=== PATIENT | female | born 1980 | race Caucasian/White ===

== ENCOUNTER 2018-08-04 22:12 | Inpatient (IN) | payer OTHER ==
[~2018-08-04] VITALS: Ht 152.4 cm; Wt 92.4 kg
[2018-08-04] MEDS ORDERED: ASPIRIN 300 MG SUPP PR STA (22:28)
[2018-08-04] MEDS ORDERED: SOD CHLORIDE 0.9% 500 ML IV STA (22:28)
[2018-08-04] MEDS ORDERED: LORAZEPAM 2 MG INJ IV ONE (22:30)
[2018-08-04] MEDS ORDERED: PROPOFOL 100 ML IV STA (22:31)
[2018-08-04] MEDS ORDERED: MIDAZOLAM (DRIP) 50 mg/50 mL 50 ML IV STA (22:31)
[2018-08-04] MEDS ORDERED: LORAZEPAM 2 MG INJ ONE (22:31)
--- NOTE | 2018-08-04 22:57 | ERD ---
ER Documentation Chief Complaint Chief Complaint BIBA WITH ROSC. BVM IN PROGRESS, IO IN RIGHT LE. HPI 38-year-old woman brought in by EMS from home after collapsing in the kitchen, EMS state her initial rhythm was ventricular fibrillation, she required 2 rounds of cardioversion and intraosseous epinephrine and regained spontaneous circulation at the scene. Her who was later at the bedside stated she had chest pain for most of the day today. She does have a history of diabetes mellitus, hypertension, obesity, and "heart problems". She has had no recent fevers or chills, no vomiting or diarrhea, no complaints of shortness of breath. Patient was transported here mostly unresponsive without further complications. ROS All systems reviewed and are negative except as per history of present illness. Allergies Allergies: Coded Allergies: Unknown: Unable to obtain (Unverified , 08/04/18) FmHx Family History: diabetes Physical Exam Vitals Vital Signs Date Temp Pulse Resp B/P (MAP) Pulse Ox O2 O2 Flow FiO2 Time Delivery Rate 08/04/18 107 17 99 50 22:33 08/04/18 99.5 135 17 132/98 99 22:12 (109) Physical Exam GENERAL: Well-developed, obese, appears hydrated, unresponsive, afebrile HEENT: Moist mucous membranes, pink conjunctiva, no cervical spine tenderness or step-off tenderness NEURO: Eyes closed, pupils equal round reactive to light, unresponsive, no facial asymmetry CARDIAC: Tachycardic and regular, no murmurs rubs or gallops LUNGS: Clear bilaterally no wheezing crackles or stridor ABDOMEN: Soft nontender, no guarding, no rigidity, no rebound, no psoas sign no obturator sign. SKIN: Warm and dry to touch, no abrasions, contusions, or hematomas, no lacerations, no ecchymosis, no target lesions, and without ulcers EXTREMITIES: No clubbing cyanosis 1+ pitting edema in the lower extremities bilaterally, calves are bilaterally symmetrical PSYCH: Unable to assess Result Diagram: 08/04/186 08/04/186 Results 24 hrs Laboratory Tests Test 08/04/18 22:26 White Blood Count 9.2 10^3/ul Red Blood Count 3.94 10^6/ul Hemoglobin 11.1 g/dl Hematocrit 34.9 % Mean Corpuscular Volume 88.6 fl Mean Corpuscular Hemoglobin 28.2 pg Mean Corpuscular Hemoglobin Concent 31.8 g/dl Red Cell Distribution Width 13.1 % Platelet Count 158 10^3/UL Mean Platelet Volume 13.1 fl Immature Granulocytes % 3.900 % Neutrophils % % Segmented Neutrophils % (Manual) 17 % Lymphocytes % % Lymphocytes % (Manual) 75 % Monocytes % % Monocytes % (Manual) 5 % Eosinophils % % Eosinophils % (Manual) 1 % Basophils % % Basophils % (Manual) 2 % Nucleated Red Blood Cells % 0.0 /100WBC Immature Granulocytes # 0.360 10^3/ul Neutrophils # 10^3/ul Lymphocytes (Manual) 6.9 10^3/ul Lymphocytes # 10^3/ul Monocytes # 10^3/ul Monocytes # (Manual) 0.4 10^3/ul Eosinophils # 10^3/ul Basophils # 10^3/ul Basophils # (Manual) 0.1 10^3/ul Nucleated Red Blood Cells # 10^3/ul Platelet Estimate NORMAL Anisocytosis 1+ Microcytosis 1+ Prothrombin Time 13.5 Sec Prothrombin Time Ratio 1.1 INR International Normalized Ratio 1.02 Activated Partial Thromboplast Time 41.4 Sec Sodium Level 137 mmol/L Potassium Level 4.7 mmol/L Chloride Level 110 mmol/L Carbon Dioxide Level 11 mmol/L Anion Gap 16 Blood Urea Nitrogen 31 mg/dl Creatinine 1.75 mg/dl Est Glomerular Filtrat Rate mL/min 32 mL/min Glucose Level 268 mg/dl Calcium Level 8.7 mg/dl Total Bilirubin 0.1 mg/dl Direct Bilirubin 0.00 mg/dl Indirect Bilirubin 0.1 mg/dl Aspartate Amino Transf (AST/SGOT) 199 IU/L Alanine Aminotransferase (ALT/SGPT) 267 IU/L Alkaline Phosphatase 97 IU/L Troponin I 0.140 ng/ml B-Type Natriuretic Peptide 1240 PG/ML Total Protein 6.1 g/dl Albumin 3.1 g/dl Globulin 3.00 g/dl Albumin/Globulin Ratio 1.03 Lipase 169 U/L Current Medications Medications Dose Sig/Kerline Start Time Status Last (Trade) Ordered Route PRN Stop Time Admin Dose Reason Admin Sodium 500 ml @ Q1H STAT 08/04/18 DC 08/04/18 Chloride 500 mls/hr IV 22:28 22:28 08/04/18 23:27 Aspirin 300 mg ONCE STAT 08/04/18 DC 08/04/18 (Aspirin) MT 22:28 22:48 08/04/18 22:31 Lorazepam 2 mg ONCE ONCE 08/04/18 DC 08/04/18 (Ativan) IV 22:30 22:28 08/04/18 22:31 Lorazepam 2 mg STK-MED 08/04/18 DC (Ativan) ONCE .ROUTE 22:31 08/04/18 22:32 Propofol 100 ml @ ONCE STAT 08/04/18 08/04/18 1.089 mls/ IV 22:31 22:59 hr 08/08/18 18:20 Midazolam 50 ml @ 3 ONCE STAT 08/04/18 HCl mls/hr IV 22:31 08/05/18 15:10 Heparin 10,000 unit STK-MED 08/04/18 DC Sodium ONCE .ROUTE 22:58 (Porcine) 08/04/18 22:59 (Heparin (1000 Units/ml)) Lidocaine 20 ml STK-MED 08/04/18 DC (Xylocaine ONCE .ROUTE 22:58 1% (Mdv) 20 08/04/18 22:59 ml) Iodixanol 100 ml STK-MED 08/04/18 DC (Visipaque ONCE .ROUTE 22:58 Locm) 08/04/18 22:59 Heparin 1,500 ml @ STK-MED 08/04/18 DC Sodium/ ud ONCE .ROUTE 22:58 Sodium 08/04/18 22:59 Chloride Fentanyl 100 mcg STK-MED 08/04/18 DC (Sublimaze) ONCE .ROUTE 22:58 08/04/18 22:59 Midazolam 2 mg STK-MED 08/04/18 DC HCl ONCE .ROUTE 22:58 (Versed) 08/04/18 22:59 Verapamil 5 mg STK-MED 08/04/18 DC HCl ONCE .ROUTE 22:58 (Verapamil) 08/04/18 22:59 1,000 mcg STK-MED 08/04/18 DC Nitroglycerin ONCE .ROUTE 22:59 08/04/18 23:00 (Nitroglyceri n (Intracoronar y)) 250 ml @ TITRATE IV 08/04/18 Norepinephrin 1.875 mls/ 23:15 e hr Verapamil 5 mg STK-MED 08/04/18 DC HCl ONCE .ROUTE 23:09 (Verapamil) 08/04/18 23:10 Eptifibatide 20 ml @ ud STK-MED 08/04/18 DC ONCE .ROUTE 23:46 08/04/18 23:47 Eptifibatide 100 ml @ ud STK-MED 08/04/18 DC ONCE IV 23:46 08/04/18 23:47 Ticagrelor 90 mg STK-MED 08/04/18 DC (Brilinta) ONCE .ROUTE 23:46 08/04/18 23:47 Procedures/MDM IV line was established patient was placed on monitoring analyst rhythm strip revealed a sinus tachycardia at 120 bpm with upright P and T waves. Patient was afebrile. EMS EKG, read by me reveals a sinus tachycardia at 160 bpm, normal axis, right ventricular conduction delay with 1 mm elevations in V3 through V5 concerning for acute ischemia. Endotracheal Intubation by me: Pre assessment performed. See preceding note for details. Pre-oxygenation performed with 100% oxygen RSI: Performed w/o complication or hypoxic events. Medications as ordered. Blade: 4.0 Keven ET Tube: 7.5 cm Depth: 21 cm at the lip Intubation confirmed by colorimetric CO2, equal breath sounds, quiet over the stomach. Code STEMI was immediately called Chest X-ray 1V Interpreted by me: 3 cm above the marisabel ET tube. Normal soft tissue, No pneumothorax. Positive cardiomegaly EKG performed, read by me revealed a sinus tachycardia at 134 bpm, normal axis, narrow QRS complex, no concerning ST elevations or depressions noted. EKG number 2, 15 minutes later revealed a sinus tachycardia at 108 bpm, normal axis, narrow QRS complex, no concerning ST elevations or depressions noted I administered 500 cc normal saline IV and IV sedation with Versed. Patient also received aspirin 300 mg per rectum for cardioprotective measures CBC was normal, electrolytes revealed acute kidney injury with a BUN/creatinine of 31/1.8, liver function tests were normal, troponin positive at 0.1, BNP elevated I spoke to manager continuous improvement Dr. Rashid who agreed to emergent PCI Critical Care: Time: 40 minutes, this was time separate from other billable procedures. Treatments/Evaluations: Close monitoring and treatment of unstable vital signs, cardiorespiratory, and neurologic status, while maintaining tight balance of fluid, respiratory, and cardiac interventions. Patient transported to the [facility] Claims [facility] and will be admitted ICU Departure Diagnosis: Primary Impression: Cardiac arrest with ventricular fibrillation Additional Impressions: STEMI (ST elevation myocardial infarction) Involved coronary artery: LAD coronary artery Qualified Codes: I21.02 - ST elevation (STEMI) myocardial infarction involving left anterior descending coronary artery Signs of return of spontaneous circulation Condition: Critical HARPAL AGGARWAL MD Aug 04, 2018 22:57
[2018-08-04] MEDS ORDERED: MIDAZOLAM 1 MG/ML 2 ML INJ ONE (22:58)
[2018-08-04] MEDS ORDERED: IODIXANOL LOCM 100 ML BTL ONE (22:58)
[2018-08-04] MEDS ORDERED: LIDOCAINE 1% (MDV) 20 ML INJ ONE (22:58)
[2018-08-04] MEDS ORDERED: HEPARIN 1000 UNITS/ML 10 ML INJ ONE (22:58)
[2018-08-04] MEDS ORDERED: FENTAnyl 50 MCG/ML VIAL ONE (22:58)
[2018-08-04] MEDS ORDERED: VERAPAMIL 5 MG INJ ONE ×2 (22:58→23:09)
[2018-08-04] MEDS ORDERED: NITROGLYCERIN (IC) 100 MCG/ML INJ ONE (22:59)
[2018-08-04] MEDS ORDERED: SOD CHLORIDE 0.9% 1,000 ML IV SCH (23:09)
[2018-08-04] MEDS ORDERED: EPTIFIBATIDE 100 ML IV SCH (23:09)
[2018-08-04] MEDS ORDERED: EPTIFIBATIDE 20 ML ONE (23:46)
[2018-08-04] MEDS ORDERED: EPTIFIBATIDE 100 ML IV ONE (23:46)
[2018-08-04] MEDS ORDERED: TICAGRELOR 90 MG TABLET ONE (23:46)
[2018-08-05] VITALS (93 sets, daily range): BP systolic 82–203; BP diastolic 60–125; PULSE 60–117; RESP 0–33
--- NOTE | 2018-08-05 00:33 | OPR ---
Date/Time of Note Date/Time of Note DATE: 08/05/18 TIME: 00:06 Operative Report Procedure Date: Aug 05, 2018 Preoperative Diagnosis VF cardiac arrest. Postoperative Diagnosis severe CAD Operation/Procedure Performed PCI LAD Surgeon see signature line Scout Sniper n/a Anesthesia Type: moderate sedation Estimated Blood Loss: minimal Transfusion none Specimen NONE Grafts/Implants none Complications none Procedure Description Bath Steward/Stewardess: Lois Rashid MD Indication: 38-year-old female who was brought into the emergency room after a V. fib cardiac arrest. Emergent left heart cath coronary angiogram and possible PCI was recommended Procure performed: #1 EMERGENT left heart catheterization and selective right and left coronary angiogram #2 Right femoral angiogram 3. Successful PTCA and stenting of proximal and mid left anterior descending artery using a 2.75 x 28 mm Synergy drug-eluting stent 4. Successful PTCA of the large first diagonal 5. Thrombectomy of the left anterior descending artery using a Pronto device Findings: 1. Left main: is moderate size with about 10% stenosis 2. LAD: Is small to moderate and it is 100% occluded proximally /MID. After successful PCI no significant residual stenosis was seen at site of the stent. Diagonal 1 is a moderate size vessel with about 90% ostial and proximal stenosis. After successful angioplasty of this lesion less than 10% residual stenosis noted 3. Left circumflex artery: is nondominant. it is small. Has subtotal distal stenosis. OM1 has about 90% stenosis proximally 4. RCA: is large and dominant. it has 90 % stenosis extremity. Ostial of the PDA also has significant stenosis probably more than 70% 5. LV EDP is 28 with no significant gradient across the aortic valve Procedure in detail: Written informed consent with obtained after risks benefits and alternatives discussed with the patient's in detail in detail. risks including but not limited to risk of infection vascular complications, bleeding complications, CO stroke arrhythmia renal failure at even were discussed with the patient in detail. Patient was brought into the cardiac laborer shaft sinking urgently and placed in supine position. Right and left groin area was prepped and draped in regular sterile fashion and then he was in anesthetized using 1% lidocaine. Right femoral artery was cannulated and using modified seldinger technique a 6 Turkmen sheath was placed in the femoral artery. JL4 guiding catheter was advanced to engage the left main coronary artery angiographic view was obtained. JR4 catheter was advanced and engaged into the right coronary artery and angiographic view was obtained. At this time we decided to perform PCI of the left anterior descending artery, she appears to be the culprit lesion. A JL4 guiding catheter was advanced to engage the left main coronary artery. BMW wire was used and advanced across the lesion and placed distal to the lesion. I used a 2.5 x 12 mm balloon which was placed across the lesion and predilated the vessel. Then a Pronto was used and thrombectomy was done. A 2.0x20 mm balloon was used and proximal and mid LAD was dilated. Angiography was obtained at this time KRISSY-3 flow was noted. Diagonal left also appears to have significant stenosis. Another BMW was used to cross into the diagonal. The same 2 oh by 20 mm balloon was used multiple times inflated at the ostium and proximal diagonal. Then I used a 2.75 x 28 mm Synergy drug-eluting stent which was placed across the LAD lesion and deployed at 14 Orlin. Final angiographic view was obtained which showed KRISSY-3 flow no evidence of dissection and no significant residual stenosis at the site of the stent. Then a pigtail was advanced to engage the left ventricle hemodynamics as recorded by pullback aortic pressure was measured. Patient tolerated the procedure well with no complication. Patient is to be transferred to ICU in stable condition. Femoral angiogram was performed contrast used: 90 cc Visipaque Conclusions: Successful PTCA , thrombectomy stenting of the proximal and mid left anterior descending artery from 100% occlusion to no significant residual stenosis using a 2.75 x 28 mm Synergy drug-eluting stent. Recommendations: Aggressive medical therapy. aspirin indefinitely dual antiplatlet therapy with aspirin and Brilinta ICU care Stage PCI of the left circumflex artery and right coronary artery at a later time if patient neurologically remained stable. LOIS RASHID MD [facility] LOIS RASHID MD Aug 05, 2018 00:33
[2018-08-05] MEDS: morphine 2 MG INJ IV PRN (00:55)
[2018-08-05] MEDS: ACCU-CHEK XX SCH ×41 (01:30→21:00)
[2018-08-05] MEDS ORDERED: INSULIN HUMAN REGULAR 100 UNIT in SOD CHLORIDE 0.9% 99 ML IV SCH ×2 (01:30→12:00)
[2018-08-05] MEDS ORDERED: DEXTROSE 50% 50 ML SYRINGE IV PRN ×8 (01:30→12:00)
--- NOTE | 2018-08-05 01:30 | CONS ---
Assessment/Plan Assessment/Plan Hospital Course (Demo Recall) 1. V. fib cardiac arrest 2. Acute myocardial infarction 3. Status post emergent PCI of the 100% occluded LAD as well as PTCA of the diagonal 4. Diabetes 5. Respiratory failure status post intubation on the vent 6. Hypertension 7. Renal failure possibly acute on chronic 8. Likely history of congestive heart failure 9. Dyslipidemia 10. Encephalopathy 11. Morbid obesity Recommendations: Patient will be started on aspirin and Brilinta Integrilin for the next 12 hours We will repeat the labs in the morning Sheath to be removed in the morning if stable. We will use the arterial sheath for a line for now Insulin drip Vent support respiratory care as per internal medicine and pulmonary consultants I will start the patient on Coreg IV fluid for now. Monitor renal function Continue with ICU care More than 40 minutes of critical care time was for management treatment is critically patient excluding any procedures Thank you for his referral. We will continue to follow along with you LOIS JOHNSON MD [facility] Consultation Date/Type/Reason Admit Date/Time Date of Consultation: Aug 05, 2018 Type of Consult Cardiology Reason for Consultation Cardiac arrest Requesting Provider: HARPAL AGGARWAL MD Date/Time of Note DATE: 08/05/18 TIME: 01:21 Hx of Present Illness Emergent interventional cardiology consultation note/critical care note Chief complaint: V. fib cardiac arrest Reason for consult: V. fib cardiac arrest History of present illness: Thank you for this referral. History was obtained from discussion with the physicians and staff including ER physician. From discussion multiple family members including sister and mother and father. Patient herself is intubated This is a 38-year-old female with history of hypertension some sort of possible heart problem although details not clear who apparently has had chest pain on and off of mostly exertional over the past few days to weeks. Today patient apparently was at home and is to dog and suddenly passed out. Paramedics were called initial rhythm apparently was V. fib. Patient was cardi overted and brought into the emergency room. In the emergency room she was intubated. Code STEMI was activated. I got a call at 10:43 PM by nursing team supervisor that the hospital was looking for an animal nurse who can be available for emergency evaluation. Patient was seen by myself in the Repack Room Worker. Patient intubated on the vent. Patient underwent emergent cardiac catheterization by myself which showed multivessel severe coronary artery disease. LAD was proximally/at the mid level 100% occluded which appeared to be the culprit lesion which was successfully stented patient has been brought back to intensive care unit. Blood pressure has remained stable to high. Patient has been moving around at least on the left side No history could be obtained from the patient Allergies: No known drug allergies per family history Medications were reviewed : Which include multiple blood pressure medication including Coreg 25 twice daily lisinopril 40 hydralazine Procardia Lasix 40 twice daily Family history: Mother with hypertension. Grandparents with heart attack Social history: Lives with the family is does not smoke or drink Past medical history: Potential morbid obesity Per family's report patient does not have diabetes or cholesterol issues Review of system: Patient denies all others except for above-mentioned Past Medical History Medications Current Medications Propofol 100 ml @ 1.089 mls/ hr ONCE STAT IV Last administered on 08/04/18at 22:59; Admin Dose 1.089 MLS/HR; Start 08/04/18 at 22:31; Stop 08/08/18 at 18:20 Midazolam HCl 50 ml @ 3 mls/hr ONCE STAT IV ; Start 08/04/18 at 22:31; Stop 08/05/18 at 15:10 Norepinephrine 250 ml @ 1.875 mls/ hr TITRATE IV ; Start 08/04/18 at 23:15 Allergies: Coded Allergies: Unknown: Unable to obtain (Unverified , 08/04/18) Exam/Review of Systems Vital Signs Vitals Vital Signs Date Temp Pulse Resp B/P (MAP) Pulse Ox O2 O2 Flow FiO2 Time Delivery Rate 08/04/18 107 17 99 50 22:33 08/04/18 99.5 132/98 22:12 (109) Exam Exam General: Obese female started with intubation on the vent HEENT: NC/AT. pupils are equal. round. NECK: . no stridor. CV: RRR. systolic murmur; no gallop or rubs. PULM: no wheezing or rhonchi. GI: Obese SOFT, NT, ND, no rebound or guarding Extremity: trace B/L LE edema. no clubbing. neuro: Sedated but moves her extremities Psych: Agitated t rectal: deferred As: Right femoral sheath in place EKGs was reviewed. Labs Result Diagram: 08/04/18 2226 08/04/18 2226 Results 24hrs Laboratory Tests Test 08/04/18 22:26 White Blood Count 9.2 Red Blood Count 3.94 L Hemoglobin 11.1 L Hematocrit 34.9 L Mean Corpuscular Volume 88.6 Mean Corpuscular Hemoglobin 28.2 L Mean Corpuscular Hemoglobin Concent 31.8 L Red Cell Distribution Width 13.1 Platelet Count 158 Mean Platelet Volume 13.1 H Immature Granulocytes % 3.900 H Neutrophils % Segmented Neutrophils % (Manual) 17 L Lymphocytes % Lymphocytes % (Manual) 75 H Monocytes % Monocytes % (Manual) 5 Eosinophils % Eosinophils % (Manual) 1 Basophils % Basophils % (Manual) 2 Nucleated Red Blood Cells % 0.0 Immature Granulocytes # 0.360 H Neutrophils # Lymphocytes (Manual) 6.9 H Lymphocytes # Monocytes # Monocytes # (Manual) 0.4 Eosinophils # Basophils # Basophils # (Manual) 0.1 H Nucleated Red Blood Cells # Platelet Estimate NORMAL Anisocytosis 1+ Microcytosis 1+ Prothrombin Time 13.5 Prothrombin Time Ratio 1.1 INR International Normalized Ratio 1.02 Activated Partial Thromboplast Time 41.4 H Sodium Level 137 Potassium Level 4.7 Chloride Level 110 Carbon Dioxide Level 11 L Anion Gap 16 H Blood Urea Nitrogen 31 H Creatinine 1.75 H Est Glomerular Filtrat Rate mL/min 32 L Glucose Level 268 H Calcium Level 8.7 Total Bilirubin 0.1 L Direct Bilirubin 0.00 Indirect Bilirubin 0.1 Aspartate Amino Transf (AST/SGOT) 199 H Alanine Aminotransferase (ALT/SGPT) 267 H Alkaline Phosphatase 97 Troponin I 0.140 *H B-Type Natriuretic Peptide 1240 H Total Protein 6.1 Albumin 3.1 L Globulin 3.00 Albumin/Globulin Ratio 1.03 Lipase 169 Medications Medications Current Medications Propofol 100 ml @ 1.089 mls/ hr ONCE STAT IV Last administered on 08/04/18at 22:59; Admin Dose 1.089 MLS/HR; Start 08/04/18 at 22:31; Stop 08/08/18 at 18:20 Midazolam HCl 50 ml @ 3 mls/hr ONCE STAT IV ; Start 08/04/18 at 22:31; Stop 08/05/18 at 15:10 Norepinephrine 250 ml @ 1.875 mls/ hr TITRATE IV ; Start 08/04/18 at 23:15 LOIS JOHNSON MD Aug 05, 2018 01:30
[2018-08-05] MEDS: NITROGLYCERIN 50 MG/D5W (PMX) 250 ML IV SCH ×2 (01:49→14:22)
[2018-08-05] MEDS: PROPOFOL 100 ML IV SCH ×5 (03:44→23:06)
--- NOTE | 2018-08-05 03:52 | HP ---
Date/Time of Note Date/Time of Note DATE: 08/05/18 TIME: 03:37 Assessment/Plan VTE Prophylaxis Pharmacological prophylaxis: heparin Lines/Catheters IV Catheter Type (from Nrs): Peripheral IV Assessment/Plan Assessment/Plan 1. V-fib cardiac arrest secondary to STEMI -On the field, she was defibrillated x 2 and given epinephrine before ROSC -Emergently taken to [facility] and now she is status post Successful PTCA and stenting of proximal and mid LAD, PTCA of the large first diagonal and thrombectomy of the LAD -Continue vent support. Pulmonary to manage. ABG in a.m. -Continue cardiac medications including dual antiplatelets, statin and beta-bl ocker -Follow-up 2D echo result and cardiology Recs 2. STEMI: See #1 3. Presumed HUSEYIN -Hydrate with IVF -Renal ultrasound -Urine electrolytes -Nephrology consult 4. Hypertension: Currently on a nitro drip. BP within goal -Continue Coreg. Add ACEI as BP tolerates 5. Diabetes: Check A1c -Continue insulin gtt 6. Elevated transaminases: -Obtain RUQ ultrasound 7. Metabolic acidosis: Secondary to #1 and #3 -PH 7.3. Currently intubated. No indication for a bicarb at this time Result Diagram: 08/04/18 2226 08/04/18 2226 Results 24hrs Laboratory Tests Test 08/04/18 22:26 08/05/18 00:50 08/05/18 01:24 08/05/18 02:21 White Blood Count 9.2 Red Blood Count 3.94 L Hemoglobin 11.1 L Hematocrit 34.9 L Mean Corpuscular 88.6 Volume Mean Corpuscular 28.2 L Hemoglobin Mean Corpuscular 31.8 L Hemoglobin Concen t Red Cell 13.1 Distribution Width Platelet Count 158 Mean Platelet 13.1 H Volume Immature 3.900 H Granulocytes % Neutrophils % Segmented 17 L Neutrophils % (Manual) Lymphocytes % Lymphocytes % 75 H (Manual) Monocytes % Monocytes % 5 (Manual) Eosinophils % Eosinophils % 1 (Manual) Basophils % Basophils % 2 (Manual) Nucleated Red 0.0 Blood Cells % Immature 0.360 H Granulocytes # Neutrophils # Lymphocytes 6.9 H (Manual) Lymphocytes # Monocytes # Monocytes # 0.4 (Manual) Eosinophils # Basophils # Basophils # 0.1 H (Manual) Nucleated Red Blood Cells # Platelet Estimate NORMAL Anisocytosis 1+ Microcytosis 1+ Prothrombin Time 13.5 Prothrombin Time 1.1 Ratio INR International 1.02 Normalized Ratio Activated 41.4 H Partial Thrombopl ast Time Sodium Level 137 Potassium Level 4.7 Chloride Level 110 Carbon Dioxide 11 L Level Anion Gap 16 H Blood Urea 31 H Nitrogen Creatinine 1.75 H Est Glomerular 32 L Filtrat Rate mL/min Glucose Level 268 H Calcium Level 8.7 Total Bilirubin 0.1 L Direct Bilirubin 0.00 Indirect 0.1 Bilirubin Aspartate Amino 199 H Transf (AST/SGOT) Alanine 267 H Aminotransferase (ALT/SGPT) Alkaline 97 Phosphatase Troponin I 0.140 *H B-Type 1240 H Natriuretic Peptide Total Protein 6.1 Albumin 3.1 L Globulin 3.00 Albumin/Globulin 1.03 Ratio Lipase 169 Blood Gas Blood arterial Specimen Source Arterial Blood 08/05/2018 1:30:3 Date Drawn 1 AM Arterial Blood pH 7.312 L (Temp corrected) Arterial Blood 32.4 L pCO2 (Temp correct) Arterial Blood 206.0 H pO2 (Temp corrected) Arterial Blood 16.0 L HCO3 Arterial Blood -9.1 L Base Excess Arterial Blood 98.8 H Oxygen Saturation Dajuan Test ACCEPTAB Arterial Blood Right Radial Gas Puncture Site Arterial 0.2 Blood Carboxyhemo globin Arterial Blood 0.3 Methemoglobin Blood Gas A-a O2 114.1 H Differential Oxyhemoglobin 98.3 Percent Blood Gas 37.0 Temperature Blood Gas 16.0 Respiration Rate Blood Gas Actual 16 Respiration Rate Blood Gas VENT - AC Modality FiO2 50.0 Blood Gas Tidal 500.0 Volume Blood Gas Low 5.0 PEEP Setting Blood Gas 20.0 Inspiratory Pressure Blood Gas MR Notified Whom Blood Gas 08/05/2018 1:38:3 Notified Time 4 AM Bedside Glucose 151 115 Test 08/05/18 02:58 Bedside Glucose 110 HPI/ROS Admit Date/Time Admit Date/Time Hx of Present Illness This is a 38-year-old female with a history of hypertension and diabetes who was brought to the ER after patient had a cardiac arrest. Currently she is intubated and as such information gathered from chart review and from the ER physician. Reportedly, patient has been complaining of chest pain the whole day. All of a sudden, she passed out while she was at home. When EMS arrived, she was in V-fib cardiac arrest. ROSC after 2 rounds of epinephrine and defib x 2. Patient was found to be in STEMI. She was emergently taken to the [facility] and now she is status post Successful PTCA and stenting of proximal and mid LAD, PTCA of the large first diagonal and thrombectomy of the LAD. Her initial troponin was 0.140. Lab also showing metabolic acidosis with a bicarb of 11. Creatinine 1.75. Glucose almost 270. Hemoglobin 11. Aminotransferases in the 200s range. PMH/Family/Social Past Medical History Medications Current Medications Propofol 100 ml @ 1.089 mls/ hr ONCE STAT IV Last administered on 08/04/18at 22:59; Admin Dose 1.089 MLS/HR; Start 08/04/18 at 22:31; Stop 08/08/18 at 18:20 Midazolam HCl 50 ml @ 3 mls/hr ONCE STAT IV Last administered on 08/05/18at 01:09; Admin Dose 10 MLS/HR; Start 08/04/18 at 22:31; Stop 08/05/18 at 15:10 Norepinephrine 250 ml @ 1.875 mls/ hr TITRATE IV ; Start 08/04/18 at 23:15 Aspirin (Halfprin) 81 mg DAILY PO ; Start 08/05/18 at 09:00 Ticagrelor (Brilinta) 90 mg BID PO ; Start 08/05/18 at 09:00 Eptifibatide 100 ml @ 2.318 mls/ hr Q24H IV Last administered on 08/05/18at 01:13; Admin Dose 2.318 MLS/HR; Start 08/04/18 at 23:09; Stop 08/05/18 at 11:08 Morphine Sulfate (morphine) 1 mg Q1H PRN IV PAIN Last administered on 08/05/18at 00:55; Admin Dose 1 MG; Start 08/04/18 at 23:30 Docusate Sodium (Colace) 100 mg BID PO ; Start 08/05/18 at 09:00 Carvedilol (Coreg) 12.5 mg QID PO Last administered on 08/05/18at 01:20; Admin Dose 12.5 MG; Start 08/04/18 at 23:30 Atorvastatin Calcium (Lipitor) 80 mg DAILY@21 PO ; Start 08/05/18 at 21:00 Sodium Chloride 1,000 ml @ 75 mls/hr [id number] IV Last administered on 08/05/18at 01:10; Admin Dose 75 MLS/HR; Start 08/04/18 at 23:09; Stop 08/05/18 at 12:28 Diagnostic Test (Pha) (Accu-Chek) 1 ea Q1H XX ; Start 08/05/18 at 01:30 Insulin Human Regular 100 unit/ Sodium Chloride 100 ml @ 0 mls/hr PER PROTOCOL IV Last administered on 08/05/18at 01:37; Admin Dose 1.5 MLS/HR; Start 08/05/18 at 01:30 Miscellaneous Information (* Miscellaneous Pharmacy Order) Treatment of Hypoglycemia: 1.BG 51... Per protocol XX ; Start 08/05/18 at 01:30 Dextrose (D50w Syringe) 25 ml Q15M PRN IV .DECREASED GLUCOSE; Start 08/05/18 at 01:30 Dextrose (D50w Syringe) 50 ml Q15M PRN IV .DECREASED GLUCOSE; Start 08/05/18 at 01:30 Nitroglycerin/ Dextrose 250 ml @ 1.5 mls/hr TITRATE IV Last administered on 08/05/18at 01:49; Admin Dose 1.5 MLS/HR; Start 08/05/18 at 01:00 Propofol 100 ml @ 2.772 mls/ hr Q12H IV ; Start 08/05/18 at 04:00 Coded Allergies: Unknown: Unable to obtain (Unverified , 08/04/18) Past Surgical History Past Surgical Hx: other (Unknown) Family History Significant Family History: no pertinent family hx Social History Alcohol Use: none Smoking Status: Never smoker Drug Use: none Exam/Review of Systems Vital Signs Vitals Vital Signs Date Temp Pulse Resp B/P (MAP) Pulse Ox O2 O2 Flow FiO2 Time Delivery Rate 08/05/18 105 17 136/101 100 Mechanical 03:00 (113) Ventilator 08/05/18 97.4 01:00 08/05/18 50 00:47 Intake and Output 08/04/18 08/04/18 08/05/18 1515:00 23:00 07:00 IntakeIntake Total 375.7 ml OutputOutput Total 724 ml BalanceBalance -348.3 ml Exam Constitutional: other (Intubated. No acute distress noted.) Head: normocephalic, atraumatic Eyes: other (Pinpoint pupil) Respiratory: normal air movement Cardiovascular: other (Tachycardic regular rhythm) Gastrointestinal: soft Extremities: normal pulses DANIAL TUCKER MD Aug 05, 2018 03:49
[2018-08-05] MEDS ORDERED: MIDAZOLAM 1 MG/ML 2 ML INJ IV SCH (04:00)
[2018-08-05] MEDS: TICAGRELOR 90 MG TABLET PO SCH ×2 (08:50→21:20)
[2018-08-05] MEDS: DOCUSATE SODIUM 100 MG CAP PO SCH ×2 (08:52→21:00)
--- NOTE | 2018-08-05 08:55 | PN ---
Date/Time of Note Date/Time of Note DATE: 08/05/18 TIME: 08:55 Objective Vitals Vital Signs Date Temp Pulse Resp B/P (MAP) Pulse Ox O2 O2 Flow FiO2 Time Delivery Rate 08/05/18 90 16 138/84 100 Mechanical 07:15 (102) Ventilator 08/05/18 30 05:24 08/05/18 98.2 04:00 Intake and Output 08/04/18 08/04/18 08/05/18 1515:00 23:00 07:00 IntakeIntake Total 855.56 ml OutputOutput Total 984 ml BalanceBalance -128.44 ml Results Result Diagram: 08/05/18 0418 08/05/18 0418 Medications Medications Current Medications Norepinephrine 250 ml @ 1.875 mls/ hr TITRATE IV ; Start 08/04/18 at 23:15 Aspirin (Halfprin) 81 mg DAILY PO Last administered on 08/05/18at 08:53; Admin Dose 81 MG; Start 08/05/18 at 09:00 Ticagrelor (Brilinta) 90 mg BID PO Last administered on 08/05/18at 08:50; Admin Dose 90 MG; Start 08/05/18 at 09:00 Eptifibatide 100 ml @ 5.544 mls/ hr Q18H3M IV Last administered on 08/05/18at 01:13; Admin Dose 2.318 MLS/HR; Start 08/04/18 at 23:09; Stop 08/05/18 at 11:08 Morphine Sulfate (morphine) 1 mg Q1H PRN IV PAIN Last administered on 08/05/18at 00:55; Admin Dose 1 MG; Start 08/04/18 at 23:30 Docusate Sodium (Colace) 100 mg BID PO Last administered on 08/05/18at 08:52; Admin Dose 100 MG; Start 08/05/18 at 09:00 Carvedilol (Coreg) 12.5 mg QID PO Last administered on 08/05/18at 08:52; Admin Dose 12.5 MG; Start 08/04/18 at 23:30 Atorvastatin Calcium (Lipitor) 80 mg DAILY@21 PO ; Start 08/05/18 at 21:00 Sodium Chloride 1,000 ml @ 75 mls/hr [id number] IV Last administered on 08/05/18at 01:10; Admin Dose 75 MLS/HR; Start 08/04/18 at 23:09; Stop 08/05/18 at 12:28 Diagnostic Test (Pha) (Accu-Chek) 1 ea Q1H XX Last administered on 08/05/18at 08:00; Admin Dose 1 EA; Start 08/05/18 at 01:30 Miscellaneous Information (* Miscellaneous Pharmacy Order) Treatment of Hypoglycemia: 1.BG 51... Per protocol XX ; Start 08/05/18 at 01:30 Dextrose (D50w Syringe) 25 ml Q15M PRN IV .DECREASED GLUCOSE; Start 08/05/18 at 01:30 Dextrose (D50w Syringe) 50 ml Q15M PRN IV .DECREASED GLUCOSE; Start 08/05/18 at 01:30 Nitroglycerin/ Dextrose 250 ml @ 1.5 mls/hr TITRATE IV Last administered on 08/05/18at 01:49; Admin Dose 1.5 MLS/HR; Start 08/05/18 at 01:00 Propofol 100 ml @ 2.772 mls/ hr Q12H IV Last administered on 08/05/18at 03:44; Admin Dose 27.72 MLS/HR; Start 08/05/18 at 04:00 Midazolam HCl 50 ml @ 1 mls/hr TITRATE IV ; Start 08/05/18 at 07:30 Miscellaneous Information (* Miscellaneous Pharmacy Order) Discontinue current oral sulfonylur... ONCE ONCE XX ; Start 08/05/18 at 09:00; Stop 08/05/18 at 09:01; Status UNV Diagnostic Test (Pha) (Accu-Chek) 1 ea 02 XX ; Start 08/06/18 at 02:00; Status UNV Miscellaneous Information (* Miscellaneous Pharmacy Order) HYPOGLYCEMIA PROTOCOL w... ONCE ONCE XX ; Start 08/05/18 at 09:00; Stop 08/05/18 at 09:01; Status UNV Insulin Aspart (Novolog Insulin Pen) NOVOLOG *MILD* ALGORITHM Q4 SC ; Start 08/05/18 at 09:00; Status UNV Miscellaneous Information (* Miscellaneous Pharmacy Order) Discontinue all previ... ONCE ONCE XX ; Start 08/05/18 at 09:00; Stop 3/17/19 at 09:01; Status UNV Lines/Catheters IV Catheter Type: Bajwa in Place: Yes Cont'd bajwa catheter reason: terminal illness/intractable pain Assessment/Plan Hospital Course This is a short progress note as H&P was done earlier this morning. Continue current care per cardiology. Patient intubated, vital stable, nephrology has been consulted, Dr. Leos group. Tube feeds started, continue meds, monitor closely in the ICU, pulmonology to extubate patient when stable. HARPAL PEDROZA Aug 05, 2018 08:55
[2018-08-05] MEDS ORDERED: INSULIN ASPART [NOVOLOG] 3 ML PEN SC SCH (09:00)
[2018-08-05] MEDS ORDERED: GLUCAGON 1 MG INJ IM PRN (09:00)
[2018-08-05] MEDS ORDERED: Insulin NOVOLOG SS MILD Algorithm (NPO/TPN/ENTERAL FEEDS) SC SCH (09:00)
[2018-08-05] MEDS ORDERED: GLUCOSE GEL 15 GRAM TUBE PO PRN ×2 (09:00)
[2018-08-05] MEDS ORDERED: ASPIRIN (EC) 81 MG TAB PO SCH (09:00)
[2018-08-05] MEDS ORDERED: GLUCOSE GEL 15 GRAM TUBE BUCCAL PRN (09:00)
[2018-08-05] MEDS: MIDAZOLAM (DRIP) 50 mg/50 mL 50 ML IV SCH ×3 (09:00→19:22)
--- NOTE | 2018-08-05 10:26 | CONS ---
Assessment/Plan Assessment/Plan Hospital Course (Demo Recall) renal consult This is a 38-year-old female with a history of hypertension and diabetes who was brought to the ER after patient had a cardiac arrest. Reportedly, patient has been complaining of chest pain followed by syncope. When EMS arrived, she was in V-fib cardiac arrest. ROSC after 2 rounds of epinephrine and defib x 2. Patient was found to be in STEMI. She was emergently taken to the [facility] and now she is status post Successful PTCA and stenting of proximal and mid LAD, PTCA of the large first diagonal and thrombectomy of the LAD. Her initial troponin was 0.140. Lab also showing metabolic acidosis with a bicarb of 11. serum chem also showed ARF which is improving uop remains stable no fever, chills, hematuria or melena vent settings were reviewed Past Surgical History Past Surgical Hx: other (Unknown) Family History Significant Family History: no pertinent family hx Social History Alcohol Use: none Smoking Status: Never smoker Drug Use: none ROS: 13 point ROS was done and pertinent findings are in HPI Exam Constitutional: other (Intubated. No acute distress noted.) Head: normocephalic, atraumatic Eyes: other (Pinpoint pupil) Respiratory: normal air movement Cardiovascular: other (Tachycardic regular rhythm) Gastrointestinal: soft Extremities: normal pulses 1. ARF: due to intravascular volume depletion. no evidence of contrast nephropathy. will send off urine studies. continue IVF. will add acei or arb when renal function is stable 2. V-fib cardiac arrest secondary to STEMI: s/p PCI. Continue cardiac medications including dual antiplatelets, statin and beta-laura -Follow-up 2D echo result and cardiology Recs 3. Diabetes: Continue insulin gtt 4. Elevated transaminases: possible early shocked liver 5. VDRF: continue vent support. weaning per pulm Consultation Date/Type/Reason Admit Date/Time Date/Time of Note DATE: 08/05/18 TIME: 10:19 Past Medical History Medications Current Medications Norepinephrine 250 ml @ 1.875 mls/ hr TITRATE IV ; Start 08/04/18 at 23:15 Aspirin (Halfprin) 81 mg DAILY PO Last administered on 08/05/18at 08:53; Admin Dose 81 MG; Start 08/05/18 at 09:00 Ticagrelor (Brilinta) 90 mg BID PO Last administered on 08/05/18 08:50; Admin Dose 90 MG; Start 08/05/18 at 09:00 Eptifibatide 100 ml @ 5.544 mls/ hr Q18H3M IV Last administered on 08/05/18 01:13; Admin Dose 2.318 MLS/HR; Start 08/04/18 at 23:09; Stop 08/05/18 at 11:08 Morphine Sulfate (morphine) 1 mg Q1H PRN IV PAIN Last administered on 08/05/18 00:55; Admin Dose 1 MG; Start 08/04/18 at 23:30 Docusate Sodium (Colace) 100 mg BID PO Last administered on 08/05/18 08:52; Admin Dose 100 MG; Start 08/05/18 at 09:00 Carvedilol (Coreg) 12.5 mg QID PO Last administered on 08/05/18 08:52; Admin Dose 12.5 MG; Start 08/04/18 at 23:30 Atorvastatin Calcium (Lipitor) 80 mg DAILY@21 PO ; Start 08/05/18 at 21:00 Sodium Chloride 1,000 ml @ 75 mls/hr [id number] IV Last administered on 08/05/18 01:10; Admin Dose 75 MLS/HR; Start 08/04/18 at 23:09; Stop 08/05/18 at 12:28 Diagnostic Test (Pha) (Accu-Chek) 1 ea Q1H XX Last administered on 08/05/18 08:00; Admin Dose 1 EA; Start 08/05/18 at 01:30 Miscellaneous Information (* Miscellaneous Pharmacy Order) Treatment of Hypoglycemia: 1.BG 51... Per protocol XX ; Start 08/05/18 at 01:30 Nitroglycerin/ Dextrose 250 ml @ 1.5 mls/hr TITRATE IV Last administered on 08/05/18 01:49; Admin Dose 1.5 MLS/HR; Start 08/05/18 at 01:00 Propofol 100 ml @ 2.772 mls/ hr Q12H IV Last administered on 08/05/18 09:01; Admin Dose 27.72 MLS/HR; Start 08/05/18 at 04:00 Midazolam HCl 50 ml @ 1 mls/hr TITRATE IV Last administered on 3/17/19at 09:00; Admin Dose 10 MLS/HR; Start 08/05/18 at 07:30 Diagnostic Test (Pha) (Accu-Chek) 1 ea 02 XX ; Start 08/06/18 at 02:00 Insulin Aspart (Novolog Insulin Pen) (Adult SC Insulin - Mild Algorithm)... Q4 SC ; Start 08/05/18 at 09:00 Miscellaneous Information 1 ea NOTE XX ; Start 08/05/18 at 09:00 Glucose (Glutose) 15 gm Q15M PRN PO DECREASED GLUCOSE; Start 08/05/18 at 09:00 Glucose (Glutose) 22.5 gm Q15M PRN PO DECREASED GLUCOSE; Start 08/05/18 at 09:00 Dextrose (D50w Syringe) 25 ml Q15M PRN IV DECREASED GLUCOSE; Start 08/05/18 at 09:00 Dextrose (D50w Syringe) 50 ml Q15M PRN IV DECREASED GLUCOSE; Start 08/05/18 at 09:00 Glucagon (Glucagen) 1 mg Q15M PRN IM DECREASED GLUCOSE; Start 08/05/18 at 09:00 Glucose (Glutose) 15 gm Q15M PRN BUCCAL DECREASED GLUCOSE; Start 08/05/18 at 09:00 Allergies: Coded Allergies: Unknown: Unable to obtain (Unverified , 08/04/18) Past Surgical History Past Surgical Hx: other (Unknown) Social History Alcohol Use: none Smoking Status: Never smoker Drug Use: none Exam/Review of Systems Exam Vitals Vital Signs Date Temp Pulse Resp B/P (MAP) Pulse Ox O2 O2 Flow FiO2 Time Delivery Rate 08/05/18 90 16 138/84 100 Mechanical 07:15 (102) Ventilator 08/05/18 30 05:24 08/05/18 98.2 04:00 Intake and Output 08/04/18 08/04/18 08/05/18 1515:00 23:00 07:00 IntakeIntake Total 855.56 ml OutputOutput Total 984 ml BalanceBalance -128.44 ml Results Result Diagram: 08/05/18 0418 08/05/18 0418 Results 24hrs Laboratory Tests Test 08/04/18 22:26 08/05/18 00:50 08/05/18 01:24 08/05/18 02:21 White Blood Count 9.2 Red Blood Count 3.94 L Hemoglobin 11.1 L Hematocrit 34.9 L Mean Corpuscular 88.6 Volume Mean Corpuscular 28.2 L Hemoglobin Mean Corpuscular 31.8 L Hemoglobin Concen t Red Cell 13.1 Distribution Width Platelet Count 158 Mean Platelet 13.1 H Volume Immature 3.900 H Granulocytes % Neutrophils % Segmented 17 L Neutrophils % (Manual) Lymphocytes % Lymphocytes % 75 H (Manual) Monocytes % Monocytes % 5 (Manual) Eosinophils % Eosinophils % 1 (Manual) Basophils % Basophils % 2 (Manual) Nucleated Red 0.0 Blood Cells % Immature 0.360 H Granulocytes # Neutrophils # Lymphocytes 6.9 H (Manual) Lymphocytes # Monocytes # Monocytes # 0.4 (Manual) Eosinophils # Basophils # Basophils # 0.1 H (Manual) Nucleated Red Blood Cells # Platelet Estimate NORMAL Anisocytosis 1+ Microcytosis 1+ Prothrombin Time 13.5 Prothrombin Time 1.1 Ratio INR International 1.02 Normalized Ratio Activated 41.4 H Partial Thrombopl ast Time Sodium Level 137 Potassium Level 4.7 Chloride Level 110 Carbon Dioxide 11 L Level Anion Gap 16 H Blood Urea 31 H Nitrogen Creatinine 1.75 H Est Glomerular 32 L Filtrat Rate mL/min Glucose Level 268 H Calcium Level 8.7 Total Bilirubin 0.1 L Direct Bilirubin 0.00 Indirect 0.1 Bilirubin Aspartate Amino 199 H Transf (AST/SGOT) Alanine 267 H Aminotransferase (ALT/SGPT) Alkaline 97 Phosphatase Troponin I 0.140 *H B-Type 1240 H Natriuretic Peptide Total Protein 6.1 Albumin 3.1 L Globulin 3.00 Albumin/Globulin 1.03 Ratio Lipase 169 Blood Gas Blood arterial Specimen Source Arterial Blood 08/05/2018 1:30:3 Date Drawn 1 AM Arterial Blood pH 7.312 L (Temp corrected) Arterial Blood 32.4 L pCO2 (Temp correct) Arterial Blood 206.0 H pO2 (Temp corrected) Arterial Blood 16.0 L HCO3 Arterial Blood -9.1 L Base Excess Arterial Blood 98.8 H Oxygen Saturation Dajuan Test ACCEPTAB Arterial Blood Right Radial Gas Puncture Site Arterial 0.2 Blood Carboxyhemo globin Arterial Blood 0.3 Methemoglobin Blood Gas A-a O2 114.1 H Differential Oxyhemoglobin 98.3 Percent Blood Gas 37.0 Temperature Blood Gas 16.0 Respiration Rate Blood Gas Actual 16 Respiration Rate Blood Gas VENT - AC Modality FiO2 50.0 Blood Gas Tidal 500.0 Volume Blood Gas Low 5.0 PEEP Setting Blood Gas 20.0 Inspiratory Pressure Blood Gas MR Notified Whom Blood Gas 08/05/2018 1:38:3 Notified Time 4 AM Bedside Glucose 151 115 Test 08/05/18 02:58 08/05/18 03:55 08/05/18 04:18 08/05/18 05:09 Bedside Glucose 110 112 129 White Blood Count 8.9 Red Blood Count 3.62 L Hemoglobin 10.4 L Hematocrit 30.9 L Mean Corpuscular 85.4 Volume Mean Corpuscular 28.7 L Hemoglobin Mean Corpuscular 33.7 Hemoglobin Concen t Red Cell 13.1 Distribution Width Platelet Count 154 Mean Platelet 12.7 H Volume Immature 1.000 H Granulocytes % Neutrophils % 81.3 H Lymphocytes % 10.7 L Monocytes % 6.7 Eosinophils % 0.0 Basophils % 0.3 Nucleated Red 0.0 Blood Cells % Immature 0.090 H Granulocytes # Neutrophils # 7.2 Lymphocytes # 1.0 Monocytes # 0.6 Eosinophils # 0.0 Basophils # 0.0 Nucleated Red 0.0 Blood Cells # Sodium Level 136 Potassium Level 4.1 Chloride Level 112 H Carbon Dioxide 18 L Level Anion Gap 6 # Blood Urea 32 H Nitrogen Creatinine 1.25 H Est Glomerular 48 L Filtrat Rate mL/min Glucose Level 122 # Hemoglobin A1c 5.2 Calcium Level 8.2 L Magnesium Level 1.7 Total Bilirubin 0.2 Direct Bilirubin 0.00 Indirect 0.2 Bilirubin Aspartate Amino 309 H Transf (AST/SGOT) Alanine 306 H Aminotransferase (ALT/SGPT) Alkaline 110 Phosphatase Creatine Kinase 216 H Creatine Kinase 5.0 Index Creatinine Kinase 10.80 H MB (Mass) Troponin I 1.860 *H B-Type 2620 H Natriuretic Peptide Total Protein 6.1 Albumin 3.1 L Globulin 3.00 Albumin/Globulin 1.03 Ratio Triglycerides 274 H Level Cholesterol Level 223 H LDL Cholesterol, 135 Calculated HDL Cholesterol 33 L Cholesterol/HDL 6.7 Ratio Thyroid 0.894 Stimulating Hormone (TSH) Free Thyroxine 2.23 Test 08/05/18 06:11 08/05/18 08:59 Bedside Glucose 123 124 Medications Medication Current Medications Norepinephrine 250 ml @ 1.875 mls/ hr TITRATE IV ; Start 08/04/18 at 23:15 Aspirin (Halfprin) 81 mg DAILY PO Last administered on 08/05/18at 08:53; Admin Dose 81 MG; Start 08/05/18 at 09:00 Ticagrelor (Brilinta) 90 mg BID PO Last administered on 08/05/18 08:50; Admin Dose 90 MG; Start 08/05/18 at 09:00 Eptifibatide 100 ml @ 5.544 mls/ hr Q18H3M IV Last administered on 08/05/18at 01:13; Admin Dose 2.318 MLS/HR; Start 08/04/18 at 23:09; Stop 08/05/18 at 11:08 Morphine Sulfate (morphine) 1 mg Q1H PRN IV PAIN Last administered on 08/05/18 00:55; Admin Dose 1 MG; Start 08/04/18 at 23:30 Docusate Sodium (Colace) 100 mg BID PO Last administered on 08/05/18 08:52; Admin Dose 100 MG; Start 08/05/18 at 09:00 Carvedilol (Coreg) 12.5 mg QID PO Last administered on 08/05/18 08:52; Admin Dose 12.5 MG; Start 08/04/18 at 23:30 Atorvastatin Calcium (Lipitor) 80 mg DAILY@21 PO ; Start 08/05/18 at 21:00 Sodium Chloride 1,000 ml @ 75 mls/hr [id number] IV Last administered on 08/05/18 01:10; Admin Dose 75 MLS/HR; Start 08/04/18 at 23:09; Stop 08/05/18 at 12:28 Diagnostic Test (Pha) (Accu-Chek) 1 ea Q1H XX Last administered on 08/05/18at 08:00; Admin Dose 1 EA; Start 08/05/18 at 01:30 Miscellaneous Information (* Miscellaneous Pharmacy Order) Treatment of Hypoglycemia: 1.BG 51... Per protocol XX ; Start 08/05/18 at 01:30 Nitroglycerin/ Dextrose 250 ml @ 1.5 mls/hr TITRATE IV Last administered on 08/05/18at 01:49; Admin Dose 1.5 MLS/HR; Start 08/05/18 at 01:00 Propofol 100 ml @ 2.772 mls/ hr Q12H IV Last administered on 08/05/18at 09:01; Admin Dose 27.72 MLS/HR; Start 08/05/18 at 04:00 Midazolam HCl 50 ml @ 1 mls/hr TITRATE IV Last administered on 08/05/18at 09:00; Admin Dose 10 MLS/HR; Start 08/05/18 at 07:30 Diagnostic Test (Pha) (Accu-Chek) 1 ea 02 XX ; Start 08/06/18 at 02:00 Insulin Aspart (Novolog Insulin Pen) (Adult SC Insulin - Mild Algorithm)... Q4 SC ; Start 08/05/18 at 09:00 Miscellaneous Information 1 ea NOTE XX ; Start 08/05/18 at 09:00 Glucose (Glutose) 15 gm Q15M PRN PO DECREASED GLUCOSE; Start 08/05/18 at 09:00 Glucose (Glutose) 22.5 gm Q15M PRN PO DECREASED GLUCOSE; Start 08/05/18 at 09:00 Dextrose (D50w Syringe) 25 ml Q15M PRN IV DECREASED GLUCOSE; Start 08/05/18 at 09:00 Dextrose (D50w Syringe) 50 ml Q15M PRN IV DECREASED GLUCOSE; Start 08/05/18 at 09:00 Glucagon (Glucagen) 1 mg Q15M PRN IM DECREASED GLUCOSE; Start 08/05/18 at 09:00 Glucose (Glutose) 15 gm Q15M PRN BUCCAL DECREASED GLUCOSE; Start 08/05/18 at 09:00 BINH MATTHEWS DO Aug 05, 2018 10:26
[2018-08-05] MEDS ORDERED: MEPERIDINE 25 MG INJ IV PRN ×2 (11:00→17:00)
[2018-08-05] MEDS ORDERED: ACETAMINOPHEN 650 MG SUPP PR PRN (11:00)
--- NOTE | 2018-08-05 11:08 | CONS ---
Assessment/Plan Assessment/Plan Assessment/Plan (Daily) IMP: 1. Ventricular Fibrillation Arrest--s/p ROSC 2/2 STEMI s/p PCI 2. STEMI 3. 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 HUSEYIN--likely ATN 5. Ischemic hepatopathy--2/2 arrest 6. Metabolic acidosis--2/2 arrest RECS: 1. Initiate induced hypothermia protocol 2. Avoid benzo's 3. Vent support--V-AC; VT 450; PEEP 5; FiO2 .30 4. Post-PCI management per Cards 5. Follow renal function and liver tests 6. Follow-up TTE 7. DVT and GI prophylaxis 8. Prognosis guarded Consultation Date/Type/Reason Admit Date/Time Date of Consultation: Aug 05, 2018 Type of Consult Pulm/CC Reason for Consultation Auto-consult on intubated post-arrest patient in ICU Date/Time of Note DATE: 08/05/18 TIME: 10:58 Hx of Present Illness Briefly, this is is a 38-year-old female with a history of hypertension and diabetes who was found down at home. No CPR performed at home. Upon arrival, patient noted to be in V.Fib arrest, s/p ROSC after 2 rounds of epinephrine and defib x 2. Intubated. Found to have STEMI. She was emergently taken to the [facility] and now she is status post successful PTCA and stenting of proximal and mid LAD, PTCA of the large first diagonal and thrombectomy of the LAD. She is now sedated on mechanical ventilation. Subjective hx not possible: pt non-verbal Past Medical History Medical History: coronary artery disease, diabetes, hypertension Medications Current Medications Norepinephrine 250 ml @ 1.875 mls/ hr TITRATE IV ; Start 08/04/18 at 23:15 Aspirin (Halfprin) 81 mg DAILY PO Last administered on 08/05/18at 08:53; Admin Dose 81 MG; Start 08/05/18 at 09:00 Ticagrelor (Brilinta) 90 mg BID PO Last administered on 08/05/18at 08:50; Admin Dose 90 MG; Start 08/05/18 at 09:00 Eptifibatide 100 ml @ 5.544 mls/ hr Q18H3M IV Last administered on 08/05/18at 01:13; Admin Dose 2.318 MLS/HR; Start 08/04/18 at 23:09; Stop 08/05/18 at 11:08 Morphine Sulfate (morphine) 1 mg Q1H PRN IV PAIN Last administered on 08/05/18at 00:55; Admin Dose 1 MG; Start 08/04/18 at 23:30 Docusate Sodium (Colace) 100 mg BID PO Last administered on 08/05/18at 08:52; Admin Dose 100 MG; Start 08/05/18 at 09:00 Carvedilol (Coreg) 12.5 mg QID PO Last administered on 08/05/18at 08:52; Admin Dose 12.5 MG; Start 08/04/18 at 23:30 Atorvastatin Calcium (Lipitor) 80 mg DAILY@21 PO ; Start 08/05/18 at 21:00 Sodium Chloride 1,000 ml @ 75 mls/hr [id number] IV Last administered on 08/05/18at 01:10; Admin Dose 75 MLS/HR; Start 08/04/18 at 23:09; Stop 08/05/18 at 12:28 Diagnostic Test (Pha) (Accu-Chek) 1 ea Q1H XX Last administered on 08/05/18at 08:00; Admin Dose 1 EA; Start 08/05/18 at 01:30 Miscellaneous Information (* Miscellaneous Pharmacy Order) Treatment of Hypoglycemia: 1.BG 51... Per protocol XX ; Start 08/05/18 at 01:30 Nitroglycerin/ Dextrose 250 ml @ 1.5 mls/hr TITRATE IV Last administered on 08/05/18at 01:49; Admin Dose 1.5 MLS/HR; Start 08/05/18 at 01:00 Propofol 100 ml @ 2.772 mls/ hr Q12H IV Last administered on 08/05/18at 09:01; Admin Dose 27.72 MLS/HR; Start 08/05/18 at 04:00 Midazolam HCl 50 ml @ 1 mls/hr TITRATE IV Last administered on 08/05/18at 09:00; Admin Dose 10 MLS/HR; Start 08/05/18 at 07:30 Diagnostic Test (Pha) (Accu-Chek) 1 ea 02 XX ; Start 08/06/18 at 02:00 Insulin Aspart (Novolog Insulin Pen) (Adult SC Insulin - Mild Algorithm)... Q4 SC ; Start 08/05/18 at 09:00 Miscellaneous Information 1 ea NOTE XX ; Start 08/05/18 at 09:00 Glucose (Glutose) 15 gm Q15M PRN PO DECREASED GLUCOSE; Start 08/05/18 at 09:00 Glucose (Glutose) 22.5 gm Q15M PRN PO DECREASED GLUCOSE; Start 08/05/18 at 09:00 Dextrose (D50w Syringe) 25 ml Q15M PRN IV DECREASED GLUCOSE; Start 08/05/18 at 09:00 Dextrose (D50w Syringe) 50 ml Q15M PRN IV DECREASED GLUCOSE; Start 08/05/18 at 09:00 Glucagon (Glucagen) 1 mg Q15M PRN IM DECREASED GLUCOSE; Start 08/05/18 at 09:00 Glucose (Glutose) 15 gm Q15M PRN BUCCAL DECREASED GLUCOSE; Start 08/05/18 at 09:00 Allergies: Coded Allergies: Unknown: Unable to obtain (Unverified , 08/04/18) Past Surgical History Past Surgical Hx: no surgical history, other (Unknown) Family History Significant Family History: no pertinent family hx Social History Alcohol Use: none Smoking Status: Never smoker Drug Use: none Exam/Review of Systems Exam Vitals Vital Signs Date Temp Pulse Resp B/P (MAP) Pulse Ox O2 O2 Flow FiO2 Time Delivery Rate 08/05/18 92 08:00 08/05/18 16 138/84 100 Mechanical 07:15 (102) Ventilator 08/05/18 30 05:24 08/05/18 98.2 04:00 Intake and Output 08/04/18 08/04/18 08/05/18 1515:00 23:00 07:00 IntakeIntake Total 855.56 ml OutputOutput Total 984 ml BalanceBalance -128.44 ml Constitutional: non-verbal Eyes: nl conjunctiva, nl lids, nl sclera ENMT: intubated Neck: supple, non-tender Respiratory: clear to auscultation Cardiovascular: regular rate and rhythm Gastrointestinal: soft, nl liver, spleen, non-tender Musculoskeletal: nl extremities to inspection Extremities: normal pulses Neurological: DTR's symmetric, unresponsive Results Result Diagram: 08/05/18 0418 08/05/18 0418 Results 24hrs Laboratory Tests Test 08/04/18 22:26 08/05/18 00:50 08/05/18 01:24 08/05/18 02:21 White Blood Count 9.2 Red Blood Count 3.94 L Hemoglobin 11.1 L Hematocrit 34.9 L Mean Corpuscular 88.6 Volume Mean Corpuscular 28.2 L Hemoglobin Mean Corpuscular 31.8 L Hemoglobin Concen t Red Cell 13.1 Distribution Width Platelet Count 158 Mean Platelet 13.1 H Volume Immature 3.900 H Granulocytes % Neutrophils % Segmented 17 L Neutrophils % (Manual) Lymphocytes % Lymphocytes % 75 H (Manual) Monocytes % Monocytes % 5 (Manual) Eosinophils % Eosinophils % 1 (Manual) Basophils % Basophils % 2 (Manual) Nucleated Red 0.0 Blood Cells % Immature 0.360 H Granulocytes # Neutrophils # Lymphocytes 6.9 H (Manual) Lymphocytes # Monocytes # Monocytes # 0.4 (Manual) Eosinophils # Basophils # Basophils # 0.1 H (Manual) Nucleated Red Blood Cells # Platelet Estimate NORMAL Anisocytosis 1+ Microcytosis 1+ Prothrombin Time 13.5 Prothrombin Time 1.1 Ratio INR International 1.02 Normalized Ratio Activated 41.4 H Partial Thrombopl ast Time Sodium Level 137 Potassium Level 4.7 Chloride Level 110 Carbon Dioxide 11 L Level Anion Gap 16 H Blood Urea 31 H Nitrogen Creatinine 1.75 H Est Glomerular 32 L Filtrat Rate mL/min Glucose Level 268 H Calcium Level 8.7 Total Bilirubin 0.1 L Direct Bilirubin 0.00 Indirect 0.1 Bilirubin Aspartate Amino 199 H Transf (AST/SGOT) Alanine 267 H Aminotransferase (ALT/SGPT) Alkaline 97 Phosphatase Troponin I 0.140 *H B-Type 1240 H Natriuretic Peptide Total Protein 6.1 Albumin 3.1 L Globulin 3.00 Albumin/Globulin 1.03 Ratio Lipase 169 Blood Gas Blood arterial Specimen Source Arterial Blood 08/05/2018 1:30:3 Date Drawn 1 AM Arterial Blood pH 7.312 L (Temp corrected) Arterial Blood 32.4 L pCO2 (Temp correct) Arterial Blood 206.0 H pO2 (Temp corrected) Arterial Blood 16.0 L HCO3 Arterial Blood -9.1 L Base Excess Arterial Blood 98.8 H Oxygen Saturation Dajuan Test ACCEPTAB Arterial Blood Right Radial Gas Puncture Site Arterial 0.2 Blood Carboxyhemo globin Arterial Blood 0.3 Methemoglobin Blood Gas A-a O2 114.1 H Differential Oxyhemoglobin 98.3 Percent Blood Gas 37.0 Temperature Blood Gas 16.0 Respiration Rate Blood Gas Actual 16 Respiration Rate Blood Gas VENT - AC Modality FiO2 50.0 Blood Gas Tidal 500.0 Volume Blood Gas Low 5.0 PEEP Setting Blood Gas 20.0 Inspiratory Pressure Blood Gas MR Notified Whom Blood Gas 08/05/2018 1:38:3 Notified Time 4 AM Bedside Glucose 151 115 Test 08/05/18 02:58 08/05/18 03:55 08/05/18 04:18 08/05/18 05:09 Bedside Glucose 110 112 129 White Blood Count 8.9 Red Blood Count 3.62 L Hemoglobin 10.4 L Hematocrit 30.9 L Mean Corpuscular 85.4 Volume Mean Corpuscular 28.7 L Hemoglobin Mean Corpuscular 33.7 Hemoglobin Concen t Red Cell 13.1 Distribution Width Platelet Count 154 Mean Platelet 12.7 H Volume Immature 1.000 H Granulocytes % Neutrophils % 81.3 H Lymphocytes % 10.7 L Monocytes % 6.7 Eosinophils % 0.0 Basophils % 0.3 Nucleated Red 0.0 Blood Cells % Immature 0.090 H Granulocytes # Neutrophils # 7.2 Lymphocytes # 1.0 Monocytes # 0.6 Eosinophils # 0.0 Basophils # 0.0 Nucleated Red 0.0 Blood Cells # Sodium Level 136 Potassium Level 4.1 Chloride Level 112 H Carbon Dioxide 18 L Level Anion Gap 6 # Blood Urea 32 H Nitrogen Creatinine 1.25 H Est Glomerular 48 L Filtrat Rate mL/min Glucose Level 122 # Hemoglobin A1c 5.2 Calcium Level 8.2 L Magnesium Level 1.7 Total Bilirubin 0.2 Direct Bilirubin 0.00 Indirect 0.2 Bilirubin Aspartate Amino 309 H Transf (AST/SGOT) Alanine 306 H Aminotransferase (ALT/SGPT) Alkaline 110 Phosphatase Creatine Kinase 216 H Creatine Kinase 5.0 Index Creatinine Kinase 10.80 H MB (Mass) Troponin I 1.860 *H B-Type 2620 H Natriuretic Peptide Total Protein 6.1 Albumin 3.1 L Globulin 3.00 Albumin/Globulin 1.03 Ratio Triglycerides 274 H Level Cholesterol Level 223 H LDL Cholesterol, 135 Calculated HDL Cholesterol 33 L Cholesterol/HDL 6.7 Ratio Thyroid 0.894 Stimulating Hormone (TSH) Free Thyroxine 2.23 Test 08/05/18 06:11 08/05/18 08:59 Bedside Glucose 123 124 Medications Medication Current Medications Norepinephrine 250 ml @ 1.875 mls/ hr TITRATE IV ; Start 08/04/18 at 23:15 Aspirin (Halfprin) 81 mg DAILY PO Last administered on 08/05/18at 08:53; Admin Dose 81 MG; Start 08/05/18 at 09:00 Ticagrelor (Brilinta) 90 mg BID PO Last administered on 08/05/18at 08:50; Admin Dose 90 MG; Start 08/05/18 at 09:00 Eptifibatide 100 ml @ 5.544 mls/ hr Q18H3M IV Last administered on 08/05/18at 01:13; Admin Dose 2.318 MLS/HR; Start 08/04/18 at 23:09; Stop 08/05/18 at 11:08 Morphine Sulfate (morphine) 1 mg Q1H PRN IV PAIN Last administered on 08/05/18at 00:55; Admin Dose 1 MG; Start 08/04/18 at 23:30 Docusate Sodium (Colace) 100 mg BID PO Last administered on 08/05/18at 08:52; Admin Dose 100 MG; Start 08/05/18 at 09:00 Carvedilol (Coreg) 12.5 mg QID PO Last administered on 08/05/18at 08:52; Admin Dose 12.5 MG; Start 08/04/18 at 23:30 Atorvastatin Calcium (Lipitor) 80 mg DAILY@21 PO ; Start 08/05/18 at 21:00 Sodium Chloride 1,000 ml @ 75 mls/hr [id number] IV Last administered on 08/05/18at 01:10; Admin Dose 75 MLS/HR; Start 08/04/18 at 23:09; Stop 08/05/18 at 12:28 Diagnostic Test (Pha) (Accu-Chek) 1 ea Q1H XX Last administered on 08/05/18at 08:00; Admin Dose 1 EA; Start 08/05/18 at 01:30 Miscellaneous Information (* Miscellaneous Pharmacy Order) Treatment of Hypogl ycemia: 1.BG 51... Per protocol XX ; Start 08/05/18 at 01:30 Nitroglycerin/ Dextrose 250 ml @ 1.5 mls/hr TITRATE IV Last administered on 08/05/18at 01:49; Admin Dose 1.5 MLS/HR; Start 08/05/18 at 01:00 Propofol 100 ml @ 2.772 mls/ hr Q12H IV Last administered on 08/05/18at 09:01; Admin Dose 27.72 MLS/HR; Start 08/05/18 at 04:00 Midazolam HCl 50 ml @ 1 mls/hr TITRATE IV Last administered on 08/05/18at 09:00; Admin Dose 10 MLS/HR; Start 08/05/18 at 07:30 Diagnostic Test (Pha) (Accu-Chek) 1 ea 02 XX ; Start 08/06/18 at 02:00 Insulin Aspart (Novolog Insulin Pen) (Adult SC Insulin - Mild Algorithm)... Q4 SC ; Start 08/05/18 at 09:00 Miscellaneous Information 1 ea NOTE XX ; Start 08/05/18 at 09:00 Glucose (Glutose) 15 gm Q15M PRN PO DECREASED GLUCOSE; Start 08/05/18 at 09:00 Glucose (Glutose) 22.5 gm Q15M PRN PO DECREASED GLUCOSE; Start 08/05/18 at 09:00 Dextrose (D50w Syringe) 25 ml Q15M PRN IV DECREASED GLUCOSE; Start 08/05/18 at 09:00 Dextrose (D50w Syringe) 50 ml Q15M PRN IV DECREASED GLUCOSE; Start 08/05/18 at 09:00 Glucagon (Glucagen) 1 mg Q15M PRN IM DECREASED GLUCOSE; Start 08/05/18 at 09:00 Glucose (Glutose) 15 gm Q15M PRN BUCCAL DECREASED GLUCOSE; Start 08/05/18 at 09:00 LA PEARSON MD Aug 05, 2018 11:07
[2018-08-05] MEDS ORDERED: morphine 10 MG INJ ONE (12:06)
[2018-08-05] MEDS ORDERED: LACTATED RINGER'S 500 ML IV ONE (12:30)
--- NOTE | 2018-08-05 12:54 | PRO ---
Date/Time of Note Date/Time of Note DATE: 08/05/18 TIME: 12:52 Femoral CV Placement PROCEDURE NOTE PROCEDURE: Right internal jugular central venous catheter INDICATION: Need for intravenous access s/p cardiac arrest PROCEDURE RADIOLOGIC TECHNOLOGY TEACHER: Ade CONSENT: Consent was implied due to the emergent nature of the procedure. PROCEDURE SUMMARY: The patient was prepped and draped in the usual sterile manner. 3 ml 1% lidocaine was used to numb the region. Under U/S guidance, the finder needle was used to locate the right internal jugular vein. A triple lumen 8 [place] 20 cm catheter was inserted using the Seldinger technique. All ports aspirate and flushed without difficulty. The patient tolerated the procedure well without any immediate complications. The line was sutured into place and the area was cleaned and Tegaderm applied. ESTIMATED BLOOD LOSS: 2-3 ml LA PEARSON MD Aug 05, 2018 12:54
[2018-08-05] MEDS: FENTAnyl (DRIP) 1000 mcg/100mL 100 ML IV SCH ×2 (14:22→19:21)
[2018-08-05] MEDS ORDERED: MAGNESIUM SULFATE 2 GM/50 ML 50 ML IVPB ONE (14:30)
[2018-08-05] MEDS: MEPERIDINE 25 MG INJ IV PRN ×2 (14:43→16:31)
[2018-08-05] MEDS: ACETAMINOPHEN 650MG/20.3ML CUP PO SCH (14:57)
[2018-08-05] MEDS: ARTIFICIAL TEARS 15 ML OPH BOTH EYES SCH ×2 (15:08→17:12)
[2018-08-05] MEDS: OCULAR LUBRICANT 3.5 GM OPH OINT BOTH EYES SCH ×2 (15:09→17:12)
--- NOTE | 2018-08-05 16:19 | CONS ---
Assessment/Plan Assessment/Plan Hospital Course (Demo Recall) Myocardial infarction status post PCI to LAD Triple-vessel coronary artery disease Vent dependent respiratory failure Cardiac arrest Encephalopathy Hypertension -Patient currently hypertensive and is currently on IV nitroglycerin as well as oral beta-blockers. Titrate as needed for blood pressure -Patient evaluated by critical care animal handler off sedation and given neurologic findings, recommendations were made for hypothermia protocol, this is currently being initiated -Continue dual antiplatelet therapy, statin therapy if no contraindication -Vent management as per pulmonary -Plan of care discussed with patient's mother at bedside -Greater than 33 minutes of critical care time taken in the care of this patient -Dr. Rashid to resume care 08/06/2018 Consultation Date/Type/Reason Admit Date/Time Aug 04, 2018 at 23:10 Initial Consult Date 08/05/18 Type of Consult Cardiology Requesting Provider: HARPAL AGGARWAL MD Date/Time of Note DATE: 08/05/18 TIME: 16:15 24 HR Interval Summary Free Text/Dictation Patient's heart rate remained stable in discussion with nursing staff. Patient has been started on hypothermia protocol as per critical care Exam/Review of Systems Vital Signs Vitals Vital Signs Date Temp Pulse Resp B/P (MAP) Pulse Ox O2 O2 Flow FiO2 Time Delivery Rate 08/05/18 98.8 14:57 08/05/18 99 24 100 30 13:00 08/05/18 138/84 Mechanical 07:15 (102) Ventilator Intake and Output 08/04/18 08/04/18 08/05/18 1515:00 23:00 07:00 IntakeIntake Total 855.56 ml OutputOutput Total 984 ml BalanceBalance -128.44 ml Exam Exam Intubated, being initiated on hypothermia protocol Head: normocephalic ENMT: intubated Respiratory: other (Coarse breath sounds bilaterally, no wheezing) Cardiovascular: regular rate and rhythm (S1-S2 heard) Gastrointestinal: soft, non-tender, bowel sounds Genitourinary - Female: other (Aguilar present) Extremities: edema Additional Comments Moving left upper extremity at times Labs Result Diagram: 08/05/18 1218 08/05/18 1222 Results 24hrs Laboratory Tests Test 08/04/18 22:26 08/05/18 00:50 08/05/18 01:24 08/05/18 02:21 White Blood Count 9.2 Red Blood Count 3.94 L Hemoglobin 11.1 L Hematocrit 34.9 L Mean Corpuscular 88.6 Volume Mean Corpuscular 28.2 L Hemoglobin Mean Corpuscular 31.8 L Hemoglobin Concen t Red Cell 13.1 Distribution Width Platelet Count 158 Mean Platelet 13.1 H Volume Immature 3.900 H Granulocytes % Neutrophils % Segmented 17 L Neutrophils % (Manual) Lymphocytes % Lymphocytes % 75 H (Manual) Monocytes % Monocytes % 5 (Manual) Eosinophils % Eosinophils % 1 (Manual) Basophils % Basophils % 2 (Manual) Nucleated Red 0.0 Blood Cells % Immature 0.360 H Granulocytes # Neutrophils # Lymphocytes 6.9 H (Manual) Lymphocytes # Monocytes # Monocytes # 0.4 (Manual) Eosinophils # Basophils # Basophils # 0.1 H (Manual) Nucleated Red Blood Cells # Platelet Estimate NORMAL Anisocytosis 1+ Microcytosis 1+ Prothrombin Time 13.5 Prothrombin Time 1.1 Ratio INR International 1.02 Normalized Ratio Activated 41.4 H Partial Thrombopl ast Time Sodium Level 137 Potassium Level 4.7 Chloride Level 110 Carbon Dioxide 11 L Level Anion Gap 16 H Blood Urea 31 H Nitrogen Creatinine 1.75 H Est Glomerular 32 L Filtrat Rate mL/min Glucose Level 268 H Calcium Level 8.7 Total Bilirubin 0.1 L Direct Bilirubin 0.00 Indirect 0.1 Bilirubin Aspartate Amino 199 H Transf (AST/SGOT) Alanine 267 H Aminotransferase (ALT/SGPT) Alkaline 97 Phosphatase Troponin I 0.140 *H B-Type 1240 H Natriuretic Peptide Total Protein 6.1 Albumin 3.1 L Globulin 3.00 Albumin/Globulin 1.03 Ratio Lipase 169 Blood Gas Blood arterial Specimen Source Arterial Blood 08/05/2018 1:30:3 Date Drawn 1 AM Arterial Blood pH 7.312 L (Temp corrected) Arterial Blood 32.4 L pCO2 (Temp correct) Arterial Blood 206.0 H pO2 (Temp corrected) Arterial Blood 16.0 L HCO3 Arterial Blood -9.1 L Base Excess Arterial Blood 98.8 H Oxygen Saturation Dajuan Test ACCEPTAB Arterial Blood Right Radial Gas Puncture Site Arterial 0.2 Blood Carboxyhemo globin Arterial Blood 0.3 Methemoglobin Blood Gas A-a O2 114.1 H Differential Oxyhemoglobin 98.3 Percent Blood Gas 37.0 Temperature Blood Gas 16.0 Respiration Rate Blood Gas Actual 16 Respiration Rate Blood Gas VENT - AC Modality FiO2 50.0 Blood Gas Tidal 500.0 Volume Blood Gas Low 5.0 PEEP Setting Blood Gas 20.0 Inspiratory Pressure Blood Gas MR Notified Whom Blood Gas 08/05/2018 1:38:3 Notified Time 4 AM Bedside Glucose 151 115 Test 08/05/18 02:58 08/05/18 03:55 08/05/18 04:18 08/05/18 05:09 Bedside Glucose 110 112 129 White Blood Count 8.9 Red Blood Count 3.62 L Hemoglobin 10.4 L Hematocrit 30.9 L Mean Corpuscular 85.4 Volume Mean Corpuscular 28.7 L Hemoglobin Mean Corpuscular 33.7 Hemoglobin Concen t Red Cell 13.1 Distribution Width Platelet Count 154 Mean Platelet 12.7 H Volume Immature 1.000 H Granulocytes % Neutrophils % 81.3 H Lymphocytes % 10.7 L Monocytes % 6.7 Eosinophils % 0.0 Basophils % 0.3 Nucleated Red 0.0 Blood Cells % Immature 0.090 H Granulocytes # Neutrophils # 7.2 Lymphocytes # 1.0 Monocytes # 0.6 Eosinophils # 0.0 Basophils # 0.0 Nucleated Red 0.0 Blood Cells # Sodium Level 136 Potassium Level 4.1 Chloride Level 112 H Carbon Dioxide 18 L Level Anion Gap 6 # Blood Urea 32 H Nitrogen Creatinine 1.25 H Est Glomerular 48 L Filtrat Rate mL/min Glucose Level 122 # Hemoglobin A1c 5.2 Calcium Level 8.2 L Magnesium Level 1.7 Total Bilirubin 0.2 Direct Bilirubin 0.00 Indirect 0.2 Bilirubin Aspartate Amino 309 H Transf (AST/SGOT) Alanine 306 H Aminotransferase (ALT/SGPT) Alkaline 110 Phosphatase Creatine Kinase 216 H Creatine Kinase 5.0 Index Creatinine Kinase 10.80 H MB (Mass) Troponin I 1.860 *H B-Type 2620 H Natriuretic Peptide Total Protein 6.1 Albumin 3.1 L Globulin 3.00 Albumin/Globulin 1.03 Ratio Triglycerides 274 H Level Cholesterol Level 223 H LDL Cholesterol, 135 Calculated HDL Cholesterol 33 L Cholesterol/HDL 6.7 Ratio Thyroid 0.894 Stimulating Hormone (TSH) Free Thyroxine 2.23 Test 08/05/18 06:11 08/05/18 08:59 08/05/18 11:02 08/05/18 12:15 Bedside Glucose 123 124 Creatine Kinase 300 H Creatine Kinase 7.7 Index Creatinine Kinase 23.20 H MB (Mass) Troponin I 4.950 *H Urine Color YELLOW Urine Clarity CLEAR Urine pH 5.0 Urine Specific 1.025 [place] Urine Ketones NEGATIVE Urine Nitrite NEGATIVE Urine Bilirubin NEGATIVE Urine NEGATIVE Urobilinogen Urine Leukocyte NEGATIVE Esterase Urine Microscopic 2 RBC Urine Microscopic 17 H WBC Urine Squamous FEW Epithelial Cells Urine Bacteria FEW A Urine Hemoglobin NEGATIVE Urine Glucose NEGATIVE Urine Total 2+ H Protein Urine NEGATIVE Test Test 08/05/18 12:18 08/05/18 12:22 08/05/18 13:59 08/05/18 15:19 White Blood Count 7.6 Red Blood Count 3.44 L Hemoglobin 9.9 L Hematocrit 29.3 L Mean Corpuscular 85.2 Volume Mean Corpuscular 28.8 L Hemoglobin Mean Corpuscular 33.8 Hemoglobin Concen t Red Cell 13.2 Distribution Width Platelet Count 149 Mean Platelet 12.8 H Volume Immature 0.400 Granulocytes % Neutrophils % 79.3 H Lymphocytes % 11.6 L Monocytes % 8.3 Eosinophils % 0.1 Basophils % 0.3 Nucleated Red 0.0 Blood Cells % Immature 0.030 Granulocytes # Neutrophils # 6.0 Lymphocytes # 0.9 Monocytes # 0.6 Eosinophils # 0.0 Basophils # 0.0 Nucleated Red 0.0 Blood Cells # Prothrombin Time 13.2 Prothrombin Time 1.0 Ratio INR International 0.99 Normalized Ratio Activated 34.3 Partial Thrombopl ast Time Fibrinogen 398.0 D-Dimer 2875.57 H D-Dimer Comment Sodium Level 138 Potassium Level 3.9 Chloride Level 115 H Carbon Dioxide 15 L Level Anion Gap 8 Blood Urea 24 H Nitrogen Creatinine 0.97 Est Glomerular > 60 Filtrat Rate mL/min Glucose Level 125 Lactic Acid Level 0.6 Calcium Level 8.2 L Phosphorus Level 3.7 Magnesium Level 1.6 L Creatine Kinase 294 H Creatine Kinase 7.4 Index Creatinine Kinase 21.90 H MB (Mass) Troponin I 4.560 *H Amylase Level 66 Lipase 92 Bedside Glucose 139 152 Medications Medications Current Medications Norepinephrine 250 ml @ 1.875 mls/ hr TITRATE IV ; Start 08/04/18 at 23:15 Aspirin (Halfprin) 81 mg DAILY PO Last administered on 08/05/18at 08:53; Admin Dose 81 MG; Start 08/05/18 at 09:00 Ticagrelor (Brilinta) 90 mg BID PO Last administered on 08/05/18at 08:50; Admin Dose 90 MG; Start 08/05/18 at 09:00 Morphine Sulfate (morphine) 1 mg Q1H PRN IV PAIN Last administered on 08/05/18at 00:55; Admin Dose 1 MG; Start 08/04/18 at 23:30 Docusate Sodium (Colace) 100 mg BID PO Last administered on 08/05/18at 08:52; Admin Dose 100 MG; Start 08/05/18 at 09:00 Carvedilol (Coreg) 12.5 mg QID PO Last administered on 08/05/18at 13:00; Admin Dose 12.5 MG; Start 08/04/18 at 23:30 Atorvastatin Calcium (Lipitor) 80 mg DAILY@21 PO ; Start 08/05/18 at 21:00 Miscellaneous Information (* Miscellaneous Pharmacy Order) Treatment of Hypoglycemia: 1.BG 51... Per protocol XX ; Start 08/05/18 at 01:30 Nitroglycerin/ Dextrose 250 ml @ 1.5 mls/hr TITRATE IV Last administered on 08/05/18at 14:22; Admin Dose 72 MLS/HR; Start 08/05/18 at 01:00 Propofol 100 ml @ 2.772 mls/ hr Q12H IV Last administered on 08/05/18at 09:01; Admin Dose 27.72 MLS/HR; Start 08/05/18 at 04:00 Midazolam HCl 50 ml @ 1 mls/hr TITRATE IV Last administered on 08/05/18at 09:00; Admin Dose 10 MLS/HR; Start 08/05/18 at 07:30 Miscellaneous Information 1 ea NOTE XX ; Start 08/05/18 at 09:00 Acetaminophen (Tylenol Supp) 650 mg Q4H PRN [place] TEMP > 37C; Start 08/05/18 at 11:00 Acetaminophen (Tylenol Liquid) 650 mg Q4H PRN PO TEMP > 37C; Start 08/05/18 at 11:00 Acetaminophen (Tylenol Supp) 500 mg Q6H [place] ; Start 08/06/18 at 12:00 Acetaminophen (Tylenol Liquid) 500 mg Q6H PO Last administered on 08/05/18at 14:57; Admin Dose 500 MG; Start 08/06/18 at 12:00 Meperidine HCl (Demerol) 25 mg Q4H PRN IV POST OPERATIVE SHIVERING Last administered on 08/05/18at 14:43; Admin Dose 25 MG; Start 08/05/18 at 11:00 Eye Lubricant (Akwa Oint) 1 applic Q6 BOTH EYES Last administered on 08/05/18at 15:09; Admin Dose 1 APPLIC; Start 08/05/18 at 12:00 Eye Lubricant (Artificial Tears Oph) 2 drop Q6 BOTH EYES Last administered on 08/05/18at 15:08; Admin Dose 2 DROP; Start 08/05/18 at 12:00 Diagnostic Test (Pha) (Accu-Chek) 1 ea Q1H XX Last administered on 08/05/18at 15:21; Admin Dose 1 EA; Start 08/05/18 at 11:00 Diagnostic Test (Pha) (Accu-Chek) 1 ea Q1H XX Last administered on 08/05/18at 15:15; Admin Dose 1 EA; Start 08/05/18 at 12:00 Miscellaneous Information (* Miscellaneous Pharmacy Order) Treatment of Hypoglycemia: 1.BG 51... Per protocol XX ; Start 08/05/18 at 12:00 Dextrose (D50w Syringe) 25 ml Q15M PRN IV .DECREASED GLUCOSE; Start 08/05/18 at 12:00 Dextrose (D50w Syringe) 50 ml Q15M PRN IV .DECREASED GLUCOSE; Start 08/05/18 at 12:00 Diagnostic Test (Pha) (Accu-Chek) 1 ea Q1H XX Last administered on 08/05/18at 15:15; Admin Dose 1 EA; Start 08/05/18 at 12:00 Insulin Human Regular 100 unit/ Sodium Chloride 100 ml @ 0 mls/hr PER PROTOCOL IV Last administered on 08/05/18at 14:20; Admin Dose 1 MLS/HR; Start 08/05/18 at 12:00 Miscellaneous Information (* Miscellaneous Pharmacy Order) Treatment of Hypoglycemia: 1.BG 51... Per protocol XX ; Start 08/05/18 at 12:00 Dextrose (D50w Syringe) 25 ml Q15M PRN IV .DECREASED GLUCOSE; Start 08/05/18 at 12:00 Dextrose (D50w Syringe) 50 ml Q15M PRN IV .DECREASED GLUCOSE; Start 08/05/18 at 12:00 Fentanyl 100 ml @ 2.5 mls/hr TITRATE IV Last administered on 08/05/18at 14:22; Admin Dose 2.5 MLS/HR; Start 08/05/18 at 12:00 Magnesium Sulfate 50 ml @ 25 mls/hr ONCE ONCE IVPB Last administered on 08/05/18at 15:09; Admin Dose 25 MLS/HR; Start 08/05/18 at 14:30; Stop 08/05/18 at 16:29 Vecuronium [place] 100 mg/ Dextrose 100 ml @ 4.62 mls/hr TITRATE IV ; Start 08/05/18 at 16:00 Meperidine HCl (Demerol) 12.5 mg Q2H PRN IV POST OPERATIVE SHIVERING; Start 08/05/18 at 17:00 Earl Feliciano DO Aug 05, 2018 16:19
[2018-08-05] MEDS: VECURONIUM 100 MG in DEXTROSE 5% 100 ML IV SCH ×2 (16:51→16:59)
[2018-08-05] MEDS: SOD CHLORIDE 0.9% 1,000 ML IV SCH (21:11)
[2018-08-05] MEDS: ATORVASTATIN 80 MG TAB PO SCH (21:16)
[2018-08-06] VITALS (39 sets, daily range): BP systolic 88–142; BP diastolic 58–88; PULSE 59–82; RESP 0–22; Ht 152.4 cm; Wt 92.4 kg
[2018-08-06] MEDS: OCULAR LUBRICANT 3.5 GM OPH OINT BOTH EYES SCH ×4 (00:48→18:15)
[2018-08-06] MEDS: ARTIFICIAL TEARS 15 ML OPH BOTH EYES SCH ×4 (00:48→18:15)
[2018-08-06] MEDS ORDERED: ACCU-CHEK XX SCH (02:00)
[2018-08-06] MEDS: PROPOFOL 100 ML IV SCH ×7 (02:47→22:05)
[2018-08-06] MEDS: POTASSIUM CHLORIDE 50 ML IVPB SCH ×2 (03:22→05:22)
[2018-08-06] MEDS: SOD CHLORIDE 0.9% 1,000 ML IV SCH ×2 (06:20→16:36)
[2018-08-06] MEDS: FENTAnyl (DRIP) 1000 mcg/100mL 100 ML IV SCH ×2 (07:00→16:27)
--- NOTE | 2018-08-06 08:17 | PN ---
DATE: 08/06/2018 SUBJECTIVE: The patient is critically ill, on ventilatory support. The patient is completing hypoth ermic protocol. Urinary output has been adequate. No hemoptysis, hematemesis or hematochezia. OBJECTIVE: VITAL SIGNS: Blood pressure is 107/64, respirations 20, pulse 61, temperature 91.0, FIO2 30%. HEENT: Head is normocephalic. Pupils are reactive to light. NECK: Supple. HEART: Regular rate. LUNGS: Show diminished breath sounds at the base. ABDOMEN: Soft, nontender to palpation without rebound or guarding. EXTREMITIES: Negative for clubbing, cyanosis, no edema. DERMATOLOGIC: No rashes. MUSCULOSKELETAL: No joint effusion. NEUROLOGIC: The patient is obtunded. LABORATORY DATA: Reviewed. The patient's ABG was reviewed. The patient has sodium 139, potassium o f 3.1, bicarbonate 14, BUN 19, creatinine 0.81. White count 5.3, hemoglobin 8.9. Lactic acid levels were reviewed. ASSESSMENT AND PLAN: This is a 38-year-old female who presents with: 1. Nonoliguric acute kidney injury with unknown baseline creatinine. Etiology is secondary to hemod ynamics. Renal function has improved. At this point, continue current treatment plan, supportive ca re, renally dose all medicines. 2. Hypokalemia, replete with potassium chloride. 3. Anemia. Continue to monitor hemoglobin and hematocrit levels. 4. Mineral bone disorder, monitor calcium and phosphorus levels. 5. Metabolic acidosis with respiratory compensation. Continue to monitor. No need for bicarbonate therapy. 6. Status post cardiac arrest secondary to ST elevated myocardial infarction. The patient is status post cardiac catheterization with PCI to the LAD. Continue medical management. Follow up with card iology. The patient is completing hypothermic protocol. 7. Ventilator-dependent respiratory failure. Vent settings and ABG was reviewed. Continue to monit or. 8. Coronary artery disease, status post percutaneous coronary intervention. Continue current medica l management as stated above. 9. Encephalopathy, etiology is toxic metabolic. 10. Hypertension. Continue current blood pressure regimen. 11. Gastrointestinal and deep vein thrombosis prophylaxis. Please note I spent over 30 minutes of critical care time with this patient. Dictated By: BHUMI JOSEPH/ALLI Conf#: [id number] DID#: [id number] CC: DANIAL TUCKER MD; CHINO ANDERSON MD; HARPAL PEDROZA MD;*End*
[2018-08-06] MEDS: DOCUSATE SODIUM 100 MG CAP PO SCH ×2 (08:32→21:32)
[2018-08-06] MEDS: ASPIRIN 81 MG TAB NGT SCH (08:51)
[2018-08-06] MEDS: TICAGRELOR 90 MG TABLET PO SCH ×2 (08:53→21:33)
--- NOTE | 2018-08-06 09:15 | PN ---
Date/Time of Note Date/Time of Note DATE: 08/06/18 TIME: 09:15 Assessment/Plan VTE Prophylaxis Risk score (from Ns)>0 risk: 12 SCD applied (from Ns): Yes Pharmacological prophylaxis: NA/contraindicated Pharm contraindication: thrombocytopenia Lines/Catheters IV Catheter Type (from Nrsg): A Line Urinary Cath still in place: Yes Reason Cath still needed: terminal illness/intractable pain Assessment/Plan Assessment/Plan 1. V-fib cardiac arrest secondary to STEMI - Cardiology on board and appreciate recommendations. Troponins trending down. - s/p emergent Cath with successful PTCA and stenting of proximal and mid LAD, PTCA of the large first diagonal and thrombectomy of the LAD - Currently undergoing hypothermia protocol and remains intubated - Continue cardiac medications including dual antiplatelets, statin and beta- laura - ECHO results pending 2. Acute hypoxic respiratory failure - Pulm on board for vent management - once hypothermia protocol complete, daily sedation and SBT trials 3. HUSEYIN - secondary to ATN vs prerenal - resolved - Nephrology on board and appreciate recommendations - avoid nephrotoxic agents 4. Hypertension - BP stable and will adjust medications as needed for control 5. Diabetes - A1c noted 6. Transaminitis - continue monitoring LFTs - RUQ US noted 7. Disposition - Continue monitoring in ICU with on mechanical ventilation and hypothermia protocol >40 minutes of critical care time spent with patient Result Diagram: 08/06/18 0807 08/06/18 0213 Results 24hrs Laboratory Tests Test 08/05/18 10:54 08/05/18 11:02 08/05/18 12:15 08/05/18 12:18 Blood Gas Blood arterial Specimen Source Arterial Blood 08/05/2018 1:03: Date Drawn 00 PM Arterial Blood 7.294 *L pH (Temp corrected) Arterial Blood 10.1 L pCO2 (Temp correct) Arterial Blood 122.5 H pO2 (Temp corrected) Arterial Blood 4.8 *L HCO3 Arterial Blood -20.5 L Base Excess Arterial Blood 96.5 Oxygen Saturatio n Dajuan Test N/A Arterial Blood A-Line Gas Puncture Site Arterial 0.1 Blood Carboxyhem oglobin Arterial Blood 1.5 Methemoglobin Blood Gas A-a O2 79.5 H Differential Oxyhemoglobin 95.0 Percent Blood Gas 37.0 Temperature Blood Gas 12.0 Respiration Rate Blood Gas Actual 22 Respiration Rate Blood Gas VENT - AC Modality FiO2 30.0 Blood Gas Tidal 450.0 Volume Blood Gas Low 5.0 PEEP Setting Blood Gas YABEL R.N. Critical Value Read Back Blood Gas MDA Notified Whom Blood Gas 08/05/2018 1:08: Notified Time 00 PM Creatine Kinase 300 H Creatine Kinase 7.7 Index Creatinine 23.20 H Kinase MB (Mass) Troponin I 4.950 *H Urine Color YELLOW Urine Clarity CLEAR Urine pH 5.0 Urine Specific 1.025 [place] Urine Ketones NEGATIVE Urine Nitrite NEGATIVE Urine Bilirubin NEGATIVE Urine NEGATIVE Urobilinogen Urine Leukocyte NEGATIVE Esterase Urine 2 Microscopic RBC Urine 17 H Microscopic WBC Urine Squamous FEW Epithelial Cells Urine Bacteria FEW A Urine Hemoglobin NEGATIVE Urine Glucose NEGATIVE Urine Total 2+ H Protein Urine NEGATIVE Test White Blood 7.6 Count Red Blood Count 3.44 L Hemoglobin 9.9 L Hematocrit 29.3 L Mean Corpuscular 85.2 Volume Mean Corpuscular 28.8 L Hemoglobin Mean Corpuscular 33.8 Hemoglobin Kenia nt Red Cell 13.2 Distribution Width Platelet Count 149 Mean Platelet 12.8 H Volume Immature 0.400 Granulocytes % Neutrophils % 79.3 H Lymphocytes % 11.6 L Monocytes % 8.3 Eosinophils % 0.1 Basophils % 0.3 Nucleated Red 0.0 Blood Cells % Immature 0.030 Granulocytes # Neutrophils # 6.0 Lymphocytes # 0.9 Monocytes # 0.6 Eosinophils # 0.0 Basophils # 0.0 Nucleated Red 0.0 Blood Cells # Prothrombin Time 13.2 Prothrombin Time 1.0 Ratio INR 0.99 International Normalized Ratio Activated 34.3 Partial Thrombop last Time Fibrinogen 398.0 D-Dimer 2875.57 H D-Dimer Comment Test 08/05/18 12:22 08/05/18 13:59 08/05/18 15:19 08/05/18 16:14 Sodium Level 138 Potassium Level 3.9 Chloride Level 115 H Carbon Dioxide 15 L Level Anion Gap 8 Blood Urea 24 H Nitrogen Creatinine 0.97 Est Glomerular > 60 Filtrat Rate mL/min Glucose Level 125 Lactic Acid 0.6 Level Calcium Level 8.2 L Phosphorus Level 3.7 Magnesium Level 1.6 L Creatine Kinase 294 H Creatine Kinase 7.4 Index Creatinine 21.90 H Kinase MB (Mass) Troponin I 4.560 *H Amylase Level 66 Lipase 92 Bedside Glucose 139 152 84 Test 08/05/18 16:55 3/17/19 17:51 08/05/18 19:00 08/05/18 19:36 Bedside Glucose 138 140 136 87 Test 08/05/18 20:00 08/05/18 20:15 08/05/18 23:37 08/06/18 00:43 Blood Gas Blood arterial Specimen Source Arterial Blood 08/05/2018 8:15: Date Drawn 00 PM Arterial Blood 7.553 *H pH (Temp corrected) Arterial Blood 14.5 L pCO2 (Temp correct) Arterial Blood 163.1 H pO2 (Temp corrected) Arterial Blood 12.9 L HCO3 Arterial Blood -8.1 L Base Excess Arterial Blood 98.8 H Oxygen Saturatio n Dajuan Test N/A Arterial Blood A-Line Gas Puncture Site Arterial 0.3 Blood Carboxyhem oglobin Arterial Blood 0.3 Methemoglobin Blood Gas A-a O2 36.6 H Differential Oxyhemoglobin 98.2 Percent Blood Gas 32.9 Temperature Blood Gas 28.0 Respiration Rate Blood Gas Actual 28 Respiration Rate Blood Gas VENT - AC Modality FiO2 30.0 Blood Gas Tidal 450.0 Volume Blood Gas Low 5.0 PEEP Setting Blood Gas 22.0 Inspiratory Pressure Blood Gas Sherita RO RN Critical Value Read Back Blood Gas MR Notified Whom Blood Gas 08/05/2018 8:26: Notified Time 00 PM White Blood 7.1 Count Red Blood Count 3.47 L Hemoglobin 10.0 L Hematocrit 29.2 L Mean Corpuscular 84.1 Volume Mean Corpuscular 28.8 L Hemoglobin Mean Corpuscular 34.2 Hemoglobin Ken[place] nt Red Cell 13.1 Distribution Width Platelet Count 142 Mean Platelet 12.7 H Volume Immature 0.400 Granulocytes % Neutrophils % 76.2 Lymphocytes % 15.3 Monocytes % 7.6 Eosinophils % 0.1 Basophils % 0.4 Nucleated Red 0.0 Blood Cells % Immature 0.030 Granulocytes # Neutrophils # 5.4 Lymphocytes # 1.1 Monocytes # 0.5 Eosinophils # 0.0 Basophils # 0.0 Nucleated Red 0.0 Blood Cells # Sodium Level 136 Potassium Level 3.4 L Chloride Level 114 H Carbon Dioxide 12 L Level Anion Gap 10 Blood Urea 20 Nitrogen Creatinine 0.78 Est Glomerular > 60 Filtrat Rate mL/min Glucose Level 126 Lactic Acid 0.8 Level Calcium Level 8.5 Phosphorus Level 3.1 Magnesium Level 2.8 #H Troponin I 2.010 *H Bedside Glucose 116 Prothrombin Time 14.1 Prothrombin Time 1.1 Ratio INR 1.08 International Normalized Ratio Activated 36.0 H Partial Thrombop last Time Fibrinogen 436.0 # Amylase Level 36 Lipase 58 Test 08/06/18 02:00 08/06/18 02:13 08/06/18 06:00 08/06/18 08:00 Blood Gas Blood arterial Blood arterial Specimen Source Arterial Blood 08/06/2018 2:15: 08/06/2018 7:31: Date Drawn 02 AM 00 AM Arterial Blood 7.437 7.449 pH (Temp corrected) Arterial Blood 21.5 L 20.2 L pCO2 (Temp correct) Arterial Blood 98.9 119.7 H pO2 (Temp corrected) Arterial Blood 14.7 L 14.3 L HCO3 Arterial Blood -9.0 L -9.4 L Base Excess Arterial Blood 97.7 98.0 Oxygen Saturatio n Dajuan Test N/A N/A Arterial Blood A-Line A-Line Gas Puncture Site Arterial 0.2 0.2 Blood Carboxyhem oglobin Arterial Blood 0.3 0.3 Methemoglobin Blood Gas A-a O2 92.5 H 73.6 H Differential Oxyhemoglobin 97.2 97.5 Percent Blood Gas 33.1 32.5 Temperature Blood Gas 20.0 20.0 Respiration Rate Blood Gas Actual 20 20 Respiration Rate Blood Gas VENT - AC VENT - AC Modality FiO2 30.0 30.0 Blood Gas Tidal 450.0 450.0 Volume Blood Gas Low 5.0 5.0 PEEP Setting Blood Gas 22.0 Inspiratory Pressure Blood Gas MR TM Notified Whom Blood Gas 08/06/2018 2:29: 08/06/2018 7:41: Notified Time 45 AM 00 AM White Blood 5.3 # Count Red Blood Count 3.15 L Hemoglobin 8.9 L Hematocrit 26.4 L Mean Corpuscular 83.8 Volume Mean Corpuscular 28.3 L Hemoglobin Mean Corpuscular 33.7 Hemoglobin Ken[place] nt Red Cell 13.2 Distribution Width Platelet Count 114 L Mean Platelet 12.6 H Volume Immature 0.600 H Granulocytes % Neutrophils % 67.9 Lymphocytes % 22.6 Monocytes % 7.9 Eosinophils % 0.8 Basophils % 0.2 Nucleated Red 0.0 Blood Cells % Immature 0.030 Granulocytes # Neutrophils # 3.6 Lymphocytes # 1.2 Monocytes # 0.4 Eosinophils # 0.0 Basophils # 0.0 Nucleated Red 0.0 Blood Cells # Sodium Level 139 Potassium Level 3.1 L Chloride Level 117 H Carbon Dioxide 14 L Level Anion Gap 8 Blood Urea 19 Nitrogen Creatinine 0.81 Est Glomerular > 60 Filtrat Rate mL/min Glucose Level 107 Lactic Acid 0.7 Level Calcium Level 7.8 L Phosphorus Level 3.8 Magnesium Level 2.4 Troponin I 1.110 *H Bedside Glucose 108 Test 08/06/18 08:07 White Blood 4.0 #L Count Red Blood Count 2.97 L Hemoglobin 8.5 L Hematocrit 25.1 L Mean Corpuscular 84.5 Volume Mean Corpuscular 28.6 L Hemoglobin Mean Corpuscular 33.9 Hemoglobin Ken[place] nt Red Cell 13.3 Distribution Width Platelet Count 94 L Mean Platelet 12.5 H Volume Immature 0.500 H Granulocytes % Neutrophils % 63.3 Lymphocytes % 25.1 Monocytes % 8.3 Eosinophils % 2.3 Basophils % 0.5 Nucleated Red 0.0 Blood Cells % Immature 0.020 Granulocytes # Neutrophils # 2.5 Lymphocytes # 1.0 Monocytes # 0.3 Eosinophils # 0.1 Basophils # 0.0 Nucleated Red 0.0 Blood Cells # Sodium Level Pending Potassium Level Pending Chloride Level Pending Carbon Dioxide Pending Level Anion Gap Pending Blood Urea Pending Nitrogen Creatinine Pending Est Glomerular Pending Filtrat Rate mL/min Glucose Level Pending Lactic Acid 0.9 Level Calcium Level Pending Phosphorus Level Pending Magnesium Level Pending Troponin I 1.070 *H Subjective 24 Hr Interval Summary Free Text/Dictation Patient remains intubated on hypothermia protocol. Plans to transition to rewarming tonight. Exam/Review of Systems Exam Vitals Vital Signs Date Temp Pulse Resp B/P (MAP) Pulse Ox O2 O2 Flow FiO2 Time Delivery Rate 08/06/18 60 20 100 30 07:20 08/06/18 91.0 107/64 07:00 (78) 08/05/18 Mechanical 19:45 Ventilator Intake and Output 08/05/18 08/05/18 08/06/18 1515:00 23:00 07:00 IntakeIntake Total 1373.10 ml 688.42 ml 1020.34 ml OutputOutput Total 631 ml 493 ml 399 ml BalanceBalance 742.10 ml 195.42 ml 621.34 ml Exam General: Patient is laying in bed, intubated and sedated Head: Normocephalic atraumatic Eyes: EOMI, pupils reactive to light Neck: Supple, nontender, midline Respiratory: Clear to auscultation bilaterally. Diminished at bases. no wheezing appreciated Cardiovascular: regular rate and rhythm, no obvious murmurs Gastrointestinal: soft, nontender, nondistended, bowel sounds heard. Neurological: diffuse swelling UE and LE bilaterally Skin: No new skin lesions Results Results 24hrs Laboratory Tests Test 08/05/18 10:54 08/05/18 11:02 08/05/18 12:15 08/05/18 12:18 Blood Gas Blood arterial Specimen Source Arterial Blood 08/05/2018 1:03: Date Drawn 00 PM Arterial Blood 7.294 *L pH (Temp corrected) Arterial Blood 10.1 L pCO2 (Temp correct) Arterial Blood 122.5 H pO2 (Temp corrected) Arterial Blood 4.8 *L HCO3 Arterial Blood -20.5 L Base Excess Arterial Blood 96.5 Oxygen Saturatio n Dajuan Test N/A Arterial Blood A-Line Gas Puncture Site Arterial 0.1 Blood Carboxyhem oglobin Arterial Blood 1.5 Methemoglobin Blood Gas A-a O2 79.5 H Differential Oxyhemoglobin 95.0 Percent Blood Gas 37.0 Temperature Blood Gas 12.0 Respiration Rate Blood Gas Actual 22 Respiration Rate Blood Gas VENT - AC Modality FiO2 30.0 Blood Gas Tidal 450.0 Volume Blood Gas Low 5.0 PEEP Setting Blood Gas YABEL R.N. Critical Value Read Back Blood Gas MDA Notified Whom Blood Gas 08/05/2018 1:08: Notified Time 00 PM Creatine Kinase 300 H Creatine Kinase 7.7 Index Creatinine 23.20 H Kinase MB (Mass) Troponin I 4.950 *H Urine Color YELLOW Urine Clarity CLEAR Urine pH 5.0 Urine Specific 1.025 [place] Urine Ketones NEGATIVE Urine Nitrite NEGATIVE Urine Bilirubin NEGATIVE Urine NEGATIVE Urobilinogen Urine Leukocyte NEGATIVE Esterase Urine 2 Microscopic RBC Urine 17 H Microscopic WBC Urine Squamous FEW Epithelial Cells Urine Bacteria FEW A Urine Hemoglobin NEGATIVE Urine Glucose NEGATIVE Urine Total 2+ H Protein Urine NEGATIVE Test White Blood 7.6 Count Red Blood Count 3.44 L Hemoglobin 9.9 L Hematocrit 29.3 L Mean Corpuscular 85.2 Volume Mean Corpuscular 28.8 L Hemoglobin Mean Corpuscular 33.8 Hemoglobin Ken[place] nt Red Cell 13.2 Distribution Width Platelet Count 149 Mean Platelet 12.8 H Volume Immature 0.400 Granulocytes % Neutrophils % 79.3 H Lymphocytes % 11.6 L Monocytes % 8.3 Eosinophils % 0.1 Basophils % 0.3 Nucleated Red 0.0 Blood Cells % Immature 0.030 Granulocytes # Neutrophils # 6.0 Lymphocytes # 0.9 Monocytes # 0.6 Eosinophils # 0.0 Basophils # 0.0 Nucleated Red 0.0 Blood Cells # Prothrombin Time 13.2 Prothrombin Time 1.0 Ratio INR 0.99 International Normalized Ratio Activated 34.3 Partial Thrombop last Time Fibrinogen 398.0 D-Dimer 2875.57 H D-Dimer Comment Test 08/05/18 12:22 08/05/18 13:59 08/05/18 15:19 08/05/18 16:14 Sodium Level 138 Potassium Level 3.9 Chloride Level 115 H Carbon Dioxide 15 L Level Anion Gap 8 Blood Urea 24 H Nitrogen Creatinine 0.97 Est Glomerular > 60 Filtrat Rate mL/min Glucose Level 125 Lactic Acid 0.6 Level Calcium Level 8.2 L Phosphorus Level 3.7 Magnesium Level 1.6 L Creatine Kinase 294 H Creatine Kinase 7.4 Index Creatinine 21.90 H Kinase MB (Mass) Troponin I 4.560 *H Amylase Level 66 Lipase 92 Bedside Glucose 139 152 84 Test 08/05/18 16:55 08/05/18 17:51 08/05/18 19:00 08/05/18 19:36 Bedside Glucose 138 140 136 87 Test 08/05/18 20:00 08/05/18 20:15 08/05/18 23:37 08/06/18 00:43 Blood Gas Blood arterial Specimen Source Arterial Blood 08/05/2018 8:15: Date Drawn 00 PM Arterial Blood 7.553 *H pH (Temp corrected) Arterial Blood 14.5 L pCO2 (Temp correct) Arterial Blood 163.1 H pO2 (Temp corrected) Arterial Blood 12.9 L HCO3 Arterial Blood -8.1 L Base Excess Arterial Blood 98.8 H Oxygen Saturatio n Dajuan Test N/A Arterial Blood A-Line Gas Puncture Site Arterial 0.3 Blood Carboxyhem oglobin Arterial Blood 0.3 Methemoglobin Blood Gas A-a O2 36.6 H Differential Oxyhemoglobin 98.2 Percent Blood Gas 32.9 Temperature Blood Gas 28.0 Respiration Rate Blood Gas Actual 28 Respiration Rate Blood Gas VENT - AC Modality FiO2 30.0 Blood Gas Tidal 450.0 Volume Blood Gas Low 5.0 PEEP Setting Blood Gas 22.0 Inspiratory Pressure Blood Gas Sherita RO RN Critical Value Read Back Blood Gas MR Notified Whom Blood Gas 08/05/2018 8:26: Notified Time 00 PM White Blood 7.1 Count Red Blood Count 3.47 L Hemoglobin 10.0 L Hematocrit 29.2 L Mean Corpuscular 84.1 Volume Mean Corpuscular 28.8 L Hemoglobin Mean Corpuscular 34.2 Hemoglobin [place] nt Red Cell 13.1 Distribution Width Platelet Count 142 Mean Platelet 12.7 H Volume Immature 0.400 Granulocytes % Neutrophils % 76.2 Lymphocytes % 15.3 Monocytes % 7.6 Eosinophils % 0.1 Basophils % 0.4 Nucleated Red 0.0 Blood Cells % Immature 0.030 Granulocytes # Neutrophils # 5.4 Lymphocytes # 1.1 Monocytes # 0.5 Eosinophils # 0.0 Basophils # 0.0 Nucleated Red 0.0 Blood Cells # Sodium Level 136 Potassium Level 3.4 L Chloride Level 114 H Carbon Dioxide 12 L Level Anion Gap 10 Blood Urea 20 Nitrogen Creatinine 0.78 Est Glomerular > 60 Filtrat Rate mL/min Glucose Level 126 Lactic Acid 0.8 Level Calcium Level 8.5 Phosphorus Level 3.1 Magnesium Level 2.8 #H Troponin I 2.010 *H Bedside Glucose 116 Prothrombin Time 14.1 Prothrombin Time 1.1 Ratio INR 1.08 International Normalized Ratio Activated 36.0 H Partial Thrombop last Time Fibrinogen 436.0 # Amylase Level 36 Lipase 58 Test 08/06/18 02:00 08/06/18 02:13 08/06/18 06:00 08/06/18 08:00 Blood Gas Blood arterial Blood arterial Specimen Source Arterial Blood 08/06/2018 2:15: 08/06/2018 7:31: Date Drawn 02 AM 00 AM Arterial Blood 7.437 7.449 pH (Temp corrected) Arterial Blood 21.5 L 20.2 L pCO2 (Temp correct) Arterial Blood 98.9 119.7 H pO2 (Temp corrected) Arterial Blood 14.7 L 14.3 L HCO3 Arterial Blood -9.0 L -9.4 L Base Excess Arterial Blood 97.7 98.0 Oxygen Saturatio n Dajuan Test N/A N/A Arterial Blood A-Line A-Line Gas Puncture Site Arterial 0.2 0.2 Blood Carboxyhem oglobin Arterial Blood 0.3 0.3 Methemoglobin Blood Gas A-a O2 92.5 H 73.6 H Differential Oxyhemoglobin 97.2 97.5 Percent Blood Gas 33.1 32.5 Temperature Blood Gas 20.0 20.0 Respiration Rate Blood Gas Actual 20 20 Respiration Rate Blood Gas VENT - AC VENT - AC Modality FiO2 30.0 30.0 Blood Gas Tidal 450.0 450.0 Volume Blood Gas Low 5.0 5.0 PEEP Setting Blood Gas 22.0 Inspiratory Pressure Blood Gas MR BAUTISTA Notified Whom Blood Gas 08/06/2018 2:29: 08/06/2018 7:41: Notified Time 45 AM 00 AM White Blood 5.3 # Count Red Blood Count 3.15 L Hemoglobin 8.9 L Hematocrit 26.4 L Mean Corpuscular 83.8 Volume Mean Corpuscular 28.3 L Hemoglobin Mean Corpuscular 33.7 Hemoglobin [place] nt Red Cell 13.2 Distribution Width Platelet Count 114 L Mean Platelet 12.6 H Volume Immature 0.600 H Granulocytes % Neutrophils % 67.9 Lymphocytes % 22.6 Monocytes % 7.9 Eosinophils % 0.8 Basophils % 0.2 Nucleated Red 0.0 Blood Cells % Immature 0.030 Granulocytes # Neutrophils # 3.6 Lymphocytes # 1.2 Monocytes # 0.4 Eosinophils # 0.0 Basophils # 0.0 Nucleated Red 0.0 Blood Cells # Sodium Level 139 Potassium Level 3.1 L Chloride Level 117 H Carbon Dioxide 14 L Level Anion Gap 8 Blood Urea 19 Nitrogen Creatinine 0.81 Est Glomerular > 60 Filtrat Rate mL/min Glucose Level 107 Lactic Acid 0.7 Level Calcium Level 7.8 L Phosphorus Level 3.8 Magnesium Level 2.4 Troponin I 1.110 *H Bedside Glucose 108 Test 08/06/18 08:07 White Blood 4.0 #L Count Red Blood Count 2.97 L Hemoglobin 8.5 L Hematocrit 25.1 L Mean Corpuscular 84.5 Volume Mean Corpuscular 28.6 L Hemoglobin Mean Corpuscular 33.9 Hemoglobin [place] nt Red Cell 13.3 Distribution Width Platelet Count 94 L Mean Platelet 12.5 H Volume Immature 0.500 H Granulocytes % Neutrophils % 63.3 Lymphocytes % 25.1 Monocytes % 8.3 Eosinophils % 2.3 Basophils % 0.5 Nucleated Red 0.0 Blood Cells % Immature 0.020 Granulocytes # Neutrophils # 2.5 Lymphocytes # 1.0 Monocytes # 0.3 Eosinophils # 0.1 Basophils # 0.0 Nucleated Red 0.0 Blood Cells # Sodium Level Pending Potassium Level Pending Chloride Level Pending Carbon Dioxide Pending Level Anion Gap Pending Blood Urea Pending Nitrogen Creatinine Pending Est Glomerular Pending Filtrat Rate mL/min Glucose Level Pending Lactic Acid 0.9 Level Calcium Level Pending Phosphorus Level Pending Magnesium Level Pending Troponin I 1.070 *H Medications Medication Current Medications Norepinephrine 250 ml @ 1.875 mls/ hr TITRATE IV ; Start 08/04/18 at 23:15 Ticagrelor (Brilinta) 90 mg BID PO Last administered on 08/06/18 08:53; Admin Dose 90 MG; Start 08/05/18 at 09:00 Morphine Sulfate (morphine) 1 mg Q1H PRN IV PAIN Last administered on 08/05/18 00:55; Admin Dose 1 MG; Start 08/04/18 at 23:30 Docusate Sodium (Colace) 100 mg BID PO Last administered on 08/05/18 08:52; Admin Dose 100 MG; Start 08/05/18 at 09:00 Carvedilol (Coreg) 12.5 mg QID PO Last administered on 08/05/18 17:12; Admin Dose 12.5 MG; Start 08/04/18 at 23:30 Atorvastatin Calcium (Lipitor) 80 mg DAILY@21 PO Last administered on 08/05/18 21:16; Admin Dose 80 MG; Start 08/05/18 at 21:00 Miscellaneous Information (* Miscellaneous Pharmacy Order) Treatment of Hypoglycemia: 1.BG 51... Per protocol XX ; Start 08/05/18 at 01:30 Nitroglycerin/ Dextrose 250 ml @ 1.5 mls/hr TITRATE IV Last administered on 08/05/18 14:22; Admin Dose 72 MLS/HR; Start 08/05/18 at 01:00 Propofol 100 ml @ 2.772 mls/ hr Q12H IV Last administered on 08/06/18 06:20; Admin Dose 27.72 MLS/HR; Start 08/05/18 at 04:00 Midazolam HCl 50 ml @ 1 mls/hr TITRATE IV Last administered on 08/05/18at 19:22; Admin Dose 8 MLS/HR; Start 08/05/18 at 07:30 Miscellaneous Information 1 ea NOTE XX ; Start 08/05/18 at 09:00 Acetaminophen (Tylenol Supp) 650 mg Q4H PRN MD TEMP > 37C; Start 08/05/18 at 11:00 Acetaminophen (Tylenol Liquid) 650 mg Q4H PRN PO TEMP > 37C; Start 08/05/18 at 11:00 Acetaminophen (Tylenol Supp) 500 mg Q6H MD ; Start 08/06/18 at 12:00 Acetaminophen (Tylenol Liquid) 500 mg Q6H PO Last administered on 08/05/18at 14:57; Admin Dose 500 MG; Start 08/06/18 at 12:00 Meperidine HCl (Demerol) 25 mg Q4H PRN IV POST OPERATIVE SHIVERING Last adminis tered on 08/05/18at 16:31; Admin Dose 25 MG; Start 08/05/18 at 11:00 Eye Lubricant ([place] Oint) 1 applic Q6 BOTH EYES Last administered on 08/06/18at 06:08; Admin Dose 1 APPLIC; Start 08/05/18 at 12:00 Eye Lubricant (Artificial Tears Oph) 2 drop Q6 BOTH EYES Last administered on 08/06/18at 06:09; Admin Dose 2 DROP; Start 08/05/18 at 12:00 Miscellaneous Information (* Miscellaneous Pharmacy Order) Treatment of Hypoglycemia: 1.BG 51... Per protocol XX ; Start 08/05/18 at 12:00 Dextrose (D50w Syringe) 25 ml Q15M PRN IV .DECREASED GLUCOSE; Start 08/05/18 at 12:00 Dextrose (D50w Syringe) 50 ml Q15M PRN IV .DECREASED GLUCOSE; Start 08/05/18 at 12:00 Insulin Human Regular 100 unit/ Sodium Chloride 100 ml @ 0 mls/hr PER PROTOCOL IV ; Start 08/05/18 at 12:00 Miscellaneous Information (* Miscellaneous Pharmacy Order) Treatment of Hypoglycemia: 1.BG 51... Per protocol XX ; Start 08/05/18 at 12:00 Dextrose (D50w Syringe) 25 ml Q15M PRN IV .DECREASED GLUCOSE; Start 08/05/18 at 12:00 Dextrose (D50w Syringe) 50 ml Q15M PRN IV .DECREASED GLUCOSE; Start 08/05/18 at 12:00 Fentanyl 100 ml @ 2.5 mls/hr TITRATE IV Last administered on 08/05/18at 19:21; Admin Dose 10 MLS/HR; Start 08/05/18 at 12:00 Vecuronium [place] 100 mg/ Dextrose 100 ml @ 4.62 mls/hr TITRATE IV Last administered on 08/05/18at 16:59; Admin Dose 4.62 MLS/HR; Start 08/05/18 at 16:00 Meperidine HCl (Demerol) 12.5 mg Q2H PRN IV POST OPERATIVE SHIVERING; Start 08/05/18 at 17:00 Sodium Chloride 1,000 ml @ 100 mls/hr Q10H IV Last administered on 08/06/18at 06:20; Admin Dose 100 MLS/HR; Start 08/05/18 at 20:30 Aspirin (Aspirin) 81 mg DAILY NGT Last administered on 08/06/18at 08:51; Admin Dose 81 MG; Start 08/06/18 at 09:00 THOMAS RILEY MD Aug 06, 2018 09:15
--- NOTE | 2018-08-06 09:54 | CONS ---
Consult Date/Type/Reason Admit Date/Time Aug 04, 2018 at 23:10 Initial Consult Date 08/05/18 Type of Consult Pulmonary Requesting Provider: HARPAL AGGARWAL MD Date/Time of Note DATE: 08/06/18 TIME: 09:53 Subjective Continues hypothermia protocol with paralysis and sedation. Moderate urine output with no vasopressor requirements at present. Objective Vital Signs Date Temp Pulse Resp B/P (MAP) Pulse Ox O2 O2 Flow FiO2 Time Delivery Rate 08/06/18 63 20 106/63 100 09:15 (77) 08/06/18 91.0 09:00 08/06/18 30 07:20 08/05/18 Mechanical 19:45 Ventilator Intake and Output 08/05/18 08/05/18 08/06/18 1515:00 23:00 07:00 IntakeIntake Total 1373.10 ml 688.42 ml 1020.34 ml OutputOutput Total 631 ml 493 ml 399 ml BalanceBalance 742.10 ml 195.42 ml 621.34 ml Exam Young lady orally intubated on mechanical ventilation VITAL SIGNS: per chart NECK: Supple. No JVD or lymphadenopathy. CARDIAC EXAM: S1, S2. No added sounds or murmurs. CHEST: Diminished air entry bilaterally ABDOMEN: Soft, nontender. No guarding or rebound. Diminished bowel sounds EXTREMITIES: No cyanosis, clubbing edema +2 NEUROLOGIC: Unable to assess Vent Setting Ventilator Support Mode: AC Fraction of Inspired Oxygen pe: 30 Positive End Expiratory Pressu: 5.0 Results/Medications Result Diagram: 08/06/18 0807 08/06/18 0807 Results 24 hrs Laboratory Tests Test 08/05/18 10:54 08/05/18 11:02 08/05/18 12:15 08/05/18 12:18 Blood Gas Blood arterial Specimen Source Arterial Blood 08/05/2018 1:03: Date Drawn 00 PM Arterial Blood 7.294 *L pH (Temp corrected) Arterial Blood 10.1 L pCO2 (Temp correct) Arterial Blood 122.5 H pO2 (Temp corrected) Arterial Blood 4.8 *L HCO3 Arterial Blood -20.5 L Base Excess Arterial Blood 96.5 Oxygen Saturatio n Dajuan Test N/A Arterial Blood A-Line Gas Puncture Site Arterial 0.1 Blood Carboxyhem oglobin Arterial Blood 1.5 Methemoglobin Blood Gas A-a O2 79.5 H Differential Oxyhemoglobin 95.0 Percent Blood Gas 37.0 Temperature Blood Gas 12.0 Respiration Rate Blood Gas Actual 22 Respiration Rate Blood Gas VENT - AC Modality FiO2 30.0 Blood Gas Tidal 450.0 Volume Blood Gas Low 5.0 PEEP Setting Blood Gas YABEL R.N. Critical Value Read Back Blood Gas MDA Notified Whom Blood Gas 08/05/2018 1:08: Notified Time 00 PM Creatine Kinase 300 H Creatine Kinase 7.7 Index Creatinine 23.20 H Kinase MB (Mass) Troponin I 4.950 *H Urine Color YELLOW Urine Clarity CLEAR Urine pH 5.0 Urine Specific 1.025 [place] Urine Ketones NEGATIVE Urine Nitrite NEGATIVE Urine Bilirubin NEGATIVE Urine NEGATIVE Urobilinogen Urine Leukocyte NEGATIVE Esterase Urine 2 Microscopic RBC Urine 17 H Microscopic WBC Urine Squamous FEW Epithelial Cells Urine Bacteria FEW A Urine Hemoglobin NEGATIVE Urine Glucose NEGATIVE Urine Total 2+ H Protein Urine NEGATIVE Test White Blood 7.6 Count Red Blood Count 3.44 L Hemoglobin 9.9 L Hematocrit 29.3 L Mean Corpuscular 85.2 Volume Mean Corpuscular 28.8 L Hemoglobin Mean Corpuscular 33.8 Hemoglobin [place] nt Red Cell 13.2 Distribution Width Platelet Count 149 Mean Platelet 12.8 H Volume Immature 0.400 Granulocytes % Neutrophils % 79.3 H Lymphocytes % 11.6 L Monocytes % 8.3 Eosinophils % 0.1 Basophils % 0.3 Nucleated Red 0.0 Blood Cells % Immature 0.030 Granulocytes # Neutrophils # 6.0 Lymphocytes # 0.9 Monocytes # 0.6 Eosinophils # 0.0 Basophils # 0.0 Nucleated Red 0.0 Blood Cells # Prothrombin Time 13.2 Prothrombin Time 1.0 Ratio INR 0.99 International Normalized Ratio Activated 34.3 Partial Thrombop last Time Fibrinogen 398.0 D-Dimer 2875.57 H D-Dimer Comment Test 08/05/18 12:22 08/05/18 13:59 08/05/18 15:19 08/05/18 16:14 Sodium Level 138 Potassium Level 3.9 Chloride Level 115 H Carbon Dioxide 15 L Level Anion Gap 8 Blood Urea 24 H Nitrogen Creatinine 0.97 Est Glomerular > 60 Filtrat Rate mL/min Glucose Level 125 Lactic Acid 0.6 Level Calcium Level 8.2 L Phosphorus Level 3.7 Magnesium Level 1.6 L Creatine Kinase 294 H Creatine Kinase 7.4 Index Creatinine 21.90 H Kinase MB (Mass) Troponin I 4.560 *H Amylase Level 66 Lipase 92 Bedside Glucose 139 152 84 Test 08/05/18 16:55 08/05/18 17:51 08/05/18 19:00 08/05/18 19:36 Bedside Glucose 138 140 136 87 Test 08/05/18 20:00 08/05/18 20:15 08/05/18 23:37 08/06/18 00:43 Blood Gas Blood arterial Specimen Source Arterial Blood 08/05/2018 8:15: Date Drawn 00 PM Arterial Blood 7.553 *H pH (Temp corrected) Arterial Blood 14.5 L pCO2 (Temp correct) Arterial Blood 163.1 H pO2 (Temp corrected) Arterial Blood 12.9 L HCO3 Arterial Blood -8.1 L Base Excess Arterial Blood 98.8 H Oxygen Saturatio n Dajuan Test N/A Arterial Blood A-Line Gas Puncture Site Arterial 0.3 Blood Carboxyhem oglobin Arterial Blood 0.3 Methemoglobin Blood Gas A-a O2 36.6 H Differential Oxyhemoglobin 98.2 Percent Blood Gas 32.9 Temperature Blood Gas 28.0 Respiration Rate Blood Gas Actual 28 Respiration Rate Blood Gas VENT - AC Modality FiO2 30.0 Blood Gas Tidal 450.0 Volume Blood Gas Low 5.0 PEEP Setting Blood Gas 22.0 Inspiratory Pressure Blood Gas Sherita RO RN Critical Value Read Back Blood Gas MR Notified Whom Blood Gas 08/05/2018 8:26: Notified Time 00 PM White Blood 7.1 Count Red Blood Count 3.47 L Hemoglobin 10.0 L Hematocrit 29.2 L Mean Corpuscular 84.1 Volume Mean Corpuscular 28.8 L Hemoglobin Mean Corpuscular 34.2 Hemoglobin [place] nt Red Cell 13.1 Distribution Width Platelet Count 142 Mean Platelet 12.7 H Volume Immature 0.400 Granulocytes % Neutrophils % 76.2 Lymphocytes % 15.3 Monocytes % 7.6 Eosinophils % 0.1 Basophils % 0.4 Nucleated Red 0.0 Blood Cells % Immature 0.030 Granulocytes # Neutrophils # 5.4 Lymphocytes # 1.1 Monocytes # 0.5 Eosinophils # 0.0 Basophils # 0.0 Nucleated Red 0.0 Blood Cells # Sodium Level 136 Potassium Level 3.4 L Chloride Level 114 H Carbon Dioxide 12 L Level Anion Gap 10 Blood Urea 20 Nitrogen Creatinine 0.78 Est Glomerular > 60 Filtrat Rate mL/min Glucose Level 126 Lactic Acid 0.8 Level Calcium Level 8.5 Phosphorus Level 3.1 Magnesium Level 2.8 #H Troponin I 2.010 *H Bedside Glucose 116 Prothrombin Time 14.1 Prothrombin Time 1.1 Ratio INR 1.08 International Normalized Ratio Activated 36.0 H Partial Thrombop last Time Fibrinogen 436.0 # Amylase Level 36 Lipase 58 Test 08/06/18 02:00 08/06/18 02:13 08/06/18 06:00 08/06/18 08:00 Blood Gas Blood arterial Blood arterial Specimen Source Arterial Blood 08/06/2018 2:15: 08/06/2018 7:31: Date Drawn 02 AM 00 AM Arterial Blood 7.437 7.449 pH (Temp corrected) Arterial Blood 21.5 L 20.2 L pCO2 (Temp correct) Arterial Blood 98.9 119.7 H pO2 (Temp corrected) Arterial Blood 14.7 L 14.3 L HCO3 Arterial Blood -9.0 L -9.4 L Base Excess Arterial Blood 97.7 98.0 Oxygen Saturatio n Dajuan Test N/A N/A Arterial Blood A-Line A-Line Gas Puncture Site Arterial 0.2 0.2 Blood Carboxyhem oglobin Arterial Blood 0.3 0.3 Methemoglobin Blood Gas A-a O2 92.5 H 73.6 H Differential Oxyhemoglobin 97.2 97.5 Percent Blood Gas 33.1 32.5 Temperature Blood Gas 20.0 20.0 Respiration Rate Blood Gas Actual 20 20 Respiration Rate Blood Gas VENT - AC VENT - AC Modality FiO2 30.0 30.0 Blood Gas Tidal 450.0 450.0 Volume Blood Gas Low 5.0 5.0 PEEP Setting Blood Gas 22.0 Inspiratory Pressure Blood Gas TM Notified Whom Blood Gas 08/06/2018 2:29: 08/06/2018 7:41: Notified Time 45 AM 00 AM White Blood 5.3 # Count Red Blood Count 3.15 L Hemoglobin 8.9 L Hematocrit 26.4 L Mean Corpuscular 83.8 Volume Mean Corpuscular 28.3 L Hemoglobin Mean Corpuscular 33.7 Hemoglobin [place] nt Red Cell 13.2 Distribution Width Platelet Count 114 L Mean Platelet 12.6 H Volume Immature 0.600 H Granulocytes % Neutrophils % 67.9 Lymphocytes % 22.6 Monocytes % 7.9 Eosinophils % 0.8 Basophils % 0.2 Nucleated Red 0.0 Blood Cells % Immature 0.030 Granulocytes # Neutrophils # 3.6 Lymphocytes # 1.2 Monocytes # 0.4 Eosinophils # 0.0 Basophils # 0.0 Nucleated Red 0.0 Blood Cells # Sodium Level 139 Potassium Level 3.1 L Chloride Level 117 H Carbon Dioxide 14 L Level Anion Gap 8 Blood Urea 19 Nitrogen Creatinine 0.81 Est Glomerular > 60 Filtrat Rate mL/min Glucose Level 107 Lactic Acid 0.7 Level Calcium Level 7.8 L Phosphorus Level 3.8 Magnesium Level 2.4 Troponin I 1.110 *H Bedside Glucose 108 Test 08/06/18 08:07 White Blood 4.0 #L Count Red Blood Count 2.97 L Hemoglobin 8.5 L Hematocrit 25.1 L Mean Corpuscular 84.5 Volume Mean Corpuscular 28.6 L Hemoglobin Mean Corpuscular 33.9 Hemoglobin [place] nt Red Cell 13.3 Distribution Width Platelet Count 94 L Mean Platelet 12.5 H Volume Immature 0.500 H Granulocytes % Neutrophils % 63.3 Lymphocytes % 25.1 Monocytes % 8.3 Eosinophils % 2.3 Basophils % 0.5 Nucleated Red 0.0 Blood Cells % Immature 0.020 Granulocytes # Neutrophils # 2.5 Lymphocytes # 1.0 Monocytes # 0.3 Eosinophils # 0.1 Basophils # 0.0 Nucleated Red 0.0 Blood Cells # Sodium Level 138 Potassium Level 4.1 Chloride Level 119 H Carbon Dioxide 14 L Level Anion Gap 5 Blood Urea 19 Nitrogen Creatinine 0.81 Est Glomerular > 60 Filtrat Rate mL/min Glucose Level 109 Lactic Acid 0.9 Level Calcium Level 7.5 L Phosphorus Level 3.6 Magnesium Level 2.3 Troponin I 1.070 *H Medications Current Medications Norepinephrine 250 ml @ 1.875 mls/ hr TITRATE IV ; Start 08/04/18 at 23:15 Ticagrelor (Brilinta) 90 mg BID PO Last administered on 08/06/18at 08:53; Admin Dose 90 MG; Start 08/05/18 at 09:00 Morphine Sulfate (morphine) 1 mg Q1H PRN IV PAIN Last administered on 08/05/18at 00:55; Admin Dose 1 MG; Start 08/04/18 at 23:30 Docusate Sodium (Colace) 100 mg BID PO Last administered on 08/05/18at 08:52; Admin Dose 100 MG; Start 08/05/18 at 09:00 Carvedilol (Coreg) 12.5 mg QID PO Last administered on 08/05/18 17:12; Admin Dose 12.5 MG; Start 08/04/18 at 23:30 Atorvastatin Calcium (Lipitor) 80 mg DAILY@21 PO Last administered on 08/05/18 21:16; Admin Dose 80 MG; Start 08/05/18 at 21:00 Miscellaneous Information (* Miscellaneous Pharmacy Order) Treatment of Hypoglycemia: 1.BG 51... Per protocol XX ; Start 08/05/18 at 01:30 Nitroglycerin/ Dextrose 250 ml @ 1.5 mls/hr TITRATE IV Last administered on 08/05/18 14:22; Admin Dose 72 MLS/HR; Start 08/05/18 at 01:00 Propofol 100 ml @ 2.772 mls/ hr Q12H IV Last administered on 08/06/18 09:51; Admin Dose 27.72 MLS/HR; Start 08/05/18 at 04:00 Midazolam HCl 50 ml @ 1 mls/hr TITRATE IV Last administered on 08/05/18at 19:22; Admin Dose 8 MLS/HR; Start 08/05/18 at 07:30 Miscellaneous Information 1 ea NOTE XX ; Start 08/05/18 at 09:00 Acetaminophen (Tylenol Supp) 650 mg Q4H PRN MS TEMP > 37C; Start 08/05/18 at 11:00 Acetaminophen (Tylenol Liquid) 650 mg Q4H PRN PO TEMP > 37C; Start 08/05/18 at 11:00 Acetaminophen (Tylenol Supp) 500 mg Q6H MS ; Start 08/06/18 at 12:00 Acetaminophen (Tylenol Liquid) 500 mg Q6H PO Last administered on 08/05/18at 14:57; Admin Dose 500 MG; Start 08/06/18 at 12:00 Meperidine HCl (Demerol) 25 mg Q4H PRN IV POST OPERATIVE SHIVERING Last administered on 08/05/18at 16:31; Admin Dose 25 MG; Start 08/05/18 at 11:00 Eye Lubricant (Akwa Oint) 1 applic Q6 BOTH EYES Last administered on 08/06/18 06:08; Admin Dose 1 APPLIC; Start 08/05/18 at 12:00 Eye Lubricant (Artificial Tears Oph) 2 drop Q6 BOTH EYES Last administered on 08/06/18at 06:09; Admin Dose 2 DROP; Start 08/05/18 at 12:00 Miscellaneous Information (* Miscellaneous Pharmacy Order) Treatment of Hypoglycemia: 1.BG 51... Per protocol XX ; Start 08/05/18 at 12:00 Dextrose (D50w Syringe) 25 ml Q15M PRN IV .DECREASED GLUCOSE; Start 08/05/18 at 12:00 Dextrose (D50w Syringe) 50 ml Q15M PRN IV .DECREASED GLUCOSE; Start 08/05/18 at 12:00 Insulin Human Regular 100 unit/ Sodium Chloride 100 ml @ 0 mls/hr PER PROTOCOL IV ; Start 08/05/18 at 12:00 Miscellaneous Information (* Miscellaneous Pharmacy Order) Treatment of Hypoglycemia: 1.BG 51... Per protocol XX ; Start 08/05/18 at 12:00 Dextrose (D50w Syringe) 25 ml Q15M PRN IV .DECREASED GLUCOSE; Start 08/05/18 at 12:00 Dextrose (D50w Syringe) 50 ml Q15M PRN IV .DECREASED GLUCOSE; Start 08/05/18 at 12:00 Fentanyl 100 ml @ 2.5 mls/hr TITRATE IV Last administered on 08/05/18at 19:21; Admin Dose 10 MLS/HR; Start 08/05/18 at 12:00 Vecuronium [place] 100 mg/ Dextrose 100 ml @ 4.62 mls/hr TITRATE IV Last administered on 08/05/18at 16:59; Admin Dose 4.62 MLS/HR; Start 08/05/18 at 16:00 Meperidine HCl (Demerol) 12.5 mg Q2H PRN IV POST OPERATIVE SHIVERING; Start 08/05/18 at 17:00 Sodium Chloride 1,000 ml @ 100 mls/hr Q10H IV Last administered on 08/06/18at 06:20; Admin Dose 100 MLS/HR; Start 08/05/18 at 20:30 Aspirin (Aspirin) 81 mg DAILY NGT Last administered on 08/06/18at 08:51; Admin Dose 81 MG; Start 08/06/18 at 09:00 Assessment/Plan Hospital Course (Demo Recall) IMP: 1. Ventricular Fibrillation Arrest--s/p ROSC 2/2 STEMI s/p PCI 2. STEMI 3. 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 HUSEYIN--likely ATN 5. Ischemic hepatopathy--2/2 arrest 6. Metabolic acidosis--2/2 arrest RECS: 1. Continues hypothermia protocol 2. Avoid benzo's 3. Vent support--V-AC; VT 450; PEEP 5; FiO2 .30 4. Post-PCI management per Cards 5. Follow renal function and liver tests 6. Follow-up TTE 7. DVT and GI prophylaxis 8. Prognosis guarded Critical care time 40 minutes CHINO ANDERSON MD, [facility] Aug 06, 2018 09:54
[2018-08-06] MEDS ORDERED: ACETAMINOPHEN 650 MG SUPP PR SCH (12:00)
[2018-08-06] MEDS ORDERED: FUROSEMIDE 20 MG INJ IV STA (13:18)
--- NOTE | 2018-08-06 14:23 | CONS ---
Consult Date/Type/Reason Admit Date/Time Aug 04, 2018 at 23:10 Initial Consult Date 08/05/18 Type of Consultation: cv Requesting Provider: HARPAL AGGARWAL MD Date/Time of Note DATE: 08/06/18 TIME: 14:15 Subjective Interventional cardiology follow-up progress note/critical care Subjective: Events noted discussed with the staff and physicians. d/w son Patient remains intubated on the vent on hypothermia protocol. No tachycardia or fibrillation. Nonresponsive nonverbal. Objective: General: Obese female started with intubation on the vent HEENT: NC/AT. pupils are equal. round. NECK: . no stridor. CV: RRR. systolic murmur; no gallop or rubs. PULM: no wheezing or rhonchi. GI: Obese SOFT, NT, ND, no rebound or guarding Extremity: trace B/L LE edema. no clubbing. neuro: Sedated Psych: Calm now rectal: deferred As: Right femoral sheath in place EKG August 06, 2018 was personally within normal sinus rhythm. T wave inversions anterior and inferior leads Chest x-ray done August 06 shows:No evidence for active cardiopulmonary disease. Objective Vitals Vital Signs Date Temp Pulse Resp B/P (MAP) Pulse Ox O2 O2 Flow FiO2 Time Delivery Rate 08/06/18 91.7 68 20 121/70 100 13:00 (87) 08/06/18 30 10:10 08/05/18 Mechanical 19:45 Ventilator Intake and Output 08/05/18 08/05/18 08/06/18 1515:00 23:00 07:00 IntakeIntake Total 1373.10 ml 688.42 ml 1197.34 ml OutputOutput Total 631 ml 493 ml 399 ml BalanceBalance 742.10 ml 195.42 ml 798.34 ml Results/Medications Result Diagram: 08/06/18 0807 08/06/18 0807 Results 24 hrs Laboratory Tests Test 08/05/18 15:19 08/05/18 16:14 08/05/18 16:55 08/05/18 17:51 Bedside Glucose 152 84 138 140 Test 08/05/18 19:00 08/05/18 19:36 08/05/18 20:00 08/05/18 20:15 Bedside Glucose 136 87 Blood Gas Blood Specimen arterial Source Arterial Blood 08/05/2018 8:15 Date Drawn :00 PM Arterial Blood 7.553 *H pH (Temp corrected ) Arterial Blood 14.5 L pCO2 (Temp correct) Arterial Blood 163.1 H pO2 (Temp corrected ) Arterial Blood 12.9 L HCO3 Arterial Blood -8.1 L Base Excess Arterial Blood 98.8 H Oxygen Saturati on Dajuan Test N/A Arterial Blood A-Line Gas Puncture Site Arterial 0.3 Blood Carboxyhe moglobin Arterial Blood 0.3 Methemoglobin Blood Gas A-a 36.6 H O2 Differential Oxyhemoglobin 98.2 Percent Blood Gas 32.9 Temperature Blood Gas 28.0 Respiration Rate Blood Gas 28 Actual Respiration Rat e Blood Gas VENT - AC Modality FiO2 30.0 Blood Gas Tidal 450.0 Volume Blood Gas Low 5.0 PEEP Setting Blood Gas 22.0 Inspiratory Pressure Blood Gas Sherita RO RN Critical Value Read Back Blood Gas MR Notified Whom Blood Gas 08/05/2018 8:26 Notified Time :00 PM White Blood 7.1 Count Red Blood Count 3.47 L Hemoglobin 10.0 L Hematocrit 29.2 L Mean 84.1 Corpuscular Volume Mean 28.8 L Corpuscular Hemoglobin Mean 34.2 Corpuscular Hemoglobin Conc ent Red Cell 13.1 Distribution Width Platelet Count 142 Mean Platelet 12.7 H Volume Immature 0.400 Granulocytes % Neutrophils % 76.2 Lymphocytes % 15.3 Monocytes % 7.6 Eosinophils % 0.1 Basophils % 0.4 Nucleated Red 0.0 Blood Cells % Immature 0.030 Granulocytes # Neutrophils # 5.4 Lymphocytes # 1.1 Monocytes # 0.5 Eosinophils # 0.0 Basophils # 0.0 Nucleated Red 0.0 Blood Cells # Sodium Level 136 Potassium Level 3.4 L Chloride Level 114 H Carbon Dioxide 12 L Level Anion Gap 10 Blood Urea 20 Nitrogen Creatinine 0.78 Est Glomerular > 60 Filtrat Rate mL/min Glucose Level 126 Lactic Acid 0.8 Level Calcium Level 8.5 Phosphorus 3.1 Level Magnesium Level 2.8 #H Troponin I 2.010 *H Test 08/05/18 23:37 08/06/18 00:43 08/06/18 02:00 08/06/18 02:13 Bedside Glucose 116 Prothrombin 14.1 Time Prothrombin 1.1 Time Ratio INR 1.08 International Normalized Rati o Activated 36.0 H Partial Thrombo plast Time Fibrinogen 436.0 # Amylase Level 36 Lipase 58 Blood Gas Blood Specimen arterial Source Arterial Blood 08/06/2018 2:15 Date Drawn :02 AM Arterial Blood 7.437 pH (Temp corrected ) Arterial Blood 21.5 L pCO2 (Temp correct) Arterial Blood 98.9 pO2 (Temp corrected ) Arterial Blood 14.7 L HCO3 Arterial Blood -9.0 L Base Excess Arterial Blood 97.7 Oxygen Saturati on Dajuan Test N/A Arterial Blood A-Line Gas Puncture Site Arterial 0.2 Blood Carboxyhe moglobin Arterial Blood 0.3 Methemoglobin Blood Gas A-a 92.5 H O2 Differential Oxyhemoglobin 97.2 Percent Blood Gas 33.1 Temperature Blood Gas 20.0 Respiration Rate Blood Gas 20 Actual Respiration Rat e Blood Gas VENT - AC Modality FiO2 30.0 Blood Gas Tidal 450.0 Volume Blood Gas Low 5.0 PEEP Setting Blood Gas 22.0 Inspiratory Pressure Blood Gas MR Notified Whom Blood Gas 08/06/2018 2:29 Notified Time :45 AM White Blood 5.3 # Count Red Blood Count 3.15 L Hemoglobin 8.9 L Hematocrit 26.4 L Mean 83.8 Corpuscular Volume Mean 28.3 L Corpuscular Hemoglobin Mean 33.7 Corpuscular Hemoglobin Conc ent Red Cell 13.2 Distribution Width Platelet Count 114 L Mean Platelet 12.6 H Volume Immature 0.600 H Granulocytes % Neutrophils % 67.9 Lymphocytes % 22.6 Monocytes % 7.9 Eosinophils % 0.8 Basophils % 0.2 Nucleated Red 0.0 Blood Cells % Immature 0.030 Granulocytes # Neutrophils # 3.6 Lymphocytes # 1.2 Monocytes # 0.4 Eosinophils # 0.0 Basophils # 0.0 Nucleated Red 0.0 Blood Cells # Sodium Level 139 Potassium Level 3.1 L Chloride Level 117 H Carbon Dioxide 14 L Level Anion Gap 8 Blood Urea 19 Nitrogen Creatinine 0.81 Est Glomerular > 60 Filtrat Rate mL/min Glucose Level 107 Lactic Acid 0.7 Level Calcium Level 7.8 L Phosphorus 3.8 Level Magnesium Level 2.4 Troponin I 1.110 *H Test 08/06/18 06:00 08/06/18 08:00 08/06/18 08:07 08/06/18 12:44 Bedside Glucose 108 98 Blood Gas Blood arterial Specimen Source Arterial Blood 08/06/2018 7:31: Date Drawn 00 AM Arterial Blood 7.449 pH (Temp corrected ) Arterial Blood 20.2 L pCO2 (Temp correct) Arterial Blood 119.7 H pO2 (Temp corrected ) Arterial Blood 14.3 L HCO3 Arterial Blood -9.4 L Base Excess Arterial Blood 98.0 Oxygen Saturati on Dajuan Test N/A Arterial Blood A-Line Gas Puncture Site Arterial 0.2 Blood Carboxyhe moglobin Arterial Blood 0.3 Methemoglobin Blood Gas A-a 73.6 H O2 Differential Oxyhemoglobin 97.5 Percent Blood Gas 32.5 Temperature Blood Gas 20.0 Respiration Rate Blood Gas 20 Actual Respiration Rat e Blood Gas VENT - AC Modality FiO2 30.0 Blood Gas Tidal 450.0 Volume Blood Gas Low 5.0 PEEP Setting Blood Gas TM Notified Whom Blood Gas 08/06/2018 7:41: Notified Time 00 AM White Blood 4.0 #L Count Red Blood Count 2.97 L Hemoglobin 8.5 L Hematocrit 25.1 L Mean 84.5 Corpuscular Volume Mean 28.6 L Corpuscular Hemoglobin Mean 33.9 Corpuscular Hemoglobin Conc ent Red Cell 13.3 Distribution Width Platelet Count 94 L Mean Platelet 12.5 H Volume Immature 0.500 H Granulocytes % Neutrophils % 63.3 Lymphocytes % 25.1 Monocytes % 8.3 Eosinophils % 2.3 Basophils % 0.5 Nucleated Red 0.0 Blood Cells % Immature 0.020 Granulocytes # Neutrophils # 2.5 Lymphocytes # 1.0 Monocytes # 0.3 Eosinophils # 0.1 Basophils # 0.0 Nucleated Red 0.0 Blood Cells # Sodium Level 138 Potassium Level 4.1 Chloride Level 119 H Carbon Dioxide 14 L Level Anion Gap 5 Blood Urea 19 Nitrogen Creatinine 0.81 Est Glomerular > 60 Filtrat Rate mL/min Glucose Level 109 Lactic Acid 0.9 Level Calcium Level 7.5 L Phosphorus 3.6 Level Magnesium Level 2.3 Troponin I 1.070 *H Test 08/06/18 14:00 Blood Gas Blood arterial Specimen Source Arterial Blood 08/06/2018 2:00: Date Drawn 35 PM Arterial Blood 7.395 pH (Temp corrected ) Arterial Blood 23.7 L pCO2 (Temp correct) Arterial Blood 62.2 L pO2 (Temp corrected ) Arterial Blood 14.7 L HCO3 Arterial Blood -9.7 L Base Excess Arterial Blood 94.1 L Oxygen Saturati on Dajuan Test N/A Arterial Blood A-Line Gas Puncture Site Arterial 0.2 Blood Carboxyhe moglobin Arterial Blood 0.2 Methemoglobin Blood Gas A-a 126.4 H O2 Differential Oxyhemoglobin 93.7 Percent Blood Gas 33.5 Temperature Blood Gas 20.0 Respiration Rate Blood Gas 20 Actual Respiration Rat e Blood Gas VENT - AC Modality FiO2 30.0 Blood Gas Tidal 450.0 Volume Blood Gas Low 5.0 PEEP Setting Blood Gas TM Notified Whom Blood Gas 08/06/2018 2:08: Notified Time 24 PM Medications Current Medications Norepinephrine 250 ml @ 1.875 mls/ hr TITRATE IV ; Start 08/04/18 at 23:15 Ticagrelor (Brilinta) 90 mg BID PO Last administered on 08/06/18 08:53; Admin Dose 90 MG; Start 08/05/18 at 09:00 Morphine Sulfate (morphine) 1 mg Q1H PRN IV PAIN Last administered on 08/05/18at 00:55; Admin Dose 1 MG; Start 08/04/18 at 23:30 Docusate Sodium (Colace) 100 mg BID PO Last administered on 08/05/18 08:52; Admin Dose 100 MG; Start 08/05/18 at 09:00 Carvedilol (Coreg) 12.5 mg QID PO Last administered on 08/05/18at 17:12; Admin Dose 12.5 MG; Start 08/04/18 at 23:30 Atorvastatin Calcium (Lipitor) 80 mg DAILY@21 PO Last administered on 08/05/18at 21:16; Admin Dose 80 MG; Start 08/05/18 at 21:00 Miscellaneous Information (* Miscellaneous Pharmacy Order) Treatment of Hypoglycemia: 1.BG 51... Per protocol XX ; Start 08/05/18 at 01:30 Nitroglycerin/ Dextrose 250 ml @ 1.5 mls/hr TITRATE IV Last administered on 08/05/18 14:22; Admin Dose 72 MLS/HR; Start 08/05/18 at 01:00 Propofol 100 ml @ 2.772 mls/ hr Q12H IV Last administered on 08/06/18 13:21; Admin Dose 27.72 MLS/HR; Start 08/05/18 at 04:00 Midazolam HCl 50 ml @ 1 mls/hr TITRATE IV Last administered on 08/05/18at 19:22; Admin Dose 8 MLS/HR; Start 08/05/18 at 07:30 Miscellaneous Information 1 ea NOTE XX ; Start 08/05/18 at 09:00 Acetaminophen (Tylenol Supp) 650 mg Q4H PRN ND TEMP > 37C; Start 08/05/18 at 11:00 Acetaminophen (Tylenol Liquid) 650 mg Q4H PRN PO TEMP > 37C; Start 08/05/18 at 11:00 Acetaminophen (Tylenol Liquid) 500 mg Q6H PO Last administered on 08/05/18at 14:57; Admin Dose 500 MG; Start 08/06/18 at 12:00 Meperidine HCl (Demerol) 25 mg Q4H PRN IV POST OPERATIVE SHIVERING Last administered on 08/05/18at 16:31; Admin Dose 25 MG; Start 08/05/18 at 11:00 Eye Lubricant (Akwa Oint) 1 applic Q6 BOTH EYES Last administered on 08/06/18at 13:21; Admin Dose 1 APPLIC; Start 08/05/18 at 12:00 Eye Lubricant (Artificial Tears Oph) 2 drop Q6 BOTH EYES Last administered on 08/06/18at 13:21; Admin Dose 2 DROP; Start 08/05/18 at 12:00 Miscellaneous Information (* Miscellaneous Pharmacy Order) Treatment of Hypoglycemia: 1.BG 51... Per protocol XX ; Start 08/05/18 at 12:00 Dextrose (D50w Syringe) 25 ml Q15M PRN IV .DECREASED GLUCOSE; Start 08/05/18 at 12:00 Dextrose (D50w Syringe) 50 ml Q15M PRN IV .DECREASED GLUCOSE; Start 08/05/18 at 12:00 Insulin Human Regular 100 unit/ Sodium Chloride 100 ml @ 0 mls/hr PER PROTOCOL IV ; Start 08/05/18 at 12:00 Miscellaneous Information (* Miscellaneous Pharmacy Order) Treatment of Hypoglycemia: 1.BG 51... Per protocol XX ; Start 08/05/18 at 12:00 Dextrose (D50w Syringe) 25 ml Q15M PRN IV .DECREASED GLUCOSE; Start 08/05/18 at 12:00 Dextrose (D50w Syringe) 50 ml Q15M PRN IV .DECREASED GLUCOSE; Start 08/05/18 at 12:00 Fentanyl 100 ml @ 2.5 mls/hr TITRATE IV Last administered on 08/05/18at 19:21; Admin Dose 10 MLS/HR; Start 08/05/18 at 12:00 Vecuronium [place] 100 mg/ Dextrose 100 ml @ 4.62 mls/hr TITRATE IV Last administered on 08/05/18at 16:59; Admin Dose 4.62 MLS/HR; Start 08/05/18 at 16:00 Meperidine HCl (Demerol) 12.5 mg Q2H PRN IV POST OPERATIVE SHIVERING; Start 08/05/18 at 17:00 Sodium Chloride 1,000 ml @ 100 mls/hr Q10H IV Last administered on 08/06/18at 06:20; Admin Dose 100 MLS/HR; Start 08/05/18 at 20:30 Aspirin (Aspirin) 81 mg DAILY NGT Last administered on 08/06/18at 08:51; Admin Dose 81 MG; Start 08/06/18 at 09:00 Assessment/Plan Hospital Course (Demo Recall) 1. s/p V. fib cardiac arrest 2. Acute myocardial infarction 3. Status post emergent PCI of the 100% occluded LAD as well as PTCA of the diagonal 4. Diabetes 5. Respiratory failure status post intubation on the vent 6. Hypertension 7. Renal failure possibly acute on chronic 8. Likely history of congestive heart failure 9. Dyslipidemia 10. Encephalopathy: Clear anoxic brain injury on hypothermia protocol 11. Morbid obesity 12. Anemia 13. elevated LFT Recommendations: Continue with aspirin and Brilinta Insulin PER IM Vent support respiratory care as per internal medicine and pulmonary consultants Start Coreg once blood pressure remains stable/elevated Monitor renal function Plan for left heart catheterization coronary angiogram PCI of likely left circumflex artery and obtuse marginal tomorrow, Risks benefits alternative procedure discussed with the patient review the translators in detail. Risks including but not limited to risk of infection vascular complication bleeding complication DE stroke arrhythmia renal failure etc. discussed. Consent has been obtained. Continue with ICU care More than 35 minutes of critical care time was for management treatment is critically patient excluding any procedures Thank you for his referral. We will continue to follow along with you LOIS JOHNSON MD [facility] LOIS JOHNSON MD Aug 06, 2018 14:23
--- NOTE | 2018-08-06 14:28 | RADRPT ---
Vent Rate: 67 bpm RR Interval: 0 msec [place] Interval: 112 msec QRS Duration: 114 msec QT Interval: 570 msec QTC Interval: 602 msec P-R-T [place]: 58 - 65 - 0 degrees Normal sinus rhythm Incomplete left bundle branch block T wave abnormality, consider inferior ischemia T wave abnormality, consider anterolateral ischemia Prolonged QT Abnormal ECG Electronically Signed By: Earl Feliciano
--- NOTE | 2018-08-06 14:31 | RADRPT ---
Vent Rate: 60 bpm RR Interval: 0 msec [place] Interval: 118 msec QRS Duration: 112 msec QT Interval: 610 msec QTC Interval: 610 msec P-R-T [place]: 50 - 59 - 161 degrees Normal sinus rhythm Incomplete left bundle branch block ST & T wave abnormality, consider inferior ischemia ST & T wave abnormality, consider anterolateral ischemia Prolonged QT Abnormal ECG Electronically Signed By: Earl Feliciano
--- NOTE | 2018-08-06 14:33 | RADRPT ---
Vent Rate: 62 bpm RR Interval: 0 msec [place] Interval: 126 msec QRS Duration: 102 msec QT Interval: 588 msec QTC Interval: 596 msec P-R-T [place]: 25 - 76 - 130 degrees Normal sinus rhythm ST & T wave abnormality, consider anterolateral ischemia Prolonged QT Abnormal ECG Electronically Signed By: Earl Feliciano
--- NOTE | 2018-08-06 14:41 | RADRPT ---
Vent Rate: 95 bpm RR Interval: 0 msec [place] Interval: 116 msec QRS Duration: 88 msec QT Interval: 370 msec QTC Interval: 464 msec P-R-T [place]: 18 - 61 - 110 degrees Normal sinus rhythm ST & T wave abnormality, consider anterior ischemia Prolonged QT Abnormal ECG Electronically Signed By: Earl Feliciano
--- NOTE | 2018-08-06 14:59 | RADRPT ---
Vent Rate: 106 bpm RR Interval: 0 msec [place] Interval: 138 msec QRS Duration: 104 msec QT Interval: 356 msec QTC Interval: 472 msec P-R-T [place]: 68 - 49 - 118 degrees Sinus tachycardia T wave abnormality, consider anterolateral ischemia Abnormal ECG Electronically Signed By: Earl Feliciano
--- NOTE | 2018-08-06 16:10 | RADRPT ---
Echocardiogram Report Patient Name: GEETHA LOBOPatient ID: [id number] : 1980 (38y )Study Date: 08/05/2018 9:10:51 AM Gender: FAccession #: [id number] Tech: FACUNDO Thurman RDCS Location: [address] Ref[address]Physician: LOIS RASHID Height(Cm): BSA: Weight(Kg): Quality: Technically Difficult StudyAccount #: Procedures: Echocardiographic Report: Transthoracic echocardiogram with complete 2D, M-Mode, and doppler examination. Indications: VT Arrest. Measurements: 2D/M Mode Doppler Measurement Value Normal Range Measurement Value Normal Range LVIDd 2D 3.1 [ 3.8 - 5.2 ] cm AV Peak [place] 1.2 [ 100.0 - 170.0 ] cm/se c LVIDs 2D 2.1 [ 2.2 - 3.5 ] cm AV Peak PG 6.0 [ 2.0 - 9.0 ] mmHg LVPWd 2D 0.9 [ 0.6 - 0.9 ] cm LVOT Peak [place] 0.7 [ 70.0 - 110.0 ] cm/sec IVSd 2D 1.0 [ 0.6 - 0.9 ] cm LVOT Peak PG 2.0 [ 2.0 - 6.0 ] mmHg AoR Diam 2D 2.4 [ 2.3 - 3.1 ] cm MV E Peak [place] 0.5 [ 60.0 - 130.0 ] cm/sec EDV 2D 38.8 [ 46.0 - 106.0 ] ml MV A Peak [place] 0.6 [ 100.0 - 120.0 ] cm/se c ESV 2D 13.9 [ 14.0 - 42.0 ] ml MV E/A 0.8 [ 0.8 - 1.5 ] ratio EF 2D 64.2 [ 54.0 - 74.0 ] percent MV PHT 42.0 [ 20.0 - 100.0 ] msec LA Dimen 2D 2.7 [ 2.7 - 3.8 ] cm MV Decel Time 144 [ 104 - 258 ] msec MV Decel [place] 4 Lat E` Dayron 0.1 [ 10.0 - 15.0 ] cm/sec Lateral E/E` 7.8 [ 1.0 - 2.0 ] ratio Med E` Day[place] 0.0 cm/sec MV E/A 0.8 [ 0.8 - 1.5 ] ratio MVA PHT 5.2 [ 2.0 - 4.0 ] cm2 PV Peak [place] 1.1 [ 40.0 - 80.0 ] cm/sec PV Peak PG 5.0 mmHg Findings: Left Ventricle: Overall, normal left ventricular systolic function. Not all segments visualized. Normal left ventricular cavity size. Normal left ventricular wall thickness. Ejection fraction is visually estimated at 55-65 %. Right Ventricle: Normal right ventricular size. Normal right ventricular systolic function. Left Atrium: The left atrium is normal in size. Right Atrium: The right atrium is normal in size. Atrial Septum: Normal atrial septum. Ventricular septum: Normal/intact ventricular septum. Mitral Valve: Normal appearance of the mitral valve. Mitral valve is not well visualized. No mitral valve regurgitation is seen. Aortic Valve: Aortic valve not well visualized. No aortic regurgitation. Tricuspid Valve: Normal appearance of the tricuspid valve. Unable to obtain RVSP due to minimal presence of tricuspid regurgitation. No evidence of tricuspid regurgitation. Pulmonic Valve: Normal pulmonic valve appearance. No evidence of pulmonic regurgitation. Pericardium: Normal pericardium with no significant pericardial effusion. Aorta: Normal aortic root. IVC: Normal size and normal respiratory collapse consistent with normal right atrial pressure. Conclusions: Normal left ventricular cavity size. Normal left ventricular wall thickness. Ejection fraction is visually estimated at 55-65 %. Normal appearance of the mitral valve. Mitral valve is not well visualized. No mitral valve regurgitation is seen. Aortic valve not well visualized. No aortic regurgitation. Normal appearance of the tricuspid valve. Unable to obtain RVSP due to minimal presence of tricuspid regurgitation. No evidence of tricuspid regurgitation. Normal pericardium with no significant pericardial effusion. suboptimal study. Electronically Signed By: Lois Rashid 2018-08-06 16:10:01 PDT
[2018-08-06] MEDS: ACETAMINOPHEN 650MG/20.3ML CUP PO SCH (18:15)
[2018-08-06] MEDS: ACCU-CHEK XX SCH (21:00)
[2018-08-06] MEDS: ATORVASTATIN 80 MG TAB PO SCH (21:32)
[2018-08-07] VITALS (39 sets, daily range): BP systolic 89–150; BP diastolic 42–110; PULSE 79–111; RESP 0–26
[2018-08-07] MEDS: ARTIFICIAL TEARS 15 ML OPH BOTH EYES SCH ×4 (00:20→18:39)
[2018-08-07] MEDS: OCULAR LUBRICANT 3.5 GM OPH OINT BOTH EYES SCH ×4 (00:20→18:39)
[2018-08-07] MEDS: ACETAMINOPHEN 650MG/20.3ML CUP PO SCH ×4 (00:20→18:40)
[2018-08-07] MEDS: PROPOFOL 100 ML IV SCH ×6 (01:23→22:13)
[2018-08-07] MEDS: SOD CHLORIDE 0.9% 1,000 ML IV SCH ×2 (01:32→13:49)
[2018-08-07] MEDS: FENTAnyl (DRIP) 1000 mcg/100mL 100 ML IV SCH ×2 (03:13→16:58)
[2018-08-07] MEDS ORDERED: SOD CHLORIDE 0.9% 500 ML IV ONE (04:30)
[2018-08-07] MEDS ORDERED: FUROSEMIDE 40 MG INJ IV ONE (07:00)
[2018-08-07] MEDS ORDERED: BIVALIRUDIN 250 MG/50 ML NS BAG IVPB ONE (07:00)
[2018-08-07] MEDS: ASPIRIN 81 MG TAB NGT SCH (08:15)
[2018-08-07] MEDS: TICAGRELOR 90 MG TABLET PO SCH ×2 (08:15→21:05)
--- NOTE | 2018-08-07 08:15 | PN ---
DATE: 08/07/2018 SUBJECTIVE: The patient remains critically ill and under hypothermic protocol. The patient's urinar y output has been marginal. She did not respond well to a small diuretic challenge yesterday. No ot her events noted. No hemoptysis, hematemesis, or hematochezia. OBJECTIVE: VITAL SIGNS: Blood pressure is 121/60, pulse 79, temperature is 95.8. HEENT: Head is normocephalic. NECK: Supple. HEART: Regular rate. LUNGS: Show diminished breath sounds at the base. ABDOMEN: Soft, nontender to palpation without rebound or guarding. EXTREMITIES: Negative for clubbing, cyanosis, no edema. DERMATOLOGIC: No rashes. MUSCULOSKELETAL: No joint effusion. NEUROLOGIC: No change in exam. MEDICATIONS: The patient's medication have been reviewed. LABORATORY DATA: Shows white count 7.5, hemoglobin 10.4, platelet count is 117. Sodium 140, potassi um 4.2, chloride 119, bicarbonate 13, BUN 19, creatinine 1.12. AST, ALT reviewed. The patient's ABG was reviewed. The patient's pH 7.1 with a pCO2 of 35, base excess of -14. The patient's lactic aci d level is 0.9. ASSESSMENT AND PLAN: 1. Oliguric acute kidney injury with previously normal baseline creatinine. Etiology of acute kidne y injury is concerning for acute tubular necrosis due to cardiac arrest, ischemic hypoperfusion. The patient's renal function is declined in the last 24 hours, possibly in injury phase of acute tubular necrosis. At this point, continue current treatment plan, supportive care, renally dose all medicin es. We will give the patient a diuretic challenge to see if patient can be converted from oliguric t o nonoliguric state. 2. Hypokalemia. Continue to monitor and replete. 3. Anemia. Continue to monitor hemoglobin and hematocrit levels. 4. Mineral bone disorder, monitor calcium and phosphorus levels. 5. Mixed acid base disorder. The patient has a metabolic acidosis and respiratory acidosis. The kika ray's ABG was reviewed, pCO2 is inappropriately elevated for his level of acidemia. We will contin ue to monitor. May consider bicarbonate therapy. 6. Status post cardiac arrest secondary to ST elevation myocardial infarction. The patient is statu s post cardiac catheterization with PCI to the LAD. Continue current medical management. The patien t is on hypothermic protocol. Follow up with Cardiology. 7. Ventilator-dependent respiratory failure. Vent settings and ABG was reviewed. Continue to monit or. 8. History of coronary artery disease. Continue medical management. 9. Encephalopathy, etiology is toxic metabolic. 10. Hypertension. Continue current blood pressure regimen. 11. Gastrointestinal and deep vein thrombosis prophylaxis. Please note, I spent over 30 minutes of critical care time with this patient. Dictated By: BHUMI REDDY DO NR/NTS Conf#: [id number] DID#: [id number] CC: DANIAL TUCKER MD; THOMAS RILEY MD; CHINO ANDERSON MD;*EndCC*
[2018-08-07] MEDS: DOCUSATE SODIUM 100 MG CAP PO SCH ×2 (08:19→21:04)
[2018-08-07] MEDS: ACCU-CHEK XX SCH ×2 (08:27→21:00)
--- NOTE | 2018-08-07 09:06 | PN ---
Date/Time of Note Date/Time of Note DATE: 08/07/18 TIME: 09:06 Assessment/Plan VTE Prophylaxis Risk score (from Nsg)>0 risk: 8 SCD applied (from Nsg): Yes Pharmacological prophylaxis: heparin Lines/Catheters IV Catheter Type (from Nrsg): A Line Urinary Cath still in place: Yes Reason Cath still needed: terminal illness/intractable pain Assessment/Plan Assessment/Plan 1. V-fib cardiac arrest secondary to STEMI - Cardiology on board and appreciate recommendations. Plans for return to [facility] today for further stenting - s/p emergent Cath with successful PTCA and stenting of proximal and mid LAD, PTCA of the large first diagonal and thrombectomy of the LAD - Continue cardiac medications including dual antiplatelets, statin and beta- laura - ECHO results noted 2. Acute hypoxic respiratory failure - Pulm on board for vent management 3. HUSEYIN - secondary to ATN vs prerenal - Nephrology on board and appreciate recommendations - avoid nephrotoxic agents 4. Hypertension - BP stable 5. Diabetes - A1c noted 6. Transaminitis- improving - most likely secondary to hypoperfusion - continue monitoring LFTs - RUQ US noted 7. Disposition - Plans to return to [facility] for further intervention today - continue monitoring in ICU while requiring ventilator support >35 minutes of critical care time spent with patient Result Diagram: 08/07/18 0224 08/07/18 0224 Results 24hrs Laboratory Tests Test 08/06/18 12:44 08/06/18 14:00 08/06/18 14:03 08/06/18 20:00 Bedside Glucose 98 Blood Gas Blood arterial Blood Specimen arterial Source Arterial Blood 08/06/2018 2:00: 08/06/2018 7:55 Date Drawn 35 PM :00 PM Arterial Blood 7.395 7.370 pH (Temp corrected ) Arterial Blood 23.7 L 22.9 L pCO2 (Temp correct) Arterial Blood 62.2 L 64.7 L pO2 (Temp corrected ) Arterial Blood 14.7 L 13.5 L HCO3 Arterial Blood -9.7 L -11.3 L Base Excess Arterial Blood 94.1 L 94.4 L Oxygen Saturati on Dajuan Test N/A N/A Arterial Blood A-Line A-Line Gas Puncture Site Arterial 0.2 0.2 Blood Carboxyhe moglobin Arterial Blood 0.2 0.4 Methemoglobin Blood Gas A-a 126.4 H 124.9 H O2 Differential Oxyhemoglobin 93.7 93.8 Percent Blood Gas 33.5 33.4 Temperature Blood Gas 20.0 20.0 Respiration Rate Blood Gas 20 20 Actual Respiration Rat e Blood Gas VENT - AC VENT - AC Modality FiO2 30.0 30.0 Blood Gas Tidal 450.0 450.0 Volume Blood Gas Low 5.0 5.0 PEEP Setting Blood Gas TM RTR Notified Whom Blood Gas 08/06/2018 2:08: 08/06/2018 8:05 Notified Time 24 PM :00 PM White Blood 4.0 L Count Red Blood Count 3.12 L Hemoglobin 9.0 L Hematocrit 26.9 L Mean 86.2 Corpuscular Volume Mean 28.8 L Corpuscular Hemoglobin Mean 33.5 Corpuscular Hemoglobin Conc ent Red Cell 13.7 Distribution Width Platelet Count 95 L Mean Platelet 13.2 H Volume Immature 0.700 H Granulocytes % Neutrophils % 73.1 Lymphocytes % 16.1 Monocytes % 7.4 Eosinophils % 2.5 Basophils % 0.2 Nucleated Red 0.0 Blood Cells % Immature 0.030 Granulocytes # Neutrophils # 2.9 Lymphocytes # 0.7 L Monocytes # 0.3 Eosinophils # 0.1 Basophils # 0.0 Nucleated Red 0.0 Blood Cells # Prothrombin 13.8 Time Prothrombin 1.1 Time Ratio INR 1.05 International Normalized Rati o Activated 36.6 H Partial Thrombo plast Time Fibrinogen 395.0 # Sodium Level 138 Potassium Level 3.9 Chloride Level 116 H Carbon Dioxide 15 L Level Anion Gap 7 Blood Urea 20 Nitrogen Creatinine 0.89 Est Glomerular > 60 Filtrat Rate mL/min Glucose Level 112 Lactic Acid 0.8 Level Calcium Level 7.6 L Phosphorus 3.8 Level Magnesium Level 2.3 Troponin I 0.757 *H Amylase Level < 30 Lipase 220 Blood Gas 27.0 Inspiratory Pressure Test 08/06/18 20:05 08/06/18 22:08 08/07/18 02:00 08/07/18 02:19 White Blood 4.5 L Count Red Blood Count 3.20 L Hemoglobin 9.3 L Hematocrit 27.5 L Mean 85.9 Corpuscular Volume Mean 29.1 Corpuscular Hemoglobin Mean 33.8 Corpuscular Hemoglobin Conc ent Red Cell 13.8 Distribution Width Platelet Count 103 L Mean Platelet 13.3 H Volume Immature 0.700 H Granulocytes % Neutrophils % 71.0 Lymphocytes % 18.4 Monocytes % 7.5 Eosinophils % 2.0 Basophils % 0.4 Nucleated Red 0.0 Blood Cells % Immature 0.030 Granulocytes # Neutrophils # 3.2 Lymphocytes # 0.8 Monocytes # 0.3 Eosinophils # 0.1 Basophils # 0.0 Nucleated Red 0.0 Blood Cells # Sodium Level 138 Potassium Level 4.1 Chloride Level 119 H Carbon Dioxide 14 L Level Anion Gap 5 Blood Urea 19 Nitrogen Creatinine 0.94 Est Glomerular > 60 Filtrat Rate mL/min Glucose Level 111 Lactic Acid 1.1 Level Calcium Level 7.5 L Phosphorus 4.1 5.0 H Level Magnesium Level 2.2 Troponin I 0.712 *H 0.738 *H Bedside Glucose 118 Blood Gas Blood arterial Specimen Source Arterial Blood 08/07/2018 3:30: Date Drawn 37 AM Arterial Blood 7.181 *L pH (Temp corrected ) Arterial Blood 35.9 pCO2 (Temp correct) Arterial Blood 286.2 H pO2 (Temp corrected ) Arterial Blood 13.6 L HCO3 Arterial Blood -14.6 L Base Excess Arterial Blood 99.1 H Oxygen Saturati on Dajuan Test N/A Arterial Blood A-Line Gas Puncture Site Arterial 0.3 Blood Carboxyhe moglobin Arterial Blood 0.4 Methemoglobin Oxyhemoglobin 98.4 Percent Blood Gas 34.6 Temperature Blood Gas 20.0 Respiration Rate Blood Gas 20 Actual Respiration Rat e Blood Gas VENT - AC Modality FiO2 30.0 Blood Gas Tidal 450.0 Volume Blood Gas Low 5.0 PEEP Setting Blood Gas 27.0 Inspiratory Pressure Blood Gas Broderick MEDINA Critical Value Read Back Blood Gas S.H. Notified Whom Blood Gas 08/07/2018 3:45: Notified Time 33 AM Test 08/07/18 02:24 08/07/18 08:26 White Blood 7.5 # Count Red Blood Count 3.59 L Hemoglobin 10.4 L Hematocrit 31.3 L Mean 87.2 Corpuscular Volume Mean 29.0 Corpuscular Hemoglobin Mean 33.2 Corpuscular Hemoglobin Conc ent Red Cell 14.2 Distribution Width Platelet Count 117 L Mean Platelet 13.2 H Volume Immature 0.700 H Granulocytes % Neutrophils % 83.3 H Lymphocytes % 8.2 L Monocytes % 6.8 Eosinophils % 0.7 Basophils % 0.3 Nucleated Red 0.0 Blood Cells % Immature 0.050 H Granulocytes # Neutrophils # 6.2 Lymphocytes # 0.6 L Monocytes # 0.5 Eosinophils # 0.1 Basophils # 0.0 Nucleated Red 0.0 Blood Cells # Prothrombin 13.6 Time Prothrombin 1.1 Time Ratio INR 1.03 International Normalized Rati o Activated 37.2 H Partial Thrombo plast Time Fibrinogen 527.0 #H Sodium Level 140 Potassium Level 4.2 Chloride Level 119 H Carbon Dioxide 13 L Level Anion Gap 8 Blood Urea 19 Nitrogen Creatinine 1.12 H Est Glomerular 54 L Filtrat Rate mL/min Glucose Level 111 Lactic Acid 0.9 Level Calcium Level 7.9 L Magnesium Level 2.1 Total Bilirubin 0.3 Direct 0.20 # Bilirubin Indirect 0.1 Bilirubin Aspartate Amino 148 H Transf (AST/SGO T) Alanine 321 H Aminotransferas e (ALT/SGPT) Alkaline 151 H Phosphatase Total Protein 5.7 L Albumin 2.7 L Globulin 3.00 Albumin/Globuli 0.90 n Ratio Amylase Level 46 Lipase 125 Bedside Glucose 102 Subjective 24 Hr Interval Summary Free Text/Dictation Patient in rewarming phase this am and still remains on vent support. Plans to return to [facility] today for further stenting. Exam/Review of Systems Exam Vitals Vital Signs Date Temp Pulse Resp B/P (MAP) Pulse Ox O2 O2 Flow FiO2 Time Delivery Rate 08/07/18 96.9 91 17 100/61 96 08:00 (74) 08/07/18 30 05:30 08/05/18 Mechanical 19:45 Ventilator Intake and Output 08/06/18 08/06/18 08/07/18 1515:00 23:00 07:00 IntakeIntake Total 1101.84 ml 1110.8 ml 1553.9 ml OutputOutput Total 216 ml 417 ml 183 ml BalanceBalance 885.84 ml 693.8 ml 1370.9 ml Exam General: Patient is laying in bed, intubated and sedated Eyes: EOMI, pupils reactive to light Neck: Supple, nontender, midline Respiratory: Clear to auscultation bilaterally. Diminished at bases. no wheezing appreciated Cardiovascular: regular rate and rhythm, no obvious murmurs Gastrointestinal: soft, nontender, nondistended, bowel sounds heard. Skin: No new skin lesions Results Results 24hrs Laboratory Tests Test 08/06/18 12:44 08/06/18 14:00 3/18/19 14:03 08/06/18 20:00 Bedside Glucose 98 Blood Gas Blood arterial Blood Specimen arterial Source Arterial Blood 08/06/2018 2:00: 08/06/2018 7:55 Date Drawn 35 PM :00 PM Arterial Blood 7.395 7.370 pH (Temp corrected ) Arterial Blood 23.7 L 22.9 L pCO2 (Temp correct) Arterial Blood 62.2 L 64.7 L pO2 (Temp corrected ) Arterial Blood 14.7 L 13.5 L HCO3 Arterial Blood -9.7 L -11.3 L Base Excess Arterial Blood 94.1 L 94.4 L Oxygen Saturati on Dajuan Test N/A N/A Arterial Blood A-Line A-Line Gas Puncture Site Arterial 0.2 0.2 Blood Carboxyhe moglobin Arterial Blood 0.2 0.4 Methemoglobin Blood Gas A-a 126.4 H 124.9 H O2 Differential Oxyhemoglobin 93.7 93.8 Percent Blood Gas 33.5 33.4 Temperature Blood Gas 20.0 20.0 Respiration Rate Blood Gas 20 20 Actual Respiration Rat e Blood Gas VENT - AC VENT - AC Modality FiO2 30.0 30.0 Blood Gas Tidal 450.0 450.0 Volume Blood Gas Low 5.0 5.0 PEEP Setting Blood Gas TM RTR Notified Whom Blood Gas 08/06/2018 2:08: 08/06/2018 8:05 Notified Time 24 PM :00 PM White Blood 4.0 L Count Red Blood Count 3.12 L Hemoglobin 9.0 L Hematocrit 26.9 L Mean 86.2 Corpuscular Volume Mean 28.8 L Corpuscular Hemoglobin Mean 33.5 Corpuscular Hemoglobin Conc ent Red Cell 13.7 Distribution Width Platelet Count 95 L Mean Platelet 13.2 H Volume Immature 0.700 H Granulocytes % Neutrophils % 73.1 Lymphocytes % 16.1 Monocytes % 7.4 Eosinophils % 2.5 Basophils % 0.2 Nucleated Red 0.0 Blood Cells % Immature 0.030 Granulocytes # Neutrophils # 2.9 Lymphocytes # 0.7 L Monocytes # 0.3 Eosinophils # 0.1 Basophils # 0.0 Nucleated Red 0.0 Blood Cells # Prothrombin 13.8 Time Prothrombin 1.1 Time Ratio INR 1.05 International Normalized Rati o Activated 36.6 H Partial Thrombo plast Time Fibrinogen 395.0 # Sodium Level 138 Potassium Level 3.9 Chloride Level 116 H Carbon Dioxide 15 L Level Anion Gap 7 Blood Urea 20 Nitrogen Creatinine 0.89 Est Glomerular > 60 Filtrat Rate mL/min Glucose Level 112 Lactic Acid 0.8 Level Calcium Level 7.6 L Phosphorus 3.8 Level Magnesium Level 2.3 Troponin I 0.757 *H Amylase Level < 30 Lipase 220 Blood Gas 27.0 Inspiratory Pressure Test 08/06/18 20:05 08/06/18 22:08 08/07/18 02:00 08/07/18 02:19 White Blood 4.5 L Count Red Blood Count 3.20 L Hemoglobin 9.3 L Hematocrit 27.5 L Mean 85.9 Corpuscular Volume Mean 29.1 Corpuscular Hemoglobin Mean 33.8 Corpuscular Hemoglobin Conc ent Red Cell 13.8 Distribution Width Platelet Count 103 L Mean Platelet 13.3 H Volume Immature 0.700 H Granulocytes % Neutrophils % 71.0 Lymphocytes % 18.4 Monocytes % 7.5 Eosinophils % 2.0 Basophils % 0.4 Nucleated Red 0.0 Blood Cells % Immature 0.030 Granulocytes # Neutrophils # 3.2 Lymphocytes # 0.8 Monocytes # 0.3 Eosinophils # 0.1 Basophils # 0.0 Nucleated Red 0.0 Blood Cells # Sodium Level 138 Potassium Level 4.1 Chloride Level 119 H Carbon Dioxide 14 L Level Anion Gap 5 Blood Urea 19 Nitrogen Creatinine 0.94 Est Glomerular > 60 Filtrat Rate mL/min Glucose Level 111 Lactic Acid 1.1 Level Calcium Level 7.5 L Phosphorus 4.1 5.0 H Level Magnesium Level 2.2 Troponin I 0.712 *H 0.738 *H Bedside Glucose 118 Blood Gas Blood arterial Specimen Source Arterial Blood 08/07/2018 3:30: Date Drawn 37 AM Arterial Blood 7.181 *L pH (Temp corrected ) Arterial Blood 35.9 pCO2 (Temp correct) Arterial Blood 286.2 H pO2 (Temp corrected ) Arterial Blood 13.6 L HCO3 Arterial Blood -14.6 L Base Excess Arterial Blood 99.1 H Oxygen Saturati on Dajuan Test N/A Arterial Blood A-Line Gas Puncture Site Arterial 0.3 Blood Carboxyhe moglobin Arterial Blood 0.4 Methemoglobin Oxyhemoglobin 98.4 Percent Blood Gas 34.6 Temperature Blood Gas 20.0 Respiration Rate Blood Gas 20 Actual Respiration Rat e Blood Gas VENT - AC Modality FiO2 30.0 Blood Gas Tidal 450.0 Volume Blood Gas Low 5.0 PEEP Setting Blood Gas 27.0 Inspiratory Pressure Blood Gas Broderick [facility] Critical Value Read Back Blood Gas [facility] Notified Whom Blood Gas 08/07/2018 3:45: Notified Time 33 AM Test 08/07/18 02:24 08/07/18 08:26 White Blood 7.5 # Count Red Blood Count 3.59 L Hemoglobin 10.4 L Hematocrit 31.3 L Mean 87.2 Corpuscular Volume Mean 29.0 Corpuscular Hemoglobin Mean 33.2 Corpuscular Hemoglobin Conc ent Red Cell 14.2 Distribution Width Platelet Count 117 L Mean Platelet 13.2 H Volume Immature 0.700 H Granulocytes % Neutrophils % 83.3 H Lymphocytes % 8.2 L Monocytes % 6.8 Eosinophils % 0.7 Basophils % 0.3 Nucleated Red 0.0 Blood Cells % Immature 0.050 H Granulocytes # Neutrophils # 6.2 Lymphocytes # 0.6 L Monocytes # 0.5 Eosinophils # 0.1 Basophils # 0.0 Nucleated Red 0.0 Blood Cells # Prothrombin 13.6 Time Prothrombin 1.1 Time Ratio INR 1.03 International Normalized Rati o Activated 37.2 H Partial Thrombo plast Time Fibrinogen 527.0 #H Sodium Level 140 Potassium Level 4.2 Chloride Level 119 H Carbon Dioxide 13 L Level Anion Gap 8 Blood Urea 19 Nitrogen Creatinine 1.12 H Est Glomerular 54 L Filtrat Rate mL/min Glucose Level 111 Lactic Acid 0.9 Level Calcium Level 7.9 L Magnesium Level 2.1 Total Bilirubin 0.3 Direct 0.20 # Bilirubin Indirect 0.1 Bilirubin Aspartate Amino 148 H Transf (AST/SGO T) Alanine 321 H Aminotransferas e (ALT/SGPT) Alkaline 151 H Phosphatase Total Protein 5.7 L Albumin 2.7 L Globulin 3.00 Albumin/Globuli 0.90 n Ratio Amylase Level 46 Lipase 125 Bedside Glucose 102 Medications Medication Current Medications Norepinephrine 250 ml @ 1.875 mls/ hr TITRATE IV ; Start 08/04/18 at 23:15 Ticagrelor (Brilinta) 90 mg BID PO Last administered on 08/07/18at 08:15; Admin Dose 90 MG; Start 08/05/18 at 09:00 Morphine Sulfate (morphine) 1 mg Q1H PRN IV PAIN Last administered on 08/05/18at 00:55; Admin Dose 1 MG; Start 08/04/18 at 23:30 Docusate Sodium (Colace) 100 mg BID PO Last administered on 08/07/18 08:19; Admin Dose 100 MG; Start 08/05/18 at 09:00 Carvedilol (Coreg) 12.5 mg QID PO Last administered on 08/07/18 08:14; Admin Dose 12.5 MG; Start 08/04/18 at 23:30 Atorvastatin Calcium (Lipitor) 80 mg DAILY@21 PO Last administered on 08/06/18 21:32; Admin Dose 80 MG; Start 08/05/18 at 21:00 Miscellaneous Information (* Miscellaneous Pharmacy Order) Treatment of Hypoglycemia: 1.BG 51... Per protocol XX ; Start 08/05/18 at 01:30 Nitroglycerin/ Dextrose 250 ml @ 1.5 mls/hr TITRATE IV Last administered on 08/05/18 14:22; Admin Dose 72 MLS/HR; Start 08/05/18 at 01:00 Propofol 100 ml @ 2.772 mls/ hr Q12H IV Last administered on 08/07/18 07:42; Admin Dose 27.72 MLS/HR; Start 08/05/18 at 04:00 Midazolam HCl 50 ml @ 1 mls/hr TITRATE IV Last administered on 08/05/18 19:22; Admin Dose 8 MLS/HR; Start 08/05/18 at 07:30 Miscellaneous Information 1 ea NOTE XX ; Start 08/05/18 at 09:00 Acetaminophen (Tylenol Supp) 650 mg Q4H PRN HI TEMP > 37C; Start 08/05/18 at 11:00 Acetaminophen (Tylenol Liquid) 650 mg Q4H PRN PO TEMP > 37C; Start 08/05/18 at 11:00 Acetaminophen (Tylenol Liquid) 500 mg Q6H PO Last administered on 08/07/18 05:54; Admin Dose 500 MG; Start 08/06/18 at 12:00 Meperidine HCl (Demerol) 25 mg Q4H PRN IV POST OPERATIVE SHIVERING Last administered on 08/05/18 16:31; Admin Dose 25 MG; Start 08/05/18 at 11:00 Eye Lubricant (Akwa Oint) 1 applic Q6 BOTH EYES Last administered on 08/07/18 05:53; Admin Dose 1 APPLIC; Start 08/05/18 at 12:00 Eye Lubricant (Artificial Tears Oph) 2 drop Q6 BOTH EYES Last administered on 08/07/18 05:53; Admin Dose 2 DROP; Start 08/05/18 at 12:00 Miscellaneous Information (* Miscellaneous Pharmacy Order) Treatment of Hypoglycemia: 1.BG 51... Per protocol XX ; Start 08/05/18 at 12:00 Dextrose (D50w Syringe) 25 ml Q15M PRN IV .DECREASED GLUCOSE; Start 08/05/18 at 12:00 Dextrose (D50w Syringe) 50 ml Q15M PRN IV .DECREASED GLUCOSE; Start 08/05/18 at 12:00 Insulin Human Regular 100 unit/ Sodium Chloride 100 ml @ 0 mls/hr PER PROTOCOL IV ; Start 08/05/18 at 12:00 Miscellaneous Information (* Miscellaneous Pharmacy Order) Treatment of Hypoglycemia: 1.BG 51... Per protocol XX ; Start 08/05/18 at 12:00 Dextrose (D50w Syringe) 25 ml Q15M PRN IV .DECREASED GLUCOSE; Start 08/05/18 at 12:00 Dextrose (D50w Syringe) 50 ml Q15M PRN IV .DECREASED GLUCOSE; Start 08/05/18 at 12:00 Fentanyl 100 ml @ 2.5 mls/hr TITRATE IV Last administered on 08/07/18at 03:13; Admin Dose 10 MLS/HR; Start 08/05/18 at 12:00 Meperidine HCl (Demerol) 12.5 mg Q2H PRN IV POST OPERATIVE SHIVERING; Start 08/05/18 at 17:00 Sodium Chloride 1,000 ml @ 100 mls/hr Q10H IV Last administered on 08/07/18at 01:32; Admin Dose 100 MLS/HR; Start 08/05/18 at 20:30 Aspirin (Aspirin) 81 mg DAILY NGT Last administered on 08/07/18 08:15; Admin Dose 81 MG; Start 08/06/18 at 09:00 Diagnostic Test (Pha) (Accu-Chek) 1 ea Q12 XX Last administered on 08/07/18 08:27; Admin Dose 1 EA; Start 08/06/18 at 21:00 THOMAS RILEY MD Aug 07, 2018 09:06
--- NOTE | 2018-08-07 09:47 | CONS ---
Consult Date/Type/Reason Admit Date/Time Aug 04, 2018 at 23:10 Initial Consult Date 08/05/18 Type of Consultation: cv Requesting Provider: HARPAL AGGARWAL MD Date/Time of Note DATE: 08/07/18 TIME: 09:38 Subjective Interventional cardiology follow-up progress note/critical care Subjective: Events noted discussed with the staff and physicians. d/w FATHER and mother . spoke to a cousin who is a regional sales leader over the phone per mother request Patient remains intubated on the vent on hypothermia protocol. No V tachycardia or fibrillation. Nonresponsive nonverbal. pt with poor urine output Objective: General: Obese female started with intubation on the vent HEENT: NC/AT. pupils are equal. round. NECK: . no stridor. CV: RRR. systolic murmur; no gallop or rubs. PULM: no wheezing + rhonchi. GI: Obese SOFT, NT, ND, no rebound or guarding Extremity: trace B/L LE edema. no clubbing. neuro: Sedated Psych: Calm now rectal: deferred As: Right femoral sheath in place EKG August 06, 2018 was personally within normal sinus rhythm. T wave inversions anterior and inferior leads Chest x-ray done August 06 shows:No evidence for active cardiopulmonary disease. ECHO personally reviewed Normal left ventricular cavity size. Normal left ventricular wall thickness. Ejection fraction is visually estimated at 55-65 %. Normal appearance of the mitral valve. Mitral valve is not well visualized. No mitral valve regurgitation is seen. Aortic valve not well visualized. No aortic regurgitation. Normal appearance of the tricuspid valve. Unable to obtain RVSP due to minimal presence of tricuspid regurgitation. No evidence of tricuspid regurgitation. Normal pericardium with no significant pericardial effusion. suboptimal study. Objective Vitals Vital Signs Date Temp Pulse Resp B/P (MAP) Pulse Ox O2 O2 Flow FiO2 Time Delivery Rate 08/07/18 97.2 90 21 113/57 95 09:00 (75) 08/07/18 30 05:30 08/05/18 Mechanical 19:45 Ventilator Intake and Output 08/06/18 08/06/18 08/07/18 1515:00 23:00 07:00 IntakeIntake Total 1101.84 ml 1110.8 ml 1553.9 ml OutputOutput Total 216 ml 417 ml 183 ml BalanceBalance 885.84 ml 693.8 ml 1370.9 ml Results/Medications Result Diagram: 08/07/18 0224 08/07/18 0224 Results 24 hrs Laboratory Tests Test 08/06/18 12:44 08/06/18 14:00 08/06/18 14:03 08/06/18 20:00 Bedside Glucose 98 Blood Gas Blood arterial Blood Specimen arterial Source Arterial Blood 08/06/2018 2:00: 08/06/2018 7:55 Date Drawn 35 PM :00 PM Arterial Blood 7.395 7.370 pH (Temp corrected ) Arterial Blood 23.7 L 22.9 L pCO2 (Temp correct) Arterial Blood 62.2 L 64.7 L pO2 (Temp corrected ) Arterial Blood 14.7 L 13.5 L HCO3 Arterial Blood -9.7 L -11.3 L Base Excess Arterial Blood 94.1 L 94.4 L Oxygen Saturati on Dajuan Test N/A N/A Arterial Blood A-Line A-Line Gas Puncture Site Arterial 0.2 0.2 Blood Carboxyhe moglobin Arterial Blood 0.2 0.4 Methemoglobin Blood Gas A-a 126.4 H 124.9 H O2 Differential Oxyhemoglobin 93.7 93.8 Percent Blood Gas 33.5 33.4 Temperature Blood Gas 20.0 20.0 Respiration Rate Blood Gas 20 20 Actual Respiration Rat e Blood Gas VENT - AC VENT - AC Modality FiO2 30.0 30.0 Blood Gas Tidal 450.0 450.0 Volume Blood Gas Low 5.0 5.0 PEEP Setting Blood Gas TM RTR Notified Whom Blood Gas 08/06/2018 2:08: 08/06/2018 8:05 Notified Time 24 PM :00 PM White Blood 4.0 L Count Red Blood Count 3.12 L Hemoglobin 9.0 L Hematocrit 26.9 L Mean 86.2 Corpuscular Volume Mean 28.8 L Corpuscular Hemoglobin Mean 33.5 Corpuscular Hemoglobin Conc ent Red Cell 13.7 Distribution Width Platelet Count 95 L Mean Platelet 13.2 H Volume Immature 0.700 H Granulocytes % Neutrophils % 73.1 Lymphocytes % 16.1 Monocytes % 7.4 Eosinophils % 2.5 Basophils % 0.2 Nucleated Red 0.0 Blood Cells % Immature 0.030 Granulocytes # Neutrophils # 2.9 Lymphocytes # 0.7 L Monocytes # 0.3 Eosinophils # 0.1 Basophils # 0.0 Nucleated Red 0.0 Blood Cells # Prothrombin 13.8 Time Prothrombin 1.1 Time Ratio INR 1.05 International Normalized Rati o Activated 36.6 H Partial Thrombo plast Time Fibrinogen 395.0 # Sodium Level 138 Potassium Level 3.9 Chloride Level 116 H Carbon Dioxide 15 L Level Anion Gap 7 Blood Urea 20 Nitrogen Creatinine 0.89 Est Glomerular > 60 Filtrat Rate mL/min Glucose Level 112 Lactic Acid 0.8 Level Calcium Level 7.6 L Phosphorus 3.8 Level Magnesium Level 2.3 Troponin I 0.757 *H Amylase Level < 30 Lipase 220 Blood Gas 27.0 Inspiratory Pressure Test 08/06/18 20:05 08/06/18 22:08 08/07/18 02:00 08/07/18 02:19 White Blood 4.5 L Count Red Blood Count 3.20 L Hemoglobin 9.3 L Hematocrit 27.5 L Mean 85.9 Corpuscular Volume Mean 29.1 Corpuscular Hemoglobin Mean 33.8 Corpuscular Hemoglobin Conc ent Red Cell 13.8 Distribution Width Platelet Count 103 L Mean Platelet 13.3 H Volume Immature 0.700 H Granulocytes % Neutrophils % 71.0 Lymphocytes % 18.4 Monocytes % 7.5 Eosinophils % 2.0 Basophils % 0.4 Nucleated Red 0.0 Blood Cells % Immature 0.030 Granulocytes # Neutrophils # 3.2 Lymphocytes # 0.8 Monocytes # 0.3 Eosinophils # 0.1 Basophils # 0.0 Nucleated Red 0.0 Blood Cells # Sodium Level 138 Potassium Level 4.1 Chloride Level 119 H Carbon Dioxide 14 L Level Anion Gap 5 Blood Urea 19 Nitrogen Creatinine 0.94 Est Glomerular > 60 Filtrat Rate mL/min Glucose Level 111 Lactic Acid 1.1 Level Calcium Level 7.5 L Phosphorus 4.1 5.0 H Level Magnesium Level 2.2 Troponin I 0.712 *H 0.738 *H Bedside Glucose 118 Blood Gas Blood arterial Specimen Source Arterial Blood 08/07/2018 3:30: Date Drawn 37 AM Arterial Blood 7.181 *L pH (Temp corrected ) Arterial Blood 35.9 pCO2 (Temp correct) Arterial Blood 286.2 H pO2 (Temp corrected ) Arterial Blood 13.6 L HCO3 Arterial Blood -14.6 L Base Excess Arterial Blood 99.1 H Oxygen Saturati on Dajuan Test N/A Arterial Blood A-Line Gas Puncture Site Arterial 0.3 Blood Carboxyhe moglobin Arterial Blood 0.4 Methemoglobin Oxyhemoglobin 98.4 Percent Blood Gas 34.6 Temperature Blood Gas 20.0 Respiration Rate Blood Gas 20 Actual Respiration Rat e Blood Gas VENT - AC Modality FiO2 30.0 Blood Gas Tidal 450.0 Volume Blood Gas Low 5.0 PEEP Setting Blood Gas 27.0 Inspiratory Pressure Blood Gas Broderick MEDINA Critical Value Read Back Blood Gas S.H. Notified Whom Blood Gas 08/07/2018 3:45: Notified Time 33 AM Test 08/07/18 02:24 08/07/18 08:26 White Blood 7.5 # Count Red Blood Count 3.59 L Hemoglobin 10.4 L Hematocrit 31.3 L Mean 87.2 Corpuscular Volume Mean 29.0 Corpuscular Hemoglobin Mean 33.2 Corpuscular Hemoglobin Conc ent Red Cell 14.2 Distribution Width Platelet Count 117 L Mean Platelet 13.2 H Volume Immature 0.700 H Granulocytes % Neutrophils % 83.3 H Lymphocytes % 8.2 L Monocytes % 6.8 Eosinophils % 0.7 Basophils % 0.3 Nucleated Red 0.0 Blood Cells % Immature 0.050 H Granulocytes # Neutrophils # 6.2 Lymphocytes # 0.6 L Monocytes # 0.5 Eosinophils # 0.1 Basophils # 0.0 Nucleated Red 0.0 Blood Cells # Prothrombin 13.6 Time Prothrombin 1.1 Time Ratio INR 1.03 International Normalized Rati o Activated 37.2 H Partial Thrombo plast Time Fibrinogen 527.0 #H Sodium Level 140 Potassium Level 4.2 Chloride Level 119 H Carbon Dioxide 13 L Level Anion Gap 8 Blood Urea 19 Nitrogen Creatinine 1.12 H Est Glomerular 54 L Filtrat Rate mL/min Glucose Level 111 Lactic Acid 0.9 Level Calcium Level 7.9 L Magnesium Level 2.1 Total Bilirubin 0.3 Direct 0.20 # Bilirubin Indirect 0.1 Bilirubin Aspartate Amino 148 H Transf (AST/SGO T) Alanine 321 H Aminotransferas e (ALT/SGPT) Alkaline 151 H Phosphatase Total Protein 5.7 L Albumin 2.7 L Globulin 3.00 Albumin/Globuli 0.90 n Ratio Amylase Level 46 Lipase 125 Bedside Glucose 102 Medications Current Medications Norepinephrine 250 ml @ 1.875 mls/ hr TITRATE IV ; Start 08/04/18 at 23:15 Ticagrelor (Brilinta) 90 mg BID PO Last administered on 08/07/18at 08:15; Admin Dose 90 MG; Start 08/05/18 at 09:00 Morphine Sulfate (morphine) 1 mg Q1H PRN IV PAIN Last administered on 08/05/18at 00:55; Admin Dose 1 MG; Start 08/04/18 at 23:30 Docusate Sodium (Colace) 100 mg BID PO Last administered on 08/07/18 08:19; Admin Dose 100 MG; Start 08/05/18 at 09:00 Carvedilol (Coreg) 12.5 mg QID PO Last administered on 08/07/18 08:14; Admin Dose 12.5 MG; Start 08/04/18 at 23:30 Atorvastatin Calcium (Lipitor) 80 mg DAILY@21 PO Last administered on 08/06/18 21:32; Admin Dose 80 MG; Start 08/05/18 at 21:00 Miscellaneous Information (* Miscellaneous Pharmacy Order) Treatment of Hypoglycemia: 1.BG 51... Per protocol XX ; Start 08/05/18 at 01:30 Nitroglycerin/ Dextrose 250 ml @ 1.5 mls/hr TITRATE IV Last administered on 08/05/18at 14:22; Admin Dose 72 MLS/HR; Start 08/05/18 at 01:00 Propofol 100 ml @ 2.772 mls/ hr Q12H IV Last administered on 08/07/18 07:42; Admin Dose 27.72 MLS/HR; Start 08/05/18 at 04:00 Midazolam HCl 50 ml @ 1 mls/hr TITRATE IV Last administered on 08/05/18 19:22; Admin Dose 8 MLS/HR; Start 08/05/18 at 07:30 Miscellaneous Information 1 ea NOTE XX ; Start 08/05/18 at 09:00 Acetaminophen (Tylenol Supp) 650 mg Q4H PRN [place] TEMP > 37C; Start 08/05/18 at 11:00 Acetaminophen (Tylenol Liquid) 650 mg Q4H PRN PO TEMP > 37C; Start 08/05/18 at 11:00 Acetaminophen (Tylenol Liquid) 500 mg Q6H PO Last administered on 08/07/18at 05:54; Admin Dose 500 MG; Start 08/06/18 at 12:00 Meperidine HCl (Demerol) 25 mg Q4H PRN IV POST OPERATIVE SHIVERING Last administered on 08/05/18at 16:31; Admin Dose 25 MG; Start 08/05/18 at 11:00 Eye Lubricant (Akwa Oint) 1 applic Q6 BOTH EYES Last administered on 08/07/18at 05:53; Admin Dose 1 APPLIC; Start 08/05/18 at 12:00 Eye Lubricant (Artificial Tears Oph) 2 drop Q6 BOTH EYES Last administered on 08/07/18at 05:53; Admin Dose 2 DROP; Start 08/05/18 at 12:00 Miscellaneous Information (* Miscellaneous Pharmacy Order) Treatment of Hypoglycemia: 1.BG 51... Per protocol XX ; Start 08/05/18 at 12:00 Dextrose (D50w Syringe) 25 ml Q15M PRN IV .DECREASED GLUCOSE; Start 08/05/18 at 12:00 Dextrose (D50w Syringe) 50 ml Q15M PRN IV .DECREASED GLUCOSE; Start 08/05/18 at 12:00 Insulin Human Regular 100 unit/ Sodium Chloride 100 ml @ 0 mls/hr PER PROTOCOL IV ; Start 08/05/18 at 12:00 Miscellaneous Information (* Miscellaneous Pharmacy Order) Treatment of Hypoglycemia: 1.BG 51... Per protocol XX ; Start 08/05/18 at 12:00 Dextrose (D50w Syringe) 25 ml Q15M PRN IV .DECREASED GLUCOSE; Start 08/05/18 at 12:00 Dextrose (D50w Syringe) 50 ml Q15M PRN IV .DECREASED GLUCOSE; Start 08/05/18 at 12:00 Fentanyl 100 ml @ 2.5 mls/hr TITRATE IV Last administered on 08/07/18at 03:13; Admin Dose 10 MLS/HR; Start 08/05/18 at 12:00 Meperidine HCl (Demerol) 12.5 mg Q2H PRN IV POST OPERATIVE SHIVERING; Start 08/05/18 at 17:00 Sodium Chloride 1,000 ml @ 100 mls/hr Q10H IV Last administered on 08/07/18at 01:32; Admin Dose 100 MLS/HR; Start 08/05/18 at 20:30 Aspirin (Aspirin) 81 mg DAILY NGT Last administered on 08/07/18at 08:15; Admin Dose 81 MG; Start 3/18/19 at 09:00 Diagnostic Test (Pha) (Accu-Chek) 1 ea Q12 XX Last administered on 08/07/18at 08:27; Admin Dose 1 EA; Start 08/06/18 at 21:00 Assessment/Plan Hospital Course (Demo Recall) 1. s/p V. fib cardiac arrest 2. Acute myocardial infarction 3. Status post emergent PCI of the 100% occluded LAD as well as PTCA of the diagonal 4. Diabetes 5. Respiratory failure status post intubation on the vent 6. Hypertension 7. Renal failure possibly acute on chronic 8. Likely history of congestive heart failure 9. Dyslipidemia 10. Encephalopathy: Clear anoxic brain injury on hypothermia protocol 11. Morbid obesity 12. Anemia 13. elevated LFT 14. RI Recommendations: Continue with aspirin and Brilinta Insulin PER IM Vent support respiratory care as per internal medicine and pulmonary consultants Start Coreg once blood pressure remains stable/elevated Monitor renal function Plan for left heart catheterization coronary angiogram PCI of likely left circumflex artery and obtuse marginal today, Risks benefits alternative procedure discussed with the patient review the translators in detail. Risks including but not limited to risk of infection vascular complication bleeding complication [place] stroke arrhythmia renal failure etc. discussed with yesterday and with parents today. Consent has been obtained. Continue with ICU care More than 33 minutes of critical care time was for management treatment is critically patient excluding any procedures Thank you for his referral. We will continue to follow along with you LOIS JOHNSON MD MERGED WITH [facility] LOIS JOHNSON MD Aug 07, 2018 09:47
[2018-08-07] MEDS ORDERED: LIDOCAINE 1% (MDV) 20 ML INJ ONE (11:27)
[2018-08-07] MEDS ORDERED: VERAPAMIL 5 MG INJ ONE (11:27)
--- NOTE | 2018-08-07 11:27 | CONS ---
Consult Date/Type/Reason Admit Date/Time Aug 04, 2018 at 23:10 Initial Consult Date 08/05/18 Type of Consult Pulmonary Requesting Provider: HARPAL AGGARWAL MD Date/Time of Note DATE: 08/07/18 TIME: 11:26 Subjective Patient completed hypothermia protocol, plan for return to [facility] today to stent further occlusions. Objective Vital Signs Date Temp Pulse Resp B/P (MAP) Pulse Ox O2 O2 Flow FiO2 Time Delivery Rate 08/07/18 98.3 93 21 115/59 94 10:00 (77) 08/07/18 30 05:30 08/05/18 Mechanical 19:45 Ventilator Intake and Output 08/06/18 08/06/18 08/07/18 1515:00 23:00 07:00 IntakeIntake Total 1101.84 ml 1110.8 ml 1553.9 ml OutputOutput Total 216 ml 417 ml 183 ml BalanceBalance 885.84 ml 693.8 ml 1370.9 ml Exam Young lady orally intubated on mechanical ventilation VITAL SIGNS: per chart NECK: Supple. No JVD or lymphadenopathy. CARDIAC EXAM: S1, S2. No added sounds or murmurs. CHEST: Diminished air entry bilaterally ABDOMEN: Soft, nontender. No guarding or rebound. Diminished bowel sounds EXTREMITIES: No cyanosis, clubbing edema +2 NEUROLOGIC: Unable to assess Vent Setting Ventilator Support Mode: AC Fraction of Inspired Oxygen pe: 30 Positive End Expiratory Pressu: 5.0 Results/Medications Result Diagram: 08/07/18 0224 08/07/18 0224 Results 24 hrs Laboratory Tests Test 08/06/18 12:44 08/06/18 14:00 08/06/18 14:03 08/06/18 20:00 Bedside Glucose 98 Blood Gas Blood arterial Blood Specimen arterial Source Arterial Blood 08/06/2018 2:00: 08/06/2018 7:55 Date Drawn 35 PM :00 PM Arterial Blood 7.395 7.370 pH (Temp corrected ) Arterial Blood 23.7 L 22.9 L pCO2 (Temp correct) Arterial Blood 62.2 L 64.7 L pO2 (Temp corrected ) Arterial Blood 14.7 L 13.5 L HCO3 Arterial Blood -9.7 L -11.3 L Base Excess Arterial Blood 94.1 L 94.4 L Oxygen Saturati on Dajuan Test N/A N/A Arterial Blood A-Line A-Line Gas Puncture Site Arterial 0.2 0.2 Blood Carboxyhe moglobin Arterial Blood 0.2 0.4 Methemoglobin Blood Gas A-a 126.4 H 124.9 H O2 Differential Oxyhemoglobin 93.7 93.8 Percent Blood Gas 33.5 33.4 Temperature Blood Gas 20.0 20.0 Respiration Rate Blood Gas 20 20 Actual Respiration Rat e Blood Gas VENT - AC VENT - AC Modality FiO2 30.0 30.0 Blood Gas Tidal 450.0 450.0 Volume Blood Gas Low 5.0 5.0 PEEP Setting Blood Gas TM RTR Notified Whom Blood Gas 08/06/2018 2:08: 08/06/2018 8:05 Notified Time 24 PM :00 PM White Blood 4.0 L Count Red Blood Count 3.12 L Hemoglobin 9.0 L Hematocrit 26.9 L Mean 86.2 Corpuscular Volume Mean 28.8 L Corpuscular Hemoglobin Mean 33.5 Corpuscular Hemoglobin Conc ent Red Cell 13.7 Distribution Width Platelet Count 95 L Mean Platelet 13.2 H Volume Immature 0.700 H Granulocytes % Neutrophils % 73.1 Lymphocytes % 16.1 Monocytes % 7.4 Eosinophils % 2.5 Basophils % 0.2 Nucleated Red 0.0 Blood Cells % Immature 0.030 Granulocytes # Neutrophils # 2.9 Lymphocytes # 0.7 L Monocytes # 0.3 Eosinophils # 0.1 Basophils # 0.0 Nucleated Red 0.0 Blood Cells # Prothrombin 13.8 Time Prothrombin 1.1 Time Ratio INR 1.05 International Normalized Rati o Activated 36.6 H Partial Thrombo plast Time Fibrinogen 395.0 # Sodium Level 138 Potassium Level 3.9 Chloride Level 116 H Carbon Dioxide 15 L Level Anion Gap 7 Blood Urea 20 Nitrogen Creatinine 0.89 Est Glomerular > 60 Filtrat Rate mL/min Glucose Level 112 Lactic Acid 0.8 Level Calcium Level 7.6 L Phosphorus 3.8 Level Magnesium Level 2.3 Troponin I 0.757 *H Amylase Level < 30 Lipase 220 Blood Gas 27.0 Inspiratory Pressure Test 08/06/18 20:05 08/06/18 22:08 08/07/18 02:00 08/07/18 02:19 White Blood 4.5 L Count Red Blood Count 3.20 L Hemoglobin 9.3 L Hematocrit 27.5 L Mean 85.9 Corpuscular Volume Mean 29.1 Corpuscular Hemoglobin Mean 33.8 Corpuscular Hemoglobin Conc ent Red Cell 13.8 Distribution Width Platelet Count 103 L Mean Platelet 13.3 H Volume Immature 0.700 H Granulocytes % Neutrophils % 71.0 Lymphocytes % 18.4 Monocytes % 7.5 Eosinophils % 2.0 Basophils % 0.4 Nucleated Red 0.0 Blood Cells % Immature 0.030 Granulocytes # Neutrophils # 3.2 Lymphocytes # 0.8 Monocytes # 0.3 Eosinophils # 0.1 Basophils # 0.0 Nucleated Red 0.0 Blood Cells # Sodium Level 138 Potassium Level 4.1 Chloride Level 119 H Carbon Dioxide 14 L Level Anion Gap 5 Blood Urea 19 Nitrogen Creatinine 0.94 Est Glomerular > 60 Filtrat Rate mL/min Glucose Level 111 Lactic Acid 1.1 Level Calcium Level 7.5 L Phosphorus 4.1 5.0 H Level Magnesium Level 2.2 Troponin I 0.712 *H 0.738 *H Bedside Glucose 118 Blood Gas Blood arterial Specimen Source Arterial Blood 08/07/2018 3:30: Date Drawn 37 AM Arterial Blood 7.181 *L pH (Temp corrected ) Arterial Blood 35.9 pCO2 (Temp correct) Arterial Blood 286.2 H pO2 (Temp corrected ) Arterial Blood 13.6 L HCO3 Arterial Blood -14.6 L Base Excess Arterial Blood 99.1 H Oxygen Saturati on Dajuan Test N/A Arterial Blood A-Line Gas Puncture Site Arterial 0.3 Blood Carboxyhe moglobin Arterial Blood 0.4 Methemoglobin Oxyhemoglobin 98.4 Percent Blood Gas 34.6 Temperature Blood Gas 20.0 Respiration Rate Blood Gas 20 Actual Respiration Rat e Blood Gas VENT - AC Modality FiO2 30.0 Blood Gas Tidal 450.0 Volume Blood Gas Low 5.0 PEEP Setting Blood Gas 27.0 Inspiratory Pressure Blood Gas Broderick MEDINA Critical Value Read Back Blood Gas S.H. Notified Whom Blood Gas 08/07/2018 3:45: Notified Time 33 AM Test 08/07/18 02:24 08/07/18 08:26 White Blood 7.5 # Count Red Blood Count 3.59 L Hemoglobin 10.4 L Hematocrit 31.3 L Mean 87.2 Corpuscular Volume Mean 29.0 Corpuscular Hemoglobin Mean 33.2 Corpuscular Hemoglobin Conc ent Red Cell 14.2 Distribution Width Platelet Count 117 L Mean Platelet 13.2 H Volume Immature 0.700 H Granulocytes % Neutrophils % 83.3 H Lymphocytes % 8.2 L Monocytes % 6.8 Eosinophils % 0.7 Basophils % 0.3 Nucleated Red 0.0 Blood Cells % Immature 0.050 H Granulocytes # Neutrophils # 6.2 Lymphocytes # 0.6 L Monocytes # 0.5 Eosinophils # 0.1 Basophils # 0.0 Nucleated Red 0.0 Blood Cells # Prothrombin 13.6 Time Prothrombin 1.1 Time Ratio INR 1.03 International Normalized Rati o Activated 37.2 H Partial Thrombo plast Time Fibrinogen 527.0 #H Sodium Level 140 Potassium Level 4.2 Chloride Level 119 H Carbon Dioxide 13 L Level Anion Gap 8 Blood Urea 19 Nitrogen Creatinine 1.12 H Est Glomerular 54 L Filtrat Rate mL/min Glucose Level 111 Lactic Acid 0.9 Level Calcium Level 7.9 L Magnesium Level 2.1 Total Bilirubin 0.3 Direct 0.20 # Bilirubin Indirect 0.1 Bilirubin Aspartate Amino 148 H Transf (AST/SGO T) Alanine 321 H Aminotransferas e (ALT/SGPT) Alkaline 151 H Phosphatase Total Protein 5.7 L Albumin 2.7 L Globulin 3.00 Albumin/Globuli 0.90 n Ratio Amylase Level 46 Lipase 125 Bedside Glucose 102 Medications Current Medications Norepinephrine 250 ml @ 1.875 mls/ hr TITRATE IV ; Start 08/04/18 at 23:15 Ticagrelor (Brilinta) 90 mg BID PO Last administered on 08/07/18at 08:15; Admin Dose 90 MG; Start 08/05/18 at 09:00 Morphine Sulfate (morphine) 1 mg Q1H PRN IV PAIN Last administered on 08/05/18at 00:55; Admin Dose 1 MG; Start 08/04/18 at 23:30 Docusate Sodium (Colace) 100 mg BID PO Last administered on 08/07/18 08:19; Admin Dose 100 MG; Start 08/05/18 at 09:00 Carvedilol (Coreg) 12.5 mg QID PO Last administered on 08/07/18at 08:14; Admin Dose 12.5 MG; Start 08/04/18 at 23:30 Atorvastatin Calcium (Lipitor) 80 mg DAILY@21 PO Last administered on 08/06/18at 21:32; Admin Dose 80 MG; Start 08/05/18 at 21:00 Miscellaneous Information (* Miscellaneous Pharmacy Order) Treatment of Hypoglycemia: 1.BG 51... Per protocol XX ; Start 08/05/18 at 01:30 Nitroglycerin/ Dextrose 250 ml @ 1.5 mls/hr TITRATE IV Last administered on 08/05/18at 14:22; Admin Dose 72 MLS/HR; Start 08/05/18 at 01:00 Propofol 100 ml @ 2.772 mls/ hr Q12H IV Last administered on 08/07/18at 10:55; Admin Dose 27.72 MLS/HR; Start 08/05/18 at 04:00 Midazolam HCl 50 ml @ 1 mls/hr TITRATE IV Last administered on 08/05/18at 19:22; Admin Dose 8 MLS/HR; Start 08/05/18 at 07:30 Miscellaneous Information 1 ea NOTE XX ; Start 08/05/18 at 09:00 Acetaminophen (Tylenol Supp) 650 mg Q4H PRN [place] TEMP > 37C; Start 08/05/18 at 11:00 Acetaminophen (Tylenol Liquid) 650 mg Q4H PRN PO TEMP > 37C; Start 08/05/18 at 11:00 Acetaminophen (Tylenol Liquid) 500 mg Q6H PO Last administered on 08/07/18at 05: 54; Admin Dose 500 MG; Start 08/06/18 at 12:00 Meperidine HCl (Demerol) 25 mg Q4H PRN IV POST OPERATIVE SHIVERING Last administered on 08/05/18at 16:31; Admin Dose 25 MG; Start 08/05/18 at 11:00 Eye Lubricant (Akwa Oint) 1 applic Q6 BOTH EYES Last administered on 08/07/18at 05:53; Admin Dose 1 APPLIC; Start 08/05/18 at 12:00 Eye Lubricant (Artificial Tears Oph) 2 drop Q6 BOTH EYES Last administered on 08/07/18at 05:53; Admin Dose 2 DROP; Start 08/05/18 at 12:00 Miscellaneous Information (* Miscellaneous Pharmacy Order) Treatment of Hypoglycemia: 1.BG 51... Per protocol XX ; Start 08/05/18 at 12:00 Dextrose (D50w Syringe) 25 ml Q15M PRN IV .DECREASED GLUCOSE; Start 08/05/18 at 12:00 Dextrose (D50w Syringe) 50 ml Q15M PRN IV .DECREASED GLUCOSE; Start 08/05/18 at 12:00 Insulin Human Regular 100 unit/ Sodium Chloride 100 ml @ 0 mls/hr PER PROTOCOL IV ; Start 08/05/18 at 12:00 Miscellaneous Information (* Miscellaneous Pharmacy Order) Treatment of Hypoglycemia: 1.BG 51... Per protocol XX ; Start 08/05/18 at 12:00 Dextrose (D50w Syringe) 25 ml Q15M PRN IV .DECREASED GLUCOSE; Start 08/05/18 at 12:00 Dextrose (D50w Syringe) 50 ml Q15M PRN IV .DECREASED GLUCOSE; Start 08/05/18 at 12:00 Fentanyl 100 ml @ 2.5 mls/hr TITRATE IV Last administered on 08/07/18at 03:13; Admin Dose 10 MLS/HR; Start 08/05/18 at 12:00 Meperidine HCl (Demerol) 12.5 mg Q2H PRN IV POST OPERATIVE SHIVERING; Start 08/05/18 at 17:00 Sodium Chloride 1,000 ml @ 100 mls/hr Q10H IV Last administered on 08/07/18at 01:32; Admin Dose 100 MLS/HR; Start 08/05/18 at 20:30 Aspirin (Aspirin) 81 mg DAILY NGT Last administered on 08/07/18at 08:15; Admin Dose 81 MG; Start 08/06/18 at 09:00 Diagnostic Test (Pha) (Accu-Chek) 1 ea Q12 XX Last administered on 08/07/18at 08:27; Admin Dose 1 EA; Start 08/06/18 at 21:00 Assessment/Plan Hospital Course (Demo Recall) IMP: 1. Ventricular Fibrillation Arrest--s/p ROSC 2/2 STEMI s/p PCI status post hypothermia protocol 2. STEMI 3. 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 HUSEYIN--likely ATN 5. Ischemic hepatopathy--2/2 arrest 6. Metabolic acidosis--2/2 arrest RECS: 1. Cardiac catheterization today 2. Decrease sedation post cardiac catheterization to assess neurological status 3. Vent support 4. Post-PCI management per Cards 5. IV fluids 6. Start tube feeding if tolerated 7. DVT and GI prophylaxis 8. Prognosis guarded Critical care time 40 minutes CHINO ANDERSON MD, [facility] Aug 07, 2018 11:27
[2018-08-07] MEDS ORDERED: NITROGLYCERIN (IC) 100 MCG/ML INJ ONE (11:28)
[2018-08-07] MEDS ORDERED: IODIXANOL LOCM 100 ML BTL ONE (12:25)
[2018-08-07] MEDS ORDERED: IOHEXOL 350MG/ML 50 ML BTL ONE (12:25)
[2018-08-07] MEDS ORDERED: SOD CHLORIDE 0.9% 1,000 ML IV SCH (12:33)
--- NOTE | 2018-08-07 12:33 | OPR ---
Date/Time of Note Date/Time of Note DATE: 08/07/18 TIME: 12:25 Operative Report Procedure Date: Aug 07, 2018 Preoperative Diagnosis HI CAD Postoperative Diagnosis same Operation/Procedure Performed PCI LCX/ OM1 Surgeon see signature line Car Greaser ORTEGA Anesthesia Type: other Estimated Blood Loss: minimal Transfusion none Specimen NONE Grafts/Implants none Complications none Procedure Description Die Repair Machinist: Lois Rashid MD Indication: 38-year-old female who presented with V. fib cardiac arrest and underwent PCI of her 100% occluded LAD couple of days ago. Patient was noted to have very high-grade left cecum with obtuse marginal stenosis and was brought back for intervention on this vessels as well. Procure performed: #1 left heart catheterization and selective Left coronary angiogram #2 Successful PTCA and stenting of obtuse marginal 1 and distal left circumflex artery using a simultaneous kissing stent technique with use of a 2. 25 x 28 mm Synergy drug-eluting stent in the distal left circumflex artery and a 2.5 x 20 mm Synergy drug-eluting stent in the obtuse marginal 1 Findings: 1. Left main: is small size with diffuse disease and significant spasm also noted which improved with nitroglycerin intracoronary 2. LAD: The stents appear to be widely patent 3. Left circumflex artery: is nondominant. it is small. Has subtotal distal stenosis. OM1 has about 90% stenosis posteriorly. After successful PTCA stenting of these 2 lesion no significant residual stenosis left. Obtuse marginal 2 with small with about 90% ostial stenosis at the site of the bifurcation 4. LV EDP is 28 with no significant gradient across the aortic valve Procedure in detail: Written informed consent with obtained after risks benefits and alternatives discussed with the patient'S and parents in detail. risks including but not limited to risk of infection vascular complications, bleeding complications, HI stroke arrhythmia renal failure at even were discussed in detail. Patient was brought into the cardiac research lab assistant and placed in supine position. Right and left groin area was prepped and draped in regular sterile fashion . Previous sheath was removed and a new sheath was placed in. Then a rectal was advanced to engage the left ventricle hemodynamics as recorded by pullback aortic pressure was measured. At this time we decided to perform PCI of the left circumflex artery. A Voda 3 and a guiding head was advanced to engage the left main coronary artery, but significant pressure damping was noted. I had to change the guide to a JL4 guiding catheter. Intracoronary nitroglycerin was given angiography was obtained. Intracoronary nitroglycerin left main disease appears to be improving. BMW wire was used and advanced across the lesion and placed distal to the lesion in the to the obtuse marginal 1. Another BMW wire was used and advanced across into the distal left circumflex artery into the obtuse marginal artery. . I used a 2 x 15 mm balloon which was placed across the lesion and predilated the vessel both at the obtuse marginal 1 and distal left circumflex artery. Then I used a 2.25 x 28 mm Synergy drug-eluting stent which was placed across the lesion at distal left circumflex artery and another 2.5 x 20 mm Synergy drug-eluting stent was placed across the obtuse marginal 1 lesion at the ostium. Both stent was spontaneously inflated up to 12 michael. The coronary crease and was given angiography was obtained Final angiographic view was obtained which showed KRISSY-3 flow no evidence of dissection and no significant residual stenosis at the site of the stent. Patient tolerated the procedure well with no complication. Patient was transferred to ICU in stable condition. contrast used: 100 cc Visipaque Conclusions: Successful PTCA stenting of the distal left circumflex artery and obtuse marginal artery from up to 99% stenosis to no significant residual stenosis using a simultaneous kissing stent technique . Recommendations: Aggressive medical therapy. aspirin indefinitely dual antiplatlet therapy with aspirin and Brilinta ICU care LOIS RASHID MD [facility] LOIS RASHID MD Aug 07, 2018 12:33
[2018-08-07] MEDS: ATORVASTATIN 80 MG TAB PO SCH (21:04)
[2018-08-08] VITALS (54 sets, daily range): BP systolic 79–135; BP diastolic 45–93; PULSE 88–117; RESP 13–33
[2018-08-08] MEDS: ACETAMINOPHEN 650MG/20.3ML CUP PO SCH ×3 (00:19→12:00)
[2018-08-08] MEDS: ARTIFICIAL TEARS 15 ML OPH BOTH EYES SCH ×4 (00:20→18:05)
[2018-08-08] MEDS: OCULAR LUBRICANT 3.5 GM OPH OINT BOTH EYES SCH ×4 (00:20→18:05)
[2018-08-08] MEDS: SOD CHLORIDE 0.9% 1,000 ML IV SCH ×2 (00:21→08:30)
[2018-08-08] MEDS: FENTAnyl (DRIP) 1000 mcg/100mL 100 ML IV SCH ×2 (02:33→16:52)
[2018-08-08] MEDS: PROPOFOL 100 ML IV SCH ×3 (06:39→21:55)
--- NOTE | 2018-08-08 07:39 | CONS ---
Consult Date/Type/Reason Admit Date/Time Aug 04, 2018 at 23:10 Initial Consult Date 08/05/18 Type of Consultation: cv Requesting Provider: HARPAL AGGARWAL MD Date/Time of Note DATE: 08/08/18 TIME: 07:31 Subjective Interventional cardiology follow-up progress note/critical care Subjective: Events noted discussed with the staff and physicians. Patient remains intubated on the vent and has completed hypothermia protocol. No V tachycardia or fibrillation. Nonresponsive nonverbal. pt with poor urine output events noted s/p PCI 100% occluded LAD 08/04 S/P PCI LCX/ OM Objective: General: Obese female started with intubation on the vent HEENT: NC/AT. pupils are equal. round. NECK: . no stridor. CV: RRR. systolic murmur; no gallop or rubs. PULM: no wheezing + rhonchi. GI: Obese SOFT, NT, ND, no rebound or guarding Extremity: trace B/L LE edema. no clubbing. neuro: Sedated Psych: Calm now rectal: deferred As: Right femoral sheath in place EKG August 06, 2018 was personally within normal sinus rhythm. T wave inversions anterior and inferior leads ECG 08/07: NSR ST T abn c/w ant/lat ischemia Chest x-ray done August 06 shows:No evidence for active cardiopulmonary disease. ECHO personally reviewed Normal left ventricular cavity size. Normal left ventricular wall thickness. Ejection fraction is visually estimated at 55-65 %. Normal appearance of the mitral valve. Mitral valve is not well visualized. No mitral valve regurgitation is seen. Aortic valve not well visualized. No aortic regurgitation. Normal appearance of the tricuspid valve. Unable to obtain RVSP due to minimal presence of tricuspid regurgitation. No evidence of tricuspid regurgitation. Normal pericardium with no significant pericardial effusion. suboptimal study. Objective Vitals Vital Signs Date Temp Pulse Resp B/P (MAP) Pulse Ox O2 O2 Flow FiO2 Time Delivery Rate 08/08/18 98.7 06:28 08/08/18 89 19 100/50 98 Mechanical 06:00 (67) Ventilator 08/08/18 30 05:34 Intake and Output 08/07/18 08/07/18 08/08/18 1515:00 23:00 07:00 IntakeIntake Total 753.4 ml 907.96 ml 792.98 ml OutputOutput Total 977 ml 675 ml 360 ml BalanceBalance -223.6 ml 232.96 ml 432.98 ml Results/Medications Result Diagram: 08/08/18 0400 08/08/18 0400 Results 24 hrs Laboratory Tests Test 08/07/18 08:26 08/07/18 21:08 08/08/18 04:00 Bedside Glucose 102 113 White Blood Count 8.9 Red Blood Count 3.22 L Hemoglobin 9.3 L Hematocrit 28.8 L Mean Corpuscular Volume 89.4 Mean Corpuscular Hemoglobin 28.9 L Mean Corpuscular Hemoglobin Concent 32.3 Red Cell Distribution Width 14.8 H Platelet Count 103 L Mean Platelet Volume 14.1 H Immature Granulocytes % 0.900 H Neutrophils % Segmented Neutrophils % (Manual) 51 Band Neutrophils % (Manual) 30 H Lymphocytes % Lymphocytes % (Manual) 14 L Monocytes % Monocytes % (Manual) 4 Eosinophils % Eosinophils % (Manual) 1 Basophils % Nucleated Red Blood Cells % 0.0 Immature Granulocytes # 0.080 H Neutrophils # Neutrophils # (Manual) 4.8 Band Neutrophils # 2.6 H Lymphocytes (Manual) 1.2 Lymphocytes # Monocytes # Monocytes # (Manual) 0.3 Eosinophils # Basophils # Nucleated Red Blood Cells # Platelet Estimate DECREASED Giant Platelets 11 H Poikilocytosis 1+ Anisocytosis 1+ Sodium Level 142 Potassium Level 4.4 Chloride Level 117 H Carbon Dioxide Level 14 L Anion Gap 11 Blood Urea Nitrogen 19 Creatinine 1.23 H Est Glomerular Filtrat Rate mL/min 49 L Glucose Level 92 Calcium Level 7.4 L Magnesium Level 1.7 Total Bilirubin 0.2 Direct Bilirubin 0.10 Indirect Bilirubin 0.1 Aspartate Amino Transf (AST/SGOT) 110 H Alanine Aminotransferase (ALT/SGPT) 197 H Alkaline Phosphatase 200 H Creatine Kinase 1003 H Creatine Kinase Index 6.0 Creatinine Kinase MB (Mass) 59.90 H Troponin I 10.000 *H B-Type Natriuretic Peptide 15499 H Total Protein 5.5 L Albumin 2.4 L Globulin 3.10 Albumin/Globulin Ratio 0.77 Medications Current Medications Norepinephrine 250 ml @ 1.875 mls/ hr TITRATE IV ; Start 08/04/18 at 23:15 Ticagrelor (Brilinta) 90 mg BID PO Last administered on 08/07/18at 21:05; Admin Dose 90 MG; Start 08/05/18 at 09:00 Morphine Sulfate (morphine) 1 mg Q1H PRN IV PAIN Last administered on 08/05/18 00:55; Admin Dose 1 MG; Start 08/04/18 at 23:30 Docusate Sodium (Colace) 100 mg BID PO Last administered on 08/07/18 21:04; Admin Dose 100 MG; Start 08/05/18 at 09:00 Carvedilol (Coreg) 12.5 mg QID PO Last administered on 08/07/18 21:03; Admin Dose 12.5 MG; Start 08/04/18 at 23:30 Atorvastatin Calcium (Lipitor) 80 mg DAILY@21 PO Last administered on 08/07/18 21:04; Admin Dose 80 MG; Start 08/05/18 at 21:00 Miscellaneous Information (* Miscellaneous Pharmacy Order) Treatment of Hypoglycemia: 1.BG 51... Per protocol XX ; Start 08/05/18 at 01:30 Nitroglycerin/ Dextrose 250 ml @ 1.5 mls/hr TITRATE IV Last administered on 08/05/18at 14:22; Admin Dose 72 MLS/HR; Start 08/05/18 at 01:00 Propofol 100 ml @ 2.772 mls/ hr Q12H IV Last administered on 08/08/18 06:39; Admin Dose 11.088 MLS/HR; Start 08/05/18 at 04:00 Midazolam HCl 50 ml @ 1 mls/hr TITRATE IV Last administered on 08/05/18 19:22; Admin Dose 8 MLS/HR; Start 08/05/18 at 07:30 Miscellaneous Information 1 ea NOTE XX ; Start 08/05/18 at 09:00 Acetaminophen (Tylenol Supp) 650 mg Q4H PRN AL TEMP > 37C; Start 08/05/18 at 11:00 Acetaminophen (Tylenol Liquid) 650 mg Q4H PRN PO TEMP > 37C; Start 08/05/18 at 11:00 Acetaminophen (Tylenol Liquid) 500 mg Q6H PO Last administered on 08/08/18 06:28; Admin Dose 500 MG; Start 08/06/18 at 12:00 Meperidine HCl (Demerol) 25 mg Q4H PRN IV POST OPERATIVE SHIVERING Last administered on 3/17/19at 16:31; Admin Dose 25 MG; Start 08/05/18 at 11:00 Eye Lubricant (Akwa Oint) 1 applic Q6 BOTH EYES Last administered on 08/08/18at 06:28; Admin Dose 1 APPLIC; Start 08/05/18 at 12:00 Eye Lubricant (Artificial Tears Oph) 2 drop Q6 BOTH EYES Last administered on 08/08/18at 06:28; Admin Dose 2 DROP; Start 08/05/18 at 12:00 Miscellaneous Information (* Miscellaneous Pharmacy Order) Treatment of Hypoglycemia: 1.BG 51... Per protocol XX ; Start 08/05/18 at 12:00 Dextrose (D50w Syringe) 25 ml Q15M PRN IV .DECREASED GLUCOSE; Start 08/05/18 at 12:00 Dextrose (D50w Syringe) 50 ml Q15M PRN IV .DECREASED GLUCOSE; Start 08/05/18 at 12:00 Insulin Human Regular 100 unit/ Sodium Chloride 100 ml @ 0 mls/hr PER PROTOCOL IV ; Start 08/05/18 at 12:00 Miscellaneous Information (* Miscellaneous Pharmacy Order) Treatment of Hypogly cemia: 1.BG 51... Per protocol XX ; Start 08/05/18 at 12:00 Dextrose (D50w Syringe) 25 ml Q15M PRN IV .DECREASED GLUCOSE; Start 08/05/18 at 12:00 Dextrose (D50w Syringe) 50 ml Q15M PRN IV .DECREASED GLUCOSE; Start 08/05/18 at 12:00 Fentanyl 100 ml @ 2.5 mls/hr TITRATE IV Last administered on 08/08/18at 02:33; Admin Dose 10 MLS/HR; Start 08/05/18 at 12:00 Meperidine HCl (Demerol) 12.5 mg Q2H PRN IV POST OPERATIVE SHIVERING; Start 08/05/18 at 17:00 Sodium Chloride 1,000 ml @ 100 mls/hr Q10H IV Last administered on 08/08/18at 00:21; Admin Dose 100 MLS/HR; Start 08/05/18 at 20:30 Aspirin (Aspirin) 81 mg DAILY NGT Last administered on 08/07/18at 08:15; Admin Dose 81 MG; Start 08/06/18 at 09:00 Diagnostic Test (Pha) (Accu-Chek) 1 ea Q12 XX Last administered on 08/07/18at 08:27; Admin Dose 1 EA; Start 08/06/18 at 21:00 Assessment/Plan Hospital Course (Demo Recall) 1. s/p V. fib cardiac arrest 2. Acute myocardial infarction 3. Status post emergent PCI of the 100% occluded LAD as well as PTCA of the diagonal 4. Diabetes 5. Respiratory failure status post intubation on the vent 6. Hypertension 7. Renal failure possibly acute on chronic 8. Likely history of congestive heart failure 9. Dyslipidemia 10. Encephalopathy: Clear anoxic brain injury on hypothermia protocol 11. Morbid obesity 12. Anemia 13. elevated LFT 14. RI Recommendations: Continue with aspirin and Brilinta Insulin as PER IM Vent support respiratory care as per internal medicine and pulmonary consultants. weaning when stable dect Coreg to avoid hypotension Monitor renal function Plan for left heart catheterization coronary angiogram PCI of RCA prior to discharge once more stable More than 31 minutes of critical care time was for management treatment is critically patient excluding any procedures Thank you for his referral. We will continue to follow along with you LOIS JOHNSON MD [facility] LOIS JOHNSON MD Aug 08, 2018 07:39
--- NOTE | 2018-08-08 08:38 | PN ---
DATE: 08/08/2018 SUBJECTIVE: The patient remains critically ill and hypothermic rewarming phase. The patient had a c ardiac catheterization and PCI yesterday. No other events noted. OBJECTIVE: VITAL SIGNS: Blood pressure is 100/50, respirations 19, pulse 89, temperature 98.5. I's and O's wer e reviewed. HEENT: Head is normocephalic. NECK: Supple. HEART: Regular rate. LUNGS: Show diminished breath sounds at the base. ABDOMEN: Soft, nontender to palpation. No rebound or guarding. EXTREMITIES: Negative for clubbing, cyanosis, no edema. DERMATOLOGIC: No rashes. MUSCULOSKELETAL: No joint effusion. NEUROLOGIC: No change in exam. MEDICATIONS: Reviewed. LABORATORY DATA: Reviewed, shows sodium 142, potassium 4.4, BUN 19, creatinine 1.23. ABG was review ed. White count 8.9, hemoglobin 9.3, platelet count is 103. IMAGING STUDIES: Reviewed. ASSESSMENT AND PLAN: 1. Nonoliguric acute kidney injury with previously normal baseline creatinine. Etiology is likely a cute tubular necrosis secondary to cardiac arrest, ischemic hypoperfusion, possible contrast-associat ed nephropathy. The patient's renal function has stabilized in the last 24 hours. Urinary output denise s improved after diuretic challenge. At this point, we would continue current treatment plans, suppo rtive care, renally dose all medicines. 2. Hypokalemia. Continue to monitor and replete as needed. 3. Anemia. Monitor hemoglobin and hematocrit levels. 4. Mineral bone disorder. Monitor calcium and phosphorus levels. 5. Mixed acid base disorder. We will repeat an ABG. Continue to monitor. 6. Status post cardiac arrest secondary to ST elevated myocardial infarction. The patient is status post cardiac catheterization with PCI to the LAD. Continue medical management. Follow up with card iology. 7. Ventilator-dependent respiratory failure. Vent settings and ABG was reviewed. Continue to monit or. 8. History of coronary artery disease. Continue medical management. 9. Encephalopathy. Continue to monitor. 10. Hypertension. Continue current blood pressure regimen. 11. Gastrointestinal and deep vein thrombosis prophylaxis. Dictated By: BHUMI REDDY DO NR/NTS Conf#: [id number] DID#: [id number] CC: DANIAL TUCKER MD; THOMAS RILEY MD; CHINO ANDERSON MD;*EndCC*
[2018-08-08] MEDS ORDERED: MAGNESIUM SULFATE 3 GM in DEXTROSE 5% 100 ML IVPB ONE (09:00)
--- NOTE | 2018-08-08 09:12 | PN ---
Date/Time of Note Date/Time of Note DATE: 08/08/18 TIME: 09:12 Assessment/Plan VTE Prophylaxis Risk score (from Nsg)>0 risk: 10 SCD applied (from Nsg): Yes Pharmacological prophylaxis: heparin Lines/Catheters IV Catheter Type (from Nrsg): Central Line Central line still needed: Yes Urinary Cath still in place: Yes Reason Cath still needed: terminal illness/intractable pain Assessment/Plan Assessment/Plan 1. V-fib cardiac arrest secondary to STEMI - Completed hypothermia protocol and when off sedation opening eyes 2. CAD s/p OCI - Cardiology on board and appreciate recommendations. - s/p emergent Cath with successful PTCA and stenting of proximal and mid LAD, PTCA of the large first diagonal and thrombectomy of the LAD - Repeat PCI on 08/07 performed with senting to [facility]x - plans for stenting of RCA prior to discharge - Continue cardiac medications including dual antiplatelets, statin and beta- laura - ECHO results noted 3. Acute hypoxic respiratory failure - Pulm on board for vent management 4. HUSEYIN - secondary to ATN vs prerenal vs contrast induced nephropathy - Nephrology on board and appreciate recommendations - avoid nephrotoxic agents 5. Hypertension - BP stable 6. Diabetes - A1c noted 7. Transaminitis- improving - most likely secondary to hypoperfusion - continue monitoring LFTs - RUQ US noted 8. Disposition - continue monitoring in ICU while requiring ventilator support - daily sedation holiday and SBT >35 minutes of critical care time spent with patient Result Diagram: 08/08/18 0400 08/08/18 0400 Results 24hrs Laboratory Tests Test 08/07/18 21:08 08/08/18 04:00 08/08/18 07:00 Bedside Glucose 113 White Blood Count 8.9 Red Blood Count 3.22 L Hemoglobin 9.3 L Hematocrit 28.8 L Mean Corpuscular Volume 89.4 Mean Corpuscular Hemoglobin 28.9 L Mean Corpuscular 32.3 Hemoglobin Concent Red Cell Distribution Width 14.8 H Platelet Count 103 L Mean Platelet Volume 14.1 H Immature Granulocytes % 0.900 H Neutrophils % Segmented Neutrophils 51 % (Manual) Band Neutrophils % (Manual) 30 H Lymphocytes % Lymphocytes % (Manual) 14 L Monocytes % Monocytes % (Manual) 4 Eosinophils % Eosinophils % (Manual) 1 Basophils % Nucleated Red Blood Cells % 0.0 Immature Granulocytes # 0.080 H Neutrophils # Neutrophils # (Manual) 4.8 Band Neutrophils # 2.6 H Lymphocytes (Manual) 1.2 Lymphocytes # Monocytes # Monocytes # (Manual) 0.3 Eosinophils # Basophils # Nucleated Red Blood Cells # Platelet Estimate DECREASED Giant Platelets 11 H Poikilocytosis 1+ Anisocytosis 1+ Sodium Level 142 Potassium Level 4.4 Chloride Level 117 H Carbon Dioxide Level 14 L Anion Gap 11 Blood Urea Nitrogen 19 Creatinine 1.23 H Est Glomerular Filtrat 49 L Rate mL/min Glucose Level 92 Calcium Level 7.4 L Magnesium Level 1.7 Total Bilirubin 0.2 Direct Bilirubin 0.10 Indirect Bilirubin 0.1 Aspartate Amino 110 H Transf (AST/SGOT) Alanine 197 H Aminotransferase (ALT/SGPT) Alkaline Phosphatase 200 H Creatine Kinase 1003 H Creatine Kinase Index 6.0 Creatinine Kinase MB (Mass) 59.90 H Troponin I 10.000 *H B-Type Natriuretic Peptide 60673 H Total Protein 5.5 L Albumin 2.4 L Globulin 3.10 Albumin/Globulin Ratio 0.77 Blood Gas Specimen Source Blood arterial Arterial Blood Date Drawn 08/08/2018 8:20:56 AM Arterial Blood pH 7.216 *L (Temp corrected) Arterial Blood pCO2 31.6 L (Temp correct) Arterial Blood pO2 105.4 H (Temp corrected) Arterial Blood HCO3 12.5 L Arterial Blood Base Excess -14.0 L Arterial Blood 96.9 Oxygen Saturation Dajuan Test ACCEPTAB Arterial Blood Gas Right Radial Puncture Site Arterial 0.2 Blood Carboxyhemoglobin Arterial Blood Methemoglobin 0.5 Blood Gas A-a O2 71.4 H Differential Oxyhemoglobin Percent 96.2 Blood Gas Temperature 37.0 Blood Gas Respiration Rate 20.0 Blood Gas Actual 25 Respiration Rate Blood Gas Modality VENT - AC FiO2 30.0 Blood Gas Tidal Volume 450.0 Blood Gas Low PEEP Setting 5.0 Blood Gas Critical Value [place] BAPTISTE RN Read Back Blood Gas Notified Whom DT Blood Gas Notified Time 08/08/2018 8:39:17 AM Subjective 24 Hr Interval Summary Free Text/Dictation When weaned off sedation in the am, patient was opening eyes but not following commands. Remains intubated and on sedation. No acute overnight events. Exam/Review of Systems Exam Vitals Vital Signs Date Temp Pulse Resp B/P (MAP) Pulse Ox O2 O2 Flow FiO2 Time Delivery Rate 08/08/18 30 08:50 08/08/18 89 30 99 08:10 08/08/18 98.5 07:30 08/08/18 100/50 Mechanical 06:00 (67) Ventilator Intake and Output 08/07/18 08/07/18 08/08/18 1515:00 23:00 07:00 IntakeIntake Total 753.4 ml 907.96 ml 792.98 ml OutputOutput Total 977 ml 675 ml 360 ml BalanceBalance -223.6 ml 232.96 ml 432.98 ml Exam General: Patient is laying in bed, intubated and sedated Eyes: EOMI, pupils reactive to light, equal size Neck: Supple, nontender, midline Respiratory: Clear to auscultation bilaterally. coarse expiratory breath sounds. no wheezing appreciated Cardiovascular: regular rate and rhythm, no obvious murmurs Gastrointestinal: soft, nontender, nondistended, bowel sounds heard. Ext: pedal edema, no cyanosis or clubbing Skin: No new skin lesions Results Results 24hrs Laboratory Tests Test 08/07/18 21:08 08/08/18 04:00 08/08/18 07:00 Bedside Glucose 113 White Blood Count 8.9 Red Blood Count 3.22 L Hemoglobin 9.3 L Hematocrit 28.8 L Mean Corpuscular Volume 89.4 Mean Corpuscular Hemoglobin 28.9 L Mean Corpuscular 32.3 Hemoglobin Concent Red Cell Distribution Width 14.8 H Platelet Count 103 L Mean Platelet Volume 14.1 H Immature Granulocytes % 0.900 H Neutrophils % Segmented Neutrophils 51 % (Manual) Band Neutrophils % (Manual) 30 H Lymphocytes % Lymphocytes % (Manual) 14 L Monocytes % Monocytes % (Manual) 4 Eosinophils % Eosinophils % (Manual) 1 Basophils % Nucleated Red Blood Cells % 0.0 Immature Granulocytes # 0.080 H Neutrophils # Neutrophils # (Manual) 4.8 Band Neutrophils # 2.6 H Lymphocytes (Manual) 1.2 Lymphocytes # Monocytes # Monocytes # (Manual) 0.3 Eosinophils # Basophils # Nucleated Red Blood Cells # Platelet Estimate DECREASED Giant Platelets 11 H Poikilocytosis 1+ Anisocytosis 1+ Sodium Level 142 Potassium Level 4.4 Chloride Level 117 H Carbon Dioxide Level 14 L Anion Gap 11 Blood Urea Nitrogen 19 Creatinine 1.23 H Est Glomerular Filtrat 49 L Rate mL/min Glucose Level 92 Calcium Level 7.4 L Magnesium Level 1.7 Total Bilirubin 0.2 Direct Bilirubin 0.10 Indirect Bilirubin 0.1 Aspartate Amino 110 H Transf (AST/SGOT) Alanine 197 H Aminotransferase (ALT/SGPT) Alkaline Phosphatase 200 H Creatine Kinase 1003 H Creatine Kinase Index 6.0 Creatinine Kinase MB (Mass) 59.90 H Troponin I 10.000 *H B-Type Natriuretic Peptide 66760 H Total Protein 5.5 L Albumin 2.4 L Globulin 3.10 Albumin/Globulin Ratio 0.77 Blood Gas Specimen Source Blood arterial Arterial Blood Date Drawn 08/08/2018 8:20:56 AM Arterial Blood pH 7.216 *L (Temp corrected) Arterial Blood pCO2 31.6 L (Temp correct) Arterial Blood pO2 105.4 H (Temp corrected) Arterial Blood HCO3 12.5 L Arterial Blood Base Excess -14.0 L Arterial Blood 96.9 Oxygen Saturation Dajuan Test ACCEPTAB Arterial Blood Gas Right Radial Puncture Site Arterial 0.2 Blood Carboxyhemoglobin Arterial Blood Methemoglobin 0.5 Blood Gas A-a O2 71.4 H Differential Oxyhemoglobin Percent 96.2 Blood Gas Temperature 37.0 Blood Gas Respiration Rate 20.0 Blood Gas Actual 25 Respiration Rate Blood Gas Modality VENT - AC FiO2 30.0 Blood Gas Tidal Volume 450.0 Blood Gas Low PEEP Setting 5.0 Blood Gas Critical Value Virginia BAPTISTE RN Read Back Blood Gas Notified Whom DT Blood Gas Notified Time 08/08/2018 8:39:17 AM Medications Medication Current Medications Norepinephrine 250 ml @ 1.875 mls/ hr TITRATE IV ; Start 08/04/18 at 23:15 Ticagrelor (Brilinta) 90 mg BID PO Last administered on 08/07/18at 21:05; Admin Dose 90 MG; Start 08/05/18 at 09:00 Morphine Sulfate (morphine) 1 mg Q1H PRN IV PAIN Last administered on 08/05/18at 00:55; Admin Dose 1 MG; Start 08/04/18 at 23:30 Docusate Sodium (Colace) 100 mg BID PO Last administered on 08/07/18at 21:04; Admin Dose 100 MG; Start 08/05/18 at 09:00 Atorvastatin Calcium (Lipitor) 80 mg DAILY@21 PO Last administered on 08/07/18at 21:04; Admin Dose 80 MG; Start 08/05/18 at 21:00 Nitroglycerin/ Dextrose 250 ml @ 1.5 mls/hr TITRATE IV Last administered on 08/05/18at 14:22; Admin Dose 72 MLS/HR; Start 08/05/18 at 01:00 Propofol 100 ml @ 2.772 mls/ hr Q12H IV Last administered on 08/08/18at 06:39; Admin Dose 11.088 MLS/HR; Start 08/05/18 at 04:00 Midazolam HCl 50 ml @ 1 mls/hr TITRATE IV Last administered on 08/05/18at 19:22; Admin Dose 8 MLS/HR; Start 08/05/18 at 07:30 Miscellaneous Information 1 ea NOTE XX ; Start 08/05/18 at 09:00 Acetaminophen (Tylenol Supp) 650 mg Q4H PRN [place] TEMP > 37C; Start 08/05/18 at 11:00 Acetaminophen (Tylenol Liquid) 650 mg Q4H PRN PO TEMP > 37C; Start 08/05/18 at 11:00 Acetaminophen (Tylenol Liquid) 500 mg Q6H PO Last administered on 08/08/18at 06:28; Admin Dose 500 MG; Start 08/06/18 at 12:00 Meperidine HCl (Demerol) 25 mg Q4H PRN IV POST OPERATIVE SHIVERING Last administered on 08/05/18at 16:31; Admin Dose 25 MG; Start 08/05/18 at 11:00 Eye Lubricant (Akwa Oint) 1 applic Q6 BOTH EYES Last administered on 08/08/18 06:28; Admin Dose 1 APPLIC; Start 08/05/18 at 12:00 Eye Lubricant (Artificial Tears Oph) 2 drop Q6 BOTH EYES Last administered on 08/08/18 06:28; Admin Dose 2 DROP; Start 08/05/18 at 12:00 Insulin Human Regular 100 unit/ Sodium Chloride 100 ml @ 0 mls/hr PER PROTOCOL IV ; Start 08/05/18 at 12:00 Miscellaneous Information (* Miscellaneous Pharmacy Order) Treatment of Hypoglycemia: 1.BG 51... Per protocol XX ; Start 08/05/18 at 12:00 Dextrose (D50w Syringe) 25 ml Q15M PRN IV .DECREASED GLUCOSE; Start 08/05/18 at 12:00 Dextrose (D50w Syringe) 50 ml Q15M PRN IV .DECREASED GLUCOSE; Start 08/05/18 at 12:00 Fentanyl 100 ml @ 2.5 mls/hr TITRATE IV Last administered on 08/08/18at 02:33; Admin Dose 10 MLS/HR; Start 08/05/18 at 12:00 Meperidine HCl (Demerol) 12.5 mg Q2H PRN IV POST OPERATIVE SHIVERING; Start 08/05/18 at 17:00 Sodium Chloride 1,000 ml @ 75 mls/hr [id number] IV Last administered on 08/08/18at 00:21; Admin Dose 100 MLS/HR; Start 08/05/18 at 20:30 Aspirin (Aspirin) 81 mg DAILY NGT Last administered on 08/07/18 08:15; Admin Dose 81 MG; Start 08/06/18 at 09:00 Diagnostic Test (Pha) (Accu-Chek) 1 ea Q12 XX Last administered on 08/07/18at 08:27; Admin Dose 1 EA; Start 08/06/18 at 21:00 Carvedilol (Coreg) 6.25 mg QID PO ; Start 08/08/18 at 09:00 Magnesium Sulfate 3 gm/Dextrose 106 ml @ 35.333 mls/ hr ONCE ONCE IVPB ; Start 08/08/18 at 09:00; Stop 08/08/18 at 11:59 THOMAS RILEY MD Aug 08, 2018 09:12
[2018-08-08] MEDS: ASPIRIN 81 MG TAB NGT SCH (09:18)
[2018-08-08] MEDS: DOCUSATE SODIUM 100 MG CAP PO SCH ×2 (09:18→20:46)
[2018-08-08] MEDS: ACCU-CHEK XX SCH ×2 (09:21→21:00)
[2018-08-08] MEDS: TICAGRELOR 90 MG TABLET PO SCH ×2 (09:24→21:07)
[2018-08-08] MEDS ORDERED: SODIUM BICARBONATE (IV ADD) 100 MEQ in DEXTROSE 5%-0.45% NACL 1,000 ML IV SCH (09:30)
--- NOTE | 2018-08-08 11:24 | CONS ---
Consult Date/Type/Reason Admit Date/Time Aug 04, 2018 at 23:10 Initial Consult Date 08/05/18 Type of Consult Pulmonary Requesting Provider: HARPAL AGGARWAL MD Date/Time of Note DATE: 08/08/18 TIME: 11:22 Subjective Patient remains intubated on mechanical ventilation. With decrease sedation patient is breathing to open her eyes.Status post 2 stent placements yesterday. Objective Vital Signs Date Temp Pulse Resp B/P (MAP) Pulse Ox O2 O2 Flow FiO2 Time Delivery Rate 08/08/18 94 29 100 30 10:00 08/08/18 108/68 Mechanical 09:30 (81) Ventilator 08/08/18 98.4 08:00 Intake and Output 08/07/18 08/07/18 08/08/18 1515:00 23:00 07:00 IntakeIntake Total 753.4 ml 907.96 ml 792.98 ml OutputOutput Total 977 ml 675 ml 360 ml BalanceBalance -223.6 ml 232.96 ml 432.98 ml Exam Young lady orally intubated on mechanical ventilation VITAL SIGNS: per chart NECK: Supple. No JVD or lymphadenopathy. CARDIAC EXAM: S1, S2. No added sounds or murmurs. CHEST: Diminished air entry bilaterally ABDOMEN: Soft, nontender. No guarding or rebound. Diminished bowel sounds EXTREMITIES: No cyanosis, clubbing edema +2 NEUROLOGIC: Unable to assess Vent Setting Ventilator Support Mode: AC, VC plus Fraction of Inspired Oxygen pe: 30 Positive End Expiratory Pressu: 5.0 Results/Medications Result Diagram: 08/08/18 0400 08/08/18 0400 Results 24 hrs Laboratory Tests Test 08/07/18 21:08 08/08/18 04:00 08/08/18 07:00 08/08/18 09:21 Bedside Glucose 113 93 White Blood Count 8.9 Red Blood Count 3.22 L Hemoglobin 9.3 L Hematocrit 28.8 L Mean Corpuscular 89.4 Volume Mean Corpuscular 28.9 L Hemoglobin Mean Corpuscular 32.3 Hemoglobin Concen t Red Cell 14.8 H Distribution Width Platelet Count 103 L Mean Platelet 14.1 H Volume Immature 0.900 H Granulocytes % Neutrophils % Segmented 51 Neutrophils % (Manual) Band Neutrophils 30 H % (Manual) Lymphocytes % Lymphocytes % 14 L (Manual) Monocytes % Monocytes % 4 (Manual) Eosinophils % Eosinophils % 1 (Manual) Basophils % Nucleated Red 0.0 Blood Cells % Immature 0.080 H Granulocytes # Neutrophils # Neutrophils # 4.8 (Manual) Band Neutrophils 2.6 H # Lymphocytes 1.2 (Manual) Lymphocytes # Monocytes # Monocytes # 0.3 (Manual) Eosinophils # Basophils # Nucleated Red Blood Cells # Platelet Estimate DECREASED Giant Platelets 11 H Poikilocytosis 1+ Anisocytosis 1+ Sodium Level 142 Potassium Level 4.4 Chloride Level 117 H Carbon Dioxide 14 L Level Anion Gap 11 Blood Urea 19 Nitrogen Creatinine 1.23 H Est Glomerular 49 L Filtrat Rate mL/min Glucose Level 92 Calcium Level 7.4 L Magnesium Level 1.7 Total Bilirubin 0.2 Direct Bilirubin 0.10 Indirect 0.1 Bilirubin Aspartate Amino 110 H Transf (AST/SGOT) Alanine 197 H Aminotransferase (ALT/SGPT) Alkaline 200 H Phosphatase Creatine Kinase 1003 H Creatine Kinase 6.0 Index Creatinine Kinase 59.90 H MB (Mass) Troponin I 10.000 *H B-Type 14685 H Natriuretic Peptide Total Protein 5.5 L Albumin 2.4 L Globulin 3.10 Albumin/Globulin 0.77 Ratio Blood Gas Blood arterial Specimen Source Arterial Blood 08/08/2018 8:20:5 Date Drawn 6 AM Arterial Blood pH 7.216 *L (Temp corrected) Arterial Blood 31.6 L pCO2 (Temp correct) Arterial Blood 105.4 H pO2 (Temp corrected) Arterial Blood 12.5 L HCO3 Arterial Blood -14.0 L Base Excess Arterial Blood 96.9 Oxygen Saturation Dajuan Test ACCEPTAB Arterial Blood Right Radial Gas Puncture Site Arterial 0.2 Blood Carboxyhemo globin Arterial Blood 0.5 Methemoglobin Blood Gas A-a O2 71.4 H Differential Oxyhemoglobin 96.2 Percent Blood Gas 37.0 Temperature Blood Gas 20.0 Respiration Rate Blood Gas Actual 25 Respiration Rate Blood Gas VENT - AC Modality FiO2 30.0 Blood Gas Tidal 450.0 Volume Blood Gas Low 5.0 PEEP Setting Blood Gas [place] BAPTISTE RN Critical Value Read Back Blood Gas DT Notified Whom Blood Gas 08/08/2018 8:39:1 Notified Time 7 AM Medications Current Medications Norepinephrine 250 ml @ 1.875 mls/ hr TITRATE IV ; Start 08/04/18 at 23:15 Ticagrelor (Brilinta) 90 mg BID PO Last administered on 3/20/19at 09:24; Admin Dose 90 MG; Start 08/05/18 at 09:00 Morphine Sulfate (morphine) 1 mg Q1H PRN IV PAIN Last administered on 08/05/18 00:55; Admin Dose 1 MG; Start 08/04/18 at 23:30 Docusate Sodium (Colace) 100 mg BID PO Last administered on 08/08/18 09:18; Admin Dose 100 MG; Start 08/05/18 at 09:00 Atorvastatin Calcium (Lipitor) 80 mg DAILY@21 PO Last administered on 08/07/18 21:04; Admin Dose 80 MG; Start 08/05/18 at 21:00 Nitroglycerin/ Dextrose 250 ml @ 1.5 mls/hr TITRATE IV Last administered on 08/05/18 14:22; Admin Dose 72 MLS/HR; Start 08/05/18 at 01:00 Propofol 100 ml @ 2.772 mls/ hr Q12H IV Last administered on 08/08/18 06:39; Admin Dose 11.088 MLS/HR; Start 08/05/18 at 04:00 Midazolam HCl 50 ml @ 1 mls/hr TITRATE IV Last administered on 08/05/18 19:22; Admin Dose 8 MLS/HR; Start 08/05/18 at 07:30 Miscellaneous Information 1 ea NOTE XX ; Start 08/05/18 at 09:00 Acetaminophen (Tylenol Supp) 650 mg Q4H PRN [place] TEMP > 37C; Start 08/05/18 at 11:00 Acetaminophen (Tylenol Liquid) 650 mg Q4H PRN PO TEMP > 37C; Start 08/05/18 at 11:00 Acetaminophen (Tylenol Liquid) 500 mg Q6H PO Last administered on 08/08/18 06:28; Admin Dose 500 MG; Start 08/06/18 at 12:00 Meperidine HCl (Demerol) 25 mg Q4H PRN IV POST OPERATIVE SHIVERING Last administered on 08/05/18 16:31; Admin Dose 25 MG; Start 08/05/18 at 11:00 Eye Lubricant (Akwa Oint) 1 applic Q6 BOTH EYES Last administered on 08/08/18 06:28; Admin Dose 1 APPLIC; Start 08/05/18 at 12:00 Eye Lubricant (Artificial Tears Oph) 2 drop Q6 BOTH EYES Last administered on 08/08/18at 06:28; Admin Dose 2 DROP; Start 08/05/18 at 12:00 Insulin Human Regular 100 unit/ Sodium Chloride 100 ml @ 0 mls/hr PER PROTOCOL IV ; Start 08/05/18 at 12:00 Miscellaneous Information (* Miscellaneous Pharmacy Order) Treatment of Hypoglycemia: 1.BG 51... Per protocol XX ; Start 08/05/18 at 12:00 Dextrose (D50w Syringe) 25 ml Q15M PRN IV .DECREASED GLUCOSE; Start 08/05/18 at 12:00 Dextrose (D50w Syringe) 50 ml Q15M PRN IV .DECREASED GLUCOSE; Start 08/05/18 at 12:00 Fentanyl 100 ml @ 2.5 mls/hr TITRATE IV Last administered on 08/08/18at 02:33; Admin Dose 10 MLS/HR; Start 08/05/18 at 12:00 Meperidine HCl (Demerol) 12.5 mg Q2H PRN IV POST OPERATIVE SHIVERING; Start 08/05/18 at 17:00 Aspirin (Aspirin) 81 mg DAILY NGT Last administered on 08/08/18at 09:18; Admin Dose 81 MG; Start 08/06/18 at 09:00 Diagnostic Test (Pha) (Accu-Chek) 1 ea Q12 XX Last administered on 08/08/18at 09:21; Admin Dose 1 EA; Start 08/06/18 at 21:00 Carvedilol (Coreg) 6.25 mg QID PO ; Start 08/08/18 at 09:00 Magnesium Sulfate 3 gm/Dextrose 106 ml @ 35.333 mls/ hr ONCE ONCE IVPB Last administered on 08/08/18at 10:38; Admin Dose 35.333 MLS/HR; Start 08/08/18 at 09:00; Stop 08/08/18 at 11:59 Sodium Bicarbonate 100 meq/Dextrose/ Sodium Chloride 1,100 ml @ 100 mls/hr Q11H IV ; Start 08/08/18 at 09:30 Sodium Bicarbonate 100 meq/Dextrose/ Sodium Chloride 1,100 ml @ 100 mls/hr Q11H IV ; Start 08/08/18 at 10:00 Assessment/Plan Hospital Course (Demo Recall) IMP: 1. Ventricular Fibrillation Arrest--s/p ROSC 2/2 STEMI s/p PCI status post hypothermia protocol 2. STEMI, Status post stent x3 placement. 3. 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 HUSEYIN--likely ATN 5. Ischemic hepatopathy--2/2 arrest 6. Metabolic acidosis--2/2 arrest RECS: 1. Continue mechanical ventilation 2. Metabolic acidosis will require bicarbonate drip. 3 Continue renal recommendations 4. Start tube feeding 5. Continue DVT and GI prophylaxis Overall prognosis still guarded Critical care time 40 minutes CHINO ANDERSON MD, [facility] Aug 08, 2018 11:24
[2018-08-08] MEDS: SODIUM BICARBONATE (IV ADD) 100 MEQ in DEXTROSE 5%-0.45% NACL 1,000 ML IV SCH ×2 (11:57→21:00)
[2018-08-08] MEDS ORDERED: ALBUMIN HUMAN 25% 50 ML IV ONE (13:30)
--- NOTE | 2018-08-08 15:33 | RADRPT ---
Vent Rate: 105 bpm RR Interval: 0 msec [place] Interval: 120 msec QRS Duration: 94 msec QT Interval: 420 msec QTC Interval: 555 msec P-R-T [place]: 52 - 59 - [address] & T wave abnormality, consider anterolateral ischemia Abnormal ECG Electronically Signed By: Rashad Fabian
--- NOTE | 2018-08-08 15:33 | RADRPT ---
Vent Rate: 95 bpm RR Interval: 0 msec [place] Interval: 142 msec QRS Duration: 86 msec QT Interval: 440 msec QTC Interval: 552 msec P-R-T [place]: 59 - 72 - 142 degrees Age and gender specific ECG analysis Normal sinus rhythm ST elevation, consider inferior injury or acute infarct Prolonged QT ACUTE CO Consider right ventricular involvement in acute inferior infarct Abnormal ECG Electronically Signed By: Rashad Fabian
[2018-08-08] MEDS: ATORVASTATIN 80 MG TAB PO SCH (20:46)
[2018-08-08] MEDS ORDERED: SOD CHLORIDE 0.9% 1,000 ML IV SCH (22:30)
[2018-08-09] VITALS (42 sets, daily range): BP systolic 68–136; BP diastolic 50–71; PULSE 63–116; RESP 17–37
[2018-08-09] MEDS: SODIUM BICARBONATE (IV ADD) 100 MEQ in DEXTROSE 5%-0.45% NACL 1,000 ML IV SCH ×3 (00:30→23:28)
[2018-08-09] MEDS: ARTIFICIAL TEARS 15 ML OPH BOTH EYES SCH ×5 (00:30→23:03)
[2018-08-09] MEDS: OCULAR LUBRICANT 3.5 GM OPH OINT BOTH EYES SCH ×5 (00:31→23:03)
[2018-08-09] MEDS: PROPOFOL 100 ML IV SCH (04:37)
[2018-08-09] MEDS ORDERED: PANTOPRAZOLE 40 MG INJ IV SCH (06:00)
--- NOTE | 2018-08-09 07:32 | CONS ---
Consult Date/Type/Reason Admit Date/Time Aug 04, 2018 at 23:10 Initial Consult Date 08/05/18 Type of Consultation: cv Requesting Provider: HARPAL AGGARWAL MD Date/Time of Note DATE: 08/09/18 TIME: 07:24 Subjective Interventional cardiology follow-up progress note/critical care Subjective: Events noted discussed with the staff and physicians. Patient remains intubated on the vent No V tachycardia or fibrillation. Nonresponsive nonverbal. pt with better urine output but raising creatinine pt also with vaginal bleeding/ periods ? coffee ground emesis + fever events noted s/p PCI 100% occluded LAD 08/04 S/P PCI LCX/ OM Objective: General: Obese female started with intubation on the vent HEENT: NC/AT. pupils are equal. round. NECK: . no stridor. CV: RRR. systolic murmur; no gallop or rubs. PULM: no wheezing + diffuse rhonchi. GI: Obese SOFT, NT, ND, no rebound or guarding Extremity: trace B/L LE edema. no clubbing. neuro: Sedated Psych: Calm now rectal: deferred As: Right femoral sheath in place EKG August 06, 2018 was personally within normal sinus rhythm. T wave inversions anterior and inferior leads ECG 08/07: NSR ST T abn c/w ant/lat ischemia Chest x-ray done August 06 shows:No evidence for active cardiopulmonary disease. ECHO personally reviewed Normal left ventricular cavity size. Normal left ventricular wall thickness. Ejection fraction is visually estimated at 55-65 %. Normal appearance of the mitral valve. Mitral valve is not well visualized. No mitral valve regurgitation is seen. Aortic valve not well visualized. No aortic regurgitation. Normal appearance of the tricuspid valve. Unable to obtain RVSP due to minimal presence of tricuspid regurgitation. No evidence of tricuspid regurgitation. Normal pericardium with no significant pericardial effusion. suboptimal study. Objective Vitals Vital Signs Date Temp Pulse Resp B/P (MAP) Pulse Ox O2 O2 Flow FiO2 Time Delivery Rate 08/09/18 108 27 100/62 95 Mechanical 06:00 (75) Ventilator 08/09/18 50 05:58 08/09/18 99.8 05:22 Intake and Output 08/08/18 08/08/18 08/09/18 1414:59 22:59 06:59 IntakeIntake Total 443.08 ml 986.272 ml 1270.704 ml OutputOutput Total 280 ml 330 ml 320 ml BalanceBalance 163.08 ml 656.272 ml 950.704 ml Results/Medications Result Diagram: 08/09/18 0500 08/09/18 0500 Results 24 hrs Laboratory Tests Test 08/08/18 09:21 08/08/18 21:50 08/09/18 04:30 08/09/18 05:00 Bedside Glucose 93 124 Urine Color NIYAH Urine Clarity CLOUDY A Urine pH 5.0 Urine Specific 1.026 [place] Urine Ketones NEGATIVE Urine Nitrite NEGATIVE Urine Bilirubin NEGATIVE Urine Urobilinogen 1+ H Urine Leukocyte TRACE A Esterase Urine Microscopic 34 H RBC Urine Microscopic 16 H WBC Urine Squamous FEW Epithelial Cells Urine Hyaline Casts FEW A Urine Mucus FEW A Urine Hemoglobin NEGATIVE Urine Glucose NEGATIVE Urine Total Protein 2+ H White Blood Count 4.0 #L Red Blood Count 2.60 L Hemoglobin 7.4 #L Hematocrit 23.2 L Mean Corpuscular 89.2 Volume Mean Corpuscular 28.5 L Hemoglobin Mean Corpuscular 31.9 L Hemoglobin Concent Red Cell 15.4 H Distribution Width Platelet Count 102 L Mean Platelet Volume 14.4 H Immature 4.100 H Granulocytes % Neutrophils % Lymphocytes % Monocytes % Eosinophils % Basophils % Nucleated Red Blood 1.0 H Cells % Immature 0.160 H Granulocytes # Neutrophils # Lymphocytes # Monocytes # Eosinophils # Basophils # Nucleated Red Blood Cells # Sodium Level 143 Potassium Level 3.8 Chloride Level 119 H Carbon Dioxide Level 16 L Anion Gap 8 Blood Urea Nitrogen 26 H Creatinine 1.57 H Est Glomerular 37 L Filtrat Rate mL/min Glucose Level 108 Calcium Level 7.2 L Magnesium Level 2.6 H Total Bilirubin 0.2 Direct Bilirubin 0.00 Indirect Bilirubin 0.2 Aspartate Amino 81 H Transf (AST/SGOT) Alanine 129 H Aminotransferase (AL T/SGPT) Alkaline Phosphatase 191 H Creatine Kinase 750 H Creatine Kinase 2.2 Index Creatinine Kinase MB 16.30 H (Mass) Troponin I 5.940 *H Total Protein 4.9 L Albumin 2.3 L Globulin 2.60 Albumin/Globulin 0.88 Ratio Medications Current Medications Norepinephrine 250 ml @ 1.875 mls/ hr TITRATE IV ; Start 08/04/18 at 23:15 Ticagrelor (Brilinta) 90 mg BID PO Last administered on 08/08/18 21:07; Admin Dose 90 MG; Start 08/05/18 at 09:00 Morphine Sulfate (morphine) 1 mg Q1H PRN IV PAIN Last administered on 08/05/18 00:55; Admin Dose 1 MG; Start 08/04/18 at 23:30 Docusate Sodium (Colace) 100 mg BID PO Last administered on 08/08/18 20:46; Admin Dose 100 MG; Start 08/05/18 at 09:00 Atorvastatin Calcium (Lipitor) 80 mg DAILY@21 PO Last administered on 08/08/18 20:46; Admin Dose 80 MG; Start 08/05/18 at 21:00 Nitroglycerin/ Dextrose 250 ml @ 1.5 mls/hr TITRATE IV Last administered on 08/05/18 14:22; Admin Dose 72 MLS/HR; Start 08/05/18 at 01:00 Propofol 100 ml @ 2.772 mls/ hr Q12H IV Last administered on 08/09/18 04:37; Admin Dose 11.088 MLS/HR; Start 08/05/18 at 04:00 Midazolam HCl 50 ml @ 1 mls/hr TITRATE IV Last administered on 08/05/18 19:22; Admin Dose 8 MLS/HR; Start 08/05/18 at 07:30 Miscellaneous Information 1 ea NOTE XX ; Start 08/05/18 at 09:00 Acetaminophen (Tylenol Supp) 650 mg Q4H PRN [place] TEMP > 37C Last administered on 08/09/18 04:37; Admin Dose 650 MG; Start 08/05/18 at 11:00 Acetaminophen (Tylenol Liquid) 650 mg Q4H PRN PO TEMP > 37C; Start 08/05/18 at 11:00 Meperidine HCl (Demerol) 25 mg Q4H PRN IV POST OPERATIVE SHIVERING Last administered on 08/05/18 16:31; Admin Dose 25 MG; Start 08/05/18 at 11:00 Eye Lubricant (Akwa Oint) 1 applic Q6 BOTH EYES Last administered on 08/09/18 05:27; Admin Dose 1 APPLIC; Start 08/05/18 at 12:00 Eye Lubricant (Artificial Tears Oph) 2 drop Q6 BOTH EYES Last administered on 3/21/19at 05:27; Admin Dose 2 DROP; Start 08/05/18 at 12:00 Insulin Human Regular 100 unit/ Sodium Chloride 100 ml @ 0 mls/hr PER PROTOCOL IV ; Start 08/05/18 at 12:00 Miscellaneous Information (* Miscellaneous Pharmacy Order) Treatment of Hypoglycemia: 1.BG 51... Per protocol XX ; Start 08/05/18 at 12:00 Dextrose (D50w Syringe) 25 ml Q15M PRN IV .DECREASED GLUCOSE; Start 08/05/18 at 12:00 Dextrose (D50w Syringe) 50 ml Q15M PRN IV .DECREASED GLUCOSE; Start 08/05/18 at 12:00 Fentanyl 100 ml @ 2.5 mls/hr TITRATE IV Last administered on 08/08/18at 16:52; Admin Dose 4 MLS/HR; Start 08/05/18 at 12:00 Meperidine HCl (Demerol) 12.5 mg Q2H PRN IV POST OPERATIVE SHIVERING; Start 08/05/18 at 17:00 Aspirin (Aspirin) 81 mg DAILY NGT Last administered on 08/08/18at 09:18; Admin Dose 81 MG; Start 08/06/18 at 09:00 Diagnostic Test (Pha) (Accu-Chek) 1 ea Q12 XX Last administered on 08/08/18at 09:21; Admin Dose 1 EA; Start 08/06/18 at 21:00 Carvedilol (Coreg) 6.25 mg QID PO Last administered on 08/08/18at 20:50; Admin Dose 6.25 MG; Start 08/08/18 at 09:00 Sodium Bicarbonate 100 meq/Dextrose/ Sodium Chloride 1,100 ml @ 100 mls/hr Q11H IV Last administered on 08/09/18at 00:30; Admin Dose 100 MLS/HR; Start 08/08/18 at 10:00 Multivitamins (Multivitamin) 30 ml DAILY NGT ; Start 08/09/18 at 09:00 Zinc Sulfate (Zinc Sulfate) 220 mg DAILY NGT ; Start 08/09/18 at 09:00 Folic Acid (Folic Acid) 1 mg DAILY NGT ; Start 08/09/18 at 09:00 Ascorbic Acid (Vitamin C) 500 mg DAILY NGT ; Start 08/09/18 at 09:00 Famotidine (Pepcid Iv) 20 mg BID IV ; Start 08/09/18 at 09:00 Assessment/Plan Hospital Course (Demo Recall) 1. s/p V. fib cardiac arrest 2. Acute myocardial infarction 3. Status post emergent PCI of the 100% occluded LAD as well as PTCA of the diagonal 4. Diabetes 5. Respiratory failure status post intubation on the vent 6. Hypertension 7. Renal failure possibly acute on chronic 8. Likely history of congestive heart failure 9. Dyslipidemia 10. Encephalopathy: Clear anoxic brain injury on hypothermia protocol 11. Morbid obesity 12. Anemia 13. elevated LFT 14. fever, ? pneumonia vs others 15. Malnutrition, anasarca . Recommendations: Continue with aspirin and Brilinta Insulin as PER IM Vent support respiratory care as per internal medicine and pulmonary consultants. cont Coreg as tolerated Monitor renal function. f/u renal consult rec PPI . will add abx for now. CONSIDER transfusion given her AMI. Plan for left heart catheterization coronary angiogram PCI of RCA prior to discharge once more stable More than 34 minutes of critical care time was for management treatment is critically patient excluding any procedures Thank you for his referral. We will continue to follow along with you LOIS JOHNSON MD [facility] LOIS JOHNSON MD Aug 09, 2018 07:32
--- NOTE | 2018-08-09 08:08 | PN ---
DATE: 08/09/2018 SUBJECTIVE: The patient is currently hypotensive, remains on full ventilatory support. No other acu te events noted. Urinary output has been marginal. OBJECTIVE: VITAL SIGNS: Blood pressure is 100/62, pulse 108, respirations 27, temperature 99.8. HEENT: Head is normocephalic. NECK: Supple. HEART: Regular rate. LUNGS: Show diminished breath sounds at the base. ABDOMEN: Soft, nontender to palpation without rebound or guarding. EXTREMITIES: Negative for clubbing, cyanosis, no edema. DERMATOLOGIC: No rashes. MUSCULOSKELETAL: No joint effusion. NEUROLOGIC: No change in exam. MEDICATIONS: Reviewed. LABORATORY DATA: Shows sodium 143, potassium 3.8, chloride 119, BUN 26, creatinine 1.57. White coun t 4.0, hemoglobin 7.4, platelet count is 102. The patient's chest x-ray was reviewed. The patient's ABG shows pH 7.39, pCO2 of 35, base excess of -7.5. IMAGING STUDIES: Reviewed. ASSESSMENT AND PLAN: 1. Nonoliguric acute kidney injury with previously normal baseline creatinine. Etiology is secondar y to acute tubular necrosis due to cardiac arrest, ischemic hypoperfusion, possible contrast-associat ed nephropathy. The patient's renal function has declined in last 24 hours. At this point, we would continue current treatment plan, supportive care, renally dose all medicines. 2. Hypokalemia, improved. 3. Anemia. Monitor hemoglobin and hematocrit levels. 4. Mineral bone disorder, monitor calcium and phosphorus levels. 5. Mixed acid base disorder. The patient has a metabolic acidosis, anion gap with respiratory compe nsation. The patient currently is on bicarbonate drip. We will continue to monitor. Consider disco ntinuing drip in the next 24 hours. 6. Status post cardiac arrest secondary to ST elevated myocardial infarction. The patient is status post cardiac catheterization with percutaneous coronary intervention to the left anterior descending and circumflex. Continue to monitor. 7. Ventilator-dependent respiratory failure. Vent settings and ABG was reviewed. Continue to monit or. 8. History of coronary artery disease. Continue medical management. 9. Encephalopathy. Continue to monitor. 10. Hypertension. Continue current blood pressure regimen. 11. Gastrointestinal and deep vein thrombosis prophylaxis. Please note, I spent 30 minutes of critical care time with this patient. Dictated By: BHUMI JOSEPH/ALLI Conf#: [id number] DID#: [id number] CC: DANIAL TUCKER MD; CHINO ANDERSON MD; THOMAS RILEY MD;*EndCC*
[2018-08-09] MEDS: ZINC SULFATE 220 MG CAP NGT SCH (09:00)
[2018-08-09] MEDS: FOLIC ACID 1 MG TAB NGT SCH (09:00)
[2018-08-09] MEDS: DOCUSATE SODIUM 100 MG CAP PO SCH ×2 (09:00→21:18)
[2018-08-09] MEDS: MULTIVITAMINS 30 ML CUP NGT SCH (09:00)
[2018-08-09] MEDS ORDERED: FAMOTIDINE 20 MG INJ IV SCH (09:00)
[2018-08-09] MEDS: PIPER-TAZO 3.375 GM IV (PMX) 100 ML IVPB SCH ×3 (09:00→21:18)
[2018-08-09] MEDS: ASCORBIC ACID 500 MG TAB NGT SCH (09:00)
[2018-08-09] MEDS: ASPIRIN 81 MG TAB NGT SCH (09:00)
[2018-08-09] MEDS: TICAGRELOR 90 MG TABLET PO SCH ×2 (09:01→21:41)
[2018-08-09] MEDS: PANTOPRAZOLE 40 MG INJ IV SCH ×2 (09:03→18:39)
[2018-08-09] MEDS: ACCU-CHEK XX SCH ×2 (09:52→21:00)
[2018-08-09] MEDS: FENTAnyl (DRIP) 1000 mcg/100mL 100 ML IV SCH (09:55)
--- NOTE | 2018-08-09 10:40 | CONS ---
Consult Date/Type/Reason Admit Date/Time Aug 04, 2018 at 23:10 Initial Consult Date 08/05/18 Type of Consult Pulmonary Requesting Provider: HARPAL AGGARWAL MD Date/Time of Note DATE: 08/09/18 TIME: 10:38 Subjective Opens eyes off sedation. Not following commands yet.. Significant secretions. Chest x-ray shows new left-sided infiltrate. Objective Vital Signs Date Temp Pulse Resp B/P (MAP) Pulse Ox O2 O2 Flow FiO2 Time Delivery Rate 08/09/18 102 26 85/56 (66) 94 10:00 08/09/18 60 08:03 08/09/18 99.3 08:00 08/09/18 Mechanical 07:00 Ventilator Intake and Output 08/08/18 08/08/18 08/09/18 1515:00 23:00 07:00 IntakeIntake Total 576 ml 951.360 ml 1165.616 ml OutputOutput Total 280 ml 345 ml 320 ml BalanceBalance 296 ml 606.360 ml 845.616 ml Exam Young lady orally intubated on mechanical ventilation VITAL SIGNS: per chart NECK: Supple. No JVD or lymphadenopathy. CARDIAC EXAM: S1, S2. No added sounds or murmurs. CHEST: Diminished air entry bilaterally ABDOMEN: Soft, nontender. No guarding or rebound. Diminished bowel sounds EXTREMITIES: No cyanosis, clubbing edema +2 NEUROLOGIC: Unable to assess Vent Setting Ventilator Support Mode: AC, VC plus Fraction of Inspired Oxygen pe: 60 Positive End Expiratory Pressu: 5.0 Results/Medications Result Diagram: 08/09/18 0500 08/09/18 0500 Results 24 hrs Laboratory Tests Test 08/08/18 21:50 08/09/18 04:30 08/09/18 05:00 08/09/18 07:00 Bedside Glucose 124 Urine Color NIYAH Urine Clarity CLOUDY A Urine pH 5.0 Urine Specific 1.026 [place] Urine Ketones NEGATIVE Urine Nitrite NEGATIVE Urine Bilirubin NEGATIVE Urine 1+ H Urobilinogen Urine Leukocyte TRACE A Esterase Urine Microscopic 34 H RBC Urine Microscopic 16 H WBC Urine Squamous FEW Epithelial Cells Urine Hyaline FEW A Casts Urine Mucus FEW A Urine Hemoglobin NEGATIVE Urine Glucose NEGATIVE Urine Total 2+ H Protein White Blood Count 4.0 #L Red Blood Count 2.60 L Hemoglobin 7.4 #L Hematocrit 23.2 L Mean Corpuscular 89.2 Volume Mean Corpuscular 28.5 L Hemoglobin Mean Corpuscular 31.9 L Hemoglobin Concen t Red Cell 15.4 H Distribution Width Platelet Count 102 L Mean Platelet 14.4 H Volume Immature 4.100 H Granulocytes % Neutrophils % Segmented 24 L Neutrophils % (Manual) Band Neutrophils 33 H % (Manual) Lymphocytes % Lymphocytes % 26 (Manual) Reactive 1 H Lymphocytes % (Manual) Monocytes % Monocytes % 5 (Manual) Eosinophils % Eosinophils % 1 (Manual) Basophils % Basophils % 5 H (Manual) Metamyelocytes % 1 H (manual) Myelocytes % 2 H (Manual) Promyelocytes % 2 H (Manual) Nucleated Red 5 H Blood Cells % Immature 0.160 H Granulocytes # Neutrophils # Neutrophils # 1.0 L (Manual) Band Neutrophils 1.3 H # Lymphocytes 1.0 (Manual) Lymphocytes # Reactive 0.0 Lymphocytes # Monocytes # Monocytes # 0.2 L (Manual) Eosinophils # Basophils # Basophils # 0.2 H (Manual) Metamyelocytes # 0.0 Myelocytes # 0.0 Promyelocytes # 0.0 Nucleated Red Blood Cells # Platelet Estimate DECREASED Giant Platelets 21 H Polychromasia 1+ Hypochromasia 1+ Sodium Level 143 Potassium Level 3.8 Chloride Level 119 H Carbon Dioxide 16 L Level Anion Gap 8 Blood Urea 26 H Nitrogen Creatinine 1.57 H Est Glomerular 37 L Filtrat Rate mL/min Glucose Level 108 Calcium Level 7.2 L Magnesium Level 2.6 H Total Bilirubin 0.2 Direct Bilirubin 0.00 Indirect 0.2 Bilirubin Aspartate Amino 81 H Transf (AST/SGOT) Alanine 129 H Aminotransferase (ALT/SGPT) Alkaline 191 H Phosphatase Creatine Kinase 750 H Creatine Kinase 2.2 Index Creatinine Kinase 16.30 H MB (Mass) Troponin I 5.940 *H Total Protein 4.9 L Albumin 2.3 L Globulin 2.60 Albumin/Globulin 0.88 Ratio Blood Gas Blood arterial Specimen Source Arterial Blood 08/09/2018 7:02:0 Date Drawn 0 AM Arterial Blood pH 7.319 L (Temp corrected) Arterial Blood 35.6 pCO2 (Temp correct) Arterial Blood 75.9 L pO2 (Temp corrected) Arterial Blood 17.9 L HCO3 Arterial Blood -7.5 L Base Excess Arterial Blood 93.7 L Oxygen Saturation Dajuan Test ACCEPTAB Arterial Blood Right Radial Gas Puncture Site Arterial 0.3 Blood Carboxyhemo globin Arterial Blood 0.6 Methemoglobin Blood Gas A-a O2 240.6 H Differential Oxyhemoglobin 92.9 L Percent Blood Gas 37.0 Temperature Blood Gas 20.0 Respiration Rate Blood Gas Actual 31 Respiration Rate Blood Gas VENT - AC Modality FiO2 50.0 Blood Gas Tidal 5.0 Volume Blood Gas TM Notified Whom Blood Gas 08/09/2018 7:24:0 Notified Time 0 AM Lactic Acid Level 1.0 Test 08/09/18 09:52 Bedside Glucose 113 Medications Current Medications Norepinephrine 250 ml @ 1.875 mls/ hr TITRATE IV ; Start 08/04/18 at 23:15 Ticagrelor (Brilinta) 90 mg BID PO Last administered on 08/09/18 09:01; Admin Dose 90 MG; Start 08/05/18 at 09:00 Morphine Sulfate (morphine) 1 mg Q1H PRN IV PAIN Last administered on 08/05/18at 00:55; Admin Dose 1 MG; Start 08/04/18 at 23:30 Docusate Sodium (Colace) 100 mg BID PO Last administered on 08/09/18at 09:00; Admin Dose 100 MG; Start 08/05/18 at 09:00 Atorvastatin Calcium (Lipitor) 80 mg DAILY@21 PO Last administered on 08/08/18at 20:46; Admin Dose 80 MG; Start 08/05/18 at 21:00 Nitroglycerin/ Dextrose 250 ml @ 1.5 mls/hr TITRATE IV Last administered on 08/05/18 14:22; Admin Dose 72 MLS/HR; Start 08/05/18 at 01:00 Propofol 100 ml @ 2.772 mls/ hr Q12H IV Last administered on 08/09/18at 04:37; Admin Dose 11.088 MLS/HR; Start 08/05/18 at 04:00 Midazolam HCl 50 ml @ 1 mls/hr TITRATE IV Last administered on 08/05/18at 19:22; Admin Dose 8 MLS/HR; Start 08/05/18 at 07:30 Miscellaneous Information 1 ea NOTE XX ; Start 08/05/18 at 09:00 Acetaminophen (Tylenol Supp) 650 mg Q4H PRN [place] TEMP > 37C Last administered on 08/09/18at 04:37; Admin Dose 650 MG; Start 08/05/18 at 11:00 Acetaminophen (Tylenol Liquid) 650 mg Q4H PRN PO TEMP > 37C; Start 08/05/18 at 11:00 Meperidine HCl (Demerol) 25 mg Q4H PRN IV POST OPERATIVE SHIVERING Last administered on 08/05/18 16:31; Admin Dose 25 MG; Start 08/05/18 at 11:00 Eye Lubricant (Akwa Oint) 1 applic Q6 BOTH EYES Last administered on 08/09/18 05:27; Admin Dose 1 APPLIC; Start 08/05/18 at 12:00 Eye Lubricant (Artificial Tears Oph) 2 drop Q6 BOTH EYES Last administered on 08/09/18 05:27; Admin Dose 2 DROP; Start 08/05/18 at 12:00 Insulin Human Regular 100 unit/ Sodium Chloride 100 ml @ 0 mls/hr PER PROTOCOL IV ; Start 08/05/18 at 12:00 Miscellaneous Information (* Miscellaneous Pharmacy Order) Treatment of Hypoglycemia: 1.BG 51... Per protocol XX ; Start 08/05/18 at 12:00 Dextrose (D50w Syringe) 25 ml Q15M PRN IV .DECREASED GLUCOSE; Start 08/05/18 at 12:00 Dextrose (D50w Syringe) 50 ml Q15M PRN IV .DECREASED GLUCOSE; Start 08/05/18 at 12:00 Fentanyl 100 ml @ 2.5 mls/hr TITRATE IV Last administered on 08/09/18 09:55; Admin Dose 7 MLS/HR; Start 08/05/18 at 12:00 Meperidine HCl (Demerol) 12.5 mg Q2H PRN IV POST OPERATIVE SHIVERING; Start 08/05/18 at 17:00 Aspirin (Aspirin) 81 mg DAILY NGT Last administered on 08/09/18 09:00; Admin Dose 81 MG; Start 08/06/18 at 09:00 Diagnostic Test (Pha) (Accu-Chek) 1 ea Q12 XX Last administered on 08/09/18 09:52; Admin Dose 1 EA; Start 08/06/18 at 21:00 Carvedilol (Coreg) 6.25 mg QID PO Last administered on 08/08/18 20:50; Admin Dose 6.25 MG; Start 08/08/18 at 09:00 Sodium Bicarbonate 100 meq/Dextrose/ Sodium Chloride 1,100 ml @ 100 mls/hr Q11H IV Last administered on 08/09/18at 00:30; Admin Dose 100 MLS/HR; Start 08/08/18 at 10:00 Multivitamins (Multivitamin) 30 ml DAILY NGT Last administered on 08/09/18at 09:00; Admin Dose 30 ML; Start 08/09/18 at 09:00 Zinc Sulfate (Zinc Sulfate) 220 mg DAILY NGT Last administered on 08/09/18at 09:00; Admin Dose 220 MG; Start 08/09/18 at 09:00 Folic Acid (Folic Acid) 1 mg DAILY NGT Last administered on 08/09/18at 09:00; Admin Dose 1 MG; Start 08/09/18 at 09:00 Ascorbic Acid (Vitamin C) 500 mg DAILY NGT Last administered on 08/09/18at 09:00; Admin Dose 500 MG; Start 08/09/18 at 09:00 Famotidine (Pepcid Iv) 20 mg BID IV ; Start 08/09/18 at 09:00 Piperacillin Sod/ Tazobactam Sod 100 ml @ 200 mls/hr Q8 IVPB Last administered on 08/09/18at 09:00; Admin Dose 200 MLS/HR; Start 08/09/18 at 08:00 Dexmedetomidine HCl 200 mcg/ Sodium Chloride 50 ml @ 4.62 mls/hr TITRATE IV ; Start 08/09/18 at 11:30 Assessment/Plan Hospital Course (Demo Recall) IMP: 1. Ventricular Fibrillation Arrest--s/p ROSC 2/2 STEMI s/p PCI status post hypothermia protocol 2. STEMI, Status post stent x3 placement. 3. 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 HUSEYIN--likely ATN 5. Ischemic hepatopathy--2/2 arrest 6. Metabolic acidosis--2/2 arrest 7. Hypoxemic respiratory failure with likely ventilator associated pneumonia RECS: 1. Continue mechanical ventilation,, sputum cultures 2. Continue tube feeding and IV fluids as tolerated 3 continue antibiotics 4. Monitor H&H hold off on transfusion at present 5. Trial of Precedex decrease propofol and fentanyl 6. Renal recommendations Critical care time 40 minutes CHINO ANDERSON MD, [facility] Aug 09, 2018 10:40
[2018-08-09] MEDS: DEXMEDETOMIDINE HCL 200 MCG in SOD CHLORIDE 0.9% 48 ML IV SCH ×3 (11:35→22:56)
[2018-08-09] MEDS: ALBUTEROL HFA 8 GM INHALER INH SCH ×2 (13:38→20:20)
[2018-08-09] MEDS: IPRATROPIUM (HFA) 12.9 GM INHALER INH SCH ×2 (14:00→20:20)
--- NOTE | 2018-08-09 14:33 | PN ---
Date/Time of Note Date/Time of Note DATE: 08/09/18 TIME: 14:27 Assessment/Plan VTE Prophylaxis Risk score (from Nsg)>0 risk: 12 SCD applied (from Nsg): Yes Pharmacological prophylaxis: heparin Lines/Catheters IV Catheter Type (from Nrsg): Central Line Central line still needed: Yes Urinary Cath still in place: Yes Reason Cath still needed: terminal illness/intractable pain Assessment/Plan Assessment/Plan 1. Bilateral Pneumonia - seen on CXR - started on IV antibiotics - continue bronchodilators 2. CAD s/p PCI x2 - Cardiology on board and appreciate recommendations. continue on DAPT - s/p emergent Cath with successful PTCA and stenting of proximal and mid LAD, PTCA of the large first diagonal and thrombectomy of the LAD - Repeat PCI on 08/07 performed with stenting to LCx - plans for stenting of RCA prior to discharge - ECHO results noted 3. Acute hypoxic respiratory failure - exacerbated by #1 - Pulm on board for vent management 4. HUSEYIN- worsening - Nephrology on board and appreciate recommendations - secondary to ATN vs prerenal vs contrast induced nephropathy 5. Hypertension - BP stable 6. Diabetes - A1c noted 7. Transaminitis- improving - most likely secondary to hypoperfusion - continue monitoring LFTs - RUQ US noted 8. V-fib cardiac arrest secondary to STEMI - Completed hypothermia protocol and when off sedation opening eyes 9. Disposition - continue monitoring in ICU while requiring ventilator support - daily sedation holiday and SBT >30 minutes of critical care time spent with patient Result Diagram: 08/09/18 1214 08/09/18 0500 Results 24hrs Laboratory Tests Test 08/08/18 21:50 08/09/18 04:30 08/09/18 05:00 08/09/18 07:00 Bedside Glucose 124 Urine Color NIYAH Urine Clarity CLOUDY A Urine pH 5.0 Urine Specific 1.026 Eads Urine Ketones NEGATIVE Urine Nitrite NEGATIVE Urine Bilirubin NEGATIVE Urine 1+ H Urobilinogen Urine Leukocyte TRACE A Esterase Urine Microscopic 34 H RBC Urine Microscopic 16 H WBC Urine Squamous FEW Epithelial Cells Urine Hyaline FEW A Casts Urine Mucus FEW A Urine Hemoglobin NEGATIVE Urine Glucose NEGATIVE Urine Total 2+ H Protein White Blood Count 4.0 #L Red Blood Count 2.60 L Hemoglobin 7.4 #L Hematocrit 23.2 L Mean Corpuscular 89.2 Volume Mean Corpuscular 28.5 L Hemoglobin Mean Corpuscular 31.9 L Hemoglobin Concen t Red Cell 15.4 H Distribution Width Platelet Count 102 L Mean Platelet 14.4 H Volume Immature 4.100 H Granulocytes % Neutrophils % Segmented 24 L Neutrophils % (Manual) Band Neutrophils 33 H % (Manual) Lymphocytes % Lymphocytes % 26 (Manual) Reactive 1 H Lymphocytes % (Manual) Monocytes % Monocytes % 5 (Manual) Eosinophils % Eosinophils % 1 (Manual) Basophils % Basophils % 5 H (Manual) Metamyelocytes % 1 H (manual) Myelocytes % 2 H (Manual) Promyelocytes % 2 H (Manual) Nucleated Red 5 H Blood Cells % Immature 0.160 H Granulocytes # Neutrophils # Neutrophils # 1.0 L (Manual) Band Neutrophils 1.3 H # Lymphocytes 1.0 (Manual) Lymphocytes # Reactive 0.0 Lymphocytes # Monocytes # Monocytes # 0.2 L (Manual) Eosinophils # Basophils # Basophils # 0.2 H (Manual) Metamyelocytes # 0.0 Myelocytes # 0.0 Promyelocytes # 0.0 Nucleated Red Blood Cells # Platelet Estimate DECREASED Giant Platelets 21 H Polychromasia 1+ Hypochromasia 1+ Sodium Level 143 Potassium Level 3.8 Chloride Level 119 H Carbon Dioxide 16 L Level Anion Gap 8 Blood Urea 26 H Nitrogen Creatinine 1.57 H Est Glomerular 37 L Filtrat Rate mL/min Glucose Level 108 Calcium Level 7.2 L Magnesium Level 2.6 H Total Bilirubin 0.2 Direct Bilirubin 0.00 Indirect 0.2 Bilirubin Aspartate Amino 81 H Transf (AST/SGOT) Alanine 129 H Aminotransferase (ALT/SGPT) Alkaline 191 H Phosphatase Creatine Kinase 750 H Creatine Kinase 2.2 Index Creatinine Kinase 16.30 H MB (Mass) Troponin I 5.940 *H Total Protein 4.9 L Albumin 2.3 L Globulin 2.60 Albumin/Globulin 0.88 Ratio Blood Gas Blood arterial Specimen Source Arterial Blood 08/09/2018 7:02:0 Date Drawn 0 AM Arterial Blood pH 7.319 L (Temp corrected) Arterial Blood 35.6 pCO2 (Temp correct) Arterial Blood 75.9 L pO2 (Temp corrected) Arterial Blood 17.9 L HCO3 Arterial Blood -7.5 L Base Excess Arterial Blood 93.7 L Oxygen Saturation Dajuan Test ACCEPTAB Arterial Blood Right Radial Gas Puncture Site Arterial 0.3 Blood Carboxyhemo globin Arterial Blood 0.6 Methemoglobin Blood Gas A-a O2 240.6 H Differential Oxyhemoglobin 92.9 L Percent Blood Gas 37.0 Temperature Blood Gas 20.0 Respiration Rate Blood Gas Actual 31 Respiration Rate Blood Gas VENT - AC Modality FiO2 50.0 Blood Gas Tidal 5.0 Volume Blood Gas TM Notified Whom Blood Gas 08/09/2018 7:24:0 Notified Time 0 AM Lactic Acid Level 1.0 Test 08/09/18 09:52 08/09/18 12:14 Bedside Glucose 113 Hemoglobin 7.0 L Hematocrit 21.7 L Subjective 24 Hr Interval Summary Free Text/Dictation Patient remains intubated and sedated. Off sedation, not following commands but opening eyes. No acute overnight events. Noted with low grade temp. Exam/Review of Systems Exam Vitals Vital Signs Date Temp Pulse Resp B/P (MAP) Pulse Ox O2 O2 Flow FiO2 Time Delivery Rate 08/09/18 79 12:00 08/09/18 27 97 60 11:30 08/09/18 85/56 (66) 10:00 08/09/18 99.3 08:00 08/09/18 Mechanical 07:00 Ventilator Intake and Output 08/08/18 08/08/18 08/09/18 1515:00 23:00 07:00 IntakeIntake Total 576 ml 951.360 ml 1165.616 ml OutputOutput Total 280 ml 345 ml 320 ml BalanceBalance 296 ml 606.360 ml 845.616 ml Exam General: Patient is laying in bed, intubated and sedated Eyes: EOMI, pupils reactive to light, equal size Neck: Supple, nontender, midline Respiratory: Coarse breath sounds diffusely. no wheezing appreciated Cardiovascular: regular rate and rhythm, no obvious murmurs Gastrointestinal: soft, nontender, nondistended, bowel sounds heard. Ext: LE nonpitting edema, no cyanosis or clubbing Skin: No new skin lesions Results Results 24hrs Laboratory Tests Test 08/08/18 21:50 08/09/18 04:30 08/09/18 05:00 08/09/18 07:00 Bedside Glucose 124 Urine Color NIYAH Urine Clarity CLOUDY A Urine pH 5.0 Urine Specific 1.026 Eads Urine Ketones NEGATIVE Urine Nitrite NEGATIVE Urine Bilirubin NEGATIVE Urine 1+ H Urobilinogen Urine Leukocyte TRACE A Esterase Urine Microscopic 34 H RBC Urine Microscopic 16 H WBC Urine Squamous FEW Epithelial Cells Urine Hyaline FEW A Casts Urine Mucus FEW A Urine Hemoglobin NEGATIVE Urine Glucose NEGATIVE Urine Total 2+ H Protein White Blood Count 4.0 #L Red Blood Count 2.60 L Hemoglobin 7.4 #L Hematocrit 23.2 L Mean Corpuscular 89.2 Volume Mean Corpuscular 28.5 L Hemoglobin Mean Corpuscular 31.9 L Hemoglobin Concen t Red Cell 15.4 H Distribution Width Platelet Count 102 L Mean Platelet 14.4 H Volume Immature 4.100 H Granulocytes % Neutrophils % Segmented 24 L Neutrophils % (Manual) Band Neutrophils 33 H % (Manual) Lymphocytes % Lymphocytes % 26 (Manual) Reactive 1 H Lymphocytes % (Manual) Monocytes % Monocytes % 5 (Manual) Eosinophils % Eosinophils % 1 (Manual) Basophils % Basophils % 5 H (Manual) Metamyelocytes % 1 H (manual) Myelocytes % 2 H (Manual) Promyelocytes % 2 H (Manual) Nucleated Red 5 H Blood Cells % Immature 0.160 H Granulocytes # Neutrophils # Neutrophils # 1.0 L (Manual) Band Neutrophils 1.3 H # Lymphocytes 1.0 (Manual) Lymphocytes # Reactive 0.0 Lymphocytes # Monocytes # Monocytes # 0.2 L (Manual) Eosinophils # Basophils # Basophils # 0.2 H (Manual) Metamyelocytes # 0.0 Myelocytes # 0.0 Promyelocytes # 0.0 Nucleated Red Blood Cells # Platelet Estimate DECREASED Giant Platelets 21 H Polychromasia 1+ Hypochromasia 1+ Sodium Level 143 Potassium Level 3.8 Chloride Level 119 H Carbon Dioxide 16 L Level Anion Gap 8 Blood Urea 26 H Nitrogen Creatinine 1.57 H Est Glomerular 37 L Filtrat Rate mL/min Glucose Level 108 Calcium Level 7.2 L Magnesium Level 2.6 H Total Bilirubin 0.2 Direct Bilirubin 0.00 Indirect 0.2 Bilirubin Aspartate Amino 81 H Transf (AST/SGOT) Alanine 129 H Aminotransferase (ALT/SGPT) Alkaline 191 H Phosphatase Creatine Kinase 750 H Creatine Kinase 2.2 Index Creatinine Kinase 16.30 H MB (Mass) Troponin I 5.940 *H Total Protein 4.9 L Albumin 2.3 L Globulin 2.60 Albumin/Globulin 0.88 Ratio Blood Gas Blood arterial Specimen Source Arterial Blood 08/09/2018 7:02:0 Date Drawn 0 AM Arterial Blood pH 7.319 L (Temp corrected) Arterial Blood 35.6 pCO2 (Temp correct) Arterial Blood 75.9 L pO2 (Temp corrected) Arterial Blood 17.9 L HCO3 Arterial Blood -7.5 L Base Excess Arterial Blood 93.7 L Oxygen Saturation Dajuan Test ACCEPTAB Arterial Blood Right Radial Gas Puncture Site Arterial 0.3 Blood Carboxyhemo globin Arterial Blood 0.6 Methemoglobin Blood Gas A-a O2 240.6 H Differential Oxyhemoglobin 92.9 L Percent Blood Gas 37.0 Temperature Blood Gas 20.0 Respiration Rate Blood Gas Actual 31 Respiration Rate Blood Gas VENT - AC Modality FiO2 50.0 Blood Gas Tidal 5.0 Volume Blood Gas TM Notified Whom Blood Gas 08/09/2018 7:24:0 Notified Time 0 AM Lactic Acid Level 1.0 Test 08/09/18 09:52 08/09/18 12:14 Bedside Glucose 113 Hemoglobin 7.0 L Hematocrit 21.7 L Medications Medication Current Medications Norepinephrine 250 ml @ 1.875 mls/ hr TITRATE IV ; Start 08/04/18 at 23:15 Ticagrelor (Brilinta) 90 mg BID PO Last administered on 08/09/18at 09:01; Admin Dose 90 MG; Start 08/05/18 at 09:00 Morphine Sulfate (morphine) 1 mg Q1H PRN IV PAIN Last administered on 08/05/18at 00:55; Admin Dose 1 MG; Start 08/04/18 at 23:30 Docusate Sodium (Colace) 100 mg BID PO Last administered on 08/09/18at 09:00; Admin Dose 100 MG; Start 08/05/18 at 09:00 Atorvastatin Calcium (Lipitor) 80 mg DAILY@21 PO Last administered on 08/08/18at 20:46; Admin Dose 80 MG; Start 08/05/18 at 21:00 Nitroglycerin/ Dextrose 250 ml @ 1.5 mls/hr TITRATE IV Last administered on 08/05/18at 14:22; Admin Dose 72 MLS/HR; Start 08/05/18 at 01:00 Propofol 100 ml @ 2.772 mls/ hr Q12H IV Last administered on 08/09/18at 04:37; Admin Dose 11.088 MLS/HR; Start 08/05/18 at 04:00 Midazolam HCl 50 ml @ 1 mls/hr TITRATE IV Last administered on 08/05/18at 19:22; Admin Dose 8 MLS/HR; Start 08/05/18 at 07:30 Miscellaneous Information 1 ea NOTE XX ; Start 08/05/18 at 09:00 Acetaminophen (Tylenol Supp) 650 mg Q4H PRN ID TEMP > 37C Last administered on 08/09/18at 04:37; Admin Dose 650 MG; Start 08/05/18 at 11:00 Acetaminophen (Tylenol Liquid) 650 mg Q4H PRN PO TEMP > 37C; Start 08/05/18 at 11:00 Meperidine HCl (Demerol) 25 mg Q4H PRN IV POST OPERATIVE SHIVERING Last administered on 08/05/18 16:31; Admin Dose 25 MG; Start 08/05/18 at 11:00 Eye Lubricant (Akwa Oint) 1 applic Q6 BOTH EYES Last administered on 08/09/18 11:35; Admin Dose 1 APPLIC; Start 08/05/18 at 12:00 Eye Lubricant (Artificial Tears Oph) 2 drop Q6 BOTH EYES Last administered on 08/09/18 11:35; Admin Dose 2 DROP; Start 08/05/18 at 12:00 Insulin Human Regular 100 unit/ Sodium Chloride 100 ml @ 0 mls/hr PER PROTOCOL IV ; Start 08/05/18 at 12:00 Miscellaneous Information (* Miscellaneous Pharmacy Order) Treatment of Hypoglycemia: 1.BG 51... Per protocol XX ; Start 08/05/18 at 12:00 Dextrose (D50w Syringe) 25 ml Q15M PRN IV .DECREASED GLUCOSE; Start 08/05/18 at 12:00 Dextrose (D50w Syringe) 50 ml Q15M PRN IV .DECREASED GLUCOSE; Start 08/05/18 at 12:00 Fentanyl 100 ml @ 2.5 mls/hr TITRATE IV Last administered on 08/09/18at 09:55; Admin Dose 7 MLS/HR; Start 08/05/18 at 12:00 Meperidine HCl (Demerol) 12.5 mg Q2H PRN IV POST OPERATIVE SHIVERING; Start 08/05/18 at 17:00 Aspirin (Aspirin) 81 mg DAILY NGT Last administered on 08/09/18 09:00; Admin Dose 81 MG; Start 08/06/18 at 09:00 Diagnostic Test (Pha) (Accu-Chek) 1 ea Q12 XX Last administered on 3/21/19at 09:52; Admin Dose 1 EA; Start 08/06/18 at 21:00 Carvedilol (Coreg) 6.25 mg QID PO Last administered on 08/08/18 20:50; Admin Dose 6.25 MG; Start 08/08/18 at 09:00 Sodium Bicarbonate 100 meq/Dextrose/ Sodium Chloride 1,100 ml @ 100 mls/hr Q11H IV Last administered on 08/09/18 11:33; Admin Dose 100 MLS/HR; Start 08/08/18 at 10:00 Multivitamins (Multivitamin) 30 ml DAILY NGT Last administered on 08/09/18 09:00; Admin Dose 30 ML; Start 08/09/18 at 09:00 Zinc Sulfate (Zinc Sulfate) 220 mg DAILY NGT Last administered on 08/09/18 09:00; Admin Dose 220 MG; Start 08/09/18 at 09:00 Folic Acid (Folic Acid) 1 mg DAILY NGT Last administered on 08/09/18 09:00; Admin Dose 1 MG; Start 08/09/18 at 09:00 Ascorbic Acid (Vitamin C) 500 mg DAILY NGT Last administered on 08/09/18 09:00; Admin Dose 500 MG; Start 08/09/18 at 09:00 Pantoprazole (Protonix Iv) 40 mg BID@06,18 IV Last administered on 08/09/18 09:03; Admin Dose 40 MG; Start 08/09/18 at 08:24; Stop 08/09/18 at 23:59 Piperacillin Sod/ Tazobactam Sod 100 ml @ 200 mls/hr Q8 IVPB Last administered on 08/09/18 09:00; Admin Dose 200 MLS/HR; Start 08/09/18 at 08:00 Dexmedetomidine HCl 200 mcg/ Sodium Chloride 50 ml @ 4.62 mls/hr TITRATE IV Last administered on 08/09/18 11:35; Admin Dose 4.62 MLS/HR; Start 08/09/18 at 11:30 Lansoprazole (Lansoprazole Oral Susp) 30 mg BID PO ; Start 08/10/18 at 09:00 Albuterol (Ventolin Hfa) 4 puff Q6HWA RESP THERAPY INH Last administered on 08/09/18 13:38; Admin Dose 4 PUFF; Start 08/09/18 at 14:00 Ipratropium [place] (Atrovent Hfa) 4 puff Q6H RESP THERAPY INH ; Start 08/09/18 at 14:00 THOMAS RILEY MD Aug 09, 2018 14:33
[2018-08-09] MEDS ORDERED: ALBUMIN HUMAN 25% 50 ML ONE (15:18)
[2018-08-09] MEDS ORDERED: ALBUMIN HUMAN 25% 50 ML IV ONE (15:30)
[2018-08-09] MEDS: ATORVASTATIN 80 MG TAB PO SCH (21:18)
[2018-08-09] MEDS ORDERED: ALBUMIN HUMAN 25% 100 ML IV ONE (23:30)
[2018-08-10] VITALS (74 sets, daily range): BP systolic 80–116; BP diastolic 49–79; PULSE 86–105; RESP 0–36
[2018-08-10] MEDS: NORepinephrine 8MG/250 ML (PMX 250 ML IV SCH (00:41)
[2018-08-10] MEDS: IPRATROPIUM (HFA) 12.9 GM INHALER INH SCH ×4 (01:28→19:38)
[2018-08-10] MEDS: ALBUTEROL HFA 8 GM INHALER INH SCH ×4 (01:28→19:38)
[2018-08-10] MEDS ORDERED: VANCOMYCIN IV PER PHARMACY XX SCH (01:30)
[2018-08-10] MEDS ORDERED: VANCOMYCIN HCL 1.5 GM in SOD CHLORIDE 0.9% 250 ML IVPB ONE (02:00)
[2018-08-10] MEDS: FENTAnyl (DRIP) 1000 mcg/100mL 100 ML IV SCH ×2 (02:42→17:14)
[2018-08-10] MEDS: ACETAMINOPHEN 650MG/20.3ML CUP PO PRN (04:37)
[2018-08-10] MEDS: DEXMEDETOMIDINE HCL 200 MCG in SOD CHLORIDE 0.9% 48 ML IV SCH ×5 (05:23→23:18)
[2018-08-10] MEDS: ARTIFICIAL TEARS 15 ML OPH BOTH EYES SCH ×4 (05:24→23:09)
[2018-08-10] MEDS: OCULAR LUBRICANT 3.5 GM OPH OINT BOTH EYES SCH ×4 (05:24→23:09)
[2018-08-10] MEDS: PIPER-TAZO 3.375 GM IV (PMX) 100 ML IVPB SCH (05:24)
[2018-08-10] MEDS: PANTOPRAZOLE 40 MG INJ IV SCH ×2 (05:40→18:44)
--- NOTE | 2018-08-10 08:08 | PN ---
DATE: 08/10/2018 SUBJECTIVE: The patient is critically ill, currently on pressor support. The patient's urinary outp ut has been marginal. No other acute events noted. Patient remains on full ventilator support. OBJECTIVE: VITAL SIGNS: Blood pressure is 106/66, respirations 32, pulse 97, temperature 98.7. HEENT: Head is normocephalic. NECK: Supple. HEART: Regular rate. LUNGS: Show diminished breath sounds at the base. ABDOMEN: Soft, nontender to palpation without rebound or guarding. EXTREMITIES: Negative for clubbing, cyanosis. Positive edema. DERMATOLOGIC: No rashes. MUSCULOSKELETAL: No joint effusion. NEUROLOGIC: No change in exam. MEDICATIONS: The patient's medications have been reviewed. LABORATORY DATA: Shows sodium 143, potassium 3.6, chloride 112, bicarbonate 20, BUN 41, creatinine 2 .60, magnesium 2.6. White count 6.3, hemoglobin 6.7, platelet count is 83. The patient's ABG was re viewed, showed pH 7.379, pCO2 34. Patient's urinalysis was reviewed, positive hyalin casts. IMAGING: Chest x-ray on 08/09/2018 was reviewed, shows extensive consolidation. ASSESSMENT AND PLAN: This is a 38-year-old female who presents with: 1. Oliguric acute kidney injury with previously normal baseline creatinine. Etiology of acute kidne y injury is secondary to acute tubular necrosis due to sepsis, shock, contrast-associated nephropathy . The patient remains in injury phase of acute tubular necrosis as renal function continues to decli ne, creatinine increases and urinary output declines. At this point, would continue current treatmen t plan. Continue supportive care, continue pressor support, maintain MAP of 65. Continue antibiotic therapy, continue IV fluids. There is no immediate need for renal replacement therapy. We will con tinue to monitor closely. 2. Metabolic acidosis with respiratory compensation. The patient is currently on bicarbonate drip. Will continue. Monitor serial ABGs. 3. Anemia. The patient had a drop in hemoglobin to 6.7 g/dL. Consider blood transfusion. 4. Mineral bone disorder. Monitor calcium and phosphorus levels. 5. Septic shock, etiology secondary to bacteremia and pneumonia. The patient is currently on presso r support, IV fluids and antibiotic therapy. We will continue to monitor. Follow up with infectious disease. 6. Ventilator-dependent respiratory failure. Vent settings and ABG was reviewed. Continue to monit or. 7. Cardiac arrest, ST elevated myocardial infarction. The patient is status post cardiac catheteriz ation with multiple PCIs to the LAD, circumflex artery. Continue medical management. Follow up with cardiology. 8. Acute encephalopathy, etiology is toxic metabolic. 9. Gastrointestinal and deep venous thrombosis prophylaxis. Please note I spent over 30 minutes of critical care time with this patient. Dictated By: BHUMI REDDY DO NR/NTS Conf#: [id number] DID#: [id number] CC: DANIAL TUCKER MD; CHINO ANDERSON MD; THOMAS RILEY MD;*EndCC*
[2018-08-10] MEDS: ASPIRIN 81 MG TAB NGT SCH ×2 (08:24→09:43)
[2018-08-10] MEDS: ASCORBIC ACID 500 MG TAB NGT SCH (08:24)
[2018-08-10] MEDS: FOLIC ACID 1 MG TAB NGT SCH (08:25)
[2018-08-10] MEDS: MULTIVITAMINS 30 ML CUP NGT SCH (08:25)
[2018-08-10] MEDS: ZINC SULFATE 220 MG CAP NGT SCH (08:25)
[2018-08-10] MEDS: DOCUSATE SODIUM 100 MG CAP PO SCH ×2 (08:26→20:14)
[2018-08-10] MEDS: ACCU-CHEK XX SCH ×2 (08:37→20:26)
--- NOTE | 2018-08-10 08:49 | PN ---
Date/Time of Note Date/Time of Note DATE: 08/10/18 TIME: 08:48 Assessment/Plan VTE Prophylaxis Risk score (from Nsg)>0 risk: 7 SCD applied (from Nsg): Yes Pharmacological prophylaxis: other Lines/Catheters IV Catheter Type (from Nrsg): Central Line Central line still needed: Yes Urinary Cath still in place: Yes Reason Cath still needed: terminal illness/intractable pain Assessment/Plan Assessment/Plan 1. Septic shock secondary to PNA and bacteremia - Blood cultures and sputum culture results noted - ID consulted for antibiotics management - Continue current antibiotics and pressor support with goal MAP> 65 2. Bilateral Pneumonia - Pulm on board and appreciate recommendations. Will continue broad spectrum antibiotics and sputum cx showing Staph aureus - CXR results appreciated - continue bronchodilators - will need to monitor closely to ensure patient not developing ARDS 3. CAD s/p PCI x2 - Cardiology on board and appreciate recommendations. continue on DAPT - s/p emergent Cath with successful PTCA and stenting of proximal and mid LAD, PTCA of the large first diagonal and thrombectomy of the LAD - Repeat PCI on 08/07 performed with stenting to LCx - plans for stenting of RCA prior to discharge - ECHO results noted 4. Acute hypoxic respiratory failure - exacerbated by #1 - Pulm on board for vent management. On precedex but not alert enough for weaning 5. HUSEYIN- worsening - Nephrology on board and appreciate recommendations - secondary to ATN vs prerenal vs contrast induced nephropathy - will avoid nephrotoxic agents 6. Diabetes - A1c noted 7. Transaminitis- improving - most likely secondary to hypoperfusion - continue monitoring LFTs - RUQ US noted 8. V-fib cardiac arrest secondary to STEMI - Completed hypothermia protocol and when off sedation opening eyes 9. Disposition - Continue monitoring in ICU while requiring pressor and vent support - ID consultation placed for further recommendations >35 minutes of critical care time spent with patient Result Diagram: 08/10/18 0500 08/10/18 0500 Results 24hrs Laboratory Tests Test 08/09/18 09:52 08/09/18 12:14 08/09/18 21:26 08/09/18 22:36 Bedside Glucose 113 134 Hemoglobin 7.0 L 7.2 L Hematocrit 21.7 L 22.4 L Test 08/10/18 04:48 08/10/18 05:00 08/10/18 07:00 08/10/18 08:36 Lab Scanned BLOOD TRANSFUSI Report ON White Blood 6.3 # Count Red Blood Count 2.45 L Hemoglobin 6.7 *L Hematocrit 20.8 L Mean Corpuscular 84.9 Volume Mean Corpuscular 27.3 L Hemoglobin Mean Corpuscular 32.2 Hemoglobin Kenia nt Red Cell 17.2 H Distribution Width Platelet Count 83 L Mean Platelet 14.6 H Volume Immature 2.400 H Granulocytes % Neutrophils % Segmented 28 L Neutrophils % (Manual) Band Neutrophils 51 H % (Manual) Lymphocytes % Lymphocytes % 11 L (Manual) Monocytes % Monocytes % 4 (Manual) Eosinophils % Basophils % Metamyelocytes % 4 H (manual) Myelocytes % 1 H (Manual) Promyelocytes % 1 H (Manual) Nucleated Red 1 H Blood Cells % Immature 0.150 H Granulocytes # Neutrophils # Neutrophils # 2.0 (Manual) Band Neutrophils 3.2 H # Lymphocytes 0.6 L (Manual) Lymphocytes # Monocytes # Monocytes # 0.2 L (Manual) Eosinophils # Basophils # Metamyelocytes # 0.2 H Myelocytes # 0.0 Promyelocytes # 0.0 Nucleated Red Blood Cells # Platelet DECREASED Estimate Giant Platelets 1 H Polychromasia 3+ Poikilocytosis 1+ Anisocytosis 1+ Microcytosis 1+ Target Cells 1+ Sodium Level 143 Potassium Level 3.6 Chloride Level 112 H Carbon Dioxide 20 L Level Anion Gap 11 Blood Urea 41 #H Nitrogen Creatinine 2.60 #H Est Glomerular 20 L Filtrat Rate mL/min Glucose Level 137 Calcium Level 6.5 L Magnesium Level 2.7 H Total Bilirubin 0.8 Direct Bilirubin 0.40 #H Indirect 0.4 Bilirubin Aspartate Amino 55 H Transf (AST/SGOT ) Alanine 71 H Aminotransferase (ALT/SGPT) Alkaline 165 H Phosphatase B-Type 16614 H Natriuretic Peptide Total Protein 4.8 L Albumin 2.3 L Globulin 2.50 Albumin/Globulin 0.92 Ratio Blood Gas Blood arterial Specimen Source Arterial Blood 08/10/2018 7:05: Date Drawn 26 AM Arterial Blood 7.379 pH (Temp corrected) Arterial Blood 34.9 L pCO2 (Temp correct) Arterial Blood 115.6 H pO2 (Temp corrected) Arterial Blood 20.1 L HCO3 Arterial Blood -4.5 L Base Excess Arterial Blood 97.6 Oxygen Saturatio n Dajuan Test ACCEPTAB Arterial Blood Right Radial Gas Puncture Site Arterial 0.3 Blood Carboxyhem oglobin Arterial Blood 0.4 Methemoglobin Blood Gas A-a O2 201.6 H Differential Oxyhemoglobin 96.9 Percent Blood Gas 37.0 Temperature Blood Gas 20.0 Respiration Rate Blood Gas Actual 28 Respiration Rate Blood Gas VENT - AC Modality FiO2 50.0 Blood Gas Tidal 500.0 Volume Blood Gas Low 5.0 PEEP Setting Blood Gas TM Notified Whom Blood Gas 08/10/2018 7:39: Notified Time 37 AM Bedside Glucose 189 Subjective 24 Hr Interval Summary Free Text/Dictation Patient trying to open eyes but not following commands. Now on pressor support for BP control. Exam/Review of Systems Exam Vitals Vital Signs Date Temp Pulse Resp B/P (MAP) Pulse Ox O2 O2 Flow FiO2 Time Delivery Rate 08/10/18 97 32 106/66 96 Mechanical 06:00 (79) Ventilator 08/10/18 98.7 05:30 08/10/18 50 05:18 Intake and Output 08/09/18 08/09/18 08/10/18 1515:00 23:00 07:00 IntakeIntake Total 1202.052 ml 2116.92 ml 1656.170 ml OutputOutput Total 250 ml 230 ml 80 ml BalanceBalance 952.052 ml 1886.92 ml 1576.170 ml Exam General: Patient is laying in bed, intubated and sedated Eyes: EOMI, pupils reactive to light, equal size Neck: Supple, nontender, midline Respiratory: Diminished air entry diffusely. no wheezing appreciated Cardiovascular: regular rate and rhythm, no obvious murmurs Gastrointestinal: soft, nontender, nondistended, bowel sounds heard. Ext: diffuse anasarca. no clubbing or edema Skin: No new skin lesions, ecchymosis appreciated UE Results Results 24hrs Laboratory Tests Test 08/09/18 09:52 08/09/18 12:14 08/09/18 21:26 08/09/18 22:36 Bedside Glucose 113 134 Hemoglobin 7.0 L 7.2 L Hematocrit 21.7 L 22.4 L Test 08/10/18 04:48 08/10/18 05:00 08/10/18 07:00 08/10/18 08:36 Lab Scanned BLOOD TRANSFUSI Report ON White Blood 6.3 # Count Red Blood Count 2.45 L Hemoglobin 6.7 *L Hematocrit 20.8 L Mean Corpuscular 84.9 Volume Mean Corpuscular 27.3 L Hemoglobin Mean Corpuscular 32.2 Hemoglobin Kenia nt Red Cell 17.2 H Distribution Width Platelet Count 83 L Mean Platelet 14.6 H Volume Immature 2.400 H Granulocytes % Neutrophils % Segmented 28 L Neutrophils % (Manual) Band Neutrophils 51 H % (Manual) Lymphocytes % Lymphocytes % 11 L (Manual) Monocytes % Monocytes % 4 (Manual) Eosinophils % Basophils % Metamyelocytes % 4 H (manual) Myelocytes % 1 H (Manual) Promyelocytes % 1 H (Manual) Nucleated Red 1 H Blood Cells % Immature 0.150 H Granulocytes # Neutrophils # Neutrophils # 2.0 (Manual) Band Neutrophils 3.2 H # Lymphocytes 0.6 L (Manual) Lymphocytes # Monocytes # Monocytes # 0.2 L (Manual) Eosinophils # Basophils # Metamyelocytes # 0.2 H Myelocytes # 0.0 Promyelocytes # 0.0 Nucleated Red Blood Cells # Platelet DECREASED Estimate Giant Platelets 1 H Polychromasia 3+ Poikilocytosis 1+ Anisocytosis 1+ Microcytosis 1+ Target Cells 1+ Sodium Level 143 Potassium Level 3.6 Chloride Level 112 H Carbon Dioxide 20 L Level Anion Gap 11 Blood Urea 41 #H Nitrogen Creatinine 2.60 #H Est Glomerular 20 L Filtrat Rate mL/min Glucose Level 137 Calcium Level 6.5 L Magnesium Level 2.7 H Total Bilirubin 0.8 Direct Bilirubin 0.40 #H Indirect 0.4 Bilirubin Aspartate Amino 55 H Transf (AST/SGOT ) Alanine 71 H Aminotransferase (ALT/SGPT) Alkaline 165 H Phosphatase B-Type 05910 H Natriuretic Peptide Total Protein 4.8 L Albumin 2.3 L Globulin 2.50 Albumin/Globulin 0.92 Ratio Blood Gas Blood arterial Specimen Source Arterial Blood 08/10/2018 7:05: Date Drawn 26 AM Arterial Blood 7.379 pH (Temp corrected) Arterial Blood 34.9 L pCO2 (Temp correct) Arterial Blood 115.6 H pO2 (Temp corrected) Arterial Blood 20.1 L HCO3 Arterial Blood -4.5 L Base Excess Arterial Blood 97.6 Oxygen Saturatio n Dajuan Test ACCEPTAB Arterial Blood Right Radial Gas Puncture Site Arterial 0.3 Blood Carboxyhem oglobin Arterial Blood 0.4 Methemoglobin Blood Gas A-a O2 201.6 H Differential Oxyhemoglobin 96.9 Percent Blood Gas 37.0 Temperature Blood Gas 20.0 Respiration Rate Blood Gas Actual 28 Respiration Rate Blood Gas VENT - AC Modality FiO2 50.0 Blood Gas Tidal 500.0 Volume Blood Gas Low 5.0 PEEP Setting Blood Gas TM Notified Whom Blood Gas 08/10/2018 7:39: Notified Time 37 AM Bedside Glucose 189 Medications Medication Current Medications Norepinephrine 250 ml @ 1.875 mls/ hr TITRATE IV Last administered on 08/10/18 00:41; Admin Dose 5.625 MLS/HR; Start 08/04/18 at 23:15 Ticagrelor (Brilinta) 90 mg BID PO Last administered on 08/09/18 21:41; Admin Dose 90 MG; Start 08/05/18 at 09:00 Morphine Sulfate (morphine) 1 mg Q1H PRN IV PAIN Last administered on 08/05/18 00:55; Admin Dose 1 MG; Start 08/04/18 at 23:30 Docusate Sodium (Colace) 100 mg BID PO Last administered on 08/09/18 21:18; Admin Dose 100 MG; Start 08/05/18 at 09:00 Atorvastatin Calcium (Lipitor) 80 mg DAILY@21 PO Last administered on 08/09/18 21:18; Admin Dose 80 MG; Start 08/05/18 at 21:00 Nitroglycerin/ Dextrose 250 ml @ 1.5 mls/hr TITRATE IV Last administered on 08/05/18 14:22; Admin Dose 72 MLS/HR; Start 08/05/18 at 01:00 Propofol 100 ml @ 2.772 mls/ hr Q12H IV Last administered on 08/09/18 04:37; Admin Dose 11.088 MLS/HR; Start 08/05/18 at 04:00 Midazolam HCl 50 ml @ 1 mls/hr TITRATE IV Last administered on 08/05/18 19:22; Admin Dose 8 MLS/HR; Start 08/05/18 at 07:30 Miscellaneous Information 1 ea NOTE XX ; Start 08/05/18 at 09:00 Acetaminophen (Tylenol Supp) 650 mg Q4H PRN [place] TEMP > 37C Last administered on 08/09/18 04:37; Admin Dose 650 MG; Start 08/05/18 at 11:00 Acetaminophen (Tylenol Liquid) 650 mg Q4H PRN PO TEMP > 37C Last administered on 08/10/18 04:37; Admin Dose 650 MG; Start 08/05/18 at 11:00 Meperidine HCl (Demerol) 25 mg Q4H PRN IV POST OPERATIVE SHIVERING Last administered on 08/05/18 16:31; Admin Dose 25 MG; Start 08/05/18 at 11:00 Eye Lubricant (Akwa Oint) 1 applic Q6 BOTH EYES Last administered on 08/10/18 05:24; Admin Dose 1 APPLIC; Start 08/05/18 at 12:00 Eye Lubricant (Artificial Tears Oph) 2 drop Q6 BOTH EYES Last administered on 08/10/18 05:24; Admin Dose 2 DROP; Start 08/05/18 at 12:00 Insulin Human Regular 100 unit/ Sodium Chloride 100 ml @ 0 mls/hr PER PROTOCOL IV ; Start 08/05/18 at 12:00 Miscellaneous Information (* Miscellaneous Pharmacy Order) Treatment of Hypoglycemia: 1.BG 51... Per protocol XX ; Start 08/05/18 at 12:00 Dextrose (D50w Syringe) 25 ml Q15M PRN IV .DECREASED GLUCOSE; Start 08/05/18 at 12:00 Dextrose (D50w Syringe) 50 ml Q15M PRN IV .DECREASED GLUCOSE; Start 08/05/18 at 12:00 Fentanyl 100 ml @ 2.5 mls/hr TITRATE IV Last administered on 08/10/18 02:42; Admin Dose 7 MLS/HR; Start 08/05/18 at 12:00 Meperidine HCl (Demerol) 12.5 mg Q2H PRN IV POST OPERATIVE SHIVERING; Start 08/05/18 at 17:00 Aspirin (Aspirin) 81 mg DAILY NGT Last administered on 08/09/18 09:00; Admin Dose 81 MG; Start 08/06/18 at 09:00 Diagnostic Test (Pha) (Accu-Chek) 1 ea Q12 XX Last administered on 08/10/18 08:37; Admin Dose 1 EA; Start 08/06/18 at 21:00 Carvedilol (Coreg) 6.25 mg QID PO Last administered on 08/08/18 20:50; Admin Dose 6.25 MG; Start 08/08/18 at 09:00 Sodium Bicarbonate 100 meq/Dextrose/ Sodium Chloride 1,100 ml @ 100 mls/hr Q11H IV Last administered on 08/09/18 23:28; Admin Dose 100 MLS/HR; Start 08/08/18 at 10:00 Multivitamins (Multivitamin) 30 ml DAILY NGT Last administered on 08/10/18 08:25; Admin Dose 30 ML; Start 08/09/18 at 09:00 Zinc Sulfate (Zinc Sulfate) 220 mg DAILY NGT Last administered on 08/10/18 08:25; Admin Dose 220 MG; Start 08/09/18 at 09:00 Folic Acid (Folic Acid) 1 mg DAILY NGT Last administered on 08/10/18 08:25; Admin Dose 1 MG; Start 08/09/18 at 09:00 Ascorbic Acid (Vitamin C) 500 mg DAILY NGT Last administered on 08/10/18 08:24; Admin Dose 500 MG; Start 08/09/18 at 09:00 Pantoprazole (Protonix Iv) 40 mg BID@06,18 IV Last administered on 08/10/18 05:40; Admin Dose 40 MG; Start 08/09/18 at 08:24 Piperacillin Sod/ Tazobactam Sod 100 ml @ 200 mls/hr Q8 IVPB Last administered on 08/10/18 05:24; Admin Dose 200 MLS/HR; Start 08/09/18 at 08:00 Dexmedetomidine HCl 200 mcg/ Sodium Chloride 50 ml @ 4.62 mls/hr TITRATE IV Last administered on 08/10/18 05:23; Admin Dose 9.24 MLS/HR; Start 08/09/18 at 11:30 Albuterol (Ventolin Hfa) 4 puff Q6HWA RESP THERAPY INH Last administered on 08/10/18 08:23; Admin Dose 4 PUFF; Start 08/09/18 at 14:00 Ipratropium [place] (Atrovent Hfa) 4 puff Q6H RESP THERAPY INH Last administered on 08/10/18 08:23; Admin Dose 4 PUFF; Start 08/09/18 at 14:00 Vancomycin HCl (Vanco Iv Per Pharmacy) VANCOMYCIN PER PHARMACY PER PROTOCOL XX ; Start 08/10/18 at 01:30 Vancomycin HCl 1.25 gm/Sodium Chloride 250 ml @ 83.333 mls/ hr Q24H IVPB ; Start 08/11/18 at 02:00 THOMAS RILEY MD Aug 10, 2018 08:48
[2018-08-10] MEDS ORDERED: LANSOPRAZOLE ORAL SUSP 3 MG/ML (POSYG) PO SCH (09:00)
[2018-08-10] MEDS: TICAGRELOR 90 MG TABLET PO SCH ×2 (09:43→20:15)
[2018-08-10] MEDS: SODIUM BICARBONATE (IV ADD) 100 MEQ in DEXTROSE 5%-0.45% NACL 1,000 ML IV SCH ×2 (10:02→23:08)
--- NOTE | 2018-08-10 10:53 | CONS ---
Consult Date/Type/Reason Admit Date/Time Aug 04, 2018 at 23:10 Initial Consult Date 08/05/18 Type of Consult Pulmonary Requesting Provider: HARPAL AGGARWAL MD Date/Time of Note DATE: 08/10/18 TIME: 10:52 Subjective Opens eyes but not consistently following commands. Chest x-ray demonstrates worsening bilateral infiltrates moderate secretions and anasarca. Objective Vital Signs Date Temp Pulse Resp B/P (MAP) Pulse Ox O2 O2 Flow FiO2 Time Delivery Rate 08/10/18 98 31 96/63 (74) 95 10:45 08/10/18 Mechanical 10:00 Ventilator 08/10/18 50 08:00 08/10/18 98.7 08:00 Intake and Output 08/09/18 08/09/18 08/10/18 1515:00 23:00 07:00 IntakeIntake Total 1202.052 ml 2116.92 ml 1774.070 ml OutputOutput Total 250 ml 230 ml 80 ml BalanceBalance 952.052 ml 1886.92 ml 1694.070 ml Exam Young lady orally intubated on mechanical ventilation VITAL SIGNS: per chart NECK: Supple. No JVD or lymphadenopathy. CARDIAC EXAM: S1, S2. No added sounds or murmurs. CHEST: Diminished air entry bilaterally ABDOMEN: Soft, nontender. No guarding or rebound. Diminished bowel sounds EXTREMITIES: No cyanosis, clubbing edema +2 NEUROLOGIC: Unable to assess Vent Setting Ventilator Support Mode: AC Fraction of Inspired Oxygen pe: 50 Positive End Expiratory Pressu: 5.0 Results/Medications Result Diagram: 08/10/18 0500 08/10/18 0500 Results 24 hrs Laboratory Tests Test 08/09/18 12:14 08/09/18 21:26 08/09/18 22:36 08/10/18 04:48 Hemoglobin 7.0 L 7.2 L Hematocrit 21.7 L 22.4 L Bedside Glucose 134 Lab Scanned BLOOD TRANSFUSI Report ON Test 08/10/18 05:00 08/10/18 07:00 08/10/18 08:36 White Blood 6.3 # Count Red Blood Count 2.45 L Hemoglobin 6.7 *L Hematocrit 20.8 L Mean Corpuscular 84.9 Volume Mean Corpuscular 27.3 L Hemoglobin Mean Corpuscular 32.2 Hemoglobin Kenia nt Red Cell 17.2 H Distribution Width Platelet Count 83 L Mean Platelet 14.6 H Volume Immature 2.400 H Granulocytes % Neutrophils % Segmented 28 L Neutrophils % (Manual) Band Neutrophils 51 H % (Manual) Lymphocytes % Lymphocytes % 11 L (Manual) Monocytes % Monocytes % 4 (Manual) Eosinophils % Basophils % Metamyelocytes % 4 H (manual) Myelocytes % 1 H (Manual) Promyelocytes % 1 H (Manual) Nucleated Red 1 H Blood Cells % Immature 0.150 H Granulocytes # Neutrophils # Neutrophils # 2.0 (Manual) Band Neutrophils 3.2 H # Lymphocytes 0.6 L (Manual) Lymphocytes # Monocytes # Monocytes # 0.2 L (Manual) Eosinophils # Basophils # Metamyelocytes # 0.2 H Myelocytes # 0.0 Promyelocytes # 0.0 Nucleated Red Blood Cells # Platelet DECREASED Estimate Giant Platelets 1 H Polychromasia 3+ Poikilocytosis 1+ Anisocytosis 1+ Microcytosis 1+ Target Cells 1+ Sodium Level 143 Potassium Level 3.6 Chloride Level 112 H Carbon Dioxide 20 L Level Anion Gap 11 Blood Urea 41 #H Nitrogen Creatinine 2.60 #H Est Glomerular 20 L Filtrat Rate mL/min Glucose Level 137 Calcium Level 6.5 L Magnesium Level 2.7 H Total Bilirubin 0.8 Direct Bilirubin 0.40 #H Indirect 0.4 Bilirubin Aspartate Amino 55 H Transf (AST/SGOT ) Alanine 71 H Aminotransferase (ALT/SGPT) Alkaline 165 H Phosphatase B-Type 65619 H Natriuretic Peptide Total Protein 4.8 L Albumin 2.3 L Globulin 2.50 Albumin/Globulin 0.92 Ratio Blood Gas Blood arterial Specimen Source Arterial Blood 08/10/2018 7:05: Date Drawn 26 AM Arterial Blood 7.379 pH (Temp corrected) Arterial Blood 34.9 L pCO2 (Temp correct) Arterial Blood 115.6 H pO2 (Temp corrected) Arterial Blood 20.1 L HCO3 Arterial Blood -4.5 L Base Excess Arterial Blood 97.6 Oxygen Saturatio n Dajuan Test ACCEPTAB Arterial Blood Right Radial Gas Puncture Site Arterial 0.3 Blood Carboxyhem oglobin Arterial Blood 0.4 Methemoglobin Blood Gas A-a O2 201.6 H Differential Oxyhemoglobin 96.9 Percent Blood Gas 37.0 Temperature Blood Gas 20.0 Respiration Rate Blood Gas Actual 28 Respiration Rate Blood Gas VENT - AC Modality FiO2 50.0 Blood Gas Tidal 500.0 Volume Blood Gas Low 5.0 PEEP Setting Blood Gas TM Notified Whom Blood Gas 08/10/2018 7:39: Notified Time 37 AM Bedside Glucose 189 Medications Current Medications Norepinephrine 250 ml @ 1.875 mls/ hr TITRATE IV Last administered on 08/10/18 00:41; Admin Dose 5.625 MLS/HR; Start 08/04/18 at 23:15 Ticagrelor (Brilinta) 90 mg BID PO Last administered on 08/10/18 09:43; Admin Dose 90 MG; Start 08/05/18 at 09:00 Morphine Sulfate (morphine) 1 mg Q1H PRN IV PAIN Last administered on 08/05/18 00:55; Admin Dose 1 MG; Start 08/04/18 at 23:30 Docusate Sodium (Colace) 100 mg BID PO Last administered on 08/09/18 21:18; Admin Dose 100 MG; Start 08/05/18 at 09:00 Atorvastatin Calcium (Lipitor) 80 mg DAILY@21 PO Last administered on 08/09/18 21:18; Admin Dose 80 MG; Start 08/05/18 at 21:00 Nitroglycerin/ Dextrose 250 ml @ 1.5 mls/hr TITRATE IV Last administered on 08/05/18 14:22; Admin Dose 72 MLS/HR; Start 08/05/18 at 01:00 Propofol 100 ml @ 2.772 mls/ hr Q12H IV Last administered on 08/09/18 04:37; Admin Dose 11.088 MLS/HR; Start 08/05/18 at 04:00 Midazolam HCl 50 ml @ 1 mls/hr TITRATE IV Last administered on 08/05/18 19:22; Admin Dose 8 MLS/HR; Start 08/05/18 at 07:30 Miscellaneous Information 1 ea NOTE XX ; Start 08/05/18 at 09:00 Acetaminophen (Tylenol Supp) 650 mg Q4H PRN [place] TEMP > 37C Last administered on 08/09/18 04:37; Admin Dose 650 MG; Start 08/05/18 at 11:00 Acetaminophen (Tylenol Liquid) 650 mg Q4H PRN PO TEMP > 37C Last administered on 08/10/18 04:37; Admin Dose 650 MG; Start 08/05/18 at 11:00 Meperidine HCl (Demerol) 25 mg Q4H PRN IV POST OPERATIVE SHIVERING Last administered on 08/05/18 16:31; Admin Dose 25 MG; Start 08/05/18 at 11:00 Eye Lubricant (Akwa Oint) 1 applic Q6 BOTH EYES Last administered on 08/10/18 05:24; Admin Dose 1 APPLIC; Start 08/05/18 at 12:00 Eye Lubricant (Artificial Tears Oph) 2 drop Q6 BOTH EYES Last administered on 08/10/18 05:24; Admin Dose 2 DROP; Start 08/05/18 at 12:00 Insulin Human Regular 100 unit/ Sodium Chloride 100 ml @ 0 mls/hr PER PROTOCOL IV ; Start 08/05/18 at 12:00 Miscellaneous Information (* Miscellaneous Pharmacy Order) Treatment of Hypoglycemia: 1.BG 51... Per protocol XX ; Start 08/05/18 at 12:00 Dextrose (D50w Syringe) 25 ml Q15M PRN IV .DECREASED GLUCOSE; Start 08/05/18 at 12:00 Dextrose (D50w Syringe) 50 ml Q15M PRN IV .DECREASED GLUCOSE; Start 08/05/18 at 12:00 Fentanyl 100 ml @ 2.5 mls/hr TITRATE IV Last administered on 08/10/18 02:42; Admin Dose 7 MLS/HR; Start 08/05/18 at 12:00 Meperidine HCl (Demerol) 12.5 mg Q2H PRN IV POST OPERATIVE SHIVERING; Start 08/05/18 at 17:00 Aspirin (Aspirin) 81 mg DAILY NGT Last administered on 08/10/18 09:43; Admin Dose 81 MG; Start 08/06/18 at 09:00 Diagnostic Test (Pha) (Accu-Chek) 1 ea Q12 XX Last administered on 08/10/18 08:37; Admin Dose 1 EA; Start 08/06/18 at 21:00 Carvedilol (Coreg) 6.25 mg QID PO Last administered on 08/08/18 20:50; Admin Dose 6.25 MG; Start 08/08/18 at 09:00 Sodium Bicarbonate 100 meq/Dextrose/ Sodium Chloride 1,100 ml @ 100 mls/hr Q11H IV Last administered on 3/22/19at 10:02; Admin Dose 100 MLS/HR; Start 08/08/18 at 10:00 Multivitamins (Multivitamin) 30 ml DAILY NGT Last administered on 08/10/18 08:25; Admin Dose 30 ML; Start 08/09/18 at 09:00 Zinc Sulfate (Zinc Sulfate) 220 mg DAILY NGT Last administered on 08/10/18 08:25; Admin Dose 220 MG; Start 08/09/18 at 09:00 Folic Acid (Folic Acid) 1 mg DAILY NGT Last administered on 08/10/18 08:25; Admin Dose 1 MG; Start 08/09/18 at 09:00 Ascorbic Acid (Vitamin C) 500 mg DAILY NGT Last administered on 08/10/18 08:24; Admin Dose 500 MG; Start 08/09/18 at 09:00 Pantoprazole (Protonix Iv) 40 mg BID@06,18 IV Last administered on 08/10/18 05:40; Admin Dose 40 MG; Start 08/09/18 at 08:24 Piperacillin Sod/ Tazobactam Sod 100 ml @ 200 mls/hr Q8 IVPB Last administered on 08/10/18 05:24; Admin Dose 200 MLS/HR; Start 08/09/18 at 08:00 Dexmedetomidine HCl 200 mcg/ Sodium Chloride 50 ml @ 4.62 mls/hr TITRATE IV Last administered on 08/10/18 05:23; Admin Dose 9.24 MLS/HR; Start 08/09/18 at 11:30 Albuterol (Ventolin Hfa) 4 puff Q6HWA RESP THERAPY INH Last administered on 08/10/18 08:23; Admin Dose 4 PUFF; Start 08/09/18 at 14:00 Ipratropium [place] (Atrovent Hfa) 4 puff Q6H RESP THERAPY INH Last administered on 08/10/18 08:23; Admin Dose 4 PUFF; Start 08/09/18 at 14:00 Vancomycin HCl (Vanco Iv Per Pharmacy) VANCOMYCIN PER PHARMACY PER PROTOCOL XX ; Start 08/10/18 at 01:30 Vancomycin HCl 1.25 gm/Sodium Chloride 250 ml @ 83.333 mls/ hr Q24H IVPB ; Start 08/11/18 at 02:00 Assessment/Plan Hospital Course (Demo Recall) IMP: 1. Ventricular Fibrillation Arrest--s/p ROSC 2/2 STEMI s/p PCI status post hypothermia protocol. Multivessel coronary artery disease status post stent placement x3 2. STEMI, Status post stent x3 placement. 3. 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 HUSEYIN--likely ATN 5. Ischemic hepatopathy--2/2 arrest 6. Metabolic acidosis--2/2 arrest 7. Hypoxemic respiratory failure with likely ventilator associated pneumonia 8. Progressive anemia possible dilutional no evidence of active GI bleeding RECS:, 1. Continue mechanical ventilation,, sputum cultures, broaden antibiotics add vancomycin repeat sputum cultures not ready for ventilator weaning 2. Continue tube feeding and IV fluids as tolerated 3 continue tube feeding as tolerated 4. Monitor H&H hold off on transfusion at present 5. Trial of Precedex decrease propofol and fentanyl 6. Renal recommendations 7. Transfuse 1 unit packed red blood cells Critical care time 40 minutes CHINO ANDERSON MD, [facility] Aug 10, 2018 10:53
[2018-08-10] MEDS: PIPER-TAZO 2.25 GM/NS 50 ML IVPB SCH ×2 (14:37→20:28)
--- NOTE | 2018-08-10 14:43 | CONS ---
Consult Date/Type/Reason Admit Date/Time Aug 04, 2018 at 23:10 Initial Consult Date 08/05/18 Type of Consultation: cv Requesting Provider: HARPAL AGGARWAL MD Date/Time of Note DATE: 08/10/18 TIME: 14:40 Subjective Interventional cardiology follow-up progress note/critical care Subjective: Events noted discussed with the staff and physicians. d/w Patient remains intubated on the vent No V tachycardia or fibrillation. Nonresponsive nonverbal. pt with hypotension overnight and required to be on levophed drip. + secretions. pt also with small vaginal bleeding per RN no coffee ground emesis + fever events noted s/p PCI 100% occluded LAD 08/04 S/P PCI LCX/ OM Objective: General: Obese female started with intubation on the vent HEENT: NC/AT. pupils are equal. round. NECK: . no stridor. CV: RRR. systolic murmur; no gallop or rubs. PULM: no wheezing + diffuse rhonchi. GI: Obese SOFT, NT, ND, no rebound or guarding Extremity: +B/L LE edema. no clubbing. neuro: Sedated Psych: Calm now rectal: deferred As: Right femoral NO BLEEDING or hematoma EKG August 06, 2018 was personally within normal sinus rhythm. T wave inversions anterior and inferior leads ECG 08/07: NSR ST T abn c/w ant/lat ischemia Chest x-ray done August 06 shows:No evidence for active cardiopulmonary disease. ECHO personally reviewed Normal left ventricular cavity size. Normal left ventricular wall thickness. Ejection fraction is visually estimated at 55-65 %. Normal appearance of the mitral valve. Mitral valve is not well visualized. No mitral valve regurgitation is seen. Aortic valve not well visualized. No aortic regurgitation. Normal appearance of the tricuspid valve. Unable to obtain RVSP due to minimal presence of tricuspid regurgitation. No evidence of tricuspid regurgitation. Normal pericardium with no significant pericardial effusion. suboptimal study. Objective Vitals Vital Signs Date Temp Pulse Resp B/P (MAP) Pulse Ox O2 O2 Flow FiO2 Time Delivery Rate 08/10/18 91 30 94/60 (71) 95 12:30 08/10/18 98.5 Mechanical 12:00 Ventilator 08/10/18 50 08:00 Intake and Output 08/09/18 08/09/18 08/10/18 1515:00 23:00 07:00 IntakeIntake Total 1202.052 ml 2116.92 ml 1774.070 ml OutputOutput Total 250 ml 230 ml 80 ml BalanceBalance 952.052 ml 1886.92 ml 1694.070 ml Results/Medications Result Diagram: 08/10/18 0500 08/10/18 0500 Results 24 hrs Laboratory Tests Test 08/09/18 21:26 08/09/18 22:36 08/10/18 04:48 08/10/18 05:00 Bedside Glucose 134 Hemoglobin 7.2 L 6.7 *L Hematocrit 22.4 L 20.8 L Lab Scanned BLOOD TRANSFUSI Report ON White Blood 6.3 # Count Red Blood Count 2.45 L Mean Corpuscular 84.9 Volume Mean Corpuscular 27.3 L Hemoglobin Mean Corpuscular 32.2 Hemoglobin Kenia nt Red Cell 17.2 H Distribution Width Platelet Count 83 L Mean Platelet 14.6 H Volume Immature 2.400 H Granulocytes % Neutrophils % Segmented 28 L Neutrophils % (Manual) Band Neutrophils 51 H % (Manual) Lymphocytes % Lymphocytes % 11 L (Manual) Monocytes % Monocytes % 4 (Manual) Eosinophils % Basophils % Metamyelocytes % 4 H (manual) Myelocytes % 1 H (Manual) Promyelocytes % 1 H (Manual) Nucleated Red 1 H Blood Cells % Immature 0.150 H Granulocytes # Neutrophils # Neutrophils # 2.0 (Manual) Band Neutrophils 3.2 H # Lymphocytes 0.6 L (Manual) Lymphocytes # Monocytes # Monocytes # 0.2 L (Manual) Eosinophils # Basophils # Metamyelocytes # 0.2 H Myelocytes # 0.0 Promyelocytes # 0.0 Nucleated Red Blood Cells # Platelet DECREASED Estimate Giant Platelets 1 H Polychromasia 3+ Poikilocytosis 1+ Anisocytosis 1+ Microcytosis 1+ Target Cells 1+ Sodium Level 143 Potassium Level 3.6 Chloride Level 112 H Carbon Dioxide 20 L Level Anion Gap 11 Blood Urea 41 #H Nitrogen Creatinine 2.60 #H Est Glomerular 20 L Filtrat Rate mL/min Glucose Level 137 Calcium Level 6.5 L Magnesium Level 2.7 H Total Bilirubin 0.8 Direct Bilirubin 0.40 #H Indirect 0.4 Bilirubin Aspartate Amino 55 H Transf (AST/SGOT ) Alanine 71 H Aminotransferase (ALT/SGPT) Alkaline 165 H Phosphatase B-Type 01625 H Natriuretic Peptide Total Protein 4.8 L Albumin 2.3 L Globulin 2.50 Albumin/Globulin 0.92 Ratio Test 08/10/18 07:00 08/10/18 08:36 Blood Gas Blood arterial Specimen Source Arterial Blood 08/10/2018 7:05: Date Drawn 26 AM Arterial Blood 7.379 pH (Temp corrected) Arterial Blood 34.9 L pCO2 (Temp correct) Arterial Blood 115.6 H pO2 (Temp corrected) Arterial Blood 20.1 L HCO3 Arterial Blood -4.5 L Base Excess Arterial Blood 97.6 Oxygen Saturatio n Dajuan Test ACCEPTAB Arterial Blood Right Radial Gas Puncture Site Arterial 0.3 Blood Carboxyhem oglobin Arterial Blood 0.4 Methemoglobin Blood Gas A-a O2 201.6 H Differential Oxyhemoglobin 96.9 Percent Blood Gas 37.0 Temperature Blood Gas 20.0 Respiration Rate Blood Gas Actual 28 Respiration Rate Blood Gas VENT - AC Modality FiO2 50.0 Blood Gas Tidal 500.0 Volume Blood Gas Low 5.0 PEEP Setting Blood Gas TM Notified Whom Blood Gas 08/10/2018 7:39: Notified Time 37 AM Bedside Glucose 189 Medications Current Medications Norepinephrine 250 ml @ 1.875 mls/ hr TITRATE IV Last administered on 08/10/18 00:41; Admin Dose 5.625 MLS/HR; Start 08/04/18 at 23:15 Ticagrelor (Brilinta) 90 mg BID PO Last administered on 08/10/18 09:43; Admin Dose 90 MG; Start 08/05/18 at 09:00 Morphine Sulfate (morphine) 1 mg Q1H PRN IV PAIN Last administered on 08/05/18at 00:55; Admin Dose 1 MG; Start 08/04/18 at 23:30 Docusate Sodium (Colace) 100 mg BID PO Last administered on 08/09/18 21:18; Admin Dose 100 MG; Start 08/05/18 at 09:00 Atorvastatin Calcium (Lipitor) 80 mg DAILY@21 PO Last administered on 08/09/18 21:18; Admin Dose 80 MG; Start 08/05/18 at 21:00 Nitroglycerin/ Dextrose 250 ml @ 1.5 mls/hr TITRATE IV Last administered on 08/05/18at 14:22; Admin Dose 72 MLS/HR; Start 08/05/18 at 01:00 Propofol 100 ml @ 2.772 mls/ hr Q12H IV Last administered on 08/09/18 04:37; Admin Dose 11.088 MLS/HR; Start 08/05/18 at 04:00; Status Hold Midazolam HCl 50 ml @ 1 mls/hr TITRATE IV Last administered on 08/05/18 19:22; Admin Dose 8 MLS/HR; Start 08/05/18 at 07:30 Miscellaneous Information 1 ea NOTE XX ; Start 08/05/18 at 09:00 Acetaminophen (Tylenol Supp) 650 mg Q4H PRN [place] TEMP > 37C Last administered on 08/09/18 04:37; Admin Dose 650 MG; Start 08/05/18 at 11:00 Acetaminophen (Tylenol Liquid) 650 mg Q4H PRN PO TEMP > 37C Last administered on 08/10/18 04:37; Admin Dose 650 MG; Start 08/05/18 at 11:00 Meperidine HCl (Demerol) 25 mg Q4H PRN IV POST OPERATIVE SHIVERING Last administered on 08/05/18 16:31; Admin Dose 25 MG; Start 08/05/18 at 11:00 Eye Lubricant (Akwa Oint) 1 applic Q6 BOTH EYES Last administered on 08/10/18 12:31; Admin Dose 1 APPLIC; Start 08/05/18 at 12:00 Eye Lubricant (Artificial Tears Oph) 2 drop Q6 BOTH EYES Last administered on 08/10/18 12:31; Admin Dose 2 DROP; Start 08/05/18 at 12:00 Insulin Human Regular 100 unit/ Sodium Chloride 100 ml @ 0 mls/hr PER PROTOCOL IV ; Start 08/05/18 at 12:00 Miscellaneous Information (* Miscellaneous Pharmacy Order) Treatment of Hypoglycemia: 1.BG 51... Per protocol XX ; Start 08/05/18 at 12:00 Dextrose (D50w Syringe) 25 ml Q15M PRN IV .DECREASED GLUCOSE; Start 08/05/18 at 12:00 Dextrose (D50w Syringe) 50 ml Q15M PRN IV .DECREASED GLUCOSE; Start 08/05/18 at 12:00 Fentanyl 100 ml @ 2.5 mls/hr TITRATE IV Last administered on 08/10/18at 02:42; Admin Dose 7 MLS/HR; Start 08/05/18 at 12:00 Meperidine HCl (Demerol) 12.5 mg Q2H PRN IV POST OPERATIVE SHIVERING; Start 08/05/18 at 17:00 Aspirin (Aspirin) 81 mg DAILY NGT Last administered on 08/10/18 09:43; Admin Dose 81 MG; Start 08/06/18 at 09:00 Diagnostic Test (Pha) (Accu-Chek) 1 ea Q12 XX Last administered on 08/10/18 08:37; Admin Dose 1 EA; Start 08/06/18 at 21:00 Carvedilol (Coreg) 6.25 mg QID PO Last administered on 08/08/18 20:50; Admin Dose 6.25 MG; Start 08/08/18 at 09:00 Sodium Bicarbonate 100 meq/Dextrose/ Sodium Chloride 1,100 ml @ 100 mls/hr Q11H IV Last administered on 08/10/18 10:02; Admin Dose 100 MLS/HR; Start 08/08/18 at 10:00 Multivitamins (Multivitamin) 30 ml DAILY NGT Last administered on 08/10/18 08:25; Admin Dose 30 ML; Start 08/09/18 at 09:00 Zinc Sulfate (Zinc Sulfate) 220 mg DAILY NGT Last administered on 08/10/18 08:25; Admin Dose 220 MG; Start 08/09/18 at 09:00 Folic Acid (Folic Acid) 1 mg DAILY NGT Last administered on 08/10/18 08:25; Admin Dose 1 MG; Start 08/09/18 at 09:00 Ascorbic Acid (Vitamin C) 500 mg DAILY NGT Last administered on 08/10/18 08:24; Admin Dose 500 MG; Start 08/09/18 at 09:00 Pantoprazole (Protonix Iv) 40 mg BID@06,18 IV Last administered on 08/10/18 05:40; Admin Dose 40 MG; Start 08/09/18 at 08:24 Dexmedetomidine HCl 200 mcg/ Sodium Chloride 50 ml @ 4.62 mls/hr TITRATE IV Last administered on 08/10/18 11:42; Admin Dose 9.24 MLS/HR; Start 08/09/18 at 11:30 Albuterol (Ventolin Hfa) 4 puff Q6HWA RESP THERAPY INH Last administered on 08/10/18 13:51; Admin Dose 4 PUFF; Start 08/09/18 at 14:00 Ipratropium [place] (Atrovent Hfa) 4 puff Q6H RESP THERAPY INH Last administered on 08/10/18at 13:51; Admin Dose 4 PUFF; Start 08/09/18 at 14:00 Vancomycin HCl (Vanco Iv Per Pharmacy) VANCOMYCIN PER PHARMACY PER PROTOCOL XX ; Start 08/10/18 at 01:30 Vancomycin HCl 1.25 gm/Sodium Chloride 250 ml @ 83.333 mls/ hr Q36H IVPB ; Start 08/11/18 at 13:00 Piperacillin Sod/ Tazobactam Sod 50 ml @ 100 mls/hr Q8 IVPB Last administered on 08/10/18at 14:37; Admin Dose 100 MLS/HR; Start 08/10/18 at 14:00 Assessment/Plan Hospital Course (Demo Recall) 1. s/p V. fib cardiac arrest 2. Acute myocardial infarction 3. Status post emergent PCI of the 100% occluded LAD as well as PTCA of the diagonal 4. Diabetes 5. Respiratory failure status post intubation on the vent 6. Hypertension 7. Renal failure : acute on chronic 8. Likely history of congestive heart failure 9. Dyslipidemia 10. Encephalopathy: Clear anoxic brain injury on hypothermia protocol 11. Morbid obesity 12. Anemia 13. elevated LFT 14. fever, ? pneumonia vs others 15. Malnutrition, anasarca . 16. septic shock and bacteremia Recommendations: Continue with aspirin and Brilinta Insulin as PER IM Vent support respiratory care as per internal medicine and pulmonary consultants. hold coreg for low BP Monitor renal function. f/u renal consult rec PPI . ABX PER IM, Transfusion given her severe anemia and WA/ VF More than 34 minutes of critical care time was for management treatment is critically patient excluding any procedures Thank you for his referral. We will continue to follow along with you LOIS JOHNSON MD [facility] LOIS JOHNSON MD Aug 10, 2018 14:43
[2018-08-10] MEDS: ATORVASTATIN 80 MG TAB PO SCH (20:13)
[2018-08-10] MEDS ORDERED: FUROSEMIDE 40 MG INJ IV ONE (22:00)
[2018-08-11] VITALS (50 sets, daily range): BP systolic 93–126; BP diastolic 55–83; PULSE 86–100; RESP 15–36
[2018-08-11] MEDS ORDERED: VANCOMYCIN HCL 1.25 GM in SOD CHLORIDE 0.9% 250 ML IVPB SCH ×2 (02:00→13:00)
[2018-08-11] MEDS: DEXMEDETOMIDINE HCL 200 MCG in SOD CHLORIDE 0.9% 48 ML IV SCH ×6 (02:59→23:26)
[2018-08-11] MEDS: ALBUTEROL HFA 8 GM INHALER INH SCH ×4 (03:20→20:49)
[2018-08-11] MEDS: IPRATROPIUM (HFA) 12.9 GM INHALER INH SCH ×4 (03:20→20:50)
[2018-08-11] MEDS: PIPER-TAZO 2.25 GM/NS 50 ML IVPB SCH ×3 (05:39→20:08)
[2018-08-11] MEDS: ARTIFICIAL TEARS 15 ML OPH BOTH EYES SCH ×4 (05:39→23:26)
[2018-08-11] MEDS: OCULAR LUBRICANT 3.5 GM OPH OINT BOTH EYES SCH ×4 (05:39→23:26)
[2018-08-11] MEDS: FENTAnyl (DRIP) 1000 mcg/100mL 100 ML IV SCH ×2 (05:44→17:42)
[2018-08-11] MEDS ORDERED: FUROSEMIDE 40 MG INJ IV ONE (06:30)
[2018-08-11] MEDS ORDERED: FUROSEMIDE 40 MG INJ ONE (06:39)
[2018-08-11] MEDS: FOLIC ACID 1 MG TAB NGT SCH (08:27)
[2018-08-11] MEDS: MULTIVITAMINS 30 ML CUP NGT SCH (08:27)
[2018-08-11] MEDS: DOCUSATE SODIUM 100 MG CAP PO SCH ×2 (08:28→19:37)
[2018-08-11] MEDS: ASPIRIN 81 MG TAB NGT SCH (08:28)
[2018-08-11] MEDS: ZINC SULFATE 220 MG CAP NGT SCH (08:28)
[2018-08-11] MEDS: ASCORBIC ACID 500 MG TAB NGT SCH (08:28)
[2018-08-11] MEDS: ACCU-CHEK XX SCH ×2 (08:40→20:48)
[2018-08-11] MEDS: TICAGRELOR 90 MG TABLET PO SCH ×2 (08:42→20:10)
--- NOTE | 2018-08-11 08:46 | PN ---
Date/Time of Note Date/Time of Note DATE: 08/11/18 TIME: 08:46 Assessment/Plan VTE Prophylaxis Risk score (from Ns)>0 risk: 11 SCD applied (from Ns): No SCD contraindicated: other (1. Septic shock secondary to PNA and bacteremia) Pharmacological prophylaxis: other Lines/Catheters IV [facility]ter [facility]from [facility] Central Line Central line still needed: Yes Urinary Cath still in place: Yes Reason Cath still needed: terminal illness/intractable pain Assessment/Plan Assessment/Plan 1. Septic shock secondary to PNA and bacteremia - Patient with low grade temp this am but bandemia improving - Blood cultures and sputum culture results noted. Will repeat blood cultures tomorrow - ID consulted for antibiotic recommendations. - Continue current antibiotics and pressor support with goal MAP> 65 2. Bilateral Pneumonia - CXR from this am pending - Pulm on board and appreciate recommendations. Will continue current management and monitor for improvement in respiratory status - continue bronchodilators 3. CAD s/p PCI x2 - Cardiology on board and appreciate recommendations. Stressed importance of continuing DAPT given recent stent placements and high risk of restenosis - s/p emergent Cath 08/05 with successful PTCA and stenting of proximal and mid LAD, PTCA of the large first diagonal and thrombectomy of the LAD - Repeat PCI on 08/07 performed with stenting to LCx - plans for stenting of RCA prior to discharge - ECHO results noted 4. Acute hypoxic respiratory failure - exacerbated by #1 - Pulm on board for vent management. appreciate consultation 5. HUSEYIN- worsening - Nephrology on board and appreciate recommendations. Given diuretic challenge this am and if no improvement in urine output will need to initiate dialysis - secondary to septic shock, ATN vs prerenal vs contrast induced nephropathy - will avoid nephrotoxic agents 6. Diabetes - A1c noted 7. Transaminitis- improving - most likely secondary to hypoperfusion - continue monitoring LFTs - RUQ US noted 8. V-fib cardiac arrest secondary to STEMI - Completed hypothermia protocol 9. Disposition - Continue close monitoring in ICU while requiring vent management - prognosis remains guarded >35 minutes of critical care time spent with patient Result Diagram: 08/11/18 0400 08/11/18 0400 Results 24hrs Laboratory Tests Test 08/10/18 18:16 08/10/18 20:26 08/11/18 04:00 08/11/18 05:29 Hemoglobin 9.2 #L 9.0 L Hematocrit 28.0 #L 28.1 L Bedside Glucose 161 White Blood 10.1 # Count Red Blood Count 3.25 #L Mean Corpuscular 86.5 Volume Mean Corpuscular 27.7 L Hemoglobin Mean Corpuscular 32.0 Hemoglobin Kenia nt Red Cell 16.9 H Distribution Width Platelet Count 82 L Mean Platelet Volume Immature 4.900 H Granulocytes % Neutrophils % Segmented 73 Neutrophils % (Manual) Band Neutrophils 8 H % (Manual) Lymphocytes % Lymphocytes % 8 L (Manual) Monocytes % Monocytes % 6 (Manual) Eosinophils % Eosinophils % 3 (Manual) Basophils % Basophils % 1 (Manual) Metamyelocytes % 1 H (manual) Nucleated Red 2 H Blood Cells % Immature 0.490 H Granulocytes # Neutrophils # Neutrophils # 7.5 (Manual) Band Neutrophils 0.8 H # Lymphocytes 0.8 (Manual) Lymphocytes # Monocytes # Monocytes # 0.6 (Manual) Eosinophils # Basophils # Basophils # 0.1 H (Manual) Metamyelocytes # 0.1 H Nucleated Red Blood Cells # Platelet DECREASED Estimate Polychromasia 2+ Anisocytosis 1+ Sodium Level 142 Potassium Level 3.6 Chloride Level 113 H Carbon Dioxide 21 Level Anion Gap 8 Blood Urea 52 H Nitrogen Creatinine 3.83 #H Est Glomerular 13 L Filtrat Rate mL/min Glucose Level 120 Calcium Level 6.3 L Phosphorus Level 5.9 H Magnesium Level 2.8 H Total Bilirubin 0.5 Direct Bilirubin 0.20 # Indirect 0.3 Bilirubin Aspartate Amino 93 H Transf (AST/SGOT ) Alanine 66 Aminotransferase (ALT/SGPT) Alkaline 250 #H Phosphatase Total Protein 4.8 L Albumin 2.3 L Globulin 2.50 Albumin/Globulin 0.92 Ratio Lab Scanned BLOOD TRANSFUSI Report ON Test 08/11/18 07:00 08/11/18 08:39 Blood Gas Blood arterial Specimen Source Arterial Blood 08/11/2018 8:12: Date Drawn 29 AM Arterial Blood 7.364 pH (Temp corrected) Arterial Blood 35.8 pCO2 (Temp correct) Arterial Blood 104.2 H pO2 (Temp corrected) Arterial Blood 20.0 L HCO3 Arterial Blood -4.9 L Base Excess Arterial Blood 97.1 Oxygen Saturatio n Dajuan Test ACCEPTAB Arterial Blood Right Radial Gas Puncture Site Arterial 0.3 Blood Carboxyhem oglobin Arterial Blood 0.5 Methemoglobin Blood Gas A-a O2 139.8 H Differential Oxyhemoglobin 96.3 Percent Blood Gas 37.0 Temperature Blood Gas 20.0 Respiration Rate Blood Gas Actual 30 Respiration Rate Blood Gas VENT - AC Modality FiO2 40.0 Blood Gas Tidal 450.0 Volume Blood Gas Low 5.0 PEEP Setting Blood Gas DT Notified Whom Blood Gas 08/11/2018 8:31: Notified Time 43 AM Bedside Glucose 129 Subjective 24 Hr Interval Summary Free Text/Dictation Patient remains intubated and sedated. Off pressor support this am. Still with low Urine output. No acute overnight events. Exam/Review of Systems Exam Vitals Vital Signs Date Temp Pulse Resp B/P (MAP) Pulse Ox O2 O2 Flow FiO2 Time Delivery Rate 08/11/18 93 08:20 08/11/18 28 95 40 06:19 08/11/18 112/75 Mechanical 06:00 (87) Ventilator 08/11/18 99.5 04:00 Intake and Output 08/10/18 08/10/18 08/11/18 1515:00 23:00 07:00 IntakeIntake Total 1307.65 ml 1039.95 ml 875.66 ml OutputOutput Total 175 ml 75 ml BalanceBalance 1307.65 ml 864.95 ml 800.66 ml Exam General: Patient is laying in bed, intubated and sedated, Eyes: EOMI, pupils reactive to light, equal size Neck: Supple, nontender, midline Respiratory: Diminished air entry diffusely. Coarse breath sounds with expiration. no wheezing appreciated Cardiovascular: S1, S2, regular rate and rhythm, no obvious murmurs Gastrointestinal: soft, nontender, nondistended, bowel sounds heard. Ext: pitting edema lower extremities bilaterally, swelling upper extremities Skin: No new skin lesions Results Results 24hrs Laboratory Tests Test 08/10/18 18:16 08/10/18 20:26 08/11/18 04:00 08/11/18 05:29 Hemoglobin 9.2 #L 9.0 L Hematocrit 28.0 #L 28.1 L Bedside Glucose 161 White Blood 10.1 # Count Red Blood Count 3.25 #L Mean Corpuscular 86.5 Volume Mean Corpuscular 27.7 L Hemoglobin Mean Corpuscular 32.0 Hemoglobin Kenia nt Red Cell 16.9 H Distribution Width Platelet Count 82 L Mean Platelet Volume Immature 4.900 H Granulocytes % Neutrophils % Segmented 73 Neutrophils % (Manual) Band Neutrophils 8 H % (Manual) Lymphocytes % Lymphocytes % 8 L (Manual) Monocytes % Monocytes % 6 (Manual) Eosinophils % Eosinophils % 3 (Manual) Basophils % Basophils % 1 (Manual) Metamyelocytes % 1 H (manual) Nucleated Red 2 H Blood Cells % Immature 0.490 H Granulocytes # Neutrophils # Neutrophils # 7.5 (Manual) Band Neutrophils 0.8 H # Lymphocytes 0.8 (Manual) Lymphocytes # Monocytes # Monocytes # 0.6 (Manual) Eosinophils # Basophils # Basophils # 0.1 H (Manual) Metamyelocytes # 0.1 H Nucleated Red Blood Cells # Platelet DECREASED Estimate Polychromasia 2+ Anisocytosis 1+ Sodium Level 142 Potassium Level 3.6 Chloride Level 113 H Carbon Dioxide 21 Level Anion Gap 8 Blood Urea 52 H Nitrogen Creatinine 3.83 #H Est Glomerular 13 L Filtrat Rate mL/min Glucose Level 120 Calcium Level 6.3 L Phosphorus Level 5.9 H Magnesium Level 2.8 H Total Bilirubin 0.5 Direct Bilirubin 0.20 # Indirect 0.3 Bilirubin Aspartate Amino 93 H Transf (AST/SGOT ) Alanine 66 Aminotransferase (ALT/SGPT) Alkaline 250 #H Phosphatase Total Protein 4.8 L Albumin 2.3 L Globulin 2.50 Albumin/Globulin 0.92 Ratio Lab Scanned BLOOD TRANSFUSI Report ON Test 08/11/18 07:00 08/11/18 08:39 Blood Gas Blood arterial Specimen Source Arterial Blood 08/11/2018 8:12: Date Drawn 29 AM Arterial Blood 7.364 pH (Temp corrected) Arterial Blood 35.8 pCO2 (Temp correct) Arterial Blood 104.2 H pO2 (Temp corrected) Arterial Blood 20.0 L HCO3 Arterial Blood -4.9 L Base Excess Arterial Blood 97.1 Oxygen Saturatio n Dajuan Test ACCEPTAB Arterial Blood Right Radial Gas Puncture Site Arterial 0.3 Blood Carboxyhem oglobin Arterial Blood 0.5 Methemoglobin Blood Gas A-a O2 139.8 H Differential Oxyhemoglobin 96.3 Percent Blood Gas 37.0 Temperature Blood Gas 20.0 Respiration Rate Blood Gas Actual 30 Respiration Rate Blood Gas VENT - AC Modality FiO2 40.0 Blood Gas Tidal 450.0 Volume Blood Gas Low 5.0 PEEP Setting Blood Gas DT Notified Whom Blood Gas 08/11/2018 8:31: Notified Time 43 AM Bedside Glucose 129 Medications Medication Current Medications Norepinephrine 250 ml @ 1.875 mls/ hr TITRATE IV Last administered on 08/10/18 00:41; Admin Dose 5.625 MLS/HR; Start 08/04/18 at 23:15 Ticagrelor (Brilinta) 90 mg BID PO Last administered on 08/11/18 08:42; Admin Dose 90 MG; Start 08/05/18 at 09:00 Morphine Sulfate (morphine) 1 mg Q1H PRN IV PAIN Last administered on 08/05/18at 00:55; Admin Dose 1 MG; Start 08/04/18 at 23:30 Docusate Sodium (Colace) 100 mg BID PO Last administered on 08/11/18 08:28; Admin Dose 100 MG; Start 08/05/18 at 09:00 Atorvastatin Calcium (Lipitor) 80 mg DAILY@21 PO Last administered on 08/10/18at 20:13; Admin Dose 80 MG; Start 08/05/18 at 21:00 Nitroglycerin/ Dextrose 250 ml @ 1.5 mls/hr TITRATE IV Last administered on 08/05/18at 14:22; Admin Dose 72 MLS/HR; Start 08/05/18 at 01:00 Propofol 100 ml @ 2.772 mls/ hr Q12H IV Last administered on 08/09/18 04:37; Admin Dose 11.088 MLS/HR; Start 08/05/18 at 04:00; Status Hold Midazolam HCl 50 ml @ 1 mls/hr TITRATE IV Last administered on 08/05/18at 19:22; Admin Dose 8 MLS/HR; Start 08/05/18 at 07:30 Miscellaneous Information 1 ea NOTE XX ; Start 08/05/18 at 09:00 Acetaminophen (Tylenol Supp) 650 mg Q4H PRN [place] TEMP > 37C Last administered on 08/09/18at 04:37; Admin Dose 650 MG; Start 08/05/18 at 11:00 Acetaminophen (Tylenol Liquid) 650 mg Q4H PRN PO TEMP > 37C Last administered on 08/10/18at 04:37; Admin Dose 650 MG; Start 08/05/18 at 11:00 Meperidine HCl (Demerol) 25 mg Q4H PRN IV POST OPERATIVE SHIVERING Last administered on 08/05/18at 16:31; Admin Dose 25 MG; Start 08/05/18 at 11:00 Eye Lubricant (Akwa Oint) 1 applic Q6 BOTH EYES Last administered on 08/11/18 05:39; Admin Dose 1 APPLIC; Start 08/05/18 at 12:00 Eye Lubricant (Artificial Tears Oph) 2 drop Q6 BOTH EYES Last administered on 08/11/18 05:39; Admin Dose 2 DROP; Start 08/05/18 at 12:00 Insulin Human Regular 100 unit/ Sodium Chloride 100 ml @ 0 mls/hr PER PROTOCOL IV ; Start 08/05/18 at 12:00 Miscellaneous Information (* Miscellaneous Pharmacy Order) Treatment of Hypoglycemia: 1.BG 51... Per protocol XX ; Start 08/05/18 at 12:00 Dextrose (D50w Syringe) 25 ml Q15M PRN IV .DECREASED GLUCOSE; Start 08/05/18 at 12:00 Dextrose (D50w Syringe) 50 ml Q15M PRN IV .DECREASED GLUCOSE; Start 08/05/18 at 12:00 Fentanyl 100 ml @ 2.5 mls/hr TITRATE IV Last administered on 08/11/18 05:44; Admin Dose 7.5 MLS/HR; Start 08/05/18 at 12:00 Meperidine HCl (Demerol) 12.5 mg Q2H PRN IV POST OPERATIVE SHIVERING; Start 08/05/18 at 17:00 Aspirin (Aspirin) 81 mg DAILY NGT Last administered on 08/11/18 08:28; Admin Dose 81 MG; Start 08/06/18 at 09:00 Diagnostic Test (Pha) (Accu-Chek) 1 ea Q12 XX Last administered on 08/11/18 08:40; Admin Dose 1 EA; Start 08/06/18 at 21:00 Carvedilol (Coreg) 6.25 mg QID PO Last administered on 08/10/18 20:13; Admin Dose 6.25 MG; Start 08/08/18 at 09:00 Multivitamins (Multivitamin) 30 ml DAILY NGT Last administered on 08/11/18 08:27; Admin Dose 30 ML; Start 08/09/18 at 09:00 Zinc Sulfate (Zinc Sulfate) 220 mg DAILY NGT Last administered on 08/11/18 08:28; Admin Dose 220 MG; Start 08/09/18 at 09:00 Folic Acid (Folic Acid) 1 mg DAILY NGT Last administered on 08/11/18 08:27; Admin Dose 1 MG; Start 08/09/18 at 09:00 Ascorbic Acid (Vitamin C) 500 mg DAILY NGT Last administered on 08/11/18 08:28; Admin Dose 500 MG; Start 08/09/18 at 09:00 Pantoprazole (Protonix Iv) 40 mg BID@06,18 IV Last administered on 08/10/18 18:44; Admin Dose 40 MG; Start 08/09/18 at 08:24 Dexmedetomidine HCl 200 mcg/ Sodium Chloride 50 ml @ 4.62 mls/hr TITRATE IV Last administered on 08/11/18 06:59; Admin Dose 13.86 MLS/HR; Start 08/09/18 at 11:30 Albuterol (Ventolin Hfa) 4 puff Q6HWA RESP THERAPY INH Last administered on 08/11/18 03:20; Admin Dose 4 PUFF; Start 08/09/18 at 14:00 Ipratropium [place] (Atrovent Hfa) 4 puff Q6H RESP THERAPY INH Last administered on 08/11/18 03:20; Admin Dose 4 PUFF; Start 08/09/18 at 14:00 Vancomycin HCl (Vanco Iv Per Pharmacy) VANCOMYCIN PER PHARMACY PER PROTOCOL XX ; Start 08/10/18 at 01:30 Vancomycin HCl 1.25 gm/Sodium Chloride 250 ml @ 83.333 mls/ hr Q36H IVPB ; Start 08/11/18 at 13:00 Piperacillin Sod/ Tazobactam Sod 50 ml @ 100 mls/hr Q8 IVPB Last administered on 08/11/18 05:39; Admin Dose 100 MLS/HR; Start 08/10/18 at 14:00 THOMAS RILEY MD Aug 11, 2018 08:46
--- NOTE | 2018-08-11 09:03 | PN ---
DATE: 08/11/2018 SUBJECTIVE: The patient is critically ill on full ventilatory support. Overnight, the patient was g iven a course of Lasix with only approximately 12 mL of urinary output. No other events noted. No h emoptysis, hematemesis, or hematochezia. OBJECTIVE: VITAL SIGNS: Blood pressure is 112/75, respirations 30, pulse 92, temperature 99.5. HEENT: Head is normocephalic. NECK: Supple. HEART: Regular rate. LUNGS: Show diminished breath sounds at the base. Positive crackles. ABDOMEN: Soft, nontender to palpation without rebound or guarding. EXTREMITIES: Negative for clubbing, cyanosis. Positive edema. DERMATOLOGIC: No rashes. MUSCULOSKELETAL: No joint effusion. NEUROLOGIC: Limited exam, the patient is obtunded. LABORATORY DATA: Shows a sodium 142, potassium 3.6, chloride 113, BUN 52, creatinine 3.83, phosphoru s 5.9, calcium 6.3, magnesium 2.8. White count 10.1, hemoglobin 9.0, platelet count is 82. IMAGING STUDIES: Imaging studies were reviewed. The patient has extensive bilateral infiltrates. T he patient's ABG was reviewed. ASSESSMENT AND PLAN: 1. Oligoanuric acute kidney injury with previously normal baseline creatinine. Etiology of acute ki dney injury is secondary to acute tubular necrosis, due to sepsis, shock, contrast-associated nephrop athy. The patient remains in injury phase of acute tubular necrosis as renal function continues to d ecline. Urinary output has been minimal overnight. Plan at this point is to give the patient diuret ic challenge. We will give Lasix 80 mg IV x1 if the patient's urinary output does not improve and ca n be converted to nonoliguric state we will initiate hemodialysis. Otherwise, continue supportive ca re, renally dose all medicines and avoid nephrotoxins. The patient's IV fluids will be discontinued. Continue antibiotic therapy. 2. Metabolic acidosis with respiratory compensation. We will discontinue bicarbonate drip. 3. Anemia. The patient is status post blood transfusion, monitor hemoglobin and hematocrit levels. 4. Mineral bone disorder, monitor calcium and phosphorus levels. 5. Volume overload. The patient has noted lower extremity edema and pulmonary edema. The patient h as been given a high dose of diuretic therapy, if no clinical response we will initiate renal replace ment therapy. 6. Sepsis, status post shock secondary to bacteremia and pneumonia. The patient is currently off pr essor support. Continue antibiotic therapy. 7. Ventilator-dependent respiratory failure. Vent settings and ABG was reviewed. Continue to monit or. 8. Cardiac arrest, ST elevated myocardial infarction. The patient is status post cardiac catheteriz ation with PCI to LAD circumflex. Continue medical management. Follow up with cardiology. 9. Acute encephalopathy, etiology is toxic metabolic. 10. Gastrointestinal and deep vein thrombosis prophylaxis. Please note I spent over 30 minutes of critical care time with this patient. Dictated By: BHUMI REDDY DO NR/NTS Conf#: [id number] DID#: [id number] CC: THOMAS RILEY MD; DANIAL TUCKER MD; LAUREN GREWAL MD;*End*
[2018-08-11] MEDS: POTASSIUM CHLORIDE 100 ML IVPB SCH ×2 (09:42→11:52)
[2018-08-11] MEDS: PANTOPRAZOLE 40 MG INJ IV SCH (09:42)
--- NOTE | 2018-08-11 11:03 | CONS ---
Assessment/Plan Assessment/Plan Assessment/Plan (Daily) Assessment: 1. s/p V. fib cardiac arrest 2. Acute myocardial infarction 3. Status post emergent PCI of the 100% occluded LAD as well as PTCA of the diagonal 4. Diabetes 5. Respiratory failure status post intubation on the vent 6. Hypertension 7. Renal failure : acute on chronic 8. Likely history of congestive heart failure 9. Dyslipidemia 10. Encephalopathy: Clear anoxic brain injury on hypothermia protocol 11. Morbid obesity 12. Anemia 13. elevated LFT 14. fever, ? pneumonia vs others 15. Malnutrition, anasarca . 16. septic shock and bacteremia Plan: continue DAPT vent mgt monitor platelets pressors as needed dw family Consultation Date/Type/Reason Admit Date/Time Aug 04, 2018 at 23:10 Initial Consult Date 08/05/18 Type of Consult Cardiology Requesting Provider: HARPAL AGGARWAL MD Date/Time of Note DATE: 08/11/18 TIME: 11:00 24 HR Interval Summary Subjective hx not possible: pt non-verbal, pt critical Exam/Review of Systems Vital Signs Vitals Vital Signs Date Temp Pulse Resp B/P (MAP) Pulse Ox O2 O2 Flow FiO2 Time Delivery Rate 08/11/18 95 25 107/72 100 Mechanical 09:00 (84) Ventilator 08/11/18 40 08:00 08/11/18 99.1 08:00 Intake and Output 08/10/18 08/10/18 08/11/18 1515:00 23:00 07:00 IntakeIntake Total 1307.65 ml 1039.95 ml 924.16 ml OutputOutput Total 175 ml 85 ml BalanceBalance 1307.65 ml 864.95 ml 839.16 ml Exam Constitutional: non-verbal ENMT: intubated Neck: jvd Respiratory: diminished breath sounds Cardiovascular: regular rate and rhythm Gastrointestinal: soft Musculoskeletal: nl extremities to inspection Extremities: normal pulses Labs Result Diagram: 08/11/18 0400 08/11/18 0400 Results 24hrs Laboratory Tests Test 08/10/18 18:16 08/10/18 20:26 08/11/18 04:00 08/11/18 05:29 Hemoglobin 9.2 #L 9.0 L Hematocrit 28.0 #L 28.1 L Bedside Glucose 161 White Blood 10.1 # Count Red Blood Count 3.25 #L Mean Corpuscular 86.5 Volume Mean Corpuscular 27.7 L Hemoglobin Mean Corpuscular 32.0 Hemoglobin Kenia nt Red Cell 16.9 H Distribution Width Platelet Count 82 L Mean Platelet Volume Immature 4.900 H Granulocytes % Neutrophils % Segmented 73 Neutrophils % (Manual) Band Neutrophils 8 H % (Manual) Lymphocytes % Lymphocytes % 8 L (Manual) Monocytes % Monocytes % 6 (Manual) Eosinophils % Eosinophils % 3 (Manual) Basophils % Basophils % 1 (Manual) Metamyelocytes % 1 H (manual) Nucleated Red 2 H Blood Cells % Immature 0.490 H Granulocytes # Neutrophils # Neutrophils # 7.5 (Manual) Band Neutrophils 0.8 H # Lymphocytes 0.8 (Manual) Lymphocytes # Monocytes # Monocytes # 0.6 (Manual) Eosinophils # Basophils # Basophils # 0.1 H (Manual) Metamyelocytes # 0.1 H Nucleated Red Blood Cells # Platelet DECREASED Estimate Polychromasia 2+ Anisocytosis 1+ Sodium Level 142 Potassium Level 3.6 Chloride Level 113 H Carbon Dioxide 21 Level Anion Gap 8 Blood Urea 52 H Nitrogen Creatinine 3.83 #H Est Glomerular 13 L Filtrat Rate mL/min Glucose Level 120 Calcium Level 6.3 L Phosphorus Level 5.9 H Magnesium Level 2.8 H Total Bilirubin 0.5 Direct Bilirubin 0.20 # Indirect 0.3 Bilirubin Aspartate Amino 93 H Transf (AST/SGOT ) Alanine 66 Aminotransferase (ALT/SGPT) Alkaline 250 #H Phosphatase Total Protein 4.8 L Albumin 2.3 L Globulin 2.50 Albumin/Globulin 0.92 Ratio Lab Scanned BLOOD TRANSFUSI Report ON Test 08/11/18 07:00 08/11/18 08:39 Blood Gas Blood arterial Specimen Source Arterial Blood 08/11/2018 8:12: Date Drawn 29 AM Arterial Blood 7.364 pH (Temp corrected) Arterial Blood 35.8 pCO2 (Temp correct) Arterial Blood 104.2 H pO2 (Temp corrected) Arterial Blood 20.0 L HCO3 Arterial Blood -4.9 L Base Excess Arterial Blood 97.1 Oxygen Saturatio n Dajuan Test ACCEPTAB Arterial Blood Right Radial Gas Puncture Site Arterial 0.3 Blood Carboxyhem oglobin Arterial Blood 0.5 Methemoglobin Blood Gas A-a O2 139.8 H Differential Oxyhemoglobin 96.3 Percent Blood Gas 37.0 Temperature Blood Gas 20.0 Respiration Rate Blood Gas Actual 30 Respiration Rate Blood Gas VENT - AC Modality FiO2 40.0 Blood Gas Tidal 450.0 Volume Blood Gas Low 5.0 PEEP Setting Blood Gas DT Notified Whom Blood Gas 08/11/2018 8:31: Notified Time 43 AM Bedside Glucose 129 Medications Medications Current Medications Norepinephrine 250 ml @ 1.875 mls/ hr TITRATE IV Last administered on 08/10/18 00:41; Admin Dose 5.625 MLS/HR; Start 08/04/18 at 23:15 Ticagrelor (Brilinta) 90 mg BID PO Last administered on 08/11/18 08:42; Admin Dose 90 MG; Start 08/05/18 at 09:00 Morphine Sulfate (morphine) 1 mg Q1H PRN IV PAIN Last administered on 08/05/18 00:55; Admin Dose 1 MG; Start 08/04/18 at 23:30 Docusate Sodium (Colace) 100 mg BID PO Last administered on 08/11/18 08:28; Admin Dose 100 MG; Start 08/05/18 at 09:00 Atorvastatin Calcium (Lipitor) 80 mg DAILY@21 PO Last administered on 08/10/18 20:13; Admin Dose 80 MG; Start 08/05/18 at 21:00 Nitroglycerin/ Dextrose 250 ml @ 1.5 mls/hr TITRATE IV Last administered on 08/05/18 14:22; Admin Dose 72 MLS/HR; Start 08/05/18 at 01:00 Propofol 100 ml @ 2.772 mls/ hr Q12H IV Last administered on 08/09/18 04:37; Admin Dose 11.088 MLS/HR; Start 08/05/18 at 04:00; Status Hold Midazolam HCl 50 ml @ 1 mls/hr TITRATE IV Last administered on 08/05/18 19:22; Admin Dose 8 MLS/HR; Start 08/05/18 at 07:30 Miscellaneous Information 1 ea NOTE XX ; Start 08/05/18 at 09:00 Acetaminophen (Tylenol Supp) 650 mg Q4H PRN [place] TEMP > 37C Last administered on 08/09/18 04:37; Admin Dose 650 MG; Start 08/05/18 at 11:00 Acetaminophen (Tylenol Liquid) 650 mg Q4H PRN PO TEMP > 37C Last administered on 08/10/18 04:37; Admin Dose 650 MG; Start 08/05/18 at 11:00 Meperidine HCl (Demerol) 25 mg Q4H PRN IV POST OPERATIVE SHIVERING Last administered on 08/05/18 16:31; Admin Dose 25 MG; Start 08/05/18 at 11:00 Eye Lubricant (Akwa Oint) 1 applic Q6 BOTH EYES Last administered on 08/11/18 05:39; Admin Dose 1 APPLIC; Start 08/05/18 at 12:00 Eye Lubricant (Artificial Tears Oph) 2 drop Q6 BOTH EYES Last administered on 08/11/18 05:39; Admin Dose 2 DROP; Start 08/05/18 at 12:00 Insulin Human Regular 100 unit/ Sodium Chloride 100 ml @ 0 mls/hr PER PROTOCOL IV ; Start 08/05/18 at 12:00 Miscellaneous Information (* Miscellaneous Pharmacy Order) Treatment of Hypoglycemia: 1.BG 51... Per protocol XX ; Start 08/05/18 at 12:00 Dextrose (D50w Syringe) 25 ml Q15M PRN IV .DECREASED GLUCOSE; Start 08/05/18 at 12:00 Dextrose (D50w Syringe) 50 ml Q15M PRN IV .DECREASED GLUCOSE; Start 08/05/18 at 12:00 Fentanyl 100 ml @ 2.5 mls/hr TITRATE IV Last administered on 08/11/18 05:44; Admin Dose 7.5 MLS/HR; Start 08/05/18 at 12:00 Meperidine HCl (Demerol) 12.5 mg Q2H PRN IV POST OPERATIVE SHIVERING; Start 08/05/18 at 17:00 Aspirin (Aspirin) 81 mg DAILY NGT Last administered on 08/11/18 08:28; Admin Dose 81 MG; Start 08/06/18 at 09:00 Diagnostic Test (Pha) (Accu-Chek) 1 ea Q12 XX Last administered on 08/11/18 08 :40; Admin Dose 1 EA; Start 08/06/18 at 21:00 Carvedilol (Coreg) 6.25 mg QID PO Last administered on 08/10/18 20:13; Admin Dose 6.25 MG; Start 08/08/18 at 09:00 Multivitamins (Multivitamin) 30 ml DAILY NGT Last administered on 08/11/18 08:27; Admin Dose 30 ML; Start 08/09/18 at 09:00 Zinc Sulfate (Zinc Sulfate) 220 mg DAILY NGT Last administered on 08/11/18 08:28; Admin Dose 220 MG; Start 08/09/18 at 09:00 Folic Acid (Folic Acid) 1 mg DAILY NGT Last administered on 08/11/18 08:27; Admin Dose 1 MG; Start 08/09/18 at 09:00 Ascorbic Acid (Vitamin C) 500 mg DAILY NGT Last administered on 08/11/18 08:28; Admin Dose 500 MG; Start 08/09/18 at 09:00 Pantoprazole (Protonix Iv) 40 mg BID@06,18 IV Last administered on 08/11/18 09:42; Admin Dose 40 MG; Start 08/09/18 at 08:24 Dexmedetomidine HCl 200 mcg/ Sodium Chloride 50 ml @ 4.62 mls/hr TITRATE IV Last administered on 08/11/18 06:59; Admin Dose 13.86 MLS/HR; Start 08/09/18 at 11:30 Albuterol (Ventolin Hfa) 4 puff Q6HWA RESP THERAPY INH Last administered on 08/11/18 03:20; Admin Dose 4 PUFF; Start 08/09/18 at 14:00 Ipratropium [place] (Atrovent Hfa) 4 puff Q6H RESP THERAPY INH Last administered on 08/11/18 03:20; Admin Dose 4 PUFF; Start 08/09/18 at 14:00 Vancomycin HCl (Vanco Iv Per Pharmacy) VANCOMYCIN PER PHARMACY PER PROTOCOL XX ; Start 08/10/18 at 01:30 Piperacillin Sod/ Tazobactam Sod 50 ml @ 100 mls/hr Q8 IVPB Last administered on 08/11/18 05:39; Admin Dose 100 MLS/HR; Start 08/10/18 at 14:00 Potassium Chloride 100 ml @ 50 mls/hr Q2H IVPB Last administered on 08/11/18 09:42; Admin Dose 50 MLS/HR; Start 08/11/18 at 09:00; Stop 08/11/18 at 12:59 HERMES KERR MD Aug 11, 2018 11:03
--- NOTE | 2018-08-11 11:35 | CONS ---
Consult Date/Type/Reason Admit Date/Time Aug 04, 2018 at 23:10 Initial Consult Date 08/05/18 Type of Consultation: Pulm/CCM Requesting Provider: HARPAL AGGARWAL MD Date/Time of Note DATE: 08/11/18 TIME: 11:29 Subjective Sedated on the vent. High plateau pressures noted. Objective Vitals Vital Signs Date Temp Pulse Resp B/P (MAP) Pulse Ox O2 O2 Flow FiO2 Time Delivery Rate 08/11/18 94 27 112/72 99 Mechanical 11:00 (85) Ventilator 08/11/18 40 08:00 08/11/18 99.1 08:00 Intake and Output 08/10/18 08/10/18 08/11/18 1515:00 23:00 07:00 IntakeIntake Total 1307.65 ml 1039.95 ml 924.16 ml OutputOutput Total 175 ml 85 ml BalanceBalance 1307.65 ml 864.95 ml 839.16 ml Exam HEENT: Neck supple; no JVD; no LAD; + ET tube CVS: RRR, S1 and S2 CHEST: Coarse BS ABD: Soft, NT, + BS EXT: No c/c; + edema NEURO: Sedated on the vent; moves all extremities Results/Medications Result Diagram: 08/11/18 0400 08/11/18 0400 Results 24 hrs Laboratory Tests Test 08/10/18 18:16 08/10/18 20:26 08/11/18 04:00 08/11/18 05:29 Hemoglobin 9.2 #L 9.0 L Hematocrit 28.0 #L 28.1 L Bedside Glucose 161 White Blood 10.1 # Count Red Blood Count 3.25 #L Mean Corpuscular 86.5 Volume Mean Corpuscular 27.7 L Hemoglobin Mean Corpuscular 32.0 Hemoglobin Kenia nt Red Cell 16.9 H Distribution Width Platelet Count 82 L Mean Platelet Volume Immature 4.900 H Granulocytes % Neutrophils % Segmented 73 Neutrophils % (Manual) Band Neutrophils 8 H % (Manual) Lymphocytes % Lymphocytes % 8 L (Manual) Monocytes % Monocytes % 6 (Manual) Eosinophils % Eosinophils % 3 (Manual) Basophils % Basophils % 1 (Manual) Metamyelocytes % 1 H (manual) Nucleated Red 2 H Blood Cells % Immature 0.490 H Granulocytes # Neutrophils # Neutrophils # 7.5 (Manual) Band Neutrophils 0.8 H # Lymphocytes 0.8 (Manual) Lymphocytes # Monocytes # Monocytes # 0.6 (Manual) Eosinophils # Basophils # Basophils # 0.1 H (Manual) Metamyelocytes # 0.1 H Nucleated Red Blood Cells # Platelet DECREASED Estimate Polychromasia 2+ Anisocytosis 1+ Sodium Level 142 Potassium Level 3.6 Chloride Level 113 H Carbon Dioxide 21 Level Anion Gap 8 Blood Urea 52 H Nitrogen Creatinine 3.83 #H Est Glomerular 13 L Filtrat Rate mL/min Glucose Level 120 Calcium Level 6.3 L Phosphorus Level 5.9 H Magnesium Level 2.8 H Total Bilirubin 0.5 Direct Bilirubin 0.20 # Indirect 0.3 Bilirubin Aspartate Amino 93 H Transf (AST/SGOT ) Alanine 66 Aminotransferase (ALT/SGPT) Alkaline 250 #H Phosphatase Total Protein 4.8 L Albumin 2.3 L Globulin 2.50 Albumin/Globulin 0.92 Ratio Lab Scanned BLOOD TRANSFUSI Report ON Test 08/11/18 07:00 08/11/18 08:39 Blood Gas Blood arterial Specimen Source Arterial Blood 08/11/2018 8:12: Date Drawn 29 AM Arterial Blood 7.364 pH (Temp corrected) Arterial Blood 35.8 pCO2 (Temp correct) Arterial Blood 104.2 H pO2 (Temp corrected) Arterial Blood 20.0 L HCO3 Arterial Blood -4.9 L Base Excess Arterial Blood 97.1 Oxygen Saturatio n Dajuan Test ACCEPTAB Arterial Blood Right Radial Gas Puncture Site Arterial 0.3 Blood Carboxyhem oglobin Arterial Blood 0.5 Methemoglobin Blood Gas A-a O2 139.8 H Differential Oxyhemoglobin 96.3 Percent Blood Gas 37.0 Temperature Blood Gas 20.0 Respiration Rate Blood Gas Actual 30 Respiration Rate Blood Gas VENT - AC Modality FiO2 40.0 Blood Gas Tidal 450.0 Volume Blood Gas Low 5.0 PEEP Setting Blood Gas DT Notified Whom Blood Gas 08/11/2018 8:31: Notified Time 43 AM Bedside Glucose 129 Medications Current Medications Norepinephrine 250 ml @ 1.875 mls/ hr TITRATE IV Last administered on 08/10/18at 00:41; Admin Dose 5.625 MLS/HR; Start 08/04/18 at 23:15 Ticagrelor (Brilinta) 90 mg BID PO Last administered on 08/11/18at 08:42; Admin Dose 90 MG; Start 08/05/18 at 09:00 Morphine Sulfate (morphine) 1 mg Q1H PRN IV PAIN Last administered on 08/05/18 00:55; Admin Dose 1 MG; Start 08/04/18 at 23:30 Docusate Sodium (Colace) 100 mg BID PO Last administered on 08/11/18 08:28; Admin Dose 100 MG; Start 08/05/18 at 09:00 Atorvastatin Calcium (Lipitor) 80 mg DAILY@21 PO Last administered on 08/10/18 20:13; Admin Dose 80 MG; Start 08/05/18 at 21:00 Nitroglycerin/ Dextrose 250 ml @ 1.5 mls/hr TITRATE IV Last administered on 08/05/18 14:22; Admin Dose 72 MLS/HR; Start 08/05/18 at 01:00 Propofol 100 ml @ 2.772 mls/ hr Q12H IV Last administered on 08/09/18 04:37; Admin Dose 11.088 MLS/HR; Start 08/05/18 at 04:00; Status Hold Midazolam HCl 50 ml @ 1 mls/hr TITRATE IV Last administered on 08/05/18 19:22; Admin Dose 8 MLS/HR; Start 08/05/18 at 07:30 Miscellaneous Information 1 ea NOTE XX ; Start 08/05/18 at 09:00 Acetaminophen (Tylenol Supp) 650 mg Q4H PRN [place] TEMP > 37C Last administered on 08/09/18 04:37; Admin Dose 650 MG; Start 08/05/18 at 11:00 Acetaminophen (Tylenol Liquid) 650 mg Q4H PRN PO TEMP > 37C Last administered on 08/10/18 04:37; Admin Dose 650 MG; Start 08/05/18 at 11:00 Meperidine HCl (Demerol) 25 mg Q4H PRN IV POST OPERATIVE SHIVERING Last administered on 08/05/18 16:31; Admin Dose 25 MG; Start 08/05/18 at 11:00 Eye Lubricant (Akwa Oint) 1 applic Q6 BOTH EYES Last administered on 08/11/18 05:39; Admin Dose 1 APPLIC; Start 08/05/18 at 12:00 Eye Lubricant (Artificial Tears Oph) 2 drop Q6 BOTH EYES Last administered on 08/11/18 05:39; Admin Dose 2 DROP; Start 08/05/18 at 12:00 Insulin Human Regular 100 unit/ Sodium Chloride 100 ml @ 0 mls/hr PER PROTOCOL IV ; Start 08/05/18 at 12:00 Miscellaneous Information (* Miscellaneous Pharmacy Order) Treatment of Hypoglycemia: 1.BG 51... Per protocol XX ; Start 08/05/18 at 12:00 Dextrose (D50w Syringe) 25 ml Q15M PRN IV .DECREASED GLUCOSE; Start 08/05/18 at 12:00 Dextrose (D50w Syringe) 50 ml Q15M PRN IV .DECREASED GLUCOSE; Start 08/05/18 at 12:00 Fentanyl 100 ml @ 2.5 mls/hr TITRATE IV Last administered on 08/11/18at 05:44; Admin Dose 7.5 MLS/HR; Start 08/05/18 at 12:00 Meperidine HCl (Demerol) 12.5 mg Q2H PRN IV POST OPERATIVE SHIVERING; Start 08/05/18 at 17:00 Aspirin (Aspirin) 81 mg DAILY NGT Last administered on 08/11/18 08:28; Admin Dose 81 MG; Start 08/06/18 at 09:00 Diagnostic Test (Pha) (Accu-Chek) 1 ea Q12 XX Last administered on 08/11/18 08:40; Admin Dose 1 EA; Start 08/06/18 at 21:00 Carvedilol (Coreg) 6.25 mg QID PO Last administered on 08/10/18 20:13; Admin Dose 6.25 MG; Start 08/08/18 at 09:00 Multivitamins (Multivitamin) 30 ml DAILY NGT Last administered on 08/11/18 08:27; Admin Dose 30 ML; Start 08/09/18 at 09:00 Zinc Sulfate (Zinc Sulfate) 220 mg DAILY NGT Last administered on 08/11/18 08:28; Admin Dose 220 MG; Start 08/09/18 at 09:00 Folic Acid (Folic Acid) 1 mg DAILY NGT Last administered on 08/11/18 08:27; Admin Dose 1 MG; Start 08/09/18 at 09:00 Ascorbic Acid (Vitamin C) 500 mg DAILY NGT Last administered on 08/11/18 08:28; Admin Dose 500 MG; Start 08/09/18 at 09:00 Pantoprazole (Protonix Iv) 40 mg BID@06,18 IV Last administered on 08/11/18 09 :42; Admin Dose 40 MG; Start 08/09/18 at 08:24 Dexmedetomidine HCl 200 mcg/ Sodium Chloride 50 ml @ 4.62 mls/hr TITRATE IV Last administered on 08/11/18 06:59; Admin Dose 13.86 MLS/HR; Start 08/09/18 at 11:30 Albuterol (Ventolin Hfa) 4 puff Q6HWA RESP THERAPY INH Last administered on 08/11/18 03:20; Admin Dose 4 PUFF; Start 08/09/18 at 14:00 Ipratropium [place] (Atrovent Hfa) 4 puff Q6H RESP THERAPY INH Last administered on 08/11/18 03:20; Admin Dose 4 PUFF; Start 08/09/18 at 14:00 Vancomycin HCl (Vanco Iv Per Pharmacy) VANCOMYCIN PER PHARMACY PER PROTOCOL XX ; Start 08/10/18 at 01:30 Piperacillin Sod/ Tazobactam Sod 50 ml @ 100 mls/hr Q8 IVPB Last administered on 08/11/18 05:39; Admin Dose 100 MLS/HR; Start 08/10/18 at 14:00 Potassium Chloride 100 ml @ 50 mls/hr Q2H IVPB Last administered on 08/11/18 09:42; Admin Dose 50 MLS/HR; Start 08/11/18 at 09:00; Stop 08/11/18 at 12:59 Assessment/Plan Assessment/Plan (Daily) IMP: 1. Ventricular Fibrillation Arrest--s/p ROSC 2/2 STEMI s/p PCI status post hypothermia protocol. Multivessel coronary artery disease status post stent placement x3 2. STEMI, Status post stent x3 placement. 3. 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 Hypoxemic respiratory failure/ARDS 5. HUSEYIN--likely ATN 6. Ischemic hepatopathy--2/2 arrest 7. Metabolic acidosis--2/2 arrest 8. Anemia 9 Thrombocytopenia RECS: 1. Neuro evaluation 2. Consider EEG 3. Vent support--lower Vt to 350 to prevent ventilator-induced lung injury in face of ARDS physiology 4. Increase PEEP; lower FiO2 5. Continue Abx 6. PICC line 40 min cc time Case d/w family and LA SANTANA MD Aug 11, 2018 11:35
[2018-08-11] MEDS: ACETAMINOPHEN 650MG/20.3ML CUP PO PRN (11:55)
[2018-08-11] MEDS ORDERED: LIDOCAINE 1% (MPF) 5 ML VIAL SC ONE ×2 (12:00→12:30)
[2018-08-11] MEDS: LANSOPRAZOLE 30 MG CAP PEG SCH (18:37)
[2018-08-11] MEDS: ATORVASTATIN 80 MG TAB PO SCH (20:07)
[2018-08-12] VITALS (48 sets, daily range): BP systolic 107–150; BP diastolic 44–98; PULSE 82–95; RESP 8–39
[2018-08-12] MEDS: DEXMEDETOMIDINE HCL 200 MCG in SOD CHLORIDE 0.9% 48 ML IV SCH ×6 (02:15→23:49)
[2018-08-12] MEDS: IPRATROPIUM (HFA) 12.9 GM INHALER INH SCH ×4 (02:58→19:37)
[2018-08-12] MEDS: LANSOPRAZOLE 30 MG CAP PEG SCH ×2 (05:24→17:08)
[2018-08-12] MEDS: OCULAR LUBRICANT 3.5 GM OPH OINT BOTH EYES SCH ×4 (05:24→23:49)
[2018-08-12] MEDS: PIPER-TAZO 2.25 GM/NS 50 ML IVPB SCH ×3 (05:24→20:22)
[2018-08-12] MEDS: ARTIFICIAL TEARS 15 ML OPH BOTH EYES SCH ×4 (05:24→23:49)
[2018-08-12] MEDS: FENTAnyl (DRIP) 1000 mcg/100mL 100 ML IV SCH (06:16)
[2018-08-12] MEDS: MULTIVITAMINS 30 ML CUP NGT SCH (08:06)
[2018-08-12] MEDS: DOCUSATE SODIUM 100 MG CAP PO SCH ×2 (08:06→20:12)
[2018-08-12] MEDS: ASCORBIC ACID 500 MG TAB NGT SCH (08:06)
[2018-08-12] MEDS: FOLIC ACID 1 MG TAB NGT SCH (08:06)
[2018-08-12] MEDS: ASPIRIN 81 MG TAB NGT SCH (08:07)
[2018-08-12] MEDS: TICAGRELOR 90 MG TABLET PO SCH ×2 (08:08→20:13)
[2018-08-12] MEDS: ZINC SULFATE 220 MG CAP NGT SCH (08:08)
[2018-08-12] MEDS: ACCU-CHEK XX SCH ×2 (08:09→20:29)
[2018-08-12] MEDS: ALBUTEROL HFA 8 GM INHALER INH SCH ×3 (08:21→19:37)
--- NOTE | 2018-08-12 09:03 | PN ---
DATE: 08/12/2018 SUBJECTIVE: The patient is critically ill, on full ventilatory support. The patient remains anuric, only 80 mL of urinary output overnight. No other events noted. OBJECTIVE: VITAL SIGNS: Blood pressure is 107/69, respirations 23, pulse 89, temperature 99.2. HEENT: Head is normocephalic. NECK: Supple. HEART: Regular rate. LUNGS: Show diminished breath sounds at the base. ABDOMEN: Soft, nontender to palpation without rebound or guarding. EXTREMITIES: Negative for clubbing, cyanosis. Positive edema. DERMATOLOGIC: No rashes. MUSCULOSKELETAL: No joint effusion. NEUROLOGIC: No change in exam. MEDICATIONS: The patient's medications have been reviewed. LABORATORY DATA: Shows sodium 142, potassium 4.7, chloride 112, bicarbonate 19, BUN 66, creatinine 4 .77. The patient's calcium is 7.2, phosphorus 8.4, magnesium 2.0. White count 15.5, hemoglobin 9.3, platelet count is 52. The patient's ABG was reviewed. Cultures have been reviewed. IMAGING STUDIES: Have been reviewed. ASSESSMENT AND PLAN: 1. Oligoanuric acute kidney injury with previously normal baseline creatinine. Etiology of acute ki dney injury secondary to acute tubular necrosis due to sepsis, shock, contrast associated nephropathy . The patient remains in injury phase of acute tubular necrosis as renal function continues to decli ne. I spoke with the patient's family yesterday and they have agreed on hemodialysis. Plan to start dialysis today once a Devan catheter has been placed by vascular surgeon, Dr. Wilson. Anticipa te daily dialysis for solute clearance and volume removal. 2. Mixed acid base disorder. The patient has metabolic acidosis and respiratory acidosis. The devika ent's ABG was reviewed. PCO2 levels are inappropriately elevated for level of acidemia. Plan is for hemodialysis. The patient will be dialyzed on a 40 bicarbonate bath. Will continue to monitor. 3. Anemia. Monitor hemoglobin and hematocrit levels. 4. Mineral bone disorder. Monitor calcium and phosphorus levels. The patient is hyperphosphatemic. Anticipate dialysis for solute clearance. 5. Volume overload. The patient will have hemodialysis with goal ultrafiltration approximately 1 to 2 liters. 6. Sepsis, status post shock secondary to pneumonia bacteremia. Continue current antibiotic regimen . 7. Ventilator dependent respiratory failure. Vent settings and ABG was reviewed. Continue to monit or. 8. Cardiac arrest secondary to ST elevated myocardial infarction. The patient is status post cardia c catheterization with PCI. Continue medical management. Follow up with cardiology. 9. Acute encephalopathy, etiology is toxic metabolic. 10. GI and DVT prophylaxis. Please note I spent over 30 minutes of critical care time with this patient. Dictated By: BHUMI REDDY DO NR/NTS Conf#: [id number] DID#: [id number] CC: LAUREN GREWAL MD; DANIAL TUCKER MD;*EndCC*
[2018-08-12] MEDS ORDERED: VANCOMYCIN 1 GM 250 ML IVPB SCH (10:00)
--- NOTE | 2018-08-12 10:40 | CONS ---
Consult Date/Type/Reason Admit Date/Time Aug 04, 2018 at 23:10 Initial Consult Date 08/05/18 Type of Consultation: Pulm/CCM Requesting Provider: HARPAL AGGARWAL MD Date/Time of Note DATE: 08/12/18 TIME: 10:34 Subjective No events. Remains sedated on the vent; though not following commands with low- level sedation. Objective Vitals Vital Signs Date Temp Pulse Resp B/P (MAP) Pulse Ox O2 O2 Flow FiO2 Time Delivery Rate 08/12/18 88 08:34 08/12/18 98.5 32 116/74 94 Mechanical 08:00 (88) Ventilator 08/12/18 40 08:00 Intake and Output 08/11/18 08/11/18 08/12/18 1515:00 23:00 07:00 IntakeIntake Total 630.88 ml 570.88 ml 603.02 ml OutputOutput Total 150 ml 60 ml 85 ml BalanceBalance 480.88 ml 510.88 ml 518.02 ml Exam HEENT: Neck supple; no JVD; no LAD; + ET tube CVS: RRR, S1 and S2 CHEST: Coarse BS ABD: Soft, NT, + BS EXT: No c/c; + edema NEURO: Sedated on the vent; moves all extremities Results/Medications Result Diagram: 08/12/18 0310 08/12/18 0310 Results 24 hrs Laboratory Tests Test 08/11/18 11:26 08/11/18 20:13 08/12/18 03:10 08/12/18 05:00 Blood Gas Blood arterial Blood arterial Specimen Source Arterial Blood 08/11/2018 1:10: 08/12/2018 4:30: Date Drawn 30 PM 10 AM Arterial Blood 7.319 L 7.274 *L pH (Temp corrected) Arterial Blood 40.9 44.2 pCO2 (Temp correct) Arterial Blood 90.4 93.6 pO2 (Temp corrected) Arterial Blood 20.6 L 20.0 L HCO3 Arterial Blood -5.2 L -6.5 L Base Excess Arterial Blood 96.1 96.4 Oxygen Saturatio n Dajuan Test ACCEPTAB ACCEPTAB Arterial Blood Right Radial Right Radial Gas Puncture Site Arterial 0.3 0 Blood Carboxyhem oglobin Arterial Blood 0.4 0.4 Methemoglobin Blood Gas A-a O2 147.8 H 140.8 H Differential Oxyhemoglobin 95.4 96.0 Percent Blood Gas 37.0 37.0 Temperature Blood Gas 32.0 32.0 Respiration Rate Blood Gas Actual 33 32 Respiration Rate Blood Gas VENT - AC VENT - AC Modality FiO2 40.0 40.0 Blood Gas Tidal 350.0 350.0 Volume Blood Gas Low 8.0 8.0 PEEP Setting Blood Gas Zhang ARTEAGA RN Critical Value Read Back Blood Gas RDIX MA Notified Whom Blood Gas 08/11/2018 1:26: 08/12/2018 5:07: Notified Time 46 PM 06 AM Bedside Glucose 89 White Blood 15.5 #H Count Red Blood Count 3.36 L Hemoglobin 9.3 L Hematocrit 29.8 L Mean Corpuscular 88.7 Volume Mean Corpuscular 27.7 L Hemoglobin Mean Corpuscular 31.2 L Hemoglobin Kenia nt Red Cell 17.4 H Distribution Width Platelet Count 52 #L Mean Platelet Volume Immature 4.500 H Granulocytes % Neutrophils % 82.3 H Lymphocytes % 6.8 L Monocytes % 4.5 Eosinophils % 1.3 Basophils % 0.6 Nucleated Red 0.5 H Blood Cells % Immature 0.700 H Granulocytes # Neutrophils # 12.7 H Lymphocytes # 1.1 Monocytes # 0.7 Eosinophils # 0.2 Basophils # 0.1 Nucleated Red 0.1 H Blood Cells # Sodium Level 142 Potassium Level 4.7 Chloride Level 112 H Carbon Dioxide 19 L Level Anion Gap 11 Blood Urea 66 H Nitrogen Creatinine 4.77 H Est Glomerular 10 L Filtrat Rate mL/min Glucose Level 75 # Lactic Acid 0.8 Level Calcium Level 7.2 L Phosphorus Level 8.4 #H Magnesium Level 3.0 H Random 13.7 Vancomycin Level Test 08/12/18 08:05 08/12/18 10:00 Bedside Glucose 100 Hepatitis B Pending Surface Antigen Hepatitis B Core Pending Total Antibody Hepatitis C Pending Antibody Medications Current Medications Norepinephrine 250 ml @ 1.875 mls/ hr TITRATE IV Last administered on 08/10/18at 00:41; Admin Dose 5.625 MLS/HR; Start 08/04/18 at 23:15 Ticagrelor (Brilinta) 90 mg BID PO Last administered on 08/12/18at 08:08; Admin Dose 90 MG; Start 08/05/18 at 09:00 Morphine Sulfate (morphine) 1 mg Q1H PRN IV PAIN Last administered on 08/05/18 00:55; Admin Dose 1 MG; Start 08/04/18 at 23:30 Docusate Sodium (Colace) 100 mg BID PO Last administered on 08/12/18 08:06; Admin Dose 100 MG; Start 08/05/18 at 09:00 Atorvastatin Calcium (Lipitor) 80 mg DAILY@21 PO Last administered on 08/11/18 20:07; Admin Dose 80 MG; Start 08/05/18 at 21:00 Nitroglycerin/ Dextrose 250 ml @ 1.5 mls/hr TITRATE IV Last administered on 08/05/18 14:22; Admin Dose 72 MLS/HR; Start 08/05/18 at 01:00 Propofol 100 ml @ 2.772 mls/ hr Q12H IV Last administered on 08/09/18 04:37; Admin Dose 11.088 MLS/HR; Start 08/05/18 at 04:00; Status Hold Midazolam HCl 50 ml @ 1 mls/hr TITRATE IV Last administered on 08/05/18 19:22; Admin Dose 8 MLS/HR; Start 08/05/18 at 07:30 Miscellaneous Information 1 ea NOTE XX ; Start 08/05/18 at 09:00 Acetaminophen (Tylenol Supp) 650 mg Q4H PRN [place] TEMP > 37C Last administered on 08/09/18 04:37; Admin Dose 650 MG; Start 08/05/18 at 11:00 Acetaminophen (Tylenol Liquid) 650 mg Q4H PRN PO TEMP > 37C Last administered on 08/11/18 11:55; Admin Dose 650 MG; Start 08/05/18 at 11:00 Meperidine HCl (Demerol) 25 mg Q4H PRN IV POST OPERATIVE SHIVERING Last administered on 08/05/18 16:31; Admin Dose 25 MG; Start 08/05/18 at 11:00 Eye Lubricant (Akwa Oint) 1 applic Q6 BOTH EYES Last administered on 08/12/18 05:24; Admin Dose 1 APPLIC; Start 08/05/18 at 12:00 Eye Lubricant (Artificial Tears Oph) 2 drop Q6 BOTH EYES Last administered on 08/12/18 05:24; Admin Dose 2 DROP; Start 08/05/18 at 12:00 Insulin Human Regular 100 unit/ Sodium Chloride 100 ml @ 0 mls/hr PER PROTOCOL IV ; Start 08/05/18 at 12:00 Miscellaneous Information (* Miscellaneous Pharmacy Order) Treatment of Hypoglycemia: 1.BG 51... Per protocol XX ; Start 08/05/18 at 12:00 Dextrose (D50w Syringe) 25 ml Q15M PRN IV .DECREASED GLUCOSE; Start 08/05/18 at 12:00 Dextrose (D50w Syringe) 50 ml Q15M PRN IV .DECREASED GLUCOSE; Start 08/05/18 at 12:00 Fentanyl 100 ml @ 2.5 mls/hr TITRATE IV Last administered on 08/12/18 06:16; Admin Dose 7.5 MLS/HR; Start 08/05/18 at 12:00 Meperidine HCl (Demerol) 12.5 mg Q2H PRN IV POST OPERATIVE SHIVERING; Start 08/05/18 at 17:00 Aspirin (Aspirin) 81 mg DAILY NGT Last administered on 08/12/18 08:07; Admin Dose 81 MG; Start 08/06/18 at 09:00 Diagnostic Test (Pha) (Accu-Chek) 1 ea Q12 XX Last administered on 08/11/18 08:40; Admin Dose 1 EA; Start 08/06/18 at 21:00 Carvedilol (Coreg) 6.25 mg QID PO Last administered on 08/12/18 08:08; Admin Dose 6.25 MG; Start 08/08/18 at 09:00 Multivitamins (Multivitamin) 30 ml DAILY NGT Last administered on 08/12/18 08:06; Admin Dose 30 ML; Start 08/09/18 at 09:00 Zinc Sulfate (Zinc Sulfate) 220 mg DAILY NGT Last administered on 08/12/18 08:08; Admin Dose 220 MG; Start 08/09/18 at 09:00 Folic Acid (Folic Acid) 1 mg DAILY NGT Last administered on 08/12/18 08:06; Admin Dose 1 MG; Start 08/09/18 at 09:00 Ascorbic Acid (Vitamin C) 500 mg DAILY NGT Last administered on 08/12/18 08:06; Admin Dose 500 MG; Start 08/09/18 at 09:00 Dexmedetomidine HCl 200 mcg/ Sodium Chloride 50 ml @ 4.62 mls/hr TITRATE IV Last administered on 08/12/18at 09:47; Admin Dose 9.24 MLS/HR; Start 08/09/18 at 11:30 Albuterol (Ventolin Hfa) 4 puff Q6HWA RESP THERAPY INH Last administered on 08/12/18 08:21; Admin Dose 4 PUFF; Start 08/09/18 at 14:00 Ipratropium [place] (Atrovent Hfa) 4 puff Q6H RESP THERAPY INH Last administered on 08/12/18at 08:21; Admin Dose 4 PUFF; Start 08/09/18 at 14:00 Vancomycin HCl (Vanco Iv Per Pharmacy) VANCOMYCIN PER PHARMACY PER PROTOCOL XX ; Start 08/10/18 at 01:30 Piperacillin Sod/ Tazobactam Sod 50 ml @ 100 mls/hr Q8 IVPB Last administered on 08/12/18at 05:24; Admin Dose 100 MLS/HR; Start 08/10/18 at 14:00 IV Flush (NS 10 ml) 10 ml PRN PRN IV IV PROTOCOL; Start 08/11/18 at 16:30 Lansoprazole (Prevacid) 30 mg 0600,1800 PEG Last administered on 08/12/18at 05:24; Admin Dose 30 MG; Start 08/11/18 at 18:28 Vancomycin HCl 250 ml @ 125 mls/hr 1000 IVPB Last administered on 08/12/18at 10:13; Admin Dose 125 MLS/HR; Start 08/12/18 at 10:00; Stop 08/12/18 at 19:00 Assessment/Plan Assessment/Plan (Daily) IMP: 1. Ventricular Fibrillation Arrest--s/p ROSC 2/2 STEMI s/p PCI status post hypothermia protocol. Multivessel coronary artery disease status post stent placement x3 2. STEMI, Status post stent x3 placement. 3. 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 Hypoxemic respiratory failure/ARDS 5. HUSEYIN--likely ATN 6. Ischemic hepatopathy--2/2 arrest 7. Metabolic acidosis--2/2 arrest 8. Anemia 9 Thrombocytopenia RECS: 1. Neuro evaluation 2. Consider EEG 3. Allow for permissive hypercapnia given poor lung/chest wall compliance (Pplat ~ 38). 4. Continue PEEP 8 cm H20 5. Continue Abx 6. PICC line placed; CVC removed. 40 min cc time Case d/w RT and LA SANTANA MD Aug 12, 2018 10:40
--- NOTE | 2018-08-12 11:03 | PN ---
Date/Time of Note Date/Time of Note DATE: 08/12/18 TIME: 11:01 Assessment/Plan VTE Prophylaxis Risk score (from Nsg)>0 risk: 16 SCD applied (from Nsg): Yes Pharmacological prophylaxis: other Lines/Catheters IV Catheter Type (from Nrsg): PICC Line Central line still needed: Yes Urinary Cath still in place: Yes Reason Cath still needed: urinary retention Assessment/Plan Assessment/Plan 1. Acute toxic/metabolic encephalopathy - Neurology consultation placed and CT head ordered - EEG ordered as well given patient remains obtunded even off sedation - monitor for improvement in neurological status 2. Septic shock secondary to PNA and bacteremia - WBC elevated this am - Blood cultures and sputum culture results noted. Will repeat blood cultures today. Repeat sputum results pending - ID consulted for antibiotic recommendations. - Continue current antibiotics and pressor support with goal MAP> 65 3. Bilateral Pneumonia - CXR from this am pending - Pulm on board and appreciate recommendations. Will continue current management and monitor for improvement in respiratory status - continue bronchodilators 4. CAD s/p PCI x2 - Cardiology on board and appreciate recommendations. Stressed importance of continuing DAPT given recent stent placements and high risk of restenosis - s/p emergent Cath 08/05 with successful PTCA and stenting of proximal and mid LAD, PTCA of the large first diagonal and thrombectomy of the LAD - Repeat PCI on 08/07 performed with stenting to LCx - plans for stenting of RCA prior to discharge - ECHO results noted 5. Acute hypoxic respiratory failure - exacerbated by #1 - Pulm on board for vent management. appreciate consultation 6. HUSEYIN- worsening - Nephrology on board and appreciate recommendations. Discussed initiating HD with family who are agreeable. Devan to be placed and will start HD for solute and volume removal - secondary to septic shock, ATN vs prerenal vs contrast induced nephropathy - will avoid nephrotoxic agents 7. Diabetes - A1c noted 8. Transaminitis- improving - most likely secondary to hypoperfusion - continue monitoring LFTs - RUQ US noted 9. V-fib cardiac arrest secondary to STEMI - Completed hypothermia protocol - unknown how long patient was down for in the field 10. Disposition - Continue close monitoring in ICU while requiring vent management. Plans to initiate HD today once Devan placed - prognosis remains guarded >30 minutes of critical care time spent with patient and family at bedside Result Diagram: 08/12/18 0310 08/12/18 0310 Results 24hrs Laboratory Tests Test 08/11/18 11:26 08/11/18 20:13 08/12/18 03:10 08/12/18 05:00 Blood Gas Blood arterial Blood arterial Specimen Source Arterial Blood 08/11/2018 1:10: 08/12/2018 4:30: Date Drawn 30 PM 10 AM Arterial Blood 7.319 L 7.274 *L pH (Temp corrected) Arterial Blood 40.9 44.2 pCO2 (Temp correct) Arterial Blood 90.4 93.6 pO2 (Temp corrected) Arterial Blood 20.6 L 20.0 L HCO3 Arterial Blood -5.2 L -6.5 L Base Excess Arterial Blood 96.1 96.4 Oxygen Saturatio n Dajuan Test ACCEPTAB ACCEPTAB Arterial Blood Right Radial Right Radial Gas Puncture Site Arterial 0.3 0 Blood Carboxyhem oglobin Arterial Blood 0.4 0.4 Methemoglobin Blood Gas A-a O2 147.8 H 140.8 H Differential Oxyhemoglobin 95.4 96.0 Percent Blood Gas 37.0 37.0 Temperature Blood Gas 32.0 32.0 Respiration Rate Blood Gas Actual 33 32 Respiration Rate Blood Gas VENT - AC VENT - AC Modality FiO2 40.0 40.0 Blood Gas Tidal 350.0 350.0 Volume Blood Gas Low 8.0 8.0 PEEP Setting Blood Gas Zhang ARTEAGA RN Critical Value Read Back Blood Gas ROCKY MAYA Notified Whom Blood Gas 08/11/2018 1:26: 08/12/2018 5:07: Notified Time 46 PM 06 AM Bedside Glucose 89 White Blood 15.5 #H Count Red Blood Count 3.36 L Hemoglobin 9.3 L Hematocrit 29.8 L Mean Corpuscular 88.7 Volume Mean Corpuscular 27.7 L Hemoglobin Mean Corpuscular 31.2 L Hemoglobin Kenia nt Red Cell 17.4 H Distribution Width Platelet Count 52 #L Mean Platelet Volume Immature 4.500 H Granulocytes % Neutrophils % 82.3 H Lymphocytes % 6.8 L Monocytes % 4.5 Eosinophils % 1.3 Basophils % 0.6 Nucleated Red 0.5 H Blood Cells % Immature 0.700 H Granulocytes # Neutrophils # 12.7 H Lymphocytes # 1.1 Monocytes # 0.7 Eosinophils # 0.2 Basophils # 0.1 Nucleated Red 0.1 H Blood Cells # Sodium Level 142 Potassium Level 4.7 Chloride Level 112 H Carbon Dioxide 19 L Level Anion Gap 11 Blood Urea 66 H Nitrogen Creatinine 4.77 H Est Glomerular 10 L Filtrat Rate mL/min Glucose Level 75 # Lactic Acid 0.8 Level Calcium Level 7.2 L Phosphorus Level 8.4 #H Magnesium Level 3.0 H Random 13.7 Vancomycin Level Test 08/12/18 08:05 08/12/18 10:00 Bedside Glucose 100 Hepatitis B Pending Surface Antigen Hepatitis B Core Pending Total Antibody Hepatitis C Pending Antibody Subjective 24 Hr Interval Summary Free Text/Dictation Patient remains intubated and sedated. Discussed plan of care with father and daughter at bedside. No acute overnight events. Exam/Review of Systems Exam Vitals Vital Signs Date Temp Pulse Resp B/P (MAP) Pulse Ox O2 O2 Flow FiO2 Time Delivery Rate 08/12/18 88 08:34 08/12/18 98.5 32 116/74 94 Mechanical 08:00 (88) Ventilator 08/12/18 40 08:00 Intake and Output 08/11/18 08/11/18 08/12/18 1515:00 23:00 07:00 IntakeIntake Total 630.88 ml 570.88 ml 603.02 ml OutputOutput Total 150 ml 60 ml 85 ml BalanceBalance 480.88 ml 510.88 ml 518.02 ml Exam General: Patient is laying in bed, intubated and sedated, off sedation still not following commands Eyes: EOMI, pupils reactive to light, equal size Neck: Supple Respiratory: Diminished air entry diffusely. Coarse breath sounds. no wheezing appreciated Cardiovascular: S1, S2, regular rate and rhythm, no obvious murmurs Gastrointestinal: soft, nontender, nondistended, bowel sounds heard. Ext: pitting edema lower extremities bilaterally, swelling upper extremities Skin: No new skin lesions Results Results 24hrs Laboratory Tests Test 08/11/18 11:26 08/11/18 20:13 08/12/18 03:10 08/12/18 05:00 Blood Gas Blood arterial Blood arterial Specimen Source Arterial Blood 08/11/2018 1:10: 08/12/2018 4:30: Date Drawn 30 PM 10 AM Arterial Blood 7.319 L 7.274 *L pH (Temp corrected) Arterial Blood 40.9 44.2 pCO2 (Temp correct) Arterial Blood 90.4 93.6 pO2 (Temp corrected) Arterial Blood 20.6 L 20.0 L HCO3 Arterial Blood -5.2 L -6.5 L Base Excess Arterial Blood 96.1 96.4 Oxygen Saturatio n Dajuan Test ACCEPTAB ACCEPTAB Arterial Blood Right Radial Right Radial Gas Puncture Site Arterial 0.3 0 Blood Carboxyhem oglobin Arterial Blood 0.4 0.4 Methemoglobin Blood Gas A-a O2 147.8 H 140.8 H Differential Oxyhemoglobin 95.4 96.0 Percent Blood Gas 37.0 37.0 Temperature Blood Gas 32.0 32.0 Respiration Rate Blood Gas Actual 33 32 Respiration Rate Blood Gas VENT - AC VENT - AC Modality FiO2 40.0 40.0 Blood Gas Tidal 350.0 350.0 Volume Blood Gas Low 8.0 8.0 PEEP Setting Blood Gas Zhang ARTEAGA RN Critical Value Read Back Blood Gas RDIX FRANCESCO Notified Whom Blood Gas 08/11/2018 1:26: 08/12/2018 5:07: Notified Time 46 PM 06 AM Bedside Glucose 89 White Blood 15.5 #H Count Red Blood Count 3.36 L Hemoglobin 9.3 L Hematocrit 29.8 L Mean Corpuscular 88.7 Volume Mean Corpuscular 27.7 L Hemoglobin Mean Corpuscular 31.2 L Hemoglobin Kenia nt Red Cell 17.4 H Distribution Width Platelet Count 52 #L Mean Platelet Volume Immature 4.500 H Granulocytes % Neutrophils % 82.3 H Lymphocytes % 6.8 L Monocytes % 4.5 Eosinophils % 1.3 Basophils % 0.6 Nucleated Red 0.5 H Blood Cells % Immature 0.700 H Granulocytes # Neutrophils # 12.7 H Lymphocytes # 1.1 Monocytes # 0.7 Eosinophils # 0.2 Basophils # 0.1 Nucleated Red 0.1 H Blood Cells # Sodium Level 142 Potassium Level 4.7 Chloride Level 112 H Carbon Dioxide 19 L Level Anion Gap 11 Blood Urea 66 H Nitrogen Creatinine 4.77 H Est Glomerular 10 L Filtrat Rate mL/min Glucose Level 75 # Lactic Acid 0.8 Level Calcium Level 7.2 L Phosphorus Level 8.4 #H Magnesium Level 3.0 H Random 13.7 Vancomycin Level Test 08/12/18 08:05 08/12/18 10:00 Bedside Glucose 100 Hepatitis B Pending Surface Antigen Hepatitis B Core Pending Total Antibody Hepatitis C Pending Antibody Medications Medication Current Medications Norepinephrine 250 ml @ 1.875 mls/ hr TITRATE IV Last administered on 08/10/18 00:41; Admin Dose 5.625 MLS/HR; Start 08/04/18 at 23:15 Ticagrelor (Brilinta) 90 mg BID PO Last administered on 08/12/18 08:08; Admin Dose 90 MG; Start 08/05/18 at 09:00 Morphine Sulfate (morphine) 1 mg Q1H PRN IV PAIN Last administered on 08/05/18 00:55; Admin Dose 1 MG; Start 08/04/18 at 23:30 Docusate Sodium (Colace) 100 mg BID PO Last administered on 08/12/18 08:06; Admin Dose 100 MG; Start 08/05/18 at 09:00 Atorvastatin Calcium (Lipitor) 80 mg DAILY@21 PO Last administered on 08/11/18 20:07; Admin Dose 80 MG; Start 08/05/18 at 21:00 Nitroglycerin/ Dextrose 250 ml @ 1.5 mls/hr TITRATE IV Last administered on 08/05/18 14:22; Admin Dose 72 MLS/HR; Start 08/05/18 at 01:00 Propofol 100 ml @ 2.772 mls/ hr Q12H IV Last administered on 08/09/18 04:37; Admin Dose 11.088 MLS/HR; Start 08/05/18 at 04:00; Status Hold Midazolam HCl 50 ml @ 1 mls/hr TITRATE IV Last administered on 08/05/18 19:22; Admin Dose 8 MLS/HR; Start 08/05/18 at 07:30 Miscellaneous Information 1 ea NOTE XX ; Start 08/05/18 at 09:00 Acetaminophen (Tylenol Supp) 650 mg Q4H PRN [place] TEMP > 37C Last administered on 08/09/18 04:37; Admin Dose 650 MG; Start 08/05/18 at 11:00 Acetaminophen (Tylenol Liquid) 650 mg Q4H PRN PO TEMP > 37C Last administered on 08/11/18 11:55; Admin Dose 650 MG; Start 08/05/18 at 11:00 Meperidine HCl (Demerol) 25 mg Q4H PRN IV POST OPERATIVE SHIVERING Last administered on 08/05/18 16:31; Admin Dose 25 MG; Start 08/05/18 at 11:00 Eye Lubricant (Akwa Oint) 1 applic Q6 BOTH EYES Last administered on 08/12/18 05:24; Admin Dose 1 APPLIC; Start 08/05/18 at 12:00 Eye Lubricant (Artificial Tears Oph) 2 drop Q6 BOTH EYES Last administered on 08/12/18 05:24; Admin Dose 2 DROP; Start 08/05/18 at 12:00 Insulin Human Regular 100 unit/ Sodium Chloride 100 ml @ 0 mls/hr PER PROTOCOL IV ; Start 08/05/18 at 12:00 Miscellaneous Information (* Miscellaneous Pharmacy Order) Treatment of Hypoglycemia: 1.BG 51... Per protocol XX ; Start 08/05/18 at 12:00 Dextrose (D50w Syringe) 25 ml Q15M PRN IV .DECREASED GLUCOSE; Start 08/05/18 at 12:00 Dextrose (D50w Syringe) 50 ml Q15M PRN IV .DECREASED GLUCOSE; Start 08/05/18 at 12:00 Fentanyl 100 ml @ 2.5 mls/hr TITRATE IV Last administered on 08/12/18 06:16; Admin Dose 7.5 MLS/HR; Start 08/05/18 at 12:00 Meperidine HCl (Demerol) 12.5 mg Q2H PRN IV POST OPERATIVE SHIVERING; Start 08/05/18 at 17:00 Aspirin (Aspirin) 81 mg DAILY NGT Last administered on 08/12/18 08:07; Admin Dose 81 MG; Start 08/06/18 at 09:00 Diagnostic Test (Pha) (Accu-Chek) 1 ea Q12 XX Last administered on 08/11/18 08:40; Admin Dose 1 EA; Start 08/06/18 at 21:00 Carvedilol (Coreg) 6.25 mg QID PO Last administered on 08/12/18 08:08; Admin Dose 6.25 MG; Start 08/08/18 at 09:00 Multivitamins (Multivitamin) 30 ml DAILY NGT Last administered on 08/12/18 08:06; Admin Dose 30 ML; Start 08/09/18 at 09:00 Zinc Sulfate (Zinc Sulfate) 220 mg DAILY NGT Last administered on 08/12/18 08:08; Admin Dose 220 MG; Start 08/09/18 at 09:00 Folic Acid (Folic Acid) 1 mg DAILY NGT Last administered on 08/12/18 08:06; Admin Dose 1 MG; Start 08/09/18 at 09:00 Ascorbic Acid (Vitamin C) 500 mg DAILY NGT Last administered on 08/12/18 08:06; Admin Dose 500 MG; Start 08/09/18 at 09:00 Dexmedetomidine HCl 200 mcg/ Sodium Chloride 50 ml @ 4.62 mls/hr TITRATE IV Last administered on 08/12/18 09:47; Admin Dose 9.24 MLS/HR; Start 08/09/18 at 11:30 Albuterol (Ventolin Hfa) 4 puff Q6HWA RESP THERAPY INH Last administered on 08/12/18 08:21; Admin Dose 4 PUFF; Start 08/09/18 at 14:00 Ipratropium [place] (Atrovent Hfa) 4 puff Q6H RESP THERAPY INH Last administered on 08/12/18 08:21; Admin Dose 4 PUFF; Start 08/09/18 at 14:00 Vancomycin HCl (Vanco Iv Per Pharmacy) VANCOMYCIN PER PHARMACY PER PROTOCOL XX ; Start 08/10/18 at 01:30 Piperacillin Sod/ Tazobactam Sod 50 ml @ 100 mls/hr Q8 IVPB Last administered on 08/12/18 05:24; Admin Dose 100 MLS/HR; Start 08/10/18 at 14:00 IV Flush (NS 10 ml) 10 ml PRN PRN IV IV PROTOCOL; Start 08/11/18 at 16:30 Lansoprazole (Prevacid) 30 mg 0600,1800 PEG Last administered on 08/12/18 05:24; Admin Dose 30 MG; Start 08/11/18 at 18:28 Vancomycin HCl 250 ml @ 125 mls/hr 1000 IVPB Last administered on 08/12/18 10:13; Admin Dose 125 MLS/HR; Start 08/12/18 at 10:00; Stop 08/12/18 at 19:00 THOMAS RILEY MD Aug 12, 2018 11:03
--- NOTE | 2018-08-12 11:13 | CONS ---
Assessment/Plan Assessment/Plan Assessment/Plan (Daily) ST elevation HI Renal failure Respiratory failure Status post ventricular fibrillation Status post PTCA of LAD We will proceed with a placement of a dialysis catheter Consultation Date/Type/Reason Admit Date/Time Aug 04, 2018 at 23:10 Date of Consultation: Aug 12, 2018 Type of Consult Vascular surgery Reason for Consultation End-stage renal disease dialysis access placement Date/Time of Note DATE: 08/12/18 TIME: 11:10 Hx of Present Illness 38-year-old female with a history of hypertension diabetes was found down at home patient was admitted with ventricular fibrillation had to be defibrillated was found to have ST elevation HI taken to the cardiac catheterization lab where she underwent PTCA of LAD with a stent placement subsequently transferred to the intensive care unit has been intubated currently being treated for renal failure and will be needing dialysis access Respiratory: no complaints Cardiovascular: no complaints Gastrointestinal: no complaints Genitourinary: no complaints Musculoskeletal: no complaints Skin: no complaints Neurologic: no complaints Past Medical History Medical History: coronary artery disease, diabetes, hypertension Medications Current Medications Norepinephrine 250 ml @ 1.875 mls/ hr TITRATE IV Last administered on 08/10/18at 00:41; Admin Dose 5.625 MLS/HR; Start 08/04/18 at 23:15 Ticagrelor (Brilinta) 90 mg BID PO Last administered on 08/12/18 08:08; Admin Dose 90 MG; Start 08/05/18 at 09:00 Morphine Sulfate (morphine) 1 mg Q1H PRN IV PAIN Last administered on 08/05/18at 00:55; Admin Dose 1 MG; Start 08/04/18 at 23:30 Docusate Sodium (Colace) 100 mg BID PO Last administered on 08/12/18at 08:06; Admin Dose 100 MG; Start 08/05/18 at 09:00 Atorvastatin Calcium (Lipitor) 80 mg DAILY@21 PO Last administered on 08/11/18at 20:07; Admin Dose 80 MG; Start 08/05/18 at 21:00 Nitroglycerin/ Dextrose 250 ml @ 1.5 mls/hr TITRATE IV Last administered on 08/05/18 14:22; Admin Dose 72 MLS/HR; Start 08/05/18 at 01:00 Propofol 100 ml @ 2.772 mls/ hr Q12H IV Last administered on 08/09/18 04:37; Admin Dose 11.088 MLS/HR; Start 08/05/18 at 04:00; Status Hold Midazolam HCl 50 ml @ 1 mls/hr TITRATE IV Last administered on 08/05/18 19:22; Admin Dose 8 MLS/HR; Start 08/05/18 at 07:30 Miscellaneous Information 1 ea NOTE XX ; Start 08/05/18 at 09:00 Acetaminophen (Tylenol Supp) 650 mg Q4H PRN AR TEMP > 37C Last administered on 08/09/18at 04:37; Admin Dose 650 MG; Start 08/05/18 at 11:00 Acetaminophen (Tylenol Liquid) 650 mg Q4H PRN PO TEMP > 37C Last administered on 08/11/18 11:55; Admin Dose 650 MG; Start 08/05/18 at 11:00 Meperidine HCl (Demerol) 25 mg Q4H PRN IV POST OPERATIVE SHIVERING Last administered on 08/05/18 16:31; Admin Dose 25 MG; Start 08/05/18 at 11:00 Eye Lubricant (Akwa Oint) 1 applic Q6 BOTH EYES Last administered on 08/12/18 05:24; Admin Dose 1 APPLIC; Start 08/05/18 at 12:00 Eye Lubricant (Artificial Tears Oph) 2 drop Q6 BOTH EYES Last administered on 08/12/18 05:24; Admin Dose 2 DROP; Start 08/05/18 at 12:00 Insulin Human Regular 100 unit/ Sodium Chloride 100 ml @ 0 mls/hr PER PROTOCOL IV ; Start 08/05/18 at 12:00 Miscellaneous Information (* Miscellaneous Pharmacy Order) Treatment of Hypoglycemia: 1.BG 51... Per protocol XX ; Start 08/05/18 at 12:00 Dextrose (D50w Syringe) 25 ml Q15M PRN IV .DECREASED GLUCOSE; Start 08/05/18 at 12:00 Dextrose (D50w Syringe) 50 ml Q15M PRN IV .DECREASED GLUCOSE; Start 08/05/18 at 12:00 Fentanyl 100 ml @ 2.5 mls/hr TITRATE IV Last administered on 08/12/18 06:16; Admin Dose 7.5 MLS/HR; Start 08/05/18 at 12:00 Meperidine HCl (Demerol) 12.5 mg Q2H PRN IV POST OPERATIVE SHIVERING; Start 08/05/18 at 17:00 Aspirin (Aspirin) 81 mg DAILY NGT Last administered on 08/12/18 08:07; Admin D ose 81 MG; Start 08/06/18 at 09:00 Diagnostic Test (Pha) (Accu-Chek) 1 ea Q12 XX Last administered on 08/11/18 08:40; Admin Dose 1 EA; Start 08/06/18 at 21:00 Carvedilol (Coreg) 6.25 mg QID PO Last administered on 08/12/18 08:08; Admin Dose 6.25 MG; Start 08/08/18 at 09:00 Multivitamins (Multivitamin) 30 ml DAILY NGT Last administered on 08/12/18 08:06; Admin Dose 30 ML; Start 08/09/18 at 09:00 Zinc Sulfate (Zinc Sulfate) 220 mg DAILY NGT Last administered on 08/12/18 08:08; Admin Dose 220 MG; Start 08/09/18 at 09:00 Folic Acid (Folic Acid) 1 mg DAILY NGT Last administered on 08/12/18 08:06; Admin Dose 1 MG; Start 08/09/18 at 09:00 Ascorbic Acid (Vitamin C) 500 mg DAILY NGT Last administered on 08/12/18 08:06; Admin Dose 500 MG; Start 08/09/18 at 09:00 Dexmedetomidine HCl 200 mcg/ Sodium Chloride 50 ml @ 4.62 mls/hr TITRATE IV Last administered on 08/12/18 09:47; Admin Dose 9.24 MLS/HR; Start 08/09/18 at 11:30 Albuterol (Ventolin Hfa) 4 puff Q6HWA RESP THERAPY INH Last administered on 08/12/18 08:21; Admin Dose 4 PUFF; Start 08/09/18 at 14:00 Ipratropium [place] (Atrovent Hfa) 4 puff Q6H RESP THERAPY INH Last administered on 08/12/18 08:21; Admin Dose 4 PUFF; Start 08/09/18 at 14:00 Vancomycin HCl (Vanco Iv Per Pharmacy) VANCOMYCIN PER PHARMACY PER PROTOCOL XX ; Start 08/10/18 at 01:30 Piperacillin Sod/ Tazobactam Sod 50 ml @ 100 mls/hr Q8 IVPB Last administered on 08/12/18at 05:24; Admin Dose 100 MLS/HR; Start 08/10/18 at 14:00 IV Flush (NS 10 ml) 10 ml PRN PRN IV IV PROTOCOL; Start 08/11/18 at 16:30 Lansoprazole (Prevacid) 30 mg 0600,1800 PEG Last administered on 08/12/18at 05:24; Admin Dose 30 MG; Start 08/11/18 at 18:28 Vancomycin HCl 250 ml @ 125 mls/hr 1000 IVPB Last administered on 08/12/18at 10:13; Admin Dose 125 MLS/HR; Start 08/12/18 at 10:00; Stop 08/12/18 at 19:00 Allergies: Coded Allergies: Unknown: Unable to obtain (Unverified , 08/04/18) Past Surgical History Past Surgical Hx: no surgical history, other Social History Alcohol Use: none Smoking Status: Never smoker Drug Use: none Exam/Review of Systems Exam Vitals Vital Signs Date Temp Pulse Resp B/P (MAP) Pulse Ox O2 O2 Flow FiO2 Time Delivery Rate 08/12/18 88 08:34 08/12/18 98.5 32 116/74 94 Mechanical 08:00 (88) Ventilator 08/12/18 40 08:00 Intake and Output 08/11/18 08/11/18 08/12/18 1515:00 23:00 07:00 IntakeIntake Total 630.88 ml 570.88 ml 603.02 ml OutputOutput Total 150 ml 60 ml 85 ml BalanceBalance 480.88 ml 510.88 ml 518.02 ml ENMT: nl external ears & nose, nl lips & teeth, nl nasal mucosa & septum Neck: supple, non-tender Respiratory: clear to auscultation, normal air movement Cardiovascular: regular rate and rhythm, nl pulses Gastrointestinal: soft, nl liver, spleen, non-tender Musculoskeletal: nl extremities to inspection, nl gait and stance Extremities: normal pulses Results Result Diagram: 08/12/1830908/12/18309 Results 24hrs Laboratory Tests Test 08/11/18 11:26 08/11/18 20:13 08/12/18 03:10 08/12/18 05:00 Blood Gas Blood arterial Blood arterial Specimen Source Arterial Blood 08/11/2018 1:10: 08/12/2018 4:30: Date Drawn 30 PM 10 AM Arterial Blood 7.319 L 7.274 *L pH (Temp corrected) Arterial Blood 40.9 44.2 pCO2 (Temp correct) Arterial Blood 90.4 93.6 pO2 (Temp corrected) Arterial Blood 20.6 L 20.0 L HCO3 Arterial Blood -5.2 L -6.5 L Base Excess Arterial Blood 96.1 96.4 Oxygen Saturatio n Dajuan Test ACCEPTAB ACCEPTAB Arterial Blood Right Radial Right Radial Gas Puncture Site Arterial 0.3 0 Blood Carboxyhem oglobin Arterial Blood 0.4 0.4 Methemoglobin Blood Gas A-a O2 147.8 H 140.8 H Differential Oxyhemoglobin 95.4 96.0 Percent Blood Gas 37.0 37.0 Temperature Blood Gas 32.0 32.0 Respiration Rate Blood Gas Actual 33 32 Respiration Rate Blood Gas VENT - AC VENT - AC Modality FiO2 40.0 40.0 Blood Gas Tidal 350.0 350.0 Volume Blood Gas Low 8.0 8.0 PEEP Setting Blood Gas Zhang ARTEAGA, RN Critical Value Read Back Blood Gas RDIX FRANCESCO Notified Whom Blood Gas 08/11/2018 1:26: 08/12/2018 5:07: Notified Time 46 PM 06 AM Bedside Glucose 89 White Blood 15.5 #H Count Red Blood Count 3.36 L Hemoglobin 9.3 L Hematocrit 29.8 L Mean Corpuscular 88.7 Volume Mean Corpuscular 27.7 L Hemoglobin Mean Corpuscular 31.2 L Hemoglobin [place] nt Red Cell 17.4 H Distribution Width Platelet Count 52 #L Mean Platelet Volume Immature 4.500 H Granulocytes % Neutrophils % 82.3 H Lymphocytes % 6.8 L Monocytes % 4.5 Eosinophils % 1.3 Basophils % 0.6 Nucleated Red 0.5 H Blood Cells % Immature 0.700 H Granulocytes # Neutrophils # 12.7 H Lymphocytes # 1.1 Monocytes # 0.7 Eosinophils # 0.2 Basophils # 0.1 Nucleated Red 0.1 H Blood Cells # Sodium Level 142 Potassium Level 4.7 Chloride Level 112 H Carbon Dioxide 19 L Level Anion Gap 11 Blood Urea 66 H Nitrogen Creatinine 4.77 H Est Glomerular 10 L Filtrat Rate mL/min Glucose Level 75 # Lactic Acid 0.8 Level Calcium Level 7.2 L Phosphorus Level 8.4 #H Magnesium Level 3.0 H Random 13.7 Vancomycin Level Test 08/12/18 08:05 08/12/18 10:00 Bedside Glucose 100 Hepatitis B Pending Surface Antigen Hepatitis B Core Pending Total Antibody Hepatitis C Pending Antibody Medications Medication Current Medications Norepinephrine 250 ml @ 1.875 mls/ hr TITRATE IV Last administered on 08/10/18 00:41; Admin Dose 5.625 MLS/HR; Start 08/04/18 at 23:15 Ticagrelor (Brilinta) 90 mg BID PO Last administered on 08/12/18 08:08; Admin Dose 90 MG; Start 08/05/18 at 09:00 Morphine Sulfate (morphine) 1 mg Q1H PRN IV PAIN Last administered on 08/05/18 00:55; Admin Dose 1 MG; Start 08/04/18 at 23:30 Docusate Sodium (Colace) 100 mg BID PO Last administered on 08/12/18 08:06; Admin Dose 100 MG; Start 08/05/18 at 09:00 Atorvastatin Calcium (Lipitor) 80 mg DAILY@21 PO Last administered on 08/11/18at 20:07; Admin Dose 80 MG; Start 08/05/18 at 21:00 Nitroglycerin/ Dextrose 250 ml @ 1.5 mls/hr TITRATE IV Last administered on 08/05/18 14:22; Admin Dose 72 MLS/HR; Start 08/05/18 at 01:00 Propofol 100 ml @ 2.772 mls/ hr Q12H IV Last administered on 08/09/18 04:37; Admin Dose 11.088 MLS/HR; Start 08/05/18 at 04:00; Status Hold Midazolam HCl 50 ml @ 1 mls/hr TITRATE IV Last administered on 08/05/18 19:22; Admin Dose 8 MLS/HR; Start 08/05/18 at 07:30 Miscellaneous Information 1 ea NOTE XX ; Start 08/05/18 at 09:00 Acetaminophen (Tylenol Supp) 650 mg Q4H PRN AR TEMP > 37C Last administered on 08/09/18at 04:37; Admin Dose 650 MG; Start 08/05/18 at 11:00 Acetaminophen (Tylenol Liquid) 650 mg Q4H PRN PO TEMP > 37C Last administered on 08/11/18 11:55; Admin Dose 650 MG; Start 08/05/18 at 11:00 Meperidine HCl (Demerol) 25 mg Q4H PRN IV POST OPERATIVE SHIVERING Last adm inistered on 08/05/18 16:31; Admin Dose 25 MG; Start 08/05/18 at 11:00 Eye Lubricant (Akwa Oint) 1 applic Q6 BOTH EYES Last administered on 08/12/18 05:24; Admin Dose 1 APPLIC; Start 08/05/18 at 12:00 Eye Lubricant (Artificial Tears Oph) 2 drop Q6 BOTH EYES Last administered on 08/12/18 05:24; Admin Dose 2 DROP; Start 08/05/18 at 12:00 Insulin Human Regular 100 unit/ Sodium Chloride 100 ml @ 0 mls/hr PER PROTOCOL IV ; Start 08/05/18 at 12:00 Miscellaneous Information (* Miscellaneous Pharmacy Order) Treatment of Hypoglycemia: 1.BG 51... Per protocol XX ; Start 08/05/18 at 12:00 Dextrose (D50w Syringe) 25 ml Q15M PRN IV .DECREASED GLUCOSE; Start 08/05/18 at 12:00 Dextrose (D50w Syringe) 50 ml Q15M PRN IV .DECREASED GLUCOSE; Start 08/05/18 at 12:00 Fentanyl 100 ml @ 2.5 mls/hr TITRATE IV Last administered on 08/12/18 06:16; Admin Dose 7.5 MLS/HR; Start 08/05/18 at 12:00 Meperidine HCl (Demerol) 12.5 mg Q2H PRN IV POST OPERATIVE SHIVERING; Start 08/05/18 at 17:00 Aspirin (Aspirin) 81 mg DAILY NGT Last administered on 08/12/18 08:07; Admin Dose 81 MG; Start 08/06/18 at 09:00 Diagnostic Test (Pha) (Accu-Chek) 1 ea Q12 XX Last administered on 08/11/18 08:40; Admin Dose 1 EA; Start 08/06/18 at 21:00 Carvedilol (Coreg) 6.25 mg QID PO Last administered on 08/12/18 08:08; Admin Dose 6.25 MG; Start 08/08/18 at 09:00 Multivitamins (Multivitamin) 30 ml DAILY NGT Last administered on 08/12/18 08:06; Admin Dose 30 ML; Start 08/09/18 at 09:00 Zinc Sulfate (Zinc Sulfate) 220 mg DAILY NGT Last administered on 08/12/18 08:08; Admin Dose 220 MG; Start 08/09/18 at 09:00 Folic Acid (Folic Acid) 1 mg DAILY NGT Last administered on 08/12/18 08:06; Admin Dose 1 MG; Start 08/09/18 at 09:00 Ascorbic Acid (Vitamin C) 500 mg DAILY NGT Last administered on 08/12/18 08:06; Admin Dose 500 MG; Start 08/09/18 at 09:00 Dexmedetomidine HCl 200 mcg/ Sodium Chloride 50 ml @ 4.62 mls/hr TITRATE IV Last administered on 08/12/18 09:47; Admin Dose 9.24 MLS/HR; Start 08/09/18 at 11:30 Albuterol (Ventolin Hfa) 4 puff Q6HWA RESP THERAPY INH Last administered on 08/12/18 08:21; Admin Dose 4 PUFF; Start 08/09/18 at 14:00 Ipratropium [place] (Atrovent Hfa) 4 puff Q6H RESP THERAPY INH Last administered on 08/12/18 08:21; Admin Dose 4 PUFF; Start 08/09/18 at 14:00 Vancomycin HCl (Vanco Iv Per Pharmacy) VANCOMYCIN PER PHARMACY PER PROTOCOL XX ; Start 08/10/18 at 01:30 Piperacillin Sod/ Tazobactam Sod 50 ml @ 100 mls/hr Q8 IVPB Last administered on 08/12/18 05:24; Admin Dose 100 MLS/HR; Start 08/10/18 at 14:00 IV Flush (NS 10 ml) 10 ml PRN PRN IV IV PROTOCOL; Start 08/11/18 at 16:30 Lansoprazole (Prevacid) 30 mg 0600,1800 PEG Last administered on 08/12/18 05:24; Admin Dose 30 MG; Start 08/11/18 at 18:28 Vancomycin HCl 250 ml @ 125 mls/hr 1000 IVPB Last administered on 08/12/18 10:13; Admin Dose 125 MLS/HR; Start 08/12/18 at 10:00; Stop 08/12/18 at 19:00 KRISTOFER BAKER MD Aug 12, 2018 11:13
--- NOTE | 2018-08-12 13:09 | OPR ---
DATE OF OPERATION: PREOPERATIVE DIAGNOSIS: Renal failure. POSTOPERATIVE DIAGNOSIS: Renal failure. PROCEDURE: Right femoral hemodialysis catheter placement. SURGEON: Kristofer Wilson MD ANESTHESIA: Local. CONSENT: Risks, benefits, complications, alternative therapies were explained to the patient and the patient's family. Consent was obtained. OPERATIVE TECHNIQUE: The patient was placed in supine position, prepped and draped in usual sterile fashion. Time-out was called. Access was gained in the right common femoral vein. Guidewire was ad vanced through without any difficulty. Subcutaneous tissues were dilated. A 25 cm dialysis catheter was advanced over guidewire, secured to skin using silk sutures. Both ports of the catheter were as pirated and injected using saline solution. Appropriate dressings were applied. The patient tolerat ed procedure well. Dictated By: KRISTOFER WILSON MD FM/ALLI Conf#: [id number] DID#: [id number] CC: LAUREN GREWAL MD; DANIAL TUCKER MD; THOMAS RILEY MD;*End*
--- NOTE | 2018-08-12 14:32 | CONS ---
Assessment/Plan Assessment/Plan Hospital Course (Demo Recall) Myocardial infarction status post PCI to LAD SIRS/Sepsis Preserved ejection fraction Triple-vessel coronary artery disease Vent dependent respiratory failure Cardiac arrest Encephalopathy Acute kidney injury Anemia and thrombocytopenia Patient remains intubated, vent management as per pulmonary Patient currently on dual antiplatelet therapy given recent PCI. Platelet count is dropping as well as anemia. If continues to worsen, consider changing Brilinta to Plavix Continue beta-blockers heart rate and blood pressure permits Antibiotics as per primary team Greater than 33 minutes of critical care time taken in the care of this patient -Dr. Rashid to resume care 08/12/2018 Consultation Date/Type/Reason Admit Date/Time Aug 04, 2018 at 23:10 Initial Consult Date 08/05/18 Type of Consult Cardiology Requesting Provider: HARPAL AGGARWAL MD Date/Time of Note DATE: 08/12/18 TIME: 14:28 24 HR Interval Summary Free Text/Dictation Patient seen and examined Exam/Review of Systems Vital Signs Vitals Vital Signs Date Temp Pulse Resp B/P (MAP) Pulse Ox O2 O2 Flow FiO2 Time Delivery Rate 08/12/18 88 32 117/68 95 Mechanical 13:00 (84) Ventilator 08/12/18 98.5 12:00 08/12/18 40 08:00 Intake and Output 08/11/18 08/11/18 08/12/18 1515:00 23:00 07:00 IntakeIntake Total 630.88 ml 570.88 ml 603.02 ml OutputOutput Total 150 ml 60 ml 85 ml BalanceBalance 480.88 ml 510.88 ml 518.02 ml Exam Exam Intubated, no apparent distress, minimal response to verbal stimuli Head: normocephalic ENMT: intubated Respiratory: other (Coarse breath sounds bilaterally, no wheezing) Cardiovascular: regular rate and rhythm (S1-S2 heard) Gastrointestinal: soft, non-tender (No grimacing with palpation), bowel sounds Extremities: edema Labs Result Diagram: 08/12/18 03108/12/18 0310 Results 24hrs Laboratory Tests Test 08/11/18 20:13 08/12/18 03:10 08/12/18 05:00 08/12/18 08:05 Bedside Glucose 89 100 White Blood Count 15.5 #H Red Blood Count 3.36 L Hemoglobin 9.3 L Hematocrit 29.8 L Mean Corpuscular 88.7 Volume Mean Corpuscular 27.7 L Hemoglobin Mean Corpuscular 31.2 L Hemoglobin Concen t Red Cell 17.4 H Distribution Width Platelet Count 52 #L Mean Platelet Volume Immature 4.500 H Granulocytes % Neutrophils % 82.3 H Lymphocytes % 6.8 L Monocytes % 4.5 Eosinophils % 1.3 Basophils % 0.6 Nucleated Red 0.5 H Blood Cells % Immature 0.700 H Granulocytes # Neutrophils # 12.7 H Lymphocytes # 1.1 Monocytes # 0.7 Eosinophils # 0.2 Basophils # 0.1 Nucleated Red 0.1 H Blood Cells # Sodium Level 142 Potassium Level 4.7 Chloride Level 112 H Carbon Dioxide 19 L Level Anion Gap 11 Blood Urea 66 H Nitrogen Creatinine 4.77 H Est Glomerular 10 L Filtrat Rate mL/min Glucose Level 75 # Lactic Acid Level 0.8 Calcium Level 7.2 L Phosphorus Level 8.4 #H Magnesium Level 3.0 H Random Vancomycin 13.7 Level Blood Gas Blood arterial Specimen Source Arterial Blood 08/12/2018 4:30:1 Date Drawn 0 AM Arterial Blood pH 7.274 *L (Temp corrected) Arterial Blood 44.2 pCO2 (Temp correct) Arterial Blood 93.6 pO2 (Temp corrected) Arterial Blood 20.0 L HCO3 Arterial Blood -6.5 L Base Excess Arterial Blood 96.4 Oxygen Saturation Dajuan Test ACCEPTAB Arterial Blood Right Radial Gas Puncture Site Arterial 0 Blood Carboxyhemo globin Arterial Blood 0.4 Methemoglobin Blood Gas A-a O2 140.8 H Differential Oxyhemoglobin 96.0 Percent Blood Gas 37.0 Temperature Blood Gas 32.0 Respiration Rate Blood Gas Actual 32 Respiration Rate Blood Gas VENT - AC Modality FiO2 40.0 Blood Gas Tidal 350.0 Volume Blood Gas Low 8.0 PEEP Setting Blood Gas ADAM ARTEAGA Critical Value Read Back Blood Gas MA Notified Whom Blood Gas 08/12/2018 5:07:0 Notified Time 6 AM Test 08/12/18 10:00 Hepatitis B NEGATIVE Surface Antigen Hepatitis B Core NEGATIVE Total Antibody Hepatitis C NEGATIVE Antibody Medications Medications Current Medications Norepinephrine 250 ml @ 1.875 mls/ hr TITRATE IV Last administered on 08/10at 00:41; Admin Dose 5.625 MLS/HR; Start 08/04/18 at 23:15 Ticagrelor (Brilinta) 90 mg BID PO Last administered on 08/12/18 08:08; Admin Dose 90 MG; Start 08/05/18 at 09:00 Morphine Sulfate (morphine) 1 mg Q1H PRN IV PAIN Last administered on 08/05/18 00:55; Admin Dose 1 MG; Start 08/04/18 at 23:30 Docusate Sodium (Colace) 100 mg BID PO Last administered on 08/12/18 08:06; Admin Dose 100 MG; Start 08/05/18 at 09:00 Atorvastatin Calcium (Lipitor) 80 mg DAILY@21 PO Last administered on 08/11/18 20:07; Admin Dose 80 MG; Start 08/05/18 at 21:00 Nitroglycerin/ Dextrose 250 ml @ 1.5 mls/hr TITRATE IV Last administered on 08/05/18 14:22; Admin Dose 72 MLS/HR; Start 08/05/18 at 01:00 Propofol 100 ml @ 2.772 mls/ hr Q12H IV Last administered on 08/09/18 04:37; Admin Dose 11.088 MLS/HR; Start 08/05/18 at 04:00; Status Hold Midazolam HCl 50 ml @ 1 mls/hr TITRATE IV Last administered on 08/05/18 19:22; Admin Dose 8 MLS/HR; Start 08/05/18 at 07:30 Miscellaneous Information 1 ea NOTE XX ; Start 08/05/18 at 09:00 Acetaminophen (Tylenol Supp) 650 mg Q4H PRN ME TEMP > 37C Last administered on 08/09/18 04:37; Admin Dose 650 MG; Start 08/05/18 at 11:00 Acetaminophen (Tylenol Liquid) 650 mg Q4H PRN PO TEMP > 37C Last administered on 08/11/18 11:55; Admin Dose 650 MG; Start 08/05/18 at 11:00 Meperidine HCl (Demerol) 25 mg Q4H PRN IV POST OPERATIVE SHIVERING Last administered on 08/05/18 16:31; Admin Dose 25 MG; Start 08/05/18 at 11:00 Eye Lubricant (Akwa Oint) 1 applic Q6 BOTH EYES Last administered on 08/12/18 11:15; Admin Dose 1 APPLIC; Start 08/05/18 at 12:00 Eye Lubricant (Artificial Tears Oph) 2 drop Q6 BOTH EYES Last administered on 08/12/18at 11:15; Admin Dose 2 DROP; Start 08/05/18 at 12:00 Insulin Human Regular 100 unit/ Sodium Chloride 100 ml @ 0 mls/hr PER PROTOCOL IV ; Start 08/05/18 at 12:00 Miscellaneous Information (* Miscellaneous Pharmacy Order) Treatment of Hypoglycemia: 1.BG 51... Per protocol XX ; Start 08/05/18 at 12:00 Dextrose (D50w Syringe) 25 ml Q15M PRN IV .DECREASED GLUCOSE; Start 08/05/18 at 12:00 Dextrose (D50w Syringe) 50 ml Q15M PRN IV .DECREASED GLUCOSE; Start 08/05/18 at 12:00 Fentanyl 100 ml @ 2.5 mls/hr TITRATE IV Last administered on 08/12/18 06:16; Admin Dose 7.5 MLS/HR; Start 08/05/18 at 12:00 Meperidine HCl (Demerol) 12.5 mg Q2H PRN IV POST OPERATIVE SHIVERING; Start 08/05/18 at 17:00 Aspirin (Aspirin) 81 mg DAILY NGT Last administered on 08/12/18 08:07; Admin Dose 81 MG; Start 08/06/18 at 09:00 Diagnostic Test (Pha) (Accu-Chek) 1 ea Q12 XX Last administered on 08/11/18 08:40; Admin Dose 1 EA; Start 08/06/18 at 21:00 Carvedilol (Coreg) 6.25 mg QID PO Last administered on 08/12/18 08:08; Admin Dose 6.25 MG; Start 08/08/18 at 09:00 Multivitamins (Multivitamin) 30 ml DAILY NGT Last administered on 08/12/18 08:06; Admin Dose 30 ML; Start 08/09/18 at 09:00 Zinc Sulfate (Zinc Sulfate) 220 mg DAILY NGT Last administered on 08/12/18 08:08; Admin Dose 220 MG; Start 08/09/18 at 09:00 Folic Acid (Folic Acid) 1 mg DAILY NGT Last administered on 08/12/18 08:06; Admin Dose 1 MG; Start 08/09/18 at 09:00 Ascorbic Acid (Vitamin C) 500 mg DAILY NGT Last administered on 08/12/18 08:06; Admin Dose 500 MG; Start 08/09/18 at 09:00 Dexmedetomidine HCl 200 mcg/ Sodium Chloride 50 ml @ 4.62 mls/hr TITRATE IV Last administered on 08/12/18 09:47; Admin Dose 9.24 MLS/HR; Start 08/09/18 at 11:30 Albuterol (Ventolin Hfa) 4 puff Q6HWA RESP THERAPY INH Last administered on 08/12/18 14:22; Admin Dose 4 PUFF; Start 08/09/18 at 14:00 Ipratropium [place] (Atrovent Hfa) 4 puff Q6H RESP THERAPY INH Last administered on 08/12/18 14:21; Admin Dose 4 PUFF; Start 08/09/18 at 14:00 Vancomycin HCl (Vanco Iv Per Pharmacy) VANCOMYCIN PER PHARMACY PER PROTOCOL XX ; Start 08/10/18 at 01:30 Piperacillin Sod/ Tazobactam Sod 50 ml @ 100 mls/hr Q8 IVPB Last administered on 08/12/18 05:24; Admin Dose 100 MLS/HR; Start 08/10/18 at 14:00 IV Flush (NS 10 ml) 10 ml PRN PRN IV IV PROTOCOL; Start 08/11/18 at 16:30 Lansoprazole (Prevacid) 30 mg 0600,1800 PEG Last administered on 08/12/18 05:24; Admin Dose 30 MG; Start 08/11/18 at 18:28 Vancomycin HCl 250 ml @ 125 mls/hr 1000 IVPB Last administered on 08/12/18 10:13; Admin Dose 125 MLS/HR; Start 08/12/18 at 10:00; Stop 08/12/18 at 19:00 Heparin Sodium (Porcine) (Heparin (1000 Units/ml)) 3,000 unit PRN PRN CATHETER Dialysis; Start 08/12/18 at 14:30; Status Earl Hendricks DO Aug 12, 2018 14:32
[2018-08-12] MEDS: HEPARIN 1000 UNITS/ML 10 ML INJ CATHETER PRN (15:44)
--- NOTE | 2018-08-12 18:10 | CONS ---
DATE OF ADMISSION: 08/04/2018 DATE OF CONSULTATION: 08/12/2018 TYPE OF CONSULTATION: Infectious disease. REASON FOR CONSULTATION: Antibiotic management. HISTORY OF PRESENT ILLNESS: Yuliet Nolasco is a 38-year-old female who was brought in by am [facility] after collapsing in her kitchen. EMS states that her initial rhythm was ventricular fibrilla tion. She required 2 rounds of cardioversion and intraosseous epinephrine to regain spontaneous circ ulation at the scene. Her stated that she had chest pain for most of the day. Her past problems include: 1. Diabetes mellitus. 2. Hypertension. 3. Obesity. 4. "Heart problems." On admission, white count was 9.2, H and H is 11.1 and 34.9, platelet count 158,000. BUN and creatin ine is 31/1.75, glucose of 268. HOSPITAL COURSE: She was seen by Dr. Rashid in cardiology consultation. He did an angiogram which s howed severe coronary artery disease. He put a PCI in the LAD. Successful PTCA and stenting in the proximal and mid left anterior descending artery using a drug-eluting stent, successful PTCA of the l arge first diagonal and thrombectomy of left anterior descending artery using Pronto device. The pat ient was noted to have a STEMI. She has presumed acute renal failure, seen by Dr. Adrian Zabala for renal consultation. Currently, she was also seen by Dr. Booker concerning for anoxic encephalopat hy, downtime unknown as no bystander was there for CPR. The patient remains intubated on a ventilato r on hypothermia protocol on 08/07/2018. She is not responsive, nonverbal. The patient had a right femoral hemodialysis catheter placed today. She has a PICC line urinary catheter. She has acute tox ic metabolic encephalopathy. Neurology consultation was placed. CT scan of the head was ordered. S he had septic shock secondary to pneumonia and bacteremia. White count is still elevated at 15.5 wit h H and H of 9.3 and 29.8, platelet count 52,000. BUN and creatinine is 66/4.77. She is diabetic. She has acute hypoxic respiratory failure. She had a repeat PCI on 08/07/2018 with stenting to the L CX left circumflex and her endotracheal tube is growing Staphylococcus aureus from the 08/09/2018 to 08/11/2018. Blood cultures, Staph aureus; urine coagulase negative Staph and Aguilar catheter is growi ng E. coli and Proteus mirabilis, both sensitive to ampicillin and cefotaxime. She is currently on v ancomycin and Zosyn. Her chest x-ray shows cardiomegaly, central pulmonary venous congestion with di ffuse bilateral infiltrates, pneumonia versus edema. She has a PICC line in place status post remova l of right IJ. She has an ET tube and NG tube in satisfactory position. PHYSICAL EXAMINATION: GENERAL: The patient is an obese female who is obtunded on a respirator. She has an ET tube, NG tub e, Aguilar catheter, PICC line. SKIN: Without generalized rash. HEENT: Within normal limits. NECK: Supple. LYMPH NODES: None palpable. CHEST: Decreased breath sounds at the bases. HEART: Without murmur or gallop. ABDOMEN: Soft, nontender without organosplenomegaly or masses. EXTREMITIES: Without cyanosis, clubbing or edema. RECTAL AND GENITAL: Deferred. NEUROLOGIC: The patient is vegetated. She is obtunded on a respirator. IMPRESSION AND PLAN: We probably can change her to cefotaxime from Zosyn; however, because of the di ffuse infiltrates that she has, we will continue her on vancomycin and Zosyn. We should get a sputum for culture and sensitivity. I will dictate my findings to the hospitalist and to the numerous cons ultants. Dictated By: LAUREN GREWAL MD, JD/NTS Conf#: [id number] DID#: [id number] CC: THOMAS RILEY MD; DANIAL TUCKER MD;*[facility]*
[2018-08-12] MEDS: ATORVASTATIN 80 MG TAB PO SCH (20:12)
[2018-08-13] VITALS (47 sets, daily range): BP systolic 62–157; BP diastolic 20–99; PULSE 80–107; RESP 23–36
[2018-08-13] MEDS: IPRATROPIUM (HFA) 12.9 GM INHALER INH SCH ×4 (01:23→20:27)
[2018-08-13] MEDS: DEXMEDETOMIDINE HCL 200 MCG in SOD CHLORIDE 0.9% 48 ML IV SCH ×3 (02:57→12:39)
[2018-08-13] MEDS: FENTAnyl (DRIP) 1000 mcg/100mL 100 ML IV SCH ×2 (03:07→17:54)
[2018-08-13] MEDS: OCULAR LUBRICANT 3.5 GM OPH OINT BOTH EYES SCH ×4 (05:33→23:37)
[2018-08-13] MEDS: LANSOPRAZOLE 30 MG CAP PEG SCH ×2 (05:33→17:47)
[2018-08-13] MEDS: PIPER-TAZO 2.25 GM/NS 50 ML IVPB SCH ×3 (05:33→21:22)
[2018-08-13] MEDS: ARTIFICIAL TEARS 15 ML OPH BOTH EYES SCH ×4 (05:33→23:37)
[2018-08-13] MEDS: FOLIC ACID 1 MG TAB NGT SCH (08:20)
[2018-08-13] MEDS: ZINC SULFATE 220 MG CAP NGT SCH (08:20)
[2018-08-13] MEDS: ASCORBIC ACID 500 MG TAB NGT SCH (08:21)
[2018-08-13] MEDS: ASPIRIN 81 MG TAB NGT SCH (08:21)
[2018-08-13] MEDS: MULTIVITAMINS 30 ML CUP NGT SCH (08:21)
[2018-08-13] MEDS: TICAGRELOR 90 MG TABLET PO SCH ×2 (08:22→21:40)
[2018-08-13] MEDS: DOCUSATE SODIUM 100 MG CAP PO SCH ×2 (08:25→21:22)
--- NOTE | 2018-08-13 08:29 | PN ---
DATE: 08/13/2018 SUBJECTIVE: The patient remains critically ill. The patient had hemodialysis yesterday, tolerated w ell. The patient's urinary output remains minimal. OBJECTIVE: VITAL SIGNS: Blood pressure is 123/79, respirations 32, pulse 86, temperature 99.8. HEENT: Head is normocephalic. NECK: Supple. HEART: Regular rate. LUNGS: Show diminished breath sounds at the base. ABDOMEN: Soft, nontender to palpation without rebound or guarding. EXTREMITIES: Negative for clubbing, cyanosis. Positive edema. DERMATOLOGIC: No rashes. MUSCULOSKELETAL: No joint effusion. NEUROLOGIC: No change in exam. MEDICATIONS: Reviewed. LABORATORY DATA: Shows sodium 141, potassium 4.7, chloride 108, bicarbonate 24, BUN 58, creatinine 1 .89, phosphorus 6.4, magnesium 2.8. The patient's CBC was reviewed. IMAGING STUDIES: Imaging studies were reviewed. ASSESSMENT AND PLAN: 1. Anuric acute kidney injury with previously normal baseline creatinine. Etiology of acute kidney injury is secondary to acute tubular necrosis due to sepsis, shock, contrast contrast-associated neph ropathy. The patient was able to initiate on hemodialysis. The patient had dialysis yesterday, tole rated well. Plan is for dialysis daily for solute clearance and volume removal. 2. Mixed acid base disorder. The patient's ABG was reviewed. Continue dialysis on a high bicarbona te bath. 3. Anemia. Monitor hemoglobin and hematocrit levels. 4. Mineral bone disorder. Monitor calcium and phosphorus levels. Continue dialysis for solute linwood serenity. 5. Volume overload. Continue ultrafiltration with hemodialysis. 6. Sepsis, status post shock secondary to pneumonia and bacteremia. Continue current antibiotic reg imen. 7. Ventilator dependent respiratory failure. Vent settings and ABG was reviewed. Continue to monit or. 8. Cardiac arrest with ST elevated myocardial infarction. The patient is status post cardiac cathet erization with multiple PCIs. Continue medical management. Follow up with cardiology. 9. Acute encephalopathy, etiology is toxic metabolic. 10. Gastrointestinal and deep vein thrombosis prophylaxis. Please note I spent over 30 minutes of critical care time with this patient. Dictated By: BHUMI REDDY DO NR/NTS Conf#: [id number] DID#: [id number] CC: DANIAL TUCKER MD; THOMAS RILEY MD; LAUREN GREWAL MD;*End*
--- NOTE | 2018-08-13 09:06 | CONS ---
Consult Date/Type/Reason Admit Date/Time Aug 04, 2018 at 23:10 Initial Consult Date 08/05/18 Type of Consult Pulmonary Requesting Provider: HARPAL AGGARWAL MD Date/Time of Note DATE: 08/13/18 TIME: 09:03 Subjective Started on hemodialysis yesterday. Remains somnolent on mechanical ventilation. Continues Precedex and fentanyl. Tube feeding tolerated. Serous drainage noted from left ear. Objective Vital Signs Date Temp Pulse Resp B/P (MAP) Pulse Ox O2 O2 Flow FiO2 Time Delivery Rate 08/13/18 98.8 85 32 127/84 95 Mechanical 08:00 (98) Ventilator 08/13/18 40 05:18 Intake and Output 08/12/18 08/12/18 08/13/18 1515:00 23:00 07:00 IntakeIntake Total 518.30 ml 592.21 ml 536.07 ml OutputOutput Total 120 ml 2330 ml 15 ml BalanceBalance 398.30 ml -1737.79 ml 521.07 ml Exam GENERAL: Well-nourished well-developed lady orally intubated on mechanical ve ntilation VITAL SIGNS: per chart NECK: Supple. No JVD or lymphadenopathy. CARDIAC EXAM: S1, S2. No added sounds or murmurs. CHEST: clear bilaterally, No added sounds, rales or wheezes ABDOMEN: Soft, nontender. No guarding or rebound. EXTREMITIES: No cyanosis, clubbing or edema. NEUROLOGIC: Unable to assess Vent Setting Ventilator Support Mode: AC Fraction of Inspired Oxygen pe: 40 Positive End Expiratory Pressu: 8.0 Results/Medications Result Diagram: 08/13/180 08/13/18 0420 Results 24 hrs Laboratory Tests Test 08/12/18 10:00 08/12/18 20:28 08/13/18 04:20 08/13/18 04:51 Hepatitis B NEGATIVE Surface Antigen Hepatitis B Core NEGATIVE Total Antibody Hepatitis C NEGATIVE Antibody Bedside Glucose 139 White Blood Count 16.7 H Red Blood Count 3.18 L Hemoglobin 8.9 L Hematocrit 27.7 L Mean Corpuscular 87.1 Volume Mean Corpuscular 28.0 L Hemoglobin Mean Corpuscular 32.1 Hemoglobin Concen t Red Cell 17.3 H Distribution Width Platelet Count 68 #L Mean Platelet Volume Immature 4.900 H Granulocytes % Neutrophils % Segmented 80 H Neutrophils % (Manual) Band Neutrophils 7 H % (Manual) Lymphocytes % Lymphocytes % 12 L (Manual) Monocytes % Monocytes % 1 (Manual) Eosinophils % Basophils % Nucleated Red 1 H Blood Cells % Immature 0.820 H Granulocytes # Neutrophils # Neutrophils # 13.5 H (Manual) Band Neutrophils 1.1 H # Lymphocytes 2.0 (Manual) Lymphocytes # Monocytes # Monocytes # 0.1 L (Manual) Eosinophils # Basophils # Nucleated Red Blood Cells # Platelet Estimate DECREASED Giant Platelets 4 H Polychromasia 1+ Microcytosis 1+ Macrocytosis 1+ Sodium Level 141 Potassium Level 4.7 Chloride Level 108 Carbon Dioxide 24 Level Anion Gap 9 Blood Urea 58 H Nitrogen Creatinine 4.89 H Est Glomerular 10 L Filtrat Rate mL/min Glucose Level 122 # Calcium Level 7.9 L Phosphorus Level 6.4 #H Magnesium Level 2.8 H Lactic Acid Level 0.7 Test 08/13/18 05:00 Blood Gas Blood arterial Specimen Source Arterial Blood 08/13/2018 5:00:3 Date Drawn 9 AM Arterial Blood pH 7.328 L (Temp corrected) Arterial Blood 43.4 pCO2 (Temp correct) Arterial Blood 92.5 pO2 (Temp corrected) Arterial Blood 22.3 HCO3 Arterial Blood -3.5 L Base Excess Arterial Blood 96.5 Oxygen Saturation Dajuan Test ACCEPTAB Arterial Blood Left Radial Gas Puncture Site Arterial 0.4 Blood Carboxyhemo globin Arterial Blood 0.5 Methemoglobin Blood Gas A-a O2 142.8 H Differential Oxyhemoglobin 95.6 Percent Blood Gas 37.0 Temperature Blood Gas 32.0 Respiration Rate Blood Gas Actual 32 Respiration Rate Blood Gas VENT - AC Modality FiO2 40.0 Blood Gas Tidal 350.0 Volume Blood Gas Low 8.0 PEEP Setting Blood Gas [place] Notified Whom Blood Gas 08/13/2018 5:15:2 Notified Time 1 AM Medications Current Medications Norepinephrine 250 ml @ 1.875 mls/ hr TITRATE IV Last administered on 08/10/18at 00:41; Admin Dose 5.625 MLS/HR; Start 08/04/18 at 23:15 Ticagrelor (Brilinta) 90 mg BID PO Last administered on 08/13/18at 08:22; Admin Dose 90 MG; Start 08/05/18 at 09:00 Morphine Sulfate (morphine) 1 mg Q1H PRN IV PAIN Last administered on 08/05/18at 00:55; Admin Dose 1 MG; Start 08/04/18 at 23:30 Docusate Sodium (Colace) 100 mg BID PO Last administered on 08/12/18 20:12; Admin Dose 100 MG; Start 08/05/18 at 09:00 Atorvastatin Calcium (Lipitor) 80 mg DAILY@21 PO Last administered on 08/12/18 20:12; Admin Dose 80 MG; Start 08/05/18 at 21:00 Nitroglycerin/ Dextrose 250 ml @ 1.5 mls/hr TITRATE IV Last administered on 08/05/18 14:22; Admin Dose 72 MLS/HR; Start 08/05/18 at 01:00 Propofol 100 ml @ 2.772 mls/ hr Q12H IV Last administered on 08/09/18 04:37; Admin Dose 11.088 MLS/HR; Start 08/05/18 at 04:00; Status Hold Midazolam HCl 50 ml @ 1 mls/hr TITRATE IV Last administered on 08/05/18 19:22; Admin Dose 8 MLS/HR; Start 08/05/18 at 07:30 Miscellaneous Information 1 ea NOTE XX ; Start 08/05/18 at 09:00 Acetaminophen (Tylenol Supp) 650 mg Q4H PRN [place] TEMP > 37C Last administered on 08/09/18at 04:37; Admin Dose 650 MG; Start 08/05/18 at 11:00 Acetaminophen (Tylenol Liquid) 650 mg Q4H PRN PO TEMP > 37C Last administered on 08/11/18at 11:55; Admin Dose 650 MG; Start 08/05/18 at 11:00 Meperidine HCl (Demerol) 25 mg Q4H PRN IV POST OPERATIVE SHIVERING Last administered on 08/05/18 16:31; Admin Dose 25 MG; Start 08/05/18 at 11:00 Eye Lubricant (Akwa Oint) 1 applic Q6 BOTH EYES Last administered on 08/13/18 05:33; Admin Dose 1 APPLIC; Start 08/05/18 at 12:00 Eye Lubricant (Artificial Tears Oph) 2 drop Q6 BOTH EYES Last administered on 08/13/18 05:33; Admin Dose 2 DROP; Start 08/05/18 at 12:00 Insulin Human Regular 100 unit/ Sodium Chloride 100 ml @ 0 mls/hr PER PROTOCOL IV ; Start 08/05/18 at 12:00 Miscellaneous Information (* Miscellaneous Pharmacy Order) Treatment of Hypoglycemia: 1.BG 51... Per protocol XX ; Start 08/05/18 at 12:00 Dextrose (D50w Syringe) 25 ml Q15M PRN IV .DECREASED GLUCOSE; Start 08/05/18 at 12:00 Dextrose (D50w Syringe) 50 ml Q15M PRN IV .DECREASED GLUCOSE; Start 08/05/18 at 12:00 Fentanyl 100 ml @ 2.5 mls/hr TITRATE IV Last administered on 08/13/18 03:07; Admin Dose 7.5 MLS/HR; Start 08/05/18 at 12:00 Meperidine HCl (Demerol) 12.5 mg Q2H PRN IV POST OPERATIVE SHIVERING; Start 08/05/18 at 17:00 Aspirin (Aspirin) 81 mg DAILY NGT Last administered on 08/13/18 08:21; Admin Dose 81 MG; Start 08/06/18 at 09:00 Diagnostic Test (Pha) (Accu-Chek) 1 ea Q12 XX Last administered on 08/11/18 08:40; Admin Dose 1 EA; Start 08/06/18 at 21:00 Carvedilol (Coreg) 6.25 mg QID PO Last administered on 08/13/18 08:21; Admin Dose 6.25 MG; Start 08/08/18 at 09:00 Multivitamins (Multivitamin) 30 ml DAILY NGT Last administered on 08/13/18 08:21; Admin Dose 30 ML; Start 08/09/18 at 09:00 Zinc Sulfate (Zinc Sulfate) 220 mg DAILY NGT Last administered on 08/13/18 08:20; Admin Dose 220 MG; Start 08/09/18 at 09:00 Folic Acid (Folic Acid) 1 mg DAILY NGT Last administered on 08/13/18 08:20; Admin Dose 1 MG; Start 08/09/18 at 09:00 Ascorbic Acid (Vitamin C) 500 mg DAILY NGT Last administered on 08/13/18 08:21; Admin Dose 500 MG; Start 08/09/18 at 09:00 Dexmedetomidine HCl 200 mcg/ Sodium Chloride 50 ml @ 4.62 mls/hr TITRATE IV Last administered on 08/13/18 05:41; Admin Dose 16.17 MLS/HR; Start 08/09/18 at 11:30 Albuterol (Ventolin Hfa) 4 puff Q6HWA RESP THERAPY INH Last administered on 08/12/18at 19:37; Admin Dose 4 PUFF; Start 08/09/18 at 14:00 Ipratropium [place] (Atrovent Hfa) 4 puff Q6H RESP THERAPY INH Last administered on 08/13/18 01:23; Admin Dose 4 PUFF; Start 08/09/18 at 14:00 Vancomycin HCl (Vanco Iv Per Pharmacy) VANCOMYCIN PER PHARMACY PER PROTOCOL XX ; Start 08/10/18 at 01:30 Piperacillin Sod/ Tazobactam Sod 50 ml @ 100 mls/hr Q8 IVPB Last administered on 08/13/18 05:33; Admin Dose 100 MLS/HR; Start 08/10/18 at 14:00 IV Flush (NS 10 ml) 10 ml PRN PRN IV IV PROTOCOL; Start 08/11/18 at 16:30 Lansoprazole (Prevacid) 30 mg 0600,1800 PEG Last administered on 08/13/18 05:3 3; Admin Dose 30 MG; Start 08/11/18 at 18:28 Heparin Sodium (Porcine) (Heparin (1000 Units/ml)) 3,000 unit PRN PRN CATHETER Dialysis Last administered on 08/12/18at 15:44; Admin Dose 3,000 UNIT; Start 08/12/18 at 14:30 Assessment/Plan Hospital Course (Demo Recall) IMP: 1. Ventricular Fibrillation Arrest--s/p ROSC 2/2 STEMI s/p PCI status post hypothermia protocol. Multivessel coronary artery disease status post stent placement x3 2. STEMI, Status post stent x3 placement. 3. 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 Hypoxemic respiratory failure/ARDS 5. HUSEYIN--likely ATN 6. Ischemic hepatopathy--2/2 arrest 7. Metabolic acidosis--2/2 arrest 8. Anemia 9 Thrombocytopenia RECS: 1. Neuro evaluation 2. Consider EEG 3. Allow for permissive hypercapnia given poor lung/chest wall compliance (Pplat ~ 38). 4. Continue PEEP 8 cm H20 5. Continue Abx 6. PICC line placed; CVC removed. 7. Hemodialysis per nephrology 8. Swab of left ear Critical care time 40 minutes. CHINO ANDERSON MD, [facility] Aug 13, 2018 09:06
[2018-08-13] MEDS: ACCU-CHEK XX SCH ×2 (09:13→21:00)
[2018-08-13] MEDS: ALBUTEROL HFA 8 GM INHALER INH SCH ×3 (09:36→20:27)
--- NOTE | 2018-08-13 10:09 | PN ---
Date/Time of Note Date/Time of Note DATE: 08/13/18 TIME: 10:04 Objective Vitals Vital Signs Date Temp Pulse Resp B/P (MAP) Pulse Ox O2 O2 Flow FiO2 Time Delivery Rate 08/13/18 85 08:00 08/13/18 98.8 32 127/84 95 Mechanical 08:00 (98) Ventilator 08/13/18 40 05:18 Intake and Output 08/12/18 08/12/18 08/13/18 1515:00 23:00 07:00 IntakeIntake Total 518.30 ml 592.21 ml 536.07 ml OutputOutput Total 120 ml 2330 ml 15 ml BalanceBalance 398.30 ml -1737.79 ml 521.07 ml Results Result Diagram: 08/13/18 0420 08/13/18 0420 Medications Medications Current Medications Norepinephrine 250 ml @ 1.875 mls/ hr TITRATE IV Last administered on 08/10/18 00:41; Admin Dose 5.625 MLS/HR; Start 08/04/18 at 23:15 Ticagrelor (Brilinta) 90 mg BID PO Last administered on 08/13/18 08:22; Admin Dose 90 MG; Start 08/05/18 at 09:00 Morphine Sulfate (morphine) 1 mg Q1H PRN IV PAIN Last administered on 08/05/18 00:55; Admin Dose 1 MG; Start 08/04/18 at 23:30 Docusate Sodium (Colace) 100 mg BID PO Last administered on 08/12/18 20:12; Admin Dose 100 MG; Start 08/05/18 at 09:00 Atorvastatin Calcium (Lipitor) 80 mg DAILY@21 PO Last administered on 08/12/18 20:12; Admin Dose 80 MG; Start 08/05/18 at 21:00 Nitroglycerin/ Dextrose 250 ml @ 1.5 mls/hr TITRATE IV Last administered on 08/05/18 14:22; Admin Dose 72 MLS/HR; Start 08/05/18 at 01:00 Propofol 100 ml @ 2.772 mls/ hr Q12H IV Last administered on 08/09/18 04:37; Admin Dose 11.088 MLS/HR; Start 08/05/18 at 04:00; Status Hold Midazolam HCl 50 ml @ 1 mls/hr TITRATE IV Last administered on 08/05/18 19:22; Admin Dose 8 MLS/HR; Start 08/05/18 at 07:30 Miscellaneous Information 1 ea NOTE XX ; Start 08/05/18 at 09:00 Acetaminophen (Tylenol Supp) 650 mg Q4H PRN [place] TEMP > 37C Last administered on 08/09/18at 04:37; Admin Dose 650 MG; Start 08/05/18 at 11:00 Acetaminophen (Tylenol Liquid) 650 mg Q4H PRN PO TEMP > 37C Last administered on 08/11/18at 11:55; Admin Dose 650 MG; Start 08/05/18 at 11:00 Meperidine HCl (Demerol) 25 mg Q4H PRN IV POST OPERATIVE SHIVERING Last administered on 08/05/18at 16:31; Admin Dose 25 MG; Start 08/05/18 at 11:00 Eye Lubricant (Akwa Oint) 1 applic Q6 BOTH EYES Last administered on 08/13/18 09:14; Admin Dose 1 APPLIC; Start 08/05/18 at 12:00 Eye Lubricant (Artificial Tears Oph) 2 drop Q6 BOTH EYES Last administered on 08/13/18 09:14; Admin Dose 2 DROP; Start 08/05/18 at 12:00 Insulin Human Regular 100 unit/ Sodium Chloride 100 ml @ 0 mls/hr PER PROTOCOL IV ; Start 08/05/18 at 12:00 Miscellaneous Information (* Miscellaneous Pharmacy Order) Treatment of Hypoglycemia: 1.BG 51... Per protocol XX ; Start 08/05/18 at 12:00 Dextrose (D50w Syringe) 25 ml Q15M PRN IV .DECREASED GLUCOSE; Start 08/05/18 at 12:00 Dextrose (D50w Syringe) 50 ml Q15M PRN IV .DECREASED GLUCOSE; Start 08/05/18 at 12:00 Fentanyl 100 ml @ 2.5 mls/hr TITRATE IV Last administered on 08/13/18at 03:07; Admin Dose 7.5 MLS/HR; Start 08/05/18 at 12:00 Meperidine HCl (Demerol) 12.5 mg Q2H PRN IV POST OPERATIVE SHIVERING; Start 08/05/18 at 17:00 Aspirin (Aspirin) 81 mg DAILY NGT Last administered on 08/13/18 08:21; Admin Dose 81 MG; Start 08/06/18 at 09:00 Diagnostic Test (Pha) (Accu-Chek) 1 ea Q12 XX Last administered on 08/13/18 09:13; Admin Dose 1 EA; Start 08/06/18 at 21:00 Carvedilol (Coreg) 6.25 mg QID PO Last administered on 08/13/18 08:21; Admin Dose 6.25 MG; Start 08/08/18 at 09:00 Multivitamins (Multivitamin) 30 ml DAILY NGT Last administered on 08/13/18 08:21; Admin Dose 30 ML; Start 08/09/18 at 09:00 Zinc Sulfate (Zinc Sulfate) 220 mg DAILY NGT Last administered on 08/13/18 08:20; Admin Dose 220 MG; Start 08/09/18 at 09:00 Folic Acid (Folic Acid) 1 mg DAILY NGT Last administered on 08/13/18 08:20; Admin Dose 1 MG; Start 08/09/18 at 09:00 Ascorbic Acid (Vitamin C) 500 mg DAILY NGT Last administered on 08/13/18 08:21; Admin Dose 500 MG; Start 08/09/18 at 09:00 Dexmedetomidine HCl 200 mcg/ Sodium Chloride 50 ml @ 4.62 mls/hr TITRATE IV Last administered on 08/13/18 05:41; Admin Dose 16.17 MLS/HR; Start 08/09/18 at 11:30 Albuterol (Ventolin Hfa) 4 puff Q6HWA RESP THERAPY INH Last administered on 08/12/18 19:37; Admin Dose 4 PUFF; Start 08/09/18 at 14:00 Ipratropium [place] (Atrovent Hfa) 4 puff Q6H RESP THERAPY INH Last administered on 08/13/18 01:23; Admin Dose 4 PUFF; Start 08/09/18 at 14:00 Vancomycin HCl (Vanco Iv Per Pharmacy) VANCOMYCIN PER PHARMACY PER PROTOCOL XX ; Start 08/10/18 at 01:30 Piperacillin Sod/ Tazobactam Sod 50 ml @ 100 mls/hr Q8 IVPB Last administered on 08/13/18 05:33; Admin Dose 100 MLS/HR; Start 08/10/18 at 14:00 IV Flush (NS 10 ml) 10 ml PRN PRN IV IV PROTOCOL; Start 08/11/18 at 16:30 Lansoprazole (Prevacid) 30 mg 0600,1800 PEG Last administered on 08/13/18at 05:33; Admin Dose 30 MG; Start 08/11/18 at 18:28 Heparin Sodium (Porcine) (Heparin (1000 Units/ml)) 3,000 unit PRN PRN CATHETER Dialysis Last administered on 08/12/18at 15:44; Admin Dose 3,000 UNIT; Start 08/12/18 at 14:30 VTE Prophylaxis Risk score (from [facility] [place])>0 risk: 9 SCD applied (from [facility] [place]): No SCD contraindication: other Lines/Catheters IV Catheter Type: Bajwa in Place: Yes Cont'd bajwa catheter reason: terminal illness/intractable pain Assessment/Plan Hospital Course Subjective All questions answered to family at bedside, patient's family concerned of bleeding from left ear that is mild Objective Physical exam General: Patient is laying in bed intubated and sedated Mentation: Patient is not alert and oriented 4, Head: Normocephalic atraumatic Eyes: EOMI, pupils reactive to light Ears: Left auditory canal has dried up blood, unable to properly visualize tympanic membrane, right auditory canal clear Neck: Supple, nontender, midline Respiratory: Coarse to auscultation bilaterally Cardiovascular: regular rate, no obvious murmurs Gastrointestinal: non-tender to palpation, bowel sounds heard. Neurological: Unable to assess secondary to sedation Skin: No new skin lesions Assessment/Plan 1. Acute toxic/metabolic encephalopathy - Neurology recs appreciated and CT head noted - EEG ordered as well given patient remains obtunded even off sedation -At this time it appears that the initial incident led to anoxic encephalopathy due to unknown downtime during cardiac arrest before she came into the hospital. - monitor for improvement in neurological status 2. Septic shock secondary to PNA and bacteremia - WBC to be monitored closely - Blood cultures and sputum culture results noted. Will repeat blood cultures . - ID consulted for antibiotic recommendations. - Continue current antibiotics and pressor support with goal MAP> 65 3. Bilateral Pneumonia - CXR noted - Pulm on board and appreciate recommendations. Will continue current management and monitor for improvement in respiratory status - continue bronchodilators -ID on board Left auditory canal bleeding -Very mild, only dried blood at this time, however monitor closely as patient is on antiplatelet therapy due to coronary artery disease -Questionable otitis externa will defer to infectious disease for choice of proper eardrops Anemia -Mild drop in hemoglobin, will need to monitor closely as cardiology as previously mentioned patient is on dual antiplatelet therapy, if continues to drop, cardiology may consider switching Brilinta to Plavix. 4. CAD s/p PCI x2 - Cardiology on board and appreciate recommendations. Stressed importance of continuing DAPT given recent stent placements and high risk of restenosis - s/p emergent Cath 08/05 with successful PTCA and stenting of proximal and mid LAD, PTCA of the large first diagonal and thrombectomy of the LAD - Repeat PCI on 08/07 performed with stenting to LCx - plans for stenting of RCA prior to discharge - ECHO results noted 5. Acute hypoxic respiratory failure - exacerbated by #1 - Pulm on board for vent management. appreciate consultation 6. HUSEYIN- worsening - Nephrology on board and appreciate recommendations. -Now on HD - secondary to septic shock, ATN vs prerenal vs contrast induced nephropathy - will avoid nephrotoxic agents 7. Diabetes - A1c noted 8. Transaminitis- improving - most likely secondary to hypoperfusion - continue monitoring LFTs - RUQ US noted 9. V-fib cardiac arrest secondary to STEMI - Completed hypothermia protocol - unknown how long patient was down for in the field 10. Disposition - Continue close monitoring in ICU while requiring vent management. >30 minutes of critical care time spent with patient and family at bedside HARPAL PEDROZA Aug 13, 2018 10:09
--- NOTE | 2018-08-13 11:57 | CONS ---
Assessment/Plan Assessment/Plan Hospital Course 38 yo F w/ reported Hx of HTN and DM2 who is admitted to the [facility] ICU s/p cardiac arrest. She is now s/p cardiac catheterization w/ 2 coronary stents. now s/p targeted temperature therapy. Neurology is consulted given persistent encephalopathy...which is likely multifactorial -- toxic-metabolic, medications...hypoxic-ischemic? CTH is is notable for scalp swelling, without obvious acute intracranial path ology. EEG is without epileptiform activity P: Add ammonia level Limit sedating medications where possible Continued medical management per primary Will follow clinically Consultation Date/Type/Reason Admit Date/Time Aug 04, 2018 at 23:10 Type of Consult Neurology Reason for Consultation ams s/p cardiac arrest Requesting Provider: HARPAL AGGARWAL MD Date/Time of Note DATE: 08/13/18 TIME: 11:57 Hx of Present Illness The pt is currently is unable to contribute a hx. It is elsewhere noted: Hx of Present Illness This is a 38-year-old female with a history of hypertension and diabetes who was brought to the ER after patient had a cardiac arrest. Currently she is intubated and as such information gathered from chart review and from the ER physician. Reportedly, patient has been complaining of chest pain the whole day. All of a sudden, she passed out while she was at home. When EMS arrived, she was in V-fib cardiac arrest. ROSC after 2 rounds of epinephrine and defib x 2. Patient was found to be in STEMI. She was emergently taken to the [facility] and now she is status post Successful PTCA and stenting of proximal and mid LAD, PTCA of the large first diagonal and thrombectomy of the LAD. Her initial troponin was 0.140. Lab also showing metabolic acidosis with a bicarb of 11. Creatinine 1.75. Glucose almost 270. Hemoglobin 11. Aminotransferases in the 200s range. Subjective hx not possible: pt non-verbal, pt critical Exam/Review of Systems Exam Vitals Vital Signs Date Temp Pulse Resp B/P (MAP) Pulse Ox O2 O2 Flow FiO2 Time Delivery Rate 08/13/18 83 11:45 08/13/18 28 122/83 96 Mechanical 10:00 (96) Ventilator 08/13/18 98.8 08:00 08/13/18 40 05:18 Intake and Output 08/12/18 08/12/18 08/13/18 1515:00 23:00 07:00 IntakeIntake Total 518.30 ml 592.21 ml 559.74 ml OutputOutput Total 120 ml 2330 ml 15 ml BalanceBalance 398.30 ml -1737.79 ml 544.74 ml Exam PE: Gen Appearance: No Apparent Distress HEENT: Intubated Cardiovascular: Regular rate Abdomen: Soft Extremities: Dry NE: The patient was comatose. Cranial nerve examination was limited by mental status. Pupils were equal and reactive to light. There was no afferent pupillary defect. Funduscopic examination was limited. Face was grossly symmetric, w/ present corneal and coug h reflexes. Tone was normal. Muscle bulk was normal. I did not see fasciculations. The patient grimaced to noxious stimuli, but did not withdraw to noxious stimulation x 4. Coordination and gait testing was limited by mental status. Arm and leg reflexes were within normal limits and symmetric. Alvarez's sign was absent. Plantar responses were flexor. Results Result Diagram: 08/13/1841908/13/18 042 Results 24hrs Laboratory Tests Test 08/12/18 20:28 08/13/18 04:20 08/13/18 04:51 08/13/18 05:00 Bedside Glucose 139 White Blood Count 16.7 H Red Blood Count 3.18 L Hemoglobin 8.9 L Hematocrit 27.7 L Mean Corpuscular 87.1 Volume Mean Corpuscular 28.0 L Hemoglobin Mean Corpuscular 32.1 Hemoglobin Concen t Red Cell 17.3 H Distribution Width Platelet Count 68 #L Mean Platelet Volume Immature 4.900 H Granulocytes % Neutrophils % Segmented 80 H Neutrophils % (Manual) Band Neutrophils 7 H % (Manual) Lymphocytes % Lymphocytes % 12 L (Manual) Monocytes % Monocytes % 1 (Manual) Eosinophils % Basophils % Nucleated Red 1 H Blood Cells % Immature 0.820 H Granulocytes # Neutrophils # Neutrophils # 13.5 H (Manual) Band Neutrophils 1.1 H # Lymphocytes 2.0 (Manual) Lymphocytes # Monocytes # Monocytes # 0.1 L (Manual) Eosinophils # Basophils # Nucleated Red Blood Cells # Platelet Estimate DECREASED Giant Platelets 4 H Polychromasia 1+ Microcytosis 1+ Macrocytosis 1+ Sodium Level 141 Potassium Level 4.7 Chloride Level 108 Carbon Dioxide 24 Level Anion Gap 9 Blood Urea 58 H Nitrogen Creatinine 4.89 H Est Glomerular 10 L Filtrat Rate mL/min Glucose Level 122 # Calcium Level 7.9 L Phosphorus Level 6.4 #H Magnesium Level 2.8 H Lactic Acid Level 0.7 Blood Gas Blood arterial Specimen Source Arterial Blood 08/13/2018 5:00:3 Date Drawn 9 AM Arterial Blood pH 7.328 L (Temp corrected) Arterial Blood 43.4 pCO2 (Temp correct) Arterial Blood 92.5 pO2 (Temp corrected) Arterial Blood 22.3 HCO3 Arterial Blood -3.5 L Base Excess Arterial Blood 96.5 Oxygen Saturation Dajuan Test ACCEPTAB Arterial Blood Left Radial Gas Puncture Site Arterial 0.4 Blood Carboxyhemo globin Arterial Blood 0.5 Methemoglobin Blood Gas A-a O2 142.8 H Differential Oxyhemoglobin 95.6 Percent Blood Gas 37.0 Temperature Blood Gas 32.0 Respiration Rate Blood Gas Actual 32 Respiration Rate Blood Gas VENT - AC Modality FiO2 40.0 Blood Gas Tidal 350.0 Volume Blood Gas Low 8.0 PEEP Setting Blood Gas MI Notified Whom Blood Gas 08/13/2018 5:15:2 Notified Time 1 AM Test 08/13/18 09:13 Bedside Glucose 128 Medications Medication Current Medications Norepinephrine 250 ml @ 1.875 mls/ hr TITRATE IV Last administered on 08/10/18 00:41; Admin Dose 5.625 MLS/HR; Start 08/04/18 at 23:15 Ticagrelor (Brilinta) 90 mg BID PO Last administered on 08/13/18 08:22; Admin Dose 90 MG; Start 08/05/18 at 09:00 Morphine Sulfate (morphine) 1 mg Q1H PRN IV PAIN Last administered on 08/05/18at 00:55; Admin Dose 1 MG; Start 08/04/18 at 23:30 Docusate Sodium (Colace) 100 mg BID PO Last administered on 08/12/18 20:12; Admin Dose 100 MG; Start 08/05/18 at 09:00 Atorvastatin Calcium (Lipitor) 80 mg DAILY@21 PO Last administered on 08/12/18 20:12; Admin Dose 80 MG; Start 08/05/18 at 21:00 Nitroglycerin/ Dextrose 250 ml @ 1.5 mls/hr TITRATE IV Last administered on 08/05/18at 14:22; Admin Dose 72 MLS/HR; Start 08/05/18 at 01:00 Propofol 100 ml @ 2.772 mls/ hr Q12H IV Last administered on 08/09/18 04:37; Admin Dose 11.088 MLS/HR; Start 08/05/18 at 04:00; Status Hold Midazolam HCl 50 ml @ 1 mls/hr TITRATE IV Last administered on 08/05/18 19:22; Admin Dose 8 MLS/HR; Start 08/05/18 at 07:30 Miscellaneous Information 1 ea NOTE XX ; Start 08/05/18 at 09:00 Acetaminophen (Tylenol Supp) 650 mg Q4H PRN OK TEMP > 37C Last administered on 08/09/18 04:37; Admin Dose 650 MG; Start 08/05/18 at 11:00 Acetaminophen (Tylenol Liquid) 650 mg Q4H PRN PO TEMP > 37C Last administered on 08/11/18at 11:55; Admin Dose 650 MG; Start 08/05/18 at 11:00 Meperidine HCl (Demerol) 25 mg Q4H PRN IV POST OPERATIVE SHIVERING Last administered on 08/05/18at 16:31; Admin Dose 25 MG; Start 08/05/18 at 11:00 Eye Lubricant (Akwa Oint) 1 applic Q6 BOTH EYES Last administered on 08/13/18 09:14; Admin Dose 1 APPLIC; Start 08/05/18 at 12:00 Eye Lubricant (Artificial Tears Oph) 2 drop Q6 BOTH EYES Last administered on 08/13/18 09:14; Admin Dose 2 DROP; Start 08/05/18 at 12:00 Insulin Human Regular 100 unit/ Sodium Chloride 100 ml @ 0 mls/hr PER PROTOCOL IV ; Start 08/05/18 at 12:00 Miscellaneous Information (* Miscellaneous Pharmacy Order) Treatment of Hypoglycemia: 1.BG 51... Per protocol XX ; Start 08/05/18 at 12:00 Dextrose (D50w Syringe) 25 ml Q15M PRN IV .DECREASED GLUCOSE; Start 08/05/18 at 12:00 Dextrose (D50w Syringe) 50 ml Q15M PRN IV .DECREASED GLUCOSE; Start 08/05/18 at 12:00 Fentanyl 100 ml @ 2.5 mls/hr TITRATE IV Last administered on 3/25/19at 03:07; Admin Dose 7.5 MLS/HR; Start 08/05/18 at 12:00 Meperidine HCl (Demerol) 12.5 mg Q2H PRN IV POST OPERATIVE SHIVERING; Start 08/05/18 at 17:00 Aspirin (Aspirin) 81 mg DAILY NGT Last administered on 08/13/18 08:21; Admin Dose 81 MG; Start 08/06/18 at 09:00 Diagnostic Test (Pha) (Accu-Chek) 1 ea Q12 XX Last administered on 08/13/18 09:13; Admin Dose 1 EA; Start 08/06/18 at 21:00 Carvedilol (Coreg) 6.25 mg QID PO Last administered on 08/13/18 08:21; Admin Dose 6.25 MG; Start 08/08/18 at 09:00 Multivitamins (Multivitamin) 30 ml DAILY NGT Last administered on 08/13/18 08:21; Admin Dose 30 ML; Start 08/09/18 at 09:00 Zinc Sulfate (Zinc Sulfate) 220 mg DAILY NGT Last administered on 08/13/18 08:20; Admin Dose 220 MG; Start 08/09/18 at 09:00 Folic Acid (Folic Acid) 1 mg DAILY NGT Last administered on 08/13/18 08:20; Admin Dose 1 MG; Start 08/09/18 at 09:00 Ascorbic Acid (Vitamin C) 500 mg DAILY NGT Last administered on 08/13/18 08:21; Admin Dose 500 MG; Start 08/09/18 at 09:00 Dexmedetomidine HCl 200 mcg/ Sodium Chloride 50 ml @ 4.62 mls/hr TITRATE IV Last administered on 08/13/18 05:41; Admin Dose 16.17 MLS/HR; Start 08/09/18 at 11:30 Albuterol (Ventolin Hfa) 4 puff Q6HWA RESP THERAPY INH Last administered on 08/12/18 19:37; Admin Dose 4 PUFF; Start 08/09/18 at 14:00 Ipratropium [place] (Atrovent Hfa) 4 puff Q6H RESP THERAPY INH Last administered on 08/13/18 01:23; Admin Dose 4 PUFF; Start 08/09/18 at 14:00 Vancomycin HCl (Vanco Iv Per Pharmacy) VANCOMYCIN PER PHARMACY PER PROTOCOL XX ; Start 08/10/18 at 01:30 Piperacillin Sod/ Tazobactam Sod 50 ml @ 100 mls/hr Q8 IVPB Last administered on 08/13/18 05:33; Admin Dose 100 MLS/HR; Start 08/10/18 at 14:00 IV Flush (NS 10 ml) 10 ml PRN PRN IV IV PROTOCOL; Start 08/11/18 at 16:30 Lansoprazole (Prevacid) 30 mg 0600,1800 PEG Last administered on 08/13/18 05:33; Admin Dose 30 MG; Start 08/11/18 at 18:28 Heparin Sodium (Porcine) (Heparin (1000 Units/ml)) 3,000 unit PRN PRN CATHETER Dialysis Last administered on 08/12/18at 15:44; Admin Dose 3,000 UNIT; Start 08/12/18 at 14:30 Past Medical History reviewed Medical History: coronary artery disease, diabetes, hypertension Medications Current Medications Norepinephrine 250 ml @ 1.875 mls/ hr TITRATE IV Last administered on 08/10/18 00:41; Admin Dose 5.625 MLS/HR; Start 08/04/18 at 23:15 Ticagrelor (Brilinta) 90 mg BID PO Last administered on 08/13/18 08:22; Admin Dose 90 MG; Start 08/05/18 at 09:00 Morphine Sulfate (morphine) 1 mg Q1H PRN IV PAIN Last administered on 08/05/18 00:55; Admin Dose 1 MG; Start 08/04/18 at 23:30 Docusate Sodium (Colace) 100 mg BID PO Last administered on 08/12/18 20:12; Admin Dose 100 MG; Start 08/05/18 at 09:00 Atorvastatin Calcium (Lipitor) 80 mg DAILY@21 PO Last administered on 08/12/18 20:12; Admin Dose 80 MG; Start 08/05/18 at 21:00 Nitroglycerin/ Dextrose 250 ml @ 1.5 mls/hr TITRATE IV Last administered on 14:22; Admin Dose 72 MLS/HR; Start 08/05/18 at 01:00 Propofol 100 ml @ 2.772 mls/ hr Q12H IV Last administered on 08/09/18 04:37; Admin Dose 11.088 MLS/HR; Start 08/05/18 at 04:00; Status Hold Midazolam HCl 50 ml @ 1 mls/hr TITRATE IV Last administered on 08/05/18 19:22; Admin Dose 8 MLS/HR; Start 08/05/18 at 07:30 Miscellaneous Information 1 ea NOTE XX ; Start 08/05/18 at 09:00 Acetaminophen (Tylenol Supp) 650 mg Q4H PRN OK TEMP > 37C Last administered on 08/09/18 04:37; Admin Dose 650 MG; Start 08/05/18 at 11:00 Acetaminophen (Tylenol Liquid) 650 mg Q4H PRN PO TEMP > 37C Last administered on 08/11/18 11:55; Admin Dose 650 MG; Start 08/05/18 at 11:00 Meperidine HCl (Demerol) 25 mg Q4H PRN IV POST OPERATIVE SHIVERING Last administered on 08/05/18 16:31; Admin Dose 25 MG; Start 08/05/18 at 11:00 Eye Lubricant (Akwa Oint) 1 applic Q6 BOTH EYES Last administered on 08/13/18 09:14; Admin Dose 1 APPLIC; Start 08/05/18 at 12:00 Eye Lubricant (Artificial Tears Oph) 2 drop Q6 BOTH EYES Last administered on 08/13/18 09:14; Admin Dose 2 DROP; Start 08/05/18 at 12:00 Insulin Human Regular 100 unit/ Sodium Chloride 100 ml @ 0 mls/hr PER PROTOCOL IV ; Start 08/05/18 at 12:00 Miscellaneous Information (* Miscellaneous Pharmacy Order) Treatment of Hypoglycemia: 1.BG 51... Per protocol XX ; Start 08/05/18 at 12:00 Dextrose (D50w Syringe) 25 ml Q15M PRN IV .DECREASED GLUCOSE; Start 08/05/18 at 12:00 Dextrose (D50w Syringe) 50 ml Q15M PRN IV .DECREASED GLUCOSE; Start 08/05/18 at 12:00 Fentanyl 100 ml @ 2.5 mls/hr TITRATE IV Last administered on 08/13/18 03:07; Admin Dose 7.5 MLS/HR; Start 08/05/18 at 12:00 Meperidine HCl (Demerol) 12.5 mg Q2H PRN IV POST OPERATIVE SHIVERING; Start 08/05/18 at 17:00 Aspirin (Aspirin) 81 mg DAILY NGT Last administered on 08/13/18 08:21; Admin Dose 81 MG; Start 08/06/18 at 09:00 Diagnostic Test (Pha) (Accu-Chek) 1 ea Q12 XX Last administered on 08/13/18 09:13; Admin Dose 1 EA; Start 08/06/18 at 21:00 Carvedilol (Coreg) 6.25 mg QID PO Last administered on 08/13/18 08:21; Admin Dose 6.25 MG; Start 08/08/18 at 09:00 Multivitamins (Multivitamin) 30 ml DAILY NGT Last administered on 08/13/18 08:21; Admin Dose 30 ML; Start 08/09/18 at 09:00 Zinc Sulfate (Zinc Sulfate) 220 mg DAILY NGT Last administered on 08/13/18 08:20; Admin Dose 220 MG; Start 08/09/18 at 09:00 Folic Acid (Folic Acid) 1 mg DAILY NGT Last administered on 08/13/18 08:20; Admin Dose 1 MG; Start 08/09/18 at 09:00 Ascorbic Acid (Vitamin C) 500 mg DAILY NGT Last administered on 08/13/18 08:21; Admin Dose 500 MG; Start 08/09/18 at 09:00 Dexmedetomidine HCl 200 mcg/ Sodium Chloride 50 ml @ 4.62 mls/hr TITRATE IV Last administered on 08/13/18 05:41; Admin Dose 16.17 MLS/HR; Start 08/09/18 at 11:30 Albuterol (Ventolin Hfa) 4 puff Q6HWA RESP THERAPY INH Last administered on 08/12/18 19:37; Admin Dose 4 PUFF; Start 08/09/18 at 14:00 Ipratropium [place] (Atrovent Hfa) 4 puff Q6H RESP THERAPY INH Last administered on 08/13/18 01:23; Admin Dose 4 PUFF; Start 08/09/18 at 14:00 Vancomycin HCl (Vanco Iv Per Pharmacy) VANCOMYCIN PER PHARMACY PER PROTOCOL XX ; Start 08/10/18 at 01:30 Piperacillin Sod/ Tazobactam Sod 50 ml @ 100 mls/hr Q8 IVPB Last administered on 08/13/18at 05:33; Admin Dose 100 MLS/HR; Start 08/10/18 at 14:00 IV Flush (NS 10 ml) 10 ml PRN PRN IV IV PROTOCOL; Start 08/11/18 at 16:30 Lansoprazole (Prevacid) 30 mg 0600,1800 PEG Last administered on 08/13/18at 05:33; Admin Dose 30 MG; Start 08/11/18 at 18:28 Heparin Sodium (Porcine) (Heparin (1000 Units/ml)) 3,000 unit PRN PRN CATHETER Dialysis Last administered on 08/12/18at 15:44; Admin Dose 3,000 UNIT; Start 08/12/18 at 14:30 Allergies: Coded Allergies: Unknown: Unable to obtain (Unverified , 08/04/18) Past Surgical History reviewed Past Surgical Hx: no surgical history, other Social History reviewed Alcohol Use: none Smoking Status: Never smoker Drug Use: none KAYCEE ESCOBEDO NP Aug 13, 2018 11:57 RANDY GARCIA Aug 13, 2018 14:08
[2018-08-13] MEDS: HEPARIN 1000 UNITS/ML 10 ML INJ CATHETER PRN (13:26)
--- NOTE | 2018-08-13 13:50 | CONS ---
Consult Date/Type/Reason Admit Date/Time Aug 04, 2018 at 23:10 Initial Consult Date 08/05/18 Type of Consultation: cv Requesting Provider: HARPAL AGGARWAL MD Date/Time of Note DATE: 08/13/18 TIME: 13:48 Subjective Interventional cardiology follow-up progress note/critical care Subjective: Events noted discussed with the staff and physicians. d/w sister Patient remains intubated on the vent and remains nonresponsive No V tachycardia or fibrillation. BP is stable off of pressors. no coffee ground emesis events noted s/p PCI 100% occluded LAD 08/04 S/P PCI LCX/ OM Objective: General: Obese female started with intubation on the vent HEENT: NC/AT. pupils are equal. round. NECK: . no stridor. CV: RRR. systolic murmur; no gallop or rubs. PULM: no wheezing + diffuse rhonchi. GI: Obese SOFT, NT, ND, no rebound or guarding Extremity: +B/L LE edema. no clubbing. neuro: Sedated Psych: Calm now rectal: deferred As: Right femoral NO BLEEDING or hematoma EKG August 06, 2018 was personally within normal sinus rhythm. T wave inversions anterior and inferior leads ECG 08/07: NSR ST T abn c/w ant/lat ischemia Chest x-ray done August 06 shows:No evidence for active cardiopulmonary disease. ECHO personally reviewed Normal left ventricular cavity size. Normal left ventricular wall thickness. Ejection fraction is visually estimated at 55-65 %. Normal appearance of the mitral valve. Mitral valve is not well visualized. No mitral valve regurgitation is seen. Aortic valve not well visualized. No aortic regurgitation. Normal appearance of the tricuspid valve. Unable to obtain RVSP due to minimal presence of tricuspid regurgitation. No evidence of tricuspid regurgitation. Normal pericardium with no significant pericardial effusion. suboptimal study. Objective Vitals Vital Signs Date Temp Pulse Resp B/P (MAP) Pulse Ox O2 O2 Flow FiO2 Time Delivery Rate 08/13/18 84 13:05 08/13/18 97.7 34 129/92 95 Mechanical 13:00 (104) Ventilator 08/13/18 40 05:18 Intake and Output 08/12/18 08/12/18 08/13/18 1515:00 23:00 07:00 IntakeIntake Total 518.30 ml 592.21 ml 559.74 ml OutputOutput Total 120 ml 2330 ml 15 ml BalanceBalance 398.30 ml -1737.79 ml 544.74 ml Results/Medications Result Diagram: 08/13/18 0420 08/13/18 0420 Results 24 hrs Laboratory Tests Test 08/12/18 20:28 08/13/18 04:20 08/13/18 04:51 08/13/18 05:00 Bedside Glucose 139 White Blood Count 16.7 H Red Blood Count 3.18 L Hemoglobin 8.9 L Hematocrit 27.7 L Mean Corpuscular 87.1 Volume Mean Corpuscular 28.0 L Hemoglobin Mean Corpuscular 32.1 Hemoglobin Concen t Red Cell 17.3 H Distribution Width Platelet Count 68 #L Mean Platelet Volume Immature 4.900 H Granulocytes % Neutrophils % Segmented 80 H Neutrophils % (Manual) Band Neutrophils 7 H % (Manual) Lymphocytes % Lymphocytes % 12 L (Manual) Monocytes % Monocytes % 1 (Manual) Eosinophils % Basophils % Nucleated Red 1 H Blood Cells % Immature 0.820 H Granulocytes # Neutrophils # Neutrophils # 13.5 H (Manual) Band Neutrophils 1.1 H # Lymphocytes 2.0 (Manual) Lymphocytes # Monocytes # Monocytes # 0.1 L (Manual) Eosinophils # Basophils # Nucleated Red Blood Cells # Platelet Estimate DECREASED Giant Platelets 4 H Polychromasia 1+ Microcytosis 1+ Macrocytosis 1+ Sodium Level 141 Potassium Level 4.7 Chloride Level 108 Carbon Dioxide 24 Level Anion Gap 9 Blood Urea 58 H Nitrogen Creatinine 4.89 H Est Glomerular 10 L Filtrat Rate mL/min Glucose Level 122 # Calcium Level 7.9 L Phosphorus Level 6.4 #H Magnesium Level 2.8 H Lactic Acid Level 0.7 Blood Gas Blood arterial Specimen Source Arterial Blood 08/13/2018 5:00:3 Date Drawn 9 AM Arterial Blood pH 7.328 L (Temp corrected) Arterial Blood 43.4 pCO2 (Temp correct) Arterial Blood 92.5 pO2 (Temp corrected) Arterial Blood 22.3 HCO3 Arterial Blood -3.5 L Base Excess Arterial Blood 96.5 Oxygen Saturation Dajuan Test ACCEPTAB Arterial Blood Left Radial Gas Puncture Site Arterial 0.4 Blood Carboxyhemo globin Arterial Blood 0.5 Methemoglobin Blood Gas A-a O2 142.8 H Differential Oxyhemoglobin 95.6 Percent Blood Gas 37.0 Temperature Blood Gas 32.0 Respiration Rate Blood Gas Actual 32 Respiration Rate Blood Gas VENT - AC Modality FiO2 40.0 Blood Gas Tidal 350.0 Volume Blood Gas Low 8.0 PEEP Setting Blood Gas MD Notified Whom Blood Gas 08/13/2018 5:15:2 Notified Time 1 AM Test 08/13/18 09:13 Bedside Glucose 128 Medications Current Medications Norepinephrine 250 ml @ 1.875 mls/ hr TITRATE IV Last administered on 08/10/18 00:41; Admin Dose 5.625 MLS/HR; Start 08/04/18 at 23:15 Ticagrelor (Brilinta) 90 mg BID PO Last administered on 08/13/18 08:22; Admin Dose 90 MG; Start 08/05/18 at 09:00 Morphine Sulfate (morphine) 1 mg Q1H PRN IV PAIN Last administered on 08/05/18 00:55; Admin Dose 1 MG; Start 08/04/18 at 23:30 Docusate Sodium (Colace) 100 mg BID PO Last administered on 08/12/18 20:12; Admin Dose 100 MG; Start 08/05/18 at 09:00 Atorvastatin Calcium (Lipitor) 80 mg DAILY@21 PO Last administered on 08/12/18 20:12; Admin Dose 80 MG; Start 08/05/18 at 21:00 Nitroglycerin/ Dextrose 250 ml @ 1.5 mls/hr TITRATE IV Last administered on 08/05/18 14:22; Admin Dose 72 MLS/HR; Start 08/05/18 at 01:00 Propofol 100 ml @ 2.772 mls/ hr Q12H IV Last administered on 08/09/18 04:37; Admin Dose 11.088 MLS/HR; Start 08/05/18 at 04:00 Midazolam HCl 50 ml @ 1 mls/hr TITRATE IV Last administered on 08/05/18 19:22; Admin Dose 8 MLS/HR; Start 08/05/18 at 07:30 Miscellaneous Information 1 ea NOTE XX ; Start 08/05/18 at 09:00 Acetaminophen (Tylenol Supp) 650 mg Q4H PRN [place] TEMP > 37C Last administered on 08/09/18 04:37; Admin Dose 650 MG; Start 08/05/18 at 11:00 Acetaminophen (Tylenol Liquid) 650 mg Q4H PRN PO TEMP > 37C Last administered on 08/11/18 11:55; Admin Dose 650 MG; Start 08/05/18 at 11:00 Meperidine HCl (Demerol) 25 mg Q4H PRN IV POST OPERATIVE SHIVERING Last administered on 08/05/18 16:31; Admin Dose 25 MG; Start 08/05/18 at 11:00 Eye Lubricant (Akwa Oint) 1 applic Q6 BOTH EYES Last administered on 08/13/18 09:14; Admin Dose 1 APPLIC; Start 08/05/18 at 12:00 Eye Lubricant (Artificial Tears Oph) 2 drop Q6 BOTH EYES Last administered on 08/13/18 09:14; Admin Dose 2 DROP; Start 08/05/18 at 12:00 Insulin Human Regular 100 unit/ Sodium Chloride 100 ml @ 0 mls/hr PER PROTOCOL IV ; Start 08/05/18 at 12:00 Miscellaneous Information (* Miscellaneous Pharmacy Order) Treatment of Hypoglycemia: 1.BG 51... Per protocol XX ; Start 08/05/18 at 12:00 Dextrose (D50w Syringe) 25 ml Q15M PRN IV .DECREASED GLUCOSE; Start 08/05/18 at 12:00 Dextrose (D50w Syringe) 50 ml Q15M PRN IV .DECREASED GLUCOSE; Start 08/05/18 at 12:00 Fentanyl 100 ml @ 2.5 mls/hr TITRATE IV Last administered on 08/13/18 03:07; Admin Dose 7.5 MLS/HR; Start 08/05/18 at 12:00 Meperidine HCl (Demerol) 12.5 mg Q2H PRN IV POST OPERATIVE SHIVERING; Start 08/05/18 at 17:00 Aspirin (Aspirin) 81 mg DAILY NGT Last administered on 08/13/18 08:21; Admin Dose 81 MG; Start 08/06/18 at 09:00 Diagnostic Test (Pha) (Accu-Chek) 1 ea Q12 XX Last administered on 08/13/18 09:13; Admin Dose 1 EA; Start 08/06/18 at 21:00 Carvedilol (Coreg) 6.25 mg QID PO Last administered on 08/13/18 13:31; Admin Dose 6.25 MG; Start 08/08/18 at 09:00 Multivitamins (Multivitamin) 30 ml DAILY NGT Last administered on 08/13/18 08:21; Admin Dose 30 ML; Start 08/09/18 at 09:00 Zinc Sulfate (Zinc Sulfate) 220 mg DAILY NGT Last administered on 08/13/18 08:20; Admin Dose 220 MG; Start 08/09/18 at 09:00 Folic Acid (Folic Acid) 1 mg DAILY NGT Last administered on 08/13/18 08:20; Admin Dose 1 MG; Start 08/09/18 at 09:00 Ascorbic Acid (Vitamin C) 500 mg DAILY NGT Last administered on 08/13/18 08:21; Admin Dose 500 MG; Start 08/09/18 at 09:00 Dexmedetomidine HCl 200 mcg/ Sodium Chloride 50 ml @ 4.62 mls/hr TITRATE IV Last administered on 08/13/18 12:39; Admin Dose 16.17 MLS/HR; Start 08/09/18 at 11:30; Stop 08/13/18 at 19:00 Albuterol (Ventolin Hfa) 4 puff Q6HWA RESP THERAPY INH Last administered on 08/12/18 19:37; Admin Dose 4 PUFF; Start 08/09/18 at 14:00 Ipratropium [place] (Atrovent Hfa) 4 puff Q6H RESP THERAPY INH Last administered on 08/13/18 01:23; Admin Dose 4 PUFF; Start 08/09/18 at 14:00 Vancomycin HCl (Vanco Iv Per Pharmacy) VANCOMYCIN PER PHARMACY PER PROTOCOL XX ; Start 08/10/18 at 01:30 Piperacillin Sod/ Tazobactam Sod 50 ml @ 100 mls/hr Q8 IVPB Last administered on 08/13/18 13:31; Admin Dose 100 MLS/HR; Start 08/10/18 at 14:00 IV Flush (NS 10 ml) 10 ml PRN PRN IV IV PROTOCOL; Start 08/11/18 at 16:30 Lansoprazole (Prevacid) 30 mg 0600,1800 PEG Last administered on 08/13/18 05:33; Admin Dose 30 MG; Start 08/11/18 at 18:28 Heparin Sodium (Porcine) (Heparin (1000 Units/ml)) 3,000 unit PRN PRN CATHETER Dialysis Last administered on 08/13/18at 13:26; Admin Dose 3,000 UNIT; Start 08/12/18 at 14:30 Assessment/Plan Hospital Course (Demo Recall) 1. s/p V. fib cardiac arrest 2. Acute myocardial infarction 3. Status post emergent PCI of the 100% occluded LAD as well as PTCA of the diagonal 4. Diabetes 5. Respiratory failure status post intubation on the vent 6. Hypertension 7. Renal failure : acute on chronic 8. Likely history of congestive heart failure 9. Dyslipidemia 10. Encephalopathy: Clear anoxic brain injury on hypothermia protocol 11. Morbid obesity 12. Anemia 13. elevated LFT 14. fever, ? pneumonia vs others 15. Malnutrition, anasarca . 16. septic shock and bacteremia Recommendations: Continue with aspirin and Brilinta Insulin as PER IM HD as per renal Vent support respiratory care as per internal medicine and pulmonary consultants. hold coreg for low BP Monitor renal function. f/u renal consult rec PPI . ABX PER IM, Transfusion prn given her severe anemia and IL/ VF More than 33 minutes of critical care time was for management treatment is critically patient excluding any procedures Thank you for his referral. We will continue to follow along with you LOIS JOHNSON MD [facility] LOIS JOHNSON MD Aug 13, 2018 13:50
--- NOTE | 2018-08-13 14:25 | CONS ---
Assessment/Plan Assessment/Plan Hospital Course (Demo Recall) No acute changes overnight. Patient remains intubated now off pressors, she is sedated in no distress. Temperature 97.7 pulse 82 respirations 34 blood pressure 129/92 saturation 95%. T-max 100 yesterday WBC 16.7 H&H 8.9 and 27.7 platelets 68 bands 7 BUN 58 creatinine 4.89 Microbiology: Urine culture growing E. coli and Proteus mirabilis, blood culture growing staph aureus, oxacillin sensitive and coag negative staph, endotracheal aspirate growing oxacillin sensitive staph aureus Indwelling: Endotracheal tube, orogastric tube, right femoral Devan, right upper extremity PICC line Antimicrobials: Vancomycin, Zosyn Chest x-ray this morning revealed persistent bilateral infiltrates without significant change Physical examination: Obese well-developed middle-aged woman who is intubated in no distress. Head atraumatic normocephalic neck is supple chest rise symmetrical breath sounds diminished bases. Heart: S1-S2. Abdomen distended. Bowel sounds hypoactive. Extremities cyanotic Assessment: 1. Severe sepsis with shock, off pressors 2. Oxacillin sensitive staph aureus bacteremia 3. Oxacillin sensitive staph aureus pneumonia 4. Polymicrobial UTI 5. ST elevation [place], status post stent 6. Status post V. fib arrest 7. Acute renal failure, started on hemodialysis 8. Encephalopathy, possibly anoxic 9. Anemia and progressive thrombocytopenia Plan: DC vancomycin, continue Zosyn, follow recommendations of specialists, prognosis guarded Consultation Date/Type/Reason Admit Date/Time Aug 04, 2018 at 23:10 Initial Consult Date 08/12/18 Type of Consult id Requesting Provider: HARPAL AGGARWAL MD Date/Time of Note DATE: 08/13/18 TIME: 14:24 Exam/Review of Systems Exam Vitals Vital Signs Date Temp Pulse Resp B/P (MAP) Pulse Ox O2 O2 Flow FiO2 Time Delivery Rate 08/13/18 84 13:05 08/13/18 97.7 34 129/92 95 Mechanical 13:00 (104) Ventilator 08/13/18 40 05:18 Intake and Output 08/12/18 08/12/18 08/13/18 1515:00 23:00 07:00 IntakeIntake Total 518.30 ml 592.21 ml 559.74 ml OutputOutput Total 120 ml 2330 ml 15 ml BalanceBalance 398.30 ml -1737.79 ml 544.74 ml Results Result Diagram: 08/13/18 0420 08/13/18 0420 Results 24hrs Laboratory Tests Test 08/12/18 20:28 08/13/18 04:20 08/13/18 04:51 08/13/18 05:00 Bedside Glucose 139 White Blood Count 16.7 H Red Blood Count 3.18 L Hemoglobin 8.9 L Hematocrit 27.7 L Mean Corpuscular 87.1 Volume Mean Corpuscular 28.0 L Hemoglobin Mean Corpuscular 32.1 Hemoglobin Concen t Red Cell 17.3 H Distribution Width Platelet Count 68 #L Mean Platelet Volume Immature 4.900 H Granulocytes % Neutrophils % Segmented 80 H Neutrophils % (Manual) Band Neutrophils 7 H % (Manual) Lymphocytes % Lymphocytes % 12 L (Manual) Monocytes % Monocytes % 1 (Manual) Eosinophils % Basophils % Nucleated Red 1 H Blood Cells % Immature 0.820 H Granulocytes # Neutrophils # Neutrophils # 13.5 H (Manual) Band Neutrophils 1.1 H # Lymphocytes 2.0 (Manual) Lymphocytes # Monocytes # Monocytes # 0.1 L (Manual) Eosinophils # Basophils # Nucleated Red Blood Cells # Platelet Estimate DECREASED Giant Platelets 4 H Polychromasia 1+ Microcytosis 1+ Macrocytosis 1+ Sodium Level 141 Potassium Level 4.7 Chloride Level 108 Carbon Dioxide 24 Level Anion Gap 9 Blood Urea 58 H Nitrogen Creatinine 4.89 H Est Glomerular 10 L Filtrat Rate mL/min Glucose Level 122 # Calcium Level 7.9 L Phosphorus Level 6.4 #H Magnesium Level 2.8 H Lactic Acid Level 0.7 Blood Gas Blood arterial Specimen Source Arterial Blood 08/13/2018 5:00:3 Date Drawn 9 AM Arterial Blood pH 7.328 L (Temp corrected) Arterial Blood 43.4 pCO2 (Temp correct) Arterial Blood 92.5 pO2 (Temp corrected) Arterial Blood 22.3 HCO3 Arterial Blood -3.5 L Base Excess Arterial Blood 96.5 Oxygen Saturation Dajuan Test ACCEPTAB Arterial Blood Left Radial Gas Puncture Site Arterial 0.4 Blood Carboxyhemo globin Arterial Blood 0.5 Methemoglobin Blood Gas A-a O2 142.8 H Differential Oxyhemoglobin 95.6 Percent Blood Gas 37.0 Temperature Blood Gas 32.0 Respiration Rate Blood Gas Actual 32 Respiration Rate Blood Gas VENT - AC Modality FiO2 40.0 Blood Gas Tidal 350.0 Volume Blood Gas Low 8.0 PEEP Setting Blood Gas MA Notified Whom Blood Gas 08/13/2018 5:15:2 Notified Time 1 AM Test 08/13/18 09:13 Bedside Glucose 128 Medications Medication Current Medications Norepinephrine 250 ml @ 1.875 mls/ hr TITRATE IV Last administered on 08/10/18 00:41; Admin Dose 5.625 MLS/HR; Start 08/04/18 at 23:15 Ticagrelor (Brilinta) 90 mg BID PO Last administered on 08/13/18 08:22; Admin Dose 90 MG; Start 08/05/18 at 09:00 Morphine Sulfate (morphine) 1 mg Q1H PRN IV PAIN Last administered on 08/05/18 00:55; Admin Dose 1 MG; Start 08/04/18 at 23:30 Docusate Sodium (Colace) 100 mg BID PO Last administered on 08/12/18 20:12; Admin Dose 100 MG; Start 08/05/18 at 09:00 Atorvastatin Calcium (Lipitor) 80 mg DAILY@21 PO Last administered on 08/12/18 20:12; Admin Dose 80 MG; Start 08/05/18 at 21:00 Nitroglycerin/ Dextrose 250 ml @ 1.5 mls/hr TITRATE IV Last administered on 08/05/18 14:22; Admin Dose 72 MLS/HR; Start 08/05/18 at 01:00 Propofol 100 ml @ 2.772 mls/ hr Q12H IV Last administered on 08/09/18 04:37; Admin Dose 11.088 MLS/HR; Start 08/05/18 at 04:00 Midazolam HCl 50 ml @ 1 mls/hr TITRATE IV Last administered on 08/05/18 19:22; Admin Dose 8 MLS/HR; Start 08/05/18 at 07:30 Miscellaneous Information 1 ea NOTE XX ; Start 08/05/18 at 09:00 Acetaminophen (Tylenol Supp) 650 mg Q4H PRN [place] TEMP > 37C Last administered on 08/09/18 04:37; Admin Dose 650 MG; Start 08/05/18 at 11:00 Acetaminophen (Tylenol Liquid) 650 mg Q4H PRN PO TEMP > 37C Last administered on 08/11/18 11:55; Admin Dose 650 MG; Start 08/05/18 at 11:00 Meperidine HCl (Demerol) 25 mg Q4H PRN IV POST OPERATIVE SHIVERING Last administered on 08/05/18 16:31; Admin Dose 25 MG; Start 08/05/18 at 11:00 Eye Lubricant (Akwa Oint) 1 applic Q6 BOTH EYES Last administered on 08/13/18 09:14; Admin Dose 1 APPLIC; Start 08/05/18 at 12:00 Eye Lubricant (Artificial Tears Oph) 2 drop Q6 BOTH EYES Last administered on 08/13/18 09:14; Admin Dose 2 DROP; Start 08/05/18 at 12:00 Insulin Human Regular 100 unit/ Sodium Chloride 100 ml @ 0 mls/hr PER PROTOCOL IV ; Start 08/05/18 at 12:00 Miscellaneous Information (* Miscellaneous Pharmacy Order) Treatment of Hypoglycemia: 1.BG 51... Per protocol XX ; Start 08/05/18 at 12:00 Dextrose (D50w Syringe) 25 ml Q15M PRN IV .DECREASED GLUCOSE; Start 08/05/18 at 12:00 Dextrose (D50w Syringe) 50 ml Q15M PRN IV .DECREASED GLUCOSE; Start 08/05/18 at 12:00 Fentanyl 100 ml @ 2.5 mls/hr TITRATE IV Last administered on 08/13/18 03:07; Admin Dose 7.5 MLS/HR; Start 08/05/18 at 12:00 Meperidine HCl (Demerol) 12.5 mg Q2H PRN IV POST OPERATIVE SHIVERING; Start 08/05/18 at 17:00 Aspirin (Aspirin) 81 mg DAILY NGT Last administered on 08/13/18 08:21; Admin Dose 81 MG; Start 08/06/18 at 09:00 Diagnostic Test (Pha) (Accu-Chek) 1 ea Q12 XX Last administered on 08/13/18 0 9:13; Admin Dose 1 EA; Start 08/06/18 at 21:00 Carvedilol (Coreg) 6.25 mg QID PO Last administered on 08/13/18 13:31; Admin Dose 6.25 MG; Start 08/08/18 at 09:00 Multivitamins (Multivitamin) 30 ml DAILY NGT Last administered on 08/13/18 08:21; Admin Dose 30 ML; Start 08/09/18 at 09:00 Zinc Sulfate (Zinc Sulfate) 220 mg DAILY NGT Last administered on 08/13/18 08:20; Admin Dose 220 MG; Start 08/09/18 at 09:00 Folic Acid (Folic Acid) 1 mg DAILY NGT Last administered on 08/13/18 08:20; Admin Dose 1 MG; Start 08/09/18 at 09:00 Ascorbic Acid (Vitamin C) 500 mg DAILY NGT Last administered on 08/13/18 08:21; Admin Dose 500 MG; Start 08/09/18 at 09:00 Dexmedetomidine HCl 200 mcg/ Sodium Chloride 50 ml @ 4.62 mls/hr TITRATE IV Last administered on 08/13/18 12:39; Admin Dose 16.17 MLS/HR; Start 08/09/18 at 11:30; Stop 08/13/18 at 19:00 Albuterol (Ventolin Hfa) 4 puff Q6HWA RESP THERAPY INH Last administered on 08/12/18 19:37; Admin Dose 4 PUFF; Start 08/09/18 at 14:00 Ipratropium [place] (Atrovent Hfa) 4 puff Q6H RESP THERAPY INH Last administered on 08/13/18 01:23; Admin Dose 4 PUFF; Start 08/09/18 at 14:00 Vancomycin HCl (Vanco Iv Per Pharmacy) VANCOMYCIN PER PHARMACY PER PROTOCOL XX ; Start 08/10/18 at 01:30 Piperacillin Sod/ Tazobactam Sod 50 ml @ 100 mls/hr Q8 IVPB Last administered on 08/13/18 13:31; Admin Dose 100 MLS/HR; Start 08/10/18 at 14:00 IV Flush (NS 10 ml) 10 ml PRN PRN IV IV PROTOCOL; Start 08/11/18 at 16:30 Lansoprazole (Prevacid) 30 mg 0600,1800 PEG Last administered on 08/13/18 05:33; Admin Dose 30 MG; Start 08/11/18 at 18:28 Heparin Sodium (Porcine) (Heparin (1000 Units/ml)) 3,000 unit PRN PRN CATHETER Dialysis Last administered on 08/13/18 13:26; Admin Dose 3,000 UNIT; Start 08/12/18 at 14:30 WIN LUCIANO NP Aug 13, 2018 14:25
[2018-08-13] MEDS: PROPOFOL 100 ML IV SCH (16:06)
--- NOTE | 2018-08-13 20:54 | EEG ---
EEG NOTE Report Details DATE OF TEST: 08/12/18 HISTORY: The patient is a 38-year-old F who presents with altered mental status following cardiac arrest. This EEG is requested to rule out nonconvulsive status epilepticus. SEDATION: None. CONDITIONS OF RECORDING: This EEG was recorded digitally on the Deezer machine, using the International 10-20 System of electrodes plus anterior temporals and [place]. STATES SAMPLED: Comatose. FINDINGS: The background is continuous and symmetric...predominated by polymorphic theta and delta activity.. The normal [id number] frequency-amplitude gradient was absent. Photic stimulation does not elicit any definite driving responses or epileptiform discharges. Hyperventilation was not performed. No asymmetries, focal abnormalities or epileptiform discharges were seen. IMPRESSION: Abnormal electroencephalogram due to: diffuse slowing. COMMENT: The slowing of the background indicates diffuse cortical dysfunction of nonspecific etiology. RANDY GARCIA Aug 13, 2018 20:54
[2018-08-13] MEDS: ATORVASTATIN 80 MG TAB PO SCH (21:22)
[2018-08-14] VITALS (45 sets, daily range): BP systolic 108–161; BP diastolic 72–102; PULSE 90–104; RESP 29–34
[2018-08-14] MEDS: IPRATROPIUM (HFA) 12.9 GM INHALER INH SCH ×4 (02:00→19:37)
[2018-08-14] MEDS: PROPOFOL 100 ML IV SCH ×4 (04:00→23:01)
[2018-08-14] MEDS: OCULAR LUBRICANT 3.5 GM OPH OINT BOTH EYES SCH ×4 (05:40→23:02)
[2018-08-14] MEDS: PIPER-TAZO 2.25 GM/NS 50 ML IVPB SCH ×3 (05:40→20:24)
[2018-08-14] MEDS: LANSOPRAZOLE 30 MG CAP PEG SCH ×2 (05:40→17:45)
[2018-08-14] MEDS: ARTIFICIAL TEARS 15 ML OPH BOTH EYES SCH ×4 (05:40→23:02)
[2018-08-14] MEDS: ASPIRIN 81 MG TAB NGT SCH (08:03)
[2018-08-14] MEDS: MULTIVITAMINS 30 ML CUP NGT SCH (08:04)
[2018-08-14] MEDS: DOCUSATE SODIUM 100 MG CAP PO SCH ×2 (08:04→20:16)
[2018-08-14] MEDS: ASCORBIC ACID 500 MG TAB NGT SCH (08:04)
[2018-08-14] MEDS: ZINC SULFATE 220 MG CAP NGT SCH (08:04)
[2018-08-14] MEDS: FOLIC ACID 1 MG TAB NGT SCH (08:04)
[2018-08-14] MEDS: TICAGRELOR 90 MG TABLET PO SCH ×2 (08:06→20:18)
--- NOTE | 2018-08-14 08:29 | PN ---
DATE: 08/14/2018 SUBJECTIVE: The patient remains critically ill on full ventilatory support. The patient had hemodia lysis yesterday with 2 liters removed. No other events noted. OBJECTIVE: VITAL SIGNS: Blood pressure is 156/96, respirations 29, pulse 103, temperature 98.2. HEENT: Head is normocephalic. NECK: Supple. HEART: Regular rate. LUNGS: Show diminished breath sounds at the base. ABDOMEN: Soft, nontender to palpation without rebound or guarding. EXTREMITIES: Negative for clubbing, cyanosis. Positive edema. DERMATOLOGIC: No rashes. MUSCULOSKELETAL: No joint effusion. NEUROLOGIC: No change in exam. MEDICATIONS: Reviewed. LABORATORY DATA: Reviewed. IMAGING STUDIES: Reviewed. ASSESSMENT AND PLAN: 1. Anuric acute kidney injury with previously normal baseline creatinine. Etiology of acute kidney injury is secondary to acute tubular necrosis due to sepsis, shock, contrast associated nephropathy. The patient has been initiated on dialysis. Plan is for dialysis again today. We will dialyze for 3 hours 3k bath, calcium 2.5. Anticipate daily dialysis for solute clearance and volume removal. 2. Metabolic acidosis, improving. Continue dialysis. 3. Anemia. Continue to monitor hemoglobin and hematocrit levels. 4. Mineral bone disorder. Continue to monitor calcium and phosphorus levels. 5. Volume overload. Continue ultrafiltration dialysis. 6. Sepsis, status post shock secondary to pneumonia and bacteremia. Continue current antibiotic reg imen. 7. Ventilator dependent respiratory failure. Vent settings and ABG was reviewed. Continue to monit or. 8. Cardiac arrest with ST elevated myocardial infarction, the patient is status post cardiac cathete rization, multiple PCI. Continue medical management. Follow up with cardiology. 9. Acute encephalopathy, etiology is toxic metabolic. 10. Gastrointestinal and deep vein thrombosis prophylaxis. Please note I spent over 30 minutes of critical care time with this patient. Dictated By: BHUMI REDDY DO NR/NTS Conf#: [id number] DID#: [id number] CC: DANIAL TUCKER MD; LAUREN GREWAL MD; HARPAL PEDROZA MD;*EndCC*
[2018-08-14] MEDS: ALBUTEROL HFA 8 GM INHALER INH SCH ×3 (08:32→19:37)
--- NOTE | 2018-08-14 08:35 | CONS ---
Consult Date/Type/Reason Admit Date/Time Aug 04, 2018 at 23:10 Initial Consult Date 08/05/18 Type of Consultation: cv Requesting Provider: HARPAL AGGARWAL MD Date/Time of Note DATE: 08/14/18 TIME: 08:33 Subjective Interventional cardiology follow-up progress note/critical care Subjective: Events noted discussed with the staff and physicians. d/w Dr Cox Patient remains intubated on the vent and remains nonresponsive No V tachycardia or V fibrillation. BP is stable off of pressors. no coffee ground emesis but pt with nasopharyngeal bleeding events noted s/p PCI 100% occluded LAD 08/04 S/P PCI LCX/ OM Objective: General: Obese female started with intubation on the vent HEENT: NC/AT. pupils are equal. round. NECK: . no stridor. CV: RRR. systolic murmur; no gallop or rubs. PULM: no wheezing + diffuse rhonchi. GI: Obese SOFT, NT, ND, no rebound or guarding Extremity: +B/L LE edema. no clubbing. neuro: Sedated Psych: Calm now rectal: deferred EKG August 06, 2018 was personally within normal sinus rhythm. T wave inversions anterior and inferior leads ECG 08/07: NSR ST T abn c/w ant/lat ischemia Chest x-ray done August 06 shows:No evidence for active cardiopulmonary disease. ECHO personally reviewed Normal left ventricular cavity size. Normal left ventricular wall thickness. Ejection fraction is visually estimated at 55-65 %. Normal appearance of the mitral valve. Mitral valve is not well visualized. No mitral valve regurgitation is seen. Aortic valve not well visualized. No aortic regurgitation. Normal appearance of the tricuspid valve. Unable to obtain RVSP due to minimal presence of tricuspid regurgitation. No evidence of tricuspid regurgitation. Normal pericardium with no significant pericardial effusion. suboptimal study. Objective Vitals Vital Signs Date Temp Pulse Resp B/P (MAP) Pulse Ox O2 O2 Flow FiO2 Time Delivery Rate 08/14/18 103 29 156/96 92 Mechanical 06:00 (116) Ventilator 08/14/18 40 05:09 08/14/18 98.2 04:00 Intake and Output 08/13/18 08/13/18 08/14/18 1515:00 23:00 07:00 IntakeIntake Total 480.47 ml 341.0 ml 452.5 ml OutputOutput Total 2400 ml 0 ml BalanceBalance -1919.53 ml 341.0 ml 452.5 ml Results/Medications Result Diagram: 08/14/1842908/14/18 0430 Results 24 hrs Laboratory Tests Test 08/13/18 09:13 08/13/18 14:51 08/13/18 21:45 08/14/18 04:30 Bedside Glucose 128 110 Ammonia < 9 L White Blood Count 18.5 H Red Blood Count 3.29 L Hemoglobin 9.1 L Hematocrit 28.9 L Mean Corpuscular 87.8 Volume Mean Corpuscular 27.7 L Hemoglobin Mean Corpuscular 31.5 L Hemoglobin Concent Red Cell 17.0 H Distribution Width Platelet Count 74 L Mean Platelet Volume 12.8 H Immature 5.000 H Granulocytes % Neutrophils % 83.5 H Lymphocytes % 5.5 L Monocytes % 4.7 Eosinophils % 0.9 Basophils % 0.4 Nucleated Red Blood 0.1 H Cells % Immature 0.930 H Granulocytes # Neutrophils # 15.4 H Lymphocytes # 1.0 Monocytes # 0.9 Eosinophils # 0.2 Basophils # 0.1 Nucleated Red Blood 0.0 Cells # Sodium Level 140 Potassium Level 4.7 Chloride Level 103 Carbon Dioxide Level 26 Anion Gap 11 Blood Urea Nitrogen 45 #H Creatinine 4.21 H Est Glomerular 12 L Filtrat Rate mL/min Glucose Level 125 Calcium Level 8.3 L Phosphorus Level 4.6 Magnesium Level 2.5 Medications Current Medications Norepinephrine 250 ml @ 1.875 mls/ hr TITRATE IV Last administered on 08/10/18at 00:41; Admin Dose 5.625 MLS/HR; Start 08/04/18 at 23:15 Ticagrelor (Brilinta) 90 mg BID PO Last administered on 08/14/18at 08:06; Admin Dose 90 MG; Start 08/05/18 at 09:00 Morphine Sulfate (morphine) 1 mg Q1H PRN IV PAIN Last administered on 08/05/18at 00:55; Admin Dose 1 MG; Start 08/04/18 at 23:30 Docusate Sodium (Colace) 100 mg BID PO Last administered on 08/14/18at 08:04; Admin Dose 100 MG; Start 08/05/18 at 09:00 Atorvastatin Calcium (Lipitor) 80 mg DAILY@21 PO Last administered on 08/13/18 21:22; Admin Dose 80 MG; Start 08/05/18 at 21:00 Nitroglycerin/ Dextrose 250 ml @ 1.5 mls/hr TITRATE IV Last administered on 08/05/18 14:22; Admin Dose 72 MLS/HR; Start 08/05/18 at 01:00 Propofol 100 ml @ 2.772 mls/ hr Q12H IV Last administered on 08/13/18 16:06; Admin Dose 2.772 MLS/HR; Start 08/05/18 at 04:00 Midazolam HCl 50 ml @ 1 mls/hr TITRATE IV Last administered on 08/05/18 19:22; Admin Dose 8 MLS/HR; Start 08/05/18 at 07:30 Miscellaneous Information 1 ea NOTE XX ; Start 08/05/18 at 09:00 Acetaminophen (Tylenol Supp) 650 mg Q4H PRN HI TEMP > 37C Last administered on 08/09/18at 04:37; Admin Dose 650 MG; Start 08/05/18 at 11:00 Acetaminophen (Tylenol Liquid) 650 mg Q4H PRN PO TEMP > 37C Last administered on 08/11/18at 11:55; Admin Dose 650 MG; Start 08/05/18 at 11:00 Meperidine HCl (Demerol) 25 mg Q4H PRN IV POST OPERATIVE SHIVERING Last administered on 08/05/18at 16:31; Admin Dose 25 MG; Start 08/05/18 at 11:00 Eye Lubricant (Akwa Oint) 1 applic Q6 BOTH EYES Last administered on 08/14/18at 05:40; Admin Dose 1 APPLIC; Start 08/05/18 at 12:00 Eye Lubricant (Artificial Tears Oph) 2 drop Q6 BOTH EYES Last administered on 08/14/18 05:40; Admin Dose 2 DROP; Start 08/05/18 at 12:00 Insulin Human Regular 100 unit/ Sodium Chloride 100 ml @ 0 mls/hr PER PROTOCOL IV ; Start 08/05/18 at 12:00 Miscellaneous Information (* Miscellaneous Pharmacy Order) Treatment of Hypoglycemia: 1.BG 51... Per protocol XX ; Start 08/05/18 at 12:00 Dextrose (D50w Syringe) 25 ml Q15M PRN IV .DECREASED GLUCOSE; Start 08/05/18 at 12:00 Dextrose (D50w Syringe) 50 ml Q15M PRN IV .DECREASED GLUCOSE; Start 08/05/18 at 12:00 Fentanyl 100 ml @ 2.5 mls/hr TITRATE IV Last administered on 08/13/18 17:54; Admin Dose 7.5 MLS/HR; Start 08/05/18 at 12:00 Meperidine HCl (Demerol) 12.5 mg Q2H PRN IV POST OPERATIVE SHIVERING; Start 08/05/18 at 17:00 Aspirin (Aspirin) 81 mg DAILY NGT Last administered on 08/14/18 08:03; Admin Dose 81 MG; Start 08/06/18 at 09:00 Diagnostic Test (Pha) (Accu-Chek) 1 ea Q12 XX Last administered on 08/13/18 21:00; Admin Dose 1 EA; Start 08/06/18 at 21:00 Carvedilol (Coreg) 6.25 mg QID PO Last administered on 08/14/18 08:04; Admin Dose 6.25 MG; Start 08/08/18 at 09:00 Multivitamins (Multivitamin) 30 ml DAILY NGT Last administered on 08/14/18 08:04; Admin Dose 30 ML; Start 08/09/18 at 09:00 Zinc Sulfate (Zinc Sulfate) 220 mg DAILY NGT Last administered on 08/14/18 08:04; Admin Dose 220 MG; Start 08/09/18 at 09:00 Folic Acid (Folic Acid) 1 mg DAILY NGT Last administered on 08/14/18 08:04; Admin Dose 1 MG; Start 08/09/18 at 09:00 Ascorbic Acid (Vitamin C) 500 mg DAILY NGT Last administered on 08/14/18 08:04; Admin Dose 500 MG; Start 08/09/18 at 09:00 Albuterol (Ventolin Hfa) 4 puff Q6HWA RESP THERAPY INH Last administered on 08/14/18 08:32; Admin Dose 4 PUFF; Start 08/09/18 at 14:00 Ipratropium [place] (Atrovent Hfa) 4 puff Q6H RESP THERAPY INH Last administered on 08/14/18 08:32; Admin Dose 4 PUFF; Start 08/09/18 at 14:00 Piperacillin Sod/ Tazobactam Sod 50 ml @ 100 mls/hr Q8 IVPB Last administered on 08/14/18at 05:40; Admin Dose 100 MLS/HR; Start 08/10/18 at 14:00 IV Flush (NS 10 ml) 10 ml PRN PRN IV IV PROTOCOL; Start 08/11/18 at 16:30 Lansoprazole (Prevacid) 30 mg 0600,1800 PEG Last administered on 08/14/18at 05:40; Admin Dose 30 MG; Start 08/11/18 at 18:28 Heparin Sodium (Porcine) (Heparin (1000 Units/ml)) 3,000 unit PRN PRN CATHETER Dialysis Last administered on 08/13/18at 13:26; Admin Dose 3,000 UNIT; Start 08/12/18 at 14:30 Assessment/Plan Hospital Course (Demo Recall) 1. s/p V. fib cardiac arrest 2. Acute myocardial infarction 3. Status post emergent PCI of the 100% occluded LAD as well as PTCA of the diagonal 4. Diabetes 5. Respiratory failure status post intubation on the vent 6. Hypertension 7. Renal failure : acute on chronic 8. Likely history of congestive heart failure 9. Dyslipidemia 10. Encephalopathy: Clear anoxic brain injury on hypothermia protocol 11. Morbid obesity 12. Anemia 13. elevated LFT 14. fever, bacteremia pneumonia 15. Malnutrition, anasarca . 16. septic shock and bacteremia Recommendations: Continue with aspirin and Brilinta Insulin as PER IM . Antibiotic management as per ID recommendation HD as per renal Vent support respiratory care as per internal medicine and pulmonary consultants. Coreg as tolerated Monitor renal function. f/u renal consult rec regarding hemodialysis PPI . Transfusion prn given her severe anemia and NM/ VF More than 32 minutes of critical care time was for management treatment is critically patient excluding any procedures Thank you for his referral. We will continue to follow along with you LOIS JOHNSON MD [facility] LOIS JOHNSON MD Aug 14, 2018 08:35
[2018-08-14] MEDS: ACCU-CHEK XX SCH ×2 (08:36→20:35)
--- NOTE | 2018-08-14 09:55 | PN ---
Date/Time of Note Date/Time of Note DATE: 08/14/18 TIME: 09:54 Objective Vitals Vital Signs Date Temp Pulse Resp B/P (MAP) Pulse Ox O2 O2 Flow FiO2 Time Delivery Rate 08/14/18 98.6 99 32 159/95 95 Mechanical 08:00 (116) Ventilator 08/14/18 40 05:09 Intake and Output 08/13/18 08/13/18 08/14/18 1414:59 22:59 06:59 IntakeIntake Total 504.14 ml 330.8 ml 502.7 ml OutputOutput Total 2400 ml 0 ml BalanceBalance -1895.86 ml 330.8 ml 502.7 ml Results Result Diagram: 08/14/1842908/14/18 043 Medications Medications Current Medications Norepinephrine 250 ml @ 1.875 mls/ hr TITRATE IV Last administered on 08/10/18 00:41; Admin Dose 5.625 MLS/HR; Start 08/04/18 at 23:15 Ticagrelor (Brilinta) 90 mg BID PO Last administered on 08/14/18 08:06; Admin Dose 90 MG; Start 08/05/18 at 09:00 Morphine Sulfate (morphine) 1 mg Q1H PRN IV PAIN Last administered on 08/05/18 00:55; Admin Dose 1 MG; Start 08/04/18 at 23:30 Docusate Sodium (Colace) 100 mg BID PO Last administered on 08/14/18 08:04; Admin Dose 100 MG; Start 08/05/18 at 09:00 Atorvastatin Calcium (Lipitor) 80 mg DAILY@21 PO Last administered on 08/13/18 21:22; Admin Dose 80 MG; Start 08/05/18 at 21:00 Nitroglycerin/ Dextrose 250 ml @ 1.5 mls/hr TITRATE IV Last administered on 08/05/18 14:22; Admin Dose 72 MLS/HR; Start 08/05/18 at 01:00 Propofol 100 ml @ 2.772 mls/ hr Q12H IV Last administered on 08/13/18 16:06; Admin Dose 2.772 MLS/HR; Start 08/05/18 at 04:00 Midazolam HCl 50 ml @ 1 mls/hr TITRATE IV Last administered on 3/17/19at 19:22; Admin Dose 8 MLS/HR; Start 08/05/18 at 07:30 Miscellaneous Information 1 ea NOTE XX ; Start 08/05/18 at 09:00 Acetaminophen (Tylenol Supp) 650 mg Q4H PRN VT TEMP > 37C Last administered on 08/09/18at 04:37; Admin Dose 650 MG; Start 08/05/18 at 11:00 Acetaminophen (Tylenol Liquid) 650 mg Q4H PRN PO TEMP > 37C Last administered on 08/11/18at 11:55; Admin Dose 650 MG; Start 08/05/18 at 11:00 Meperidine HCl (Demerol) 25 mg Q4H PRN IV POST OPERATIVE SHIVERING Last administered on 08/05/18at 16:31; Admin Dose 25 MG; Start 08/05/18 at 11:00 Eye Lubricant (Akwa Oint) 1 applic Q6 BOTH EYES Last administered on 08/14/18at 08:37; Admin Dose 1 APPLIC; Start 08/05/18 at 12:00 Eye Lubricant (Artificial Tears Oph) 2 drop Q6 BOTH EYES Last administered on 08/14/18at 08:37; Admin Dose 2 DROP; Start 08/05/18 at 12:00 Insulin Human Regular 100 unit/ Sodium Chloride 100 ml @ 0 mls/hr PER PROTOCOL IV ; Start 08/05/18 at 12:00 Miscellaneous Information (* Miscellaneous Pharmacy Order) Treatment of Hypoglycemia: 1.BG 51... Per protocol XX ; Start 08/05/18 at 12:00 Dextrose (D50w Syringe) 25 ml Q15M PRN IV .DECREASED GLUCOSE; Start 08/05/18 at 12:00 Dextrose (D50w Syringe) 50 ml Q15M PRN IV .DECREASED GLUCOSE; Start 08/05/18 at 12:00 Fentanyl 100 ml @ 2.5 mls/hr TITRATE IV Last administered on 08/13/18at 17:54; Admin Dose 7.5 MLS/HR; Start 08/05/18 at 12:00 Meperidine HCl (Demerol) 12.5 mg Q2H PRN IV POST OPERATIVE SHIVERING; Start 08/05/18 at 17:00 Aspirin (Aspirin) 81 mg DAILY NGT Last administered on 08/14/18at 08:03; Admin Dose 81 MG; Start 08/06/18 at 09:00 Diagnostic Test (Pha) (Accu-Chek) 1 ea Q12 XX Last administered on 08/14/18 08:36; Admin Dose 1 EA; Start 08/06/18 at 21:00 Carvedilol (Coreg) 6.25 mg QID PO Last administered on 08/14/18 08:04; Admin Dose 6.25 MG; Start 08/08/18 at 09:00 Multivitamins (Multivitamin) 30 ml DAILY NGT Last administered on 08/14/18 08:04; Admin Dose 30 ML; Start 08/09/18 at 09:00 Zinc Sulfate (Zinc Sulfate) 220 mg DAILY NGT Last administered on 08/14/18 08:04; Admin Dose 220 MG; Start 08/09/18 at 09:00 Folic Acid (Folic Acid) 1 mg DAILY NGT Last administered on 08/14/18 08:04; Admin Dose 1 MG; Start 08/09/18 at 09:00 Ascorbic Acid (Vitamin C) 500 mg DAILY NGT Last administered on 08/14/18 08:04; Admin Dose 500 MG; Start 08/09/18 at 09:00 Albuterol (Ventolin Hfa) 4 puff Q6HWA RESP THERAPY INH Last administered on 08/14/18 08:32; Admin Dose 4 PUFF; Start 08/09/18 at 14:00 Ipratropium [place] (Atrovent Hfa) 4 puff Q6H RESP THERAPY INH Last administered on 08/14/18 08:32; Admin Dose 4 PUFF; Start 08/09/18 at 14:00 Piperacillin Sod/ Tazobactam Sod 50 ml @ 100 mls/hr Q8 IVPB Last administered on 08/14/18 05:40; Admin Dose 100 MLS/HR; Start 08/10/18 at 14:00 IV Flush (NS 10 ml) 10 ml PRN PRN IV IV PROTOCOL; Start 08/11/18 at 16:30 Lansoprazole (Prevacid) 30 mg 0600,1800 PEG Last administered on 08/14/18 05:40; Admin Dose 30 MG; Start 08/11/18 at 18:28 Heparin Sodium (Porcine) (Heparin (1000 Units/ml)) 3,000 unit PRN PRN CATHETER Dialysis Last administered on 08/13/18at 13:26; Admin Dose 3,000 UNIT; Start 08/12/18 at 14:30 Ciprofloxacin HCl (Ciprofloxacin HCl Otic) 5 drop BID LEFT EAR ; Start 08/14/18 at 10:00; Stop 08/20/18 at 21:01; Status UNV VTE Prophylaxis Risk score (from [facility] [place])>0 risk: 11 SCD applied (from [facility] [place]): No SCD contraindication: other Lines/Catheters IV Catheter Type: Bajwa in Place: Yes Cont'd bajwa catheter reason: terminal illness/intractable pain Assessment/Plan Hospital Course Subjective no acute change overnight Objective Physical exam General: Patient is laying in bed intubated and sedated Mentation: Patient is not alert and oriented 4, Head: Normocephalic atraumatic Eyes: EOMI, pupils reactive to light Ears: Left auditory canal has dried up blood, unable to properly visualize tympanic membrane, right auditory canal clear Neck: Supple, nontender, midline Respiratory: Coarse to auscultation bilaterally Cardiovascular: regular rate, no obvious murmurs Gastrointestinal: non-tender to palpation, bowel sounds heard. Neurological: Unable to assess secondary to sedation Skin: No new skin lesions Assessment/Plan 1. Acute toxic/metabolic encephalopathy - Neurology recs appreciated and CT head noted - EEG ordered as well given patient remains obtunded even off sedation -At this time it appears that the initial incident led to anoxic encephalopathy due to unknown downtime during cardiac arrest before she came into the hospital. - monitor for improvement in neurological status 2. Septic shock secondary to PNA and bacteremia - WBC to be monitored closely - Blood cultures and sputum culture results noted. Will repeat blood cultures . - ID consulted for antibiotic recommendations. - Continue current antibiotics and pressor support with goal MAP> 65 3. Bilateral Pneumonia - CXR noted - Pulm on board and appreciate recommendations. Will continue current management and monitor for improvement in respiratory status - continue bronchodilators -ID on board Left auditory canal bleeding -Very mild, only dried blood at this time, however monitor closely as patient is on antiplatelet therapy due to coronary artery disease -ok per ID to start cipro eardrops Anemia -Mild drop in hemoglobin, will need to monitor closely as cardiology as previously mentioned patient is on dual antiplatelet therapy, if continues to drop, cardiology may consider switching Brilinta to Plavix. 4. CAD s/p PCI x2 - Cardiology on board and appreciate recommendations. Stressed importance of continuing DAPT given recent stent placements and high risk of restenosis - s/p emergent Cath 08/05 with successful PTCA and stenting of proximal and mid LAD, PTCA of the large first diagonal and thrombectomy of the LAD - Repeat PCI on 08/07 performed with stenting to LCx - plans for stenting of RCA prior to discharge - ECHO results noted 5. Acute hypoxic respiratory failure - exacerbated by #1 - Pulm on board for vent management. appreciate consultation 6. HUSEYIN- worsening - Nephrology on board and appreciate recommendations. -Now on HD - secondary to septic shock, ATN vs prerenal vs contrast induced nephropathy - will avoid nephrotoxic agents 7. Diabetes - A1c noted 8. Transaminitis- improving - most likely secondary to hypoperfusion - continue monitoring LFTs - RUQ US noted 9. V-fib cardiac arrest secondary to STEMI - Completed hypothermia protocol - unknown how long patient was down for in the field 10. Disposition - Continue close monitoring in ICU while requiring vent management. -Unfortunately there is not significant improvement however according to nurses when sedation is turned down patient is slightly more arousable. >30 minutes of critical care time spent with patient and family at bedside HARPAL PEDROZA Aug 14, 2018 09:55
--- NOTE | 2018-08-14 10:09 | CONS ---
Consult Date/Type/Reason Admit Date/Time Aug 04, 2018 at 23:10 Initial Consult Date 08/05/18 Type of Consult Pulmonary Requesting Provider: HARPAL AGGARWAL MD Date/Time of Note DATE: 08/14/18 TIME: 10:07 Subjective Significant epistaxis and oropharyngeal bleeding noted. Patient remains stable on mechanical ventilation however not opening eyes or following commands. Objective Vital Signs Date Temp Pulse Resp B/P (MAP) Pulse Ox O2 O2 Flow FiO2 Time Delivery Rate 08/14/18 98.6 99 32 159/95 95 Mechanical 08:00 (116) Ventilator 08/14/18 40 05:09 Intake and Output 08/13/18 08/13/18 08/14/18 1515:00 23:00 07:00 IntakeIntake Total 480.47 ml 341.0 ml 452.5 ml OutputOutput Total 2400 ml 0 ml BalanceBalance -1919.53 ml 341.0 ml 452.5 ml Exam GENERAL: Well-nourished well-developed lady orally intubated on mechanical ventilation VITAL SIGNS: per chart NECK: Supple. No JVD or lymphadenopathy. CARDIAC EXAM: S1, S2. No added sounds or murmurs. CHEST: clear bilaterally, No added sounds, rales or wheezes ABDOMEN: Soft, nontender. No guarding or rebound. EXTREMITIES: No cyanosis, clubbing or edema. NEUROLOGIC: Unable to assess Vent Setting Ventilator Support Mode: AC Fraction of Inspired Oxygen pe: 40 Positive End Expiratory Pressu: 8.0 Results/Medications Result Diagram: 08/14/18 0430 08/14/18 0430 Results 24 hrs Laboratory Tests Test 08/13/18 14:51 08/13/18 21:45 08/14/18 04:30 08/14/18 08:35 Ammonia < 9 L Bedside Glucose 110 128 White Blood Count 18.5 H Red Blood Count 3.29 L Hemoglobin 9.1 L Hematocrit 28.9 L Mean Corpuscular 87.8 Volume Mean Corpuscular 27.7 L Hemoglobin Mean Corpuscular 31.5 L Hemoglobin Concent Red Cell 17.0 H Distribution Width Platelet Count 74 L Mean Platelet Volume 12.8 H Immature 5.000 H Granulocytes % Neutrophils % 83.5 H Lymphocytes % 5.5 L Monocytes % 4.7 Eosinophils % 0.9 Basophils % 0.4 Nucleated Red Blood 0.1 H Cells % Immature 0.930 H Granulocytes # Neutrophils # 15.4 H Lymphocytes # 1.0 Monocytes # 0.9 Eosinophils # 0.2 Basophils # 0.1 Nucleated Red Blood 0.0 Cells # Sodium Level 140 Potassium Level 4.7 Chloride Level 103 Carbon Dioxide Level 26 Anion Gap 11 Blood Urea Nitrogen 45 #H Creatinine 4.21 H Est Glomerular 12 L Filtrat Rate mL/min Glucose Level 125 Calcium Level 8.3 L Phosphorus Level 4.6 Magnesium Level 2.5 Medications Current Medications Norepinephrine 250 ml @ 1.875 mls/ hr TITRATE IV Last administered on 08/10/18 00:41; Admin Dose 5.625 MLS/HR; Start 08/04/18 at 23:15 Ticagrelor (Brilinta) 90 mg BID PO Last administered on 08/14/18 08:06; Admin Dose 90 MG; Start 08/05/18 at 09:00 Morphine Sulfate (morphine) 1 mg Q1H PRN IV PAIN Last administered on 08/05/18 00:55; Admin Dose 1 MG; Start 08/04/18 at 23:30 Docusate Sodium (Colace) 100 mg BID PO Last administered on 08/14/18 08:04; Admin Dose 100 MG; Start 08/05/18 at 09:00 Atorvastatin Calcium (Lipitor) 80 mg DAILY@21 PO Last administered on 08/13/18 21:22; Admin Dose 80 MG; Start 08/05/18 at 21:00 Nitroglycerin/ Dextrose 250 ml @ 1.5 mls/hr TITRATE IV Last administered on 08/05/18 14:22; Admin Dose 72 MLS/HR; Start 08/05/18 at 01:00 Propofol 100 ml @ 2.772 mls/ hr Q12H IV Last administered on 08/13/18 16:06; Admin Dose 2.772 MLS/HR; Start 08/05/18 at 04:00 Midazolam HCl 50 ml @ 1 mls/hr TITRATE IV Last administered on 08/05/18at 19:22; Admin Dose 8 MLS/HR; Start 08/05/18 at 07:30 Miscellaneous Information 1 ea NOTE XX ; Start 08/05/18 at 09:00 Acetaminophen (Tylenol Supp) 650 mg Q4H PRN MS TEMP > 37C Last administered on 08/09/18 04:37; Admin Dose 650 MG; Start 08/05/18 at 11:00 Acetaminophen (Tylenol Liquid) 650 mg Q4H PRN PO TEMP > 37C Last administered on 08/11/18 11:55; Admin Dose 650 MG; Start 08/05/18 at 11:00 Meperidine HCl (Demerol) 25 mg Q4H PRN IV POST OPERATIVE SHIVERING Last administered on 08/05/18 16:31; Admin Dose 25 MG; Start 08/05/18 at 11:00 Eye Lubricant (Akwa Oint) 1 applic Q6 BOTH EYES Last administered on 08/14/18 08:37; Admin Dose 1 APPLIC; Start 08/05/18 at 12:00 Eye Lubricant (Artificial Tears Oph) 2 drop Q6 BOTH EYES Last administered on 08/14/18 08:37; Admin Dose 2 DROP; Start 08/05/18 at 12:00 Insulin Human Regular 100 unit/ Sodium Chloride 100 ml @ 0 mls/hr PER PROTOCOL IV ; Start 08/05/18 at 12:00 Miscellaneous Information (* Miscellaneous Pharmacy Order) Treatment of Hypoglycemia: 1.BG 51... Per protocol XX ; Start 08/05/18 at 12:00 Dextrose (D50w Syringe) 25 ml Q15M PRN IV .DECREASED GLUCOSE; Start 08/05/18 at 12:00 Dextrose (D50w Syringe) 50 ml Q15M PRN IV .DECREASED GLUCOSE; Start 08/05/18 at 12:00 Fentanyl 100 ml @ 2.5 mls/hr TITRATE IV Last administered on 08/13/18 17:54; Admin Dose 7.5 MLS/HR; Start 08/05/18 at 12:00 Meperidine HCl (Demerol) 12.5 mg Q2H PRN IV POST OPERATIVE SHIVERING; Start 08/05/18 at 17:00 Aspirin (Aspirin) 81 mg DAILY NGT Last administered on 08/14/18 08:03; Admin Dose 81 MG; Start 08/06/18 at 09:00 Diagnostic Test (Pha) (Accu-Chek) 1 ea Q12 XX Last administered on 08/14/18 08:36; Admin Dose 1 EA; Start 08/06/18 at 21:00 Carvedilol (Coreg) 6.25 mg QID PO Last administered on 08/14/18 08:04; Admin Dose 6.25 MG; Start 08/08/18 at 09:00 Multivitamins (Multivitamin) 30 ml DAILY NGT Last administered on 08/14/18 08:04; Admin Dose 30 ML; Start 08/09/18 at 09:00 Zinc Sulfate (Zinc Sulfate) 220 mg DAILY NGT Last administered on 08/14/18 08: 04; Admin Dose 220 MG; Start 08/09/18 at 09:00 Folic Acid (Folic Acid) 1 mg DAILY NGT Last administered on 08/14/18 08:04; Admin Dose 1 MG; Start 08/09/18 at 09:00 Ascorbic Acid (Vitamin C) 500 mg DAILY NGT Last administered on 08/14/18 08:04; Admin Dose 500 MG; Start 08/09/18 at 09:00 Albuterol (Ventolin Hfa) 4 puff Q6HWA RESP THERAPY INH Last administered on 08/14/18 08:32; Admin Dose 4 PUFF; Start 08/09/18 at 14:00 Ipratropium [place] (Atrovent Hfa) 4 puff Q6H RESP THERAPY INH Last a dministered on 08/14/18 08:32; Admin Dose 4 PUFF; Start 08/09/18 at 14:00 Piperacillin Sod/ Tazobactam Sod 50 ml @ 100 mls/hr Q8 IVPB Last administered on 08/14/18 05:40; Admin Dose 100 MLS/HR; Start 08/10/18 at 14:00 IV Flush (NS 10 ml) 10 ml PRN PRN IV IV PROTOCOL; Start 08/11/18 at 16:30 Lansoprazole (Prevacid) 30 mg 0600,1800 PEG Last administered on 08/14/18 05:40; Admin Dose 30 MG; Start 08/11/18 at 18:28 Heparin Sodium (Porcine) (Heparin (1000 Units/ml)) 3,000 unit PRN PRN CATHETER Dialysis Last administered on 08/13/18 13:26; Admin Dose 3,000 UNIT; Start 08/12/18 at 14:30 Ciprofloxacin HCl (Ciprofloxacin HCl Otic) 5 drop BID LEFT EAR ; Start 08/14/18 at 10:00; Stop 08/20/18 at 21:01; Status UNV Assessment/Plan Hospital Course (Demo Recall) IMP: 1. Ventricular Fibrillation Arrest--s/p ROSC 2/2 STEMI s/p PCI status post hypothermia protocol. Multivessel coronary artery disease status post stent placement x3 2. STEMI, Status post stent x3 placement. 3. Probable anoxic encephalopathy given persistent altered mental status despite sedation vacations. 4. Hypoxemic respiratory failure/ARDS 5. HUSEYIN--likely ATN continues hemodialysis 6. Ischemic hepatopathy--2/2 arrest 7. Metabolic acidosis--2/2 arrest 8. Anemia 9 Thrombocytopenia RECS: 1. Neuro recommendations 2. Consider MRI. 3. Allow for permissive hypercapnia given poor lung/chest wall compliance (Pplat ~ 38). 4. Continue PEEP 8 cm H20 5. Continue Abx 6. Pulmonary toilet 7. Hemodialysis per nephrology 8. Swab of left ear cultures pending. Critical care time 40 minutes. CHINO ANDERSON MD, [facility] Aug 14, 2018 10:09
--- NOTE | 2018-08-14 11:31 | CONS ---
Assessment/Plan Assessment/Plan Hospital Course 38 yo F w/ reported Hx of HTN and DM2 who [facility] s/p cardiac arrest. She is now s/p cardiac catheterization w/ 2 coronary stents. now s/p targeted temperature therapy. Neurology is consulted given persistent encephalopathy...which is likely multifactorial -- toxic-metabolic, medications...hypoxic-ischemic? CTH is is notable for scalp swelling, without obvious acute intracranial pathology. EEG is without epileptiform activity Ammonia level wnl P: MRI brain for further characterization when medically able Wean sedating medications as soon as able Continued medical management per primary Will follow clinically Consultation Date/Type/Reason Admit Date/Time Aug 04, 2018 at 23:10 Type of Consult Neurology Reason for Consultation ams Requesting Provider: HARPAL AGGARWAL MD Date/Time of Note DATE: 08/14/18 TIME: 11:31 24 HR Interval Summary Free Text/Dictation Continues critical care. Pt reportedly gets agitated, moving her R side and tachypneic when sedation is held. Subjective hx not possible: pt non-verbal, pt critical Exam Vital Signs Vitals Vital Signs Date Temp Pulse Resp B/P (MAP) Pulse Ox O2 O2 Flow FiO2 Time Delivery Rate 08/14/18 101 08:00 08/14/18 98.6 32 159/95 95 Mechanical 08:00 (116) Ventilator 08/14/18 40 05:09 Intake and Output 08/13/18 08/13/18 08/14/18 1515:00 23:00 07:00 IntakeIntake Total 480.47 ml 341.0 ml 560.0 ml OutputOutput Total 2400 ml 0 ml BalanceBalance -1919.53 ml 341.0 ml 560.0 ml Exam PE: Gen Appearance: No Apparent Distress HEENT: Intubated Cardiovascular: Regular rate Abdomen: Soft Extremities: Dry NE: The patient was sedated and nonverbal. Cranial nerve examination was limited by mental status. Pupils were equal and reactive to light. There was no afferent pupillary defect. Funduscopic examination was limited. Face was grossly symmetric, w/ present corneal and cough reflexes. Tone was normal. Muscle bulk was normal. I did not see fasciculations. The patient did not withdraw to noxious stimulation x 4. Coordination and gait testing was limited by mental status. Arm and leg reflexes were within normal limits and symmetric. Alvarez's sign was absent. Plantar responses were flexor. KAYCEE ESCOBEDO NP Aug 14, 2018 11:31 RANDY GARCIA Aug 14, 2018 13:52
--- NOTE | 2018-08-14 14:42 | CONS ---
Assessment/Plan Assessment/Plan Hospital Course (Demo Recall) No acute changes overnight patient remains intubated currently in hemodialysis with a T-max of 99.8 to current 98.6. WBC 18.5 H&H 9.1 and 28.9 platelets 74 neutrophils 83.5 Microbiology: Urine culture on admission grew E. coli and Proteus, blood cultures growing oxacillin sensitive staph aureus endotracheal aspirate also growing oxacillin sensitive staph aureus ear drainage preliminary growing staph aureus, repeat blood cultures 2 days ago negative Chest x-ray this morning revealed nonspecific patchy bilateral pulmonary opacity mildly improved on the right Antimicrobials: Zosyn and ciprofloxacin otic drops Indwelling: Endotracheal tube, orogastric tube, right femoral Devan, right upper extremity PICC line Physical examination: Obese well-developed middle-aged woman who is intubated in no distress. Head atraumatic normocephalic neck is supple chest rise symmetrical breath sounds diminished bases. Heart: S1-S2. Abdomen distended. Bowel sounds hypoactive. Extremities cyanotic Assessment: 1. Severe sepsis 2. Oxacillin sensitive staph aureus bacteremia 3. Oxacillin sensitive staph aureus pneumonia 4. Polymicrobial UTI 5. ST elevation OK, status post stent 6. Status post V. fib arrest 7. Acute renal failure, started on hemodialysis 8. Encephalopathy, possibly anoxic 9. Anemia and thrombocytopenia 10. Acute sinusitis and bilateral mastoiditis Plan: Remains unchanged, continue antibiotics Consultation Date/Type/Reason Admit Date/Time Aug 04, 2018 at 23:10 Initial Consult Date 08/12/18 Type of Consult id Requesting Provider: HARPAL AGGARWAL MD Date/Time of Note DATE: 08/14/18 TIME: 14:40 Exam/Review of Systems Exam Vitals Vital Signs Date Temp Pulse Resp B/P (MAP) Pulse Ox O2 O2 Flow FiO2 Time Delivery Rate 08/14/18 99 14:35 08/14/18 32 114/72 98 Mechanical 14:30 (86) Ventilator 08/14/18 40 13:50 08/14/18 98.6 08:00 Intake and Output 08/13/18 08/13/18 08/14/18 1515:00 23:00 07:00 IntakeIntake Total 480.47 ml 341.0 ml 600.0 ml OutputOutput Total 2400 ml 0 ml BalanceBalance -1919.53 ml 341.0 ml 600.0 ml Results Result Diagram: 08/14/18 0430 08/14/18 0430 Results 24hrs Laboratory Tests Test 08/13/18 14:51 08/13/18 21:45 08/14/18 04:30 08/14/18 08:35 Ammonia < 9 L Bedside Glucose 110 128 White Blood Count 18.5 H Red Blood Count 3.29 L Hemoglobin 9.1 L Hematocrit 28.9 L Mean Corpuscular 87.8 Volume Mean Corpuscular 27.7 L Hemoglobin Mean Corpuscular 31.5 L Hemoglobin Concent Red Cell 17.0 H Distribution Width Platelet Count 74 L Mean Platelet Volume 12.8 H Immature 5.000 H Granulocytes % Neutrophils % 83.5 H Lymphocytes % 5.5 L Monocytes % 4.7 Eosinophils % 0.9 Basophils % 0.4 Nucleated Red Blood 0.1 H Cells % Immature 0.930 H Granulocytes # Neutrophils # 15.4 H Lymphocytes # 1.0 Monocytes # 0.9 Eosinophils # 0.2 Basophils # 0.1 Nucleated Red Blood 0.0 Cells # Sodium Level 140 Potassium Level 4.7 Chloride Level 103 Carbon Dioxide Level 26 Anion Gap 11 Blood Urea Nitrogen 45 #H Creatinine 4.21 H Est Glomerular 12 L Filtrat Rate mL/min Glucose Level 125 Calcium Level 8.3 L Phosphorus Level 4.6 Magnesium Level 2.5 Medications Medication Current Medications Norepinephrine 250 ml @ 1.875 mls/ hr TITRATE IV Last administered on 08/10/18at 00:41; Admin Dose 5.625 MLS/HR; Start 08/04/18 at 23:15 Ticagrelor (Brilinta) 90 mg BID PO Last administered on 08/14/18at 08:06; Admin Dose 90 MG; Start 08/05/18 at 09:00 Morphine Sulfate (morphine) 1 mg Q1H PRN IV PAIN Last administered on 08/05/18at 00:55; Admin Dose 1 MG; Start 08/04/18 at 23:30 Docusate Sodium (Colace) 100 mg BID PO Last administered on 08/14/18at 08:04; Admin Dose 100 MG; Start 08/05/18 at 09:00 Atorvastatin Calcium (Lipitor) 80 mg DAILY@21 PO Last administered on 08/13/18at 21:22; Admin Dose 80 MG; Start 08/05/18 at 21:00 Nitroglycerin/ Dextrose 250 ml @ 1.5 mls/hr TITRATE IV Last administered on 08/05/18 14:22; Admin Dose 72 MLS/HR; Start 08/05/18 at 01:00 Propofol 100 ml @ 2.772 mls/ hr Q12H IV Last administered on 08/13/18 16:06; Admin Dose 2.772 MLS/HR; Start 08/05/18 at 04:00 Midazolam HCl 50 ml @ 1 mls/hr TITRATE IV Last administered on 08/05/18at 19:22; Admin Dose 8 MLS/HR; Start 08/05/18 at 07:30 Miscellaneous Information 1 ea NOTE XX ; Start 08/05/18 at 09:00 Acetaminophen (Tylenol Supp) 650 mg Q4H PRN MS TEMP > 37C Last administered on 08/09/18 04:37; Admin Dose 650 MG; Start 08/05/18 at 11:00 Acetaminophen (Tylenol Liquid) 650 mg Q4H PRN PO TEMP > 37C Last administered on 08/11/18at 11:55; Admin Dose 650 MG; Start 08/05/18 at 11:00 Meperidine HCl (Demerol) 25 mg Q4H PRN IV POST OPERATIVE SHIVERING Last adminis tered on 08/05/18at 16:31; Admin Dose 25 MG; Start 08/05/18 at 11:00 Eye Lubricant (Akwa Oint) 1 applic Q6 BOTH EYES Last administered on 08/14/18at 08:37; Admin Dose 1 APPLIC; Start 08/05/18 at 12:00 Eye Lubricant (Artificial Tears Oph) 2 drop Q6 BOTH EYES Last administered on 08/14/18at 08:37; Admin Dose 2 DROP; Start 08/05/18 at 12:00 Insulin Human Regular 100 unit/ Sodium Chloride 100 ml @ 0 mls/hr PER PROTOCOL IV ; Start 08/05/18 at 12:00 Miscellaneous Information (* Miscellaneous Pharmacy Order) Treatment of Hypoglycemia: 1.BG 51... Per protocol XX ; Start 08/05/18 at 12:00 Dextrose (D50w Syringe) 25 ml Q15M PRN IV .DECREASED GLUCOSE; Start 08/05/18 at 12:00 Dextrose (D50w Syringe) 50 ml Q15M PRN IV .DECREASED GLUCOSE; Start 08/05/18 at 12:00 Fentanyl 100 ml @ 2.5 mls/hr TITRATE IV Last administered on 08/13/18 17:54; Admin Dose 7.5 MLS/HR; Start 08/05/18 at 12:00 Meperidine HCl (Demerol) 12.5 mg Q2H PRN IV POST OPERATIVE SHIVERING; Start 08/05/18 at 17:00 Aspirin (Aspirin) 81 mg DAILY NGT Last administered on 08/14/18 08:03; Admin Dose 81 MG; Start 08/06/18 at 09:00 Diagnostic Test (Pha) (Accu-Chek) 1 ea Q12 XX Last administered on 08/14/18 08:36; Admin Dose 1 EA; Start 08/06/18 at 21:00 Carvedilol (Coreg) 6.25 mg QID PO Last administered on 08/14/18 08:04; Admin Dose 6.25 MG; Start 08/08/18 at 09:00 Multivitamins (Multivitamin) 30 ml DAILY NGT Last administered on 08/14/18 08:04; Admin Dose 30 ML; Start 08/09/18 at 09:00 Zinc Sulfate (Zinc Sulfate) 220 mg DAILY NGT Last administered on 08/14/18 08:04; Admin Dose 220 MG; Start 08/09/18 at 09:00 Folic Acid (Folic Acid) 1 mg DAILY NGT Last administered on 08/14/18 08:04; Admin Dose 1 MG; Start 08/09/18 at 09:00 Ascorbic Acid (Vitamin C) 500 mg DAILY NGT Last administered on 08/14/18 08:04; Admin Dose 500 MG; Start 08/09/18 at 09:00 Albuterol (Ventolin Hfa) 4 puff Q6HWA RESP THERAPY INH Last administered on 08/14/18 13:56; Admin Dose 4 PUFF; Start 08/09/18 at 14:00 Ipratropium [place] (Atrovent Hfa) 4 puff Q6H RESP THERAPY INH Last administered on 08/14/18 13:55; Admin Dose 4 PUFF; Start 08/09/18 at 14:00 Piperacillin Sod/ Tazobactam Sod 50 ml @ 100 mls/hr Q8 IVPB Last administered on 08/14/18at 05:40; Admin Dose 100 MLS/HR; Start 08/10/18 at 14:00 IV Flush (NS 10 ml) 10 ml PRN PRN IV IV PROTOCOL; Start 08/11/18 at 16:30 Lansoprazole (Prevacid) 30 mg 0600,1800 PEG Last administered on 08/14/18at 05:40; Admin Dose 30 MG; Start 08/11/18 at 18:28 Heparin Sodium (Porcine) (Heparin (1000 Units/ml)) 3,000 unit PRN PRN CATHETER Dialysis Last administered on 08/13/18at 13:26; Admin Dose 3,000 UNIT; Start 08/12/18 at 14:30 Ciprofloxacin HCl (Ciprofloxacin HCl Otic) 5 drop BID LEFT EAR ; Start 08/14/18 at 10:00; Stop 08/20/18 at 21:01 WIN LUCIANO NP Aug 14, 2018 14:42
[2018-08-14] MEDS: HEPARIN 1000 UNITS/ML 10 ML INJ CATHETER PRN (14:44)
[2018-08-14] MEDS: FENTAnyl (DRIP) 1000 mcg/100mL 100 ML IV SCH (15:31)
[2018-08-14] MEDS: CIPROFLOXACIN HCL OTIC DROP 0.25 ML LEFT EAR SCH ×2 (17:45→20:16)
[2018-08-14] MEDS: ATORVASTATIN 80 MG TAB PO SCH (20:16)
[2018-08-15] VITALS (54 sets, daily range): BP systolic 95–166; BP diastolic 68–105; PULSE 84–107; RESP 22–33
[2018-08-15] MEDS: FENTAnyl (DRIP) 1000 mcg/100mL 100 ML IV SCH ×2 (01:16→13:40)
[2018-08-15] MEDS: IPRATROPIUM (HFA) 12.9 GM INHALER INH SCH ×5 (01:28→19:40)
[2018-08-15] MEDS: PROPOFOL 100 ML IV SCH ×2 (03:55→10:19)
[2018-08-15] MEDS: LANSOPRAZOLE 30 MG CAP PEG SCH ×2 (05:27→18:03)
[2018-08-15] MEDS: PIPER-TAZO 2.25 GM/NS 50 ML IVPB SCH ×3 (05:27→20:16)
[2018-08-15] MEDS: OCULAR LUBRICANT 3.5 GM OPH OINT BOTH EYES SCH ×4 (05:28→23:13)
[2018-08-15] MEDS: ARTIFICIAL TEARS 15 ML OPH BOTH EYES SCH ×4 (05:28→23:13)
[2018-08-15] MEDS: ALBUTEROL HFA 8 GM INHALER INH SCH ×4 (08:00→19:40)
--- NOTE | 2018-08-15 08:00 | CONS ---
Consult Date/Type/Reason Admit Date/Time Aug 04, 2018 at 23:10 Initial Consult Date 08/05/18 Type of Consultation: cv Requesting Provider: HARPAL AGGARWAL MD Date/Time of Note DATE: 08/15/18 TIME: 07:57 Subjective Interventional cardiology follow-up progress note/critical care Subjective: Events noted discussed with the staff and physicians. Patient remains intubated on the vent and remains nonresponsive No V tachycardia or V fibrillation. Ledesma with a short run of SVT overnight BP is stable off of pressors. no coffee ground emesis but pt with significant oral and nasopharyngeal bleeding events noted s/p PCI 100% occluded LAD 08/04 S/P PCI LCX/ OM Objective: General: Obese female started with intubation on the vent HEENT: NC/AT. pupils are equal. round. NECK: . no stridor. CV: RRR. systolic murmur; no gallop or rubs. PULM: no wheezing + diffuse rhonchi. GI: Obese SOFT, NT, ND, no rebound or guarding Extremity: +B/L LE edema. no clubbing. neuro: Sedated Psych: Calm now rectal: deferred EKG August 06, 2018 was personally within normal sinus rhythm. T wave inversions anterior and inferior leads ECG 08/07: NSR ST T abn c/w ant/lat ischemia CXR 08/14: Nonspecific patchy bilateral pulmonary opacity, mildly improved on the right. No pneumothorax. Endotracheal tube, nasogastric tube, and right-sided PICC line remain in place. Stable mild cardiomegaly. The osseous structures are remarkable for degenerative enthesopathy of the spine. Chest x-ray done August 06 shows:No evidence for active cardiopulmonary disease. ECHO personally reviewed Normal left ventricular cavity size. Normal left ventricular wall thickness. Ejection fraction is visually estimated at 55-65 %. Normal appearance of the mitral valve. Mitral valve is not well visualized. No mitral valve regurgitation is seen. Aortic valve not well visualized. No aortic regurgitation. Normal appearance of the tricuspid valve. Unable to obtain RVSP due to minimal presence of tricuspid regurgitation. No evidence of tricuspid regurgitation. Normal pericardium with no significant pericardial effusion. suboptimal study. Objective Vitals Vital Signs Date Temp Pulse Resp B/P (MAP) Pulse Ox O2 O2 Flow FiO2 Time Delivery Rate 08/15/18 92 32 134/82 95 Mechanical 06:00 (99) Ventilator 08/15/18 40 05:03 08/15/18 99.3 04:00 Intake and Output 08/14/18 08/14/18 08/15/18 1414:59 22:59 06:59 IntakeIntake Total 599.300 ml 422.94 ml 614.74 ml OutputOutput Total 3200 ml 20 ml BalanceBalance -2600.700 ml 422.94 ml 594.74 ml Results/Medications Result Diagram: 08/15/18 0441 08/15/18 0441 Results 24 hrs Laboratory Tests Test 08/14/18 08:35 08/14/18 20:35 08/15/18 04:41 Bedside Glucose 128 114 White Blood Count 16.3 H Red Blood Count 3.04 L Hemoglobin 8.6 L Hematocrit 26.7 L Mean Corpuscular Volume 87.8 Mean Corpuscular Hemoglobin 28.3 L Mean Corpuscular Hemoglobin Concent 32.2 Red Cell Distribution Width 17.2 H Platelet Count 99 #L Mean Platelet Volume 13.6 H Immature Granulocytes % 5.000 H Neutrophils % Segmented Neutrophils % (Manual) 81 H Band Neutrophils % (Manual) 11 H Lymphocytes % Lymphocytes % (Manual) 3 L Monocytes % Monocytes % (Manual) 3 Eosinophils % Basophils % Myelocytes % (Manual) 2 H Nucleated Red Blood Cells % 2 H Immature Granulocytes # 0.820 H Neutrophils # Neutrophils # (Manual) 13.5 H Band Neutrophils # 1.7 H Lymphocytes (Manual) 0.4 L Lymphocytes # Monocytes # Monocytes # (Manual) 0.4 Eosinophils # Basophils # Myelocytes # 0.3 H Nucleated Red Blood Cells # Platelet Estimate DECREASED Giant Platelets 2 H Polychromasia 1+ Poikilocytosis 3+ Anisocytosis 2+ Microcytosis 1+ Macrocytosis 2+ Sodium Level 139 Potassium Level 4.5 Chloride Level 99 Carbon Dioxide Level 29 Anion Gap 11 Blood Urea Nitrogen 43 H Creatinine 4.04 H Est Glomerular Filtrat Rate mL/min 12 L Glucose Level 114 Calcium Level 8.7 Phosphorus Level 4.4 Magnesium Level 2.5 Medications Current Medications Norepinephrine 250 ml @ 1.875 mls/ hr TITRATE IV Last administered on 08/10/18at 00:41; Admin Dose 5.625 MLS/HR; Start 08/04/18 at 23:15 Ticagrelor (Brilinta) 90 mg BID PO Last administered on 08/14/18 20:18; Admin Dose 90 MG; Start 08/05/18 at 09:00 Morphine Sulfate (morphine) 1 mg Q1H PRN IV PAIN Last administered on 08/05/18 00:55; Admin Dose 1 MG; Start 08/04/18 at 23:30 Docusate Sodium (Colace) 100 mg BID PO Last administered on 08/14/18 20:16; Admin Dose 100 MG; Start 08/05/18 at 09:00 Atorvastatin Calcium (Lipitor) 80 mg DAILY@21 PO Last administered on 08/14/18 20:16; Admin Dose 80 MG; Start 08/05/18 at 21:00 Nitroglycerin/ Dextrose 250 ml @ 1.5 mls/hr TITRATE IV Last administered on 08/05/18 14:22; Admin Dose 72 MLS/HR; Start 08/05/18 at 01:00 Propofol 100 ml @ 2.772 mls/ hr Q12H IV Last administered on 08/15/18 03:55; Admin Dose 13.86 MLS/HR; Start 08/05/18 at 04:00 Midazolam HCl 50 ml @ 1 mls/hr TITRATE IV Last administered on 08/05/18 19:22; Admin Dose 8 MLS/HR; Start 08/05/18 at 07:30 Miscellaneous Information 1 ea NOTE XX ; Start 08/05/18 at 09:00 Acetaminophen (Tylenol Supp) 650 mg Q4H PRN [place] TEMP > 37C Last administered on 08/09/18 04:37; Admin Dose 650 MG; Start 08/05/18 at 11:00 Acetaminophen (Tylenol Liquid) 650 mg Q4H PRN PO TEMP > 37C Last administered on 08/11/18 11:55; Admin Dose 650 MG; Start 08/05/18 at 11:00 Meperidine HCl (Demerol) 25 mg Q4H PRN IV POST OPERATIVE SHIVERING Last administered on 08/05/18 16:31; Admin Dose 25 MG; Start 08/05/18 at 11:00 Eye Lubricant (Akwa Oint) 1 applic Q6 BOTH EYES Last administered on 08/15/18 05:28; Admin Dose 1 APPLIC; Start 08/05/18 at 12:00 Eye Lubricant (Artificial Tears Oph) 2 drop Q6 BOTH EYES Last administered on 08/15/18 05:28; Admin Dose 2 DROP; Start 08/05/18 at 12:00 Insulin Human Regular 100 unit/ Sodium Chloride 100 ml @ 0 mls/hr PER PROTOCOL IV ; Start 08/05/18 at 12:00 Miscellaneous Information (* Miscellaneous Pharmacy Order) Treatment of Hypoglycemia: 1.BG 51... Per protocol XX ; Start 08/05/18 at 12:00 Dextrose (D50w Syringe) 25 ml Q15M PRN IV .DECREASED GLUCOSE; Start 08/05/18 at 12:00 Dextrose (D50w Syringe) 50 ml Q15M PRN IV .DECREASED GLUCOSE; Start 08/05/18 at 12:00 Fentanyl 100 ml @ 2.5 mls/hr TITRATE IV Last administered on 08/15/18at 01:16; Admin Dose 7.5 MLS/HR; Start 08/05/18 at 12:00 Meperidine HCl (Demerol) 12.5 mg Q2H PRN IV POST OPERATIVE SHIVERING; Start 08/05/18 at 17:00 Aspirin (Aspirin) 81 mg DAILY NGT Last administered on 08/14/18 08:03; Admin Dose 81 MG; Start 08/06/18 at 09:00 Diagnostic Test (Pha) (Accu-Chek) 1 ea Q12 XX Last administered on 08/14/18 08:36; Admin Dose 1 EA; Start 08/06/18 at 21:00 Carvedilol (Coreg) 6.25 mg QID PO Last administered on 08/14/18 20:15; Admin Dose 6.25 MG; Start 08/08/18 at 09:00 Multivitamins (Multivitamin) 30 ml DAILY NGT Last administered on 08/14/18 08:04; Admin Dose 30 ML; Start 08/09/18 at 09:00 Zinc Sulfate (Zinc Sulfate) 220 mg DAILY NGT Last administered on 08/14/18 08:04; Admin Dose 220 MG; Start 08/09/18 at 09:00 Folic Acid (Folic Acid) 1 mg DAILY NGT Last administered on 08/14/18 08:04; Admin Dose 1 MG; Start 08/09/18 at 09:00 Ascorbic Acid (Vitamin C) 500 mg DAILY NGT Last administered on 08/14/18 08:04; Admin Dose 500 MG; Start 08/09/18 at 09:00 Albuterol (Ventolin Hfa) 4 puff Q6HWA RESP THERAPY INH Last administered on 08/14/18 19:37; Admin Dose 4 PUFF; Start 08/09/18 at 14:00 Ipratropium Collins (Atrovent Hfa) 4 puff Q6H RESP THERAPY INH Last admi nistered on 08/15/18 01:28; Admin Dose 4 PUFF; Start 08/09/18 at 14:00 Piperacillin Sod/ Tazobactam Sod 50 ml @ 100 mls/hr Q8 IVPB Last administered on 08/15/18 05:27; Admin Dose 100 MLS/HR; Start 08/10/18 at 14:00 IV Flush (NS 10 ml) 10 ml PRN PRN IV IV PROTOCOL; Start 08/11/18 at 16:30 Lansoprazole (Prevacid) 30 mg 0600,1800 PEG Last administered on 08/15/18 05:27; Admin Dose 30 MG; Start 08/11/18 at 18:28 Heparin Sodium (Porcine) (Heparin (1000 Units/ml)) 3,000 unit PRN PRN CATHETER Dialysis Last administered on 08/14/18 14:44; Admin Dose 3,000 UNIT; Start 08/12/18 at 14:30 Ciprofloxacin HCl (Ciprofloxacin HCl Otic) 5 drop BID LEFT EAR Last administered on 08/14/18 20:16; Admin Dose 5 DROP; Start 08/14/18 at 10:00; Stop 08/20/18 at 21:01 Labetalol HCl (Labetalol) 10 mg Q4H PRN IV ELEVATED SYSTOLIC BP > 160; Start 08/14/18 at 19:00 Assessment/Plan Hospital Course (Demo Recall) 1. s/p V. fib cardiac arrest 2. Acute myocardial infarction 3. Status post emergent PCI of the 100% occluded LAD as well as PTCA of the diagonal 4. Diabetes 5. Respiratory failure status post intubation on the vent 6. Hypertension 7. Renal failure : acute on chronic 8. Likely history of congestive heart failure 9. Dyslipidemia 10. Encephalopathy: Clear anoxic brain injury on hypothermia protocol 11. Morbid obesity 12. Anemia 13. elevated LFT 14. fever, bacteremia pneumonia 15. Malnutrition, anasarca . 16. septic shock and bacteremia Recommendations: Continue with aspirin and Brilinta given her multiple stents Antibiotic management as per ID recommendation HD as per renal Vent support respiratory care as per internal medicine and pulmonary consultants. Coreg as tolerated Monitor renal function. f/u renal consult rec regarding hemodialysis PPI . Transfusion prn given her severe anemia and FL/ VF CONSIDER ENT evaluation for oral bleeding . More than 33 minutes of critical care time was for management treatment is critically patient excluding any procedures Thank you for his referral. We will continue to follow along with you LOIS JOHNSON MD [facility] LOIS JOHNSON MD Aug 15, 2018 07:59
--- NOTE | 2018-08-15 08:29 | PN ---
DATE: 08/15/2018 SUBJECTIVE: The patient is critically ill on full ventilatory support. The patient had hemodialysis yesterday and tolerated well. Urinary output has been minimal. OBJECTIVE: VITAL SIGNS: Blood pressure is 134/82, respirations 22, pulse 92, temperature 99.3. HEENT: Head is normocephalic. NECK: Supple. HEART: Regular rate. LUNGS: Show diminished breath sounds at the base. ABDOMEN: Soft, nontender to palpation without rebound or guarding. EXTREMITIES: Negative for clubbing, cyanosis, positive edema. DERMATOLOGIC: No rashes. MUSCULOSKELETAL: No joint effusion. NEUROLOGIC: The patient is obtunded. MEDICATIONS: Reviewed. LABORATORY DATA: Shows white count 16.3, hemoglobin 8.6, platelet count is 99. Sodium 139, potassiu m 4.5, BUN 43, creatinine 4.04. The patient's cultures have been reviewed. IMAGING STUDIES: Imaging studies have been reviewed. ASSESSMENT AND PLAN: 1. Anuric acute kidney injury with previously normal baseline creatinine. Etiology of acute kidney injury is secondary to acute tubular necrosis due to sepsis, shock, contrast-associated nephropathy. The patient is currently dialysis dependent. Anticipate dialysis again today for solute clearance a nd volume removal. We will dialyze for 3 hours 2k bath, calcium 2.5. 2. Metabolic acidosis, improved with dialysis. 3. Anemia. Continue to monitor hemoglobin and hematocrit levels. 4. Mineral bone disorder, monitor calcium and phosphorus levels. 5. Volume overload. Continue ultrafiltration with hemodialysis today. 6. Sepsis, status post shock secondary to pneumonia and bacteremia. Continue current antibiotic reg imen appropriately dosed. 7. Ventilator-dependent respiratory failure. Vent settings and ABG was reviewed. Continue to monit or. 8. Cardiac arrest with ST elevated myocardial infarction. The patient is status post cardiac cathet erization with multiple stent placement. Continue medical management. Follow up with cardiology. 9. Acute encephalopathy, etiology is toxic metabolic. 10. Gastrointestinal and deep vein thrombosis prophylaxis. Please note I spent over 30 minutes of critical care time with this patient. Dictated By: BHUMI REDDY DO NR/NTS Conf#: [id number] DID#: [id number] CC: LAUREN GREWAL MD; HARPAL PEDROZA MD; DANIAL TUCKER MD;*EndCC*
[2018-08-15] MEDS: ZINC SULFATE 220 MG CAP NGT SCH (08:44)
[2018-08-15] MEDS: ASPIRIN 81 MG TAB NGT SCH (08:44)
[2018-08-15] MEDS: FOLIC ACID 1 MG TAB NGT SCH (08:44)
[2018-08-15] MEDS: MULTIVITAMINS 30 ML CUP NGT SCH (08:44)
[2018-08-15] MEDS: ASCORBIC ACID 500 MG TAB NGT SCH (08:44)
[2018-08-15] MEDS: DOCUSATE SODIUM 100 MG CAP PO SCH ×2 (08:45→20:08)
[2018-08-15] MEDS: TICAGRELOR 90 MG TABLET PO SCH ×2 (08:48→20:13)
[2018-08-15] MEDS: ACCU-CHEK XX SCH ×2 (09:04→20:38)
--- NOTE | 2018-08-15 11:15 | CONS ---
Consult Date/Type/Reason Admit Date/Time Aug 04, 2018 at 23:10 Initial Consult Date 08/05/18 Type of Consult Pulmonary Requesting Provider: HARPAL AGGARWAL MD Date/Time of Note DATE: 08/15/18 TIME: 11:14 Subjective Desaturation with bradycardia and MRI yesterday. Procedure was not performed patient brought back to ICU where she required bag valve ventilation to improve oxygen saturations. Chest x-ray this morning looks like ARDS. Objective Vital Signs Date Temp Pulse Resp B/P (MAP) Pulse Ox O2 O2 Flow FiO2 Time Delivery Rate 08/15/18 40 08:00 08/15/18 98.6 98 28 151/92 97 Mechanical 08:00 (111) Ventilator Intake and Output 08/14/18 08/14/18 08/15/18 1515:00 23:00 07:00 IntakeIntake Total 499.300 ml 436.80 ml 614.74 ml OutputOutput Total 3200 ml 20 ml BalanceBalance -2700.700 ml 436.80 ml 594.74 ml Exam GENERAL: Well-nourished well-developed lady orally intubated on mechanical ventilation VITAL SIGNS: per chart NECK: Supple. No JVD or lymphadenopathy. CARDIAC EXAM: S1, S2. No added sounds or murmurs. CHEST: clear bilaterally, No added sounds, rales or wheezes ABDOMEN: Soft, nontender. No guarding or rebound. EXTREMITIES: No cyanosis, clubbing or edema. NEUROLOGIC: Unable to assess Vent Setting Ventilator Support Mode: AC Fraction of Inspired Oxygen pe: 40 Positive End Expiratory Pressu: 8.0 Results/Medications Result Diagram: 08/15/18 1014 08/15/18 0441 Results 24 hrs Laboratory Tests Test 08/14/18 20:35 08/15/18 04:41 08/15/18 09:04 08/15/18 10:14 Bedside Glucose 114 119 White Blood Count 16.3 H Red Blood Count 3.04 L Hemoglobin 8.6 L Hematocrit 26.7 L Mean Corpuscular 87.8 Volume Mean Corpuscular 28.3 L Hemoglobin Mean Corpuscular 32.2 Hemoglobin Concent Red Cell 17.2 H Distribution Width Platelet Count 99 #L 107 L Mean Platelet Volume 13.6 H Immature 5.000 H Granulocytes % Neutrophils % Segmented 81 H Neutrophils % (Manual) Band Neutrophils % 11 H (Manual) Lymphocytes % Lymphocytes % 3 L (Manual) Monocytes % Monocytes % (Manual) 3 Eosinophils % Basophils % Myelocytes % 2 H (Manual) Nucleated Red Blood 2 H Cells % Immature 0.820 H Granulocytes # Neutrophils # Neutrophils # 13.5 H (Manual) Band Neutrophils # 1.7 H Lymphocytes (Manual) 0.4 L Lymphocytes # Monocytes # Monocytes # (Manual) 0.4 Eosinophils # Basophils # Myelocytes # 0.3 H Nucleated Red Blood Cells # Platelet Estimate DECREASED Giant Platelets 2 H Polychromasia 1+ Poikilocytosis 3+ Anisocytosis 2+ Microcytosis 1+ Macrocytosis 2+ Sodium Level 139 Potassium Level 4.5 Chloride Level 99 Carbon Dioxide Level 29 Anion Gap 11 Blood Urea Nitrogen 43 H Creatinine 4.04 H Est Glomerular 12 L Filtrat Rate mL/min Glucose Level 114 Calcium Level 8.7 Phosphorus Level 4.4 Magnesium Level 2.5 Prothrombin Time 13.3 Prothrombin Time 1.0 Ratio INR International 1.00 Normalized Ratio Activated 40.5 H Partial Thromboplast Time Thrombin Time 18.1 Medications Current Medications Norepinephrine 250 ml @ 1.875 mls/ hr TITRATE IV Last administered on 07/21 00:41; Admin Dose 5.625 MLS/HR; Start 08/04/18 at 23:15 Ticagrelor (Brilinta) 90 mg BID PO Last administered on 08/15/18 08:48; Admin Dose 90 MG; Start 08/05/18 at 09:00 Morphine Sulfate (morphine) 1 mg Q1H PRN IV PAIN Last administered on 08/05/18at 00:55; Admin Dose 1 MG; Start 08/04/18 at 23:30 Docusate Sodium (Colace) 100 mg BID PO Last administered on 08/14/18 20:16; Admin Dose 100 MG; Start 08/05/18 at 09:00 Atorvastatin Calcium (Lipitor) 80 mg DAILY@21 PO Last administered on 08/14/18 20:16; Admin Dose 80 MG; Start 08/05/18 at 21:00 Nitroglycerin/ Dextrose 250 ml @ 1.5 mls/hr TITRATE IV Last administered on 08/05/18at 14:22; Admin Dose 72 MLS/HR; Start 08/05/18 at 01:00 Miscellaneous Information 1 ea NOTE XX ; Start 08/05/18 at 09:00 Acetaminophen (Tylenol Supp) 650 mg Q4H PRN [place] TEMP > 37C Last administered on 08/09/18 04:37; Admin Dose 650 MG; Start 08/05/18 at 11:00 Acetaminophen (Tylenol Liquid) 650 mg Q4H PRN PO TEMP > 37C Last administered on 08/11/18 11:55; Admin Dose 650 MG; Start 08/05/18 at 11:00 Meperidine HCl (Demerol) 25 mg Q4H PRN IV POST OPERATIVE SHIVERING Last administered on 08/05/18 16:31; Admin Dose 25 MG; Start 08/05/18 at 11:00 Eye Lubricant (Akwa Oint) 1 applic Q6 BOTH EYES Last administered on 08/15/18 05:28; Admin Dose 1 APPLIC; Start 08/05/18 at 12:00 Eye Lubricant (Artificial Tears Oph) 2 drop Q6 BOTH EYES Last administered on 08/15/18 05:28; Admin Dose 2 DROP; Start 08/05/18 at 12:00 Insulin Human Regular 100 unit/ Sodium Chloride 100 ml @ 0 mls/hr PER PROTOCOL IV ; Start 08/05/18 at 12:00 Miscellaneous Information (* Miscellaneous Pharmacy Order) Treatment of Hypoglycemia: 1.BG 51... Per protocol XX ; Start 08/05/18 at 12:00 Dextrose (D50w Syringe) 25 ml Q15M PRN IV .DECREASED GLUCOSE; Start 08/05/18 at 12:00 Dextrose (D50w Syringe) 50 ml Q15M PRN IV .DECREASED GLUCOSE; Start 08/05/18 at 12:00 Fentanyl 100 ml @ 2.5 mls/hr TITRATE IV Last administered on 08/15/18 01:16; Admin Dose 7.5 MLS/HR; Start 08/05/18 at 12:00 Meperidine HCl (Demerol) 12.5 mg Q2H PRN IV POST OPERATIVE SHIVERING; Start 08/05/18 at 17:00 Aspirin (Aspirin) 81 mg DAILY NGT Last administered on 08/15/18 08:44; Admin Dose 81 MG; Start 08/06/18 at 09:00 Diagnostic Test (Pha) (Accu-Chek) 1 ea Q12 XX Last administered on 08/15/18 09:04; Admin Dose 1 EA; Start 08/06/18 at 21:00 Carvedilol (Coreg) 6.25 mg QID PO Last administered on 08/15/18 08:44; Admin Dose 6.25 MG; Start 08/08/18 at 09:00 Multivitamins (Multivitamin) 30 ml DAILY NGT Last administered on 08/15/18 08:44; Admin Dose 30 ML; Start 08/09/18 at 09:00 Zinc Sulfate (Zinc Sulfate) 220 mg DAILY NGT Last administered on 08/15/18 08:44; Admin Dose 220 MG; Start 08/09/18 at 09:00 Folic Acid (Folic Acid) 1 mg DAILY NGT Last administered on 08/15/18 08:44; Ad min Dose 1 MG; Start 08/09/18 at 09:00 Ascorbic Acid (Vitamin C) 500 mg DAILY NGT Last administered on 08/15/18 08:44; Admin Dose 500 MG; Start 08/09/18 at 09:00 Albuterol (Ventolin Hfa) 4 puff Q6HWA RESP THERAPY INH Last administered on 08/14/18 19:37; Admin Dose 4 PUFF; Start 08/09/18 at 14:00 Ipratropium Innis (Atrovent Hfa) 4 puff Q6H RESP THERAPY INH Last administered on 08/15/18 01:28; Admin Dose 4 PUFF; Start 08/09/18 at 14:00 Piperacillin Sod/ Tazobactam Sod 50 ml @ 100 mls/hr Q8 IVPB Last administered on 08/15/18 05:27; Admin Dose 100 MLS/HR; Start 08/10/18 at 14:00 IV Flush (NS 10 ml) 10 ml PRN PRN IV IV PROTOCOL; Start 08/11/18 at 16:30 Lansoprazole (Prevacid) 30 mg 0600,1800 PEG Last administered on 08/15/18 05:27; Admin Dose 30 MG; Start 08/11/18 at 18:28 Heparin Sodium (Porcine) (Heparin (1000 Units/ml)) 3,000 unit PRN PRN CATHETER Dialysis Last administered on 08/14/18 14:44; Admin Dose 3,000 UNIT; Start 08/12/18 at 14:30 Ciprofloxacin HCl (Ciprofloxacin HCl Otic) 5 drop BID LEFT EAR Last administered on 08/14/18at 20:16; Admin Dose 5 DROP; Start 08/14/18 at 10:00; Stop 08/20/18 at 21:01 Labetalol HCl (Labetalol) 10 mg Q4H PRN IV ELEVATED SYSTOLIC BP > 160; Start 08/14/18 at 19:00 Midazolam HCl 50 ml @ 1 mls/hr TITRATE IV ; Start 08/15/18 at 11:00 Assessment/Plan Hospital Course (Demo Recall) IMP: 1. Ventricular Fibrillation Arrest--s/p ROSC 2/2 STEMI s/p PCI status post hypothermia protocol. Multivessel coronary artery disease status post stent placement x3 2. STEMI, Status post stent x3 placement. 3. Probable anoxic encephalopathy given persistent altered mental status despite sedation vacations. 4. Hypoxemic respiratory failure/ARDS 5. HUSEYIN--likely ATN continues hemodialysis 6. Ischemic hepatopathy--2/2 arrest 7. Metabolic acidosis--2/2 arrest 8. Anemia 9 Thrombocytopenia RECS: 1. Neuro recommendations 2. MRI if stable. 3. Allow for permissive hypercapnia given poor lung/chest wall compliance (Pplat ~ 38). 4. Low tidal volume strategy as tolerated 5. Continue Abx 6. Pulmonary toilet 7. Hemodialysis per nephrology 8. Tube feeding as tolerated 9. Family conference regarding goals of care 10. Transition from propofol to Versed Critical care time 40 minutes. Extremely poor prognosis CHINO ANDERSON MD, [facility] Aug 15, 2018 11:15
--- NOTE | 2018-08-15 11:38 | CONS ---
Assessment/Plan Assessment/Plan Hospital Course 38 yo F w/ reported Hx of HTN and DM2 who is admitted to the [facility] ICU s/p cardiac arrest. She is now s/p cardiac catheterization w/ 2 coronary stents. now s/p targeted temperature therapy. Neurology is consulted given persistent encephalopathy...which is likely multifactorial -- toxic-metabolic, medications...hypoxic-ischemic? CTH is is notable for scalp swelling, without obvious acute intracranial pathology. EEG is without epileptiform activity Ammonia level wnl P: MRI brain for further characterization when medically able Wean sedating medications as soon as able Continued medical management per primary Will follow clinically Consultation Date/Type/Reason Admit Date/Time Aug 04, 2018 at 23:10 Type of Consult Neurology Reason for Consultation ams Requesting Provider: HARPAL AGGARWAL MD Date/Time of Note DATE: 08/15/18 TIME: 11:38 24 HR Interval Summary Free Text/Dictation Continues critical care. Pt reportedly did not tolerate MRI yesterday. Currently on sedation. Subjective hx not possible: pt non-verbal, pt critical Exam Vital Signs Vitals Vital Signs Date Temp Pulse Resp B/P (MAP) Pulse Ox O2 O2 Flow FiO2 Time Delivery Rate 08/15/18 40 08:00 08/15/18 98.6 98 28 151/92 97 Mechanical 08:00 (111) Ventilator Intake and Output 08/14/18 08/14/18 08/15/18 1414:59 22:59 06:59 IntakeIntake Total 599.300 ml 422.94 ml 614.74 ml OutputOutput Total 3200 ml 20 ml BalanceBalance -2600.700 ml 422.94 ml 594.74 ml Exam PE: Gen Appearance: No Apparent Distress HEENT: Intubated Cardiovascular: Regular rate Abdomen: Soft Extremities: Dry NE: The patient was sedated and nonverbal. Cranial nerve examination was limited by mental status. Pupils were equal and reactive to light. There was no afferent pupillary defect. Funduscopic examination was limited. Face was grossly symmetric, w/ present corneal and cough reflexes. Tone was normal. Muscle bulk was normal. I did not see fasciculations. The patient did not withdraw to noxious stimulation x 4. Coordination and gait testing was limited by mental status. Arm and leg reflexes were within normal limits and symmetric. Alvarez's sign was absent. Plantar responses were flexor. KAYCEE ESCOBEDO NP Aug 15, 2018 11:38 RANDY GARCIA Aug 15, 2018 13:35
[2018-08-15] MEDS: MIDAZOLAM (DRIP) 50 mg/50 mL 50 ML IV SCH ×2 (11:49→18:08)
[2018-08-15] MEDS: CIPROFLOXACIN HCL OTIC DROP 0.25 ML LEFT EAR SCH ×2 (11:58→20:08)
--- NOTE | 2018-08-15 14:06 | PN ---
Date/Time of Note Date/Time of Note DATE: 08/15/18 TIME: 14:02 Objective Vitals Vital Signs Date Temp Pulse Resp B/P (MAP) Pulse Ox O2 O2 Flow FiO2 Time Delivery Rate 08/15/18 98 12:00 08/15/18 32 142/88 95 11:30 (106) 08/15/18 Mechanical 11:00 Ventilator 08/15/18 40 08:00 08/15/18 98.6 08:00 Intake and Output 08/14/18 08/14/18 08/15/18 1515:00 23:00 07:00 IntakeIntake Total 499.300 ml 436.80 ml 614.74 ml OutputOutput Total 3200 ml 20 ml BalanceBalance -2700.700 ml 436.80 ml 594.74 ml Results Result Diagram: 08/15/18 1014 08/15/18 0441 Medications Medications Current Medications Norepinephrine 250 ml @ 1.875 mls/ hr TITRATE IV Last administered on 08/10/18 00:41; Admin Dose 5.625 MLS/HR; Start 08/04/18 at 23:15 Ticagrelor (Brilinta) 90 mg BID PO Last administered on 08/15/18at 08:48; Admin Dose 90 MG; Start 08/05/18 at 09:00 Morphine Sulfate (morphine) 1 mg Q1H PRN IV PAIN Last administered on 08/05/18at 00:55; Admin Dose 1 MG; Start 08/04/18 at 23:30 Docusate Sodium (Colace) 100 mg BID PO Last administered on 08/14/18at 20:16; Admin Dose 100 MG; Start 08/05/18 at 09:00 Atorvastatin Calcium (Lipitor) 80 mg DAILY@21 PO Last administered on 08/14/18at 20:16; Admin Dose 80 MG; Start 08/05/18 at 21:00 Nitroglycerin/ Dextrose 250 ml @ 1.5 mls/hr TITRATE IV Last administered on 08/05/18at 14:22; Admin Dose 72 MLS/HR; Start 08/05/18 at 01:00 Miscellaneous Information 1 ea NOTE XX ; Start 08/05/18 at 09:00 Acetaminophen (Tylenol Supp) 650 mg Q4H PRN IN TEMP > 37C Last administered on 08/09/18at 04:37; Admin Dose 650 MG; Start 08/05/18 at 11:00 Acetaminophen (Tylenol Liquid) 650 mg Q4H PRN PO TEMP > 37C Last administered on 08/11/18 11:55; Admin Dose 650 MG; Start 08/05/18 at 11:00 Meperidine HCl (Demerol) 25 mg Q4H PRN IV POST OPERATIVE SHIVERING Last administered on 08/05/18 16:31; Admin Dose 25 MG; Start 08/05/18 at 11:00 Eye Lubricant (Akwa Oint) 1 applic Q6 BOTH EYES Last administered on 08/15/18 12:42; Admin Dose 1 APPLIC; Start 08/05/18 at 12:00 Eye Lubricant (Artificial Tears Oph) 2 drop Q6 BOTH EYES Last administered on 08/15/18 12:42; Admin Dose 2 DROP; Start 08/05/18 at 12:00 Insulin Human Regular 100 unit/ Sodium Chloride 100 ml @ 0 mls/hr PER PROTOCOL IV ; Start 08/05/18 at 12:00 Miscellaneous Information (* Miscellaneous Pharmacy Order) Treatment of Hypoglycemia: 1.BG 51... Per protocol XX ; Start 08/05/18 at 12:00 Dextrose (D50w Syringe) 25 ml Q15M PRN IV .DECREASED GLUCOSE; Start 08/05/18 at 12:00 Dextrose (D50w Syringe) 50 ml Q15M PRN IV .DECREASED GLUCOSE; Start 08/05/18 at 12:00 Fentanyl 100 ml @ 2.5 mls/hr TITRATE IV Last administered on 08/15/18 13:40; Admin Dose 7.5 MLS/HR; Start 08/05/18 at 12:00 Meperidine HCl (Demerol) 12.5 mg Q2H PRN IV POST OPERATIVE SHIVERING; Start 08/05/18 at 17:00 Aspirin (Aspirin) 81 mg DAILY NGT Last administered on 08/15/18 08:44; Admin Dose 81 MG; Start 08/06/18 at 09:00 Diagnostic Test (Pha) (Accu-Chek) 1 ea Q12 XX Last administered on 08/15/18 09:04; Admin Dose 1 EA; Start 08/06/18 at 21:00 Carvedilol (Coreg) 6.25 mg QID PO Last administered on 08/15/18 12:43; Admin Dose 6.25 MG; Start 08/08/18 at 09:00 Multivitamins (Multivitamin) 30 ml DAILY NGT Last administered on 08/15/18 08:44; Admin Dose 30 ML; Start 08/09/18 at 09:00 Zinc Sulfate (Zinc Sulfate) 220 mg DAILY NGT Last administered on 08/15/18 08:44; Admin Dose 220 MG; Start 08/09/18 at 09:00 Folic Acid (Folic Acid) 1 mg DAILY NGT Last administered on 08/15/18 08:44; Admin Dose 1 MG; Start 08/09/18 at 09:00 Ascorbic Acid (Vitamin C) 500 mg DAILY NGT Last administered on 08/15/18 08:44; Admin Dose 500 MG; Start 08/09/18 at 09:00 Albuterol (Ventolin Hfa) 4 puff Q6HWA RESP THERAPY INH Last administered on 08/14/18 19:37; Admin Dose 4 PUFF; Start 08/09/18 at 14:00 Ipratropium [place] (Atrovent Hfa) 4 puff Q6H RESP THERAPY INH Last administered on 08/15/18 01:28; Admin Dose 4 PUFF; Start 08/09/18 at 14:00 Piperacillin Sod/ Tazobactam Sod 50 ml @ 100 mls/hr Q8 IVPB Last administered on 08/15/18 05:27; Admin Dose 100 MLS/HR; Start 08/10/18 at 14:00 IV Flush (NS 10 ml) 10 ml PRN PRN IV IV PROTOCOL; Start 08/11/18 at 16:30 Lansoprazole (Prevacid) 30 mg 0600,1800 PEG Last administered on 08/15/18 05:27; Admin Dose 30 MG; Start 08/11/18 at 18:28 Heparin Sodium (Porcine) (Heparin (1000 Units/ml)) 3,000 unit PRN PRN CATHETER Dialysis Last administered on 08/14/18 14:44; Admin Dose 3,000 UNIT; Start 08/12/18 at 14:30 Ciprofloxacin HCl (Ciprofloxacin HCl Otic) 5 drop BID LEFT EAR Last administered on 08/15/18 11:58; Admin Dose 5 DROP; Start 08/14/18 at 10:00; Stop 08/20/18 at 21:01 Labetalol HCl (Labetalol) 10 mg Q4H PRN IV ELEVATED SYSTOLIC BP > 160; Start 08/14/18 at 19:00 Midazolam HCl 50 ml @ 1 mls/hr TITRATE IV Last administered on 08/15/18at 11:49; Admin Dose 1 MLS/HR; Start 08/15/18 at 11:00 VTE Prophylaxis Risk score (from [facility] [place])>0 risk: 14 SCD applied (from [facility]): No SCD contraindication: other Lines/Catheters IV Catheter Type: Bajwa in Place: Yes Cont'd bajwa catheter reason: terminal illness/intractable pain Assessment/Plan Hospital Course Subjective Patient continues to have blood clots from her nose and mouth, no copious bleeding however. Patient desaturated during MRI yesterday, had to be bagged back in the ICU. Patient continues to be extremely agitated when sedation is positive. Objective Physical exam General: Patient is laying in bed intubated and sedated Mentation: Patient is not alert and oriented 4, Head: Normocephalic atraumatic Eyes: EOMI, pupils reactive to light Ears: Left auditory canal has dried up blood, unable to properly visualize tymp anic membrane, right auditory canal clear Neck: Supple, nontender, midline Respiratory: Coarse to auscultation bilaterally Cardiovascular: regular rate, no obvious murmurs Gastrointestinal: non-tender to palpation, bowel sounds heard. Neurological: Unable to assess secondary to sedation Skin: No new skin lesions Assessment/Plan 1. Acute toxic/metabolic encephalopathy - Neurology recs appreciated and CT head noted -MRI when able per neurology -At this time it appears that the initial incident led to anoxic encephalopathy due to unknown downtime during cardiac arrest before she came into the hospital. - monitor for improvement in neurological status, very poor prognosis at this time, patient only has minimal eyelid waking up per nursing when sedation is possible but too agitated to continue with out sedation. 2. Septic shock secondary to PNA and bacteremia - WBC to be monitored closely - Blood cultures and sputum culture results noted. Will repeat blood cultures as needed - ID consulted for antibiotic recommendations. - Continue current antibiotics and pressor support with goal MAP> 65 3. Bilateral Pneumonia - CXR noted - Pulm on board and appreciate recommendations. Will continue current management and monitor for improvement in respiratory status - continue bronchodilators -ID on board Left auditory canal bleeding -Very mild, only dried blood at this time, however monitor closely as patient is on antiplatelet therapy due to coronary artery disease -ok per ID to start cipro eardrops Sinus infection -Continue IV antibiotics and eardrops, -ID recommended she is appreciated Anemia -Mild drop in hemoglobin, will need to monitor closely as cardiology as previously mentioned patient is on dual antiplatelet therapy, if continues to drop, cardiology may consider switching Brilinta to Plavix. -Patient is losing some blood from the nasopharyngeal area per nursing staff however is not a copious loss, there are some blood clots -ENT physician consulted, Dr. Martinez will see patient 4. CAD s/p PCI x2 - Cardiology on board and appreciate recommendations. Stressed importance of continuing DAPT given recent stent placements and high risk of restenosis - s/p emergent Cath 08/05 with successful PTCA and stenting of proximal and mid LAD, PTCA of the large first diagonal and thrombectomy of the LAD - Repeat PCI on 08/07 performed with stenting to LCx - plans for stenting of RCA prior to discharge if possible - ECHO results noted 5. Acute hypoxic respiratory failure - exacerbated by #1 - Pulm on board for vent management. appreciate consultation 6. HUSEYIN-now on dialysis - Nephrology on board and appreciate recommendations. -Now on HD - secondary to septic shock, ATN vs prerenal vs contrast induced nephropathy - will avoid nephrotoxic agents 7. Diabetes - A1c noted 8. Transaminitis-monitor closely - most likely secondary to hypoperfusion - continue monitoring LFTs - RUQ US noted 9. V-fib cardiac arrest secondary to STEMI - Completed hypothermia protocol - unknown how long patient was down for in the field 10. Disposition - Continue close monitoring in ICU while requiring vent management. -Unfortunately there is not significant improvement however according to nurses when sedation is turned down patient is slightly more arousable by opening her eyes a little bit but too agitated for sedation not to be continued -ENT to evaluate nasal bleeding as well as dried blood in the ear >30 minutes of critical care time spent with patient and family at bedside HARPAL PEDROZA Aug 15, 2018 14:06
--- NOTE | 2018-08-15 14:09 | CONS ---
Assessment/Plan Assessment/Plan Hospital Course (Demo Recall) Patient remains obtunded intubated in no distress no fevers overnight WBC 16.3 H&H 8.6 and 26.7 platelets 99 bands 11 Chest x-ray this morning revealed no significant change in diffuse bilateral airspace disease Antimicrobials: Zosyn Microbiology: Urine culture on admission grew E. coli and Proteus, blood cultures growing oxacillin sensitive staph aureus endotracheal aspirate also growing oxacillin sensitive staph aureus ear drainage preliminary growing staph aureus, repeat blood cultures 2 days ago negative Indwelling: Endotracheal tube, orogastric tube, right femoral Devan, right upper extremity PICC line Physical examination: Obese well-developed middle-aged woman who is intubated in no distress. Head atraumatic normocephalic neck is supple chest rise symmetrical breath sounds diminished bases. Heart: S1-S2. Abdomen distended. Bowel sounds hypoactive. Extremities cyanotic Assessment: 1. Severe sepsis 2. Oxacillin sensitive staph aureus bacteremia 3. Oxacillin sensitive staph aureus pneumonia 4. Polymicrobial UTI 5. ST elevation MA, status post stent 6. Status post V. fib arrest 7. Acute renal failure, started on hemodialysis 8. Encephalopathy, possibly anoxic 9. Anemia and thrombocytopenia 10. Acute sinusitis and bilateral mastoiditis 11. Morbid obesity Plan: Remains unchanged, continue antibiotics, vent management per pulmonary, neurology recommendations, pending MRI when patient is more stable. Prognosis poor Consultation Date/Type/Reason Admit Date/Time Aug 04, 2018 at 23:10 Initial Consult Date 08/12/18 Type of Consult id Requesting Provider: HARPAL AGGARWAL MD Date/Time of Note DATE: 08/15/18 TIME: 14:07 Exam/Review of Systems Exam Vitals Vital Signs Date Temp Pulse Resp B/P (MAP) Pulse Ox O2 O2 Flow FiO2 Time Delivery Rate 08/15/18 98 12:00 08/15/18 32 142/88 95 11:30 (106) 08/15/18 Mechanical 11:00 Ventilator 08/15/18 40 08:00 08/15/18 98.6 08:00 Intake and Output 08/14/18 08/14/18 08/15/18 1414:59 22:59 06:59 IntakeIntake Total 599.300 ml 422.94 ml 614.74 ml OutputOutput Total 3200 ml 20 ml BalanceBalance -2600.700 ml 422.94 ml 594.74 ml Results Result Diagram: 08/15/18 1014 08/15/18 0441 Results 24hrs Laboratory Tests Test 08/14/18 20:35 08/15/18 04:41 08/15/18 09:04 08/15/18 10:14 Bedside Glucose 114 119 White Blood Count 16.3 H Red Blood Count 3.04 L Hemoglobin 8.6 L Hematocrit 26.7 L Mean Corpuscular 87.8 Volume Mean Corpuscular 28.3 L Hemoglobin Mean Corpuscular 32.2 Hemoglobin Concent Red Cell 17.2 H Distribution Width Platelet Count 99 #L 107 L Mean Platelet Volume 13.6 H Immature 5.000 H Granulocytes % Neutrophils % Segmented 81 H Neutrophils % (Manual) Band Neutrophils % 11 H (Manual) Lymphocytes % Lymphocytes % 3 L (Manual) Monocytes % Monocytes % (Manual) 3 Eosinophils % Basophils % Myelocytes % 2 H (Manual) Nucleated Red Blood 2 H Cells % Immature 0.820 H Granulocytes # Neutrophils # Neutrophils # 13.5 H (Manual) Band Neutrophils # 1.7 H Lymphocytes (Manual) 0.4 L Lymphocytes # Monocytes # Monocytes # (Manual) 0.4 Eosinophils # Basophils # Myelocytes # 0.3 H Nucleated Red Blood Cells # Platelet Estimate DECREASED Giant Platelets 2 H Polychromasia 1+ Poikilocytosis 3+ Anisocytosis 2+ Microcytosis 1+ Macrocytosis 2+ Sodium Level 139 Potassium Level 4.5 Chloride Level 99 Carbon Dioxide Level 29 Anion Gap 11 Blood Urea Nitrogen 43 H Creatinine 4.04 H Est Glomerular 12 L Filtrat Rate mL/min Glucose Level 114 Calcium Level 8.7 Phosphorus Level 4.4 Magnesium Level 2.5 Prothrombin Time 13.3 Prothrombin Time 1.0 Ratio INR International 1.00 Normalized Ratio Activated 40.5 H Partial Thromboplast Time Thrombin Time 18.1 Medications Medication Current Medications Norepinephrine 250 ml @ 1.875 mls/ hr TITRATE IV Last administered on 08/10/18at 00:41; Admin Dose 5.625 MLS/HR; Start 08/04/18 at 23:15 Ticagrelor (Brilinta) 90 mg BID PO Last administered on 08/15/18at 08:48; Admin Dose 90 MG; Start 08/05/18 at 09:00 Morphine Sulfate (morphine) 1 mg Q1H PRN IV PAIN Last administered on 08/05/18 00:55; Admin Dose 1 MG; Start 08/04/18 at 23:30 Docusate Sodium (Colace) 100 mg BID PO Last administered on 08/14/18 20:16; Admin Dose 100 MG; Start 08/05/18 at 09:00 Atorvastatin Calcium (Lipitor) 80 mg DAILY@21 PO Last administered on 08/14/18 20:16; Admin Dose 80 MG; Start 08/05/18 at 21:00 Nitroglycerin/ Dextrose 250 ml @ 1.5 mls/hr TITRATE IV Last administered on 08/05/18 14:22; Admin Dose 72 MLS/HR; Start 08/05/18 at 01:00 Miscellaneous Information 1 ea NOTE XX ; Start 08/05/18 at 09:00 Acetaminophen (Tylenol Supp) 650 mg Q4H PRN [place] TEMP > 37C Last administered on 08/09/18at 04:37; Admin Dose 650 MG; Start 08/05/18 at 11:00 Acetaminophen (Tylenol Liquid) 650 mg Q4H PRN PO TEMP > 37C Last administered on 08/11/18at 11:55; Admin Dose 650 MG; Start 08/05/18 at 11:00 Meperidine HCl (Demerol) 25 mg Q4H PRN IV POST OPERATIVE SHIVERING Last administered on 08/05/18at 16:31; Admin Dose 25 MG; Start 08/05/18 at 11:00 Eye Lubricant (Akwa Oint) 1 applic Q6 BOTH EYES Last administered on 08/15/18at 12:42; Admin Dose 1 APPLIC; Start 08/05/18 at 12:00 Eye Lubricant (Artificial Tears Oph) 2 drop Q6 BOTH EYES Last administered on 08/15/18at 12:42; Admin Dose 2 DROP; Start 08/05/18 at 12:00 Insulin Human Regular 100 unit/ Sodium Chloride 100 ml @ 0 mls/hr PER PROTOCOL IV ; Start 08/05/18 at 12:00 Miscellaneous Information (* Miscellaneous Pharmacy Order) Treatment of Hypoglycemia: 1.BG 51... Per protocol XX ; Start 08/05/18 at 12:00 Dextrose (D50w Syringe) 25 ml Q15M PRN IV .DECREASED GLUCOSE; Start 08/05/18 at 12:00 Dextrose (D50w Syringe) 50 ml Q15M PRN IV .DECREASED GLUCOSE; Start 08/05/18 at 12:00 Fentanyl 100 ml @ 2.5 mls/hr TITRATE IV Last administered on 08/15/18 13:40; Admin Dose 7.5 MLS/HR; Start 08/05/18 at 12:00 Meperidine HCl (Demerol) 12.5 mg Q2H PRN IV POST OPERATIVE SHIVERING; Start 08/05/18 at 17:00 Aspirin (Aspirin) 81 mg DAILY NGT Last administered on 08/15/18 08:44; Admin Dose 81 MG; Start 08/06/18 at 09:00 Diagnostic Test (Pha) (Accu-Chek) 1 ea Q12 XX Last administered on 08/15/18 09:04; Admin Dose 1 EA; Start 08/06/18 at 21:00 Carvedilol (Coreg) 6.25 mg QID PO Last administered on 08/15/18 12:43; Admin Dose 6.25 MG; Start 08/08/18 at 09:00 Multivitamins (Multivitamin) 30 ml DAILY NGT Last administered on 08/15/18 08:44; Admin Dose 30 ML; Start 08/09/18 at 09:00 Zinc Sulfate (Zinc Sulfate) 220 mg DAILY NGT Last administered on 08/15/18 08:44; Admin Dose 220 MG; Start 08/09/18 at 09:00 Folic Acid (Folic Acid) 1 mg DAILY NGT Last administered on 08/15/18 08:44; Admin Dose 1 MG; Start 08/09/18 at 09:00 Ascorbic Acid (Vitamin C) 500 mg DAILY NGT Last administered on 08/15/18 08:44; Admin Dose 500 MG; Start 08/09/18 at 09:00 Albuterol (Ventolin Hfa) 4 puff Q6HWA RESP THERAPY INH Last administered on 08/15/18 13:35; Admin Dose 4 PUFF; Start 08/09/18 at 14:00 Ipratropium [place] (Atrovent Hfa) 4 puff Q6H RESP THERAPY INH Last administered on 08/15/18 13:34; Admin Dose 4 PUFF; Start 08/09/18 at 14:00 Piperacillin Sod/ Tazobactam Sod 50 ml @ 100 mls/hr Q8 IVPB Last administered on 08/15/18at 05:27; Admin Dose 100 MLS/HR; Start 08/10/18 at 14:00 IV Flush (NS 10 ml) 10 ml PRN PRN IV IV PROTOCOL; Start 08/11/18 at 16:30 Lansoprazole (Prevacid) 30 mg 0600,1800 PEG Last administered on 08/15/18at 05:27; Admin Dose 30 MG; Start 08/11/18 at 18:28 Heparin Sodium (Porcine) (Heparin (1000 Units/ml)) 3,000 unit PRN PRN CATHETER Dialysis Last administered on 08/14/18at 14:44; Admin Dose 3,000 UNIT; Start 08/12/18 at 14:30 Ciprofloxacin HCl (Ciprofloxacin HCl Otic) 5 drop BID LEFT EAR Last administered on 08/15/18at 11:58; Admin Dose 5 DROP; Start 08/14/18 at 10:00; Stop 08/20/18 at 21:01 Labetalol HCl (Labetalol) 10 mg Q4H PRN IV ELEVATED SYSTOLIC BP > 160; Start 08/14/18 at 19:00 Midazolam HCl 50 ml @ 1 mls/hr TITRATE IV Last administered on 08/15/18at 11:49; Admin Dose 1 MLS/HR; Start 08/15/18 at 11:00 WIN LUCIANO NP Aug 15, 2018 14:09
--- NOTE | 2018-08-15 14:16 | CONS ---
Assessment/Plan Assessment/Plan Assessment/Plan (Daily) This is a 38-year-old female brought to the emergency room [facility] status post cardiac arrest. Looking over her chart when she first presented information that was given to paramedics that patient was having increasing chest pain shortness of breath and passed out at home with paramedics arrived she is was in V. fib cardiac arrest. She was found to be in STEMI she had an arrhythmia urgent cath with successful PTCA and stenting of the proximal and mid LAD PTCA of the large first diagonal and thrombectomy of the LAD. Patient was admitted to [facility] 08/05/2018 today's date is 08/15/2018. Comorbid medical problems were not known on presentation of the patient is morbidly obese other than that incomplete database. In reviewing medical records patient has not improved from a neurological standpoint she has not awakened she has been seen by neurology consultation. EEG without epileptiform activity CT of the head was unremarkable, recommendations wean sedating continue medical management MRI of the brain since patient is medically stable. Other acute medical problems patient is septic shock with bacterial pneumonia ID has been consulted, bilateral pneumonia pulmonary medicine consulted. Coronary artery disease as noted above acute hypoxic respiratory failure remains intubated, acute kidney injury, transaminitis . According to the nursing notes patient is slightly more arousable when sedation is decreased. Patient is a full code. Patient is also currently being dialyzed, multifactorial etiology. Major issue at this time is ongoing encephalopathy in the setting of patient being status post V. fib cardiac arrest, possible anoxic brain injury. Family consultation has been scheduled for tomorrow with patient's mother overall prognosis, grim Consultation Date/Type/Reason Admit Date/Time Aug 04, 2018 at 23:10 Date/Time of Note DATE: 08/15/18 TIME: 14:13 Past Medical History Medical History: coronary artery disease, diabetes, hypertension Medications Current Medications Norepinephrine 250 ml @ 1.875 mls/ hr TITRATE IV Last administered on 08/10/18at 00:41; Admin Dose 5.625 MLS/HR; Start 08/04/18 at 23:15 Ticagrelor (Brilinta) 90 mg BID PO Last administered on 08/15/18at 08:48; Admin Dose 90 MG; Start 08/05/18 at 09:00 Morphine Sulfate (morphine) 1 mg Q1H PRN IV PAIN Last administered on 08/05/18 00:55; Admin Dose 1 MG; Start 08/04/18 at 23:30 Docusate Sodium (Colace) 100 mg BID PO Last administered on 08/14/18 20:16; Admin Dose 100 MG; Start 08/05/18 at 09:00 Atorvastatin Calcium (Lipitor) 80 mg DAILY@21 PO Last administered on 08/14/18 20:16; Admin Dose 80 MG; Start 08/05/18 at 21:00 Nitroglycerin/ Dextrose 250 ml @ 1.5 mls/hr TITRATE IV Last administered on 08/05/18 14:22; Admin Dose 72 MLS/HR; Start 08/05/18 at 01:00 Miscellaneous Information 1 ea NOTE XX ; Start 08/05/18 at 09:00 Acetaminophen (Tylenol Supp) 650 mg Q4H PRN [place] TEMP > 37C Last administered on 08/09/18 04:37; Admin Dose 650 MG; Start 08/05/18 at 11:00 Acetaminophen (Tylenol Liquid) 650 mg Q4H PRN PO TEMP > 37C Last administered on 08/11/18 11:55; Admin Dose 650 MG; Start 08/05/18 at 11:00 Meperidine HCl (Demerol) 25 mg Q4H PRN IV POST OPERATIVE SHIVERING Last administered on 08/05/18 16:31; Admin Dose 25 MG; Start 08/05/18 at 11:00 Eye Lubricant (Akwa Oint) 1 applic Q6 BOTH EYES Last administered on 08/15/18 12:42; Admin Dose 1 APPLIC; Start 08/05/18 at 12:00 Eye Lubricant (Artificial Tears Oph) 2 drop Q6 BOTH EYES Last administered on 08/15/18 12:42; Admin Dose 2 DROP; Start 08/05/18 at 12:00 Insulin Human Regular 100 unit/ Sodium Chloride 100 ml @ 0 mls/hr PER PROTOCOL IV ; Start 08/05/18 at 12:00 Miscellaneous Information (* Miscellaneous Pharmacy Order) Treatment of Hy poglycemia: 1.BG 51... Per protocol XX ; Start 08/05/18 at 12:00 Dextrose (D50w Syringe) 25 ml Q15M PRN IV .DECREASED GLUCOSE; Start 08/05/18 at 12:00 Dextrose (D50w Syringe) 50 ml Q15M PRN IV .DECREASED GLUCOSE; Start 08/05/18 at 12:00 Fentanyl 100 ml @ 2.5 mls/hr TITRATE IV Last administered on 08/15/18 01:16; Admin Dose 7.5 MLS/HR; Start 08/05/18 at 12:00 Meperidine HCl (Demerol) 12.5 mg Q2H PRN IV POST OPERATIVE SHIVERING; Start 08/05/18 at 17:00 Aspirin (Aspirin) 81 mg DAILY NGT Last administered on 08/15/18 08:44; Admin Dose 81 MG; Start 08/06/18 at 09:00 Diagnostic Test (Pha) (Accu-Chek) 1 ea Q12 XX Last administered on 08/15/18 09:04; Admin Dose 1 EA; Start 08/06/18 at 21:00 Carvedilol (Coreg) 6.25 mg QID PO Last administered on 08/15/18 12:43; Admin Dose 6.25 MG; Start 08/08/18 at 09:00 Multivitamins (Multivitamin) 30 ml DAILY NGT Last administered on 08/15/18 08:44; Admin Dose 30 ML; Start 08/09/18 at 09:00 Zinc Sulfate (Zinc Sulfate) 220 mg DAILY NGT Last administered on 08/15/18 08:44; Admin Dose 220 MG; Start 08/09/18 at 09:00 Folic Acid (Folic Acid) 1 mg DAILY NGT Last administered on 08/15/18 08:44; Admin Dose 1 MG; Start 08/09/18 at 09:00 Ascorbic Acid (Vitamin C) 500 mg DAILY NGT Last administered on 08/15/18 08:44; Admin Dose 500 MG; Start 08/09/18 at 09:00 Albuterol (Ventolin Hfa) 4 puff Q6HWA RESP THERAPY INH Last administered on 08/14/18 19:37; Admin Dose 4 PUFF; Start 08/09/18 at 14:00 Ipratropium [place] (Atrovent Hfa) 4 puff Q6H RESP THERAPY INH Last administered on 08/15/18 01:28; Admin Dose 4 PUFF; Start 08/09/18 at 14:00 Piperacillin Sod/ Tazobactam Sod 50 ml @ 100 mls/hr Q8 IVPB Last administered on 08/15/18at 05:27; Admin Dose 100 MLS/HR; Start 08/10/18 at 14:00 IV Flush (NS 10 ml) 10 ml PRN PRN IV IV PROTOCOL; Start 08/11/18 at 16:30 Lansoprazole (Prevacid) 30 mg 0600,1800 PEG Last administered on 08/15/18at 05 :27; Admin Dose 30 MG; Start 08/11/18 at 18:28 Heparin Sodium (Porcine) (Heparin (1000 Units/ml)) 3,000 unit PRN PRN CATHETER Dialysis Last administered on 08/14/18at 14:44; Admin Dose 3,000 UNIT; Start 08/12/18 at 14:30 Ciprofloxacin HCl (Ciprofloxacin HCl Otic) 5 drop BID LEFT EAR Last administer ed on 08/15/18at 11:58; Admin Dose 5 DROP; Start 08/14/18 at 10:00; Stop 08/20/18 at 21:01 Labetalol HCl (Labetalol) 10 mg Q4H PRN IV ELEVATED SYSTOLIC BP > 160; Start 08/14/18 at 19:00 Midazolam HCl 50 ml @ 1 mls/hr TITRATE IV Last administered on 08/15/18at 11:49; Admin Dose 1 MLS/HR; Start 08/15/18 at 11:00 Allergies: Coded Allergies: Unknown: Unable to obtain (Unverified , 08/04/18) Past Surgical History Past Surgical Hx: no surgical history, other Social History Alcohol Use: none Smoking Status: Never smoker Drug Use: none Exam/Review of Systems Exam Vitals Vital Signs Date Temp Pulse Resp B/P (MAP) Pulse Ox O2 O2 Flow FiO2 Time Delivery Rate 08/15/18 98 12:00 08/15/18 32 142/88 95 11:30 (106) 08/15/18 Mechanical 11:00 Ventilator 08/15/18 40 08:00 08/15/18 98.6 08:00 Intake and Output 08/14/18 08/14/18 08/15/18 1515:00 23:00 07:00 IntakeIntake Total 499.300 ml 436.80 ml 614.74 ml OutputOutput Total 3200 ml 20 ml BalanceBalance -2700.700 ml 436.80 ml 594.74 ml Constitutional: obese, other (Intubated) Eyes: nl conjunctiva, EOMI, nl lids, nl sclera, PERRL; No icteric, No fundi, disc, No other Neck: supple, non-tender Respiratory: congested cough ( any), crackles/rales ( verbal stimulation), diminished breath sounds Cardiovascular: regular rate and rhythm, nl pulses Extremities: edema Neurological: other (Bilateral disconjugate gaze pupils 3 mm bilaterally positive doll's eyes negative gag no spontaneous or purposeful movements) Results Result Diagram: 08/15/18 1014 08/15/18 0441 Results 24hrs Laboratory Tests Test 08/14/18 20:35 08/15/18 04:41 08/15/18 09:04 08/15/18 10:14 Bedside Glucose 114 119 White Blood Count 16.3 H Red Blood Count 3.04 L Hemoglobin 8.6 L Hematocrit 26.7 L Mean Corpuscular 87.8 Volume Mean Corpuscular 28.3 L Hemoglobin Mean Corpuscular 32.2 Hemoglobin Concent Red Cell 17.2 H Distribution Width Platelet Count 99 #L 107 L Mean Platelet Volume 13.6 H Immature 5.000 H Granulocytes % Neutrophils % Segmented 81 H Neutrophils % (Manual) Band Neutrophils % 11 H (Manual) Lymphocytes % Lymphocytes % 3 L (Manual) Monocytes % Monocytes % (Manual) 3 Eosinophils % Basophils % Myelocytes % 2 H (Manual) Nucleated Red Blood 2 H Cells % Immature 0.820 H Granulocytes # Neutrophils # Neutrophils # 13.5 H (Manual) Band Neutrophils # 1.7 H Lymphocytes (Manual) 0.4 L Lymphocytes # Monocytes # Monocytes # (Manual) 0.4 Eosinophils # Basophils # Myelocytes # 0.3 H Nucleated Red Blood Cells # Platelet Estimate DECREASED Giant Platelets 2 H Polychromasia 1+ Poikilocytosis 3+ Anisocytosis 2+ Microcytosis 1+ Macrocytosis 2+ Sodium Level 139 Potassium Level 4.5 Chloride Level 99 Carbon Dioxide Level 29 Anion Gap 11 Blood Urea Nitrogen 43 H Creatinine 4.04 H Est Glomerular 12 L Filtrat Rate mL/min Glucose Level 114 Calcium Level 8.7 Phosphorus Level 4.4 Magnesium Level 2.5 Prothrombin Time 13.3 Prothrombin Time 1.0 Ratio INR International 1.00 Normalized Ratio Activated 40.5 H Partial Thromboplast Time Thrombin Time 18.1 Medications Medication Current Medications Norepinephrine 250 ml @ 1.875 mls/ hr TITRATE IV Last administered on 08/10/18 00:41; Admin Dose 5.625 MLS/HR; Start 08/04/18 at 23:15 Ticagrelor (Brilinta) 90 mg BID PO Last administered on 08/15/18 08:48; Admin Dose 90 MG; Start 08/05/18 at 09:00 Morphine Sulfate (morphine) 1 mg Q1H PRN IV PAIN Last administered on 08/05/18 00:55; Admin Dose 1 MG; Start 08/04/18 at 23:30 Docusate Sodium (Colace) 100 mg BID PO Last administered on 08/14/18 20:16; Admin Dose 100 MG; Start 08/05/18 at 09:00 Atorvastatin Calcium (Lipitor) 80 mg DAILY@21 PO Last administered on 08/14/18 20:16; Admin Dose 80 MG; Start 08/05/18 at 21:00 Nitroglycerin/ Dextrose 250 ml @ 1.5 mls/hr TITRATE IV Last administered on 08/05/18 14:22; Admin Dose 72 MLS/HR; Start 08/05/18 at 01:00 Miscellaneous Information 1 ea NOTE XX ; Start 08/05/18 at 09:00 Acetaminophen (Tylenol Supp) 650 mg Q4H PRN [place] TEMP > 37C Last administered on 08/09/18 04:37; Admin Dose 650 MG; Start 08/05/18 at 11:00 Acetaminophen (Tylenol Liquid) 650 mg Q4H PRN PO TEMP > 37C Last administered on 08/11/18 11:55; Admin Dose 650 MG; Start 08/05/18 at 11:00 Meperidine HCl (Demerol) 25 mg Q4H PRN IV POST OPERATIVE SHIVERING Last administered on 08/05/18 16:31; Admin Dose 25 MG; Start 08/05/18 at 11:00 Eye Lubricant (Akwa Oint) 1 applic Q6 BOTH EYES Last administered on 08/15/18 12:42; Admin Dose 1 APPLIC; Start 08/05/18 at 12:00 Eye Lubricant (Artificial Tears Oph) 2 drop Q6 BOTH EYES Last administered on 08/15/18 12:42; Admin Dose 2 DROP; Start 08/05/18 at 12:00 Insulin Human Regular 100 unit/ Sodium Chloride 100 ml @ 0 mls/hr PER PROTOCOL IV ; Start 08/05/18 at 12:00 Miscellaneous Information (* Miscellaneous Pharmacy Order) Treatment of Hypo glycemia: 1.BG 51... Per protocol XX ; Start 08/05/18 at 12:00 Dextrose (D50w Syringe) 25 ml Q15M PRN IV .DECREASED GLUCOSE; Start 08/05/18 at 12:00 Dextrose (D50w Syringe) 50 ml Q15M PRN IV .DECREASED GLUCOSE; Start 08/05/18 at 12:00 Fentanyl 100 ml @ 2.5 mls/hr TITRATE IV Last administered on 08/15/18at 01:16; Admin Dose 7.5 MLS/HR; Start 08/05/18 at 12:00 Meperidine HCl (Demerol) 12.5 mg Q2H PRN IV POST OPERATIVE SHIVERING; Start 08/05/18 at 17:00 Aspirin (Aspirin) 81 mg DAILY NGT Last administered on 08/15/18 08:44; Admin Dose 81 MG; Start 08/06/18 at 09:00 Diagnostic Test (Pha) (Accu-Chek) 1 ea Q12 XX Last administered on 08/15/18 09:04; Admin Dose 1 EA; Start 08/06/18 at 21:00 Carvedilol (Coreg) 6.25 mg QID PO Last administered on 08/15/18 12:43; Admin Dose 6.25 MG; Start 08/08/18 at 09:00 Multivitamins (Multivitamin) 30 ml DAILY NGT Last administered on 08/15/18 08:44; Admin Dose 30 ML; Start 08/09/18 at 09:00 Zinc Sulfate (Zinc Sulfate) 220 mg DAILY NGT Last administered on 08/15/18 08:44; Admin Dose 220 MG; Start 08/09/18 at 09:00 Folic Acid (Folic Acid) 1 mg DAILY NGT Last administered on 08/15/18 08:44; Admin Dose 1 MG; Start 08/09/18 at 09:00 Ascorbic Acid (Vitamin C) 500 mg DAILY NGT Last administered on 08/15/18 08:44; Admin Dose 500 MG; Start 08/09/18 at 09:00 Albuterol (Ventolin Hfa) 4 puff Q6HWA RESP THERAPY INH Last administered on 08/14/18 19:37; Admin Dose 4 PUFF; Start 08/09/18 at 14:00 Ipratropium [place] (Atrovent Hfa) 4 puff Q6H RESP THERAPY INH Last administered on 08/15/18 01:28; Admin Dose 4 PUFF; Start 08/09/18 at 14:00 Piperacillin Sod/ Tazobactam Sod 50 ml @ 100 mls/hr Q8 IVPB Last administered on 08/15/18 05:27; Admin Dose 100 MLS/HR; Start 08/10/18 at 14:00 IV Flush (NS 10 ml) 10 ml PRN PRN IV IV PROTOCOL; Start 08/11/18 at 16:30 Lansoprazole (Prevacid) 30 mg 0600,1800 PEG Last administered on 08/15/18 05:2 7; Admin Dose 30 MG; Start 08/11/18 at 18:28 Heparin Sodium (Porcine) (Heparin (1000 Units/ml)) 3,000 unit PRN PRN CATHETER Dialysis Last administered on 08/14/18 14:44; Admin Dose 3,000 UNIT; Start 08/12/18 at 14:30 Ciprofloxacin HCl (Ciprofloxacin HCl Otic) 5 drop BID LEFT EAR Last administered on 08/15/18 11:58; Admin Dose 5 DROP; Start 08/14/18 at 10:00; Stop 08/20/18 at 21:01 Labetalol HCl (Labetalol) 10 mg Q4H PRN IV ELEVATED SYSTOLIC BP > 160; Start 08/14/18 at 19:00 Midazolam HCl 50 ml @ 1 mls/hr TITRATE IV Last administered on 08/15/18 11:49; Admin Dose 1 MLS/HR; Start 08/15/18 at 11:00 TIEN HENRY Aug 15, 2018 14:16
[2018-08-15] MEDS: ATORVASTATIN 80 MG TAB PO SCH (20:08)
[2018-08-15] MEDS: LABETALOL HCL 20MG INJ IV PRN (20:09)
--- NOTE | 2018-08-15 20:59 | CONS ---
Assessment/Plan Assessment/Plan Assessment/Plan (Daily) 38-year-old female on anticoagulation with recent history of epistaxis and oropharyngeal bleeding. She is not currently bleeding. Would consider bilateral nasal packing if bleeding restarts. Likely source of oropharyngeal bleeding is epistaxis flowing posteriorly down throat. Consultation Date/Type/Reason Admit Date/Time Aug 04, 2018 at 23:10 Date of Consultation: Aug 15, 2018 Type of Consult ENT Reason for Consultation Bleeding Date/Time of Note DATE: 08/15/18 TIME: 20:56 Hx of Present Illness The patient is a 38-year-old female who was admitted for STEMI. She is status post coronary stent placement and is currently on anticoagulation. ENT has been consulted for profuse epistaxis and oropharyngeal bleeding. Past Medical History Medical History: coronary artery disease, diabetes, hypertension Medications Current Medications Norepinephrine 250 ml @ 1.875 mls/ hr TITRATE IV Last administered on 08/10/18at 00:41; Admin Dose 5.625 MLS/HR; Start 08/04/18 at 23:15 Ticagrelor (Brilinta) 90 mg BID PO Last administered on 08/15/18at 20:13; Admin Dose 90 MG; Start 08/05/18 at 09:00 Morphine Sulfate (morphine) 1 mg Q1H PRN IV PAIN Last administered on 08/05/18at 00:55; Admin Dose 1 MG; Start 08/04/18 at 23:30 Docusate Sodium (Colace) 100 mg BID PO Last administered on 08/15/18at 20:08; Admin Dose 100 MG; Start 08/05/18 at 09:00 Atorvastatin Calcium (Lipitor) 80 mg DAILY@21 PO Last administered on 08/15/18at 20:08; Admin Dose 80 MG; Start 08/05/18 at 21:00 Nitroglycerin/ Dextrose 250 ml @ 1.5 mls/hr TITRATE IV Last administered on 08/05/18at 14:22; Admin Dose 72 MLS/HR; Start 08/05/18 at 01:00 Miscellaneous Information 1 ea NOTE XX ; Start 08/05/18 at 09:00 Acetaminophen (Tylenol Supp) 650 mg Q4H PRN [place] TEMP > 37C Last administered on 08/09/18at 04:37; Admin Dose 650 MG; Start 08/05/18 at 11:00 Acetaminophen (Tylenol Liquid) 650 mg Q4H PRN PO TEMP > 37C Last administered on 08/11/18 11:55; Admin Dose 650 MG; Start 08/05/18 at 11:00 Meperidine HCl (Demerol) 25 mg Q4H PRN IV POST OPERATIVE SHIVERING Last administered on 08/05/18 16:31; Admin Dose 25 MG; Start 08/05/18 at 11:00 Eye Lubricant (Akwa Oint) 1 applic Q6 BOTH EYES Last administered on 08/15/18 18:03; Admin Dose 1 APPLIC; Start 08/05/18 at 12:00 Eye Lubricant (Artificial Tears Oph) 2 drop Q6 BOTH EYES Last administered on 08/15/18 18:03; Admin Dose 2 DROP; Start 08/05/18 at 12:00 Insulin Human Regular 100 unit/ Sodium Chloride 100 ml @ 0 mls/hr PER PROTOCOL IV ; Start 08/05/18 at 12:00 Miscellaneous Information (* Miscellaneous Pharmacy Order) Treatment of Hypoglycemia: 1.BG 51... Per protocol XX ; Start 08/05/18 at 12:00 Dextrose (D50w Syringe) 25 ml Q15M PRN IV .DECREASED GLUCOSE; Start 08/05/18 at 12:00 Dextrose (D50w Syringe) 50 ml Q15M PRN IV .DECREASED GLUCOSE; Start 08/05/18 at 12:00 Fentanyl 100 ml @ 2.5 mls/hr TITRATE IV Last administered on 08/15/18 13:40; Admin Dose 7.5 MLS/HR; Start 08/05/18 at 12:00 Meperidine HCl (Demerol) 12.5 mg Q2H PRN IV POST OPERATIVE SHIVERING; Start 08/05/18 at 17:00 Aspirin (Aspirin) 81 mg DAILY NGT Last administered on 08/15/18 08:44; Admin Dose 81 MG; Start 08/06/18 at 09:00 Diagnostic Test (Pha) (Accu-Chek) 1 ea Q12 XX Last administered on 08/15/18 09:04; Admin Dose 1 EA; Start 08/06/18 at 21:00 Carvedilol (Coreg) 6.25 mg QID PO Last administered on 08/15/18 20:08; Admin Dose 6.25 MG; Start 08/08/18 at 09:00 Multivitamins (Multivitamin) 30 ml DAILY NGT Last administered on 08/15/18 08:44; Admin Dose 30 ML; Start 08/09/18 at 09:00 Zinc Sulfate (Zinc Sulfate) 220 mg DAILY NGT Last administered on 08/15/18 08:44; Admin Dose 220 MG; Start 08/09/18 at 09:00 Folic Acid (Folic Acid) 1 mg DAILY NGT Last administered on 08/15/18 08:44; Admin Dose 1 MG; Start 08/09/18 at 09:00 Ascorbic Acid (Vitamin C) 500 mg DAILY NGT Last administered on 08/15/18 08:44; Admin Dose 500 MG; Start 08/09/18 at 09:00 Albuterol (Ventolin Hfa) 4 puff Q6HWA RESP THERAPY INH Last administered on 08/15/18 19:40; Admin Dose 4 PUFF; Start 08/09/18 at 14:00 Ipratropium [place] (Atrovent Hfa) 4 puff Q6H RESP THERAPY INH Last administered on 08/15/18 19:40; Admin Dose 4 PUFF; Start 08/09/18 at 14:00 Piperacillin Sod/ Tazobactam Sod 50 ml @ 100 mls/hr Q8 IVPB Last administered on 08/15/18 20:16; Admin Dose 100 MLS/HR; Start 08/10/18 at 14:00 IV Flush (NS 10 ml) 10 ml PRN PRN IV IV PROTOCOL; Start 08/11/18 at 16:30 Lansoprazole (Prevacid) 30 mg 0600,1800 PEG Last administered on 08/15/18 18:03; Admin Dose 30 MG; Start 08/11/18 at 18:28 Heparin Sodium (Porcine) (Heparin (1000 Units/ml)) 3,000 unit PRN PRN CATHETER Dialysis Last administered on 08/14/18 14:44; Admin Dose 3,000 UNIT; Start 08/12/18 at 14:30 Ciprofloxacin HCl (Ciprofloxacin HCl Otic) 5 drop BID LEFT EAR Last administered on 08/15/18 20:08; Admin Dose 5 DROP; Start 08/14/18 at 10:00; Stop 08/20/18 at 21:01 Labetalol HCl (Labetalol) 10 mg Q4H PRN IV ELEVATED SYSTOLIC BP > 160 Last administered on 08/15/18at 20:09; Admin Dose 10 MG; Start 08/14/18 at 19:00 Midazolam HCl 50 ml @ 1 mls/hr TITRATE IV Last administered on 08/15/18at 18:08; Admin Dose 4 MLS/HR; Start 08/15/18 at 11:00 Allergies: Coded Allergies: Unknown: Unable to obtain (Unverified , 08/04/18) Past Surgical History Past Surgical Hx: no surgical history, other Social History Alcohol Use: none Smoking Status: Never smoker Drug Use: none Exam/Review of Systems Exam Vitals Vital Signs Date Temp Pulse Resp B/P (MAP) Pulse Ox O2 O2 Flow FiO2 Time Delivery Rate 08/15/18 104 32 161/101 90 Mechanical 19:00 (121) Ventilator 08/15/18 40 17:40 08/15/18 98.9 16:00 Intake and Output 08/14/18 08/14/18 08/15/18 1515:00 23:00 07:00 IntakeIntake Total 499.300 ml 436.80 ml 614.74 ml OutputOutput Total 3200 ml 20 ml BalanceBalance -2700.700 ml 436.80 ml 594.74 ml ENMT: other (Oropharynx evaluated and no active bleeding. Oropharynx suctioned and clear saliva found. Nasal cavity evaluated and only dried blood noted bilaterally. No active bleeding.) Results Result Diagram: 08/15/18 1432 08/15/18 0441 Results 24hrs Laboratory Tests Test 08/15/18 04:41 08/15/18 09:04 08/15/18 10:14 08/15/18 14:32 White Blood Count 16.3 H Red Blood Count 3.04 L Hemoglobin 8.6 L 8.5 L Hematocrit 26.7 L 27.1 L Mean Corpuscular 87.8 Volume Mean Corpuscular 28.3 L Hemoglobin Mean Corpuscular 32.2 Hemoglobin Concent Red Cell 17.2 H Distribution Width Platelet Count 99 #L 107 L Mean Platelet Volume 13.6 H Immature 5.000 H Granulocytes % Neutrophils % Segmented 81 H Neutrophils % (Manual) Band Neutrophils % 11 H (Manual) Lymphocytes % Lymphocytes % 3 L (Manual) Monocytes % Monocytes % (Manual) 3 Eosinophils % Basophils % Myelocytes % 2 H (Manual) Nucleated Red Blood 2 H Cells % Immature 0.820 H Granulocytes # Neutrophils # Neutrophils # 13.5 H (Manual) Band Neutrophils # 1.7 H Lymphocytes (Manual) 0.4 L Lymphocytes # Monocytes # Monocytes # (Manual) 0.4 Eosinophils # Basophils # Myelocytes # 0.3 H Nucleated Red Blood Cells # Platelet Estimate DECREASED Giant Platelets 2 H Polychromasia 1+ Poikilocytosis 3+ Anisocytosis 2+ Microcytosis 1+ Macrocytosis 2+ Sodium Level 139 Potassium Level 4.5 Chloride Level 99 Carbon Dioxide Level 29 Anion Gap 11 Blood Urea Nitrogen 43 H Creatinine 4.04 H Est Glomerular 12 L Filtrat Rate mL/min Glucose Level 114 Calcium Level 8.7 Phosphorus Level 4.4 Magnesium Level 2.5 Bedside Glucose 119 Prothrombin Time 13.3 Prothrombin Time 1.0 Ratio INR International 1.00 Normalized Ratio Activated 40.5 H Partial Thromboplast Time Thrombin Time 18.1 Test 08/15/18 20:32 Bedside Glucose 116 Medications Medication Current Medications Norepinephrine 250 ml @ 1.875 mls/ hr TITRATE IV Last administered on 08/10/18 00:41; Admin Dose 5.625 MLS/HR; Start 08/04/18 at 23:15 Ticagrelor (Brilinta) 90 mg BID PO Last administered on 08/15/18at 20:13; Admin Dose 90 MG; Start 08/05/18 at 09:00 Morphine Sulfate (morphine) 1 mg Q1H PRN IV PAIN Last administered on 08/05/18at 00:55; Admin Dose 1 MG; Start 08/04/18 at 23:30 Docusate Sodium (Colace) 100 mg BID PO Last administered on 08/15/18 20:08; Admin Dose 100 MG; Start 08/05/18 at 09:00 Atorvastatin Calcium (Lipitor) 80 mg DAILY@21 PO Last administered on 08/15/18 20:08; Admin Dose 80 MG; Start 08/05/18 at 21:00 Nitroglycerin/ Dextrose 250 ml @ 1.5 mls/hr TITRATE IV Last administered on 08/05/18at 14:22; Admin Dose 72 MLS/HR; Start 08/05/18 at 01:00 Miscellaneous Information 1 ea NOTE XX ; Start 08/05/18 at 09:00 Acetaminophen (Tylenol Supp) 650 mg Q4H PRN [place] TEMP > 37C Last administered on 08/09/18 04:37; Admin Dose 650 MG; Start 08/05/18 at 11:00 Acetaminophen (Tylenol Liquid) 650 mg Q4H PRN PO TEMP > 37C Last administered on 08/11/18 11:55; Admin Dose 650 MG; Start 08/05/18 at 11:00 Meperidine HCl (Demerol) 25 mg Q4H PRN IV POST OPERATIVE SHIVERING Last administered on 08/05/18 16:31; Admin Dose 25 MG; Start 08/05/18 at 11:00 Eye Lubricant (Akwa Oint) 1 applic Q6 BOTH EYES Last administered on 08/15/18 18:03; Admin Dose 1 APPLIC; Start 08/05/18 at 12:00 Eye Lubricant (Artificial Tears Oph) 2 drop Q6 BOTH EYES Last administered on 08/15/18 18:03; Admin Dose 2 DROP; Start 08/05/18 at 12:00 Insulin Human Regular 100 unit/ Sodium Chloride 100 ml @ 0 mls/hr PER PROTOCOL IV ; Start 08/05/18 at 12:00 Miscellaneous Information (* Miscellaneous Pharmacy Order) Treatment of Hypoglycemia: 1.BG 51... Per protocol XX ; Start 08/05/18 at 12:00 Dextrose (D50w Syringe) 25 ml Q15M PRN IV .DECREASED GLUCOSE; Start 08/05/18 at 12:00 Dextrose (D50w Syringe) 50 ml Q15M PRN IV .DECREASED GLUCOSE; Start 08/05/18 at 12:00 Fentanyl 100 ml @ 2.5 mls/hr TITRATE IV Last administered on 08/15/18 13:40; Admin Dose 7.5 MLS/HR; Start 08/05/18 at 12:00 Meperidine HCl (Demerol) 12.5 mg Q2H PRN IV POST OPERATIVE SHIVERING; Start 08/05/18 at 17:00 Aspirin (Aspirin) 81 mg DAILY NGT Last administered on 08/15/18 08:44; Admin Dose 81 MG; Start 08/06/18 at 09:00 Diagnostic Test (Pha) (Accu-Chek) 1 ea Q12 XX Last administered on 08/15/18 09:04; Admin Dose 1 EA; Start 08/06/18 at 21:00 Carvedilol (Coreg) 6.25 mg QID PO Last administered on 08/15/18 20:08; Admin Dose 6.25 MG; Start 08/08/18 at 09:00 Multivitamins (Multivitamin) 30 ml DAILY NGT Last administered on 08/15/18 08:44; Admin Dose 30 ML; Start 08/09/18 at 09:00 Zinc Sulfate (Zinc Sulfate) 220 mg DAILY NGT Last administered on 08/15/18 08:44; Admin Dose 220 MG; Start 08/09/18 at 09:00 Folic Acid (Folic Acid) 1 mg DAILY NGT Last administered on 08/15/18 08:44; Admin Dose 1 MG; Start 08/09/18 at 09:00 Ascorbic Acid (Vitamin C) 500 mg DAILY NGT Last administered on 08/15/18 08:44; Admin Dose 500 MG; Start 08/09/18 at 09:00 Albuterol (Ventolin Hfa) 4 puff Q6HWA RESP THERAPY INH Last administered on 08/15/18 19:40; Admin Dose 4 PUFF; Start 08/09/18 at 14:00 Ipratropium [place] (Atrovent Hfa) 4 puff Q6H RESP THERAPY INH Last administered on 08/15/18 19:40; Admin Dose 4 PUFF; Start 08/09/18 at 14:00 Piperacillin Sod/ Tazobactam Sod 50 ml @ 100 mls/hr Q8 IVPB Last administered on 08/15/18 20:16; Admin Dose 100 MLS/HR; Start 08/10/18 at 14:00 IV Flush (NS 10 ml) 10 ml PRN PRN IV IV PROTOCOL; Start 08/11/18 at 16:30 Lansoprazole (Prevacid) 30 mg 0600,1800 PEG Last administered on 08/15/18 18:03; Admin Dose 30 MG; Start 08/11/18 at 18:28 Heparin Sodium (Porcine) (Heparin (1000 Units/ml)) 3,000 unit PRN PRN CATHETER Dialysis Last administered on 08/14/18 14:44; Admin Dose 3,000 UNIT; Start 08/12/18 at 14:30 Ciprofloxacin HCl (Ciprofloxacin HCl Otic) 5 drop BID LEFT EAR Last administered on 08/15/18at 20:08; Admin Dose 5 DROP; Start 08/14/18 at 10:00; Stop 08/20/18 at 21:01 Labetalol HCl (Labetalol) 10 mg Q4H PRN IV ELEVATED SYSTOLIC BP > 160 Last a dministered on 08/15/18at 20:09; Admin Dose 10 MG; Start 08/14/18 at 19:00 Midazolam HCl 50 ml @ 1 mls/hr TITRATE IV Last administered on 08/15/18at 18:08; Admin Dose 4 MLS/HR; Start 08/15/18 at 11:00 WHIT RAYGOZA MD Aug 15, 2018 20:59
[2018-08-16] VITALS (73 sets, daily range): BP systolic 106–187; BP diastolic 69–138; PULSE 94–112; RESP 6–43
[2018-08-16] MEDS: IPRATROPIUM (HFA) 12.9 GM INHALER INH SCH ×4 (01:27→19:17)
[2018-08-16] MEDS: MIDAZOLAM (DRIP) 50 mg/50 mL 50 ML IV SCH (03:51)
[2018-08-16] MEDS: FENTAnyl (DRIP) 1000 mcg/100mL 100 ML IV SCH (03:54)
[2018-08-16] MEDS: LANSOPRAZOLE 30 MG CAP PEG SCH ×2 (05:14→18:15)
[2018-08-16] MEDS: LABETALOL HCL 20MG INJ IV PRN (05:14)
[2018-08-16] MEDS: PIPER-TAZO 2.25 GM/NS 50 ML IVPB SCH ×3 (05:14→20:47)
[2018-08-16] MEDS: OCULAR LUBRICANT 3.5 GM OPH OINT BOTH EYES SCH ×4 (05:14→23:04)
[2018-08-16] MEDS: ARTIFICIAL TEARS 15 ML OPH BOTH EYES SCH ×4 (05:14→23:04)
[2018-08-16] MEDS ORDERED: hydrALAzine 20 MG INJ IV ONE (07:00)
--- NOTE | 2018-08-16 07:43 | CONS ---
Consult Date/Type/Reason Admit Date/Time Aug 04, 2018 at 23:10 Initial Consult Date 08/05/18 Type of Consultation: cv Requesting Provider: HARPAL AGGARWAL MD Date/Time of Note DATE: 08/16/18 TIME: 07:42 Subjective Interventional cardiology follow-up progress note/critical care Subjective: Events noted discussed with the staff and physicians. Patient remains intubated on the vent and remains nonresponsive in ICU No V tachycardia or V fibrillation. [place] with a short run of SVT overnight BP is stable off of pressors. no coffee ground emesis and less significant oral and nasopharyngeal bleeding noted today With diarrhea today. She has been hypertensive events noted s/p PCI 100% occluded LAD 08/04 S/P PCI LCX/ OM Objective: General: Obese female started with intubation on the vent HEENT: NC/AT. pupils are equal. round. NECK: . no stridor. CV: RRR. systolic murmur; no gallop or rubs. PULM: no wheezing + diffuse rhonchi. GI: Obese SOFT, NT, ND, no rebound or guarding Extremity: +B/L LE edema. no clubbing. neuro: Sedated Psych: Calm now rectal: deferred EKG August 06, 2018 was personally within normal sinus rhythm. T wave inversions anterior and inferior leads ECG 08/07: NSR ST T abn c/w ant/lat ischemia CXR 08/14: Nonspecific patchy bilateral pulmonary opacity, mildly improved on the right. No pneumothorax. Endotracheal tube, nasogastric tube, and right-sided PICC line remain in place. Stable mild cardiomegaly. The osseous structures are remarkable for degenerative enthesopathy of the spine. Chest x-ray done August 06 shows:No evidence for active cardiopulmonary disease. ECHO personally reviewed Normal left ventricular cavity size. Normal left ventricular wall thickness. Ejection fraction is visually estimated at 55-65 %. Normal appearance of the mitral valve. Mitral valve is not well visualized. No mitral valve regurgitation is seen. Aortic valve not well visualized. No aortic regurgitation. Normal appearance of the tricuspid valve. Unable to obtain RVSP due to minimal presence of tricuspid regurgitation. No evidence of tricuspid regurgitation. Normal pericardium with no significant pericardial effusion. suboptimal study. Objective Vitals Vital Signs Date Temp Pulse Resp B/P (MAP) Pulse Ox O2 O2 Flow FiO2 Time Delivery Rate 08/16/18 101 37 168/100 91 Mechanical 06:00 (122) Ventilator 08/16/18 40 05:20 08/16/18 99.6 01:00 Intake and Output 08/15/18 08/15/18 08/16/18 1414:59 22:59 06:59 IntakeIntake Total 492.484 ml 552.0 ml 522.5 ml OutputOutput Total 0 ml 1500 ml 0 ml BalanceBalance 492.484 ml -948.0 ml 522.5 ml Results/Medications Result Diagram: 08/16/18 0434 08/16/18 0434 Results 24 hrs Laboratory Tests Test 08/15/18 09:04 08/15/18 10:14 08/15/18 14:32 08/15/18 20:32 Bedside Glucose 119 116 Platelet Count 107 L Prothrombin Time 13.3 Prothrombin Time 1.0 Ratio INR International 1.00 Normalized Ratio Activated 40.5 H Partial Thrombopl ast Time Thrombin Time 18.1 Hemoglobin 8.5 L Hematocrit 27.1 L Test 08/15/18 21:42 08/16/18 04:34 08/16/18 07:00 Hemoglobin 9.2 L 9.0 L Hematocrit 29.3 L 28.9 L White Blood Count 12.5 #H Red Blood Count 3.31 L Mean Corpuscular 87.3 Volume Mean Corpuscular 27.2 L Hemoglobin Mean Corpuscular 31.1 L Hemoglobin Concen t Red Cell 17.0 H Distribution Width Platelet Count 130 #L Mean Platelet 13.8 H Volume Immature 4.200 H Granulocytes % Neutrophils % 74.9 Lymphocytes % 8.9 L Monocytes % 8.6 Eosinophils % 3.1 Basophils % 0.3 Nucleated Red 0.0 Blood Cells % Immature 0.530 H Granulocytes # Neutrophils # 9.4 H Lymphocytes # 1.1 Monocytes # 1.1 H Eosinophils # 0.4 Basophils # 0.0 Nucleated Red 0.0 Blood Cells # Sodium Level 140 Potassium Level 4.3 Chloride Level 99 Carbon Dioxide 30 Level Anion Gap 11 Blood Urea 43 H Nitrogen Creatinine 3.92 H Est Glomerular 13 L Filtrat Rate mL/min Glucose Level 119 Calcium Level 8.6 Phosphorus Level 3.1 Magnesium Level 2.3 Blood Gas Blood arterial Specimen Source Arterial Blood 08/16/2018 6:58:3 Date Drawn 8 AM Arterial Blood pH 7.357 (Temp corrected) Arterial Blood 52.6 H pCO2 (Temp correct) Arterial Blood 82.3 pO2 (Temp corrected) Arterial Blood 28.8 H HCO3 Arterial Blood 2.7 Base Excess Arterial Blood 95.6 Oxygen Saturation Dajuan Test ACCEPTAB Arterial Blood Right Radial Gas Puncture Site Arterial 0.5 Blood Carboxyhemo globin Arterial Blood 0.2 Methemoglobin Blood Gas A-a O2 142.4 H Differential Oxyhemoglobin 94.9 Percent Blood Gas 37.0 Temperature Blood Gas 32.0 Respiration Rate Blood Gas Actual 33 Respiration Rate Blood Gas VENT - AC Modality FiO2 40.0 Blood Gas Tidal 350.0 Volume Blood Gas Low 5.0 PEEP Setting Blood Gas TM Notified Whom Blood Gas 08/16/2018 7:38:3 Notified Time 1 AM Medications Current Medications Norepinephrine 250 ml @ 1.875 mls/ hr TITRATE IV Last administered on 08/10/18 00:41; Admin Dose 5.625 MLS/HR; Start 08/04/18 at 23:15 Ticagrelor (Brilinta) 90 mg BID PO Last administered on 08/15/18 20:13; Admin Dose 90 MG; Start 08/05/18 at 09:00 Morphine Sulfate (morphine) 1 mg Q1H PRN IV PAIN Last administered on 08/05/18 00:55; Admin Dose 1 MG; Start 08/04/18 at 23:30 Docusate Sodium (Colace) 100 mg BID PO Last administered on 08/15/18 20:08; Admin Dose 100 MG; Start 08/05/18 at 09:00 Atorvastatin Calcium (Lipitor) 80 mg DAILY@21 PO Last administered on 08/15/18at 20:08; Admin Dose 80 MG; Start 08/05/18 at 21:00 Nitroglycerin/ Dextrose 250 ml @ 1.5 mls/hr TITRATE IV Last administered on 08/05/18 14:22; Admin Dose 72 MLS/HR; Start 08/05/18 at 01:00 Miscellaneous Information 1 ea NOTE XX ; Start 08/05/18 at 09:00 Acetaminophen (Tylenol Supp) 650 mg Q4H PRN [place] TEMP > 37C Last administered on 08/09/18at 04:37; Admin Dose 650 MG; Start 08/05/18 at 11:00 Acetaminophen (Tylenol Liquid) 650 mg Q4H PRN PO TEMP > 37C Last administered on 08/11/18 11:55; Admin Dose 650 MG; Start 08/05/18 at 11:00 Meperidine HCl (Demerol) 25 mg Q4H PRN IV POST OPERATIVE SHIVERING Last administered on 08/05/18 16:31; Admin Dose 25 MG; Start 08/05/18 at 11:00 Eye Lubricant (Akwa Oint) 1 applic Q6 BOTH EYES Last administered on 08/16/18 05:14; Admin Dose 1 APPLIC; Start 08/05/18 at 12:00 Eye Lubricant (Artificial Tears Oph) 2 drop Q6 BOTH EYES Last administered on 08/16/18 05:14; Admin Dose 2 DROP; Start 08/05/18 at 12:00 Insulin Human Regular 100 unit/ Sodium Chloride 100 ml @ 0 mls/hr PER PROTOCOL IV ; Start 08/05/18 at 12:00 Miscellaneous Information (* Miscellaneous Pharmacy Order) Treatment of Hypoglycemia: 1.BG 51... Per protocol XX ; Start 08/05/18 at 12:00 Dextrose (D50w Syringe) 25 ml Q15M PRN IV .DECREASED GLUCOSE; Start 08/05/18 at 12:00 Dextrose (D50w Syringe) 50 ml Q15M PRN IV .DECREASED GLUCOSE; Start 08/05/18 at 12:00 Fentanyl 100 ml @ 2.5 mls/hr TITRATE IV Last administered on 08/16/18 03:54; Admin Dose 7.5 MLS/HR; Start 08/05/18 at 12:00 Meperidine HCl (Demerol) 12.5 mg Q2H PRN IV POST OPERATIVE SHIVERING; Start 08/05/18 at 17:00 Aspirin (Aspirin) 81 mg DAILY NGT Last administered on 08/15/18 08:44; Admin Dose 81 MG; Start 08/06/18 at 09:00 Diagnostic Test (Pha) (Accu-Chek) 1 ea Q12 XX Last administered on 08/15/18 09:04; Admin Dose 1 EA; Start 08/06/18 at 21:00 Carvedilol (Coreg) 6.25 mg QID PO Last administered on 08/16/18 07:29; Admin Dose 6.25 MG; Start 08/08/18 at 09:00 Multivitamins (Multivitamin) 30 ml DAILY NGT Last administered on 08/15/18 08:44; Admin Dose 30 ML; Start 08/09/18 at 09:00 Zinc Sulfate (Zinc Sulfate) 220 mg DAILY NGT Last administered on 08/15/18 08 :44; Admin Dose 220 MG; Start 08/09/18 at 09:00 Folic Acid (Folic Acid) 1 mg DAILY NGT Last administered on 08/15/18 08:44; Admin Dose 1 MG; Start 08/09/18 at 09:00 Ascorbic Acid (Vitamin C) 500 mg DAILY NGT Last administered on 08/15/18 08:44; Admin Dose 500 MG; Start 08/09/18 at 09:00 Albuterol (Ventolin Hfa) 4 puff Q6HWA RESP THERAPY INH Last administered on 08/15/18 19:40; Admin Dose 4 PUFF; Start 08/09/18 at 14:00 Ipratropium [place] (Atrovent Hfa) 4 puff Q6H RESP THERAPY INH Last administered on 08/16/18 01:27; Admin Dose 4 PUFF; Start 08/09/18 at 14:00 Piperacillin Sod/ Tazobactam Sod 50 ml @ 100 mls/hr Q8 IVPB Last administered on 08/16/18 05:14; Admin Dose 100 MLS/HR; Start 08/10/18 at 14:00 IV Flush (NS 10 ml) 10 ml PRN PRN IV IV PROTOCOL; Start 08/11/18 at 16:30 Lansoprazole (Prevacid) 30 mg 0600,1800 PEG Last administered on 08/16/18 05:14; Admin Dose 30 MG; Start 08/11/18 at 18:28 Heparin Sodium (Porcine) (Heparin (1000 Units/ml)) 3,000 unit PRN PRN CATHETER Dialysis Last administered on 08/14/18 14:44; Admin Dose 3,000 UNIT; Start 08/12/18 at 14:30 Ciprofloxacin HCl (Ciprofloxacin HCl Otic) 5 drop BID LEFT EAR Last administered on 08/15/18 20:08; Admin Dose 5 DROP; Start 08/14/18 at 10:00; Stop 08/20/18 at 21:01 Labetalol HCl (Labetalol) 10 mg Q4H PRN IV ELEVATED SYSTOLIC BP > 160 Last administered on 08/16/18at 05:14; Admin Dose 10 MG; Start 08/14/18 at 19:00 Midazolam HCl 50 ml @ 1 mls/hr TITRATE IV Last administered on 08/16/18at 03:51; Admin Dose 5 MLS/HR; Start 08/15/18 at 11:00 Hydralazine HCl (Apresoline) 20 mg Q2 PRN IV ELEVATED SYSTOLIC BP; Start 08/16/18 at 08:00 Assessment/Plan Hospital Course (Demo Recall) 1. s/p V. fib cardiac arrest 2. Acute myocardial infarction 3. Status post emergent PCI of the 100% occluded LAD as well as PTCA of the diagonal 4. Diabetes 5. Respiratory failure status post intubation on the vent 6. Hypertension 7. Renal failure : acute on chronic 8. Likely history of congestive heart failure 9. Dyslipidemia 10. Encephalopathy: Clear anoxic brain injury on hypothermia protocol 11. Morbid obesity 12. Anemia 13. elevated LFT 14. fever, bacteremia pneumonia 15. Malnutrition, anasarca . 16. septic shock and bacteremia 17. Diarrhea rule out C. difficile Recommendations: Continue with aspirin and Brilinta given her multiple stents Antibiotic management as per ID recommendation HD as per renal Vent support respiratory care as per internal medicine and pulmonary consultants. Increase Coreg as tolerated/needed Monitor renal function. f/u renal consult rec regarding hemodialysis PPI . Transfusion prn given her severe anemia and IN/ VF Will order stool to rule out C. difficile. Antibiotic management as per ID recommendation More than 35 minutes of critical care time was for management treatment is critically patient excluding any procedures Thank you for his referral. We will continue to follow along with you LOIS JOHNSON MD [facility] LOIS JOHNSON MD Aug 16, 2018 07:43
[2018-08-16] MEDS: DOCUSATE SODIUM 100 MG CAP PO SCH ×2 (08:10→20:41)
[2018-08-16] MEDS: ASPIRIN 81 MG TAB NGT SCH (08:10)
[2018-08-16] MEDS: CIPROFLOXACIN HCL OTIC DROP 0.25 ML LEFT EAR SCH ×2 (08:10→20:34)
[2018-08-16] MEDS: MULTIVITAMINS 30 ML CUP NGT SCH (08:10)
[2018-08-16] MEDS: FOLIC ACID 1 MG TAB NGT SCH (08:10)
[2018-08-16] MEDS: ZINC SULFATE 220 MG CAP NGT SCH (08:10)
[2018-08-16] MEDS: ASCORBIC ACID 500 MG TAB NGT SCH (08:10)
[2018-08-16] MEDS: TICAGRELOR 90 MG TABLET PO SCH ×2 (08:19→20:46)
[2018-08-16] MEDS: ACCU-CHEK XX SCH ×2 (08:20→20:49)
[2018-08-16] MEDS: ALBUTEROL HFA 8 GM INHALER INH SCH ×3 (08:35→19:19)
--- NOTE | 2018-08-16 08:51 | PN ---
DATE: 08/16/2018 SUBJECTIVE: The patient remains critically ill on full ventilatory support. The patient had minimal neurologic improvement. No other events noted. OBJECTIVE: VITAL SIGNS: Blood pressure is 168/100, pulse is 101, respirations 36, temperature 98.6. HEENT: Head is normocephalic. NECK: Supple. HEART: Regular rate. LUNGS: Show diminished breath sounds at the base. ABDOMEN: Soft, nontender to palpation without rebound or guarding. EXTREMITIES: Negative for clubbing, cyanosis. Positive edema. DERMATOLOGIC: No rashes. MUSCULOSKELETAL: No joint effusion. NEUROLOGIC: No change in exam. MEDICATIONS: Reviewed. LABORATORY DATA: Reviewed. The patient's BUN 43, creatinine 3.92. White count 12.5, hemoglobin 9.0 . The patient's ABG was reviewed. IMAGING STUDIES: Reviewed. Chest x-ray has been reviewed. ASSESSMENT AND PLAN: 1. Anuric acute kidney injury with previously normal baseline creatinine. Etiology of acute kidney injury is secondary to acute tubular necrosis due to sepsis, shock, contrast-associated nephropathy. The patient is currently dialysis dependent, receiving daily dialysis for solute clearance and volum e removal. We will continue dialysis again today. 2. Metabolic acidosis, improved. Continue 35 bicarbonate bath with hemodialysis. 3. Anemia. Continue to monitor hemoglobin and hematocrit levels. 4. Mineral bone disorder, monitor calcium and phosphorus levels. 5. Volume overload. Continue ultrafiltration with dialysis. 6. Sepsis, status post shock secondary to pneumonia and bacteremia. The patient is completing antib iotic course. 7. Ventilator-dependent respiratory failure. Vent settings and ABG was reviewed. Continue to monit or. 8. Cardiac arrest/ST elevated myocardial infarction. The patient is status post cardiac catheteriza tion with multiple stent placement. Continue medical management. Followup with Cardiology. 9. Acute encephalopathy, etiology is toxic metabolic. 10. Gastrointestinal and deep vein thrombosis prophylaxis. 11. Possible anoxic brain injury. Continue to monitor. Follow up with neurology. Please note I spent over 30 minutes of critical care time with this patient. Dictated By: BHUMI REDDY DO NR/NTS Conf#: [id number] DID#: [id number] CC: DANIAL TUCKER MD; HARPAL PEDROZA MD; LAUREN GREWAL MD;*EndCC*
--- NOTE | 2018-08-16 09:37 | CONS ---
Assessment/Plan Assessment/Plan Assessment/Plan (Daily) First of all family members have decided to change CODE STATUS to DO NOT RESUSCITATE. Family conference was done with all family members father mother and sister. Decision-makers are the entire family members the voice for the family was mother. All background information including history that led up the patient's hospitalizations were reviewed family members have a clear understandi ng of her underlying medical illness there hopes that she has no suffering. Obviously they are looking for a miracle also however I have explained to them that our concern is that she is sustained a reversible anoxic brain damage. We explored the fears or concerns or worries all questions were answered their strengths are at the very strong family members are close and have kimberly in God. There were no cultural issues that need to be concerned they are is very satisfied with communication between healthcare providers and family members. Goals of care were discussed I explained to family members at other than making a decision on CODE STATUS there was no necessity to make any decisions at this time. But I did make it very clear that patient may need to have a tracheostomy in the future and we will have a subsequent conversation if it goes that far. Estimated prognosis is extremely poor. Recommendations are continue with this level of care DO NOT RESUSCITATE control pain and symptoms as necessary continue to support family members psychologically spiritually socially. There is no existential legal or surrogate issues. Consultation Date/Type/Reason Admit Date/Time Aug 04, 2018 at 23:10 Initial Consult Date 08/15/18 Requesting Provider: HARPAL AGGARWAL MD Date/Time of Note DATE: 08/16/18 TIME: 09:33 Exam/Review of Systems Exam Vitals Vital Signs Date Temp Pulse Resp B/P (MAP) Pulse Ox O2 O2 Flow FiO2 Time Delivery Rate 08/16/18 101 37 168/100 91 Mechanical 06:00 (122) Ventilator 08/16/18 40 05:20 08/16/18 99.6 01:00 Intake and Output 08/15/18 08/15/18 08/16/18 1515:00 23:00 07:00 IntakeIntake Total 534.624 ml 501.0 ml 470.0 ml OutputOutput Total 0 ml 1500 ml 0 ml BalanceBalance 534.624 ml -999.0 ml 470.0 ml Results Result Diagram: 08/16/18 0434 08/16/18 0434 Results 24hrs Laboratory Tests Test 08/15/18 10:14 08/15/18 14:32 08/15/18 20:32 08/15/18 21:42 Platelet Count 107 L Prothrombin Time 13.3 Prothrombin Time 1.0 Ratio INR International 1.00 Normalized Ratio Activated 40.5 H Partial Thrombopl ast Time Thrombin Time 18.1 Hemoglobin 8.5 L 9.2 L Hematocrit 27.1 L 29.3 L Bedside Glucose 116 Test 08/16/18 04:34 08/16/18 07:00 08/16/18 08:12 White Blood Count 12.5 #H Red Blood Count 3.31 L Hemoglobin 9.0 L Hematocrit 28.9 L Mean Corpuscular 87.3 Volume Mean Corpuscular 27.2 L Hemoglobin Mean Corpuscular 31.1 L Hemoglobin Concen t Red Cell 17.0 H Distribution Width Platelet Count 130 #L Mean Platelet 13.8 H Volume Immature 4.200 H Granulocytes % Neutrophils % 74.9 Lymphocytes % 8.9 L Monocytes % 8.6 Eosinophils % 3.1 Basophils % 0.3 Nucleated Red 0.0 Blood Cells % Immature 0.530 H Granulocytes # Neutrophils # 9.4 H Lymphocytes # 1.1 Monocytes # 1.1 H Eosinophils # 0.4 Basophils # 0.0 Nucleated Red 0.0 Blood Cells # Sodium Level 140 Potassium Level 4.3 Chloride Level 99 Carbon Dioxide 30 Level Anion Gap 11 Blood Urea 43 H Nitrogen Creatinine 3.92 H Est Glomerular 13 L Filtrat Rate mL/min Glucose Level 119 Calcium Level 8.6 Phosphorus Level 3.1 Magnesium Level 2.3 Blood Gas Blood arterial Specimen Source Arterial Blood 08/16/2018 6:58:3 Date Drawn 8 AM Arterial Blood pH 7.357 (Temp corrected) Arterial Blood 52.6 H pCO2 (Temp correct) Arterial Blood 82.3 pO2 (Temp corrected) Arterial Blood 28.8 H HCO3 Arterial Blood 2.7 Base Excess Arterial Blood 95.6 Oxygen Saturation Dajuan Test ACCEPTAB Arterial Blood Right Radial Gas Puncture Site Arterial 0.5 Blood Carboxyhemo globin Arterial Blood 0.2 Methemoglobin Blood Gas A-a O2 142.4 H Differential Oxyhemoglobin 94.9 Percent Blood Gas 37.0 Temperature Blood Gas 32.0 Respiration Rate Blood Gas Actual 33 Respiration Rate Blood Gas VENT - AC Modality FiO2 40.0 Blood Gas Tidal 350.0 Volume Blood Gas Low 5.0 PEEP Setting Blood Gas TM Notified Whom Blood Gas 08/16/2018 7:38:3 Notified Time 1 AM Bedside Glucose 114 Medications Medication Current Medications Norepinephrine 250 ml @ 1.875 mls/ hr TITRATE IV Last administered on 08/10/18 00:41; Admin Dose 5.625 MLS/HR; Start 08/04/18 at 23:15 Ticagrelor (Brilinta) 90 mg BID PO Last administered on 08/16/18 08:19; Admin Dose 90 MG; Start 08/05/18 at 09:00 Morphine Sulfate (morphine) 1 mg Q1H PRN IV PAIN Last administered on 08/05/18 00:55; Admin Dose 1 MG; Start 08/04/18 at 23:30 Docusate Sodium (Colace) 100 mg BID PO Last administered on 08/15/18 20:08; Admin Dose 100 MG; Start 08/05/18 at 09:00 Atorvastatin Calcium (Lipitor) 80 mg DAILY@21 PO Last administered on 08/15/18 20:08; Admin Dose 80 MG; Start 08/05/18 at 21:00 Nitroglycerin/ Dextrose 250 ml @ 1.5 mls/hr TITRATE IV Last administered on 08/05/18 14:22; Admin Dose 72 MLS/HR; Start 08/05/18 at 01:00 Miscellaneous Information 1 ea NOTE XX ; Start 08/05/18 at 09:00 Acetaminophen (Tylenol Supp) 650 mg Q4H PRN [place] TEMP > 37C Last administered on 08/09/18 04:37; Admin Dose 650 MG; Start 08/05/18 at 11:00 Acetaminophen (Tylenol Liquid) 650 mg Q4H PRN PO TEMP > 37C Last administered on 08/11/18 11:55; Admin Dose 650 MG; Start 08/05/18 at 11:00 Meperidine HCl (Demerol) 25 mg Q4H PRN IV POST OPERATIVE SHIVERING Last administered on 08/05/18 16:31; Admin Dose 25 MG; Start 08/05/18 at 11:00 Eye Lubricant (Akwa Oint) 1 applic Q6 BOTH EYES Last administered on 08/16/18 05:14; Admin Dose 1 APPLIC; Start 08/05/18 at 12:00 Eye Lubricant (Artificial Tears Oph) 2 drop Q6 BOTH EYES Last administered on 08/16/18 05:14; Admin Dose 2 DROP; Start 08/05/18 at 12:00 Insulin Human Regular 100 unit/ Sodium Chloride 100 ml @ 0 mls/hr PER PROTOCOL IV ; Start 08/05/18 at 12:00 Miscellaneous Information (* Miscellaneous Pharmacy Order) Treatment of Hypoglycemia: 1.BG 51... Per protocol XX ; Start 08/05/18 at 12:00 Dextrose (D50w Syringe) 25 ml Q15M PRN IV .DECREASED GLUCOSE; Start 08/05/18 at 12:00 Dextrose (D50w Syringe) 50 ml Q15M PRN IV .DECREASED GLUCOSE; Start 08/05/18 at 12:00 Fentanyl 100 ml @ 2.5 mls/hr TITRATE IV Last administered on 08/16/18 03:54; Admin Dose 7.5 MLS/HR; Start 08/05/18 at 12:00 Meperidine HCl (Demerol) 12.5 mg Q2H PRN IV POST OPERATIVE SHIVERING; Start 08/05/18 at 17:00 Aspirin (Aspirin) 81 mg DAILY NGT Last administered on 08/16/18 08:10; Admin Dose 81 MG; Start 08/06/18 at 09:00 Diagnostic Test (Pha) (Accu-Chek) 1 ea Q12 XX Last administered on 08/16/18 08:20; Admin Dose 1 EA; Start 08/06/18 at 21:00 Multivitamins (Multivitamin) 30 ml DAILY NGT Last administered on 08/16/18 08:10; Admin Dose 30 ML; Start 08/09/18 at 09:00 Zinc Sulfate (Zinc Sulfate) 220 mg DAILY NGT Last administered on 08/16/18 08:10; Admin Dose 220 MG; Start 08/09/18 at 09:00 Folic Acid (Folic Acid) 1 mg DAILY NGT Last administered on 08/16/18 08:10; Admin Dose 1 MG; Start 08/09/18 at 09:00 Ascorbic Acid (Vitamin C) 500 mg DAILY NGT Last administered on 08/16/18 08:10; Admin Dose 500 MG; Start 08/09/18 at 09:00 Albuterol (Ventolin Hfa) 4 puff Q6HWA RESP THERAPY INH Last administered on 08/16/18 08:35; Admin Dose 4 PUFF; Start 08/09/18 at 14:00 Ipratropium [place] (Atrovent Hfa) 4 puff Q6H RESP THERAPY INH Last administered on 08/16/18 08:34; Admin Dose 4 PUFF; Start 08/09/18 at 14:00 Piperacillin Sod/ Tazobactam Sod 50 ml @ 100 mls/hr Q8 IVPB Last administered on 08/16/18 05:14; Admin Dose 100 MLS/HR; Start 08/10/18 at 14:00 IV Flush (NS 10 ml) 10 ml PRN PRN IV IV PROTOCOL; Start 08/11/18 at 16:30 Lansoprazole (Prevacid) 30 mg 0600,1800 PEG Last administered on 08/16/18 05:14; Admin Dose 30 MG; Start 08/11/18 at 18:28 Heparin Sodium (Porcine) (Heparin (1000 Units/ml)) 3,000 unit PRN PRN CATHETER Dialysis Last administered on 08/14/18 14:44; Admin Dose 3,000 UNIT; Start 08/12/18 at 14:30 Ciprofloxacin HCl (Ciprofloxacin HCl Otic) 5 drop BID LEFT EAR Last administered on 08/16/18 08:10; Admin Dose 5 DROP; Start 08/14/18 at 10:00; Stop 08/20/18 at 21:01 Labetalol HCl (Labetalol) 10 mg Q4H PRN IV ELEVATED SYSTOLIC BP > 160 Last administered on 08/16/18 05:14; Admin Dose 10 MG; Start 08/14/18 at 19:00 Midazolam HCl 50 ml @ 1 mls/hr TITRATE IV Last administered on 08/16/18 03:51; Admin Dose 5 MLS/HR; Start 08/15/18 at 11:00 Hydralazine HCl (Apresoline) 20 mg Q2 PRN IV ELEVATED SYSTOLIC BP; Start 08/16/18 at 08:00 Carvedilol (Coreg) 12.5 mg QID PO ; Start 08/16/18 at 13:00 TIEN HENRY Aug 16, 2018 09:37
--- NOTE | 2018-08-16 09:53 | PN ---
Date/Time of Note Date/Time of Note DATE: 08/16/18 TIME: 09:52 Objective Vitals Vital Signs Date Temp Pulse Resp B/P (MAP) Pulse Ox O2 O2 Flow FiO2 Time Delivery Rate 08/16/18 98 24 118/79 96 09:15 (92) 08/16/18 Mechanical 09:00 Ventilator 08/16/18 40 08:00 08/16/18 99.1 08:00 Intake and Output 08/15/18 08/15/18 08/16/18 1515:00 23:00 07:00 IntakeIntake Total 534.624 ml 501.0 ml 522.5 ml OutputOutput Total 0 ml 1500 ml 0 ml BalanceBalance 534.624 ml -999.0 ml 522.5 ml Results Result Diagram: 08/16/18 0434 08/16/18 0434 Medications Medications Current Medications Norepinephrine 250 ml @ 1.875 mls/ hr TITRATE IV Last administered on 08/10/18at 00:41; Admin Dose 5.625 MLS/HR; Start 08/04/18 at 23:15 Ticagrelor (Brilinta) 90 mg BID PO Last administered on 08/16/18at 08:19; Admin Dose 90 MG; Start 08/05/18 at 09:00 Morphine Sulfate (morphine) 1 mg Q1H PRN IV PAIN Last administered on 08/05/18at 00:55; Admin Dose 1 MG; Start 08/04/18 at 23:30 Docusate Sodium (Colace) 100 mg BID PO Last administered on 08/15/18at 20:08; Admin Dose 100 MG; Start 08/05/18 at 09:00 Atorvastatin Calcium (Lipitor) 80 mg DAILY@21 PO Last administered on 08/15/18at 20:08; Admin Dose 80 MG; Start 08/05/18 at 21:00 Nitroglycerin/ Dextrose 250 ml @ 1.5 mls/hr TITRATE IV Last administered on at 14:22; Admin Dose 72 MLS/HR; Start 08/05/18 at 01:00 Miscellaneous Information 1 ea NOTE XX ; Start 08/05/18 at 09:00 Acetaminophen (Tylenol Supp) 650 mg Q4H PRN [place] TEMP > 37C Last administered on 08/09/18at 04:37; Admin Dose 650 MG; Start 08/05/18 at 11:00 Acetaminophen (Tylenol Liquid) 650 mg Q4H PRN PO TEMP > 37C Last administered on 08/11/18 11:55; Admin Dose 650 MG; Start 08/05/18 at 11:00 Meperidine HCl (Demerol) 25 mg Q4H PRN IV POST OPERATIVE SHIVERING Last administered on 08/05/18 16:31; Admin Dose 25 MG; Start 08/05/18 at 11:00 Eye Lubricant (Akwa Oint) 1 applic Q6 BOTH EYES Last administered on 08/16/18 05:14; Admin Dose 1 APPLIC; Start 08/05/18 at 12:00 Eye Lubricant (Artificial Tears Oph) 2 drop Q6 BOTH EYES Last administered on 08/16/18 05:14; Admin Dose 2 DROP; Start 08/05/18 at 12:00 Insulin Human Regular 100 unit/ Sodium Chloride 100 ml @ 0 mls/hr PER PROTOCOL IV ; Start 08/05/18 at 12:00 Miscellaneous Information (* Miscellaneous Pharmacy Order) Treatment of Hypoglycemia: 1.BG 51... Per protocol XX ; Start 08/05/18 at 12:00 Dextrose (D50w Syringe) 25 ml Q15M PRN IV .DECREASED GLUCOSE; Start 08/05/18 at 12:00 Dextrose (D50w Syringe) 50 ml Q15M PRN IV .DECREASED GLUCOSE; Start 08/05/18 at 12:00 Fentanyl 100 ml @ 2.5 mls/hr TITRATE IV Last administered on 08/16/18 03:54; Admin Dose 7.5 MLS/HR; Start 08/05/18 at 12:00 Meperidine HCl (Demerol) 12.5 mg Q2H PRN IV POST OPERATIVE SHIVERING; Start 08/05/18 at 17:00 Aspirin (Aspirin) 81 mg DAILY NGT Last administered on 08/16/18 08:10; Admin Dose 81 MG; Start 08/06/18 at 09:00 Diagnostic Test (Pha) (Accu-Chek) 1 ea Q12 XX Last administered on 08/16/18 08:20; Admin Dose 1 EA; Start 08/06/18 at 21:00 Multivitamins (Multivitamin) 30 ml DAILY NGT Last administered on 08/16/18 08:10; Admin Dose 30 ML; Start 08/09/18 at 09:00 Zinc Sulfate (Zinc Sulfate) 220 mg DAILY NGT Last administered on 08/16/18 08:10; Admin Dose 220 MG; Start 08/09/18 at 09:00 Folic Acid (Folic Acid) 1 mg DAILY NGT Last administered on 08/16/18 08:10; Admin Dose 1 MG; Start 08/09/18 at 09:00 Ascorbic Acid (Vitamin C) 500 mg DAILY NGT Last administered on 08/16/18 08:10; Admin Dose 500 MG; Start 08/09/18 at 09:00 Albuterol (Ventolin Hfa) 4 puff Q6HWA RESP THERAPY INH Last administered on 08/16/18 08:35; Admin Dose 4 PUFF; Start 08/09/18 at 14:00 Ipratropium [place] (Atrovent Hfa) 4 puff Q6H RESP THERAPY INH Last administered on 08/16/18 08:34; Admin Dose 4 PUFF; Start 08/09/18 at 14:00 Piperacillin Sod/ Tazobactam Sod 50 ml @ 100 mls/hr Q8 IVPB Last administered on 08/16/18 05:14; Admin Dose 100 MLS/HR; Start 08/10/18 at 14:00 IV Flush (NS 10 ml) 10 ml PRN PRN IV IV PROTOCOL; Start 08/11/18 at 16:30 Lansoprazole (Prevacid) 30 mg 0600,1800 PEG Last administered on 08/16/18 05:14; Admin Dose 30 MG; Start 08/11/18 at 18:28 Heparin Sodium (Porcine) (Heparin (1000 Units/ml)) 3,000 unit PRN PRN CATHETER Dialysis Last administered on 08/14/18 14:44; Admin Dose 3,000 UNIT; Start 08/12/18 at 14:30 Ciprofloxacin HCl (Ciprofloxacin HCl Otic) 5 drop BID LEFT EAR Last administered on 08/16/18 08:10; Admin Dose 5 DROP; Start 08/14/18 at 10:00; Stop 08/20/18 at 21:01 Labetalol HCl (Labetalol) 10 mg Q4H PRN IV ELEVATED SYSTOLIC BP > 160 Last administered on 3/28/19at 05:14; Admin Dose 10 MG; Start 08/14/18 at 19:00 Midazolam HCl 50 ml @ 1 mls/hr TITRATE IV Last administered on 08/16/18at 03:51; Admin Dose 5 MLS/HR; Start 08/15/18 at 11:00 Hydralazine HCl (Apresoline) 20 mg Q2 PRN IV ELEVATED SYSTOLIC BP; Start 08/16/18 at 08:00 Carvedilol (Coreg) 12.5 mg QID PO ; Start 08/16/18 at 13:00 VTE Prophylaxis Risk score (from Ns)>0 risk: 19 SCD applied (from [facility] [place]): No SCD contraindication: other Lines/Catheters IV Catheter Type: Bajwa in Place: Yes Cont'd bajwa catheter reason: other (indicate) Assessment/Plan Hospital Course Subjective Patient nose bleeding subsided. Patient continues to be agitated when sedation is paused Objective Physical exam General: Patient is laying in bed intubated and sedated Mentation: Patient is not alert and oriented 4, Head: Normocephalic atraumatic Eyes: EOMI, pupils reactive to light Ears: Left auditory canal has dried up blood, unable to properly visualize tympanic membrane, right auditory canal clear Neck: Supple, nontender, midline Respiratory: Coarse to auscultation bilaterally Cardiovascular: regular rate, no obvious murmurs Gastrointestinal: non-tender to palpation, bowel sounds heard. Neurological: Unable to assess secondary to sedation Skin: No new skin lesions Assessment/Plan 1. Acute toxic/metabolic encephalopathy - Neurology recs appreciated and CT head noted -MRI when able per neurology -At this time it appears that the initial incident led to anoxic encephalopathy due to unknown downtime during cardiac arrest before she came into the hospital. - monitor for improvement in neurological status, very poor prognosis at this time, patient only has minimal eyelid waking up per nursing when sedation is possible but too agitated to continue with out sedation. 2. Septic shock secondary to PNA and bacteremia - WBC to be monitored closely - Blood cultures and sputum culture results noted. Will repeat blood cultures as needed - ID consulted for antibiotic recommendations. - Continue current antibiotics and pressor support with goal MAP> 65 3. Bilateral Pneumonia - CXR noted - Pulm on board and appreciate recommendations. Will continue current management and monitor for improvement in respiratory status - continue bronchodilators -ID on board Left auditory canal bleeding -Very mild, only dried blood at this time, however monitor closely as patient is on antiplatelet therapy due to coronary artery disease -ok per ID to start cipro eardrops Sinus infection -Continue IV antibiotics and eardrops, -ID recommended she is appreciated Anemia -Mild drop in hemoglobin, will need to monitor closely as cardiology as previously mentioned patient is on dual antiplatelet therapy, if continues to drop, cardiology may consider switching Brilinta to Plavix. -Improved significantly -ENT physician consulted, Dr. Martinez saw patient in no acute intervention for now as nose bleeding has significantly subsided. 4. CAD s/p PCI x2 - Cardiology on board and appreciate recommendations. Stressed importance of continuing DAPT given recent stent placements and high risk of restenosis - s/p emergent Cath 08/05 with successful PTCA and stenting of proximal and mid LAD, PTCA of the large first diagonal and thrombectomy of the LAD - Repeat PCI on 08/07 performed with stenting to LCx - plans for stenting of RCA prior to discharge if possible - ECHO results noted 5. Acute hypoxic respiratory failure - exacerbated by #1 - Pulm on board for vent management. appreciate consultation 6. HUSEYIN-now on dialysis - Nephrology on board and appreciate recommendations. -Now on HD - secondary to septic shock, ATN vs prerenal vs contrast induced nephropathy - will avoid nephrotoxic agents 7. Diabetes - A1c noted 8. Transaminitis-monitor closely - most likely secondary to hypoperfusion - continue monitoring LFTs - RUQ US noted 9. V-fib cardiac arrest secondary to STEMI - Completed hypothermia protocol - unknown how long patient was down for in the field 10. Disposition - Continue close monitoring in ICU while requiring vent management. -Unfortunately there is not significant improvement however according to nurses when sedation is turned down patient is slightly more arousable by opening her eyes a little bit but too agitated for sedation not to be continued -Palliative care physician to hold family meeting today regarding further plans of care. >30 minutes of critical care time spent with patient and family at bedside HARPAL PEDROZA Aug 16, 2018 09:53
--- NOTE | 2018-08-16 10:07 | CONS ---
Consult Date/Type/Reason Admit Date/Time Aug 04, 2018 at 23:10 Initial Consult Date 08/05/18 Type of Consult Pulmonary Requesting Provider: HARPAL AGGARWAL MD Date/Time of Note DATE: 08/16/18 TIME: 10:05 Subjective Still remains somnolent on mechanical ventilation. Decrease oropharyngeal bleeding. Currently hemodynamically stable. Objective Vital Signs Date Temp Pulse Resp B/P (MAP) Pulse Ox O2 O2 Flow FiO2 Time Delivery Rate 08/16/18 98 24 118/79 96 09:15 (92) 08/16/18 Mechanical 09:00 Ventilator 08/16/18 40 08:00 08/16/18 99.1 08:00 Intake and Output 08/15/18 08/15/18 08/16/18 1515:00 23:00 07:00 IntakeIntake Total 534.624 ml 501.0 ml 522.5 ml OutputOutput Total 0 ml 1500 ml 0 ml BalanceBalance 534.624 ml -999.0 ml 522.5 ml Exam GENERAL: Well-nourished well-developed lady orally intubated on mechanical ventilation VITAL SIGNS: per chart NECK: Supple. No JVD or lymphadenopathy. CARDIAC EXAM: S1, S2. No added sounds or murmurs. CHEST: clear bilaterally, No added sounds, rales or wheezes ABDOMEN: Soft, nontender. No guarding or rebound. EXTREMITIES: No cyanosis, clubbing or edema. NEUROLOGIC: Unable to assess Vent Setting Ventilator Support Mode: AC Fraction of Inspired Oxygen pe: 40 Positive End Expiratory Pressu: 5.0 Results/Medications Result Diagram: 08/16/18 0434 08/16/18 0434 Results 24 hrs Laboratory Tests Test 08/15/18 10:14 08/15/18 14:32 08/15/18 20:32 08/15/18 21:42 Platelet Count 107 L Prothrombin Time 13.3 Prothrombin Time 1.0 Ratio INR International 1.00 Normalized Ratio Activated 40.5 H Partial Thrombopl ast Time Thrombin Time 18.1 Hemoglobin 8.5 L 9.2 L Hematocrit 27.1 L 29.3 L Bedside Glucose 116 Test 08/16/18 04:34 08/16/18 07:00 08/16/18 08:12 White Blood Count 12.5 #H Red Blood Count 3.31 L Hemoglobin 9.0 L Hematocrit 28.9 L Mean Corpuscular 87.3 Volume Mean Corpuscular 27.2 L Hemoglobin Mean Corpuscular 31.1 L Hemoglobin Concen t Red Cell 17.0 H Distribution Width Platelet Count 130 #L Mean Platelet 13.8 H Volume Immature 4.200 H Granulocytes % Neutrophils % 74.9 Lymphocytes % 8.9 L Monocytes % 8.6 Eosinophils % 3.1 Basophils % 0.3 Nucleated Red 0.0 Blood Cells % Immature 0.530 H Granulocytes # Neutrophils # 9.4 H Lymphocytes # 1.1 Monocytes # 1.1 H Eosinophils # 0.4 Basophils # 0.0 Nucleated Red 0.0 Blood Cells # Sodium Level 140 Potassium Level 4.3 Chloride Level 99 Carbon Dioxide 30 Level Anion Gap 11 Blood Urea 43 H Nitrogen Creatinine 3.92 H Est Glomerular 13 L Filtrat Rate mL/min Glucose Level 119 Calcium Level 8.6 Phosphorus Level 3.1 Magnesium Level 2.3 Blood Gas Blood arterial Specimen Source Arterial Blood 08/16/2018 6:58:3 Date Drawn 8 AM Arterial Blood pH 7.357 (Temp corrected) Arterial Blood 52.6 H pCO2 (Temp correct) Arterial Blood 82.3 pO2 (Temp corrected) Arterial Blood 28.8 H HCO3 Arterial Blood 2.7 Base Excess Arterial Blood 95.6 Oxygen Saturation Dajuan Test ACCEPTAB Arterial Blood Right Radial Gas Puncture Site Arterial 0.5 Blood Carboxyhemo globin Arterial Blood 0.2 Methemoglobin Blood Gas A-a O2 142.4 H Differential Oxyhemoglobin 94.9 Percent Blood Gas 37.0 Temperature Blood Gas 32.0 Respiration Rate Blood Gas Actual 33 Respiration Rate Blood Gas VENT - AC Modality FiO2 40.0 Blood Gas Tidal 350.0 Volume Blood Gas Low 5.0 PEEP Setting Blood Gas TM Notified Whom Blood Gas 08/16/2018 7:38:3 Notified Time 1 AM Bedside Glucose 114 Medications Current Medications Norepinephrine 250 ml @ 1.875 mls/ hr TITRATE IV Last administered on 08/10/18at 00:41; Admin Dose 5.625 MLS/HR; Start 08/04/18 at 23:15 Ticagrelor (Brilinta) 90 mg BID PO Last administered on 08/16/18at 08:19; Admin Dose 90 MG; Start 08/05/18 at 09:00 Morphine Sulfate (morphine) 1 mg Q1H PRN IV PAIN Last administered on 08/05/18 00:55; Admin Dose 1 MG; Start 08/04/18 at 23:30 Docusate Sodium (Colace) 100 mg BID PO Last administered on 08/15/18 20:08; Admin Dose 100 MG; Start 08/05/18 at 09:00 Atorvastatin Calcium (Lipitor) 80 mg DAILY@21 PO Last administered on 08/15/18 20:08; Admin Dose 80 MG; Start 08/05/18 at 21:00 Nitroglycerin/ Dextrose 250 ml @ 1.5 mls/hr TITRATE IV Last administered on 08/05/18 14:22; Admin Dose 72 MLS/HR; Start 08/05/18 at 01:00 Miscellaneous Information 1 ea NOTE XX ; Start 08/05/18 at 09:00 Acetaminophen (Tylenol Supp) 650 mg Q4H PRN [place] TEMP > 37C Last administered on 08/09/18at 04:37; Admin Dose 650 MG; Start 08/05/18 at 11:00 Acetaminophen (Tylenol Liquid) 650 mg Q4H PRN PO TEMP > 37C Last administered on 08/11/18at 11:55; Admin Dose 650 MG; Start 08/05/18 at 11:00 Meperidine HCl (Demerol) 25 mg Q4H PRN IV POST OPERATIVE SHIVERING Last administered on 08/05/18 16:31; Admin Dose 25 MG; Start 08/05/18 at 11:00 Eye Lubricant (Akwa Oint) 1 applic Q6 BOTH EYES Last administered on 08/16/18 05:14; Admin Dose 1 APPLIC; Start 08/05/18 at 12:00 Eye Lubricant (Artificial Tears Oph) 2 drop Q6 BOTH EYES Last administered on 08/16/18 05:14; Admin Dose 2 DROP; Start 08/05/18 at 12:00 Insulin Human Regular 100 unit/ Sodium Chloride 100 ml @ 0 mls/hr PER PROTOCOL IV ; Start 08/05/18 at 12:00 Miscellaneous Information (* Miscellaneous Pharmacy Order) Treatment of Hypoglycemia: 1.BG 51... Per protocol XX ; Start 08/05/18 at 12:00 Dextrose (D50w Syringe) 25 ml Q15M PRN IV .DECREASED GLUCOSE; Start 08/05/18 at 12:00 Dextrose (D50w Syringe) 50 ml Q15M PRN IV .DECREASED GLUCOSE; Start 08/05/18 at 12:00 Fentanyl 100 ml @ 2.5 mls/hr TITRATE IV Last administered on 08/16/18 03:54; Admin Dose 7.5 MLS/HR; Start 08/05/18 at 12:00 Meperidine HCl (Demerol) 12.5 mg Q2H PRN IV POST OPERATIVE SHIVERING; Start 08/05/18 at 17:00 Aspirin (Aspirin) 81 mg DAILY NGT Last administered on 08/16/18 08:10; Admin Dose 81 MG; Start 08/06/18 at 09:00 Diagnostic Test (Pha) (Accu-Chek) 1 ea Q12 XX Last administered on 08/16/18 08:20; Admin Dose 1 EA; Start 08/06/18 at 21:00 Multivitamins (Multivitamin) 30 ml DAILY NGT Last administered on 08/16/18 08:10; Admin Dose 30 ML; Start 08/09/18 at 09:00 Zinc Sulfate (Zinc Sulfate) 220 mg DAILY NGT Last administered on 08/16/18 08:10; Admin Dose 220 MG; Start 08/09/18 at 09:00 Folic Acid (Folic Acid) 1 mg DAILY NGT Last administered on 08/16/18 08:10; Admin Dose 1 MG; Start 08/09/18 at 09:00 Ascorbic Acid (Vitamin C) 500 mg DAILY NGT Last administered on 08/16/18 08:10; Admin Dose 500 MG; Start 08/09/18 at 09:00 Albuterol (Ventolin Hfa) 4 puff Q6HWA RESP THERAPY INH Last administered on 08/16/18 08:35; Admin Dose 4 PUFF; Start 08/09/18 at 14:00 Ipratropium [place] (Atrovent Hfa) 4 puff Q6H RESP THERAPY INH Last administered on 08/16/18 08:34; Admin Dose 4 PUFF; Start 08/09/18 at 14:00 Piperacillin Sod/ Tazobactam Sod 50 ml @ 100 mls/hr Q8 IVPB Last administered on 08/16/18 05:14; Admin Dose 100 MLS/HR; Start 08/10/18 at 14:00 IV Flush (NS 10 ml) 10 ml PRN PRN IV IV PROTOCOL; Start 08/11/18 at 16:30 Lansoprazole (Prevacid) 30 mg 0600,1800 PEG Last administered on 08/16/18at 05:14; Admin Dose 30 MG; Start 08/11/18 at 18:28 Heparin Sodium (Porcine) (Heparin (1000 Units/ml)) 3,000 unit PRN PRN CATHETER Dialysis Last administered on 08/14/18at 14:44; Admin Dose 3,000 UNIT; Start 08/12/18 at 14:30 Ciprofloxacin HCl (Ciprofloxacin HCl Otic) 5 drop BID LEFT EAR Last administered on 08/16/18at 08:10; Admin Dose 5 DROP; Start 08/14/18 at 10:00; Stop 08/20/18 at 21:01 Labetalol HCl (Labetalol) 10 mg Q4H PRN IV ELEVATED SYSTOLIC BP > 160 Last administered on 08/16/18at 05:14; Admin Dose 10 MG; Start 08/14/18 at 19:00 Midazolam HCl 50 ml @ 1 mls/hr TITRATE IV Last administered on 08/16/18at 03:51; Admin Dose 5 MLS/HR; Start 08/15/18 at 11:00 Hydralazine HCl (Apresoline) 20 mg Q2 PRN IV ELEVATED SYSTOLIC BP; Start 08/16/18 at 08:00 Carvedilol (Coreg) 12.5 mg QID PO ; Start 08/16/18 at 13:00 Assessment/Plan Hospital Course (Demo Recall) IMP: 1. Ventricular Fibrillation Arrest--s/p ROSC 2/2 STEMI s/p PCI status post hyp othermia protocol. Multivessel coronary artery disease status post stent placement x3 2. STEMI, Status post stent x3 placement. 3. Probable anoxic encephalopathy given persistent altered mental status despite sedation vacations. 4. Hypoxemic respiratory failure/ARDS 5. HUSEYIN--likely ATN continues hemodialysis 6. Ischemic hepatopathy--2/2 arrest 7. Metabolic acidosis--2/2 arrest 8. Anemia 9 Thrombocytopenia RECS: 1. Neuro recommendations, consider repeat EEG 2. MRI today if stable 3. Allow for permissive hypercapnia given poor lung/chest wall compliance (Pplat ~ 38). 4. Low tidal volume strategy as tolerated 5. Continue Abx 6. Pulmonary toilet 7. Hemodialysis per nephrology 8. Tube feeding as tolerated 9. Change in CODE STATUS noted. Critical care time 40 minutes. Extremely poor prognosis CHINO ANDERSON MD, [facility] Aug 16, 2018 10:07
--- NOTE | 2018-08-16 16:02 | CONS ---
Assessment/Plan Assessment/Plan Hospital Course 38 yo F w/ reported Hx of HTN and DM2 who is admitted to the [facility] ICU s/p a vfib cardiac arrest. She is now s/p cardiac catheterization w/ 2 coronary stents. now s/p targeted temperature therapy. Neurology is consulted given persistent encephalopathy...which is likely multifactorial -- toxic-metabolic, medications...hypoxic-ischemic? MRI brain is notable for multiple bihemispheric infarcts... likely of cardioembolic origin, given her recent arrest. CTH is is notable for scalp swelling, without obvious acute intracranial pathology. EEG is without epileptiform activity Ammonia level wnl Echo on 08/05 in unrevealing. P: Add CUS, ESR, RPR, hypercoag panel; defer CTA for now given poor renal function Continue ASA/Lipitor for secondary stroke prevention Wean sedating medications as soon as able Continued medical management per primary Will follow clinically Consultation Date/Type/Reason Admit Date/Time Aug 04, 2018 at 23:10 Type of Consult Neurology Requesting Provider: HARPAL AGGARWAL MD Date/Time of Note DATE: 08/16/18 TIME: 15:57 24 HR Interval Summary Free Text/Dictation Continues critical care. S/p MRI Subjective hx not possible: pt non-verbal, pt critical Exam Vital Signs Vitals Vital Signs Date Temp Pulse Resp B/P (MAP) Pulse Ox O2 O2 Flow FiO2 Time Delivery Rate 08/16/18 100 24 141/92 93 Mechanical 15:00 (108) Ventilator 08/16/18 40 13:20 08/16/18 99.0 12:30 Intake and Output 08/15/18 08/15/18 08/16/18 1515:00 23:00 07:00 IntakeIntake Total 534.624 ml 501.0 ml 522.5 ml OutputOutput Total 0 ml 1500 ml 0 ml BalanceBalance 534.624 ml -999.0 ml 522.5 ml Exam PE: Gen Appearance: No Apparent Distress HEENT: Intubated Cardiovascular: Regular rate Abdomen: Soft Extremities: Dry NE: The patient was obtunded and nonverbal. Cranial nerve examination was limited by mental status. Pupils were equal and reactive to light. There was no afferent pupillary defect. Funduscopic examination was limited. Face was grossly symmetric, w/ present corneal and cough reflexes. Tone was normal. Muscle bulk was normal. I did not see fasciculations. The patient withdrew to noxious stimulation in her LLE. Coordination and gait testing was limited by mental status. Arm and leg reflexes were within normal limits and symmetric. Alvarez's sign was absent. Plantar responses were flexor. KAYCEE ESCOBEDO NP Aug 16, 2018 16:02
--- NOTE | 2018-08-16 17:57 | CONS ---
Assessment/Plan Assessment/Plan Hospital Course (Demo Recall) No acute changes. Patient has a bleeding from her trachea with suctioning. T- max 100.5 yesterday T-current 98.8 WBC 12.5 platelets 130 BUN 43 creatinine 3.92 MRI of the brain revealed several small punctate acute infarcts in the bilateral frontal and parietal subcortical white matter and in the left occipital periventricular white matter. Please see full report in the chart Chest x-ray this morning unchanged patient she has basically Antimicrobials: Mary Microbiology: Urine culture on admission grew E. coli and Proteus, blood cultures growing oxacillin sensitive staph aureus endotracheal aspirate also growing oxacillin sensitive staph aureus ear drainage preliminary growing staph aureus, repeat blood cultures 2 days ago negative Indwelling: Endotracheal tube, orogastric tube, right femoral Devan, right upper extremity PICC line Physical examination: Obese well-developed middle-aged woman who is intubated in no distress. Head atraumatic normocephalic neck is supple chest rise symmetrical breath sounds diminished bases. Heart: S1-S2. Abdomen distended. Bowel sounds hypoactive. Extremities cyanotic Assessment: 1. Severe sepsis 2. Oxacillin sensitive staph aureus bacteremia 3. Oxacillin sensitive staph aureus pneumonia 4. Polymicrobial UTI 5. ST elevation NC, status post stent 6. Status post V. fib arrest 7. Acute renal failure, started on hemodialysis 8. 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 Anemia and thrombocytopenia 10. Acute sinusitis and bilateral mastoiditis 11. Morbid obesity 12. Diarrhea, r/o C dif Plan: Remains unchanged, continue antibiotics, add Flagyl, f/u neurology recommendations. Prognosis poor. Pt is DNR status Consultation Date/Type/Reason Admit Date/Time Aug 04, 2018 at 23:10 Initial Consult Date 08/12/18 Type of Consult id Requesting Provider: HARPAL AGGARWAL MD Date/Time of Note DATE: 08/16/18 TIME: 17:55 Exam/Review of Systems Exam Vitals Vital Signs Date Temp Pulse Resp B/P (MAP) Pulse Ox O2 O2 Flow FiO2 Time Delivery Rate 08/16/18 99 20 159/110 96 Mechanical 17:20 (126) Ventilator T Tube 08/16/18 40 17:00 08/16/18 98.8 16:00 Intake and Output 08/15/18 08/15/18 08/16/18 1515:00 23:00 07:00 IntakeIntake Total 534.624 ml 501.0 ml 522.5 ml OutputOutput Total 0 ml 1500 ml 0 ml BalanceBalance 534.624 ml -999.0 ml 522.5 ml Results Result Diagram: 08/16/18 0434 08/16/18 0434 Results 24hrs Laboratory Tests Test 08/15/18 20:32 08/15/18 21:42 08/16/18 04:34 08/16/18 07:00 Bedside Glucose 116 Hemoglobin 9.2 L 9.0 L Hematocrit 29.3 L 28.9 L White Blood Count 12.5 #H Red Blood Count 3.31 L Mean Corpuscular 87.3 Volume Mean Corpuscular 27.2 L Hemoglobin Mean Corpuscular 31.1 L Hemoglobin Concen t Red Cell 17.0 H Distribution Width Platelet Count 130 #L Mean Platelet 13.8 H Volume Immature 4.200 H Granulocytes % Neutrophils % 74.9 Lymphocytes % 8.9 L Monocytes % 8.6 Eosinophils % 3.1 Basophils % 0.3 Nucleated Red 0.0 Blood Cells % Immature 0.530 H Granulocytes # Neutrophils # 9.4 H Lymphocytes # 1.1 Monocytes # 1.1 H Eosinophils # 0.4 Basophils # 0.0 Nucleated Red 0.0 Blood Cells # Sodium Level 140 Potassium Level 4.3 Chloride Level 99 Carbon Dioxide 30 Level Anion Gap 11 Blood Urea 43 H Nitrogen Creatinine 3.92 H Est Glomerular 13 L Filtrat Rate mL/min Glucose Level 119 Calcium Level 8.6 Phosphorus Level 3.1 Magnesium Level 2.3 Blood Gas Blood arterial Specimen Source Arterial Blood 08/16/2018 6:58:3 Date Drawn 8 AM Arterial Blood pH 7.357 (Temp corrected) Arterial Blood 52.6 H pCO2 (Temp correct) Arterial Blood 82.3 pO2 (Temp corrected) Arterial Blood 28.8 H HCO3 Arterial Blood 2.7 Base Excess Arterial Blood 95.6 Oxygen Saturation Dajuan Test ACCEPTAB Arterial Blood Right Radial Gas Puncture Site Arterial 0.5 Blood Carboxyhemo globin Arterial Blood 0.2 Methemoglobin Blood Gas A-a O2 142.4 H Differential Oxyhemoglobin 94.9 Percent Blood Gas 37.0 Temperature Blood Gas 32.0 Respiration Rate Blood Gas Actual 33 Respiration Rate Blood Gas VENT - AC Modality FiO2 40.0 Blood Gas Tidal 350.0 Volume Blood Gas Low 5.0 PEEP Setting Blood Gas TM Notified Whom Blood Gas 08/16/2018 7:38:3 Notified Time 1 AM Test 08/16/18 08:12 Bedside Glucose 114 Medications Medication Current Medications Norepinephrine 250 ml @ 1.875 mls/ hr TITRATE IV Last administered on 08/10/18 00:41; Admin Dose 5.625 MLS/HR; Start 08/04/18 at 23:15 Ticagrelor (Brilinta) 90 mg BID PO Last administered on 08/16/18 08:19; Admin Dose 90 MG; Start 08/05/18 at 09:00 Morphine Sulfate (morphine) 1 mg Q1H PRN IV PAIN Last administered on 08/05/18 00:55; Admin Dose 1 MG; Start 08/04/18 at 23:30 Docusate Sodium (Colace) 100 mg BID PO Last administered on 08/15/18 20:08; Admin Dose 100 MG; Start 08/05/18 at 09:00 Atorvastatin Calcium (Lipitor) 80 mg DAILY@21 PO Last administered on 08/15/18 20:08; Admin Dose 80 MG; Start 08/05/18 at 21:00 Nitroglycerin/ Dextrose 250 ml @ 1.5 mls/hr TITRATE IV Last administered on 08/05/18 14:22; Admin Dose 72 MLS/HR; Start 08/05/18 at 01:00 Miscellaneous Information 1 ea NOTE XX ; Start 08/05/18 at 09:00 Acetaminophen (Tylenol Supp) 650 mg Q4H PRN [place] TEMP > 37C Last administered on 08/09/18 04:37; Admin Dose 650 MG; Start 08/05/18 at 11:00 Acetaminophen (Tylenol Liquid) 650 mg Q4H PRN PO TEMP > 37C Last administered on 08/11/18 11:55; Admin Dose 650 MG; Start 08/05/18 at 11:00 Meperidine HCl (Demerol) 25 mg Q4H PRN IV POST OPERATIVE SHIVERING Last a dministered on 08/05/18 16:31; Admin Dose 25 MG; Start 08/05/18 at 11:00 Eye Lubricant (Akwa Oint) 1 applic Q6 BOTH EYES Last administered on 08/16/18 12:00; Admin Dose 1 APPLIC; Start 08/05/18 at 12:00 Eye Lubricant (Artificial Tears Oph) 2 drop Q6 BOTH EYES Last administered on 08/16/18 12:00; Admin Dose 2 DROP; Start 08/05/18 at 12:00 Insulin Human Regular 100 unit/ Sodium Chloride 100 ml @ 0 mls/hr PER PROTOCOL IV ; Start 08/05/18 at 12:00 Miscellaneous Information (* Miscellaneous Pharmacy Order) Treatment of Hypoglycemia: 1.BG 51... Per protocol XX ; Start 08/05/18 at 12:00 Dextrose (D50w Syringe) 25 ml Q15M PRN IV .DECREASED GLUCOSE; Start 08/05/18 at 12:00 Dextrose (D50w Syringe) 50 ml Q15M PRN IV .DECREASED GLUCOSE; Start 08/05/18 at 12:00 Fentanyl 100 ml @ 2.5 mls/hr TITRATE IV Last administered on 08/16/18 03:54; Admin Dose 7.5 MLS/HR; Start 08/05/18 at 12:00 Meperidine HCl (Demerol) 12.5 mg Q2H PRN IV POST OPERATIVE SHIVERING; Start 08/05/18 at 17:00 Aspirin (Aspirin) 81 mg DAILY NGT Last administered on 08/16/18 08:10; Admin Dose 81 MG; Start 08/06/18 at 09:00 Diagnostic Test (Pha) (Accu-Chek) 1 ea Q12 XX Last administered on 08/16/18 08:20; Admin Dose 1 EA; Start 08/06/18 at 21:00 Multivitamins (Multivitamin) 30 ml DAILY NGT Last administered on 08/16/18 08:10; Admin Dose 30 ML; Start 08/09/18 at 09:00 Zinc Sulfate (Zinc Sulfate) 220 mg DAILY NGT Last administered on 08/16/18 08:10; Admin Dose 220 MG; Start 08/09/18 at 09:00 Folic Acid (Folic Acid) 1 mg DAILY NGT Last administered on 08/16/18 08:10; Admin Dose 1 MG; Start 08/09/18 at 09:00 Ascorbic Acid (Vitamin C) 500 mg DAILY NGT Last administered on 08/16/18 08:10; Admin Dose 500 MG; Start 08/09/18 at 09:00 Albuterol (Ventolin Hfa) 4 puff Q6HWA RESP THERAPY INH Last administered on 08/16/18 14:53; Admin Dose 4 PUFF; Start 08/09/18 at 14:00 Ipratropium [place] (Atrovent Hfa) 4 puff Q6H RESP THERAPY INH Last administered on 08/16/18 14:53; Admin Dose 4 PUFF; Start 08/09/18 at 14:00 Piperacillin Sod/ Tazobactam Sod 50 ml @ 100 mls/hr Q8 IVPB Last administered on 08/16/18 15:29; Admin Dose 100 MLS/HR; Start 08/10/18 at 14:00 IV Flush (NS 10 ml) 10 ml PRN PRN IV IV PROTOCOL; Start 08/11/18 at 16:30 Lansoprazole (Prevacid) 30 mg 0600,1800 PEG Last administered on 08/16/18 05:14; Admin Dose 30 MG; Start 08/11/18 at 18:28 Heparin Sodium (Porcine) (Heparin (1000 Units/ml)) 3,000 unit PRN PRN CATHETER Dialysis Last administered on 08/14/18 14:44; Admin Dose 3,000 UNIT; Start 08/12/18 at 14:30 Ciprofloxacin HCl (Ciprofloxacin HCl Otic) 5 drop BID LEFT EAR Last administered on 08/16/18 08:10; Admin Dose 5 DROP; Start 08/14/18 at 10:00; Stop 08/20/18 at 21:01 Labetalol HCl (Labetalol) 10 mg Q4H PRN IV ELEVATED SYSTOLIC BP > 160 Last administered on 08/16/18 05:14; Admin Dose 10 MG; Start 08/14/18 at 19:00 Midazolam HCl 50 ml @ 1 mls/hr TITRATE IV Last administered on 08/16/18 03:51; Admin Dose 5 MLS/HR; Start 08/15/18 at 11:00 Hydralazine HCl (Apresoline) 20 mg Q2 PRN IV ELEVATED SYSTOLIC BP; Start 08/16/18 at 08:00 Carvedilol (Coreg) 12.5 mg QID PO ; Start 08/16/18 at 13:00 WIN LUCIANO NP Aug 16, 2018 17:57
[2018-08-16] MEDS: HEPARIN 1000 UNITS/ML 10 ML INJ CATHETER PRN (20:33)
[2018-08-16] MEDS: ATORVASTATIN 80 MG TAB PO SCH (20:39)
[2018-08-16] MEDS: metroNIDAZOLE 500 MG/NS (PMX) 100 ML IVPB SCH (21:18)
[2018-08-16] MEDS: hydrALAzine 20 MG INJ IV PRN (23:04)
[2018-08-17] VITALS (47 sets, daily range): BP systolic 108–180; BP diastolic 69–119; PULSE 74–120; RESP 20–36
[2018-08-17] MEDS: IPRATROPIUM (HFA) 12.9 GM INHALER INH SCH ×4 (01:11→20:38)
[2018-08-17] MEDS: OCULAR LUBRICANT 3.5 GM OPH OINT BOTH EYES SCH ×4 (05:21→23:36)
[2018-08-17] MEDS: metroNIDAZOLE 500 MG/NS (PMX) 100 ML IVPB SCH ×3 (05:21→20:46)
[2018-08-17] MEDS: LANSOPRAZOLE 30 MG CAP PEG SCH ×2 (05:21→18:26)
[2018-08-17] MEDS: ARTIFICIAL TEARS 15 ML OPH BOTH EYES SCH ×4 (05:21→23:36)
[2018-08-17] MEDS: PIPER-TAZO 2.25 GM/NS 50 ML IVPB SCH ×3 (05:21→20:46)
[2018-08-17] MEDS: hydrALAzine 20 MG INJ IV PRN ×2 (06:36→18:30)
--- NOTE | 2018-08-17 07:55 | CONS ---
Consult Date/Type/Reason Admit Date/Time Aug 04, 2018 at 23:10 Initial Consult Date 08/05/18 Type of Consultation: cv Requesting Provider: HARPAL AGGARWAL MD Date/Time of Note DATE: 08/17/18 TIME: 07:54 Subjective Interventional cardiology follow-up progress note/critical care Subjective: Events noted discussed with the staff and physicians. Patient remains intubated on the vent and remains nonresponsive in ICU No V tachycardia or V fibrillation. BP is stable/high off of pressors. no coffee ground emesis and less significant oral and nasopharyngeal bleeding noted today events noted s/p PCI 100% occluded LAD 08/04 S/P PCI LCX/ OM Objective: General: Obese female started with intubation on the vent HEENT: NC/AT. pupils are equal. round. NECK: . no stridor. CV: RRR. systolic murmur; no gallop or rubs. PULM: no wheezing + diffuse rhonchi. GI: Obese SOFT, NT, ND, no rebound or guarding Extremity: +B/L LE edema. no clubbing. neuro: Sedated Psych: Calm now rectal: deferred EKG August 06, 2018 was personally within normal sinus rhythm. T wave inversions anterior and inferior leads ECG 08/07: NSR ST T abn c/w ant/lat ischemia CXR 08/14: Nonspecific patchy bilateral pulmonary opacity, mildly improved on the right. No pneumothorax. Endotracheal tube, nasogastric tube, and right-sided PICC line remain in place. Stable mild cardiomegaly. The osseous structures are remarkable for degenerative enthesopathy of the spine. Chest x-ray done August 06 shows:No evidence for active cardiopulmonary disease. ECHO personally reviewed Normal left ventricular cavity size. Normal left ventricular wall thickness. Ejection fraction is visually estimated at 55-65 %. Normal appearance of the mitral valve. Mitral valve is not well visualized. No mitral valve regurgitation is seen. Aortic valve not well visualized. No aortic regurgitation. Normal appearance of the tricuspid valve. Unable to obtain RVSP due to minimal presence of tricuspid regurgitation. No evidence of tricuspid regurgitation. Normal pericardium with no significant pericardial effusion. suboptimal study. Objective Vitals Vital Signs Date Temp Pulse Resp B/P (MAP) Pulse Ox O2 O2 Flow FiO2 Time Delivery Rate 08/17/18 107 22 163/104 93 Mechanical 06:00 (123) Ventilator 3/29/19 40 04:55 08/17/18 99.9 04:00 Intake and Output 08/16/18 08/16/18 08/17/18 1515:00 23:00 07:00 IntakeIntake Total 345.0 ml 520 ml 490 ml OutputOutput Total 2300 ml BalanceBalance 345.0 ml -1780 ml 490 ml Results/Medications Result Diagram: 08/17/18 0445 08/17/18 0445 Results 24 hrs Laboratory Tests Test 08/16/18 08:12 08/16/18 16:46 08/16/18 20:54 08/17/18 04:45 Bedside Glucose 114 114 Erythrocyte > 130 H Sedimentation Rate White Blood Count 12.5 H Red Blood Count 3.45 L Hemoglobin 9.5 L Hematocrit 29.5 L Mean Corpuscular 85.5 Volume Mean Corpuscular 27.5 L Hemoglobin Mean Corpuscular 32.2 Hemoglobin Concent Red Cell 16.5 H Distribution Width Platelet Count 174 # Mean Platelet Volume 13.5 H Immature 2.700 H Granulocytes % Neutrophils % 78.0 H Lymphocytes % 8.7 L Monocytes % 8.4 Eosinophils % 1.8 Basophils % 0.4 Nucleated Red Blood 0.0 Cells % Immature 0.340 H Granulocytes # Neutrophils # 9.8 H Lymphocytes # 1.1 Monocytes # 1.1 H Eosinophils # 0.2 Basophils # 0.1 Nucleated Red Blood 0.0 Cells # Sodium Level 139 Potassium Level 4.0 Chloride Level 98 Carbon Dioxide Level 30 Anion Gap 11 Blood Urea Nitrogen 41 H Creatinine 3.62 H Est Glomerular 14 L Filtrat Rate mL/min Glucose Level 123 Calcium Level 8.7 Phosphorus Level 2.6 Magnesium Level 2.3 Medications Current Medications Norepinephrine 250 ml @ 1.875 mls/ hr TITRATE IV Last administered on 08/10/18at 00:41; Admin Dose 5.625 MLS/HR; Start 08/04/18 at 23:15 Ticagrelor (Brilinta) 90 mg BID PO Last administered on 08/16/18at 20:46; Admin Dose 90 MG; Start 08/05/18 at 09:00 Morphine Sulfate (morphine) 1 mg Q1H PRN IV PAIN Last administered on 08/05/18at 00:55; Admin Dose 1 MG; Start 08/04/18 at 23:30 Docusate Sodium (Colace) 100 mg BID PO Last administered on 08/15/18 20:08; Admin Dose 100 MG; Start 08/05/18 at 09:00 Atorvastatin Calcium (Lipitor) 80 mg DAILY@21 PO Last administered on 08/16/18 20:39; Admin Dose 80 MG; Start 08/05/18 at 21:00 Nitroglycerin/ Dextrose 250 ml @ 1.5 mls/hr TITRATE IV Last administered on 08/05/18 14:22; Admin Dose 72 MLS/HR; Start 08/05/18 at 01:00 Miscellaneous Information 1 ea NOTE XX ; Start 08/05/18 at 09:00 Acetaminophen (Tylenol Supp) 650 mg Q4H PRN [place] TEMP > 37C Last administered on 08/09/18 04:37; Admin Dose 650 MG; Start 08/05/18 at 11:00 Acetaminophen (Tylenol Liquid) 650 mg Q4H PRN PO TEMP > 37C Last administered on 08/11/18at 11:55; Admin Dose 650 MG; Start 08/05/18 at 11:00 Meperidine HCl (Demerol) 25 mg Q4H PRN IV POST OPERATIVE SHIVERING Last administered on 08/05/18 16:31; Admin Dose 25 MG; Start 08/05/18 at 11:00 Eye Lubricant (Akwa Oint) 1 applic Q6 BOTH EYES Last administered on 08/17/18 05:21; Admin Dose 1 APPLIC; Start 08/05/18 at 12:00 Eye Lubricant (Artificial Tears Oph) 2 drop Q6 BOTH EYES Last administered on 08/17/18 05:21; Admin Dose 2 DROP; Start 08/05/18 at 12:00 Insulin Human Regular 100 unit/ Sodium Chloride 100 ml @ 0 mls/hr PER PROTOCOL IV ; Start 08/05/18 at 12:00 Miscellaneous Information (* Miscellaneous Pharmacy Order) Treatment of Hypoglycemia: 1.BG 51... Per protocol XX ; Start 08/05/18 at 12:00 Dextrose (D50w Syringe) 25 ml Q15M PRN IV .DECREASED GLUCOSE; Start 08/05/18 at 12:00 Dextrose (D50w Syringe) 50 ml Q15M PRN IV .DECREASED GLUCOSE; Start 08/05/18 at 12:00 Fentanyl 100 ml @ 2.5 mls/hr TITRATE IV Last administered on 08/16/18 03:54; Admin Dose 7.5 MLS/HR; Start 08/05/18 at 12:00 Meperidine HCl (Demerol) 12.5 mg Q2H PRN IV POST OPERATIVE SHIVERING; Start 08/05/18 at 17:00 Aspirin (Aspirin) 81 mg DAILY NGT Last administered on 08/16/18 08:10; Admin Dose 81 MG; Start 08/06/18 at 09:00 Diagnostic Test (Pha) (Accu-Chek) 1 ea Q12 XX Last administered on 08/16/18 08:20; Admin Dose 1 EA; Start 08/06/18 at 21:00 Multivitamins (Multivitamin) 30 ml DAILY NGT Last administered on 08/16/18 08 :10; Admin Dose 30 ML; Start 08/09/18 at 09:00 Zinc Sulfate (Zinc Sulfate) 220 mg DAILY NGT Last administered on 08/16/18 08:10; Admin Dose 220 MG; Start 08/09/18 at 09:00 Folic Acid (Folic Acid) 1 mg DAILY NGT Last administered on 08/16/18 08:10; Admin Dose 1 MG; Start 08/09/18 at 09:00 Ascorbic Acid (Vitamin C) 500 mg DAILY NGT Last administered on 08/16/18 08:10; Admin Dose 500 MG; Start 08/09/18 at 09:00 Albuterol (Ventolin Hfa) 4 puff Q6HWA RESP THERAPY INH Last administered on 08/16/18 14:53; Admin Dose 4 PUFF; Start 08/09/18 at 14:00 Ipratropium Arnold (Atrovent Hfa) 4 puff Q6H RESP THERAPY INH Last administered on 08/17/18 01:11; Admin Dose 4 PUFF; Start 08/09/18 at 14:00 Piperacillin Sod/ Tazobactam Sod 50 ml @ 100 mls/hr Q8 IVPB Last administered on 08/17/18 05:21; Admin Dose 100 MLS/HR; Start 08/10/18 at 14:00 IV Flush (NS 10 ml) 10 ml PRN PRN IV IV PROTOCOL; Start 08/11/18 at 16:30 Lansoprazole (Prevacid) 30 mg 0600,1800 PEG Last administered on 08/17/18 05:21; Admin Dose 30 MG; Start 08/11/18 at 18:28 Heparin Sodium (Porcine) (Heparin (1000 Units/ml)) 3,000 unit PRN PRN CATHETER Dialysis Last administered on 08/16/18 20:33; Admin Dose 3,000 UNIT; Start 08/12/18 at 14:30 Ciprofloxacin HCl (Ciprofloxacin HCl Otic) 5 drop BID LEFT EAR Last administ ered on 08/16/18 20:34; Admin Dose 5 DROP; Start 08/14/18 at 10:00; Stop 08/20/18 at 21:01 Labetalol HCl (Labetalol) 10 mg Q4H PRN IV ELEVATED SYSTOLIC BP > 160 Last administered on 08/16/18 05:14; Admin Dose 10 MG; Start 08/14/18 at 19:00 Midazolam HCl 50 ml @ 1 mls/hr TITRATE IV Last administered on 08/16/18 03:51; Admin Dose 5 MLS/HR; Start 08/15/18 at 11:00 Hydralazine HCl (Apresoline) 20 mg Q2 PRN IV ELEVATED SYSTOLIC BP Last administered on 08/17/18 06:36; Admin Dose 20 MG; Start 08/16/18 at 08:00 Metronidazole 100 ml @ 100 mls/hr Q8 IVPB Last administered on 08/17/18 05:21; Admin Dose 100 MLS/HR; Start 08/16/18 at 22:00 Carvedilol (Coreg) 12.5 mg Q6H PO Last administered on 08/17/18 05:24; Admin Dose 12.5 MG; Start 08/17/18 at 01:00 Assessment/Plan Hospital Course (Demo Recall) 1. s/p V. fib cardiac arrest 2. Acute myocardial infarction 3. Status post emergent PCI of the 100% occluded LAD as well as PTCA of the diagonal 4. Diabetes 5. Respiratory failure status post intubation on the vent 6. Hypertension 7. Renal failure : acute on chronic 8. Likely history of congestive heart failure 9. Dyslipidemia 10. Encephalopathy: Clear anoxic brain injury on hypothermia protocol 11. Morbid obesity 12. Anemia 13. elevated LFT 14. fever, bacteremia pneumonia 15. Malnutrition, anasarca . 16. septic shock and bacteremia 17. Diarrhea rule out C. difficile 18. CVA Recommendations: Continue with aspirin and Brilinta given her multiple stents Antibiotic management as per ID recommendation HD as per renal Vent support respiratory care as per internal medicine and pulmonary consultants. Increase Coreg as tolerated/needed Monitor renal function. f/u renal consult rec regarding hemodialysis PPI . Transfusion prn given her severe anemia and CO/ VF allow for permissive HTN. More than 32 minutes of critical care time was for management treatment is critically patient excluding any procedures Thank you for his referral. We will continue to follow along with you LOIS JOHNSON MD [facility] LOIS JOHNSON MD Aug 17, 2018 07:55
[2018-08-17] MEDS: ALBUTEROL HFA 8 GM INHALER INH SCH ×3 (08:45→20:38)
--- NOTE | 2018-08-17 08:48 | PN ---
DATE: 08/17/2018 SUBJECTIVE: The patient remains critically ill. The patient is on full ventilator support. The pat ient had minimal neurologic change, does not respond to commands. The patient has been receiving kenrick ly dialysis for solute clearance, volume removal. No other events noted. OBJECTIVE: VITAL SIGNS: Blood pressure is 163/104, respirations 22, pulse 107, temperature 99.9. HEENT: Head is normocephalic. NECK: Supple. HEART: Regular rate. LUNGS: Show diminished breath sounds at the base. ABDOMEN: Soft, obese, nontender to palpation without rebound or guarding. EXTREMITIES: Negative for clubbing, cyanosis. Positive edema. DERMATOLOGIC: No rashes. MUSCULOSKELETAL: No joint effusions. NEUROLOGIC: No change in exam. MEDICATIONS: The patient's medications have been reviewed. LABORATORY DATA: Has been reviewed. IMAGING STUDIES: Have been reviewed. Chest x-ray shows findings of increased infiltrates, possible edema. MRI shows evidence of acute infarcts in bilateral frontoparietal subcortical white matter and small old products. ASSESSMENT AND PLAN: 1. Anuric acute kidney injury with previously normal baseline creatinine. Etiology of acute kidney injury is secondary to acute tubular necrosis due to shock, contrast-associated nephropathy, sepsis. The patient is currently on daily dialysis for solute clearance and volume removal. Will anticipate dialysis again today. We will dialyze for 3 hours 3k bath, calcium 2.5. 2. Metabolic acidosis, improved. Continue to monitor. 3. Anemia. Monitor hemoglobin and hematocrit levels. 4. Mineral bone disorder, monitor calcium and phosphatase levels. 5. Volume overload. Patient has noted lower extremity edema, pulmonary congestion. Continue ultraf iltration dialysis. 6. Sepsis, status post shock secondary to pneumonia, bacteremia. Patient is completing antibiotic c ourse. 7. Ventilatory dependent respiratory failure. Vent settings and ABG was reviewed. Continue to [place]. 8. Cardiac arrest/ST elevated myocardial infarction. The patient is status post cardiac catheteriza tion with multiple stent placements. Continue medical management. Follow up with cardiology. 9. Acute encephalopathy. Etiology is secondary to anoxic injury and acute cerebrovascular accident. The patient's MRI was reviewed. Continue to monitor. Follow up with urology. 10. Gastrointestinal and deep venous thrombosis prophylaxis. Dictated By: BHUMI JOSEPH/ALLI Conf#: [id number] DID#: [id number] CC: DANIAL TUCKER MD;*[facility] [place]*
[2018-08-17] MEDS: DOCUSATE SODIUM 100 MG CAP PO SCH ×2 (09:00→20:14)
[2018-08-17] MEDS: ACCU-CHEK XX SCH ×2 (10:48→20:46)
[2018-08-17] MEDS: CIPROFLOXACIN HCL OTIC DROP 0.25 ML LEFT EAR SCH ×2 (10:48→20:14)
--- NOTE | 2018-08-17 11:40 | CONS ---
Assessment/Plan Assessment/Plan Hospital Course 38 yo F w/ reported Hx of HTN and DM2 who is admitted to the [facility] ICU s/p a vfib cardiac arrest. She is now s/p cardiac catheterization w/ 2 coronary stents. now s/p targeted temperature therapy. Neurology is consulted given persistent encephalopathy...which is likely multifactorial -- toxic-metabolic, medications, hypoxic-ischemic MRI brain is notable for multiple bihemispheric infarcts... likely of cardioembolic origin in the context of her recent arrest. EEG is without epileptiform activity CUS is unrevealing. Ammonia, RPR level wnl. ESR >130 Echo on 08/05 in unrevealing. P: Await hypercoag panel; defer CTA for now given poor renal function Continue ASA/Lipitor for secondary stroke prevention Continued medical management per primary Will follow clinically Consultation Date/Type/Reason Admit Date/Time Aug 04, 2018 at 23:10 Type of Consult Neurology Requesting Provider: HARPAL AGGARWAL MD Date/Time of Note DATE: 08/17/18 TIME: 11:39 24 HR Interval Summary Free Text/Dictation Continues critical care. Pt remains off sedation. Exam Vital Signs Vitals Vital Signs Date Temp Pulse Resp B/P (MAP) Pulse Ox O2 O2 Flow FiO2 Time Delivery Rate 08/17/18 104 24 155/96 94 Mechanical 10:00 (115) Ventilator 08/17/18 98.8 08:00 08/17/18 40 04:55 Intake and Output 08/16/18 08/16/18 08/17/18 1515:00 23:00 07:00 IntakeIntake Total 345.0 ml 520 ml 530 ml OutputOutput Total 2300 ml 5 ml BalanceBalance 345.0 ml -1780 ml 525 ml Exam PE: Gen Appearance: No Apparent Distress HEENT: Intubated Cardiovascular: Regular rate Abdomen: Soft Extremities: Dry NE: The patient was lethargic and nonverbal. Able to open her eyes to loud stimuli. Cranial nerve examination was limited by mental status. Pupils were equal and reactive to light. There was no afferent pupillary defect. Funduscopic examination was limited. Face was grossly symmetric, w/ present corneal and cough reflexes. Tone was normal. Muscle bulk was normal. I did not see fasciculations. The patient withdrew to noxious stimulation in her LLE. Coordination and gait testing was limited by mental status. Arm and leg reflexes were within normal limits and symmetric. Alvarez's sign was absent. Plantar responses were flexor. KAYCEE ESCOBEDO NP Aug 17, 2018 11:40 RANDY GARCIA Aug 18, 2018 06:39
--- NOTE | 2018-08-17 12:09 | CONS ---
Consult Date/Type/Reason Admit Date/Time Aug 04, 2018 at 23:10 Initial Consult Date 08/05/18 Type of Consult Pulmonary Requesting Provider: HARPAL AGGARWAL MD Date/Time of Note DATE: 08/17/18 TIME: 12:07 Subjective Patient remains on mechanical ventilation. Opens eyes but not following commands. Currently hemodynamically stable. MRI findings noted. Objective Vital Signs Date Temp Pulse Resp B/P (MAP) Pulse Ox O2 O2 Flow FiO2 Time Delivery Rate 08/17/18 104 24 155/96 94 Mechanical 10:00 (115) Ventilator 08/17/18 98.8 08:00 08/17/18 40 04:55 Intake and Output 08/16/18 08/16/18 08/17/18 1515:00 23:00 07:00 IntakeIntake Total 345.0 ml 520 ml 530 ml OutputOutput Total 2300 ml 5 ml BalanceBalance 345.0 ml -1780 ml 525 ml Exam GENERAL: Well-nourished well-developed lady orally intubated on mechanical ventilation VITAL SIGNS: per chart NECK: Supple. No JVD or lymphadenopathy. CARDIAC EXAM: S1, S2. No added sounds or murmurs. CHEST: clear bilaterally, No added sounds, rales or wheezes ABDOMEN: Soft, nontender. No guarding or rebound. EXTREMITIES: No cyanosis, clubbing or edema. NEUROLOGIC: Unable to assess Vent Setting Ventilator Support Mode: AC Fraction of Inspired Oxygen pe: 40 Positive End Expiratory Pressu: 5.0 Results/Medications Result Diagram: 08/17/18 0445 08/17/18 0445 Results 24 hrs Laboratory Tests Test 08/16/18 16:46 08/16/18 20:54 08/17/18 04:45 08/17/18 10:47 Erythrocyte > 130 H Sedimentation Rate Bedside Glucose 114 132 White Blood Count 12.5 H Red Blood Count 3.45 L Hemoglobin 9.5 L Hematocrit 29.5 L Mean Corpuscular 85.5 Volume Mean Corpuscular 27.5 L Hemoglobin Mean Corpuscular 32.2 Hemoglobin Concent Red Cell 16.5 H Distribution Width Platelet Count 174 # Mean Platelet Volume 13.5 H Immature 2.700 H Granulocytes % Neutrophils % 78.0 H Lymphocytes % 8.7 L Monocytes % 8.4 Eosinophils % 1.8 Basophils % 0.4 Nucleated Red Blood 0.0 Cells % Immature 0.340 H Granulocytes # Neutrophils # 9.8 H Lymphocytes # 1.1 Monocytes # 1.1 H Eosinophils # 0.2 Basophils # 0.1 Nucleated Red Blood 0.0 Cells # Sodium Level 139 Potassium Level 4.0 Chloride Level 98 Carbon Dioxide Level 30 Anion Gap 11 Blood Urea Nitrogen 41 H Creatinine 3.62 H Est Glomerular 14 L Filtrat Rate mL/min Glucose Level 123 Calcium Level 8.7 Phosphorus Level 2.6 Magnesium Level 2.3 Medications Current Medications Norepinephrine 250 ml @ 1.875 mls/ hr TITRATE IV Last administered on 08/10/18 00:41; Admin Dose 5.625 MLS/HR; Start 08/04/18 at 23:15 Ticagrelor (Brilinta) 90 mg BID PO Last administered on 08/16/18 20:46; Admin Dose 90 MG; Start 08/05/18 at 09:00 Morphine Sulfate (morphine) 1 mg Q1H PRN IV PAIN Last administered on 08/05/18 00:55; Admin Dose 1 MG; Start 08/04/18 at 23:30 Docusate Sodium (Colace) 100 mg BID PO Last administered on 08/15/18 20:08; Admin Dose 100 MG; Start 08/05/18 at 09:00 Atorvastatin Calcium (Lipitor) 80 mg DAILY@21 PO Last administered on 08/16/18at 20:39; Admin Dose 80 MG; Start 08/05/18 at 21:00 Nitroglycerin/ Dextrose 250 ml @ 1.5 mls/hr TITRATE IV Last administered on 08/05/18at 14:22; Admin Dose 72 MLS/HR; Start 08/05/18 at 01:00 Miscellaneous Information 1 ea NOTE XX ; Start 08/05/18 at 09:00 Acetaminophen (Tylenol Supp) 650 mg Q4H PRN [place] TEMP > 37C Last administered on 08/09/18at 04:37; Admin Dose 650 MG; Start 08/05/18 at 11:00 Acetaminophen (Tylenol Liquid) 650 mg Q4H PRN PO TEMP > 37C Last administered on 08/11/18at 11:55; Admin Dose 650 MG; Start 08/05/18 at 11:00 Meperidine HCl (Demerol) 25 mg Q4H PRN IV POST OPERATIVE SHIVERING Last administered on 08/05/18 16:31; Admin Dose 25 MG; Start 08/05/18 at 11:00 Eye Lubricant (Akwa Oint) 1 applic Q6 BOTH EYES Last administered on 08/17/18 05:21; Admin Dose 1 APPLIC; Start 08/05/18 at 12:00 Eye Lubricant (Artificial Tears Oph) 2 drop Q6 BOTH EYES Last administered on 05:21; Admin Dose 2 DROP; Start 08/05/18 at 12:00 Insulin Human Regular 100 unit/ Sodium Chloride 100 ml @ 0 mls/hr PER PROTOCOL IV ; Start 08/05/18 at 12:00 Miscellaneous Information (* Miscellaneous Pharmacy Order) Treatment of Hypoglycemia: 1.BG 51... Per protocol XX ; Start 08/05/18 at 12:00 Dextrose (D50w Syringe) 25 ml Q15M PRN IV .DECREASED GLUCOSE; Start 08/05/18 at 12:00 Dextrose (D50w Syringe) 50 ml Q15M PRN IV .DECREASED GLUCOSE; Start 08/05/18 at 12:00 Fentanyl 100 ml @ 2.5 mls/hr TITRATE IV Last administered on 08/16/18 03:54; Admin Dose 7.5 MLS/HR; Start 08/05/18 at 12:00 Meperidine HCl (Demerol) 12.5 mg Q2H PRN IV POST OPERATIVE SHIVERING; Start 08/05/18 at 17:00 Aspirin (Aspirin) 81 mg DAILY NGT Last administered on 08/16/18 08:10; Admin Dose 81 MG; Start 08/06/18 at 09:00 Diagnostic Test (Pha) (Accu-Chek) 1 ea Q12 XX Last administered on 08/17/18 10:48; Admin Dose 1 EA; Start 08/06/18 at 21:00 Multivitamins (Multivitamin) 30 ml DAILY NGT Last administered on 08/16/18 08:10; Admin Dose 30 ML; Start 08/09/18 at 09:00 Zinc Sulfate (Zinc Sulfate) 220 mg DAILY NGT Last administered on 08/16/18 08:10; Admin Dose 220 MG; Start 08/09/18 at 09:00 Folic Acid (Folic Acid) 1 mg DAILY NGT Last administered on 08/16/18 08:10; Admin Dose 1 MG; Start 08/09/18 at 09:00 Ascorbic Acid (Vitamin C) 500 mg DAILY NGT Last administered on 08/16/18 08:10; Admin Dose 500 MG; Start 08/09/18 at 09:00 Albuterol (Ventolin Hfa) 4 puff Q6HWA RESP THERAPY INH Last administered on 08/17/18 08:45; Admin Dose 4 PUFF; Start 08/09/18 at 14:00 Ipratropium [place] (Atrovent Hfa) 4 puff Q6H RESP THERAPY INH Last administered on 08/17/18 08:45; Admin Dose 4 PUFF; Start 08/09/18 at 14:00 Piperacillin Sod/ Tazobactam Sod 50 ml @ 100 mls/hr Q8 IVPB Last administered on 08/17/18 05:21; Admin Dose 100 MLS/HR; Start 08/10/18 at 14:00 IV Flush (NS 10 ml) 10 ml PRN PRN IV IV PROTOCOL; Start 08/11/18 at 16:30 Lansoprazole (Prevacid) 30 mg 0600,1800 PEG Last administered on 08/17/18 05:21; Admin Dose 30 MG; Start 08/11/18 at 18:28 Heparin Sodium (Porcine) (Heparin (1000 Units/ml)) 3,000 unit PRN PRN CATHETER Dialysis Last administered on 08/16/18 20:33; Admin Dose 3,000 UNIT; Start 08/12/18 at 14:30 Ciprofloxacin HCl (Ciprofloxacin HCl Otic) 5 drop BID LEFT EAR Last administered on 08/17/18 10:48; Admin Dose 5 DROP; Start 08/14/18 at 10:00; Stop 08/20/18 at 21:01 Labetalol HCl (Labetalol) 10 mg Q4H PRN IV ELEVATED SYSTOLIC BP > 180 Last administered on 08/16/18 05:14; Admin Dose 10 MG; Start 08/14/18 at 19:00 Midazolam HCl 50 ml @ 1 mls/hr TITRATE IV Last administered on 08/16/18 03:51; Admin Dose 5 MLS/HR; Start 08/15/18 at 11:00 Hydralazine HCl (Apresoline) 20 mg Q2 PRN IV ELEVATED SYSTOLIC BP Last administered on 3/29/19at 06:36; Admin Dose 20 MG; Start 08/16/18 at 08:00 Metronidazole 100 ml @ 100 mls/hr Q8 IVPB Last administered on 08/17/18at 05:21; Admin Dose 100 MLS/HR; Start 08/16/18 at 22:00 Carvedilol (Coreg) 12.5 mg Q6H PO Last administered on 08/17/18at 05:24; Admin Dose 12.5 MG; Start 08/17/18 at 01:00 Assessment/Plan Hospital Course (Demo Recall) IMP: 1. Ventricular Fibrillation Arrest--s/p ROSC 2/2 STEMI s/p PCI status post hypothermia protocol. Multivessel coronary artery disease status post stent placement x3 2. STEMI, Status post stent x3 placement. 3. Multiple infarcts noted. 4. Hypoxemic respiratory failure/ARDS slowly improving. 5. HUSEYIN--likely ATN continues hemodialysis 6. Ischemic hepatopathy--2/2 arrest 7. Metabolic acidosis--2/2 arrest 8. Anemia 9 Thrombocytopenia RECS: 1. Continue mechanical ventilation, CPAP trial if more alert this afternoon 2. Decrease FiO2 as tolerated low tidal volume strategy if needed 3. Continue tube feeding 4. May require tracheostomy and PEG tube placement if no significant improvement neurologically 5. Continue Abx 6. Pulmonary toilet 7. Hemodialysis per nephrology Critical care time 40 minutes. Family conference regarding plan of care CHINO ANDERSON MD, [facility] Aug 17, 2018 12:09
--- NOTE | 2018-08-17 13:19 | PN ---
Date/Time of Note Date/Time of Note DATE: 08/17/18 TIME: 13:15 Objective Vitals Vital Signs Date Temp Pulse Resp B/P (MAP) Pulse Ox O2 O2 Flow FiO2 Time Delivery Rate 08/17/18 98.6 109 30 152/106 90 Mechanical 12:00 (121) Ventilator 08/17/18 40 04:55 Intake and Output 08/16/18 08/16/18 08/17/18 1515:00 23:00 07:00 IntakeIntake Total 345.0 ml 520 ml 530 ml OutputOutput Total 2300 ml 5 ml BalanceBalance 345.0 ml -1780 ml 525 ml Results Result Diagram: 08/17/18 0445 08/17/18 0445 Medications Medications Current Medications Norepinephrine 250 ml @ 1.875 mls/ hr TITRATE IV Last administered on at 00:41; Admin Dose 5.625 MLS/HR; Start 08/04/18 at 23:15 Ticagrelor (Brilinta) 90 mg BID PO Last administered on 08/16/18at 20:46; Admin Dose 90 MG; Start 08/05/18 at 09:00 Morphine Sulfate (morphine) 1 mg Q1H PRN IV PAIN Last administered on 08/05/18at 00:55; Admin Dose 1 MG; Start 08/04/18 at 23:30 Docusate Sodium (Colace) 100 mg BID PO Last administered on 08/15/18at 20:08; Admin Dose 100 MG; Start 08/05/18 at 09:00 Atorvastatin Calcium (Lipitor) 80 mg DAILY@21 PO Last administered on 08/16/18at 20:39; Admin Dose 80 MG; Start 08/05/18 at 21:00 Nitroglycerin/ Dextrose 250 ml @ 1.5 mls/hr TITRATE IV Last administered on 08/05/18at 14:22; Admin Dose 72 MLS/HR; Start 08/05/18 at 01:00 Miscellaneous Information 1 ea NOTE XX ; Start 08/05/18 at 09:00 Acetaminophen (Tylenol Supp) [address] TEMP > 37C Last administered on 08/09/18at 04:37; Admin Dose 650 MG; Start 08/05/18 at 11:00 Acetaminophen (Tylenol Liquid) 650 mg Q4H PRN PO TEMP > 37C Last administered on 08/11/18 11:55; Admin Dose 650 MG; Start 08/05/18 at 11:00 Meperidine HCl (Demerol) 25 mg Q4H PRN IV POST OPERATIVE SHIVERING Last administered on 08/05/18 16:31; Admin Dose 25 MG; Start 08/05/18 at 11:00 Eye Lubricant (Akwa Oint) 1 applic Q6 BOTH EYES Last administered on 08/17/18 05:21; Admin Dose 1 APPLIC; Start 08/05/18 at 12:00 Eye Lubricant (Artificial Tears Oph) 2 drop Q6 BOTH EYES Last administered on 08/17/18 05:21; Admin Dose 2 DROP; Start 08/05/18 at 12:00 Insulin Human Regular 100 unit/ Sodium Chloride 100 ml @ 0 mls/hr PER PROTOCOL IV ; Start 08/05/18 at 12:00 Miscellaneous Information (* Miscellaneous Pharmacy Order) Treatment of Hypoglycemia: 1.BG 51... Per protocol XX ; Start 08/05/18 at 12:00 Dextrose (D50w Syringe) 25 ml Q15M PRN IV .DECREASED GLUCOSE; Start 08/05/18 at 12:00 Dextrose (D50w Syringe) 50 ml Q15M PRN IV .DECREASED GLUCOSE; Start 08/05/18 at 12:00 Fentanyl 100 ml @ 2.5 mls/hr TITRATE IV Last administered on 08/16/18 03:54; Admin Dose 7.5 MLS/HR; Start 08/05/18 at 12:00 Meperidine HCl (Demerol) 12.5 mg Q2H PRN IV POST OPERATIVE SHIVERING; Start 08/05/18 at 17:00 Aspirin (Aspirin) 81 mg DAILY NGT Last administered on 08/16/18 08:10; Admin Dose 81 MG; Start 08/06/18 at 09:00 Diagnostic Test (Pha) (Accu-Chek) 1 ea Q12 XX Last administered on 08/17/18 10:48; Admin Dose 1 EA; Start 08/06/18 at 21:00 Multivitamins (Multivitamin) 30 ml DAILY NGT Last administered on 08/16/18 08:10; Admin Dose 30 ML; Start 08/09/18 at 09:00 Zinc Sulfate (Zinc Sulfate) 220 mg DAILY NGT Last administered on 08/16/18 08:10; Admin Dose 220 MG; Start 08/09/18 at 09:00 Folic Acid (Folic Acid) 1 mg DAILY NGT Last administered on 08/16/18 08:10; Admin Dose 1 MG; Start 08/09/18 at 09:00 Ascorbic Acid (Vitamin C) 500 mg DAILY NGT Last administered on 08/16/18 08 :10; Admin Dose 500 MG; Start 08/09/18 at 09:00 Albuterol (Ventolin Hfa) 4 puff Q6HWA RESP THERAPY INH Last administered on 08/17/18 08:45; Admin Dose 4 PUFF; Start 08/09/18 at 14:00 Ipratropium [place] (Atrovent Hfa) 4 puff Q6H RESP THERAPY INH Last administered on 08/17/18 08:45; Admin Dose 4 PUFF; Start 08/09/18 at 14:00 Piperacillin Sod/ Tazobactam Sod 50 ml @ 100 mls/hr Q8 IVPB Last administered on 08/17/18 05:21; Admin Dose 100 MLS/HR; Start 08/10/18 at 14:00 IV Flush (NS 10 ml) 10 ml PRN PRN IV IV PROTOCOL; Start 08/11/18 at 16:30 Lansoprazole (Prevacid) 30 mg 0600,1800 PEG Last administered on 08/17/18 05:21; Admin Dose 30 MG; Start 08/11/18 at 18:28 Heparin Sodium (Porcine) (Heparin (1000 Units/ml)) 3,000 unit PRN PRN CATHETER Dialysis Last administered on 08/16/18 20:33; Admin Dose 3,000 UNIT; Start 08/12/18 at 14:30 Ciprofloxacin HCl (Ciprofloxacin HCl Otic) 5 drop BID LEFT EAR Last administered on 08/17/18 10:48; Admin Dose 5 DROP; Start 08/14/18 at 10:00; Stop 08/20/18 at 21:01 Labetalol HCl (Labetalol) 10 mg Q4H PRN IV ELEVATED SYSTOLIC BP > 180 Last adm inistered on 08/16/18 05:14; Admin Dose 10 MG; Start 08/14/18 at 19:00 Midazolam HCl 50 ml @ 1 mls/hr TITRATE IV Last administered on 08/16/18at 03:51; Admin Dose 5 MLS/HR; Start 08/15/18 at 11:00 Hydralazine HCl (Apresoline) 20 mg Q2 PRN IV ELEVATED SYSTOLIC BP Last administered on 08/17/18at 06:36; Admin Dose 20 MG; Start 08/16/18 at 08:00 Metronidazole 100 ml @ 100 mls/hr Q8 IVPB Last administered on 08/17/18at 05:21; Admin Dose 100 MLS/HR; Start 08/16/18 at 22:00 Carvedilol (Coreg) 12.5 mg Q6H PO Last administered on 08/17/18at 05:24; Admin Dose 12.5 MG; Start 08/17/18 at 01:00 VTE Prophylaxis Risk score (from Ns)>0 risk: 3 [place] [facility] [place] Lines/Catheters IV Catheter Type: Aguilar in Place: No Assessment/Plan Hospital Course Subjective Patient nose bleeding subsided. Sedation was turned off very recently. Objective Physical exam General: Patient is laying in bed intubated and sedated Mentation: Patient is not alert and oriented 4, Head: Normocephalic atraumatic Eyes: EOMI, pupils reactive to light Ears: Left auditory canal has dried up blood, unable to properly visualize tympanic membrane, right auditory canal clear Neck: Supple, nontender, midline Respiratory: Coarse to auscultation bilaterally Cardiovascular: regular rate, no obvious murmurs Gastrointestinal: non-tender to palpation, bowel sounds heard. Neurological: Unable to assess secondary to sedation Skin: No new skin lesions Assessment/Plan 1. Acute toxic/metabolic encephalopathy - Neurology recs appreciated and CT head noted -MRI noted bilateral CVA -At this time it appears that the initial incident led to anoxic encephalopathy due to unknown downtime during cardiac arrest before she came into the hospital. - monitor for improvement in neurological status, very poor prognosis at this time, patient only has minimal eyelid waking up per nursing Bilateral CVA -Found on MRI, likely thromboembolic secondary to cardiopulmonary arrest per neurology -If patient's family decides to continue with care and PEG and trach, will likely need to assess need of a chronic anticoagulation, however due to patient's recent copious nosebleed while on aspirin and Brilinta will need to slowly introduce. We will need to assess if PEG and trach will be done first before we start any anticoagulation as procedures will need to have anticoagulation held. 2. Septic shock secondary to PNA and bacteremia - WBC to be monitored closely - Blood cultures and sputum culture results noted. Will repeat blood cultures as needed - ID consulted for antibiotic recommendations. - Continue current antibiotics and pressor support with goal MAP> 65 3. Bilateral Pneumonia - CXR noted - Pulm on board and appreciate recommendations. Will continue current management and monitor for improvement in respiratory status - continue bronchodilators -ID on board Left auditory canal bleeding -Very mild, only dried blood at this time, however monitor closely as patient is on antiplatelet therapy due to coronary artery disease -ok per ID to start cipro eardrops Sinus infection -Continue IV antibiotics and eardrops, -ID recommended she is appreciated Anemia -Mild drop in hemoglobin, will need to monitor closely as cardiology as previously mentioned patient is on dual antiplatelet therapy, if continues to drop, cardiology may consider switching Brilinta to Plavix. -Improved significantly -ENT physician consulted, Dr. Martinez saw patient in no acute intervention for now as nose bleeding has significantly subsided. 4. CAD s/p PCI x2 - Cardiology on board and appreciate recommendations. Stressed importance of continuing DAPT given recent stent placements and high risk of restenosis - s/p emergent Cath 08/05 with successful PTCA and stenting of proximal and mid LAD, PTCA of the large first diagonal and thrombectomy of the LAD - Repeat PCI on 08/07 performed with stenting to LCx - plans for stenting of RCA prior to discharge if possible - ECHO results noted 5. Acute hypoxic respiratory failure - exacerbated by #1 - Pulm on board for vent management. appreciate consultation 6. HUSEYIN-now on dialysis - Nephrology on board and appreciate recommendations. -Now on HD - secondary to septic shock, ATN vs prerenal vs contrast induced nephropathy - will avoid nephrotoxic agents 7. Diabetes - A1c noted 8. Transaminitis-monitor closely - most likely secondary to hypoperfusion - continue monitoring LFTs - RUQ US noted 9. V-fib cardiac arrest secondary to STEMI - Completed hypothermia protocol - unknown how long patient was down for in the field 10. Disposition - Continue close monitoring in ICU while requiring vent management. -Unfortunately there is not significant improvement, poor prognosis -Palliative care physician to hold family meeting tomorrow to determine if patient's family wishes for PEG and trach.. >30 minutes of critical care time spent with patient and family at bedside HARPAL PEDROZA Aug 17, 2018 13:19
[2018-08-17] MEDS: HEPARIN 1000 UNITS/ML 10 ML INJ CATHETER PRN (13:36)
--- NOTE | 2018-08-17 14:01 | CONS ---
Assessment/Plan Assessment/Plan Assessment/Plan (Daily) Assessment: Dysphagia Status post cardiac arrest Respiratory failure Sepsis -on levophed Abnormal MRI of the brain Status post cardiac catheterization with stents Acute kidney injuryon hemodialysis Obesity Hypertension Plan: Family meeting tomorrow Possible PEG placement on Monday Patient seen in collaboration with Consultation Date/Type/Reason Admit Date/Time Aug 04, 2018 at 23:10 Date of Consultation: Aug 17, 2018 Type of Consult GI Reason for Consultation Dysphagia/PEG placement Date/Time of Note DATE: 08/17/18 TIME: 13:54 Hx of Present Illness This is a 38-year-old female with a recent history of cardiac arrest status post cardiac stenting and respiratory failure who was consulted by GI for possible PEG placement. Prior medical history includes hypertension and obesity. During the course of hospitalization patient suffered acute kidney injury and was started on dialysis. MRI of the brain shows multiple infarcts. Patient is cur rently on levophed and being fed via OG tube at 40 cc/h. Patient status post change to DNR today. Family meeting is planned for tomorrow with Dr. Mason to discuss goals of care. Currently there is no vomiting, hematochezia, hematemesis, abdominal pain or fever. We will follow-up over the weekend for possible PEG placement on Monday. Gastrointestinal: no complaints (See HPI) Past Medical History Medical History: coronary artery disease, diabetes, hypertension Medications Current Medications Norepinephrine 250 ml @ 1.875 mls/ hr TITRATE IV Last administered on 08/10/18at 00:41; Admin Dose 5.625 MLS/HR; Start 08/04/18 at 23:15 Ticagrelor (Brilinta) 90 mg BID PO Last administered on 08/16/18at 20:46; Admin Dose 90 MG; Start 08/05/18 at 09:00 Morphine Sulfate (morphine) 1 mg Q1H PRN IV PAIN Last administered on 08/05/18 00:55; Admin Dose 1 MG; Start 08/04/18 at 23:30 Docusate Sodium (Colace) 100 mg BID PO Last administered on 08/15/18at 20:08; Admin Dose 100 MG; Start 08/05/18 at 09:00 Atorvastatin Calcium (Lipitor) 80 mg DAILY@21 PO Last administered on 08/16/18at 20:39; Admin Dose 80 MG; Start 08/05/18 at 21:00 Nitroglycerin/ Dextrose 250 ml @ 1.5 mls/hr TITRATE IV Last administered on 08/05/18at 14:22; Admin Dose 72 MLS/HR; Start 08/05/18 at 01:00 Miscellaneous Information 1 ea NOTE XX ; Start 08/05/18 at 09:00 Acetaminophen (Tylenol Supp) 650 mg Q4H PRN [place] TEMP > 37C Last administered on 08/09/18at 04:37; Admin Dose 650 MG; Start 08/05/18 at 11:00 Acetaminophen (Tylenol Liquid) 650 mg Q4H PRN PO TEMP > 37C Last administered on 08/11/18at 11:55; Admin Dose 650 MG; Start 08/05/18 at 11:00 Meperidine HCl (Demerol) 25 mg Q4H PRN IV POST OPERATIVE SHIVERING Last admi nistered on 08/05/18at 16:31; Admin Dose 25 MG; Start 08/05/18 at 11:00 Eye Lubricant (Akwa Oint) 1 applic Q6 BOTH EYES Last administered on 08/17/18at 05:21; Admin Dose 1 APPLIC; Start 08/05/18 at 12:00 Eye Lubricant (Artificial Tears Oph) 2 drop Q6 BOTH EYES Last administered on 08/17/18 05:21; Admin Dose 2 DROP; Start 08/05/18 at 12:00 Insulin Human Regular 100 unit/ Sodium Chloride 100 ml @ 0 mls/hr PER PROTOCOL IV ; Start 08/05/18 at 12:00 Miscellaneous Information (* Miscellaneous Pharmacy Order) Treatment of Hypoglycemia: 1.BG 51... Per protocol XX ; Start 08/05/18 at 12:00 Dextrose (D50w Syringe) 25 ml Q15M PRN IV .DECREASED GLUCOSE; Start 08/05/18 at 12:00 Dextrose (D50w Syringe) 50 ml Q15M PRN IV .DECREASED GLUCOSE; Start 08/05/18 at 12:00 Fentanyl 100 ml @ 2.5 mls/hr TITRATE IV Last administered on 08/16/18at 03:54; Admin Dose 7.5 MLS/HR; Start 08/05/18 at 12:00 Meperidine HCl (Demerol) 12.5 mg Q2H PRN IV POST OPERATIVE SHIVERING; Start 08/05/18 at 17:00 Aspirin (Aspirin) 81 mg DAILY NGT Last administered on 08/16/18 08:10; Admin Dose 81 MG; Start 08/06/18 at 09:00 Diagnostic Test (Pha) (Accu-Chek) 1 ea Q12 XX Last administered on 08/17/18 10:48; Admin Dose 1 EA; Start 08/06/18 at 21:00 Multivitamins (Multivitamin) 30 ml DAILY NGT Last administered on 08/16/18 08:10; Admin Dose 30 ML; Start 08/09/18 at 09:00 Zinc Sulfate (Zinc Sulfate) 220 mg DAILY NGT Last administered on 08/16/18 08:10; Admin Dose 220 MG; Start 08/09/18 at 09:00 Folic Acid (Folic Acid) 1 mg DAILY NGT Last administered on 08/16/18 08:10; Admin Dose 1 MG; Start 08/09/18 at 09:00 Ascorbic Acid (Vitamin C) 500 mg DAILY NGT Last administered on 08/16/18 08:10; Admin Dose 500 MG; Start 08/09/18 at 09:00 Albuterol (Ventolin Hfa) 4 puff Q6HWA RESP THERAPY INH Last administered on 08/17/18 08:45; Admin Dose 4 PUFF; Start 08/09/18 at 14:00 Ipratropium [place] (Atrovent Hfa) 4 puff Q6H RESP THERAPY INH Last administered on 08/17/18 08:45; Admin Dose 4 PUFF; Start 08/09/18 at 14:00 Piperacillin Sod/ Tazobactam Sod 50 ml @ 100 mls/hr Q8 IVPB Last administered on 08/17/18 05:21; Admin Dose 100 MLS/HR; Start 08/10/18 at 14:00 IV Flush (NS 10 ml) 10 ml PRN PRN IV IV PROTOCOL; Start 08/11/18 at 16:30 Lansoprazole (Prevacid) 30 mg 0600,1800 PEG Last administered on 08/17/18 05:21; Admin Dose 30 MG; Start 08/11/18 at 18:28 Heparin Sodium (Porcine) (Heparin (1000 Units/ml)) 3,000 unit PRN PRN CATHETER Dialysis Last administered on 08/17/18 13:36; Admin Dose 3,000 UNIT; Start 08/12/18 at 14:30 Ciprofloxacin HCl (Ciprofloxacin HCl Otic) 5 drop BID LEFT EAR Last adm inistered on 08/17/18at 10:48; Admin Dose 5 DROP; Start 08/14/18 at 10:00; Stop 08/20/18 at 21:01 Labetalol HCl (Labetalol) 10 mg Q4H PRN IV ELEVATED SYSTOLIC BP > 180 Last administered on 08/16/18 05:14; Admin Dose 10 MG; Start 08/14/18 at 19:00 Midazolam HCl 50 ml @ 1 mls/hr TITRATE IV Last administered on 08/16/18 03:51; Admin Dose 5 MLS/HR; Start 08/15/18 at 11:00 Hydralazine HCl (Apresoline) 20 mg Q2 PRN IV ELEVATED SYSTOLIC BP Last administered on 08/17/18 06:36; Admin Dose 20 MG; Start 08/16/18 at 08:00 Metronidazole 100 ml @ 100 mls/hr Q8 IVPB Last administered on 08/17/18 05:21 ; Admin Dose 100 MLS/HR; Start 08/16/18 at 22:00 Carvedilol (Coreg) 12.5 mg Q6H PO Last administered on 08/17/18 05:24; Admin Dose 12.5 MG; Start 08/17/18 at 01:00 Allergies: Coded Allergies: Unknown: Unable to obtain (Unverified , 08/04/18) Past Surgical History Past Surgical Hx: no surgical history, other Social History Alcohol Use: none Smoking Status: Never smoker Drug Use: none Exam/Review of Systems Exam Vitals Vital Signs Date Temp Pulse Resp B/P (MAP) Pulse Ox O2 O2 Flow FiO2 Time Delivery Rate 08/17/18 98.6 109 30 152/106 90 Mechanical 12:00 (121) Ventilator 08/17/18 40 04:55 Intake and Output 08/16/18 08/16/18 08/17/18 1515:00 23:00 07:00 IntakeIntake Total 345.0 ml 520 ml 530 ml OutputOutput Total 2300 ml 5 ml BalanceBalance 345.0 ml -1780 ml 525 ml Exam PHYSICAL EXAMINATION: GENERAL: Well developed, obese, intubated, on the ventilator, in no acute distress SKIN: No lesions, no stigmata chronic liver disease, no evidence of bleeding diathesis LYMPHATIC: No palpable lymphadenopathy. HEAD: Normocephalic, atraumatic, no tenderness. EYES: Pupils equal reactive to light and accommodation, full extraocular movements, sclera clear, non-icteric, no discharge. EARS/NOSE AND THROAT: Ears normal, nose normal, oropharynx normal, oral membranes well hydrated without lesions. OG tube in place with continuous feeding NECK: Supple, no masses, thyroid normal, JVP within normal limits, carotids normal without bruits. CHEST: Inspection within normal limits. CARDIOVASCULAR: Heart: Regular rate and rhythm, no murmurs, gallops or rubs. Peripheral pulses present within normal limits, no cyanosis, clubbing or edemas. No pulsatile abdominal mass RESPIRATORY: Lungs clear to auscultation and percussion, no wheezing, no rubs GASTROINTESTINAL AND LIVER: Abdomen: Soft, non tenderness, non-distended, no hernias, no masses, no organomegaly, no ascites, no guarding, no rebound tenderness, normoactive bowel sounds. Rectal: Deferred. GENITOURINARY: Female genitalia within normal limits. Rectal tube in place EXTREMITIES: No cyanosis, generalized edema. Results Result Diagram: 08/17/18 0445 08/17/18 0445 Results 24hrs Laboratory Tests Test 08/16/18 16:46 08/16/18 20:54 08/17/18 04:45 08/17/18 10:47 Erythrocyte > 130 H Sedimentation Rate Bedside Glucose 114 132 White Blood Count 12.5 H Red Blood Count 3.45 L Hemoglobin 9.5 L Hematocrit 29.5 L Mean Corpuscular 85.5 Volume Mean Corpuscular 27.5 L Hemoglobin Mean Corpuscular 32.2 Hemoglobin Concent Red Cell 16.5 H Distribution Width Platelet Count 174 # Mean Platelet Volume 13.5 H Immature 2.700 H Granulocytes % Neutrophils % 78.0 H Lymphocytes % 8.7 L Monocytes % 8.4 Eosinophils % 1.8 Basophils % 0.4 Nucleated Red Blood 0.0 Cells % Immature 0.340 H Granulocytes # Neutrophils # 9.8 H Lymphocytes # 1.1 Monocytes # 1.1 H Eosinophils # 0.2 Basophils # 0.1 Nucleated Red Blood 0.0 Cells # Sodium Level 139 Potassium Level 4.0 Chloride Level 98 Carbon Dioxide Level 30 Anion Gap 11 Blood Urea Nitrogen 41 H Creatinine 3.62 H Est Glomerular 14 L Filtrat Rate mL/min Glucose Level 123 Calcium Level 8.7 Phosphorus Level 2.6 Magnesium Level 2.3 Medications Medication Current Medications Norepinephrine 250 ml @ 1.875 mls/ hr TITRATE IV Last administered on 08/10/18 00:41; Admin Dose 5.625 MLS/HR; Start 08/04/18 at 23:15 Ticagrelor (Brilinta) 90 mg BID PO Last administered on 08/16/18 20:46; Admin Dose 90 MG; Start 08/05/18 at 09:00 Morphine Sulfate (morphine) 1 mg Q1H PRN IV PAIN Last administered on 08/05/18 00:55; Admin Dose 1 MG; Start 08/04/18 at 23:30 Docusate Sodium (Colace) 100 mg BID PO Last administered on 08/15/18 20:08; Admin Dose 100 MG; Start 08/05/18 at 09:00 Atorvastatin Calcium (Lipitor) 80 mg DAILY@21 PO Last administered on 08/16/18 20:39; Admin Dose 80 MG; Start 08/05/18 at 21:00 Nitroglycerin/ Dextrose 250 ml @ 1.5 mls/hr TITRATE IV Last administered on 08/05/18 14:22; Admin Dose 72 MLS/HR; Start 08/05/18 at 01:00 Miscellaneous Information 1 ea NOTE XX ; Start 08/05/18 at 09:00 Acetaminophen (Tylenol Supp) 650 mg Q4H PRN [place] TEMP > 37C Last administered on 08/09/18 04:37; Admin Dose 650 MG; Start 08/05/18 at 11:00 Acetaminophen (Tylenol Liquid) 650 mg Q4H PRN PO TEMP > 37C Last administered on 08/11/18 11:55; Admin Dose 650 MG; Start 08/05/18 at 11:00 Meperidine HCl (Demerol) 25 mg Q4H PRN IV POST OPERATIVE SHIVERING Last administered on 08/05/18 16:31; Admin Dose 25 MG; Start 08/05/18 at 11:00 Eye Lubricant (Akwa Oint) 1 applic Q6 BOTH EYES Last administered on 3/29/19at 05:21; Admin Dose 1 APPLIC; Start 08/05/18 at 12:00 Eye Lubricant (Artificial Tears Oph) 2 drop Q6 BOTH EYES Last administered on 08/17/18at 05:21; Admin Dose 2 DROP; Start 08/05/18 at 12:00 Insulin Human Regular 100 unit/ Sodium Chloride 100 ml @ 0 mls/hr PER PROTOCOL IV ; Start 08/05/18 at 12:00 Miscellaneous Information (* Miscellaneous Pharmacy Order) Treatment of Hypoglycemia: 1.BG 51... Per protocol XX ; Start 08/05/18 at 12:00 Dextrose (D50w Syringe) 25 ml Q15M PRN IV .DECREASED GLUCOSE; Start 08/05/18 at 12:00 Dextrose (D50w Syringe) 50 ml Q15M PRN IV .DECREASED GLUCOSE; Start 08/05/18 at 12:00 Fentanyl 100 ml @ 2.5 mls/hr TITRATE IV Last administered on 08/16/18at 03:54; Admin Dose 7.5 MLS/HR; Start 08/05/18 at 12:00 Meperidine HCl (Demerol) 12.5 mg Q2H PRN IV POST OPERATIVE SHIVERING; Start 08/05/18 at 17:00 Aspirin (Aspirin) 81 mg DAILY NGT Last administered on 08/16/18 08:10; Admin Dose 81 MG; Start 08/06/18 at 09:00 Diagnostic Test (Pha) (Accu-Chek) 1 ea Q12 XX Last administered on 08/17/18at 10:48; Admin Dose 1 EA; Start 08/06/18 at 21:00 Multivitamins (Multivitamin) 30 ml DAILY NGT Last administered on 08/16/18 08 :10; Admin Dose 30 ML; Start 08/09/18 at 09:00 Zinc Sulfate (Zinc Sulfate) 220 mg DAILY NGT Last administered on 08/16/18 08:10; Admin Dose 220 MG; Start 08/09/18 at 09:00 Folic Acid (Folic Acid) 1 mg DAILY NGT Last administered on 08/16/18 08:10; Admin Dose 1 MG; Start 08/09/18 at 09:00 Ascorbic Acid (Vitamin C) 500 mg DAILY NGT Last administered on 08/16/18 08:10; Admin Dose 500 MG; Start 08/09/18 at 09:00 Albuterol (Ventolin Hfa) 4 puff Q6HWA RESP THERAPY INH Last administered on 08/17/18 08:45; Admin Dose 4 PUFF; Start 08/09/18 at 14:00 Ipratropium [place] (Atrovent Hfa) 4 puff Q6H RESP THERAPY INH Last administered on 08/17/18 08:45; Admin Dose 4 PUFF; Start 08/09/18 at 14:00 Piperacillin Sod/ Tazobactam Sod 50 ml @ 100 mls/hr Q8 IVPB Last administered on 08/17/18 05:21; Admin Dose 100 MLS/HR; Start 08/10/18 at 14:00 IV Flush (NS 10 ml) 10 ml PRN PRN IV IV PROTOCOL; Start 08/11/18 at 16:30 Lansoprazole (Prevacid) 30 mg 0600,1800 PEG Last administered on 08/17/18 05:21; Admin Dose 30 MG; Start 08/11/18 at 18:28 Heparin Sodium (Porcine) (Heparin (1000 Units/ml)) 3,000 unit PRN PRN CATHETER Dialysis Last administered on 08/17/18 13:36; Admin Dose 3,000 UNIT; Start 08/12/18 at 14:30 Ciprofloxacin HCl (Ciprofloxacin HCl Otic) 5 drop BID LEFT EAR Last administ ered on 08/17/18 10:48; Admin Dose 5 DROP; Start 08/14/18 at 10:00; Stop 08/20/18 at 21:01 Labetalol HCl (Labetalol) 10 mg Q4H PRN IV ELEVATED SYSTOLIC BP > 180 Last administered on 08/16/18 05:14; Admin Dose 10 MG; Start 08/14/18 at 19:00 Midazolam HCl 50 ml @ 1 mls/hr TITRATE IV Last administered on 08/16/18 03:51; Admin Dose 5 MLS/HR; Start 08/15/18 at 11:00 Hydralazine HCl (Apresoline) 20 mg Q2 PRN IV ELEVATED SYSTOLIC BP Last administered on 08/17/18 06:36; Admin Dose 20 MG; Start 08/16/18 at 08:00 Metronidazole 100 ml @ 100 mls/hr Q8 IVPB Last administered on 08/17/18 05:21; Admin Dose 100 MLS/HR; Start 08/16/18 at 22:00 Carvedilol (Coreg) 12.5 mg Q6H PO Last administered on 08/17/18at 05:24; Admin Dose 12.5 MG; Start 08/17/18 at 01:00 CRISTELA CAST NP Aug 17, 2018 14:01
--- NOTE | 2018-08-17 14:35 | CONS ---
Assessment/Plan Assessment/Plan Hospital Course (Demo Recall) No changes patient remains intubated, afebrile T-max 100.6 WBC 12.5 platelets 174 neutrophils 78 BUN 41 creatinine 3.62 Antimicrobials: Zosyn Flagyl Microbiology: Urine culture on admission grew E. coli and Proteus, blood cultures growing oxacillin sensitive staph aureus endotracheal aspirate also growing oxacillin sensitive staph aureus ear drainage preliminary growing staph aureus, repeat blood cultures 2 days ago negative Indwelling: Endotracheal tube, orogastric tube, right femoral Devan, right upper extremity PICC line Physical examination: Obese well-developed middle-aged woman who is intubated in no distress. Head atraumatic normocephalic neck is supple chest rise symmetr ical breath sounds diminished bases. Heart: S1-S2. Abdomen distended. Bowel sounds hypoactive. Extremities cyanotic Assessment: 1. Severe sepsis 2. Oxacillin sensitive staph aureus bacteremia 2 to #3 3. Oxacillin sensitive staph aureus pneumonia 4. Polymicrobial UTI 5. ST elevation MT, status post stent 6. Status post V. fib arrest 7. Acute renal failure, started on hemodialysis 8. 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 Anemia and thrombocytopenia 10. Acute sinusitis and bilateral mastoiditis 11. Morbid obesity 12. Diarrhea, r/o C dif Plan: Remains unchanged, continue antibiotics, f/u neurology recommendations. Prognosis poor. Pt is DNR status Consultation Date/Type/Reason Admit Date/Time Aug 04, 2018 at 23:10 Initial Consult Date 08/12/18 Type of Consult id Requesting Provider: HARPAL AGGARWAL MD Date/Time of Note DATE: 08/17/18 TIME: 14:34 Exam/Review of Systems Exam Vitals Vital Signs Date Temp Pulse Resp B/P (MAP) Pulse Ox O2 O2 Flow FiO2 Time Delivery Rate 08/17/18 98.6 109 30 152/106 90 Mechanical 12:00 (121) Ventilator 08/17/18 40 08:00 Intake and Output 08/16/18 08/16/18 08/17/18 1515:00 23:00 07:00 IntakeIntake Total 345.0 ml 520 ml 530 ml OutputOutput Total 2300 ml 5 ml BalanceBalance 345.0 ml -1780 ml 525 ml Results Result Diagram: 08/17/18 0445 08/17/18 0445 Results 24hrs Laboratory Tests Test 08/16/18 16:46 08/16/18 20:54 08/17/18 04:45 08/17/18 10:47 Erythrocyte > 130 H Sedimentation Rate Bedside Glucose 114 132 White Blood Count 12.5 H Red Blood Count 3.45 L Hemoglobin 9.5 L Hematocrit 29.5 L Mean Corpuscular 85.5 Volume Mean Corpuscular 27.5 L Hemoglobin Mean Corpuscular 32.2 Hemoglobin Concent Red Cell 16.5 H Distribution Width Platelet Count 174 # Mean Platelet Volume 13.5 H Immature 2.700 H Granulocytes % Neutrophils % 78.0 H Lymphocytes % 8.7 L Monocytes % 8.4 Eosinophils % 1.8 Basophils % 0.4 Nucleated Red Blood 0.0 Cells % Immature 0.340 H Granulocytes # Neutrophils # 9.8 H Lymphocytes # 1.1 Monocytes # 1.1 H Eosinophils # 0.2 Basophils # 0.1 Nucleated Red Blood 0.0 Cells # Sodium Level 139 Potassium Level 4.0 Chloride Level 98 Carbon Dioxide Level 30 Anion Gap 11 Blood Urea Nitrogen 41 H Creatinine 3.62 H Est Glomerular 14 L Filtrat Rate mL/min Glucose Level 123 Calcium Level 8.7 Phosphorus Level 2.6 Magnesium Level 2.3 Medications Medication Current Medications Norepinephrine 250 ml @ 1.875 mls/ hr TITRATE IV Last administered on 08/10/18at 00:41; Admin Dose 5.625 MLS/HR; Start 08/04/18 at 23:15 Ticagrelor (Brilinta) 90 mg BID PO Last administered on 08/16/18at 20:46; Admin Dose 90 MG; Start 08/05/18 at 09:00 Morphine Sulfate (morphine) 1 mg Q1H PRN IV PAIN Last administered on 08/05/18at 00:55; Admin Dose 1 MG; Start 08/04/18 at 23:30 Docusate Sodium (Colace) 100 mg BID PO Last administered on 08/15/18at 20:08; Admin Dose 100 MG; Start 08/05/18 at 09:00 Atorvastatin Calcium (Lipitor) 80 mg DAILY@21 PO Last administered on 08/16/18at 20:39; Admin Dose 80 MG; Start 08/05/18 at 21:00 Nitroglycerin/ Dextrose 250 ml @ 1.5 mls/hr TITRATE IV Last administered on 08/05/18 14:22; Admin Dose 72 MLS/HR; Start 08/05/18 at 01:00 Miscellaneous Information 1 ea NOTE XX ; Start 08/05/18 at 09:00 Acetaminophen (Tylenol Supp) 650 mg Q4H PRN MT TEMP > 37C Last administered on 08/09/18 04:37; Admin Dose 650 MG; Start 08/05/18 at 11:00 Acetaminophen (Tylenol Liquid) 650 mg Q4H PRN PO TEMP > 37C Last administered on 08/11/18at 11:55; Admin Dose 650 MG; Start 08/05/18 at 11:00 Meperidine HCl (Demerol) 25 mg Q4H PRN IV POST OPERATIVE SHIVERING Last administered on 08/05/18at 16:31; Admin Dose 25 MG; Start 08/05/18 at 11:00 Eye Lubricant (Akwa Oint) 1 applic Q6 BOTH EYES Last administered on 08/17/18 05:21; Admin Dose 1 APPLIC; Start 08/05/18 at 12:00 Eye Lubricant (Artificial Tears Oph) 2 drop Q6 BOTH EYES Last administered on 08/17/18 05:21; Admin Dose 2 DROP; Start 08/05/18 at 12:00 Insulin Human Regular 100 unit/ Sodium Chloride 100 ml @ 0 mls/hr PER PROTOCOL IV ; Start 08/05/18 at 12:00 Miscellaneous Information (* Miscellaneous Pharmacy Order) Treatment of Hypoglycemia: 1.BG 51... Per protocol XX ; Start 08/05/18 at 12:00 Dextrose (D50w Syringe) 25 ml Q15M PRN IV .DECREASED GLUCOSE; Start 08/05/18 at 12:00 Dextrose (D50w Syringe) 50 ml Q15M PRN IV .DECREASED GLUCOSE; Start 08/05/18 at 12:00 Fentanyl 100 ml @ 2.5 mls/hr TITRATE IV Last administered on 08/16/18at 03:54; Admin Dose 7.5 MLS/HR; Start 08/05/18 at 12:00 Meperidine HCl (Demerol) 12.5 mg Q2H PRN IV POST OPERATIVE SHIVERING; Start 08/05/18 at 17:00 Aspirin (Aspirin) 81 mg DAILY NGT Last administered on 08/16/18 08:10; Admin Dose 81 MG; Start 08/06/18 at 09:00 Diagnostic Test (Pha) (Accu-Chek) 1 ea Q12 XX Last administered on 08/17/18 10:48; Admin Dose 1 EA; Start 08/06/18 at 21:00 Multivitamins (Multivitamin) 30 ml DAILY NGT Last administered on 08/16/18 08:10; Admin Dose 30 ML; Start 08/09/18 at 09:00 Zinc Sulfate (Zinc Sulfate) 220 mg DAILY NGT Last administered on 08/16/18 08:10; Admin Dose 220 MG; Start 08/09/18 at 09:00 Folic Acid (Folic Acid) 1 mg DAILY NGT Last administered on 08/16/18 08:10; Admin Dose 1 MG; Start 08/09/18 at 09:00 Ascorbic Acid (Vitamin C) 500 mg DAILY NGT Last administered on 08/16/18 08:10; Admin Dose 500 MG; Start 08/09/18 at 09:00 Albuterol (Ventolin Hfa) 4 puff Q6HWA RESP THERAPY INH Last administered on 08/17/18 08:45; Admin Dose 4 PUFF; Start 08/09/18 at 14:00 Ipratropium [place] (Atrovent Hfa) 4 puff Q6H RESP THERAPY INH Last administered on 08/17/18 08:45; Admin Dose 4 PUFF; Start 08/09/18 at 14:00 Piperacillin Sod/ Tazobactam Sod 50 ml @ 100 mls/hr Q8 IVPB Last administered on 08/17/18 05:21; Admin Dose 100 MLS/HR; Start 08/10/18 at 14:00 IV Flush (NS 10 ml) 10 ml PRN PRN IV IV PROTOCOL; Start 08/11/18 at 16:30 Lansoprazole (Prevacid) 30 mg 0600,1800 PEG Last administered on 08/17/18 05:21; Admin Dose 30 MG; Start 08/11/18 at 18:28 Heparin Sodium (Porcine) (Heparin (1000 Units/ml)) 3,000 unit PRN PRN CATHETER Dialysis Last administered on 08/17/18 13:36; Admin Dose 3,000 UNIT; Start 08/12/18 at 14:30 Ciprofloxacin HCl (Ciprofloxacin HCl Otic) 5 drop BID LEFT EAR Last administered on 08/17/18at 10:48; Admin Dose 5 DROP; Start 08/14/18 at 10:00; Stop 08/20/18 at 21:01 Labetalol HCl (Labetalol) 10 mg Q4H PRN IV ELEVATED SYSTOLIC BP > 180 Last administered on 08/16/18at 05:14; Admin Dose 10 MG; Start 08/14/18 at 19:00 Midazolam HCl 50 ml @ 1 mls/hr TITRATE IV Last administered on 08/16/18at 03:51; Admin Dose 5 MLS/HR; Start 08/15/18 at 11:00 Hydralazine HCl (Apresoline) 20 mg Q2 PRN IV ELEVATED SYSTOLIC BP Last administered on 08/17/18at 06:36; Admin Dose 20 MG; Start 08/16/18 at 08:00 Metronidazole 100 ml @ 100 mls/hr Q8 IVPB Last administered on 08/17/18at 05:21; Admin Dose 100 MLS/HR; Start 08/16/18 at 22:00 Carvedilol (Coreg) 12.5 mg Q6H PO Last administered on 08/17/18at 05:24; Admin Dose 12.5 MG; Start 08/17/18 at 01:00 WIN LUCIANO NP Aug 17, 2018 14:35
[2018-08-17] MEDS: FOLIC ACID 1 MG TAB NGT SCH (14:54)
[2018-08-17] MEDS: ZINC SULFATE 220 MG CAP NGT SCH (14:55)
[2018-08-17] MEDS: ASPIRIN 81 MG TAB NGT SCH (14:55)
[2018-08-17] MEDS: ASCORBIC ACID 500 MG TAB NGT SCH (14:55)
[2018-08-17] MEDS: MULTIVITAMINS 30 ML CUP NGT SCH (14:58)
[2018-08-17] MEDS: TICAGRELOR 90 MG TABLET PO SCH ×2 (15:03→20:16)
[2018-08-17] MEDS: morphine 2 MG INJ IV PRN (18:30)
[2018-08-17] MEDS: ATORVASTATIN 80 MG TAB PO SCH (20:14)
--- NOTE | 2018-08-17 20:24 | EN ---
Date/Time of Note Date/Time of Note DATE: 08/17/18 TIME: 20:23 ER Progress Note Endotracheal Intubation by me: Pre assessment performed. Replacement of endotracheal tube The patient was premedicated with 1 mg of Versed Blade: [Mac 4] ET Tube: 7.5] cm Depth: 23 cm at the lip Intubation confirmed by colorimetric CO2, equal breath sounds, quiet over the stomach. Chest X-ray 1V Interpreted by me: 2 cm above the marisabel ET tube. Normal soft tissue, No pneumothorax. HARPAL VAZQUEZ MD Aug 17, 2018 20:24
[2018-08-17] MEDS: MIDAZOLAM (DRIP) 50 mg/50 mL 50 ML IV SCH (20:26)
[2018-08-17] MEDS: FENTAnyl (DRIP) 1000 mcg/100mL 100 ML IV SCH (20:44)
[2018-08-18] VITALS (60 sets, daily range): BP systolic 89–147; BP diastolic 51–97; PULSE 96–124; RESP 19–41
[2018-08-18] MEDS: IPRATROPIUM (HFA) 12.9 GM INHALER INH SCH ×4 (01:42→20:23)
[2018-08-18] MEDS: ALBUTEROL HFA 8 GM INHALER INH SCH ×4 (01:44→20:23)
[2018-08-18] MEDS: MIDAZOLAM (DRIP) 50 mg/50 mL 50 ML IV SCH ×2 (02:23→23:11)
[2018-08-18] MEDS: PIPER-TAZO 2.25 GM/NS 50 ML IVPB SCH ×3 (05:05→21:34)
[2018-08-18] MEDS: metroNIDAZOLE 500 MG/NS (PMX) 100 ML IVPB SCH ×3 (05:05→21:34)
[2018-08-18] MEDS: LANSOPRAZOLE 30 MG CAP PEG SCH ×2 (05:05→18:29)
[2018-08-18] MEDS: ARTIFICIAL TEARS 15 ML OPH BOTH EYES SCH ×4 (05:06→23:12)
[2018-08-18] MEDS: OCULAR LUBRICANT 3.5 GM OPH OINT BOTH EYES SCH ×4 (05:06→23:12)
--- NOTE | 2018-08-18 07:07 | PN ---
Date/Time of Note Date/Time of Note DATE: 08/18/18 TIME: 07:03 Assessment/Plan VTE Prophylaxis Risk score (from Ns)>0 risk: 11 SCD applied (from Ns): No SCD contraindicated: other Pharmacological prophylaxis: other Lines/Catheters IV C[facility]ter Type (from [facility] PICC Line Central line still needed: Yes Urinary Cath still in place: Yes Reason Cath still needed: urinary retention Assessment/Plan Hospital Course renal follow up SUBJECTIVE: The patient remains critically ill. The patient is on full ventilator support. The patient has been receiving daily dialysis for solute clearance, volume removal. No other events noted. OBJECTIVE: HEENT: Head is normocephalic. NECK: Supple. HEART: Regular rate. LUNGS: Show diminished breath sounds at the base. ABDOMEN: Soft, obese, nontender to palpation without rebound or guarding. EXTREMITIES: Negative for clubbing, cyanosis. Positive edema. DERMATOLOGIC: No rashes. MUSCULOSKELETAL: No joint effusions. NEUROLOGIC: No change in exam. MEDICATIONS: The patient's medications have been reviewed. LABORATORY DATA: Has been reviewed. IMAGING STUDIES: Have been reviewed. Chest x-ray shows findings of increased infiltrates, possible edema. MRI shows evidence of acute infarcts in bilateral frontoparietal subcortical white matter and small old products. ASSESSMENT AND PLAN: 1. Anuric acute kidney injury with previously normal baseline creatinine. Etiology of acute kidney injury is secondary to acute tubular necrosis due to shock, contrast-associated nephropathy, sepsis. The patient is currently on daily dialysis for solute clearance and volume removal. Will anticipate dialysis again today. \ 2. Ventilatory dependent respiratory failure. Vent settings and ABG was reviewed. Continue to monitor. 3. Cardiac arrest/ST elevated myocardial infarction. The patient is status post cardiac catheterization with multiple stent placements. Continue medical management. Follow up with cardiology. 4. Mineral bone disorder, monitor calcium and phosphatase levels. 5. Volume overload. Patient has noted lower extremity edema, pulmonary congestion. Continue ultrafiltration dialysis. 6. Sepsis, status post shock secondary to pneumonia, bacteremia. Patient is completing antibiotic course. 7. Metabolic acidosis, improved. Continue to monitor. 8. Anemia. Monitor hemoglobin and hematocrit levels. 9. Acute encephalopathy. Etiology is secondary to anoxic injury and acute cerebrovascular accident. The patient's MRI was reviewed. Continue to monitor. Follow up with urology. 10. Gastrointestinal and deep venous thrombosis prophylaxis. Result Diagram: 08/18/1839908/18/180 Results 24hrs Laboratory Tests Test 08/17/18 10:47 08/17/18 18:44 08/17/18 20:30 08/17/18 20:45 Bedside Glucose 132 135 129 Blood Gas Blood arterial Specimen Source Arterial Blood 08/17/2018 8:35:0 Date Drawn 9 PM Arterial Blood pH 7.325 L (Temp corrected) Arterial Blood 57.6 H pCO2 (Temp correct) Arterial Blood 62.3 L pO2 (Temp corrected) Arterial Blood 29.3 H HCO3 Arterial Blood 2.0 Base Excess Arterial Blood 88.8 L Oxygen Saturation Dajuan Test ACCEPTAB Arterial Blood Left Radial Gas Puncture Site Arterial 0.1 Blood Carboxyhemo globin Arterial Blood 0.2 Methemoglobin Blood Gas A-a O2 338.5 H Differential Oxyhemoglobin 88.5 L Percent Blood Gas 37.0 Temperature Blood Gas 20.0 Respiration Rate Blood Gas Actual 20 Respiration Rate Blood Gas VENT - PC Modality FiO2 65.0 Blood Gas 0.85 Inspiratory Time Blood Gas Low 5.0 PEEP Setting Blood Gas 47.0 Inspiratory Pressure Blood Gas UP Notified Whom Blood Gas 08/17/2018 8:48:2 Notified Time 0 PM Test 08/18/18 04:00 White Blood Count 14.5 H Red Blood Count 3.14 L Hemoglobin 8.6 L Hematocrit 27.8 L Mean Corpuscular 88.5 Volume Mean Corpuscular 27.4 L Hemoglobin Mean Corpuscular 30.9 L Hemoglobin Concen t Red Cell 16.5 H Distribution Width Platelet Count 186 Mean Platelet 13.0 H Volume Immature 1.400 H Granulocytes % Neutrophils % 86.4 H Lymphocytes % 5.9 L Monocytes % 5.6 Eosinophils % 0.4 Basophils % 0.3 Nucleated Red 0.0 Blood Cells % Immature 0.210 H Granulocytes # Neutrophils # 12.5 H Lymphocytes # 0.9 Monocytes # 0.8 Eosinophils # 0.1 Basophils # 0.1 Nucleated Red 0.0 Blood Cells # Sodium Level 139 Potassium Level 4.9 Chloride Level 103 Carbon Dioxide 30 Level Anion Gap 6 Blood Urea 52 H Nitrogen Creatinine 3.23 H Est Glomerular 16 L Filtrat Rate mL/min Glucose Level 136 Calcium Level 8.7 Phosphorus Level 6.9 #H Magnesium Level 2.3 Exam/Review of Systems Exam Vitals Vital Signs Date Temp Pulse Resp B/P (MAP) Pulse Ox O2 O2 Flow FiO2 Time Delivery Rate 08/18/18 101 32 119/74 100 Mechanical 06:00 (89) Ventilator 08/18/18 80 04:52 08/18/18 98.7 04:00 Intake and Output 08/17/18 08/17/18 08/18/18 1515:00 23:00 07:00 IntakeIntake Total 380 ml 521.25 ml 523 ml OutputOutput Total 2670 ml 20 ml 0 ml BalanceBalance -2290 ml 501.25 ml 523 ml Results Results 24hrs Laboratory Tests Test 08/17/18 10:47 08/17/18 18:44 08/17/18 20:30 08/17/18 20:45 Bedside Glucose 132 135 129 Blood Gas Blood arterial Specimen Source Arterial Blood 08/17/2018 8:35:0 Date Drawn 9 PM Arterial Blood pH 7.325 L (Temp corrected) Arterial Blood 57.6 H pCO2 (Temp correct) Arterial Blood 62.3 L pO2 (Temp corrected) Arterial Blood 29.3 H HCO3 Arterial Blood 2.0 Base Excess Arterial Blood 88.8 L Oxygen Saturation Dajuan Test ACCEPTAB Arterial Blood Left Radial Gas Puncture Site Arterial 0.1 Blood Carboxyhemo globin Arterial Blood 0.2 Methemoglobin Blood Gas A-a O2 338.5 H Differential Oxyhemoglobin 88.5 L Percent Blood Gas 37.0 Temperature Blood Gas 20.0 Respiration Rate Blood Gas Actual 20 Respiration Rate Blood Gas VENT - PC Modality FiO2 65.0 Blood Gas 0.85 Inspiratory Time Blood Gas Low 5.0 PEEP Setting Blood Gas 47.0 Inspiratory Pressure Blood Gas UP Notified Whom Blood Gas 08/17/2018 8:48:2 Notified Time 0 PM Test 08/18/18 04:00 White Blood Count 14.5 H Red Blood Count 3.14 L Hemoglobin 8.6 L Hematocrit 27.8 L Mean Corpuscular 88.5 Volume Mean Corpuscular 27.4 L Hemoglobin Mean Corpuscular 30.9 L Hemoglobin Concen t Red Cell 16.5 H Distribution Width Platelet Count 186 Mean Platelet 13.0 H Volume Immature 1.400 H Granulocytes % Neutrophils % 86.4 H Lymphocytes % 5.9 L Monocytes % 5.6 Eosinophils % 0.4 Basophils % 0.3 Nucleated Red 0.0 Blood Cells % Immature 0.210 H Granulocytes # Neutrophils # 12.5 H Lymphocytes # 0.9 Monocytes # 0.8 Eosinophils # 0.1 Basophils # 0.1 Nucleated Red 0.0 Blood Cells # Sodium Level 139 Potassium Level 4.9 Chloride Level 103 Carbon Dioxide 30 Level Anion Gap 6 Blood Urea 52 H Nitrogen Creatinine 3.23 H Est Glomerular 16 L Filtrat Rate mL/min Glucose Level 136 Calcium Level 8.7 Phosphorus Level 6.9 #H Magnesium Level 2.3 Medications Medication Current Medications Norepinephrine 250 ml @ 1.875 mls/ hr TITRATE IV Last administered on 08/10/18 00:41; Admin Dose 5.625 MLS/HR; Start 08/04/18 at 23:15 Ticagrelor (Brilinta) 90 mg BID PO Last administered on 08/17/18 20:16; Admin Dose 90 MG; Start 08/05/18 at 09:00 Morphine Sulfate (morphine) 1 mg Q1H PRN IV PAIN Last administered on 08/17/18 18:30; Admin Dose 1 MG; Start 08/04/18 at 23:30 Docusate Sodium (Colace) 100 mg BID PO Last administered on 08/17/18 20:14; Admin Dose 100 MG; Start 08/05/18 at 09:00 Atorvastatin Calcium (Lipitor) 80 mg DAILY@21 PO Last administered on 08/17/18 20:14; Admin Dose 80 MG; Start 08/05/18 at 21:00 Nitroglycerin/ Dextrose 250 ml @ 1.5 mls/hr TITRATE IV Last administered on 08/05/18 14:22; Admin Dose 72 MLS/HR; Start 08/05/18 at 01:00 Miscellaneous Information 1 ea NOTE XX ; Start 08/05/18 at 09:00 Acetaminophen (Tylenol Supp) 650 mg Q4H PRN [place] TEMP > 37C Last administered on 08/09/18 04:37; Admin Dose 650 MG; Start 08/05/18 at 11:00 Acetaminophen (Tylenol Liquid) 650 mg Q4H PRN PO TEMP > 37C Last administered on 08/11/18 11:55; Admin Dose 650 MG; Start 08/05/18 at 11:00 Meperidine HCl (Demerol) 25 mg Q4H PRN IV POST OPERATIVE SHIVERING Last admin istered on 3/17/19at 16:31; Admin Dose 25 MG; Start 08/05/18 at 11:00 Eye Lubricant (Akwa Oint) 1 applic Q6 BOTH EYES Last administered on 08/18/18 05:06; Admin Dose 1 APPLIC; Start 08/05/18 at 12:00 Eye Lubricant (Artificial Tears Oph) 2 drop Q6 BOTH EYES Last administered on 08/18/18 05:06; Admin Dose 2 DROP; Start 08/05/18 at 12:00 Insulin Human Regular 100 unit/ Sodium Chloride 100 ml @ 0 mls/hr PER PROTOCOL IV ; Start 08/05/18 at 12:00 Miscellaneous Information (* Miscellaneous Pharmacy Order) Treatment of Hypoglycemia: 1.BG 51... Per protocol XX ; Start 08/05/18 at 12:00 Dextrose (D50w Syringe) 25 ml Q15M PRN IV .DECREASED GLUCOSE; Start 08/05/18 at 12:00 Dextrose (D50w Syringe) 50 ml Q15M PRN IV .DECREASED GLUCOSE; Start 08/05/18 at 12:00 Fentanyl 100 ml @ 2.5 mls/hr TITRATE IV Last administered on 08/17/18 20:44; Admin Dose 5 MLS/HR; Start 08/05/18 at 12:00 Meperidine HCl (Demerol) 12.5 mg Q2H PRN IV POST OPERATIVE SHIVERING; Start 08/05/18 at 17:00 Aspirin (Aspirin) 81 mg DAILY NGT Last administered on 08/17/18 14:55; Admin Dose 81 MG; Start 08/06/18 at 09:00 Diagnostic Test (Pha) (Accu-Chek) 1 ea Q12 XX Last administered on 08/17/18 10:48; Admin Dose 1 EA; Start 08/06/18 at 21:00 Multivitamins (Multivitamin) 30 ml DAILY NGT Last administered on 08/17/18 14:58; Admin Dose 30 ML; Start 08/09/18 at 09:00 Zinc Sulfate (Zinc Sulfate) 220 mg DAILY NGT Last administered on 08/17/18 14:55; Admin Dose 220 MG; Start 08/09/18 at 09:00 Folic Acid (Folic Acid) 1 mg DAILY NGT Last administered on 08/17/18 14:54; Admin Dose 1 MG; Start 08/09/18 at 09:00 Ascorbic Acid (Vitamin C) 500 mg DAILY NGT Last administered on 08/17/18 14:55; Admin Dose 500 MG; Start 08/09/18 at 09:00 Albuterol (Ventolin Hfa) 4 puff Q6HWA RESP THERAPY INH Last administered on 01:44; Admin Dose 4 PUFF; Start 08/09/18 at 14:00 Ipratropium [place] (Atrovent Hfa) 4 puff Q6H RESP THERAPY INH Last administered on 08/18/18 01:42; Admin Dose 4 PUFF; Start 08/09/18 at 14:00 Piperacillin Sod/ Tazobactam Sod 50 ml @ 100 mls/hr Q8 IVPB Last administered on 08/18/18 05:05; Admin Dose 100 MLS/HR; Start 08/10/18 at 14:00 IV Flush (NS 10 ml) 10 ml PRN PRN IV IV PROTOCOL; Start 08/11/18 at 16:30 Lansoprazole (Prevacid) 30 mg 0600,1800 PEG Last administered on 08/18/18 05:05; Admin Dose 30 MG; Start 08/11/18 at 18:28 Heparin Sodium (Porcine) (Heparin (1000 Units/ml)) 3,000 unit PRN PRN CATHETER Dialysis Last administered on 08/17/18 13:36; Admin Dose 3,000 UNIT; Start 08/12/18 at 14:30 Ciprofloxacin HCl (Ciprofloxacin HCl Otic) 5 drop BID LEFT EAR Last admini stered on 08/17/18 20:14; Admin Dose 5 DROP; Start 08/14/18 at 10:00; Stop 08/20/18 at 21:01 Labetalol HCl (Labetalol) 10 mg Q4H PRN IV ELEVATED SYSTOLIC BP > 180 Last administered on 08/16/18 05:14; Admin Dose 10 MG; Start 08/14/18 at 19:00 Midazolam HCl 50 ml @ 1 mls/hr TITRATE IV Last administered on 08/18/18 02:23; Admin Dose 4 MLS/HR; Start 08/15/18 at 11:00 Hydralazine HCl (Apresoline) 20 mg Q2 PRN IV ELEVATED SYSTOLIC BP Last administered on 08/17/18 18:30; Admin Dose 20 MG; Start 08/16/18 at 08:00 Metronidazole 100 ml @ 100 mls/hr Q8 IVPB Last administered on 08/18/18at 05:05; Admin Dose 100 MLS/HR; Start 08/16/18 at 22:00 Carvedilol (Coreg) 12.5 mg Q6H PO Last administered on 08/18/18at 05:06; Admin Dose 12.5 MG; Start 08/17/18 at 01:00 BINH MATTHEWS DO Aug 18, 2018 07:06
--- NOTE | 2018-08-18 08:35 | CONS ---
Assessment/Plan Assessment/Plan Assessment/Plan (Daily) Ventilator setting; AC of 20, pressure control, 80% FiO2, PEEP of 5. Patient is currently on Versed 4 mg/h. Fentanyl 50 mics per hour. Assessment and recommendations; 1. Patient admitted with respiratory failure due to severe bilateral pneumonia and sepsis with bacteremia as well as UTI. Currently on appropriate antimicrobial regimen. Staph aureus cultured from sputum. 2. Persistent hypoxemia. 3. CVA. 4. Renal failure, on hemodialysis. 5. History of hypertension. 6. Anemia and thrombocytopenia. Continue current supportive care. Hold sedation to assess mental status. Decrease FiO2. Obtain follow-up chest x-ray in 24 hours. Prognosis appears very poor. 35 minutes of critical care time was spent evaluating patient. Consultation Date/Type/Reason Admit Date/Time Aug 04, 2018 at 23:10 Initial Consult Date 08/17/18 Type of Consult Pulmonary/critical care Reason for Consultation Patient's condition remains critical. Remains sedated. Patient exhibiting severe tachypnea tachycardia whenever taken off Versed drip. General exam; young female, orally intubated, sedated, currently in no distress. H EENT exam; supple neck, positive JVD. No lymphadenopathy. Midline trachea. No thyromegaly. Orally intubated. Pupils are small bilaterally. Patient has fair dentition. No neck masses. Chest exam; diminished breath sounds bilaterally. No added sounds. S1-S2 audible, no murmurs. Regular rhythm. Abdomen exam; soft, protuberant. Bowel sounds are audible. No organomegaly. Extremity exam; trace edema. 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 Requesting Provider: HARPAL AGGARWAL MD Date/Time of Note DATE: 08/18/18 TIME: 08:30 Exam/Review of Systems Exam Vitals Vital Signs Date Temp Pulse Resp B/P (MAP) Pulse Ox O2 O2 Flow FiO2 Time Delivery Rate 08/18/18 101 32 119/74 100 Mechanical 06:00 (89) Ventilator 08/18/18 80 04:52 08/18/18 98.7 04:00 Intake and Output 08/17/18 08/17/18 08/18/18 1515:00 23:00 07:00 IntakeIntake Total 380 ml 521.25 ml 523 ml OutputOutput Total 2670 ml 20 ml 0 ml BalanceBalance -2290 ml 501.25 ml 523 ml Results Result Diagram: 08/18/18 0400 08/18/18 0400 Results 24hrs Laboratory Tests Test 08/17/18 10:47 08/17/18 18:44 08/17/18 20:30 08/17/18 20:45 Bedside Glucose 132 135 129 Blood Gas Blood arterial Specimen Source Arterial Blood 08/17/2018 8:35:0 Date Drawn 9 PM Arterial Blood pH 7.325 L (Temp corrected) Arterial Blood 57.6 H pCO2 (Temp correct) Arterial Blood 62.3 L pO2 (Temp corrected) Arterial Blood 29.3 H HCO3 Arterial Blood 2.0 Base Excess Arterial Blood 88.8 L Oxygen Saturation Dajuan Test ACCEPTAB Arterial Blood Left Radial Gas Puncture Site Arterial 0.1 Blood Carboxyhemo globin Arterial Blood 0.2 Methemoglobin Blood Gas A-a O2 338.5 H Differential Oxyhemoglobin 88.5 L Percent Blood Gas 37.0 Temperature Blood Gas 20.0 Respiration Rate Blood Gas Actual 20 Respiration Rate Blood Gas VENT - PC Modality FiO2 65.0 Blood Gas 0.85 Inspiratory Time Blood Gas Low 5.0 PEEP Setting Blood Gas 47.0 Inspiratory Pressure Blood Gas UP Notified Whom Blood Gas 08/17/2018 8:48:2 Notified Time 0 PM Test 08/18/18 04:00 White Blood Count 14.5 H Red Blood Count 3.14 L Hemoglobin 8.6 L Hematocrit 27.8 L Mean Corpuscular 88.5 Volume Mean Corpuscular 27.4 L Hemoglobin Mean Corpuscular 30.9 L Hemoglobin Concen t Red Cell 16.5 H Distribution Width Platelet Count 186 Mean Platelet 13.0 H Volume Immature 1.400 H Granulocytes % Neutrophils % 86.4 H Lymphocytes % 5.9 L Monocytes % 5.6 Eosinophils % 0.4 Basophils % 0.3 Nucleated Red 0.0 Blood Cells % Immature 0.210 H Granulocytes # Neutrophils # 12.5 H Lymphocytes # 0.9 Monocytes # 0.8 Eosinophils # 0.1 Basophils # 0.1 Nucleated Red 0.0 Blood Cells # Sodium Level 139 Potassium Level 4.9 Chloride Level 103 Carbon Dioxide 30 Level Anion Gap 6 Blood Urea 52 H Nitrogen Creatinine 3.23 H Est Glomerular 16 L Filtrat Rate mL/min Glucose Level 136 Calcium Level 8.7 Phosphorus Level 6.9 #H Magnesium Level 2.3 Medications Medication Current Medications Norepinephrine 250 ml @ 1.875 mls/ hr TITRATE IV Last administered on 08/10/18 00:41; Admin Dose 5.625 MLS/HR; Start 08/04/18 at 23:15 Ticagrelor (Brilinta) 90 mg BID PO Last administered on 08/17/18 20:16; Admin Dose 90 MG; Start 08/05/18 at 09:00 Morphine Sulfate (morphine) 1 mg Q1H PRN IV PAIN Last administered on 08/17/18 18:30; Admin Dose 1 MG; Start 08/04/18 at 23:30 Docusate Sodium (Colace) 100 mg BID PO Last administered on 08/17/18 20:14; Admin Dose 100 MG; Start 08/05/18 at 09:00 Atorvastatin Calcium (Lipitor) 80 mg DAILY@21 PO Last administered on 08/17/18 20:14; Admin Dose 80 MG; Start 08/05/18 at 21:00 Nitroglycerin/ Dextrose 250 ml @ 1.5 mls/hr TITRATE IV Last administered on 08/05/18 14:22; Admin Dose 72 MLS/HR; Start 08/05/18 at 01:00 Miscellaneous Information 1 ea NOTE XX ; Start 08/05/18 at 09:00 Acetaminophen (Tylenol Supp) 650 mg Q4H PRN [place] TEMP > 37C Last administered on 08/09/18 04:37; Admin Dose 650 MG; Start 08/05/18 at 11:00 Acetaminophen (Tylenol Liquid) 650 mg Q4H PRN PO TEMP > 37C Last administered on 08/11/18 11:55; Admin Dose 650 MG; Start 08/05/18 at 11:00 Meperidine HCl (Demerol) 25 mg Q4H PRN IV POST OPERATIVE SHIVERING Last administered on 08/05/18 16:31; Admin Dose 25 MG; Start 08/05/18 at 11:00 Eye Lubricant (Akwa Oint) 1 applic Q6 BOTH EYES Last administered on 08/18/18 05:06; Admin Dose 1 APPLIC; Start 08/05/18 at 12:00 Eye Lubricant (Artificial Tears Oph) 2 drop Q6 BOTH EYES Last administered on 08/18/18 05:06; Admin Dose 2 DROP; Start 08/05/18 at 12:00 Insulin Human Regular 100 unit/ Sodium Chloride 100 ml @ 0 mls/hr PER PROTOCOL IV ; Start 08/05/18 at 12:00 Miscellaneous Information (* Miscellaneous Pharmacy Order) Treatment of Hyp oglycemia: 1.BG 51... Per protocol XX ; Start 08/05/18 at 12:00 Dextrose (D50w Syringe) 25 ml Q15M PRN IV .DECREASED GLUCOSE; Start 08/05/18 at 12:00 Dextrose (D50w Syringe) 50 ml Q15M PRN IV .DECREASED GLUCOSE; Start 08/05/18 at 12:00 Fentanyl 100 ml @ 2.5 mls/hr TITRATE IV Last administered on 08/17/18 20:44; Admin Dose 5 MLS/HR; Start 08/05/18 at 12:00 Meperidine HCl (Demerol) 12.5 mg Q2H PRN IV POST OPERATIVE SHIVERING; Start 08/05/18 at 17:00 Aspirin (Aspirin) 81 mg DAILY NGT Last administered on 08/17/18 14:55; Admin Dose 81 MG; Start 08/06/18 at 09:00 Diagnostic Test (Pha) (Accu-Chek) 1 ea Q12 XX Last administered on 08/17/18 10:48; Admin Dose 1 EA; Start 08/06/18 at 21:00 Multivitamins (Multivitamin) 30 ml DAILY NGT Last administered on 08/17/18 14:58; Admin Dose 30 ML; Start 08/09/18 at 09:00 Zinc Sulfate (Zinc Sulfate) 220 mg DAILY NGT Last administered on 08/17/18 14:55; Admin Dose 220 MG; Start 08/09/18 at 09:00 Folic Acid (Folic Acid) 1 mg DAILY NGT Last administered on 08/17/18 14:54; Admin Dose 1 MG; Start 08/09/18 at 09:00 Ascorbic Acid (Vitamin C) 500 mg DAILY NGT Last administered on 08/17/18 14:55; Admin Dose 500 MG; Start 08/09/18 at 09:00 Albuterol (Ventolin Hfa) 4 puff Q6HWA RESP THERAPY INH Last administered on 08/18/18 01:44; Admin Dose 4 PUFF; Start 08/09/18 at 14:00 Ipratropium [place] (Atrovent Hfa) 4 puff Q6H RESP THERAPY INH Last administered on 08/18/18 01:42; Admin Dose 4 PUFF; Start 08/09/18 at 14:00 Piperacillin Sod/ Tazobactam Sod 50 ml @ 100 mls/hr Q8 IVPB Last administered on 08/18/18 05:05; Admin Dose 100 MLS/HR; Start 08/10/18 at 14:00 IV Flush (NS 10 ml) 10 ml PRN PRN IV IV PROTOCOL; Start 08/11/18 at 16:30 Lansoprazole (Prevacid) 30 mg 0600,1800 PEG Last administered on 08/18/18 05:05; Admin Dose 30 MG; Start 08/11/18 at 18:28 Heparin Sodium (Porcine) (Heparin (1000 Units/ml)) 3,000 unit PRN PRN CATHETER Dialysis Last administered on 08/17/18 13:36; Admin Dose 3,000 UNIT; Start 08/12/18 at 14:30 Ciprofloxacin HCl (Ciprofloxacin HCl Otic) 5 drop BID LEFT EAR Last administered on 08/17/18 20:14; Admin Dose 5 DROP; Start 08/14/18 at 10:00; Stop 08/20/18 at 21:01 Labetalol HCl (Labetalol) 10 mg Q4H PRN IV ELEVATED SYSTOLIC BP > 180 Last administered on 08/16/18 05:14; Admin Dose 10 MG; Start 08/14/18 at 19:00 Midazolam HCl 50 ml @ 1 mls/hr TITRATE IV Last administered on 08/18/18 02:23; Admin Dose 4 MLS/HR; Start 08/15/18 at 11:00 Hydralazine HCl (Apresoline) 20 mg Q2 PRN IV ELEVATED SYSTOLIC BP Last administered on 08/17/18 18:30; Admin Dose 20 MG; Start 08/16/18 at 08:00 Metronidazole 100 ml @ 100 mls/hr Q8 IVPB Last administered on 08/18/18 05:05; Admin Dose 100 MLS/HR; Start 08/16/18 at 22:00 Carvedilol (Coreg) 12.5 mg Q6H PO Last administered on 08/18/18 05:06; Admin Dose 12.5 MG; Start 08/17/18 at 01:00 QARNI,MARIAA Aug 18, 2018 08:35
--- NOTE | 2018-08-18 08:37 | CONS ---
Assessment/Plan Assessment/Plan Hospital Course 38 yo F w/ reported Hx of HTN and DM2 who is admitted to the [facility] ICU s/p a vfib cardiac arrest. She is now s/p cardiac catheterization w/ 2 coronary stents. now s/p targeted temperature therapy. Neurology is consulted given persistent encephalopathy...which is likely multifactorial -- toxic-metabolic, medications, hypoxic-ischemic MRI brain is notable for multiple bihemispheric infarcts... likely of cardioembolic origin in the context of her recent arrest. EEG is without epileptiform activity CUS is unrevealing. Ammonia, RPR level wnl. ESR >130 Echo on 08/05 in unrevealing. P: Await hypercoag panel; defer CTA for now given poor renal function Continue ASA/Lipitor for secondary stroke prevention Continued medical management per primary Will follow clinically Consultation Date/Type/Reason Admit Date/Time Aug 04, 2018 at 23:10 Type of Consult Neurology Requesting Provider: HARPAL AGGARWAL MD Date/Time of Note DATE: 08/18/18 TIME: 08:37 24 HR Interval Summary Free Text/Dictation Continues critical care. Versed restarted for pt agitation/elevated HR. Family meeting scheduled for today. Subjective hx not possible: pt non-verbal, pt critical Exam Vital Signs Vitals Vital Signs Date Temp Pulse Resp B/P (MAP) Pulse Ox O2 O2 Flow FiO2 Time Delivery Rate 08/18/18 101 32 119/74 100 Mechanical 06:00 (89) Ventilator 08/18/18 80 04:52 08/18/18 98.7 04:00 Intake and Output 08/17/18 08/17/18 08/18/18 1414:59 22:59 06:59 IntakeIntake Total 350 ml 542.25 ml 572 ml OutputOutput Total 2670 ml 25 ml 0 ml BalanceBalance -2320 ml 517.25 ml 572 ml Exam PE: Gen Appearance: No Apparent Distress HEENT: Intubated Cardiovascular: Regular rate Abdomen: Soft Extremities: Dry NE: The patient was sedated and nonverbal. Able to open her eyes to loud stimuli. Able to track; unable to follow any commands. Cranial nerve examination was limited by mental status. Pupils were equal and reactive to light. There was no afferent pupillary defect. Funduscopic examination was limited. Face was grossly symmetric, w/ present corneal and cough reflexes. Tone was normal. Muscle bulk was normal. I did not see fasciculations. The patient withdrew to noxious stimulation in her BLE. Coordination and gait testing was limited by mental status. Arm and leg reflexes were within normal limits and symmetric. Alvarez's sign was absent. Plantar responses were flexor. KAYCEE ESCOBEDO NP Aug 18, 2018 08:37
[2018-08-18] MEDS: ASCORBIC ACID 500 MG TAB NGT SCH (09:00)
[2018-08-18] MEDS: ZINC SULFATE 220 MG CAP NGT SCH (09:00)
[2018-08-18] MEDS: ASPIRIN 81 MG TAB NGT SCH (09:00)
[2018-08-18] MEDS: MULTIVITAMINS 30 ML CUP NGT SCH (09:00)
[2018-08-18] MEDS: FOLIC ACID 1 MG TAB NGT SCH (09:01)
[2018-08-18] MEDS: CIPROFLOXACIN HCL OTIC DROP 0.25 ML LEFT EAR SCH ×2 (09:09→21:34)
[2018-08-18] MEDS: DOCUSATE SODIUM 10 MG/ML (10ML CUP) GTB SCH ×2 (09:09→21:00)
[2018-08-18] MEDS: ACCU-CHEK XX SCH ×2 (09:10→21:37)
--- NOTE | 2018-08-18 09:23 | PN ---
Date/Time of Note Date/Time of Note DATE: 08/18/18 TIME: 09:20 Objective Vitals Vital Signs Date Temp Pulse Resp B/P (MAP) Pulse Ox O2 O2 Flow FiO2 Time Delivery Rate 08/18/18 101 32 119/74 100 Mechanical 06:00 (89) Ventilator 08/18/18 80 04:52 08/18/18 98.7 04:00 Intake and Output 08/17/18 08/17/18 08/18/18 1515:00 23:00 07:00 IntakeIntake Total 380 ml 521.25 ml 523 ml OutputOutput Total 2670 ml 20 ml 0 ml BalanceBalance -2290 ml 501.25 ml 523 ml Results Result Diagram: 08/18/18 0400 08/18/18 0400 Medications Medications Current Medications Norepinephrine 250 ml @ 1.875 mls/ hr TITRATE IV Last administered on 08/10/18at 00:41; Admin Dose 5.625 MLS/HR; Start 08/04/18 at 23:15 Ticagrelor (Brilinta) 90 mg BID PO Last administered on 08/17/18at 20:16; Admin Dose 90 MG; Start 08/05/18 at 09:00; Status Hold Morphine Sulfate (morphine) 1 mg Q1H PRN IV PAIN Last administered on 08/17/18at 18:30; Admin Dose 1 MG; Start 08/04/18 at 23:30 Atorvastatin Calcium (Lipitor) 80 mg DAILY@21 PO Last administered on 08/17/18at 20:14; Admin Dose 80 MG; Start 08/05/18 at 21:00 Nitroglycerin/ Dextrose 250 ml @ 1.5 mls/hr TITRATE IV Last administered on 08/05/18at 14:22; Admin Dose 72 MLS/HR; Start 08/05/18 at 01:00 Miscellaneous Information 1 ea NOTE XX ; Start 08/05/18 at 09:00 Acetaminophen (Tylenol Supp) 650 mg Q4H PRN [place] TEMP > 37C Last administered on 08/09/18at 04:37; Admin Dose 650 MG; Start 08/05/18 at 11:00 Acetaminophen (Tylenol Liquid) 650 mg Q4H PRN PO TEMP > 37C Last administered on 08/11/18at 11:55; Admin Dose 650 MG; Start 08/05/18 at 11:00 Meperidine HCl (Demerol) 25 mg Q4H PRN IV POST OPERATIVE SHIVERING Last administered on 08/05/18 16:31; Admin Dose 25 MG; Start 08/05/18 at 11:00 Eye Lubricant (Akwa Oint) 1 applic Q6 BOTH EYES Last administered on 08/18/18 05:06; Admin Dose 1 APPLIC; Start 08/05/18 at 12:00 Eye Lubricant (Artificial Tears Oph) 2 drop Q6 BOTH EYES Last administered on 08/18/18 05:06; Admin Dose 2 DROP; Start 08/05/18 at 12:00 Insulin Human Regular 100 unit/ Sodium Chloride 100 ml @ 0 mls/hr PER PROTOCOL IV ; Start 08/05/18 at 12:00 Miscellaneous Information (* Miscellaneous Pharmacy Order) Treatment of Hypoglycemia: 1.BG 51... Per protocol XX ; Start 08/05/18 at 12:00 Dextrose (D50w Syringe) 25 ml Q15M PRN IV .DECREASED GLUCOSE; Start 08/05/18 at 12:00 Dextrose (D50w Syringe) 50 ml Q15M PRN IV .DECREASED GLUCOSE; Start 08/05/18 at 12:00 Fentanyl 100 ml @ 2.5 mls/hr TITRATE IV Last administered on 08/17/18 20:44; Admin Dose 5 MLS/HR; Start 08/05/18 at 12:00 Meperidine HCl (Demerol) 12.5 mg Q2H PRN IV POST OPERATIVE SHIVERING; Start 08/05/18 at 17:00 Aspirin (Aspirin) 81 mg DAILY NGT Last administered on 08/18/18 09:00; Admin Dose 81 MG; Start 08/06/18 at 09:00 Diagnostic Test (Pha) (Accu-Chek) 1 ea Q12 XX Last administered on 08/18/18 09:10; Admin Dose 1 EA; Start 08/06/18 at 21:00 Multivitamins (Multivitamin) 30 ml DAILY NGT Last administered on 08/18/18 09:00; Admin Dose 30 ML; Start 08/09/18 at 09:00 Zinc Sulfate (Zinc Sulfate) 220 mg DAILY NGT Last administered on 08/18/18 09:00; Admin Dose 220 MG; Start 08/09/18 at 09:00 Folic Acid (Folic Acid) 1 mg DAILY NGT Last administered on 08/18/18 09:01; Admin Dose 1 MG; Start 08/09/18 at 09:00 Ascorbic Acid (Vitamin C) 500 mg DAILY NGT Last administered on 08/18/18 09:00; Admin Dose 500 MG; Start 08/09/18 at 09:00 Albuterol (Ventolin Hfa) 4 puff Q6HWA RESP THERAPY INH Last administered on 08/18/18 08:44; Admin Dose 4 PUFF; Start 08/09/18 at 14:00 Ipratropium [place] (Atrovent Hfa) 4 puff Q6H RESP THERAPY INH Last administered on 08/18/18 08:44; Admin Dose 4 PUFF; Start 08/09/18 at 14:00 Piperacillin Sod/ Tazobactam Sod 50 ml @ 100 mls/hr Q8 IVPB Last administered on 08/18/18 05:05; Admin Dose 100 MLS/HR; Start 08/10/18 at 14:00 IV Flush (NS 10 ml) 10 ml PRN PRN IV IV PROTOCOL; Start 08/11/18 at 16:30 Lansoprazole (Prevacid) 30 mg 0600,1800 PEG Last administered on 08/18/18 05:05; Admin Dose 30 MG; Start 08/11/18 at 18:28 Heparin Sodium (Porcine) (Heparin (1000 Units/ml)) 3,000 unit PRN PRN CATHETER Dialysis Last administered on 08/17/18 13:36; Admin Dose 3,000 UNIT; Start 08/12/18 at 14:30 Ciprofloxacin HCl (Ciprofloxacin HCl Otic) 5 drop BID LEFT EAR Last administered on 08/18/18 09:09; Admin Dose 5 DROP; Start 08/14/18 at 10:00; Stop 08/20/18 at 21:01 Labetalol HCl (Labetalol) 10 mg Q4H PRN IV ELEVATED SYSTOLIC BP > 180 Last administered on 08/16/18 05:14; Admin Dose 10 MG; Start 08/14/18 at 19:00 Midazolam HCl 50 ml @ 1 mls/hr TITRATE IV Last administered on 08/18/18 02:23; Admin Dose 4 MLS/HR; Start 08/15/18 at 11:00 Hydralazine HCl (Apresoline) 20 mg Q2 PRN IV ELEVATED SYSTOLIC BP Last administered on 08/17/18 18:30; Admin Dose 20 MG; Start 08/16/18 at 08:00 Metronidazole 100 ml @ 100 mls/hr Q8 IVPB Last administered on 08/18/18 05:05; Admin Dose 100 MLS/HR; Start 08/16/18 at 22:00 Carvedilol (Coreg) 12.5 mg Q6H PO Last administered on 08/18/18 05:06; Admin Dose 12.5 MG; Start 08/17/18 at 01:00 Docusate Sodium (Colace Liquid Cup) 100 mg BID GTB Last administered on 08/18/18 09:09; Admin Dose 100 MG; Start 08/18/18 at 09:00 VTE Prophylaxis Risk score (from [facility] [place]0 risk: 11 SCD applied (from [facility] [place]): No SCD contraindication: other Lines/Catheters IV Catheter Type: Bajwa in Place: Yes Cont'd bajwa catheter reason: terminal illness/intractable pain Assessment/Plan Hospital Course Subjective Patient does open eyes to voice, nursing staff stated that she did follow command earlier today by wiggling her right toe, but I did not appreciate any wiggling of toe or purposeful movement yet. Objective Physical exam General: Patient is laying in bed intubated Mentation: Patient is not alert and oriented 4, Head: Normocephalic atraumatic Eyes: EOMI, pupils reactive to light Ears: Left auditory canal has dried up blood, unable to properly visualize tympanic membrane, right auditory canal clear Neck: Supple, nontender, midline Respiratory: Coarse to auscultation bilaterally Cardiovascular: regular rate, no obvious murmurs Gastrointestinal: non-tender to palpation, bowel sounds heard. Neurological: Opens eyes to voice, questionable movement to command on the right foot Skin: No new skin lesions Assessment/Plan 1. Acute toxic/metabolic encephalopathy - Neurology recs appreciated and CT head noted -MRI noted bilateral CVA -At this time it appears that the initial incident led to anoxic encephalopathy due to unknown downtime during cardiac arrest before she came into the hospital. - monitor for improvement in neurological status, very poor prognosis at this time, patient apparently moved right foot to command earlier per nursing, have yet to witness, however it appears credible and will monitor closely. Bilateral CVA -Found on MRI, likely thromboembolic secondary to cardiopulmonary arrest per neurology -If patient's family decides to continue with care and PEG and trach, will likely need to assess need of a chronic anticoagulation, however due to patient's recent copious nosebleed while on aspirin and Brilinta will need to slowly introduce. We will need to assess if PEG and trach will be done first before we start any anticoagulation as procedures will need to have anticoagulation held. 2. Septic shock secondary to PNA and bacteremia - WBC to be monitored closely - Blood cultures and sputum culture results noted. Will repeat blood cultures as needed - ID consulted for antibiotic recommendations. - Continue current antibiotics and pressor support with goal MAP> 65 3. Bilateral Pneumonia - CXR noted - Pulm on board and appreciate recommendations. Will continue current m anagement and monitor for improvement in respiratory status - continue bronchodilators -ID on board Left auditory canal bleeding -Very mild, only dried blood at this time, however monitor closely as patient is on antiplatelet therapy due to coronary artery disease -ok per ID to start cipro eardrops Sinus infection -Continue IV antibiotics and eardrops, -ID recommended she is appreciated Anemia -Mild drop in hemoglobin, will need to monitor closely as cardiology as previously mentioned patient is on dual antiplatelet therapy, if continues to drop, cardiology may consider switching Brilinta to Plavix. -Improved significantly -ENT physician consulted, Dr. Martinez saw patient in no acute intervention for now as nose bleeding has significantly subsided. 4. CAD s/p PCI x2 - Cardiology on board and appreciate recommendations. Stressed importance of continuing DAPT given recent stent placements and high risk of restenosis - s/p emergent Cath 08/05 with successful PTCA and stenting of proximal and mid LAD, PTCA of the large first diagonal and thrombectomy of the LAD - Repeat PCI on 08/07 performed with stenting to LCx - plans for stenting of RCA prior to discharge if possible - ECHO results noted 5. Acute hypoxic respiratory failure - exacerbated by #1 - Pulm on board for vent management. appreciate consultation 6. HUSEYIN-now on dialysis - Nephrology on board and appreciate recommendations. -Now on HD - secondary to septic shock, ATN vs prerenal vs contrast induced nephropathy - will avoid nephrotoxic agents 7. Diabetes - A1c noted 8. Transaminitis-monitor closely - most likely secondary to hypoperfusion - continue monitoring LFTs - RUQ US noted 9. V-fib cardiac arrest secondary to STEMI - Completed hypothermia protocol - unknown how long patient was down for in the field 10. Disposition - Continue close monitoring in ICU while requiring vent management. -Unfortunately there is not significant improvement, poor prognosis of overall recovery, some mild neurological improvement per nursing staff today. -Palliative care physician to hold family meeting today to determine if patient's family wishes for PEG and trach.. >30 minutes of critical care time spent with patient and family at bedside HARPAL PEDROZA Aug 18, 2018 09:23
--- NOTE | 2018-08-18 10:27 | CONS ---
Assessment/Plan Assessment/Plan Hospital Course (Demo Recall) ID PROGRESS NOTE CURRENT ABX: DAY # => Zosyn #9.5 + Flagyl IV + CIPRO otic gtt S/P Vanco IV 08/18/18 0400 08/18/18 0400 24H INTERVAL SUMMARY * Obese 38 yo F orally intubated, non-communicative without distress on the Ventilator * Mild tachycardia HR 100+ range, WBC elevated today DIAGNOSTIC IMAGING * 08/18/18 CXR: FINDINGS: * The endotracheal tube, nasogastric tube, and right arm PICC line remain in satisfactory position. There is interstitial and alveolar disease bilaterally consistent with pulmonary edema or bilateral multifocal pneumonia. The heart size is normal. There are small bilateral pleural effusions. There is no pneumothorax. * IMPRESSION:1. No significant change from the 08/17/2018 chest radiograph. MICRO/OTHER * Urine culture on admission grew E. coli and Proteus, blood cultures growing oxacillin sensitive staph aureus endotracheal aspirate also growing oxacillin sensitive staph aureus ear drainage preliminary growing staph aureus, repeat blood cultures 3 days ago negative PHYSICAL EXAMINATION: GENERAL: VSS, awake, non-communicative HEENT: AT, NC, anicteric, NECK: Supple, CHEST: Equal chest rise bilaterally, without dyspnea on observation HEART: Pulse RRR ABDOMEN: Soft / NT : FC in place, clear yellow urine EXTREMITIES: Warm, dry SKIN: No rash, no diaphoresis ID ASSESSMENT 38 yo F w/ MORBID OBESITY admit with: 1. Severe sepsis 2. Oxacillin sensitive staph aureus bacteremia 2 to #3 3. Oxacillin sensitive staph aureus pneumonia * 08/09/18 RESPIRATORY CULTURE Final Organism 1 STAPHYLOCOCCUS AUREUS QUANTITY 1+ 4. Polymicrobial UTI * 08/09/18 URINE CX (+) URINE CULTURE Final Organism 1 ESCHERICHIA COLI COLONY COUNT 40,000 - 50,000 CFU/ml Organism 2 PROTEUS MIRABILIS COLONY COUNT 40,000 - 50,000 CFU/ml 5. ST elevation [place]=> CAD, status post stent x2 * Status post V. fib arrest 7. Acute hypoxic respiratory failure 8. Acute Encephalopathy ==> Bilateral CVA per MRI + possibly anoxic brain in jury during cardiac arrest 9. Anemia and thrombocytopenia 10. Acute sinusitis and bilateral mastoiditis * Left auditory canal bleeding = mild * 08/17/18 EAR CX (+) VENU EAR CULTURE Final Organism 1 STAPHYLOCOCCUS AUREUS QUANTITY SCANT GROWTH 11. Acute renal failure, started on hemodialysis 12. Diarrhea, r/o C dif (-)MRSA Nares ABX ALLERGIES: KNDA INVASIVES: ETT, OGT, RUEXT PICC, Femoral Devan CURRENT ABX: DAY # => Zosyn #9.5 + Flagyl IV + CIPRO otic gtt ID RECOMMENDATIONS/PLAN: 1. Continue current ABX 2. Per notes: Prognosis is poor . Consultation Date/Type/Reason Admit Date/Time Aug 04, 2018 at 23:10 Initial Consult Date 08/17/18 Requesting Provider: HARPAL AGGARWAL MD Date/Time of Note DATE: 08/18/18 TIME: 10:05 Exam/Review of Systems Exam Vitals Vital Signs Date Temp Pulse Resp B/P (MAP) Pulse Ox O2 O2 Flow FiO2 Time Delivery Rate 08/18/18 101 32 119/74 100 Mechanical 06:00 (89) Ventilator 08/18/18 80 04:52 08/18/18 98.7 04:00 Intake and Output 08/17/18 08/17/18 08/18/18 1515:00 23:00 07:00 IntakeIntake Total 380 ml 521.25 ml 523 ml OutputOutput Total 2670 ml 20 ml 0 ml BalanceBalance -2290 ml 501.25 ml 523 ml Results Result Diagram: 08/18/18 0400 08/18/18 0400 Results 24hrs Laboratory Tests Test 08/17/18 10:47 08/17/18 18:44 08/17/18 20:30 08/17/18 20:45 Bedside Glucose 132 135 129 Blood Gas Blood arterial Specimen Source Arterial Blood 08/17/2018 8:35:0 Date Drawn 9 PM Arterial Blood pH 7.325 L (Temp corrected) Arterial Blood 57.6 H pCO2 (Temp correct) Arterial Blood 62.3 L pO2 (Temp corrected) Arterial Blood 29.3 H HCO3 Arterial Blood 2.0 Base Excess Arterial Blood 88.8 L Oxygen Saturation Dajuan Test ACCEPTAB Arterial Blood Left Radial Gas Puncture Site Arterial 0.1 Blood Carboxyhemo globin Arterial Blood 0.2 Methemoglobin Blood Gas A-a O2 338.5 H Differential Oxyhemoglobin 88.5 L Percent Blood Gas 37.0 Temperature Blood Gas 20.0 Respiration Rate Blood Gas Actual 20 Respiration Rate Blood Gas VENT - PC Modality FiO2 65.0 Blood Gas 0.85 Inspiratory Time Blood Gas Low 5.0 PEEP Setting Blood Gas 47.0 Inspiratory Pressure Blood Gas UP Notified Whom Blood Gas 08/17/2018 8:48:2 Notified Time 0 PM Test 08/18/18 04:00 08/18/18 09:07 White Blood Count 14.5 H Red Blood Count 3.14 L Hemoglobin 8.6 L Hematocrit 27.8 L Mean Corpuscular 88.5 Volume Mean Corpuscular 27.4 L Hemoglobin Mean Corpuscular 30.9 L Hemoglobin Concen t Red Cell 16.5 H Distribution Width Platelet Count 186 Mean Platelet 13.0 H Volume Immature 1.400 H Granulocytes % Neutrophils % 86.4 H Lymphocytes % 5.9 L Monocytes % 5.6 Eosinophils % 0.4 Basophils % 0.3 Nucleated Red 0.0 Blood Cells % Immature 0.210 H Granulocytes # Neutrophils # 12.5 H Lymphocytes # 0.9 Monocytes # 0.8 Eosinophils # 0.1 Basophils # 0.1 Nucleated Red 0.0 Blood Cells # Sodium Level 139 Potassium Level 4.9 Chloride Level 103 Carbon Dioxide 30 Level Anion Gap 6 Blood Urea 52 H Nitrogen Creatinine 3.23 H Est Glomerular 16 L Filtrat Rate mL/min Glucose Level 136 Calcium Level 8.7 Phosphorus Level 6.9 #H Magnesium Level 2.3 Bedside Glucose 106 Medications Medication Current Medications Norepinephrine 250 ml @ 1.875 mls/ hr TITRATE IV Last administered on 08/10/18 00:41; Admin Dose 5.625 MLS/HR; Start 08/04/18 at 23:15 Ticagrelor (Brilinta) 90 mg BID PO Last administered on 08/17/18 20:16; Admin Dose 90 MG; Start 08/05/18 at 09:00; Status Hold Morphine Sulfate (morphine) 1 mg Q1H PRN IV PAIN Last administered on 08/17/18 18:30; Admin Dose 1 MG; Start 08/04/18 at 23:30 Atorvastatin Calcium (Lipitor) 80 mg DAILY@21 PO Last administered on 08/17/18 20:14; Admin Dose 80 MG; Start 08/05/18 at 21:00 Nitroglycerin/ Dextrose 250 ml @ 1.5 mls/hr TITRATE IV Last administered on 08/05/18 14:22; Admin Dose 72 MLS/HR; Start 08/05/18 at 01:00 Miscellaneous Information 1 ea NOTE XX ; Start 08/05/18 at 09:00 Acetaminophen (Tylenol Supp) 650 mg Q4H PRN [place] TEMP > 37C Last administered on 08/09/18at 04:37; Admin Dose 650 MG; Start 08/05/18 at 11:00 Acetaminophen (Tylenol Liquid) 650 mg Q4H PRN PO TEMP > 37C Last administered on 08/11/18at 11:55; Admin Dose 650 MG; Start 08/05/18 at 11:00 Meperidine HCl (Demerol) 25 mg Q4H PRN IV POST OPERATIVE SHIVERING Last administered on 08/05/18at 16:31; Admin Dose 25 MG; Start 08/05/18 at 11:00 Eye Lubricant (Akwa Oint) 1 applic Q6 BOTH EYES Last administered on 08/18/18 05:06; Admin Dose 1 APPLIC; Start 08/05/18 at 12:00 Eye Lubricant (Artificial Tears Oph) 2 drop Q6 BOTH EYES Last administered on 08/18/18 05:06; Admin Dose 2 DROP; Start 08/05/18 at 12:00 Insulin Human Regular 100 unit/ Sodium Chloride 100 ml @ 0 mls/hr PER PROTOCOL IV ; Start 08/05/18 at 12:00 Miscellaneous Information (* Miscellaneous Pharmacy Order) Treatment of Hypoglycemia: 1.BG 51... Per protocol XX ; Start 08/05/18 at 12:00 Dextrose (D50w Syringe) 25 ml Q15M PRN IV .DECREASED GLUCOSE; Start 08/05/18 at 12:00 Dextrose (D50w Syringe) 50 ml Q15M PRN IV .DECREASED GLUCOSE; Start 08/05/18 at 12:00 Fentanyl 100 ml @ 2.5 mls/hr TITRATE IV Last administered on 08/17/18at 20:44; Admin Dose 5 MLS/HR; Start 08/05/18 at 12:00 Meperidine HCl (Demerol) 12.5 mg Q2H PRN IV POST OPERATIVE SHIVERING; Start 08/05/18 at 17:00 Aspirin (Aspirin) 81 mg DAILY NGT Last administered on 08/18/18at 09:00; Admin Dose 81 MG; Start 08/06/18 at 09:00 Diagnostic Test (Pha) (Accu-Chek) 1 ea Q12 XX Last administered on 08/18/18 09:10; Admin Dose 1 EA; Start 08/06/18 at 21:00 Multivitamins (Multivitamin) 30 ml DAILY NGT Last administered on 08/18/18 09:00; Admin Dose 30 ML; Start 08/09/18 at 09:00 Zinc Sulfate (Zinc Sulfate) 220 mg DAILY NGT Last administered on 08/18/18 09:00; Admin Dose 220 MG; Start 08/09/18 at 09:00 Folic Acid (Folic Acid) 1 mg DAILY NGT Last administered on 08/18/18 09:01; Admin Dose 1 MG; Start 08/09/18 at 09:00 Ascorbic Acid (Vitamin C) 500 mg DAILY NGT Last administered on 08/18/18 09:00; Admin Dose 500 MG; Start 08/09/18 at 09:00 Albuterol (Ventolin Hfa) 4 puff Q6HWA RESP THERAPY INH Last administered on 08/18/18 08:44; Admin Dose 4 PUFF; Start 08/09/18 at 14:00 Ipratropium [place] (Atrovent Hfa) 4 puff Q6H RESP THERAPY INH Last administ ered on 08/18/18 08:44; Admin Dose 4 PUFF; Start 08/09/18 at 14:00 Piperacillin Sod/ Tazobactam Sod 50 ml @ 100 mls/hr Q8 IVPB Last administered on 08/18/18 05:05; Admin Dose 100 MLS/HR; Start 08/10/18 at 14:00 IV Flush (NS 10 ml) 10 ml PRN PRN IV IV PROTOCOL; Start 08/11/18 at 16:30 Lansoprazole (Prevacid) 30 mg 0600,1800 PEG Last administered on 08/18/18 05:05; Admin Dose 30 MG; Start 08/11/18 at 18:28 Heparin Sodium (Porcine) (Heparin (1000 Units/ml)) 3,000 unit PRN PRN CATHETER Dialysis Last administered on 08/17/18 13:36; Admin Dose 3,000 UNIT; Start 08/12/18 at 14:30 Ciprofloxacin HCl (Ciprofloxacin HCl Otic) 5 drop BID LEFT EAR Last administered on 08/18/18 09:09; Admin Dose 5 DROP; Start 08/14/18 at 10:00; Stop 08/20/18 at 21:01 Labetalol HCl (Labetalol) 10 mg Q4H PRN IV ELEVATED SYSTOLIC BP > 180 Last administered on 08/16/18 05:14; Admin Dose 10 MG; Start 08/14/18 at 19:00 Midazolam HCl 50 ml @ 1 mls/hr TITRATE IV Last administered on 08/18/18 02:23; Admin Dose 4 MLS/HR; Start 08/15/18 at 11:00 Hydralazine HCl (Apresoline) 20 mg Q2 PRN IV ELEVATED SYSTOLIC BP Last administered on 08/17/18 18:30; Admin Dose 20 MG; Start 08/16/18 at 08:00 Metronidazole 100 ml @ 100 mls/hr Q8 IVPB Last administered on 08/18/18 05:05; Admin Dose 100 MLS/HR; Start 08/16/18 at 22:00 Carvedilol (Coreg) 12.5 mg Q6H PO Last administered on 08/18/18 05:06; Admin Dose 12.5 MG; Start 08/17/18 at 01:00 Docusate Sodium (Colace Liquid Cup) 100 mg BID GTB Last administered on 08/18/18 09:09; Admin Dose 100 MG; Start 08/18/18 at 09:00 OLIVIA MUNIZ NP Aug 18, 2018 10:16
--- NOTE | 2018-08-18 11:39 | PN ---
Date/Time of Note Date/Time of Note DATE: 08/18/18 TIME: 11:39 Assessment/Plan Lines/Catheters IV Catheter Type (from Nrsg): Aguilar in Place (from Nrsg): Yes Assessment/Plan Assessment/Plan Respiratory failure Awaiting family conference Possible tracheostomy if family is agreeable Subjective 24 Hr Interval Summary Constitutional: improved Pain Control: mild Exam/Review of Systems Vital Signs Vitals Vital Signs Date Temp Pulse Resp B/P (MAP) Pulse Ox O2 O2 Flow FiO2 Time Delivery Rate 08/18/18 115 20 130/86 100 11:00 (101) 08/18/18 99.0 08:00 08/18/18 Mechanical 07:00 Ventilator 08/18/18 80 04:52 Intake and Output 08/17/18 08/17/18 08/18/18 1515:00 23:00 07:00 IntakeIntake Total 380 ml 521.25 ml 523 ml OutputOutput Total 2670 ml 20 ml 0 ml BalanceBalance -2290 ml 501.25 ml 523 ml Exam Eyes: nl conjunctiva, EOMI, nl lids, nl sclera ENMT: nl external ears & nose, nl lips & teeth, nl nasal mucosa & septum, mucosa pink and moist Neck: supple, non-tender Respiratory: clear to auscultation, normal air movement Cardiovascular: regular rate and rhythm, nl pulses Gastrointestinal: soft, nl liver, spleen, non-tender Musculoskeletal: nl extremities to inspection, nl gait and stance Results Result Diagram: 08/18/18 0400 08/18/18 0400 KRISTOFER BAKER MD Aug 18, 2018 11:39
--- NOTE | 2018-08-18 13:20 | CONS ---
Consult Date/Type/Reason Admit Date/Time Aug 04, 2018 at 23:10 Initial Consult Date 08/05/18 Type of Consultation: cv Requesting Provider: HARPAL AGGARWAL MD Date/Time of Note DATE: 08/18/18 TIME: 13:18 Subjective Interventional cardiology follow-up progress note/critical care Subjective: Events noted discussed with the staff and physicians. Patient remains intubated on the vent and remains nonresponsive in ICU but according to RN pt has had some response to her commands No V tachycardia or V fibrillation. BP is stable/high off of pressors. more significant oral and nasopharyngeal bleeding noted today events noted s/p PCI 100% occluded LAD 08/04 S/P PCI LCX/ OM Objective: General: Obese female started with intubation on the vent HEENT: NC/AT. pupils are equal. round. NECK: . no stridor. CV: RRR. systolic murmur; no gallop or rubs. PULM: no wheezing + diffuse rhonchi. GI: Obese SOFT, NT, ND, no rebound or guarding Extremity: +B/L LE edema. no clubbing. neuro: Sedated Psych: Calm now rectal: deferred EKG August 06, 2018 was personally within normal sinus rhythm. T wave inversions anterior and inferior leads ECG 08/07: NSR ST T abn c/w ant/lat ischemia CXR 08/14: Nonspecific patchy bilateral pulmonary opacity, mildly improved on the right. No pneumothorax. Endotracheal tube, nasogastric tube, and right-sided PICC line remain in place. Stable mild cardiomegaly. The osseous structures are remarkable for degenerative enthesopathy of the spine. Chest x-ray done August 06 shows:No evidence for active cardiopulmonary disease. ECHO personally reviewed Normal left ventricular cavity size. Normal left ventricular wall thickness. Ejection fraction is visually estimated at 55-65 %. Normal appearance of the mitral valve. Mitral valve is not well visualized. No mitral valve regurgitation is seen. Aortic valve not well visualized. No aortic regurgitation. Normal appearance of the tricuspid valve. Unable to obtain RVSP due to minimal presence of tricuspid regurgitation. No evidence of tricuspid regurgitation. Normal pericardium with no significant pericardial effusion. suboptimal study. Objective Vitals Vital Signs Date Temp Pulse Resp B/P (MAP) Pulse Ox O2 O2 Flow FiO2 Time Delivery Rate 08/18/18 110 12:00 08/18/18 20 130/86 100 11:00 (101) 08/18/18 99.0 08:00 08/18/18 80 08:00 08/18/18 Mechanical 07:00 Ventilator Intake and Output 08/17/18 08/17/18 08/18/18 1515:00 23:00 07:00 IntakeIntake Total 380 ml 521.25 ml 523 ml OutputOutput Total 2670 ml 20 ml 0 ml BalanceBalance -2290 ml 501.25 ml 523 ml Results/Medications Result Diagram: 08/18/18 0400 08/18/18 0400 Results 24 hrs Laboratory Tests Test 08/17/18 18:44 08/17/18 20:30 08/17/18 20:45 08/18/18 04:00 Bedside Glucose 135 129 Blood Gas Blood arterial Specimen Source Arterial Blood 08/17/2018 8:35:0 Date Drawn 9 PM Arterial Blood pH 7.325 L (Temp corrected) Arterial Blood 57.6 H pCO2 (Temp correct) Arterial Blood 62.3 L pO2 (Temp corrected) Arterial Blood 29.3 H HCO3 Arterial Blood 2.0 Base Excess Arterial Blood 88.8 L Oxygen Saturation Dajuan Test ACCEPTAB Arterial Blood Left Radial Gas Puncture Site Arterial 0.1 Blood Carboxyhemo globin Arterial Blood 0.2 Methemoglobin Blood Gas A-a O2 338.5 H Differential Oxyhemoglobin 88.5 L Percent Blood Gas 37.0 Temperature Blood Gas 20.0 Respiration Rate Blood Gas Actual 20 Respiration Rate Blood Gas VENT - PC Modality FiO2 65.0 Blood Gas 0.85 Inspiratory Time Blood Gas Low 5.0 PEEP Setting Blood Gas 47.0 Inspiratory Pressure Blood Gas UP Notified Whom Blood Gas 08/17/2018 8:48:2 Notified Time 0 PM White Blood Count 14.5 H Red Blood Count 3.14 L Hemoglobin 8.6 L Hematocrit 27.8 L Mean Corpuscular 88.5 Volume Mean Corpuscular 27.4 L Hemoglobin Mean Corpuscular 30.9 L Hemoglobin Concen t Red Cell 16.5 H Distribution Width Platelet Count 186 Mean Platelet 13.0 H Volume Immature 1.400 H Granulocytes % Neutrophils % 86.4 H Lymphocytes % 5.9 L Monocytes % 5.6 Eosinophils % 0.4 Basophils % 0.3 Nucleated Red 0.0 Blood Cells % Immature 0.210 H Granulocytes # Neutrophils # 12.5 H Lymphocytes # 0.9 Monocytes # 0.8 Eosinophils # 0.1 Basophils # 0.1 Nucleated Red 0.0 Blood Cells # Sodium Level 139 Potassium Level 4.9 Chloride Level 103 Carbon Dioxide 30 Level Anion Gap 6 Blood Urea 52 H Nitrogen Creatinine 3.23 H Est Glomerular 16 L Filtrat Rate mL/min Glucose Level 136 Calcium Level 8.7 Phosphorus Level 6.9 #H Magnesium Level 2.3 Test 08/18/18 09:07 Bedside Glucose 106 Medications Current Medications Norepinephrine 250 ml @ 1.875 mls/ hr TITRATE IV Last administered on 08/10/18 t 00:41; Admin Dose 5.625 MLS/HR; Start 08/04/18 at 23:15 Ticagrelor (Brilinta) 90 mg BID PO Last administered on 08/17/18 20:16; Admin Dose 90 MG; Start 08/05/18 at 09:00; Status Hold Morphine Sulfate (morphine) 1 mg Q1H PRN IV PAIN Last administered on 08/17/18 18:30; Admin Dose 1 MG; Start 08/04/18 at 23:30 Atorvastatin Calcium (Lipitor) 80 mg DAILY@21 PO Last administered on 08/17/18 20:14; Admin Dose 80 MG; Start 08/05/18 at 21:00 Nitroglycerin/ Dextrose 250 ml @ 1.5 mls/hr TITRATE IV Last administered on 08/05/18 14:22; Admin Dose 72 MLS/HR; Start 08/05/18 at 01:00 Miscellaneous Information 1 ea NOTE XX ; Start 08/05/18 at 09:00 Acetaminophen (Tylenol Supp) 650 mg Q4H PRN [place] TEMP > 37C Last administered on 08/09/18 04:37; Admin Dose 650 MG; Start 08/05/18 at 11:00 Acetaminophen (Tylenol Liquid) 650 mg Q4H PRN PO TEMP > 37C Last administered on 08/11/18 11:55; Admin Dose 650 MG; Start 08/05/18 at 11:00 Meperidine HCl (Demerol) 25 mg Q4H PRN IV POST OPERATIVE SHIVERING Last administered on 08/05/18 16:31; Admin Dose 25 MG; Start 08/05/18 at 11:00 Eye Lubricant (Akwa Oint) 1 applic Q6 BOTH EYES Last administered on 08/18/18 11:56; Admin Dose 1 APPLIC; Start 08/05/18 at 12:00 Eye Lubricant (Artificial Tears Oph) 2 drop Q6 BOTH EYES Last administered on 08/18/18 11:56; Admin Dose 2 DROP; Start 08/05/18 at 12:00 Insulin Human Regular 100 unit/ Sodium Chloride 100 ml @ 0 mls/hr PER PROTOCOL IV ; Start 08/05/18 at 12:00 Miscellaneous Information (* Miscellaneous Pharmacy Order) Treatment of Hypoglycemia: 1.BG 51... Per protocol XX ; Start 08/05/18 at 12:00 Dextrose (D50w Syringe) 25 ml Q15M PRN IV .DECREASED GLUCOSE; Start 08/05/18 at 12:00 Dextrose (D50w Syringe) 50 ml Q15M PRN IV .DECREASED GLUCOSE; Start 08/05/18 at 12:00 Fentanyl 100 ml @ 2.5 mls/hr TITRATE IV Last administered on 08/17/18 20:44; Admin Dose 5 MLS/HR; Start 08/05/18 at 12:00 Meperidine HCl (Demerol) 12.5 mg Q2H PRN IV POST OPERATIVE SHIVERING; Start 08/05/18 at 17:00 Aspirin (Aspirin) 81 mg DAILY NGT Last administered on 08/18/18 09:00; Admin Dose 81 MG; Start 08/06/18 at 09:00 Diagnostic Test (Pha) (Accu-Chek) 1 ea Q12 XX Last administered on 08/18/18 09:10; Admin Dose 1 EA; Start 08/06/18 at 21:00 Multivitamins (Multivitamin) 30 ml DAILY NGT Last administered on 08/18/18 09:00; Admin Dose 30 ML; Start 08/09/18 at 09:00 Zinc Sulfate (Zinc Sulfate) 220 mg DAILY NGT Last administered on 08/18/18 09:00; Admin Dose 220 MG; Start 08/09/18 at 09:00 Folic Acid (Folic Acid) 1 mg DAILY NGT Last administered on 08/18/18 09:01; Admin Dose 1 MG; Start 08/09/18 at 09:00 Ascorbic Acid (Vitamin C) 500 mg DAILY NGT Last administered on 08/18/18 09:00; Admin Dose 500 MG; Start 08/09/18 at 09:00 Albuterol (Ventolin Hfa) 4 puff Q6HWA RESP THERAPY INH Last administered on 08/18/18 08:44; Admin Dose 4 PUFF; Start 08/09/18 at 14:00 Ipratropium [place] (Atrovent Hfa) 4 puff Q6H RESP THERAPY INH Last administered on 08/18/18 08:44; Admin Dose 4 PUFF; Start 08/09/18 at 14:00 Piperacillin Sod/ Tazobactam Sod 50 ml @ 100 mls/hr Q8 IVPB Last administered on 08/18/18 05:05; Admin Dose 100 MLS/HR; Start 08/10/18 at 14:00 IV Flush (NS 10 ml) 10 ml PRN PRN IV IV PROTOCOL; Start 08/11/18 at 16:30 Lansoprazole (Prevacid) 30 mg 0600,1800 PEG Last administered on 08/18/18 05:05; Admin Dose 30 MG; Start 08/11/18 at 18:28 Heparin Sodium (Porcine) (Heparin (1000 Units/ml)) 3,000 unit PRN PRN CATHETER Dialysis Last administered on 08/17/18 13:36; Admin Dose 3,000 UNIT; Start 08/12/18 at 14:30 Ciprofloxacin HCl (Ciprofloxacin HCl Otic) 5 drop BID LEFT EAR Last administered on 08/18/18 09:09; Admin Dose 5 DROP; Start 08/14/18 at 10:00; Stop 08/20/18 at 21:01 Labetalol HCl (Labetalol) 10 mg Q4H PRN IV ELEVATED SYSTOLIC BP > 180 Last administered on 08/16/18 05:14; Admin Dose 10 MG; Start 08/14/18 at 19:00 Midazolam HCl 50 ml @ 1 mls/hr TITRATE IV Last administered on 08/18/18 02:23; Admin Dose 4 MLS/HR; Start 08/15/18 at 11:00 Hydralazine HCl (Apresoline) 20 mg Q2 PRN IV ELEVATED SYSTOLIC BP Last administered on 08/17/18 18:30; Admin Dose 20 MG; Start 08/16/18 at 08:00 Metronidazole 100 ml @ 100 mls/hr Q8 IVPB Last administered on 08/18/18 05:05; Admin Dose 100 MLS/HR; Start 08/16/18 at 22:00 Carvedilol (Coreg) 12.5 mg Q6H PO Last administered on 08/18/18 05:06; Admin Dose 12.5 MG; Start 08/17/18 at 01:00 Docusate Sodium (Colace Liquid Cup) 100 mg BID GTB Last administered on 08/18/18 09:09; Admin Dose 100 MG; Start 08/18/18 at 09:00 Assessment/Plan Hospital Course (Demo Recall) 1. s/p V. fib cardiac arrest 2. Acute myocardial infarction 3. Status post emergent PCI of the 100% occluded LAD as well as PTCA of the diagonal 4. Diabetes 5. Respiratory failure status post intubation on the vent 6. Hypertension 7. Renal failure : acute on chronic 8. Likely history of congestive heart failure 9. Dyslipidemia 10. Encephalopathy: Clear anoxic brain injury on hypothermia protocol 11. Morbid obesity 12. Anemia 13. elevated LFT 14. fever, bacteremia pneumonia 15. Malnutrition, anasarca . 16. septic shock and bacteremia 17. Diarrhea rule out C. difficile 18. CVA Recommendations: Continue with aspirin will change Brilinta to plavix due to recurrent oropharyngeal bleeding as well as patient currently with renal failure on dialysis. Antibiotic management as per ID recommendation HD as per renal Vent support respiratory care as per internal medicine and pulmonary consult ants. Increase Coreg as tolerated/needed Monitor renal function. f/u renal consult rec regarding hemodialysis PPI . Transfusion prn given her severe anemia and GA/ VF allow for permissive HTN. More than 34 minutes of critical care time was for management treatment is critically patient excluding any procedures Thank you for his referral. We will continue to follow along with you LOIS JOHNSON MD [facility] LOIS JOHNSON MD Aug 18, 2018 13:20
[2018-08-18] MEDS: CLOPIDOGREL 75 MG TAB NGT SCH (14:04)
[2018-08-18] MEDS: FENTAnyl (DRIP) 1000 mcg/100mL 100 ML IV SCH (14:10)
--- NOTE | 2018-08-18 16:42 | PN ---
Date/Time of Note Date/Time of Note DATE: 08/18/18 TIME: 16:33 Assessment/Plan VTE Prophylaxis Risk score (from Ns)>0 risk: 10 SCD applied (from Ns): Yes Pharmacological prophylaxis: heparin Lines/Catheters IV Catheter Type (from Nrsg): Urinary Cath still in place: Yes Reason Cath still needed: skin wounds contaminated by urine Assessment/Plan Assessment/Plan Assessment: Dysphagia Status post cardiac arrest Respiratory failure Sepsis -on levophed Abnormal MRI of the brain Status post cardiac catheterization with stents Acute kidney injuryon hemodialysis Obesity Hypertension Plan: Family meeting today but no definite decision regarding need for PEG placement. Possible PEG placement on Monday. Will follow up tomorrow on family decision. Patient seen in collaboration with Subjective: Comfortable appearing in ICU, intubated and sedated. Plan discussed with nurse. No other acute overnight events. Family to decide tomorrow on further interventions. PHYSICAL EXAMINATION: GENERAL: Well developed, obese, intubated, on the ventilator, in no acute distress SKIN: No lesions, no stigmata chronic liver disease, no evidence of bleeding diathesis LYMPHATIC: No palpable lymphadenopathy. HEAD: Normocephalic, atraumatic, no tenderness. EYES: Pupils equal reactive to light and accommodation, full extraocular movements, sclera clear, non-icteric, no discharge. EARS/NOSE AND THROAT: Ears normal, nose normal, oropharynx normal, oral membranes well hydrated without lesions. OG tube in place with continuous feeding NECK: Supple, no masses, thyroid normal, JVP within normal limits, carotids normal without bruits. CHEST: Inspection within normal limits. CARDIOVASCULAR: Heart: Regular rate and rhythm, no murmurs, gallops or rubs. Peripheral pulses present within normal limits, no cyanosis, clubbing or edemas. No pulsatile abdominal mass RESPIRATORY: Lungs clear to auscultation and percussion, no wheezing, no rubs GASTROINTESTINAL AND LIVER: Abdomen: Soft, non tenderness, non-distended, no hernias, no masses, no organomegaly, no ascites, no guarding, no rebound tenderness, normoactive bowel sounds. Rectal: Deferred. GENITOURINARY: Female genitalia within normal limits. Rectal tube in place EXTREMITIES: No cyanosis, generalized edema. Result Diagram: 08/18/18 0400 08/18/18 0400 Results 24hrs Laboratory Tests Test 08/17/18 18:44 08/17/18 20:30 08/17/18 20:45 08/18/18 04:00 Bedside Glucose 135 129 Blood Gas Blood arterial Specimen Source Arterial Blood 08/17/2018 8:35:0 Date Drawn 9 PM Arterial Blood pH 7.325 L (Temp corrected) Arterial Blood 57.6 H pCO2 (Temp correct) Arterial Blood 62.3 L pO2 (Temp corrected) Arterial Blood 29.3 H HCO3 Arterial Blood 2.0 Base Excess Arterial Blood 88.8 L Oxygen Saturation Dajuan Test ACCEPTAB Arterial Blood Left Radial Gas Puncture Site Arterial 0.1 Blood Carboxyhemo globin Arterial Blood 0.2 Methemoglobin Blood Gas A-a O2 338.5 H Differential Oxyhemoglobin 88.5 L Percent Blood Gas 37.0 Temperature Blood Gas 20.0 Respiration Rate Blood Gas Actual 20 Respiration Rate Blood Gas VENT - PC Modality FiO2 65.0 Blood Gas 0.85 Inspiratory Time Blood Gas Low 5.0 PEEP Setting Blood Gas 47.0 Inspiratory Pressure Blood Gas UP Notified Whom Blood Gas 08/17/2018 8:48:2 Notified Time 0 PM White Blood Count 14.5 H Red Blood Count 3.14 L Hemoglobin 8.6 L Hematocrit 27.8 L Mean Corpuscular 88.5 Volume Mean Corpuscular 27.4 L Hemoglobin Mean Corpuscular 30.9 L Hemoglobin Concen t Red Cell 16.5 H Distribution Width Platelet Count 186 Mean Platelet 13.0 H Volume Immature 1.400 H Granulocytes % Neutrophils % 86.4 H Lymphocytes % 5.9 L Monocytes % 5.6 Eosinophils % 0.4 Basophils % 0.3 Nucleated Red 0.0 Blood Cells % Immature 0.210 H Granulocytes # Neutrophils # 12.5 H Lymphocytes # 0.9 Monocytes # 0.8 Eosinophils # 0.1 Basophils # 0.1 Nucleated Red 0.0 Blood Cells # Sodium Level 139 Potassium Level 4.9 Chloride Level 103 Carbon Dioxide 30 Level Anion Gap 6 Blood Urea 52 H Nitrogen Creatinine 3.23 H Est Glomerular 16 L Filtrat Rate mL/min Glucose Level 136 Calcium Level 8.7 Phosphorus Level 6.9 #H Magnesium Level 2.3 Test 08/18/18 09:07 Bedside Glucose 106 CC: PATSY HI ; Exam/Review of Systems Exam Vitals Vital Signs Date Temp Pulse Resp B/P (MAP) Pulse Ox O2 O2 Flow FiO2 Time Delivery Rate 08/18/18 108 16:20 08/18/18 35 120/83 97 Mechanical 14:35 (95) Ventilator 08/18/18 99.0 12:00 08/18/18 80 08:00 Intake and Output 08/17/18 08/17/18 08/18/18 1515:00 23:00 07:00 IntakeIntake Total 380 ml 521.25 ml 572 ml OutputOutput Total 2670 ml 20 ml 0 ml BalanceBalance -2290 ml 501.25 ml 572 ml Results Results 24hrs Laboratory Tests Test 08/17/18 18:44 08/17/18 20:30 08/17/18 20:45 08/18/18 04:00 Bedside Glucose 135 129 Blood Gas Blood arterial Specimen Source Arterial Blood 08/17/2018 8:35:0 Date Drawn 9 PM Arterial Blood pH 7.325 L (Temp corrected) Arterial Blood 57.6 H pCO2 (Temp correct) Arterial Blood 62.3 L pO2 (Temp corrected) Arterial Blood 29.3 H HCO3 Arterial Blood 2.0 Base Excess Arterial Blood 88.8 L Oxygen Saturation Dajuan Test ACCEPTAB Arterial Blood Left Radial Gas Puncture Site Arterial 0.1 Blood Carboxyhemo globin Arterial Blood 0.2 Methemoglobin Blood Gas A-a O2 338.5 H Differential Oxyhemoglobin 88.5 L Percent Blood Gas 37.0 Temperature Blood Gas 20.0 Respiration Rate Blood Gas Actual 20 Respiration Rate Blood Gas VENT - PC Modality FiO2 65.0 Blood Gas 0.85 Inspiratory Time Blood Gas Low 5.0 PEEP Setting Blood Gas 47.0 Inspiratory Pressure Blood Gas UP Notified Whom Blood Gas 08/17/2018 8:48:2 Notified Time 0 PM White Blood Count 14.5 H Red Blood Count 3.14 L Hemoglobin 8.6 L Hematocrit 27.8 L Mean Corpuscular 88.5 Volume Mean Corpuscular 27.4 L Hemoglobin Mean Corpuscular 30.9 L Hemoglobin Concen t Red Cell 16.5 H Distribution Width Platelet Count 186 Mean Platelet 13.0 H Volume Immature 1.400 H Granulocytes % Neutrophils % 86.4 H Lymphocytes % 5.9 L Monocytes % 5.6 Eosinophils % 0.4 Basophils % 0.3 Nucleated Red 0.0 Blood Cells % Immature 0.210 H Granulocytes # Neutrophils # 12.5 H Lymphocytes # 0.9 Monocytes # 0.8 Eosinophils # 0.1 Basophils # 0.1 Nucleated Red 0.0 Blood Cells # Sodium Level 139 Potassium Level 4.9 Chloride Level 103 Carbon Dioxide 30 Level Anion Gap 6 Blood Urea 52 H Nitrogen Creatinine 3.23 H Est Glomerular 16 L Filtrat Rate mL/min Glucose Level 136 Calcium Level 8.7 Phosphorus Level 6.9 #H Magnesium Level 2.3 Test 08/18/18 09:07 Bedside Glucose 106 Medications Medication Current Medications Norepinephrine 250 ml @ 1.875 mls/ hr TITRATE IV Last administered on 08/10/18 00:41; Admin Dose 5.625 MLS/HR; Start 08/04/18 at 23:15 Morphine Sulfate (morphine) 1 mg Q1H PRN IV PAIN Last administered on 08/17/18 18:30; Admin Dose 1 MG; Start 08/04/18 at 23:30 Atorvastatin Calcium (Lipitor) 80 mg DAILY@21 PO Last administered on 08/17/18 20:14; Admin Dose 80 MG; Start 08/05/18 at 21:00 Nitroglycerin/ Dextrose 250 ml @ 1.5 mls/hr TITRATE IV Last administered on 08/05/18 14:22; Admin Dose 72 MLS/HR; Start 08/05/18 at 01:00 Miscellaneous Information 1 ea NOTE XX ; Start 08/05/18 at 09:00 Acetaminophen (Tylenol Supp) 650 mg Q4H PRN [place] TEMP > 37C Last administered on 08/09/18 04:37; Admin Dose 650 MG; Start 08/05/18 at 11:00 Acetaminophen (Tylenol Liquid) 650 mg Q4H PRN PO TEMP > 37C Last administered on 08/11/18 11:55; Admin Dose 650 MG; Start 08/05/18 at 11:00 Meperidine HCl (Demerol) 25 mg Q4H PRN IV POST OPERATIVE SHIVERING Last administered on 08/05/18 16:31; Admin Dose 25 MG; Start 08/05/18 at 11:00 Eye Lubricant (Akwa Oint) 1 applic Q6 BOTH EYES Last administered on 08/18/18 11:56; Admin Dose 1 APPLIC; Start 08/05/18 at 12:00 Eye Lubricant (Artificial Tears Oph) 2 drop Q6 BOTH EYES Last administered on 08/18/18 11:56; Admin Dose 2 DROP; Start 08/05/18 at 12:00 Insulin Human Regular 100 unit/ Sodium Chloride 100 ml @ 0 mls/hr PER PROTOCOL IV ; Start 08/05/18 at 12:00 Miscellaneous Information (* Miscellaneous Pharmacy Order) Treatment of Hypoglycemia: 1.BG 51... Per protocol XX ; Start 08/05/18 at 12:00 Dextrose (D50w Syringe) 25 ml Q15M PRN IV .DECREASED GLUCOSE; Start 08/05/18 at 12:00 Dextrose (D50w Syringe) 50 ml Q15M PRN IV .DECREASED GLUCOSE; Start 08/05/18 at 12:00 Fentanyl 100 ml @ 2.5 mls/hr TITRATE IV Last administered on 08/18/18 14:10; Admin Dose 7 MLS/HR; Start 08/05/18 at 12:00 Meperidine HCl (Demerol) 12.5 mg Q2H PRN IV POST OPERATIVE SHIVERING; Start 08/05/18 at 17:00 Aspirin (Aspirin) 81 mg DAILY NGT Last administered on 08/18/18 09:00; Admin Dose 81 MG; Start 08/06/18 at 09:00 Diagnostic Test (Pha) (Accu-Chek) 1 ea Q12 XX Last administered on 08/18/18 09:10; Admin Dose 1 EA; Start 08/06/18 at 21:00 Multivitamins (Multivitamin) 30 ml DAILY NGT Last administered on 08/18/18 09:00; Admin Dose 30 ML; Start 08/09/18 at 09:00 Zinc Sulfate (Zinc Sulfate) 220 mg DAILY NGT Last administered on 08/18/18 09:00; Admin Dose 220 MG; Start 08/09/18 at 09:00 Folic Acid (Folic Acid) 1 mg DAILY NGT Last administered on 08/18/18 09:01; Admin Dose 1 MG; Start 08/09/18 at 09:00 Ascorbic Acid (Vitamin C) 500 mg DAILY NGT Last administered on 08/18/18 09:00; Admin Dose 500 MG; Start 08/09/18 at 09:00 Albuterol (Ventolin Hfa) 4 puff Q6HWA RESP THERAPY INH Last administered on 08/18/18 13:37; Admin Dose 4 PUFF; Start 08/09/18 at 14:00 Ipratropium [place] (Atrovent Hfa) 4 puff Q6H RESP THERAPY INH Last administered on 08/18/18 13:37; Admin Dose 4 PUFF; Start 08/09/18 at 14:00 Piperacillin Sod/ Tazobactam Sod 50 ml @ 100 mls/hr Q8 IVPB Last administered on 08/18/18 14:04; Admin Dose 100 MLS/HR; Start 08/10/18 at 14:00 IV Flush (NS 10 ml) 10 ml PRN PRN IV IV PROTOCOL; Start 08/11/18 at 16:30 Lansoprazole (Prevacid) 30 mg 0600,1800 PEG Last administered on 08/18/18 05:05; Admin Dose 30 MG; Start 08/11/18 at 18:28 Heparin Sodium (Porcine) (Heparin (1000 Units/ml)) 3,000 unit PRN PRN CATHETER Dialysis Last administered on 08/17/18 13:36; Admin Dose 3,000 UNIT; Start 08/12/18 at 14:30 Ciprofloxacin HCl (Ciprofloxacin HCl Otic) 5 drop BID LEFT EAR Last administered on 08/18/18 09:09; Admin Dose 5 DROP; Start 08/14/18 at 10:00; Stop 08/20/18 at 21:01 Labetalol HCl (Labetalol) 10 mg Q4H PRN IV ELEVATED SYSTOLIC BP > 180 Last administered on 08/16/18 05:14; Admin Dose 10 MG; Start 08/14/18 at 19:00 Midazolam HCl 50 ml @ 1 mls/hr TITRATE IV Last administered on 08/18/18 02:23; Admin Dose 4 MLS/HR; Start 08/15/18 at 11:00 Hydralazine HCl (Apresoline) 20 mg Q2 PRN IV ELEVATED SYSTOLIC BP Last administered on 08/17/18 18:30; Admin Dose 20 MG; Start 08/16/18 at 08:00 Metronidazole 100 ml @ 100 mls/hr Q8 IVPB Last administered on 08/18/18 14:05; Admin Dose 100 MLS/HR; Start 08/16/18 at 22:00 Carvedilol (Coreg) 12.5 mg Q6H PO Last administered on 3/30/19at 05:06; Admin Dose 12.5 MG; Start 08/17/18 at 01:00 Docusate Sodium (Colace Liquid Cup) 100 mg BID GTB Last administered on 08/18/18at 09:09; Admin Dose 100 MG; Start 08/18/18 at 09:00 Clopidogrel Bisulfate (plaVIX) 75 mg DAILY NGT Last administered on 08/18/18at 14:04; Admin Dose 75 MG; Start 08/18/18 at 13:30 NICKI GARZA NP Aug 18, 2018 16:42
[2018-08-18] MEDS: HEPARIN 1000 UNITS/ML 10 ML INJ CATHETER PRN (17:48)
[2018-08-18] MEDS: ATORVASTATIN 80 MG TAB PO SCH (21:34)
[2018-08-18] MEDS: ACETAMINOPHEN 650MG/20.3ML CUP PO PRN (23:17)
[2018-08-19] VITALS (51 sets, daily range): BP systolic 87–156; BP diastolic 54–105; PULSE 98–122; RESP 14–41
[2018-08-19] MEDS: IPRATROPIUM (HFA) 12.9 GM INHALER INH SCH ×4 (02:18→20:45)
[2018-08-19] MEDS: LANSOPRAZOLE 30 MG CAP PEG SCH ×2 (05:28→18:42)
[2018-08-19] MEDS: PIPER-TAZO 2.25 GM/NS 50 ML IVPB SCH (05:28)
[2018-08-19] MEDS: metroNIDAZOLE 500 MG/NS (PMX) 100 ML IVPB SCH ×3 (05:28→23:17)
[2018-08-19] MEDS: OCULAR LUBRICANT 3.5 GM OPH OINT BOTH EYES SCH ×3 (05:28→18:42)
[2018-08-19] MEDS: ARTIFICIAL TEARS 15 ML OPH BOTH EYES SCH ×3 (05:28→18:42)
--- NOTE | 2018-08-19 07:15 | PN ---
Date/Time of Note Date/Time of Note DATE: 08/19/18 TIME: 07:14 Assessment/Plan VTE Prophylaxis Risk score (from Nsg)>0 risk: 10 SCD applied (from Nsg): Yes Pharmacological prophylaxis: other Lines/Catheters IV Catheter Type (from Nrsg): PICC Line Central line still needed: Yes Urinary Cath still in place: Yes Reason Cath still needed: urinary retention Assessment/Plan Hospital Course renal follow up SUBJECTIVE: The patient remains critically ill. The patient is on full ventilator support. The patient has been receiving daily dialysis for solute clearance, volume removal. No other events noted. last treatment was yesterday OBJECTIVE: HEENT: Head is normocephalic. NECK: Supple. HEART: Regular rate. LUNGS: Show diminished breath sounds at the base. ABDOMEN: Soft, obese, nontender to palpation without rebound or guarding. EXTREMITIES: Negative for clubbing, cyanosis. Positive edema. DERMATOLOGIC: No rashes. MUSCULOSKELETAL: No joint effusions. NEUROLOGIC: No change in exam. MEDICATIONS: The patient's medications have been reviewed. LABORATORY DATA: Has been reviewed. IMAGING STUDIES: Have been reviewed. ASSESSMENT AND PLAN: 1. Anuric acute kidney injury with previously normal baseline creatinine. Etiology of acute kidney injury is secondary to acute tubular necrosis due to shock, contrast-associated nephropathy, sepsis. The patient was started on dialysis for solute clearance and volume removal. Will anticipate dialysis again in am. of ft today 2. Ventilatory dependent respiratory failure. Vent settings and ABG was reviewed. Continue to monitor. 3. Cardiac arrest/ST elevated myocardial infarction. The patient is status post cardiac catheterization with multiple stent placements. Continue medical management. Follow up with cardiology. 4. Mineral bone disorder, monitor calcium and phosphatase levels. 5. Volume overload. Patient has noted lower extremity edema, pulmonary congestion. Continue ultrafiltration dialysis. 6. Sepsis, status post shock secondary to pneumonia, bacteremia. Patient is completing antibiotic course. 7. Metabolic acidosis, improved. Continue to monitor. 8. Anemia. Monitor hemoglobin and hematocrit levels. 9. Acute encephalopathy. Etiology is secondary to anoxic injury and acute cerebrovascular accident. The patient's MRI was reviewed. Continue to monitor. Follow up with urology. 10. Gastrointestinal and deep venous thrombosis prophylaxis. Result Diagram: 08/19/18 0434 08/19/18 0434 Results 24hrs Laboratory Tests Test 08/18/18 09:07 08/18/18 21:37 08/19/18 04:34 Bedside Glucose 106 142 White Blood Count 17.2 H Red Blood Count 3.14 L Hemoglobin 8.6 L Hematocrit 28.6 L Mean Corpuscular Volume 91.1 Mean Corpuscular Hemoglobin 27.4 L Mean Corpuscular Hemoglobin Concent 30.1 L Red Cell Distribution Width 16.6 H Platelet Count 264 # Mean Platelet Volume 13.9 H Immature Granulocytes % 1.500 H Neutrophils % 78.0 H Lymphocytes % 11.0 L Monocytes % 7.5 Eosinophils % 1.5 Basophils % 0.5 Nucleated Red Blood Cells % 0.0 Immature Granulocytes # 0.250 H Neutrophils # 13.4 H Lymphocytes # 1.9 Monocytes # 1.3 H Eosinophils # 0.3 Basophils # 0.1 Nucleated Red Blood Cells # 0.0 Sodium Level 139 Potassium Level 4.9 Chloride Level 100 Carbon Dioxide Level 28 Anion Gap 11 Blood Urea Nitrogen 52 H Creatinine 3.16 H Est Glomerular Filtrat Rate mL/min 16 L Glucose Level 125 Calcium Level 8.9 Phosphorus Level 5.5 H Magnesium Level 2.2 Exam/Review of Systems Exam Vitals Vital Signs Date Temp Pulse Resp B/P (MAP) Pulse Ox O2 O2 Flow FiO2 Time Delivery Rate 08/19/18 109 36 100/61 100 06:00 (74) 08/19/18 55 04:42 08/19/18 98.8 04:00 08/19/18 Mechanical 03:00 Ventilator Intake and Output 08/18/18 08/18/18 08/19/18 1515:00 23:00 07:00 IntakeIntake Total 689 ml 502 ml 661 ml OutputOutput Total 0 ml 4500 ml 50 ml BalanceBalance 689 ml -3998 ml 611 ml Results Results 24hrs Laboratory Tests Test 08/18/18 09:07 08/18/18 21:37 08/19/18 04:34 Bedside Glucose 106 142 White Blood Count 17.2 H Red Blood Count 3.14 L Hemoglobin 8.6 L Hematocrit 28.6 L Mean Corpuscular Volume 91.1 Mean Corpuscular Hemoglobin 27.4 L Mean Corpuscular Hemoglobin Concent 30.1 L Red Cell Distribution Width 16.6 H Platelet Count 264 # Mean Platelet Volume 13.9 H Immature Granulocytes % 1.500 H Neutrophils % 78.0 H Lymphocytes % 11.0 L Monocytes % 7.5 Eosinophils % 1.5 Basophils % 0.5 Nucleated Red Blood Cells % 0.0 Immature Granulocytes # 0.250 H Neutrophils # 13.4 H Lymphocytes # 1.9 Monocytes # 1.3 H Eosinophils # 0.3 Basophils # 0.1 Nucleated Red Blood Cells # 0.0 Sodium Level 139 Potassium Level 4.9 Chloride Level 100 Carbon Dioxide Level 28 Anion Gap 11 Blood Urea Nitrogen 52 H Creatinine 3.16 H Est Glomerular Filtrat Rate mL/min 16 L Glucose Level 125 Calcium Level 8.9 Phosphorus Level 5.5 H Magnesium Level 2.2 Medications Medication Current Medications Norepinephrine 250 ml @ 1.875 mls/ hr TITRATE IV Last administered on 08/10/18 00:41; Admin Dose 5.625 MLS/HR; Start 08/04/18 at 23:15 Morphine Sulfate (morphine) 1 mg Q1H PRN IV PAIN Last administered on 08/17/18 18:30; Admin Dose 1 MG; Start 08/04/18 at 23:30 Atorvastatin Calcium (Lipitor) 80 mg DAILY@21 PO Last administered on 08/18/18 21:34; Admin Dose 80 MG; Start 08/05/18 at 21:00 Nitroglycerin/ Dextrose 250 ml @ 1.5 mls/hr TITRATE IV Last administered on 08/05/18 14:22; Admin Dose 72 MLS/HR; Start 08/05/18 at 01:00 Miscellaneous Information 1 ea NOTE XX ; Start 08/05/18 at 09:00 Acetaminophen (Tylenol Supp) 650 mg Q4H PRN [place] TEMP > 37C Last administered on 08/09/18 04:37; Admin Dose 650 MG; Start 08/05/18 at 11:00 Acetaminophen (Tylenol Liquid) 650 mg Q4H PRN PO TEMP > 37C Last administered on 08/18/18 23:17; Admin Dose 650 MG; Start 08/05/18 at 11:00 Meperidine HCl (Demerol) 25 mg Q4H PRN IV POST OPERATIVE SHIVERING Last administered on 08/05/18 16:31; Admin Dose 25 MG; Start 08/05/18 at 11:00 Eye Lubricant (Akwa Oint) 1 applic Q6 BOTH EYES Last administered on 08/19/18 05:28; Admin Dose 1 APPLIC; Start 08/05/18 at 12:00 Eye Lubricant (Artificial Tears Oph) 2 drop Q6 BOTH EYES Last administered on 08/19/18 05:28; Admin Dose 2 DROP; Start 08/05/18 at 12:00 Insulin Human Regular 100 unit/ Sodium Chloride 100 ml @ 0 mls/hr PER PROTOCOL IV ; Start 08/05/18 at 12:00 Miscellaneous Information (* Miscellaneous Pharmacy Order) Treatment of Hypoglycemia: 1.BG 51... Per protocol XX ; Start 08/05/18 at 12:00 Dextrose (D50w Syringe) 25 ml Q15M PRN IV .DECREASED GLUCOSE; Start 08/05/18 at 12:00 Dextrose (D50w Syringe) 50 ml Q15M PRN IV .DECREASED GLUCOSE; Start 08/05/18 at 12:00 Fentanyl 100 ml @ 2.5 mls/hr TITRATE IV Last administered on 08/18/18 14:10; Admin Dose 7 MLS/HR; Start 08/05/18 at 12:00 Meperidine HCl (Demerol) 12.5 mg Q2H PRN IV POST OPERATIVE SHIVERING; Start 08/05/18 at 17:00 Aspirin (Aspirin) 81 mg DAILY NGT Last administered on 08/18/18 09:00; Admin Dose 81 MG; Start 08/06/18 at 09:00 Diagnostic Test (Pha) (Accu-Chek) 1 ea Q12 XX Last administered on 08/18/18 21:37; Admin Dose 1 EA; Start 08/06/18 at 21:00 Multivitamins (Multivitamin) 30 ml DAILY NGT Last administered on 08/18/18 09:00; Admin Dose 30 ML; Start 08/09/18 at 09:00 Zinc Sulfate (Zinc Sulfate) 220 mg DAILY NGT Last administered on 08/18/18 09:00; Admin Dose 220 MG; Start 08/09/18 at 09:00 Folic Acid (Folic Acid) 1 mg DAILY NGT Last administered on 08/18/18 09:01; Admin Dose 1 MG; Start 08/09/18 at 09:00 Ascorbic Acid (Vitamin C) 500 mg DAILY NGT Last administered on 08/18/18 09:00; Admin Dose 500 MG; Start 08/09/18 at 09:00 Albuterol (Ventolin Hfa) 4 puff Q6HWA RESP THERAPY INH Last administered on 08/18/18 20:23; Admin Dose 4 PUFF; Start 08/09/18 at 14:00 Ipratropium [place] (Atrovent Hfa) 4 puff Q6H RESP THERAPY INH Last administered on 08/19/18 02:18; Admin Dose 4 PUFF; Start 08/09/18 at 14:00 Piperacillin Sod/ Tazobactam Sod 50 ml @ 100 mls/hr Q8 IVPB Last administered on 08/19/18 05:28; Admin Dose 100 MLS/HR; Start 08/10/18 at 14:00 IV Flush (NS 10 ml) 10 ml PRN PRN IV IV PROTOCOL; Start 08/11/18 at 16:30 Lansoprazole (Prevacid) 30 mg 0600,1800 PEG Last administered on 08/19/18 05:28; Admin Dose 30 MG; Start 08/11/18 at 18:28 Heparin Sodium (Porcine) (Heparin (1000 Units/ml)) 3,000 unit PRN PRN CATHETER Dialysis Last administered on 08/18/18 17:48; Admin Dose 3,000 UNIT; Start 08/12/18 at 14:30 Ciprofloxacin HCl (Ciprofloxacin HCl Otic) 5 drop BID LEFT EAR Last administered on 08/18/18 21:34; Admin Dose 5 DROP; Start 08/14/18 at 10:00; Stop 08/20/18 at 21:01 Labetalol HCl (Labetalol) 10 mg Q4H PRN IV ELEVATED SYSTOLIC BP > 180 Last administered on 08/16/18 05:14; Admin Dose 10 MG; Start 08/14/18 at 19:00 Midazolam HCl 50 ml @ 1 mls/hr TITRATE IV Last administered on 08/18/18 23:11; Admin Dose 6 MLS/HR; Start 08/15/18 at 11:00 Hydralazine HCl (Apresoline) 20 mg Q2 PRN IV ELEVATED SYSTOLIC BP Last administered on 08/17/18 18:30; Admin Dose 20 MG; Start 08/16/18 at 08:00 Metronidazole 100 ml @ 100 mls/hr Q8 IVPB Last administered on 08/19/18 05:28; Admin Dose 100 MLS/HR; Start 08/16/18 at 22:00 Carvedilol (Coreg) 12.5 mg Q6H PO Last administered on 08/18/18at 05:06; Admin Dose 12.5 MG; Start 08/17/18 at 01:00 Docusate Sodium (Colace Liquid Cup) 100 mg BID GTB Last administered on 08/18/18at 09:09; Admin Dose 100 MG; Start 08/18/18 at 09:00 Clopidogrel Bisulfate (plaVIX) 75 mg DAILY NGT Last administered on 08/18/18at 14:04; Admin Dose 75 MG; Start 08/18/18 at 13:30 BINH MATTHEWS DO Aug 19, 2018 07:15
[2018-08-19] MEDS: ALBUTEROL HFA 8 GM INHALER INH SCH ×3 (08:20→20:45)
[2018-08-19] MEDS: MULTIVITAMINS 30 ML CUP NGT SCH (08:43)
[2018-08-19] MEDS: ASPIRIN 81 MG TAB NGT SCH (08:43)
[2018-08-19] MEDS: CIPROFLOXACIN HCL OTIC DROP 0.25 ML LEFT EAR SCH ×2 (08:44→20:57)
[2018-08-19] MEDS: ASCORBIC ACID 500 MG TAB NGT SCH (08:44)
[2018-08-19] MEDS: CLOPIDOGREL 75 MG TAB NGT SCH (08:44)
[2018-08-19] MEDS: FOLIC ACID 1 MG TAB NGT SCH (08:44)
[2018-08-19] MEDS: ZINC SULFATE 220 MG CAP NGT SCH (08:44)
[2018-08-19] MEDS: FENTAnyl (DRIP) 1000 mcg/100mL 100 ML IV SCH (08:52)
--- NOTE | 2018-08-19 08:56 | CONS ---
Assessment/Plan Assessment/Plan Assessment/Plan (Daily) Chest x-ray from this morning is pending. Ventilator setting; AC of 20, pressure controlled, PEEP of 5, 55% FiO2. Patient is currently on fentanyl 70 mics per hour, Versed 5 mg/h. Assessment recommendations; 1. Patient admitted with severe sepsis and bilateral pneumonia with ARDS currently on pressure control mode of ventilation with high FiO2. 2. CVA. 3. History of hypertension. 4. Renal failure, on hemodialysis. 5. Anemia. 6. E. coli UTI. 7. Staph aureus bacteremia. Continue on supportive care. Patient is a candidate for tracheostomy. However the family is reluctant at this point. Owing to patient's fairly young age and fairly adequate mental status off sedation, terminal extubation is not a good option. 35 minutes of critical care time was spent evaluating the patient. Consultation Date/Type/Reason Admit Date/Time Aug 04, 2018 at 23:10 Initial Consult Date 08/17/18 Type of Consult Pulmonary/critical care Requesting Provider: HARPAL AGGARWAL MD Date/Time of Note DATE: 08/19/18 TIME: 08:53 24 HR Interval Summary Free Text/Dictation Patient's condition remains critical. Patient however has remained hemodynamically stable. Patient was given a sedation vacation yesterday exhibited adequate mental status. General exam; young female, orally intubated, sedated, currently in no distress. Exam/Review of Systems Exam Vitals Vital Signs Date Temp Pulse Resp B/P (MAP) Pulse Ox O2 O2 Flow FiO2 Time Delivery Rate 08/19/18 109 36 100/61 100 06:00 (74) 08/19/18 55 04:42 08/19/18 98.8 04:00 08/19/18 Mechanical 03:00 Ventilator Intake and Output 08/18/18 08/18/18 08/19/18 1515:00 23:00 07:00 IntakeIntake Total 689 ml 502 ml 661 ml OutputOutput Total 0 ml 4500 ml 50 ml BalanceBalance 689 ml -3998 ml 611 ml Exam H EENT exam; supple neck, no JVD. No lymphadenopathy. Midline trachea. No thyromegaly. Orogastric tube in place. Patient has fair dentition. Pupils are small bilaterally. Orally intubated. Chest exam; diminished breath sounds bilaterally with bilateral harsh vesicular breath sounds. S1-S2 audible, no murmurs. Regular rhythm. Abdomen exam; soft, no organomegaly. Bowel sounds are audible. Extremity exam; trace peripheral edema. 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 Results Result Diagram: 08/19/18 0434 08/19/18 0434 Results 24hrs Laboratory Tests Test 08/18/18 09:07 08/18/18 21:37 08/19/18 04:34 Bedside Glucose 106 142 White Blood Count 17.2 H Red Blood Count 3.14 L Hemoglobin 8.6 L Hematocrit 28.6 L Mean Corpuscular Volume 91.1 Mean Corpuscular Hemoglobin 27.4 L Mean Corpuscular Hemoglobin Concent 30.1 L Red Cell Distribution Width 16.6 H Platelet Count 264 # Mean Platelet Volume 13.9 H Immature Granulocytes % 1.500 H Neutrophils % 78.0 H Lymphocytes % 11.0 L Monocytes % 7.5 Eosinophils % 1.5 Basophils % 0.5 Nucleated Red Blood Cells % 0.0 Immature Granulocytes # 0.250 H Neutrophils # 13.4 H Lymphocytes # 1.9 Monocytes # 1.3 H Eosinophils # 0.3 Basophils # 0.1 Nucleated Red Blood Cells # 0.0 Sodium Level 139 Potassium Level 4.9 Chloride Level 100 Carbon Dioxide Level 28 Anion Gap 11 Blood Urea Nitrogen 52 H Creatinine 3.16 H Est Glomerular Filtrat Rate mL/min 16 L Glucose Level 125 Calcium Level 8.9 Phosphorus Level 5.5 H Magnesium Level 2.2 Medications Medication Current Medications Norepinephrine 250 ml @ 1.875 mls/ hr TITRATE IV Last administered on 08/10/18at 00:41; Admin Dose 5.625 MLS/HR; Start 08/04/18 at 23:15 Morphine Sulfate (morphine) 1 mg Q1H PRN IV PAIN Last administered on 08/17/18at 18:30; Admin Dose 1 MG; Start 08/04/18 at 23:30 Atorvastatin Calcium (Lipitor) 80 mg DAILY@21 PO Last administered on 08/18/18at 21:34; Admin Dose 80 MG; Start 08/05/18 at 21:00 Nitroglycerin/ Dextrose 250 ml @ 1.5 mls/hr TITRATE IV Last administered on 08/05/18at 14:22; Admin Dose 72 MLS/HR; Start 08/05/18 at 01:00 Miscellaneous Information 1 ea NOTE XX ; Start 08/05/18 at 09:00 Acetaminophen (Tylenol Supp) 650 mg Q4H PRN [place] TEMP > 37C Last administered on 08/09/18at 04:37; Admin Dose 650 MG; Start 08/05/18 at 11:00 Acetaminophen (Tylenol Liquid) 650 mg Q4H PRN PO TEMP > 37C Last administered on 08/18/18at 23:17; Admin Dose 650 MG; Start 08/05/18 at 11:00 Meperidine HCl (Demerol) 25 mg Q4H PRN IV POST OPERATIVE SHIVERING Last administered on 08/05/18at 16:31; Admin Dose 25 MG; Start 08/05/18 at 11:00 Eye Lubricant (Akwa Oint) 1 applic Q6 BOTH EYES Last administered on 08/19/18 05:28; Admin Dose 1 APPLIC; Start 08/05/18 at 12:00 Eye Lubricant (Artificial Tears Oph) 2 drop Q6 BOTH EYES Last administered on 08/19/18 05:28; Admin Dose 2 DROP; Start 08/05/18 at 12:00 Insulin Human Regular 100 unit/ Sodium Chloride 100 ml @ 0 mls/hr PER PROTOCOL IV ; Start 08/05/18 at 12:00 Miscellaneous Information (* Miscellaneous Pharmacy Order) Treatment of Hypoglycemia: 1.BG 51... Per protocol XX ; Start 08/05/18 at 12:00 Dextrose (D50w Syringe) 25 ml Q15M PRN IV .DECREASED GLUCOSE; Start 08/05/18 at 12:00 Dextrose (D50w Syringe) 50 ml Q15M PRN IV .DECREASED GLUCOSE; Start 08/05/18 at 12:00 Fentanyl 100 ml @ 2.5 mls/hr TITRATE IV Last administered on 08/18/18at 14:10; Admin Dose 7 MLS/HR; Start 08/05/18 at 12:00 Meperidine HCl (Demerol) 12.5 mg Q2H PRN IV POST OPERATIVE SHIVERING; Start 08/05/18 at 17:00 Aspirin (Aspirin) 81 mg DAILY NGT Last administered on 08/18/18at 09:00; Admin Dose 81 MG; Start 08/06/18 at 09:00 Diagnostic Test (Pha) (Accu-Chek) 1 ea Q12 XX Last administered on 08/18/18 21:37; Admin Dose 1 EA; Start 08/06/18 at 21:00 Multivitamins (Multivitamin) 30 ml DAILY NGT Last administered on 08/18/18 09:00; Admin Dose 30 ML; Start 08/09/18 at 09:00 Zinc Sulfate (Zinc Sulfate) 220 mg DAILY NGT Last administered on 08/18/18 09:00; Admin Dose 220 MG; Start 08/09/18 at 09:00 Folic Acid (Folic Acid) 1 mg DAILY NGT Last administered on 08/18/18 09:01; Admin Dose 1 MG; Start 08/09/18 at 09:00 Ascorbic Acid (Vitamin C) 500 mg DAILY NGT Last administered on 08/18/18 09:00; Admin Dose 500 MG; Start 08/09/18 at 09:00 Albuterol (Ventolin Hfa) 4 puff Q6HWA RESP THERAPY INH Last administered on 08/18/18 20:23; Admin Dose 4 PUFF; Start 08/09/18 at 14:00 Ipratropium [place] (Atrovent Hfa) 4 puff Q6H RESP THERAPY INH Last administered on 08/19/18 02:18; Admin Dose 4 PUFF; Start 08/09/18 at 14:00 Piperacillin Sod/ Tazobactam Sod 50 ml @ 100 mls/hr Q8 IVPB Last administered on 08/19/18 05:28; Admin Dose 100 MLS/HR; Start 08/10/18 at 14:00 IV Flush (NS 10 ml) 10 ml PRN PRN IV IV PROTOCOL; Start 08/11/18 at 16:30 Lansoprazole (Prevacid) 30 mg 0600,1800 PEG Last administered on 08/19/18 05:28; Admin Dose 30 MG; Start 08/11/18 at 18:28 Heparin Sodium (Porcine) (Heparin (1000 Units/ml)) 3,000 unit PRN PRN CATHETER Dialysis Last administered on 08/18/18 17:48; Admin Dose 3,000 UNIT; Start 08/12/18 at 14:30 Ciprofloxacin HCl (Ciprofloxacin HCl Otic) 5 drop BID LEFT EAR Last administered on 08/18/18 21:34; Admin Dose 5 DROP; Start 08/14/18 at 10:00; Stop 08/20/18 at 21:01 Labetalol HCl (Labetalol) 10 mg Q4H PRN IV ELEVATED SYSTOLIC BP > 180 Last administered on 08/16/18 05:14; Admin Dose 10 MG; Start 08/14/18 at 19:00 Midazolam HCl 50 ml @ 1 mls/hr TITRATE IV Last administered on 08/18/18 23:11; Admin Dose 6 MLS/HR; Start 08/15/18 at 11:00 Hydralazine HCl (Apresoline) 20 mg Q2 PRN IV ELEVATED SYSTOLIC BP Last administered on 08/17/18 18:30; Admin Dose 20 MG; Start 08/16/18 at 08:00 Metronidazole 100 ml @ 100 mls/hr Q8 IVPB Last administered on 08/19/18 05:28; Admin Dose 100 MLS/HR; Start 08/16/18 at 22:00 Carvedilol (Coreg) 12.5 mg Q6H PO Last administered on 08/18/18 05:06; Admin Dose 12.5 MG; Start 08/17/18 at 01:00 Docusate Sodium (Colace Liquid Cup) 100 mg BID GTB Last administered on 08/18/18 09:09; Admin Dose 100 MG; Start 08/18/18 at 09:00 Clopidogrel Bisulfate (plaVIX) 75 mg DAILY NGT Last administered on 08/18/18 14:04; Admin Dose 75 MG; Start 08/18/18 at 13:30 MARIAA KINSEY Aug 19, 2018 08:56
[2018-08-19] MEDS: DOCUSATE SODIUM 10 MG/ML (10ML CUP) GTB SCH ×2 (09:00→20:58)
[2018-08-19] MEDS: ACCU-CHEK XX SCH ×2 (09:01→21:00)
--- NOTE | 2018-08-19 09:14 | PN ---
Date/Time of Note Date/Time of Note DATE: 08/19/18 TIME: 09:11 Objective Vitals Vital Signs Date Temp Pulse Resp B/P (MAP) Pulse Ox O2 O2 Flow FiO2 Time Delivery Rate 08/19/18 109 36 100/61 100 06:00 (74) 08/19/18 55 04:42 08/19/18 98.8 04:00 08/19/18 Mechanical 03:00 Ventilator Intake and Output 08/18/18 08/18/18 08/19/18 1515:00 23:00 07:00 IntakeIntake Total 689 ml 502 ml 661 ml OutputOutput Total 0 ml 4500 ml 50 ml BalanceBalance 689 ml -3998 ml 611 ml Results Result Diagram: 08/19/18 0434 08/19/184 Medications Medications Current Medications Norepinephrine 250 ml @ 1.875 mls/ hr TITRATE IV Last administered on 08/10/18at 00:41; Admin Dose 5.625 MLS/HR; Start 08/04/18 at 23:15 Morphine Sulfate (morphine) 1 mg Q1H PRN IV PAIN Last administered on 08/17/18at 18:30; Admin Dose 1 MG; Start 08/04/18 at 23:30 Atorvastatin Calcium (Lipitor) 80 mg DAILY@21 PO Last administered on 08/18/18at 21:34; Admin Dose 80 MG; Start 08/05/18 at 21:00 Nitroglycerin/ Dextrose 250 ml @ 1.5 mls/hr TITRATE IV Last administered on 08/05/18at 14:22; Admin Dose 72 MLS/HR; Start 08/05/18 at 01:00 Miscellaneous Information 1 ea NOTE XX ; Start 08/05/18 at 09:00 Acetaminophen (Tylenol Supp) 650 mg Q4H PRN [place] TEMP > 37C Last administered on 08/09/18at 04:37; Admin Dose 650 MG; Start 08/05/18 at 11:00 Acetaminophen (Tylenol Liquid) 650 mg Q4H PRN PO TEMP > 37C Last administered on 08/18/18at 23:17; Admin Dose 650 MG; Start 08/05/18 at 11:00 Meperidine HCl (Demerol) 25 mg Q4H PRN IV POST OPERATIVE SHIVERING Last administered on 08/05/18at 16:31; Admin Dose 25 MG; Start 08/05/18 at 11:00 Eye Lubricant (Akwa Oint) 1 applic Q6 BOTH EYES Last administered on 08/19/18 05:28; Admin Dose 1 APPLIC; Start 08/05/18 at 12:00 Eye Lubricant (Artificial Tears Oph) 2 drop Q6 BOTH EYES Last administered on 08/19/18 05:28; Admin Dose 2 DROP; Start 08/05/18 at 12:00 Insulin Human Regular 100 unit/ Sodium Chloride 100 ml @ 0 mls/hr PER PROTOCOL IV ; Start 08/05/18 at 12:00 Miscellaneous Information (* Miscellaneous Pharmacy Order) Treatment of Hypoglycemia: 1.BG 51... Per protocol XX ; Start 08/05/18 at 12:00 Dextrose (D50w Syringe) 25 ml Q15M PRN IV .DECREASED GLUCOSE; Start 08/05/18 at 12:00 Dextrose (D50w Syringe) 50 ml Q15M PRN IV .DECREASED GLUCOSE; Start 08/05/18 at 12:00 Fentanyl 100 ml @ 2.5 mls/hr TITRATE IV Last administered on 08/19/18 08:52; Admin Dose 7 MLS/HR; Start 08/05/18 at 12:00 Meperidine HCl (Demerol) 12.5 mg Q2H PRN IV POST OPERATIVE SHIVERING; Start 08/05/18 at 17:00 Aspirin (Aspirin) 81 mg DAILY NGT Last administered on 08/19/18 08:43; Admin Dose 81 MG; Start 08/06/18 at 09:00 Diagnostic Test (Pha) (Accu-Chek) 1 ea Q12 XX Last administered on 08/19/18 09:01; Admin Dose 1 EA; Start 08/06/18 at 21:00 Multivitamins (Multivitamin) 30 ml DAILY NGT Last administered on 08/19/18 08:43; Admin Dose 30 ML; Start 08/09/18 at 09:00 Zinc Sulfate (Zinc Sulfate) 220 mg DAILY NGT Last administered on 08/19/18 08:44; Admin Dose 220 MG; Start 08/09/18 at 09:00 Folic Acid (Folic Acid) 1 mg DAILY NGT Last administered on 08/19/18 08:44; Admin Dose 1 MG; Start 08/09/18 at 09:00 Ascorbic Acid (Vitamin C) 500 mg DAILY NGT Last administered on 08/19/18 08:44; Admin Dose 500 MG; Start 08/09/18 at 09:00 Albuterol (Ventolin Hfa) 4 puff Q6HWA RESP THERAPY INH Last administered on 08/18/18 20:23; Admin Dose 4 PUFF; Start 08/09/18 at 14:00 Ipratropium [place] (Atrovent Hfa) 4 puff Q6H RESP THERAPY INH Last administered on 08/19/18 02:18; Admin Dose 4 PUFF; Start 08/09/18 at 14:00 Piperacillin Sod/ Tazobactam Sod 50 ml @ 100 mls/hr Q8 IVPB Last administered on 08/19/18 05:28; Admin Dose 100 MLS/HR; Start 08/10/18 at 14:00 IV Flush (NS 10 ml) 10 ml PRN PRN IV IV PROTOCOL; Start 08/11/18 at 16:30 Lansoprazole (Prevacid) 30 mg 0600,1800 PEG Last administered on 08/19/18 05:28; Admin Dose 30 MG; Start 08/11/18 at 18:28 Heparin Sodium (Porcine) (Heparin (1000 Units/ml)) 3,000 unit PRN PRN CATHETER Dialysis Last administered on 08/18/18 17:48; Admin Dose 3,000 UNIT; Start 08/12/18 at 14:30 Ciprofloxacin HCl (Ciprofloxacin HCl Otic) 5 drop BID LEFT EAR Last administered on 08/19/18 08:44; Admin Dose 5 DROP; Start 08/14/18 at 10:00; Stop 08/20/18 at 21:01 Labetalol HCl (Labetalol) 10 mg Q4H PRN IV ELEVATED SYSTOLIC BP > 180 Last administered on 08/16/18 05:14; Admin Dose 10 MG; Start 08/14/18 at 19:00 Midazolam HCl 50 ml @ 1 mls/hr TITRATE IV Last administered on 08/18/18 23:11; Admin Dose 6 MLS/HR; Start 08/15/18 at 11:00 Hydralazine HCl (Apresoline) 20 mg Q2 PRN IV ELEVATED SYSTOLIC BP Last administered on 08/17/18 18:30; Admin Dose 20 MG; Start 08/16/18 at 08:00 Metronidazole 100 ml @ 100 mls/hr Q8 IVPB Last administered on 08/19/18at 05:28; Admin Dose 100 MLS/HR; Start 08/16/18 at 22:00 Carvedilol (Coreg) 12.5 mg Q6H PO Last administered on 08/19/18at 09:01; Admin Dose 12.5 MG; Start 08/17/18 at 01:00 Docusate Sodium (Colace Liquid Cup) 100 mg BID GTB Last administered on 08/18/18at 09:09; Admin Dose 100 MG; Start 08/18/18 at 09:00 Clopidogrel Bisulfate (plaVIX) 75 mg DAILY NGT Last administered on 08/19/18at 08:44; Admin Dose 75 MG; Start 08/18/18 at 13:30 VTE Prophylaxis Risk score (from Ns)>0 risk: 10 [place] [facility] [place] Lines/Catheters IV Catheter Type: Bajwa in Place: Yes Cont'd bajwa catheter reason: terminal illness/intractable pain Assessment/Plan Hospital Course Subjective Patient sedated again, due to agitation when off sedation for too long. Objective Physical exam General: Patient is laying in bed intubated and sedated Mentation: Patient is not alert and oriented 4, Head: Normocephalic atraumatic Eyes: EOMI, pupils reactive to light Ears: Left auditory canal has dried up blood, unable to properly visualize tympanic membrane, right auditory canal clear Neck: Supple, nontender, midline Respiratory: Coarse to auscultation bilaterally Cardiovascular: regular rate, no obvious murmurs Gastrointestinal: non-tender to palpation, bowel sounds heard. Neurological: Sedated Skin: No new skin lesions Assessment/Plan 1. Acute toxic/metabolic encephalopathy - Neurology recs appreciated and CT head noted -MRI noted bilateral CVA -At this time it appears that the initial incident led to anoxic encephalopathy due to unknown downtime during cardiac arrest before she came into the hospital. - monitor for improvement in neurological status, very poor prognosis at this time, patient apparently moved right foot to command yesterday per nursing, have yet to witness, however it appears credible and will monitor closely. Bilateral CVA -Found on MRI, likely thromboembolic secondary to cardiopulmonary arrest per neurology -If patient's family decides to continue with care and PEG and trach, will likely need to assess need of a chronic anticoagulation, however due to patient's recent copious nosebleed while on aspirin and Brilinta will need to slowly introduce. We will need to assess if PEG and trach will be done first before we start any anticoagulation as procedures will need to have anticoagulation held. 2. Septic shock secondary to PNA and bacteremia - WBC to be monitored closely - Blood cultures and sputum culture results noted. Will repeat blood cultures as needed - ID consulted for antibiotic recommendations. - Continue current antibiotics and pressor support with goal MAP> 65 3. Bilateral Pneumonia - CXR noted - Pulm on board and appreciate recommendations. Will continue current managemen t and monitor for improvement in respiratory status - continue bronchodilators -ID on board Left auditory canal bleeding -Very mild, only dried blood at this time, however monitor closely as patient is on antiplatelet therapy due to coronary artery disease -ok per ID to start cipro eardrops Sinus infection -Continue IV antibiotics and eardrops, -ID recommended she is appreciated Anemia -Mild drop in hemoglobin, will need to monitor closely as cardiology as previously mentioned patient is on dual antiplatelet therapy, cardiology change Brilinta to Plavix -Had improved for a while however is more copious today -ENT physician consulted, Dr. Martinez. Saw patient previously however patient is bleeding again, if conservative measures do not work we may need further intervention. -H&H every 6 hrs and transfuse as needed. 4. CAD s/p PCI x2 - Cardiology on board and appreciate recommendations. Stressed importance of continuing DAPT given recent stent placements and high risk of restenosis - s/p emergent Cath 08/05 with successful PTCA and stenting of proximal and mid LAD, PTCA of the large first diagonal and thrombectomy of the LAD - Repeat PCI on 08/07 performed with stenting to LCx - plans for stenting of RCA prior to discharge if possible - ECHO results noted 5. Acute hypoxic respiratory failure - exacerbated by #1 - Pulm on board for vent management. appreciate consultation 6. HUSEYIN-now on dialysis - Nephrology on board and appreciate recommendations. -Now on HD - secondary to septic shock, ATN vs prerenal vs contrast induced nephropathy - will avoid nephrotoxic agents 7. Diabetes - A1c noted 8. Transaminitis-monitor closely - most likely secondary to hypoperfusion - continue monitoring LFTs - RUQ US noted 9. V-fib cardiac arrest secondary to STEMI - Completed hypothermia protocol - unknown how long patient was down for in the field 10. Disposition - Continue close monitoring in ICU while requiring vent management. -Unfortunately there is not significant improvement, poor prognosis of overall recovery, some mild neurological improvement per nursing staff today. -Palliative care physician to continue to speak with family regarding their wishes for PEG and trach., Giving mixed signals for now no decision made. >30 minutes of critical care time spent with patient and family at bedside HARPAL PEDROZA Aug 19, 2018 09:14
--- NOTE | 2018-08-19 09:38 | CONS ---
Assessment/Plan Assessment/Plan Hospital Course 38 yo F w/ reported Hx of HTN and DM2 who is admitted to the [facility] ICU s/p a vfib cardiac arrest. She is now s/p cardiac catheterization w/ 2 coronary stents. now s/p targeted temperature therapy. Neurology is consulted given persistent encephalopathy...which is likely multifactorial -- toxic-metabolic, medications, hypoxic-ischemic MRI brain is notable for multiple bihemispheric infarcts... likely of cardioembolic origin in the context of her recent arrest. EEG is without epileptiform activity CUS is unrevealing. Ammonia, RPR level wnl. ESR >130 Echo on 08/05 in unrevealing. P: Await hypercoag panel; defer CTA for now given poor renal function Continue ASA/Lipitor for secondary stroke prevention Continued medical management per primary Will follow clinically Consultation Date/Type/Reason Admit Date/Time Aug 04, 2018 at 23:10 Type of Consult Neurology Requesting Provider: HARPAL AGGARWAL MD Date/Time of Note DATE: 08/19/18 TIME: 09:37 24 HR Interval Summary Free Text/Dictation Continues critical care. Pt reportedly followed commands for RN/family yesterday once sedation was held. Awaiting final family decision today regarding trach/PEG Subjective hx not possible: pt non-verbal Exam Vital Signs Vitals Vital Signs Date Temp Pulse Resp B/P (MAP) Pulse Ox O2 O2 Flow FiO2 Time Delivery Rate 08/19/18 108 08:00 08/19/18 36 100/61 100 06:00 (74) 08/19/18 55 04:42 08/19/18 98.8 04:00 08/19/18 Mechanical 03:00 Ventilator Intake and Output 08/18/18 08/18/18 08/19/18 1515:00 23:00 07:00 IntakeIntake Total 689 ml 502 ml 661 ml OutputOutput Total 0 ml 4500 ml 50 ml BalanceBalance 689 ml -3998 ml 611 ml Exam PE: Gen Appearance: No Apparent Distress HEENT: Intubated Cardiovascular: Regular rate Abdomen: Soft Extremities: Dry NE: The patient was sedated and nonverbal. Able to open her eyes to loud stimuli. Able to track; unable to follow any commands. Cranial nerve examination was limited by mental status. Pupils were equal and reactive to light. There was no afferent pupillary defect. Funduscopic exam ination was limited. Face was grossly symmetric, w/ present corneal and cough reflexes. Tone was normal. Muscle bulk was normal. I did not see fasciculations. The patient withdrew to noxious stimulation in her BLE. Coordination and gait testing was limited by mental status. Arm and leg reflexes were within normal limits and symmetric. Alvarez's sign was absent. Plantar responses were flexor. KAYCEE ESCOBEDO NP Aug 19, 2018 09:38
[2018-08-19] MEDS: MIDAZOLAM (DRIP) 50 mg/50 mL 50 ML IV SCH (11:50)
--- NOTE | 2018-08-19 12:15 | CONS ---
Assessment/Plan Assessment/Plan Hospital Course (Demo Recall) ID PROGRESS NOTE CURRENT ABX: DAY # => Zosyn #10.5 + Flagyl IV + CIPRO otic gtt S/P Vanco IV 08/19/18 0434 08/19/18 0434 24H INTERVAL SUMMARY * WBC CONTINUES TO RISE ON ZOSYN -- suspected opportunistic yeast vs other * Mild tachycardia HR 100+ range, PERSISTENT DIARRHEA == suspect Zosyn ABX related * COPIOUS BLOODY ORAL SECRETIONS -- FREQUENT ORAL SUCTION REQUIRED * Obese 38 yo F orally intubated, non-communicative without distress on the Ventilator DIAGNOSTIC IMAGING * 08/19/18 CXR: Diffuse bilateral reticular nodular infiltrates unchanged. Question bronchopneumonia versus failure. * 08/18/18 CXR: FINDINGS: * The endotracheal tube, nasogastric tube, and right arm PICC line remain in satisfactory position. There is interstitial and alveolar disease bilaterally consistent with pulmonary edema or bilateral multifocal pneumonia. The heart size is normal. There are small bilateral pleural effusions. There is no pneumothorax. * IMPRESSION:1. No significant change from the 08/17/2018 chest radiograph. MICRO/OTHER * Urine culture on admission grew E. coli and Proteus, blood cultures growing oxacillin sensitive staph aureus endotracheal aspirate also growing oxacillin sensitive staph aureus ear drainage preliminary growing staph aureus, repeat blood cultures 3 days ago negative PHYSICAL EXAMINATION: GENERAL: VSS, awake, non-communicative HEENT: AT, NC, anicteric, NECK: Supple, CHEST: Equal chest rise bilaterally, without dyspnea on observation HEART: Pulse RRR ABDOMEN: Soft / NT : FC in place, clear yellow urine EXTREMITIES: Warm, dry SKIN: No rash, no diaphoresis ID ASSESSMENT 38 yo F w/ MORBID OBESITY admit with: 1. Severe sepsis 2. Oxacillin sensitive staph aureus bacteremia 2 to #3 3. Oxacillin sensitive staph aureus pneumonia * 08/09/18 RESPIRATORY CULTURE Final Organism 1 STAPHYLOCOCCUS AUREUS QUANTITY 1+ 4. Polymicrobial UTI * 08/09/18 URINE CX (+) URINE CULTURE Final Organism 1 ESCHERICHIA COLI COLONY COUNT 40,000 - 50,000 CFU/ml Organism 2 PROTEUS MIRABILIS COLONY COUNT 40,000 - 50,000 CFU/ml 5. ST elevation NH=> CAD, status post stent x2 * Status post V. fib arrest 7. Acute hypoxic respiratory failure 8. Acute Encephalopathy ==> Bilateral CVA per MRI + possibly anoxic brain injury during cardiac arrest 9. Anemia and thrombocytopenia 10. Acute sinusitis and bilateral mastoiditis * Left auditory canal bleeding = mild * 08/17/18 EAR CX (+) VENU EAR CULTURE Final Organism 1 STAPHYLOCOCCUS AUREUS QUANTITY SCANT GROWTH 11. Acute renal failure, started on hemodialysis 12. PERSISTENT DIARRHEA == suspect Zosyn ABX related (-)MRSA Nares ABX ALLERGIES: KNDA INVASIVES: ETT, OGT, RUEXT PICC, Femoral Devan CURRENT ABX: DAY # => Zosyn #10 .5 + Flagyl IV + CIPRO otic gtt ID RECOMMENDATIONS/PLAN: 1. Continue Flagyl and Cipro Otic gtt 2. DC Zosyn -- driving leukocytosis * WBC CONTINUES TO RISE ON ZOSYN -- suspected opportunistic yeast vs other * PERSISTENT DIARRHEA == suspect Zosyn ABX related 3. Narrow ABX spectrum to Ancef 1 GM IV Q8H + Levaquin 250mg IV Q48 4. Add Rifaximin == liquid diarrhea persisting 5. Repeat UA + C&S -- evaluate for opportunistic YEAST UTI due to rising WBC on Zosyn * Family members at bedside given update on ABX changes above, express understanding, agreement, gratitude. . . Consultation Date/Type/Reason Admit Date/Time Aug 04, 2018 at 23:10 Initial Consult Date 08/17/18 Requesting Provider: HARPAL AGGARWAL MD Date/Time of Note DATE: 08/19/18 TIME: 12:05 Exam/Review of Systems Exam Vitals Vital Signs Date Temp Pulse Resp B/P (MAP) Pulse Ox O2 O2 Flow FiO2 Time Delivery Rate 08/19/18 108 08:00 08/19/18 36 100/61 100 06:00 (74) 08/19/18 55 04:42 08/19/18 98.8 04:00 08/19/18 Mechanical 03:00 Ventilator Intake and Output 08/18/18 08/18/18 08/19/18 1515:00 23:00 07:00 IntakeIntake Total 689 ml 502 ml 661 ml OutputOutput Total 0 ml 4500 ml 50 ml BalanceBalance 689 ml -3998 ml 611 ml Results Result Diagram: 08/19/18 0434 08/19/18433 Results 24hrs Laboratory Tests Test 08/18/18 21:37 08/19/18 04:34 08/19/18 08:54 08/19/18 08:57 Bedside Glucose 142 104 White Blood Count 17.2 H Red Blood Count 3.14 L Hemoglobin 8.6 L Hematocrit 28.6 L Mean Corpuscular 91.1 Volume Mean Corpuscular 27.4 L Hemoglobin Mean Corpuscular 30.1 L Hemoglobin Concen t Red Cell 16.6 H Distribution Width Platelet Count 264 # Mean Platelet 13.9 H Volume Immature 1.500 H Granulocytes % Neutrophils % 78.0 H Lymphocytes % 11.0 L Monocytes % 7.5 Eosinophils % 1.5 Basophils % 0.5 Nucleated Red 0.0 Blood Cells % Immature 0.250 H Granulocytes # Neutrophils # 13.4 H Lymphocytes # 1.9 Monocytes # 1.3 H Eosinophils # 0.3 Basophils # 0.1 Nucleated Red 0.0 Blood Cells # Sodium Level 139 Potassium Level 4.9 Chloride Level 100 Carbon Dioxide 28 Level Anion Gap 11 Blood Urea 52 H Nitrogen Creatinine 3.16 H Est Glomerular 16 L Filtrat Rate mL/min Glucose Level 125 Calcium Level 8.9 Phosphorus Level 5.5 H Magnesium Level 2.2 Blood Gas Blood arterial Specimen Source Arterial Blood 08/19/2018 10:26: Date Drawn 04 AM Arterial Blood pH 7.334 L (Temp corrected) Arterial Blood 51.5 H pCO2 (Temp correct) Arterial Blood 82.4 pO2 (Temp corrected) Arterial Blood 26.8 H HCO3 Arterial Blood 0.5 Base Excess Arterial Blood 96.0 Oxygen Saturation Dajuan Test ACCEPTAB Arterial Blood Right Radial Gas Puncture Site Arterial 0.2 Blood Carboxyhemo globin Arterial Blood 0.3 Methemoglobin Blood Gas A-a O2 252.5 H Differential Oxyhemoglobin 95.5 Percent Blood Gas 37.0 Temperature Blood Gas 20.0 Respiration Rate Blood Gas Actual 22 Respiration Rate Blood Gas VENT - PC Modality FiO2 55.0 Blood Gas Low 5.0 PEEP Setting Blood Gas 32.0 Inspiratory Pressure Blood Gas MDA Notified Whom Blood Gas 08/19/2018 10:33: Notified Time 21 AM Medications Medication Current Medications Norepinephrine 250 ml @ 1.875 mls/ hr TITRATE IV Last administered on 08/10/18at 00:41; Admin Dose 5.625 MLS/HR; Start 08/04/18 at 23:15 Morphine Sulfate (morphine) 1 mg Q1H PRN IV PAIN Last administered on 08/17/18 18:30; Admin Dose 1 MG; Start 08/04/18 at 23:30 Atorvastatin Calcium (Lipitor) 80 mg DAILY@21 PO Last administered on 08/18/18 21:34; Admin Dose 80 MG; Start 08/05/18 at 21:00 Nitroglycerin/ Dextrose 250 ml @ 1.5 mls/hr TITRATE IV Last administered on 08/05/18 14:22; Admin Dose 72 MLS/HR; Start 08/05/18 at 01:00 Miscellaneous Information 1 ea NOTE XX ; Start 08/05/18 at 09:00 Acetaminophen (Tylenol Supp) 650 mg Q4H PRN [place] TEMP > 37C Last administered on 08/09/18 04:37; Admin Dose 650 MG; Start 08/05/18 at 11:00 Acetaminophen (Tylenol Liquid) 650 mg Q4H PRN PO TEMP > 37C Last administered on 08/18/18 23:17; Admin Dose 650 MG; Start 08/05/18 at 11:00 Meperidine HCl (Demerol) 25 mg Q4H PRN IV POST OPERATIVE SHIVERING Last administered on 08/05/18 16:31; Admin Dose 25 MG; Start 08/05/18 at 11:00 Eye Lubricant (Akwa Oint) 1 applic Q6 BOTH EYES Last administered on 08/19/18 11:50; Admin Dose 1 APPLIC; Start 08/05/18 at 12:00 Eye Lubricant (Artificial Tears Oph) 2 drop Q6 BOTH EYES Last administered on 08/19/18 11:50; Admin Dose 2 DROP; Start 08/05/18 at 12:00 Insulin Human Regular 100 unit/ Sodium Chloride 100 ml @ 0 mls/hr PER PROTOCOL IV ; Start 08/05/18 at 12:00 Miscellaneous Information (* Miscellaneous Pharmacy Order) Treatment of Hypoglycemia: 1.BG 51... Per protocol XX ; Start 08/05/18 at 12:00 Dextrose (D50w Syringe) 25 ml Q15M PRN IV .DECREASED GLUCOSE; Start 08/05/18 at 12:00 Dextrose (D50w Syringe) 50 ml Q15M PRN IV .DECREASED GLUCOSE; Start 08/05/18 at 12:00 Fentanyl 100 ml @ 2.5 mls/hr TITRATE IV Last administered on 08/19/18 08:52; Admin Dose 7 MLS/HR; Start 08/05/18 at 12:00 Meperidine HCl (Demerol) 12.5 mg Q2H PRN IV POST OPERATIVE SHIVERING; Start 08/05/18 at 17:00 Aspirin (Aspirin) 81 mg DAILY NGT Last administered on 08/19/18 08:43; Admin Dose 81 MG; Start 08/06/18 at 09:00 Diagnostic Test (Pha) (Accu-Chek) 1 ea Q12 XX Last administered on 08/19/18 09:01; Admin Dose 1 EA; Start 08/06/18 at 21:00 Multivitamins (Multivitamin) 30 ml DAILY NGT Last administered on 08/19/18 08:43; Admin Dose 30 ML; Start 08/09/18 at 09:00 Zinc Sulfate (Zinc Sulfate) 220 mg DAILY NGT Last administered on 08/19/18 08:44; Admin Dose 220 MG; Start 08/09/18 at 09:00 Folic Acid (Folic Acid) 1 mg DAILY NGT Last administered on 08/19/18 08:44; Admin Dose 1 MG; Start 08/09/18 at 09:00 Ascorbic Acid (Vitamin C) 500 mg DAILY NGT Last administered on 08/19/18 08 :44; Admin Dose 500 MG; Start 08/09/18 at 09:00 Albuterol (Ventolin Hfa) 4 puff Q6HWA RESP THERAPY INH Last administered on 08/19/18 08:20; Admin Dose 4 PUFF; Start 08/09/18 at 14:00 Ipratropium [place] (Atrovent Hfa) 4 puff Q6H RESP THERAPY INH Last administered on 08/19/18 08:20; Admin Dose 4 PUFF; Start 08/09/18 at 14:00 Piperacillin Sod/ Tazobactam Sod 50 ml @ 100 mls/hr Q8 IVPB Last administered on 08/19/18 05:28; Admin Dose 100 MLS/HR; Start 08/10/18 at 14:00 IV Flush (NS 10 ml) 10 ml PRN PRN IV IV PROTOCOL; Start 08/11/18 at 16:30 Lansoprazole (Prevacid) 30 mg 0600,1800 PEG Last administered on 08/19/18 05:28; Admin Dose 30 MG; Start 08/11/18 at 18:28 Heparin Sodium (Porcine) (Heparin (1000 Units/ml)) 3,000 unit PRN PRN CATHETER Dialysis Last administered on 08/18/18 17:48; Admin Dose 3,000 UNIT; Start 08/12/18 at 14:30 Ciprofloxacin HCl (Ciprofloxacin HCl Otic) 5 drop BID LEFT EAR Last administered on 08/19/18 08:44; Admin Dose 5 DROP; Start 08/14/18 at 10:00; Stop 08/20/18 at 21:01 Labetalol HCl (Labetalol) 10 mg Q4H PRN IV ELEVATED SYSTOLIC BP > 180 Last adm inistered on 08/16/18 05:14; Admin Dose 10 MG; Start 08/14/18 at 19:00 Midazolam HCl 50 ml @ 1 mls/hr TITRATE IV Last administered on 08/19/18 11:50; Admin Dose 5 MLS/HR; Start 08/15/18 at 11:00 Hydralazine HCl (Apresoline) 20 mg Q2 PRN IV ELEVATED SYSTOLIC BP Last administered on 08/17/18 18:30; Admin Dose 20 MG; Start 08/16/18 at 08:00 Metronidazole 100 ml @ 100 mls/hr Q8 IVPB Last administered on 08/19/18 05:28; Admin Dose 100 MLS/HR; Start 08/16/18 at 22:00 Carvedilol (Coreg) 12.5 mg Q6H PO Last administered on 08/19/18 09:01; Admin Dose 12.5 MG; Start 08/17/18 at 01:00 Docusate Sodium (Colace Liquid Cup) 100 mg BID GTB Last administered on 08/18/18 09:09; Admin Dose 100 MG; Start 08/18/18 at 09:00 Clopidogrel Bisulfate (plaVIX) 75 mg DAILY NGT Last administered on 08/19/18 08:44; Admin Dose 75 MG; Start 08/18/18 at 13:30 OLIVIA MUNIZ NP Aug 19, 2018 12:15
[2018-08-19] MEDS: LEVOFLOXACIN 250MG/D5W (PMX) 50 ML IVPB SCH (12:39)
--- NOTE | 2018-08-19 12:43 | PN ---
Date/Time of Note Date/Time of Note DATE: 08/19/18 TIME: 12:42 Assessment/Plan Lines/Catheters IV Catheter Type (from Nrsg): Aguilar in Place (from Nrsg): Yes Assessment/Plan Assessment/Plan Respiratory failure Awaiting family conference Possible tracheostomy if family is agreeable Subjective 24 Hr Interval Summary Constitutional: improved Pain Control: mild Exam/Review of Systems Vital Signs Vitals Vital Signs Date Temp Pulse Resp B/P (MAP) Pulse Ox O2 O2 Flow FiO2 Time Delivery Rate 08/19/18 115 20 100 55 11:25 08/19/18 100/61 06:00 (74) 08/19/18 98.8 04:00 08/19/18 Mechanical 03:00 Ventilator Intake and Output 08/18/18 08/18/18 08/19/18 1515:00 23:00 07:00 IntakeIntake Total 689 ml 502 ml 661 ml OutputOutput Total 0 ml 4500 ml 50 ml BalanceBalance 689 ml -3998 ml 611 ml Exam Eyes: nl conjunctiva, EOMI, nl lids, nl sclera ENMT: nl external ears & nose, nl lips & teeth, nl nasal mucosa & septum, mucosa pink and moist Neck: supple, non-tender Respiratory: clear to auscultation, normal air movement Gastrointestinal: soft, nl liver, spleen, non-tender Musculoskeletal: nl extremities to inspection, nl gait and stance Results Result Diagram: 08/19/18 1201 08/19/18 0434 KRISTOFER BAKER MD Aug 19, 2018 12:43
[2018-08-19] MEDS: RIFAXIMIN 200 MG TAB PO SCH ×2 (13:53→20:57)
--- NOTE | 2018-08-19 14:18 | CONS ---
Consult Date/Type/Reason Admit Date/Time Aug 04, 2018 at 23:10 Initial Consult Date 08/05/18 Type of Consultation: cv Requesting Provider: HARPAL AGGARWAL MD Date/Time of Note DATE: 08/19/18 TIME: 14:14 Subjective Interventional cardiology follow-up progress note/critical care Subjective: Events noted discussed with the staff and physicians. d/w Patient remains intubated on the vent and remains nonresponsive in ICU but she has had some response to commands No V tachycardia or V fibrillation. BP is stable off of pressors. more significant oral and nasopharyngeal bleeding noted today events noted s/p PCI 100% occluded LAD 08/04 S/P PCI LCX/ OM Objective: General: Obese female started with intubation on the vent HEENT: NC/AT. pupils are equal. round. NECK: . no stridor. CV: RRR. systolic murmur; no gallop or rubs. PULM: no wheezing + diffuse rhonchi. GI: Obese SOFT, NT, ND, no rebound or guarding Extremity: +B/L LE edema. no clubbing. neuro: Sedated opens her eyes Psych: Calm now rectal: deferred EKG August 06, 2018 was personally within normal sinus rhythm. T wave inversions anterior and inferior leads ECG 08/07: NSR ST T abn c/w ant/lat ischemia CXR 08/14: Nonspecific patchy bilateral pulmonary opacity, mildly improved on the right. No pneumothorax. Endotracheal tube, nasogastric tube, and right-sided PICC line remain in place. Stable mild cardiomegaly. The osseous structures are remarkable for degenerative enthesopathy of the spine. Chest x-ray done August 06 shows:No evidence for active cardiopulmonary disease. CXR 08/19: Diffuse bilateral reticular nodular infiltrates unchanged. Question bronchopneumonia versus failure. ECHO personally reviewed Normal left ventricular cavity size. Normal left ventricular wall thickness. Ejection fraction is visually estimated at 55-65 %. Normal appearance of the mitral valve. Mitral valve is not well visualized. No mitral valve regurgitation is seen. Aortic valve not well visualized. No aortic regurgitation. Normal appearance of the tricuspid valve. Unable to obtain RVSP due to minimal presence of tricuspid regurgitation. No evidence of tricuspid regurgitation. Normal pericardium with no significant pericardial effusion. suboptimal study. Objective Vitals Vital Signs Date Temp Pulse Resp B/P (MAP) Pulse Ox O2 O2 Flow FiO2 Time Delivery Rate 08/19/18 115 33 143/105 89 13:00 (118) 08/19/18 98.7 12:00 08/19/18 55 11:25 08/19/18 Mechanical 03:00 Ventilator Intake and Output 08/18/18 08/18/18 08/19/18 1515:00 23:00 07:00 IntakeIntake Total 689 ml 502 ml 701 ml OutputOutput Total 0 ml 4500 ml 50 ml BalanceBalance 689 ml -3998 ml 651 ml Results/Medications Result Diagram: 08/19/18 1201 08/19/18 0434 Results 24 hrs Laboratory Tests Test 08/18/18 21:37 08/19/18 04:34 08/19/18 08:54 08/19/18 08:57 Bedside Glucose 142 104 White Blood Count 17.2 H Red Blood Count 3.14 L Hemoglobin 8.6 L Hematocrit 28.6 L Mean Corpuscular 91.1 Volume Mean Corpuscular 27.4 L Hemoglobin Mean Corpuscular 30.1 L Hemoglobin Concen t Red Cell 16.6 H Distribution Width Platelet Count 264 # Mean Platelet 13.9 H Volume Immature 1.500 H Granulocytes % Neutrophils % 78.0 H Lymphocytes % 11.0 L Monocytes % 7.5 Eosinophils % 1.5 Basophils % 0.5 Nucleated Red 0.0 Blood Cells % Immature 0.250 H Granulocytes # Neutrophils # 13.4 H Lymphocytes # 1.9 Monocytes # 1.3 H Eosinophils # 0.3 Basophils # 0.1 Nucleated Red 0.0 Blood Cells # Sodium Level 139 Potassium Level 4.9 Chloride Level 100 Carbon Dioxide 28 Level Anion Gap 11 Blood Urea 52 H Nitrogen Creatinine 3.16 H Est Glomerular 16 L Filtrat Rate mL/min Glucose Level 125 Calcium Level 8.9 Phosphorus Level 5.5 H Magnesium Level 2.2 Blood Gas Blood arterial Specimen Source Arterial Blood 08/19/2018 10:26: Date Drawn 04 AM Arterial Blood pH 7.334 L (Temp corrected) Arterial Blood 51.5 H pCO2 (Temp correct) Arterial Blood 82.4 pO2 (Temp corrected) Arterial Blood 26.8 H HCO3 Arterial Blood 0.5 Base Excess Arterial Blood 96.0 Oxygen Saturation Dajuan Test ACCEPTAB Arterial Blood Right Radial Gas Puncture Site Arterial 0.2 Blood Carboxyhemo globin Arterial Blood 0.3 Methemoglobin Blood Gas A-a O2 252.5 H Differential Oxyhemoglobin 95.5 Percent Blood Gas 37.0 Temperature Blood Gas 20.0 Respiration Rate Blood Gas Actual 22 Respiration Rate Blood Gas VENT - PC Modality FiO2 55.0 Blood Gas Low 5.0 PEEP Setting Blood Gas 32.0 Inspiratory Pressure Blood Gas MDA Notified Whom Blood Gas 08/19/2018 10:33: Notified Time 21 AM Test 08/19/18 12:01 Hemoglobin 7.6 L Hematocrit 25.5 L Medications Current Medications Norepinephrine 250 ml @ 1.875 mls/ hr TITRATE IV Last administered on 08/10/18 00:41; Admin Dose 5.625 MLS/HR; Start 08/04/18 at 23:15 Morphine Sulfate (morphine) 1 mg Q1H PRN IV PAIN Last administered on 08/17/18 18:30; Admin Dose 1 MG; Start 08/04/18 at 23:30 Atorvastatin Calcium (Lipitor) 80 mg DAILY@21 PO Last administered on 08/18/18 21:34; Admin Dose 80 MG; Start 08/05/18 at 21:00 Nitroglycerin/ Dextrose 250 ml @ 1.5 mls/hr TITRATE IV Last administered on 08/05/18 14:22; Admin Dose 72 MLS/HR; Start 08/05/18 at 01:00 Miscellaneous Information 1 ea NOTE XX ; Start 08/05/18 at 09:00 Acetaminophen (Tylenol Supp) 650 mg Q4H PRN [place] TEMP > 37C Last administered on 08/09/18 04:37; Admin Dose 650 MG; Start 08/05/18 at 11:00 Acetaminophen (Tylenol Liquid) 650 mg Q4H PRN PO TEMP > 37C Last administered on 08/18/18 23:17; Admin Dose 650 MG; Start 08/05/18 at 11:00 Meperidine HCl (Demerol) 25 mg Q4H PRN IV POST OPERATIVE SHIVERING Last administered on 08/05/18 16:31; Admin Dose 25 MG; Start 08/05/18 at 11:00 Eye Lubricant (Akwa Oint) 1 applic Q6 BOTH EYES Last administered on 08/19/18at 11:50; Admin Dose 1 APPLIC; Start 08/05/18 at 12:00 Eye Lubricant (Artificial Tears Oph) 2 drop Q6 BOTH EYES Last administered on 08/19/18 11:50; Admin Dose 2 DROP; Start 08/05/18 at 12:00 Insulin Human Regular 100 unit/ Sodium Chloride 100 ml @ 0 mls/hr PER PROTOCOL IV ; Start 08/05/18 at 12:00 Miscellaneous Information (* Miscellaneous Pharmacy Order) Treatment of Hypoglycemia: 1.BG 51... Per protocol XX ; Start 08/05/18 at 12:00 Dextrose (D50w Syringe) 25 ml Q15M PRN IV .DECREASED GLUCOSE; Start 08/05/18 at 12:00 Dextrose (D50w Syringe) 50 ml Q15M PRN IV .DECREASED GLUCOSE; Start 08/05/18 at 12:00 Fentanyl 100 ml @ 2.5 mls/hr TITRATE IV Last administered on 08/19/18 08:52; Admin Dose 7 MLS/HR; Start 08/05/18 at 12:00 Meperidine HCl (Demerol) 12.5 mg Q2H PRN IV POST OPERATIVE SHIVERING; Start 08/05/18 at 17:00 Aspirin (Aspirin) 81 mg DAILY NGT Last administered on 08/19/18 08:43; Admin Dose 81 MG; Start 08/06/18 at 09:00 Diagnostic Test (Pha) (Accu-Chek) 1 ea Q12 XX Last administered on 08/19/18 09:01; Admin Dose 1 EA; Start 08/06/18 at 21:00 Multivitamins (Multivitamin) 30 ml DAILY NGT Last administered on 08/19/18 08:43; Admin Dose 30 ML; Start 08/09/18 at 09:00 Zinc Sulfate (Zinc Sulfate) 220 mg DAILY NGT Last administered on 08/19/18 08:44; Admin Dose 220 MG; Start 08/09/18 at 09:00 Folic Acid (Folic Acid) 1 mg DAILY NGT Last administered on 08/19/18 08:44; Admin Dose 1 MG; Start 08/09/18 at 09:00 Ascorbic Acid (Vitamin C) 500 mg DAILY NGT Last administered on 08/19/18 08:44; Admin Dose 500 MG; Start 08/09/18 at 09:00 Albuterol (Ventolin Hfa) 4 puff Q6HWA RESP THERAPY INH Last administered on 08/19/18 08:20; Admin Dose 4 PUFF; Start 08/09/18 at 14:00 Ipratropium [place] (Atrovent Hfa) 4 puff Q6H RESP THERAPY INH Last administered on 08/19/18 08:20; Admin Dose 4 PUFF; Start 08/09/18 at 14:00 IV Flush (NS 10 ml) 10 ml PRN PRN IV IV PROTOCOL; Start 08/11/18 at 16:30 Lansoprazole (Prevacid) 30 mg 0600,1800 PEG Last administered on 08/19/18 05:28; Admin Dose 30 MG; Start 08/11/18 at 18:28 Heparin Sodium (Porcine) (Heparin (1000 Units/ml)) 3,000 unit PRN PRN CATHETER Dialysis Last administered on 08/18/18 17:48; Admin Dose 3,000 UNIT; Start 08/12/18 at 14:30 Ciprofloxacin HCl (Ciprofloxacin HCl Otic) 5 drop BID LEFT EAR Last administered on 08/19/18 08:44; Admin Dose 5 DROP; Start 08/14/18 at 10:00; Stop 08/20/18 at 21:01 Labetalol HCl (Labetalol) 10 mg Q4H PRN IV ELEVATED SYSTOLIC BP > 180 Last administered on 08/16/18 05:14; Admin Dose 10 MG; Start 08/14/18 at 19:00 Midazolam HCl 50 ml @ 1 mls/hr TITRATE IV Last administered on 08/19/18 11:50; Admin Dose 5 MLS/HR; Start 08/15/18 at 11:00 Hydralazine HCl (Apresoline) 20 mg Q2 PRN IV ELEVATED SYSTOLIC BP Last administered on 08/17/18 18:30; Admin Dose 20 MG; Start 08/16/18 at 08:00 Metronidazole 100 ml @ 100 mls/hr Q8 IVPB Last administered on 08/19/18 13:54; Admin Dose 100 MLS/HR; Start 08/16/18 at 22:00 Carvedilol (Coreg) 12.5 mg Q6H PO Last administered on 08/19/18 12:37; Admin Dose 12.5 MG; Start 08/17/18 at 01:00 Docusate Sodium (Colace Liquid Cup) 100 mg BID GTB Last administered on 08/18/18 09:09; Admin Dose 100 MG; Start 08/18/18 at 09:00 Clopidogrel Bisulfate (plaVIX) 75 mg DAILY NGT Last administered on 08/19/18 08:44; Admin Dose 75 MG; Start 08/18/18 at 13:30 Cefazolin Sodium 50 ml @ 100 mls/hr Q24H IVPB ; Start 08/19/18 at 14:00 Levofloxacin/ Dextrose 50 ml @ 50 mls/hr Q48H IVPB Last administered on 08/19/18 12:39; Admin Dose 50 MLS/HR; Start 08/19/18 at 12:30 Rifaximin (Xifaxan) 200 mg TID PO Last administered on 08/19/18 13:53; Admin Dose 200 MG; Start 08/19/18 at 13:00 Assessment/Plan Hospital Course (Demo Recall) 1. s/p V. fib cardiac arrest 2. Acute myocardial infarction 3. Status post emergent PCI of the 100% occluded LAD as well as PTCA of the diagonal and PCI LCX/ OM 4. Diabetes 5. Respiratory failure status post intubation on the vent 6. Hypertension 7. Renal failure : acute on chronic 8. Likely history of congestive heart failure 9. Dyslipidemia 10. Encephalopathy: Clear anoxic brain injury on hypothermia protocol 11. Morbid obesity 12. Anemia 13. elevated LFT 14. fever, bacteremia pneumonia 15. Malnutrition, anasarca . 16. septic shock and bacteremia 17. oropharyngeal bleedig 18. CVA Recommendations: Continue with aspirin Brilinta was changed to plavix due to recurrent oropharyngeal bleeding as well as patient currently with renal failure on dialysis. BUT will be at high risk of stent thrombosis if stop the plavix Antibiotic management as per ID recommendation HD as per renal Vent support respiratory care as per internal medicine and pulmonary consultants. cont Coreg as tolerated/needed Monitor renal function. f/u renal consult rec regarding hemodialysis PPI . Transfusion prn given her severe anemia and DE/ VF ENT to re-evaluate for oropharyngeal bleeding More than 35 minutes of critical care time was for management treatment is critically patient excluding any procedures Thank you for his referral. We will continue to follow along with you LOIS JOHNSON MD [facility] LOIS JOHNSON MD Aug 19, 2018 14:18
[2018-08-19] MEDS ORDERED: SOD CHLORIDE 0.9% 250 ML IV* ONE (14:50)
[2018-08-19] MEDS: CEFAZOLIN 1 GM/50 ML (PMX) 50 ML IVPB SCH (14:51)
--- NOTE | 2018-08-19 17:07 | PN ---
Date/Time of Note Date/Time of Note DATE: 08/19/18 TIME: 17:01 Assessment/Plan VTE Prophylaxis Risk score (from Nsg)>0 risk: 8 SCD applied (from Nsg): Yes Pharmacological prophylaxis: heparin Lines/Catheters IV Catheter Type (from Nrsg): Urinary Cath still in place: Yes Reason Cath still needed: skin wounds contaminated by urine Assessment/Plan Assessment/Plan Assessment: Dysphagia Status post cardiac arrest Respiratory failure Sepsis -on levophed Abnormal MRI of the brain Status post cardiac catheterization with stents Acute kidney injuryon hemodialysis Obesity Hypertension Plan: Discussed with family regarding need for PEG placement. They had a family meeting and have decided to proceed with the tracheostomy placement. I also spoke with them about the benefits, alternatives, and risk of PEG tube placement. The expressed understanding and are agreeable to proceed. Will plan for PEG placement on Monday. Check INR in am. Hold enteral feeds after midnight Patient seen in collaboration with Subjective: Comfortable appearing in ICU, intubated and sedated. Enteral feedings via NG tube. Plan discussed with nurse. No other acute overnight events. Family has de cided to proceed with tracheostomy and PEG tube placement. PHYSICAL EXAMINATION: GENERAL: Well developed, obese, intubated, on the ventilator, in no acute distress SKIN: No lesions, no stigmata chronic liver disease, no evidence of bleeding diathesis LYMPHATIC: No palpable lymphadenopathy. HEAD: Normocephalic, atraumatic, no tenderness. EYES: Pupils equal reactive to light and accommodation, full extraocular movements, sclera clear, non-icteric, no discharge. EARS/NOSE AND THROAT: Ears normal, nose normal, oropharynx normal, oral membranes well hydrated without lesions. OG tube in place with continuous feeding NECK: Supple, no masses, thyroid normal, JVP within normal limits, carotids norm al without bruits. CHEST: Inspection within normal limits. CARDIOVASCULAR: Heart: Regular rate and rhythm, no murmurs, gallops or rubs. Peripheral pulses present within normal limits, no cyanosis, clubbing or edemas. No pulsatile abdominal mass RESPIRATORY: Lungs clear to auscultation and percussion, no wheezing, no rubs GASTROINTESTINAL AND LIVER: Abdomen: Soft, non tenderness, non-distended, no hernias, no masses, no organomegaly, no ascites, no guarding, no rebound tenderness, normoactive bowel sounds. Rectal: Deferred. GENITOURINARY: Female genitalia within normal limits. Rectal tube in place EXTREMITIES: No cyanosis, generalized edema. Result Diagram: 08/19/18 1201 08/19/18 0434 Results 24hrs Laboratory Tests Test 08/18/18 21:37 08/19/18 04:34 08/19/18 08:54 08/19/18 08:57 Bedside Glucose 142 104 White Blood Count 17.2 H Red Blood Count 3.14 L Hemoglobin 8.6 L Hematocrit 28.6 L Mean Corpuscular 91.1 Volume Mean Corpuscular 27.4 L Hemoglobin Mean Corpuscular 30.1 L Hemoglobin Concen t Red Cell 16.6 H Distribution Width Platelet Count 264 # Mean Platelet 13.9 H Volume Immature 1.500 H Granulocytes % Neutrophils % 78.0 H Lymphocytes % 11.0 L Monocytes % 7.5 Eosinophils % 1.5 Basophils % 0.5 Nucleated Red 0.0 Blood Cells % Immature 0.250 H Granulocytes # Neutrophils # 13.4 H Lymphocytes # 1.9 Monocytes # 1.3 H Eosinophils # 0.3 Basophils # 0.1 Nucleated Red 0.0 Blood Cells # Sodium Level 139 Potassium Level 4.9 Chloride Level 100 Carbon Dioxide 28 Level Anion Gap 11 Blood Urea 52 H Nitrogen Creatinine 3.16 H Est Glomerular 16 L Filtrat Rate mL/min Glucose Level 125 Calcium Level 8.9 Phosphorus Level 5.5 H Magnesium Level 2.2 Blood Gas Blood arterial Specimen Source Arterial Blood 08/19/2018 10:26: Date Drawn 04 AM Arterial Blood pH 7.334 L (Temp corrected) Arterial Blood 51.5 H pCO2 (Temp correct) Arterial Blood 82.4 pO2 (Temp corrected) Arterial Blood 26.8 H HCO3 Arterial Blood 0.5 Base Excess Arterial Blood 96.0 Oxygen Saturation Dajuan Test ACCEPTAB Arterial Blood Right Radial Gas Puncture Site Arterial 0.2 Blood Carboxyhemo globin Arterial Blood 0.3 Methemoglobin Blood Gas A-a O2 252.5 H Differential Oxyhemoglobin 95.5 Percent Blood Gas 37.0 Temperature Blood Gas 20.0 Respiration Rate Blood Gas Actual 22 Respiration Rate Blood Gas VENT - PC Modality FiO2 55.0 Blood Gas Low 5.0 PEEP Setting Blood Gas 32.0 Inspiratory Pressure Blood Gas MDA Notified Whom Blood Gas 08/19/2018 10:33: Notified Time 21 AM Test 08/19/18 12:01 Hemoglobin 7.6 L Hematocrit 25.5 L CC: PATSY HI ; Exam/Review of Systems Exam Vitals Vital Signs Date Temp Pulse Resp B/P (MAP) Pulse Ox O2 O2 Flow FiO2 Time Delivery Rate 08/19/18 113 16:00 08/19/18 21 100 55 16:00 08/19/18 143/105 13:00 (118) 08/19/18 98.7 12:00 08/19/18 Mechanical 03:00 Ventilator Intake and Output 08/18/18 08/18/18 08/19/18 1414:59 22:59 06:59 IntakeIntake Total 537 ml 652 ml 712 ml OutputOutput Total 0 ml 4500 ml 50 ml BalanceBalance 537 ml -3848 ml 662 ml Results Results 24hrs Laboratory Tests Test 08/18/18 21:37 08/19/18 04:34 08/19/18 08:54 08/19/18 08:57 Bedside Glucose 142 104 White Blood Count 17.2 H Red Blood Count 3.14 L Hemoglobin 8.6 L Hematocrit 28.6 L Mean Corpuscular 91.1 Volume Mean Corpuscular 27.4 L Hemoglobin Mean Corpuscular 30.1 L Hemoglobin Concen t Red Cell 16.6 H Distribution Width Platelet Count 264 # Mean Platelet 13.9 H Volume Immature 1.500 H Granulocytes % Neutrophils % 78.0 H Lymphocytes % 11.0 L Monocytes % 7.5 Eosinophils % 1.5 Basophils % 0.5 Nucleated Red 0.0 Blood Cells % Immature 0.250 H Granulocytes # Neutrophils # 13.4 H Lymphocytes # 1.9 Monocytes # 1.3 H Eosinophils # 0.3 Basophils # 0.1 Nucleated Red 0.0 Blood Cells # Sodium Level 139 Potassium Level 4.9 Chloride Level 100 Carbon Dioxide 28 Level Anion Gap 11 Blood Urea 52 H Nitrogen Creatinine 3.16 H Est Glomerular 16 L Filtrat Rate mL/min Glucose Level 125 Calcium Level 8.9 Phosphorus Level 5.5 H Magnesium Level 2.2 Blood Gas Blood arterial Specimen Source Arterial Blood 08/19/2018 10:26: Date Drawn 04 AM Arterial Blood pH 7.334 L (Temp corrected) Arterial Blood 51.5 H pCO2 (Temp correct) Arterial Blood 82.4 pO2 (Temp corrected) Arterial Blood 26.8 H HCO3 Arterial Blood 0.5 Base Excess Arterial Blood 96.0 Oxygen Saturation Dajuan Test ACCEPTAB Arterial Blood Right Radial Gas Puncture Site Arterial 0.2 Blood Carboxyhemo globin Arterial Blood 0.3 Methemoglobin Blood Gas A-a O2 252.5 H Differential Oxyhemoglobin 95.5 Percent Blood Gas 37.0 Temperature Blood Gas 20.0 Respiration Rate Blood Gas Actual 22 Respiration Rate Blood Gas VENT - PC Modality FiO2 55.0 Blood Gas Low 5.0 PEEP Setting Blood Gas 32.0 Inspiratory Pressure Blood Gas MDA Notified Whom Blood Gas 08/19/2018 10:33: Notified Time 21 AM Test 08/19/18 12:01 Hemoglobin 7.6 L Hematocrit 25.5 L Medications Medication Current Medications Norepinephrine 250 ml @ 1.875 mls/ hr TITRATE IV Last administered on 08/10/18 00:41; Admin Dose 5.625 MLS/HR; Start 08/04/18 at 23:15 Morphine Sulfate (morphine) 1 mg Q1H PRN IV PAIN Last administered on 08/17/18 18:30; Admin Dose 1 MG; Start 08/04/18 at 23:30 Atorvastatin Calcium (Lipitor) 80 mg DAILY@21 PO Last administered on 08/18/18 21:34; Admin Dose 80 MG; Start 08/05/18 at 21:00 Nitroglycerin/ Dextrose 250 ml @ 1.5 mls/hr TITRATE IV Last administered on 08/05/18 14:22; Admin Dose 72 MLS/HR; Start 08/05/18 at 01:00 Miscellaneous Information 1 ea NOTE XX ; Start 08/05/18 at 09:00 Acetaminophen (Tylenol Supp) 650 mg Q4H PRN [place] TEMP > 37C Last administered on 08/09/18at 04:37; Admin Dose 650 MG; Start 08/05/18 at 11:00 Acetaminophen (Tylenol Liquid) 650 mg Q4H PRN PO TEMP > 37C Last administered on 08/18/18 23:17; Admin Dose 650 MG; Start 08/05/18 at 11:00 Meperidine HCl (Demerol) 25 mg Q4H PRN IV POST OPERATIVE SHIVERING Last admi nistered on 08/05/18at 16:31; Admin Dose 25 MG; Start 08/05/18 at 11:00 Eye Lubricant (Akwa Oint) 1 applic Q6 BOTH EYES Last administered on 08/19/18 11:50; Admin Dose 1 APPLIC; Start 08/05/18 at 12:00 Eye Lubricant (Artificial Tears Oph) 2 drop Q6 BOTH EYES Last administered on 08/19/18 11:50; Admin Dose 2 DROP; Start 08/05/18 at 12:00 Insulin Human Regular 100 unit/ Sodium Chloride 100 ml @ 0 mls/hr PER PROTOCOL IV ; Start 08/05/18 at 12:00 Miscellaneous Information (* Miscellaneous Pharmacy Order) Treatment of Hypoglycemia: 1.BG 51... Per protocol XX ; Start 08/05/18 at 12:00 Dextrose (D50w Syringe) 25 ml Q15M PRN IV .DECREASED GLUCOSE; Start 08/05/18 at 12:00 Dextrose (D50w Syringe) 50 ml Q15M PRN IV .DECREASED GLUCOSE; Start 08/05/18 at 12:00 Fentanyl 100 ml @ 2.5 mls/hr TITRATE IV Last administered on 08/19/18 08:52; Admin Dose 7 MLS/HR; Start 08/05/18 at 12:00 Meperidine HCl (Demerol) 12.5 mg Q2H PRN IV POST OPERATIVE SHIVERING; Start 08/05/18 at 17:00 Aspirin (Aspirin) 81 mg DAILY NGT Last administered on 08/19/18 08:43; Admin Dose 81 MG; Start 08/06/18 at 09:00 Diagnostic Test (Pha) (Accu-Chek) 1 ea Q12 XX Last administered on 08/19/18 09:01; Admin Dose 1 EA; Start 08/06/18 at 21:00 Multivitamins (Multivitamin) 30 ml DAILY NGT Last administered on 08/19/18 08:43; Admin Dose 30 ML; Start 08/09/18 at 09:00 Zinc Sulfate (Zinc Sulfate) 220 mg DAILY NGT Last administered on 08/19/18 08:44; Admin Dose 220 MG; Start 08/09/18 at 09:00 Folic Acid (Folic Acid) 1 mg DAILY NGT Last administered on 08/19/18 08:44; Admin Dose 1 MG; Start 08/09/18 at 09:00 Ascorbic Acid (Vitamin C) 500 mg DAILY NGT Last administered on 08/19/18 08:44; Admin Dose 500 MG; Start 08/09/18 at 09:00 Albuterol (Ventolin Hfa) 4 puff Q6HWA RESP THERAPY INH Last administered on 14:17; Admin Dose 4 PUFF; Start 08/09/18 at 14:00 Ipratropium [place] (Atrovent Hfa) 4 puff Q6H RESP THERAPY INH Last administered on 08/19/18 14:17; Admin Dose 4 PUFF; Start 08/09/18 at 14:00 IV Flush (NS 10 ml) 10 ml PRN PRN IV IV PROTOCOL; Start 08/11/18 at 16:30 Lansoprazole (Prevacid) 30 mg 0600,1800 PEG Last administered on 08/19/18 05:28; Admin Dose 30 MG; Start 08/11/18 at 18:28 Heparin Sodium (Porcine) (Heparin (1000 Units/ml)) 3,000 unit PRN PRN CATHETER Dialysis Last administered on 08/18/18 17:48; Admin Dose 3,000 UNIT; Start 08/12/18 at 14:30 Ciprofloxacin HCl (Ciprofloxacin HCl Otic) 5 drop BID LEFT EAR Last administered on 08/19/18 08:44; Admin Dose 5 DROP; Start 08/14/18 at 10:00; Stop 08/20/18 at 21:01 Labetalol HCl (Labetalol) 10 mg Q4H PRN IV ELEVATED SYSTOLIC BP > 180 Last administered on 08/16/18 05:14; Admin Dose 10 MG; Start 08/14/18 at 19:00 Midazolam HCl 50 ml @ 1 mls/hr TITRATE IV Last administered on 08/19/18 11:50; Admin Dose 5 MLS/HR; Start 08/15/18 at 11:00 Hydralazine HCl (Apresoline) 20 mg Q2 PRN IV ELEVATED SYSTOLIC BP Last admi nistered on 08/17/18 18:30; Admin Dose 20 MG; Start 08/16/18 at 08:00 Metronidazole 100 ml @ 100 mls/hr Q8 IVPB Last administered on 08/19/18 13:54; Admin Dose 100 MLS/HR; Start 08/16/18 at 22:00 Carvedilol (Coreg) 12.5 mg Q6H PO Last administered on 08/19/18 12:37; Admin Dose 12.5 MG; Start 08/17/18 at 01:00 Docusate Sodium (Colace Liquid Cup) 100 mg BID GTB Last administered on 08/18/18 09:09; Admin Dose 100 MG; Start 08/18/18 at 09:00 Clopidogrel Bisulfate (plaVIX) 75 mg DAILY NGT Last administered on 08/19/18 08:44; Admin Dose 75 MG; Start 08/18/18 at 13:30 Cefazolin Sodium 50 ml @ 100 mls/hr Q24H IVPB Last administered on 08/19/18 14:51; Admin Dose 100 MLS/HR; Start 08/19/18 at 14:00 Levofloxacin/ Dextrose 50 ml @ 50 mls/hr Q48H IVPB Last administered on 08/19/18 12:39; Admin Dose 50 MLS/HR; Start 08/19/18 at 12:30 Rifaximin (Xifaxan) 200 mg TID PO Last administered on 08/19/18 13:53; Admin Dose 200 MG; Start 08/19/18 at 13:00 NICKI GARZA NP Aug 19, 2018 17:06
[2018-08-19] MEDS: ATORVASTATIN 80 MG TAB PO SCH (20:57)
[2018-08-20] VITALS (59 sets, daily range): BP systolic 99–190; BP diastolic 58–119; PULSE 100–122; RESP 8–46
[2018-08-20] MEDS: ARTIFICIAL TEARS 15 ML OPH BOTH EYES SCH ×4 (00:06→17:23)
[2018-08-20] MEDS: OCULAR LUBRICANT 3.5 GM OPH OINT BOTH EYES SCH ×4 (00:06→17:22)
[2018-08-20] MEDS: MIDAZOLAM (DRIP) 50 mg/50 mL 50 ML IV SCH (00:16)
[2018-08-20] MEDS: FENTAnyl (DRIP) 1000 mcg/100mL 100 ML IV SCH (00:18)
[2018-08-20] MEDS: IPRATROPIUM (HFA) 12.9 GM INHALER INH SCH ×4 (02:30→19:27)
[2018-08-20] MEDS: LANSOPRAZOLE 30 MG CAP PEG SCH ×2 (06:00→17:23)
[2018-08-20] MEDS: metroNIDAZOLE 500 MG/NS (PMX) 100 ML IVPB SCH ×3 (06:07→21:00)
--- NOTE | 2018-08-20 07:42 | PN ---
Date/Time of Note Date/Time of Note DATE: 08/20/18 TIME: 07:42 Assessment/Plan Lines/Catheters IV Catheter Type (from Nrsg): PICC Line [place] in Place (from Nrsg): Yes Assessment/Plan Assessment/Plan Assessment/Plan Respiratory failure Awaiting family conference Possible tracheostomy if family is agreeable Subjective 24 Hr Interval Summary Constitutional: improved Pain Control: mild Exam/Review of Systems Vital Signs Vitals Vital Signs Date Temp Pulse Resp B/P (MAP) Pulse Ox O2 O2 Flow FiO2 Time Delivery Rate 08/20/18 112 46 132/80 98 07:00 (97) 08/20/18 Mechanical 06:00 Ventilator 08/20/18 55 05:07 08/20/18 98.8 04:00 Intake and Output 08/19/18 08/19/18 08/20/18 1515:00 23:00 07:00 IntakeIntake Total 549 ml 1026 ml 366 ml OutputOutput Total 30 ml 90 ml BalanceBalance 549 ml 996 ml 276 ml Exam Eyes: nl conjunctiva, EOMI, nl lids, nl sclera ENMT: nl external ears & nose, nl lips & teeth, nl nasal mucosa & septum, muc van pink and moist Neck: supple, non-tender Respiratory: clear to auscultation, normal air movement Cardiovascular: regular rate and rhythm, nl pulses Gastrointestinal: soft, nl liver, spleen, non-tender Musculoskeletal: nl extremities to inspection, nl gait and stance Results Result Diagram: 08/20/18 0500 08/20/18 0500 KRISTOFER BAKER MD Aug 20, 2018 07:42
[2018-08-20] MEDS: ALBUTEROL HFA 8 GM INHALER INH SCH ×3 (07:59→19:26)
[2018-08-20] MEDS: DOCUSATE SODIUM 10 MG/ML (10ML CUP) GTB SCH ×2 (08:53→20:50)
[2018-08-20] MEDS: CLOPIDOGREL 75 MG TAB NGT SCH (08:53)
[2018-08-20] MEDS: CIPROFLOXACIN HCL OTIC DROP 0.25 ML LEFT EAR SCH ×2 (08:53→20:56)
[2018-08-20] MEDS: MULTIVITAMINS 30 ML CUP NGT SCH (08:54)
[2018-08-20] MEDS: FOLIC ACID 1 MG TAB NGT SCH (08:54)
[2018-08-20] MEDS: RIFAXIMIN 200 MG TAB PO SCH ×3 (08:54→20:50)
[2018-08-20] MEDS: ZINC SULFATE 220 MG CAP NGT SCH (08:54)
[2018-08-20] MEDS: ASCORBIC ACID 500 MG TAB NGT SCH (08:54)
[2018-08-20] MEDS: ASPIRIN 81 MG TAB NGT SCH (08:54)
[2018-08-20] MEDS: ACCU-CHEK XX SCH (09:00)
--- NOTE | 2018-08-20 09:09 | PN ---
Date/Time of Note Date/Time of Note DATE: 08/20/18 TIME: 09:09 Assessment/Plan VTE Prophylaxis Risk score (from Nsg)>0 risk: 11 SCD applied (from Nsg): Yes Pharmacological prophylaxis: NA/contraindicated Pharm contraindication: bleeding Lines/Catheters IV Catheter Type (from Nrsg): PICC Line Central line still needed: Yes Urinary Cath still in place: Yes Reason Cath still needed: terminal illness/intractable pain Assessment/Plan Assessment/Plan 1. Acute hypoxic respiratory failure - patient remains intubated and discussed with family need to decide on whether to place Trach and PEG or proceed to comfort measures. Plans for family meeting today to decide - Pulm on board for vent management. appreciate consultation 2. Acute toxic/metabolic encephalopathy - Neurology on board and appreciate recommendations. Imaging of head noted with bilateral CVA and most likely component of anoxic encephalopathy due to cardiac arrest - Continue monitoring for improvement in mentation 3. Bilateral CVA - Found on MRI, likely thromboembolic secondary to cardiopulmonary arrest per neurology - Neuro input appreciated and on anticoagulation 4. Anemia, blood loss and renal disease - ENT consultation appreciated and bleeding could be from tongue laceration - Unable to discontinue anticoagulation and will monitor H/H and further episodes of bleeding - Hgb remains stable and no need for transfusion at this time 5. Bilateral Pneumonia - CXR noted - Pulm on board and appreciate recommendations. Will continue current management and monitor for improvement in respiratory status. unable to wean at this time 6. Septic shock secondary to PNA and bacteremia - WBC trending down - Blood cultures and sputum culture results noted. - ID on board 7. Left auditory canal bleeding- resolved - on Cipro ear drops 8. Sinus infection - Continue IV antibiotics and eardrops - ID recommendations appreciated 9. CAD s/p PCI x2 - Cardiology on board and appreciate recommendations. Stressed importance of continuing DAPT given recent stent placements and high risk of restenosis - s/p emergent Cath 08/05 with successful PTCA and stenting of proximal and mid LAD, PTCA of the large first diagonal and thrombectomy of the LAD - Repeat PCI on 08/07 performed with stenting to LCx - plans for stenting of RCA prior to discharge if possible - ECHO results noted 10. Renal failure on HD - Nephrology on board and appreciate recommendations. Continue HD - secondary to septic shock, ATN vs prerenal vs contrast induced nephropathy - will avoid nephrotoxic agents 11. Diabetes - A1c noted and no need to continue accuchecks 12. V-fib cardiac arrest secondary to STEMI - Completed hypothermia protocol - unknown how long patient was down for in the field 13. Disposition - Continue close monitoring in ICU while requiring vent management. - Family to discuss if going to proceed with trach/peg >35 minutes of critical care time spent with patient and family at bedside Result Diagram: 08/20/18 0500 08/20/18 0500 Results 24hrs Laboratory Tests Test 08/19/18 12:01 08/19/18 19:02 08/19/18 21:10 08/20/18 00:47 Hemoglobin 7.6 L 7.3 L 8.9 #L Hematocrit 25.5 L 23.9 L 28.8 #L Bedside Glucose 122 Test 08/20/18 05:00 08/20/18 05:29 08/20/18 09:02 White Blood Count 13.4 #H Red Blood Count 3.14 L Hemoglobin 8.7 L Hematocrit 28.2 L Mean Corpuscular 89.8 Volume Mean Corpuscular 27.7 L Hemoglobin Mean Corpuscular 30.9 L Hemoglobin Concen t Red Cell 15.6 H Distribution Width Platelet Count 248 Mean Platelet 14.1 H Volume Immature 1.200 H Granulocytes % Neutrophils % 76.2 Lymphocytes % 12.2 L Monocytes % 6.9 Eosinophils % 2.8 Basophils % 0.7 Nucleated Red 0.0 Blood Cells % Immature 0.160 H Granulocytes # Neutrophils # 10.2 H Lymphocytes # 1.6 Monocytes # 0.9 Eosinophils # 0.4 Basophils # 0.1 Nucleated Red 0.0 Blood Cells # Prothrombin Time 15.3 H Prothrombin Time 1.2 Ratio INR International 1.20 Normalized Ratio Activated 37.1 H Partial Thrombopl ast Time Sodium Level 138 Potassium Level 5.3 H Chloride Level 104 Carbon Dioxide 24 Level Anion Gap 10 Blood Urea 83 #H Nitrogen Creatinine 4.34 #H Est Glomerular 11 L Filtrat Rate mL/min Glucose Level 85 # Calcium Level 8.9 Phosphorus Level 6.0 H Magnesium Level 2.2 Lab Scanned BLOOD TRANSFUSION Report Bedside Glucose 107 Subjective 24 Hr Interval Summary Free Text/Dictation Patient remains intubated. Opening eyes to voice and touch but not following commands this am. Family at bedside and plan of care discussed with Father. Plans for family meeting today to determine if proceeding with PEG/Trach Exam/Review of Systems Exam Vitals Vital Signs Date Temp Pulse Resp B/P (MAP) Pulse Ox O2 O2 Flow FiO2 Time Delivery Rate 08/20/18 112 46 132/80 98 07:00 (97) 08/20/18 Mechanical 06:00 Ventilator 08/20/18 55 05:07 08/20/18 98.8 04:00 Intake and Output 08/19/18 08/19/18 08/20/18 1515:00 23:00 07:00 IntakeIntake Total 549 ml 1026 ml 366 ml OutputOutput Total 30 ml 90 ml BalanceBalance 549 ml 996 ml 276 ml Exam General: Patient is laying in bed intubated and sedated. opens eyes but not following commands Eyes: EOMI, pupils reactive to light Neck: Supple, nontender, midline Respiratory: Coarse to auscultation bilaterally. no wheezing appreciated Cardiovascular: regular rhythm, tachycardia, no obvious murmurs Gastrointestinal: soft, non-tender to palpation, bowel sounds heard. Neurological: Sedated Skin: No new skin lesions Results Results 24hrs Laboratory Tests Test 08/19/18 12:01 08/19/18 19:02 08/19/18 21:10 08/20/18 00:47 Hemoglobin 7.6 L 7.3 L 8.9 #L Hematocrit 25.5 L 23.9 L 28.8 #L Bedside Glucose 122 Test 08/20/18 05:00 08/20/18 05:29 08/20/18 09:02 White Blood Count 13.4 #H Red Blood Count 3.14 L Hemoglobin 8.7 L Hematocrit 28.2 L Mean Corpuscular 89.8 Volume Mean Corpuscular 27.7 L Hemoglobin Mean Corpuscular 30.9 L Hemoglobin Concen t Red Cell 15.6 H Distribution Width Platelet Count 248 Mean Platelet 14.1 H Volume Immature 1.200 H Granulocytes % Neutrophils % 76.2 Lymphocytes % 12.2 L Monocytes % 6.9 Eosinophils % 2.8 Basophils % 0.7 Nucleated Red 0.0 Blood Cells % Immature 0.160 H Granulocytes # Neutrophils # 10.2 H Lymphocytes # 1.6 Monocytes # 0.9 Eosinophils # 0.4 Basophils # 0.1 Nucleated Red 0.0 Blood Cells # Prothrombin Time 15.3 H Prothrombin Time 1.2 Ratio INR International 1.20 Normalized Ratio Activated 37.1 H Partial Thrombopl ast Time Sodium Level 138 Potassium Level 5.3 H Chloride Level 104 Carbon Dioxide 24 Level Anion Gap 10 Blood Urea 83 #H Nitrogen Creatinine 4.34 #H Est Glomerular 11 L Filtrat Rate mL/min Glucose Level 85 # Calcium Level 8.9 Phosphorus Level 6.0 H Magnesium Level 2.2 Lab Scanned BLOOD TRANSFUSION Report Bedside Glucose 107 Medications Medication Current Medications Norepinephrine 250 ml @ 1.875 mls/ hr TITRATE IV Last administered on 08/10/18 00:41; Admin Dose 5.625 MLS/HR; Start 08/04/18 at 23:15 Morphine Sulfate (morphine) 1 mg Q1H PRN IV PAIN Last administered on 08/17/18 18:30; Admin Dose 1 MG; Start 08/04/18 at 23:30 Atorvastatin Calcium (Lipitor) 80 mg DAILY@21 PO Last administered on 08/19/18 20:57; Admin Dose 80 MG; Start 08/05/18 at 21:00 Nitroglycerin/ Dextrose 250 ml @ 1.5 mls/hr TITRATE IV Last administered on 08/05/18 14:22; Admin Dose 72 MLS/HR; Start 08/05/18 at 01:00 Miscellaneous Information 1 ea NOTE XX ; Start 08/05/18 at 09:00 Acetaminophen (Tylenol Supp) 650 mg Q4H PRN [place] TEMP > 37C Last administered on 08/09/18 04:37; Admin Dose 650 MG; Start 08/05/18 at 11:00 Acetaminophen (Tylenol Liquid) 650 mg Q4H PRN PO TEMP > 37C Last administered on 08/18/18 23:17; Admin Dose 650 MG; Start 08/05/18 at 11:00 Meperidine HCl (Demerol) 25 mg Q4H PRN IV POST OPERATIVE SHIVERING Last administered on 08/05/18 16:31; Admin Dose 25 MG; Start 08/05/18 at 11:00 Eye Lubricant (Akwa Oint) 1 applic Q6 BOTH EYES Last administered on 08/20/18 06:06; Admin Dose 1 APPLIC; Start 08/05/18 at 12:00 Eye Lubricant (Artificial Tears Oph) 2 drop Q6 BOTH EYES Last administered on 08/20/18 06:06; Admin Dose 2 DROP; Start 08/05/18 at 12:00 Insulin Human Regular 100 unit/ Sodium Chloride 100 ml @ 0 mls/hr PER PROTOCOL IV ; Start 08/05/18 at 12:00 Miscellaneous Information (* Miscellaneous Pharmacy Order) Treatment of Hypoglycemia: 1.BG 51... Per protocol XX ; Start 08/05/18 at 12:00 Dextrose (D50w Syringe) 25 ml Q15M PRN IV .DECREASED GLUCOSE; Start 08/05/18 at 12:00 Dextrose (D50w Syringe) 50 ml Q15M PRN IV .DECREASED GLUCOSE; Start 08/05/18 at 12:00 Fentanyl 100 ml @ 2.5 mls/hr TITRATE IV Last administered on 08/20/18 00:18; Admin Dose 7 MLS/HR; Start 08/05/18 at 12:00 Meperidine HCl (Demerol) 12.5 mg Q2H PRN IV POST OPERATIVE SHIVERING; Start 08/05/18 at 17:00 Aspirin (Aspirin) 81 mg DAILY NGT Last administered on 08/20/18 08:54; Admin Dose 81 MG; Start 08/06/18 at 09:00 Diagnostic Test (Pha) (Accu-Chek) 1 ea Q12 XX Last administered on 08/19/18 09:01; Admin Dose 1 EA; Start 08/06/18 at 21:00 Multivitamins (Multivitamin) 30 ml DAILY NGT Last administered on 08/20/18 08:54; Admin Dose 30 ML; Start 08/09/18 at 09:00 Zinc Sulfate (Zinc Sulfate) 220 mg DAILY NGT Last administered on 08/20/18 08:54; Admin Dose 220 MG; Start 08/09/18 at 09:00 Folic Acid (Folic Acid) 1 mg DAILY NGT Last administered on 08/20/18 08:54; Admin Dose 1 MG; Start 08/09/18 at 09:00 Ascorbic Acid (Vitamin C) 500 mg DAILY NGT Last administered on 08/20/18 08:54; Admin Dose 500 MG; Start 08/09/18 at 09:00 Albuterol (Ventolin Hfa) 4 puff Q6HWA RESP THERAPY INH Last administered on 08/20/18 07:59; Admin Dose 4 PUFF; Start 08/09/18 at 14:00 Ipratropium [place] (Atrovent Hfa) 4 puff Q6H RESP THERAPY INH Last administered on 08/20/18 07:58; Admin Dose 4 PUFF; Start 08/09/18 at 14:00 IV Flush (NS 10 ml) 10 ml PRN PRN IV IV PROTOCOL; Start 08/11/18 at 16:30 Lansoprazole (Prevacid) 30 mg 0600,1800 PEG Last administered on 08/19/18 18:42; Admin Dose 30 MG; Start 08/11/18 at 18:28 Heparin Sodium (Porcine) (Heparin (1000 Units/ml)) 3,000 unit PRN PRN CATHETER Dialysis Last administered on 08/18/18 17:48; Admin Dose 3,000 UNIT; Start 08/12/18 at 14:30 Ciprofloxacin HCl (Ciprofloxacin HCl Otic) 5 drop BID LEFT EAR Last administered on 08/20/18 08:53; Admin Dose 5 DROP; Start 08/14/18 at 10:00; Stop 08/20/18 at 21:01 Labetalol HCl (Labetalol) 10 mg Q4H PRN IV ELEVATED SYSTOLIC BP > 180 Last administered on 08/16/18 05:14; Admin Dose 10 MG; Start 08/14/18 at 19:00 Midazolam HCl 50 ml @ 1 mls/hr TITRATE IV Last administered on 08/20/18 00:16; Admin Dose 5 MLS/HR; Start 08/15/18 at 11:00 Hydralazine HCl (Apresoline) 20 mg Q2 PRN IV ELEVATED SYSTOLIC BP Last administered on 08/17/18 18:30; Admin Dose 20 MG; Start 08/16/18 at 08:00 Metronidazole 100 ml @ 100 mls/hr Q8 IVPB Last administered on 08/20/18 06:07; Admin Dose 100 MLS/HR; Start 08/16/18 at 22:00 Carvedilol (Coreg) 12.5 mg Q6H PO Last administered on 08/20/18 06:07; Admin Dose 12.5 MG; Start 08/17/18 at 01:00 Docusate Sodium (Colace Liquid Cup) 100 mg BID GTB Last administered on 08:53; Admin Dose 100 MG; Start 08/18/18 at 09:00 Clopidogrel Bisulfate (plaVIX) 75 mg DAILY NGT Last administered on 08/19/18 08:44; Admin Dose 75 MG; Start 08/18/18 at 13:30 Cefazolin Sodium 50 ml @ 100 mls/hr Q24H IVPB Last administered on 08/19/18at 14:51; Admin Dose 100 MLS/HR; Start 08/19/18 at 14:00 Levofloxacin/ Dextrose 50 ml @ 50 mls/hr Q48H IVPB Last administered on 08/19/18 12:39; Admin Dose 50 MLS/HR; Start 08/19/18 at 12:30 Rifaximin (Xifaxan) 200 mg TID PO Last administered on 08/20/18 08:54; Admin Dose 200 MG; Start 08/19/18 at 13:00 THOMAS RILEY MD Aug 20, 2018 09:09
--- NOTE | 2018-08-20 09:28 | PN ---
DATE: 08/20/2018 SUBJECTIVE: The patient remains critically ill on full ventilatory support. No other acute events n oted. No hemoptysis, hematemesis or hematochezia. The patient has minimal urinary output. OBJECTIVE: VITAL SIGNS: Blood pressure is 130/80, respiration is 46, pulse 112, temperature 98.6. HEENT: Head is normocephalic. NECK: Supple. HEART: Regular rate. LUNGS: Show diminished breath sounds at base. ABDOMEN: Soft, nontender to palpation without rebound or guarding. EXTREMITIES: Negative for clubbing, cyanosis, no edema. DERMATOLOGIC: No rashes. MUSCULOSKELETAL: Joint effusion. NEUROLOGIC: No change in exam. MEDICATIONS: The patient's medications have been reviewed. LABORATORY DATA: Shows sodium 138, potassium 5.3, BUN 83, creatinine 4.34 phosphorus 6.0. White cou nt 13.4, hemoglobin 8.7, platelet count is 248. The patient's urinalysis was reviewed. Serologies w ere reviewed. ASSESSMENT AND PLAN: 1. Anuric acute kidney injury with previously normal baseline creatinine. Etiology of acute kidney injury is secondary to acute tubular necrosis due to shock, contrast contrast-associated nephropathy and sepsis. The patient remains dialysis dependent. Will have dialysis today for 3 hours 2k bath, c alcium 2.5. 2. Ventilator dependent respiratory failure. Vent settings and ABG was reviewed. Continue to monit or. 3. Cardiac arrest/ST elevated myocardial infarction. The patient is status post cardiac catheteriza tion with possible stent placement. Continue medical management. Follow up with cardiology. 4. Mineral bone disorder, monitor calcium and phosphorus levels. 5. Volume overload. Continue ultrafiltration with hemodialysis. 6. Status post shock secondary to pneumonia bacteremia. Patient completing antibiotic course. 7. Metabolic acidosis, improved. Continue to monitor. 8. Anemia. Monitor hemoglobin and hematocrit levels. 9. Acute encephalopathy. Etiology secondary to anoxic injury, and acute cerebrovascular accident. The patient's MRI was reviewed. Continue to monitor. Follow up with neurology. 10. GI and DVT prophylaxis. Dictated By: BHUMI REDDY DO NR/NTS Conf#: [id number] DID#: [id number] CC: DANIAL TUCKER MD;*EndCC*
--- NOTE | 2018-08-20 09:58 | CONS ---
Consult Date/Type/Reason Admit Date/Time Aug 04, 2018 at 23:10 Initial Consult Date 08/05/18 Type of Consult Pulmonary Requesting Provider: HARPAL AGGARWAL MD Date/Time of Note DATE: 08/20/18 TIME: 09:56 Subjective FiO2 decreased to 40%. Opening eyes and beginning to follow commands. Still has a few secretions requiring pulmonary toilet although no longer bloody. Objective Vital Signs Date Temp Pulse Resp B/P (MAP) Pulse Ox O2 O2 Flow FiO2 Time Delivery Rate 08/20/18 105 08:00 08/20/18 46 132/80 98 07:00 (97) 08/20/18 Mechanical 06:00 Ventilator 08/20/18 55 05:07 08/20/18 98.8 04:00 Intake and Output 08/19/18 08/19/18 08/20/18 1515:00 23:00 07:00 IntakeIntake Total 549 ml 1026 ml 366 ml OutputOutput Total 30 ml 90 ml BalanceBalance 549 ml 996 ml 276 ml Exam GENERAL: Well-nourished well-developed lady orally intubated on mechanical ventilation VITAL SIGNS: per chart NECK: Supple. No JVD or lymphadenopathy. CARDIAC EXAM: S1, S2. No added sounds or murmurs. CHEST: Diminished air entry bilaterally ABDOMEN: Mildly distended but no guarding or rebound EXTREMITIES: No cyanosis, clubbing edema +2 NEUROLOGIC: Generalized weakness. Vent Setting Ventilator Support Mode: PC Fraction of Inspired Oxygen pe: 55 Positive End Expiratory Pressu: 5.0 Results/Medications Result Diagram: 08/20/18 0500 08/20/18 0500 Results 24 hrs Laboratory Tests Test 08/19/18 12:01 08/19/18 19:02 08/19/18 21:10 08/20/18 00:47 Hemoglobin 7.6 L 7.3 L 8.9 #L Hematocrit 25.5 L 23.9 L 28.8 #L Bedside Glucose 122 Test 08/20/18 05:00 08/20/18 05:29 08/20/18 09:02 White Blood Count 13.4 #H Red Blood Count 3.14 L Hemoglobin 8.7 L Hematocrit 28.2 L Mean Corpuscular 89.8 Volume Mean Corpuscular 27.7 L Hemoglobin Mean Corpuscular 30.9 L Hemoglobin Concen t Red Cell 15.6 H Distribution Width Platelet Count 248 Mean Platelet 14.1 H Volume Immature 1.200 H Granulocytes % Neutrophils % 76.2 Lymphocytes % 12.2 L Monocytes % 6.9 Eosinophils % 2.8 Basophils % 0.7 Nucleated Red 0.0 Blood Cells % Immature 0.160 H Granulocytes # Neutrophils # 10.2 H Lymphocytes # 1.6 Monocytes # 0.9 Eosinophils # 0.4 Basophils # 0.1 Nucleated Red 0.0 Blood Cells # Prothrombin Time 15.3 H Prothrombin Time 1.2 Ratio INR International 1.20 Normalized Ratio Activated 37.1 H Partial Thrombopl ast Time Sodium Level 138 Potassium Level 5.3 H Chloride Level 104 Carbon Dioxide 24 Level Anion Gap 10 Blood Urea 83 #H Nitrogen Creatinine 4.34 #H Est Glomerular 11 L Filtrat Rate mL/min Glucose Level 85 # Calcium Level 8.9 Phosphorus Level 6.0 H Magnesium Level 2.2 Lab Scanned BLOOD TRANSFUSION Report Bedside Glucose 107 Medications Current Medications Norepinephrine 250 ml @ 1.875 mls/ hr TITRATE IV Last administered on 08/10/18at 00:41; Admin Dose 5.625 MLS/HR; Start 08/04/18 at 23:15 Morphine Sulfate (morphine) 1 mg Q1H PRN IV PAIN Last administered on 08/17/18 18:30; Admin Dose 1 MG; Start 08/04/18 at 23:30 Atorvastatin Calcium (Lipitor) 80 mg DAILY@21 PO Last administered on 08/19/18 20:57; Admin Dose 80 MG; Start 08/05/18 at 21:00 Nitroglycerin/ Dextrose 250 ml @ 1.5 mls/hr TITRATE IV Last administered on 08/05/18at 14:22; Admin Dose 72 MLS/HR; Start 08/05/18 at 01:00 Miscellaneous Information 1 ea NOTE XX ; Start 08/05/18 at 09:00 Acetaminophen (Tylenol Supp) 650 mg Q4H PRN [place] TEMP > 37C Last administered on 08/09/18at 04:37; Admin Dose 650 MG; Start 08/05/18 at 11:00 Acetaminophen (Tylenol Liquid) 650 mg Q4H PRN PO TEMP > 37C Last administered on 08/18/18 23:17; Admin Dose 650 MG; Start 08/05/18 at 11:00 Meperidine HCl (Demerol) 25 mg Q4H PRN IV POST OPERATIVE SHIVERING Last administered on 08/05/18 16:31; Admin Dose 25 MG; Start 08/05/18 at 11:00 Eye Lubricant (Akwa Oint) 1 applic Q6 BOTH EYES Last administered on 08/20/18 06:06; Admin Dose 1 APPLIC; Start 08/05/18 at 12:00 Eye Lubricant (Artificial Tears Oph) 2 drop Q6 BOTH EYES Last administered on 08/20/18 06:06; Admin Dose 2 DROP; Start 08/05/18 at 12:00 Insulin Human Regular 100 unit/ Sodium Chloride 100 ml @ 0 mls/hr PER PROTOCOL IV ; Start 08/05/18 at 12:00 Miscellaneous Information (* Miscellaneous Pharmacy Order) Treatment of Hypoglycemia: 1.BG 51... Per protocol XX ; Start 08/05/18 at 12:00 Dextrose (D50w Syringe) 25 ml Q15M PRN IV .DECREASED GLUCOSE; Start 08/05/18 at 12:00 Dextrose (D50w Syringe) 50 ml Q15M PRN IV .DECREASED GLUCOSE; Start 08/05/18 at 12:00 Fentanyl 100 ml @ 2.5 mls/hr TITRATE IV Last administered on 08/20/18 00:18; Admin Dose 7 MLS/HR; Start 08/05/18 at 12:00 Meperidine HCl (Demerol) 12.5 mg Q2H PRN IV POST OPERATIVE SHIVERING; Start 08/05/18 at 17:00 Aspirin (Aspirin) 81 mg DAILY NGT Last administered on 08/20/18 08:54; Admin Dose 81 MG; Start 08/06/18 at 09:00 Diagnostic Test (Pha) (Accu-Chek) 1 ea Q12 XX Last administered on 08/19/18 09:01; Admin Dose 1 EA; Start 08/06/18 at 21:00 Multivitamins (Multivitamin) 30 ml DAILY NGT Last administered on 08/20/18 08:54; Admin Dose 30 ML; Start 08/09/18 at 09:00 Zinc Sulfate (Zinc Sulfate) 220 mg DAILY NGT Last administered on 08/20/18 08:54; Admin Dose 220 MG; Start 08/09/18 at 09:00 Folic Acid (Folic Acid) 1 mg DAILY NGT Last administered on 08/20/18 08:54; Admin Dose 1 MG; Start 08/09/18 at 09:00 Ascorbic Acid (Vitamin C) 500 mg DAILY NGT Last administered on 08/20/18 08:54; Admin Dose 500 MG; Start 08/09/18 at 09:00 Albuterol (Ventolin Hfa) 4 puff Q6HWA RESP THERAPY INH Last administered on 08/20/18 07:59; Admin Dose 4 PUFF; Start 08/09/18 at 14:00 Ipratropium [place] (Atrovent Hfa) 4 puff Q6H RESP THERAPY INH Last administered on 08/20/18 07:58; Admin Dose 4 PUFF; Start 08/09/18 at 14:00 IV Flush (NS 10 ml) 10 ml PRN PRN IV IV PROTOCOL; Start 08/11/18 at 16:30 Lansoprazole (Prevacid) 30 mg 0600,1800 PEG Last administered on 08/19/18 18:42; Admin Dose 30 MG; Start 08/11/18 at 18:28 Heparin Sodium (Porcine) (Heparin (1000 Units/ml)) 3,000 unit PRN PRN CATHETER Dialysis Last administered on 08/18/18 17:48; Admin Dose 3,000 UNIT; Start 08/12/18 at 14:30 Ciprofloxacin HCl (Ciprofloxacin HCl Otic) 5 drop BID LEFT EAR Last administered on 08/20/18 08:53; Admin Dose 5 DROP; Start 08/14/18 at 10:00; Stop 08/20/18 at 21:01 Labetalol HCl (Labetalol) 10 mg Q4H PRN IV ELEVATED SYSTOLIC BP > 180 Last administered on 08/16/18at 05:14; Admin Dose 10 MG; Start 08/14/18 at 19:00 Midazolam HCl 50 ml @ 1 mls/hr TITRATE IV Last administered on 08/20/18 00:16; Admin Dose 5 MLS/HR; Start 08/15/18 at 11:00 Hydralazine HCl (Apresoline) 20 mg Q2 PRN IV ELEVATED SYSTOLIC BP Last administered on 08/17/18 18:30; Admin Dose 20 MG; Start 08/16/18 at 08:00 Metronidazole 100 ml @ 100 mls/hr Q8 IVPB Last administered on 08/20/18 06:07; Admin Dose 100 MLS/HR; Start 08/16/18 at 22:00 Carvedilol (Coreg) 12.5 mg Q6H PO Last administered on 08/20/18 06:07; Admin Dose 12.5 MG; Start 08/17/18 at 01:00 Docusate Sodium (Colace Liquid Cup) 100 mg BID GTB Last administered on 08/20/18 08:53; Admin Dose 100 MG; Start 08/18/18 at 09:00 Clopidogrel Bisulfate (plaVIX) 75 mg DAILY NGT Last administered on 08/19/18 08:44; Admin Dose 75 MG; Start 08/18/18 at 13:30 Cefazolin Sodium 50 ml @ 100 mls/hr Q24H IVPB Last administered on 08/19/18 14:51; Admin Dose 100 MLS/HR; Start 08/19/18 at 14:00 Levofloxacin/ Dextrose 50 ml @ 50 mls/hr Q48H IVPB Last administered on 08/19/18 12:39; Admin Dose 50 MLS/HR; Start 08/19/18 at 12:30 Rifaximin (Xifaxan) 200 mg TID PO Last administered on 08/20/18 08:54; Admin Dose 200 MG; Start 08/19/18 at 13:00 Assessment/Plan Hospital Course (Demo Recall) IMP: 1. Ventricular Fibrillation Arrest--s/p ROSC 2/2 STEMI s/p PCI status post hypothermia protocol. Multivessel coronary artery disease status post stent placement x3 2. STEMI, Status post stent x3 placement. 3. CVA multiple infarcts noted. 4. Hypoxemic respiratory failure/ARDS slowly improving. 5. HUSEYIN--likely ATN continues hemodialysis 6. Ischemic hepatopathy--2/2 arrest 7. Metabolic acidosis--2/2 arrest 8. Anemia 9 Thrombocytopenia 10. Encephalopathy likely toxic metabolic RECS: 1. Continue mechanical ventilation, CPAP trial if more alert this afternoon 2. Decrease FiO2 as tolerated low tidal volume strategy if needed 3. Continue tube feeding 4. May require tracheostomy and PEG tube placement if no significant improvem ent neurologically 5. Continue Abx 6. Pulmonary toilet 7. Hemodialysis per nephrology Critical care time 40 minutes. CHINO ANDERSON MD, [facility] Aug 20, 2018 09:58
--- NOTE | 2018-08-20 13:47 | CONS ---
Assessment/Plan Assessment/Plan Hospital Course (Demo Recall) No acute changes overnight patient is more awake comfortable on vent sedated with fentanyl, no fevers WBC 13.4 platelets 248, neutrophils 76.2 Antimicrobials: Ancef, Levaquin, Flagyl Chest x-ray this morning revealed stable central pulmonary vascular congestion. Stable perihilar infiltrates in the right upper lobe and throughout the left lung. Please see full report in the chart Microbiology: Urine culture on admission grew E. coli and Proteus, blood cultures growing oxacillin sensitive staph aureus endotracheal aspirate also growing oxacillin sensitive staph aureus ear drainage preliminary growing staph aureus, repeat blood cultures 2 days ago negative Indwelling: Endotracheal tube, orogastric tube, right femoral Devan, right upper extremity PICC line Physical examination: Obese well-developed middle-aged woman who is intubated in no distress. Head atraumatic normocephalic neck is supple chest rise symmetrical breath sounds diminished bases. Heart: S1-S2. Abdomen distended. Bowel sounds hypoactive. Extremities cyanotic Assessment: 1. Severe sepsis 2. Oxacillin sensitive staph aureus bacteremia 2 to #3 3. Oxacillin sensitive staph aureus pneumonia 4. Polymicrobial UTI 5. ST elevation MS, status post stent 6. Status post V. fib arrest 7. Acute renal failure, started on hemodialysis 8. 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 Anemia and thrombocytopenia 10. Acute sinusitis and bilateral mastoiditis 11. Morbid obesity 12. Diarrhea, r/o C dif Plan: Clinically improving, more awake, scheduled for PEG today, continue antibiotics, f/u neurology/pulmonary recommendations. Consultation Date/Type/Reason Admit Date/Time Aug 04, 2018 at 23:10 Initial Consult Date 08/12/18 Type of Consult id Requesting Provider: HARPAL AGGARWAL MD Date/Time of Note DATE: 08/20/18 TIME: 13:45 Exam/Review of Systems Exam Vitals Vital Signs Date Temp Pulse Resp B/P (MAP) Pulse Ox O2 O2 Flow FiO2 Time Delivery Rate 08/20/18 106 12:00 08/20/18 20 135/87 100 Mechanical 11:00 (103) Ventilator 08/20/18 99.1 08:00 08/20/18 40 08:00 Intake and Output 08/19/18 08/19/18 08/20/18 1515:00 23:00 07:00 IntakeIntake Total 549 ml 1026 ml 366 ml OutputOutput Total 30 ml 90 ml BalanceBalance 549 ml 996 ml 276 ml Results Result Diagram: 08/20/18 0500 08/20/18 0500 Results 24hrs Laboratory Tests Test 08/19/18 19:02 08/19/18 21:10 08/20/18 00:47 08/20/18 05:00 Hemoglobin 7.3 L 8.9 #L 8.7 L Hematocrit 23.9 L 28.8 #L 28.2 L Bedside Glucose 122 White Blood Count 13.4 #H Red Blood Count 3.14 L Mean Corpuscular 89.8 Volume Mean Corpuscular 27.7 L Hemoglobin Mean Corpuscular 30.9 L Hemoglobin Concent Red Cell 15.6 H Distribution Width Platelet Count 248 Mean Platelet 14.1 H Volume Immature 1.200 H Granulocytes % Neutrophils % 76.2 Lymphocytes % 12.2 L Monocytes % 6.9 Eosinophils % 2.8 Basophils % 0.7 Nucleated Red 0.0 Blood Cells % Immature 0.160 H Granulocytes # Neutrophils # 10.2 H Lymphocytes # 1.6 Monocytes # 0.9 Eosinophils # 0.4 Basophils # 0.1 Nucleated Red 0.0 Blood Cells # Prothrombin Time 15.3 H Prothrombin Time 1.2 Ratio INR International 1.20 Normalized Ratio Activated 37.[address] Time Sodium Level 138 Potassium Level 5.3 H Chloride Level 104 Carbon Dioxide 24 Level Anion Gap 10 Blood Urea 83 #H Nitrogen Creatinine 4.34 #H Est Glomerular 11 L Filtrat Rate mL/min Glucose Level 85 # Calcium Level 8.9 Phosphorus Level 6.0 H Magnesium Level 2.2 Test 08/20/18 05:29 08/20/18 09:02 Lab Scanned BLOOD TRANSFUSION Report Bedside Glucose 107 Medications Medication Current Medications Norepinephrine 250 ml @ 1.875 mls/ hr TITRATE IV Last administered on 08/10/18at 00:41; Admin Dose 5.625 MLS/HR; Start 08/04/18 at 23:15 Morphine Sulfate (morphine) 1 mg Q1H PRN IV PAIN Last administered on 08/17/18at 18:30; Admin Dose 1 MG; Start 08/04/18 at 23:30 Atorvastatin Calcium (Lipitor) 80 mg DAILY@21 PO Last administered on 08/19/18at 20:57; Admin Dose 80 MG; Start 08/05/18 at 21:00 Nitroglycerin/ Dextrose 250 ml @ 1.5 mls/hr TITRATE IV Last administered on 08/05/18 14:22; Admin Dose 72 MLS/HR; Start 08/05/18 at 01:00 Miscellaneous Information 1 ea NOTE XX ; Start 08/05/18 at 09:00 Acetaminophen (Tylenol Supp) 650 mg Q4H PRN [place] TEMP > 37C Last administered on 08/09/18 04:37; Admin Dose 650 MG; Start 08/05/18 at 11:00 Acetaminophen (Tylenol Liquid) 650 mg Q4H PRN PO TEMP > 37C Last administered on 08/18/18 23:17; Admin Dose 650 MG; Start 08/05/18 at 11:00 Meperidine HCl (Demerol) 25 mg Q4H PRN IV POST OPERATIVE SHIVERING Last administered on 08/05/18 16:31; Admin Dose 25 MG; Start 08/05/18 at 11:00 Eye Lubricant (Akwa Oint) 1 applic Q6 BOTH EYES Last administered on 08/20/18 1 2:58; Admin Dose 1 APPLIC; Start 08/05/18 at 12:00 Eye Lubricant (Artificial Tears Oph) 2 drop Q6 BOTH EYES Last administered on 08/20/18 12:58; Admin Dose 2 DROP; Start 08/05/18 at 12:00 Insulin Human Regular 100 unit/ Sodium Chloride 100 ml @ 0 mls/hr PER PROTOCOL IV ; Start 08/05/18 at 12:00 Miscellaneous Information (* Miscellaneous Pharmacy Order) Treatment of Hypoglycemia: 1.BG 51... Per protocol XX ; Start 08/05/18 at 12:00 Dextrose (D50w Syringe) 25 ml Q15M PRN IV .DECREASED GLUCOSE; Start 08/05/18 at 12:00 Dextrose (D50w Syringe) 50 ml Q15M PRN IV .DECREASED GLUCOSE; Start 08/05/18 at 12:00 Fentanyl 100 ml @ 2.5 mls/hr TITRATE IV Last administered on 08/20/18 00:18; Admin Dose 7 MLS/HR; Start 08/05/18 at 12:00 Meperidine HCl (Demerol) 12.5 mg Q2H PRN IV POST OPERATIVE SHIVERING; Start 08/05/18 at 17:00 Aspirin (Aspirin) 81 mg DAILY NGT Last administered on 08/20/18 08:54; Admin Dose 81 MG; Start 08/06/18 at 09:00 Multivitamins (Multivitamin) 30 ml DAILY NGT Last administered on 08/20/18 08:54; Admin Dose 30 ML; Start 08/09/18 at 09:00 Zinc Sulfate (Zinc Sulfate) 220 mg DAILY NGT Last administered on 08/20/18 08:54; Admin Dose 220 MG; Start 08/09/18 at 09:00 Folic Acid (Folic Acid) 1 mg DAILY NGT Last administered on 08/20/18 08:54; Admin Dose 1 MG; Start 08/09/18 at 09:00 Ascorbic Acid (Vitamin C) 500 mg DAILY NGT Last administered on 08/20/18 08:54; Admin Dose 500 MG; Start 08/09/18 at 09:00 Albuterol (Ventolin Hfa) 4 puff Q6HWA RESP THERAPY INH Last administered on 08/20/18 07:59; Admin Dose 4 PUFF; Start 08/09/18 at 14:00 Ipratropium [place] (Atrovent Hfa) 4 puff Q6H RESP THERAPY INH Last administered on 08/20/18 07:58; Admin Dose 4 PUFF; Start 08/09/18 at 14:00 IV Flush (NS 10 ml) 10 ml PRN PRN IV IV PROTOCOL; Start 08/11/18 at 16:30 Lansoprazole (Prevacid) 30 mg 0600,1800 PEG Last administered on 08/19/18 18:42; Admin Dose 30 MG; Start 08/11/18 at 18:28 Heparin Sodium (Porcine) (Heparin (1000 Units/ml)) 3,000 unit PRN PRN CATHETER Dialysis Last administered on 08/18/18 17:48; Admin Dose 3,000 UNIT; Start 08/12/18 at 14:30 Ciprofloxacin HCl (Ciprofloxacin HCl Otic) 5 drop BID LEFT EAR Last administered on 08/20/18 08:53; Admin Dose 5 DROP; Start 08/14/18 at 10:00; Stop 08/20/18 at 21:01 Labetalol HCl (Labetalol) 10 mg Q4H PRN IV ELEVATED SYSTOLIC BP > 180 Last administered on 08/16/18 05:14; Admin Dose 10 MG; Start 08/14/18 at 19:00 Midazolam HCl 50 ml @ 1 mls/hr TITRATE IV Last administered on 08/20/18 00:16; Admin Dose 5 MLS/HR; Start 08/15/18 at 11:00 Hydralazine HCl (Apresoline) 20 mg Q2 PRN IV ELEVATED SYSTOLIC BP Last administered on 08/17/18 18:30; Admin Dose 20 MG; Start 08/16/18 at 08:00 Metronidazole 100 ml @ 100 mls/hr Q8 IVPB Last administered on 08/20/18 06:07; Admin Dose 100 MLS/HR; Start 08/16/18 at 22:00 Carvedilol (Coreg) 12.5 mg Q6H PO Last administered on 08/20/18 06:07; Admin Dose 12.5 MG; Start 08/17/18 at 01:00 Docusate Sodium (Colace Liquid Cup) 100 mg BID GTB Last administered on 08:53; Admin Dose 100 MG; Start 08/18/18 at 09:00 Clopidogrel Bisulfate (plaVIX) 75 mg DAILY NGT Last administered on 08/19/18 08:44; Admin Dose 75 MG; Start 08/18/18 at 13:30 Cefazolin Sodium 50 ml @ 100 mls/hr Q24H IVPB Last administered on 08/19/18 14:51; Admin Dose 100 MLS/HR; Start 08/19/18 at 14:00 Levofloxacin/ Dextrose 50 ml @ 50 mls/hr Q48H IVPB Last administered on 08/19/18 12:39; Admin Dose 50 MLS/HR; Start 08/19/18 at 12:30 Rifaximin (Xifaxan) 200 mg TID PO Last administered on 08/20/18 12:58; Admin Dose 200 MG; Start 08/19/18 at 13:00 WIN LUCIANO NP Aug 20, 2018 13:47
--- NOTE | 2018-08-20 15:06 | HP ---
DATE OF ADMISSION: 08/04/2018 HISTORY OF PRESENT ILLNESS: uYliet Nolasco is a 38-year-old female with oropharyngeal bleeding. She is on blood thinners because of her recent coronary artery stent. ENT was consulted to evaluate our practice and saw her a few days ago and there was no bleeding going on at that time. At this point, I do not see any active bleeding, but I do see some fresh blood in the anterior oral cavity, but we were consulted to reevaluate her. PAST MEDICAL HISTORY: Respiratory failure, coronary artery disease. PAST SURGICAL HISTORY: Coronary artery stent. ALLERGIES: No known drug allergies. MEDICATIONS: Reviewed. SOCIAL HISTORY: Negative tobacco, alcohol, drug abuse. FAMILY HISTORY: Negative for any heart, lung, kidney failure, liver disease. REVIEW OF SYSTEMS: A 12-point review of systems noncontributory. PHYSICAL EXAMINATION: Oral cavity, oropharynx shows a tiny laceration of the right anterior tongue, but there is no active bleeding going on there. She is orotracheally intubated, so this occludes a good part of the oral ca vity and I can only open her mouth so much because she is not significantly sedated, so she is provid ing some resistance when I tried to open up her mouth. I am not seeing any other lesions of the late ral tongue and both sides appear to be normal, but there is really not much blood. I tried to do an endoscopy going through both nasal cavities and I saw thick blood-tinged secretions on both sides; ho wever, I do not see any evidence of any area that looks like it would bleed. I can't see further rina n the nasopharynx because of all the secretions. IMPRESSION: 1. Hemoptysis. 2. Epistaxis. 3. Tongue laceration. PLAN: At this point, I down the bleed is due to epistaxis, it is more likely due to a laceration of the tongue. I don't think it is the laceration that I see in the right anterior tongue. I think it is something further back. With that being said, there is a possible plan for tracheostomy. When th at is done, we can try putting in some vaginal gauze packing at that time. While it can be done befo re then it would unlikely help that much because we would not be able to adequately pack because of t he endotracheal tube. We will continue to follow. If there are any concerns, please feel free to re consult at any time. Dictated By: HARPAL MENA MD DM/NTS Conf#: [id number] DID#: [id number] CC: DANIAL TUCKER MD;*EndCC*
--- NOTE | 2018-08-20 15:51 | CONS ---
Consult Date/Type/Reason Admit Date/Time Aug 04, 2018 at 23:10 Initial Consult Date 08/05/18 Type of Consultation: cv Requesting Provider: HARPAL AGGARWAL MD Date/Time of Note DATE: 08/20/18 TIME: 15:50 Subjective Interventional cardiology follow-up progress note/critical care Subjective: Events noted discussed with the staff and physicians. d/w family Patient remains intubated on the vent . she has had some response to commands per RN report No V tachycardia or V fibrillation. BP is stable off of pressors. pt still with oral and nasopharyngeal bleeding noted today pt is HD now events noted s/p PCI 100% occluded LAD 08/04 S/P PCI LCX/ OM Objective: General: Obese female started with intubation on the vent HEENT: NC/AT. pupils are equal. round. NECK: . no stridor. CV: RRR. systolic murmur; no gallop or rubs. PULM: no wheezing + diffuse rhonchi. GI: Obese SOFT, NT, ND, no rebound or guarding Extremity: +B/L LE edema. no clubbing. neuro: Sedated opens her eyes Psych: Calm now rectal: deferred EKG August 06, 2018 was personally within normal sinus rhythm. T wave inversions anterior and inferior leads ECG 08/07: NSR ST T abn c/w ant/lat ischemia CXR 08/14: Nonspecific patchy bilateral pulmonary opacity, mildly improved on the right. No pneumothorax. Endotracheal tube, nasogastric tube, and right-sided PICC line remain in place. Stable mild cardiomegaly. The osseous structures are remarkable for degenerative enthesopathy of the spine. Chest x-ray done August 06 shows:No evidence for active cardiopulmonary disease. CXR 08/19: Diffuse bilateral reticular nodular infiltrates unchanged. Question bronchopneumonia versus failure. ECHO personally reviewed Normal left ventricular cavity size. Normal left ventricular wall thickness. Ejection fraction is visually estimated at 55-65 %. Normal appearance of the mitral valve. Mitral valve is not well visualized. No mitral valve regurgitation is seen. Aortic valve not well visualized. No aortic regurgitation. Normal appearance of the tricuspid valve. Unable to obtain RVSP due to minimal presence of tricuspid regurgitation. No evidence of tricuspid regurgitation. Normal pericardium with no significant pericardial effusion. suboptimal study. Objective Vitals Vital Signs Date Temp Pulse Resp B/P (MAP) Pulse Ox O2 O2 Flow FiO2 Time Delivery Rate 08/20/18 104 20 157/103 100 Mechanical 13:30 (121) Ventilator 08/20/18 50 13:26 08/20/18 99.1 12:00 Intake and Output 08/19/18 08/19/18 08/20/18 1515:00 23:00 07:00 IntakeIntake Total 549 ml 1026 ml 366 ml OutputOutput Total 30 ml 90 ml BalanceBalance 549 ml 996 ml 276 ml Results/Medications Result Diagram: 08/20/18 0500 08/20/18 0500 Results 24 hrs Laboratory Tests Test 08/19/18 19:02 08/19/18 21:10 08/20/18 00:47 08/20/18 05:00 Hemoglobin 7.3 L 8.9 #L 8.7 L Hematocrit 23.9 L 28.8 #L 28.2 L Bedside Glucose 122 White Blood Count 13.4 #H Red Blood Count 3.14 L Mean Corpuscular 89.8 Volume Mean Corpuscular 27.7 L Hemoglobin Mean Corpuscular 30.9 L Hemoglobin Concent Red Cell 15.6 H Distribution Width Platelet Count 248 Mean Platelet 14.1 H Volume Immature 1.200 H Granulocytes % Neutrophils % 76.2 Lymphocytes % 12.2 L Monocytes % 6.9 Eosinophils % 2.8 Basophils % 0.7 Nucleated Red 0.0 Blood Cells % Immature 0.160 H Granulocytes # Neutrophils # 10.2 H Lymphocytes # 1.6 Monocytes # 0.9 Eosinophils # 0.4 Basophils # 0.1 Nucleated Red 0.0 Blood Cells # Prothrombin Time 15.3 H Prothrombin Time 1.2 Ratio INR International 1.20 Normalized Ratio Activated 37.[address] Time Sodium Level 138 Potassium Level 5.3 H Chloride Level 104 Carbon Dioxide 24 Level Anion Gap 10 Blood Urea 83 #H Nitrogen Creatinine 4.34 #H Est Glomerular 11 L Filtrat Rate mL/min Glucose Level 85 # Calcium Level 8.9 Phosphorus Level 6.0 H Magnesium Level 2.2 Test 08/20/18 05:29 08/20/18 09:02 Lab Scanned BLOOD TRANSFUSION Report Bedside Glucose 107 Medications Current Medications Norepinephrine 250 ml @ 1.875 mls/ hr TITRATE IV Last administered on 08/10/18at 00:41; Admin Dose 5.625 MLS/HR; Start 3/16/19 at 23:15 Morphine Sulfate (morphine) 1 mg Q1H PRN IV PAIN Last administered on 08/17/18 18:30; Admin Dose 1 MG; Start 08/04/18 at 23:30 Atorvastatin Calcium (Lipitor) 80 mg DAILY@21 PO Last administered on 08/19/18 20:57; Admin Dose 80 MG; Start 08/05/18 at 21:00 Nitroglycerin/ Dextrose 250 ml @ 1.5 mls/hr TITRATE IV Last administered on 08/05/18at 14:22; Admin Dose 72 MLS/HR; Start 08/05/18 at 01:00 Miscellaneous Information 1 ea NOTE XX ; Start 08/05/18 at 09:00 Acetaminophen (Tylenol Supp) 650 mg Q4H PRN [place] TEMP > 37C Last administered on 08/09/18at 04:37; Admin Dose 650 MG; Start 08/05/18 at 11:00 Acetaminophen (Tylenol Liquid) 650 mg Q4H PRN PO TEMP > 37C Last administered on 08/18/18 23:17; Admin Dose 650 MG; Start 08/05/18 at 11:00 Meperidine HCl (Demerol) 25 mg Q4H PRN IV POST OPERATIVE SHIVERING Last administered on 08/05/18 16:31; Admin Dose 25 MG; Start 08/05/18 at 11:00 Eye Lubricant (Akwa Oint) 1 applic Q6 BOTH EYES Last administered on 08/20/18 12:58; Admin Dose 1 APPLIC; Start 08/05/18 at 12:00 Eye Lubricant (Artificial Tears Oph) 2 drop Q6 BOTH EYES Last administered on 08/20/18at 12:58; Admin Dose 2 DROP; Start 08/05/18 at 12:00 Insulin Human Regular 100 unit/ Sodium Chloride 100 ml @ 0 mls/hr PER PROTOCOL IV ; Start 08/05/18 at 12:00 Miscellaneous Information (* Miscellaneous Pharmacy Order) Treatment of Hypoglycemia: 1.BG 51... Per protocol XX ; Start 08/05/18 at 12:00 Dextrose (D50w Syringe) 25 ml Q15M PRN IV .DECREASED GLUCOSE; Start 08/05/18 at 12:00 Dextrose (D50w Syringe) 50 ml Q15M PRN IV .DECREASED GLUCOSE; Start 08/05/18 at 12:00 Fentanyl 100 ml @ 2.5 mls/hr TITRATE IV Last administered on 08/20/18 00:18; Admin Dose 7 MLS/HR; Start 08/05/18 at 12:00 Meperidine HCl (Demerol) 12.5 mg Q2H PRN IV POST OPERATIVE SHIVERING; Start 08/05/18 at 17:00 Aspirin (Aspirin) 81 mg DAILY NGT Last administered on 08/20/18 08:54; Admin Dose 81 MG; Start 08/06/18 at 09:00 Multivitamins (Multivitamin) 30 ml DAILY NGT Last administered on 08/20/18 08:54; Admin Dose 30 ML; Start 08/09/18 at 09:00 Zinc Sulfate (Zinc Sulfate) 220 mg DAILY NGT Last administered on 08/20/18 08:54; Admin Dose 220 MG; Start 08/09/18 at 09:00 Folic Acid (Folic Acid) 1 mg DAILY NGT Last administered on 08/20/18 08:54; Admin Dose 1 MG; Start 08/09/18 at 09:00 Ascorbic Acid (Vitamin C) 500 mg DAILY NGT Last administered on 08/20/18 08:54; Admin Dose 500 MG; Start 08/09/18 at 09:00 Albuterol (Ventolin Hfa) 4 puff Q6HWA RESP THERAPY INH Last administered on 08/20/18 07:59; Admin Dose 4 PUFF; Start 08/09/18 at 14:00 Ipratropium [place] (Atrovent Hfa) 4 puff Q6H RESP THERAPY INH Last administered on 08/20/18 07:58; Admin Dose 4 PUFF; Start 08/09/18 at 14:00 IV Flush (NS 10 ml) 10 ml PRN PRN IV IV PROTOCOL; Start 08/11/18 at 16:30 Lansoprazole (Prevacid) 30 mg 0600,1800 PEG Last administered on 08/19/18 18:42; Admin Dose 30 MG; Start 08/11/18 at 18:28 Heparin Sodium (Porcine) (Heparin (1000 Units/ml)) 3,000 unit PRN PRN CATHETER Dialysis Last administered on 08/18/18 17:48; Admin Dose 3,000 UNIT; Start 08/12/18 at 14:30 Ciprofloxacin HCl (Ciprofloxacin HCl Otic) 5 drop BID LEFT EAR Last administered on 08/20/18 08:53; Admin Dose 5 DROP; Start 08/14/18 at 10:00; Stop 08/20/18 at 21:01 Labetalol HCl (Labetalol) 10 mg Q4H PRN IV ELEVATED SYSTOLIC BP > 180 Last administered on 08/16/18at 05:14; Admin Dose 10 MG; Start 08/14/18 at 19:00 Midazolam HCl 50 ml @ 1 mls/hr TITRATE IV Last administered on 08/20/18 00:16; Admin Dose 5 MLS/HR; Start 08/15/18 at 11:00 Hydralazine HCl (Apresoline) 20 mg Q2 PRN IV ELEVATED SYSTOLIC BP Last administered on 08/17/18 18:30; Admin Dose 20 MG; Start 08/16/18 at 08:00 Metronidazole 100 ml @ 100 mls/hr Q8 IVPB Last administered on 08/20/18 06:07; Admin Dose 100 MLS/HR; Start 08/16/18 at 22:00 Carvedilol (Coreg) 12.5 mg Q6H PO Last administered on 08/20/18 06:07; Admin Dose 12.5 MG; Start 08/17/18 at 01:00 Docusate Sodium (Colace Liquid Cup) 100 mg BID GTB Last administered on 08/20/18 08:53; Admin Dose 100 MG; Start 08/18/18 at 09:00 Clopidogrel Bisulfate (plaVIX) 75 mg DAILY NGT Last administered on 08/19/18 08:44; Admin Dose 75 MG; Start 08/18/18 at 13:30 Cefazolin Sodium 50 ml @ 100 mls/hr Q24H IVPB Last administered on 08/19/18 14:51; Admin Dose 100 MLS/HR; Start 08/19/18 at 14:00 Levofloxacin/ Dextrose 50 ml @ 50 mls/hr Q48H IVPB Last administered on 9at 12:39; Admin Dose 50 MLS/HR; Start 08/19/18 at 12:30 Rifaximin (Xifaxan) 200 mg TID PO Last administered on 4/1/19at 12:58; Admin Dose 200 MG; Start 08/19/18 at 13:00 Assessment/Plan Hospital Course (Demo Recall) 1. s/p V. fib cardiac arrest 2. Acute myocardial infarction 3. Status post emergent PCI of the 100% occluded LAD as well as PTCA of the diagonal and PCI LCX/ OM 4. Diabetes 5. Respiratory failure status post intubation on the vent 6. Hypertension 7. Renal failure : acute on chronic 8. Likely history of congestive heart failure 9. Dyslipidemia 10. Encephalopathy: Clear anoxic brain injury on hypothermia protocol 11. Morbid obesity 12. Anemia 13. elevated LFT 14. fever, bacteremia pneumonia 15. Malnutrition, anasarca . 16. septic shock and bacteremia 17. oropharyngeal bleedig 18. CVA Recommendations: Continue with aspirin Brilinta was changed to plavix due to recurrent oropharyngeal bleeding as well as patient currently with renal failure on dialysis. BUT will be at high risk of stent thrombosis if stop the plavix Antibiotic management as per ID recommendation HD as per renal Vent support respiratory care as per internal medicine and pulmonary consultants. cont Coreg as tolerated/needed Monitor renal function. f/u renal consult rec regarding hemodialysis PPI . Transfusion prn given her severe anemia and [place]/ VF ENT to re-evaluate for oropharyngeal bleeding More than 31 minutes of critical care time was for management treatment is critically patient excluding any procedures Thank you for his referral. We will continue to follow along with you LOIS JOHNSON MD [facility] LOIS JOHNSON MD Aug 20, 2018 15:51
--- NOTE | 2018-08-20 16:01 | CONS ---
Assessment/Plan Assessment/Plan Hospital Course 38 yo F w/ reported Hx of HTN and DM2 who is admitted to the [facility] ICU s/p a vfib cardiac arrest. She is now s/p cardiac catheterization w/ 2 coronary stents. now s/p targeted temperature therapy. Neurology is consulted given persistent encephalopathy...which is likely multifactorial -- toxic-metabolic, medications, hypoxic-ischemic MRI brain is notable for multiple bihemispheric infarcts... likely of cardioembolic origin in the context of her recent arrest. EEG is without epileptiform activity CUS is unrevealing. Ammonia, RPR level wnl. ESR >130 Echo on 08/05 in unrevealing. Cardiolipin Abs neg Hypercoag panel o/w neg P: Defer CTA for now given poor renal function Continue ASA/Lipitor for secondary stroke prevention Limit sedation as able Continued medical management per primary Will follow clinically Consultation Date/Type/Reason Admit Date/Time Aug 04, 2018 at 23:10 Type of Consult Neurology Reason for Consultation stroke, coma Requesting Provider: HARPAL AGGARWAL MD Date/Time of Note DATE: 08/20/18 TIME: 16:01 24 HR Interval Summary Free Text/Dictation Continues critical care. Plan for PEG today and possible CPAP trial tomorrow. Subjective hx not possible: pt non-verbal, pt critical Exam Vital Signs Vitals Vital Signs Date Temp Pulse Resp B/P (MAP) Pulse Ox O2 O2 Flow FiO2 Time Delivery Rate 08/20/18 104 20 157/103 100 Mechanical 13:30 (121) Ventilator 08/20/18 50 13:26 08/20/18 99.1 12:00 Intake and Output 08/19/18 08/19/18 08/20/18 1515:00 23:00 07:00 IntakeIntake Total 549 ml 1026 ml 366 ml OutputOutput Total 30 ml 90 ml BalanceBalance 549 ml 996 ml 276 ml Exam PE: Gen Appearance: No Apparent Distress HEENT: Intubated Cardiovascular: Regular rate Abdomen: Soft Extremities: Dry NE: The patient was sedated and nonverbal. Able to open her eyes to loud stimuli. Able to track; unable to follow any commands. Cranial nerve examination was limited by mental status. Pupils were equal and reactive to light. There was no afferent pupillary defect. Funduscopic examination was limited. Face was grossly symmetric, w/ present corneal and cough reflexes. Tone was normal. Muscle bulk was normal. I did not see fasciculations. The patient withdrew to noxious stimulation in her BLE. Coordination and gait testing was limited by mental status. Arm and leg reflexes were within normal limits and symmetric. Alvarez's sign was absent. Plantar responses were flexor. KAYCEE ESCOBEDO NP Aug 20, 2018 16:01 RANDY GARCIA Aug 20, 2018 16:07
[2018-08-20] MEDS: HEPARIN 1000 UNITS/ML 10 ML INJ CATHETER PRN (16:08)
[2018-08-20] MEDS: CEFAZOLIN 1 GM/50 ML (PMX) 50 ML IVPB SCH (16:40)
[2018-08-20] MEDS: LABETALOL HCL 20MG INJ IV PRN (16:54)
--- NOTE | 2018-08-20 16:54 | PREAC ---
Date/Time of Note Date/Time of Note DATE: 08/20/18 TIME: 16:53 Anesthesia Eval and Record Evaluation Time Pre-Procedure Interview DATE: 08/20/18 TIME: 16:53 Age 38 Sex female NPO: 8 hrs Preoperative diagnosis feeding tube access Planned procedure EGD /g tube placement Past Medical History Past Medical History: Includes Cardio: HTN Endo: Diabetes GI: Morbid obesity Surgery & Anesthesia Issues No known issue Meds Anticoagulation: No Beta Horacio within 24 hr: No Reason Beta Horacio not given: Pt. not on B-Horacio Current Medications Norepinephrine 250 ml @ 1.875 mls/ hr TITRATE IV Last administered on 08/10/18 00:41; Admin Dose 5.625 MLS/HR; Start 08/04/18 at 23:15 Morphine Sulfate (morphine) 1 mg Q1H PRN IV PAIN Last administered on 08/17/18 18:30; Admin Dose 1 MG; Start 08/04/18 at 23:30 Atorvastatin Calcium (Lipitor) 80 mg DAILY@21 PO Last administered on 08/19/18at 20:57; Admin Dose 80 MG; Start 08/05/18 at 21:00 Nitroglycerin/ Dextrose 250 ml @ 1.5 mls/hr TITRATE IV Last administered on 08/05/18at 14:22; Admin Dose 72 MLS/HR; Start 08/05/18 at 01:00 Miscellaneous Information 1 ea NOTE XX ; Start 08/05/18 at 09:00 Acetaminophen (Tylenol Supp) 650 mg Q4H PRN [place] TEMP > 37C Last administered on 08/09/18at 04:37; Admin Dose 650 MG; Start 08/05/18 at 11:00 Acetaminophen (Tylenol Liquid) 650 mg Q4H PRN PO TEMP > 37C Last administered on 08/18/18 23:17; Admin Dose 650 MG; Start 08/05/18 at 11:00 Meperidine HCl (Demerol) 25 mg Q4H PRN IV POST OPERATIVE SHIVERING Last administered on 08/05/18at 16:31; Admin Dose 25 MG; Start 08/05/18 at 11:00 Eye Lubricant (Akwa Oint) 1 applic Q6 BOTH EYES Last administered on 08/20/18at 12:58; Admin Dose 1 APPLIC; Start 08/05/18 at 12:00 Eye Lubricant (Artificial Tears Oph) 2 drop Q6 BOTH EYES Last administered on 08/20/18 12:58; Admin Dose 2 DROP; Start 08/05/18 at 12:00 Insulin Human Regular 100 unit/ Sodium Chloride 100 ml @ 0 mls/hr PER PROTOCOL IV ; Start 08/05/18 at 12:00 Miscellaneous Information (* Miscellaneous Pharmacy Order) Treatment of Hypoglycemia: 1.BG 51... Per protocol XX ; Start 08/05/18 at 12:00 Dextrose (D50w Syringe) 25 ml Q15M PRN IV .DECREASED GLUCOSE; Start 08/05/18 at 12:00 Dextrose (D50w Syringe) 50 ml Q15M PRN IV .DECREASED GLUCOSE; Start 08/05/18 at 12:00 Fentanyl 100 ml @ 2.5 mls/hr TITRATE IV Last administered on 08/20/18 00:18; Admin Dose 7 MLS/HR; Start 08/05/18 at 12:00 Meperidine HCl (Demerol) 12.5 mg Q2H PRN IV POST OPERATIVE SHIVERING; Start 08/05/18 at 17:00 Aspirin (Aspirin) 81 mg DAILY NGT Last administered on 08/20/18 08:54; Admin Dose 81 MG; Start 08/06/18 at 09:00 Multivitamins (Multivitamin) 30 ml DAILY NGT Last administered on 08/20/18 08:54; Admin Dose 30 ML; Start 08/09/18 at 09:00 Zinc Sulfate (Zinc Sulfate) 220 mg DAILY NGT Last administered on 08/20/18 08:54; Admin Dose 220 MG; Start 08/09/18 at 09:00 Folic Acid (Folic Acid) 1 mg DAILY NGT Last administered on 08/20/18 08:54; Admin Dose 1 MG; Start 08/09/18 at 09:00 Ascorbic Acid (Vitamin C) 500 mg DAILY NGT Last administered on 08/20/18 08:54; Admin Dose 500 MG; Start 08/09/18 at 09:00 Albuterol (Ventolin Hfa) 4 puff Q6HWA RESP THERAPY INH Last administered on 08/20/18 07:59; Admin Dose 4 PUFF; Start 08/09/18 at 14:00 Ipratropium [place] (Atrovent Hfa) 4 puff Q6H RESP THERAPY INH Last administered on 08/20/18 07:58; Admin Dose 4 PUFF; Start 08/09/18 at 14:00 IV Flush (NS 10 ml) 10 ml PRN PRN IV IV PROTOCOL; Start 08/11/18 at 16:30 Lansoprazole (Prevacid) 30 mg 0600,1800 PEG Last administered on 08/19/18at 18:42; Admin Dose 30 MG; Start 08/11/18 at 18:28 Heparin Sodium (Porcine) (Heparin (1000 Units/ml)) 3,000 unit PRN PRN CATHETER Dialysis Last administered on 08/20/18 16:08; Admin Dose 3,000 UNIT; Start 08/12/18 at 14:30 Ciprofloxacin HCl (Ciprofloxacin HCl Otic) 5 drop BID LEFT EAR Last administered on 08/20/18 08:53; Admin Dose 5 DROP; Start 08/14/18 at 10:00; Stop 08/20/18 at 21:01 Labetalol HCl (Labetalol) 10 mg Q4H PRN IV ELEVATED SYSTOLIC BP > 180 Last administered on 08/16/18at 05:14; Admin Dose 10 MG; Start 08/14/18 at 19:00 Midazolam HCl 50 ml @ 1 mls/hr TITRATE IV Last administered on 08/20/18 00:16; Admin Dose 5 MLS/HR; Start 08/15/18 at 11:00 Hydralazine HCl (Apresoline) 20 mg Q2 PRN IV ELEVATED SYSTOLIC BP Last administered on 08/17/18 18:30; Admin Dose 20 MG; Start 08/16/18 at 08:00 Metronidazole 100 ml @ 100 mls/hr Q8 IVPB Last administered on 08/20/18 06:07; Admin Dose 100 MLS/HR; Start 08/16/18 at 22:00 Carvedilol (Coreg) 12.5 mg Q6H PO Last administered on 08/20/18 06:07; Admin Dose 12.5 MG; Start 08/17/18 at 01:00 Docusate Sodium (Colace Liquid Cup) 100 mg BID GTB Last administered on 08/20/18 08:53; Admin Dose 100 MG; Start 08/18/18 at 09:00 Clopidogrel Bisulfate (plaVIX) 75 mg DAILY NGT Last administered on 08/19/18at 08:44; Admin Dose 75 MG; Start 08/18/18 at 13:30 Cefazolin Sodium 50 ml @ 100 mls/hr Q24H IVPB Last administered on 08/20/18at 16:40; Admin Dose 100 MLS/HR; Start 08/19/18 at 14:00 Levofloxacin/ Dextrose 50 ml @ 50 mls/hr Q48H IVPB Last administered on 08/19/18at 12:39; Admin Dose 50 MLS/HR; Start 08/19/18 at 12:30 Rifaximin (Xifaxan) 200 mg TID PO Last administered on 08/20/18at 12:58; Admin Dose 200 MG; Start 08/19/18 at 13:00 Meds reviewed: Yes Allergies Coded Allergies: Unknown: Unable to obtain (Unverified , 08/04/18) Allergies Reviewed: Yes Labs/Studies Labs Reviewed: Reviewed by anesthesiologist Result Diagram: 08/20/18 0500 08/20/18 0500 Laboratory Tests 08/20/18 05:00 test: Negative Studies: ECG (ST), CXR, 2D Echo (EF 55*656%) Pre-procedure Exam Last vitals Vital Signs Date Temp Pulse Resp B/P (MAP) Pulse Ox O2 O2 Flow FiO2 Time Delivery Rate 08/20/18 20 168/110 98 Mechanical 16:15 (129) Ventilator 08/20/18 113 16:00 08/20/18 99.1 16:00 08/20/18 50 13:26 Airway: Adequate mouth opening Mallampati: Mallampati II Teeth: Normal Lung: Normal Heart: Normal ASA Physical Status ASA physical status: 3 Emergency: None Planned Anesthetic General/MAC: ETT Pre-operative Attestations Prior to commencing anesthesia and surgery, the patient was re-evaluated, there was verification of: *The patient's identity *The results of appropriate recent lab work and preoperative vital signs *The above evaluation not changing prior to induction *Anesthetic plan, risk benefits, alternative and complications discussed with patient/family; questions answered; patient/family understands, accepts and wishes to proceed. RAYNA NICHOLE Aug 20, 2018 16:54
--- NOTE | 2018-08-20 17:36 | QN ---
Documentation Comment Schedule EGD plus PEG is being postponed as patient has not completed dialysis anesthesiologist is required in the operating room JEWELL MARCELO MD Aug 20, 2018 17:36
[2018-08-20] MEDS: ATORVASTATIN 80 MG TAB PO SCH (20:50)
[2018-08-20] MEDS: ACETAMINOPHEN 650MG/20.3ML CUP PO PRN (20:56)
[2018-08-21] VITALS (35 sets, daily range): BP systolic 117–155; BP diastolic 75–98; PULSE 108–119; RESP 20–39
[2018-08-21] MEDS: ARTIFICIAL TEARS 15 ML OPH BOTH EYES SCH ×4 (00:15→17:29)
[2018-08-21] MEDS: OCULAR LUBRICANT 3.5 GM OPH OINT BOTH EYES SCH ×4 (00:15→17:29)
[2018-08-21] MEDS: IPRATROPIUM (HFA) 12.9 GM INHALER INH SCH ×4 (01:20→19:42)
[2018-08-21] MEDS: LANSOPRAZOLE 30 MG CAP PEG SCH ×2 (04:58→17:28)
[2018-08-21] MEDS: metroNIDAZOLE 500 MG/NS (PMX) 100 ML IVPB SCH ×3 (05:42→21:41)
--- NOTE | 2018-08-21 08:40 | PN ---
DATE: 08/21/2018 SUBJECTIVE: The patient remains critically ill on for full ventilatory support. The patient had hem odialysis yesterday, tolerated well. The patient continues to be anuric. No other events noted. Me ntal status is slowly improving. OBJECTIVE: VITAL SIGNS: Blood pressure is 149/96, respirations 30, pulse 114, temperature 99.4. HEENT: Head is normocephalic. NECK: Supple. HEART: Regular rate. LUNGS: Show diminished breath sounds at the base. ABDOMEN: Soft, nontender to palpation without rebound or guarding. EXTREMITIES: Negative for clubbing, cyanosis. Trace edema. DERMATOLOGIC: No rashes. MUSCULOSKELETAL: No joint effusion. NEUROLOGIC: No change in exam. MEDICATIONS: Reviewed. LABORATORY DATA: Reviewed. IMAGING STUDIES: Reviewed. Cultures have been reviewed. Chest x-ray was reviewed. ASSESSMENT AND PLAN: 1. Anuric acute kidney injury with previously normal baseline creatinine. Etiology of acute kidney injury is secondary to acute tubular necrosis due to shock, contrast-associated nephropathy, sepsis. The patient remains dialysis dependent. We will have hemodialysis tomorrow. 2. Volume overload. Continue ultrafiltration with hemodialysis. Minimize IV fluids. 3. Anemia. Continue to monitor hemoglobin and hematocrit levels. We will give Epogen as needed. 4. Mineral bone disorder, monitor calcium and phosphorus levels. 5. Ventilator-dependent respiratory failure. Vent settings and ABG was reviewed. Continue to monit or. 6. Cardiac arrest, ST elevated myocardial infarction. The patient is status post cardiac catheteriz ation with multiple stent placements. Continue medical management. Follow up with cardiology. 7. Sepsis status post shock. The patient is currently on antibiotic regimen, continue. 8. Acute encephalopathy, etiology is toxic metabolic, possible anoxic injury and acute cerebrovascul ar accident. The patient's MRI was reviewed. Continue medical management and follow up with neurolo gy. 9. Gastrointestinal and deep vein thrombosis prophylaxis. Dictated By: BHUMI REDDY DO NR/NTS Conf#: [id number] DID#: [id number] CC: LAUREN GREWAL MD; THOMAS RILEY MD; DANIAL TUCKER MD;*EndCC*
--- NOTE | 2018-08-21 08:51 | PN ---
Date/Time of Note Date/Time of Note DATE: 08/21/18 TIME: 08:50 Assessment/Plan VTE Prophylaxis Risk score (from Nsg)>0 risk: 8 SCD applied (from Nsg): Yes Pharmacological prophylaxis: NA/contraindicated Pharm contraindication: bleeding Lines/Catheters IV Catheter Type (from Nrsg): PICC Line Central line still needed: Yes Urinary Cath still in place: Yes Reason Cath still needed: terminal illness/intractable pain Assessment/Plan Assessment/Plan 1. Acute hypoxic respiratory failure - not tolerating CPAP trial this am and will consult CT surgery for Trach placement - Pulm on board for vent management. appreciate consultation 2. Acute toxic/metabolic encephalopathy - patient opening eyes but not following commands - Neurology on board and appreciate recommendations. Imaging of head noted with bilateral CVA and most likely component of anoxic encephalopathy due to cardiac arrest - Continue monitoring for improvement in mentation 3. Bilateral CVA - Found on MRI, likely thromboembolic secondary to cardiopulmonary arrest per neurology - Neuro input appreciated and on anticoagulation 4. Anemia, blood loss and renal disease - ENT consultation appreciated and bleeding could be from tongue laceration - Unable to discontinue anticoagulation and will monitor H/H and further episodes of bleeding - Hgb remains stable and no need for transfusion at this time 5. Bilateral Pneumonia - CXR noted - Pulm on board and appreciate recommendations. Will continue current management 6. Septic shock secondary to PNA and bacteremia - WBC trending down - Blood cultures and sputum culture results noted. - ID on board 7. Left auditory canal bleeding- resolved - on Cipro ear drops 8. Sinus infection - Continue IV antibiotics and eardrops - ID recommendations appreciated 9. CAD s/p PCI x2 - Cardiology on board and appreciate recommendations. Stressed importance of continuing DAPT given recent stent placements and high risk of restenosis - s/p emergent Cath 08/05 with successful PTCA and stenting of proximal and mid LAD, PTCA of the large first diagonal and thrombectomy of the LAD - Repeat PCI on 08/07 performed with stenting to LCx - plans for stenting of RCA prior to discharge if possible 10. Renal failure on HD - Nephrology on board and appreciate recommendations. Continue HD - secondary to septic shock, ATN vs prerenal vs contrast induced nephropathy - will avoid nephrotoxic agents 11. Diabetes - A1c noted and no need to continue accuchecks 12. V-fib cardiac arrest secondary to STEMI - Completed hypothermia protocol - unknown how long patient was down for in the field 13. Disposition - Continue close monitoring in ICU - PEG to be placed today and Trach tomorrow. CM on board for LTAC placement >30 minutes of critical care time spent with patient. Result Diagram: 08/21/18 0430 08/21/18 0430 Results 24hrs Laboratory Tests Test 08/20/18 09:02 08/21/18 04:30 Bedside Glucose 107 White Blood Count 12.4 H Red Blood Count 3.25 L Hemoglobin 9.1 L Hematocrit 28.7 L Mean Corpuscular Volume 88.3 Mean Corpuscular Hemoglobin 28.0 L Mean Corpuscular Hemoglobin Concent 31.7 L Red Cell Distribution Width 15.8 H Platelet Count 346 # Mean Platelet Volume 14.0 H Immature Granulocytes % 1.400 H Neutrophils % 75.7 Lymphocytes % 12.5 L Monocytes % 7.1 Eosinophils % 2.2 Basophils % 1.1 Nucleated Red Blood Cells % 0.0 Immature Granulocytes # 0.170 H Neutrophils # 9.4 H Lymphocytes # 1.6 Monocytes # 0.9 Eosinophils # 0.3 Basophils # 0.1 Nucleated Red Blood Cells # 0.0 Sodium Level 142 Potassium Level 4.4 Chloride Level 103 Carbon Dioxide Level 27 Anion Gap 12 Blood Urea Nitrogen 69 H Creatinine 3.92 H Est Glomerular Filtrat Rate mL/min 13 L Glucose Level 86 Calcium Level 9.0 Phosphorus Level 6.2 H Magnesium Level 2.1 Subjective 24 Hr Interval Summary Free Text/Dictation Patient opening eyes but not following commands. CPAP trial this am but patient tachypneic and tachy. Appears to be in pain. No acute overnight events. Exam/Review of Systems Exam Vitals Vital Signs Date Temp Pulse Resp B/P (MAP) Pulse Ox O2 O2 Flow FiO2 Time Delivery Rate 08/21/18 114 30 149/96 100 06:00 (113) 08/21/18 22 05:20 08/21/18 Mechanical 05:00 Ventilator 08/21/18 99.4 04:00 Intake and Output 08/20/18 08/20/18 08/21/18 1515:00 23:00 07:00 IntakeIntake Total 163.5 ml 257.5 ml 100 ml OutputOutput Total 255 ml 3095 ml 135 ml BalanceBalance -91.5 ml -2837.5 ml -35 ml Exam General: Patient is laying in bed intubated. opens eyes but not following commands. distress due to discomfort Eyes: EOMI, pupils reactive to light Neck: Supple, nontender, midline Respiratory: Coarse to auscultation bilaterally. no wheezing appreciated Cardiovascular: regular rhythm, tachycardia, no obvious murmurs Gastrointestinal: soft, non-tender to palpation, bowel sounds heard. Skin: No new skin lesions Results Results 24hrs Laboratory Tests Test 08/20/18 09:02 08/21/18 04:30 Bedside Glucose 107 White Blood Count 12.4 H Red Blood Count 3.25 L Hemoglobin 9.1 L Hematocrit 28.7 L Mean Corpuscular Volume 88.3 Mean Corpuscular Hemoglobin 28.0 L Mean Corpuscular Hemoglobin Concent 31.7 L Red Cell Distribution Width 15.8 H Platelet Count 346 # Mean Platelet Volume 14.0 H Immature Granulocytes % 1.400 H Neutrophils % 75.7 Lymphocytes % 12.5 L Monocytes % 7.1 Eosinophils % 2.2 Basophils % 1.1 Nucleated Red Blood Cells % 0.0 Immature Granulocytes # 0.170 H Neutrophils # 9.4 H Lymphocytes # 1.6 Monocytes # 0.9 Eosinophils # 0.3 Basophils # 0.1 Nucleated Red Blood Cells # 0.0 Sodium Level 142 Potassium Level 4.4 Chloride Level 103 Carbon Dioxide Level 27 Anion Gap 12 Blood Urea Nitrogen 69 H Creatinine 3.92 H Est Glomerular Filtrat Rate mL/min 13 L Glucose Level 86 Calcium Level 9.0 Phosphorus Level 6.2 H Magnesium Level 2.1 Medications Medication Current Medications Norepinephrine 250 ml @ 1.875 mls/ hr TITRATE IV Last administered on 08/10/18at 00:41; Admin Dose 5.625 MLS/HR; Start 08/04/18 at 23:15 Morphine Sulfate (morphine) 1 mg Q1H PRN IV PAIN Last administered on 08/17/18at 18:30; Admin Dose 1 MG; Start 08/04/18 at 23:30 Atorvastatin Calcium (Lipitor) 80 mg DAILY@21 PO Last administered on 08/20/18at 20:50; Admin Dose 80 MG; Start 08/05/18 at 21:00 Nitroglycerin/ Dextrose 250 ml @ 1.5 mls/hr TITRATE IV Last administered on 08/05/18at 14:22; Admin Dose 72 MLS/HR; Start 08/05/18 at 01:00 Miscellaneous Information 1 ea NOTE XX ; Start 08/05/18 at 09:00 Acetaminophen (Tylenol Supp) 650 mg Q4H PRN [place] TEMP > 37C Last administered on 08/09/18at 04:37; Admin Dose 650 MG; Start 08/05/18 at 11:00 Acetaminophen (Tylenol Liquid) 650 mg Q4H PRN PO TEMP > 37C Last administered on 08/20/18 20:56; Admin Dose 650 MG; Start 08/05/18 at 11:00 Meperidine HCl (Demerol) 25 mg Q4H PRN IV POST OPERATIVE SHIVERING Last administered on 08/05/18 16:31; Admin Dose 25 MG; Start 08/05/18 at 11:00 Eye Lubricant (Akwa Oint) 1 applic Q6 BOTH EYES Last administered on 08/21/18 05:42; Admin Dose 1 APPLIC; Start 08/05/18 at 12:00 Eye Lubricant (Artificial Tears Oph) 2 drop Q6 BOTH EYES Last administered on 08/21/18 05:42; Admin Dose 2 DROP; Start 08/05/18 at 12:00 Insulin Human Regular 100 unit/ Sodium Chloride 100 ml @ 0 mls/hr PER PROTOCOL IV ; Start 08/05/18 at 12:00 Miscellaneous Information (* Miscellaneous Pharmacy Order) Treatment of Hypoglycemia: 1.BG 51... Per protocol XX ; Start 08/05/18 at 12:00 Dextrose (D50w Syringe) 25 ml Q15M PRN IV .DECREASED GLUCOSE; Start 08/05/18 at 12:00 Dextrose (D50w Syringe) 50 ml Q15M PRN IV .DECREASED GLUCOSE; Start 08/05/18 at 12:00 Fentanyl 100 ml @ 2.5 mls/hr TITRATE IV Last administered on 08/20/18 00:18; Admin Dose 7 MLS/HR; Start 08/05/18 at 12:00 Meperidine HCl (Demerol) 12.5 mg Q2H PRN IV POST OPERATIVE SHIVERING; Start 08/05/18 at 17:00 Aspirin (Aspirin) 81 mg DAILY NGT Last administered on 08/20/18 08:54; Admin Dose 81 MG; Start 08/06/18 at 09:00 Multivitamins (Multivitamin) 30 ml DAILY NGT Last administered on 08/20/18 08 :54; Admin Dose 30 ML; Start 08/09/18 at 09:00 Zinc Sulfate (Zinc Sulfate) 220 mg DAILY NGT Last administered on 08/20/18 08:54; Admin Dose 220 MG; Start 08/09/18 at 09:00 Folic Acid (Folic Acid) 1 mg DAILY NGT Last administered on 08/20/18 08:54; Admin Dose 1 MG; Start 08/09/18 at 09:00 Ascorbic Acid (Vitamin C) 500 mg DAILY NGT Last administered on 08/20/18 08:54; Admin Dose 500 MG; Start 08/09/18 at 09:00 Albuterol (Ventolin Hfa) 4 puff Q6HWA RESP THERAPY INH Last administered on 08/20/18 19:26; Admin Dose 4 PUFF; Start 08/09/18 at 14:00 Ipratropium [place] (Atrovent Hfa) 4 puff Q6H RESP THERAPY INH Last administered on 08/21/18 01:20; Admin Dose 4 PUFF; Start 08/09/18 at 14:00 IV Flush (NS 10 ml) 10 ml PRN PRN IV IV PROTOCOL; Start 08/11/18 at 16:30 Lansoprazole (Prevacid) 30 mg 0600,1800 PEG Last administered on 08/19/18 18:42; Admin Dose 30 MG; Start 08/11/18 at 18:28 Heparin Sodium (Porcine) (Heparin (1000 Units/ml)) 3,000 unit PRN PRN CATHETER Dialysis Last administered on 08/20/18 16:08; Admin Dose 3,000 UNIT; Start 08/12/18 at 14:30 Labetalol HCl (Labetalol) 10 mg Q4H PRN IV ELEVATED SYSTOLIC BP > 180 Last administered on 08/20/18 16:54; Admin Dose 10 MG; Start 08/14/18 at 19:00 Midazolam HCl 50 ml @ 1 mls/hr TITRATE IV Last administered on 08/20/18 00:16; Admin Dose 5 MLS/HR; Start 08/15/18 at 11:00 Hydralazine HCl (Apresoline) 20 mg Q2 PRN IV ELEVATED SYSTOLIC BP Last administered on 08/17/18 18:30; Admin Dose 20 MG; Start 08/16/18 at 08:00 Metronidazole 100 ml @ 100 mls/hr Q8 IVPB Last administered on 08/21/18 05:42; Admin Dose 100 MLS/HR; Start 08/16/18 at 22:00 Carvedilol (Coreg) 12.5 mg Q6H PO Last administered on 08/21/18 08:05; Admin Do se 12.5 MG; Start 08/17/18 at 01:00 Docusate Sodium (Colace Liquid Cup) 100 mg BID GTB Last administered on 08/20/18at 20:50; Admin Dose 100 MG; Start 08/18/18 at 09:00 Clopidogrel Bisulfate (plaVIX) 75 mg DAILY NGT Last administered on 08/19/18at 08:44; Admin Dose 75 MG; Start 08/18/18 at 13:30 Cefazolin Sodium 50 ml @ 100 mls/hr Q24H IVPB Last administered on 08/20/18at 16:40; Admin Dose 100 MLS/HR; Start 08/19/18 at 14:00 Levofloxacin/ Dextrose 50 ml @ 50 mls/hr Q48H IVPB Last administered on 08/19/18at 12:39; Admin Dose 50 MLS/HR; Start 08/19/18 at 12:30 Rifaximin (Xifaxan) 200 mg TID PO Last administered on 08/20/18 20:50; Admin Dose 200 MG; Start 08/19/18 at 13:00 THOMAS RILEY MD Aug 21, 2018 08:50
[2018-08-21] MEDS: ALBUTEROL HFA 8 GM INHALER INH SCH ×3 (08:57→19:42)
[2018-08-21] MEDS: MULTIVITAMINS 30 ML CUP NGT SCH (09:00)
[2018-08-21] MEDS: DOCUSATE SODIUM 10 MG/ML (10ML CUP) GTB SCH ×2 (09:00→21:40)
[2018-08-21] MEDS: ZINC SULFATE 220 MG CAP NGT SCH (09:00)
[2018-08-21] MEDS: ASCORBIC ACID 500 MG TAB NGT SCH (09:00)
[2018-08-21] MEDS: RIFAXIMIN 200 MG TAB PO SCH ×3 (09:00→21:40)
[2018-08-21] MEDS: FOLIC ACID 1 MG TAB NGT SCH (09:00)
--- NOTE | 2018-08-21 11:25 | CONS ---
Consult Date/Type/Reason Admit Date/Time Aug 04, 2018 at 23:10 Initial Consult Date 08/05/18 Type of Consult Pulmonary Requesting Provider: HARPAL AGGARWAL MD Date/Time of Note DATE: 08/21/18 TIME: 11:24 Subjective Eyes open but still following commands. Improved aeration on chest x-ray. Objective Vital Signs Date Temp Pulse Resp B/P (MAP) Pulse Ox O2 O2 Flow FiO2 Time Delivery Rate 08/21/18 108 25 128/79 100 Mechanical 11:00 (95) Ventilator 08/21/18 98.7 08:00 08/21/18 22 05:20 Intake and Output 08/20/18 08/20/18 08/21/18 1515:00 23:00 07:00 IntakeIntake Total 163.5 ml 257.5 ml 100 ml OutputOutput Total 255 ml 3095 ml 135 ml BalanceBalance -91.5 ml -2837.5 ml -35 ml Exam GENERAL: Well-nourished well-developed lady orally intubated on mechanical ventilation VITAL SIGNS: per chart NECK: Supple. No JVD or lymphadenopathy. CARDIAC EXAM: S1, S2. No added sounds or murmurs. CHEST: Diminished air entry bilaterally ABDOMEN: Mildly distended but no guarding or rebound EXTREMITIES: No cyanosis, clubbing edema +2 NEUROLOGIC: Generalized weakness. Vent Setting Ventilator Support Mode: PC Fraction of Inspired Oxygen pe: 22 Positive End Expiratory Pressu: 5.0 Results/Medications Result Diagram: 08/21/18 0430 08/21/18 0430 Results 24 hrs Laboratory Tests Test 08/21/18 04:30 White Blood Count 12.4 H Red Blood Count 3.25 L Hemoglobin 9.1 L Hematocrit 28.7 L Mean Corpuscular Volume 88.3 Mean Corpuscular Hemoglobin 28.0 L Mean Corpuscular Hemoglobin Concent 31.7 L Red Cell Distribution Width 15.8 H Platelet Count 346 # Mean Platelet Volume 14.0 H Immature Granulocytes % 1.400 H Neutrophils % 75.7 Lymphocytes % 12.5 L Monocytes % 7.1 Eosinophils % 2.2 Basophils % 1.1 Nucleated Red Blood Cells % 0.0 Immature Granulocytes # 0.170 H Neutrophils # 9.4 H Lymphocytes # 1.6 Monocytes # 0.9 Eosinophils # 0.3 Basophils # 0.1 Nucleated Red Blood Cells # 0.0 Sodium Level 142 Potassium Level 4.4 Chloride Level 103 Carbon Dioxide Level 27 Anion Gap 12 Blood Urea Nitrogen 69 H Creatinine 3.92 H Est Glomerular Filtrat Rate mL/min 13 L Glucose Level 86 Calcium Level 9.0 Phosphorus Level 6.2 H Magnesium Level 2.1 Medications Current Medications Norepinephrine 250 ml @ 1.875 mls/ hr TITRATE IV Last administered on 08/10/18 00:41; Admin Dose 5.625 MLS/HR; Start 08/04/18 at 23:15 Morphine Sulfate (morphine) 1 mg Q1H PRN IV PAIN Last administered on 08/17/18 18:30; Admin Dose 1 MG; Start 08/04/18 at 23:30 Atorvastatin Calcium (Lipitor) 80 mg DAILY@21 PO Last administered on 08/20/18 20:50; Admin Dose 80 MG; Start 08/05/18 at 21:00 Nitroglycerin/ Dextrose 250 ml @ 1.5 mls/hr TITRATE IV Last administered on 08/05/18 14:22; Admin Dose 72 MLS/HR; Start 08/05/18 at 01:00 Miscellaneous Information 1 ea NOTE XX ; Start 08/05/18 at 09:00 Acetaminophen (Tylenol Supp) 650 mg Q4H PRN [place] TEMP > 37C Last administered on 08/09/18at 04:37; Admin Dose 650 MG; Start 08/05/18 at 11:00 Acetaminophen (Tylenol Liquid) 650 mg Q4H PRN PO TEMP > 37C Last administered on 08/20/18 20:56; Admin Dose 650 MG; Start 08/05/18 at 11:00 Meperidine HCl (Demerol) 25 mg Q4H PRN IV POST OPERATIVE SHIVERING Last administered on 08/05/18 16:31; Admin Dose 25 MG; Start 08/05/18 at 11:00 Eye Lubricant (Akwa Oint) 1 applic Q6 BOTH EYES Last administered on 08/21/18 05:42; Admin Dose 1 APPLIC; Start 08/05/18 at 12:00 Eye Lubricant (Artificial Tears Oph) 2 drop Q6 BOTH EYES Last administered on 08/21/18 05:42; Admin Dose 2 DROP; Start 08/05/18 at 12:00 Insulin Human Regular 100 unit/ Sodium Chloride 100 ml @ 0 mls/hr PER PROTOCOL IV ; Start 08/05/18 at 12:00 Miscellaneous Information (* Miscellaneous Pharmacy Order) Treatment of Hypoglycemia: 1.BG 51... Per protocol XX ; Start 08/05/18 at 12:00 Dextrose (D50w Syringe) 25 ml Q15M PRN IV .DECREASED GLUCOSE; Start 08/05/18 at 12:00 Dextrose (D50w Syringe) 50 ml Q15M PRN IV .DECREASED GLUCOSE; Start 08/05/18 at 12:00 Fentanyl 100 ml @ 2.5 mls/hr TITRATE IV Last administered on 08/20/18 00:18; Admin Dose 7 MLS/HR; Start 08/05/18 at 12:00 Meperidine HCl (Demerol) 12.5 mg Q2H PRN IV POST OPERATIVE SHIVERING; Start 08/05/18 at 17:00 Aspirin (Aspirin) 81 mg DAILY NGT Last administered on 08/20/18 08:54; Admin Dose 81 MG; Start 08/06/18 at 09:00 Multivitamins (Multivitamin) 30 ml DAILY NGT Last administered on 08/20/18 08:54; Admin Dose 30 ML; Start 08/09/18 at 09:00 Zinc Sulfate (Zinc Sulfate) 220 mg DAILY NGT Last administered on 08/20/18 08:54; Admin Dose 220 MG; Start 08/09/18 at 09:00 Folic Acid (Folic Acid) 1 mg DAILY NGT Last administered on 08/20/18 08:54; Admin Dose 1 MG; Start 08/09/18 at 09:00 Ascorbic Acid (Vitamin C) 500 mg DAILY NGT Last administered on 08/20/18 08:54; Admin Dose 500 MG; Start 08/09/18 at 09:00 Albuterol (Ventolin Hfa) 4 puff Q6HWA RESP THERAPY INH Last administered on 08/21/18 08:57; Admin Dose 4 PUFF; Start 08/09/18 at 14:00 Ipratropium [place] (Atrovent Hfa) 4 puff Q6H RESP THERAPY INH Last administered on 08/21/18 08:57; Admin Dose 4 PUFF; Start 08/09/18 at 14:00 IV Flush (NS 10 ml) 10 ml PRN PRN IV IV PROTOCOL; Start 08/11/18 at 16:30 Lansoprazole (Prevacid) 30 mg 0600,1800 PEG Last administered on 08/19/18 18:42; Admin Dose 30 MG; Start 08/11/18 at 18:28 Heparin Sodium (Porcine) (Heparin (1000 Units/ml)) 3,000 unit PRN PRN CATHETER Dialysis Last administered on 08/20/18 16:08; Admin Dose 3,000 UNIT; Start 08/12/18 at 14:30 Labetalol HCl (Labetalol) 10 mg Q4H PRN IV ELEVATED SYSTOLIC BP > 180 Last administered on 08/20/18 16:54; Admin Dose 10 MG; Start 08/14/18 at 19:00 Midazolam HCl 50 ml @ 1 mls/hr TITRATE IV Last administered on 08/20/18 00:16; Admin Dose 5 MLS/HR; Start 08/15/18 at 11:00 Hydralazine HCl (Apresoline) 20 mg Q2 PRN IV ELEVATED SYSTOLIC BP Last administered on 08/17/18 18:30; Admin Dose 20 MG; Start 08/16/18 at 08:00 Metronidazole 100 ml @ 100 mls/hr Q8 IVPB Last administered on 08/21/18 05:42; Admin Dose 100 MLS/HR; Start 08/16/18 at 22:00 Carvedilol (Coreg) 12.5 mg Q6H PO Last administered on 08/21/18 08:05; Admin Dose 12.5 MG; Start 08/17/18 at 01:00 Docusate Sodium (Colace Liquid Cup) 100 mg BID GTB Last administered on 08/20/18 20:50; Admin Dose 100 MG; Start 08/18/18 at 09:00 Clopidogrel Bisulfate (plaVIX) 75 mg DAILY NGT Last administered on 08/19/18 08:44; Admin Dose 75 MG; Start 08/18/18 at 13:30 Cefazolin Sodium 50 ml @ 100 mls/hr Q24H IVPB Last administered on 08/20/18 16:40; Admin Dose 100 MLS/HR; Start 08/19/18 at 14:00 Levofloxacin/ Dextrose 50 ml @ 50 mls/hr Q48H IVPB Last administered on 08/19/18 12:39; Admin Dose 50 MLS/HR; Start 08/19/18 at 12:30 Rifaximin (Xifaxan) 200 mg TID PO Last administered on 08/20/18at 20:50; Admin Dose 200 MG; Start 08/19/18 at 13:00 Assessment/Plan Hospital Course (Demo Recall) IMP: 1. Ventricular Fibrillation Arrest--s/p ROSC 2/2 STEMI s/p PCI status post hypothermia protocol. Multivessel coronary artery disease status post stent placement x3 2. STEMI, Status post stent x3 placement. 3. CVA multiple infarcts noted. 4. Hypoxemic respiratory failure/ARDS slowly improving. 5. HUSEYIN--likely ATN continues hemodialysis 6. Ischemic hepatopathy--2/2 arrest 7. Metabolic acidosis--2/2 arrest 8. Anemia 9 Thrombocytopenia 10. Encephalopathy likely toxic metabolic RECS: 1. Continue mechanical ventilation, currently not close to weaning from mechanical ventilation and would proceed with tracheostomy 2. Decrease FiO2 as tolerated low tidal volume strategy if needed 3. Continue tube feeding 4. PEG tube scheduled for today. 5. Continue Abx 6. Pulmonary toilet 7. Hemodialysis per nephrology Critical care time 40 minutes. CHINO ANDERSON MD, [facility] Aug 21, 2018 11:25
[2018-08-21] MEDS: FENTAnyl (DRIP) 1000 mcg/100mL 100 ML IV SCH (12:24)
[2018-08-21] MEDS: LEVOFLOXACIN 250MG/D5W (PMX) 50 ML IVPB SCH (12:52)
--- NOTE | 2018-08-21 12:56 | PN ---
Date/Time of Note Date/Time of Note DATE: 08/21/18 TIME: 12:55 Assessment/Plan Lines/Catheters IV Catheter Type (from Nrsg): PICC Line Aguilar in Place (from Nrsg): Yes Assessment/Plan Assessment/Plan Resp Failure tracestomy Tomorrow Subjective 24 Hr Interval Summary Constitutional: improved Pain Control: mild Exam/Review of Systems Vital Signs Vitals Vital Signs Date Temp Pulse Resp B/P (MAP) Pulse Ox O2 O2 Flow FiO2 Time Delivery Rate 08/21/18 110 23 100 30 11:20 08/21/18 128/79 Mechanical 11:00 (95) Ventilator 08/21/18 98.7 08:00 Intake and Output 08/20/18 08/20/18 08/21/18 1515:00 23:00 07:00 IntakeIntake Total 163.5 ml 257.5 ml 100 ml OutputOutput Total 255 ml 3095 ml 135 ml BalanceBalance -91.5 ml -2837.5 ml -35 ml Exam Eyes: nl conjunctiva, EOMI, nl lids, nl sclera ENMT: nl external ears & nose, nl lips & teeth, nl nasal mucosa & septum, mucosa pink and moist Neck: supple, non-tender Respiratory: clear to auscultation, normal air movement Cardiovascular: regular rate and rhythm, nl pulses Extremities: normal pulses Results Result Diagram: 08/21/1842908/21/18429 KRISTOFER BAKER MD Aug 21, 2018 12:56
--- NOTE | 2018-08-21 14:18 | CONS ---
Assessment/Plan Assessment/Plan Hospital Course (Demo Recall) No events overnight. Patient looks comfortable on vent. Family at bedside. She failed multiple weaning trials. WBC today 12.4. H&H 9.1 and 28.7 platelets 346 neutrophils 75.7. Chest x-ray this morning revealed no change Antimicrobials: Ancef, Levaquin, Flagyl Microbiology: Urine culture on admission grew E. coli and Proteus, blood cultures growing oxacillin sensitive staph aureus endotracheal aspirate also growing oxacillin sensitive staph aureus ear drainage preliminary growing staph aureus, repeat blood cultures 2 days ago negative Indwelling: Endotracheal tube, orogastric tube, right femoral Devan, right upper extremity PICC line Physical examination: Obese well-developed middle-aged woman who is intubated in no distress. Head atraumatic normocephalic neck is supple chest rise symmetrical breath sounds diminished bases. Heart: S1-S2. Abdomen distended. Bowel sounds hypoactive. Extremities cyanotic Assessment: 1. Severe sepsis, s/p shock 2. Oxacillin sensitive staph aureus bacteremia 2 to #3 3. Oxacillin sensitive staph aureus pneumonia 4. Polymicrobial UTI 5. ST elevation [place], status post stent 6. Status post V. fib arrest 7. Acute renal failure, started on hemodialysis 8. 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 Anemia and thrombocytopenia 10. Acute sinusitis and bilateral mastoiditis 11. Morbid obesity 12. Diarrhea, r/o C dif Plan: Stable, continue antibiotics, f/u neurology/pulmonary recommendations, plan for trach and PEG. Consultation Date/Type/Reason Admit Date/Time Aug 04, 2018 at 23:10 Initial Consult Date 08/12/18 Type of Consult id Requesting Provider: HARPAL AGGARWAL MD Date/Time of Note DATE: 08/21/18 TIME: 14:17 Exam/Review of Systems Exam Vitals Vital Signs Date Temp Pulse Resp B/P (MAP) Pulse Ox O2 O2 Flow FiO2 Time Delivery Rate 08/21/18 115 29 135/90 93 Mechanical 13:00 (105) Ventilator 08/21/18 97.4 12:00 08/21/18 30 11:20 Intake and Output 08/20/18 08/20/18 08/21/18 1414:59 22:59 06:59 IntakeIntake Total 173.0 ml 260.0 ml 100 ml OutputOutput Total 255 ml 3095 ml 135 ml BalanceBalance -82.0 ml -2835.0 ml -35 ml Results Result Diagram: 08/21/1842908/21/18429 Results 24hrs Laboratory Tests Test 08/21/18 04:30 White Blood Count 12.4 H Red Blood Count 3.25 L Hemoglobin 9.1 L Hematocrit 28.7 L Mean Corpuscular Volume 88.3 Mean Corpuscular Hemoglobin 28.0 L Mean Corpuscular Hemoglobin Concent 31.7 L Red Cell Distribution Width 15.8 H Platelet Count 346 # Mean Platelet Volume 14.0 H Immature Granulocytes % 1.400 H Neutrophils % 75.7 Lymphocytes % 12.5 L Monocytes % 7.1 Eosinophils % 2.2 Basophils % 1.1 Nucleated Red Blood Cells % 0.0 Immature Granulocytes # 0.170 H Neutrophils # 9.4 H Lymphocytes # 1.6 Monocytes # 0.9 Eosinophils # 0.3 Basophils # 0.1 Nucleated Red Blood Cells # 0.0 Sodium Level 142 Potassium Level 4.4 Chloride Level 103 Carbon Dioxide Level 27 Anion Gap 12 Blood Urea Nitrogen 69 H Creatinine 3.92 H Est Glomerular Filtrat Rate mL/min 13 L Glucose Level 86 Calcium Level 9.0 Phosphorus Level 6.2 H Magnesium Level 2.1 Medications Medication Current Medications Norepinephrine 250 ml @ 1.875 mls/ hr TITRATE IV Last administered on 08/10/18at 00:41; Admin Dose 5.625 MLS/HR; Start 08/04/18 at 23:15 Morphine Sulfate (morphine) 1 mg Q1H PRN IV PAIN Last administered on 08/17/18at 18:30; Admin Dose 1 MG; Start 08/04/18 at 23:30 Atorvastatin Calcium (Lipitor) 80 mg DAILY@21 PO Last administered on 08/20/18at 20:50; Admin Dose 80 MG; Start 08/05/18 at 21:00 Nitroglycerin/ Dextrose 250 ml @ 1.5 mls/hr TITRATE IV Last administered on 08/05/18at 14:22; Admin Dose 72 MLS/HR; Start 08/05/18 at 01:00 Miscellaneous Information 1 ea NOTE XX ; Start 08/05/18 at 09:00 Acetaminophen (Tylenol Supp) 650 mg Q4H PRN [place] TEMP > 37C Last administered on 08/09/18 04:37; Admin Dose 650 MG; Start 08/05/18 at 11:00 Acetaminophen (Tylenol Liquid) 650 mg Q4H PRN PO TEMP > 37C Last administered on 08/20/18 20:56; Admin Dose 650 MG; Start 08/05/18 at 11:00 Meperidine HCl (Demerol) 25 mg Q4H PRN IV POST OPERATIVE SHIVERING Last administered on 08/05/18 16:31; Admin Dose 25 MG; Start 08/05/18 at 11:00 Eye Lubricant (Akwa Oint) 1 applic Q6 BOTH EYES Last administered on 08/21/18 13:01; Admin Dose 1 APPLIC; Start 08/05/18 at 12:00 Eye Lubricant (Artificial Tears Oph) 2 drop Q6 BOTH EYES Last administered on 08/21/18 13:01; Admin Dose 2 DROP; Start 08/05/18 at 12:00 Insulin Human Regular 100 unit/ Sodium Chloride 100 ml @ 0 mls/hr PER PROTOCOL IV ; Start 08/05/18 at 12:00 Miscellaneous Information (* Miscellaneous Pharmacy Order) Treatment of Hypoglycemia: 1.BG 51... Per protocol XX ; Start 08/05/18 at 12:00 Dextrose (D50w Syringe) 25 ml Q15M PRN IV .DECREASED GLUCOSE; Start 08/05/18 at 12:00 Dextrose (D50w Syringe) 50 ml Q15M PRN IV .DECREASED GLUCOSE; Start 08/05/18 at 12:00 Fentanyl 100 ml @ 2.5 mls/hr TITRATE IV Last administered on 08/21/18 12:24; Admin Dose 5 MLS/HR; Start 08/05/18 at 12:00 Meperidine HCl (Demerol) 12.5 mg Q2H PRN IV POST OPERATIVE SHIVERING; Start 08/05/18 at 17:00 Aspirin (Aspirin) 81 mg DAILY NGT Last administered on 08/20/18 08:54; Admin Dose 81 MG; Start 08/06/18 at 09:00 Multivitamins (Multivitamin) 30 ml DAILY NGT Last administered on 08/20/18 08:54; Admin Dose 30 ML; Start 08/09/18 at 09:00 Zinc Sulfate (Zinc Sulfate) 220 mg DAILY NGT Last administered on 08/20/18 08:54; Admin Dose 220 MG; Start 08/09/18 at 09:00 Folic Acid (Folic Acid) 1 mg DAILY NGT Last administered on 08/20/18 08:54; Admin Dose 1 MG; Start 08/09/18 at 09:00 Ascorbic Acid (Vitamin C) 500 mg DAILY NGT Last administered on 08/20/18 08:54; Admin Dose 500 MG; Start 08/09/18 at 09:00 Albuterol (Ventolin Hfa) 4 puff Q6HWA RESP THERAPY INH Last administered on 08/21/18 13:10; Admin Dose 4 PUFF; Start 08/09/18 at 14:00 Ipratropium [place] (Atrovent Hfa) 4 puff Q6H RESP THERAPY INH Last administered on 08/21/18 13:10; Admin Dose 4 PUFF; Start 08/09/18 at 14:00 IV Flush (NS 10 ml) 10 ml PRN PRN IV IV PROTOCOL; Start 08/11/18 at 16:30 Lansoprazole (Prevacid) 30 mg 0600,1800 PEG Last administered on 08/19/18 18:42; Admin Dose 30 MG; Start 08/11/18 at 18:28 Heparin Sodium (Porcine) (Heparin (1000 Units/ml)) 3,000 unit PRN PRN CATHETER Dialysis Last administered on 08/20/18 16:08; Admin Dose 3,000 UNIT; Start 08/12/18 at 14:30 Labetalol HCl (Labetalol) 10 mg Q4H PRN IV ELEVATED SYSTOLIC BP > 180 Last administered on 08/20/18 16:54; Admin Dose 10 MG; Start 08/14/18 at 19:00 Midazolam HCl 50 ml @ 1 mls/hr TITRATE IV Last administered on 08/20/18 00:16; Admin Dose 5 MLS/HR; Start 08/15/18 at 11:00 Hydralazine HCl (Apresoline) 20 mg Q2 PRN IV ELEVATED SYSTOLIC BP Last a dministered on 08/17/18 18:30; Admin Dose 20 MG; Start 08/16/18 at 08:00 Metronidazole 100 ml @ 100 mls/hr Q8 IVPB Last administered on 08/21/18 05:42; Admin Dose 100 MLS/HR; Start 08/16/18 at 22:00 Carvedilol (Coreg) 12.5 mg Q6H PO Last administered on 08/21/18 12:51; Admin Dose 12.5 MG; Start 08/17/18 at 01:00 Docusate Sodium (Colace Liquid Cup) 100 mg BID GTB Last administered on 08/20/18at 20:50; Admin Dose 100 MG; Start 08/18/18 at 09:00 Clopidogrel Bisulfate (plaVIX) 75 mg DAILY NGT Last administered on 08/19/18at 08:44; Admin Dose 75 MG; Start 08/18/18 at 13:30 Cefazolin Sodium 50 ml @ 100 mls/hr Q24H IVPB Last administered on 08/20/18at 16:40; Admin Dose 100 MLS/HR; Start 08/19/18 at 14:00 Levofloxacin/ Dextrose 50 ml @ 50 mls/hr Q48H IVPB Last administered on 08/21/18 12:52; Admin Dose 50 MLS/HR; Start 08/19/18 at 12:30 Rifaximin (Xifaxan) 200 mg TID PO Last administered on 08/20/18 20:50; Admin Dose 200 MG; Start 08/19/18 at 13:00 WIN LUCIANO NP Aug 21, 2018 14:18
[2018-08-21] MEDS: CEFAZOLIN 1 GM/50 ML (PMX) 50 ML IVPB SCH (14:34)
--- NOTE | 2018-08-21 15:46 | CONS ---
Assessment/Plan Assessment/Plan Hospital Course 38 yo F w/ reported Hx of HTN and DM2 who is admitted to the [facility] ICU s/p a vfib cardiac arrest. She is now s/p cardiac catheterization w/ 2 coronary stents. now s/p targeted temperature therapy. Neurology is consulted given persistent encephalopathy...which is likely multifactorial -- toxic-metabolic, medications, hypoxic-ischemic MRI brain is notable for multiple bihemispheric infarcts... likely of cardioembolic origin in the context of her recent arrest. EEG is without epileptiform activity CUS is unrevealing. Ammonia, RPR level wnl. ESR >130 Echo on 08/05 in unrevealing. P: Await hypercoag panel; defer CTA for now given poor renal function Cont ASA/Lipitor for secondary stroke prevention Cont medical management per primary Will follow clinically Consultation Date/Type/Reason Admit Date/Time Aug 04, 2018 at 23:10 Type of Consult Neurology Requesting Provider: HARPAL AGGARWAL MD Date/Time of Note DATE: 08/21/18 TIME: 15:46 24 HR Interval Summary Free Text/Dictation Continues critical care. Awaiting possible PEG placement today. Subjective hx not possible: pt non-verbal, pt critical Exam Vital Signs Vitals Vital Signs Date Temp Pulse Resp B/P (MAP) Pulse Ox O2 O2 Flow FiO2 Time Delivery Rate 08/21/18 118 31 142/87 95 Mechanical 15:00 (105) Ventilator 08/21/18 30 12:00 08/21/18 97.4 12:00 Intake and Output 08/20/18 08/20/18 08/21/18 1515:00 23:00 07:00 IntakeIntake Total 163.5 ml 257.5 ml 100 ml OutputOutput Total 255 ml 3095 ml 135 ml BalanceBalance -91.5 ml -2837.5 ml -35 ml Exam PE: Gen Appearance: No Apparent Distress HEENT: Intubated Cardiovascular: Regular rate Abdomen: Soft Extremities: Dry NE: The patient was sedated and nonverbal. Opens her eyes spontaneously. Able to track; unable to follow any commands. Cranial nerve examination was limited by mental status. Pupils were equal and reactive to light. There was no afferent pupillary defect. Funduscopic examination was limited. Face was grossly symmetric, w/ present corneal and cough reflexes. Tone was normal. Muscle bulk was normal. I did not see fasciculations. The patient withdrew to noxious stimulation in her LLE. Coordination and gait testing was limited by mental status. Arm and leg reflexes were within normal limits and symmetric. Alvarez's sign was absent. Plantar responses were flexor. KAYCEE ESCOBEDO NP Aug 21, 2018 15:46
[2018-08-21] MEDS ORDERED: PROPOFOL 20 ML ONE (16:21)
--- NOTE | 2018-08-21 16:30 | CONS ---
Consult Date/Type/Reason Admit Date/Time Aug 04, 2018 at 23:10 Initial Consult Date 08/05/18 Type of Consultation: cv Requesting Provider: HARPAL AGGARWAL MD Date/Time of Note DATE: 08/21/18 TIME: 16:28 Subjective Interventional cardiology follow-up progress note/critical care Subjective: Events noted discussed with the staff and physicians. d/w family Patient remains intubated on the vent . she is more responsive No V tachycardia or V fibrillation. BP is elevated pt still with oral and nasopharyngeal bleeding events noted s/p PCI 100% occluded LAD 08/04 S/P PCI LCX/ OM Objective: General: Obese female started with intubation on the vent HEENT: NC/AT. pupils are equal. round. NECK: . no stridor. CV: RRR. systolic murmur; no gallop or rubs. PULM: no wheezing + diffuse rhonchi. GI: Obese SOFT, NT, ND, no rebound or guarding Extremity: +B/L LE edema. no clubbing. neuro: opens her eyes Psych: Calm now rectal: deferred EKG August 06, 2018 was personally within normal sinus rhythm. T wave inversions anterior and inferior leads ECG 08/07: NSR ST T abn c/w ant/lat ischemia CXR 08/14: Nonspecific patchy bilateral pulmonary opacity, mildly improved on the right. No pneumothorax. Endotracheal tube, nasogastric tube, and right-sided PICC line remain in place. Stable mild cardiomegaly. The osseous structures are remarka ble for degenerative enthesopathy of the spine. Chest x-ray done August 06 shows:No evidence for active cardiopulmonary disease. CXR 08/19: Diffuse bilateral reticular nodular infiltrates unchanged. Question bronchopneumonia versus failure. ECHO personally reviewed Normal left ventricular cavity size. Normal left ventricular wall thickness. Ejection fraction is visually estimated at 55-65 %. Normal appearance of the mitral valve. Mitral valve is not well visualized. No mitral valve regurgitation is seen. Aortic valve not well visualized. No aortic regurgitation. Normal appearance of the tricuspid valve. Unable to obtain RVSP due to minimal presence of tricuspid regurgitation. No evidence of tricuspid regurgitation. Normal pericardium with no significant pericardial effusion. suboptimal study. Objective Vitals Vital Signs Date Temp Pulse Resp B/P (MAP) Pulse Ox O2 O2 Flow FiO2 Time Delivery Rate 08/21/18 118 31 142/87 95 Mechanical 15:00 (105) Ventilator 08/21/18 30 12:00 08/21/18 97.4 12:00 Intake and Output 08/20/18 08/20/18 08/21/18 1515:00 23:00 07:00 IntakeIntake Total 163.5 ml 257.5 ml 100 ml OutputOutput Total 255 ml 3095 ml 135 ml BalanceBalance -91.5 ml -2837.5 ml -35 ml Results/Medications Result Diagram: 08/21/18 0430 08/21/18 0430 Results 24 hrs Laboratory Tests Test 08/21/18 04:30 White Blood Count 12.4 H Red Blood Count 3.25 L Hemoglobin 9.1 L Hematocrit 28.7 L Mean Corpuscular Volume 88.3 Mean Corpuscular Hemoglobin 28.0 L Mean Corpuscular Hemoglobin Concent 31.7 L Red Cell Distribution Width 15.8 H Platelet Count 346 # Mean Platelet Volume 14.0 H Immature Granulocytes % 1.400 H Neutrophils % 75.7 Lymphocytes % 12.5 L Monocytes % 7.1 Eosinophils % 2.2 Basophils % 1.1 Nucleated Red Blood Cells % 0.0 Immature Granulocytes # 0.170 H Neutrophils # 9.4 H Lymphocytes # 1.6 Monocytes # 0.9 Eosinophils # 0.3 Basophils # 0.1 Nucleated Red Blood Cells # 0.0 Sodium Level 142 Potassium Level 4.4 Chloride Level 103 Carbon Dioxide Level 27 Anion Gap 12 Blood Urea Nitrogen 69 H Creatinine 3.92 H Est Glomerular Filtrat Rate mL/min 13 L Glucose Level 86 Calcium Level 9.0 Phosphorus Level 6.2 H Magnesium Level 2.1 Medications Current Medications Norepinephrine 250 ml @ 1.875 mls/ hr TITRATE IV Last administered on 08/10/18at 00:41; Admin Dose 5.625 MLS/HR; Start 08/04/18 at 23:15 Morphine Sulfate (morphine) 1 mg Q1H PRN IV PAIN Last administered on 08/17/18at 18:30; Admin Dose 1 MG; Start 08/04/18 at 23:30 Atorvastatin Calcium (Lipitor) 80 mg DAILY@21 PO Last administered on 08/20/18at 20:50; Admin Dose 80 MG; Start 08/05/18 at 21:00 Nitroglycerin/ Dextrose 250 ml @ 1.5 mls/hr TITRATE IV Last administered on 08/05/18 14:22; Admin Dose 72 MLS/HR; Start 08/05/18 at 01:00 Miscellaneous Information 1 ea NOTE XX ; Start 08/05/18 at 09:00 Acetaminophen (Tylenol Supp) 650 mg Q4H PRN MI TEMP > 37C Last administered on 08/09/18 04:37; Admin Dose 650 MG; Start 08/05/18 at 11:00 Acetaminophen (Tylenol Liquid) 650 mg Q4H PRN PO TEMP > 37C Last administered on 08/20/18 20:56; Admin Dose 650 MG; Start 08/05/18 at 11:00 Meperidine HCl (Demerol) 25 mg Q4H PRN IV POST OPERATIVE SHIVERING Last administered on 08/05/18 16:31; Admin Dose 25 MG; Start 08/05/18 at 11:00 Eye Lubricant (Akwa Oint) 1 applic Q6 BOTH EYES Last administered on 08/21/18 13:01; Admin Dose 1 APPLIC; Start 08/05/18 at 12:00 Eye Lubricant (Artificial Tears Oph) 2 drop Q6 BOTH EYES Last administered on 08/21/18 13:01; Admin Dose 2 DROP; Start 08/05/18 at 12:00 Insulin Human Regular 100 unit/ Sodium Chloride 100 ml @ 0 mls/hr PER PROTOCOL IV ; Start 08/05/18 at 12:00 Miscellaneous Information (* Miscellaneous Pharmacy Order) Treatment of Hypoglycemia: 1.BG 51... Per protocol XX ; Start 08/05/18 at 12:00 Dextrose (D50w Syringe) 25 ml Q15M PRN IV .DECREASED GLUCOSE; Start 08/05/18 at 12:00 Dextrose (D50w Syringe) 50 ml Q15M PRN IV .DECREASED GLUCOSE; Start 08/05/18 at 12:00 Fentanyl 100 ml @ 2.5 mls/hr TITRATE IV Last administered on 08/21/18 12:24; Admin Dose 5 MLS/HR; Start 08/05/18 at 12:00 Meperidine HCl (Demerol) 12.5 mg Q2H PRN IV POST OPERATIVE SHIVERING; Start 08/05/18 at 17:00 Aspirin (Aspirin) 81 mg DAILY NGT Last administered on 08/20/18 08:54; Admin Dose 81 MG; Start 08/06/18 at 09:00 Multivitamins (Multivitamin) 30 ml DAILY NGT Last administered on 08/20/18 08:54; Admin Dose 30 ML; Start 08/09/18 at 09:00 Zinc Sulfate (Zinc Sulfate) 220 mg DAILY NGT Last administered on 08/20/18 08:54; Admin Dose 220 MG; Start 08/09/18 at 09:00 Folic Acid (Folic Acid) 1 mg DAILY NGT Last administered on 08/20/18 08:54; Admin Dose 1 MG; Start 08/09/18 at 09:00 Ascorbic Acid (Vitamin C) 500 mg DAILY NGT Last administered on 08/20/18 08:54; Admin Dose 500 MG; Start 08/09/18 at 09:00 Albuterol (Ventolin Hfa) 4 puff Q6HWA RESP THERAPY INH Last administered on 08/21/18 13:10; Admin Dose 4 PUFF; Start 08/09/18 at 14:00 Ipratropium [place] (Atrovent Hfa) 4 puff Q6H RESP THERAPY INH Last administered on 08/21/18 13:10; Admin Dose 4 PUFF; Start 08/09/18 at 14:00 IV Flush (NS 10 ml) 10 ml PRN PRN IV IV PROTOCOL; Start 08/11/18 at 16:30 Lansoprazole (Prevacid) 30 mg 0600,1800 PEG Last administered on 08/19/18 18:42; Admin Dose 30 MG; Start 08/11/18 at 18:28 Heparin Sodium (Porcine) (Heparin (1000 Units/ml)) 3,000 unit PRN PRN CATHETER Dialysis Last administered on 08/20/18 16:08; Admin Dose 3,000 UNIT; Start 08/12/18 at 14:30 Labetalol HCl (Labetalol) 10 mg Q4H PRN IV ELEVATED SYSTOLIC BP > 180 Last administered on 08/20/18 16:54; Admin Dose 10 MG; Start 08/14/18 at 19:00 Midazolam HCl 50 ml @ 1 mls/hr TITRATE IV Last administered on 08/20/18 00:16; Admin Dose 5 MLS/HR; Start 08/15/18 at 11:00 Hydralazine HCl (Apresoline) 20 mg Q2 PRN IV ELEVATED SYSTOLIC BP Last administered on 08/17/18 18:30; Admin Dose 20 MG; Start 08/16/18 at 08:00 Metronidazole 100 ml @ 100 mls/hr Q8 IVPB Last administered on 08/21/18 14:51; Admin Dose 100 MLS/HR; Start 08/16/18 at 22:00 Carvedilol (Coreg) 12.5 mg Q6H PO Last administered on 08/21/18 12:51; Admin Dose 12.5 MG; Start 08/17/18 at 01:00 Docusate Sodium (Colace Liquid Cup) 100 mg BID GTB Last administered on 08/20/18 20:50; Admin Dose 100 MG; Start 08/18/18 at 09:00 Clopidogrel Bisulfate (plaVIX) 75 mg DAILY NGT Last administered on 08/19/18 08:44; Admin Dose 75 MG; Start 08/18/18 at 13:30 Cefazolin Sodium 50 ml @ 100 mls/hr Q24H IVPB Last administered on 08/21/18 14:34; Admin Dose 100 MLS/HR; Start 08/19/18 at 14:00 Levofloxacin/ Dextrose 50 ml @ 50 mls/hr Q48H IVPB Last administered on 08/21/18 12:52; Admin Dose 50 MLS/HR; Start 08/19/18 at 12:30 Rifaximin (Xifaxan) 200 mg TID PO Last administered on 08/20/18 20:50; Admin Dose 200 MG; Start 08/19/18 at 13:00 Assessment/Plan Hospital Course (Demo Recall) 1. s/p V. fib cardiac arrest 2. Acute myocardial infarction 3. Status post emergent PCI of the 100% occluded LAD as well as PTCA of the diagonal and PCI LCX/ OM 4. Diabetes 5. Respiratory failure status post intubation on the vent 6. Hypertension 7. Renal failure : acute on chronic 8. Likely history of congestive heart failure 9. Dyslipidemia 10. Encephalopathy: Clear anoxic brain injury on hypothermia protocol 11. Morbid obesity 12. Anemia 13. elevated LFT 14. fever, bacteremia pneumonia 15. Malnutrition, anasarca . 16. septic shock and bacteremia 17. oropharyngeal bleedig 18. CVA Recommendations: Continue with aspirin Brilinta was changed to plavix due to recurrent oropharyngeal bleeding as well as patient currently with renal failure on dialysis. BUT will be at high risk of stent thrombosis if stop the plavix . advised not to stop the plavix Antibiotic management as per ID recommendation HD as per renal Vent support respiratory care as per internal medicine and pulmonary consultants. cont Coreg as tolerated/needed Monitor renal function. f/u renal consult rec regarding hemodialysis PPI . Transfusion prn given her severe anemia and [place]/ [facility] to re-evaluate for oropharyngeal bleeding More than 33 minutes of critical care time was for management treatment is critically patient excluding any procedures Thank you for his referral. We will continue to follow along with you LOIS JOHNSON MD [facility] LOIS JOHNSON MD Aug 21, 2018 16:30
--- NOTE | 2018-08-21 17:14 | OPPN ---
Date/Time of Note Date/Time of Note DATE: 08/21/18 TIME: 17:08 Proc Note GI Procedure Date 08/21/18 Indication: treatment Pre-procedure Diagnosis Nutritional support requirement Post-procedure Diagnosis Impression: Uneventful percutaneous endoscopic gastrostomy tube placement. Placement of [place] 20 gastrostomy tube. Plan: May use gastrostomy tube for medications tonight. May start feedings tomorrow G-Tube site care Procedure Performed: Endoscopy, Other (PEG) Surgeon JEWELL MARCELO MD See signature line Script Developer none Anesthesia Type: MAC, other Anesthesiologist: ELIZABET PICKENS MD Tourniquet Time none EBL none Transfusion required none Biopsy 1: none Grafts/Implants none Tubes/Drains none Complication(s) none Disposition: other (ICU) Procedure Description After informed consent, with the patient/relatives understanding the procedure, its indications, potential risks and complications, including but not limited to: Allergic reaction, bleeding, perforation or infection, and all after all pertinent questions were answered to the patient's satisfaction, patient/relative signed witnessed informed consent. Following this, premedication was administered slowly IV push under care of cardiovascular respiratory monitoring with pulse oximetry, and automatic blood pressure, and industrial truck operator. Once to sedative effect was achieved the patient was placed in the left lateral decubitus, the panendoscope was introduced and advanced under visual control. Careful examination of the upper gastrointestinal tract, both on insertion as well as withdrawal of the instrument disclosed following findings: ESOPHAGUS: The mucosa of the entire esophagus was carefully examined and showed the following findings: The mucosa appears within normal limits. There is no evidence of esophagitis, varices, neoplasm or stricture. No hiatal hernia identified. STOMACH: Upon entrance to the stomach air was insufflated, the gastric thomas distended normally. The mucosa of the fundus, body and antrum of the stomach was carefully examined both head-on and on retroflexion, and showed the following findings: The mucosa appears within normal limits with no abnormalities. There is no evidence of gastritis, ulcers or neoplasm. PYLORUS: The pylorus was carefully examined and showed the following findings: The pylorus appears patent and within normal limits, with no evidence of gastric outlet obstruction. DUODENUM: The duodenal mucosa was carefully examined in the duodenal bulb as well as the second portion of the duodenum and showed the following findings: The mucosa appears unremarkable with no evidence of duodenitis, ulcer or neoplasm. The instrument was then brought back to the stomach and the anterior wall mid- body was identified by transillumination and "finger indentation", this area was then marked in the anterior wall of the abdomen, it was cleansed with Betadine a nd infiltrated with Xylocaine 1%. Following this a trocar needle was introduced into the gastric lumen under visual control with the endoscope, once in the gastric lumen a guide wire was advanced and secured with a polypectomy snare, at this point the endoscope was withdrawn bringing the guidewire out through the patient's mouth. Following this a [place] #20 gastrostomy tube was introduced over the guidewire, with the [place] technique without difficulty, a small incision was performed in the skin to allow easy passage of the G-tube, once the position of the gastrostomy was confirmed, the external stopper and connectors were installed, and a clean dressing applied. The patient tolerated the procedure well and was transferred out of the endoscopy suite awake, and in good condition to continue recovery under observation, feedings will start in the next 12-24 hours and the discharge in the care will be instituted. Copies To: CC: JEWELL MARCELO MD ; JEWELL MARCELO MD Aug 21, 2018 17:14
[2018-08-21] MEDS: CLOPIDOGREL 75 MG TAB NGT SCH (17:29)
[2018-08-21] MEDS: ASPIRIN 81 MG TAB NGT SCH (17:29)
--- NOTE | 2018-08-21 18:18 | CONS ---
Consultation Date/Type/Reason Admit Date/Time Aug 04, 2018 at 23:10 Date/Time of Note DATE: 08/21/18 TIME: 18:17 Hx of Present Illness V. fib cardiac arrest secondary to STEMI Acute renal failure Hemodialysis Acute bilateral CVA Encephalopathy probably secondary to cardiac arrest Septic shock I discussed CODE STATUS with patient's family during the first conference and CODE STATUS was changed to DO NOT RESUSCITATE. Then next family conference was done on August 19 family members decided to continue with full level of care including PEG and trach but maintain DO NOT RESUSCITATE. We will continue to follow patient and family members for ongoing supportive care. Past Medical History Medical History: coronary artery disease, diabetes, hypertension Medications Current Medications Norepinephrine 250 ml @ 1.875 mls/ hr TITRATE IV Last administered on 08/10/18at 00:41; Admin Dose 5.625 MLS/HR; Start 08/04/18 at 23:15 Morphine Sulfate (morphine) 1 mg Q1H PRN IV PAIN Last administered on 08/17/18 18:30; Admin Dose 1 MG; Start 08/04/18 at 23:30 Atorvastatin Calcium (Lipitor) 80 mg DAILY@21 PO Last administered on 08/20/18 20:50; Admin Dose 80 MG; Start 08/05/18 at 21:00 Nitroglycerin/ Dextrose 250 ml @ 1.5 mls/hr TITRATE IV Last administered on 08/05/18at 14:22; Admin Dose 72 MLS/HR; Start 08/05/18 at 01:00 Miscellaneous Information 1 ea NOTE XX ; Start 08/05/18 at 09:00 Acetaminophen (Tylenol Supp) 650 mg Q4H PRN MT TEMP > 37C Last administered on 08/09/18at 04:37; Admin Dose 650 MG; Start 08/05/18 at 11:00 Acetaminophen (Tylenol Liquid) 650 mg Q4H PRN PO TEMP > 37C Last administered on 08/20/18at 20:56; Admin Dose 650 MG; Start 08/05/18 at 11:00 Meperidine HCl (Demerol) 25 mg Q4H PRN IV POST OPERATIVE SHIVERING Last administered on 08/05/18at 16:31; Admin Dose 25 MG; Start 08/05/18 at 11:00 Eye Lubricant (Akwa Oint) 1 applic Q6 BOTH EYES Last administered on 08/21/18 17:29; Admin Dose 1 APPLIC; Start 08/05/18 at 12:00 Eye Lubricant (Artificial Tears Oph) 2 drop Q6 BOTH EYES Last administered on 08/21/18 17:29; Admin Dose 2 DROP; Start 08/05/18 at 12:00 Insulin Human Regular 100 unit/ Sodium Chloride 100 ml @ 0 mls/hr PER PROTOCOL IV ; Start 08/05/18 at 12:00 Miscellaneous Information (* Miscellaneous Pharmacy Order) Treatment of Hypoglycemia: 1.BG 51... Per protocol XX ; Start 08/05/18 at 12:00 Dextrose (D50w Syringe) 25 ml Q15M PRN IV .DECREASED GLUCOSE; Start 08/05/18 at 12:00 Dextrose (D50w Syringe) 50 ml Q15M PRN IV .DECREASED GLUCOSE; Start 08/05/18 at 12:00 Fentanyl 100 ml @ 2.5 mls/hr TITRATE IV Last administered on 08/21/18 12:24; Admin Dose 5 MLS/HR; Start 08/05/18 at 12:00 Meperidine HCl (Demerol) 12.5 mg Q2H PRN IV POST OPERATIVE SHIVERING; Start 08/05/18 at 17:00 Aspirin (Aspirin) 81 mg DAILY NGT Last administered on 08/21/18 17:29; Admin Dose 81 MG; Start 08/06/18 at 09:00 Multivitamins (Multivitamin) 30 ml DAILY NGT Last administered on 08/20/18 08:54; Admin Dose 30 ML; Start 08/09/18 at 09:00 Zinc Sulfate (Zinc Sulfate) 220 mg DAILY NGT Last administered on 08/20/18 08:54; Admin Dose 220 MG; Start 08/09/18 at 09:00 Folic Acid (Folic Acid) 1 mg DAILY NGT Last administered on 08/20/18 08:54; Admin Dose 1 MG; Start 08/09/18 at 09:00 Ascorbic Acid (Vitamin C) 500 mg DAILY NGT Last administered on 08/20/18 08:54; Admin Dose 500 MG; Start 08/09/18 at 09:00 Albuterol (Ventolin Hfa) 4 puff Q6HWA RESP THERAPY INH Last administered on 08/21/18 13:10; Admin Dose 4 PUFF; Start 08/09/18 at 14:00 Ipratropium [place] (Atrovent Hfa) 4 puff Q6H RESP THERAPY INH Last administered on 08/21/18 13:10; Admin Dose 4 PUFF; Start 08/09/18 at 14:00 IV Flush (NS 10 ml) 10 ml PRN PRN IV IV PROTOCOL; Start 08/11/18 at 16:30 Lansoprazole (Prevacid) 30 mg 0600,1800 PEG Last administered on 08/21/18 17:28; Admin Dose 30 MG; Start 08/11/18 at 18:28 Heparin Sodium (Porcine) (Heparin (1000 Units/ml)) 3,000 unit PRN PRN CATHETER Dialysis Last administered on 08/20/18 16:08; Admin Dose 3,000 UNIT; Start 08/12/18 at 14:30 Labetalol HCl (Labetalol) 10 mg Q4H PRN IV ELEVATED SYSTOLIC BP > 180 Last administered on 08/20/18 16:54; Admin Dose 10 MG; Start 08/14/18 at 19:00 Midazolam HCl 50 ml @ 1 mls/hr TITRATE IV Last administered on 08/20/18 00:16; Admin Dose 5 MLS/HR; Start 08/15/18 at 11:00 Hydralazine HCl (Apresoline) 20 mg Q2 PRN IV ELEVATED SYSTOLIC BP Last a dministered on 08/17/18 18:30; Admin Dose 20 MG; Start 08/16/18 at 08:00 Metronidazole 100 ml @ 100 mls/hr Q8 IVPB Last administered on 08/21/18 14:51; Admin Dose 100 MLS/HR; Start 08/16/18 at 22:00 Carvedilol (Coreg) 12.5 mg Q6H PO Last administered on 08/21/18 17:30; Admin Dose 12.5 MG; Start 08/17/18 at 01:00 Docusate Sodium (Colace Liquid Cup) 100 mg BID GTB Last administered on 08/20/18 20:50; Admin Dose 100 MG; Start 08/18/18 at 09:00 Clopidogrel Bisulfate (plaVIX) 75 mg DAILY NGT Last administered on 08/21/18 17:29; Admin Dose 75 MG; Start 08/18/18 at 13:30 Cefazolin Sodium 50 ml @ 100 mls/hr Q24H IVPB Last administered on 08/21/18at 14:34; Admin Dose 100 MLS/HR; Start 08/19/18 at 14:00 Levofloxacin/ Dextrose 50 ml @ 50 mls/hr Q48H IVPB Last administered on 08/21/18at 12:52; Admin Dose 50 MLS/HR; Start 08/19/18 at 12:30 Rifaximin (Xifaxan) 200 mg TID PO Last administered on 08/20/18at 20:50; Admin Dose 200 MG; Start 08/19/18 at 13:00 Allergies: Coded Allergies: Unknown: Unable to obtain (Unverified , 08/04/18) Past Surgical History Past Surgical Hx: no surgical history, other Social History Alcohol Use: none Smoking Status: Never smoker Drug Use: none Exam/Review of Systems Exam Vitals Vital Signs Date Temp Pulse Resp B/P (MAP) Pulse Ox O2 O2 Flow FiO2 Time Delivery Rate 08/21/18 115 22 96 40 17:20 08/21/18 142/87 Mechanical 15:00 (105) Ventilator 08/21/18 97.4 12:00 Intake and Output 08/20/18 08/20/18 08/21/18 1515:00 23:00 07:00 IntakeIntake Total 163.5 ml 257.5 ml 100 ml OutputOutput Total 255 ml 3095 ml 135 ml BalanceBalance -91.5 ml -2837.5 ml -35 ml Results Result Diagram: 08/21/18 0430 08/21/18 0430 Results 24hrs Laboratory Tests Test 08/21/18 04:30 White Blood Count 12.4 H Red Blood Count 3.25 L Hemoglobin 9.1 L Hematocrit 28.7 L Mean Corpuscular Volume 88.3 Mean Corpuscular Hemoglobin 28.0 L Mean Corpuscular Hemoglobin Concent 31.7 L Red Cell Distribution Width 15.8 H Platelet Count 346 # Mean Platelet Volume 14.0 H Immature Granulocytes % 1.400 H Neutrophils % 75.7 Lymphocytes % 12.5 L Monocytes % 7.1 Eosinophils % 2.2 Basophils % 1.1 Nucleated Red Blood Cells % 0.0 Immature Granulocytes # 0.170 H Neutrophils # 9.4 H Lymphocytes # 1.6 Monocytes # 0.9 Eosinophils # 0.3 Basophils # 0.1 Nucleated Red Blood Cells # 0.0 Sodium Level 142 Potassium Level 4.4 Chloride Level 103 Carbon Dioxide Level 27 Anion Gap 12 Blood Urea Nitrogen 69 H Creatinine 3.92 H Est Glomerular Filtrat Rate mL/min 13 L Glucose Level 86 Calcium Level 9.0 Phosphorus Level 6.2 H Magnesium Level 2.1 Medications Medication Current Medications Norepinephrine 250 ml @ 1.875 mls/ hr TITRATE IV Last administered on 08/10/18 00:41; Admin Dose 5.625 MLS/HR; Start 08/04/18 at 23:15 Morphine Sulfate (morphine) 1 mg Q1H PRN IV PAIN Last administered on 08/17/18 18:30; Admin Dose 1 MG; Start 08/04/18 at 23:30 Atorvastatin Calcium (Lipitor) 80 mg DAILY@21 PO Last administered on 08/20/18 20:50; Admin Dose 80 MG; Start 08/05/18 at 21:00 Nitroglycerin/ Dextrose 250 ml @ 1.5 mls/hr TITRATE IV Last administered on 08/05/18 14:22; Admin Dose 72 MLS/HR; Start 08/05/18 at 01:00 Miscellaneous Information 1 ea NOTE XX ; Start 08/05/18 at 09:00 Acetaminophen (Tylenol Supp) 650 mg Q4H PRN MT TEMP > 37C Last administered on 08/09/18 04:37; Admin Dose 650 MG; Start 08/05/18 at 11:00 Acetaminophen (Tylenol Liquid) 650 mg Q4H PRN PO TEMP > 37C Last administered on 08/20/18 20:56; Admin Dose 650 MG; Start 08/05/18 at 11:00 Meperidine HCl (Demerol) 25 mg Q4H PRN IV POST OPERATIVE SHIVERING Last administered on 08/05/18 16:31; Admin Dose 25 MG; Start 08/05/18 at 11:00 Eye Lubricant (Akwa Oint) 1 applic Q6 BOTH EYES Last administered on 08/21/18 17:29; Admin Dose 1 APPLIC; Start 08/05/18 at 12:00 Eye Lubricant (Artificial Tears Oph) 2 drop Q6 BOTH EYES Last administered on 08/21/18 17:29; Admin Dose 2 DROP; Start 08/05/18 at 12:00 Insulin Human Regular 100 unit/ Sodium Chloride 100 ml @ 0 mls/hr PER PROTOCOL IV ; Start 08/05/18 at 12:00 Miscellaneous Information (* Miscellaneous Pharmacy Order) Treatment of Hypoglycemia: 1.BG 51... Per protocol XX ; Start 08/05/18 at 12:00 Dextrose (D50w Syringe) 25 ml Q15M PRN IV .DECREASED GLUCOSE; Start 08/05/18 at 12:00 Dextrose (D50w Syringe) 50 ml Q15M PRN IV .DECREASED GLUCOSE; Start 08/05/18 at 12:00 Fentanyl 100 ml @ 2.5 mls/hr TITRATE IV Last administered on 08/21/18 12:24; Admin Dose 5 MLS/HR; Start 08/05/18 at 12:00 Meperidine HCl (Demerol) 12.5 mg Q2H PRN IV POST OPERATIVE SHIVERING; Start 08/05/18 at 17:00 Aspirin (Aspirin) 81 mg DAILY NGT Last administered on 08/21/18 17:29; Admin Dose 81 MG; Start 08/06/18 at 09:00 Multivitamins (Multivitamin) 30 ml DAILY NGT Last administered on 08/20/18 08:5 4; Admin Dose 30 ML; Start 08/09/18 at 09:00 Zinc Sulfate (Zinc Sulfate) 220 mg DAILY NGT Last administered on 08/20/18 08:54; Admin Dose 220 MG; Start 08/09/18 at 09:00 Folic Acid (Folic Acid) 1 mg DAILY NGT Last administered on 08/20/18 08:54; Admin Dose 1 MG; Start 08/09/18 at 09:00 Ascorbic Acid (Vitamin C) 500 mg DAILY NGT Last administered on 08/20/18 08:54; Admin Dose 500 MG; Start 08/09/18 at 09:00 Albuterol (Ventolin Hfa) 4 puff Q6HWA RESP THERAPY INH Last administered on 08/21/18 13:10; Admin Dose 4 PUFF; Start 08/09/18 at 14:00 Ipratropium [place] (Atrovent Hfa) 4 puff Q6H RESP THERAPY INH Last administered on 08/21/18 13:10; Admin Dose 4 PUFF; Start 08/09/18 at 14:00 IV Flush (NS 10 ml) 10 ml PRN PRN IV IV PROTOCOL; Start 08/11/18 at 16:30 Lansoprazole (Prevacid) 30 mg 0600,1800 PEG Last administered on 08/21/18 17:28; Admin Dose 30 MG; Start 08/11/18 at 18:28 Heparin Sodium (Porcine) (Heparin (1000 Units/ml)) 3,000 unit PRN PRN CATHETER Dialysis Last administered on 08/20/18 16:08; Admin Dose 3,000 UNIT; Start 08/12/18 at 14:30 Labetalol HCl (Labetalol) 10 mg Q4H PRN IV ELEVATED SYSTOLIC BP > 180 Last administered on 08/20/18 16:54; Admin Dose 10 MG; Start 08/14/18 at 19:00 Midazolam HCl 50 ml @ 1 mls/hr TITRATE IV Last administered on 08/20/18 00:16; Admin Dose 5 MLS/HR; Start 08/15/18 at 11:00 Hydralazine HCl (Apresoline) 20 mg Q2 PRN IV ELEVATED SYSTOLIC BP Last administered on 08/17/18 18:30; Admin Dose 20 MG; Start 08/16/18 at 08:00 Metronidazole 100 ml @ 100 mls/hr Q8 IVPB Last administered on 08/21/18 14:51; Admin Dose 100 MLS/HR; Start 08/16/18 at 22:00 Carvedilol (Coreg) 12.5 mg Q6H PO Last administered on 08/21/18 17:30; Admin Dose 12.5 MG; Start 08/17/18 at 01:00 Docusate Sodium (Colace Liquid Cup) 100 mg BID GTB Last administered on 08/20/18 20:50; Admin Dose 100 MG; Start 08/18/18 at 09:00 Clopidogrel Bisulfate (plaVIX) 75 mg DAILY NGT Last administered on 08/21/18 17:29; Admin Dose 75 MG; Start 08/18/18 at 13:30 Cefazolin Sodium 50 ml @ 100 mls/hr Q24H IVPB Last administered on 08/21/18 14:34; Admin Dose 100 MLS/HR; Start 08/19/18 at 14:00 Levofloxacin/ Dextrose 50 ml @ 50 mls/hr Q48H IVPB Last administered on 08/21at 12:52; Admin Dose 50 MLS/HR; Start 08/19/18 at 12:30 Rifaximin (Xifaxan) 200 mg TID PO Last administered on 08/20/18at 20:50; Admin Dose 200 MG; Start 08/19/18 at 13:00 TIEN HENRY Aug 21, 2018 18:18
[2018-08-21] MEDS: ATORVASTATIN 80 MG TAB PO SCH (21:40)
[2018-08-22] VITALS (50 sets, daily range): BP systolic 85–179; BP diastolic 59–121; PULSE 110–140; RESP 0–33
[2018-08-22] MEDS: ACETAMINOPHEN 650MG/20.3ML CUP PO PRN ×2 (00:39→20:04)
[2018-08-22] MEDS: ARTIFICIAL TEARS 15 ML OPH BOTH EYES SCH ×5 (00:39→23:30)
[2018-08-22] MEDS: OCULAR LUBRICANT 3.5 GM OPH OINT BOTH EYES SCH ×5 (00:39→23:30)
[2018-08-22] MEDS: IPRATROPIUM (HFA) 12.9 GM INHALER INH SCH ×4 (01:33→20:47)
[2018-08-22] MEDS: LANSOPRAZOLE 30 MG CAP PEG SCH ×2 (05:17→17:19)
[2018-08-22] MEDS: metroNIDAZOLE 500 MG/NS (PMX) 100 ML IVPB SCH ×3 (05:17→21:37)
--- NOTE | 2018-08-22 07:02 | CONS ---
Consult Date/Type/Reason Admit Date/Time Aug 04, 2018 at 23:10 Initial Consult Date 08/05/18 Type of Consultation: cv Requesting Provider: HARPAL AGGARWAL MD Date/Time of Note DATE: 08/22/18 TIME: 06:58 Subjective Interventional cardiology follow-up progress note/critical care Subjective: Events noted discussed with the staff and physicians. d/w family Patient remains intubated on the vent . No V tachycardia or V fibrillation. BP is stable but pt is more tachycardic when weaning the sedation pt with less oral and nasopharyngeal bleeding events noted s/p PCI 100% occluded LAD 08/04 S/P PCI LCX/ OM Objective: General: Obese female started with intubation on the vent HEENT: NC/AT. pupils are equal. round. NECK: . no stridor. CV: RRR. systolic murmur; no gallop or rubs. PULM: no wheezing + diffuse rhonchi. GI: Obese SOFT, NT, ND, no rebound or guarding s/pPEG Extremity: +B/L LE edema. no clubbing. neuro: opens her eyes Psych: Calm now rectal: deferred EKG August 06, 2018 was personally within normal sinus rhythm. T wave inversions anterior and inferior leads ECG 08/07: NSR ST T abn c/w ant/lat ischemia CXR 08/14: Nonspecific patchy bilateral pulmonary opacity, mildly improved on the right. No pneumothorax. Endotracheal tube, nasogastric tube, and right-sided PICC line remain in place. Stable mild cardiomegaly. The osseous structures are remarkable for degenerative enthesopathy of the spine. Chest x-ray done August 06 shows:No evidence for active cardiopulmonary disease. CXR 08/19: Diffuse bilateral reticular nodular infiltrates unchanged. Question bronchopneumonia versus failure. ECHO personally reviewed Normal left ventricular cavity size. Normal left ventricular wall thickness. Ejection fraction is visually estimated at 55-65 %. Normal appearance of the mitral valve. Mitral valve is not well visualized. No mitral valve regurgitation is seen. Aortic valve not well visualized. No aortic regurgitation. Normal appearance of the tricuspid valve. Unable to obtain RVSP due to minimal presence of tricuspid regurgitation. No evidence of tricuspid regurgitation. Normal pericardium with no significant pericardial effusion. suboptimal study. Objective Vitals Vital Signs Date Temp Pulse Resp B/P (MAP) Pulse Ox O2 O2 Flow FiO2 Time Delivery Rate 08/22/18 113 22 99 40 05:45 08/22/18 134/85 Mechanical 03:00 (101) Ventilator 08/22/18 99.0 01:24 Intake and Output 08/21/18 08/21/18 08/22/18 1414:59 22:59 06:59 IntakeIntake Total 137.5 ml 390 ml 35 ml OutputOutput Total 55 ml 75 ml 150 ml BalanceBalance 82.5 ml 315 ml -115 ml Results/Medications Result Diagram: 08/22/18 0345 08/22/18 0345 Results 24 hrs Laboratory Tests Test 08/22/18 03:45 White Blood Count 12.5 H Red Blood Count 3.26 L Hemoglobin 9.1 L Hematocrit 29.2 L Mean Corpuscular Volume 89.6 Mean Corpuscular Hemoglobin 27.9 L Mean Corpuscular Hemoglobin Concent 31.2 L Red Cell Distribution Width 15.7 H Platelet Count 397 Mean Platelet Volume 13.9 H Immature Granulocytes % 1.400 H Neutrophils % 75.1 Lymphocytes % 14.8 L Monocytes % 5.8 Eosinophils % 2.1 Basophils % 0.8 Nucleated Red Blood Cells % 0.0 Immature Granulocytes # 0.180 H Neutrophils # 9.4 H Lymphocytes # 1.9 Monocytes # 0.7 Eosinophils # 0.3 Basophils # 0.1 Nucleated Red Blood Cells # 0.0 Sodium Level 143 Potassium Level 5.4 H Chloride Level 103 Carbon Dioxide Level 23 Anion Gap 17 H Blood Urea Nitrogen 96 H Creatinine 5.10 H Est Glomerular Filtrat Rate mL/min 9 L Glucose Level 83 Calcium Level 8.7 Phosphorus Level 9.2 #H Magnesium Level 2.2 Medications Current Medications Norepinephrine 250 ml @ 1.875 mls/ hr TITRATE IV Last administered on 08/10/18at 00:41; Admin Dose 5.625 MLS/HR; Start 08/04/18 at 23:15 Morphine Sulfate (morphine) 1 mg Q1H PRN IV PAIN Last administered on 08/17/18at 18:30; Admin Dose 1 MG; Start 08/04/18 at 23:30 Atorvastatin Calcium (Lipitor) 80 mg DAILY@21 PO Last administered on 08/21/18at 21:40; Admin Dose 80 MG; Start 08/05/18 at 21:00 Nitroglycerin/ Dextrose 250 ml @ 1.5 mls/hr TITRATE IV Last administered on 08/05/18at 14:22; Admin Dose 72 MLS/HR; Start 08/05/18 at 01:00 Miscellaneous Information 1 ea NOTE XX ; Start 08/05/18 at 09:00 Acetaminophen (Tylenol Supp) 650 mg Q4H PRN ME TEMP > 37C Last administered on 08/09/18at 04:37; Admin Dose 650 MG; Start 08/05/18 at 11:00 Acetaminophen (Tylenol Liquid) 650 mg Q4H PRN PO TEMP > 37C Last administered on 08/22/18at 00:39; Admin Dose 650 MG; Start 08/05/18 at 11:00 Meperidine HCl (Demerol) 25 mg Q4H PRN IV POST OPERATIVE SHIVERING Last administered on 08/05/18at 16:31; Admin Dose 25 MG; Start 08/05/18 at 11:00 Eye Lubricant (Akwa Oint) 1 applic Q6 BOTH EYES Last administered on 08/22/18at 05:17; Admin Dose 1 APPLIC; Start 08/05/18 at 12:00 Eye Lubricant (Artificial Tears Oph) 2 drop Q6 BOTH EYES Last administered on 08/22/18at 05:17; Admin Dose 2 DROP; Start 08/05/18 at 12:00 Insulin Human Regular 100 unit/ Sodium Chloride 100 ml @ 0 mls/hr PER PROTOCOL IV ; Start 08/05/18 at 12:00 Miscellaneous Information (* Miscellaneous Pharmacy Order) Treatment of Hypoglycemia: 1.BG 51... Per protocol XX ; Start 08/05/18 at 12:00 Dextrose (D50w Syringe) 25 ml Q15M PRN IV .DECREASED GLUCOSE; Start 08/05/18 at 12:00 Dextrose (D50w Syringe) 50 ml Q15M PRN IV .DECREASED GLUCOSE; Start 08/05/18 at 12:00 Fentanyl 100 ml @ 2.5 mls/hr TITRATE IV Last administered on 08/21/18at 12:24; Admin Dose 5 MLS/HR; Start 08/05/18 at 12:00 Meperidine HCl (Demerol) 12.5 mg Q2H PRN IV POST OPERATIVE SHIVERING; Start 08/05/18 at 17:00 Aspirin (Aspirin) 81 mg DAILY NGT Last administered on 08/21/18 17:29; Admin Dose 81 MG; Start 08/06/18 at 09:00 Multivitamins (Multivitamin) 30 ml DAILY NGT Last administered on 08/20/18 08:54; Admin Dose 30 ML; Start 08/09/18 at 09:00 Zinc Sulfate (Zinc Sulfate) 220 mg DAILY NGT Last administered on 08/20/18 08:54; Admin Dose 220 MG; Start 08/09/18 at 09:00 Folic Acid (Folic Acid) 1 mg DAILY NGT Last administered on 08/20/18 08:54; Admin Dose 1 MG; Start 08/09/18 at 09:00 Ascorbic Acid (Vitamin C) 500 mg DAILY NGT Last administered on 08/20/18 08:54; Admin Dose 500 MG; Start 08/09/18 at 09:00 Albuterol (Ventolin Hfa) 4 puff Q6HWA RESP THERAPY INH Last administered on 08/21/18 19:42; Admin Dose 4 PUFF; Start 08/09/18 at 14:00 Ipratropium [place] (Atrovent Hfa) 4 puff Q6H RESP THERAPY INH Last administered on 08/22/18 01:33; Admin Dose 4 PUFF; Start 08/09/18 at 14:00 IV Flush (NS 10 ml) 10 ml PRN PRN IV IV PROTOCOL; Start 08/11/18 at 16:30 Lansoprazole (Prevacid) 30 mg 0600,1800 PEG Last administered on 08/22/18 05:17; Admin Dose 30 MG; Start 08/11/18 at 18:28 Heparin Sodium (Porcine) (Heparin (1000 Units/ml)) 3,000 unit PRN PRN CATHETER Dialysis Last administered on 08/20/18 16:08; Admin Dose 3,000 UNIT; Start 08/12/18 at 14:30 Labetalol HCl (Labetalol) 10 mg Q4H PRN IV ELEVATED SYSTOLIC BP > 180 Last administered on 08/20/18 16:54; Admin Dose 10 MG; Start 08/14/18 at 19:00 Midazolam HCl 50 ml @ 1 mls/hr TITRATE IV Last administered on 08/20/18 00:16; Admin Dose 5 MLS/HR; Start 08/15/18 at 11:00 Hydralazine HCl (Apresoline) 20 mg Q2 PRN IV ELEVATED SYSTOLIC BP Last administered on 08/17/18 18:30; Admin Dose 20 MG; Start 08/16/18 at 08:00 Metronidazole 100 ml @ 100 mls/hr Q8 IVPB Last administered on 08/22/18 05:17; Admin Dose 100 MLS/HR; Start 08/16/18 at 22:00 Carvedilol (Coreg) 12.5 mg Q6H PO Last administered on 08/22/18 00:39; Admin Dose 12.5 MG; Start 08/17/18 at 01:00 Docusate Sodium (Colace Liquid Cup) 100 mg BID GTB Last administered on 08/21 21:40; Admin Dose 100 MG; Start 08/18/18 at 09:00 Clopidogrel Bisulfate (plaVIX) 75 mg DAILY NGT Last administered on 08/21/18 17:29; Admin Dose 75 MG; Start 08/18/18 at 13:30 Cefazolin Sodium 50 ml @ 100 mls/hr Q24H IVPB Last administered on 08/21/18 14:34; Admin Dose 100 MLS/HR; Start 08/19/18 at 14:00 Levofloxacin/ Dextrose 50 ml @ 50 mls/hr Q48H IVPB Last administered on 08/21/18 12:52; Admin Dose 50 MLS/HR; Start 08/19/18 at 12:30 Rifaximin (Xifaxan) 200 mg TID PO Last administered on 08/21/18 21:40; Admin Dose 200 MG; Start 08/19/18 at 13:00 Assessment/Plan Hospital Course (Demo Recall) 1. s/p V. fib cardiac arrest 2. Acute myocardial infarction 3. Status post emergent PCI of the 100% occluded LAD as well as PTCA of the diagonal and PCI LCX/ OM 4. Diabetes 5. Respiratory failure status post intubation on the vent 6. Hypertension 7. Renal failure : acute on chronic 8. Likely history of congestive heart failure 9. Dyslipidemia 10. Encephalopathy: Clear anoxic brain injury on hypothermia protocol 11. Morbid obesity 12. Anemia 13. elevated LFT 14. fever, bacteremia pneumonia 15. Malnutrition, anasarca . 16. septic shock and bacteremia 17. oropharyngeal bleedig 18. CVA Recommendations: Continue with aspirin plavix Brilinta was changed to plavix due to recurrent oropharyngeal bleeding as well as patient currently with renal failure on dialysis. BUT will be at high risk of stent thrombosis if stop the plavix . advised not to stop the plavix Antibiotic management as per ID recommendation HD as per renal Vent support respiratory care as per internal medicine and pulmonary consultants. AWAITING Trach cont Coreg as tolerated/needed Monitor renal function. f/u renal consult rec regarding hemodialysis PPI . Transfusion prn given her severe anemia and PR/ VF pt still has a high grade 90% proximal RCA Stenosis. WILL consider PCI RCA at a later time if it is felt by renal that renal function is not expected to recover More than 33 minutes of critical care time was for management treatment is critically patient excluding any procedures Thank you for his referral. We will continue to follow along with you LOIS JOHNSON MD [facility] LOIS JOHNSON MD Aug 22, 2018 07:02
[2018-08-22] MEDS: FENTAnyl (DRIP) 1000 mcg/100mL 100 ML IV SCH (07:07)
--- NOTE | 2018-08-22 07:11 | CONS ---
Assessment/Plan Assessment/Plan Hospital Course 38 yo F w/ reported Hx of HTN and DM2 who is admitted to the [facility] ICU s/p a vfib cardiac arrest. She is now s/p cardiac catheterization w/ 2 coronary stents. now s/p targeted temperature therapy. Neurology is consulted given persistent encephalopathy...which is likely multifactorial -- toxic-metabolic, medications, hypoxic-ischemic MRI brain is notable for multiple bihemispheric infarcts... likely of cardioembolic origin in the context of her recent arrest. EEG is without epileptiform activity CUS is unrevealing. Ammonia, RPR level wnl. ESR >130 Echo on 08/05 in unrevealing. P: Await hypercoag panel; defer CTA for now given poor renal function Cont ASA/Lipitor for secondary stroke prevention Cont medical management per primary Will follow clinically Consultation Date/Type/Reason Admit Date/Time Aug 04, 2018 at 23:10 Type of Consult Neurology Reason for Consultation stroke, coma Requesting Provider: HARPAL AGGARWAL MD Date/Time of Note DATE: 08/22/18 TIME: 07:10 24 HR Interval Summary Free Text/Dictation Continues icu care Exam Vital Signs Vitals Vital Signs Date Temp Pulse Resp B/P (MAP) Pulse Ox O2 O2 Flow FiO2 Time Delivery Rate 08/22/18 116 27 114/72 100 Mechanical 06:00 (86) Ventilator 08/22/18 40 05:45 08/22/18 99.4 04:00 Intake and Output 08/21/18 08/21/18 08/22/18 1515:00 23:00 07:00 IntakeIntake Total 192.5 ml 340 ml 35 ml OutputOutput Total 55 ml 75 ml 150 ml BalanceBalance 137.5 ml 265 ml -115 ml Exam PE: Gen Appearance: No Apparent Distress HEENT: Intubated Cardiovascular: Regular rate Abdomen: Soft Extremities: Dry NE: The patient was lethargic and nonverbal...but able to follow axial commands. Cranial nerve examination was limited by mental status. Eyes were dysconjugate.. Pupils were equal and reactive to light. There was no afferent pupillary defect. Funduscopic examination was limited. Face was grossly symmetric, w/ present corneal and cough reflexes. Tone was normal. Muscle bulk was normal. I did not see fasciculations. The patient withdrew to noxious. Coordination and gait testing was limited by mental status. Arm and leg reflexes were within normal limits and symmetric. Alvarez's sign was absent. Plantar responses were flexor. RANDY GARCIA Aug 22, 2018 07:11
[2018-08-22] MEDS: MULTIVITAMINS 30 ML CUP NGT SCH (08:03)
[2018-08-22] MEDS: ASCORBIC ACID 500 MG TAB NGT SCH (08:03)
[2018-08-22] MEDS: DOCUSATE SODIUM 10 MG/ML (10ML CUP) GTB SCH ×2 (08:03→20:03)
[2018-08-22] MEDS: FOLIC ACID 1 MG TAB NGT SCH (08:03)
[2018-08-22] MEDS: RIFAXIMIN 200 MG TAB PO SCH ×3 (08:03→20:08)
[2018-08-22] MEDS: ZINC SULFATE 220 MG CAP NGT SCH (08:03)
--- NOTE | 2018-08-22 08:17 | PN ---
DATE: 08/22/2018 SUBJECTIVE: The patient remains in critical but stable condition. The patient remains on full venti latory support. No other events noted. OBJECTIVE: VITAL SIGNS: Blood pressure is 126/81, pulse 121, respirations 28, temperature 99.6. HEENT: Head is normocephalic. NECK: Supple. HEART: Tachycardiac. LUNGS: Show diminished breath sounds at the base. ABDOMEN: Soft, nontender to palpation without rebound or guarding. EXTREMITIES: Negative for clubbing, cyanosis, no edema. DERMATOLOGIC: No rashes. MUSCULOSKELETAL: No joint effusion. NEUROLOGIC: No change in exam. MEDICATIONS: Reviewed. LABORATORY DATA: From 08/22/2018 was reviewed. IMAGING STUDIES: Reviewed. ASSESSMENT AND PLAN: 1. Anuric acute kidney injury with unknown baseline creatinine. Etiology is secondary to acute tubu lar necrosis. The patient is currently dialysis dependent. Plan is for hemodialysis today for solut e clearance and volume removal. 2. Volume overload. Continue ultrafiltration with hemodialysis. 3. Anemia. Monitor hemoglobin and hematocrit levels. We will give Epogen as needed. 4. Mineral bone disorder. The patient remains hyperphosphatemic, continue dialysis for solute clear ance. We will start patient on phosphate binders. 5. Ventilator dependent respiratory failure. Vent settings and ABG was reviewed. Continue to monit or. 6. Status post cardiac arrest. 7. Coronary artery disease with elevated myocardial infarction. The patient is status post cardiac catheterization with PCI. Continue medical management. 8. Sepsis status post shock. Continue current antibiotic regimen. 9. Acute encephalopathy, etiology is toxic metabolic secondary to acute cerebrovascular accident. C ontinue current medical management and monitor. 10. Gastrointestinal and deep vein thrombosis prophylaxis. 11. Dysphagia, status post PEG. Resume tube feeding. 12. Morbid obesity. Dictated By: BHUMI REDDY DO NR/NTS Conf#: [id number] DID#: [id number] CC: LAUREN GREWAL MD; DANIAL TUCKER MD; THOMAS RILEY MD;*EndCC*
--- NOTE | 2018-08-22 08:45 | PN ---
Date/Time of Note Date/Time of Note DATE: 08/22/18 TIME: 08:45 Assessment/Plan VTE Prophylaxis Risk score (from Nsg)>0 risk: 8 SCD applied (from Nsg): Yes Pharmacological prophylaxis: other Lines/Catheters IV Catheter Type (from Nrsg): Central Line Central line still needed: Yes Urinary Cath still in place: Yes Reason Cath still needed: terminal illness/intractable pain Assessment/Plan Assessment/Plan 1. Acute hypoxic respiratory failure- remains intubated - Pulm on board for vent management. appreciate consultation - CT surgery consulted for trach placement and appreciate consultation - Gi consultation appreciated for PEG placement 2. Acute toxic/metabolic encephalopathy - patient opening eyes but not following commands - Neurology on board and appreciate recommendations. Imaging of head noted with bilateral CVA and most likely component of anoxic encephalopathy due to cardiac arrest - Continue monitoring for improvement in mentation 3. Bilateral CVA - Found on MRI, likely thromboembolic secondary to cardiopulmonary arrest per neurology - Neuro input appreciated and on anticoagulation 4. Anemia, blood loss and renal disease- stable - no further episodes of bleeding appreciated. - ENT consultation appreciated. - Hgb remains stable and no need for transfusion at this time 5. Bilateral Pneumonia - CXR noted - Pulm on board and appreciate recommendations. Will continue current management 6. Septic shock secondary to PNA and bacteremia - WBC trending down - Blood cultures and sputum culture results noted. - ID on board 7. Left auditory canal bleeding- resolved - on Cipro ear drops 8. Sinus infection - Continue IV antibiotics and eardrops - ID recommendations appreciated 9. CAD s/p PCI x2 - Cardiology on board and appreciate recommendations. Stressed importance of continuing DAPT given recent stent placements and high risk of restenosis - s/p emergent Cath 08/05 with successful PTCA and stenting of proximal and mid LAD, PTCA of the large first diagonal and thrombectomy of the LAD - Repeat PCI on 08/07 performed with stenting to LCx - plans for stenting of RCA prior to discharge if possible 10. Renal failure on HD - Nephrology on board and appreciate recommendations. Continue HD - secondary to septic shock, ATN vs prerenal vs contrast induced nephropathy - will avoid nephrotoxic agents 11. Diabetes - A1c noted and no need to continue accuchecks 12. V-fib cardiac arrest secondary to STEMI - Completed hypothermia protocol - unknown how long patient was down for in the field 13. Disposition - Continue close monitoring in ICU - Trach placement scheduled for today >30 minutes of critical care time spent with patient. Result Diagram: 08/22/18 0345 08/22/18 0345 Results 24hrs Laboratory Tests Test 08/22/18 03:45 White Blood Count 12.5 H Red Blood Count 3.26 L Hemoglobin 9.1 L Hematocrit 29.2 L Mean Corpuscular Volume 89.6 Mean Corpuscular Hemoglobin 27.9 L Mean Corpuscular Hemoglobin Concent 31.2 L Red Cell Distribution Width 15.7 H Platelet Count 397 Mean Platelet Volume 13.9 H Immature Granulocytes % 1.400 H Neutrophils % 75.1 Lymphocytes % 14.8 L Monocytes % 5.8 Eosinophils % 2.1 Basophils % 0.8 Nucleated Red Blood Cells % 0.0 Immature Granulocytes # 0.180 H Neutrophils # 9.4 H Lymphocytes # 1.9 Monocytes # 0.7 Eosinophils # 0.3 Basophils # 0.1 Nucleated Red Blood Cells # 0.0 Sodium Level 143 Potassium Level 5.4 H Chloride Level 103 Carbon Dioxide Level 23 Anion Gap 17 H Blood Urea Nitrogen 96 H Creatinine 5.10 H Est Glomerular Filtrat Rate mL/min 9 L Glucose Level 83 Calcium Level 8.7 Phosphorus Level 9.2 #H Magnesium Level 2.2 Subjective 24 Hr Interval Summary Free Text/Dictation Patient opening eyes but not following commands. No acute overnight events. Plans for tracheostomy today. Exam/Review of Systems Exam Vitals Vital Signs Date Temp Pulse Resp B/P (MAP) Pulse Ox O2 O2 Flow FiO2 Time Delivery Rate 08/22/18 99.6 121 28 126/81 100 Mechanical 07:00 (96) Ventilator 08/22/18 40 05:45 Intake and Output 08/21/18 08/21/18 08/22/18 1515:00 23:00 07:00 IntakeIntake Total 192.5 ml 340 ml 35 ml OutputOutput Total 55 ml 75 ml 150 ml BalanceBalance 137.5 ml 265 ml -115 ml Exam General: Patient is laying in bed intubated. opens eyes but not following commands Eyes: EOMI, pupils reactive to light Neck: Supple, nontender, midline Respiratory: Diminished breath sounds. no wheezing appreciated Cardiovascular: regular rhythm, tachycardia, no obvious murmurs Gastrointestinal: soft, non-tender to palpation, bowel sounds heard. Skin: No new skin lesions Results Results 24hrs Laboratory Tests Test 08/22/18 03:45 White Blood Count 12.5 H Red Blood Count 3.26 L Hemoglobin 9.1 L Hematocrit 29.2 L Mean Corpuscular Volume 89.6 Mean Corpuscular Hemoglobin 27.9 L Mean Corpuscular Hemoglobin Concent 31.2 L Red Cell Distribution Width 15.7 H Platelet Count 397 Mean Platelet Volume 13.9 H Immature Granulocytes % 1.400 H Neutrophils % 75.1 Lymphocytes % 14.8 L Monocytes % 5.8 Eosinophils % 2.1 Basophils % 0.8 Nucleated Red Blood Cells % 0.0 Immature Granulocytes # 0.180 H Neutrophils # 9.4 H Lymphocytes # 1.9 Monocytes # 0.7 Eosinophils # 0.3 Basophils # 0.1 Nucleated Red Blood Cells # 0.0 Sodium Level 143 Potassium Level 5.4 H Chloride Level 103 Carbon Dioxide Level 23 Anion Gap 17 H Blood Urea Nitrogen 96 H Creatinine 5.10 H Est Glomerular Filtrat Rate mL/min 9 L Glucose Level 83 Calcium Level 8.7 Phosphorus Level 9.2 #H Magnesium Level 2.2 Medications Medication Current Medications Norepinephrine 250 ml @ 1.875 mls/ hr TITRATE IV Last administered on 08/10/18at 00:41; Admin Dose 5.625 MLS/HR; Start 08/04/18 at 23:15 Morphine Sulfate (morphine) 1 mg Q1H PRN IV PAIN Last administered on 08/17/18 18:30; Admin Dose 1 MG; Start 08/04/18 at 23:30 Atorvastatin Calcium (Lipitor) 80 mg DAILY@21 PO Last administered on 08/21/18at 21:40; Admin Dose 80 MG; Start 08/05/18 at 21:00 Nitroglycerin/ Dextrose 250 ml @ 1.5 mls/hr TITRATE IV Last administered on 08/05/18at 14:22; Admin Dose 72 MLS/HR; Start 08/05/18 at 01:00 Miscellaneous Information 1 ea NOTE XX ; Start 08/05/18 at 09:00 Acetaminophen (Tylenol Supp) 650 mg Q4H PRN DE TEMP > 37C Last administered on 08/09/18at 04:37; Admin Dose 650 MG; Start 08/05/18 at 11:00 Acetaminophen (Tylenol Liquid) 650 mg Q4H PRN PO TEMP > 37C Last administered on 08/22/18at 00:39; Admin Dose 650 MG; Start 08/05/18 at 11:00 Meperidine HCl (Demerol) 25 mg Q4H PRN IV POST OPERATIVE SHIVERING Last administered on 08/05/18at 16:31; Admin Dose 25 MG; Start 08/05/18 at 11:00 Eye Lubricant (Akwa Oint) 1 applic Q6 BOTH EYES Last administered on 08/22/18 05:17; Admin Dose 1 APPLIC; Start 08/05/18 at 12:00 Eye Lubricant (Artificial Tears Oph) 2 drop Q6 BOTH EYES Last administered on 08/22/18 05:17; Admin Dose 2 DROP; Start 08/05/18 at 12:00 Insulin Human Regular 100 unit/ Sodium Chloride 100 ml @ 0 mls/hr PER PROTOCOL IV ; Start 08/05/18 at 12:00 Miscellaneous Information (* Miscellaneous Pharmacy Order) Treatment of Hypoglycemia: 1.BG 51... Per protocol XX ; Start 08/05/18 at 12:00 Dextrose (D50w Syringe) 25 ml Q15M PRN IV .DECREASED GLUCOSE; Start 08/05/18 at 12:00 Dextrose (D50w Syringe) 50 ml Q15M PRN IV .DECREASED GLUCOSE; Start 08/05/18 at 12:00 Fentanyl 100 ml @ 2.5 mls/hr TITRATE IV Last administered on 08/22/18 07:07; Admin Dose 5 MLS/HR; Start 08/05/18 at 12:00 Meperidine HCl (Demerol) 12.5 mg Q2H PRN IV POST OPERATIVE SHIVERING; Start 08/05/18 at 17:00 Aspirin (Aspirin) 81 mg DAILY NGT Last administered on 08/21/18 17:29; Admin Dose 81 MG; Start 08/06/18 at 09:00 Multivitamins (Multivitamin) 30 ml DAILY NGT Last administered on 08/20/18 08:54; Admin Dose 30 ML; Start 08/09/18 at 09:00 Zinc Sulfate (Zinc Sulfate) 220 mg DAILY NGT Last administered on 08/20/18at 0 8:54; Admin Dose 220 MG; Start 08/09/18 at 09:00 Folic Acid (Folic Acid) 1 mg DAILY NGT Last administered on 08/20/18 08:54; Admin Dose 1 MG; Start 08/09/18 at 09:00 Ascorbic Acid (Vitamin C) 500 mg DAILY NGT Last administered on 08/20/18 08:54; Admin Dose 500 MG; Start 08/09/18 at 09:00 Albuterol (Ventolin Hfa) 4 puff Q6HWA RESP THERAPY INH Last administered on 08/21/18 19:42; Admin Dose 4 PUFF; Start 08/09/18 at 14:00 Ipratropium [place] (Atrovent Hfa) 4 puff Q6H RESP THERAPY INH Last ad ministered on 08/22/18 01:33; Admin Dose 4 PUFF; Start 08/09/18 at 14:00 IV Flush (NS 10 ml) 10 ml PRN PRN IV IV PROTOCOL; Start 08/11/18 at 16:30 Lansoprazole (Prevacid) 30 mg 0600,1800 PEG Last administered on 08/22/18 05:17; Admin Dose 30 MG; Start 08/11/18 at 18:28 Heparin Sodium (Porcine) (Heparin (1000 Units/ml)) 3,000 unit PRN PRN CATHETER Dialysis Last administered on 08/20/18 16:08; Admin Dose 3,000 UNIT; Start 08/12/18 at 14:30 Labetalol HCl (Labetalol) 10 mg Q4H PRN IV ELEVATED SYSTOLIC BP > 180 Last administered on 08/20/18 16:54; Admin Dose 10 MG; Start 08/14/18 at 19:00 Midazolam HCl 50 ml @ 1 mls/hr TITRATE IV Last administered on 08/20/18 00:16; Admin Dose 5 MLS/HR; Start 08/15/18 at 11:00 Hydralazine HCl (Apresoline) 20 mg Q2 PRN IV ELEVATED SYSTOLIC BP Last administ ered on 08/17/18 18:30; Admin Dose 20 MG; Start 08/16/18 at 08:00 Metronidazole 100 ml @ 100 mls/hr Q8 IVPB Last administered on 08/22/18 05:17; Admin Dose 100 MLS/HR; Start 08/16/18 at 22:00 Carvedilol (Coreg) 12.5 mg Q6H PO Last administered on 08/22/18 07:03; Admin Dose 12.5 MG; Start 08/17/18 at 01:00 Docusate Sodium (Colace Liquid Cup) 100 mg BID GTB Last administered on 08/21/18 21:40; Admin Dose 100 MG; Start 08/18/18 at 09:00 Clopidogrel Bisulfate (plaVIX) 75 mg DAILY NGT Last administered on 08/21/18 17:29; Admin Dose 75 MG; Start 08/18/18 at 13:30 Cefazolin Sodium 50 ml @ 100 mls/hr Q24H IVPB Last administered on 08/21/18 14:34; Admin Dose 100 MLS/HR; Start 08/19/18 at 14:00 Levofloxacin/ Dextrose 50 ml @ 50 mls/hr Q48H IVPB Last administered on 08/21/18 12:52; Admin Dose 50 MLS/HR; Start 08/19/18 at 12:30 Rifaximin (Xifaxan) 200 mg TID PO Last administered on 08/21/18 21:40; Admin Dose 200 MG; Start 08/19/18 at 13:00 THOMAS RILEY MD Aug 22, 2018 08:45
[2018-08-22] MEDS: ALBUTEROL HFA 8 GM INHALER INH SCH ×3 (08:49→20:48)
[2018-08-22] MEDS ORDERED: ALBUMIN HUMAN 25% 100 ML ONE (09:46)
[2018-08-22] MEDS ORDERED: ALBUMIN HUMAN 25% 100 ML IV PRN (10:00)
--- NOTE | 2018-08-22 10:55 | CONS ---
Consult Date/Type/Reason Admit Date/Time Aug 04, 2018 at 23:10 Initial Consult Date 08/05/18 Type of Consult Pulmonary Requesting Provider: HARPAL AGGARWAL MD Date/Time of Note DATE: 08/22/18 TIME: 10:54 Subjective Patient remained stable on mechanical ventilation. Pending tracheostomy today. Objective Vital Signs Date Temp Pulse Resp B/P (MAP) Pulse Ox O2 O2 Flow FiO2 Time Delivery Rate 08/22/18 121 20 103/70 100 Mechanical 10:00 (81) Ventilator 08/22/18 40 08:00 08/22/18 99.6 07:00 Intake and Output 08/21/18 08/21/18 08/22/18 1515:00 23:00 07:00 IntakeIntake Total 192.5 ml 340 ml 135 ml OutputOutput Total 55 ml 75 ml 150 ml BalanceBalance 137.5 ml 265 ml -15 ml Exam GENERAL: Well-nourished well-developed lady orally intubated on mechanical ventilation VITAL SIGNS: per chart NECK: Supple. No JVD or lymphadenopathy. CARDIAC EXAM: S1, S2. No added sounds or murmurs. CHEST: Diminished air entry bilaterally ABDOMEN: Mildly distended but no guarding or rebound EXTREMITIES: No cyanosis, clubbing edema +2 NEUROLOGIC: Generalized weakness. Vent Setting Ventilator Support Mode: AC Fraction of Inspired Oxygen pe: 40 Positive End Expiratory Pressu: 5.0 Results/Medications Result Diagram: 08/22/18 0345 08/22/18 0345 Results 24 hrs Laboratory Tests Test 08/22/18 03:45 White Blood Count 12.5 H Red Blood Count 3.26 L Hemoglobin 9.1 L Hematocrit 29.2 L Mean Corpuscular Volume 89.6 Mean Corpuscular Hemoglobin 27.9 L Mean Corpuscular Hemoglobin Concent 31.2 L Red Cell Distribution Width 15.7 H Platelet Count 397 Mean Platelet Volume 13.9 H Immature Granulocytes % 1.400 H Neutrophils % 75.1 Lymphocytes % 14.8 L Monocytes % 5.8 Eosinophils % 2.1 Basophils % 0.8 Nucleated Red Blood Cells % 0.0 Immature Granulocytes # 0.180 H Neutrophils # 9.4 H Lymphocytes # 1.9 Monocytes # 0.7 Eosinophils # 0.3 Basophils # 0.1 Nucleated Red Blood Cells # 0.0 Sodium Level 143 Potassium Level 5.4 H Chloride Level 103 Carbon Dioxide Level 23 Anion Gap 17 H Blood Urea Nitrogen 96 H Creatinine 5.10 H Est Glomerular Filtrat Rate mL/min 9 L Glucose Level 83 Calcium Level 8.7 Phosphorus Level 9.2 #H Magnesium Level 2.2 Medications Current Medications Norepinephrine 250 ml @ 1.875 mls/ hr TITRATE IV Last administered on 08/10/18 00:41; Admin Dose 5.625 MLS/HR; Start 08/04/18 at 23:15 Morphine Sulfate (morphine) 1 mg Q1H PRN IV PAIN Last administered on 08/17/18 18:30; Admin Dose 1 MG; Start 08/04/18 at 23:30 Atorvastatin Calcium (Lipitor) 80 mg DAILY@21 PO Last administered on 08/21/18 21:40; Admin Dose 80 MG; Start 08/05/18 at 21:00 Nitroglycerin/ Dextrose 250 ml @ 1.5 mls/hr TITRATE IV Last administered on 08/05/18 14:22; Admin Dose 72 MLS/HR; Start 08/05/18 at 01:00 Miscellaneous Information 1 ea NOTE XX ; Start 08/05/18 at 09:00 Acetaminophen (Tylenol Supp) 650 mg Q4H PRN SC TEMP > 37C Last administered on 08/09/18at 04:37; Admin Dose 650 MG; Start 08/05/18 at 11:00 Acetaminophen (Tylenol Liquid) 650 mg Q4H PRN PO TEMP > 37C Last administered on 08/22/18 00:39; Admin Dose 650 MG; Start 08/05/18 at 11:00 Meperidine HCl (Demerol) 25 mg Q4H PRN IV POST OPERATIVE SHIVERING Last administered on 08/05/18 16:31; Admin Dose 25 MG; Start 08/05/18 at 11:00 Eye Lubricant (Akwa Oint) 1 applic Q6 BOTH EYES Last administered on 08/22/18 05:17; Admin Dose 1 APPLIC; Start 08/05/18 at 12:00 Eye Lubricant (Artificial Tears Oph) 2 drop Q6 BOTH EYES Last administered on 08/22/18 05:17; Admin Dose 2 DROP; Start 08/05/18 at 12:00 Insulin Human Regular 100 unit/ Sodium Chloride 100 ml @ 0 mls/hr PER PROTOCOL IV ; Start 08/05/18 at 12:00 Miscellaneous Information (* Miscellaneous Pharmacy Order) Treatment of Hypoglycemia: 1.BG 51... Per protocol XX ; Start 08/05/18 at 12:00 Dextrose (D50w Syringe) 25 ml Q15M PRN IV .DECREASED GLUCOSE; Start 08/05/18 at 12:00 Dextrose (D50w Syringe) 50 ml Q15M PRN IV .DECREASED GLUCOSE; Start 08/05/18 at 12:00 Fentanyl 100 ml @ 2.5 mls/hr TITRATE IV Last administered on 08/22/18 07:07; Admin Dose 5 MLS/HR; Start 08/05/18 at 12:00 Meperidine HCl (Demerol) 12.5 mg Q2H PRN IV POST OPERATIVE SHIVERING; Start 08/05/18 at 17:00 Aspirin (Aspirin) 81 mg DAILY NGT Last administered on 08/21/18 17:29; Admin Dose 81 MG; Start 08/06/18 at 09:00 Multivitamins (Multivitamin) 30 ml DAILY NGT Last administered on 08/20/18 08:54; Admin Dose 30 ML; Start 08/09/18 at 09:00 Zinc Sulfate (Zinc Sulfate) 220 mg DAILY NGT Last administered on 08/20/18 08:54; Admin Dose 220 MG; Start 08/09/18 at 09:00 Folic Acid (Folic Acid) 1 mg DAILY NGT Last administered on 08/20/18 08:54; Admin Dose 1 MG; Start 08/09/18 at 09:00 Ascorbic Acid (Vitamin C) 500 mg DAILY NGT Last administered on 08/20/18 08:54; Admin Dose 500 MG; Start 08/09/18 at 09:00 Albuterol (Ventolin Hfa) 4 puff Q6HWA RESP THERAPY INH Last administered on 08/22/18 08:49; Admin Dose 4 PUFF; Start 08/09/18 at 14:00 Ipratropium [place] (Atrovent Hfa) 4 puff Q6H RESP THERAPY INH Last administered on 08/22/18 08:48; Admin Dose 4 PUFF; Start 08/09/18 at 14:00 IV Flush (NS 10 ml) 10 ml PRN PRN IV IV PROTOCOL; Start 08/11/18 at 16:30 Lansoprazole (Prevacid) 30 mg 0600,1800 PEG Last administered on 08/22/18 05:17; Admin Dose 30 MG; Start 08/11/18 at 18:28 Heparin Sodium (Porcine) (Heparin (1000 Units/ml)) 3,000 unit PRN PRN CATHETER Dialysis Last administered on 08/20/18 16:08; Admin Dose 3,000 UNIT; Start 08/12/18 at 14:30 Labetalol HCl (Labetalol) 10 mg Q4H PRN IV ELEVATED SYSTOLIC BP > 180 Last administered on 08/20/18 16:54; Admin Dose 10 MG; Start 08/14/18 at 19:00 Midazolam HCl 50 ml @ 1 mls/hr TITRATE IV Last administered on 08/20/18 00:16; Admin Dose 5 MLS/HR; Start 08/15/18 at 11:00 Hydralazine HCl (Apresoline) 20 mg Q2 PRN IV ELEVATED SYSTOLIC BP Last administered on 08/17/18 18:30; Admin Dose 20 MG; Start 08/16/18 at 08:00 Metronidazole 100 ml @ 100 mls/hr Q8 IVPB Last administered on 08/22/18 05:17; Admin Dose 100 MLS/HR; Start 08/16/18 at 22:00 Carvedilol (Coreg) 12.5 mg Q6H PO Last administered on 08/22/18 07:03; Admin Dose 12.5 MG; Start 08/17/18 at 01:00 Docusate Sodium (Colace Liquid Cup) 100 mg BID GTB Last administered on 08/21/18 21:40; Admin Dose 100 MG; Start 08/18/18 at 09:00 Clopidogrel Bisulfate (plaVIX) 75 mg DAILY NGT Last administered on 08/21/18 17:29; Admin Dose 75 MG; Start 08/18/18 at 13:30 Cefazolin Sodium 50 ml @ 100 mls/hr Q24H IVPB Last administered on 08/21/18 14:34; Admin Dose 100 MLS/HR; Start 08/19/18 at 14:00 Levofloxacin/ Dextrose 50 ml @ 50 mls/hr Q48H IVPB Last administered on 08/21/18 12:52; Admin Dose 50 MLS/HR; Start 08/19/18 at 12:30 Rifaximin (Xifaxan) 200 mg TID PO Last administered on 08/21/18at 21:40; Admin Dose 200 MG; Start 08/19/18 at 13:00 Albumin Human 100 ml @ 100 mls/hr DURING DIALYSIS PRN IV HYPOTENSION DURING HD Last administered on 08/22/18at 10:24; Admin Dose 100 MLS/HR; Start 08/22/18 at 10:00 Assessment/Plan Hospital Course (Demo Recall) IMP: 1. Ventricular Fibrillation Arrest--s/p ROSC 2/2 STEMI s/p PCI status post hypothermia protocol. Multivessel coronary artery disease status post stent placement x3 2. STEMI, Status post stent x3 placement. 3. CVA multiple infarcts noted. 4. Hypoxemic respiratory failure/ARDS slowly improving. Radiographic improvement noted. 5. HUSEYIN--likely ATN continues hemodialysis 6. Ischemic hepatopathy--2/2 arrest 7. Metabolic acidosis--2/2 arrest 8. Anemia 9 Thrombocytopenia 10. Encephalopathy likely toxic metabolic RECS: 1. Continue mechanical ventilation, scheduled for tracheostomy today. 2. Decrease FiO2 as tolerated low tidal volume strategy if needed 3. Continue tube feeding 4. PEG tube feeding once tracheostomy placed 5. Continue Abx 6. Pulmonary toilet 7. Hemodialysis per nephrology Critical care time 40 minutes. CHINO ANDERSON MD, [facility] Aug 22, 2018 10:55
--- NOTE | 2018-08-22 13:21 | CONS ---
Assessment/Plan Assessment/Plan Assessment/Plan (Daily) Status post V. 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 Overall prognosis for long-term recovery is poor to reach her baseline pre-hospital neurological condition. Consultation Date/Type/Reason Admit Date/Time Aug 04, 2018 at 23:10 Initial Consult Date 08/15/18 Requesting Provider: HARPAL AGGARWAL MD Date/Time of Note DATE: 08/22/18 TIME: 13:18 24 HR Interval Summary Free Text/Dictation There is been no change in overall clinical condition overnight. She remains stable off pressors, still intubated on 40% FiO2. Exam/Review of Systems Exam Vitals Vital Signs Date Temp Pulse Resp B/P (MAP) Pulse Ox O2 O2 Flow FiO2 Time Delivery Rate 08/22/18 110 12:10 08/22/18 99.0 20 151/99 99 Mechanical 12:00 (116) Ventilator 08/22/18 55 11:10 Intake and Output 08/21/18 08/21/18 08/22/18 1515:00 23:00 07:00 IntakeIntake Total 192.5 ml 340 ml 135 ml OutputOutput Total 55 ml 75 ml 150 ml BalanceBalance 137.5 ml 265 ml -15 ml Neurological: confused, lethargic (Minimally responsive to verbal stimulation, opens eyes cranial nerves cannot be assessed fully but grossly intact, does not follow simple commands does not squeeze my hands do not move her bilateral lower extremities) Results Result Diagram: 08/22/18 0345 08/22/18 0345 Results 24hrs Laboratory Tests Test 08/22/18 03:45 White Blood Count 12.5 H Red Blood Count 3.26 L Hemoglobin 9.1 L Hematocrit 29.2 L Mean Corpuscular Volume 89.6 Mean Corpuscular Hemoglobin 27.9 L Mean Corpuscular Hemoglobin Concent 31.2 L Red Cell Distribution Width 15.7 H Platelet Count 397 Mean Platelet Volume 13.9 H Immature Granulocytes % 1.400 H Neutrophils % 75.1 Lymphocytes % 14.8 L Monocytes % 5.8 Eosinophils % 2.1 Basophils % 0.8 Nucleated Red Blood Cells % 0.0 Immature Granulocytes # 0.180 H Neutrophils # 9.4 H Lymphocytes # 1.9 Monocytes # 0.7 Eosinophils # 0.3 Basophils # 0.1 Nucleated Red Blood Cells # 0.0 Sodium Level 143 Potassium Level 5.4 H Chloride Level 103 Carbon Dioxide Level 23 Anion Gap 17 H Blood Urea Nitrogen 96 H Creatinine 5.10 H Est Glomerular Filtrat Rate mL/min 9 L Glucose Level 83 Calcium Level 8.7 Phosphorus Level 9.2 #H Magnesium Level 2.2 Medications Medication Current Medications Norepinephrine 250 ml @ 1.875 mls/ hr TITRATE IV Last administered on 08/10/18 00:41; Admin Dose 5.625 MLS/HR; Start 08/04/18 at 23:15 Morphine Sulfate (morphine) 1 mg Q1H PRN IV PAIN Last administered on 08/17/18 18:30; Admin Dose 1 MG; Start 08/04/18 at 23:30 Atorvastatin Calcium (Lipitor) 80 mg DAILY@21 PO Last administered on 08/21/18 21:40; Admin Dose 80 MG; Start 08/05/18 at 21:00 Nitroglycerin/ Dextrose 250 ml @ 1.5 mls/hr TITRATE IV Last administered on 08/05/18 14:22; Admin Dose 72 MLS/HR; Start 08/05/18 at 01:00 Miscellaneous Information 1 ea NOTE XX ; Start 08/05/18 at 09:00 Acetaminophen (Tylenol Supp) 650 mg Q4H PRN [place] TEMP > 37C Last administered on 08/09/18 04:37; Admin Dose 650 MG; Start 08/05/18 at 11:00 Acetaminophen (Tylenol Liquid) 650 mg Q4H PRN PO TEMP > 37C Last administered on 08/22/18 00:39; Admin Dose 650 MG; Start 08/05/18 at 11:00 Meperidine HCl (Demerol) 25 mg Q4H PRN IV POST OPERATIVE SHIVERING Last administered on 08/05/18 16:31; Admin Dose 25 MG; Start 08/05/18 at 11:00 Eye Lubricant (Akwa Oint) 1 applic Q6 BOTH EYES Last administered on 08/22/18 05:17; Admin Dose 1 APPLIC; Start 08/05/18 at 12:00 Eye Lubricant (Artificial Tears Oph) 2 drop Q6 BOTH EYES Last administered on 08/22/18 05:17; Admin Dose 2 DROP; Start 08/05/18 at 12:00 Insulin Human Regular 100 unit/ Sodium Chloride 100 ml @ 0 mls/hr PER PROTOCOL IV ; Start 08/05/18 at 12:00 Miscellaneous Information (* Miscellaneous Pharmacy Order) Treatment of Hypoglycemia: 1.BG 51... Per protocol XX ; Start 08/05/18 at 12:00 Dextrose (D50w Syringe) 25 ml Q15M PRN IV .DECREASED GLUCOSE; Start 08/05/18 at 12:00 Dextrose (D50w Syringe) 50 ml Q15M PRN IV .DECREASED GLUCOSE; Start 08/05/18 at 12:00 Fentanyl 100 ml @ 2.5 mls/hr TITRATE IV Last administered on 08/22/18 07:07; Admin Dose 5 MLS/HR; Start 08/05/18 at 12:00 Meperidine HCl (Demerol) 12.5 mg Q2H PRN IV POST OPERATIVE SHIVERING; Start 08/05/18 at 17:00 Aspirin (Aspirin) 81 mg DAILY NGT Last administered on 08/21/18 17:29; Admin Dose 81 MG; Start 08/06/18 at 09:00 Multivitamins (Multivitamin) 30 ml DAILY NGT Last administered on 08/20/18 08:54; Admin Dose 30 ML; Start 08/09/18 at 09:00 Zinc Sulfate (Zinc Sulfate) 220 mg DAILY NGT Last administered on 08/20/18 08:54; Admin Dose 220 MG; Start 08/09/18 at 09:00 Folic Acid (Folic Acid) 1 mg DAILY NGT Last administered on 08/20/18 08:54; Admin Dose 1 MG; Start 08/09/18 at 09:00 Ascorbic Acid (Vitamin C) 500 mg DAILY NGT Last administered on 08/20/18 08:54; Admin Dose 500 MG; Start 08/09/18 at 09:00 Albuterol (Ventolin Hfa) 4 puff Q6HWA RESP THERAPY INH Last administered on 08/22/18 08:49; Admin Dose 4 PUFF; Start 08/09/18 at 14:00 Ipratropium [place] (Atrovent Hfa) 4 puff Q6H RESP THERAPY INH Last administered on 08/22/18 08:48; Admin Dose 4 PUFF; Start 08/09/18 at 14:00 IV Flush (NS 10 ml) 10 ml PRN PRN IV IV PROTOCOL; Start 08/11/18 at 16:30 Lansoprazole (Prevacid) 30 mg 0600,1800 PEG Last administered on 08/22/18 05:17; Admin Dose 30 MG; Start 08/11/18 at 18:28 Heparin Sodium (Porcine) (Heparin (1000 Units/ml)) 3,000 unit PRN PRN CATHETER Dialysis Last administered on 08/20/18 16:08; Admin Dose 3,000 UNIT; Start 08/12/18 at 14:30 Labetalol HCl (Labetalol) 10 mg Q4H PRN IV ELEVATED SYSTOLIC BP > 180 Last administered on 08/20/18 16:54; Admin Dose 10 MG; Start 08/14/18 at 19:00 Midazolam HCl 50 ml @ 1 mls/hr TITRATE IV Last administered on 08/20/18 00:16; Admin Dose 5 MLS/HR; Start 08/15/18 at 11:00 Hydralazine HCl (Apresoline) 20 mg Q2 PRN IV ELEVATED SYSTOLIC BP Last admin istered on 08/17/18 18:30; Admin Dose 20 MG; Start 08/16/18 at 08:00 Metronidazole 100 ml @ 100 mls/hr Q8 IVPB Last administered on 08/22/18 05:17; Admin Dose 100 MLS/HR; Start 08/16/18 at 22:00 Carvedilol (Coreg) 12.5 mg Q6H PO Last administered on 08/22/18 07:03; Admin Dose 12.5 MG; Start 08/17/18 at 01:00 Docusate Sodium (Colace Liquid Cup) 100 mg BID GTB Last administered on 08/21/18 21:40; Admin Dose 100 MG; Start 08/18/18 at 09:00 Clopidogrel Bisulfate (plaVIX) 75 mg DAILY NGT Last administered on 08/21/18 17:29; Admin Dose 75 MG; Start 08/18/18 at 13:30 Cefazolin Sodium 50 ml @ 100 mls/hr Q24H IVPB Last administered on 08/21/18 14:34; Admin Dose 100 MLS/HR; Start 08/19/18 at 14:00 Levofloxacin/ Dextrose 50 ml @ 50 mls/hr Q48H IVPB Last administered on 08/21/18at 12:52; Admin Dose 50 MLS/HR; Start 08/19/18 at 12:30 Rifaximin (Xifaxan) 200 mg TID PO Last administered on 08/21/18at 21:40; Admin Dose 200 MG; Start 08/19/18 at 13:00 Albumin Human 100 ml @ 100 mls/hr DURING DIALYSIS PRN IV HYPOTENSION DURING HD Last administered on 08/22/18at 10:24; Admin Dose 100 MLS/HR; Start 08/22/18 at 10:00 TIEN HENRY Aug 22, 2018 13:21
[2018-08-22] MEDS: HEPARIN 1000 UNITS/ML 10 ML INJ CATHETER PRN (13:36)
[2018-08-22] MEDS: CEFAZOLIN 1 GM/50 ML (PMX) 50 ML IVPB SCH (13:50)
--- NOTE | 2018-08-22 14:22 | CONS ---
Assessment/Plan Assessment/Plan Hospital Course (Demo Recall) Patient is seen hemodialysis looks comfortable she opens eyes to commands. No fevers overnight with a T-max of 99.7 WBC 12.5 H&H 9.1 29.2 platelets 397 Chest x-ray this morning revealed stable perihilar infiltrates in the right upper lobe and throughout the left lung Antimicrobials: Ancef, Levaquin, Flagyl Microbiology: Urine culture on admission grew E. coli and Proteus, blood culture s growing oxacillin sensitive staph aureus endotracheal aspirate also growing oxacillin sensitive staph aureus ear drainage preliminary growing staph aureus, repeat blood cultures 2 days ago negative Indwelling: Endotracheal tube, orogastric tube, right femoral Devan, right upper extremity PICC line Physical examination: Obese well-developed middle-aged woman who is intubated in no distress. Head atraumatic normocephalic neck is supple chest rise symmetrical breath sounds diminished bases. Heart: S1-S2. Abdomen distended. Bowel sounds hypoactive. Extremities cyanotic Assessment: 1. Severe sepsis, s/p shock 2. Oxacillin sensitive staph aureus bacteremia 2 to #3 3. Oxacillin sensitive staph aureus pneumonia 4. Polymicrobial UTI 5. ST elevation [place], status post stent 6. Status post V. fib arrest 7. Acute renal failure, started on hemodialysis 8. 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 Anemia and thrombocytopenia 10. Acute sinusitis and bilateral mastoiditis 11. Morbid obesity 12. Diarrhea, r/o C dif Plan: Stable, repeat blood cultures negative, continue on current antibiotics, plan for tracheostomy today Consultation Date/Type/Reason Admit Date/Time Aug 04, 2018 at 23:10 Initial Consult Date 08/12/18 Type of Consult id Requesting Provider: HARPAL AGGARWAL MD Date/Time of Note DATE: 08/22/18 TIME: 14:21 Exam/Review of Systems Exam Vitals Vital Signs Date Temp Pulse Resp B/P (MAP) Pulse Ox O2 O2 Flow FiO2 Time Delivery Rate 08/22/18 114 20 139/89 100 Mechanical 14:00 (106) Ventilator 08/22/18 99.0 12:00 08/22/18 55 11:10 Intake and Output 08/21/18 08/21/18 08/22/18 1515:00 23:00 07:00 IntakeIntake Total 192.5 ml 340 ml 135 ml OutputOutput Total 55 ml 75 ml 150 ml BalanceBalance 137.5 ml 265 ml -15 ml Results Result Diagram: 08/22/18 0345 08/22/18 0345 Results 24hrs Laboratory Tests Test 08/22/18 03:45 White Blood Count 12.5 H Red Blood Count 3.26 L Hemoglobin 9.1 L Hematocrit 29.2 L Mean Corpuscular Volume 89.6 Mean Corpuscular Hemoglobin 27.9 L Mean Corpuscular Hemoglobin Concent 31.2 L Red Cell Distribution Width 15.7 H Platelet Count 397 Mean Platelet Volume 13.9 H Immature Granulocytes % 1.400 H Neutrophils % 75.1 Lymphocytes % 14.8 L Monocytes % 5.8 Eosinophils % 2.1 Basophils % 0.8 Nucleated Red Blood Cells % 0.0 Immature Granulocytes # 0.180 H Neutrophils # 9.4 H Lymphocytes # 1.9 Monocytes # 0.7 Eosinophils # 0.3 Basophils # 0.1 Nucleated Red Blood Cells # 0.0 Sodium Level 143 Potassium Level 5.4 H Chloride Level 103 Carbon Dioxide Level 23 Anion Gap 17 H Blood Urea Nitrogen 96 H Creatinine 5.10 H Est Glomerular Filtrat Rate mL/min 9 L Glucose Level 83 Calcium Level 8.7 Phosphorus Level 9.2 #H Magnesium Level 2.2 Medications Medication Current Medications Norepinephrine 250 ml @ 1.875 mls/ hr TITRATE IV Last administered on 08/10/18at 00:41; Admin Dose 5.625 MLS/HR; Start 08/04/18 at 23:15 Morphine Sulfate (morphine) 1 mg Q1H PRN IV PAIN Last administered on 08/17/18at 18:30; Admin Dose 1 MG; Start 08/04/18 at 23:30 Atorvastatin Calcium (Lipitor) 80 mg DAILY@21 PO Last administered on 08/21/18at 21:40; Admin Dose 80 MG; Start 08/05/18 at 21:00 Nitroglycerin/ Dextrose 250 ml @ 1.5 mls/hr TITRATE IV Last administered on 08/05/18at 14:22; Admin Dose 72 MLS/HR; Start 08/05/18 at 01:00 Miscellaneous Information 1 ea NOTE XX ; Start 08/05/18 at 09:00 Acetaminophen (Tylenol Supp) 650 mg Q4H PRN [place] TEMP > 37C Last administered on 08/09/18 04:37; Admin Dose 650 MG; Start 08/05/18 at 11:00 Acetaminophen (Tylenol Liquid) 650 mg Q4H PRN PO TEMP > 37C Last administered on 08/22/18 00:39; Admin Dose 650 MG; Start 08/05/18 at 11:00 Meperidine HCl (Demerol) 25 mg Q4H PRN IV POST OPERATIVE SHIVERING Last administered on 08/05/18 16:31; Admin Dose 25 MG; Start 08/05/18 at 11:00 Eye Lubricant (Akwa Oint) 1 applic Q6 BOTH EYES Last administered on 08/22/18 05:17; Admin Dose 1 APPLIC; Start 08/05/18 at 12:00 Eye Lubricant (Artificial Tears Oph) 2 drop Q6 BOTH EYES Last administered on 08/22/18 05:17; Admin Dose 2 DROP; Start 08/05/18 at 12:00 Insulin Human Regular 100 unit/ Sodium Chloride 100 ml @ 0 mls/hr PER PROTOCOL IV ; Start 08/05/18 at 12:00 Miscellaneous Information (* Miscellaneous Pharmacy Order) Treatment of Hypoglycemia: 1.BG 51... Per protocol XX ; Start 08/05/18 at 12:00 Dextrose (D50w Syringe) 25 ml Q15M PRN IV .DECREASED GLUCOSE; Start 08/05/18 at 12:00 Dextrose (D50w Syringe) 50 ml Q15M PRN IV .DECREASED GLUCOSE; Start 08/05/18 at 12:00 Fentanyl 100 ml @ 2.5 mls/hr TITRATE IV Last administered on 08/22/18 07:07; Admin Dose 5 MLS/HR; Start 08/05/18 at 12:00 Meperidine HCl (Demerol) 12.5 mg Q2H PRN IV POST OPERATIVE SHIVERING; Start 08/05/18 at 17:00 Aspirin (Aspirin) 81 mg DAILY NGT Last administered on 08/21/18 17:29; Admin Dose 81 MG; Start 08/06/18 at 09:00 Multivitamins (Multivitamin) 30 ml DAILY NGT Last administered on 08/20/18at 08:54; Admin Dose 30 ML; Start 08/09/18 at 09:00 Zinc Sulfate (Zinc Sulfate) 220 mg DAILY NGT Last administered on 08/20/18 08:54; Admin Dose 220 MG; Start 08/09/18 at 09:00 Folic Acid (Folic Acid) 1 mg DAILY NGT Last administered on 08/20/18 08:54; Admin Dose 1 MG; Start 08/09/18 at 09:00 Ascorbic Acid (Vitamin C) 500 mg DAILY NGT Last administered on 08/20/18 08:54; Admin Dose 500 MG; Start 08/09/18 at 09:00 Albuterol (Ventolin Hfa) 4 puff Q6HWA RESP THERAPY INH Last administered on 08/22/18 08:49; Admin Dose 4 PUFF; Start 08/09/18 at 14:00 Ipratropium [place] (Atrovent Hfa) 4 puff Q6H RESP THERAPY INH Last administered on 08/22/18 08:48; Admin Dose 4 PUFF; Start 08/09/18 at 14:00 IV Flush (NS 10 ml) 10 ml PRN PRN IV IV PROTOCOL; Start 08/11/18 at 16:30 Lansoprazole (Prevacid) 30 mg 0600,1800 PEG Last administered on 08/22/18 05:17; Admin Dose 30 MG; Start 08/11/18 at 18:28 Heparin Sodium (Porcine) (Heparin (1000 Units/ml)) 3,000 unit PRN PRN CATHETER Dialysis Last administered on 08/22/18 13:36; Admin Dose 3,000 UNIT; Start 08/12/18 at 14:30 Labetalol HCl (Labetalol) 10 mg Q4H PRN IV ELEVATED SYSTOLIC BP > 180 Last administered on 08/20/18 16:54; Admin Dose 10 MG; Start 08/14/18 at 19:00 Midazolam HCl 50 ml @ 1 mls/hr TITRATE IV Last administered on 08/20/18 00:16; Admin Dose 5 MLS/HR; Start 08/15/18 at 11:00 Hydralazine HCl (Apresoline) 20 mg Q2 PRN IV ELEVATED SYSTOLIC BP Last administered on 08/17/18 18:30; Admin Dose 20 MG; Start 08/16/18 at 08:00 Metronidazole 100 ml @ 100 mls/hr Q8 IVPB Last administered on 08/22/18 05:17; Admin Dose 100 MLS/HR; Start 08/16/18 at 22:00 Carvedilol (Coreg) 12.5 mg Q6H PO Last administered on 08/22/18 07:03; Admin Dose 12.5 MG; Start 08/17/18 at 01:00 Docusate Sodium (Colace Liquid Cup) 100 mg BID GTB Last administered on 08/21/18 21:40; Admin Dose 100 MG; Start 08/18/18 at 09:00 Clopidogrel Bisulfate (plaVIX) 75 mg DAILY NGT Last administered on 08/21/18 17:29; Admin Dose 75 MG; Start 08/18/18 at 13:30 Cefazolin Sodium 50 ml @ 100 mls/hr Q24H IVPB Last administered on 08/22/18 1 3:50; Admin Dose 100 MLS/HR; Start 08/19/18 at 14:00 Levofloxacin/ Dextrose 50 ml @ 50 mls/hr Q48H IVPB Last administered on 08/21/18 12:52; Admin Dose 50 MLS/HR; Start 08/19/18 at 12:30 Rifaximin (Xifaxan) 200 mg TID PO Last administered on 08/21/18 21:40; Admin Dose 200 MG; Start 08/19/18 at 13:00 Albumin Human 100 ml @ 100 mls/hr DURING DIALYSIS PRN IV HYPOTENSION DURING HD Last administered on 08/22/18 10:24; Admin Dose 100 MLS/HR; Start 08/22/18 at 10:00 WIN LUCIANO NP Aug 22, 2018 14:22
--- NOTE | 2018-08-22 14:44 | PN ---
Date/Time of Note Date/Time of Note DATE: 08/22/18 TIME: 14:32 Assessment/Plan VTE Prophylaxis Risk score (from Ns)>0 risk: 9 SCD applied (from Ns): Yes Pharmacological prophylaxis: other (scds) Lines/Catheters IV Catheter Type (from Nrsg): Central Line Central line still needed: Yes (meds) Urinary Cath still in place: Yes Reason Cath still needed: other (indicate) (monitor output) Assessment/Plan Hospital Course Assessment: Dysphagia Status post cardiac arrest Respiratory failure Sepsis -on levophed Abnormal MRI of the brain Status post cardiac catheterization with stents Acute kidney injuryon hemodialysis Obesity Hypertension Plan: Currently NPO for possible trach today PEG BID and PRN Patient seen in collaboration with Subjective: Slightly bleeding at G-tube site areas cleaned, new dressing applied Will monitor for the next 24 hours to assess bleeding and to make sure pt is able to alexis Tf. PHYSICAL EXAMINATION: GENERAL: Well developed, obese, intubated, on MV, in no acute distress SKIN: PEG in place HEAD: Normocephalic, atraumatic, no tenderness. EYES: Pupils equal reactive to light, no discharge. EARS/NOSE AND THROAT: Ears normal, nose normal, oropharynx normal NECK: Supple CHEST: Inspection within normal limits. CARDIOVASCULAR: Heart: Regular rate and rhythm RESPIRATORY: Lungs clear to auscultation GASTROINTESTINAL AND LIVER: Abdomen: Soft, non tenderness, non-distended, no hernias, no masses, no organomegaly, no ascites, no guarding, no rebound tenderness, normoactive bowel sounds. Rectal: Deferred. GENITOURINARY: Female genitalia within normal limits. Rectal tube in place EXTREMITIES: No cyanosis, generalized edema. Result Diagram: 08/22/18 0345 08/22/18 0345 Results 24hrs Laboratory Tests Test 08/22/18 03:45 White Blood Count 12.5 H Red Blood Count 3.26 L Hemoglobin 9.1 L Hematocrit 29.2 L Mean Corpuscular Volume 89.6 Mean Corpuscular Hemoglobin 27.9 L Mean Corpuscular Hemoglobin Concent 31.2 L Red Cell Distribution Width 15.7 H Platelet Count 397 Mean Platelet Volume 13.9 H Immature Granulocytes % 1.400 H Neutrophils % 75.1 Lymphocytes % 14.8 L Monocytes % 5.8 Eosinophils % 2.1 Basophils % 0.8 Nucleated Red Blood Cells % 0.0 Immature Granulocytes # 0.180 H Neutrophils # 9.4 H Lymphocytes # 1.9 Monocytes # 0.7 Eosinophils # 0.3 Basophils # 0.1 Nucleated Red Blood Cells # 0.0 Sodium Level 143 Potassium Level 5.4 H Chloride Level 103 Carbon Dioxide Level 23 Anion Gap 17 H Blood Urea Nitrogen 96 H Creatinine 5.10 H Est Glomerular Filtrat Rate mL/min 9 L Glucose Level 83 Calcium Level 8.7 Phosphorus Level 9.2 #H Magnesium Level 2.2 Exam/Review of Systems Exam Vitals Vital Signs Date Temp Pulse Resp B/P (MAP) Pulse Ox O2 O2 Flow FiO2 Time Delivery Rate 08/22/18 114 20 139/89 100 Mechanical 14:00 (106) Ventilator 08/22/18 99.0 12:00 08/22/18 55 11:10 Intake and Output 08/21/18 08/21/18 08/22/18 1515:00 23:00 07:00 IntakeIntake Total 192.5 ml 340 ml 135 ml OutputOutput Total 55 ml 75 ml 150 ml BalanceBalance 137.5 ml 265 ml -15 ml Results Results 24hrs Laboratory Tests Test 08/22/18 03:45 White Blood Count 12.5 H Red Blood Count 3.26 L Hemoglobin 9.1 L Hematocrit 29.2 L Mean Corpuscular Volume 89.6 Mean Corpuscular Hemoglobin 27.9 L Mean Corpuscular Hemoglobin Concent 31.2 L Red Cell Distribution Width 15.7 H Platelet Count 397 Mean Platelet Volume 13.9 H Immature Granulocytes % 1.400 H Neutrophils % 75.1 Lymphocytes % 14.8 L Monocytes % 5.8 Eosinophils % 2.1 Basophils % 0.8 Nucleated Red Blood Cells % 0.0 Immature Granulocytes # 0.180 H Neutrophils # 9.4 H Lymphocytes # 1.9 Monocytes # 0.7 Eosinophils # 0.3 Basophils # 0.1 Nucleated Red Blood Cells # 0.0 Sodium Level 143 Potassium Level 5.4 H Chloride Level 103 Carbon Dioxide Level 23 Anion Gap 17 H Blood Urea Nitrogen 96 H Creatinine 5.10 H Est Glomerular Filtrat Rate mL/min 9 L Glucose Level 83 Calcium Level 8.7 Phosphorus Level 9.2 #H Magnesium Level 2.2 Medications Medication Current Medications Norepinephrine 250 ml @ 1.875 mls/ hr TITRATE IV Last administered on at 00:41; Admin Dose 5.625 MLS/HR; Start 08/04/18 at 23:15 Morphine Sulfate (morphine) 1 mg Q1H PRN IV PAIN Last administered on 08/17/18 18:30; Admin Dose 1 MG; Start 08/04/18 at 23:30 Atorvastatin Calcium (Lipitor) 80 mg DAILY@21 PO Last administered on 08/21/18 21:40; Admin Dose 80 MG; Start 08/05/18 at 21:00 Nitroglycerin/ Dextrose 250 ml @ 1.5 mls/hr TITRATE IV Last administered on 08/05/18 14:22; Admin Dose 72 MLS/HR; Start 08/05/18 at 01:00 Miscellaneous Information 1 ea NOTE XX ; Start 08/05/18 at 09:00 Acetaminophen (Tylenol Supp) 650 mg Q4H PRN [place] TEMP > 37C Last administered on 08/09/18 04:37; Admin Dose 650 MG; Start 08/05/18 at 11:00 Acetaminophen (Tylenol Liquid) 650 mg Q4H PRN PO TEMP > 37C Last administered on 08/22/18 00:39; Admin Dose 650 MG; Start 08/05/18 at 11:00 Meperidine HCl (Demerol) 25 mg Q4H PRN IV POST OPERATIVE SHIVERING Last administered on 08/05/18 16:31; Admin Dose 25 MG; Start 08/05/18 at 11:00 Eye Lubricant (Akwa Oint) 1 applic Q6 BOTH EYES Last administered on 08/22/18 05:17; Admin Dose 1 APPLIC; Start 08/05/18 at 12:00 Eye Lubricant (Artificial Tears Oph) 2 drop Q6 BOTH EYES Last administered on 08/22/18 05:17; Admin Dose 2 DROP; Start 08/05/18 at 12:00 Insulin Human Regular 100 unit/ Sodium Chloride 100 ml @ 0 mls/hr PER PROTOCOL IV ; Start 08/05/18 at 12:00 Miscellaneous Information (* Miscellaneous Pharmacy Order) Treatment of Hypoglycemia: 1.BG 51... Per protocol XX ; Start 08/05/18 at 12:00 Dextrose (D50w Syringe) 25 ml Q15M PRN IV .DECREASED GLUCOSE; Start 08/05/18 at 12:00 Dextrose (D50w Syringe) 50 ml Q15M PRN IV .DECREASED GLUCOSE; Start 08/05/18 at 12:00 Fentanyl 100 ml @ 2.5 mls/hr TITRATE IV Last administered on 08/22/18 07:07; Admin Dose 5 MLS/HR; Start 08/05/18 at 12:00 Meperidine HCl (Demerol) 12.5 mg Q2H PRN IV POST OPERATIVE SHIVERING; Start 08/05/18 at 17:00 Aspirin (Aspirin) 81 mg DAILY NGT Last administered on 08/21/18 17:29; Admin Dose 81 MG; Start 08/06/18 at 09:00 Multivitamins (Multivitamin) 30 ml DAILY NGT Last administered on 08/20/18 08:54; Admin Dose 30 ML; Start 08/09/18 at 09:00 Zinc Sulfate (Zinc Sulfate) 220 mg DAILY NGT Last administered on 08/20/18 08:54; Admin Dose 220 MG; Start 08/09/18 at 09:00 Folic Acid (Folic Acid) 1 mg DAILY NGT Last administered on 08/20/18 08:54; Admin Dose 1 MG; Start 08/09/18 at 09:00 Ascorbic Acid (Vitamin C) 500 mg DAILY NGT Last administered on 08/20/18 08:54; Admin Dose 500 MG; Start 08/09/18 at 09:00 Albuterol (Ventolin Hfa) 4 puff Q6HWA RESP THERAPY INH Last administered on 08/22/18 08:49; Admin Dose 4 PUFF; Start 08/09/18 at 14:00 Ipratropium [place] (Atrovent Hfa) 4 puff Q6H RESP THERAPY INH Last administered on 08/22/18 08:48; Admin Dose 4 PUFF; Start 08/09/18 at 14:00 IV Flush (NS 10 ml) 10 ml PRN PRN IV IV PROTOCOL; Start 08/11/18 at 16:30 Lansoprazole (Prevacid) 30 mg 0600,1800 PEG Last administered on 08/22/18 05:17; Admin Dose 30 MG; Start 08/11/18 at 18:28 Heparin Sodium (Porcine) (Heparin (1000 Units/ml)) 3,000 unit PRN PRN CATHETER Dialysis Last administered on 08/22/18 13:36; Admin Dose 3,000 UNIT; Start 08/12/18 at 14:30 Labetalol HCl (Labetalol) 10 mg Q4H PRN IV ELEVATED SYSTOLIC BP > 180 Last administered on 08/20/18 16:54; Admin Dose 10 MG; Start 08/14/18 at 19:00 Midazolam HCl 50 ml @ 1 mls/hr TITRATE IV Last administered on 08/20/18 00:16; Admin Dose 5 MLS/HR; Start 08/15/18 at 11:00 Hydralazine HCl (Apresoline) 20 mg Q2 PRN IV ELEVATED SYSTOLIC BP Last administered on 08/17/18 18:30; Admin Dose 20 MG; Start 08/16/18 at 08:00 Metronidazole 100 ml @ 100 mls/hr Q8 IVPB Last administered on 08/22/18 14:25; Admin Dose 100 MLS/HR; Start 08/16/18 at 22:00 Carvedilol (Coreg) 12.5 mg Q6H PO Last administered on 08/22/18 07:03; Admin Dose 12.5 MG; Start 08/17/18 at 01:00 Docusate Sodium (Colace Liquid Cup) 100 mg BID GTB Last administered on 08/21/18 21:40; Admin Dose 100 MG; Start 08/18/18 at 09:00 Clopidogrel Bisulfate (plaVIX) 75 mg DAILY NGT Last administered on 08/21/18 17:29; Admin Dose 75 MG; Start 08/18/18 at 13:30 Cefazolin Sodium 50 ml @ 100 mls/hr Q24H IVPB Last administered on 08/22/18 13:50; Admin Dose 100 MLS/HR; Start 08/19/18 at 14:00 Levofloxacin/ Dextrose 50 ml @ 50 mls/hr Q48H IVPB Last administered on 08/21/18 12:52; Admin Dose 50 MLS/HR; Start 08/19/18 at 12:30 Rifaximin (Xifaxan) 200 mg TID PO Last administered on 08/21/18 21:40; Admin Do se 200 MG; Start 08/19/18 at 13:00 Albumin Human 100 ml @ 100 mls/hr DURING DIALYSIS PRN IV HYPOTENSION DURING HD Last administered on 4/3/19at 10:24; Admin Dose 100 MLS/HR; Start 08/22/18 at 10:00 PAULA GUTIERREZ Aug 22, 2018 14:44
--- NOTE | 2018-08-22 14:45 | PAC ---
Date/Time of Note Date/Time of Note DATE: 08/22/18 TIME: 14:45 Post-Anesthesia Notes Post-Anesthesia Note Last documented vital signs Vital Signs Date Temp Pulse Resp B/P (MAP) Pulse Ox O2 O2 Flow FiO2 Time Delivery Rate 08/22/18 99.0 114 20 139/89 100 Mechanical 14:00 (106) Ventilator 08/22/18 99.0 12:00 08/22/18 55 11:10 Activity: WNL Respiratory function: WNL Cardiovascular function: WNL Mental status: Baseline Pain reasonably controlled: Yes Hydration appropriate: Yes Nausea/Vomiting absent: No ELIZABET PICKENS MD Aug 22, 2018 14:45
[2018-08-22] MEDS: hydrALAzine 20 MG INJ IV PRN (16:18)
[2018-08-22] MEDS ORDERED: LIDOCAINE 1%/EPI (1:100,000) (MDV) 20 ML ONE (18:37)
--- NOTE | 2018-08-22 18:57 | PREAC ---
Date/Time of Note Date/Time of Note DATE: 08/22/18 TIME: 18:54 Anesthesia Eval and Record Evaluation Time Pre-Procedure Interview DATE: 08/22/18 TIME: 18:54 Age 38 Sex female NPO: 8 hrs Preoperative diagnosis Respiratory Failure Planned procedure Tracheostomy Past Medical History Past Medical History: Includes Cardio: HTN, CAD, Arrythmia, CHF Renal: CKD GI: Obesity Heme: Anemia Surgery & Anesthesia Issues No known issue Meds Anticoagulation: No Beta Horacio within 24 hr: No Reason Beta Horacio not given: Pt. not on B-Horacio Current Medications Norepinephrine 250 ml @ 1.875 mls/ hr TITRATE IV Last administered on 08/10/18at 00:41; Admin Dose 5.625 MLS/HR; Start 08/04/18 at 23:15 Morphine Sulfate (morphine) 1 mg Q1H PRN IV PAIN Last administered on 08/17/18 18:30; Admin Dose 1 MG; Start 08/04/18 at 23:30 Atorvastatin Calcium (Lipitor) 80 mg DAILY@21 PO Last administered on 08/21/18at 21:40; Admin Dose 80 MG; Start 08/05/18 at 21:00 Nitroglycerin/ Dextrose 250 ml @ 1.5 mls/hr TITRATE IV Last administered on 08/05/18at 14:22; Admin Dose 72 MLS/HR; Start 08/05/18 at 01:00 Miscellaneous Information 1 ea NOTE XX ; Start 08/05/18 at 09:00 Acetaminophen (Tylenol Supp) 650 mg Q4H PRN GA TEMP > 37C Last administered on 08/09/18at 04:37; Admin Dose 650 MG; Start 08/05/18 at 11:00 Acetaminophen (Tylenol Liquid) 650 mg Q4H PRN PO TEMP > 37C Last administered on 08/22/18at 00:39; Admin Dose 650 MG; Start 08/05/18 at 11:00 Meperidine HCl (Demerol) 25 mg Q4H PRN IV POST OPERATIVE SHIVERING Last administered on 08/05/18at 16:31; Admin Dose 25 MG; Start 08/05/18 at 11:00 Eye Lubricant (Akwa Oint) 1 applic Q6 BOTH EYES Last administered on 08/22/18at 05:17; Admin Dose 1 APPLIC; Start 08/05/18 at 12:00 Eye Lubricant (Artificial Tears Oph) 2 drop Q6 BOTH EYES Last administered on 08/22/18 05:17; Admin Dose 2 DROP; Start 08/05/18 at 12:00 Insulin Human Regular 100 unit/ Sodium Chloride 100 ml @ 0 mls/hr PER PROTOCOL IV ; Start 08/05/18 at 12:00 Miscellaneous Information (* Miscellaneous Pharmacy Order) Treatment of Hypoglycemia: 1.BG 51... Per protocol XX ; Start 08/05/18 at 12:00 Dextrose (D50w Syringe) 25 ml Q15M PRN IV .DECREASED GLUCOSE; Start 08/05/18 at 12:00 Dextrose (D50w Syringe) 50 ml Q15M PRN IV .DECREASED GLUCOSE; Start 08/05/18 at 12:00 Fentanyl 100 ml @ 2.5 mls/hr TITRATE IV Last administered on 08/22/18 07:07; Admin Dose 5 MLS/HR; Start 08/05/18 at 12:00 Meperidine HCl (Demerol) 12.5 mg Q2H PRN IV POST OPERATIVE SHIVERING; Start 08/05/18 at 17:00 Aspirin (Aspirin) 81 mg DAILY NGT Last administered on 08/21/18 17:29; Admin Dose 81 MG; Start 08/06/18 at 09:00 Multivitamins (Multivitamin) 30 ml DAILY NGT Last administered on 08/20/18 08:54; Admin Dose 30 ML; Start 08/09/18 at 09:00 Zinc Sulfate (Zinc Sulfate) 220 mg DAILY NGT Last administered on 08/20/18 08:54; Admin Dose 220 MG; Start 08/09/18 at 09:00 Folic Acid (Folic Acid) 1 mg DAILY NGT Last administered on 08/20/18 08:54; Admin Dose 1 MG; Start 08/09/18 at 09:00 Ascorbic Acid (Vitamin C) 500 mg DAILY NGT Last administered on 08/20/18 08:54; Admin Dose 500 MG; Start 08/09/18 at 09:00 Albuterol (Ventolin Hfa) 4 puff Q6HWA RESP THERAPY INH Last administered on 08/22/18 14:45; Admin Dose 4 PUFF; Start 08/09/18 at 14:00 Ipratropium [place] (Atrovent Hfa) 4 puff Q6H RESP THERAPY INH Last administered on 08/22/18 14:45; Admin Dose 4 PUFF; Start 08/09/18 at 14:00 IV Flush (NS 10 ml) 10 ml PRN PRN IV IV PROTOCOL; Start 08/11/18 at 16:30 Lansoprazole (Prevacid) 30 mg 0600,1800 PEG Last administered on 08/22/18 05:17; Admin Dose 30 MG; Start 08/11/18 at 18:28 Heparin Sodium (Porcine) (Heparin (1000 Units/ml)) 3,000 unit PRN PRN CATHETER Dialysis Last administered on 08/22/18 13:36; Admin Dose 3,000 UNIT; Start 08/12/18 at 14:30 Labetalol HCl (Labetalol) 10 mg Q4H PRN IV ELEVATED SYSTOLIC BP > 180 Last administered on 08/20/18 16:54; Admin Dose 10 MG; Start 08/14/18 at 19:00 Midazolam HCl 50 ml @ 1 mls/hr TITRATE IV Last administered on 08/20/18 00:16; Admin Dose 5 MLS/HR; Start 08/15/18 at 11:00 Hydralazine HCl (Apresoline) 20 mg Q2 PRN IV ELEVATED SYSTOLIC BP Last administered on 08/22/18 16:18; Admin Dose 20 MG; Start 08/16/18 at 08:00 Metronidazole 100 ml @ 100 mls/hr Q8 IVPB Last administered on 08/22/18 14:25; Admin Dose 100 MLS/HR; Start 08/16/18 at 22:00 Carvedilol (Coreg) 12.5 mg Q6H PO Last administered on 08/22/18 07:03; Admin Dose 12.5 MG; Start 08/17/18 at 01:00 Docusate Sodium (Colace Liquid Cup) 100 mg BID GTB Last administered on 08/21/18 21:40; Admin Dose 100 MG; Start 08/18/18 at 09:00 Clopidogrel Bisulfate (plaVIX) 75 mg DAILY NGT Last administered on 08/21/18 17:29; Admin Dose 75 MG; Start 08/18/18 at 13:30 Cefazolin Sodium 50 ml @ 100 mls/hr Q24H IVPB Last administered on 08/22/18 13:50; Admin Dose 100 MLS/HR; Start 08/19/18 at 14:00 Levofloxacin/ Dextrose 50 ml @ 50 mls/hr Q48H IVPB Last administered on 08/21/18 12:52; Admin Dose 50 MLS/HR; Start 08/19/18 at 12:30 Rifaximin (Xifaxan) 200 mg TID PO Last administered on 08/21/18at 21:40; Admin Dose 200 MG; Start 08/19/18 at 13:00 Albumin Human 100 ml @ 100 mls/hr DURING DIALYSIS PRN IV HYPOTENSION DURING HD Last administered on 08/22/18 10:24; Admin Dose 100 MLS/HR; Start 08/22/18 at 10:00 Meds reviewed: Yes Allergies Coded Allergies: Unknown: Unable to obtain (Unverified , 08/04/18) Allergies Reviewed: Yes Labs/Studies Labs Reviewed: Reviewed by anesthesiologist Result Diagram: 08/22/18 0345 08/22/18 0345 Laboratory Tests 08/22/18 03:45 test: Negative Studies: ECG (ST), CXR (refer to report) Pre-procedure Exam Last vitals Vital Signs Date Temp Pulse Resp B/P (MAP) Pulse Ox O2 O2 Flow FiO2 Time Delivery Rate 08/22/18 129 25 139/79 100 Mechanical 18:00 (99) Ventilator 08/22/18 40 17:20 08/22/18 99.5 16:00 Airway: Adequate mouth opening, Adequate thyromental dist Mallampati: Mallampati II Teeth: Abnormal (chipped) Lung: Abnormal (intubated, atelectasis) Heart: Abnormal (ST) ASA Physical Status ASA physical status: 4 Emergency: None Planned Anesthetic General/MAC: ETT Planned Pain Management Parenteral pain med Pre-operative Attestations Prior to commencing anesthesia and surgery, the patient was re-evaluated, there was verification of: *The patient's identity *The results of appropriate recent lab work and preoperative vital signs *The above evaluation not changing prior to induction *Anesthetic plan, risk benefits, alternative and complications discussed with patient/family; questions answered; patient/family understands, accepts and wishes to proceed. SHAYE RECINOS MD Aug 22, 2018 18:57
--- NOTE | 2018-08-22 19:04 | PREAC ---
Date/Time of Note Date/Time of Note DATE: 08/22/18 TIME: 19:02 Anesthesia Eval and Record Evaluation Time Pre-Procedure Interview DATE: 08/22/18 TIME: 19:02 Age 38 Sex female NPO: 8 hrs Preoperative diagnosis Respiratory Failure Planned procedure Tracheostomy Past Medical History Past Medical History: Includes Cardio: HTN, CAD, CABG, CHF (20%) Endo: Diabetes Neuro: Other (intracranial hemorrahge, Left hemiplagia) Heme: Anemia Surgery & Anesthesia Issues No known issue Meds Anticoagulation: No Beta Horacio within 24 hr: Yes Current Medications Norepinephrine 250 ml @ 1.875 mls/ hr TITRATE IV Last administered on 08/10/18 00:41; Admin Dose 5.625 MLS/HR; Start 08/04/18 at 23:15 Morphine Sulfate (morphine) 1 mg Q1H PRN IV PAIN Last administered on 08/17/18 18:30; Admin Dose 1 MG; Start 08/04/18 at 23:30 Atorvastatin Calcium (Lipitor) 80 mg DAILY@21 PO Last administered on 08/21/18 21:40; Admin Dose 80 MG; Start 08/05/18 at 21:00 Nitroglycerin/ Dextrose 250 ml @ 1.5 mls/hr TITRATE IV Last administered on 08/05/18 14:22; Admin Dose 72 MLS/HR; Start 08/05/18 at 01:00 Miscellaneous Information 1 ea NOTE XX ; Start 08/05/18 at 09:00 Acetaminophen (Tylenol Supp) 650 mg Q4H PRN [place] TEMP > 37C Last administered on 08/09/18at 04:37; Admin Dose 650 MG; Start 08/05/18 at 11:00 Acetaminophen (Tylenol Liquid) 650 mg Q4H PRN PO TEMP > 37C Last administered on 08/22/18 00:39; Admin Dose 650 MG; Start 08/05/18 at 11:00 Meperidine HCl (Demerol) 25 mg Q4H PRN IV POST OPERATIVE SHIVERING Last administered on 08/05/18at 16:31; Admin Dose 25 MG; Start 08/05/18 at 11:00 Eye Lubricant (Akwa Oint) 1 applic Q6 BOTH EYES Last administered on 08/22/18at 05:17; Admin Dose 1 APPLIC; Start 08/05/18 at 12:00 Eye Lubricant (Artificial Tears Oph) 2 drop Q6 BOTH EYES Last administered on 08/22/18 05:17; Admin Dose 2 DROP; Start 08/05/18 at 12:00 Insulin Human Regular 100 unit/ Sodium Chloride 100 ml @ 0 mls/hr PER PROTOCOL IV ; Start 08/05/18 at 12:00 Miscellaneous Information (* Miscellaneous Pharmacy Order) Treatment of Hypoglycemia: 1.BG 51... Per protocol XX ; Start 08/05/18 at 12:00 Dextrose (D50w Syringe) 25 ml Q15M PRN IV .DECREASED GLUCOSE; Start 08/05/18 at 12:00 Dextrose (D50w Syringe) 50 ml Q15M PRN IV .DECREASED GLUCOSE; Start 08/05/18 at 12:00 Fentanyl 100 ml @ 2.5 mls/hr TITRATE IV Last administered on 08/22/18 07:07; Admin Dose 5 MLS/HR; Start 08/05/18 at 12:00 Meperidine HCl (Demerol) 12.5 mg Q2H PRN IV POST OPERATIVE SHIVERING; Start 08/05/18 at 17:00 Aspirin (Aspirin) 81 mg DAILY NGT Last administered on 08/21/18 17:29; Admin Dose 81 MG; Start 08/06/18 at 09:00 Multivitamins (Multivitamin) 30 ml DAILY NGT Last administered on 08/20/18 08:54; Admin Dose 30 ML; Start 08/09/18 at 09:00 Zinc Sulfate (Zinc Sulfate) 220 mg DAILY NGT Last administered on 08/20/18 08:54; Admin Dose 220 MG; Start 08/09/18 at 09:00 Folic Acid (Folic Acid) 1 mg DAILY NGT Last administered on 08/20/18 08:54; Admin Dose 1 MG; Start 08/09/18 at 09:00 Ascorbic Acid (Vitamin C) 500 mg DAILY NGT Last administered on 08/20/18 08:54; Admin Dose 500 MG; Start 08/09/18 at 09:00 Albuterol (Ventolin Hfa) 4 puff Q6HWA RESP THERAPY INH Last administered on 08/22/18 14:45; Admin Dose 4 PUFF; Start 08/09/18 at 14:00 Ipratropium [place] (Atrovent Hfa) 4 puff Q6H RESP THERAPY INH Last administered on 08/22/18 14:45; Admin Dose 4 PUFF; Start 08/09/18 at 14:00 IV Flush (NS 10 ml) 10 ml PRN PRN IV IV PROTOCOL; Start 08/11/18 at 16:30 Lansoprazole (Prevacid) 30 mg 0600,1800 PEG Last administered on 08/22/18 05:17; Admin Dose 30 MG; Start 08/11/18 at 18:28 Heparin Sodium (Porcine) (Heparin (1000 Units/ml)) 3,000 unit PRN PRN CATHETER Dialysis Last administered on 08/22/18 13:36; Admin Dose 3,000 UNIT; Start 08/12/18 at 14:30 Labetalol HCl (Labetalol) 10 mg Q4H PRN IV ELEVATED SYSTOLIC BP > 180 Last administered on 08/20/18 16:54; Admin Dose 10 MG; Start 08/14/18 at 19:00 Midazolam HCl 50 ml @ 1 mls/hr TITRATE IV Last administered on 08/20/18 00:16; Admin Dose 5 MLS/HR; Start 08/15/18 at 11:00 Hydralazine HCl (Apresoline) 20 mg Q2 PRN IV ELEVATED SYSTOLIC BP Last administered on 08/22/18 16:18; Admin Dose 20 MG; Start 08/16/18 at 08:00 Metronidazole 100 ml @ 100 mls/hr Q8 IVPB Last administered on 08/22/18 14:25; Admin Dose 100 MLS/HR; Start 08/16/18 at 22:00 Carvedilol (Coreg) 12.5 mg Q6H PO Last administered on 08/22/18 07:03; Admin Dose 12.5 MG; Start 08/17/18 at 01:00 Docusate Sodium (Colace Liquid Cup) 100 mg BID GTB Last administered on 08/21/18 21:40; Admin Dose 100 MG; Start 08/18/18 at 09:00 Clopidogrel Bisulfate (plaVIX) 75 mg DAILY NGT Last administered on 08/21/18 17:29; Admin Dose 75 MG; Start 08/18/18 at 13:30 Cefazolin Sodium 50 ml @ 100 mls/hr Q24H IVPB Last administered on 4/3/19at 13:50; Admin Dose 100 MLS/HR; Start 08/19/18 at 14:00 Levofloxacin/ Dextrose 50 ml @ 50 mls/hr Q48H IVPB Last administered on 08/21/18 12:52; Admin Dose 50 MLS/HR; Start 08/19/18 at 12:30 Rifaximin (Xifaxan) 200 mg TID PO Last administered on 08/21/18at 21:40; Admin Dose 200 MG; Start 08/19/18 at 13:00 Albumin Human 100 ml @ 100 mls/hr DURING DIALYSIS PRN IV HYPOTENSION DURING HD Last administered on 08/22/18 10:24; Admin Dose 100 MLS/HR; Start 08/22/18 at 10:00 Meds reviewed: Yes Allergies Coded Allergies: Unknown: Unable to obtain (Unverified , 08/04/18) Allergies Reviewed: Yes Labs/Studies Labs Reviewed: Reviewed by anesthesiologist Result Diagram: 08/22/18 0345 08/22/18 0345 Laboratory Tests 08/22/18 03:45 test: N/A Studies: ECG (NSR), CXR (refer to report) Pre-procedure Exam Last vitals Vital Signs Date Temp Pulse Resp B/P (MAP) Pulse Ox O2 O2 Flow FiO2 Time Delivery Rate 08/22/18 129 25 139/79 100 Mechanical 18:00 (99) Ventilator 08/22/18 40 17:20 08/22/18 99.5 16:00 Airway: Adequate mouth opening, Adequate thyromental dist Mallampati: Mallampati II Teeth: Normal Lung: Normal Heart: Normal ASA Physical Status ASA physical status: 4 Emergency: None Planned Anesthetic General/MAC: ETT Planned Pain Management Parenteral pain med Pre-operative Attestations Prior to commencing anesthesia and surgery, the patient was re-evaluated, there was verification of: *The patient's identity *The results of appropriate recent lab work and preoperative vital signs *The above evaluation not changing prior to induction *Anesthetic plan, risk benefits, alternative and complications discussed with patient/family; questions answered; patient/family understands, accepts and wishes to proceed. SHAYE RECINOS MD Aug 22, 2018 19:04
--- NOTE | 2018-08-22 19:26 | OPR ---
Date/Time of Note Date/Time of Note DATE: 08/22/18 TIME: 19:24 Operative Report Procedure Date: Aug 22, 2018 Preoperative Diagnosis Respiratory failure Postoperative Diagnosis Respiratory failure Operation/Procedure Performed Tracheostomy Surgeon see signature line Editor Continuity And Script None Anesthesia Type: general Estimated Blood Loss: none Transfusion none Specimen None Grafts/Implants none Complications none Procedure Description Patient was placed in supine position prepped and draped in usual sterile fashion timeout was called and I started I made a 1 cm incision 1 fingerbreadth superior to the sternal notch incision was taken down to subcutaneous tissue which was then opened using some mom scissors access was gained into the trachea guidewire was advanced without any difficulties subcutaneous tissues and the trachea were dilated using progressively larger dilators endotracheal tube was removed 8 cuffed tracheostomy tube advanced into the trachea secured to skin using 4 2-0 nylon sutures and a trach tie protective foam sponge was placed under the trachea patient tolerated procedure well KRISTOFER BAKER MD Aug 22, 2018 19:26
--- NOTE | 2018-08-22 19:30 | PAC ---
Date/Time of Note Date/Time of Note DATE: 08/22/18 TIME: 19:29 Post-Anesthesia Notes Post-Anesthesia Note Last documented vital signs Vital Signs Date Temp Pulse Resp B/P (MAP) Pulse Ox O2 O2 Flow FiO2 Time Delivery Rate 08/22/18 99.7 129 25 139/79 100 Mechanical 19:00 (99) Ventilator 08/22/18 40 17:20 08/22/18 99.5 16:00 Activity: Other (paralysed ) Respiratory function: Other (Tracheostomy on Vent) Cardiovascular function: Other (ST) Mental status: Other (Sedated) Pain reasonably controlled: Yes Hydration appropriate: Yes Nausea/Vomiting absent: Yes SHAYE RECINOS MD Aug 22, 2018 19:29
[2018-08-22] MEDS: ATORVASTATIN 80 MG TAB PO SCH (20:04)
[2018-08-22] MEDS: CLOPIDOGREL 75 MG TAB NGT SCH (20:04)
[2018-08-22] MEDS: ASPIRIN 81 MG TAB NGT SCH (20:05)
[2018-08-22] MEDS ORDERED: ROCURONIUM 50 MG INJ ONE (20:18)
[2018-08-22] MEDS ORDERED: PROPOFOL 20 ML ONE (20:18)
[2018-08-22] MEDS ORDERED: SOD CHLORIDE 0.9% 1,000 ML IV SCH (23:30)
[2018-08-23] VITALS (47 sets, daily range): BP systolic 98–137; BP diastolic 60–89; PULSE 107–123; RESP 0–28
[2018-08-23] MEDS: PANTOPRAZOLE IV 80 MG in SOD CHLORIDE 0.9% 100 ML IV SCH ×3 (00:42→19:51)
[2018-08-23] MEDS: FENTAnyl (DRIP) 1000 mcg/100mL 100 ML IV SCH ×2 (01:46→14:32)
[2018-08-23] MEDS: IPRATROPIUM (HFA) 12.9 GM INHALER INH SCH ×4 (02:26→20:07)
[2018-08-23] MEDS: metroNIDAZOLE 500 MG/NS (PMX) 100 ML IVPB SCH ×3 (05:23→21:02)
[2018-08-23] MEDS: ARTIFICIAL TEARS 15 ML OPH BOTH EYES SCH ×4 (05:23→23:53)
[2018-08-23] MEDS: OCULAR LUBRICANT 3.5 GM OPH OINT BOTH EYES SCH ×4 (05:23→23:53)
--- NOTE | 2018-08-23 06:57 | CONS ---
Assessment/Plan Assessment/Plan Hospital Course 38 yo F w/ reported Hx of HTN and DM2 who is admitted to the [facility] ICU s/p a vfib cardiac arrest. She is now s/p cardiac catheterization w/ 2 coronary stents. now s/p targeted temperature therapy. s/p trach on 08/22 Neurology is consulted given persistent encephalopathy...which is likely multif actorial -- toxic-metabolic, medications, hypoxic-ischemic...and which has shown some improvement with time. MRI brain is notable for multiple bihemispheric infarcts... likely of cardioembolic origin in the context of her recent arrest. EEG is without epileptiform activity CUS is unrevealing. Ammonia, RPR level wnl. ESR >130 Echo on 08/05 in unrevealing. Anticardiolipin Abs are neg; other hypercoag panel is pending P: Cont ASA/Lipitor for secondary stroke prevention Cont medical management per primary Will follow clinically Consultation Date/Type/Reason Admit Date/Time Aug 04, 2018 at 23:10 Type of Consult Neurology Reason for Consultation stroke, coma Requesting Provider: HARPAL AGGARWAL MD Date/Time of Note DATE: 08/23/18 TIME: 06:54 24 HR Interval Summary Free Text/Dictation Continues icu care Exam Vital Signs Vitals Vital Signs Date Temp Pulse Resp B/P (MAP) Pulse Ox O2 O2 Flow FiO2 Time Delivery Rate 08/23/18 117 24 99 30 05:11 08/23/18 98.9 128/81 Mechanical 04:00 (97) Ventilator Intake and Output 08/22/18 08/22/18 08/23/18 1515:00 23:00 07:00 IntakeIntake Total 90 ml 175 ml 1020 ml OutputOutput Total 3125 ml 15 ml 75 ml BalanceBalance -3035 ml 160 ml 945 ml Exam PE: Gen Appearance: No Apparent Distress HEENT: Has trach Cardiovascular: Regular rate Abdomen: Soft Extremities: Dry NE: The patient was awake and alert. Able to mouth words. Follows simple axial and appendicular commands Cranial nerve examination was limited by mental status. Eyes were dysconjugate.. Pupils were equal and reactive to light. There was no afferent pupillary defect. Funduscopic examination was limited. Face was grossly symmet [place], w/ present corneal and cough reflexes. Tone was normal. Muscle bulk was normal. I did not see fasciculations. The patient had spontaneous movement of her hands and feet. Coordination and gait testing was limited by mental status. Arm and leg reflexes were within normal limits and symmetric. Alvarez's sign was absent. Plantar responses were flexor. RANDY GARCIA Aug 23, 2018 06:57 KAYCEE ESCOBEDO NP Aug 23, 2018 14:48
[2018-08-23] MEDS: ALBUTEROL HFA 8 GM INHALER INH SCH ×3 (07:08→20:07)
--- NOTE | 2018-08-23 07:40 | CONS ---
Consult Date/Type/Reason Admit Date/Time Aug 04, 2018 at 23:10 Initial Consult Date 08/05/18 Type of Consultation: cv Requesting Provider: HARPAL AGGARWAL MD Date/Time of Note DATE: 08/23/18 TIME: 07:36 Subjective Interventional cardiology follow-up progress note/critical care Subjective: Events noted discussed with the staff and physicians. Patient remains intubated on the vent . No V tachycardia or V fibrillation. BP is stable but pt is more tachycardic when weaning the sedation pt with bleeding at PEG trach sites. she denies any cp to me events noted s/p PCI 100% occluded LAD 08/04 S/P PCI LCX/ OM s/p trach 08/22/18 Objective: General: Obese female started with intubation on the vent HEENT: NC/AT. pupils are equal. round. NECK: . no stridor. CV: RRR. systolic murmur; no gallop or rubs. PULM: no wheezing + diffuse rhonchi. GI: Obese SOFT, NT, ND, no rebound or guarding s/pPEG Extremity: +B/L LE edema. no clubbing. neuro: opens her eyes responds appropriately and follows commands Psych: Calm now rectal: deferred EKG August 06, 2018 was personally within normal sinus rhythm. T wave inversions anterior and inferior leads ECG 08/07: NSR ST T abn c/w ant/lat ischemia CXR 08/14: Nonspecific patchy bilateral pulmonary opacity, mildly improved on the right. No pneumothorax. Endotracheal tube, nasogastric tube, and right-sided PICC line remain in place. Stable mild cardiomegaly. The osseous structures are remarkable for degenerative enthesopathy of the spine. Chest x-ray done August 06 shows:No evidence for active cardiopulmonary disease. CXR 08/19: Diffuse bilateral reticular nodular infiltrates unchanged. Question bronchopneumonia versus failure. ECHO personally reviewed Normal left ventricular cavity size. Normal left ventricular wall thickness. Ejection fraction is visually estimated at 55-65 %. Normal appearance of the mitral valve. Mitral valve is not well visualized. No mitral valve regurgitation is seen. Aortic valve not well visualized. No aortic regurgitation. Normal appearance of the tricuspid valve. Unable to obtain RVSP due to minimal presence of tricuspid regurgitation. No evidence of tricuspid regurgitation. Normal pericardium with no significant pericardial effusion. suboptimal study. Objective Vitals Vital Signs Date Temp Pulse Resp B/P (MAP) Pulse Ox O2 O2 Flow FiO2 Time Delivery Rate 08/23/18 117 24 99 30 05:11 08/23/18 98.9 128/81 Mechanical 04:00 (97) Ventilator Intake and Output 08/22/18 08/22/18 08/23/18 1414:59 22:59 06:59 IntakeIntake Total 185 ml 170 ml 1030 ml OutputOutput Total 3000 ml 140 ml 75 ml BalanceBalance -2815 ml 30 ml 955 ml Results/Medications Result Diagram: 08/23/18 0453 08/23/18 0453 Results 24 hrs Laboratory Tests Test 08/22/18 23:22 08/22/18 23:50 08/23/18 01:17 08/23/18 04:53 Hemoglobin 8.4 L 9.9 L Hematocrit 27.0 L 31.2 L Platelet Count 379 386 Prothrombin Time 16.1 H Prothrombin Time Ratio 1.3 INR International 1.28 Normalized Ratio Activated 35.9 H Partial Thromboplast Time White Blood Count 12.0 H Red Blood Count 3.44 L Mean Corpuscular Volume 90.7 Mean Corpuscular 28.8 L Hemoglobin Mean Corpuscular 31.7 L Hemoglobin Concent Red Cell Distribution 15.6 H Width Mean Platelet Volume 13.4 H Immature Granulocytes % 1.200 H Neutrophils % 77.4 H Lymphocytes % 12.0 L Monocytes % 7.1 Eosinophils % 1.2 Basophils % 1.1 Nucleated Red Blood 0.0 Cells % Immature Granulocytes # 0.140 H Neutrophils # 9.3 H Lymphocytes # 1.4 Monocytes # 0.9 Eosinophils # 0.1 Basophils # 0.1 Nucleated Red Blood 0.0 Cells # Sodium Level 143 Potassium Level 5.1 Chloride Level 105 Carbon Dioxide Level 23 Anion Gap 15 H Blood Urea Nitrogen 76 H Creatinine 4.23 H Est Glomerular Filtrat 12 L Rate mL/min Glucose Level 105 Calcium Level 8.4 Phosphorus Level 9.2 H Magnesium Level 2.1 Medications Current Medications Norepinephrine 250 ml @ 1.875 mls/ hr TITRATE IV Last administered on 08/10/18at 00:41; Admin Dose 5.625 MLS/HR; Start 08/04/18 at 23:15 Morphine Sulfate (morphine) 1 mg Q1H PRN IV PAIN Last administered on 3/29/19at 18:30; Admin Dose 1 MG; Start 08/04/18 at 23:30 Atorvastatin Calcium (Lipitor) 80 mg DAILY@21 PO Last administered on 08/22/18 20:04; Admin Dose 80 MG; Start 08/05/18 at 21:00 Nitroglycerin/ Dextrose 250 ml @ 1.5 mls/hr TITRATE IV Last administered on 08/05/18 14:22; Admin Dose 72 MLS/HR; Start 08/05/18 at 01:00 Miscellaneous Information 1 ea NOTE XX ; Start 08/05/18 at 09:00 Acetaminophen (Tylenol Supp) 650 mg Q4H PRN NC TEMP > 37C Last administered on 08/09/18 04:37; Admin Dose 650 MG; Start 08/05/18 at 11:00 Acetaminophen (Tylenol Liquid) 650 mg Q4H PRN PO TEMP > 37C Last administered on 08/22/18 20:04; Admin Dose 650 MG; Start 08/05/18 at 11:00 Meperidine HCl (Demerol) 25 mg Q4H PRN IV POST OPERATIVE SHIVERING Last administered on 08/05/18 16:31; Admin Dose 25 MG; Start 08/05/18 at 11:00 Eye Lubricant (Akwa Oint) 1 applic Q6 BOTH EYES Last administered on 08/23/18 05:23; Admin Dose 1 APPLIC; Start 08/05/18 at 12:00 Eye Lubricant (Artificial Tears Oph) 2 drop Q6 BOTH EYES Last administered on 08/23/18 05:23; Admin Dose 2 DROP; Start 08/05/18 at 12:00 Insulin Human Regular 100 unit/ Sodium Chloride 100 ml @ 0 mls/hr PER PROTOCOL IV ; Start 08/05/18 at 12:00 Miscellaneous Information (* Miscellaneous Pharmacy Order) Treatment of Hypoglycemia: 1.BG 51... Per protocol XX ; Start 08/05/18 at 12:00 Dextrose (D50w Syringe) 25 ml Q15M PRN IV .DECREASED GLUCOSE; Start 08/05/18 at 12:00 Dextrose (D50w Syringe) 50 ml Q15M PRN IV .DECREASED GLUCOSE; Start 08/05/18 at 12:00 Fentanyl 100 ml @ 2.5 mls/hr TITRATE IV Last administered on 08/23/18 01:46; Admin Dose 10 MLS/HR; Start 08/05/18 at 12:00 Meperidine HCl (Demerol) 12.5 mg Q2H PRN IV POST OPERATIVE SHIVERING; Start 08/05/18 at 17:00 Aspirin (Aspirin) 81 mg DAILY NGT Last administered on 08/22/18 20:05; Admin Dose 81 MG; Start 08/06/18 at 09:00 Multivitamins (Multivitamin) 30 ml DAILY NGT Last administered on 08/20/18 08:54; Admin Dose 30 ML; Start 08/09/18 at 09:00 Zinc Sulfate (Zinc Sulfate) 220 mg DAILY NGT Last administered on 08/20/18 08:54; Admin Dose 220 MG; Start 08/09/18 at 09:00 Folic Acid (Folic Acid) 1 mg DAILY NGT Last administered on 08/20/18 08:54; Admin Dose 1 MG; Start 08/09/18 at 09:00 Ascorbic Acid (Vitamin C) 500 mg DAILY NGT Last administered on 08/20/18 08:54; Admin Dose 500 MG; Start 08/09/18 at 09:00 Albuterol (Ventolin Hfa) 4 puff Q6HWA RESP THERAPY INH Last administered on 08/23/18 07:08; Admin Dose 4 PUFF; Start 08/09/18 at 14:00 Ipratropium Moseley (Atrovent Hfa) 4 puff Q6H RESP THERAPY INH Last administe red on 08/23/18 07:08; Admin Dose 4 PUFF; Start 08/09/18 at 14:00 IV Flush (NS 10 ml) 10 ml PRN PRN IV IV PROTOCOL; Start 08/11/18 at 16:30 Heparin Sodium (Porcine) (Heparin (1000 Units/ml)) 3,000 unit PRN PRN CATHETER Dialysis Last administered on 08/22/18 13:36; Admin Dose 3,000 UNIT; Start 07/21 09/07 at 14:30 Labetalol HCl (Labetalol) 10 mg Q4H PRN IV ELEVATED SYSTOLIC BP > 180 Last administered on 08/20/18 16:54; Admin Dose 10 MG; Start 08/14/18 at 19:00 Midazolam HCl 50 ml @ 1 mls/hr TITRATE IV Last administered on 08/20/18 00:16; Admin Dose 5 MLS/HR; Start 08/15/18 at 11:00 Hydralazine HCl (Apresoline) 20 mg Q2 PRN IV ELEVATED SYSTOLIC BP Last administered on 08/22/18 16:18; Admin Dose 20 MG; Start 08/16/18 at 08:00 Metronidazole 100 ml @ 100 mls/hr Q8 IVPB Last administered on 08/23/18 05:23; Admin Dose 100 MLS/HR; Start 08/16/18 at 22:00 Carvedilol (Coreg) 12.5 mg Q6H PO Last administered on 08/23/18 06:34; Admin Dose 12.5 MG; Start 08/17/18 at 01:00 Docusate Sodium (Colace Liquid Cup) 100 mg BID GTB Last administered on 08/22/18 20:03; Admin Dose 100 MG; Start 08/18/18 at 09:00 Clopidogrel Bisulfate (plaVIX) 75 mg DAILY NGT Last administered on 08/22/18 20:04; Admin Dose 75 MG; Start 08/18/18 at 13:30 Cefazolin Sodium 50 ml @ 100 mls/hr Q24H IVPB Last administered on 08/22/18 13:50; Admin Dose 100 MLS/HR; Start 08/19/18 at 14:00 Levofloxacin/ Dextrose 50 ml @ 50 mls/hr Q48H IVPB Last administered on 08/21/18 12:52; Admin Dose 50 MLS/HR; Start 08/19/18 at 12:30 Rifaximin (Xifaxan) 200 mg TID PO Last administered on 08/22/18 20:08; Admin Dose 200 MG; Start 08/19/18 at 13:00 Albumin Human 100 ml @ 100 mls/hr DURING DIALYSIS PRN IV HYPOTENSION DURING HD Last administered on 08/22/18 10:24; Admin Dose 100 MLS/HR; Start 08/22/18 at 10:00 Pantoprazole 80 mg/Sodium Chloride 100 ml @ 10 mls/hr Q10H IV Last administered on 08/23/18 00:42; Admin Dose 10 MLS/HR; Start 08/23/18 at 00:00 Sodium Chloride 1,000 ml @ 75 mls/hr [id number] IV Last administered on 08/22/18at 23:30; Admin Dose 75 MLS/HR; Start 08/22/18 at 23:30 Desmopressin Acetate 27.7 mcg/ Sodium Chloride 56.925 ml @ 113.85 mls/hr ONCE ONCE IVPB ; Start 08/23/18 at 08:30; Stop 08/23/18 at 08:59 Assessment/Plan Hospital Course (Demo Recall) 1. s/p V. fib cardiac arrest 2. Acute myocardial infarction 3. Status post emergent PCI of the 100% occluded LAD as well as PTCA of the diagonal and PCI LCX/ OM 4. Diabetes 5. Respiratory failure status post intubation on the vent 6. Hypertension 7. Renal failure : acute on chronic 8. Likely history of congestive heart failure 9. Dyslipidemia 10. Encephalopathy: Clear anoxic brain injury on hypothermia protocol 11. Morbid obesity 12. Anemia 13. elevated LFT 14. fever, bacteremia pneumonia 15. Malnutrition, anasarca . 16. septic shock and bacteremia 17. oropharyngeal bleedig 18. CVA Recommendations: Continue with aspirin plavix Brilinta was changed to plavix due to recurrent oropharyngeal bleeding as well as patient currently with renal failure on dialysis. BUT will be at high risk of stent thrombosis if stop the plavix . advised not to stop the plavix Antibiotic management as per ID recommendation HD as per renal Vent support respiratory care as per internal medicine and pulmonary co nsultants. AWAITING Trach cont Coreg as tolerated/needed Monitor renal function. f/u renal consult rec regarding hemodialysis PPI . 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 WILL consider PCI RCA at a later time if it is felt by renal that renal function is not expected to recover and when the bleeding is stopped CODE STATUS is DNR now. Discussed with Dr. Mason. Consider changing the CODE STATUS to full code now that Neurologically she has significantly improved More than 34 minutes of critical care time was for management treatment is critically patient excluding any procedures Thank you for his referral. We will continue to follow along with you LOIS JOHNSON MD [facility] LOIS JOHNSON MD Aug 23, 2018 07:40
--- NOTE | 2018-08-23 08:24 | PN ---
DATE: 08/23/2018 SUBJECTIVE: The patient had a trach placed yesterday. The patient noted to have extensive amount of tracheal bleed. The patient did have hemodialysis yesterday, tolerated well. No other acute events noted. OBJECTIVE: VITAL SIGNS: Blood pressure is 128/81, respirations 21, pulse 116, temperature 98.9. HEENT: Head is normocephalic. NECK: Shows trach. HEART: Regular rate. LUNGS: Show diminished breath sounds at the base. ABDOMEN: Soft, obese, nontender to palpation. EXTREMITIES: Negative for clubbing, cyanosis, positive edema. DERMATOLOGIC: No rashes. MUSCULOSKELETAL: No joint effusion. NEUROLOGIC: No change in exam. MEDICATIONS: The patient's medications have been reviewed. LABORATORY DATA: Shows white count 12.0, hemoglobin 9.9, platelet count 386. The patient's BNP was reviewed. IMAGING STUDIES: Reviewed. ASSESSMENT AND PLAN: 1. Anuric acute kidney injury with unknown baseline creatinine. Etiology of acute kidney injury is secondary to acute tubular necrosis. The patient remains dialysis dependent. Plan is for hemodialys is tomorrow for solute clearance and volume removal. 2. Volume overload. Continue ultrafiltration with dialysis. 3. Anemia. Monitor hemoglobin and hematocrit levels. We will continue Epogen. 4. Tracheal bleed, etiology is secondary to recent surgery, possible component of uremic bleeding. The patient will be given 1 dose of DDAVP 0.3 mcg/kg x1. We will monitor closely. 5. Mineral bone disorder. The patient remains hyperphosphatemic. Continue dialysis for solute [place]. Continue phosphate binders. 6. Ventilator-dependent respiratory failure. Vent settings and ABG was reviewed. Continue to monit or. 7. ST elevated myocardial infarction. The patient is status post percutaneous coronary intervention . Continue medical management. 8. Sepsis, status post shock. The patient is completing antibiotic course. 9. Acute encephalopathy, etiology is toxic metabolic, also secondary to acute cerebrovascular accide nt. Continue medical management. 10. Acute cerebrovascular accident. Continue current treatment plan. 11. Dysphagia. Continue tube feeding. 12. Morbid obesity. 13. Status post cardiac arrest. Please note I spent over 30 minutes of critical care time with this patient. Dictated By: BHUMI REDDY DO NR/NTS Conf#: [id number] DID#: [id number] CC: DANIAL TUCKER MD; THOMAS RILEY MD; LAUREN GREWAL MD;*[facility]*
[2018-08-23] MEDS ORDERED: DESMOPRESSIN IVPB ONE (08:30)
[2018-08-23] MEDS ORDERED: SOD CHLORIDE 0.9% IVPB ONE (08:30)
--- NOTE | 2018-08-23 08:37 | CONS ---
Assessment/Plan Assessment/Plan Assessment/Plan (Daily) Discussed with staff and Dr. Rashid and Dr Bihsop this morning. Fully agree that patient's CODE STATUS should be obtained a full code once again. Will discuss with family members in an interim time change from DO NOT RESUSCITATE to full code. At this time I will not wait for family's permission as patient has made a significant neurological recovery and it would be unethical to not code her si nce she is significantly improving. If family disagrees bioethics consultation, but I do not think that patient's father will disagree. He was the only member of the family that was initially in favor of comfort measures but ultimately settled to DO NOT RESUSCITATE and continue with aggressive intervention. Other comorbid medical problems Status post V. tach cardiac arrest Emergent PCI of 100% occluded LAD Respiratory failure post intubation post trach Renal failure Encephalopathy, delirium not clearing Orbit obesity Septic shock CVA Consultation Date/Type/Reason Admit Date/Time Aug 04, 2018 at 23:10 Date/Time of Note DATE: 08/23/18 TIME: 08:35 Hx of Present Illness V. fib cardiac arrest secondary to STEMI Acute renal failure Hemodialysis Acute bilateral CVA Encephalopathy probably secondary to cardiac arrest Septic shock Now significantly improving from a neurological standpoint Past Medical History Medical History: coronary artery disease, diabetes, hypertension Medications Current Medications Norepinephrine 250 ml @ 1.875 mls/ hr TITRATE IV Last administered on 08/10/18at 00:41; Admin Dose 5.625 MLS/HR; Start 08/04/18 at 23:15 Morphine Sulfate (morphine) 1 mg Q1H PRN IV PAIN Last administered on 08/17/18at 18:30; Admin Dose 1 MG; Start 08/04/18 at 23:30 Atorvastatin Calcium (Lipitor) 80 mg DAILY@21 PO Last administered on 08/22/18at 20:04; Admin Dose 80 MG; Start 08/05/18 at 21:00 Nitroglycerin/ Dextrose 250 ml @ 1.5 mls/hr TITRATE IV Last administered on 08/05/18at 14:22; Admin Dose 72 MLS/HR; Start 08/05/18 at 01:00 Miscellaneous Information 1 ea NOTE XX ; Start 08/05/18 at 09:00 Acetaminophen (Tylenol Supp) 650 mg Q4H PRN [place] TEMP > 37C Last administered on 08/09/18 04:37; Admin Dose 650 MG; Start 08/05/18 at 11:00 Acetaminophen (Tylenol Liquid) 650 mg Q4H PRN PO TEMP > 37C Last administered on 08/22/18 20:04; Admin Dose 650 MG; Start 08/05/18 at 11:00 Meperidine HCl (Demerol) 25 mg Q4H PRN IV POST OPERATIVE SHIVERING Last administered on 08/05/18 16:31; Admin Dose 25 MG; Start 08/05/18 at 11:00 Eye Lubricant (Akwa Oint) 1 applic Q6 BOTH EYES Last administered on 08/23/18 05:23; Admin Dose 1 APPLIC; Start 08/05/18 at 12:00 Eye Lubricant (Artificial Tears Oph) 2 drop Q6 BOTH EYES Last administered on 08/23/18 05:23; Admin Dose 2 DROP; Start 08/05/18 at 12:00 Insulin Human Regular 100 unit/ Sodium Chloride 100 ml @ 0 mls/hr PER PROTOCOL IV ; Start 08/05/18 at 12:00 Miscellaneous Information (* Miscellaneous Pharmacy Order) Treatment of Hypoglycemia: 1.BG 51... Per protocol XX ; Start 08/05/18 at 12:00 Dextrose (D50w Syringe) 25 ml Q15M PRN IV .DECREASED GLUCOSE; Start 08/05/18 at 12:00 Dextrose (D50w Syringe) 50 ml Q15M PRN IV .DECREASED GLUCOSE; Start 08/05/18 at 12:00 Fentanyl 100 ml @ 2.5 mls/hr TITRATE IV Last administered on 08/23/18 01:46; Admin Dose 10 MLS/HR; Start 08/05/18 at 12:00 Meperidine HCl (Demerol) 12.5 mg Q2H PRN IV POST OPERATIVE SHIVERING; Start 08/05/18 at 17:00 Aspirin (Aspirin) 81 mg DAILY NGT Last administered on 08/22/18 20:05; Admin Dose 81 MG; Start 08/06/18 at 09:00 Multivitamins (Multivitamin) 30 ml DAILY NGT Last administered on 08/20/18 08:54; Admin Dose 30 ML; Start 08/09/18 at 09:00 Zinc Sulfate (Zinc Sulfate) 220 mg DAILY NGT Last administered on 08/20/18 08:54; Admin Dose 220 MG; Start 08/09/18 at 09:00 Folic Acid (Folic Acid) 1 mg DAILY NGT Last administered on 08/20/18 08:54; Admin Dose 1 MG; Start 08/09/18 at 09:00 Ascorbic Acid (Vitamin C) 500 mg DAILY NGT Last administered on 08/20/18 08:54; Admin Dose 500 MG; Start 08/09/18 at 09:00 Albuterol (Ventolin Hfa) 4 puff Q6HWA RESP THERAPY INH Last administered on 08/23/18 07:08; Admin Dose 4 PUFF; Start 08/09/18 at 14:00 Ipratropium Felton (Atrovent Hfa) 4 puff Q6H RESP THERAPY INH Last administered on 08/23/18 07:08; Admin Dose 4 PUFF; Start 08/09/18 at 14:00 IV Flush (NS 10 ml) 10 ml PRN PRN IV IV PROTOCOL; Start 08/11/18 at 16:30 Heparin Sodium (Porcine) (Heparin (1000 Units/ml)) 3,000 unit PRN PRN CATHETER Dialysis Last administered on 08/22/18 13:36; Admin Dose 3,000 UNIT; Start 08/12/18 at 14:30 Labetalol HCl (Labetalol) 10 mg Q4H PRN IV ELEVATED SYSTOLIC BP > 180 Last administered on 08/20/18 16:54; Admin Dose 10 MG; Start 08/14/18 at 19:00 Midazolam HCl 50 ml @ 1 mls/hr TITRATE IV Last administered on 08/20/18 00:16; Admin Dose 5 MLS/HR; Start 08/15/18 at 11:00 Hydralazine HCl (Apresoline) 20 mg Q2 PRN IV ELEVATED SYSTOLIC BP Last admi nistered on 08/22/18 16:18; Admin Dose 20 MG; Start 08/16/18 at 08:00 Metronidazole 100 ml @ 100 mls/hr Q8 IVPB Last administered on 08/23/18 05:23; Admin Dose 100 MLS/HR; Start 08/16/18 at 22:00 Carvedilol (Coreg) 12.5 mg Q6H PO Last administered on 08/23/18 06:34; Admin Dose 12.5 MG; Start 08/17/18 at 01:00 Docusate Sodium (Colace Liquid Cup) 100 mg BID GTB Last administered on 08/22/18at 20:03; Admin Dose 100 MG; Start 08/18/18 at 09:00 Clopidogrel Bisulfate (plaVIX) 75 mg DAILY NGT Last administered on 08/22/18at 20:04; Admin Dose 75 MG; Start 08/18/18 at 13:30 Cefazolin Sodium 50 ml @ 100 mls/hr Q24H IVPB Last administered on 08/22/18 13:50; Admin Dose 100 MLS/HR; Start 08/19/18 at 14:00 Levofloxacin/ Dextrose 50 ml @ 50 mls/hr Q48H IVPB Last administered on 08/21/18 12:52; Admin Dose 50 MLS/HR; Start 08/19/18 at 12:30 Rifaximin (Xifaxan) 200 mg TID PO Last administered on 08/22/18 20:08; Admin Dose 200 MG; Start 08/19/18 at 13:00 Albumin Human 100 ml @ 100 mls/hr DURING DIALYSIS PRN IV HYPOTENSION DURING HD Last administered on 08/22/18 10:24; Admin Dose 100 MLS/HR; Start 08/22/18 at 10:00 Pantoprazole 80 mg/Sodium Chloride 100 ml @ 10 mls/hr Q10H IV Last administered on 08/23/18 00:42; Admin Dose 10 MLS/HR; Start 08/23/18 at 00:00 Desmopressin Acetate 27.7 mcg/ Sodium Chloride 56.925 ml @ 113.85 mls/hr ONCE ONCE IVPB ; Start 08/23/18 at 08:30; Stop 08/23/18 at 08:59 Sevelamer Carbonate (Renvela) 2.4 gm WITH MEALS GTB ; Start 08/23/18 at 11:30 Allergies: Coded Allergies: Unknown: Unable to obtain (Unverified , 08/04/18) Past Surgical History Past Surgical Hx: no surgical history, other Social History Alcohol Use: none Smoking Status: Never smoker Drug Use: none Exam/Review of Systems Exam Vitals Vital Signs Date Temp Pulse Resp B/P (MAP) Pulse Ox O2 O2 Flow FiO2 Time Delivery Rate 08/23/18 98.5 111 18 119/65 96 Mechanical 08:00 (83) Ventilator 08/23/18 30 05:11 Intake and Output 08/22/18 08/22/18 08/23/18 1515:00 23:00 07:00 IntakeIntake Total 90 ml 175 ml 1020 ml OutputOutput Total 3125 ml 15 ml 75 ml BalanceBalance -3035 ml 160 ml 945 ml Respiratory: No clear to auscultation, No normal air movement, No congested cough, No crackles/rales, No diminished breath sounds, No intercostal retraction, No labored breathing, No respirations, No tactile fremitus, No wheezing, No other Cardiovascular: No regular rate and rhythm, No nl pulses, No bruits, No diastolic murmur, No edema, No gallop, No irregular rhythm, No jugular venous distention (JVD), No murmurs/extra sounds, No rub, No systolic murmur, No S3, No S4, No other Neurological: other (Respond to simple commands tracks me ,mouthing words, moving all extremities, smiling even on the ventilator, cranial nerves II through XII grossly intact sensory findings grossly intact oculocephalics grossly intact ) Results Result Diagram: 08/23/18 0453 08/23/18 0453 Results 24hrs Laboratory Tests Test 08/22/18 23:22 08/22/18 23:50 08/23/18 01:17 08/23/18 04:53 Hemoglobin 8.4 L 9.9 L Hematocrit 27.0 L 31.2 L Platelet Count 379 386 Prothrombin Time 16.1 H Prothrombin Time 1.3 Ratio INR International 1.28 Normalized Ratio Activated 35.9 H Partial Thrombopl ast Time White Blood Count 12.0 H Red Blood Count 3.44 L Mean Corpuscular 90.7 Volume Mean Corpuscular 28.8 L Hemoglobin Mean Corpuscular 31.7 L Hemoglobin Concen t Red Cell 15.6 H Distribution Width Mean Platelet 13.4 H Volume Immature 1.200 H Granulocytes % Neutrophils % 77.4 H Lymphocytes % 12.0 L Monocytes % 7.1 Eosinophils % 1.2 Basophils % 1.1 Nucleated Red 0.0 Blood Cells % Immature 0.140 H Granulocytes # Neutrophils # 9.3 H Lymphocytes # 1.4 Monocytes # 0.9 Eosinophils # 0.1 Basophils # 0.1 Nucleated Red 0.0 Blood Cells # Sodium Level 143 Potassium Level 5.1 Chloride Level 105 Carbon Dioxide 23 Level Anion Gap 15 H Blood Urea 76 H Nitrogen Creatinine 4.23 H Est Glomerular 12 L Filtrat Rate mL/min Glucose Level 105 Calcium Level 8.4 Phosphorus Level 9.2 H Magnesium Level 2.1 Test 08/23/18 07:00 08/23/18 08:10 Blood Gas Blood arterial Specimen Source Arterial Blood 08/23/2018 7:30:00 Date Drawn AM Arterial Blood pH 7.367 (Temp corrected) Arterial Blood 38.5 pCO2 (Temp correct) Arterial Blood 73.7 L pO2 (Temp corrected) Arterial Blood 21.6 L HCO3 Arterial Blood -3.4 L Base Excess Arterial Blood 93.2 L Oxygen Saturation Dajuan Test ACCEPTAB Arterial Blood Left Radial Gas Puncture Site Arterial 0.3 Blood Carboxyhemo globin Arterial Blood 0.1 Methemoglobin Blood Gas A-a O2 95.0 H Differential Oxyhemoglobin 92.8 L Percent Blood Gas 37.0 Temperature Blood Gas 20.0 Respiration Rate Blood Gas Actual 21 Respiration Rate Blood Gas VENT - AC Modality FiO2 30.0 Blood Gas Tidal 400.0 Volume Blood Gas Low 5.0 PEEP Setting Blood Gas TM Notified Whom Blood Gas 08/23/2018 8:13:57 Notified Time AM Lab Scanned REFERENCE LAB Report Medications Medication Current Medications Norepinephrine 250 ml @ 1.875 mls/ hr TITRATE IV Last administered on 08/10/18at 00:41; Admin Dose 5.625 MLS/HR; Start 08/04/18 at 23:15 Morphine Sulfate (morphine) 1 mg Q1H PRN IV PAIN Last administered on 08/17/18at 18:30; Admin Dose 1 MG; Start 08/04/18 at 23:30 Atorvastatin Calcium (Lipitor) 80 mg DAILY@21 PO Last administered on 08/22/18at 20:04; Admin Dose 80 MG; Start 08/05/18 at 21:00 Nitroglycerin/ Dextrose 250 ml @ 1.5 mls/hr TITRATE IV Last administered on 08/05/18at 14:22; Admin Dose 72 MLS/HR; Start 08/05/18 at 01:00 Miscellaneous Information 1 ea NOTE XX ; Start 08/05/18 at 09:00 Acetaminophen (Tylenol Supp) 650 mg Q4H PRN VA TEMP > 37C Last administered on 08/09/18 04:37; Admin Dose 650 MG; Start 08/05/18 at 11:00 Acetaminophen (Tylenol Liquid) 650 mg Q4H PRN PO TEMP > 37C Last administered on 08/22/18 20:04; Admin Dose 650 MG; Start 08/05/18 at 11:00 Meperidine HCl (Demerol) 25 mg Q4H PRN IV POST OPERATIVE SHIVERING Last administered on 08/05/18 16:31; Admin Dose 25 MG; Start 08/05/18 at 11:00 Eye Lubricant (Akwa Oint) 1 applic Q6 BOTH EYES Last administered on 08/23/18 05:23; Admin Dose 1 APPLIC; Start 08/05/18 at 12:00 Eye Lubricant (Artificial Tears Oph) 2 drop Q6 BOTH EYES Last administered on 08/23/18 05:23; Admin Dose 2 DROP; Start 08/05/18 at 12:00 Insulin Human Regular 100 unit/ Sodium Chloride 100 ml @ 0 mls/hr PER PROTOCOL IV ; Start 08/05/18 at 12:00 Miscellaneous Information (* Miscellaneous Pharmacy Order) Treatment of Hypoglycemia: 1.BG 51... Per protocol XX ; Start 08/05/18 at 12:00 Dextrose (D50w Syringe) 25 ml Q15M PRN IV .DECREASED GLUCOSE; Start 08/05/18 at 12:00 Dextrose (D50w Syringe) 50 ml Q15M PRN IV .DECREASED GLUCOSE; Start 08/05/18 at 12:00 Fentanyl 100 ml @ 2.5 mls/hr TITRATE IV Last administered on 08/23/18 01:46; Admin Dose 10 MLS/HR; Start 08/05/18 at 12:00 Meperidine HCl (Demerol) 12.5 mg Q2H PRN IV POST OPERATIVE SHIVERING; Start 08/05/18 at 17:00 Aspirin (Aspirin) 81 mg DAILY NGT Last administered on 08/22/18 20:05; Admin Dose 81 MG; Start 08/06/18 at 09:00 Multivitamins (Multivitamin) 30 ml DAILY NGT Last administered on 08/20/18 08:54; Admin Dose 30 ML; Start 08/09/18 at 09:00 Zinc Sulfate (Zinc Sulfate) 220 mg DAILY NGT Last administered on 08/20/18 08:54; Admin Dose 220 MG; Start 08/09/18 at 09:00 Folic Acid (Folic Acid) 1 mg DAILY NGT Last administered on 08/20/18 08:54; Admin Dose 1 MG; Start 08/09/18 at 09:00 Ascorbic Acid (Vitamin C) 500 mg DAILY NGT Last administered on 08/20/18 08:54; Admin Dose 500 MG; Start 08/09/18 at 09:00 Albuterol (Ventolin Hfa) 4 puff Q6HWA RESP THERAPY INH Last administered on 08/23/18 07:08; Admin Dose 4 PUFF; Start 08/09/18 at 14:00 Ipratropium Felton (Atrovent Hfa) 4 puff Q6H RESP THERAPY INH Last administered on 08/23/18 07:08; Admin Dose 4 PUFF; Start 08/09/18 at 14:00 IV Flush (NS 10 ml) 10 ml PRN PRN IV IV PROTOCOL; Start 08/11/18 at 16:30 Heparin Sodium (Porcine) (Heparin (1000 Units/ml)) 3,000 unit PRN PRN CATHETER Dialysis Last administered on 08/22/18 13:36; Admin Dose 3,000 UNIT; Start 08/12/18 at 14:30 Labetalol HCl (Labetalol) 10 mg Q4H PRN IV ELEVATED SYSTOLIC BP > 180 Last administered on 08/20/18 16:54; Admin Dose 10 MG; Start 08/14/18 at 19:00 Midazolam HCl 50 ml @ 1 mls/hr TITRATE IV Last administered on 08/20/18 00:16; Admin Dose 5 MLS/HR; Start 08/15/18 at 11:00 Hydralazine HCl (Apresoline) 20 mg Q2 PRN IV ELEVATED SYSTOLIC BP Last administered on 08/22/18 16:18; Admin Dose 20 MG; Start 08/16/18 at 08:00 Metronidazole 100 ml @ 100 mls/hr Q8 IVPB Last administered on 08/23/18 05:23; Admin Dose 100 MLS/HR; Start 08/16/18 at 22:00 Carvedilol (Coreg) 12.5 mg Q6H PO Last administered on 08/23/18 06:34; Admin Dose 12.5 MG; Start 08/17/18 at 01:00 Docusate Sodium (Colace Liquid Cup) 100 mg BID GTB Last administered on 08/22/18 20:03; Admin Dose 100 MG; Start 08/18/18 at 09:00 Clopidogrel Bisulfate (plaVIX) 75 mg DAILY NGT Last administered on 08/22/18 20:04; Admin Dose 75 MG; Start 08/18/18 at 13:30 Cefazolin Sodium 50 ml @ 100 mls/hr Q24H IVPB Last administered on 08/22/18 13:50; Admin Dose 100 MLS/HR; Start 08/19/18 at 14:00 Levofloxacin/ Dextrose 50 ml @ 50 mls/hr Q48H IVPB Last administered on 08/21/18 12:52; Admin Dose 50 MLS/HR; Start 08/19/18 at 12:30 Rifaximin (Xifaxan) 200 mg TID PO Last administered on 08/22/18 20:08; Admin Dose 200 MG; Start 08/19/18 at 13:00 Albumin Human 100 ml @ 100 mls/hr DURING DIALYSIS PRN IV HYPOTENSION DURING HD Last administered on 08/22/18 10:24; Admin Dose 100 MLS/HR; Start 08/22/18 at 10:00 Pantoprazole 80 mg/Sodium Chloride 100 ml @ 10 mls/hr Q10H IV Last administered on 08/23/18 00:42; Admin Dose 10 MLS/HR; Start 08/23/18 at 00:00 Desmopressin Acetate 27.7 mcg/ Sodium Chloride 56.925 ml @ 113.85 mls/hr ONCE ONCE IVPB ; Start 08/23/18 at 08:30; Stop 08/23/18 at 08:59 Sevelamer Carbonate (Renvela) 2.4 gm WITH MEALS GTB ; Start 08/23/18 at 11:30 TIEN HENRY Aug 23, 2018 08:37
[2018-08-23] MEDS: DOCUSATE SODIUM 10 MG/ML (10ML CUP) GTB SCH ×2 (09:00→20:21)
--- NOTE | 2018-08-23 09:10 | PN ---
Date/Time of Note Date/Time of Note DATE: 08/23/18 TIME: 09:10 Assessment/Plan VTE Prophylaxis Risk score (from Nsg)>0 risk: 7 SCD applied (from Nsg): Yes Pharmacological prophylaxis: other Lines/Catheters IV Catheter Type (from Nrsg): Central Line Central line still needed: Yes Urinary Cath still in place: Yes Reason Cath still needed: other (indicate) Assessment/Plan Assessment/Plan 1. Acute hypoxic respiratory failure - Currently trach to vent with plans to wean as tolerated given mentation significantly improved this am - Pulm on board for vent management. Appreciate consultation - Dr. Wilson consultation appreciated - GI consultation appreciated for PEG placement 2. Acute toxic/metabolic encephalopathy- improvement - significantly improved this am and following simple commands, answering simple questions with head nods and shakes - Neurology on board and appreciate recommendations. Imaging of head noted with bilateral CVA and most likely component of anoxic encephalopathy due to cardiac arrest 3. Bilateral CVA - Found on MRI, likely thromboembolic secondary to cardiopulmonary arrest per neurology - Neuro input appreciated and on anticoagulation 4. Anemia, blood loss and renal disease- stable - no further episodes of bleeding appreciated. - ENT consultation appreciated. - Hgb remains stable and no need for transfusion at this time 5. Bilateral Pneumonia - CXR noted - Pulm on board and appreciate recommendations. Will continue current management 6. Septic shock secondary to PNA and bacteremia- resolved - WBC continues trending downward - Blood cultures and sputum culture results noted. - ID on board 7. CAD s/p PCI x2 - Cardiology on board and appreciate recommendations. Stressed importance of continuing DAPT given recent stent placements and high risk of restenosis - s/p emergent Cath 08/05 with successful PTCA and stenting of proximal and mid LAD, PTCA of the large first diagonal and thrombectomy of the LAD - Repeat PCI on 08/07 performed with stenting to LCx - plans for stenting of RCA prior to discharge if possible 8. Renal failure on HD - Nephrology on board and appreciate recommendations. Continue HD - secondary to septic shock, ATN vs prerenal vs contrast induced nephropathy - will avoid nephrotoxic agents 9. Diabetes - A1c noted and no need to continue accuchecks 10. V-fib cardiac arrest secondary to STEMI - Completed hypothermia protocol - unknown how long patient was down for in the field 11. Disposition - Will continue weaning from Fentanyl prior to down grade to telemetry. Continue weaning from vent as tolerated - CM on board for placement >30 minutes of critical care time spent with patient. Result Diagram: 08/23/18 0453 08/23/18 0453 Results 24hrs Laboratory Tests Test 08/22/18 23:22 08/22/18 23:50 08/23/18 01:17 08/23/18 04:53 Hemoglobin 8.4 L 9.9 L Hematocrit 27.0 L 31.2 L Platelet Count 379 386 Prothrombin Time 16.1 H Prothrombin Time 1.3 Ratio INR International 1.28 Normalized Ratio Activated 35.9 H Partial Thrombopl ast Time White Blood Count 12.0 H Red Blood Count 3.44 L Mean Corpuscular 90.7 Volume Mean Corpuscular 28.8 L Hemoglobin Mean Corpuscular 31.7 L Hemoglobin Concen t Red Cell 15.6 H Distribution Width Mean Platelet 13.4 H Volume Immature 1.200 H Granulocytes % Neutrophils % 77.4 H Lymphocytes % 12.0 L Monocytes % 7.1 Eosinophils % 1.2 Basophils % 1.1 Nucleated Red 0.0 Blood Cells % Immature 0.140 H Granulocytes # Neutrophils # 9.3 H Lymphocytes # 1.4 Monocytes # 0.9 Eosinophils # 0.1 Basophils # 0.1 Nucleated Red 0.0 Blood Cells # Sodium Level 143 Potassium Level 5.1 Chloride Level 105 Carbon Dioxide 23 Level Anion Gap 15 H Blood Urea 76 H Nitrogen Creatinine 4.23 H Est Glomerular 12 L Filtrat Rate mL/min Glucose Level 105 Calcium Level 8.4 Phosphorus Level 9.2 H Magnesium Level 2.1 Test 08/23/18 07:00 08/23/18 08:10 Blood Gas Blood arterial Specimen Source Arterial Blood 08/23/2018 7:30:00 Date Drawn AM Arterial Blood pH 7.367 (Temp corrected) Arterial Blood 38.5 pCO2 (Temp correct) Arterial Blood 73.7 L pO2 (Temp corrected) Arterial Blood 21.6 L HCO3 Arterial Blood -3.4 L Base Excess Arterial Blood 93.2 L Oxygen Saturation Dajuan Test ACCEPTAB Arterial Blood Left Radial Gas Puncture Site Arterial 0.3 Blood Carboxyhemo globin Arterial Blood 0.1 Methemoglobin Blood Gas A-a O2 95.0 H Differential Oxyhemoglobin 92.8 L Percent Blood Gas 37.0 Temperature Blood Gas 20.0 Respiration Rate Blood Gas Actual 21 Respiration Rate Blood Gas VENT - AC Modality FiO2 30.0 Blood Gas Tidal 400.0 Volume Blood Gas Low 5.0 PEEP Setting Blood Gas TM Notified Whom Blood Gas 08/23/2018 8:13:57 Notified Time AM Lab Scanned REFERENCE LAB Report Subjective 24 Hr Interval Summary Free Text/Dictation Patients mentation significantly improved this am. Answering questions by nodding and shaking head. Trying to mouth responses but unable to understand. Following simple commands as able. Had some bleeding from trach but improved. Exam/Review of Systems Exam Vitals Vital Signs Date Temp Pulse Resp B/P (MAP) Pulse Ox O2 O2 Flow FiO2 Time Delivery Rate 08/23/18 98.5 111 18 119/65 96 Mechanical 08:00 (83) Ventilator 08/23/18 30 05:11 Intake and Output 08/22/18 08/22/18 08/23/18 1515:00 23:00 07:00 IntakeIntake Total 90 ml 175 ml 1020 ml OutputOutput Total 3125 ml 15 ml 75 ml BalanceBalance -3035 ml 160 ml 945 ml Exam General: Patient is laying in bed, nodding/shaking head to questions appropriately. Eyes: EOMI, pupils reactive to light Neck: Supple, nontender, midline Respiratory: Diminished breath sounds. no wheezing appreciated Cardiovascular: regular rhythm, tachycardia, no obvious murmurs Gastrointestinal: soft, mildly tender to palpation, bowel sounds heard. Skin: No new skin lesions Neuro:moving RUE and LE bilaterally. unable to move LUE. following simple commands Results Results 24hrs Laboratory Tests Test 08/22/18 23:22 08/22/18 23:50 08/23/18 01:17 08/23/18 04:53 Hemoglobin 8.4 L 9.9 L Hematocrit 27.0 L 31.2 L Platelet Count 379 386 Prothrombin Time 16.1 H Prothrombin Time 1.3 Ratio INR International 1.28 Normalized Ratio Activated 35.9 H Partial Thrombopl ast Time White Blood Count 12.0 H Red Blood Count 3.44 L Mean Corpuscular 90.7 Volume Mean Corpuscular 28.8 L Hemoglobin Mean Corpuscular 31.7 L Hemoglobin Concen t Red Cell 15.6 H Distribution Width Mean Platelet 13.4 H Volume Immature 1.200 H Granulocytes % Neutrophils % 77.4 H Lymphocytes % 12.0 L Monocytes % 7.1 Eosinophils % 1.2 Basophils % 1.1 Nucleated Red 0.0 Blood Cells % Immature 0.140 H Granulocytes # Neutrophils # 9.3 H Lymphocytes # 1.4 Monocytes # 0.9 Eosinophils # 0.1 Basophils # 0.1 Nucleated Red 0.0 Blood Cells # Sodium Level 143 Potassium Level 5.1 Chloride Level 105 Carbon Dioxide 23 Level Anion Gap 15 H Blood Urea 76 H Nitrogen Creatinine 4.23 H Est Glomerular 12 L Filtrat Rate mL/min Glucose Level 105 Calcium Level 8.4 Phosphorus Level 9.2 H Magnesium Level 2.1 Test 08/23/18 07:00 08/23/18 08:10 Blood Gas Blood arterial Specimen Source Arterial Blood 08/23/2018 7:30:00 Date Drawn AM Arterial Blood pH 7.367 (Temp corrected) Arterial Blood 38.5 pCO2 (Temp correct) Arterial Blood 73.7 L pO2 (Temp corrected) Arterial Blood 21.6 L HCO3 Arterial Blood -3.4 L Base Excess Arterial Blood 93.2 L Oxygen Saturation Dajuan Test ACCEPTAB Arterial Blood Left Radial Gas Puncture Site Arterial 0.3 Blood Carboxyhemo globin Arterial Blood 0.1 Methemoglobin Blood Gas A-a O2 95.0 H Differential Oxyhemoglobin 92.8 L Percent Blood Gas 37.0 Temperature Blood Gas 20.0 Respiration Rate Blood Gas Actual 21 Respiration Rate Blood Gas VENT - AC Modality FiO2 30.0 Blood Gas Tidal 400.0 Volume Blood Gas Low 5.0 PEEP Setting Blood Gas TM Notified Whom Blood Gas 08/23/2018 8:13:57 Notified Time AM Lab Scanned REFERENCE LAB Report Medications Medication Current Medications Norepinephrine 250 ml @ 1.875 mls/ hr TITRATE IV Last administered on 08/10/18at 00:41; Admin Dose 5.625 MLS/HR; Start 08/04/18 at 23:15 Morphine Sulfate (morphine) 1 mg Q1H PRN IV PAIN Last administered on 08/17/18 18:30; Admin Dose 1 MG; Start 08/04/18 at 23:30 Atorvastatin Calcium (Lipitor) 80 mg DAILY@21 PO Last administered on 08/22/18at 20:04; Admin Dose 80 MG; Start 08/05/18 at 21:00 Nitroglycerin/ Dextrose 250 ml @ 1.5 mls/hr TITRATE IV Last administered on 08/05/18at 14:22; Admin Dose 72 MLS/HR; Start 08/05/18 at 01:00 Miscellaneous Information 1 ea NOTE XX ; Start 08/05/18 at 09:00 Acetaminophen (Tylenol Supp) 650 mg Q4H PRN OK TEMP > 37C Last administered on 08/09/18 04:37; Admin Dose 650 MG; Start 08/05/18 at 11:00 Acetaminophen (Tylenol Liquid) 650 mg Q4H PRN PO TEMP > 37C Last administered on 08/22/18 20:04; Admin Dose 650 MG; Start 08/05/18 at 11:00 Meperidine HCl (Demerol) 25 mg Q4H PRN IV POST OPERATIVE SHIVERING Last administered on 08/05/18 16:31; Admin Dose 25 MG; Start 08/05/18 at 11:00 Eye Lubricant (Akwa Oint) 1 applic Q6 BOTH EYES Last administered on 08/23/18 05:23; Admin Dose 1 APPLIC; Start 08/05/18 at 12:00 Eye Lubricant (Artificial Tears Oph) 2 drop Q6 BOTH EYES Last administered on 08/23/18 05:23; Admin Dose 2 DROP; Start 08/05/18 at 12:00 Insulin Human Regular 100 unit/ Sodium Chloride 100 ml @ 0 mls/hr PER PROTOCOL IV ; Start 08/05/18 at 12:00 Miscellaneous Information (* Miscellaneous Pharmacy Order) Treatment of Hypoglycemia: 1.BG 51... Per protocol XX ; Start 08/05/18 at 12:00 Dextrose (D50w Syringe) 25 ml Q15M PRN IV .DECREASED GLUCOSE; Start 08/05/18 at 12:00 Dextrose (D50w Syringe) 50 ml Q15M PRN IV .DECREASED GLUCOSE; Start 08/05/18 at 12:00 Fentanyl 100 ml @ 2.5 mls/hr TITRATE IV Last administered on 08/23/18 01:46; Admin Dose 10 MLS/HR; Start 08/05/18 at 12:00 Meperidine HCl (Demerol) 12.5 mg Q2H PRN IV POST OPERATIVE SHIVERING; Start 08/05/18 at 17:00 Aspirin (Aspirin) 81 mg DAILY NGT Last administered on 08/22/18 20:05; Admin Dose 81 MG; Start 08/06/18 at 09:00 Multivitamins (Multivitamin) 30 ml DAILY NGT Last administered on 08/20/18 08:54; Admin Dose 30 ML; Start 08/09/18 at 09:00 Zinc Sulfate (Zinc Sulfate) 220 mg DAILY NGT Last administered on 08/20/18 08:54; Admin Dose 220 MG; Start 08/09/18 at 09:00 Folic Acid (Folic Acid) 1 mg DAILY NGT Last administered on 08/20/18 08:54; Admin Dose 1 MG; Start 08/09/18 at 09:00 Ascorbic Acid (Vitamin C) 500 mg DAILY NGT Last administered on 08/20/18 08:54; Admin Dose 500 MG; Start 08/09/18 at 09:00 Albuterol (Ventolin Hfa) 4 puff Q6HWA RESP THERAPY INH Last administered on 08/23/18 07:08; Admin Dose 4 PUFF; Start 08/09/18 at 14:00 Ipratropium [place] (Atrovent Hfa) 4 puff Q6H RESP THERAPY INH Last administered on 08/23/18 07:08; Admin Dose 4 PUFF; Start 08/09/18 at 14:00 IV Flush (NS 10 ml) 10 ml PRN PRN IV IV PROTOCOL; Start 08/11/18 at 16:30 Heparin Sodium (Porcine) (Heparin (1000 Units/ml)) 3,000 unit PRN PRN CATHETER Dialysis Last administered on 08/22/18 13:36; Admin Dose 3,000 UNIT; Start 08/12/18 at 14:30 Labetalol HCl (Labetalol) 10 mg Q4H PRN IV ELEVATED SYSTOLIC BP > 180 Last administered on 08/20/18 16:54; Admin Dose 10 MG; Start 08/14/18 at 19:00 Midazolam HCl 50 ml @ 1 mls/hr TITRATE IV Last administered on 08/20/18 00:16; Admin Dose 5 MLS/HR; Start 08/15/18 at 11:00 Hydralazine HCl (Apresoline) 20 mg Q2 PRN IV ELEVATED SYSTOLIC BP Last administered on 08/22/18 16:18; Admin Dose 20 MG; Start 08/16/18 at 08:00 Metronidazole 100 ml @ 100 mls/hr Q8 IVPB Last administered on 08/23/18 05:23; Admin Dose 100 MLS/HR; Start 08/16/18 at 22:00 Carvedilol (Coreg) 12.5 mg Q6H PO Last administered on 08/23/18 06:34; Admin Dose 12.5 MG; Start 08/17/18 at 01:00 Docusate Sodium (Colace Liquid Cup) 100 mg BID GTB Last administered on 08/22/18 20:03; Admin Dose 100 MG; Start 08/18/18 at 09:00 Clopidogrel Bisulfate (plaVIX) 75 mg DAILY NGT Last administered on 08/22/18 20:04; Admin Dose 75 MG; Start 08/18/18 at 13:30 Cefazolin Sodium 50 ml @ 100 mls/hr Q24H IVPB Last administered on 08/22/18 13:50; Admin Dose 100 MLS/HR; Start 08/19/18 at 14:00 Levofloxacin/ Dextrose 50 ml @ 50 mls/hr Q48H IVPB Last administered on 08/21/18 12:52; Admin Dose 50 MLS/HR; Start 08/19/18 at 12:30 Rifaximin (Xifaxan) 200 mg TID PO Last administered on 08/22/18 20:08; Admin Dose 200 MG; Start 08/19/18 at 13:00 Albumin Human 100 ml @ 100 mls/hr DURING DIALYSIS PRN IV HYPOTENSION DURING HD Last administered on 08/22/18 10:24; Admin Dose 100 MLS/HR; Start 08/22/18 at 10:00 Pantoprazole 80 mg/Sodium Chloride 100 ml @ 10 mls/hr Q10H IV Last administered on 08/23/18 00:42; Admin Dose 10 MLS/HR; Start 08/23/18 at 00:00 Sevelamer Carbonate (Renvela) 2.4 gm WITH MEALS GTB ; Start 08/23/18 at 11:30 THOMAS RILEY MD Aug 23, 2018 09:10
[2018-08-23] MEDS: CLOPIDOGREL 75 MG TAB NGT SCH (09:15)
[2018-08-23] MEDS: MULTIVITAMINS 30 ML CUP NGT SCH (09:15)
[2018-08-23] MEDS: ASPIRIN 81 MG TAB NGT SCH (09:15)
[2018-08-23] MEDS: RIFAXIMIN 200 MG TAB PO SCH ×3 (09:15→20:21)
[2018-08-23] MEDS: ASCORBIC ACID 500 MG TAB NGT SCH (09:15)
[2018-08-23] MEDS: FOLIC ACID 1 MG TAB NGT SCH (09:16)
[2018-08-23] MEDS: ZINC SULFATE 220 MG CAP NGT SCH (09:16)
--- NOTE | 2018-08-23 10:19 | CONS ---
Consult Date/Type/Reason Admit Date/Time Aug 04, 2018 at 23:10 Initial Consult Date 08/05/18 Type of Consult Pulmonary Requesting Provider: HARPAL AGGARWAL MD Date/Time of Note DATE: 08/23/18 TIME: 10:18 Subjective Patient stable post tracheostomy. More alert this morning. Still having bloody secretions and has significant neurological weakness. Objective Vital Signs Date Temp Pulse Resp B/P (MAP) Pulse Ox O2 O2 Flow FiO2 Time Delivery Rate 08/23/18 98.5 111 18 119/65 96 Mechanical 08:00 (83) Ventilator 08/23/18 30 05:11 Intake and Output 08/22/18 08/22/18 08/23/18 1515:00 23:00 07:00 IntakeIntake Total 90 ml 175 ml 1020 ml OutputOutput Total 3125 ml 15 ml 75 ml BalanceBalance -3035 ml 160 ml 945 ml Exam GENERAL: Well-nourished well-developed lady orally intubated on mechanical ventilation VITAL SIGNS: per chart NECK: Supple. No JVD or lymphadenopathy. CARDIAC EXAM: S1, S2. No added sounds or murmurs. CHEST: Diminished air entry bilaterally ABDOMEN: Mildly distended but no guarding or rebound EXTREMITIES: No cyanosis, clubbing edema +2 NEUROLOGIC: Generalized weakness. Vent Setting Ventilator Support Mode: AC, VC plus Fraction of Inspired Oxygen pe: 30 Positive End Expiratory Pressu: 5.0 Results/Medications Result Diagram: 08/23/18 0453 08/23/18 0453 Results 24 hrs Laboratory Tests Test 08/22/18 23:22 08/22/18 23:50 08/23/18 01:17 08/23/18 04:53 Hemoglobin 8.4 L 9.9 L Hematocrit 27.0 L 31.2 L Platelet Count 379 386 Prothrombin Time 16.1 H Prothrombin Time 1.3 Ratio INR International 1.28 Normalized Ratio Activated 35.9 H Partial Thrombopl ast Time White Blood Count 12.0 H Red Blood Count 3.44 L Mean Corpuscular 90.7 Volume Mean Corpuscular 28.8 L Hemoglobin Mean Corpuscular 31.7 L Hemoglobin Concen t Red Cell 15.6 H Distribution Width Mean Platelet 13.4 H Volume Immature 1.200 H Granulocytes % Neutrophils % 77.4 H Lymphocytes % 12.0 L Monocytes % 7.1 Eosinophils % 1.2 Basophils % 1.1 Nucleated Red 0.0 Blood Cells % Immature 0.140 H Granulocytes # Neutrophils # 9.3 H Lymphocytes # 1.4 Monocytes # 0.9 Eosinophils # 0.1 Basophils # 0.1 Nucleated Red 0.0 Blood Cells # Sodium Level 143 Potassium Level 5.1 Chloride Level 105 Carbon Dioxide 23 Level Anion Gap 15 H Blood Urea 76 H Nitrogen Creatinine 4.23 H Est Glomerular 12 L Filtrat Rate mL/min Glucose Level 105 Calcium Level 8.4 Phosphorus Level 9.2 H Magnesium Level 2.1 Test 08/23/18 07:00 08/23/18 08:10 Blood Gas Blood arterial Specimen Source Arterial Blood 08/23/2018 7:30:00 Date Drawn AM Arterial Blood pH 7.367 (Temp corrected) Arterial Blood 38.5 pCO2 (Temp correct) Arterial Blood 73.7 L pO2 (Temp corrected) Arterial Blood 21.6 L HCO3 Arterial Blood -3.4 L Base Excess Arterial Blood 93.2 L Oxygen Saturation Dajuan Test ACCEPTAB Arterial Blood Left Radial Gas Puncture Site Arterial 0.3 Blood Carboxyhemo globin Arterial Blood 0.1 Methemoglobin Blood Gas A-a O2 95.0 H Differential Oxyhemoglobin 92.8 L Percent Blood Gas 37.0 Temperature Blood Gas 20.0 Respiration Rate Blood Gas Actual 21 Respiration Rate Blood Gas VENT - AC Modality FiO2 30.0 Blood Gas Tidal 400.0 Volume Blood Gas Low 5.0 PEEP Setting Blood Gas TM Notified Whom Blood Gas 08/23/2018 8:13:57 Notified Time AM Lab Scanned REFERENCE LAB Report Medications Current Medications Norepinephrine 250 ml @ 1.875 mls/ hr TITRATE IV Last administered on 08/10/18 00:41; Admin Dose 5.625 MLS/HR; Start 08/04/18 at 23:15 Morphine Sulfate (morphine) 1 mg Q1H PRN IV PAIN Last administered on 08/17/18 18:30; Admin Dose 1 MG; Start 08/04/18 at 23:30 Atorvastatin Calcium (Lipitor) 80 mg DAILY@21 PO Last administered on 08/22/18 20:04; Admin Dose 80 MG; Start 08/05/18 at 21:00 Nitroglycerin/ Dextrose 250 ml @ 1.5 mls/hr TITRATE IV Last administered on 08/05/18 14:22; Admin Dose 72 MLS/HR; Start 08/05/18 at 01:00 Miscellaneous Information 1 ea NOTE XX ; Start 08/05/18 at 09:00 Acetaminophen (Tylenol Supp) [address] TEMP > 37C Last administered on 08/09/18at 04:37; Admin Dose 650 MG; Start 08/05/18 at 11:00 Acetaminophen (Tylenol Liquid) 650 mg Q4H PRN PO TEMP > 37C Last administered on 08/22/18 20:04; Admin Dose 650 MG; Start 08/05/18 at 11:00 Meperidine HCl (Demerol) 25 mg Q4H PRN IV POST OPERATIVE SHIVERING Last administered on 08/05/18 16:31; Admin Dose 25 MG; Start 08/05/18 at 11:00 Eye Lubricant (Akwa Oint) 1 applic Q6 BOTH EYES Last administered on 08/23/18 05:23; Admin Dose 1 APPLIC; Start 08/05/18 at 12:00 Eye Lubricant (Artificial Tears Oph) 2 drop Q6 BOTH EYES Last administered on 08/23/18 05:23; Admin Dose 2 DROP; Start 08/05/18 at 12:00 Insulin Human Regular 100 unit/ Sodium Chloride 100 ml @ 0 mls/hr PER PROTOCOL IV ; Start 08/05/18 at 12:00 Miscellaneous Information (* Miscellaneous Pharmacy Order) Treatment of Hypoglycemia: 1.BG 51... Per protocol XX ; Start 08/05/18 at 12:00 Dextrose (D50w Syringe) 25 ml Q15M PRN IV .DECREASED GLUCOSE; Start 08/05/18 at 12:00 Dextrose (D50w Syringe) 50 ml Q15M PRN IV .DECREASED GLUCOSE; Start 08/05/18 at 12:00 Fentanyl 100 ml @ 2.5 mls/hr TITRATE IV Last administered on 08/23/18 01:46; Admin Dose 10 MLS/HR; Start 08/05/18 at 12:00 Meperidine HCl (Demerol) 12.5 mg Q2H PRN IV POST OPERATIVE SHIVERING; Start 08/05/18 at 17:00 Aspirin (Aspirin) 81 mg DAILY NGT Last administered on 08/23/18 09:15; Admin Dose 81 MG; Start 08/06/18 at 09:00 Multivitamins (Multivitamin) 30 ml DAILY NGT Last administered on 08/23/18 09:15; Admin Dose 30 ML; Start 08/09/18 at 09:00 Zinc Sulfate (Zinc Sulfate) 220 mg DAILY NGT Last administered on 08/23/18 09:16; Admin Dose 220 MG; Start 08/09/18 at 09:00 Folic Acid (Folic Acid) 1 mg DAILY NGT Last administered on 08/23/18 09:16; Admin Dose 1 MG; Start 08/09/18 at 09:00 Ascorbic Acid (Vitamin C) 500 mg DAILY NGT Last administered on 08/23/18 09:15; Admin Dose 500 MG; Start 08/09/18 at 09:00 Albuterol (Ventolin Hfa) 4 puff Q6HWA RESP THERAPY INH Last administered on 08/23/18 07:08; Admin Dose 4 PUFF; Start 08/09/18 at 14:00 Ipratropium Watson (Atrovent Hfa) 4 puff Q6H RESP THERAPY INH Last administered on 08/23/18 07:08; Admin Dose 4 PUFF; Start 08/09/18 at 14:00 IV Flush (NS 10 ml) 10 ml PRN PRN IV IV PROTOCOL; Start 08/11/18 at 16:30 Heparin Sodium (Porcine) (Heparin (1000 Units/ml)) 3,000 unit PRN PRN CATHETER Dialysis Last administered on 08/22/18 13:36; Admin Dose 3,000 UNIT; Start 08/12/18 at 14:30 Labetalol HCl (Labetalol) 10 mg Q4H PRN IV ELEVATED SYSTOLIC BP > 180 Last administered on 08/20/18 16:54; Admin Dose 10 MG; Start 08/14/18 at 19:00 Midazolam HCl 50 ml @ 1 mls/hr TITRATE IV Last administered on 08/20/18 00:16; Admin Dose 5 MLS/HR; Start 08/15/18 at 11:00 Hydralazine HCl (Apresoline) 20 mg Q2 PRN IV ELEVATED SYSTOLIC BP Last administered on 08/22/18 16:18; Admin Dose 20 MG; Start 08/16/18 at 08:00 Metronidazole 100 ml @ 100 mls/hr Q8 IVPB Last administered on 08/23/18 05:23; Admin Dose 100 MLS/HR; Start 08/16/18 at 22:00 Carvedilol (Coreg) 12.5 mg Q6H PO Last administered on 08/23/18 06:34; Admin Dose 12.5 MG; Start 08/17/18 at 01:00 Docusate Sodium (Colace Liquid Cup) 100 mg BID GTB Last administered on 08/22/18 20:03; Admin Dose 100 MG; Start 08/18/18 at 09:00 Clopidogrel Bisulfate (plaVIX) 75 mg DAILY NGT Last administered on 08/23/18 09:15; Admin Dose 75 MG; Start 08/18/18 at 13:30 Cefazolin Sodium 50 ml @ 100 mls/hr Q24H IVPB Last administered on 08/22/18 13:50; Admin Dose 100 MLS/HR; Start 08/19/18 at 14:00 Levofloxacin/ Dextrose 50 ml @ 50 mls/hr Q48H IVPB Last administered on 08/21/18 12:52; Admin Dose 50 MLS/HR; Start 08/19/18 at 12:30 Rifaximin (Xifaxan) 200 mg TID PO Last administered on 08/23/18 09:15; Admin Dose 200 MG; Start 08/19/18 at 13:00 Albumin Human 100 ml @ 100 mls/hr DURING DIALYSIS PRN IV HYPOTENSION DURING HD Last administered on 08/22/18 10:24; Admin Dose 100 MLS/HR; Start 08/22/18 at 10:00 Pantoprazole 80 mg/Sodium Chloride 100 ml @ 10 mls/hr Q10H IV Last administered on 08/23/18 09:18; Admin Dose 10 MLS/HR; Start 08/23/18 at 00:00 Sevelamer Carbonate (Renvela) 2.4 gm WITH MEALS GTB ; Start 08/23/18 at 11:30 Assessment/Plan Hospital Course (Demo Recall) IMP: 1. Ventricular Fibrillation Arrest--s/p ROSC 2/2 STEMI s/p PCI status post hypothermia protocol. Multivessel coronary artery disease status post stent placement x3 2. STEMI, Status post stent x3 placement. 3. CVA multiple infarcts noted. 4. Hypoxemic respiratory failure no status post tracheostomy placement 5. HUSEYIN--likely ATN continues hemodialysis 6. Ischemic hepatopathy--2/2 arrest 7. Resolving encephalopathy RECS: 1. Continue mechanical ventilation, continue pulmonary toilet tracheostomy care 2. Decrease FiO2 as tolerated low tidal volume strategy if needed, will attempt SIMV trial tomorrow 3. Continue tube feeding 4. PEG tube feeding 5. Continue Abx 6. Pulmonary toilet 7. Hemodialysis per nephrology 8. Physical therapy evaluation Critical care time 40 minutes. CHINO ANDERSON MD, [facility] Aug 23, 2018 10:19
[2018-08-23] MEDS: SEVELAMER CARBONATE 2.4 GM PKT GTB SCH ×2 (11:29→17:51)
[2018-08-23] MEDS: LEVOFLOXACIN 250MG/D5W (PMX) 50 ML IVPB SCH (11:30)
--- NOTE | 2018-08-23 13:54 | PN ---
Date/Time of Note Date/Time of Note DATE: 08/23/18 TIME: 13:52 Assessment/Plan VTE Prophylaxis Risk score (from Ns)>0 risk: 7 SCD applied (from Ns): Yes Pharmacological prophylaxis: other (scds) Lines/Catheters IV Catheter Type (from Nrsg): Central Line Central line still needed: Yes (meds) Urinary Cath still in place: Yes Reason Cath still needed: other (indicate) (monitor output) Assessment/Plan Hospital Course Assessment: Dysphagia Status post cardiac arrest Respiratory failure Sepsis Abnormal MRI of the brain Status post cardiac catheterization with stents Acute kidney injuryon hemodialysis Obesity Hypertension Plan: No further bleeding at g-tube site noted Pt tolerating TF well GI will sign off but will be available upon reconsult as needed Patient seen in collaboration with Subjective: Pt remains in ICU S/p Tach, now more awake and alert tolerating TF well. PHYSICAL EXAMINATION: GENERAL: Well developed, obese, s/p trach on MV, in no acute distress SKIN: PEG in place HEAD: Normocephalic, atraumatic, no tenderness. EYES: Pupils equal reactive to light, no discharge. EARS/NOSE AND THROAT: Ears normal, nose normal, oropharynx normal NECK: Supple CHEST: Inspection within normal limits. CARDIOVASCULAR: Heart: Regular rate and rhythm RESPIRATORY: Lungs clear to auscultation GASTROINTESTINAL AND LIVER: Abdomen: Soft, non tenderness, non-distended, no hernias, no masses, no organomegaly, no ascites, no guarding, no rebound tenderness, normoactive bowel sounds. Rectal: Deferred. GENITOURINARY: Female genitalia within normal limits. Rectal tube in place EXTREMITIES: No cyanosis, generalized edema. Result Diagram: 08/23/18 0453 08/23/18 0453 Results 24hrs Laboratory Tests Test 08/22/18 23:22 08/22/18 23:50 08/23/18 01:17 08/23/18 04:53 Hemoglobin 8.4 L 9.9 L Hematocrit 27.0 L 31.2 L Platelet Count 379 386 Prothrombin Time 16.1 H Prothrombin Time 1.3 Ratio INR International 1.28 Normalized Ratio Activated 35.9 H Partial Thrombopl ast Time White Blood Count 12.0 H Red Blood Count 3.44 L Mean Corpuscular 90.7 Volume Mean Corpuscular 28.8 L Hemoglobin Mean Corpuscular 31.7 L Hemoglobin Concen t Red Cell 15.6 H Distribution Width Mean Platelet 13.4 H Volume Immature 1.200 H Granulocytes % Neutrophils % 77.4 H Lymphocytes % 12.0 L Monocytes % 7.1 Eosinophils % 1.2 Basophils % 1.1 Nucleated Red 0.0 Blood Cells % Immature 0.140 H Granulocytes # Neutrophils # 9.3 H Lymphocytes # 1.4 Monocytes # 0.9 Eosinophils # 0.1 Basophils # 0.1 Nucleated Red 0.0 Blood Cells # Sodium Level 143 Potassium Level 5.1 Chloride Level 105 Carbon Dioxide 23 Level Anion Gap 15 H Blood Urea 76 H Nitrogen Creatinine 4.23 H Est Glomerular 12 L Filtrat Rate mL/min Glucose Level 105 Calcium Level 8.4 Phosphorus Level 9.2 H Magnesium Level 2.1 Test 08/23/18 07:00 08/23/18 08:10 Blood Gas Blood arterial Specimen Source Arterial Blood 08/23/2018 7:30:00 Date Drawn AM Arterial Blood pH 7.367 (Temp corrected) Arterial Blood 38.5 pCO2 (Temp correct) Arterial Blood 73.7 L pO2 (Temp corrected) Arterial Blood 21.6 L HCO3 Arterial Blood -3.4 L Base Excess Arterial Blood 93.2 L Oxygen Saturation Dajuan Test ACCEPTAB Arterial Blood Left Radial Gas Puncture Site Arterial 0.3 Blood Carboxyhemo globin Arterial Blood 0.1 Methemoglobin Blood Gas A-a O2 95.0 H Differential Oxyhemoglobin 92.8 L Percent Blood Gas 37.0 Temperature Blood Gas 20.0 Respiration Rate Blood Gas Actual 21 Respiration Rate Blood Gas VENT - AC Modality FiO2 30.0 Blood Gas Tidal 400.0 Volume Blood Gas Low 5.0 PEEP Setting Blood Gas TM Notified Whom Blood Gas 08/23/2018 8:13:57 Notified Time AM Lab Scanned REFERENCE LAB Report Exam/Review of Systems Exam Vitals Vital Signs Date Temp Pulse Resp B/P (MAP) Pulse Ox O2 O2 Flow FiO2 Time Delivery Rate 08/23/18 117 27 116/75 12:30 (89) 08/23/18 98.5 97 Mechanical 12:00 Ventilator 08/23/18 30 05:11 Intake and Output 08/22/18 08/22/18 08/23/18 1515:00 23:00 07:00 IntakeIntake Total 90 ml 175 ml 1020 ml OutputOutput Total 3125 ml 15 ml 75 ml BalanceBalance -3035 ml 160 ml 945 ml Results Results 24hrs Laboratory Tests Test 08/22/18 23:22 08/22/18 23:50 08/23/18 01:17 08/23/18 04:53 Hemoglobin 8.4 L 9.9 L Hematocrit 27.0 L 31.2 L Platelet Count 379 386 Prothrombin Time 16.1 H Prothrombin Time 1.3 Ratio INR International 1.28 Normalized Ratio Activated 35.9 H Partial Thrombopl ast Time White Blood Count 12.0 H Red Blood Count 3.44 L Mean Corpuscular 90.7 Volume Mean Corpuscular 28.8 L Hemoglobin Mean Corpuscular 31.7 L Hemoglobin Concen t Red Cell 15.6 H Distribution Width Mean Platelet 13.4 H Volume Immature 1.200 H Granulocytes % Neutrophils % 77.4 H Lymphocytes % 12.0 L Monocytes % 7.1 Eosinophils % 1.2 Basophils % 1.1 Nucleated Red 0.0 Blood Cells % Immature 0.140 H Granulocytes # Neutrophils # 9.3 H Lymphocytes # 1.4 Monocytes # 0.9 Eosinophils # 0.1 Basophils # 0.1 Nucleated Red 0.0 Blood Cells # Sodium Level 143 Potassium Level 5.1 Chloride Level 105 Carbon Dioxide 23 Level Anion Gap 15 H Blood Urea 76 H Nitrogen Creatinine 4.23 H Est Glomerular 12 L Filtrat Rate mL/min Glucose Level 105 Calcium Level 8.4 Phosphorus Level 9.2 H Magnesium Level 2.1 Test 08/23/18 07:00 08/23/18 08:10 Blood Gas Blood arterial Specimen Source Arterial Blood 08/23/2018 7:30:00 Date Drawn AM Arterial Blood pH 7.367 (Temp corrected) Arterial Blood 38.5 pCO2 (Temp correct) Arterial Blood 73.7 L pO2 (Temp corrected) Arterial Blood 21.6 L HCO3 Arterial Blood -3.4 L Base Excess Arterial Blood 93.2 L Oxygen Saturation Dajuan Test ACCEPTAB Arterial Blood Left Radial Gas Puncture Site Arterial 0.3 Blood Carboxyhemo globin Arterial Blood 0.1 Methemoglobin Blood Gas A-a O2 95.0 H Differential Oxyhemoglobin 92.8 L Percent Blood Gas 37.0 Temperature Blood Gas 20.0 Respiration Rate Blood Gas Actual 21 Respiration Rate Blood Gas VENT - AC Modality FiO2 30.0 Blood Gas Tidal 400.0 Volume Blood Gas Low 5.0 PEEP Setting Blood Gas TM Notified Whom Blood Gas 08/23/2018 8:13:57 Notified Time AM Lab Scanned REFERENCE LAB Report Medications Medication Current Medications Norepinephrine 250 ml @ 1.875 mls/ hr TITRATE IV Last administered on 08/10/18 00:41; Admin Dose 5.625 MLS/HR; Start 08/04/18 at 23:15 Morphine Sulfate (morphine) 1 mg Q1H PRN IV PAIN Last administered on 08/17/18 18:30; Admin Dose 1 MG; Start 08/04/18 at 23:30 Atorvastatin Calcium (Lipitor) 80 mg DAILY@21 PO Last administered on 08/22/18 20:04; Admin Dose 80 MG; Start 08/05/18 at 21:00 Nitroglycerin/ Dextrose 250 ml @ 1.5 mls/hr TITRATE IV Last administered on 08/05/18 14:22; Admin Dose 72 MLS/HR; Start 08/05/18 at 01:00 Miscellaneous Information 1 ea NOTE XX ; Start 08/05/18 at 09:00 Acetaminophen (Tylenol Supp) 650 mg Q4H PRN AR TEMP > 37C Last administered on 08/09/18 04:37; Admin Dose 650 MG; Start 08/05/18 at 11:00 Acetaminophen (Tylenol Liquid) 650 mg Q4H PRN PO TEMP > 37C Last administered on 08/22/18 20:04; Admin Dose 650 MG; Start 08/05/18 at 11:00 Meperidine HCl (Demerol) 25 mg Q4H PRN IV POST OPERATIVE SHIVERING Last administered on 08/05/18 16:31; Admin Dose 25 MG; Start 08/05/18 at 11:00 Eye Lubricant (Akwa Oint) 1 applic Q6 BOTH EYES Last administered on 08/23/18 05:23; Admin Dose 1 APPLIC; Start 08/05/18 at 12:00 Eye Lubricant (Artificial Tears Oph) 2 drop Q6 BOTH EYES Last administered on 08/23/18 11:29; Admin Dose 2 DROP; Start 08/05/18 at 12:00 Insulin Human Regular 100 unit/ Sodium Chloride 100 ml @ 0 mls/hr PER PROTOCOL IV ; Start 08/05/18 at 12:00 Miscellaneous Information (* Miscellaneous Pharmacy Order) Treatment of Hypoglycemia: 1.BG 51... Per protocol XX ; Start 08/05/18 at 12:00 Dextrose (D50w Syringe) 25 ml Q15M PRN IV .DECREASED GLUCOSE; Start 08/05/18 at 12:00 Dextrose (D50w Syringe) 50 ml Q15M PRN IV .DECREASED GLUCOSE; Start 08/05/18 at 12:00 Fentanyl 100 ml @ 2.5 mls/hr TITRATE IV Last administered on 08/23/18 01:46; Admin Dose 10 MLS/HR; Start 08/05/18 at 12:00 Meperidine HCl (Demerol) 12.5 mg Q2H PRN IV POST OPERATIVE SHIVERING; Start 08/05/18 at 17:00 Aspirin (Aspirin) 81 mg DAILY NGT Last administered on 08/23/18 09:15; Admin Dose 81 MG; Start 08/06/18 at 09:00 Multivitamins (Multivitamin) 30 ml DAILY NGT Last administered on 08/23/18 09 :15; Admin Dose 30 ML; Start 08/09/18 at 09:00 Zinc Sulfate (Zinc Sulfate) 220 mg DAILY NGT Last administered on 08/23/18 09:16; Admin Dose 220 MG; Start 08/09/18 at 09:00 Folic Acid (Folic Acid) 1 mg DAILY NGT Last administered on 08/23/18 09:16; Admin Dose 1 MG; Start 08/09/18 at 09:00 Ascorbic Acid (Vitamin C) 500 mg DAILY NGT Last administered on 08/23/18 09:15; Admin Dose 500 MG; Start 08/09/18 at 09:00 Albuterol (Ventolin Hfa) 4 puff Q6HWA RESP THERAPY INH Last administered on 08/23/18 07:08; Admin Dose 4 PUFF; Start 08/09/18 at 14:00 Ipratropium [place] (Atrovent Hfa) 4 puff Q6H RESP THERAPY INH Last administered on 08/23/18 07:08; Admin Dose 4 PUFF; Start 08/09/18 at 14:00 IV Flush (NS 10 ml) 10 ml PRN PRN IV IV PROTOCOL; Start 08/11/18 at 16:30 Heparin Sodium (Porcine) (Heparin (1000 Units/ml)) 3,000 unit PRN PRN CATHETER Dialysis Last administered on 08/22/18 13:36; Admin Dose 3,000 UNIT; Start 08/12/18 at 14:30 Labetalol HCl (Labetalol) 10 mg Q4H PRN IV ELEVATED SYSTOLIC BP > 180 Last administered on 08/20/18 16:54; Admin Dose 10 MG; Start 08/14/18 at 19:00 Midazolam HCl 50 ml @ 1 mls/hr TITRATE IV Last administered on 08/20/18 00:16; Admin Dose 5 MLS/HR; Start 08/15/18 at 11:00 Hydralazine HCl (Apresoline) 20 mg Q2 PRN IV ELEVATED SYSTOLIC BP Last administ ered on 08/22/18 16:18; Admin Dose 20 MG; Start 08/16/18 at 08:00 Metronidazole 100 ml @ 100 mls/hr Q8 IVPB Last administered on 08/23/18 05:23; Admin Dose 100 MLS/HR; Start 08/16/18 at 22:00 Carvedilol (Coreg) 12.5 mg Q6H PO Last administered on 08/23/18 06:34; Admin Dose 12.5 MG; Start 08/17/18 at 01:00 Docusate Sodium (Colace Liquid Cup) 100 mg BID GTB Last administered on 08/22/18 20:03; Admin Dose 100 MG; Start 08/18/18 at 09:00 Clopidogrel Bisulfate (plaVIX) 75 mg DAILY NGT Last administered on 08/23/18 09:15; Admin Dose 75 MG; Start 08/18/18 at 13:30 Cefazolin Sodium 50 ml @ 100 mls/hr Q24H IVPB Last administered on 08/22/18 13:50; Admin Dose 100 MLS/HR; Start 08/19/18 at 14:00 Levofloxacin/ Dextrose 50 ml @ 50 mls/hr Q48H IVPB Last administered on 08/23/18 11:30; Admin Dose 50 MLS/HR; Start 08/19/18 at 12:30 Rifaximin (Xifaxan) 200 mg TID PO Last administered on 08/23/18 09:15; Admin Dose 200 MG; Start 08/19/18 at 13:00 Albumin Human 100 ml @ 100 mls/hr DURING DIALYSIS PRN IV HYPOTENSION DURING HD Last administered on 08/22/18 10:24; Admin Dose 100 MLS/HR; Start 08/22/18 at 10:00 Pantoprazole 80 mg/Sodium Chloride 100 ml @ 10 mls/hr Q10H IV Last administered on 08/23/18 09:18; Admin Dose 10 MLS/HR; Start 08/23/18 at 00:00 Sevelamer Carbonate (Renvela) 2.4 gm WITH MEALS GTB Last administered on 08/23/18 11:29; Admin Dose 2.4 GM; Start 08/23/18 at 11:30 PAULA GUTIERREZ Aug 23, 2018 13:54
--- NOTE | 2018-08-23 14:12 | CONS ---
Assessment/Plan Assessment/Plan Hospital Course (Demo Recall) No acute events overnight patient is laying comfortably in bed she is status post tracheostomy and PEG yesterday, she opens her eyes and tracking. T-max yesterday 101.4 T-current 98.5. WBC 12 H&H 9.9 and 31.2 platelets 386 neutrophils Chest x-ray this morning revealed improving right lower lobe consolidation consistent with improving pneumonia Antimicrobials: Ancef, Levaquin, Flagyl Microbiology: Urine culture on admission grew E. coli and Proteus, blood cultures growing oxacillin sensitive staph aureus endotracheal aspirate also growing oxacillin sensitive staph aureus ear drainage preliminary growing staph aureus, repeat blood cultures 2 days ago negative Indwelling: Trach, PEG, right femoral Devan, right upper extremity PICC line Physical examination: Obese well-developed middle-aged woman who is intubated in no distress. Head atraumatic normocephalic neck is supple chest rise symmetrical breath sounds diminished bases. Heart: S1-S2. Abdomen distended. Bowel sounds hypoactive. Extremities cyanotic Assessment: 1. Severe sepsis, s/p shock 2. Oxacillin sensitive staph aureus bacteremia 2 to #3 3. Oxacillin sensitive staph aureus pneumonia 4. Polymicrobial UTI 5. ST elevation SC, status post stent 6. Status post V. fib arrest 7. Acute renal failure, started on hemodialysis 8. 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 Anemia and thrombocytopenia 10. Acute sinusitis and bilateral mastoiditis 11. Morbid obesity 12. Diarrhea, r/o C dif Plan: Clinically improving, repeat blood cultures negative, chest x-ray looks better, continue on current antibiotics, consider to change femoral Devan, reculture for temperature of 101 and above Consultation Date/Type/Reason Admit Date/Time Aug 04, 2018 at 23:10 Initial Consult Date 08/12/18 Type of Consult id Requesting Provider: HARPAL AGGARWAL MD Date/Time of Note DATE: 08/23/18 TIME: 14:11 Exam/Review of Systems Exam Vitals Vital Signs Date Temp Pulse Resp B/P (MAP) Pulse Ox O2 O2 Flow FiO2 Time Delivery Rate 08/23/18 118 20 122/75 97 13:30 (91) 08/23/18 Mechanical 13:00 Ventilator 08/23/18 98.5 12:00 08/23/18 30 05:11 Intake and Output 4/3/19 4/3/19 4/4/19 1515:00 23:00 07:00 IntakeIntake Total 90 ml 175 ml 1020 ml OutputOutput Total 3125 ml 15 ml 75 ml BalanceBalance -3035 ml 160 ml 945 ml Results Result Diagram: 08/23/18 0453 08/23/18 0453 Results 24hrs Laboratory Tests Test 08/22/18 23:22 08/22/18 23:50 08/23/18 01:17 08/23/18 04:53 Hemoglobin 8.4 L 9.9 L Hematocrit 27.0 L 31.2 L Platelet Count 379 386 Prothrombin Time 16.1 H Prothrombin Time 1.3 Ratio INR International 1.28 Normalized Ratio Activated 35.9 H Partial Thrombopl ast Time White Blood Count 12.0 H Red Blood Count 3.44 L Mean Corpuscular 90.7 Volume Mean Corpuscular 28.8 L Hemoglobin Mean Corpuscular 31.7 L Hemoglobin Concen t Red Cell 15.6 H Distribution Width Mean Platelet 13.4 H Volume Immature 1.200 H Granulocytes % Neutrophils % 77.4 H Lymphocytes % 12.0 L Monocytes % 7.1 Eosinophils % 1.2 Basophils % 1.1 Nucleated Red 0.0 Blood Cells % Immature 0.140 H Granulocytes # Neutrophils # 9.3 H Lymphocytes # 1.4 Monocytes # 0.9 Eosinophils # 0.1 Basophils # 0.1 Nucleated Red 0.0 Blood Cells # Sodium Level 143 Potassium Level 5.1 Chloride Level 105 Carbon Dioxide 23 Level Anion Gap 15 H Blood Urea 76 H Nitrogen Creatinine 4.23 H Est Glomerular 12 L Filtrat Rate mL/min Glucose Level 105 Calcium Level 8.4 Phosphorus Level 9.2 H Magnesium Level 2.1 Test 08/23/18 07:00 08/23/18 08:10 Blood Gas Blood arterial Specimen Source Arterial Blood 08/23/2018 7:30:00 Date Drawn AM Arterial Blood pH 7.367 (Temp corrected) Arterial Blood 38.5 pCO2 (Temp correct) Arterial Blood 73.7 L pO2 (Temp corrected) Arterial Blood 21.6 L HCO3 Arterial Blood -3.4 L Base Excess Arterial Blood 93.2 L Oxygen Saturation Dajuan Test ACCEPTAB Arterial Blood Left Radial Gas Puncture Site Arterial 0.3 Blood Carboxyhemo globin Arterial Blood 0.1 Methemoglobin Blood Gas A-a O2 95.0 H Differential Oxyhemoglobin 92.8 L Percent Blood Gas 37.0 Temperature Blood Gas 20.0 Respiration Rate Blood Gas Actual 21 Respiration Rate Blood Gas VENT - AC Modality FiO2 30.0 Blood Gas Tidal 400.0 Volume Blood Gas Low 5.0 PEEP Setting Blood Gas TM Notified Whom Blood Gas 08/23/2018 8:13:57 Notified Time AM Lab Scanned REFERENCE LAB Report Medications Medication Current Medications Norepinephrine 250 ml @ 1.875 mls/ hr TITRATE IV Last administered on 08/10/18 00:41; Admin Dose 5.625 MLS/HR; Start 08/04/18 at 23:15 Morphine Sulfate (morphine) 1 mg Q1H PRN IV PAIN Last administered on 08/17/18 18:30; Admin Dose 1 MG; Start 08/04/18 at 23:30 Atorvastatin Calcium (Lipitor) 80 mg DAILY@21 PO Last administered on 08/22/18 20:04; Admin Dose 80 MG; Start 08/05/18 at 21:00 Nitroglycerin/ Dextrose 250 ml @ 1.5 mls/hr TITRATE IV Last administered on 08/05/18 14:22; Admin Dose 72 MLS/HR; Start 08/05/18 at 01:00 Miscellaneous Information 1 ea NOTE XX ; Start 08/05/18 at 09:00 Acetaminophen (Tylenol Supp) 650 mg Q4H PRN [place] TEMP > 37C Last administered on 08/09/18 04:37; Admin Dose 650 MG; Start 08/05/18 at 11:00 Acetaminophen (Tylenol Liquid) 650 mg Q4H PRN PO TEMP > 37C Last administered on 08/22/18 20:04; Admin Dose 650 MG; Start 08/05/18 at 11:00 Meperidine HCl (Demerol) 25 mg Q4H PRN IV POST OPERATIVE SHIVERING Last administered on 08/05/18 16:31; Admin Dose 25 MG; Start 08/05/18 at 11:00 Eye Lubricant (Akwa Oint) 1 applic Q6 BOTH EYES Last administered on 08/23/18 05:23; Admin Dose 1 APPLIC; Start 08/05/18 at 12:00 Eye Lubricant (Artificial Tears Oph) 2 drop Q6 BOTH EYES Last administered on 08/23/18 11:29; Admin Dose 2 DROP; Start 08/05/18 at 12:00 Insulin Human Regular 100 unit/ Sodium Chloride 100 ml @ 0 mls/hr PER PROTOCOL IV ; Start 08/05/18 at 12:00 Miscellaneous Information (* Miscellaneous Pharmacy Order) Treatment of Hypoglycemia: 1.BG 51... Per protocol XX ; Start 08/05/18 at 12:00 Dextrose (D50w Syringe) 25 ml Q15M PRN IV .DECREASED GLUCOSE; Start 08/05/18 at 12:00 Dextrose (D50w Syringe) 50 ml Q15M PRN IV .DECREASED GLUCOSE; Start 08/05/18 at 12:00 Fentanyl 100 ml @ 2.5 mls/hr TITRATE IV Last administered on 08/23/18 01:46; Admin Dose 10 MLS/HR; Start 08/05/18 at 12:00 Meperidine HCl (Demerol) 12.5 mg Q2H PRN IV POST OPERATIVE SHIVERING; Start 08/05/18 at 17:00 Aspirin (Aspirin) 81 mg DAILY NGT Last administered on 08/23/18 09:15; Admin Dose 81 MG; Start 08/06/18 at 09:00 Multivitamins (Multivitamin) 30 ml DAILY NGT Last administered on 08/23/18 09:15; Admin Dose 30 ML; Start 08/09/18 at 09:00 Zinc Sulfate (Zinc Sulfate) 220 mg DAILY NGT Last administered on 08/23/18 09:16; Admin Dose 220 MG; Start 08/09/18 at 09:00 Folic Acid (Folic Acid) 1 mg DAILY NGT Last administered on 08/23/18 09:16; Admin Dose 1 MG; Start 08/09/18 at 09:00 Ascorbic Acid (Vitamin C) 500 mg DAILY NGT Last administered on 08/23/18 09:15; Admin Dose 500 MG; Start 08/09/18 at 09:00 Albuterol (Ventolin Hfa) 4 puff Q6HWA RESP THERAPY INH Last administered on 08/23/18 07:08; Admin Dose 4 PUFF; Start 08/09/18 at 14:00 Ipratropium [place] (Atrovent Hfa) 4 puff Q6H RESP THERAPY INH Last administered on 08/23/18 07:08; Admin Dose 4 PUFF; Start 08/09/18 at 14:00 IV Flush (NS 10 ml) 10 ml PRN PRN IV IV PROTOCOL; Start 08/11/18 at 16:30 Heparin Sodium (Porcine) (Heparin (1000 Units/ml)) 3,000 unit PRN PRN CATHETER Dialysis Last administered on 08/22/18 13:36; Admin Dose 3,000 UNIT; Start 08/12/18 at 14:30 Labetalol HCl (Labetalol) 10 mg Q4H PRN IV ELEVATED SYSTOLIC BP > 180 Last administered on 08/20/18 16:54; Admin Dose 10 MG; Start 08/14/18 at 19:00 Midazolam HCl 50 ml @ 1 mls/hr TITRATE IV Last administered on 08/20/18 00:16; Admin Dose 5 MLS/HR; Start 08/15/18 at 11:00 Hydralazine HCl (Apresoline) 20 mg Q2 PRN IV ELEVATED SYSTOLIC BP Last administered on 08/22/18 16:18; Admin Dose 20 MG; Start 08/16/18 at 08:00 Metronidazole 100 ml @ 100 mls/hr Q8 IVPB Last administered on 08/23/18 05:23; Admin Dose 100 MLS/HR; Start 08/16/18 at 22:00 Carvedilol (Coreg) 12.5 mg Q6H PO Last administered on 08/23/18 06:34; Admin Dose 12.5 MG; Start 08/17/18 at 01:00 Docusate Sodium (Colace Liquid Cup) 100 mg BID GTB Last administered on 08/22/18 20:03; Admin Dose 100 MG; Start 08/18/18 at 09:00 Clopidogrel Bisulfate (plaVIX) 75 mg DAILY NGT Last administered on 08/23/18 09:15; Admin Dose 75 MG; Start 08/18/18 at 13:30 Cefazolin Sodium 50 ml @ 100 mls/hr Q24H IVPB Last administered on 08/22/18 13:50; Admin Dose 100 MLS/HR; Start 08/19/18 at 14:00 Levofloxacin/ Dextrose 50 ml @ 50 mls/hr Q48H IVPB Last administered on 08/23/18 11:30; Admin Dose 50 MLS/HR; Start 08/19/18 at 12:30 Rifaximin (Xifaxan) 200 mg TID PO Last administered on 08/23/18 09:15; Admin Dose 200 MG; Start 08/19/18 at 13:00 Albumin Human 100 ml @ 100 mls/hr DURING DIALYSIS PRN IV HYPOTENSION DURING HD Last administered on 08/22/18 10:24; Admin Dose 100 MLS/HR; Start 08/22/18 at 10:00 Pantoprazole 80 mg/Sodium Chloride 100 ml @ 10 mls/hr Q10H IV Last administered on 08/23/18 09:18; Admin Dose 10 MLS/HR; Start 08/23/18 at 00:00 Sevelamer Carbonate (Renvela) 2.4 gm WITH MEALS GTB Last administered on 08/23/18 11:29; Admin Dose 2.4 GM; Start 08/23/18 at 11:30 WIN LUCIANO NP Aug 23, 2018 14:12
[2018-08-23] MEDS: CEFAZOLIN 1 GM/50 ML (PMX) 50 ML IVPB SCH (14:28)
[2018-08-23] MEDS ORDERED: ONDANSETRON 4 MG INJ ONE (14:42)
[2018-08-23] MEDS: ONDANSETRON 4 MG INJ IV PRN ×2 (14:44→21:52)
--- NOTE | 2018-08-23 15:03 | CONS ---
Assessment/Plan Assessment/Plan Assessment/Plan (Daily) And spoke to the patient's mother informed her that patient has been put back on a full CODE STATUS. Consultation Date/Type/Reason Admit Date/Time Aug 04, 2018 at 23:10 Initial Consult Date 08/15/18 Requesting Provider: HARPAL AGGARWAL MD Date/Time of Note DATE: 08/23/18 TIME: 15:03 Exam/Review of Systems Exam Vitals Vital Signs Date Temp Pulse Resp B/P (MAP) Pulse Ox O2 O2 Flow FiO2 Time Delivery Rate 08/23/18 118 20 122/75 97 13:30 (91) 08/23/18 Mechanical 13:00 Ventilator 08/23/18 98.5 12:00 08/23/18 30 12:00 Intake and Output 08/22/18 08/22/18 08/23/18 1515:00 23:00 07:00 IntakeIntake Total 90 ml 175 ml 1020 ml OutputOutput Total 3125 ml 15 ml 75 ml BalanceBalance -3035 ml 160 ml 945 ml Results Result Diagram: 08/23/18 0453 08/23/18 0453 Results 24hrs Laboratory Tests Test 08/22/18 23:22 08/22/18 23:50 08/23/18 01:17 08/23/18 04:53 Hemoglobin 8.4 L 9.9 L Hematocrit 27.0 L 31.2 L Platelet Count 379 386 Prothrombin Time 16.1 H Prothrombin Time 1.3 Ratio INR International 1.28 Normalized Ratio Activated 35.9 H Partial Thrombopl ast Time White Blood Count 12.0 H Red Blood Count 3.44 L Mean Corpuscular 90.7 Volume Mean Corpuscular 28.8 L Hemoglobin Mean Corpuscular 31.7 L Hemoglobin Concen t Red Cell 15.6 H Distribution Width Mean Platelet 13.4 H Volume Immature 1.200 H Granulocytes % Neutrophils % 77.4 H Lymphocytes % 12.0 L Monocytes % 7.1 Eosinophils % 1.2 Basophils % 1.1 Nucleated Red 0.0 Blood Cells % Immature 0.140 H Granulocytes # Neutrophils # 9.3 H Lymphocytes # 1.4 Monocytes # 0.9 Eosinophils # 0.1 Basophils # 0.1 Nucleated Red 0.0 Blood Cells # Sodium Level 143 Potassium Level 5.1 Chloride Level 105 Carbon Dioxide 23 Level Anion Gap 15 H Blood Urea 76 H Nitrogen Creatinine 4.23 H Est Glomerular 12 L Filtrat Rate mL/min Glucose Level 105 Calcium Level 8.4 Phosphorus Level 9.2 H Magnesium Level 2.1 Test 08/23/18 07:00 08/23/18 08:10 Blood Gas Blood arterial Specimen Source Arterial Blood 08/23/2018 7:30:00 Date Drawn AM Arterial Blood pH 7.367 (Temp corrected) Arterial Blood 38.5 pCO2 (Temp correct) Arterial Blood 73.7 L pO2 (Temp corrected) Arterial Blood 21.6 L HCO3 Arterial Blood -3.4 L Base Excess Arterial Blood 93.2 L Oxygen Saturation Dajuan Test ACCEPTAB Arterial Blood Left Radial Gas Puncture Site Arterial 0.3 Blood Carboxyhemo globin Arterial Blood 0.1 Methemoglobin Blood Gas A-a O2 95.0 H Differential Oxyhemoglobin 92.8 L Percent Blood Gas 37.0 Temperature Blood Gas 20.0 Respiration Rate Blood Gas Actual 21 Respiration Rate Blood Gas VENT - AC Modality FiO2 30.0 Blood Gas Tidal 400.0 Volume Blood Gas Low 5.0 PEEP Setting Blood Gas TM Notified Whom Blood Gas 08/23/2018 8:13:57 Notified Time AM Lab Scanned REFERENCE LAB Report Medications Medication Current Medications Norepinephrine 250 ml @ 1.875 mls/ hr TITRATE IV Last administered on at 00:41; Admin Dose 5.625 MLS/HR; Start 08/04/18 at 23:15 Morphine Sulfate (morphine) 1 mg Q1H PRN IV PAIN Last administered on 08/17/18at 18:30; Admin Dose 1 MG; Start 08/04/18 at 23:30 Atorvastatin Calcium (Lipitor) 80 mg DAILY@21 PO Last administered on 08/22/18at 20:04; Admin Dose 80 MG; Start 08/05/18 at 21:00 Nitroglycerin/ Dextrose 250 ml @ 1.5 mls/hr TITRATE IV Last administered on 08/05/18at 14:22; Admin Dose 72 MLS/HR; Start 08/05/18 at 01:00 Miscellaneous Information 1 ea NOTE XX ; Start 08/05/18 at 09:00 Acetaminophen (Tylenol Supp) 650 mg Q4H PRN RI TEMP > 37C Last administered on 08/09/18at 04:37; Admin Dose 650 MG; Start 08/05/18 at 11:00 Acetaminophen (Tylenol Liquid) 650 mg Q4H PRN PO TEMP > 37C Last administered on 08/22/18 20:04; Admin Dose 650 MG; Start 08/05/18 at 11:00 Meperidine HCl (Demerol) 25 mg Q4H PRN IV POST OPERATIVE SHIVERING Last administered on 08/05/18 16:31; Admin Dose 25 MG; Start 08/05/18 at 11:00 Eye Lubricant (Akwa Oint) 1 applic Q6 BOTH EYES Last administered on 08/23/18 05:23; Admin Dose 1 APPLIC; Start 08/05/18 at 12:00 Eye Lubricant (Artificial Tears Oph) 2 drop Q6 BOTH EYES Last administered on 08/23/18 11:29; Admin Dose 2 DROP; Start 08/05/18 at 12:00 Insulin Human Regular 100 unit/ Sodium Chloride 100 ml @ 0 mls/hr PER PROTOCOL IV ; Start 08/05/18 at 12:00 Miscellaneous Information (* Miscellaneous Pharmacy Order) Treatment of Hypoglycemia: 1.BG 51... Per protocol XX ; Start 08/05/18 at 12:00 Dextrose (D50w Syringe) 25 ml Q15M PRN IV .DECREASED GLUCOSE; Start 08/05/18 at 12:00 Dextrose (D50w Syringe) 50 ml Q15M PRN IV .DECREASED GLUCOSE; Start 08/05/18 at 12:00 Fentanyl 100 ml @ 2.5 mls/hr TITRATE IV Last administered on 08/23/18 14:32; Admin Dose 10 MLS/HR; Start 08/05/18 at 12:00 Meperidine HCl (Demerol) 12.5 mg Q2H PRN IV POST OPERATIVE SHIVERING; Start 08/05/18 at 17:00 Aspirin (Aspirin) 81 mg DAILY NGT Last administered on 08/23/18 09:15; Admin Dose 81 MG; Start 08/06/18 at 09:00 Multivitamins (Multivitamin) 30 ml DAILY NGT Last administered on 08/23/18 09:15; Admin Dose 30 ML; Start 08/09/18 at 09:00 Zinc Sulfate (Zinc Sulfate) 220 mg DAILY NGT Last administered on 08/23/18 09:16; Admin Dose 220 MG; Start 08/09/18 at 09:00 Folic Acid (Folic Acid) 1 mg DAILY NGT Last administered on 08/23/18 09:16; Admin Dose 1 MG; Start 08/09/18 at 09:00 Ascorbic Acid (Vitamin C) 500 mg DAILY NGT Last administered on 08/23/18 09:15; Admin Dose 500 MG; Start 08/09/18 at 09:00 Albuterol (Ventolin Hfa) 4 puff Q6HWA RESP THERAPY INH Last administered on 08/23/18 07:08; Admin Dose 4 PUFF; Start 08/09/18 at 14:00 Ipratropium [place] (Atrovent Hfa) 4 puff Q6H RESP THERAPY INH Last administered on 08/23/18 07:08; Admin Dose 4 PUFF; Start 08/09/18 at 14:00 IV Flush (NS 10 ml) 10 ml PRN PRN IV IV PROTOCOL; Start 08/11/18 at 16:30 Heparin Sodium (Porcine) (Heparin (1000 Units/ml)) 3,000 unit PRN PRN CATHETER Dialysis Last administered on 08/22/18 13:36; Admin Dose 3,000 UNIT; Start 08/12/18 at 14:30 Labetalol HCl (Labetalol) 10 mg Q4H PRN IV ELEVATED SYSTOLIC BP > 180 Last administered on 08/20/18 16:54; Admin Dose 10 MG; Start 08/14/18 at 19:00 Midazolam HCl 50 ml @ 1 mls/hr TITRATE IV Last administered on 08/20/18 00:16; Admin Dose 5 MLS/HR; Start 08/15/18 at 11:00 Hydralazine HCl (Apresoline) 20 mg Q2 PRN IV ELEVATED SYSTOLIC BP Last administered on 08/22/18 16:18; Admin Dose 20 MG; Start 08/16/18 at 08:00 Metronidazole 100 ml @ 100 mls/hr Q8 IVPB Last administered on 08/23/18 14:29; Admin Dose 100 MLS/HR; Start 08/16/18 at 22:00 Carvedilol (Coreg) 12.5 mg Q6H PO Last administered on 08/23/18 14:29; Admin Dose 12.5 MG; Start 08/17/18 at 01:00 Docusate Sodium (Colace Liquid Cup) 100 mg BID GTB Last administered on 08/22/18 20:03; Admin Dose 100 MG; Start 08/18/18 at 09:00 Clopidogrel Bisulfate (plaVIX) 75 mg DAILY NGT Last administered on 08/23/18 09:15; Admin Dose 75 MG; Start 08/18/18 at 13:30 Cefazolin Sodium 50 ml @ 100 mls/hr Q24H IVPB Last administered on 08/23/18 14:28; Admin Dose 100 MLS/HR; Start 08/19/18 at 14:00 Levofloxacin/ Dextrose 50 ml @ 50 mls/hr Q48H IVPB Last administered on 08/23/18 11:30; Admin Dose 50 MLS/HR; Start 08/19/18 at 12:30 Rifaximin (Xifaxan) 200 mg TID PO Last administered on 08/23/18 14:44; Admin Dose 200 MG; Start 08/19/18 at 13:00 Albumin Human 100 ml @ 100 mls/hr DURING DIALYSIS PRN IV HYPOTENSION DURING HD Last administered on 08/22/18 10:24; Admin Dose 100 MLS/HR; Start 08/22/18 at 10:00 Pantoprazole 80 mg/Sodium Chloride 100 ml @ 10 mls/hr Q10H IV Last administered on 08/23/18 09:18; Admin Dose 10 MLS/HR; Start 08/23/18 at 00:00 Sevelamer Carbonate (Renvela) 2.4 gm WITH MEALS GTB Last administered on 9at 11:29; Admin Dose 2.4 GM; Start 08/23/18 at 11:30 Ondansetron HCl (Zofran Inj) 4 mg Q4H PRN IV NAUSEA AND/OR VOMITING Last administered on 08/23/18 14:44; Admin Dose 4 MG; Start 08/23/18 at 14:30 TIEN HENRY Aug 23, 2018 15:03
--- NOTE | 2018-08-23 18:59 | PN ---
Date/Time of Note Date/Time of Note DATE: 08/23/18 TIME: 18:58 Assessment/Plan Lines/Catheters IV Catheter Type (from Nrsg): Central Line Aguilar in Place (from Nrsg): Yes Assessment/Plan Assessment/Plan SP Tracheostomy Will continue vent support Trach care pulm toilet Subjective 24 Hr Interval Summary Constitutional: improved Pain Control: mild Exam/Review of Systems Vital Signs Vitals Vital Signs Date Temp Pulse Resp B/P (MAP) Pulse Ox O2 O2 Flow FiO2 Time Delivery Rate 08/23/18 112 23 112/67 99 17:30 (82) 08/23/18 30 17:10 08/23/18 Mechanical 17:00 Ventilator 08/23/18 99.4 16:00 Intake and Output 08/22/18 08/22/18 08/23/18 1515:00 23:00 07:00 IntakeIntake Total 90 ml 175 ml 1020 ml OutputOutput Total 3125 ml 15 ml 75 ml BalanceBalance -3035 ml 160 ml 945 ml Exam Eyes: nl conjunctiva, EOMI, nl lids, nl sclera ENMT: nl external ears & nose, nl lips & teeth, nl nasal mucosa & septum, mucosa pink and moist Neck: supple, non-tender Respiratory: clear to auscultation, normal air movement Cardiovascular: regular rate and rhythm, nl pulses Gastrointestinal: soft, nl liver, spleen, non-tender Musculoskeletal: nl extremities to inspection, nl gait and stance Results Result Diagram: 08/23/18 0453 08/23/18 0453 KRISTOFER BAKER MD Aug 23, 2018 18:59
[2018-08-23] MEDS: ATORVASTATIN 80 MG TAB PO SCH (20:21)
[2018-08-23] MEDS: morphine 2 MG INJ IV PRN (22:22)
[2018-08-24] VITALS (62 sets, daily range): BP systolic 98–142; BP diastolic 46–94; PULSE 106–121; RESP 0–30
[2018-08-24] MEDS: IPRATROPIUM (HFA) 12.9 GM INHALER INH SCH ×4 (01:42→19:17)
[2018-08-24] MEDS: FENTAnyl (DRIP) 1000 mcg/100mL 100 ML IV SCH ×3 (02:10→22:27)
[2018-08-24] MEDS ORDERED: METOCLOPRAMIDE 10 MG INJ IV ONE (02:30)
[2018-08-24] MEDS: morphine 2 MG INJ IV PRN (02:57)
[2018-08-24] MEDS: OCULAR LUBRICANT 3.5 GM OPH OINT BOTH EYES SCH ×4 (05:09→23:26)
[2018-08-24] MEDS: metroNIDAZOLE 500 MG/NS (PMX) 100 ML IVPB SCH ×3 (05:09→21:01)
[2018-08-24] MEDS: ARTIFICIAL TEARS 15 ML OPH BOTH EYES SCH ×4 (05:09→23:26)
[2018-08-24] MEDS: PANTOPRAZOLE IV 80 MG in SOD CHLORIDE 0.9% 100 ML IV SCH ×2 (06:03→16:22)
[2018-08-24] MEDS: SEVELAMER CARBONATE 2.4 GM PKT GTB SCH ×3 (07:35→16:46)
--- NOTE | 2018-08-24 07:40 | CONS ---
Assessment/Plan Assessment/Plan Hospital Course 38 yo F w/ reported Hx of HTN and DM2 who is admitted to the [facility] ICU s/p vfib cardiac arrest. She is now s/p cardiac catheterization w/ 2 coronary stents. now s/p targeted temperature therapy. s/p trach on 08/22 Neurology is consulted given persistent encephalopathy...which is likely multifactorial -- toxic-metabolic, medications, hypoxic-ischemic...and which has shown some improvement with time. MRI brain is notable for multiple bihemispheric infarcts... likely of cardioembolic origin in the context of her recent arrest. Hypercoagulability panel is most notable for lupus anticoagulant, which, in this clinical context, raises concern for antiphospholipid syndrome. Protein S is also deficient.. EEG is without epileptiform activity CUS is unrevealing. Ammonia, RPR level wnl. ESR >130 Echo on 08/05 in unrevealing. P: Start warfarin for possible APS; hold asa when INR is therapeutic (goal 2-3); Re peat Lupus anticoagulant in ~ 3 months for confirmation.. Add KAILEY screen... OK to cont Lipitor daily for stroke prevention PT/OT as able Other medical management per primary Will follow clinically Consultation Date/Type/Reason Admit Date/Time Aug 04, 2018 at 23:10 Type of Consult Neurology Reason for Consultation stroke, coma Requesting Provider: HARPAL AGGARWAL MD Date/Time of Note DATE: 08/24/18 TIME: 07:40 24 HR Interval Summary Free Text/Dictation Continues critical care. Subjective hx not possible: pt non-verbal Exam Vital Signs Vitals Vital Signs Date Temp Pulse Resp B/P (MAP) Pulse Ox O2 O2 Flow FiO2 Time Delivery Rate 08/24/18 99.2 113 23 128/80 97 Mechanical 07:00 (96) Ventilator 08/24/18 30 05:20 Intake and Output 08/23/18 08/23/18 08/24/18 1515:00 23:00 07:00 IntakeIntake Total 740 ml 370 ml 310 ml OutputOutput Total 40 ml 155 ml 103 ml BalanceBalance 700 ml 215 ml 207 ml Exam PE: Gen Appearance: No Apparent Distress HEENT: Has trach Cardiovascular: Regular rate Abdomen: Soft; PEG Extremities: Dry NE: The patient was asleep though easily arousable to voice. Able to mouth words. Follows simple axial and appendicular commands Cranial nerve examination was limited by mental status. Eyes were dysconjugate. . Pupils were equal and reactive to light. There was no afferent pupillary defect. Funduscopic examination was limited. Face was grossly symmetric, w/ present corneal and cough reflexes. Tone was normal. Muscle bulk was normal. I did not see fasciculations. The patient had spontaneous movement of her hands and feet. Coordination and gait testing was limited by mental status. Arm and leg reflexes were within normal limits and symmetric. Alvarez's sign was absent. Plantar responses were flexor. RANDY GARCIA Aug 24, 2018 07:40 KAYCEE ESCOBEDO NP Aug 24, 2018 12:02
[2018-08-24] MEDS: ALBUTEROL HFA 8 GM INHALER INH SCH ×3 (07:55→19:17)
[2018-08-24] MEDS: DOCUSATE SODIUM 10 MG/ML (10ML CUP) GTB SCH ×2 (08:03→21:00)
[2018-08-24] MEDS: RIFAXIMIN 200 MG TAB PO SCH ×3 (08:08→21:01)
[2018-08-24] MEDS: ASPIRIN 81 MG TAB NGT SCH (08:08)
[2018-08-24] MEDS: ASCORBIC ACID 500 MG TAB NGT SCH (08:08)
[2018-08-24] MEDS: MULTIVITAMINS 30 ML CUP NGT SCH (08:08)
[2018-08-24] MEDS: CLOPIDOGREL 75 MG TAB NGT SCH (08:08)
[2018-08-24] MEDS: ZINC SULFATE 220 MG CAP NGT SCH (08:08)
[2018-08-24] MEDS: FOLIC ACID 1 MG TAB NGT SCH (08:08)
--- NOTE | 2018-08-24 08:08 | PN ---
DATE: 08/24/2018 SUBJECTIVE: The patient is stable on full ventilatory support. No other acute events noted. No hemo ptysis, hematemesis or hematochezia. OBJECTIVE: VITAL SIGNS: Blood pressure is 128/60, respirations 22, pulse 113, temperature 99.2. HEENT: Head is normocephalic. NECK: Supple. HEART: Regular rate. LUNGS: Show diminished breath sounds at the base. ABDOMEN: Soft, nontender to palpation without rebound or guarding. EXTREMITIES: Negative for clubbing, cyanosis. Positive edema. DERMATOLOGIC: No rashes. MUSCULOSKELETAL: No joint effusion. NEUROLOGIC: No change in exam. MEDICATIONS: The patient's medications have been reviewed. LABORATORY DATA: Has been reviewed. Cultures have been reviewed. IMAGING STUDIES: Have been reviewed. ASSESSMENT AND PLAN: 1. Anuric acute kidney injury with unknown baseline creatinine. Etiology secondary to acute tubular necrosis. The patient remains dialysis dependent. Plan for dialysis today and tomorrow for solute clearance as the patient is hypercatabolic. 2. Volume overload, improving. Continue ultrafiltration dialysis. 3. Anemia. Monitor hemoglobin and hematocrit levels. Continue Epogen. 4. Tracheal bleed, resolved. Etiology was secondary to recent trach placement, possible component o f uremic bleeding. The patient is status post DDAVP. Continue to monitor. 5. Mineral bone disorder, monitor calcium and phosphorus levels. The patient remains hyperphosphate rey. Continue phosphatase binders. Will increase dialysis with solute clearance. 6. Ventilator-dependent respiratory failure. Vent settings and ABG was reviewed. Continue to monit or. 7. Coronary artery disease with ST elevated myocardial infarction. The patient is status post cardi ac catheterization and percutaneous coronary intervention. 8. Sepsis, status post shock. The patient has completed an antibiotic course. 9. Acute encephalopathy, etiology is toxic metabolic secondary to acute cerebrovascular accident. C ontinue medical management. 10. Acute CVA. Continue current treatment plan. 11. Dysphagia. Continue tube feeding. 12. Morbid obesity. 13. Status post cardiac arrest. Dictated By: BHUMI REDDY DO NR/NTS Conf#: [id number] DID#: [id number] CC: THOMAS RILEY MD; DANIAL TUCKER MD; LAUREN GREWAL MD;*End*
--- NOTE | 2018-08-24 08:22 | PN ---
Date/Time of Note Date/Time of Note DATE: 08/24/18 TIME: 08:21 Assessment/Plan VTE Prophylaxis Risk score (from Nsg)>0 risk: 9 SCD applied (from Nsg): Yes Pharmacological prophylaxis: other Lines/Catheters IV Catheter Type (from Nrsg): PICC Line Central line still needed: Yes Urinary Cath still in place: Yes Reason Cath still needed: terminal illness/intractable pain Assessment/Plan Assessment/Plan 1. Acute hypoxic respiratory failure - patient remains tach to vent. Per Pulm, will plan for SIMV mode today with daily weaning trials - Pulm on board for vent management. Appreciate consultation - Dr. Wilson consultation appreciated for trach placement - GI consultation appreciated for PEG placement 2. Acute toxic/metabolic encephalopathy- improving - Patient following commands and able to answer questions appropriately - Neurology on board and appreciate recommendations. Imaging of head noted with bilateral CVA and most likely component of anoxic encephalopathy due to cardiac arrest 3. Bilateral CVA - Found on MRI, likely thromboembolic secondary to cardiopulmonary arrest per neurology - Neuro input appreciated and continue on aspirin and lipitor 4. Anemia, blood loss and renal disease- stable - no further episodes of bleeding appreciated. - ENT consultation appreciated. - Hgb remains stable and no need for transfusion at this time 5. Bilateral Pneumonia - CXR noted - Pulm on board and appreciate recommendations. Will continue current management 6. Septic shock secondary to PNA and bacteremia- resolved - WBC continues trending downward - Blood cultures and sputum culture results noted. - ID on board 7. CAD s/p PCI x2 - Cardiology on board and appreciate recommendations. Stressed importance of continuing DAPT given recent stent placements and high risk of restenosis - s/p emergent Cath 08/05 with successful PTCA and stenting of proximal and mid LAD, PTCA of the large first diagonal and thrombectomy of the LAD - Repeat PCI on 08/07 performed with stenting to LCx - plans for stenting of RCA prior to discharge if possible 8. Renal failure on HD - Nephrology on board and appreciate recommendations. Continue HD - secondary to septic shock, ATN vs prerenal vs contrast induced nephropathy - will avoid nephrotoxic agents 9. Diabetes - A1c noted - ISS not needed 10. S/p V-fib cardiac arrest secondary to STEMI - Completed hypothermia protocol 11. Abdominal pain - most likely secondary to diarrhea - will start on lactobacillus - KUB negative for acute abnormalities 12. Disposition - continue weaning from vent as tolerated. Continue titrating down/off Fentanyl - CM on board for placement >30 minutes of critical care time spent with patient. Result Diagram: 08/24/18 0400 08/24/18 0400 Results 24hrs Laboratory Tests Test 08/24/18 04:00 08/24/18 04:55 White Blood Count 11.7 H Red Blood Count 2.84 L Hemoglobin 8.2 L Hematocrit 26.5 L Mean Corpuscular Volume 93.3 Mean Corpuscular Hemoglobin 28.9 L Mean Corpuscular Hemoglobin Concent 30.9 L Red Cell Distribution Width 16.0 H Platelet Count 290 # Mean Platelet Volume 13.9 H Immature Granulocytes % 1.700 H Neutrophils % 74.3 Lymphocytes % 13.9 L Monocytes % 6.6 Eosinophils % 2.9 Basophils % 0.6 Nucleated Red Blood Cells % 0.0 Immature Granulocytes # 0.200 H Neutrophils # 8.7 H Lymphocytes # 1.6 Monocytes # 0.8 Eosinophils # 0.3 Basophils # 0.1 Nucleated Red Blood Cells # 0.0 Sodium Level 142 Potassium Level 5.3 H Chloride Level 109 Carbon Dioxide Level 21 Anion Gap 12 Blood Urea Nitrogen 95 H Creatinine 4.71 H Est Glomerular Filtrat Rate mL/min 10 L Glucose Level 100 Calcium Level 7.2 L Phosphorus Level 8.6 H Magnesium Level 2.0 Lab Scanned Report BLOOD TRANSFUSION Subjective 24 Hr Interval Summary Free Text/Dictation Patient denies any pain or acute issues. Able to nod/shake head to questions and moving all extremities. No acute overnight events. Exam/Review of Systems Exam Vitals Vital Signs Date Temp Pulse Resp B/P (MAP) Pulse Ox O2 O2 Flow FiO2 Time Delivery Rate 08/24/18 113 22 97 30 08:08 08/24/18 99.2 128/80 Mechanical 07:00 (96) Ventilator Intake and Output 08/23/18 08/23/18 08/24/18 1515:00 23:00 07:00 IntakeIntake Total 740 ml 370 ml 310 ml OutputOutput Total 40 ml 155 ml 103 ml BalanceBalance 700 ml 215 ml 207 ml Exam General: Patient is laying in bed, shaking head to questions appropriately. No acute distress Eyes: EOMI, pupils reactive to light. Neck: Supple, trach in place. no active bleeding appreciated Respiratory: Diminished breath sounds. no wheezing appreciated Cardiovascular: S1, S2, regular rhythm, tachycardia, no obvious murmurs Gastrointestinal: soft, nontender to palpation, nondistended, bowel sounds heard. PEG in place Skin: No new skin lesions Neuro: moving all extremities to commands. Results Results 24hrs Laboratory Tests Test 08/24/18 04:00 08/24/18 04:55 White Blood Count 11.7 H Red Blood Count 2.84 L Hemoglobin 8.2 L Hematocrit 26.5 L Mean Corpuscular Volume 93.3 Mean Corpuscular Hemoglobin 28.9 L Mean Corpuscular Hemoglobin Concent 30.9 L Red Cell Distribution Width 16.0 H Platelet Count 290 # Mean Platelet Volume 13.9 H Immature Granulocytes % 1.700 H Neutrophils % 74.3 Lymphocytes % 13.9 L Monocytes % 6.6 Eosinophils % 2.9 Basophils % 0.6 Nucleated Red Blood Cells % 0.0 Immature Granulocytes # 0.200 H Neutrophils # 8.7 H Lymphocytes # 1.6 Monocytes # 0.8 Eosinophils # 0.3 Basophils # 0.1 Nucleated Red Blood Cells # 0.0 Sodium Level 142 Potassium Level 5.3 H Chloride Level 109 Carbon Dioxide Level 21 Anion Gap 12 Blood Urea Nitrogen 95 H Creatinine 4.71 H Est Glomerular Filtrat Rate mL/min 10 L Glucose Level 100 Calcium Level 7.2 L Phosphorus Level 8.6 H Magnesium Level 2.0 Lab Scanned Report BLOOD TRANSFUSION Medications Medication Current Medications Norepinephrine 250 ml @ 1.875 mls/ hr TITRATE IV Last administered on 08/10/18at 00:41; Admin Dose 5.625 MLS/HR; Start 08/04/18 at 23:15 Morphine Sulfate (morphine) 1 mg Q1H PRN IV PAIN Last administered on 08/24/18at 02:57; Admin Dose 1 MG; Start 08/04/18 at 23:30 Atorvastatin Calcium (Lipitor) 80 mg DAILY@21 PO Last administered on 08/23/18at 20:21; Admin Dose 80 MG; Start 08/05/18 at 21:00 Nitroglycerin/ Dextrose 250 ml @ 1.5 mls/hr TITRATE IV Last administered on 08/05/18at 14:22; Admin Dose 72 MLS/HR; Start 08/05/18 at 01:00 Miscellaneous Information 1 ea NOTE XX ; Start 08/05/18 at 09:00 Acetaminophen (Tylenol Supp) 650 mg Q4H PRN [place] TEMP > 37C Last administered on 08/09/18 04:37; Admin Dose 650 MG; Start 08/05/18 at 11:00 Acetaminophen (Tylenol Liquid) 650 mg Q4H PRN PO TEMP > 37C Last administered on 08/22/18 20:04; Admin Dose 650 MG; Start 08/05/18 at 11:00 Meperidine HCl (Demerol) 25 mg Q4H PRN IV POST OPERATIVE SHIVERING Last administered on 08/05/18 16:31; Admin Dose 25 MG; Start 08/05/18 at 11:00 Eye Lubricant (Akwa Oint) 1 applic Q6 BOTH EYES Last administered on 08/24/18 05:09; Admin Dose 1 APPLIC; Start 08/05/18 at 12:00 Eye Lubricant (Artificial Tears Oph) 2 drop Q6 BOTH EYES Last administered on 08/24/18 05:09; Admin Dose 2 DROP; Start 08/05/18 at 12:00 Insulin Human Regular 100 unit/ Sodium Chloride 100 ml @ 0 mls/hr PER PROTOCOL IV ; Start 08/05/18 at 12:00 Miscellaneous Information (* Miscellaneous Pharmacy Order) Treatment of Hypoglycemia: 1.BG 51... Per protocol XX ; Start 08/05/18 at 12:00 Dextrose (D50w Syringe) 25 ml Q15M PRN IV .DECREASED GLUCOSE; Start 08/05/18 at 12:00 Dextrose (D50w Syringe) 50 ml Q15M PRN IV .DECREASED GLUCOSE; Start 08/05/18 at 12:00 Fentanyl 100 ml @ 2.5 mls/hr TITRATE IV Last administered on 08/24/18 02:10; Admin Dose 10 MLS/HR; Start 08/05/18 at 12:00 Meperidine HCl (Demerol) 12.5 mg Q2H PRN IV POST OPERATIVE SHIVERING; Start 08/05/18 at 17:00 Aspirin (Aspirin) 81 mg DAILY NGT Last administered on 08/24/18 08:08; Admin Dose 81 MG; Start 08/06/18 at 09:00 Multivitamins (Multivitamin) 30 ml DAILY NGT Last administered on 08/24/18 08:08; Admin Dose 30 ML; Start 08/09/18 at 09:00 Zinc Sulfate (Zinc Sulfate) 220 mg DAILY NGT Last administered on 08/24/18 08:08; Admin Dose 220 MG; Start 08/09/18 at 09:00 Folic Acid (Folic Acid) 1 mg DAILY NGT Last administered on 08/24/18 08:08; Admin Dose 1 MG; Start 08/09/18 at 09:00 Ascorbic Acid (Vitamin C) 500 mg DAILY NGT Last administered on 08/24/18 08:08; Admin Dose 500 MG; Start 08/09/18 at 09:00 Albuterol (Ventolin Hfa) 4 puff Q6HWA RESP THERAPY INH Last administered on 08/24/18 07:55; Admin Dose 4 PUFF; Start 08/09/18 at 14:00 Ipratropium [place] (Atrovent Hfa) 4 puff Q6H RESP THERAPY INH Last administered on 08/24/18 07:54; Admin Dose 4 PUFF; Start 08/09/18 at 14:00 IV Flush (NS 10 ml) 10 ml PRN PRN IV IV PROTOCOL; Start 08/11/18 at 16:30 Heparin Sodium (Porcine) (Heparin (1000 Units/ml)) 3,000 unit PRN PRN CATHETER Dialysis Last administered on 08/22/18 13:36; Admin Dose 3,000 UNIT; Start 08/12/18 at 14:30 Labetalol HCl (Labetalol) 10 mg Q4H PRN IV ELEVATED SYSTOLIC BP > 180 Last administered on 08/20/18 16:54; Admin Dose 10 MG; Start 08/14/18 at 19:00 Midazolam HCl 50 ml @ 1 mls/hr TITRATE IV Last administered on 08/20/18 00:16; Admin Dose 5 MLS/HR; Start 08/15/18 at 11:00 Hydralazine HCl (Apresoline) 20 mg Q2 PRN IV ELEVATED SYSTOLIC BP Last administered on 08/22/18 16:18; Admin Dose 20 MG; Start 08/16/18 at 08:00 Metronidazole 100 ml @ 100 mls/hr Q8 IVPB Last administered on 08/24/18 05:09; Admin Dose 100 MLS/HR; Start 08/16/18 at 22:00 Carvedilol (Coreg) 12.5 mg Q6H PO Last administered on 08/24/18 01:24; Admin Dose 12.5 MG; Start 08/17/18 at 01:00 Docusate Sodium (Colace Liquid Cup) 100 mg BID GTB Last administered on 08/23/18 20:21; Admin Dose 100 MG; Start 08/18/18 at 09:00 Clopidogrel Bisulfate (plaVIX) 75 mg DAILY NGT Last administered on 08/24/18 08:08; Admin Dose 75 MG; Start 08/18/18 at 13:30 Cefazolin Sodium 50 ml @ 100 mls/hr Q24H IVPB Last administered on 08/23/18 14:28; Admin Dose 100 MLS/HR; Start 08/19/18 at 14:00 Levofloxacin/ Dextrose 50 ml @ 50 mls/hr Q48H IVPB Last administered on 9at 11:30; Admin Dose 50 MLS/HR; Start 08/19/18 at 12:30 Rifaximin (Xifaxan) 200 mg TID PO Last administered on 08/24/18 08:08; Admin Dose 200 MG; Start 08/19/18 at 13:00 Albumin Human 100 ml @ 100 mls/hr DURING DIALYSIS PRN IV HYPOTENSION DURING HD Last administered on 08/22/18 10:24; Admin Dose 100 MLS/HR; Start 08/22/18 at 10:00 Pantoprazole 80 mg/Sodium Chloride 100 ml @ 10 mls/hr Q10H IV Last administered on 08/24/18 06:03; Admin Dose 10 MLS/HR; Start 08/23/18 at 00:00 Sevelamer Carbonate (Renvela) 2.4 gm WITH MEALS GTB Last administered on 08/23/18 17:51; Admin Dose 2.4 GM; Start 08/23/18 at 11:30 Ondansetron HCl (Zofran Inj) 4 mg Q4H PRN IV NAUSEA AND/OR VOMITING Last administered on 08/23/18 21:52; Admin Dose 4 MG; Start 08/23/18 at 14:30 THOMAS RILEY MD Aug 24, 2018 08:21
--- NOTE | 2018-08-24 10:50 | CONS ---
Consult Date/Type/Reason Admit Date/Time Aug 04, 2018 at 23:10 Initial Consult Date 08/05/18 Type of Consultation: cv Requesting Provider: HARPAL AGGARWAL MD Date/Time of Note DATE: 08/24/18 TIME: 10:47 Subjective Interventional cardiology follow-up progress note/critical care Subjective: Events noted discussed with the staff and physicians including Dr Leos Patient remains on the vent s/p trach No V tachycardia or V fibrillation. BP is stable pt with less bleeding at PEG trach sites. she denies any cp to me events noted s/p PCI 100% occluded LAD 08/04 S/P PCI LCX/ OM s/p trach 08/22/18 Objective: General: Obese female no acute distress HEENT: NC/AT. pupils are equal. round. NECK: . no stridor. s/p trach CV: RRR. systolic murmur; no gallop or rubs. PULM: no wheezing + diffuse rhonchi. GI: Obese SOFT, NT, ND, no rebound or guarding s/pPEG Extremity: +B/L LE edema. no clubbing. neuro: awake and follows commands O x2 at least Psych: Calm now rectal: deferred EKG August 06, 2018 was personally within normal sinus rhythm. T wave inversions anterior and inferior leads ECG 08/07: NSR ST T abn c/w ant/lat ischemia CXR 08/14: Nonspecific patchy bilateral pulmonary opacity, mildly improved on the right. No pneumothorax. Endotracheal tube, nasogastric tube, and right-sided PICC line remain in place. Stable mild cardiomegaly. The osseous structures are remarkable for degenerative enthesopathy of the spine. Chest x-ray done August 06 shows:No evidence for active cardiopulmonary disease. CXR 08/19: Diffuse bilateral reticular nodular infiltrates unchanged. Question bronchopneumonia versus failure. ECHO personally reviewed Normal left ventricular cavity size. Normal left ventricular wall thickness. Ejection fraction is visually estimated at 55-65 %. Normal appearance of the mitral valve. Mitral valve is not well visualized. No mitral valve regurgitation is seen. Aortic valve not well visualized. No aortic regurgitation. Normal appearance of the tricuspid valve. Unable to obtain RVSP due to minimal presence of tricuspid regurgitation. No evidence of tricuspid regurgitation. Normal pericardium with no significant pericardial effusion. suboptimal study. Objective Vitals Vital Signs Date Temp Pulse Resp B/P (MAP) Pulse Ox O2 O2 Flow FiO2 Time Delivery Rate 08/24/18 119 27 124/76 97 Mechanical 10:00 (92) Ventilator 08/24/18 30 08:08 08/24/18 99.2 07:00 Intake and Output 08/23/18 08/23/18 08/24/18 1515:00 23:00 07:00 IntakeIntake Total 740 ml 370 ml 430 ml OutputOutput Total 40 ml 155 ml 103 ml BalanceBalance 700 ml 215 ml 327 ml Results/Medications Result Diagram: 08/24/18 0400 08/24/18 0400 Results 24 hrs Laboratory Tests Test 08/24/18 04:00 08/24/18 04:55 White Blood Count 11.7 H Red Blood Count 2.84 L Hemoglobin 8.2 L Hematocrit 26.5 L Mean Corpuscular Volume 93.3 Mean Corpuscular Hemoglobin 28.9 L Mean Corpuscular Hemoglobin Concent 30.9 L Red Cell Distribution Width 16.0 H Platelet Count 290 # Mean Platelet Volume 13.9 H Immature Granulocytes % 1.700 H Neutrophils % 74.3 Lymphocytes % 13.9 L Monocytes % 6.6 Eosinophils % 2.9 Basophils % 0.6 Nucleated Red Blood Cells % 0.0 Immature Granulocytes # 0.200 H Neutrophils # 8.7 H Lymphocytes # 1.6 Monocytes # 0.8 Eosinophils # 0.3 Basophils # 0.1 Nucleated Red Blood Cells # 0.0 Sodium Level 142 Potassium Level 5.3 H Chloride Level 109 Carbon Dioxide Level 21 Anion Gap 12 Blood Urea Nitrogen 95 H Creatinine 4.71 H Est Glomerular Filtrat Rate mL/min 10 L Glucose Level 100 Calcium Level 7.2 L Phosphorus Level 8.6 H Magnesium Level 2.0 Lab Scanned Report BLOOD TRANSFUSION Medications Current Medications Norepinephrine 250 ml @ 1.875 mls/ hr TITRATE IV Last administered on 08/10/18at 00:41; Admin Dose 5.625 MLS/HR; Start 08/04/18 at 23:15 Morphine Sulfate (morphine) 1 mg Q1H PRN IV PAIN Last administered on 08/24/18at 02:57; Admin Dose 1 MG; Start 08/04/18 at 23:30 Atorvastatin Calcium (Lipitor) 80 mg DAILY@21 PO Last administered on 08/23/18at 20:21; Admin Dose 80 MG; Start 08/05/18 at 21:00 Nitroglycerin/ Dextrose 250 ml @ 1.5 mls/hr TITRATE IV Last administered on 08/05/18at 14:22; Admin Dose 72 MLS/HR; Start 08/05/18 at 01:00 Miscellaneous Information 1 ea NOTE XX ; Start 08/05/18 at 09:00 Acetaminophen (Tylenol Supp) 650 mg Q4H PRN [place] TEMP > 37C Last administered on 08/09/18at 04:37; Admin Dose 650 MG; Start 08/05/18 at 11:00 Acetaminophen (Tylenol Liquid) 650 mg Q4H PRN PO TEMP > 37C Last administered on 08/22/18 20:04; Admin Dose 650 MG; Start 08/05/18 at 11:00 Meperidine HCl (Demerol) 25 mg Q4H PRN IV POST OPERATIVE SHIVERING Last administered on 08/05/18at 16:31; Admin Dose 25 MG; Start 08/05/18 at 11:00 Eye Lubricant (Akwa Oint) 1 applic Q6 BOTH EYES Last administered on 08/24/18 05:09; Admin Dose 1 APPLIC; Start 08/05/18 at 12:00 Eye Lubricant (Artificial Tears Oph) 2 drop Q6 BOTH EYES Last administered on 08/24/18 05:09; Admin Dose 2 DROP; Start 08/05/18 at 12:00 Insulin Human Regular 100 unit/ Sodium Chloride 100 ml @ 0 mls/hr PER PROTOCOL IV ; Start 08/05/18 at 12:00 Miscellaneous Information (* Miscellaneous Pharmacy Order) Treatment of Hypoglycemia: 1.BG 51... Per protocol XX ; Start 08/05/18 at 12:00 Dextrose (D50w Syringe) 25 ml Q15M PRN IV .DECREASED GLUCOSE; Start 08/05/18 at 12:00 Dextrose (D50w Syringe) 50 ml Q15M PRN IV .DECREASED GLUCOSE; Start 08/05/18 at 12:00 Fentanyl 100 ml @ 2.5 mls/hr TITRATE IV Last administered on 08/24/18 02:10; Admin Dose 10 MLS/HR; Start 08/05/18 at 12:00 Meperidine HCl (Demerol) 12.5 mg Q2H PRN IV POST OPERATIVE SHIVERING; Start 08/05/18 at 17:00 Aspirin (Aspirin) 81 mg DAILY NGT Last administered on 08/24/18 08:08; Admin Dose 81 MG; Start 08/06/18 at 09:00 Multivitamins (Multivitamin) 30 ml DAILY NGT Last administered on 08/24/18 08:08; Admin Dose 30 ML; Start 08/09/18 at 09:00 Zinc Sulfate (Zinc Sulfate) 220 mg DAILY NGT Last administered on 08/24/18 08:08; Admin Dose 220 MG; Start 08/09/18 at 09:00 Folic Acid (Folic Acid) 1 mg DAILY NGT Last administered on 08/24/18 08:08; Admin Dose 1 MG; Start 08/09/18 at 09:00 Ascorbic Acid (Vitamin C) 500 mg DAILY NGT Last administered on 08/24/18 08:08; Admin Dose 500 MG; Start 08/09/18 at 09:00 Albuterol (Ventolin Hfa) 4 puff Q6HWA RESP THERAPY INH Last administered on 08/24/18 07:55; Admin Dose 4 PUFF; Start 08/09/18 at 14:00 Ipratropium [place] (Atrovent Hfa) 4 puff Q6H RESP THERAPY INH Last administered on 08/24/18 07:54; Admin Dose 4 PUFF; Start 08/09/18 at 14:00 IV Flush (NS 10 ml) 10 ml PRN PRN IV IV PROTOCOL; Start 08/11/18 at 16:30 Heparin Sodium (Porcine) (Heparin (1000 Units/ml)) 3,000 unit PRN PRN CATHETER Dialysis Last administered on 08/22/18 13:36; Admin Dose 3,000 UNIT; Start 08/12/18 at 14:30 Labetalol HCl (Labetalol) 10 mg Q4H PRN IV ELEVATED SYSTOLIC BP > 180 Last administered on 08/20/18 16:54; Admin Dose 10 MG; Start 08/14/18 at 19:00 Midazolam HCl 50 ml @ 1 mls/hr TITRATE IV Last administered on 08/20/18 00:16; Admin Dose 5 MLS/HR; Start 08/15/18 at 11:00 Hydralazine HCl (Apresoline) 20 mg Q2 PRN IV ELEVATED SYSTOLIC BP Last administered on 08/22/18 16:18; Admin Dose 20 MG; Start 08/16/18 at 08:00 Metronidazole 100 ml @ 100 mls/hr Q8 IVPB Last administered on 08/24/18 05:09; Admin Dose 100 MLS/HR; Start 08/16/18 at 22:00 Carvedilol (Coreg) 12.5 mg Q6H PO Last administered on 08/24/18 01:24; Admin Dose 12.5 MG; Start 08/17/18 at 01:00 Docusate Sodium (Colace Liquid Cup) 100 mg BID GTB Last administered on 08/23/18 20:21; Admin Dose 100 MG; Start 08/18/18 at 09:00 Clopidogrel Bisulfate (plaVIX) 75 mg DAILY NGT Last administered on 08/24/18 08:08; Admin Dose 75 MG; Start 08/18/18 at 13:30 Cefazolin Sodium 50 ml @ 100 mls/hr Q24H IVPB Last administered on 08/23/18 14:28; Admin Dose 100 MLS/HR; Start 08/19/18 at 14:00 Levofloxacin/ Dextrose 50 ml @ 50 mls/hr Q48H IVPB Last administered on 08/23/18 11:30; Admin Dose 50 MLS/HR; Start 08/19/18 at 12:30 Rifaximin (Xifaxan) 200 mg TID PO Last administered on 08/24/18 08:08; Admin D ose 200 MG; Start 08/19/18 at 13:00 Albumin Human 100 ml @ 100 mls/hr DURING DIALYSIS PRN IV HYPOTENSION DURING HD Last administered on 08/22/18 10:24; Admin Dose 100 MLS/HR; Start 08/22/18 at 10:00 Pantoprazole 80 mg/Sodium Chloride 100 ml @ 10 mls/hr Q10H IV Last administered on 08/24/18 06:03; Admin Dose 10 MLS/HR; Start 08/23/18 at 00:00 Sevelamer Carbonate (Renvela) 2.4 gm WITH MEALS GTB Last administered on 08/23/18 17:51; Admin Dose 2.4 GM; Start 08/23/18 at 11:30 Ondansetron HCl (Zofran Inj) 4 mg Q4H PRN IV NAUSEA AND/OR VOMITING Last administered on 08/23/18at 21:52; Admin Dose 4 MG; Start 08/23/18 at 14:30 Lactobacillus Acidophilus/ Rhamnosus (Culturelle) 1 cap TID GTB ; Start 08/24/18 at 13:00 Assessment/Plan Hospital Course (Demo Recall) 1. s/p V. fib cardiac arrest 2. Acute myocardial infarction 3. Status post emergent PCI of the 100% occluded LAD as well as PTCA of the diagonal and PCI LCX/ OM 4. Diabetes 5. Respiratory failure status post intubation on the vent 6. Hypertension 7. Renal failure : acute on chronic 8. Likely history of congestive heart failure 9. Dyslipidemia 10. Encephalopathy: Clear anoxic brain injury on hypothermia protocol 11. Morbid obesity 12. Anemia 13. elevated LFT 14. fever, bacteremia pneumonia 15. Malnutrition, anasarca . 16. septic shock and bacteremia 17. oropharyngeal bleedig 18. CVA Recommendations: Continue with aspirin plavix Antibiotic management as per ID recommendation HD as per renal Vent support respiratory care as per internal medicine and pulmonary consultants. s/p Trach now cont Coreg as tolerated/needed Monitor renal function. f/u renal consult rec regarding hemodialysis PPI . Transfusion prn given her severe anemia and MO/ VF pt still has a high grade 90% proximal RCA Stenosis. WILL consider PCI RCA at a later time if it is felt by renal that renal function is not expected to recover and when the bleeding is stopped. for now will monitor only CODE STATUS was DNR, but now back to full code More than 32 minutes of critical care time was for management treatment is critically patient excluding any procedures Thank you for his referral. We will continue to follow along with you as needed over the weekend. LOIS JOHNSON MD [facility] LOIS JOHNSON MD Aug 24, 2018 10:50
[2018-08-24] MEDS: LACTOBACILLUS RHAMNOSUS CAP GTB SCH ×2 (12:10→21:01)
--- NOTE | 2018-08-24 13:18 | CONS ---
Consult Date/Type/Reason Admit Date/Time Aug 04, 2018 at 23:10 Initial Consult Date 08/05/18 Type of Consult Pulmonary Requesting Provider: HARPAL AGGARWAL MD Date/Time of Note DATE: 08/24/18 TIME: 13:18 Subjective Patient stable this morning. Continues fentanyl no respiratory distress. Objective Vital Signs Date Temp Pulse Resp B/P (MAP) Pulse Ox O2 O2 Flow FiO2 Time Delivery Rate 08/24/18 117 22 119/71 97 Mechanical 12:05 (87) Ventilator T Tube Trach Collar 08/24/18 30 11:51 08/24/18 99.2 07:00 Intake and Output 08/23/18 08/23/18 08/24/18 1515:00 23:00 07:00 IntakeIntake Total 740 ml 370 ml 430 ml OutputOutput Total 40 ml 155 ml 103 ml BalanceBalance 700 ml 215 ml 327 ml Exam GENERAL: Well-nourished well-developed lady orally intubated on mechanical ventilation VITAL SIGNS: per chart NECK: Supple. No JVD or lymphadenopathy. CARDIAC EXAM: S1, S2. No added sounds or murmurs. CHEST: Diminished air entry bilaterally ABDOMEN: Mildly distended but no guarding or rebound EXTREMITIES: No cyanosis, clubbing edema +2 NEUROLOGIC: Generalized weakness. Vent Setting Ventilator Support Mode: AC Fraction of Inspired Oxygen pe: 30 Positive End Expiratory Pressu: 5.0 Results/Medications Result Diagram: 08/24/18 0400 08/24/18 0400 Results 24 hrs Laboratory Tests Test 08/24/18 04:00 08/24/18 04:55 White Blood Count 11.7 H Red Blood Count 2.84 L Hemoglobin 8.2 L Hematocrit 26.5 L Mean Corpuscular Volume 93.3 Mean Corpuscular Hemoglobin 28.9 L Mean Corpuscular Hemoglobin Concent 30.9 L Red Cell Distribution Width 16.0 H Platelet Count 290 # Mean Platelet Volume 13.9 H Immature Granulocytes % 1.700 H Neutrophils % 74.3 Lymphocytes % 13.9 L Monocytes % 6.6 Eosinophils % 2.9 Basophils % 0.6 Nucleated Red Blood Cells % 0.0 Immature Granulocytes # 0.200 H Neutrophils # 8.7 H Lymphocytes # 1.6 Monocytes # 0.8 Eosinophils # 0.3 Basophils # 0.1 Nucleated Red Blood Cells # 0.0 Sodium Level 142 Potassium Level 5.3 H Chloride Level 109 Carbon Dioxide Level 21 Anion Gap 12 Blood Urea Nitrogen 95 H Creatinine 4.71 H Est Glomerular Filtrat Rate mL/min 10 L Glucose Level 100 Calcium Level 7.2 L Phosphorus Level 8.6 H Magnesium Level 2.0 Lab Scanned Report BLOOD TRANSFUSION Medications Current Medications Norepinephrine 250 ml @ 1.875 mls/ hr TITRATE IV Last administered on 08/10/18 00:41; Admin Dose 5.625 MLS/HR; Start 08/04/18 at 23:15 Morphine Sulfate (morphine) 1 mg Q1H PRN IV PAIN Last administered on 08/24/18 02:57; Admin Dose 1 MG; Start 08/04/18 at 23:30 Atorvastatin Calcium (Lipitor) 80 mg DAILY@21 PO Last administered on 08/23/18 20:21; Admin Dose 80 MG; Start 08/05/18 at 21:00 Nitroglycerin/ Dextrose 250 ml @ 1.5 mls/hr TITRATE IV Last administered on 08/05/18 14:22; Admin Dose 72 MLS/HR; Start 08/05/18 at 01:00 Miscellaneous Information 1 ea NOTE XX ; Start 08/05/18 at 09:00 Acetaminophen (Tylenol Supp) 650 mg Q4H PRN [place] TEMP > 37C Last administered on 08/09/18 04:37; Admin Dose 650 MG; Start 08/05/18 at 11:00 Acetaminophen (Tylenol Liquid) 650 mg Q4H PRN PO TEMP > 37C Last administered on 08/22/18 20:04; Admin Dose 650 MG; Start 08/05/18 at 11:00 Meperidine HCl (Demerol) 25 mg Q4H PRN IV POST OPERATIVE SHIVERING Last administered on 08/05/18 16:31; Admin Dose 25 MG; Start 08/05/18 at 11:00 Eye Lubricant (Akwa Oint) 1 applic Q6 BOTH EYES Last administered on 08/24/18 05:09; Admin Dose 1 APPLIC; Start 08/05/18 at 12:00 Eye Lubricant (Artificial Tears Oph) 2 drop Q6 BOTH EYES Last administered on 08/24/18 05:09; Admin Dose 2 DROP; Start 08/05/18 at 12:00 Insulin Human Regular 100 unit/ Sodium Chloride 100 ml @ 0 mls/hr PER PROTOCOL IV ; Start 08/05/18 at 12:00 Miscellaneous Information (* Miscellaneous Pharmacy Order) Treatment of Hypoglycemia: 1.BG 51... Per protocol XX ; Start 08/05/18 at 12:00 Dextrose (D50w Syringe) 25 ml Q15M PRN IV .DECREASED GLUCOSE; Start 08/05/18 at 12:00 Dextrose (D50w Syringe) 50 ml Q15M PRN IV .DECREASED GLUCOSE; Start 08/05/18 at 12:00 Fentanyl 100 ml @ 2.5 mls/hr TITRATE IV Last administered on 08/24/18 11:26; Admin Dose 10 MLS/HR; Start 08/05/18 at 12:00 Meperidine HCl (Demerol) 12.5 mg Q2H PRN IV POST OPERATIVE SHIVERING; Start 08/05/18 at 17:00 Aspirin (Aspirin) 81 mg DAILY NGT Last administered on 08/24/18 08:08; Admin Dose 81 MG; Start 08/06/18 at 09:00 Multivitamins (Multivitamin) 30 ml DAILY NGT Last administered on 08/24/18 08:08; Admin Dose 30 ML; Start 08/09/18 at 09:00 Zinc Sulfate (Zinc Sulfate) 220 mg DAILY NGT Last administered on 08/24/18 08:08; Admin Dose 220 MG; Start 08/09/18 at 09:00 Folic Acid (Folic Acid) 1 mg DAILY NGT Last administered on 08/24/18 08:08; Admin Dose 1 MG; Start 08/09/18 at 09:00 Ascorbic Acid (Vitamin C) 500 mg DAILY NGT Last administered on 08/24/18 08:08; Admin Dose 500 MG; Start 08/09/18 at 09:00 Albuterol (Ventolin Hfa) 4 puff Q6HWA RESP THERAPY INH Last administered on 08/24/18 07:55; Admin Dose 4 PUFF; Start 08/09/18 at 14:00 Ipratropium [place] (Atrovent Hfa) 4 puff Q6H RESP THERAPY INH Last administered on 08/24/18 07:54; Admin Dose 4 PUFF; Start 08/09/18 at 14:00 IV Flush (NS 10 ml) 10 ml PRN PRN IV IV PROTOCOL; Start 08/11/18 at 16:30 Heparin Sodium (Porcine) (Heparin (1000 Units/ml)) 3,000 unit PRN PRN CATHETER Dialysis Last administered on 08/22/18 13:36; Admin Dose 3,000 UNIT; Start 08/12/18 at 14:30 Labetalol HCl (Labetalol) 10 mg Q4H PRN IV ELEVATED SYSTOLIC BP > 180 Last administered on 08/20/18 16:54; Admin Dose 10 MG; Start 08/14/18 at 19:00 Midazolam HCl 50 ml @ 1 mls/hr TITRATE IV Last administered on 08/20/18 00:16; Admin Dose 5 MLS/HR; Start 08/15/18 at 11:00 Hydralazine HCl (Apresoline) 20 mg Q2 PRN IV ELEVATED SYSTOLIC BP Last administered on 08/22/18 16:18; Admin Dose 20 MG; Start 08/16/18 at 08:00 Metronidazole 100 ml @ 100 mls/hr Q8 IVPB Last administered on 08/24/18 05:09; Admin Dose 100 MLS/HR; Start 08/16/18 at 22:00 Carvedilol (Coreg) 12.5 mg Q6H PO Last administered on 08/24/18 01:24; Admin Dose 12.5 MG; Start 08/17/18 at 01:00 Docusate Sodium (Colace Liquid Cup) 100 mg BID GTB Last administered on 08/23/18 20:21; Admin Dose 100 MG; Start 08/18/18 at 09:00 Clopidogrel Bisulfate (plaVIX) 75 mg DAILY NGT Last administered on 08/24/18 08:08; Admin Dose 75 MG; Start 08/18/18 at 13:30 Cefazolin Sodium 50 ml @ 100 mls/hr Q24H IVPB Last administered on 08/23/18 14:28; Admin Dose 100 MLS/HR; Start 08/19/18 at 14:00 Levofloxacin/ Dextrose 50 ml @ 50 mls/hr Q48H IVPB Last administered on 08/23/18 11:30; Admin Dose 50 MLS/HR; Start 08/19/18 at 12:30 Rifaximin (Xifaxan) 200 mg TID PO Last administered on 4/5/19at 08:08; Admin Dose 200 MG; Start 08/19/18 at 13:00 Albumin Human 100 ml @ 100 mls/hr DURING DIALYSIS PRN IV HYPOTENSION DURING HD Last administered on 08/22/18 10:24; Admin Dose 100 MLS/HR; Start 08/22/18 at 10:00 Pantoprazole 80 mg/Sodium Chloride 100 ml @ 10 mls/hr Q10H IV Last administered on 08/24/18 06:03; Admin Dose 10 MLS/HR; Start 08/23/18 at 00:00 Sevelamer Carbonate (Renvela) 2.4 gm WITH MEALS GTB Last administered on 17:51; Admin Dose 2.4 GM; Start 08/23/18 at 11:30 Ondansetron HCl (Zofran Inj) 4 mg Q4H PRN IV NAUSEA AND/OR VOMITING Last administered on 08/23/18 21:52; Admin Dose 4 MG; Start 08/23/18 at 14:30 Lactobacillus Acidophilus/ Rhamnosus (Culturelle) 1 cap TID GTB ; Start 08/24/18 at 13:00 Assessment/Plan Hospital Course (Demo Recall) IMP: 1. Ventricular Fibrillation Arrest--s/p ROSC 2/2 STEMI s/p PCI status post hypothermia protocol. Multivessel coronary artery disease status post stent placement x3 2. STEMI, Status post stent x3 placement. 3. CVA multiple infarcts noted. 4. Hypoxemic respiratory failure no status post tracheostomy placement 5. HUSEYIN--likely ATN continues hemodialysis 6. Ischemic hepatopathy--2/2 arrest 7. Resolving encephalopathy RECS: 1. Continue mechanical ventilation, continue pulmonary toilet tracheostomy care 2. Decrease FiO2 as tolerated low tidal volume strategy if needed, will attempt SIMV trial tomorrow if stable. 3. Continue tube feeding 4. PEG tube feeding 5. Continue Abx 6. Pulmonary toilet 7. Hemodialysis per nephrology 8. Physical therapy evaluation Critical care time 40 minutes. CHINO ANDERSON MD, [facility] Aug 24, 2018 13:18
--- NOTE | 2018-08-24 14:50 | CONS ---
Assessment/Plan Assessment/Plan Hospital Course (Demo Recall) In hemodialysis, looks comfortable, afebrile WBC 11.7 platelets 290 neutrophils 74.3 Antimicrobials: Ancef, Levaquin, Flagyl Microbiology: Urine culture on admission grew E. coli and Proteus, blood cultures growing oxacillin sensitive staph aureus endotracheal aspirate also growing oxacillin sensitive staph aureus ear drainage preliminary growing staph aureus, repeat blood cultures 2 days ago negative Indwelling: Trach, PEG, right femoral Devan, right upper extremity PICC line Physical examination: Obese well-developed middle-aged woman who is intubated in no distress. Head atraumatic normocephalic neck is supple chest rise symmetrical breath sounds diminished bases. Heart: S1-S2. Abdomen distended. Bowel sounds hypoactive. Extremities cyanotic Assessment: 1. Severe sepsis, s/p shock 2. Oxacillin sensitive staph aureus bacteremia 2 to #3 3. Oxacillin sensitive staph aureus pneumonia 4. Polymicrobial UTI 5. ST elevation CT, status post stent 6. Status post V. fib arrest 7. Acute renal failure, started on hemodialysis 8. 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 Anemia and thrombocytopenia 10. Acute sinusitis and bilateral mastoiditis 11. Morbid obesity 12. Diarrhea, r/o C dif Plan: Stable, continue on current antibiotics, will send bld cx form HD cath Consultation Date/Type/Reason Admit Date/Time Aug 04, 2018 at 23:10 Initial Consult Date 08/12/18 Type of Consult id Requesting Provider: HARPAL AGGARWAL MD Date/Time of Note DATE: 08/24/18 TIME: 14:49 Exam/Review of Systems Exam Vitals Vital Signs Date Temp Pulse Resp B/P (MAP) Pulse Ox O2 O2 Flow FiO2 Time Delivery Rate 08/24/18 114 14:30 08/24/18 22 133/89 99 Mechanical 14:00 (104) Ventilator 08/24/18 30 13:30 08/24/18 99.2 07:00 Intake and Output 08/23/18 08/23/18 08/24/18 1515:00 23:00 07:00 IntakeIntake Total 740 ml 370 ml 430 ml OutputOutput Total 40 ml 155 ml 103 ml BalanceBalance 700 ml 215 ml 327 ml Results Result Diagram: 08/24/18 0400 08/24/18 0400 Results 24hrs Laboratory Tests Test 08/24/18 04:00 08/24/18 04:55 White Blood Count 11.7 H Red Blood Count 2.84 L Hemoglobin 8.2 L Hematocrit 26.5 L Mean Corpuscular Volume 93.3 Mean Corpuscular Hemoglobin 28.9 L Mean Corpuscular Hemoglobin Concent 30.9 L Red Cell Distribution Width 16.0 H Platelet Count 290 # Mean Platelet Volume 13.9 H Immature Granulocytes % 1.700 H Neutrophils % 74.3 Lymphocytes % 13.9 L Monocytes % 6.6 Eosinophils % 2.9 Basophils % 0.6 Nucleated Red Blood Cells % 0.0 Immature Granulocytes # 0.200 H Neutrophils # 8.7 H Lymphocytes # 1.6 Monocytes # 0.8 Eosinophils # 0.3 Basophils # 0.1 Nucleated Red Blood Cells # 0.0 Sodium Level 142 Potassium Level 5.3 H Chloride Level 109 Carbon Dioxide Level 21 Anion Gap 12 Blood Urea Nitrogen 95 H Creatinine 4.71 H Est Glomerular Filtrat Rate mL/min 10 L Glucose Level 100 Calcium Level 7.2 L Phosphorus Level 8.6 H Magnesium Level 2.0 Lab Scanned Report BLOOD TRANSFUSION Medications Medication Current Medications Norepinephrine 250 ml @ 1.875 mls/ hr TITRATE IV Last administered on 08/10/18at 00:41; Admin Dose 5.625 MLS/HR; Start 08/04/18 at 23:15 Morphine Sulfate (morphine) 1 mg Q1H PRN IV PAIN Last administered on 08/24/18at 02:57; Admin Dose 1 MG; Start 08/04/18 at 23:30 Atorvastatin Calcium (Lipitor) 80 mg DAILY@21 PO Last administered on 08/23/18at 20:21; Admin Dose 80 MG; Start 08/05/18 at 21:00 Nitroglycerin/ Dextrose 250 ml @ 1.5 mls/hr TITRATE IV Last administered on 08/05/18at 14:22; Admin Dose 72 MLS/HR; Start 08/05/18 at 01:00 Miscellaneous Information 1 ea NOTE XX ; Start 08/05/18 at 09:00 Acetaminophen (Tylenol Supp) 650 mg Q4H PRN [place] TEMP > 37C Last administered on 08/09/18at 04:37; Admin Dose 650 MG; Start 08/05/18 at 11:00 Acetaminophen (Tylenol Liquid) 650 mg Q4H PRN PO TEMP > 37C Last administered on 08/22/18 20:04; Admin Dose 650 MG; Start 08/05/18 at 11:00 Meperidine HCl (Demerol) 25 mg Q4H PRN IV POST OPERATIVE SHIVERING Last administered on 08/05/18 16:31; Admin Dose 25 MG; Start 08/05/18 at 11:00 Eye Lubricant (Akwa Oint) 1 applic Q6 BOTH EYES Last administered on 08/24/18 05:09; Admin Dose 1 APPLIC; Start 08/05/18 at 12:00 Eye Lubricant (Artificial Tears Oph) 2 drop Q6 BOTH EYES Last administered on 08/24/18 05:09; Admin Dose 2 DROP; Start 08/05/18 at 12:00 Insulin Human Regular 100 unit/ Sodium Chloride 100 ml @ 0 mls/hr PER PROTOCOL IV ; Start 08/05/18 at 12:00 Miscellaneous Information (* Miscellaneous Pharmacy Order) Treatment of Hypoglycemia: 1.BG 51... Per protocol XX ; Start 08/05/18 at 12:00 Dextrose (D50w Syringe) 25 ml Q15M PRN IV .DECREASED GLUCOSE; Start 08/05/18 at 12:00 Dextrose (D50w Syringe) 50 ml Q15M PRN IV .DECREASED GLUCOSE; Start 08/05/18 at 12:00 Fentanyl 100 ml @ 2.5 mls/hr TITRATE IV Last administered on 08/24/18 11:26; Admin Dose 10 MLS/HR; Start 08/05/18 at 12:00 Meperidine HCl (Demerol) 12.5 mg Q2H PRN IV POST OPERATIVE SHIVERING; Start 08/05/18 at 17:00 Aspirin (Aspirin) 81 mg DAILY NGT Last administered on 08/24/18 08:08; Admin Dose 81 MG; Start 08/06/18 at 09:00 Multivitamins (Multivitamin) 30 ml DAILY NGT Last administered on 08/24/18 0 8:08; Admin Dose 30 ML; Start 08/09/18 at 09:00 Zinc Sulfate (Zinc Sulfate) 220 mg DAILY NGT Last administered on 08/24/18 08:08; Admin Dose 220 MG; Start 08/09/18 at 09:00 Folic Acid (Folic Acid) 1 mg DAILY NGT Last administered on 08/24/18 08:08; Admin Dose 1 MG; Start 08/09/18 at 09:00 Ascorbic Acid (Vitamin C) 500 mg DAILY NGT Last administered on 08/24/18 08:08; Admin Dose 500 MG; Start 08/09/18 at 09:00 Albuterol (Ventolin Hfa) 4 puff Q6HWA RESP THERAPY INH Last administered on 08/24/18 13:27; Admin Dose 4 PUFF; Start 08/09/18 at 14:00 Ipratropium [place] (Atrovent Hfa) 4 puff Q6H RESP THERAPY INH Last administered on 08/24/18 13:27; Admin Dose 4 PUFF; Start 08/09/18 at 14:00 IV Flush (NS 10 ml) 10 ml PRN PRN IV IV PROTOCOL; Start 08/11/18 at 16:30 Heparin Sodium (Porcine) (Heparin (1000 Units/ml)) 3,000 unit PRN PRN CATHETER Dialysis Last administered on 08/22/18 13:36; Admin Dose 3,000 UNIT; Start 08/12/18 at 14:30 Labetalol HCl (Labetalol) 10 mg Q4H PRN IV ELEVATED SYSTOLIC BP > 180 Last administered on 08/20/18 16:54; Admin Dose 10 MG; Start 08/14/18 at 19:00 Midazolam HCl 50 ml @ 1 mls/hr TITRATE IV Last administered on 08/20/18 00:16; Admin Dose 5 MLS/HR; Start 08/15/18 at 11:00 Hydralazine HCl (Apresoline) 20 mg Q2 PRN IV ELEVATED SYSTOLIC BP Last adminis tered on 08/22/18 16:18; Admin Dose 20 MG; Start 08/16/18 at 08:00 Metronidazole 100 ml @ 100 mls/hr Q8 IVPB Last administered on 08/24/18 05:09; Admin Dose 100 MLS/HR; Start 08/16/18 at 22:00 Carvedilol (Coreg) 12.5 mg Q6H PO Last administered on 08/24/18 01:24; Admin Dose 12.5 MG; Start 08/17/18 at 01:00 Docusate Sodium (Colace Liquid Cup) 100 mg BID GTB Last administered on 08/23/18 20:21; Admin Dose 100 MG; Start 08/18/18 at 09:00 Clopidogrel Bisulfate (plaVIX) 75 mg DAILY NGT Last administered on 08/24/18 08:08; Admin Dose 75 MG; Start 08/18/18 at 13:30 Cefazolin Sodium 50 ml @ 100 mls/hr Q24H IVPB Last administered on 08/23/18 14:28; Admin Dose 100 MLS/HR; Start 08/19/18 at 14:00 Levofloxacin/ Dextrose 50 ml @ 50 mls/hr Q48H IVPB Last administered on 08/23/18 11:30; Admin Dose 50 MLS/HR; Start 08/19/18 at 12:30 Rifaximin (Xifaxan) 200 mg TID PO Last administered on 08/24/18 08:08; Admin Dose 200 MG; Start 08/19/18 at 13:00 Albumin Human 100 ml @ 100 mls/hr DURING DIALYSIS PRN IV HYPOTENSION DURING HD Last administered on 08/22/18 10:24; Admin Dose 100 MLS/HR; Start 08/22/18 at 10:00 Pantoprazole 80 mg/Sodium Chloride 100 ml @ 10 mls/hr Q10H IV Last administered on 08/24/18 06:03; Admin Dose 10 MLS/HR; Start 08/23/18 at 00:00 Sevelamer Carbonate (Renvela) 2.4 gm WITH MEALS GTB Last administered on 08/23/18 17:51; Admin Dose 2.4 GM; Start 08/23/18 at 11:30 Ondansetron HCl (Zofran Inj) 4 mg Q4H PRN IV NAUSEA AND/OR VOMITING Last administered on 08/23/18 21:52; Admin Dose 4 MG; Start 08/23/18 at 14:30 Lactobacillus Acidophilus/ Rhamnosus (Culturelle) 1 cap TID GTB ; Start 08/24/18 at 13:00 WIN LUCIANO NP Aug 24, 2018 14:50
[2018-08-24] MEDS: HEPARIN 1000 UNITS/ML 10 ML INJ CATHETER PRN (16:14)
[2018-08-24] MEDS: CEFAZOLIN 1 GM/50 ML (PMX) 50 ML IVPB SCH (16:22)
--- NOTE | 2018-08-24 16:37 | PN ---
Date/Time of Note Date/Time of Note DATE: 08/24/18 TIME: 16:36 Assessment/Plan Lines/Catheters IV Catheter Type (from Nrsg): PICC Line Aguilar in Place (from Nrsg): Yes Assessment/Plan Assessment/Plan SP Tracheostomy Will continue vent support Trach care pulm toilet Subjective 24 Hr Interval Summary Constitutional: improved Pain Control: mild Exam/Review of Systems Vital Signs Vitals Vital Signs Date Temp Pulse Resp B/P (MAP) Pulse Ox O2 O2 Flow FiO2 Time Delivery Rate 08/24/18 113 16:00 08/24/18 98.8 20 121/77 99 Mechanical 16:00 (92) Ventilator 08/24/18 30 15:04 Intake and Output 08/23/18 08/23/18 08/24/18 1515:00 23:00 07:00 IntakeIntake Total 740 ml 370 ml 430 ml OutputOutput Total 40 ml 155 ml 103 ml BalanceBalance 700 ml 215 ml 327 ml Exam Eyes: nl conjunctiva, EOMI, nl lids, nl sclera ENMT: nl external ears & nose, nl lips & teeth, nl nasal mucosa & septum, mucosa pink and moist Neck: supple, non-tender Respiratory: clear to auscultation, normal air movement Cardiovascular: regular rate and rhythm, nl pulses Gastrointestinal: soft, nl liver, spleen, non-tender Musculoskeletal: nl extremities to inspection, nl gait and stance Results Result Diagram: 08/24/18 0400 08/24/18399 KRISTOFER BAKER MD Aug 24, 2018 16:37
[2018-08-24] MEDS: ATORVASTATIN 80 MG TAB PO SCH (21:01)
[2018-08-25] VITALS (50 sets, daily range): BP systolic 104–142; BP diastolic 64–96; PULSE 101–126; RESP 18–25
[2018-08-25] MEDS: ALBUTEROL HFA 8 GM INHALER INH SCH ×3 (01:43→19:04)
[2018-08-25] MEDS: IPRATROPIUM (HFA) 12.9 GM INHALER INH SCH ×4 (01:43→19:05)
[2018-08-25] MEDS: PANTOPRAZOLE IV 80 MG in SOD CHLORIDE 0.9% 100 ML IV SCH ×4 (01:52→21:19)
[2018-08-25] MEDS: metroNIDAZOLE 500 MG/NS (PMX) 100 ML IVPB SCH ×3 (05:04→21:06)
[2018-08-25] MEDS: ARTIFICIAL TEARS 15 ML OPH BOTH EYES SCH ×3 (05:04→18:00)
[2018-08-25] MEDS: OCULAR LUBRICANT 3.5 GM OPH OINT BOTH EYES SCH ×3 (05:04→18:00)
[2018-08-25] MEDS: SEVELAMER CARBONATE 2.4 GM PKT GTB SCH ×3 (07:56→18:10)
[2018-08-25] MEDS: RIFAXIMIN 200 MG TAB PO SCH ×3 (08:36→21:04)
[2018-08-25] MEDS: DOCUSATE SODIUM 10 MG/ML (10ML CUP) GTB SCH ×2 (08:36→21:06)
[2018-08-25] MEDS: ASPIRIN 81 MG TAB NGT SCH (08:36)
[2018-08-25] MEDS: ASCORBIC ACID 500 MG TAB NGT SCH (08:36)
[2018-08-25] MEDS: ZINC SULFATE 220 MG CAP NGT SCH (08:36)
[2018-08-25] MEDS: FOLIC ACID 1 MG TAB NGT SCH (08:36)
[2018-08-25] MEDS: MULTIVITAMINS 30 ML CUP NGT SCH (08:36)
[2018-08-25] MEDS: LACTOBACILLUS RHAMNOSUS CAP GTB SCH ×3 (08:36→21:06)
[2018-08-25] MEDS: CLOPIDOGREL 75 MG TAB NGT SCH (08:36)
--- NOTE | 2018-08-25 09:08 | PN ---
Date/Time of Note Date/Time of Note DATE: 08/25/18 TIME: 09:08 Assessment/Plan VTE Prophylaxis Risk score (from Nsg)>0 risk: 8 SCD applied (from Nsg): Yes Pharmacological prophylaxis: other Lines/Catheters IV Catheter Type (from Nrsg): PICC Line Central line still needed: Yes Urinary Cath still in place: Yes Reason Cath still needed: terminal illness/intractable pain Assessment/Plan Assessment/Plan 1. Acute hypoxic respiratory failure - Patients mentation improved significantly and will attempt daily weaning trials per Pulm - Pulm on board for vent management. Appreciate consultation - Dr. Wilson consultation appreciated for trach placement - GI consultation appreciated for PEG placement 2. Acute toxic/metabolic encephalopathy- resolved - Patient answering questions, responding appropriately and following commands 3. Bilateral CVA - Found on MRI, likely thromboembolic secondary to cardiopulmonary arrest per neurology - Neuro input appreciated and continue on aspirin and Lipitor 4. Anemia, blood loss and renal disease- stable - no further episodes of bleeding appreciated - ENT consultation appreciated given patient with bleeding from ears and mouth while oral intubated - Hgb remains stable and no need for transfusion at this time 5. Bilateral Pneumonia- improving - plans to d/c antibiotics tomorrow and monitor for improvement 6. Septic shock secondary to PNA and bacteremia- resolved - WBC continues trending downward - Blood cultures and sputum culture results noted. - ID on board and will d/c antibiotics tomorrow 7. CAD s/p PCI x2 - Cardiology on board and appreciate recommendations. Stressed importance of continuing DAPT given recent stent placements and high risk of restenosis - s/p emergent Cath 08/05 with successful PTCA and stenting of proximal and mid LAD, PTCA of the large first diagonal and thrombectomy of the LAD - Repeat PCI on 08/07 performed with stenting to LCx - plans for stenting of RCA prior to discharge if possible 8. Renal failure on HD - Nephrology on board and appreciate recommendations. Continue HD - secondary to septic shock, ATN vs prerenal vs contrast induced nephropathy - will avoid nephrotoxic agents 9. Diabetes - A1c noted - ISS not needed 10. S/p V-fib cardiac arrest secondary to STEMI - Completed hypothermia protocol 11. Disposition - continue weaning from vent as tolerated. Continue titrating down/off Fentanyl - CM on board for placement >30 minutes of critical care time spent with patient and mother at bedside Result Diagram: 08/25/18 0400 08/25/18 0400 Results 24hrs Laboratory Tests Test 08/25/18 04:00 08/25/18 06:39 White Blood Count 11.5 H Red Blood Count 2.82 L Hemoglobin 8.1 L Hematocrit 26.1 L Mean Corpuscular Volume 92.6 Mean Corpuscular Hemoglobin 28.7 L Mean Corpuscular Hemoglobin Concent 31.0 L Red Cell Distribution Width 15.9 H Platelet Count 253 Mean Platelet Volume 13.6 H Immature Granulocytes % 2.300 H Neutrophils % 78.4 H Lymphocytes % 10.9 L Monocytes % 4.3 Eosinophils % 3.6 Basophils % 0.5 Nucleated Red Blood Cells % 0.0 Immature Granulocytes # 0.260 H Neutrophils # 9.0 H Lymphocytes # 1.3 Monocytes # 0.5 Eosinophils # 0.4 Basophils # 0.1 Nucleated Red Blood Cells # 0.0 Sodium Level 139 Potassium Level 4.4 Chloride Level 103 Carbon Dioxide Level 26 Anion Gap 10 Blood Urea Nitrogen 52 #H Creatinine 2.78 #H Est Glomerular Filtrat Rate mL/min 19 L Glucose Level 129 Calcium Level 7.3 L Phosphorus Level 5.5 #H Magnesium Level 1.8 Bedside Glucose 131 Subjective 24 Hr Interval Summary Free Text/Dictation Patient remains stable and answering questions appropriately. Denies any pain but does admit to feeling warm. Exam/Review of Systems Exam Vitals Vital Signs Date Temp Pulse Resp B/P (MAP) Pulse Ox O2 O2 Flow FiO2 Time Delivery Rate 08/25/18 99.0 110 20 123/79 98 Mechanical 08:00 (94) Ventilator 08/25/18 30 05:30 Intake and Output 08/24/18 08/24/18 08/25/18 1515:00 23:00 07:00 IntakeIntake Total 260 ml 460 ml 670 ml OutputOutput Total 265 ml 2260 ml 40 ml BalanceBalance -5 ml -1800 ml 630 ml Exam General: Patient is laying in bed, shaking head to questions appropriately. No acute distress Eyes: EOMI, pupils reactive to light. Neck: Supple, trach in place. no active bleeding appreciated Respiratory: Diminished breath sounds. no wheezing appreciated Cardiovascular: S1, S2, regular rhythm, tachycardia, no obvious murmurs Gastrointestinal: soft, nontender to palpation, nondistended, bowel sounds he helena. PEG in place Skin: No new skin lesions Neuro: moving all extremities to commands. Results Results 24hrs Laboratory Tests Test 08/25/18 04:00 08/25/18 06:39 White Blood Count 11.5 H Red Blood Count 2.82 L Hemoglobin 8.1 L Hematocrit 26.1 L Mean Corpuscular Volume 92.6 Mean Corpuscular Hemoglobin 28.7 L Mean Corpuscular Hemoglobin Concent 31.0 L Red Cell Distribution Width 15.9 H Platelet Count 253 Mean Platelet Volume 13.6 H Immature Granulocytes % 2.300 H Neutrophils % 78.4 H Lymphocytes % 10.9 L Monocytes % 4.3 Eosinophils % 3.6 Basophils % 0.5 Nucleated Red Blood Cells % 0.0 Immature Granulocytes # 0.260 H Neutrophils # 9.0 H Lymphocytes # 1.3 Monocytes # 0.5 Eosinophils # 0.4 Basophils # 0.1 Nucleated Red Blood Cells # 0.0 Sodium Level 139 Potassium Level 4.4 Chloride Level 103 Carbon Dioxide Level 26 Anion Gap 10 Blood Urea Nitrogen 52 #H Creatinine 2.78 #H Est Glomerular Filtrat Rate mL/min 19 L Glucose Level 129 Calcium Level 7.3 L Phosphorus Level 5.5 #H Magnesium Level 1.8 Bedside Glucose 131 Medications Medication Current Medications Norepinephrine 250 ml @ 1.875 mls/ hr TITRATE IV Last administered on 08/10/18at 00:41; Admin Dose 5.625 MLS/HR; Start 08/04/18 at 23:15 Morphine Sulfate (morphine) 1 mg Q1H PRN IV PAIN Last administered on 08/24/18at 02:57; Admin Dose 1 MG; Start 08/04/18 at 23:30 Atorvastatin Calcium (Lipitor) 80 mg DAILY@21 PO Last administered on 08/24/18at 21:01; Admin Dose 80 MG; Start 08/05/18 at 21:00 Nitroglycerin/ Dextrose 250 ml @ 1.5 mls/hr TITRATE IV Last administered on 08/05/18at 14:22; Admin Dose 72 MLS/HR; Start 08/05/18 at 01:00 Miscellaneous Information 1 ea NOTE XX ; Start 08/05/18 at 09:00 Acetaminophen (Tylenol Supp) 650 mg Q4H PRN [place] TEMP > 37C Last administered on 08/09/18at 04:37; Admin Dose 650 MG; Start 08/05/18 at 11:00 Acetaminophen (Tylenol Liquid) 650 mg Q4H PRN PO TEMP > 37C Last administered on 08/22/18 20:04; Admin Dose 650 MG; Start 08/05/18 at 11:00 Meperidine HCl (Demerol) 25 mg Q4H PRN IV POST OPERATIVE SHIVERING Last administered on 08/05/18 16:31; Admin Dose 25 MG; Start 08/05/18 at 11:00 Eye Lubricant (Akwa Oint) 1 applic Q6 BOTH EYES Last administered on 08/25/18 05:04; Admin Dose 1 APPLIC; Start 08/05/18 at 12:00 Eye Lubricant (Artificial Tears Oph) 2 drop Q6 BOTH EYES Last administered on 08/25/18 05:04; Admin Dose 2 DROP; Start 08/05/18 at 12:00 Insulin Human Regular 100 unit/ Sodium Chloride 100 ml @ 0 mls/hr PER PROTOCOL IV ; Start 08/05/18 at 12:00 Miscellaneous Information (* Miscellaneous Pharmacy Order) Treatment of Hypoglycemia: 1.BG 51... Per protocol XX ; Start 08/05/18 at 12:00 Dextrose (D50w Syringe) 25 ml Q15M PRN IV .DECREASED GLUCOSE; Start 08/05/18 at 12:00 Dextrose (D50w Syringe) 50 ml Q15M PRN IV .DECREASED GLUCOSE; Start 08/05/18 at 12:00 Fentanyl 100 ml @ 2.5 mls/hr TITRATE IV Last administered on 08/24/18 22:27; Admin Dose 10 MLS/HR; Start 08/05/18 at 12:00 Meperidine HCl (Demerol) 12.5 mg Q2H PRN IV POST OPERATIVE SHIVERING; Start 08/05/18 at 17:00 Aspirin (Aspirin) 81 mg DAILY NGT Last administered on 08/25/18 08:36; Admin Dose 81 MG; Start 08/06/18 at 09:00 Multivitamins (Multivitamin) 30 ml DAILY NGT Last administered on 08/25/18 08:36; Admin Dose 30 ML; Start 08/09/18 at 09:00 Zinc Sulfate (Zinc Sulfate) 220 mg DAILY NGT Last administered on 08/25/18 08:36; Admin Dose 220 MG; Start 08/09/18 at 09:00 Folic Acid (Folic Acid) 1 mg DAILY NGT Last administered on 08/25/18 08:36; Admin Dose 1 MG; Start 08/09/18 at 09:00 Ascorbic Acid (Vitamin C) 500 mg DAILY NGT Last administered on 08/25/18 08:36; Admin Dose 500 MG; Start 08/09/18 at 09:00 Albuterol (Ventolin Hfa) 4 puff Q6HWA RESP THERAPY INH Last administered on 08/25/18 01:43; Admin Dose 4 PUFF; Start 08/09/18 at 14:00 Ipratropium [place] (Atrovent Hfa) 4 puff Q6H RESP THERAPY INH Last administered on 08/25/18 09:01; Admin Dose 4 PUFF; Start 08/09/18 at 14:00 IV Flush (NS 10 ml) 10 ml PRN PRN IV IV PROTOCOL; Start 08/11/18 at 16:30 Heparin Sodium (Porcine) (Heparin (1000 Units/ml)) 3,000 unit PRN PRN CATHETER Dialysis Last administered on 08/24/18 16:14; Admin Dose 3,000 UNIT; Start 08/12/18 at 14:30 Labetalol HCl (Labetalol) 10 mg Q4H PRN IV ELEVATED SYSTOLIC BP > 180 Last a dministered on 08/20/18 16:54; Admin Dose 10 MG; Start 08/14/18 at 19:00 Midazolam HCl 50 ml @ 1 mls/hr TITRATE IV Last administered on 08/20/18 00:16; Admin Dose 5 MLS/HR; Start 08/15/18 at 11:00 Hydralazine HCl (Apresoline) 20 mg Q2 PRN IV ELEVATED SYSTOLIC BP Last administered on 08/22/18 16:18; Admin Dose 20 MG; Start 08/16/18 at 08:00 Metronidazole 100 ml @ 100 mls/hr Q8 IVPB Last administered on 08/25/18 05:04; Admin Dose 100 MLS/HR; Start 08/16/18 at 22:00 Carvedilol (Coreg) 12.5 mg Q6H PO Last administered on 08/25/18 07:56; Admin Dose 12.5 MG; Start 08/17/18 at 01:00 Docusate Sodium (Colace Liquid Cup) 100 mg BID GTB Last administered on 08/25/18 08:36; Admin Dose 100 MG; Start 08/18/18 at 09:00 Clopidogrel Bisulfate (plaVIX) 75 mg DAILY NGT Last administered on 08/25/18 08 :36; Admin Dose 75 MG; Start 08/18/18 at 13:30 Cefazolin Sodium 50 ml @ 100 mls/hr Q24H IVPB Last administered on 08/24/18 16:22; Admin Dose 100 MLS/HR; Start 08/19/18 at 14:00 Levofloxacin/ Dextrose 50 ml @ 50 mls/hr Q48H IVPB Last administered on 08/23/18 11:30; Admin Dose 50 MLS/HR; Start 08/19/18 at 12:30 Rifaximin (Xifaxan) 200 mg TID PO Last administered on 08/25/18 08:36; Admin Dose 200 MG; Start 08/19/18 at 13:00 Albumin Human 100 ml @ 100 mls/hr DURING DIALYSIS PRN IV HYPOTENSION DURING HD Last administered on 08/22/18 10:24; Admin Dose 100 MLS/HR; Start 08/22/18 at 10:00 Pantoprazole 80 mg/Sodium Chloride 100 ml @ 10 mls/hr Q10H IV Last administered on 08/25/18 01:52; Admin Dose 10 MLS/HR; Start 08/23/18 at 00:00 Sevelamer Carbonate (Renvela) 2.4 gm WITH MEALS GTB Last administered on 08/25/18 07:56; Admin Dose 2.4 GM; Start 08/23/18 at 11:30 Ondansetron HCl (Zofran Inj) 4 mg Q4H PRN IV NAUSEA AND/OR VOMITING Last administered on 08/23/18 21:52; Admin Dose 4 MG; Start 08/23/18 at 14:30 Lactobacillus Acidophilus/ Rhamnosus (Culturelle) 1 cap TID GTB Last administered on 08/25/18 08:36; Admin Dose 1 CAP; Start 08/24/18 at 13:00 THOMAS RILEY MD Aug 25, 2018 09:08
[2018-08-25] MEDS: FENTAnyl (DRIP) 1000 mcg/100mL 100 ML IV SCH ×2 (09:37→21:11)
--- NOTE | 2018-08-25 10:18 | CONS ---
Assessment/Plan Assessment/Plan Hospital Course 38 yo F w/ reported Hx of HTN and DM2 who is admitted to the [facility] ICU s/p vfib cardiac arrest. She is now s/p cardiac catheterization w/ 2 coronary stents. now s/p targeted temperature therapy. s/p trach on 08/22 Neurology is consulted given persistent encephalopathy...which is likely multifactorial -- toxic-metabolic, medications, hypoxic-ischemic...and which has shown some improvement with time. MRI brain is notable for multiple bihemispheric infarcts... likely of cardioembolic origin in the context of her recent arrest. Hypercoagulability panel is most notable for lupus anticoagulant, which, in this clinical context, raises concern for antiphospholipid syndrome. Protein S is also deficient.. EEG is without epileptiform activity CUS is unrevealing. Ammonia, RPR level wnl. ESR >130 Echo on 08/05 in unrevealing. P: Start warfarin for possible APS when medically able; hold antiplatelets when INR is therapeutic (goal 2-3); Repeat Lupus anticoagulant in ~ 3 months for confirmation.. OK to cont Lipitor daily for stroke prevention PT/OT/ST when able Other medical management and supportive care per primary Will sign off for now; please consult again w/ additional neurologic questions as necessary Consultation Date/Type/Reason Admit Date/Time Aug 04, 2018 at 23:10 Type of Consult Neurology Reason for Consultation stroke, coma Requesting Provider: HARPAL AGGARWAL MD Date/Time of Note DATE: 08/25/18 TIME: 10:15 24 HR Interval Summary Free Text/Dictation Continues icu care Exam Vital Signs Vitals Vital Signs Date Temp Pulse Resp B/P (MAP) Pulse Ox O2 O2 Flow FiO2 Time Delivery Rate 08/25/18 99.0 110 20 123/79 98 Mechanical 08:00 (94) Ventilator 08/25/18 30 05:30 Intake and Output 08/24/18 08/24/18 08/25/18 1515:00 23:00 07:00 IntakeIntake Total 260 ml 460 ml 670 ml OutputOutput Total 265 ml 2260 ml 40 ml BalanceBalance -5 ml -1800 ml 630 ml Exam PE: Gen Appearance: No Apparent Distress HEENT: Trach Cardiovascular: Tachycardic Abdomen: Soft Extremities: Dry NE: The patient was sedated. Cranial nerve examination was limited by mental status. Pupils were equal and reactive to light. There was no afferent pupillary defect. Funduscopic exa mination was limited. Face was grossly symmetric, w/ present corneal and cough reflexes. Tone was normal. Muscle bulk was normal. I did not see fasciculations. The patient withdrew to noxious stimulation x 4. Coordination and gait testing was limited by mental status. Arm and leg reflexes were within normal limits and symmetric. Alvarez's sign was absent. Plantar responses were flexor. RANDY GARCIA Aug 25, 2018 10:18
--- NOTE | 2018-08-25 10:27 | CONS ---
Consult Date/Type/Reason Admit Date/Time Aug 04, 2018 at 23:10 Initial Consult Date 08/05/18 Type of Consultation: Pulm/CCM Requesting Provider: HARPAL AGGARWAL MD Date/Time of Note DATE: 08/25/18 TIME: 10:23 Subjective No events. Awake on the vent. High peak and relatively normal plateau suggestive of airway resistance. Objective Vitals Vital Signs Date Temp Pulse Resp B/P (MAP) Pulse Ox O2 O2 Flow FiO2 Time Delivery Rate 08/25/18 99.0 110 20 123/79 98 Mechanical 08:00 (94) Ventilator 08/25/18 30 05:30 Intake and Output 08/24/18 08/24/18 08/25/18 1515:00 23:00 07:00 IntakeIntake Total 260 ml 460 ml 670 ml OutputOutput Total 265 ml 2260 ml 40 ml BalanceBalance -5 ml -1800 ml 630 ml Exam HEENT: Neck supple; no JVD; no LAD; + trach CVS: RRR, S1 and S2 CHEST: Coarse BS b/l ABD: Soft, NT, + BS EXT: No c/c/e Results/Medications Result Diagram: 08/25/18 0400 08/25/18 0400 Results 24 hrs Laboratory Tests Test 08/25/18 04:00 08/25/18 06:39 White Blood Count 11.5 H Red Blood Count 2.82 L Hemoglobin 8.1 L Hematocrit 26.1 L Mean Corpuscular Volume 92.6 Mean Corpuscular Hemoglobin 28.7 L Mean Corpuscular Hemoglobin Concent 31.0 L Red Cell Distribution Width 15.9 H Platelet Count 253 Mean Platelet Volume 13.6 H Immature Granulocytes % 2.300 H Neutrophils % 78.4 H Lymphocytes % 10.9 L Monocytes % 4.3 Eosinophils % 3.6 Basophils % 0.5 Nucleated Red Blood Cells % 0.0 Immature Granulocytes # 0.260 H Neutrophils # 9.0 H Lymphocytes # 1.3 Monocytes # 0.5 Eosinophils # 0.4 Basophils # 0.1 Nucleated Red Blood Cells # 0.0 Sodium Level 139 Potassium Level 4.4 Chloride Level 103 Carbon Dioxide Level 26 Anion Gap 10 Blood Urea Nitrogen 52 #H Creatinine 2.78 #H Est Glomerular Filtrat Rate mL/min 19 L Glucose Level 129 Calcium Level 7.3 L Phosphorus Level 5.5 #H Magnesium Level 1.8 Bedside Glucose 131 Medications Current Medications Norepinephrine 250 ml @ 1.875 mls/ hr TITRATE IV Last administered on 08/10/18 00:41; Admin Dose 5.625 MLS/HR; Start 08/04/18 at 23:15 Morphine Sulfate (morphine) 1 mg Q1H PRN IV PAIN Last administered on 08/24/18 02:57; Admin Dose 1 MG; Start 08/04/18 at 23:30 Atorvastatin Calcium (Lipitor) 80 mg DAILY@21 PO Last administered on 08/24/18 21:01; Admin Dose 80 MG; Start 08/05/18 at 21:00 Nitroglycerin/ Dextrose 250 ml @ 1.5 mls/hr TITRATE IV Last administered on 08/05/18 14:22; Admin Dose 72 MLS/HR; Start 08/05/18 at 01:00 Miscellaneous Information 1 ea NOTE XX ; Start 08/05/18 at 09:00 Acetaminophen (Tylenol Supp) 650 mg Q4H PRN [place] TEMP > 37C Last administered on 08/09/18 04:37; Admin Dose 650 MG; Start 08/05/18 at 11:00 Acetaminophen (Tylenol Liquid) 650 mg Q4H PRN PO TEMP > 37C Last administered on 08/22/18 20:04; Admin Dose 650 MG; Start 08/05/18 at 11:00 Meperidine HCl (Demerol) 25 mg Q4H PRN IV POST OPERATIVE SHIVERING Last administered on 08/05/18 16:31; Admin Dose 25 MG; Start 08/05/18 at 11:00 Eye Lubricant (Akwa Oint) 1 applic Q6 BOTH EYES Last administered on 08/25/18 05:04; Admin Dose 1 APPLIC; Start 08/05/18 at 12:00 Eye Lubricant (Artificial Tears Oph) 2 drop Q6 BOTH EYES Last administered on 08/25/18 05:04; Admin Dose 2 DROP; Start 08/05/18 at 12:00 Insulin Human Regular 100 unit/ Sodium Chloride 100 ml @ 0 mls/hr PER PROTOCOL IV ; Start 08/05/18 at 12:00 Miscellaneous Information (* Miscellaneous Pharmacy Order) Treatment of Hypoglycemia: 1.BG 51... Per protocol XX ; Start 08/05/18 at 12:00 Dextrose (D50w Syringe) 25 ml Q15M PRN IV .DECREASED GLUCOSE; Start 08/05/18 at 12:00 Dextrose (D50w Syringe) 50 ml Q15M PRN IV .DECREASED GLUCOSE; Start 08/05/18 at 12:00 Fentanyl 100 ml @ 2.5 mls/hr TITRATE IV Last administered on 08/25/18 09:37; Admin Dose 10 MLS/HR; Start 08/05/18 at 12:00 Meperidine HCl (Demerol) 12.5 mg Q2H PRN IV POST OPERATIVE SHIVERING; Start 08/05/18 at 17:00 Aspirin (Aspirin) 81 mg DAILY NGT Last administered on 08/25/18 08:36; Admin Dose 81 MG; Start 08/06/18 at 09:00 Multivitamins (Multivitamin) 30 ml DAILY NGT Last administered on 08/25/18 08:36; Admin Dose 30 ML; Start 08/09/18 at 09:00 Zinc Sulfate (Zinc Sulfate) 220 mg DAILY NGT Last administered on 08/25/18 08:36; Admin Dose 220 MG; Start 08/09/18 at 09:00 Folic Acid (Folic Acid) 1 mg DAILY NGT Last administered on 08/25/18 08:36; Admin Dose 1 MG; Start 08/09/18 at 09:00 Ascorbic Acid (Vitamin C) 500 mg DAILY NGT Last administered on 08/25/18 08:36; Admin Dose 500 MG; Start 08/09/18 at 09:00 Albuterol (Ventolin Hfa) 4 puff Q6HWA RESP THERAPY INH Last administered on 08/25/18 01:43; Admin Dose 4 PUFF; Start 08/09/18 at 14:00 Ipratropium [place] (Atrovent Hfa) 4 puff Q6H RESP THERAPY INH Last administered on 08/25/18 09:01; Admin Dose 4 PUFF; Start 08/09/18 at 14:00 IV Flush (NS 10 ml) 10 ml PRN PRN IV IV PROTOCOL; Start 08/11/18 at 16:30 Heparin Sodium (Porcine) (Heparin (1000 Units/ml)) 3,000 unit PRN PRN CATHETER Dialysis Last administered on 08/24/18 16:14; Admin Dose 3,000 UNIT; Start 08/12/18 at 14:30 Labetalol HCl (Labetalol) 10 mg Q4H PRN IV ELEVATED SYSTOLIC BP > 180 Last administered on 08/20/18 16:54; Admin Dose 10 MG; Start 08/14/18 at 19:00 Midazolam HCl 50 ml @ 1 mls/hr TITRATE IV Last administered on 08/20/18 00:16; Admin Dose 5 MLS/HR; Start 08/15/18 at 11:00 Hydralazine HCl (Apresoline) 20 mg Q2 PRN IV ELEVATED SYSTOLIC BP Last administered on 08/22/18 16:18; Admin Dose 20 MG; Start 08/16/18 at 08:00 Metronidazole 100 ml @ 100 mls/hr Q8 IVPB Last administered on 08/25/18 05:04; Admin Dose 100 MLS/HR; Start 08/16/18 at 22:00 Carvedilol (Coreg) 12.5 mg Q6H PO Last administered on 08/25/18 07:56; Admin Dose 12.5 MG; Start 08/17/18 at 01:00 Docusate Sodium (Colace Liquid Cup) 100 mg BID GTB Last administered on 08/25/18 08:36; Admin Dose 100 MG; Start 08/18/18 at 09:00 Clopidogrel Bisulfate (plaVIX) 75 mg DAILY NGT Last administered on 08/25/18 08:36; Admin Dose 75 MG; Start 08/18/18 at 13:30 Cefazolin Sodium 50 ml @ 100 mls/hr Q24H IVPB Last administered on 08/24/18 16:22; Admin Dose 100 MLS/HR; Start 08/19/18 at 14:00 Levofloxacin/ Dextrose 50 ml @ 50 mls/hr Q48H IVPB Last administered on 08/23/18 11:30; Admin Dose 50 MLS/HR; Start 08/19/18 at 12:30 Rifaximin (Xifaxan) 200 mg TID PO Last administered on 08/25/18 08:36; Admin Dose 200 MG; Start 08/19/18 at 13:00 Albumin Human 100 ml @ 100 mls/hr DURING DIALYSIS PRN IV HYPOTENSION DURING HD Last administered on 08/22/18 10:24; Admin Dose 100 MLS/HR; Start 08/22/18 at 10:00 Pantoprazole 80 mg/Sodium Chloride 100 ml @ 10 mls/hr Q10H IV Last administered on 08/25/18at 01:52; Admin Dose 10 MLS/HR; Start 08/23/18 at 00:00 Sevelamer Carbonate (Renvela) 2.4 gm WITH MEALS GTB Last administered on 08/25/18at 07:56; Admin Dose 2.4 GM; Start 08/23/18 at 11:30 Ondansetron HCl (Zofran Inj) 4 mg Q4H PRN IV NAUSEA AND/OR VOMITING Last administered on 08/23/18at 21:52; Admin Dose 4 MG; Start 08/23/18 at 14:30 Lactobacillus Acidophilus/ Rhamnosus (Culturelle) 1 cap TID GTB Last administered on 08/25/18at 08:36; Admin Dose 1 CAP; Start 08/24/18 at 13:00 Assessment/Plan Assessment/Plan (Daily) IMP: 1. Ventricular Fibrillation Arrest--s/p ROSC 2/2 STEMI s/p PCI status post hypothermia protocol. Multivessel coronary artery disease status post stent placement x3 2. STEMI, Status post stent x3 placement. 3. CVA multiple infarcts noted. 4. Hypoxemic respiratory failure no status post tracheostomy placement 5. HUSEYIN--likely ATN continues hemodialysis 6. Ischemic hepatopathy--2/2 arrest 7. Resolving encephalopathy RECS: 1. Trach periodically obstructs as it is likely sitting on the tracheal wall. May benefit from an XLT. Will consider bronch to better evaluate. 2. Start weaning with SIMV rate 10; PS 14 cm H20; PEEP 5. 3. Continue tube feeding 4. Follow H/H 5. Continue Abx 6. Pulmonary toilet 7. Hemodialysis per nephrology 8. Physical therapy evaluation Critical care time 40 minutes. LA PEARSON MD Aug 25, 2018 10:27
--- NOTE | 2018-08-25 11:18 | CONS ---
Assessment/Plan Assessment/Plan Assessment/Plan (Daily) 1. Anuric acute kidney injury with unknown baseline creatinine. Etiology secondary to acute tubular necrosis. The patient remains dialysis dependent. Plan for HD today 2. Volume overload, improving. Continue ultrafiltration dialysis. 3. Anemia. Monitor hemoglobin and hematocrit levels. Continue Epogen. 4. Tracheal bleed, resolved. Etiology was secondary to recent trach placement, possible component of uremic bleeding. The patient is status post DDAVP. Continue to monitor. 5. Mineral bone disorder, monitor calcium and phosphorus levels. The patient remains hyperphosphatemic. Continue phosphatase binders. Will increase dialysis with solute clearance. 6. Ventilator-dependent respiratory failure. Vent settings and ABG was reviewed. Continue to monitor. 7. Coronary artery disease with ST elevated myocardial infarction. The patient is status post cardiac catheterization and percutaneous coronary intervention. 8. Sepsis, status post shock. The patient has completed an antibiotic course. 9. Acute encephalopathy, etiology is toxic metabolic secondary to acute cerebrovascular accident. Continue medical management. 10. Acute CVA. Continue current treatment plan. 11. Dysphagia. Continue tube feeding. 12. Morbid obesity. 13. Status post cardiac arrest. Consultation Date/Type/Reason Admit Date/Time Aug 04, 2018 at 23:10 Initial Consult Date 08/17/18 Requesting Provider: HARPAL AGGARWAL MD Date/Time of Note DATE: 08/25/18 TIME: 11:14 24 HR Interval Summary Free Text/Dictation pt remains on the vent with trach. low urine output d/w rn Exam/Review of Systems Exam Vitals Vital Signs Date Temp Pulse Resp B/P (MAP) Pulse Ox O2 O2 Flow FiO2 Time Delivery Rate 08/25/18 99.0 110 20 123/79 98 Mechanical 08:00 (94) Ventilator 08/25/18 30 05:30 Intake and Output 08/24/18 08/24/18 08/25/18 1515:00 23:00 07:00 IntakeIntake Total 260 ml 460 ml 670 ml OutputOutput Total 265 ml 2260 ml 40 ml BalanceBalance -5 ml -1800 ml 630 ml Exam Gen: NAD CV RRR PULM coarse bs ABD: soft, nd nt +bs EXT: no edema Results Result Diagram: 08/25/18 0400 08/25/18 0400 Results 24hrs Laboratory Tests Test 08/25/18 04:00 08/25/18 06:39 White Blood Count 11.5 H Red Blood Count 2.82 L Hemoglobin 8.1 L Hematocrit 26.1 L Mean Corpuscular Volume 92.6 Mean Corpuscular Hemoglobin 28.7 L Mean Corpuscular Hemoglobin Concent 31.0 L Red Cell Distribution Width 15.9 H Platelet Count 253 Mean Platelet Volume 13.6 H Immature Granulocytes % 2.300 H Neutrophils % 78.4 H Lymphocytes % 10.9 L Monocytes % 4.3 Eosinophils % 3.6 Basophils % 0.5 Nucleated Red Blood Cells % 0.0 Immature Granulocytes # 0.260 H Neutrophils # 9.0 H Lymphocytes # 1.3 Monocytes # 0.5 Eosinophils # 0.4 Basophils # 0.1 Nucleated Red Blood Cells # 0.0 Sodium Level 139 Potassium Level 4.4 Chloride Level 103 Carbon Dioxide Level 26 Anion Gap 10 Blood Urea Nitrogen 52 #H Creatinine 2.78 #H Est Glomerular Filtrat Rate mL/min 19 L Glucose Level 129 Calcium Level 7.3 L Phosphorus Level 5.5 #H Magnesium Level 1.8 Bedside Glucose 131 Medications Medication Current Medications Norepinephrine 250 ml @ 1.875 mls/ hr TITRATE IV Last administered on 08/10/18at 00:41; Admin Dose 5.625 MLS/HR; Start 08/04/18 at 23:15 Morphine Sulfate (morphine) 1 mg Q1H PRN IV PAIN Last administered on 08/24/18 02:57; Admin Dose 1 MG; Start 08/04/18 at 23:30 Atorvastatin Calcium (Lipitor) 80 mg DAILY@21 PO Last administered on 08/24/18 21:01; Admin Dose 80 MG; Start 08/05/18 at 21:00 Nitroglycerin/ Dextrose 250 ml @ 1.5 mls/hr TITRATE IV Last administered on 08/05/18at 14:22; Admin Dose 72 MLS/HR; Start 08/05/18 at 01:00 Miscellaneous Information 1 ea NOTE XX ; Start 08/05/18 at 09:00 Acetaminophen (Tylenol Supp) 650 mg Q4H PRN [place] TEMP > 37C Last administered on 08/09/18 04:37; Admin Dose 650 MG; Start 08/05/18 at 11:00 Acetaminophen (Tylenol Liquid) 650 mg Q4H PRN PO TEMP > 37C Last administered on 08/22/18at 20:04; Admin Dose 650 MG; Start 08/05/18 at 11:00 Meperidine HCl (Demerol) 25 mg Q4H PRN IV POST OPERATIVE SHIVERING Last administered on 08/05/18 16:31; Admin Dose 25 MG; Start 08/05/18 at 11:00 Eye Lubricant (Akwa Oint) 1 applic Q6 BOTH EYES Last administered on 08/25/18 05:04; Admin Dose 1 APPLIC; Start 08/05/18 at 12:00 Eye Lubricant (Artificial Tears Oph) 2 drop Q6 BOTH EYES Last administered on 08/25/18 05:04; Admin Dose 2 DROP; Start 08/05/18 at 12:00 Insulin Human Regular 100 unit/ Sodium Chloride 100 ml @ 0 mls/hr PER PROTOCOL IV ; Start 08/05/18 at 12:00 Miscellaneous Information (* Miscellaneous Pharmacy Order) Treatment of Hypoglycemia: 1.BG 51... Per protocol XX ; Start 08/05/18 at 12:00 Dextrose (D50w Syringe) 25 ml Q15M PRN IV .DECREASED GLUCOSE; Start 08/05/18 at 12:00 Dextrose (D50w Syringe) 50 ml Q15M PRN IV .DECREASED GLUCOSE; Start 08/05/18 at 12:00 Fentanyl 100 ml @ 2.5 mls/hr TITRATE IV Last administered on 08/25/18 09:37; Admin Dose 10 MLS/HR; Start 08/05/18 at 12:00 Meperidine HCl (Demerol) 12.5 mg Q2H PRN IV POST OPERATIVE SHIVERING; Start 08/05/18 at 17:00 Aspirin (Aspirin) 81 mg DAILY NGT Last administered on 08/25/18 08:36; Admin Dose 81 MG; Start 08/06/18 at 09:00 Multivitamins (Multivitamin) 30 ml DAILY NGT Last administered on 08/25/18 08:36; Admin Dose 30 ML; Start 08/09/18 at 09:00 Zinc Sulfate (Zinc Sulfate) 220 mg DAILY NGT Last administered on 08/25/18 08:36; Admin Dose 220 MG; Start 08/09/18 at 09:00 Folic Acid (Folic Acid) 1 mg DAILY NGT Last administered on 08/25/18 08:36; Admin Dose 1 MG; Start 08/09/18 at 09:00 Ascorbic Acid (Vitamin C) 500 mg DAILY NGT Last administered on 08/25/18 08:36; Admin Dose 500 MG; Start 08/09/18 at 09:00 Albuterol (Ventolin Hfa) 4 puff Q6HWA RESP THERAPY INH Last administered on 08/25/18 01:43; Admin Dose 4 PUFF; Start 08/09/18 at 14:00 Ipratropium [place] (Atrovent Hfa) 4 puff Q6H RESP THERAPY INH Last administered on 08/25/18 09:01; Admin Dose 4 PUFF; Start 08/09/18 at 14:00 IV Flush (NS 10 ml) 10 ml PRN PRN IV IV PROTOCOL; Start 08/11/18 at 16:30 Heparin Sodium (Porcine) (Heparin (1000 Units/ml)) 3,000 unit PRN PRN CATHETER Dialysis Last administered on 08/24/18 16:14; Admin Dose 3,000 UNIT; Start 08/12/18 at 14:30 Labetalol HCl (Labetalol) 10 mg Q4H PRN IV ELEVATED SYSTOLIC BP > 180 Last administered on 08/20/18 16:54; Admin Dose 10 MG; Start 08/14/18 at 19:00 Midazolam HCl 50 ml @ 1 mls/hr TITRATE IV Last administered on 08/20/18 00:16; Admin Dose 5 MLS/HR; Start 08/15/18 at 11:00 Hydralazine HCl (Apresoline) 20 mg Q2 PRN IV ELEVATED SYSTOLIC BP Last administered on 08/22/18 16:18; Admin Dose 20 MG; Start 08/16/18 at 08:00 Metronidazole 100 ml @ 100 mls/hr Q8 IVPB Last administered on 08/25/18 05:04; Admin Dose 100 MLS/HR; Start 08/16/18 at 22:00 Carvedilol (Coreg) 12.5 mg Q6H PO Last administered on 08/25/18 07:56; Admin Dose 12.5 MG; Start 08/17/18 at 01:00 Docusate Sodium (Colace Liquid Cup) 100 mg BID GTB Last administered on 08/25/18 08:36; Admin Dose 100 MG; Start 08/18/18 at 09:00 Clopidogrel Bisulfate (plaVIX) 75 mg DAILY NGT Last administered on 08/25/18 08:36; Admin Dose 75 MG; Start 08/18/18 at 13:30 Cefazolin Sodium 50 ml @ 100 mls/hr Q24H IVPB Last administered on 08/24/18 16:22; Admin Dose 100 MLS/HR; Start 08/19/18 at 14:00 Levofloxacin/ Dextrose 50 ml @ 50 mls/hr Q48H IVPB Last administered on 11:30; Admin Dose 50 MLS/HR; Start 08/19/18 at 12:30 Rifaximin (Xifaxan) 200 mg TID PO Last administered on 08/25/18 08:36; Admin Dose 200 MG; Start 08/19/18 at 13:00 Albumin Human 100 ml @ 100 mls/hr DURING DIALYSIS PRN IV HYPOTENSION DURING HD Last administered on 08/22/18 10:24; Admin Dose 100 MLS/HR; Start 08/22/18 at 10:00 Pantoprazole 80 mg/Sodium Chloride 100 ml @ 10 mls/hr Q10H IV Last administered on 08/25/18 01:52; Admin Dose 10 MLS/HR; Start 08/23/18 at 00:00 Sevelamer Carbonate (Renvela) 2.4 gm WITH MEALS GTB Last administered on 08/25/18 07:56; Admin Dose 2.4 GM; Start 08/23/18 at 11:30 Ondansetron HCl (Zofran Inj) 4 mg Q4H PRN IV NAUSEA AND/OR VOMITING Last administered on 08/23/18 21:52; Admin Dose 4 MG; Start 08/23/18 at 14:30 Lactobacillus Acidophilus/ Rhamnosus (Culturelle) 1 cap TID GTB Last administered on 08/25/18 08:36; Admin Dose 1 CAP; Start 08/24/18 at 13:00 JED PEDROZA MD Aug 25, 2018 11:18
[2018-08-25] MEDS: LEVOFLOXACIN 250MG/D5W (PMX) 50 ML IVPB SCH (11:51)
--- NOTE | 2018-08-25 14:56 | PN ---
Date/Time of Note Date/Time of Note DATE: 08/25/18 TIME: 14:55 Assessment/Plan Lines/Catheters IV Catheter Type (from Nrsg): PICC Line Aguilar in Place (from Nrsg): Yes Assessment/Plan Assessment/Plan SP Tracheostomy No bleeding Will continue vent support Trach care pulm toilet Subjective 24 Hr Interval Summary Constitutional: improved Pain Control: mild Exam/Review of Systems Vital Signs Vitals Vital Signs Date Temp Pulse Resp B/P (MAP) Pulse Ox O2 O2 Flow FiO2 Time Delivery Rate 08/25/18 109 14:27 08/25/18 25 123/74 93 Mechanical 14:00 (90) Ventilator 08/25/18 99.2 12:00 08/25/18 30 08:00 Intake and Output 08/24/18 08/24/18 08/25/18 1515:00 23:00 07:00 IntakeIntake Total 260 ml 460 ml 670 ml OutputOutput Total 265 ml 2260 ml 40 ml BalanceBalance -5 ml -1800 ml 630 ml Exam Eyes: nl conjunctiva, EOMI, nl lids, nl sclera ENMT: nl external ears & nose, nl lips & teeth, nl nasal mucosa & septum, mucosa pink and moist Neck: supple, non-tender Respiratory: clear to auscultation, normal air movement Cardiovascular: regular rate and rhythm, nl pulses Gastrointestinal: soft, nl liver, spleen, non-tender Musculoskeletal: nl extremities to inspection, nl gait and stance Results Result Diagram: 08/25/18 0400 08/25/18 0400 KRISTOFER BAKER MD Aug 25, 2018 14:56
--- NOTE | 2018-08-25 15:29 | CONS ---
Assessment/Plan Assessment/Plan Hospital Course (Demo Recall) Patient is in dialysis looks comfortable, afebrile WBC 11.5 platelets 253 neutrophils 78.4. Chest x-ray this morning revealed unchanged bilateral lower lobe airspace disease Antimicrobials: Ancef, Levaquin, Flagyl Microbiology: Urine culture on admission grew E. coli and Proteus, blood cult ures growing oxacillin sensitive staph aureus endotracheal aspirate also growing oxacillin sensitive staph aureus ear drainage preliminary growing staph aureus, repeat blood cultures 2 days ago negative Indwelling: Trach, PEG, right femoral Devan, right upper extremity PICC line Physical examination: Obese well-developed middle-aged woman who is intubated in no distress. Head atraumatic normocephalic neck is supple chest rise symmetrical breath sounds diminished bases. Heart: S1-S2. Abdomen distended. Bowel sounds hypoactive. Extremities cyanotic Assessment: 1. Resolving sepsis, s/p shock 2. Oxacillin sensitive staph aureus bacteremia 2 to #3 3. Oxacillin sensitive staph aureus pneumonia 4. Polymicrobial UTI 5. ST elevation IA, status post stent 6. Status post V. fib arrest 7. Acute renal failure, started on hemodialysis 8. 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 Anemia and thrombocytopenia 10. Acute sinusitis and bilateral mastoiditis 11. Morbid obesity 12. Diarrhea, r/o C dif Plan: Continues to improve, pending repeat blood cultures from [facility] sears antibiotics in a.m. and observe Consultation Date/Type/Reason Admit Date/Time Aug 04, 2018 at 23:10 Initial Consult Date 08/12/18 Type of Consult id Requesting Provider: HARPAL AGGARWAL MD Date/Time of Note DATE: 08/25/18 TIME: 15:27 Exam/Review of Systems Exam Vitals Vital Signs Date Temp Pulse Resp B/P (MAP) Pulse Ox O2 O2 Flow FiO2 Time Delivery Rate 08/25/18 109 14:27 08/25/18 25 123/74 93 Mechanical 14:00 (90) Ventilator 08/25/18 99.2 12:00 08/25/18 30 08:00 Intake and Output 08/24/18 08/24/18 08/25/18 1515:00 23:00 07:00 IntakeIntake Total 260 ml 460 ml 690 ml OutputOutput Total 265 ml 2260 ml 40 ml BalanceBalance -5 ml -1800 ml 650 ml Results Result Diagram: 08/25/18 0400 08/25/18 0400 Results 24hrs Laboratory Tests Test 08/25/18 04:00 08/25/18 06:39 White Blood Count 11.5 H Red Blood Count 2.82 L Hemoglobin 8.1 L Hematocrit 26.1 L Mean Corpuscular Volume 92.6 Mean Corpuscular Hemoglobin 28.7 L Mean Corpuscular Hemoglobin Concent 31.0 L Red Cell Distribution Width 15.9 H Platelet Count 253 Mean Platelet Volume 13.6 H Immature Granulocytes % 2.300 H Neutrophils % 78.4 H Lymphocytes % 10.9 L Monocytes % 4.3 Eosinophils % 3.6 Basophils % 0.5 Nucleated Red Blood Cells % 0.0 Immature Granulocytes # 0.260 H Neutrophils # 9.0 H Lymphocytes # 1.3 Monocytes # 0.5 Eosinophils # 0.4 Basophils # 0.1 Nucleated Red Blood Cells # 0.0 Sodium Level 139 Potassium Level 4.4 Chloride Level 103 Carbon Dioxide Level 26 Anion Gap 10 Blood Urea Nitrogen 52 #H Creatinine 2.78 #H Est Glomerular Filtrat Rate mL/min 19 L Glucose Level 129 Calcium Level 7.3 L Phosphorus Level 5.5 #H Magnesium Level 1.8 Bedside Glucose 131 Medications Medication Current Medications Norepinephrine 250 ml @ 1.875 mls/ hr TITRATE IV Last administered on 08/10/18at 00:41; Admin Dose 5.625 MLS/HR; Start 08/04/18 at 23:15 Morphine Sulfate (morphine) 1 mg Q1H PRN IV PAIN Last administered on 08/24/18at 02:57; Admin Dose 1 MG; Start 08/04/18 at 23:30 Atorvastatin Calcium (Lipitor) 80 mg DAILY@21 PO Last administered on 08/24/18at 21:01; Admin Dose 80 MG; Start 08/05/18 at 21:00 Nitroglycerin/ Dextrose 250 ml @ 1.5 mls/hr TITRATE IV Last administered on 08/05/18at 14:22; Admin Dose 72 MLS/HR; Start 08/05/18 at 01:00 Miscellaneous Information 1 ea NOTE XX ; Start 08/05/18 at 09:00 Acetaminophen (Tylenol Supp) 650 mg Q4H PRN [place] TEMP > 37C Last administered on 3/21/19at 04:37; Admin Dose 650 MG; Start 08/05/18 at 11:00 Acetaminophen (Tylenol Liquid) 650 mg Q4H PRN PO TEMP > 37C Last administered o n 08/22/18 20:04; Admin Dose 650 MG; Start 08/05/18 at 11:00 Meperidine HCl (Demerol) 25 mg Q4H PRN IV POST OPERATIVE SHIVERING Last administered on 08/05/18 16:31; Admin Dose 25 MG; Start 08/05/18 at 11:00 Eye Lubricant (Akwa Oint) 1 applic Q6 BOTH EYES Last administered on 08/25/18 11:51; Admin Dose 1 APPLIC; Start 08/05/18 at 12:00 Eye Lubricant (Artificial Tears Oph) 2 drop Q6 BOTH EYES Last administered on 08/25/18 11:51; Admin Dose 2 DROP; Start 08/05/18 at 12:00 Insulin Human Regular 100 unit/ Sodium Chloride 100 ml @ 0 mls/hr PER PROTOCOL IV ; Start 08/05/18 at 12:00 Miscellaneous Information (* Miscellaneous Pharmacy Order) Treatment of Hypoglycemia: 1.BG 51... Per protocol XX ; Start 08/05/18 at 12:00 Dextrose (D50w Syringe) 25 ml Q15M PRN IV .DECREASED GLUCOSE; Start 08/05/18 at 12:00 Dextrose (D50w Syringe) 50 ml Q15M PRN IV .DECREASED GLUCOSE; Start 08/05/18 at 12:00 Fentanyl 100 ml @ 2.5 mls/hr TITRATE IV Last administered on 08/25/18 09:37; Admin Dose 10 MLS/HR; Start 08/05/18 at 12:00 Meperidine HCl (Demerol) 12.5 mg Q2H PRN IV POST OPERATIVE SHIVERING; Start 08/05/18 at 17:00 Aspirin (Aspirin) 81 mg DAILY NGT Last administered on 08/25/18 08:36; Admin Dose 81 MG; Start 08/06/18 at 09:00 Multivitamins (Multivitamin) 30 ml DAILY NGT Last administered on 08/25/18 08:36; Admin Dose 30 ML; Start 08/09/18 at 09:00 Zinc Sulfate (Zinc Sulfate) 220 mg DAILY NGT Last administered on 08/25/18 08:36; Admin Dose 220 MG; Start 08/09/18 at 09:00 Folic Acid (Folic Acid) 1 mg DAILY NGT Last administered on 08/25/18 08:36; Admin Dose 1 MG; Start 08/09/18 at 09:00 Ascorbic Acid (Vitamin C) 500 mg DAILY NGT Last administered on 08/25/18 08:36; Admin Dose 500 MG; Start 08/09/18 at 09:00 Albuterol (Ventolin Hfa) 4 puff Q6HWA RESP THERAPY INH Last administered on 08/25/18 01:43; Admin Dose 4 PUFF; Start 08/09/18 at 14:00 Ipratropium [place] (Atrovent Hfa) 4 puff Q6H RESP THERAPY INH Last administered on 08/25/18 09:01; Admin Dose 4 PUFF; Start 08/09/18 at 14:00 IV Flush (NS 10 ml) 10 ml PRN PRN IV IV PROTOCOL; Start 08/11/18 at 16:30 Heparin Sodium (Porcine) (Heparin (1000 Units/ml)) 3,000 unit PRN PRN CATHETER Dialysis Last administered on 08/24/18 16:14; Admin Dose 3,000 UNIT; Start 08/12/18 at 14:30 Labetalol HCl (Labetalol) 10 mg Q4H PRN IV ELEVATED SYSTOLIC BP > 180 Last administered on 08/20/18 16:54; Admin Dose 10 MG; Start 08/14/18 at 19:00 Midazolam HCl 50 ml @ 1 mls/hr TITRATE IV Last administered on 08/20/18 00:16; Admin Dose 5 MLS/HR; Start 08/15/18 at 11:00 Hydralazine HCl (Apresoline) 20 mg Q2 PRN IV ELEVATED SYSTOLIC BP Last administered on 08/22/18 16:18; Admin Dose 20 MG; Start 08/16/18 at 08:00 Metronidazole 100 ml @ 100 mls/hr Q8 IVPB Last administered on 08/25/18 05:04; Admin Dose 100 MLS/HR; Start 08/16/18 at 22:00 Carvedilol (Coreg) 12.5 mg Q6H PO Last administered on 08/25/18 07:56; Admin Dose 12.5 MG; Start 08/17/18 at 01:00 Docusate Sodium (Colace Liquid Cup) 100 mg BID GTB Last administered on 08/25/18 at 08:36; Admin Dose 100 MG; Start 08/18/18 at 09:00 Clopidogrel Bisulfate (plaVIX) 75 mg DAILY NGT Last administered on 08/25/18 08:36; Admin Dose 75 MG; Start 08/18/18 at 13:30 Cefazolin Sodium 50 ml @ 100 mls/hr Q24H IVPB Last administered on 08/24/18 16:22; Admin Dose 100 MLS/HR; Start 08/19/18 at 14:00 Levofloxacin/ Dextrose 50 ml @ 50 mls/hr Q48H IVPB Last administered on 08/25/18 11:51; Admin Dose 50 MLS/HR; Start 08/19/18 at 12:30 Rifaximin (Xifaxan) 200 mg TID PO Last administered on 08/25/18 08:36; Admin Dose 200 MG; Start 08/19/18 at 13:00 Albumin Human 100 ml @ 100 mls/hr DURING DIALYSIS PRN IV HYPOTENSION DURING HD Last administered on 08/22/18 10:24; Admin Dose 100 MLS/HR; Start 08/22/18 at 10:00 Pantoprazole 80 mg/Sodium Chloride 100 ml @ 10 mls/hr Q10H IV Last admini stered on 08/25/18 11:53; Admin Dose 10 MLS/HR; Start 08/23/18 at 00:00 Sevelamer Carbonate (Renvela) 2.4 gm WITH MEALS GTB Last administered on 08/25/18 11:51; Admin Dose 2.4 GM; Start 08/23/18 at 11:30 Ondansetron HCl (Zofran Inj) 4 mg Q4H PRN IV NAUSEA AND/OR VOMITING Last administered on 08/23/18 21:52; Admin Dose 4 MG; Start 08/23/18 at 14:30 Lactobacillus Acidophilus/ Rhamnosus (Culturelle) 1 cap TID GTB Last administered on 08/25/18 08:36; Admin Dose 1 CAP; Start 08/24/18 at 13:00 WIN LUCIANO NP Aug 25, 2018 15:29
[2018-08-25] MEDS: HEPARIN 1000 UNITS/ML 10 ML INJ CATHETER PRN (17:28)
[2018-08-25] MEDS: CEFAZOLIN 1 GM/50 ML (PMX) 50 ML IVPB SCH (17:57)
[2018-08-25] MEDS: ATORVASTATIN 80 MG TAB PO SCH (21:04)
[2018-08-26] VITALS (47 sets, daily range): BP systolic 101–142; BP diastolic 55–99; PULSE 102–120; RESP 16–25
[2018-08-26] MEDS: ARTIFICIAL TEARS 15 ML OPH BOTH EYES SCH ×4 (00:09→18:11)
[2018-08-26] MEDS: OCULAR LUBRICANT 3.5 GM OPH OINT BOTH EYES SCH ×4 (00:09→18:11)
[2018-08-26] MEDS: IPRATROPIUM (HFA) 12.9 GM INHALER INH SCH ×4 (01:02→19:17)
[2018-08-26] MEDS: metroNIDAZOLE 500 MG/NS (PMX) 100 ML IVPB SCH ×2 (05:52→13:39)
[2018-08-26] MEDS: SEVELAMER CARBONATE 2.4 GM PKT GTB SCH ×3 (06:36→18:10)
[2018-08-26] MEDS: PANTOPRAZOLE IV 80 MG in SOD CHLORIDE 0.9% 100 ML IV SCH ×2 (06:37→16:48)
[2018-08-26] MEDS: FENTAnyl (DRIP) 1000 mcg/100mL 100 ML IV SCH ×2 (06:38→17:41)
[2018-08-26] MEDS: RIFAXIMIN 200 MG TAB PO SCH ×3 (08:29→21:16)
[2018-08-26] MEDS: DOCUSATE SODIUM 10 MG/ML (10ML CUP) GTB SCH ×2 (08:29→21:16)
[2018-08-26] MEDS: ASCORBIC ACID 500 MG TAB NGT SCH (08:29)
[2018-08-26] MEDS: ZINC SULFATE 220 MG CAP NGT SCH (08:29)
[2018-08-26] MEDS: FOLIC ACID 1 MG TAB NGT SCH (08:30)
[2018-08-26] MEDS: MULTIVITAMINS 30 ML CUP NGT SCH (08:30)
[2018-08-26] MEDS: ASPIRIN 81 MG TAB NGT SCH (08:30)
[2018-08-26] MEDS: LACTOBACILLUS RHAMNOSUS CAP GTB SCH ×3 (08:30→21:16)
[2018-08-26] MEDS: CLOPIDOGREL 75 MG TAB NGT SCH (08:30)
[2018-08-26] MEDS: ALBUTEROL HFA 8 GM INHALER INH SCH ×3 (08:43→19:17)
--- NOTE | 2018-08-26 09:07 | PN ---
Date/Time of Note Date/Time of Note DATE: 08/26/18 TIME: 09:07 Assessment/Plan VTE Prophylaxis Risk score (from Nsg)>0 risk: 4 SCD applied (from Nsg): Yes Pharmacological prophylaxis: other Lines/Catheters IV Catheter Type (from Nrsg): PICC Line Central line still needed: Yes Urinary Cath still in place: Yes Reason Cath still needed: terminal illness/intractable pain Assessment/Plan Assessment/Plan 1. Acute hypoxic respiratory failure - Per Pulm, trach may be sitting on trach wall and will need possible XLT. ?Bronch to visualize - Patients mentation improved significantly and will continue weaning from vent as tolerated - Dr. Wilson consultation appreciated for trach placement - GI consultation appreciated for PEG placement 2. Acute toxic/metabolic encephalopathy- resolved - Patients mentation appears to be at baseline. answering questions and following commands. moving all extremities - Neurology input appreciated and will reconsult if needed 3. Bilateral CVA - Found on MRI, likely thromboembolic secondary to cardiopulmonary arrest per neurology - Continue on aspirin and Lipitor 4. Anemia, blood loss and renal disease- stable - Hgb remains stable and no need for transfusion at this time 5. Bilateral Pneumonia - D/c antibiotics today and monitor 6. Septic shock secondary to PNA and bacteremia- resolved - Blood cultures and sputum culture results noted. - ID on board and will d/c antibiotics today and monitor 7. CAD s/p PCI x2 - Cardiology on board and appreciate recommendations. Stressed importance of continuing DAPT given recent stent placements and high risk of restenosis - s/p emergent Cath 08/05 with successful PTCA and stenting of proximal and mid LAD, PTCA of the large first diagonal and thrombectomy of the LAD - Repeat PCI on 08/07 performed with stenting to LCx - plans for stenting of RCA prior to discharge if possible 8. Renal failure on HD - Nephrology on board and appreciate recommendations. Continue HD - secondary to septic shock, ATN vs prerenal vs contrast induced nephropathy - will avoid nephrotoxic agents 9. Diabetes - A1c noted - ISS not needed 10. S/p V-fib cardiac arrest secondary to STEMI - Completed hypothermia protocol 11. Disposition - Continue weaning from vent as tolerated. Will continue weaning off Fentanyl in order to transfer to Telemetry - on board for placement to [facility] >35 minutes of critical care time spent with patient and father at bedside Result Diagram: 08/26/18 0315 08/26/18 0315 Results 24hrs Laboratory Tests Test 08/26/18 03:15 08/26/18 05:00 White Blood Count 13.0 H Red Blood Count 3.10 L Hemoglobin 9.0 L Hematocrit 29.2 L Mean Corpuscular Volume 94.2 Mean Corpuscular Hemoglobin 29.0 Mean Corpuscular Hemoglobin Concent 30.8 L Red Cell Distribution Width 15.9 H Platelet Count 227 Mean Platelet Volume 14.2 H Immature Granulocytes % 2.900 H Neutrophils % 79.9 H Lymphocytes % 8.6 L Monocytes % 4.3 Eosinophils % 3.5 Basophils % 0.8 Nucleated Red Blood Cells % 0.0 Immature Granulocytes # 0.370 H Neutrophils # 10.4 H Lymphocytes # 1.1 Monocytes # 0.6 Eosinophils # 0.5 Basophils # 0.1 Nucleated Red Blood Cells # 0.0 Sodium Level 139 Potassium Level 4.2 Chloride Level 104 Carbon Dioxide Level 29 Anion Gap 6 Blood Urea Nitrogen 40 #H Creatinine 2.41 H Est Glomerular Filtrat Rate mL/min 22 L Glucose Level 126 Calcium Level 8.1 L Blood Gas Specimen Source Blood arterial Arterial Blood Date Drawn 08/26/2018 4:30:54 AM Arterial Blood pH (Temp corrected) 7.311 L Arterial Blood pCO2 (Temp correct) 60.7 H Arterial Blood pO2 (Temp corrected) 93.9 Arterial Blood HCO3 29.9 H Arterial Blood Base Excess 2.5 Arterial Blood Oxygen Saturation 96.5 Dajuan Test ACCEPTAB Arterial Blood Gas Puncture Site Right Radial Arterial Blood Carboxyhemoglobin 0.3 Arterial Blood Methemoglobin 0.2 Blood Gas A-a O2 Differential 48.7 H Oxyhemoglobin Percent 96.0 Blood Gas Temperature 37.0 Blood Gas Respiration Rate 10.0 Blood Gas Actual Respiration Rate 20 Blood Gas Modality VENT - SIMV FiO2 30.0 Blood Gas Tidal Volume 400.0 Blood Gas Low PEEP Setting 5.0 Blood Gas Pressure Support 14 Blood Gas Notified Whom MA Blood Gas Notified Time 08/26/2018 4:55:51 AM Subjective 24 Hr Interval Summary Free Text/Dictation Patient doing well with no acute overnight events. Still with some clots via trach. Tolerating SIMV this am. Exam/Review of Systems Exam Vitals Vital Signs Date Temp Pulse Resp B/P (MAP) Pulse Ox O2 O2 Flow FiO2 Time Delivery Rate 08/26/18 109 16 117/72 100 Mechanical 06:00 (87) Ventilator 4/7/19 30 05:12 08/26/18 98.2 04:00 Intake and Output 08/25/18 08/25/18 08/26/18 1515:00 23:00 07:00 IntakeIntake Total 590 ml 630 ml 550 ml OutputOutput Total 250 ml 1495 ml 10 ml BalanceBalance 340 ml -865 ml 540 ml Exam General: Patient is laying in bed, shaking head to questions appropriately. No distress noted Eyes: EOMI, pupils reactive to light. Neck: Supple, trach in place. Respiratory: Coarse breath sounds. no wheezing appreciated Cardiovascular: S1, S2, regular rhythm, tachycardia, no obvious murmurs Gastrointestinal: soft, nontender to palpation, nondistended, bowel sounds heard. PEG in place Skin: No new skin lesions Neuro: moving all extremities to commands. Results Results 24hrs Laboratory Tests Test 08/26/18 03:15 08/26/18 05:00 White Blood Count 13.0 H Red Blood Count 3.10 L Hemoglobin 9.0 L Hematocrit 29.2 L Mean Corpuscular Volume 94.2 Mean Corpuscular Hemoglobin 29.0 Mean Corpuscular Hemoglobin Concent 30.8 L Red Cell Distribution Width 15.9 H Platelet Count 227 Mean Platelet Volume 14.2 H Immature Granulocytes % 2.900 H Neutrophils % 79.9 H Lymphocytes % 8.6 L Monocytes % 4.3 Eosinophils % 3.5 Basophils % 0.8 Nucleated Red Blood Cells % 0.0 Immature Granulocytes # 0.370 H Neutrophils # 10.4 H Lymphocytes # 1.1 Monocytes # 0.6 Eosinophils # 0.5 Basophils # 0.1 Nucleated Red Blood Cells # 0.0 Sodium Level 139 Potassium Level 4.2 Chloride Level 104 Carbon Dioxide Level 29 Anion Gap 6 Blood Urea Nitrogen 40 #H Creatinine 2.41 H Est Glomerular Filtrat Rate mL/min 22 L Glucose Level 126 Calcium Level 8.1 L Blood Gas Specimen Source Blood arterial Arterial Blood Date Drawn 08/26/2018 4:30:54 AM Arterial Blood pH (Temp corrected) 7.311 L Arterial Blood pCO2 (Temp correct) 60.7 H Arterial Blood pO2 (Temp corrected) 93.9 Arterial Blood HCO3 29.9 H Arterial Blood Base Excess 2.5 Arterial Blood Oxygen Saturation 96.5 Dajuan Test ACCEPTAB Arterial Blood Gas Puncture Site Right Radial Arterial Blood Carboxyhemoglobin 0.3 Arterial Blood Methemoglobin 0.2 Blood Gas A-a O2 Differential 48.7 H Oxyhemoglobin Percent 96.0 Blood Gas Temperature 37.0 Blood Gas Respiration Rate 10.0 Blood Gas Actual Respiration Rate 20 Blood Gas Modality VENT - SIMV FiO2 30.0 Blood Gas Tidal Volume 400.0 Blood Gas Low PEEP Setting 5.0 Blood Gas Pressure Support 14 Blood Gas Notified Whom MA Blood Gas Notified Time 08/26/2018 4:55:51 AM Medications Medication Current Medications Norepinephrine 250 ml @ 1.875 mls/ hr TITRATE IV Last administered on 08/10/18 00:41; Admin Dose 5.625 MLS/HR; Start 08/04/18 at 23:15 Morphine Sulfate (morphine) 1 mg Q1H PRN IV PAIN Last administered on 08/24/18 02:57; Admin Dose 1 MG; Start 08/04/18 at 23:30 Atorvastatin Calcium (Lipitor) 80 mg DAILY@21 PO Last administered on 08/25/18 21:04; Admin Dose 80 MG; Start 08/05/18 at 21:00 Nitroglycerin/ Dextrose 250 ml @ 1.5 mls/hr TITRATE IV Last administered on 08/05/18 14:22; Admin Dose 72 MLS/HR; Start 08/05/18 at 01:00 Miscellaneous Information 1 ea NOTE XX ; Start 08/05/18 at 09:00 Acetaminophen (Tylenol Supp) 650 mg Q4H PRN [place] TEMP > 37C Last administered on 08/09/18 04:37; Admin Dose 650 MG; Start 08/05/18 at 11:00 Acetaminophen (Tylenol Liquid) 650 mg Q4H PRN PO TEMP > 37C Last administered on 08/22/18 20:04; Admin Dose 650 MG; Start 08/05/18 at 11:00 Meperidine HCl (Demerol) 25 mg Q4H PRN IV POST OPERATIVE SHIVERING Last administered on 08/05/18 16:31; Admin Dose 25 MG; Start 08/05/18 at 11:00 Eye Lubricant (Akwa Oint) 1 applic Q6 BOTH EYES Last administered on 08/26/18 05:53; Admin Dose 1 APPLIC; Start 08/05/18 at 12:00 Eye Lubricant (Artificial Tears Oph) 2 drop Q6 BOTH EYES Last administered on 08/26/18 05:52; Admin Dose 2 DROP; Start 08/05/18 at 12:00 Insulin Human Regular 100 unit/ Sodium Chloride 100 ml @ 0 mls/hr PER PROTOCOL IV ; Start 08/05/18 at 12:00 Miscellaneous Information (* Miscellaneous Pharmacy Order) Treatment of Hypoglycemia: 1.BG 51... Per protocol XX ; Start 08/05/18 at 12:00 Dextrose (D50w Syringe) 25 ml Q15M PRN IV .DECREASED GLUCOSE; Start 08/05/18 at 12:00 Dextrose (D50w Syringe) 50 ml Q15M PRN IV .DECREASED GLUCOSE; Start 08/05/18 at 12:00 Fentanyl 100 ml @ 2.5 mls/hr TITRATE IV Last administered on 08/26/18 06:38; Admin Dose 10 MLS/HR; Start 08/05/18 at 12:00 Meperidine HCl (Demerol) 12.5 mg Q2H PRN IV POST OPERATIVE SHIVERING; Start 08/05/18 at 17:00 Aspirin (Aspirin) 81 mg DAILY NGT Last administered on 08/26/18 08:30; Admin Dose 81 MG; Start 08/06/18 at 09:00 Multivitamins (Multivitamin) 30 ml DAILY NGT Last administered on 08/26/18 08:30; Admin Dose 30 ML; Start 08/09/18 at 09:00 Zinc Sulfate (Zinc Sulfate) 220 mg DAILY NGT Last administered on 08/26/18 08:29; Admin Dose 220 MG; Start 08/09/18 at 09:00 Folic Acid (Folic Acid) 1 mg DAILY NGT Last administered on 08/26/18 08:30; Admin Dose 1 MG; Start 08/09/18 at 09:00 Ascorbic Acid (Vitamin C) 500 mg DAILY NGT Last administered on 08/26/18 08:29; Admin Dose 500 MG; Start 08/09/18 at 09:00 Albuterol (Ventolin Hfa) 4 puff Q6HWA RESP THERAPY INH Last administered on 08/26/18 08:43; Admin Dose 4 PUFF; Start 08/09/18 at 14:00 Ipratropium [place] (Atrovent Hfa) 4 puff Q6H RESP THERAPY INH Last administered on 08/26/18 08:43; Admin Dose 4 PUFF; Start 08/09/18 at 14:00 IV Flush (NS 10 ml) 10 ml PRN PRN IV IV PROTOCOL; Start 08/11/18 at 16:30 Heparin Sodium (Porcine) (Heparin (1000 Units/ml)) 3,000 unit PRN PRN CATHETER Dialysis Last administered on 08/25/18 17:28; Admin Dose 3,000 UNIT; Start 08/12/18 at 14:30 Labetalol HCl (Labetalol) 10 mg Q4H PRN IV ELEVATED SYSTOLIC BP > 180 Last administered on 08/20/18 16:54; Admin Dose 10 MG; Start 08/14/18 at 19:00 Midazolam HCl 50 ml @ 1 mls/hr TITRATE IV Last administered on 08/20/18 00:16; Admin Dose 5 MLS/HR; Start 08/15/18 at 11:00 Hydralazine HCl (Apresoline) 20 mg Q2 PRN IV ELEVATED SYSTOLIC BP Last administered on 08/22/18 16:18; Admin Dose 20 MG; Start 08/16/18 at 08:00 Metronidazole 100 ml @ 100 mls/hr Q8 IVPB Last administered on 08/26/18 05:52; Admin Dose 100 MLS/HR; Start 08/16/18 at 22:00 Carvedilol (Coreg) 12.5 mg Q6H PO Last administered on 08/26/18 06:36; Admin Dose 12.5 MG; Start 08/17/18 at 01:00 Docusate Sodium (Colace Liquid Cup) 100 mg BID GTB Last administered on 08/25/18 21:06; Admin Dose 100 MG; Start 08/18/18 at 09:00 Clopidogrel Bisulfate (plaVIX) 75 mg DAILY NGT Last administered on 08/26/18 08:30; Admin Dose 75 MG; Start 08/18/18 at 13:30 Cefazolin Sodium 50 ml @ 100 mls/hr Q24H IVPB Last administered on 08/25/18 17:57; Admin Dose 100 MLS/HR; Start 08/19/18 at 14:00 Levofloxacin/ Dextrose 50 ml @ 50 mls/hr Q48H IVPB Last administered on 08/25 11:51; Admin Dose 50 MLS/HR; Start 08/19/18 at 12:30 Rifaximin (Xifaxan) 200 mg TID PO Last administered on 08/26/18 08:29; Admin Dose 200 MG; Start 08/19/18 at 13:00 Albumin Human 100 ml @ 100 mls/hr DURING DIALYSIS PRN IV HYPOTENSION DURING HD Last administered on 08/22/18 10:24; Admin Dose 100 MLS/HR; Start 08/22/18 at 10:00 Pantoprazole 80 mg/Sodium Chloride 100 ml @ 10 mls/hr Q10H IV Last administered on 08/26/18 06:37; Admin Dose 10 MLS/HR; Start 08/23/18 at 00:00 Sevelamer Carbonate (Renvela) 2.4 gm WITH MEALS GTB Last administered on 08/26/18 06:36; Admin Dose 2.4 GM; Start 08/23/18 at 11:30 Ondansetron HCl (Zofran Inj) 4 mg Q4H PRN IV NAUSEA AND/OR VOMITING Last administered on 08/23/18 21:52; Admin Dose 4 MG; Start 08/23/18 at 14:30 Lactobacillus Acidophilus/ Rhamnosus (Culturelle) 1 cap TID GTB Last administered on 08/26/18 08:30; Admin Dose 1 CAP; Start 08/24/18 at 13:00 THOMAS RILEY MD Aug 26, 2018 09:07
--- NOTE | 2018-08-26 10:36 | CONS ---
Consult Date/Type/Reason Admit Date/Time Aug 04, 2018 at 23:10 Initial Consult Date 08/05/18 Type of Consultation: Pulm/CCM Requesting Provider: HARPAL AGGARWAL MD Date/Time of Note DATE: 08/26/18 TIME: 10:32 Subjective Awake and responsive on the vent. Tolerating SIMV with PS. Objective Vitals Vital Signs Date Temp Pulse Resp B/P (MAP) Pulse Ox O2 O2 Flow FiO2 Time Delivery Rate 08/26/18 108 08:00 08/26/18 30 08:00 08/26/18 16 117/72 100 Mechanical 06:00 (87) Ventilator 08/26/18 98.2 04:00 Intake and Output 08/25/18 08/25/18 08/26/18 1515:00 23:00 07:00 IntakeIntake Total 590 ml 630 ml 550 ml OutputOutput Total 250 ml 1495 ml 10 ml BalanceBalance 340 ml -865 ml 540 ml Exam HEENT: Neck supple; no JVD; no LAD; + trach CVS: RRR, S1 and S2 CHEST: Coarse BS b/l ABD: Soft, NT, + BS EXT: No c/c/e NEURO: Awake and responsive; moving all extremities Results/Medications Result Diagram: 08/26/185 08/26/18 0315 Results 24 hrs Laboratory Tests Test 08/26/18 03:15 08/26/18 05:00 White Blood Count 13.0 H Red Blood Count 3.10 L Hemoglobin 9.0 L Hematocrit 29.2 L Mean Corpuscular Volume 94.2 Mean Corpuscular Hemoglobin 29.0 Mean Corpuscular Hemoglobin Concent 30.8 L Red Cell Distribution Width 15.9 H Platelet Count 227 Mean Platelet Volume 14.2 H Immature Granulocytes % 2.900 H Neutrophils % 79.9 H Lymphocytes % 8.6 L Monocytes % 4.3 Eosinophils % 3.5 Basophils % 0.8 Nucleated Red Blood Cells % 0.0 Immature Granulocytes # 0.370 H Neutrophils # 10.4 H Lymphocytes # 1.1 Monocytes # 0.6 Eosinophils # 0.5 Basophils # 0.1 Nucleated Red Blood Cells # 0.0 Sodium Level 139 Potassium Level 4.2 Chloride Level 104 Carbon Dioxide Level 29 Anion Gap 6 Blood Urea Nitrogen 40 #H Creatinine 2.41 H Est Glomerular Filtrat Rate mL/min 22 L Glucose Level 126 Calcium Level 8.1 L Blood Gas Specimen Source Blood arterial Arterial Blood Date Drawn 08/26/2018 4:30:54 AM Arterial Blood pH (Temp corrected) 7.311 L Arterial Blood pCO2 (Temp correct) 60.7 H Arterial Blood pO2 (Temp corrected) 93.9 Arterial Blood HCO3 29.9 H Arterial Blood Base Excess 2.5 Arterial Blood Oxygen Saturation 96.5 Dajuan Test ACCEPTAB Arterial Blood Gas Puncture Site Right Radial Arterial Blood Carboxyhemoglobin 0.3 Arterial Blood Methemoglobin 0.2 Blood Gas A-a O2 Differential 48.7 H Oxyhemoglobin Percent 96.0 Blood Gas Temperature 37.0 Blood Gas Respiration Rate 10.0 Blood Gas Actual Respiration Rate 20 Blood Gas Modality VENT - SIMV FiO2 30.0 Blood Gas Tidal Volume 400.0 Blood Gas Low PEEP Setting 5.0 Blood Gas Pressure Support 14 Blood Gas Notified Whom MA Blood Gas Notified Time 08/26/2018 4:55:51 AM Medications Current Medications Norepinephrine 250 ml @ 1.875 mls/ hr TITRATE IV Last administered on 08/10/18 00:41; Admin Dose 5.625 MLS/HR; Start 08/04/18 at 23:15 Morphine Sulfate (morphine) 1 mg Q1H PRN IV PAIN Last administered on 08/24/18 02:57; Admin Dose 1 MG; Start 08/04/18 at 23:30 Atorvastatin Calcium (Lipitor) 80 mg DAILY@21 PO Last administered on 08/25/18 21:04; Admin Dose 80 MG; Start 08/05/18 at 21:00 Nitroglycerin/ Dextrose 250 ml @ 1.5 mls/hr TITRATE IV Last administered on 08/05/18 14:22; Admin Dose 72 MLS/HR; Start 08/05/18 at 01:00 Miscellaneous Information 1 ea NOTE XX ; Start 08/05/18 at 09:00 Acetaminophen (Tylenol Supp) 650 mg Q4H PRN [place] TEMP > 37C Last administered on 08/09/18 04:37; Admin Dose 650 MG; Start 08/05/18 at 11:00 Acetaminophen (Tylenol Liquid) 650 mg Q4H PRN PO TEMP > 37C Last administered on 08/22/18 20:04; Admin Dose 650 MG; Start 08/05/18 at 11:00 Meperidine HCl (Demerol) 25 mg Q4H PRN IV POST OPERATIVE SHIVERING Last administered on 08/05/18 16:31; Admin Dose 25 MG; Start 08/05/18 at 11:00 Eye Lubricant (Akwa Oint) 1 applic Q6 BOTH EYES Last administered on 08/26/18 05:53; Admin Dose 1 APPLIC; Start 08/05/18 at 12:00 Eye Lubricant (Artificial Tears Oph) 2 drop Q6 BOTH EYES Last administered on 08/26/18 05:52; Admin Dose 2 DROP; Start 08/05/18 at 12:00 Insulin Human Regular 100 unit/ Sodium Chloride 100 ml @ 0 mls/hr PER PROTOCOL IV ; Start 08/05/18 at 12:00 Miscellaneous Information (* Miscellaneous Pharmacy Order) Treatment of Hypoglycemia: 1.BG 51... Per protocol XX ; Start 08/05/18 at 12:00 Dextrose (D50w Syringe) 25 ml Q15M PRN IV .DECREASED GLUCOSE; Start 08/05/18 at 12:00 Dextrose (D50w Syringe) 50 ml Q15M PRN IV .DECREASED GLUCOSE; Start 08/05/18 at 12:00 Fentanyl 100 ml @ 2.5 mls/hr TITRATE IV Last administered on 08/26/18 06:38; Admin Dose 10 MLS/HR; Start 08/05/18 at 12:00 Meperidine HCl (Demerol) 12.5 mg Q2H PRN IV POST OPERATIVE SHIVERING; Start 08/05/18 at 17:00 Aspirin (Aspirin) 81 mg DAILY NGT Last administered on 08/26/18 08:30; Admin Dose 81 MG; Start 08/06/18 at 09:00 Multivitamins (Multivitamin) 30 ml DAILY NGT Last administered on 08/26/18 08:30; Admin Dose 30 ML; Start 08/09/18 at 09:00 Zinc Sulfate (Zinc Sulfate) 220 mg DAILY NGT Last administered on 08/26/18 08:29; Admin Dose 220 MG; Start 08/09/18 at 09:00 Folic Acid (Folic Acid) 1 mg DAILY NGT Last administered on 08/26/18 08:30; Admin Dose 1 MG; Start 08/09/18 at 09:00 Ascorbic Acid (Vitamin C) 500 mg DAILY NGT Last administered on 08/26/18 08:29; Admin Dose 500 MG; Start 08/09/18 at 09:00 Albuterol (Ventolin Hfa) 4 puff Q6HWA RESP THERAPY INH Last administered on 08:43; Admin Dose 4 PUFF; Start 08/09/18 at 14:00 Ipratropium [place] (Atrovent Hfa) 4 puff Q6H RESP THERAPY INH Last administered on 08/26/18 08:43; Admin Dose 4 PUFF; Start 08/09/18 at 14:00 IV Flush (NS 10 ml) 10 ml PRN PRN IV IV PROTOCOL; Start 08/11/18 at 16:30 Heparin Sodium (Porcine) (Heparin (1000 Units/ml)) 3,000 unit PRN PRN CATHETER Dialysis Last administered on 08/25/18 17:28; Admin Dose 3,000 UNIT; Start 08/12/18 at 14:30 Labetalol HCl (Labetalol) 10 mg Q4H PRN IV ELEVATED SYSTOLIC BP > 180 Last administered on 08/20/18 16:54; Admin Dose 10 MG; Start 08/14/18 at 19:00 Midazolam HCl 50 ml @ 1 mls/hr TITRATE IV Last administered on 08/20/18 00:16; Admin Dose 5 MLS/HR; Start 08/15/18 at 11:00 Hydralazine HCl (Apresoline) 20 mg Q2 PRN IV ELEVATED SYSTOLIC BP Last adm inistered on 08/22/18 16:18; Admin Dose 20 MG; Start 08/16/18 at 08:00 Metronidazole 100 ml @ 100 mls/hr Q8 IVPB Last administered on 08/26/18 05:52; Admin Dose 100 MLS/HR; Start 08/16/18 at 22:00 Carvedilol (Coreg) 12.5 mg Q6H PO Last administered on 08/26/18 06:36; Admin Dose 12.5 MG; Start 08/17/18 at 01:00 Docusate Sodium (Colace Liquid Cup) 100 mg BID GTB Last administered on 08/25/18 21:06; Admin Dose 100 MG; Start 08/18/18 at 09:00 Clopidogrel Bisulfate (plaVIX) 75 mg DAILY NGT Last administered on 08/26/18 08:30; Admin Dose 75 MG; Start 08/18/18 at 13:30 Cefazolin Sodium 50 ml @ 100 mls/hr Q24H IVPB Last administered on 08/25/18 17:57; Admin Dose 100 MLS/HR; Start 08/19/18 at 14:00 Levofloxacin/ Dextrose 50 ml @ 50 mls/hr Q48H IVPB Last administered on 08/25/18 11:51; Admin Dose 50 MLS/HR; Start 08/19/18 at 12:30 Rifaximin (Xifaxan) 200 mg TID PO Last administered on 08/26/18 08:29; Admin Dose 200 MG; Start 08/19/18 at 13:00 Albumin Human 100 ml @ 100 mls/hr DURING DIALYSIS PRN IV HYPOTENSION DURING HD Last administered on 08/22/18 10:24; Admin Dose 100 MLS/HR; Start 08/22/18 at 10:00 Pantoprazole 80 mg/Sodium Chloride 100 ml @ 10 mls/hr Q10H IV Last administered on 08/26/18 06:37; Admin Dose 10 MLS/HR; Start 08/23/18 at 00:00 Sevelamer Carbonate (Renvela) 2.4 gm WITH MEALS GTB Last administered on 08/26/18 06:36; Admin Dose 2.4 GM; Start 08/23/18 at 11:30 Ondansetron HCl (Zofran Inj) 4 mg Q4H PRN IV NAUSEA AND/OR VOMITING Last administered on 08/23/18 21:52; Admin Dose 4 MG; Start 08/23/18 at 14:30 Lactobacillus Acidophilus/ Rhamnosus (Culturelle) 1 cap TID GTB Last administered on 08/26/18 08:30; Admin Dose 1 CAP; Start 08/24/18 at 13:00 Assessment/Plan Assessment/Plan (Daily) IMP: 1. Ventricular Fibrillation Arrest--s/p ROSC 2/2 STEMI s/p PCI status post hypothermia protocol. Multivessel coronary artery disease status post stent placement x3 2. STEMI, Status post stent x3 placement. 3. CVA multiple infarcts noted. 4. Hypoxemic respiratory failure now status post tracheostomy placement 5. HUSEYIN--likely ATN continues hemodialysis 6. Ischemic hepatopathy--2/2 arrest 7. Resolving encephalopathy RECS: 1. Minimize sedation 2. Continue slow weaning with SIMV rate 10; PS 14 cm H20; PEEP 5; may slowly reduce rate as tolerated. 3. Continue tube feeding 4. Follow H/H 5. Continue Abx 6. Pulmonary toilet 7. Hemodialysis per nephrology 8. PT/OT Critical care time 40 minutes. LA PEARSON MD Aug 26, 2018 10:35
[2018-08-26] MEDS ORDERED: SOD CHLORIDE 0.9% 1,000 ML IV PRN (11:38)
--- NOTE | 2018-08-26 11:43 | CONS ---
Assessment/Plan Assessment/Plan Assessment/Plan (Daily) 1. Anuric acute kidney injury with unknown baseline creatinine. Etiology secondary to acute tubular necrosis. The patient remains dialysis dependent. Plan for HD today again for hypervolemia 2. Volume overload, improving. Continue ultrafiltration dialysis. 3. Anemia. Monitor hemoglobin and hematocrit levels. Continue Epogen. 4. Tracheal bleed, resolved. Etiology was secondary to recent trach placement, possible component of uremic bleeding. The patient is status post DDAVP. Continue to monitor. 5. Mineral bone disorder, monitor calcium and phosphorus levels. The patient remains hyperphosphatemic. Continue phosphatase binders. Will increase dialysis with solute clearance. 6. Ventilator-dependent respiratory failure. Vent settings and ABG was reviewed. Continue to monitor. 7. Coronary artery disease with ST elevated myocardial infarction. The patient is status post cardiac catheterization and percutaneous coronary intervention. 8. Sepsis, status post shock. The patient has completed an antibiotic course. 9. Acute encephalopathy, etiology is toxic metabolic secondary to acute cerebrovascular accident. Continue medical management. 10. Acute CVA. Continue current treatment plan. 11. Dysphagia. Continue tube feeding. 12. Morbid obesity. 13. Status post cardiac arrest. Consultation Date/Type/Reason Admit Date/Time Aug 04, 2018 at 23:10 Initial Consult Date 08/17/18 Requesting Provider: HARPAL AGGARWAL MD Date/Time of Note DATE: 08/26/18 TIME: 11:41 24 HR Interval Summary Free Text/Dictation remains on the vent via trach. s/p HD yesterday but still c/o shortness of breath vent settings reviewed d/w rn GEN nad cv rrr pulm coarse bs abd soft, nd, nt +bs ext: no edema Exam/Review of Systems Exam Vitals Vital Signs Date Temp Pulse Resp B/P (MAP) Pulse Ox O2 O2 Flow FiO2 Time Delivery Rate 08/26/18 106 20 100 30 11:10 08/26/18 121/74 Mechanical 11:00 (90) Ventilator 08/26/18 97.6 08:00 Intake and Output 08/25/18 08/25/18 08/26/18 1515:00 23:00 07:00 IntakeIntake Total 590 ml 630 ml 580 ml OutputOutput Total 250 ml 1495 ml 10 ml BalanceBalance 340 ml -865 ml 570 ml Results Result Diagram: 08/26/18 0315 08/26/18 0315 Results 24hrs Laboratory Tests Test 08/26/18 03:15 08/26/18 05:00 White Blood Count 13.0 H Red Blood Count 3.10 L Hemoglobin 9.0 L Hematocrit 29.2 L Mean Corpuscular Volume 94.2 Mean Corpuscular Hemoglobin 29.0 Mean Corpuscular Hemoglobin Concent 30.8 L Red Cell Distribution Width 15.9 H Platelet Count 227 Mean Platelet Volume 14.2 H Immature Granulocytes % 2.900 H Neutrophils % 79.9 H Lymphocytes % 8.6 L Monocytes % 4.3 Eosinophils % 3.5 Basophils % 0.8 Nucleated Red Blood Cells % 0.0 Immature Granulocytes # 0.370 H Neutrophils # 10.4 H Lymphocytes # 1.1 Monocytes # 0.6 Eosinophils # 0.5 Basophils # 0.1 Nucleated Red Blood Cells # 0.0 Sodium Level 139 Potassium Level 4.2 Chloride Level 104 Carbon Dioxide Level 29 Anion Gap 6 Blood Urea Nitrogen 40 #H Creatinine 2.41 H Est Glomerular Filtrat Rate mL/min 22 L Glucose Level 126 Calcium Level 8.1 L Blood Gas Specimen Source Blood arterial Arterial Blood Date Drawn 08/26/2018 4:30:54 AM Arterial Blood pH (Temp corrected) 7.311 L Arterial Blood pCO2 (Temp correct) 60.7 H Arterial Blood pO2 (Temp corrected) 93.9 Arterial Blood HCO3 29.9 H Arterial Blood Base Excess 2.5 Arterial Blood Oxygen Saturation 96.5 Dajuan Test ACCEPTAB Arterial Blood Gas Puncture Site Right Radial Arterial Blood Carboxyhemoglobin 0.3 Arterial Blood Methemoglobin 0.2 Blood Gas A-a O2 Differential 48.7 H Oxyhemoglobin Percent 96.0 Blood Gas Temperature 37.0 Blood Gas Respiration Rate 10.0 Blood Gas Actual Respiration Rate 20 Blood Gas Modality VENT - SIMV FiO2 30.0 Blood Gas Tidal Volume 400.0 Blood Gas Low PEEP Setting 5.0 Blood Gas Pressure Support 14 Blood Gas Notified Whom MA Blood Gas Notified Time 08/26/2018 4:55:51 AM Medications Medication Current Medications Norepinephrine 250 ml @ 1.875 mls/ hr TITRATE IV Last administered on at 00:41; Admin Dose 5.625 MLS/HR; Start 08/04/18 at 23:15 Morphine Sulfate (morphine) 1 mg Q1H PRN IV PAIN Last administered on 08/24/18at 02:57; Admin Dose 1 MG; Start 08/04/18 at 23:30 Atorvastatin Calcium (Lipitor) 80 mg DAILY@21 PO Last administered on 08/25/18at 21:04; Admin Dose 80 MG; Start 08/05/18 at 21:00 Nitroglycerin/ Dextrose 250 ml @ 1.5 mls/hr TITRATE IV Last administered on 08/05/18at 14:22; Admin Dose 72 MLS/HR; Start 08/05/18 at 01:00 Miscellaneous Information 1 ea NOTE XX ; Start 08/05/18 at 09:00 Acetaminophen (Tylenol Supp) 650 mg Q4H PRN [place] TEMP > 37C Last administered on 08/09/18at 04:37; Admin Dose 650 MG; Start 08/05/18 at 11:00 Acetaminophen (Tylenol Liquid) 650 mg Q4H PRN PO TEMP > 37C Last administered on 08/22/18at 20:04; Admin Dose 650 MG; Start 08/05/18 at 11:00 Meperidine HCl (Demerol) 25 mg Q4H PRN IV POST OPERATIVE SHIVERING Last administered on 08/05/18at 16:31; Admin Dose 25 MG; Start 08/05/18 at 11:00 Eye Lubricant (Akwa Oint) 1 applic Q6 BOTH EYES Last administered on 08/26/18at 05:53; Admin Dose 1 APPLIC; Start 08/05/18 at 12:00 Eye Lubricant (Artificial Tears Oph) 2 drop Q6 BOTH EYES Last administered on 08/26/18at 05:52; Admin Dose 2 DROP; Start 08/05/18 at 12:00 Insulin Human Regular 100 unit/ Sodium Chloride 100 ml @ 0 mls/hr PER PROTOCOL IV ; Start 08/05/18 at 12:00 Miscellaneous Information (* Miscellaneous Pharmacy Order) Treatment of Hypoglycemia: 1.BG 51... Per protocol XX ; Start 08/05/18 at 12:00 Dextrose (D50w Syringe) 25 ml Q15M PRN IV .DECREASED GLUCOSE; Start 08/05/18 at 12:00 Dextrose (D50w Syringe) 50 ml Q15M PRN IV .DECREASED GLUCOSE; Start 08/05/18 at 12:00 Fentanyl 100 ml @ 2.5 mls/hr TITRATE IV Last administered on 4/7/19at 06:38; Admin Dose 10 MLS/HR; Start 08/05/18 at 12:00 Meperidine HCl (Demerol) 12.5 mg Q2H PRN IV POST OPERATIVE SHIVERING; Start 08/05/18 at 17:00 Aspirin (Aspirin) 81 mg DAILY NGT Last administered on 08/26/18 08:30; Admin Dose 81 MG; Start 08/06/18 at 09:00 Multivitamins (Multivitamin) 30 ml DAILY NGT Last administered on 08/26/18 08:30; Admin Dose 30 ML; Start 08/09/18 at 09:00 Zinc Sulfate (Zinc Sulfate) 220 mg DAILY NGT Last administered on 08/26/18 08:29; Admin Dose 220 MG; Start 08/09/18 at 09:00 Folic Acid (Folic Acid) 1 mg DAILY NGT Last administered on 08/26/18 08:30; Admin Dose 1 MG; Start 08/09/18 at 09:00 Ascorbic Acid (Vitamin C) 500 mg DAILY NGT Last administered on 08/26/18 08:29; Admin Dose 500 MG; Start 08/09/18 at 09:00 Albuterol (Ventolin Hfa) 4 puff Q6HWA RESP THERAPY INH Last administered on 08/26/18 08:43; Admin Dose 4 PUFF; Start 08/09/18 at 14:00 Ipratropium [place] (Atrovent Hfa) 4 puff Q6H RESP THERAPY INH Last administered on 08/26/18 08:43; Admin Dose 4 PUFF; Start 08/09/18 at 14:00 IV Flush (NS 10 ml) 10 ml PRN PRN IV IV PROTOCOL; Start 08/11/18 at 16:30 Heparin Sodium (Porcine) (Heparin (1000 Units/ml)) 3,000 unit PRN PRN CATHETER Dialysis Last administered on 08/25/18 17:28; Admin Dose 3,000 UNIT; Start 08/12/18 at 14:30 Labetalol HCl (Labetalol) 10 mg Q4H PRN IV ELEVATED SYSTOLIC BP > 180 Last administered on 08/20/18 16:54; Admin Dose 10 MG; Start 08/14/18 at 19:00 Midazolam HCl 50 ml @ 1 mls/hr TITRATE IV Last administered on 08/20/18 00:16; Admin Dose 5 MLS/HR; Start 08/15/18 at 11:00 Hydralazine HCl (Apresoline) 20 mg Q2 PRN IV ELEVATED SYSTOLIC BP Last administered on 08/22/18 16:18; Admin Dose 20 MG; Start 08/16/18 at 08:00 Metronidazole 100 ml @ 100 mls/hr Q8 IVPB Last administered on 08/26/18 05:52; Admin Dose 100 MLS/HR; Start 08/16/18 at 22:00 Carvedilol (Coreg) 12.5 mg Q6H PO Last administered on 08/26/18 06:36; Admin Dose 12.5 MG; Start 08/17/18 at 01:00 Docusate Sodium (Colace Liquid Cup) 100 mg BID GTB Last administered on 08/25/18 21:06; Admin Dose 100 MG; Start 08/18/18 at 09:00 Clopidogrel Bisulfate (plaVIX) 75 mg DAILY NGT Last administered on 08/26/18 08:30; Admin Dose 75 MG; Start 08/18/18 at 13:30 Cefazolin Sodium 50 ml @ 100 mls/hr Q24H IVPB Last administered on 08/25/18 17:57; Admin Dose 100 MLS/HR; Start 08/19/18 at 14:00 Levofloxacin/ Dextrose 50 ml @ 50 mls/hr Q48H IVPB Last administered on 08/25/18 11:51; Admin Dose 50 MLS/HR; Start 08/19/18 at 12:30 Rifaximin (Xifaxan) 200 mg TID PO Last administered on 08/26/18 08:29; Admin Dose 200 MG; Start 08/19/18 at 13:00 Albumin Human 100 ml @ 100 mls/hr DURING DIALYSIS PRN IV HYPOTENSION DURING HD Last administered on 08/22/18 10:24; Admin Dose 100 MLS/HR; Start 08/22/18 at 10:00 Pantoprazole 80 mg/Sodium Chloride 100 ml @ 10 mls/hr Q10H IV Last administered on 08/26/18 06:37; Admin Dose 10 MLS/HR; Start 08/23/18 at 00:00 Sevelamer Carbonate (Renvela) 2.4 gm WITH MEALS GTB Last administered on 08/26/18at 06:36; Admin Dose 2.4 GM; Start 08/23/18 at 11:30 Ondansetron HCl (Zofran Inj) 4 mg Q4H PRN IV NAUSEA AND/OR VOMITING Last administered on 08/23/18at 21:52; Admin Dose 4 MG; Start 08/23/18 at 14:30 Lactobacillus Acidophilus/ Rhamnosus (Culturelle) 1 cap TID GTB Last administered on 08/26/18at 08:30; Admin Dose 1 CAP; Start 08/24/18 at 13:00 JED PEDROZA MD Aug 26, 2018 11:43
[2018-08-26] MEDS ORDERED: ALBUMIN HUMAN 25% 100 ML IV PRN (12:00)
[2018-08-26] MEDS ORDERED: SODIUM CHLORIDE 0.9% 1L BAG IV PRN (12:00)
--- NOTE | 2018-08-26 14:38 | CONS ---
Assessment/Plan Assessment/Plan Hospital Course (Demo Recall) Alert, looks comfortable, no fevers Antimicrobials: none Microbiology: Urine culture on admission grew E. coli and Proteus, blood cultures growing oxacillin sensitive staph aureus endotracheal aspirate also growing oxacillin sensitive staph aureus ear drainage preliminary growing staph aureus, repeat blood cultures 2 days ago negative Indwelling: Trach, PEG, right femoral Devan, right upper extremity PICC line Physical examination: Obese well-developed middle-aged woman who is intubated in no distress. Head atraumatic normocephalic neck is supple chest rise symmetrical breath sounds diminished bases. Heart: S1-S2. Abdomen distended. Bowel sounds hypoactive. Extremities cyanotic Assessment: 1. Resolving sepsis, s/p shock 2. S/p Oxacillin sensitive staph aureus bacteremia 2 to #3 3. S/p Oxacillin sensitive staph aureus pneumonia 4. S/p polymicrobial UTI 5. ST elevation MS, status post stent 6. Status post V. fib arrest 7. Acute renal failure, started on hemodialysis 8. 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 Anemia and thrombocytopenia 10. Acute sinusitis and bilateral mastoiditis 11. Morbid obesity 12. Diarrhea, r/o C dif Plan: Doing better, repeat blood cultures from pcath negative, will dc abx and observe Consultation Date/Type/Reason Admit Date/Time Aug 04, 2018 at 23:10 Initial Consult Date 08/12/18 Type of Consult id Requesting Provider: HARPAL AGGARWAL MD Date/Time of Note DATE: 08/26/18 TIME: 14:36 Exam/Review of Systems Exam Vitals Vital Signs Date Temp Pulse Resp B/P (MAP) Pulse Ox O2 O2 Flow FiO2 Time Delivery Rate 08/26/18 107 12:00 08/26/18 20 100 30 11:10 08/26/18 121/74 Mechanical 11:00 (90) Ventilator 08/26/18 97.6 08:00 Intake and Output 08/25/18 08/25/18 08/26/18 1515:00 23:00 07:00 IntakeIntake Total 590 ml 630 ml 700 ml OutputOutput Total 250 ml 1495 ml 10 ml BalanceBalance 340 ml -865 ml 690 ml Results Result Diagram: 08/26/18 0315 08/26/18 0315 Results 24hrs Laboratory Tests Test 08/26/18 03:15 08/26/18 05:00 White Blood Count 13.0 H Red Blood Count 3.10 L Hemoglobin 9.0 L Hematocrit 29.2 L Mean Corpuscular Volume 94.2 Mean Corpuscular Hemoglobin 29.0 Mean Corpuscular Hemoglobin Concent 30.8 L Red Cell Distribution Width 15.9 H Platelet Count 227 Mean Platelet Volume 14.2 H Immature Granulocytes % 2.900 H Neutrophils % 79.9 H Lymphocytes % 8.6 L Monocytes % 4.3 Eosinophils % 3.5 Basophils % 0.8 Nucleated Red Blood Cells % 0.0 Immature Granulocytes # 0.370 H Neutrophils # 10.4 H Lymphocytes # 1.1 Monocytes # 0.6 Eosinophils # 0.5 Basophils # 0.1 Nucleated Red Blood Cells # 0.0 Sodium Level 139 Potassium Level 4.2 Chloride Level 104 Carbon Dioxide Level 29 Anion Gap 6 Blood Urea Nitrogen 40 #H Creatinine 2.41 H Est Glomerular Filtrat Rate mL/min 22 L Glucose Level 126 Calcium Level 8.1 L Blood Gas Specimen Source Blood arterial Arterial Blood Date Drawn 08/26/2018 4:30:54 AM Arterial Blood pH (Temp corrected) 7.311 L Arterial Blood pCO2 (Temp correct) 60.7 H Arterial Blood pO2 (Temp corrected) 93.9 Arterial Blood HCO3 29.9 H Arterial Blood Base Excess 2.5 Arterial Blood Oxygen Saturation 96.5 Dajuan Test ACCEPTAB Arterial Blood Gas Puncture Site Right Radial Arterial Blood Carboxyhemoglobin 0.3 Arterial Blood Methemoglobin 0.2 Blood Gas A-a O2 Differential 48.7 H Oxyhemoglobin Percent 96.0 Blood Gas Temperature 37.0 Blood Gas Respiration Rate 10.0 Blood Gas Actual Respiration Rate 20 Blood Gas Modality VENT - SIMV FiO2 30.0 Blood Gas Tidal Volume 400.0 Blood Gas Low PEEP Setting 5.0 Blood Gas Pressure Support 14 Blood Gas Notified Whom MA Blood Gas Notified Time 08/26/2018 4:55:51 AM Medications Medication Current Medications Norepinephrine 250 ml @ 1.875 mls/ hr TITRATE IV Last administered on 08/10/18at 00:41; Admin Dose 5.625 MLS/HR; Start 08/04/18 at 23:15 Morphine Sulfate (morphine) 1 mg Q1H PRN IV PAIN Last administered on 08/24/18at 02:57; Admin Dose 1 MG; Start 08/04/18 at 23:30 Atorvastatin Calcium (Lipitor) 80 mg DAILY@21 PO Last administered on 08/25/18 21:04; Admin Dose 80 MG; Start 08/05/18 at 21:00 Nitroglycerin/ Dextrose 250 ml @ 1.5 mls/hr TITRATE IV Last administered on 08/05/18 14:22; Admin Dose 72 MLS/HR; Start 08/05/18 at 01:00 Miscellaneous Information 1 ea NOTE XX ; Start 08/05/18 at 09:00 Acetaminophen (Tylenol Supp) 650 mg Q4H PRN [place] TEMP > 37C Last administered on 08/09/18 04:37; Admin Dose 650 MG; Start 08/05/18 at 11:00 Acetaminophen (Tylenol Liquid) 650 mg Q4H PRN PO TEMP > 37C Last administered on 08/22/18 20:04; Admin Dose 650 MG; Start 08/05/18 at 11:00 Meperidine HCl (Demerol) 25 mg Q4H PRN IV POST OPERATIVE SHIVERING Last administered on 08/05/18 16:31; Admin Dose 25 MG; Start 08/05/18 at 11:00 Eye Lubricant (Akwa Oint) 1 applic Q6 BOTH EYES Last administered on 08/26/18 11:44; Admin Dose 1 APPLIC; Start 08/05/18 at 12:00 Eye Lubricant (Artificial Tears Oph) 2 drop Q6 BOTH EYES Last administered on 08/26/18 11:44; Admin Dose 2 DROP; Start 08/05/18 at 12:00 Insulin Human Regular 100 unit/ Sodium Chloride 100 ml @ 0 mls/hr PER PROTOCOL IV ; Start 08/05/18 at 12:00 Miscellaneous Information (* Miscellaneous Pharmacy Order) Treatment of Hypoglycemia: 1.BG 51... Per protocol XX ; Start 08/05/18 at 12:00 Dextrose (D50w Syringe) 25 ml Q15M PRN IV .DECREASED GLUCOSE; Start 08/05/18 at 12:00 Dextrose (D50w Syringe) 50 ml Q15M PRN IV .DECREASED GLUCOSE; Start 08/05/18 at 12:00 Fentanyl 100 ml @ 2.5 mls/hr TITRATE IV Last administered on 08/26/18 06:38; Admin Dose 10 MLS/HR; Start 08/05/18 at 12:00 Meperidine HCl (Demerol) 12.5 mg Q2H PRN IV POST OPERATIVE SHIVERING; Start 08/05/18 at 17:00 Aspirin (Aspirin) 81 mg DAILY NGT Last administered on 08/26/18 08:30; Admin Dose 81 MG; Start 08/06/18 at 09:00 Multivitamins (Multivitamin) 30 ml DAILY NGT Last administered on 08/26/18 0 8:30; Admin Dose 30 ML; Start 08/09/18 at 09:00 Zinc Sulfate (Zinc Sulfate) 220 mg DAILY NGT Last administered on 08/26/18 08:29; Admin Dose 220 MG; Start 08/09/18 at 09:00 Folic Acid (Folic Acid) 1 mg DAILY NGT Last administered on 08/26/18 08:30; Admin Dose 1 MG; Start 08/09/18 at 09:00 Ascorbic Acid (Vitamin C) 500 mg DAILY NGT Last administered on 08/26/18 08:29; Admin Dose 500 MG; Start 08/09/18 at 09:00 Albuterol (Ventolin Hfa) 4 puff Q6HWA RESP THERAPY INH Last administered on 08/26/18 13:54; Admin Dose 4 PUFF; Start 08/09/18 at 14:00 Ipratropium [place] (Atrovent Hfa) 4 puff Q6H RESP THERAPY INH Last administered on 08/26/18 13:54; Admin Dose 4 PUFF; Start 08/09/18 at 14:00 IV Flush (NS 10 ml) 10 ml PRN PRN IV IV PROTOCOL; Start 08/11/18 at 16:30 Heparin Sodium (Porcine) (Heparin (1000 Units/ml)) 3,000 unit PRN PRN CATHETER Dialysis Last administered on 08/25/18 17:28; Admin Dose 3,000 UNIT; Start 08/12/18 at 14:30 Labetalol HCl (Labetalol) 10 mg Q4H PRN IV ELEVATED SYSTOLIC BP > 180 Last administered on 08/20/18 16:54; Admin Dose 10 MG; Start 08/14/18 at 19:00 Midazolam HCl 50 ml @ 1 mls/hr TITRATE IV Last administered on 08/20/18 00:16; Admin Dose 5 MLS/HR; Start 08/15/18 at 11:00 Hydralazine HCl (Apresoline) 20 mg Q2 PRN IV ELEVATED SYSTOLIC BP Last adminis tered on 08/22/18 16:18; Admin Dose 20 MG; Start 08/16/18 at 08:00 Metronidazole 100 ml @ 100 mls/hr Q8 IVPB Last administered on 08/26/18 13:39; Admin Dose 100 MLS/HR; Start 08/16/18 at 22:00 Carvedilol (Coreg) 12.5 mg Q6H PO Last administered on 08/26/18 13:08; Admin Dose 12.5 MG; Start 08/17/18 at 01:00 Docusate Sodium (Colace Liquid Cup) 100 mg BID GTB Last administered on 08/25/18 21:06; Admin Dose 100 MG; Start 08/18/18 at 09:00 Clopidogrel Bisulfate (plaVIX) 75 mg DAILY NGT Last administered on 08/26/18 08:30; Admin Dose 75 MG; Start 08/18/18 at 13:30 Cefazolin Sodium 50 ml @ 100 mls/hr Q24H IVPB Last administered on 08/25/18 17:57; Admin Dose 100 MLS/HR; Start 08/19/18 at 14:00 Levofloxacin/ Dextrose 50 ml @ 50 mls/hr Q48H IVPB Last administered on 08/25/18 11:51; Admin Dose 50 MLS/HR; Start 08/19/18 at 12:30 Rifaximin (Xifaxan) 200 mg TID PO Last administered on 08/26/18 13:07; Admin Dose 200 MG; Start 08/19/18 at 13:00 Pantoprazole 80 mg/Sodium Chloride 100 ml @ 10 mls/hr Q10H IV Last administered on 08/26/18 06:37; Admin Dose 10 MLS/HR; Start 08/23/18 at 00:00 Sevelamer Carbonate (Renvela) 2.4 gm WITH MEALS GTB Last administered on 08/26/18 11:43; Admin Dose 2.4 GM; Start 08/23/18 at 11:30 Ondansetron HCl (Zofran Inj) 4 mg Q4H PRN IV NAUSEA AND/OR VOMITING Last administered on 08/23/18at 21:52; Admin Dose 4 MG; Start 08/23/18 at 14:30 Lactobacillus Acidophilus/ Rhamnosus (Culturelle) 1 cap TID GTB Last administered on 08/26/18at 13:08; Admin Dose 1 CAP; Start 08/24/18 at 13:00 Sodium Chloride 1,000 ml @ 0 mls/hr Q0M PRN IV TO KEEP SBP ABOVE 90; Start 08/26 at 11:38 Albumin Human 100 ml @ 100 mls/hr WITH DIALYSIS PRN IV SBP <90 DURING DIALYSIS; Start 08/26/18 at 12:00 Sodium Chloride (NS) -To prime the dialy... DIRECTED FOR HD PRN IV HD; Start 08/26/18 at 12:00 WIN LUCIANO NP Aug 26, 2018 14:38
[2018-08-26] MEDS: HEPARIN 1000 UNITS/ML 10 ML INJ CATHETER PRN (18:02)
[2018-08-26] MEDS: ONDANSETRON 4 MG INJ IV PRN (18:27)
[2018-08-26] MEDS: ATORVASTATIN 80 MG TAB PO SCH (21:16)
[2018-08-26] MEDS: morphine 2 MG INJ IV PRN ×2 (21:56→22:51)
[2018-08-27] VITALS (78 sets, daily range): BP systolic 71–143; BP diastolic 48–102; PULSE 81–126; RESP 15–28
[2018-08-27] MEDS ORDERED: NITROGLYCERIN 2% 1 GM OINT PKT TD SCH
[2018-08-27] MEDS: ARTIFICIAL TEARS 15 ML OPH BOTH EYES SCH ×4 (00:16→16:42)
[2018-08-27] MEDS: OCULAR LUBRICANT 3.5 GM OPH OINT BOTH EYES SCH ×4 (00:17→16:43)
[2018-08-27] MEDS ORDERED: NITROGLYCERIN 2% 1 GM OINT PKT TD PRN (00:30)
[2018-08-27] MEDS: IPRATROPIUM (HFA) 12.9 GM INHALER INH SCH ×4 (01:07→19:58)
[2018-08-27] MEDS: PANTOPRAZOLE IV 80 MG in SOD CHLORIDE 0.9% 100 ML IV SCH ×2 (04:13→15:34)
[2018-08-27] MEDS ORDERED: LORAZEPAM 2 MG INJ IV PRN (04:30)
[2018-08-27] MEDS ORDERED: FLUMAZENIL 0.5 MG INJ IV ONE (05:30)
[2018-08-27] MEDS: NORepinephrine 8MG/250 ML (PMX 250 ML IV SCH (06:08)
[2018-08-27] MEDS ORDERED: PHENYLephrine 20MG IN 250 ML 250 ML IV SCH (06:30)
[2018-08-27] MEDS ORDERED: SOD CHLORIDE 0.9% 500 ML IV SCH (06:30)
[2018-08-27] MEDS: SEVELAMER CARBONATE 2.4 GM PKT GTB SCH ×3 (06:37→16:39)
[2018-08-27] MEDS: FENTAnyl (DRIP) 1000 mcg/100mL 100 ML IV SCH ×2 (06:59→16:42)
[2018-08-27] MEDS: ALBUTEROL HFA 8 GM INHALER INH SCH ×3 (07:34→19:58)
[2018-08-27] MEDS: MULTIVITAMINS 30 ML CUP NGT SCH (08:21)
[2018-08-27] MEDS: DOCUSATE SODIUM 10 MG/ML (10ML CUP) GTB SCH ×2 (08:21→22:10)
[2018-08-27] MEDS: ZINC SULFATE 220 MG CAP NGT SCH (08:21)
[2018-08-27] MEDS: ASCORBIC ACID 500 MG TAB NGT SCH (08:22)
[2018-08-27] MEDS: ASPIRIN 81 MG TAB NGT SCH (08:22)
[2018-08-27] MEDS: CLOPIDOGREL 75 MG TAB NGT SCH (08:22)
[2018-08-27] MEDS: LACTOBACILLUS RHAMNOSUS CAP GTB SCH ×3 (08:22→22:10)
[2018-08-27] MEDS: RIFAXIMIN 200 MG TAB PO SCH ×3 (08:22→22:10)
[2018-08-27] MEDS: FOLIC ACID 1 MG TAB NGT SCH (08:22)
--- NOTE | 2018-08-27 08:28 | PN ---
DATE: 08/27/2018 SUBJECTIVE: The patient remains in critical condition. The patient is on full ventilator support. Last hemodialysis was yesterday. Overnight, the patient noted to have sudden change in status. Less responsive. The patient is currently back on pressor support. Urinary output has been minimal. Th e patient remains anuric. No other events noted. OBJECTIVE: VITAL SIGNS: Blood pressure is 103/64, respirations 20, pulse 114, temperature 98.6. HEENT: Head is normocephalic. NECK: Supple. HEART: Regular rate. LUNGS: Show diminished breath sounds at the base. ABDOMEN: Soft, nontender to palpation without rebound or guarding. EXTREMITIES: Negative for clubbing, cyanosis, no edema. DERMATOLOGIC: No rashes. MUSCULOSKELETAL: No joint effusions. NEUROLOGIC: Patient is obtunded. LABORATORY DATA: Shows a sodium of 138, potassium 5.4, BUN 44, creatinine 2.58. The patient's CK le renee is 20,000. White count 19.5, hemoglobin 10.0, platelet count is 330. ABG for 08/27 was reviewed . IMAGING STUDIES: The imaging studies were reviewed. MICROBIOLOGY: Reviewed. ASSESSMENT AND PLAN: 1. Anuric acute kidney injury with unknown baseline creatinine. Etiology secondary to acute tubular necrosis. The patient remains dialysis dependent. No signs of renal recovery. Plan for dialysis a gain today for solute clearance as the patient is hyperkalemic. Will monitor closely. 2. Volume overload, improving. Continue ultrafiltration dialysis. 3. Hyperkalemia. The patient will be dialyzed on a 2 potassium bath. 4. Anemia. Monitor hemoglobin and hematocrit levels. Continue Epogen. 5. Rhabdomyolysis. The patient has a markedly elevated CK level. This may be due to recent surgery or procedure. Unclear if there is active rhabdomyolysis. Will continue dialysis for clearance. Mo nitor closely. 6. Mineral bone disorder, monitor calcium and phosphorus levels. Continue phosphate binders. 7. Ventilator dependent respiratory failure. Vent settings and ABG was reviewed. Continue to monit or. 8. Coronary artery disease with a history of ST elevated myocardial infarction. Patient is status p ost cardiac catheterization with PCI. Continue medical management. 9. Sepsis, status post shock. The patient is completing antibiotic course. 10. Acute encephalopathy. Etiology is unclear. The patient had a change in status. Mental status is declined. Unclear if there is a repeat possible CVA. Consider imaging study when clinically stab le. 11. Acute cerebrovascular accident. Continue current treatment plan. 12. Dysphagia. Continue tube feeding. 13. Morbid obesity. 14. Status post cardiac arrest. 15. Respiratory acidemia. The patient's ABG was reviewed. The patient's pC02 is markedly elevated. Would adjust respiratory rate of tidal volume per pulmonary. Please note I spent over 30 minutes of critical care time with this patient. Dictated By: BHUMI REDDY DO NR/NTS Conf#: [id number] DID#: [id number] CC: THOMAS RILEY MD; DANIAL TUCKER MD; LAUREN GREWAL MD;*EndCC*
--- NOTE | 2018-08-27 09:56 | CONS ---
Assessment/Plan Assessment/Plan Assessment/Plan (Daily) Ventilator setting; AC of 28, 100% FiO2 pressure controlled, PEEP of 0. Chest x-ray is showing bilateral pneumonia. Patient is currently on Levophed 10 mics per minute, Protonix 10 mg/h, fentanyl 90 mics per hour. Assessment and recommendations; 1. Patient status post acute MA with PTCA. 2. CVA with encephalopathy, patient now again exhibiting worsening mental status likely from respiratory acidosis. 3. Significant leukocytosis with chest x-ray showing bilateral pneumonia. 4. Renal failure, on hemodialysis. 5. Anemia. Obtain another chest x-ray. Patient need to have a bronchoscopy to rule out tracheal or either right or left mainstem mucous plugging. Consent has been obtained from family. Meanwhile I would recommend adding vancomycin and cefepime. Obtain follow-up chest x-ray in another 24 hours. Prognosis is guarded. 35 minutes of critical care time was spent evaluating patient exclusive of any procedures. Consultation Date/Type/Reason Admit Date/Time Aug 04, 2018 at 23:10 Initial Consult Date 08/17/18 Type of Consult Pulmonary/critical care Requesting Provider: HARPAL AGGARWAL MD Date/Time of Note DATE: 08/27/18 TIME: 09:52 24 HR Interval Summary Free Text/Dictation Patient's condition is critical. Patient has taken a turn for the worse with worsening gas exchange with hypoxemia and hypercapnia. Patient also exhibiting worsening mental status with significant mental obtundation. General exam; young female, on ventilator via tracheostomy, sedated. Currently no distress. Exam/Review of Systems Exam Vitals Vital Signs Date Temp Pulse Resp B/P (MAP) Pulse Ox O2 O2 Flow FiO2 Time Delivery Rate 08/27/18 112 28 100 60 09:16 08/27/18 78/50 (59) 08:45 08/27/18 98.5 Mechanical 08:00 Ventilator Intake and Output 08/26/18 08/26/18 08/27/18 1515:00 23:00 07:00 IntakeIntake Total 550 ml 481 ml 501 ml OutputOutput Total 235 ml 2410 ml 5 ml BalanceBalance 315 ml -1929 ml 496 ml Exam H EENT exam; supple neck, positive JVD. No lymphadenopathy. Midline trachea. No thyromegaly. Tracheostomy place. Patient has fair dentition. No neck masses. Chest exam; diminished breath sounds bilaterally. S1-S2 audible, no murmurs. Regular rhythm. Abdomen exam; soft, G-tube in place. No organomegaly. Bowel sounds audible. Extremity exam; trace edema. AQUATIC SCIENTIST exam; patient is sedated. Results Result Diagram: 08/27/18 0600 08/27/18 0600 Results 24hrs Laboratory Tests Test 08/26/18 22:35 08/27/18 02:35 08/27/18 05:00 08/27/18 05:36 Creatine Kinase 51431 H 95578 H Creatine Kinase 0.3 0.4 Index Creatinine 72.90 H 72.60 H Kinase MB (Mass) Troponin I 0.495 *H 0.720 *H Blood Gas Blood arterial Blood arterial Specimen Source Arterial Blood 08/27/2018 4:00:0 08/27/2018 5:40:0 Date Drawn 0 AM 5 AM Arterial Blood 7.248 *L 7.130 *L pH (Temp corrected ) Arterial Blood 70.2 H 95.5 *H pCO2 (Temp correct) Arterial Blood 88.3 484.4 H pO2 (Temp corrected ) Arterial Blood 30.0 H 31.1 H HCO3 Arterial Blood 1.5 0.1 Base Excess Arterial Blood 95.7 99.4 H Oxygen Saturati on Dajuan Test ACCEPTAB ACCEPTAB Arterial Blood Right Radial Right Radial Gas Puncture Site Arterial 0.3 0.3 Blood Carboxyhe moglobin Arterial Blood 0.2 0.3 Methemoglobin Blood Gas A-a 43.1 H 133.1 H O2 Differential Oxyhemoglobin 95.2 98.8 Percent Blood Gas 37.0 37.0 Temperature Blood Gas 20.0 20.0 Respiration Rate Blood Gas 20 23 Actual Respiration Rat e Blood Gas VENT - AC VENT - PC Modality FiO2 30.0 100.0 Blood Gas Tidal 400.0 Volume Blood Gas Low 5.0 5.0 PEEP Setting Blood Gas NWEST RN N VIRGIE RN Critical Value Read Back Blood Gas FRANCESCO WONG [employer] I [employer]ER Notified Whom Blood Gas 08/27/2018 4:30:0 08/27/2018 5:50:4 Notified Time 0 AM 6 AM Blood Gas 0.9 Inspiratory Time Test 08/27/18 06:00 08/27/18 08:00 White Blood 19.5 #H Count Red Blood Count 3.46 L Hemoglobin 10.0 L Hematocrit 33.5 L Mean 96.8 Corpuscular Volume Mean 28.9 L Corpuscular Hemoglobin Mean 29.9 L Corpuscular Hemoglobin Conc ent Red Cell 15.9 H Distribution Width Platelet Count 330 # Mean Platelet 13.6 H Volume Immature 4.000 H Granulocytes % Neutrophils % 82.7 H Lymphocytes % 6.2 L Monocytes % 4.5 Eosinophils % 1.7 Basophils % 0.9 Nucleated Red 0.0 Blood Cells % Immature 0.780 H Granulocytes # Neutrophils # 16.1 H Lymphocytes # 1.2 Monocytes # 0.9 Eosinophils # 0.3 Basophils # 0.2 H Nucleated Red 0.0 Blood Cells # Sodium Level 138 Potassium Level 5.4 H Chloride Level 101 Carbon Dioxide 27 Level Anion Gap 10 Blood Urea 44 H Nitrogen Creatinine 2.58 H Est Glomerular 21 L Filtrat Rate mL/min Glucose Level 153 Calcium Level 8.6 Blood Gas Blood arterial Specimen Source Arterial Blood 08/27/2018 8:05:4 Date Drawn 3 AM Arterial Blood 7.163 *L pH (Temp corrected ) Arterial Blood 79.5 H pCO2 (Temp correct) Arterial Blood 481.8 H pO2 (Temp corrected ) Arterial Blood 27.9 H HCO3 Arterial Blood -2.0 Base Excess Arterial Blood 99.5 H Oxygen Saturati on Dajuan Test ACCEPTAB Arterial Blood Right Radial Gas Puncture Site Arterial 0.3 Blood Carboxyhe moglobin Arterial Blood 0.2 Methemoglobin Blood Gas A-a 151.7 H O2 Differential Oxyhemoglobin 99.0 Percent Blood Gas 37.0 Temperature Blood Gas 28.0 Respiration Rate Blood Gas 28 Actual Respiration Rat e Blood Gas VENT - PC Modality FiO2 100.0 Blood Gas 1.0 Inspiratory Time Blood Gas 48.0 Inspiratory Pressure Blood Gas Shar WANG RN Critical Value Read Back Blood Gas Notified Whom Blood Gas 08/27/2018 8:15:4 Notified Time 5 AM Medications Medication Current Medications Norepinephrine 250 ml @ 1.875 mls/ hr TITRATE IV Last administered on 08/27/18at 06:08; Admin Dose 3.75 MLS/HR; Start 08/04/18 at 23:15 Morphine Sulfate (morphine) 1 mg Q1H PRN IV PAIN Last administered on 08/26/18 22:51; Admin Dose 1 MG; Start 08/04/18 at 23:30 Atorvastatin Calcium (Lipitor) 80 mg DAILY@21 PO Last administered on 08/26/18 21:16; Admin Dose 80 MG; Start 08/05/18 at 21:00 Nitroglycerin/ Dextrose 250 ml @ 1.5 mls/hr TITRATE IV Last administered on 08/05/18 14:22; Admin Dose 72 MLS/HR; Start 08/05/18 at 01:00 Miscellaneous Information 1 ea NOTE XX ; Start 08/05/18 at 09:00 Acetaminophen (Tylenol Supp) 650 mg Q4H PRN [place] TEMP > 37C Last administered on 08/09/18 04:37; Admin Dose 650 MG; Start 08/05/18 at 11:00 Acetaminophen (Tylenol Liquid) 650 mg Q4H PRN PO TEMP > 37C Last administered on 08/22/18 20:04; Admin Dose 650 MG; Start 08/05/18 at 11:00 Meperidine HCl (Demerol) 25 mg Q4H PRN IV POST OPERATIVE SHIVERING Last administered on 08/05/18 16:31; Admin Dose 25 MG; Start 08/05/18 at 11:00 Eye Lubricant (Akwa Oint) 1 applic Q6 BOTH EYES Last administered on 08/27/18 06:37; Admin Dose 1 APPLIC; Start 08/05/18 at 12:00 Eye Lubricant (Artificial Tears Oph) 2 drop Q6 BOTH EYES Last administered on 08/27/18 06:37; Admin Dose 2 DROP; Start 08/05/18 at 12:00 Insulin Human Regular 100 unit/ Sodium Chloride 100 ml @ 0 mls/hr PER PROTOCOL IV ; Start 08/05/18 at 12:00 Miscellaneous Information (* Miscellaneous Pharmacy Order) Treatment of Hypoglycemia: 1.BG 51... Per protocol XX ; Start 08/05/18 at 12:00 Dextrose (D50w Syringe) 25 ml Q15M PRN IV .DECREASED GLUCOSE; Start 08/05/18 at 12:00 Dextrose (D50w Syringe) 50 ml Q15M PRN IV .DECREASED GLUCOSE; Start 08/05/18 at 12:00 Fentanyl 100 ml @ 2.5 mls/hr TITRATE IV Last administered on 08/27/18 06:59; Admin Dose 9 MLS/HR; Start 08/05/18 at 12:00 Meperidine HCl (Demerol) 12.5 mg Q2H PRN IV POST OPERATIVE SHIVERING; Start 08/05/18 at 17:00 Aspirin (Aspirin) 81 mg DAILY NGT Last administered on 08/27/18 08:22; Admin Dose 81 MG; Start 08/06/18 at 09:00 Multivitamins (Multivitamin) 30 ml DAILY NGT Last administered on 08/27/18 08:21; Admin Dose 30 ML; Start 08/09/18 at 09:00 Zinc Sulfate (Zinc Sulfate) 220 mg DAILY NGT Last administered on 08/27/18 08:21; Admin Dose 220 MG; Start 08/09/18 at 09:00 Folic Acid (Folic Acid) 1 mg DAILY NGT Last administered on 08/27/18 08:22; Admin Dose 1 MG; Start 08/09/18 at 09:00 Ascorbic Acid (Vitamin C) 500 mg DAILY NGT Last administered on 08/27/18 08:22; Admin Dose 500 MG; Start 08/09/18 at 09:00 Albuterol (Ventolin Hfa) 4 puff Q6HWA RESP THERAPY INH Last administered on 08/27/18 07:34; Admin Dose 4 PUFF; Start 08/09/18 at 14:00 Ipratropium [place] (Atrovent Hfa) 4 puff Q6H RESP THERAPY INH Last administered on 08/27/18 07:34; Admin Dose 4 PUFF; Start 08/09/18 at 14:00 IV Flush (NS 10 ml) 10 ml PRN PRN IV IV PROTOCOL; Start 08/11/18 at 16:30 Heparin Sodium (Porcine) (Heparin (1000 Units/ml)) 3,000 unit PRN PRN CATHETER Dialysis Last administered on 08/26/18 18:02; Admin Dose 3,000 UNIT; Start 08/12/18 at 14:30 Labetalol HCl (Labetalol) 10 mg Q4H PRN IV ELEVATED SYSTOLIC BP > 180 Last administered on 08/20/18 16:54; Admin Dose 10 MG; Start 08/14/18 at 19:00 Midazolam HCl 50 ml @ 1 mls/hr TITRATE IV Last administered on 08/20/18 00:16; Admin Dose 5 MLS/HR; Start 08/15/18 at 11:00 Hydralazine HCl (Apresoline) 20 mg Q2 PRN IV ELEVATED SYSTOLIC BP Last administered on 08/22/18 16:18; Admin Dose 20 MG; Start 08/16/18 at 08:00 Carvedilol (Coreg) 12.5 mg Q6H PO Last administered on 08/27/18 00:17; Admin Dose 12.5 MG; Start 08/17/18 at 01:00 Docusate Sodium (Colace Liquid Cup) 100 mg BID GTB Last administered on 08/27/18 08:21; Admin Dose 100 MG; Start 08/18/18 at 09:00 Clopidogrel Bisulfate (plaVIX) 75 mg DAILY NGT Last administered on 08/27/18 08:22; Admin Dose 75 MG; Start 08/18/18 at 13:30 Rifaximin (Xifaxan) 200 mg TID PO Last administered on 08/27/18 08:22; Admin Dose 200 MG; Start 08/19/18 at 13:00 Pantoprazole 80 mg/Sodium Chloride 100 ml @ 10 mls/hr Q10H IV Last administered on 08/27/18 04:13; Admin Dose 10 MLS/HR; Start 08/23/18 at 00:00 Sevelamer Carbonate (Renvela) 2.4 gm WITH MEALS GTB Last administered on 08/27/18 06:37; Admin Dose 2.4 GM; Start 08/23/18 at 11:30 Ondansetron HCl (Zofran Inj) 4 mg Q4H PRN IV NAUSEA AND/OR VOMITING Last administered on 08/26/18 18:27; Admin Dose 4 MG; Start 08/23/18 at 14:30 Lactobacillus Acidophilus/ Rhamnosus (Culturelle) 1 cap TID GTB Last administered on 08/27/18 08:22; Admin Dose 1 CAP; Start 08/24/18 at 13:00 Sodium Chloride 1,000 ml @ 0 mls/hr Q0M PRN IV TO KEEP SBP ABOVE 90; Start 08/26/18 at 11:38 Albumin Human 100 ml @ 100 mls/hr WITH DIALYSIS PRN IV SBP <90 DURING DIALYSIS; Start 08/26/18 at 12:00 Sodium Chloride (NS) -To prime the dialy... DIRECTED FOR HD PRN IV HD; Start 08/26/18 at 12:00 Nitroglycerin (Nitroglycerin 2% Oint) 0.5 inch Q6 PRN TD CHEST PAIN; Start 08/27/18 at 00:30 Lorazepam (Ativan) 1 mg Q4H PRN IV ANXIETY Last administered on 08/27/18at 04:14; Admin Dose 1 MG; Start 08/27/18 at 04:30 Phenylephrine HCl 250 ml @ 75 mls/hr TITRATE IV ; Start 08/27/18 at 06:30 Sodium Chloride 500 ml @ 0 mls/hr Q0M IV Last administered on 08/27/18at 06:51; Admin Dose 1,000 MLS/HR; Start 08/27/18 at 06:30 MARIAA KINSEY Aug 27, 2018 09:56
[2018-08-27] MEDS ORDERED: VANCOMYCIN IV PER PHARMACY XX SCH (10:00)
--- NOTE | 2018-08-27 11:08 | PN ---
Date/Time of Note Date/Time of Note DATE: 08/27/18 TIME: 10:59 Objective Vitals Vital Signs Date Temp Pulse Resp B/P (MAP) Pulse Ox O2 O2 Flow FiO2 Time Delivery Rate 08/27/18 112 28 100 60 09:16 08/27/18 78/50 (59) 08:45 08/27/18 98.5 Mechanical 08:00 Ventilator Intake and Output 08/26/18 08/26/18 08/27/18 1515:00 23:00 07:00 IntakeIntake Total 550 ml 481 ml 501 ml OutputOutput Total 235 ml 2410 ml 5 ml BalanceBalance 315 ml -1929 ml 496 ml Results Result Diagram: 08/27/18 0600 08/27/18 0600 Medications Medications Current Medications Norepinephrine 250 ml @ 1.875 mls/ hr TITRATE IV Last administered on 08/27/18at 06:08; Admin Dose 3.75 MLS/HR; Start 08/04/18 at 23:15 Morphine Sulfate (morphine) 1 mg Q1H PRN IV PAIN Last administered on 08/26/18at 22:51; Admin Dose 1 MG; Start 08/04/18 at 23:30 Atorvastatin Calcium (Lipitor) 80 mg DAILY@21 PO Last administered on 08/26/18 21:16; Admin Dose 80 MG; Start 08/05/18 at 21:00 Nitroglycerin/ Dextrose 250 ml @ 1.5 mls/hr TITRATE IV Last administered on 08/05/18 14:22; Admin Dose 72 MLS/HR; Start 08/05/18 at 01:00 Miscellaneous Information 1 ea NOTE XX ; Start 08/05/18 at 09:00 Acetaminophen (Tylenol Supp) 650 mg Q4H PRN [place] TEMP > 37C Last administered on 08/09/18 04:37; Admin Dose 650 MG; Start 08/05/18 at 11:00 Acetaminophen (Tylenol Liquid) 650 mg Q4H PRN PO TEMP > 37C Last administered on 08/22/18at 20:04; Admin Dose 650 MG; Start 08/05/18 at 11:00 Meperidine HCl (Demerol) 25 mg Q4H PRN IV POST OPERATIVE SHIVERING Last admini stered on 08/05/18at 16:31; Admin Dose 25 MG; Start 08/05/18 at 11:00 Eye Lubricant (Akwa Oint) 1 applic Q6 BOTH EYES Last administered on 08/27/18 06:37; Admin Dose 1 APPLIC; Start 08/05/18 at 12:00 Eye Lubricant (Artificial Tears Oph) 2 drop Q6 BOTH EYES Last administered on 08/27/18 06:37; Admin Dose 2 DROP; Start 08/05/18 at 12:00 Insulin Human Regular 100 unit/ Sodium Chloride 100 ml @ 0 mls/hr PER PROTOCOL IV ; Start 08/05/18 at 12:00 Miscellaneous Information (* Miscellaneous Pharmacy Order) Treatment of Hypoglycemia: 1.BG 51... Per protocol XX ; Start 08/05/18 at 12:00 Dextrose (D50w Syringe) 25 ml Q15M PRN IV .DECREASED GLUCOSE; Start 08/05/18 at 12:00 Dextrose (D50w Syringe) 50 ml Q15M PRN IV .DECREASED GLUCOSE; Start 08/05/18 at 12:00 Fentanyl 100 ml @ 2.5 mls/hr TITRATE IV Last administered on 08/27/18 06:59; Admin Dose 9 MLS/HR; Start 08/05/18 at 12:00 Meperidine HCl (Demerol) 12.5 mg Q2H PRN IV POST OPERATIVE SHIVERING; Start 08/05/18 at 17:00 Aspirin (Aspirin) 81 mg DAILY NGT Last administered on 08/27/18 08:22; Admin Dose 81 MG; Start 08/06/18 at 09:00 Multivitamins (Multivitamin) 30 ml DAILY NGT Last administered on 08/27/18 08:21; Admin Dose 30 ML; Start 08/09/18 at 09:00 Zinc Sulfate (Zinc Sulfate) 220 mg DAILY NGT Last administered on 08/27/18 08:21; Admin Dose 220 MG; Start 08/09/18 at 09:00 Folic Acid (Folic Acid) 1 mg DAILY NGT Last administered on 08/27/18 08:22; Admin Dose 1 MG; Start 08/09/18 at 09:00 Ascorbic Acid (Vitamin C) 500 mg DAILY NGT Last administered on 08/27/18 08:22; Admin Dose 500 MG; Start 08/09/18 at 09:00 Albuterol (Ventolin Hfa) 4 puff Q6HWA RESP THERAPY INH Last administered on 08/27/18 07:34; Admin Dose 4 PUFF; Start 08/09/18 at 14:00 Ipratropium [place] (Atrovent Hfa) 4 puff Q6H RESP THERAPY INH Last administ ered on 08/27/18 07:34; Admin Dose 4 PUFF; Start 08/09/18 at 14:00 IV Flush (NS 10 ml) 10 ml PRN PRN IV IV PROTOCOL; Start 08/11/18 at 16:30 Heparin Sodium (Porcine) (Heparin (1000 Units/ml)) 3,000 unit PRN PRN CATHETER Dialysis Last administered on 08/26/18 18:02; Admin Dose 3,000 UNIT; Start at 14:30 Labetalol HCl (Labetalol) 10 mg Q4H PRN IV ELEVATED SYSTOLIC BP > 180 Last administered on 08/20/18 16:54; Admin Dose 10 MG; Start 08/14/18 at 19:00 Midazolam HCl 50 ml @ 1 mls/hr TITRATE IV Last administered on 08/20/18 00:16; Admin Dose 5 MLS/HR; Start 08/15/18 at 11:00 Hydralazine HCl (Apresoline) 20 mg Q2 PRN IV ELEVATED SYSTOLIC BP Last administered on 08/22/18 16:18; Admin Dose 20 MG; Start 08/16/18 at 08:00 Carvedilol (Coreg) 12.5 mg Q6H PO Last administered on 08/27/18 00:17; Admin Dose 12.5 MG; Start 08/17/18 at 01:00 Docusate Sodium (Colace Liquid Cup) 100 mg BID GTB Last administered on 08/27/18 08:21; Admin Dose 100 MG; Start 08/18/18 at 09:00 Clopidogrel Bisulfate (plaVIX) 75 mg DAILY NGT Last administered on 08/27/18 08:22; Admin Dose 75 MG; Start 08/18/18 at 13:30 Rifaximin (Xifaxan) 200 mg TID PO Last administered on 08/27/18 08:22; Admin Dose 200 MG; Start 08/19/18 at 13:00 Pantoprazole 80 mg/Sodium Chloride 100 ml @ 10 mls/hr Q10H IV Last admin istered on 08/27/18at 04:13; Admin Dose 10 MLS/HR; Start 08/23/18 at 00:00 Sevelamer Carbonate (Renvela) 2.4 gm WITH MEALS GTB Last administered on 08/27/18at 06:37; Admin Dose 2.4 GM; Start 08/23/18 at 11:30 Ondansetron HCl (Zofran Inj) 4 mg Q4H PRN IV NAUSEA AND/OR VOMITING Last administered on 08/26/18at 18:27; Admin Dose 4 MG; Start 08/23/18 at 14:30 Lactobacillus Acidophilus/ Rhamnosus (Culturelle) 1 cap TID GTB Last administered on 08/27/18at 08:22; Admin Dose 1 CAP; Start 08/24/18 at 13:00 Sodium Chloride 1,000 ml @ 0 mls/hr Q0M PRN IV TO KEEP SBP ABOVE 90; Start 08/26/18 at 11:38 Albumin Human 100 ml @ 100 mls/hr WITH DIALYSIS PRN IV SBP <90 DURING DIALYSIS; Start 08/26/18 at 12:00 Sodium Chloride (NS) -To prime the dialy... DIRECTED FOR HD PRN IV HD; Start 08/26/18 at 12:00 Nitroglycerin (Nitroglycerin 2% Oint) 0.5 inch Q6 PRN TD CHEST PAIN; Start 08/27/18 at 00:30 Lorazepam (Ativan) 1 mg Q4H PRN IV ANXIETY Last administered on 08/27/18at 04:14; Admin Dose 1 MG; Start 08/27/18 at 04:30 Phenylephrine HCl 250 ml @ 75 mls/hr TITRATE IV ; Start 08/27/18 at 06:30 Sodium Chloride 500 ml @ 0 mls/hr Q0M IV Last administered on 08/27/18at 06:51; Admin Dose 1,000 MLS/HR; Start 08/27/18 at 06:30 Vancomycin HCl (Vanco Iv Per Pharmacy) VANCOMYCIN PER PHARMACY PER PROTOCOL XX ; Start 08/27/18 at 10:00 Cefepime HCl 50 ml @ 100 mls/hr Q24H IVPB ; Start 08/27/18 at 10:30 Vancomycin HCl 1.5 gm/Sodium Chloride 250 ml @ 83.333 mls/ hr ONCE ONCE IVPB ; Start 08/27/18 at 12:00; Stop 08/27/18 at 14:59 VTE Prophylaxis Risk score (from Nsg)>0 risk: 11 SCD applied (from Nsg): Yes Lines/Catheters IV Catheter Type: Bajwa in Place: Yes Cont'd bajwa catheter reason: terminal illness/intractable pain Assessment/Plan Hospital Course Subjective Overnight patient became more altered, ABG was done, showing CO2 retention, was assessed by pulmonology where he suspected that the tracheostomy tube was adherent to the side of the trachea, patient was repositioned and began to improve Objective Physical exam General: Patient is laying in bed with tracheostomy Mentation: Patient is arousable but not following command Head: Normocephalic atraumatic Eyes: EOMI, pupils reactive to light Neck: Supple, nontender, midline Respiratory: Coarse to auscultation bilaterally Cardiovascular: regular rate, no obvious murmurs Gastrointestinal: non-tender to palpation, bowel sounds heard. Neurological: Patient withdraws to noxious stimuli, does not follow command Skin: No new skin lesions Assessment/Plan 1. Acute hypoxic respiratory failure - Per Pulm, trach may be sitting on trach wall, doing much better now that patient's neck was repositioned - Patients mentation improved significantly but had a decompensating event overnight, ABG was done showing significant hypercapnia which is likely the issue as above with the tracheostomy tube, continue to monitor closely -Has PEG and trach 2. Acute toxic/metabolic encephalopathy-decompensated yesterday overnight -After a period of patient's mentation improving, overnight patient's mentation decompensated, ABG was done and patient's mentation is likely secondary to hypercapnia, patient still does not follow command however will monitor closely to assess now that the patient is breathing better if patient's mentation improves with improvement of hypercapnia. Patient's tracheostomy tube was only adjusted approximately 30 minutes ago also may be too soon to tell,. - Neurology input appreciated and will reconsult if needed 3. Bilateral CVA - Found on MRI, likely thromboembolic secondary to cardiopulmonary arrest per neurology - Continue on aspirin and Lipitor 4. Anemia, blood loss and renal disease- stable - Hgb remains stable and no need for transfusion at this time -Unsure reason for Protonix drip at this time, however will continue for now and investigate further, may be have started due to drop in hemoglobin a few days ago, will DC once we know more information. 5. Bilateral Pneumonia -Infectious disease on board, antibiotics per infectious disease 6. Septic shock secondary to PNA and bacteremia- resolved - Blood cultures and sputum culture results noted. - ID on board Hypotension -May be due secondary to respiratory events overnight -Back on pressors, titrate off when possible. Rhabdomyolysis -Nephrology on board, dialysis as needed, unsure if rhabdomyolysis is acute. 7. CAD s/p PCI x2 - Cardiology on board and appreciate recommendations. Stressed importance of continuing DAPT given recent stent placements and high risk of restenosis - s/p emergent Cath 08/05 with successful PTCA and stenting of proximal and mid LAD, PTCA of the large first diagonal and thrombectomy of the LAD - Repeat PCI on 08/07 performed with stenting to LCx - plans for stenting of RCA prior to discharge if possible 8. Renal failure on HD - Nephrology on board and appreciate recommendations. Continue HD - secondary to septic shock, ATN vs prerenal vs contrast induced nephropathy - will avoid nephrotoxic agents 9. Diabetes - A1c noted - ISS not needed 10. S/p V-fib cardiac arrest secondary to STEMI - Completed hypothermia protocol 11. Disposition -Continue monitoring in the ICU as patient is back on pressors and worsening mentation which is likely secondary to patient's trach issues, will monitor very closely. >35 minutes of critical care time spent with patient and father at bedside HARPAL PEDROZA Aug 27, 2018 11:08
[2018-08-27] MEDS ORDERED: VANCOMYCIN HCL 1.5 GM in SOD CHLORIDE 0.9% 250 ML IVPB ONE (12:00)
--- NOTE | 2018-08-27 13:12 | RADRPT ---
Vent Rate: 119 bpm RR Interval: 0 msec [place] Interval: 126 msec QRS Duration: 92 msec QT Interval: 306 msec QTC Interval: 430 msec P-R-T [place]: 59 - 41 - [address] & T wave abnormality, consider inferior ischemia ST & T wave abnormality, consider anterolateral ischemia Abnormal ECG Electronically Signed By: Earl Feliciano
[2018-08-27] MEDS: HEPARIN 1000 UNITS/ML 10 ML INJ CATHETER PRN (13:42)
--- NOTE | 2018-08-27 14:10 | CONS ---
Assessment/Plan Assessment/Plan Hospital Course (Demo Recall) No acute changes. Patient is in hemodialysis awake looks comfortable, no fevers overnight. WBC 19.5 H&H 10 and 33.5 platelets 330 neutrophils 82.7 Chest x-ray this morning revealed mildly progressed consolidation at the right lung base Antimicrobials: Vancomycin, cefepime Microbiology: Urine culture on admission grew E. coli and Proteus, blood cultures growing oxacillin sensitive staph aureus endotracheal aspirate also growing oxacillin sensitive staph aureus ear drainage preliminary growing staph aureus, repeat blood cultures 2 days ago negative Indwelling: Trach, PEG, right femoral Devan, right upper extremity PICC line Physical examination: Obese well-developed middle-aged woman who is intubated in no distress. Head atraumatic normocephalic neck is supple chest rise symm etrical breath sounds diminished bases. Heart: S1-S2. Abdomen distended. Bowel sounds hypoactive. Extremities cyanotic Assessment: 1. Sepsis, status post shock 2. Healthcare associated pneumonia 3. S/p Oxacillin sensitive staph aureus bacteremia 2 to #3 4. S/p polymicrobial UTI 5. ST elevation IA, status post stent 6. Status post V. fib arrest 7. Acute renal failure, started on hemodialysis 8. 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 Anemia and thrombocytopenia 10. Acute sinusitis and bilateral mastoiditis 11. Morbid obesity 12. Diarrhea, r/o C dif Plan: Clinically unchanged, stable, restarted on broad-spectrum antibiotics for pneumonia Consultation Date/Type/Reason Admit Date/Time Aug 04, 2018 at 23:10 Initial Consult Date 08/12/18 Type of Consult id Requesting Provider: HARPAL AGGARWAL MD Date/Time of Note DATE: 08/27/18 TIME: 14:09 Exam/Review of Systems Exam Vitals Vital Signs Date Temp Pulse Resp B/P (MAP) Pulse Ox O2 O2 Flow FiO2 Time Delivery Rate 08/27/18 104 13:30 08/27/18 22 99/73 (82) 12:45 08/27/18 100 Trach 12:06 Collar 08/27/18 98.7 12:00 08/27/18 60 11:40 Intake and Output 08/26/18 08/26/18 08/27/18 1515:00 23:00 07:00 IntakeIntake Total 550 ml 481 ml 511 ml OutputOutput Total 235 ml 2410 ml 5 ml BalanceBalance 315 ml -1929 ml 506 ml Results Result Diagram: 08/27/18 0600 08/27/18 0600 Results 24hrs Laboratory Tests Test 08/26/18 22:35 08/27/18 02:35 08/27/18 05:00 08/27/18 05:36 Creatine Kinase 58627 H 51682 H Creatine Kinase 0.3 0.4 Index Creatinine 72.90 H 72.60 H Kinase MB (Mass) Troponin I 0.495 *H 0.720 *H Blood Gas Blood Blood Specimen arterial arterial Source Arterial Blood 08/27/2018 4:00: 08/27/2018 5:40: Date Drawn 00 AM 05 AM Arterial Blood 7.248 *L 7.130 *L pH (Temp corrected ) Arterial Blood 70.2 H 95.5 *H pCO2 (Temp correct) Arterial Blood 88.3 484.4 H pO2 (Temp corrected ) Arterial Blood 30.0 H 31.1 H HCO3 Arterial Blood 1.5 0.1 Base Excess Arterial Blood 95.7 99.4 H Oxygen Saturati on Dajuan Test ACCEPTAB ACCEPTAB Arterial Blood Right Radial Right Radial Gas Puncture Site Arterial 0.3 0.3 Blood Carboxyhe moglobin Arterial Blood 0.2 0.3 Methemoglobin Blood Gas A-a 43.1 H 133.1 H O2 Differential Oxyhemoglobin 95.2 98.8 Percent Blood Gas 37.0 37.0 Temperature Blood Gas 20.0 20.0 Respiration Rate Blood Gas 20 23 Actual Respiration Rat e Blood Gas VENT - AC VENT - PC Modality FiO2 30.0 100.0 Blood Gas Tidal 400.0 Volume Blood Gas Low 5.0 5.0 PEEP Setting Blood Gas NWEST RN N VIRGIE RN Critical Value Read Back Blood Gas FRANCESCO WONG [employer] Notified Whom Blood Gas 08/27/2018 4:30: 08/27/2018 5:50: Notified Time 00 AM 46 AM Blood Gas 0.9 Inspiratory Time Test 08/27/18 06:00 08/27/18 08:00 08/27/18 09:56 08/27/18 10:20 White Blood 19.5 #H Count Red Blood Count 3.46 L Hemoglobin 10.0 L Hematocrit 33.5 L Mean 96.8 Corpuscular Volume Mean 28.9 L Corpuscular Hemoglobin Mean 29.9 L Corpuscular Hemoglobin Conc ent Red Cell 15.9 H Distribution Width Platelet Count 330 # Mean Platelet 13.6 H Volume Immature 4.000 H Granulocytes % Neutrophils % 82.7 H Lymphocytes % 6.2 L Monocytes % 4.5 Eosinophils % 1.7 Basophils % 0.9 Nucleated Red 0.0 Blood Cells % Immature 0.780 H Granulocytes # Neutrophils # 16.1 H Lymphocytes # 1.2 Monocytes # 0.9 Eosinophils # 0.3 Basophils # 0.2 H Nucleated Red 0.0 Blood Cells # Sodium Level 138 Potassium Level 5.4 H Chloride Level 101 Carbon Dioxide 27 Level Anion Gap 10 Blood Urea 44 H Nitrogen Creatinine 2.58 H Est Glomerular 21 L Filtrat Rate mL/min Glucose Level 153 Calcium Level 8.6 Creatine Kinase 31867 H 66305 H Creatine Kinase 0.4 0.4 Index Creatinine 75.30 H 67.40 H Kinase MB (Mass) Troponin I 1.130 *H 1.280 *H Blood Gas Blood Specimen arterial Source Arterial Blood 08/27/2018 8:05: Date Drawn 43 AM Arterial Blood 7.163 *L pH (Temp corrected ) Arterial Blood 79.5 H pCO2 (Temp correct) Arterial Blood 481.8 H pO2 (Temp corrected ) Arterial Blood 27.9 H HCO3 Arterial Blood -2.0 Base Excess Arterial Blood 99.5 H Oxygen Saturati on Dajuan Test ACCEPTAB Arterial Blood Right Radial Gas Puncture Site Arterial 0.3 Blood Carboxyhe moglobin Arterial Blood 0.2 Methemoglobin Blood Gas A-a 151.7 H O2 Differential Oxyhemoglobin 99.0 Percent Blood Gas 37.0 Temperature Blood Gas 28.0 Respiration Rate Blood Gas 28 Actual Respiration Rat e Blood Gas VENT - PC Modality FiO2 100.0 Blood Gas 1.0 Inspiratory Time Blood Gas 48.0 Inspiratory Pressure Blood Gas C. Critical Value FELIPE MEDINA Read Back Blood Gas Notified Whom Blood Gas 08/27/2018 8:15: Notified Time 45 AM Bedside Glucose 137 Test 08/27/18 11:15 Blood Gas Blood arterial Specimen Source Arterial Blood 08/27/2018 11:25: Date Drawn 00 AM Arterial Blood 7.384 pH (Temp corrected ) Arterial Blood 40.1 pCO2 (Temp correct) Arterial Blood 206.5 H pO2 (Temp corrected ) Arterial Blood 23.4 HCO3 Arterial Blood -1.5 Base Excess Arterial Blood 98.7 H Oxygen Saturati on Dajuan Test ACCEPTAB Arterial Blood LB Gas Puncture Site Arterial 0.3 Blood Carboxyhe moglobin Arterial Blood 0.5 Methemoglobin Blood Gas A-a 177.2 H O2 Differential Oxyhemoglobin 97.9 Percent Blood Gas 37.0 Temperature Blood Gas 22.0 Respiration Rate Blood Gas 22 Actual Respiration Rat e Blood Gas VENT - AC Modality FiO2 60.0 Blood Gas Tidal 500.0 Volume Blood Gas Notified Whom Blood Gas 08/27/2018 11:46: Notified Time 12 AM Medications Medication Current Medications Norepinephrine 250 ml @ 1.875 mls/ hr TITRATE IV Last administered on 08/27/18 06:08; Admin Dose 3.75 MLS/HR; Start 08/04/18 at 23:15 Morphine Sulfate (morphine) 1 mg Q1H PRN IV PAIN Last administered on 08/26/18 22:51; Admin Dose 1 MG; Start 08/04/18 at 23:30 Atorvastatin Calcium (Lipitor) 80 mg DAILY@21 PO Last administered on 08/26/18 21:16; Admin Dose 80 MG; Start 08/05/18 at 21:00 Nitroglycerin/ Dextrose 250 ml @ 1.5 mls/hr TITRATE IV Last administered on 08/05/18 14:22; Admin Dose 72 MLS/HR; Start 08/05/18 at 01:00 Miscellaneous Information 1 ea NOTE XX ; Start 08/05/18 at 09:00 Acetaminophen (Tylenol Supp) 650 mg Q4H PRN CA TEMP > 37C Last administered on 08/09/18 04:37; Admin Dose 650 MG; Start 08/05/18 at 11:00 Acetaminophen (Tylenol Liquid) 650 mg Q4H PRN PO TEMP > 37C Last administered on 08/22/18 20:04; Admin Dose 650 MG; Start 08/05/18 at 11:00 Meperidine HCl (Demerol) 25 mg Q4H PRN IV POST OPERATIVE SHIVERING Last administered on 08/05/18 16:31; Admin Dose 25 MG; Start 08/05/18 at 11:00 Eye Lubricant (Akwa Oint) 1 applic Q6 BOTH EYES Last administered on 08/27/18 11:41; Admin Dose 1 APPLIC; Start 08/05/18 at 12:00 Eye Lubricant (Artificial Tears Oph) 2 drop Q6 BOTH EYES Last administered on 08/27/18 11:40; Admin Dose 2 DROP; Start 08/05/18 at 12:00 Insulin Human Regular 100 unit/ Sodium Chloride 100 ml @ 0 mls/hr PER PROTOCOL IV ; Start 08/05/18 at 12:00 Miscellaneous Information (* Miscellaneous Pharmacy Order) Treatment of Hypogly cemia: 1.BG 51... Per protocol XX ; Start 08/05/18 at 12:00 Dextrose (D50w Syringe) 25 ml Q15M PRN IV .DECREASED GLUCOSE; Start 08/05/18 at 12:00 Dextrose (D50w Syringe) 50 ml Q15M PRN IV .DECREASED GLUCOSE; Start 08/05/18 at 12:00 Fentanyl 100 ml @ 2.5 mls/hr TITRATE IV Last administered on 08/27/18 06:59; Admin Dose 9 MLS/HR; Start 08/05/18 at 12:00 Meperidine HCl (Demerol) 12.5 mg Q2H PRN IV POST OPERATIVE SHIVERING; Start 08/05/18 at 17:00 Aspirin (Aspirin) 81 mg DAILY NGT Last administered on 08/27/18 08:22; Admin Dose 81 MG; Start 08/06/18 at 09:00 Multivitamins (Multivitamin) 30 ml DAILY NGT Last administered on 08/27/18 08:21; Admin Dose 30 ML; Start 08/09/18 at 09:00 Zinc Sulfate (Zinc Sulfate) 220 mg DAILY NGT Last administered on 08/27/18 08:21; Admin Dose 220 MG; Start 08/09/18 at 09:00 Folic Acid (Folic Acid) 1 mg DAILY NGT Last administered on 08/27/18 08:22; Admin Dose 1 MG; Start 08/09/18 at 09:00 Ascorbic Acid (Vitamin C) 500 mg DAILY NGT Last administered on 08/27/18 08:22; Admin Dose 500 MG; Start 08/09/18 at 09:00 Albuterol (Ventolin Hfa) 4 puff Q6HWA RESP THERAPY INH Last administered on 08/27/18 07:34; Admin Dose 4 PUFF; Start 08/09/18 at 14:00 Ipratropium [place] (Atrovent Hfa) 4 puff Q6H RESP THERAPY INH Last administered on 08/27/18 07:34; Admin Dose 4 PUFF; Start 08/09/18 at 14:00 IV Flush (NS 10 ml) 10 ml PRN PRN IV IV PROTOCOL; Start 08/11/18 at 16:30 Heparin Sodium (Porcine) (Heparin (1000 Units/ml)) 3,000 unit PRN PRN CATHETER Dialysis Last administered on 08/27/18 13:42; Admin Dose 3,000 UNIT; Start 08/12/18 at 14:30 Labetalol HCl (Labetalol) 10 mg Q4H PRN IV ELEVATED SYSTOLIC BP > 180 Last administered on 08/20/18 16:54; Admin Dose 10 MG; Start 08/14/18 at 19:00 Midazolam HCl 50 ml @ 1 mls/hr TITRATE IV Last administered on 08/20/18 00:16; Admin Dose 5 MLS/HR; Start 08/15/18 at 11:00 Hydralazine HCl (Apresoline) 20 mg Q2 PRN IV ELEVATED SYSTOLIC BP Last administered on 08/22/18 16:18; Admin Dose 20 MG; Start 08/16/18 at 08:00 Carvedilol (Coreg) 12.5 mg Q6H PO Last administered on 08/27/18 00:17; Admin Dose 12.5 MG; Start 08/17/18 at 01:00 Docusate Sodium (Colace Liquid Cup) 100 mg BID GTB Last administered on 08/27/18 08:21; Admin Dose 100 MG; Start 08/18/18 at 09:00 Clopidogrel Bisulfate (plaVIX) 75 mg DAILY NGT Last administered on 08/27/18 08:22; Admin Dose 75 MG; Start 08/18/18 at 13:30 Rifaximin (Xifaxan) 200 mg TID PO Last administered on 08/27/18 14:05; Admin Dose 200 MG; Start 08/19/18 at 13:00 Pantoprazole 80 mg/Sodium Chloride 100 ml @ 10 mls/hr Q10H IV Last administered on 08/27/18 04:13; Admin Dose 10 MLS/HR; Start 08/23/18 at 00:00 Sevelamer Carbonate (Renvela) 2.4 gm WITH MEALS GTB Last administered on 08/27/18at 11:40; Admin Dose 2.4 GM; Start 08/23/18 at 11:30 Ondansetron HCl (Zofran Inj) 4 mg Q4H PRN IV NAUSEA AND/OR VOMITING Last administered on 08/26/18at 18:27; Admin Dose 4 MG; Start 08/23/18 at 14:30 Lactobacillus Acidophilus/ Rhamnosus (Culturelle) 1 cap TID GTB Last admi nistered on 08/27/18at 14:05; Admin Dose 1 CAP; Start 08/24/18 at 13:00 Sodium Chloride 1,000 ml @ 0 mls/hr Q0M PRN IV TO KEEP SBP ABOVE 90; Start 08/26/18 at 11:38 Albumin Human 100 ml @ 100 mls/hr WITH DIALYSIS PRN IV SBP <90 DURING DIALYSIS; Start 08/26/18 at 12:00 Sodium Chloride (NS) -To prime the dialy... DIRECTED FOR HD PRN IV HD; Start 08/26/18 at 12:00 Nitroglycerin (Nitroglycerin 2% Oint) 0.5 inch Q6 PRN TD CHEST PAIN; Start 08/27/18 at 00:30 Lorazepam (Ativan) 1 mg Q4H PRN IV ANXIETY Last administered on 08/27/18at 04:14; Admin Dose 1 MG; Start 08/27/18 at 04:30 Phenylephrine HCl 250 ml @ 75 mls/hr TITRATE IV ; Start 08/27/18 at 06:30 Sodium Chloride 500 ml @ 0 mls/hr Q0M IV Last administered on 08/27/18at 06:51; Admin Dose 1,000 MLS/HR; Start 08/27/18 at 06:30 Vancomycin HCl (Vanco Iv Per Pharmacy) VANCOMYCIN PER PHARMACY PER PROTOCOL XX ; Start 08/27/18 at 10:00 Cefepime HCl 50 ml @ 100 mls/hr Q24H IVPB ; Start 08/27/18 at 10:30 Vancomycin HCl 1.5 gm/Sodium Chloride 250 ml @ 83.333 mls/ hr ONCE ONCE IVPB Last administered on 08/27/18at 11:40; Admin Dose 83.333 MLS/HR; Start 08/27/18 at 12:00; Stop 08/27/18 at 14:59 WIN LUCIANO NP Aug 27, 2018 14:10
--- NOTE | 2018-08-27 14:43 | CONS ---
Consult Date/Type/Reason Admit Date/Time Aug 04, 2018 at 23:10 Initial Consult Date 08/05/18 Type of Consultation: Pulm/CCM Requesting Provider: AHRPAL AGGARWAL MD Date/Time of Note DATE: 08/27/18 TIME: 14:40 Subjective Interventional cardiology follow-up progress note/critical care Subjective: Events noted discussed with the staff and physicians Patient remains on the vent s/p trach No V tachycardia or V fibrillation. BP is stable pt with less bleeding at PEG trach sites. she denies any cp to me now but has reported chest pain last night with elevated trop. pt had issues with trach and was intensive and altered this morning which is slowly improving after fixing the tracheostomy events noted s/p PCI 100% occluded LAD 08/04 S/P PCI LCX/ OM s/p trach 08/22/18 Objective: General: Obese female no acute distress HEENT: NC/AT. pupils are equal. round. NECK: . no stridor. s/p trach CV: RRR. systolic murmur; no gallop or rubs. PULM: no wheezing + diffuse rhonchi. GI: Obese SOFT, NT, ND, no rebound or guarding s/pPEG Extremity: +B/L LE edema. no clubbing. neuro: awake and follows commands O Psych: Calm now rectal: deferred EKG August 06, 2018 was personally within normal sinus rhythm. T wave inversions anterior and inferior leads ECG 08/07: NSR ST T abn c/w ant/lat ischemia CXR 08/14: Nonspecific patchy bilateral pulmonary opacity, mildly improved on the right. No pneumothorax. Endotracheal tube, nasogastric tube, and right-sided PICC line remain in place. Stable mild cardiomegaly. The osseous structures are remark able for degenerative enthesopathy of the spine. Chest x-ray done August 06 shows:No evidence for active cardiopulmonary disease. CXR 08/19: Diffuse bilateral reticular nodular infiltrates unchanged. Question bronchopneumonia versus failure. ECHO personally reviewed Normal left ventricular cavity size. Normal left ventricular wall thickness. Ejection fraction is visually estimated at 55-65 %. Normal appearance of the mitral valve. Mitral valve is not well visualized. No mitral valve regurgitation is seen. Aortic valve not well visualized. No aortic regurgitation. Normal appearance of the tricuspid valve. Unable to obtain RVSP due to minimal presence of tricuspid regurgitation. No evidence of tricuspid regurgitation. Normal pericardium with no significant pericardial effusion. suboptimal study. Objective Vitals Vital Signs Date Temp Pulse Resp B/P (MAP) Pulse Ox O2 O2 Flow FiO2 Time Delivery Rate 08/27/18 107 22 130/97 100 Mechanical 14:00 (108) Ventilator 08/27/18 98.7 12:00 08/27/18 60 11:40 Intake and Output 08/26/18 08/26/18 08/27/18 1515:00 23:00 07:00 IntakeIntake Total 550 ml 481 ml 511 ml OutputOutput Total 235 ml 2410 ml 5 ml BalanceBalance 315 ml -1929 ml 506 ml Results/Medications Result Diagram: 08/27/18 0600 08/27/18 0600 Results 24 hrs Laboratory Tests Test 08/26/18 22:35 08/27/18 02:35 08/27/18 05:00 08/27/18 05:36 Creatine Kinase 45134 H 54819 H Creatine Kinase 0.3 0.4 Index Creatinine 72.90 H 72.60 H Kinase MB (Mass) Troponin I 0.495 *H 0.720 *H Blood Gas Blood Blood Specimen arterial arterial Source Arterial Blood 08/27/2018 4:00: 08/27/2018 5:40: Date Drawn 00 AM 05 AM Arterial Blood 7.248 *L 7.130 *L pH (Temp corrected ) Arterial Blood 70.2 H 95.5 *H pCO2 (Temp correct) Arterial Blood 88.3 484.4 H pO2 (Temp corrected ) Arterial Blood 30.0 H 31.1 H HCO3 Arterial Blood 1.5 0.1 Base Excess Arterial Blood 95.7 99.4 H Oxygen Saturati on Dajuan Test ACCEPTAB ACCEPTAB Arterial Blood Right Radial Right Radial Gas Puncture Site Arterial 0.3 0.3 Blood Carboxyhe moglobin Arterial Blood 0.2 0.3 Methemoglobin Blood Gas A-a 43.1 H 133.1 H O2 Differential Oxyhemoglobin 95.2 98.8 Percent Blood Gas 37.0 37.0 Temperature Blood Gas 20.0 20.0 Respiration Rate Blood Gas 20 23 Actual Respiration Rat e Blood Gas VENT - AC VENT - PC Modality FiO2 30.0 100.0 Blood Gas Tidal 400.0 Volume Blood Gas Low 5.0 5.0 PEEP Setting Blood Gas NWEST RN N VIRGIE RN Critical Value Read Back Blood Gas [employer] Notified Whom Blood Gas 08/27/2018 4:30: 08/27/2018 5:50: Notified Time 00 AM 46 AM Blood Gas 0.9 Inspiratory Time Test 08/27/18 06:00 08/27/18 08:00 08/27/18 09:56 08/27/18 10:20 White Blood 19.5 #H Count Red Blood Count 3.46 L Hemoglobin 10.0 L Hematocrit 33.5 L Mean 96.8 Corpuscular Volume Mean 28.9 L Corpuscular Hemoglobin Mean 29.9 L Corpuscular Hemoglobin Conc ent Red Cell 15.9 H Distribution Width Platelet Count 330 # Mean Platelet 13.6 H Volume Immature 4.000 H Granulocytes % Neutrophils % 82.7 H Lymphocytes % 6.2 L Monocytes % 4.5 Eosinophils % 1.7 Basophils % 0.9 Nucleated Red 0.0 Blood Cells % Immature 0.780 H Granulocytes # Neutrophils # 16.1 H Lymphocytes # 1.2 Monocytes # 0.9 Eosinophils # 0.3 Basophils # 0.2 H Nucleated Red 0.0 Blood Cells # Sodium Level 138 Potassium Level 5.4 H Chloride Level 101 Carbon Dioxide 27 Level Anion Gap 10 Blood Urea 44 H Nitrogen Creatinine 2.58 H Est Glomerular 21 L Filtrat Rate mL/min Glucose Level 153 Calcium Level 8.6 Creatine Kinase 96075 H 12157 H Creatine Kinase 0.4 0.4 Index Creatinine 75.30 H 67.40 H Kinase MB (Mass) Troponin I 1.130 *H 1.280 *H Blood Gas Blood Specimen arterial Source Arterial Blood 08/27/2018 8:05: Date Drawn 43 AM Arterial Blood 7.163 *L pH (Temp corrected ) Arterial Blood 79.5 H pCO2 (Temp correct) Arterial Blood 481.8 H pO2 (Temp corrected ) Arterial Blood 27.9 H HCO3 Arterial Blood -2.0 Base Excess Arterial Blood 99.5 H Oxygen Saturati on Dajuan Test ACCEPTAB Arterial Blood Right Radial Gas Puncture Site Arterial 0.3 Blood Carboxyhe moglobin Arterial Blood 0.2 Methemoglobin Blood Gas A-a 151.7 H O2 Differential Oxyhemoglobin 99.0 Percent Blood Gas 37.0 Temperature Blood Gas 28.0 Respiration Rate Blood Gas 28 Actual Respiration Rat e Blood Gas VENT - PC Modality FiO2 100.0 Blood Gas 1.0 Inspiratory Time Blood Gas 48.0 Inspiratory Pressure Blood Gas C. Critical Value FELIPE MEDINA Read Back Blood Gas Notified Whom Blood Gas 08/27/2018 8:15: Notified Time 45 AM Bedside Glucose 137 Test 08/27/18 11:15 Blood Gas Blood arterial Specimen Source Arterial Blood 08/27/2018 11:25: Date Drawn 00 AM Arterial Blood 7.384 pH (Temp corrected ) Arterial Blood 40.1 pCO2 (Temp correct) Arterial Blood 206.5 H pO2 (Temp corrected ) Arterial Blood 23.4 HCO3 Arterial Blood -1.5 Base Excess Arterial Blood 98.7 H Oxygen Saturati on Dajuan Test ACCEPTAB Arterial Blood LB Gas Puncture Site Arterial 0.3 Blood Carboxyhe moglobin Arterial Blood 0.5 Methemoglobin Blood Gas A-a 177.2 H O2 Differential Oxyhemoglobin 97.9 Percent Blood Gas 37.0 Temperature Blood Gas 22.0 Respiration Rate Blood Gas 22 Actual Respiration Rat e Blood Gas VENT - AC Modality FiO2 60.0 Blood Gas Tidal 500.0 Volume Blood Gas Notified Whom Blood Gas 08/27/2018 11:46: Notified Time 12 AM Medications Current Medications Norepinephrine 250 ml @ 1.875 mls/ hr TITRATE IV Last administered on 08/27/18at 06:08; Admin Dose 3.75 MLS/HR; Start 08/04/18 at 23:15 Morphine Sulfate (morphine) 1 mg Q1H PRN IV PAIN Last administered on 08/26/18at 22:51; Admin Dose 1 MG; Start 08/04/18 at 23:30 Atorvastatin Calcium (Lipitor) 80 mg DAILY@21 PO Last administered on 08/26/18at 21:16; Admin Dose 80 MG; Start 08/05/18 at 21:00 Nitroglycerin/ Dextrose 250 ml @ 1.5 mls/hr TITRATE IV Last administered on 08/05/18at 14:22; Admin Dose 72 MLS/HR; Start 08/05/18 at 01:00 Miscellaneous Information 1 ea NOTE XX ; Start 08/05/18 at 09:00 Acetaminophen (Tylenol Supp) 650 mg Q4H PRN TX TEMP > 37C Last administered on 08/09/18at 04:37; Admin Dose 650 MG; Start 08/05/18 at 11:00 Acetaminophen (Tylenol Liquid) 650 mg Q4H PRN PO TEMP > 37C Last administered on 08/22/18 20:04; Admin Dose 650 MG; Start 08/05/18 at 11:00 Meperidine HCl (Demerol) 25 mg Q4H PRN IV POST OPERATIVE SHIVERING Last administered on 08/05/18 16:31; Admin Dose 25 MG; Start 08/05/18 at 11:00 Eye Lubricant (Akwa Oint) 1 applic Q6 BOTH EYES Last administered on 08/27/18 11:41; Admin Dose 1 APPLIC; Start 08/05/18 at 12:00 Eye Lubricant (Artificial Tears Oph) 2 drop Q6 BOTH EYES Last administered on 08/27/18 11:40; Admin Dose 2 DROP; Start 08/05/18 at 12:00 Insulin Human Regular 100 unit/ Sodium Chloride 100 ml @ 0 mls/hr PER PROTOCOL IV ; Start 08/05/18 at 12:00 Miscellaneous Information (* Miscellaneous Pharmacy Order) Treatment of Hypoglycemia: 1.BG 51... Per protocol XX ; Start 08/05/18 at 12:00 Dextrose (D50w Syringe) 25 ml Q15M PRN IV .DECREASED GLUCOSE; Start 08/05/18 at 12:00 Dextrose (D50w Syringe) 50 ml Q15M PRN IV .DECREASED GLUCOSE; Start 08/05/18 at 12:00 Fentanyl 100 ml @ 2.5 mls/hr TITRATE IV Last administered on 08/27/18 06:59; Admin Dose 9 MLS/HR; Start 08/05/18 at 12:00 Meperidine HCl (Demerol) 12.5 mg Q2H PRN IV POST OPERATIVE SHIVERING; Start 08/05/18 at 17:00 Aspirin (Aspirin) 81 mg DAILY NGT Last administered on 08/27/18 08:22; Admin Dose 81 MG; Start 08/06/18 at 09:00 Multivitamins (Multivitamin) 30 ml DAILY NGT Last administered on 08/27/18 08:21; Admin Dose 30 ML; Start 08/09/18 at 09:00 Zinc Sulfate (Zinc Sulfate) 220 mg DAILY NGT Last administered on 08/27/18 08:21; Admin Dose 220 MG; Start 08/09/18 at 09:00 Folic Acid (Folic Acid) 1 mg DAILY NGT Last administered on 08/27/18 08:22; Admin Dose 1 MG; Start 08/09/18 at 09:00 Ascorbic Acid (Vitamin C) 500 mg DAILY NGT Last administered on 08/27/18 08:22; Admin Dose 500 MG; Start 08/09/18 at 09:00 Albuterol (Ventolin Hfa) 4 puff Q6HWA RESP THERAPY INH Last administered on 08/27/18 07:34; Admin Dose 4 PUFF; Start 08/09/18 at 14:00 Ipratropium [place] (Atrovent Hfa) 4 puff Q6H RESP THERAPY INH Last administered on 08/27/18 07:34; Admin Dose 4 PUFF; Start 08/09/18 at 14:00 IV Flush (NS 10 ml) 10 ml PRN PRN IV IV PROTOCOL; Start 08/11/18 at 16:30 Heparin Sodium (Porcine) (Heparin (1000 Units/ml)) 3,000 unit PRN PRN CATHETER Dialysis Last administered on 08/27/18 13:42; Admin Dose 3,000 UNIT; Start 08/12/18 at 14:30 Labetalol HCl (Labetalol) 10 mg Q4H PRN IV ELEVATED SYSTOLIC BP > 180 Last administered on 08/20/18 16:54; Admin Dose 10 MG; Start 08/14/18 at 19:00 Midazolam HCl 50 ml @ 1 mls/hr TITRATE IV Last administered on 08/20/18 00:16; Admin Dose 5 MLS/HR; Start 08/15/18 at 11:00 Hydralazine HCl (Apresoline) 20 mg Q2 PRN IV ELEVATED SYSTOLIC BP Last administered on 08/22/18 16:18; Admin Dose 20 MG; Start 08/16/18 at 08:00 Carvedilol (Coreg) 12.5 mg Q6H PO Last administered on 08/27/18 00:17; Admin Dose 12.5 MG; Start 08/17/18 at 01:00 Docusate Sodium (Colace Liquid Cup) 100 mg BID GTB Last administered on 08/27/18 08:21; Admin Dose 100 MG; Start 08/18/18 at 09:00 Clopidogrel Bisulfate (plaVIX) 75 mg DAILY NGT Last administered on 08/27/18 08:22; Admin Dose 75 MG; Start 08/18/18 at 13:30 Rifaximin (Xifaxan) 200 mg TID PO Last administered on 08/27/18 14:05; Admin Dose 200 MG; Start 08/19/18 at 13:00 Pantoprazole 80 mg/Sodium Chloride 100 ml @ 10 mls/hr Q10H IV Last administered on 08/27/18 04:13; Admin Dose 10 MLS/HR; Start 08/23/18 at 00:00 Sevelamer Carbonate (Renvela) 2.4 gm WITH MEALS GTB Last administered on 11:40; Admin Dose 2.4 GM; Start 08/23/18 at 11:30 Ondansetron HCl (Zofran Inj) 4 mg Q4H PRN IV NAUSEA AND/OR VOMITING Last administered on 08/26/18 18:27; Admin Dose 4 MG; Start 08/23/18 at 14:30 Lactobacillus Acidophilus/ Rhamnosus (Culturelle) 1 cap TID GTB Last administered on 08/27/18 14:05; Admin Dose 1 CAP; Start 08/24/18 at 13:00 Sodium Chloride 1,000 ml @ 0 mls/hr Q0M PRN IV TO KEEP SBP ABOVE 90; Start 08/26/18 at 11:38 Albumin Human 100 ml @ 100 mls/hr WITH DIALYSIS PRN IV SBP <90 DURING DIALYSIS; Start 08/26/18 at 12:00 Sodium Chloride (NS) -To prime the dialy... DIRECTED FOR HD PRN IV HD; Start 08/26/18 at 12:00 Nitroglycerin (Nitroglycerin 2% Oint) 0.5 inch Q6 PRN TD CHEST PAIN; Start 08/27/18 at 00:30 Lorazepam (Ativan) 1 mg Q4H PRN IV ANXIETY Last administered on 08/27/18 04:14; Admin Dose 1 MG; Start 08/27/18 at 04:30 Phenylephrine HCl 250 ml @ 75 mls/hr TITRATE IV ; Start 08/27/18 at 06:30 Sodium Chloride 500 ml @ 0 mls/hr Q0M IV Last administered on 08/27/18at 06:51; Admin Dose 1,000 MLS/HR; Start 08/27/18 at 06:30 Vancomycin HCl (Vanco Iv Per Pharmacy) VANCOMYCIN PER PHARMACY PER PROTOCOL XX ; Start 08/27/18 at 10:00 Cefepime HCl 50 ml @ 100 mls/hr Q24H IVPB ; Start 08/27/18 at 10:30 Vancomycin HCl 1.5 gm/Sodium Chloride 250 ml @ 83.333 mls/ hr ONCE ONCE IVPB Last administered on 08/27/18at 11:40; Admin Dose 83.333 MLS/HR; Start 08/27/18 at 12:00; Stop 08/27/18 at 14:59 Assessment/Plan Hospital Course (Demo Recall) 1. s/p V. fib cardiac arrest 2. Acute myocardial infarction 3. Status post emergent PCI of the 100% occluded LAD as well as PTCA of the diagonal and PCI LCX/ OM 4. Diabetes 5. Respiratory failure status post intubation on the vent 6. Hypertension 7. Renal failure : acute on chronic 8. Likely history of congestive heart failure 9. Dyslipidemia 10. Encephalopathy: Clear anoxic brain injury on hypothermia protocol 11. Morbid obesity 12. Anemia 13. elevated LFT 14. fever, bacteremia pneumonia 15. Malnutrition, anasarca . 16. septic shock and bacteremia 17. oropharyngeal bleeding 18. CVA Recommendations: Continue with aspirin plavix Antibiotic management as per ID recommendation HD as per renal Vent support respiratory care as per internal medicine and pulmonary consultants. s/p Trach now cont Coreg as tolerated/needed Monitor renal function. f/u renal consult rec regarding hemodialysis PPI . 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 WILL consider PCI RCA at a later time if it is felt by renal that renal function is not expected to recover and when the bleeding is stopped. for now will monitor only CODE STATUS was DNR, but now back to full code More than 35 minutes of critical care time was for management treatment is critically patient excluding any procedures Thank you for his referral. We will continue to follow along with you as needed over the weekend. LOIS JOHNSON MD [facility] LOIS JOHNSON MD Aug 27, 2018 14:43
[2018-08-27] MEDS: CEFEPIME 1GM/50 ML (PMX) 50 ML IVPB SCH (15:17)
[2018-08-27] MEDS: ACETAMINOPHEN 650MG/20.3ML CUP PO PRN (19:04)
[2018-08-27] MEDS: ATORVASTATIN 80 MG TAB PO SCH (22:10)
[2018-08-28] VITALS (36 sets, daily range): BP systolic 113–160; BP diastolic 69–100; PULSE 95–135; RESP 16–28
[2018-08-28] MEDS: ARTIFICIAL TEARS 15 ML OPH BOTH EYES SCH (01:12)
[2018-08-28] MEDS: ACETAMINOPHEN 650MG/20.3ML CUP PO PRN (01:13)
[2018-08-28] MEDS: IPRATROPIUM (HFA) 12.9 GM INHALER INH SCH ×4 (02:49→19:27)
[2018-08-28] MEDS: FENTAnyl (DRIP) 1000 mcg/100mL 100 ML IV SCH (05:04)
[2018-08-28] MEDS: PANTOPRAZOLE 40 MG INJ IV SCH (05:06)
--- NOTE | 2018-08-28 07:59 | CONS ---
Assessment/Plan Assessment/Plan Assessment/Plan (Daily) Follow-up palliative care note and supportive note for family members. I have seen and spoken the patient's father numerous times outside of the intensive care unit. They are in attendance literally every day. Patient is status post acute [place] with PTCA status post CVA with encephalopathy and within the last couple of days developed respiratory acidosis with hypoxic respiratory failure, leukocytosis and chest x-ray showing bilateral pneumonia. Unfortunately patient is still on Levophed 10 mics per minute. In reviewing pulmonary medicine's recommendations prognosis, guarded. Consultation Date/Type/Reason Admit Date/Time Aug 04, 2018 at 23:10 Initial Consult Date 08/15/18 Requesting Provider: HARPAL AGGARWAL MD Date/Time of Note DATE: 08/28/18 TIME: 07:58 Exam/Review of Systems Exam Vitals Vital Signs Date Temp Pulse Resp B/P (MAP) Pulse Ox O2 O2 Flow FiO2 Time Delivery Rate 08/28/18 100 22 113/69 Mechanical 06:00 (84) Ventilator 08/28/18 100 60 05:45 08/28/18 99.6 04:00 Intake and Output 08/27/18 08/27/18 08/28/18 1515:00 23:00 07:00 IntakeIntake Total 282 ml 443 ml 313 ml OutputOutput Total 2600 ml 100 ml 650 ml BalanceBalance -2318 ml 343 ml -337 ml Results Result Diagram: 08/28/18 0430 08/28/18 0430 Results 24hrs Laboratory Tests Test 08/27/18 08:00 08/27/18 09:56 08/27/18 10:20 08/27/18 11:15 Blood Gas Blood arterial Blood arterial Specimen Source Arterial Blood 08/27/2018 8:05:4 08/27/2018 11:25: Date Drawn 3 AM 00 AM Arterial Blood 7.163 *L 7.384 pH (Temp corrected ) Arterial Blood 79.5 H 40.1 pCO2 (Temp correct) Arterial Blood 481.8 H 206.5 H pO2 (Temp corrected ) Arterial Blood 27.9 H 23.4 HCO3 Arterial Blood -2.0 -1.5 Base Excess Arterial Blood 99.5 H 98.7 H Oxygen Saturati on Dajuan Test ACCEPTAB ACCEPTAB Arterial Blood Right Radial LB Gas Puncture Site Arterial 0.3 0.3 Blood Carboxyhe moglobin Arterial Blood 0.2 0.5 Methemoglobin Blood Gas A-a 151.7 H 177.2 H O2 Differential Oxyhemoglobin 99.0 97.9 Percent Blood Gas 37.0 37.0 Temperature Blood Gas 28.0 22.0 Respiration Rate Blood Gas 28 22 Actual Respiration Rat e Blood Gas VENT - PC VENT - AC Modality FiO2 100.0 60.0 Blood Gas 1.0 Inspiratory Time Blood Gas 48.0 Inspiratory Pressure Blood Gas Shar WANG RN Critical Value Read Back Blood Gas [facility] Notified Whom Blood Gas 08/27/2018 8:15:4 08/27/2018 11:46: Notified Time 5 AM 12 AM Creatine Kinase 08668 H Creatine Kinase 0.4 Index Creatinine 67.40 H Kinase MB (Mass) Troponin I 1.280 *H Bedside Glucose 137 Blood Gas Tidal 500.0 Volume Test 08/28/18 01:42 08/28/18 04:30 08/28/18 07:00 Blood Gas Blood arterial Blood arterial Specimen Source Arterial Blood 08/28/2018 1:54:4 08/28/2018 7:18:2 Date Drawn 0 AM 1 AM Arterial Blood 7.528 H 7.479 H pH (Temp corrected ) Arterial Blood 31.8 L 37.3 pCO2 (Temp correct) Arterial Blood 165.0 H 220.8 H pO2 (Temp corrected ) Arterial Blood 25.9 27.1 H HCO3 Arterial Blood 3.4 H 3.4 H Base Excess Arterial Blood 98.9 H 99.0 H Oxygen Saturati on Dajuan Test ACCEPTAB ACCEPTAB Arterial Blood Right Radial Left Radial Gas Puncture Site Arterial 0.2 0.2 Blood Carboxyhe moglobin Arterial Blood 0.3 0.2 Methemoglobin Blood Gas A-a 227.8 H 166.0 H O2 Differential Oxyhemoglobin 98.4 98.6 Percent Blood Gas 37.0 37.0 Temperature Blood Gas 22.0 22.0 Respiration Rate Blood Gas 22 22 Actual Respiration Rat e Blood Gas VENT - AC VENT - AC Modality FiO2 60.0 60.0 Blood Gas Tidal 500.0 500.0 Volume Blood Gas 55.0 Inspiratory Pressure Blood Gas KM [facility] Notified Whom Blood Gas 08/28/2018 2:05:2 08/28/2018 7:36:0 Notified Time 4 AM 6 AM White Blood 14.5 #H Count Red Blood Count 2.73 #L Hemoglobin 8.0 L Hematocrit 25.3 #L Mean 92.7 Corpuscular Volume Mean 29.3 Corpuscular Hemoglobin Mean 31.6 L Corpuscular Hemoglobin Conc ent Red Cell 16.2 H Distribution Width Platelet Count 201 # Mean Platelet 14.1 H Volume Immature 4.500 H Granulocytes % Neutrophils % 73.4 Lymphocytes % 12.1 L Monocytes % 6.3 Eosinophils % 2.9 Basophils % 0.8 Nucleated Red 0.0 Blood Cells % Immature 0.650 H Granulocytes # Neutrophils # 10.7 H Lymphocytes # 1.8 Monocytes # 0.9 Eosinophils # 0.4 Basophils # 0.1 Nucleated Red 0.0 Blood Cells # Sodium Level 138 Potassium Level 3.4 #L Chloride Level 101 Carbon Dioxide 28 Level Anion Gap 9 Blood Urea 43 H Nitrogen Creatinine 2.56 H Est Glomerular 21 L Filtrat Rate mL/min Glucose Level 109 # Calcium Level 8.2 L Phosphorus 2.9 Level Magnesium Level 2.3 Medications Medication Current Medications Norepinephrine 250 ml @ 1.875 mls/ hr TITRATE IV Last administered on 08/27/18at 06:08; Admin Dose 3.75 MLS/HR; Start 08/04/18 at 23:15 Morphine Sulfate (morphine) 1 mg Q1H PRN IV PAIN Last administered on 08/26/18at 22:51; Admin Dose 1 MG; Start 08/04/18 at 23:30 Atorvastatin Calcium (Lipitor) 80 mg DAILY@21 PO Last administered on 08/27/18at 22:10; Admin Dose 80 MG; Start 08/05/18 at 21:00 Nitroglycerin/ Dextrose 250 ml @ 1.5 mls/hr TITRATE IV Last administered on 08/05/18at 14:22; Admin Dose 72 MLS/HR; Start 08/05/18 at 01:00 Miscellaneous Information 1 ea NOTE XX ; Start 08/05/18 at 09:00 Acetaminophen (Tylenol Liquid) 650 mg Q4H PRN PO ELEVATED TEMPERATURE Last administered on 08/28/18at 01:13; Admin Dose 650 MG; Start 08/05/18 at 11:00 Insulin Human Regular 100 unit/ Sodium Chloride 100 ml @ 0 mls/hr PER PROTOCOL IV ; Start 08/05/18 at 12:00 Miscellaneous Information (* Miscellaneous Pharmacy Order) Treatment of Hypoglycemia: 1.BG 51... Per protocol XX ; Start 08/05/18 at 12:00 Dextrose (D50w Syringe) 25 ml Q15M PRN IV .DECREASED GLUCOSE; Start 08/05/18 at 12:00 Dextrose (D50w Syringe) 50 ml Q15M PRN IV .DECREASED GLUCOSE; Start 08/05/18 at 12:00 Fentanyl 100 ml @ 2.5 mls/hr TITRATE IV Last administered on 08/28/18 05:04; Admin Dose 9 MLS/HR; Start 08/05/18 at 12:00 Aspirin (Aspirin) 81 mg DAILY NGT Last administered on 08/27/18 08:22; Admin Dose 81 MG; Start 08/06/18 at 09:00 Multivitamins (Multivitamin) 30 ml DAILY NGT Last administered on 08/27/18 08:21; Admin Dose 30 ML; Start 08/09/18 at 09:00 Zinc Sulfate (Zinc Sulfate) 220 mg DAILY NGT Last administered on 08/27/18 08:21; Admin Dose 220 MG; Start 08/09/18 at 09:00 Folic Acid (Folic Acid) 1 mg DAILY NGT Last administered on 08/27/18 08:22; Admin Dose 1 MG; Start 08/09/18 at 09:00 Ascorbic Acid (Vitamin C) 500 mg DAILY NGT Last administered on 08/27/18 08:22; Admin Dose 500 MG; Start 08/09/18 at 09:00 Albuterol (Ventolin Hfa) 4 puff Q6HWA RESP THERAPY INH Last administered on 08/27/18 19:58; Admin Dose 4 PUFF; Start 08/09/18 at 14:00 Ipratropium [place] (Atrovent Hfa) 4 puff Q6H RESP THERAPY INH Last administered on 08/28/18 02:49; Admin Dose 4 PUFF; Start 08/09/18 at 14:00 IV Flush (NS 10 ml) 10 ml PRN PRN IV IV PROTOCOL; Start 08/11/18 at 16:30 Heparin Sodium (Porcine) (Heparin (1000 Units/ml)) 3,000 unit PRN PRN CATHETER Dialysis Last administered on 08/27/18 13:42; Admin Dose 3,000 UNIT; Start 08/12/18 at 14:30 Labetalol HCl (Labetalol) 10 mg Q4H PRN IV ELEVATED SYSTOLIC BP > 180 Last administered on 08/20/18 16:54; Admin Dose 10 MG; Start 08/14/18 at 19:00 Midazolam HCl 50 ml @ 1 mls/hr TITRATE IV Last administered on 08/20/18 00:16; Admin Dose 5 MLS/HR; Start 08/15/18 at 11:00 Hydralazine HCl (Apresoline) 20 mg Q2 PRN IV ELEVATED SYSTOLIC BP Last administered on 08/22/18 16:18; Admin Dose 20 MG; Start 08/16/18 at 08:00 Carvedilol (Coreg) 12.5 mg Q6H PO Last administered on 08/28/18 06:41; Admin Dose 12.5 MG; Start 08/17/18 at 01:00 Docusate Sodium (Colace Liquid Cup) 100 mg BID GTB Last administered on 08/27/18 22:10; Admin Dose 100 MG; Start 08/18/18 at 09:00 Clopidogrel Bisulfate (plaVIX) 75 mg DAILY NGT Last administered on 08/27/18 08:22; Admin Dose 75 MG; Start 08/18/18 at 13:30 Rifaximin (Xifaxan) 200 mg TID PO Last administered on 08/27/18 22:10; Admin Dose 200 MG; Start 08/19/18 at 13:00 Sevelamer Carbonate (Renvela) 2.4 gm WITH MEALS GTB Last administered on 08/27/18 16:39; Admin Dose 2.4 GM; Start 08/23/18 at 11:30 Ondansetron HCl (Zofran Inj) 4 mg Q4H PRN IV NAUSEA AND/OR VOMITING Last administered on 08/26/18 18:27; Admin Dose 4 MG; Start 08/23/18 at 14:30 Lactobacillus Acidophilus/ Rhamnosus (Culturelle) 1 cap TID GTB Last administered on 08/27/18 22:10; Admin Dose 1 CAP; Start 08/24/18 at 13:00 Sodium Chloride 1,000 ml @ 0 mls/hr Q0M PRN IV TO KEEP SBP ABOVE 90; Start 08/26/18 at 11:38 Albumin Human 100 ml @ 100 mls/hr WITH DIALYSIS PRN IV SBP <90 DURING DIALYSIS; Start 08/26/18 at 12:00 Sodium Chloride (NS) -To prime the dialy... DIRECTED FOR HD PRN IV HD; Start 08/26/18 at 12:00 Nitroglycerin (Nitroglycerin 2% Oint) 0.5 inch Q6 PRN TD CHEST PAIN; Start 08/27/18 at 00:30 Lorazepam (Ativan) 1 mg Q4H PRN IV ANXIETY Last administered on 08/27/18at 04:14; Admin Dose 1 MG; Start 08/27/18 at 04:30 Phenylephrine HCl 250 ml @ 75 mls/hr TITRATE IV ; Start 08/27/18 at 06:30 Sodium Chloride 500 ml @ 0 mls/hr Q0M IV Last administered on 08/27/18at 06:51; Admin Dose 1,000 MLS/HR; Start 08/27/18 at 06:30 Vancomycin HCl (Vanco Iv Per Pharmacy) VANCOMYCIN PER PHARMACY PER PROTOCOL XX ; Start 08/27/18 at 10:00 Cefepime HCl 50 ml @ 100 mls/hr Q24H IVPB Last administered on 08/27/18at 15:17; Admin Dose 100 MLS/HR; Start 08/27/18 at 10:30 Eye Lubricant (Artificial Tears Oph) 2 drop Q2H PRN BOTH EYES dry eyes; Start 08/28/18 at 01:30 Pantoprazole (Protonix Iv) 40 mg DAILY@06 IV Last administered on 08/28/18at 05:06; Admin Dose 40 MG; Start 08/28/18 at 06:00 Potassium Chloride 100 ml @ 50 mls/hr ONCE ONCE IVPB ; Start 08/28/18 at 08:00; Stop 08/28/18 at 09:59 TIEN HENRY Aug 28, 2018 07:59
[2018-08-28] MEDS ORDERED: POTASSIUM CHLORIDE 100 ML IVPB ONE (08:00)
[2018-08-28] MEDS: ALBUTEROL HFA 8 GM INHALER INH SCH ×3 (08:17→19:27)
--- NOTE | 2018-08-28 08:31 | PN ---
DATE: 08/28/2018 SUBJECTIVE: The patient remains critically ill. The patient's trach is noted to have issues with po sitioning. Dr. Wilson is pending evaluation. The patient is more alert today. No other events n oted. OBJECTIVE: VITAL SIGNS: Blood pressure is 113/69, respirations 22, pulse 100, temperature 99.6. HEENT: Head is normocephalic. NECK: Supple. HEART: Regular rate. LUNGS: Show diminished breath sounds at the base. ABDOMEN: Soft, nontender to palpation without rebound or guarding. EXTREMITIES: Negative for clubbing, cyanosis, no edema. DERMATOLOGIC: No rashes. MUSCULOSKELETAL: No joint effusion. NEUROLOGIC: No change in exam. MEDICATIONS: Reviewed. LABORATORY DATA: Reviewed. ABG was reviewed. IMAGING STUDIES: Reviewed. ASSESSMENT AND PLAN: 1. Anuric acute kidney injury with unknown baseline creatinine. Etiology is secondary to acute tubu lar necrosis. The patient remains dialysis dependent. There are no signs of renal recovery. Plan i s for hemodialysis tomorrow. 2. Hypokalemia, we will replete with potassium chloride. 3. Volume overload, improved. Continue ultrafiltration dialysis. 4. Anemia. Continue to monitor hemoglobin and hematocrit levels. We will give Epogen as needed. 5. Rhabdomyolysis. The patient's CK levels remain markedly elevated. Continue hemodialysis for shelli modesto clearance. 6. Mineral bone disorder, monitor calcium and phosphorus levels. Continue phosphate binders. 7. Ventilator dependent respiratory failure. Vent settings and ABG was reviewed. The patient's tra ch noted to have possible malposition, pending evaluation by Dr. Wilson. 8. Coronary artery disease with history of ST elevated myocardial infarction. The patient is status post cardiac catheterization of PCI. Continue current medical management. 9. Sepsis, status post shock. The patient is completing antibiotic course. 10. Acute encephalopathy, etiology is toxic metabolic. Continue to monitor. 11. Acute cerebrovascular accident. Continue current treatment plan. 12. Dysphagia. Continue tube feeding. 13. Morbid obesity. 14. Status post cardiac arrest. 15. Respiratory acidemia. The patient's ABG was reviewed, pCO2 levels were noted to be markedly shivani vated, has since been adjusted by pulmonary. We will continue to monitor. Dictated By: BHUMI JOSEPH/ALLI Conf#: [id number] DID#: [id number] CC: DANIAL TUCKER MD; HARPAL PEDROZA MD; LAUREN GREWAL MD;*[facility]*
[2018-08-28] MEDS: LACTOBACILLUS RHAMNOSUS CAP GTB SCH ×3 (08:39→20:34)
[2018-08-28] MEDS: DOCUSATE SODIUM 10 MG/ML (10ML CUP) GTB SCH ×2 (08:39→20:27)
[2018-08-28] MEDS: ASPIRIN 81 MG TAB NGT SCH (08:39)
[2018-08-28] MEDS: SEVELAMER CARBONATE 2.4 GM PKT GTB SCH ×3 (08:39→18:39)
[2018-08-28] MEDS: CLOPIDOGREL 75 MG TAB NGT SCH (08:40)
[2018-08-28] MEDS: FOLIC ACID 1 MG TAB NGT SCH (08:40)
[2018-08-28] MEDS: MULTIVITAMINS 30 ML CUP NGT SCH (08:40)
[2018-08-28] MEDS: RIFAXIMIN 200 MG TAB PO SCH ×3 (08:40→20:34)
[2018-08-28] MEDS: ZINC SULFATE 220 MG CAP NGT SCH (08:40)
[2018-08-28] MEDS: ASCORBIC ACID 500 MG TAB NGT SCH (08:40)
--- NOTE | 2018-08-28 09:29 | CONS ---
Assessment/Plan Assessment/Plan Assessment/Plan (Daily) Ventilator setting; assist control of 22, tidal volume 500, PEEP of 5, 60% FiO2. Patient is currently on fentanyl at 90 mics per hour. Chest x-ray showing bilateral lower lobe pneumonia more pronounced on the right side. Assessment recommendations; next 1. Patient had a post cardiac arrest status post PTCA status post tracheostomy because of failure to be weaned from ventilator. 2. Tracheostomy is highly positional and needs to be revised. Causing significant airway obstruction. 3. CVA. 4. Anemia. 5. Chronic renal failure, on hemodialysis. 6. Anemia. 7. History of hypertension. 8. Recurrent pneumonia. Continue current supportive care. Ventilator settings have been adjusted. Ass ist control decreased to 18, FiO2 dropped down to 30% and 5 of PEEP added. Tracheostomy will need to be revised. Patient will likely go to [facility] again for repeat coronary angiography. Obtain follow-up chest x-ray 24 hours. 35-minute of critical care time was spent evaluating the patient. Consultation Date/Type/Reason Admit Date/Time Aug 04, 2018 at 23:10 Initial Consult Date 08/17/18 Type of Consult Pulmonary/critical care Requesting Provider: HARPAL AGGARWAL MD Date/Time of Note DATE: 08/28/18 TIME: 09:25 24 HR Interval Summary Free Text/Dictation Patient's condition is stable. Remains awake and alert. Has remained hemodynamically stable. General exam; young female, awake alert, on ventilator via tracheostomy, currently no distress. Exam/Review of Systems Exam Vitals Vital Signs Date Temp Pulse Resp B/P (MAP) Pulse Ox O2 O2 Flow FiO2 Time Delivery Rate 08/28/18 90 22 100 60 08:17 08/28/18 99.4 121/74 Mechanical 08:00 (90) Ventilator Intake and Output 08/27/18 08/27/18 08/28/18 1515:00 23:00 07:00 IntakeIntake Total 282 ml 443 ml 343 ml OutputOutput Total 2600 ml 100 ml 650 ml BalanceBalance -2318 ml 343 ml -307 ml Exam H EENT exam; supple neck, no JVD. No lymphadenopathy. Midline trachea. No t hyromegaly. Tracheostomy in place. Patient has good dentition. No neck masses. Chest exam; diminished but clear breath sounds. S1-S2 audible, no murmurs. Regular rhythm. Abdomen exam; soft, G-tube in place. No organomegaly. Bowel sounds audible. Extremity exam; peripheral edema clubbing. Pulses 2+. [facility] exam; no focal deficit. Results Result Diagram: 08/28/18 0430 08/28/18 0430 Results 24hrs Laboratory Tests Test 08/27/18 09:56 08/27/18 10:20 08/27/18 11:15 08/28/18 01:42 Creatine Kinase 01242 H Creatine Kinase 0.4 Index Creatinine 67.40 H Kinase MB (Mass) Troponin I 1.280 *H Bedside Glucose 137 Blood Gas Blood arterial Blood arterial Specimen Source Arterial Blood 08/27/2018 11:25: 08/28/2018 1:54:4 Date Drawn 00 AM 0 AM Arterial Blood 7.384 7.528 H pH (Temp corrected ) Arterial Blood 40.1 31.8 L pCO2 (Temp correct) Arterial Blood 206.5 H 165.0 H pO2 (Temp corrected ) Arterial Blood 23.4 25.9 HCO3 Arterial Blood -1.5 3.4 H Base Excess Arterial Blood 98.7 H 98.9 H Oxygen Saturati on Dajuan Test ACCEPTAB ACCEPTAB Arterial Blood LB Right Radial Gas Puncture Site Arterial 0.3 0.2 Blood Carboxyhe moglobin Arterial Blood 0.5 0.3 Methemoglobin Blood Gas A-a 177.2 H 227.8 H O2 Differential Oxyhemoglobin 97.9 98.4 Percent Blood Gas 37.0 37.0 Temperature Blood Gas 22.0 22.0 Respiration Rate Blood Gas 22 22 Actual Respiration Rat e Blood Gas VENT - AC VENT - AC Modality FiO2 60.0 60.0 Blood Gas Tidal 500.0 500.0 Volume Blood Gas [facility] Notified Whom Blood Gas 08/27/2018 11:46: 08/28/2018 2:05:2 Notified Time 12 AM 4 AM Blood Gas 55.0 Inspiratory Pressure Test 08/28/18 04:30 08/28/18 07:00 White Blood 14.5 #H Count Red Blood Count 2.73 #L Hemoglobin 8.0 L Hematocrit 25.3 #L Mean 92.7 Corpuscular Volume Mean 29.3 Corpuscular Hemoglobin Mean 31.6 L Corpuscular Hemoglobin Conc ent Red Cell 16.2 H Distribution Width Platelet Count 201 # Mean Platelet 14.1 H Volume Immature 4.500 H Granulocytes % Neutrophils % 73.4 Lymphocytes % 12.1 L Monocytes % 6.3 Eosinophils % 2.9 Basophils % 0.8 Nucleated Red 0.0 Blood Cells % Immature 0.650 H Granulocytes # Neutrophils # 10.7 H Lymphocytes # 1.8 Monocytes # 0.9 Eosinophils # 0.4 Basophils # 0.1 Nucleated Red 0.0 Blood Cells # Sodium Level 138 Potassium Level 3.4 #L Chloride Level 101 Carbon Dioxide 28 Level Anion Gap 9 Blood Urea 43 H Nitrogen Creatinine 2.56 H Est Glomerular 21 L Filtrat Rate mL/min Glucose Level 109 # Calcium Level 8.2 L Phosphorus 2.9 Level Magnesium Level 2.3 Blood Gas Blood arterial Specimen Source Arterial Blood 08/28/2018 7:18:2 Date Drawn 1 AM Arterial Blood 7.479 H pH (Temp corrected ) Arterial Blood 37.3 pCO2 (Temp correct) Arterial Blood 220.8 H pO2 (Temp corrected ) Arterial Blood 27.1 H HCO3 Arterial Blood 3.4 H Base Excess Arterial Blood 99.0 H Oxygen Saturati on Dajuan Test ACCEPTAB Arterial Blood Left Radial Gas Puncture Site Arterial 0.2 Blood Carboxyhe moglobin Arterial Blood 0.2 Methemoglobin Blood Gas A-a 166.0 H O2 Differential Oxyhemoglobin 98.6 Percent Blood Gas 37.0 Temperature Blood Gas 22.0 Respiration Rate Blood Gas 22 Actual Respiration Rat e Blood Gas VENT - AC Modality FiO2 60.0 Blood Gas Tidal 500.0 Volume Blood Gas TM Notified Whom Blood Gas 08/28/2018 7:36:0 Notified Time 6 AM Medications Medication Current Medications Norepinephrine 250 ml @ 1.875 mls/ hr TITRATE IV Last administered on 08/27/18 06:08; Admin Dose 3.75 MLS/HR; Start 08/04/18 at 23:15 Morphine Sulfate (morphine) 1 mg Q1H PRN IV PAIN Last administered on 08/26/18 22:51; Admin Dose 1 MG; Start 08/04/18 at 23:30 Atorvastatin Calcium (Lipitor) 80 mg DAILY@21 PO Last administered on 08/27/18 22:10; Admin Dose 80 MG; Start 08/05/18 at 21:00 Nitroglycerin/ Dextrose 250 ml @ 1.5 mls/hr TITRATE IV Last administered on 08/05/18 14:22; Admin Dose 72 MLS/HR; Start 08/05/18 at 01:00 Miscellaneous Information 1 ea NOTE XX ; Start 08/05/18 at 09:00 Acetaminophen (Tylenol Liquid) 650 mg Q4H PRN PO ELEVATED TEMPERATURE Last administered on 08/28/18 01:13; Admin Dose 650 MG; Start 08/05/18 at 11:00 Insulin Human Regular 100 unit/ Sodium Chloride 100 ml @ 0 mls/hr PER PROTOCOL IV ; Start 08/05/18 at 12:00 Miscellaneous Information (* Miscellaneous Pharmacy Order) Treatment of Hypoglycemia: 1.BG 51... Per protocol XX ; Start 08/05/18 at 12:00 Dextrose (D50w Syringe) 25 ml Q15M PRN IV .DECREASED GLUCOSE; Start 08/05/18 at 12:00 Dextrose (D50w Syringe) 50 ml Q15M PRN IV .DECREASED GLUCOSE; Start 08/05/18 at 12:00 Fentanyl 100 ml @ 2.5 mls/hr TITRATE IV Last administered on 08/28/18 05:04; Admin Dose 9 MLS/HR; Start 08/05/18 at 12:00 Aspirin (Aspirin) 81 mg DAILY NGT Last administered on 08/28/18 08:39; Admin Dose 81 MG; Start 08/06/18 at 09:00 Multivitamins (Multivitamin) 30 ml DAILY NGT Last administered on 08/28/18 08:40; Admin Dose 30 ML; Start 08/09/18 at 09:00 Zinc Sulfate (Zinc Sulfate) 220 mg DAILY NGT Last administered on 08/28/18 08:40; Admin Dose 220 MG; Start 08/09/18 at 09:00 Folic Acid (Folic Acid) 1 mg DAILY NGT Last administered on 08/28/18 08:40; Admin Dose 1 MG; Start 08/09/18 at 09:00 Ascorbic Acid (Vitamin C) 500 mg DAILY NGT Last administered on 08/28/18 08:40; Admin Dose 500 MG; Start 08/09/18 at 09:00 Albuterol (Ventolin Hfa) 4 puff Q6HWA RESP THERAPY INH Last administered on 08/28/18 08:17; Admin Dose 4 PUFF; Start 08/09/18 at 14:00 Ipratropium [place] (Atrovent Hfa) 4 puff Q6H RESP THERAPY INH Last administered on 08/28/18 08:16; Admin Dose 4 PUFF; Start 08/09/18 at 14:00 IV Flush (NS 10 ml) 10 ml PRN PRN IV IV PROTOCOL; Start 08/11/18 at 16:30 Heparin Sodium (Porcine) (Heparin (1000 Units/ml)) 3,000 unit PRN PRN [facility] Dialysis Last administered on 08/27/18 13:42; Admin Dose 3,000 UNIT; Start 08/12/18 at 14:30 Labetalol HCl (Labetalol) 10 mg Q4H PRN IV ELEVATED SYSTOLIC BP > 180 Last administered on 08/20/18 16:54; Admin Dose 10 MG; Start 08/14/18 at 19:00 Midazolam HCl 50 ml @ 1 mls/hr TITRATE IV Last administered on 08/20/18 00:16; Admin Dose 5 MLS/HR; Start 08/15/18 at 11:00 Hydralazine HCl (Apresoline) 20 mg Q2 PRN IV ELEVATED SYSTOLIC BP Last administered on 08/22/18 16:18; Admin Dose 20 MG; Start 08/16/18 at 08:00 Carvedilol (Coreg) 12.5 mg Q6H PO Last administered on 08/28/18 06:41; Admin Dose 12.5 MG; Start 08/17/18 at 01:00 Docusate Sodium (Colace Liquid Cup) 100 mg BID GTB Last administered on 08/28/18 08:39; Admin Dose 100 MG; Start 08/18/18 at 09:00 Clopidogrel Bisulfate (plaVIX) 75 mg DAILY NGT Last administered on 08/28/18 08:40; Admin Dose 75 MG; Start 08/18/18 at 13:30 Rifaximin (Xifaxan) 200 mg TID PO Last administered on 08/28/18 08:40; Admin Dose 200 MG; Start 08/19/18 at 13:00 Sevelamer Carbonate (Renvela) 2.4 gm WITH MEALS GTB Last administered on 08/28/18 08:39; Admin Dose 2.4 GM; Start 08/23/18 at 11:30 Ondansetron HCl (Zofran Inj) 4 mg Q4H PRN IV NAUSEA AND/OR VOMITING Last administered on 08/26/18at 18:27; Admin Dose 4 MG; Start 08/23/18 at 14:30 Lactobacillus Acidophilus/ Rhamnosus (Culturelle) 1 cap TID GTB Last administered on 08/28/18at 08:39; Admin Dose 1 CAP; Start 08/24/18 at 13:00 Sodium Chloride 1,000 ml @ 0 mls/hr Q0M PRN IV TO KEEP SBP ABOVE 90; Start 08/26/18 at 11:38 Albumin Human 100 ml @ 100 mls/hr WITH DIALYSIS PRN IV SBP <90 DURING DIALYSIS; Start 08/26/18 at 12:00 Sodium Chloride (NS) -To prime the dialy... DIRECTED FOR HD PRN IV HD; Start 08/26/18 at 12:00 Nitroglycerin (Nitroglycerin 2% Oint) 0.5 inch Q6 PRN TD CHEST PAIN; Start 08/27/18 at 00:30 Lorazepam (Ativan) 1 mg Q4H PRN IV ANXIETY Last administered on 08/27/18at 04:14; Admin Dose 1 MG; Start 08/27/18 at 04:30 Phenylephrine HCl 250 ml @ 75 mls/hr TITRATE IV ; Start 08/27/18 at 06:30 Sodium Chloride 500 ml @ 0 mls/hr Q0M IV Last administered on 08/27/18at 06:51; Admin Dose 1,000 MLS/HR; Start 08/27/18 at 06:30 Vancomycin HCl (Vanco Iv Per Pharmacy) VANCOMYCIN PER PHARMACY PER PROTOCOL XX ; Start 08/27/18 at 10:00 Cefepime HCl 50 ml @ 100 mls/hr Q24H IVPB Last administered on 08/27/18at 15:17; Admin Dose 100 MLS/HR; Start 08/27/18 at 10:30 Eye Lubricant (Artificial Tears Oph) 2 drop Q2H PRN BOTH EYES dry eyes; Start 08/28/18 at 01:30 Pantoprazole (Protonix Iv) 40 mg DAILY@06 IV Last administered on 08/28/18 05:06; Admin Dose 40 MG; Start 08/28/18 at 06:00 Potassium Chloride 100 ml @ 50 mls/hr ONCE ONCE IVPB Last administered on 08/28at 08:50; Admin Dose 50 MLS/HR; Start 08/28/18 at 08:00; Stop 08/28/18 at 09:59 MARIAA KINSEY Aug 28, 2018 09:29
--- NOTE | 2018-08-28 09:34 | CONS ---
Consult Date/Type/Reason Admit Date/Time Aug 04, 2018 at 23:10 Initial Consult Date 08/05/18 Type of Consultation: cv Requesting Provider: HARPAL AGGARWAL MD Date/Time of Note DATE: 08/28/18 TIME: 09:30 Subjective Interventional cardiology follow-up progress note/critical care Subjective: Events noted discussed with the staff and physicians including Dr Jones Patient remains on the vent s/p trach No V tachycardia or V fibrillation. BP is stable now pt with less bleeding at PEG trach sites. she denies any cp to me now pt had issues with trach again last night and it is very positional per staff and pulm. events noted s/p PCI 100% occluded LAD 08/04 S/P PCI LCX/ OM s/p trach 08/22/18 Objective: General: Obese female no acute distress HEENT: NC/AT. pupils are equal. round. NECK: . no stridor. s/p trach CV: RRR. systolic murmur; no gallop or rubs. PULM: no wheezing + diffuse rhonchi. GI: Obese SOFT, NT, ND, no rebound or guarding s/pPEG Extremity: +B/L LE edema. no clubbing. neuro: awake and follows commands Psych: Calm now rectal: deferred EKG August 06, 2018 was personally within normal sinus rhythm. T wave inversions anterior and inferior leads ECG 08/07: NSR ST T abn c/w ant/lat ischemia CXR 08/14: Nonspecific patchy bilateral pulmonary opacity, mildly improved on the right. No pneumothorax. Endotracheal tube, nasogastric tube, and right-sided PICC line remain in place. Stable mild cardiomegaly. The osseous structures are remarkable for degenerative enthesopathy of the spine. Chest x-ray done August 06 shows:No evidence for active cardiopulmonary disease. CXR 08/19: Diffuse bilateral reticular nodular infiltrates unchanged. Question bronchopneumonia versus failure. CXR 08/28/18: Allowing for support structures overlying the right base, no significant change. Left mid and bibasilar air space opacities/infiltrates are again present. Lines and tubes are stable ECHO personally reviewed Normal left ventricular cavity size. Normal left ventricular wall thickness. Ejection fraction is visually estimated at 55-65 %. Normal appearance of the mitral valve. Mitral valve is not well visualized. No mitral valve regurgitation is seen. Aortic valve not well visualized. No aortic regurgitation. Normal appearance of the tricuspid valve. Unable to obtain RVSP due to minimal presence of tricuspid regurgitation. No evidence of tricuspid regurgitation. Normal pericardium with no significant pericardial effusion. suboptimal study. Objective Vitals Vital Signs Date Temp Pulse Resp B/P (MAP) Pulse Ox O2 O2 Flow FiO2 Time Delivery Rate 08/28/18 90 22 100 60 08:17 08/28/18 99.4 121/74 Mechanical 08:00 (90) Ventilator Intake and Output 08/27/18 08/27/18 08/28/18 1515:00 23:00 07:00 IntakeIntake Total 282 ml 443 ml 343 ml OutputOutput Total 2600 ml 100 ml 650 ml BalanceBalance -2318 ml 343 ml -307 ml Results/Medications Result Diagram: 08/28/18 0430 08/28/18 0430 Results 24 hrs Laboratory Tests Test 08/27/18 09:56 08/27/18 10:20 08/27/18 11:15 08/28/18 01:42 Creatine Kinase 06079 H Creatine Kinase 0.4 Index Creatinine 67.40 H Kinase MB (Mass) Troponin I 1.280 *H Bedside Glucose 137 Blood Gas Blood arterial Blood arterial Specimen Source Arterial Blood 08/27/2018 11:25: 08/28/2018 1:54:4 Date Drawn 00 AM 0 AM Arterial Blood 7.384 7.528 H pH (Temp corrected ) Arterial Blood 40.1 31.8 L pCO2 (Temp correct) Arterial Blood 206.5 H 165.0 H pO2 (Temp corrected ) Arterial Blood 23.4 25.9 HCO3 Arterial Blood -1.5 3.4 H Base Excess Arterial Blood 98.7 H 98.9 H Oxygen Saturati on Dajuan Test ACCEPTAB ACCEPTAB Arterial Blood LB Right Radial Gas Puncture Site Arterial 0.3 0.2 Blood Carboxyhe moglobin Arterial Blood 0.5 0.3 Methemoglobin Blood Gas A-a 177.2 H 227.8 H O2 Differential Oxyhemoglobin 97.9 98.4 Percent Blood Gas 37.0 37.0 Temperature Blood Gas 22.0 22.0 Respiration Rate Blood Gas 22 22 Actual Respiration Rat e Blood Gas VENT - AC VENT - AC Modality FiO2 60.0 60.0 Blood Gas Tidal 500.0 500.0 Volume Blood Gas SM KM Notified Whom Blood Gas 08/27/2018 11:46: 08/28/2018 2:05:2 Notified Time 12 AM 4 AM Blood Gas 55.0 Inspiratory Pressure Test 08/28/18 04:30 08/28/18 07:00 White Blood 14.5 #H Count Red Blood Count 2.73 #L Hemoglobin 8.0 L Hematocrit 25.3 #L Mean 92.7 Corpuscular Volume Mean 29.3 Corpuscular Hemoglobin Mean 31.6 L Corpuscular Hemoglobin Conc ent Red Cell 16.2 H Distribution Width Platelet Count 201 # Mean Platelet 14.1 H Volume Immature 4.500 H Granulocytes % Neutrophils % 73.4 Lymphocytes % 12.1 L Monocytes % 6.3 Eosinophils % 2.9 Basophils % 0.8 Nucleated Red 0.0 Blood Cells % Immature 0.650 H Granulocytes # Neutrophils # 10.7 H Lymphocytes # 1.8 Monocytes # 0.9 Eosinophils # 0.4 Basophils # 0.1 Nucleated Red 0.0 Blood Cells # Sodium Level 138 Potassium Level 3.4 #L Chloride Level 101 Carbon Dioxide 28 Level Anion Gap 9 Blood Urea 43 H Nitrogen Creatinine 2.56 H Est Glomerular 21 L Filtrat Rate mL/min Glucose Level 109 # Calcium Level 8.2 L Phosphorus 2.9 Level Magnesium Level 2.3 Blood Gas Blood arterial Specimen Source Arterial Blood 08/28/2018 7:18:2 Date Drawn 1 AM Arterial Blood 7.479 H pH (Temp corrected ) Arterial Blood 37.3 pCO2 (Temp correct) Arterial Blood 220.8 H pO2 (Temp corrected ) Arterial Blood 27.1 H HCO3 Arterial Blood 3.4 H Base Excess Arterial Blood 99.0 H Oxygen Saturati on Dajuan Test ACCEPTAB Arterial Blood Left Radial Gas Puncture Site Arterial 0.2 Blood Carboxyhe moglobin Arterial Blood 0.2 Methemoglobin Blood Gas A-a 166.0 H O2 Differential Oxyhemoglobin 98.6 Percent Blood Gas 37.0 Temperature Blood Gas 22.0 Respiration Rate Blood Gas 22 Actual Respiration Rat e Blood Gas VENT - AC Modality FiO2 60.0 Blood Gas Tidal 500.0 Volume Blood Gas TM Notified Whom Blood Gas 08/28/2018 7:36:0 Notified Time 6 AM Medications Current Medications Norepinephrine 250 ml @ 1.875 mls/ hr TITRATE IV Last administered on 08/27/18at 06:08; Admin Dose 3.75 MLS/HR; Start 08/04/18 at 23:15 Morphine Sulfate (morphine) 1 mg Q1H PRN IV PAIN Last administered on 08/26/18 22:51; Admin Dose 1 MG; Start 08/04/18 at 23:30 Atorvastatin Calcium (Lipitor) 80 mg DAILY@21 PO Last administered on 08/27/18 22:10; Admin Dose 80 MG; Start 08/05/18 at 21:00 Nitroglycerin/ Dextrose 250 ml @ 1.5 mls/hr TITRATE IV Last administered on 08/05/18at 14:22; Admin Dose 72 MLS/HR; Start 08/05/18 at 01:00 Miscellaneous Information 1 ea NOTE XX ; Start 08/05/18 at 09:00 Acetaminophen (Tylenol Liquid) 650 mg Q4H PRN PO ELEVATED TEMPERATURE Last administered on 08/28/18 01:13; Admin Dose 650 MG; Start 08/05/18 at 11:00 Insulin Human Regular 100 unit/ Sodium Chloride 100 ml @ 0 mls/hr PER PROTOCOL IV ; Start 08/05/18 at 12:00 Miscellaneous Information (* Miscellaneous Pharmacy Order) Treatment of Hypoglycemia: 1.BG 51... Per protocol XX ; Start 08/05/18 at 12:00 Dextrose (D50w Syringe) 25 ml Q15M PRN IV .DECREASED GLUCOSE; Start 08/05/18 at 12:00 Dextrose (D50w Syringe) 50 ml Q15M PRN IV .DECREASED GLUCOSE; Start 08/05/18 at 12:00 Fentanyl 100 ml @ 2.5 mls/hr TITRATE IV Last administered on 08/28/18at 05:04; Admin Dose 9 MLS/HR; Start 08/05/18 at 12:00 Aspirin (Aspirin) 81 mg DAILY NGT Last administered on 08/28/18 08:39; Admin Dose 81 MG; Start 08/06/18 at 09:00 Multivitamins (Multivitamin) 30 ml DAILY NGT Last administered on 08/28/18 08:40; Admin Dose 30 ML; Start 08/09/18 at 09:00 Zinc Sulfate (Zinc Sulfate) 220 mg DAILY NGT Last administered on 08/28/18 08:40; Admin Dose 220 MG; Start 08/09/18 at 09:00 Folic Acid (Folic Acid) 1 mg DAILY NGT Last administered on 08/28/18 08:40; Admin Dose 1 MG; Start 08/09/18 at 09:00 Ascorbic Acid (Vitamin C) 500 mg DAILY NGT Last administered on 08/28/18 08:40; Admin Dose 500 MG; Start 08/09/18 at 09:00 Albuterol (Ventolin Hfa) 4 puff Q6HWA RESP THERAPY INH Last administered on 08/28/18 08:17; Admin Dose 4 PUFF; Start 08/09/18 at 14:00 Ipratropium [place] (Atrovent Hfa) 4 puff Q6H RESP THERAPY INH Last administered on 08/28/18 08:16; Admin Dose 4 PUFF; Start 08/09/18 at 14:00 IV Flush (NS 10 ml) 10 ml PRN PRN IV IV PROTOCOL; Start 08/11/18 at 16:30 Heparin Sodium (Porcine) (Heparin (1000 Units/ml)) 3,000 unit PRN PRN CATHETER Dialysis Last administered on 08/27/18 13:42; Admin Dose 3,000 UNIT; Start 08/12/18 at 14:30 Labetalol HCl (Labetalol) 10 mg Q4H PRN IV ELEVATED SYSTOLIC BP > 180 Last administered on 08/20/18 16:54; Admin Dose 10 MG; Start 08/14/18 at 19:00 Midazolam HCl 50 ml @ 1 mls/hr TITRATE IV Last administered on 08/20/18 00:16; Admin Dose 5 MLS/HR; Start 08/15/18 at 11:00 Hydralazine HCl (Apresoline) 20 mg Q2 PRN IV ELEVATED SYSTOLIC BP Last administered on 08/22/18 16:18; Admin Dose 20 MG; Start 08/16/18 at 08:00 Carvedilol (Coreg) 12.5 mg Q6H PO Last administered on 08/28/18 06:41; Admin Dose 12.5 MG; Start 08/17/18 at 01:00 Docusate Sodium (Colace Liquid Cup) 100 mg BID GTB Last administered on 08:39; Admin Dose 100 MG; Start 08/18/18 at 09:00 Clopidogrel Bisulfate (plaVIX) 75 mg DAILY NGT Last administered on 08/28/18 08:40; Admin Dose 75 MG; Start 08/18/18 at 13:30 Rifaximin (Xifaxan) 200 mg TID PO Last administered on 08/28/18 08:40; Admin Dose 200 MG; Start 08/19/18 at 13:00 Sevelamer Carbonate (Renvela) 2.4 gm WITH MEALS GTB Last administered on 08/28/18 08:39; Admin Dose 2.4 GM; Start 08/23/18 at 11:30 Ondansetron HCl (Zofran Inj) 4 mg Q4H PRN IV NAUSEA AND/OR VOMITING Last administered on 08/26/18 18:27; Admin Dose 4 MG; Start 08/23/18 at 14:30 Lactobacillus Acidophilus/ Rhamnosus (Culturelle) 1 cap TID GTB Last administered on 08/28/18 08:39; Admin Dose 1 CAP; Start 08/24/18 at 13:00 Sodium Chloride 1,000 ml @ 0 mls/hr Q0M PRN IV TO KEEP SBP ABOVE 90; Start 08/26/18 at 11:38 Albumin Human 100 ml @ 100 mls/hr WITH DIALYSIS PRN IV SBP <90 DURING DIALYSIS; Start 08/26/18 at 12:00 Sodium Chloride (NS) -To prime the dialy... DIRECTED FOR HD PRN IV HD; Start 08/26/18 at 12:00 Nitroglycerin (Nitroglycerin 2% Oint) 0.5 inch Q6 PRN TD CHEST PAIN; Start 08/27/18 at 00:30 Lorazepam (Ativan) 1 mg Q4H PRN IV ANXIETY Last administered on 08/27/18at 04:14; Admin Dose 1 MG; Start 08/27/18 at 04:30 Phenylephrine HCl 250 ml @ 75 mls/hr TITRATE IV ; Start 08/27/18 at 06:30 Sodium Chloride 500 ml @ 0 mls/hr Q0M IV Last administered on 08/27/18at 06:51; Admin Dose 1,000 MLS/HR; Start 08/27/18 at 06:30 Vancomycin HCl (Vanco Iv Per Pharmacy) VANCOMYCIN PER PHARMACY PER PROTOCOL XX ; Start 08/27/18 at 10:00 Cefepime HCl 50 ml @ 100 mls/hr Q24H IVPB Last administered on 08/27/18at 15:17; Admin Dose 100 MLS/HR; Start 08/27/18 at 10:30 Eye Lubricant (Artificial Tears Oph) 2 drop Q2H PRN BOTH EYES dry eyes; Start 08/28/18 at 01:30 Pantoprazole (Protonix Iv) 40 mg DAILY@06 IV Last administered on 08/28/18at 05:06; Admin Dose 40 MG; Start 08/28/18 at 06:00 Potassium Chloride 100 ml @ 50 mls/hr ONCE ONCE IVPB Last administered on 08/28/18at 08:50; Admin Dose 50 MLS/HR; Start 08/28/18 at 08:00; Stop 08/28/18 at 09:59 Assessment/Plan Hospital Course (Demo Recall) 1. s/p V. fib cardiac arrest 2. Acute myocardial infarction 3. Status post emergent PCI of the 100% occluded LAD as well as PTCA of the diagonal and PCI LCX/ OM 4. Diabetes 5. Respiratory failure status post intubation on the vent 6. Hypertension 7. Renal failure : acute on chronic 8. Likely history of congestive heart failure 9. Dyslipidemia 10. Encephalopathy: Clear anoxic brain injury on hypothermia protocol 11. Morbid obesity 12. Anemia 13. elevated LFT 14. fever, bacteremia pneumonia 15. Malnutrition, anasarca . 16. septic shock and bacteremia 17. oropharyngeal bleeding 18. CVA Recommendations: Continue with aspirin plavix Antibiotic management as per ID recommendation HD as per renal Vent support respiratory care as per internal medicine and pulmonary consultants. s/p Trach now cont Coreg as tolerated/needed Monitor renal function. f/u renal consult rec regarding hemodialysis PPI . 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 WILL PLAN for PCI RCA at a later time but currently appears to be unstable to get out of the bed to the tracheostomy issues CODE STATUS full code More than 32 minutes of critical care time was for management treatment is critically patient excluding any procedures Thank you for his referral. We will continue to follow along with you as needed over the weekend. LOIS JOHNSON MD [facility] LOIS JOHNSON MD Aug 28, 2018 09:34
[2018-08-28] MEDS: CEFEPIME 1GM/50 ML (PMX) 50 ML IVPB SCH (12:01)
--- NOTE | 2018-08-28 14:38 | CONS ---
Assessment/Plan Assessment/Plan Hospital Course (Demo Recall) No acute changes overnight patient is afebrile looks comfortable on vent WBC went down today to 14.5 neutrophils 73.4 Antimicrobials: Vancomycin cefepime Chest x-ray revealed no significant change Microbiology: Urine culture on admission grew E. coli and Proteus, blood cultures growing oxacillin sensitive staph aureus endotracheal aspirate also growing oxacillin sensitive staph aureus ear drainage preliminary growing staph aureus, repeat blood cultures 2 days ago negative Indwelling: Trach, PEG, right femoral Devan, right upper extremity PICC line Physical examination: Obese well-developed middle-aged woman who is intubated in no distress. Head atraumatic normocephalic neck is supple chest rise symmetrical breath sounds diminished bases. Heart: S1-S2. Abdomen distended. Bowel sounds hypoactive. Extremities cyanotic Assessment: 1. Sepsis, status post shock 2. Healthcare associated pneumonia 3. S/p Oxacillin sensitive staph aureus bacteremia 2 to #3 4. S/p polymicrobial UTI 5. ST elevation HI, status post stent 6. Status post V. fib arrest 7. Acute renal failure, started on hemodialysis 8. 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 Anemia and thrombocytopenia 10. Acute sinusitis and bilateral mastoiditis 11. Morbid obesity 12. Diarrhea, r/o C dif Plan: Remains stable, restarted on broad-spectrum antibiotics for pneumonia, WBC trending down, vent management per pulmonary Consultation Date/Type/Reason Admit Date/Time Aug 04, 2018 at 23:10 Initial Consult Date 08/12/18 Type of Consult id Requesting Provider: HARPAL AGGARWAL MD Date/Time of Note DATE: 08/28/18 TIME: 14:37 Exam/Review of Systems Exam Vitals Vital Signs Date Temp Pulse Resp B/P (MAP) Pulse Ox O2 O2 Flow FiO2 Time Delivery Rate 08/28/18 98 12:00 08/28/18 18 100 30 09:31 08/28/18 99.4 121/74 Mechanical 08:00 (90) Ventilator Intake and Output 08/27/18 08/27/18 08/28/18 1515:00 23:00 07:00 IntakeIntake Total 282 ml 443 ml 352 ml OutputOutput Total 2600 ml 100 ml 650 ml BalanceBalance -2318 ml 343 ml -298 ml Results Result Diagram: 08/28/18 0930 08/28/18 0430 Results 24hrs Laboratory Tests Test 08/28/18 01:42 08/28/18 04:30 08/28/18 07:00 08/28/18 09:30 Blood Gas Blood arterial Blood arterial Specimen Source Arterial Blood 08/28/2018 1:54:40 08/28/2018 7:18:21 Date Drawn AM AM Arterial Blood 7.528 H 7.479 H pH (Temp corrected) Arterial Blood 31.8 L 37.3 pCO2 (Temp correct) Arterial Blood 165.0 H 220.8 H pO2 (Temp corrected) Arterial Blood 25.9 27.1 H HCO3 Arterial Blood 3.4 H 3.4 H Base Excess Arterial Blood 98.9 H 99.0 H Oxygen Saturatio n Dajuan Test ACCEPTAB ACCEPTAB Arterial Blood Right Radial Left Radial Gas Puncture Site Arterial 0.2 0.2 Blood Carboxyhem oglobin Arterial Blood 0.3 0.2 Methemoglobin Blood Gas A-a O2 227.8 H 166.0 H Differential Oxyhemoglobin 98.4 98.6 Percent Blood Gas 37.0 37.0 Temperature Blood Gas 22.0 22.0 Respiration Rate Blood Gas Actual 22 22 Respiration Rate Blood Gas VENT - AC VENT - AC Modality FiO2 60.0 60.0 Blood Gas Tidal 500.0 500.0 Volume Blood Gas 55.0 Inspiratory Pressure Blood Gas [facility] Notified Whom Blood Gas 08/28/2018 2:05:24 08/28/2018 7:36:06 Notified Time AM AM White Blood 14.5 #H Count Red Blood Count 2.73 #L Hemoglobin 8.0 L 7.9 L Hematocrit 25.3 #L 25.1 L Mean Corpuscular 92.7 Volume Mean Corpuscular 29.3 Hemoglobin Mean Corpuscular 31.6 L Hemoglobin [place] nt Red Cell 16.2 H Distribution Width Platelet Count 201 # Mean Platelet 14.1 H Volume Immature 4.500 H Granulocytes % Neutrophils % 73.4 Lymphocytes % 12.1 L Monocytes % 6.3 Eosinophils % 2.9 Basophils % 0.8 Nucleated Red 0.0 Blood Cells % Immature 0.650 H Granulocytes # Neutrophils # 10.7 H Lymphocytes # 1.8 Monocytes # 0.9 Eosinophils # 0.4 Basophils # 0.1 Nucleated Red 0.0 Blood Cells # Sodium Level 138 Potassium Level 3.4 #L Chloride Level 101 Carbon Dioxide 28 Level Anion Gap 9 Blood Urea 43 H Nitrogen Creatinine 2.56 H Est Glomerular 21 L Filtrat Rate mL/min Glucose Level 109 # Calcium Level 8.2 L Phosphorus Level 2.9 Magnesium Level 2.3 Medications Medication Current Medications Norepinephrine 250 ml @ 1.875 mls/ hr TITRATE IV Last administered on 08/27/18 06:08; Admin Dose 3.75 MLS/HR; Start 08/04/18 at 23:15 Morphine Sulfate (morphine) 1 mg Q1H PRN IV PAIN Last administered on 08/26/18 22:51; Admin Dose 1 MG; Start 08/04/18 at 23:30 Atorvastatin Calcium (Lipitor) 80 mg DAILY@21 PO Last administered on 08/27/18 22:10; Admin Dose 80 MG; Start 08/05/18 at 21:00 Nitroglycerin/ Dextrose 250 ml @ 1.5 mls/hr TITRATE IV Last administered on 08/05/18 14:22; Admin Dose 72 MLS/HR; Start 08/05/18 at 01:00 Miscellaneous Information 1 ea NOTE XX ; Start 08/05/18 at 09:00 Acetaminophen (Tylenol Liquid) 650 mg Q4H PRN PO ELEVATED TEMPERATURE Last administered on 08/28/18 01:13; Admin Dose 650 MG; Start 08/05/18 at 11:00 Insulin Human Regular 100 unit/ Sodium Chloride 100 ml @ 0 mls/hr PER PROTOCOL IV ; Start 08/05/18 at 12:00 Miscellaneous Information (* Miscellaneous Pharmacy Order) Treatment of Hypoglycemia: 1.BG 51... Per protocol XX ; Start 08/05/18 at 12:00 Dextrose (D50w Syringe) 25 ml Q15M PRN IV .DECREASED GLUCOSE; Start 08/05/18 at 12:00 Dextrose (D50w Syringe) 50 ml Q15M PRN IV .DECREASED GLUCOSE; Start 08/05/18 at 12:00 Fentanyl 100 ml @ 2.5 mls/hr TITRATE IV Last administered on 08/28/18 05:04; Admin Dose 9 MLS/HR; Start 08/05/18 at 12:00 Aspirin (Aspirin) 81 mg DAILY NGT Last administered on 08/28/18 08:39; Admin Dose 81 MG; Start 08/06/18 at 09:00 Multivitamins (Multivitamin) 30 ml DAILY NGT Last administered on 08/28/18 08:40; Admin Dose 30 ML; Start 08/09/18 at 09:00 Zinc Sulfate (Zinc Sulfate) 220 mg DAILY NGT Last administered on 08/28/18 08:40; Admin Dose 220 MG; Start 08/09/18 at 09:00 Folic Acid (Folic Acid) 1 mg DAILY NGT Last administered on 08/28/18 08:40; Admin Dose 1 MG; Start 08/09/18 at 09:00 Ascorbic Acid (Vitamin C) 500 mg DAILY NGT Last administered on 08/28/18 08:40; Admin Dose 500 MG; Start 08/09/18 at 09:00 Albuterol (Ventolin Hfa) 4 puff Q6HWA RESP THERAPY INH Last administered on 08/28/18 08:17; Admin Dose 4 PUFF; Start 08/09/18 at 14:00 Ipratropium [place] (Atrovent Hfa) 4 puff Q6H RESP THERAPY INH Last administered on 08/28/18 08:16; Admin Dose 4 PUFF; Start 08/09/18 at 14:00 IV Flush (NS 10 ml) 10 ml PRN PRN IV IV PROTOCOL; Start 08/11/18 at 16:30 Heparin Sodium (Porcine) (Heparin (1000 Units/ml)) 3,000 unit PRN PRN CATHETER Dialysis Last administered on 08/27/18 13:42; Admin Dose 3,000 UNIT; Start 08/12/18 at 14:30 Labetalol HCl (Labetalol) 10 mg Q4H PRN IV ELEVATED SYSTOLIC BP > 180 Last administered on 08/20/18 16:54; Admin Dose 10 MG; Start 08/14/18 at 19:00 Midazolam HCl 50 ml @ 1 mls/hr TITRATE IV Last administered on 08/20/18 00:16; Admin Dose 5 MLS/HR; Start 08/15/18 at 11:00 Hydralazine HCl (Apresoline) 20 mg Q2 PRN IV ELEVATED SYSTOLIC BP Last administered on 08/22/18 16:18; Admin Dose 20 MG; Start 08/16/18 at 08:00 Carvedilol (Coreg) 12.5 mg Q6H PO Last administered on 08/28/18 12:02; Admin Dose 12.5 MG; Start 08/17/18 at 01:00 Docusate Sodium (Colace Liquid Cup) 100 mg BID GTB Last administered on 08/28/18 08:39; Admin Dose 100 MG; Start 08/18/18 at 09:00 Clopidogrel Bisulfate (plaVIX) 75 mg DAILY NGT Last administered on 08/28/18 08:40; Admin Dose 75 MG; Start 08/18/18 at 13:30 Rifaximin (Xifaxan) 200 mg TID PO Last administered on 08/28/18 12:01; Admin Dose 200 MG; Start 08/19/18 at 13:00 Sevelamer Carbonate (Renvela) 2.4 gm WITH MEALS GTB Last administered on 08/28/18 12:02; Admin Dose 2.4 GM; Start 08/23/18 at 11:30 Ondansetron HCl (Zofran Inj) 4 mg Q4H PRN IV NAUSEA AND/OR VOMITING Last administered on 08/26/18 18:27; Admin Dose 4 MG; Start 08/23/18 at 14:30 Lactobacillus Acidophilus/ Rhamnosus (Culturelle) 1 cap TID GTB Last admin istered on 08/28/18 12:04; Admin Dose 1 CAP; Start 08/24/18 at 13:00 Sodium Chloride 1,000 ml @ 0 mls/hr Q0M PRN IV TO KEEP SBP ABOVE 90; Start 08/26/18 at 11:38 Albumin Human 100 ml @ 100 mls/hr WITH DIALYSIS PRN IV SBP <90 DURING DIALYSIS; Start 08/26/18 at 12:00 Sodium Chloride (NS) -To prime the dialy... DIRECTED FOR HD PRN IV HD; Start 08/26/18 at 12:00 Nitroglycerin (Nitroglycerin 2% Oint) 0.5 inch Q6 PRN TD CHEST PAIN; Start 08/27/18 at 00:30 Lorazepam (Ativan) 1 mg Q4H PRN IV ANXIETY Last administered on 08/27/18 04:14; Admin Dose 1 MG; Start 08/27/18 at 04:30 Phenylephrine HCl 250 ml @ 75 mls/hr TITRATE IV ; Start 4/8/19 at 06:30 Sodium Chloride 500 ml @ 0 mls/hr Q0M IV Last administered on 08/27/18at 06:51; Admin Dose 1,000 MLS/HR; Start 08/27/18 at 06:30 Vancomycin HCl (Vanco Iv Per Pharmacy) VANCOMYCIN PER PHARMACY PER PROTOCOL XX ; Start 08/27/18 at 10:00 Cefepime HCl 50 ml @ 100 mls/hr Q24H IVPB Last administered on 08/28/18at 12:01; Admin Dose 100 MLS/HR; Start 08/27/18 at 10:30 Eye Lubricant (Artificial Tears Oph) 2 drop Q2H PRN BOTH EYES dry eyes; Start 08/28/18 at 01:30 Pantoprazole (Protonix Iv) 40 mg DAILY@06 IV Last administered on 08/28/18at 05:06; Admin Dose 40 MG; Start 08/28/18 at 06:00 Miscellaneous Information (*Rx Drug Level Order Reminder*) VANCO RANDOM W/ AM LABS... 0500 ONCE XX ; Start 08/29/18 at 05:00; Stop 08/29/18 at 05:01 WIN LUCIANO NP Aug 28, 2018 14:38
--- NOTE | 2018-08-28 15:36 | PN ---
Date/Time of Note Date/Time of Note DATE: 08/28/18 TIME: 15:32 Objective Vitals Vital Signs Date Temp Pulse Resp B/P (MAP) Pulse Ox O2 O2 Flow FiO2 Time Delivery Rate 08/28/18 102 19 100 30 15:20 08/28/18 99.4 121/74 Mechanical 08:00 (90) Ventilator Intake and Output 08/27/18 08/27/18 08/28/18 1515:00 23:00 07:00 IntakeIntake Total 282 ml 443 ml 352 ml OutputOutput Total 2600 ml 100 ml 650 ml BalanceBalance -2318 ml 343 ml -298 ml Results Result Diagram: 08/28/18 0930 08/28/18 0430 Medications Medications Current Medications Norepinephrine 250 ml @ 1.875 mls/ hr TITRATE IV Last administered on 08/27/18at 06:08; Admin Dose 3.75 MLS/HR; Start 08/04/18 at 23:15 Morphine Sulfate (morphine) 1 mg Q1H PRN IV PAIN Last administered on 08/26/18at 22:51; Admin Dose 1 MG; Start 08/04/18 at 23:30 Atorvastatin Calcium (Lipitor) 80 mg DAILY@21 PO Last administered on 08/27/18at 22:10; Admin Dose 80 MG; Start 08/05/18 at 21:00 Nitroglycerin/ Dextrose 250 ml @ 1.5 mls/hr TITRATE IV Last administered on 08/05/18at 14:22; Admin Dose 72 MLS/HR; Start 08/05/18 at 01:00 Miscellaneous Information 1 ea NOTE XX ; Start 08/05/18 at 09:00 Acetaminophen (Tylenol Liquid) 650 mg Q4H PRN PO ELEVATED TEMPERATURE Last adm inistered on 08/28/18at 01:13; Admin Dose 650 MG; Start 08/05/18 at 11:00 Insulin Human Regular 100 unit/ Sodium Chloride 100 ml @ 0 mls/hr PER PROTOCOL IV ; Start 08/05/18 at 12:00 Miscellaneous Information (* Miscellaneous Pharmacy Order) Treatment of Hypoglycemia: 1.BG 51... Per protocol XX ; Start 08/05/18 at 12:00 Dextrose (D50w Syringe) 25 ml Q15M PRN IV .DECREASED GLUCOSE; Start 08/05/18 at 12:00 Dextrose (D50w Syringe) 50 ml Q15M PRN IV .DECREASED GLUCOSE; Start 08/05/18 at 12:00 Fentanyl 100 ml @ 2.5 mls/hr TITRATE IV Last administered on 08/28/18 05:04; Admin Dose 9 MLS/HR; Start 08/05/18 at 12:00 Aspirin (Aspirin) 81 mg DAILY NGT Last administered on 08/28/18 08:39; Admin Dose 81 MG; Start 08/06/18 at 09:00 Multivitamins (Multivitamin) 30 ml DAILY NGT Last administered on 08/28/18 08:40; Admin Dose 30 ML; Start 08/09/18 at 09:00 Zinc Sulfate (Zinc Sulfate) 220 mg DAILY NGT Last administered on 08/28/18 08:40; Admin Dose 220 MG; Start 08/09/18 at 09:00 Folic Acid (Folic Acid) 1 mg DAILY NGT Last administered on 08/28/18 08:40; Admin Dose 1 MG; Start 08/09/18 at 09:00 Ascorbic Acid (Vitamin C) 500 mg DAILY NGT Last administered on 08/28/18 08:40; Admin Dose 500 MG; Start 08/09/18 at 09:00 Albuterol (Ventolin Hfa) 4 puff Q6HWA RESP THERAPY INH Last administered on 08/28/18 15:19; Admin Dose 4 PUFF; Start 08/09/18 at 14:00 Ipratropium [place] (Atrovent Hfa) 4 puff Q6H RESP THERAPY INH Last administered on 08/28/18 15:19; Admin Dose 4 PUFF; Start 08/09/18 at 14:00 IV Flush (NS 10 ml) 10 ml PRN PRN IV IV PROTOCOL; Start 08/11/18 at 16:30 Heparin Sodium (Porcine) (Heparin (1000 Units/ml)) 3,000 unit PRN PRN CATHETER Dialysis Last administered on 08/27/18 13:42; Admin Dose 3,000 UNIT; Start 08/12/18 at 14:30 Labetalol HCl (Labetalol) 10 mg Q4H PRN IV ELEVATED SYSTOLIC BP > 180 Last administered on 08/20/18 16:54; Admin Dose 10 MG; Start 08/14/18 at 19:00 Midazolam HCl 50 ml @ 1 mls/hr TITRATE IV Last administered on 08/20/18 00:16; Admin Dose 5 MLS/HR; Start 08/15/18 at 11:00 Hydralazine HCl (Apresoline) 20 mg Q2 PRN IV ELEVATED SYSTOLIC BP Last administered on 08/22/18 16:18; Admin Dose 20 MG; Start 08/16/18 at 08:00 Carvedilol (Coreg) 12.5 mg Q6H PO Last administered on 08/28/18 12:02; Admin Dose 12.5 MG; Start 08/17/18 at 01:00 Docusate Sodium (Colace Liquid Cup) 100 mg BID GTB Last administered on 08/28/18 08:39; Admin Dose 100 MG; Start 08/18/18 at 09:00 Clopidogrel Bisulfate (plaVIX) 75 mg DAILY NGT Last administered on 08/28/18 08:40; Admin Dose 75 MG; Start 08/18/18 at 13:30 Rifaximin (Xifaxan) 200 mg TID PO Last administered on 08/28/18 12:01; Admin Dose 200 MG; Start 08/19/18 at 13:00 Sevelamer Carbonate (Renvela) 2.4 gm WITH MEALS GTB Last administered on 08/28/18 12:02; Admin Dose 2.4 GM; Start 08/23/18 at 11:30 Ondansetron HCl (Zofran Inj) 4 mg Q4H PRN IV NAUSEA AND/OR VOMITING Last administered on 08/26/18 18:27; Admin Dose 4 MG; Start 08/23/18 at 14:30 Lactobacillus Acidophilus/ Rhamnosus (Culturelle) 1 cap TID GTB Last administered on 08/28/18 12:04; Admin Dose 1 CAP; Start 08/24/18 at 13:00 Sodium Chloride 1,000 ml @ 0 mls/hr Q0M PRN IV TO KEEP SBP ABOVE 90; Start 08/26/18 at 11:38 Albumin Human 100 ml @ 100 mls/hr WITH DIALYSIS PRN IV SBP <90 DURING DIALYSIS; Start 08/26/18 at 12:00 Sodium Chloride (NS) -To prime the dialy... DIRECTED FOR HD PRN IV HD; Start 08/26/18 at 12:00 Nitroglycerin (Nitroglycerin 2% Oint) 0.5 inch Q6 PRN TD CHEST PAIN; Start 08/27/18 at 00:30 Lorazepam (Ativan) 1 mg Q4H PRN IV ANXIETY Last administered on 08/27/18at 04:14; Admin Dose 1 MG; Start 08/27/18 at 04:30 Phenylephrine HCl 250 ml @ 75 mls/hr TITRATE IV ; Start 08/27/18 at 06:30 Sodium Chloride 500 ml @ 0 mls/hr Q0M IV Last administered on 08/27/18at 06:51; Admin Dose 1,000 MLS/HR; Start 08/27/18 at 06:30 Vancomycin HCl (Vanco Iv Per Pharmacy) VANCOMYCIN PER PHARMACY PER PROTOCOL XX ; Start 08/27/18 at 10:00 Cefepime HCl 50 ml @ 100 mls/hr Q24H IVPB Last administered on 08/28/18at 12:01; Admin Dose 100 MLS/HR; Start 08/27/18 at 10:30 Eye Lubricant (Artificial Tears Oph) 2 drop Q2H PRN BOTH EYES dry eyes; Start 08/28/18 at 01:30 Pantoprazole (Protonix Iv) 40 mg DAILY@06 IV Last administered on 08/28/18at 05:06; Admin Dose 40 MG; Start 08/28/18 at 06:00 Miscellaneous Information (*Rx Drug Level Order Reminder*) VANCO RANDOM W/ AM LABS... 0500 ONCE XX ; Start 08/29/18 at 05:00; Stop 08/29/18 at 05:01 VTE Prophylaxis Risk score (from Ns)>0 risk: 5 SCD applied (from Ns): Yes Lines/Catheters IV Catheter Type: Aguilar in Place: No Assessment/Plan Hospital Course Subjective Patient doing much better, back to previous baseline a few days ago, following command Objective Physical exam General: Patient is laying in bed with tracheostomy Mentation: Patient is arousable and following command Head: Normocephalic atraumatic Eyes: EOMI, pupils reactive to light Neck: Supple, nontender, midline Respiratory: Coarse to auscultation bilaterally Cardiovascular: regular rate, no obvious murmurs Gastrointestinal: non-tender to palpation, bowel sounds heard. Neurological: Able to follow commands and move all extremities although limited Skin: No new skin lesions Assessment/Plan 1. Acute hypoxic respiratory failure - Per Pulm, trach may be sitting on trach wall, doing much better now that patient's neck was repositioned - Patients mentation improved significantly after trach was adjusted, cardiothoracic surgeon was notified to possibly adjust trach -Has PEG and trach 2. Acute toxic/metabolic encephalopathy-decompensated from hypercapnia, resolved -After decompensating hypoxic event, patient back to her previous baseline a few days ago of able to follow command and interact. - Neurology input appreciated and will reconsult if needed 3. Bilateral CVA - Found on MRI, likely thromboembolic secondary to cardiopulmonary arrest per neurology - Continue on aspirin/plavix and Lipitor 4. Anemia, blood loss and renal disease- stable - Hgb remains stable and no need for transfusion at this time there appears to be a drop from yesterday however the level is consistent with hemoglobin 2 days ago so it is more likely that the hemoglobin levels in the past 2 days were mild incorrect readings. Patient's current hemoglobin level is consistent with hemoglobin after most recent transfusion. -Unsure reason for Protonix drip at this time, however will continue for now and investigate further, may be have started due to drop in hemoglobin a few days ago, will transition to PPI IV 5. Bilateral Pneumonia -Infectious disease on board, antibiotics per infectious disease 6. Septic shock secondary to PNA and bacteremia- resolved - Blood cultures and sputum culture results noted. - ID on board Hypotension, resolved -May be due secondary to respiratory events overnight -Pressors as needed Rhabdomyolysis -Nephrology on board, dialysis as needed, unsure if rhabdomyolysis is acute. 7. CAD s/p PCI x2 - Cardiology on board and appreciate recommendations. Stressed importance of continuing DAPT given recent stent placements and high risk of restenosis - s/p emergent Cath 08/05 with successful PTCA and stenting of proximal and mid LAD, PTCA of the large first diagonal and thrombectomy of the LAD - Repeat PCI on 08/07 performed with stenting to LCx - plans for stenting of RCA prior to discharge if possible 8. Renal failure on HD - Nephrology on board and appreciate recommendations. Continue HD - secondary to septic shock, ATN vs prerenal vs contrast induced nephropathy - will avoid nephrotoxic agents 9. Diabetes - A1c noted - ISS not needed 10. S/p V-fib cardiac arrest secondary to STEMI - Completed hypothermia protocol 11. Disposition -Continue monitoring for improvement, >35 minutes of critical care time spent with patient and father at bedside HARPAL PEDROZA Aug 28, 2018 15:36
--- NOTE | 2018-08-28 18:01 | RADRPT ---
Vent Rate: 114 bpm RR Interval: 0 msec HI Interval: 126 msec QRS Duration: 90 msec QT Interval: 332 msec QTC Interval: 457 msec P-R-T [place]: 49 - 52 - [address] & T wave abnormality, consider lateral ischemia Abnormal ECG Electronically Signed By: Earl Feliciano
[2018-08-28] MEDS: ATORVASTATIN 80 MG TAB PO SCH (20:34)
[2018-08-29] VITALS (44 sets, daily range): BP systolic 121–168; BP diastolic 78–116; PULSE 88–105; RESP 18–25
[2018-08-29] MEDS: IPRATROPIUM (HFA) 12.9 GM INHALER INH SCH ×4 (01:26→19:35)
[2018-08-29] MEDS: PANTOPRAZOLE 40 MG INJ IV SCH (05:44)
[2018-08-29] MEDS: ACETAMINOPHEN 650MG/20.3ML CUP PO PRN (05:44)
--- NOTE | 2018-08-29 07:52 | CONS ---
Consult Date/Type/Reason Admit Date/Time Aug 04, 2018 at 23:10 Initial Consult Date 08/05/18 Type of Consultation: cv Requesting Provider: HARPAL AGGARWAL MD Date/Time of Note DATE: 08/29/18 TIME: 07:47 Subjective Interventional cardiology follow-up progress note/critical care Subjective: Events noted discussed with the staff and physicians Patient remains on the vent s/p trach . TELE was reviewed. No V tachycardia or V fibrillation. BP is stable now pt with no more bleeding at PEG or trach sites. she denies any cp to me now pt had no more issues with trach last night Patient complained of right foot pain. events noted s/p PCI 100% occluded LAD 08/04 S/P PCI LCX/ OM s/p trach 08/22/18 Objective: General: Obese female no acute distress HEENT: NC/AT. pupils are equal. round. NECK: . no stridor. s/p trach CV: RRR. systolic murmur; no gallop or rubs. PULM: no wheezing + diffuse rhonchi. GI: Obese SOFT, NT, ND, no rebound or guarding s/pPEG Extremity: +B/L LE edema. no clubbing. neuro: awake and follows commands Psych: Calm now rectal: deferred EKG August 06, 2018 was personally within normal sinus rhythm. T wave inversions anterior and inferior leads ECG 08/07: NSR ST T abn c/w ant/lat ischemia CXR 08/14: Nonspecific patchy bilateral pulmonary opacity, mildly improved on the right. No pneumothorax. Endotracheal tube, nasogastric tube, and right-sided PICC line remain in place. Stable mild cardiomegaly. The osseous structures are remarkable for degenerative enthesopathy of the spine. Chest x-ray done August 06 shows:No evidence for active cardiopulmonary disease. CXR 08/19: Diffuse bilateral reticular nodular infiltrates unchanged. Question bronchopneumonia versus failure. CXR 08/28/18: Allowing for support structures overlying the right base, no significant change. Left mid and bibasilar air space opacities/infiltrates are again present. Lines and tubes are stable ECHO personally reviewed Normal left ventricular cavity size. Normal left ventricular wall thickness. Ejection fraction is visually estimated at 55-65 %. Normal appearance of the mitral valve. Mitral valve is not well visualized. No mitral valve regurgitation is seen. Aortic valve not well visualized. No aortic regurgitation. Normal appearance of the tricuspid valve. Unable to obtain RVSP due to minimal presence of tricuspid regurgitation. No evidence of tricuspid regurgitation. Normal pericardium with no significant pericardial effusion. suboptimal study. Objective Vitals Vital Signs Date Temp Pulse Resp B/P (MAP) Pulse Ox O2 O2 Flow FiO2 Time Delivery Rate 08/29/18 99.0 06:36 08/29/18 90 18 147/95 100 Mechanical 06:00 (112) Ventilator 08/29/18 30 05:39 Intake and Output 08/28/18 08/28/18 08/29/18 1515:00 23:00 07:00 IntakeIntake Total 390 ml 390 ml 410 ml OutputOutput Total 20 ml 240 ml 60 ml BalanceBalance 370 ml 150 ml 350 ml Results/Medications Result Diagram: 08/29/18 0447 08/29/18 0447 Results 24 hrs Laboratory Tests Test 08/28/18 09:30 08/29/18 04:47 Hemoglobin 7.9 L 8.3 L Hematocrit 25.1 L 26.7 L White Blood Count 15.0 H Red Blood Count 2.86 L Mean Corpuscular Volume 93.4 Mean Corpuscular Hemoglobin 29.0 Mean Corpuscular Hemoglobin Concent 31.1 L Red Cell Distribution Width 16.2 H Platelet Count 183 Mean Platelet Volume 13.8 H Immature Granulocytes % 5.200 H Neutrophils % Segmented Neutrophils % (Manual) 83 H Band Neutrophils % (Manual) 1 Lymphocytes % Lymphocytes % (Manual) 11 L Monocytes % Monocytes % (Manual) 1 Eosinophils % Eosinophils % (Manual) 3 Basophils % Basophils % (Manual) 1 Nucleated Red Blood Cells % 0.0 Immature Granulocytes # 0.780 H Neutrophils # Neutrophils # (Manual) 12.5 H Band Neutrophils # 0.1 Lymphocytes (Manual) 1.6 Lymphocytes # Monocytes # Monocytes # (Manual) 0.1 L Eosinophils # Basophils # Basophils # (Manual) 0.1 H Nucleated Red Blood Cells # Platelet Estimate NORMAL Polychromasia 1+ Hypochromasia 1+ Anisocytosis 1+ Macrocytosis 1+ Sodium Level 138 Potassium Level 3.9 Chloride Level 103 Carbon Dioxide Level 27 Anion Gap 8 Blood Urea Nitrogen 66 H Creatinine 2.92 H Est Glomerular Filtrat Rate mL/min 18 L Glucose Level 113 Calcium Level 9.0 Phosphorus Level 3.6 Magnesium Level 2.5 Random Vancomycin Level 13.6 Medications Current Medications Norepinephrine 250 ml @ 1.875 mls/ hr TITRATE IV Last administered on 08/27/18 06:08; Admin Dose 3.75 MLS/HR; Start 08/04/18 at 23:15 Morphine Sulfate (morphine) 1 mg Q1H PRN IV PAIN Last administered on 08/26/18 22:51; Admin Dose 1 MG; Start 08/04/18 at 23:30 Atorvastatin Calcium (Lipitor) 80 mg DAILY@21 PO Last administered on 08/28/18 20:34; Admin Dose 80 MG; Start 08/05/18 at 21:00 Nitroglycerin/ Dextrose 250 ml @ 1.5 mls/hr TITRATE IV Last administered on 08/05/18 14:22; Admin Dose 72 MLS/HR; Start 08/05/18 at 01:00 Miscellaneous Information 1 ea NOTE XX ; Start 08/05/18 at 09:00 Acetaminophen (Tylenol Liquid) 650 mg Q4H PRN PO ELEVATED TEMPERATURE Last administered on 08/29/18at 05:44; Admin Dose 650 MG; Start 08/05/18 at 11:00 Insulin Human Regular 100 unit/ Sodium Chloride 100 ml @ 0 mls/hr PER PROTOCOL IV ; Start 08/05/18 at 12:00 Miscellaneous Information (* Miscellaneous Pharmacy Order) Treatment of Hypoglycemia: 1.BG 51... Per protocol XX ; Start 08/05/18 at 12:00 Dextrose (D50w Syringe) 25 ml Q15M PRN IV .DECREASED GLUCOSE; Start 08/05/18 at 12:00 Dextrose (D50w Syringe) 50 ml Q15M PRN IV .DECREASED GLUCOSE; Start 08/05/18 at 12:00 Fentanyl 100 ml @ 2.5 mls/hr TITRATE IV Last administered on 08/28/18 05:04; Admin Dose 9 MLS/HR; Start 08/05/18 at 12:00 Aspirin (Aspirin) 81 mg DAILY NGT Last administered on 08/28/18 08:39; Admin Dose 81 MG; Start 08/06/18 at 09:00 Multivitamins (Multivitamin) 30 ml DAILY NGT Last administered on 08/28/18 08:40; Admin Dose 30 ML; Start 08/09/18 at 09:00 Zinc Sulfate (Zinc Sulfate) 220 mg DAILY NGT Last administered on 08/28/18 08:40; Admin Dose 220 MG; Start 08/09/18 at 09:00 Folic Acid (Folic Acid) 1 mg DAILY NGT Last administered on 08/28/18 08:40; Admin Dose 1 MG; Start 08/09/18 at 09:00 Ascorbic Acid (Vitamin C) 500 mg DAILY NGT Last administered on 08/28/18 08:40; Admin Dose 500 MG; Start 08/09/18 at 09:00 Albuterol (Ventolin Hfa) 4 puff Q6HWA RESP THERAPY INH Last administered on 08/28/18 19:27; Admin Dose 4 PUFF; Start 08/09/18 at 14:00 Ipratropium [place] (Atrovent Hfa) 4 puff Q6H RESP THERAPY INH Last administered on 08/29/18 01:26; Admin Dose 4 PUFF; Start 08/09/18 at 14:00 IV Flush (NS 10 ml) 10 ml PRN PRN IV IV PROTOCOL; Start 08/11/18 at 16:30 Heparin Sodium (Porcine) (Heparin (1000 Units/ml)) 3,000 unit PRN PRN CATHETER Dialysis Last administered on 08/27/18 13:42; Admin Dose 3,000 UNIT; Start 08/12/18 at 14:30 Labetalol HCl (Labetalol) 10 mg Q4H PRN IV ELEVATED SYSTOLIC BP > 180 Last administered on 08/20/18 16:54; Admin Dose 10 MG; Start 08/14/18 at 19:00 Midazolam HCl 50 ml @ 1 mls/hr TITRATE IV Last administered on 08/20/18 00:16; Admin Dose 5 MLS/HR; Start 08/15/18 at 11:00 Hydralazine HCl (Apresoline) 20 mg Q2 PRN IV ELEVATED SYSTOLIC BP Last administered on 08/22/18 16:18; Admin Dose 20 MG; Start 08/16/18 at 08:00 Carvedilol (Coreg) 12.5 mg Q6H PO Last administered on 08/29/18 03:42; Admin Dose 12.5 MG; Start 08/17/18 at 01:00 Docusate Sodium (Colace Liquid Cup) 100 mg BID GTB Last administered on 08/28/18 08:39; Admin Dose 100 MG; Start 08/18/18 at 09:00 Clopidogrel Bisulfate (plaVIX) 75 mg DAILY NGT Last administered on 08/28/18 08:40; Admin Dose 75 MG; Start 08/18/18 at 13:30 Rifaximin (Xifaxan) 200 mg TID PO Last administered on 08/28/18 20:34; Admin Dose 200 MG; Start 08/19/18 at 13:00 Sevelamer Carbonate (Renvela) 2.4 gm WITH MEALS GTB Last administered on 08/28/18 18:39; Admin Dose 2.4 GM; Start 08/23/18 at 11:30 Ondansetron HCl (Zofran Inj) 4 mg Q4H PRN IV NAUSEA AND/OR VOMITING Last administered on 08/26/18 18:27; Admin Dose 4 MG; Start 08/23/18 at 14:30 Lactobacillus Acidophilus/ Rhamnosus (Culturelle) 1 cap TID GTB Last administered on 08/28/18 20:34; Admin Dose 1 CAP; Start 08/24/18 at 13:00 Sodium Chloride 1,000 ml @ 0 mls/hr Q0M PRN IV TO KEEP SBP ABOVE 90; Start 08/26/18 at 11:38 Albumin Human 100 ml @ 100 mls/hr WITH DIALYSIS PRN IV SBP <90 DURING DIALYSIS; Start 08/26/18 at 12:00 Sodium Chloride (NS) -To prime the dialy... DIRECTED FOR HD PRN IV HD; Start 08/26/18 at 12:00 Nitroglycerin (Nitroglycerin 2% Oint) 0.5 inch Q6 PRN TD CHEST PAIN; Start 08/27/18 at 00:30 Lorazepam (Ativan) 1 mg Q4H PRN IV ANXIETY Last administered on 08/27/18 04:14; Admin Dose 1 MG; Start 08/27/18 at 04:30 Phenylephrine HCl 250 ml @ 75 mls/hr TITRATE IV ; Start 08/27/18 at 06:30 Sodium Chloride 500 ml @ 0 mls/hr Q0M IV Last administered on 08/27/18 06:51; Admin Dose 1,000 MLS/HR; Start 08/27/18 at 06:30 Vancomycin HCl (Vanco Iv Per Pharmacy) VANCOMYCIN PER PHARMACY PER PROTOCOL XX ; Start 08/27/18 at 10:00 Cefepime HCl 50 ml @ 100 mls/hr Q24H IVPB Last administered on 08/28/18at 12:01; Admin Dose 100 MLS/HR; Start 08/27/18 at 10:30 Eye Lubricant (Artificial Tears Oph) 2 drop Q2H PRN BOTH EYES dry eyes; Start 08/28/18 at 01:30 Pantoprazole (Protonix Iv) 40 mg DAILY@06 IV Last administered on 08/29/18at 05:44; Admin Dose 40 MG; Start 08/28/18 at 06:00 Vancomycin HCl 250 ml @ 125 mls/hr ONCE IVPB ; Start 08/29/18 at 17:00; Stop 08/29/18 at 18:59 Assessment/Plan Hospital Course (Demo Recall) 1. s/p V. fib cardiac arrest 2. Acute myocardial infarction 3. Status post emergent PCI of the 100% occluded LAD as well as PTCA of the diagonal and PCI LCX/ OM 4. Diabetes 5. Respiratory failure status post intubation on the vent 6. Hypertension 7. Renal failure : acute on chronic 8. Likely history of congestive heart failure 9. Dyslipidemia 10. Encephalopathy: Clear anoxic brain injury on hypothermia protocol 11. Morbid obesity 12. Anemia 13. elevated LFT 14. fever, bacteremia pneumonia 15. Malnutrition, anasarca . 16. septic shock and bacteremia 17. oropharyngeal bleeding 18. CVA Recommendations: Continue with aspirin plavix Antibiotic management as per ID recommendation HD as per renal Vent support respiratory care as per internal medicine and pulmonary consultants. s/p Trach now cont Coreg as tolerated/needed Monitor renal function. f/u renal consult rec regarding hemodialysis PPI . Transfusion prn given her severe anemia and VA/ VF pt still has a high grade 90% proximal RCA Stenosis. WILL PLAN for PCI RCA at a later time once infection is resolved and trach issues have been resolved. but currently appears to be unstable to get out of the bed to the tracheostomy issues will start hep SQ for DVT prophylaxis CODE STATUS full code More than 35 minutes of critical care time was for management treatment is critically patient excluding any procedures Thank you for his referral. We will continue to follow along with you as needed over the weekend. LOIS JOHNSON MD [facility] LOIS JOHNSON MD Aug 29, 2018 07:52
[2018-08-29] MEDS: DOCUSATE SODIUM 10 MG/ML (10ML CUP) GTB SCH ×2 (08:03→21:13)
[2018-08-29] MEDS: MULTIVITAMINS 30 ML CUP NGT SCH (08:03)
[2018-08-29] MEDS: RIFAXIMIN 200 MG TAB PO SCH ×3 (08:03→21:13)
[2018-08-29] MEDS: LACTOBACILLUS RHAMNOSUS CAP GTB SCH ×3 (08:04→21:13)
[2018-08-29] MEDS: SEVELAMER CARBONATE 2.4 GM PKT GTB SCH ×3 (08:04→18:03)
[2018-08-29] MEDS: ASPIRIN 81 MG TAB NGT SCH (08:04)
[2018-08-29] MEDS: ZINC SULFATE 220 MG CAP NGT SCH (08:04)
[2018-08-29] MEDS: CLOPIDOGREL 75 MG TAB NGT SCH (08:04)
[2018-08-29] MEDS: FOLIC ACID 1 MG TAB NGT SCH (08:04)
[2018-08-29] MEDS: ASCORBIC ACID 500 MG TAB NGT SCH (08:04)
--- NOTE | 2018-08-29 08:19 | PN ---
DATE: 08/29/2018 SUBJECTIVE: The patient remains critically ill, on full ventilatory support. No other acute events noted. No hemoptysis, hematemesis, or hematochezia. OBJECTIVE: VITAL SIGNS: Blood pressure is 147/95, respirations 18, pulse 90, temperature 99.6. HEENT: Head is normocephalic. NECK: Supple. HEART: Regular rate. LUNGS: Show diminished breath sounds at the base. ABDOMEN: Soft, nontender to palpation. No rebound or guarding. EXTREMITIES: Negative for clubbing, cyanosis. Trace edema. DERMATOLOGIC: No rashes. MUSCULOSKELETAL: No joint effusion. NEUROLOGIC: No change in exam. MEDICATIONS: The patient's medications have been reviewed. LABORATORY DATA: Shows sodium 138, BUN 66, creatinine 2.92. CK level of 18,000. White count 15.0, hemoglobin 8.3. Platelet count is 183. MICROBIOLOGY: The patient's microbiology was reviewed. IMAGING STUDIES AND X-RAYS: Reviewed. The patient shows no evidence of DVT on Doppler ultrasound. Ankle x-ray is negative for acute fracture. ASSESSMENT AND PLAN: 1. Oligoanuric acute kidney injury with previously normal baseline creatinine. Etiology of acute ki dney injury is secondary to acute tubular necrosis. The patient currently remains dialysis dependent . There are no signs of renal recovery, continue intermittent hemodialysis. Plan is for dialysis to day. 2. Hypokalemia, improved. 3. Volume overload, improved. Continue ultrafiltration dialysis. 4. Anemia. Continue to monitor hemoglobin and hematocrit levels. We will give Epogen as needed. 5. Rhabdomyolysis. Etiology is unclear, possible medication induced. The patient's CK levels remai n elevated. Continue hemodialysis for solute clearance, may consider adjusting medications, possibly deescalating statin therapy. Monitor closely. 6. Mineral bone disorder, monitor calcium and phosphorus levels. Continue phosphate binders. 7. Ventilator-dependent respiratory failure. Vent settings and ABG was reviewed. Continue to monit or. Follow up with pulmonary. 8. Coronary artery disease with history of ST elevated myocardial infarction. The patient is status post cardiac catheterization with PCI. Continue medical management. 9. Sepsis, status post shock. The patient is completing antibiotic course. 10. Acute encephalopathy, etiology is toxic metabolic. 11. Acute cerebrovascular accident. Continue current treatment plan. 12. Dysphagia. Continue tube feeding. 13. Respiratory acidemia. ABG was reviewed. Continue to monitor. 14. Morbid obesity. 15. Status post cardiac arrest. Dictated By: BHUMI REDDY DO NR/ALLI Conf#: [id number] DID#: [id number] CC: DANIAL TUCKER MD; LAUREN GREWAL MD; HARPAL PEDROZA MD;*EndCC*
[2018-08-29] MEDS: ALBUTEROL HFA 8 GM INHALER INH SCH ×3 (08:58→19:36)
--- NOTE | 2018-08-29 09:40 | CONS ---
Assessment/Plan Assessment/Plan Assessment/Plan (Daily) Chest x-ray was reviewed from today which again showing bilateral infiltrative changes more pronounced in left lung. Ventilator setting; AC of 18, tidal volume 500, PEEP of 5, 30% FiO2. Assessment and recommendations; 1. Patient status post cardiac arrest status post acute coronary intervention with PTCA, status post tracheostomy for failure to be weaned from ventilator. Clinically doing fairly well at this point. 2. Renal failure, on hemodialysis. 3. Bilateral recurrent pneumonia, currently on appropriate antimicrobial regimen. 4. Anemia and thrombocytopenia. 5. CVA without any obvious focal neurological deficit. 6. Positional tracheostomy causing intermittent airway obstruction. Continue current supportive care. Patient getting hemodialysis at bedside. Tracheostomy to be reevaluated by cardiothoracic surgeon. Once clinically stable, patient can be transferred to rehab center. Consultation Date/Type/Reason Admit Date/Time Aug 04, 2018 at 23:10 Initial Consult Date 08/17/18 Type of Consult Pulmonary/critical care Requesting Provider: HARPAL AGGARWAL MD Date/Time of Note DATE: 08/29/18 TIME: 09:37 24 HR Interval Summary Free Text/Dictation Patient's condition is critical but stable. Remains completely awake and alert. Has remained hemodynamically stable. General exam; young female, on ventilator via tracheostomy, awake and alert. Currently in no distress. Exam/Review of Systems Exam Vitals Vital Signs Date Temp Pulse Resp B/P (MAP) Pulse Ox O2 O2 Flow FiO2 Time Delivery Rate 08/29/18 96 25 163/105 100 Mechanical 09:00 (124) Ventilator 08/29/18 30 08:40 08/29/18 99.0 06:36 Intake and Output 08/28/18 08/28/18 08/29/18 1515:00 23:00 07:00 IntakeIntake Total 390 ml 390 ml 410 ml OutputOutput Total 20 ml 240 ml 60 ml BalanceBalance 370 ml 150 ml 350 ml Exam HEENT exam; supple neck, no JVD. No lymphadenopathy. Midline trachea. No thyromegaly. Tracheostomy place. Insertion site is clean. Patient has fair dentition. No neck masses. Chest exam; diminished but clear breath sounds. S1-S2 audible, no murmurs. Regular rhythm. Abdomen exam; soft, G-tube in place. No organomegaly. Nontender. Bowel sounds audible. Extremity exam; no peripheral edema clubbing. Pulses 2+. [employer] exam; no focal deficit. Results Result Diagram: 08/29/18 0447 08/29/187 Results 24hrs Laboratory Tests Test 08/29/18 04:47 White Blood Count 15.0 H Red Blood Count 2.86 L Hemoglobin 8.3 L Hematocrit 26.7 L Mean Corpuscular Volume 93.4 Mean Corpuscular Hemoglobin 29.0 Mean Corpuscular Hemoglobin Concent 31.1 L Red Cell Distribution Width 16.2 H Platelet Count 183 Mean Platelet Volume 13.8 H Immature Granulocytes % 5.200 H Neutrophils % Segmented Neutrophils % (Manual) 83 H Band Neutrophils % (Manual) 1 Lymphocytes % Lymphocytes % (Manual) 11 L Monocytes % Monocytes % (Manual) 1 Eosinophils % Eosinophils % (Manual) 3 Basophils % Basophils % (Manual) 1 Nucleated Red Blood Cells % 0.0 Immature Granulocytes # 0.780 H Neutrophils # Neutrophils # (Manual) 12.5 H Band Neutrophils # 0.1 Lymphocytes (Manual) 1.6 Lymphocytes # Monocytes # Monocytes # (Manual) 0.1 L Eosinophils # Basophils # Basophils # (Manual) 0.1 H Nucleated Red Blood Cells # Platelet Estimate NORMAL Polychromasia 1+ Hypochromasia 1+ Anisocytosis 1+ Macrocytosis 1+ Sodium Level 138 Potassium Level 3.9 Chloride Level 103 Carbon Dioxide Level 27 Anion Gap 8 Blood Urea Nitrogen 66 H Creatinine 2.92 H Est Glomerular Filtrat Rate mL/min 18 L Glucose Level 113 Calcium Level 9.0 Phosphorus Level 3.6 Magnesium Level 2.5 Random Vancomycin Level 13.6 Medications Medication Current Medications Norepinephrine 250 ml @ 1.875 mls/ hr TITRATE IV Last administered on 08/27/18at 06:08; Admin Dose 3.75 MLS/HR; Start 08/04/18 at 23:15 Morphine Sulfate (morphine) 1 mg Q1H PRN IV PAIN Last administered on 08/26/18 22:51; Admin Dose 1 MG; Start 08/04/18 at 23:30 Atorvastatin Calcium (Lipitor) 80 mg DAILY@21 PO Last administered on 08/28/18 20:34; Admin Dose 80 MG; Start 08/05/18 at 21:00 Nitroglycerin/ Dextrose 250 ml @ 1.5 mls/hr TITRATE IV Last administered on 08/05/18at 14:22; Admin Dose 72 MLS/HR; Start 08/05/18 at 01:00 Miscellaneous Information 1 ea NOTE XX ; Start 08/05/18 at 09:00 Acetaminophen (Tylenol Liquid) 650 mg Q4H PRN PO ELEVATED TEMPERATURE Last administered on 08/29/18 05:44; Admin Dose 650 MG; Start 08/05/18 at 11:00 Insulin Human Regular 100 unit/ Sodium Chloride 100 ml @ 0 mls/hr PER PROTOCOL IV ; Start 08/05/18 at 12:00 Miscellaneous Information (* Miscellaneous Pharmacy Order) Treatment of Hypoglycemia: 1.BG 51... Per protocol XX ; Start 08/05/18 at 12:00 Dextrose (D50w Syringe) 25 ml Q15M PRN IV .DECREASED GLUCOSE; Start 08/05/18 at 12:00 Dextrose (D50w Syringe) 50 ml Q15M PRN IV .DECREASED GLUCOSE; Start 08/05/18 at 12:00 Fentanyl 100 ml @ 2.5 mls/hr TITRATE IV Last administered on 08/28/18 05:04; Admin Dose 9 MLS/HR; Start 08/05/18 at 12:00 Aspirin (Aspirin) 81 mg DAILY NGT Last administered on 08/29/18 08:04; Admin Dose 81 MG; Start 08/06/18 at 09:00 Multivitamins (Multivitamin) 30 ml DAILY NGT Last administered on 08/29/18 08:03; Admin Dose 30 ML; Start 08/09/18 at 09:00 Zinc Sulfate (Zinc Sulfate) 220 mg DAILY NGT Last administered on 08/29/18 08:04; Admin Dose 220 MG; Start 08/09/18 at 09:00 Folic Acid (Folic Acid) 1 mg DAILY NGT Last administered on 08/29/18 08:04; Admin Dose 1 MG; Start 08/09/18 at 09:00 Ascorbic Acid (Vitamin C) 500 mg DAILY NGT Last administered on 08/29/18 08:04; Admin Dose 500 MG; Start 08/09/18 at 09:00 Albuterol (Ventolin Hfa) 4 puff Q6HWA RESP THERAPY INH Last administered on 08/28/18 19:27; Admin Dose 4 PUFF; Start 08/09/18 at 14:00 Ipratropium [place] (Atrovent Hfa) 4 puff Q6H RESP THERAPY INH Last administered on 08/29/18 01:26; Admin Dose 4 PUFF; Start 08/09/18 at 14:00 IV Flush (NS 10 ml) 10 ml PRN PRN IV IV PROTOCOL; Start 08/11/18 at 16:30 Heparin Sodium (Porcine) (Heparin (1000 Units/ml)) 3,000 unit PRN PRN CATHETER Dialysis Last administered on 08/27/18 13:42; Admin Dose 3,000 UNIT; Start 08/12/18 at 14:30 Labetalol HCl (Labetalol) 10 mg Q4H PRN IV ELEVATED SYSTOLIC BP > 180 Last administered on 08/20/18 16:54; Admin Dose 10 MG; Start 08/14/18 at 19:00 Midazolam HCl 50 ml @ 1 mls/hr TITRATE IV Last administered on 08/20/18 00:16; Admin Dose 5 MLS/HR; Start 08/15/18 at 11:00 Hydralazine HCl (Apresoline) 20 mg Q2 PRN IV ELEVATED SYSTOLIC BP Last administered on 08/22/18 16:18; Admin Dose 20 MG; Start 08/16/18 at 08:00 Carvedilol (Coreg) 12.5 mg Q6H PO Last administered on 08/29/18 03:42; Admin Dose 12.5 MG; Start 08/17/18 at 01:00 Docusate Sodium (Colace Liquid Cup) 100 mg BID GTB Last administered on 08/29/18 08:03; Admin Dose 100 MG; Start 08/18/18 at 09:00 Clopidogrel Bisulfate (plaVIX) 75 mg DAILY NGT Last administered on 08/29/18 08:04; Admin Dose 75 MG; Start 08/18/18 at 13:30 Rifaximin (Xifaxan) 200 mg TID PO Last administered on 08/29/18 08:03; Admin Dose 200 MG; Start 08/19/18 at 13:00 Sevelamer Carbonate (Renvela) 2.4 gm WITH MEALS GTB Last administered on 08/29/18 08:04; Admin Dose 2.4 GM; Start 08/23/18 at 11:30 Ondansetron HCl (Zofran Inj) 4 mg Q4H PRN IV NAUSEA AND/OR VOMITING Last administered on 08/26/18at 18:27; Admin Dose 4 MG; Start 08/23/18 at 14:30 Lactobacillus Acidophilus/ Rhamnosus (Culturelle) 1 cap TID GTB Last administered on 08/29/18at 08:04; Admin Dose 1 CAP; Start 08/24/18 at 13:00 Sodium Chloride 1,000 ml @ 0 mls/hr Q0M PRN IV TO KEEP SBP ABOVE 90; Start 08/26/18 at 11:38 Albumin Human 100 ml @ 100 mls/hr WITH DIALYSIS PRN IV SBP <90 DURING DIALYSIS; Start 08/26/18 at 12:00 Sodium Chloride (NS) -To prime the dialy... DIRECTED FOR HD PRN IV HD; Start 08/26/18 at 12:00 Nitroglycerin (Nitroglycerin 2% Oint) 0.5 inch Q6 PRN TD CHEST PAIN; Start 08/27/18 at 00:30 Lorazepam (Ativan) 1 mg Q4H PRN IV ANXIETY Last administered on 08/27/18at 04:14; Admin Dose 1 MG; Start 08/27/18 at 04:30 Phenylephrine HCl 250 ml @ 75 mls/hr TITRATE IV ; Start 08/27/18 at 06:30 Sodium Chloride 500 ml @ 0 mls/hr Q0M IV Last administered on 08/27/18at 06:51; Admin Dose 1,000 MLS/HR; Start 08/27/18 at 06:30 Vancomycin HCl (Vanco Iv Per Pharmacy) VANCOMYCIN PER PHARMACY PER PROTOCOL XX ; Start 08/27/18 at 10:00 Cefepime HCl 50 ml @ 100 mls/hr Q24H IVPB Last administered on 08/28/18at 12:01; Admin Dose 100 MLS/HR; Start 08/27/18 at 10:30 Eye Lubricant (Artificial Tears Oph) 2 drop Q2H PRN BOTH EYES dry eyes; Start 08/28/18 at 01:30 Pantoprazole (Protonix Iv) 40 mg DAILY@06 IV Last administered on 08/29/18at 05: 44; Admin Dose 40 MG; Start 08/28/18 at 06:00 Vancomycin HCl 250 ml @ 125 mls/hr ONCE IVPB ; Start 08/29/18 at 17:00; Stop 08/29/18 at 18:59 Heparin Sodium (Porcine) (Heparin (5000 Units/1ml)) 5,000 unit Q8 SC ; Start 08/29/18 at 14:00 Epoetin Jarrell-epbx (RETACRIT(esrd)) 10,000 unit MoWeFr@1700 SC ; Start 08/29/18 at 17:00 MARIAA KINSEY Aug 29, 2018 09:39
--- NOTE | 2018-08-29 11:37 | PN ---
Date/Time of Note Date/Time of Note DATE: 08/29/18 TIME: 11:35 Assessment/Plan Lines/Catheters IV Catheter Type (from Nrsg): PICC Line Aguilar in Place (from Nrsg): Yes Assessment/Plan Assessment/Plan Resp failure SP Tracheostomy Trach site inspected, clean and dry no bleeding pt getting adequate volumes will monitor the trach Subjective 24 Hr Interval Summary Constitutional: no complaints Exam/Review of Systems Vital Signs Vitals Vital Signs Date Temp Pulse Resp B/P (MAP) Pulse Ox O2 O2 Flow FiO2 Time Delivery Rate 08/29/18 94 11:15 08/29/18 100 30 10:20 08/29/18 25 163/105 Mechanical 09:00 (124) Ventilator 08/29/18 99.0 06:36 Intake and Output 08/28/18 08/28/18 08/29/18 1515:00 23:00 07:00 IntakeIntake Total 390 ml 390 ml 410 ml OutputOutput Total 20 ml 240 ml 60 ml BalanceBalance 370 ml 150 ml 350 ml Exam Eyes: nl conjunctiva, EOMI, nl lids, nl sclera ENMT: nl external ears & nose, nl lips & teeth, nl nasal mucosa & septum, mucosa pink and moist Neck: supple, non-tender Respiratory: clear to auscultation, normal air movement Cardiovascular: regular rate and rhythm, nl pulses Gastrointestinal: soft, nl liver, spleen, non-tender Musculoskeletal: nl extremities to inspection, nl gait and stance Results Result Diagram: 08/29/18 0447 08/29/18 0447 KRISTOFER BAKER MD Aug 29, 2018 11:37
[2018-08-29] MEDS ORDERED: morphine LIQ (10 MG/5 ML) CUP PO PRN (12:00)
[2018-08-29] MEDS: CEFEPIME 1GM/50 ML (PMX) 50 ML IVPB SCH (12:41)
[2018-08-29] MEDS: HEPARIN 1000 UNITS/ML 10 ML INJ CATHETER PRN (12:47)
--- NOTE | 2018-08-29 13:28 | PN ---
Date/Time of Note Date/Time of Note DATE: 08/29/18 TIME: 13:26 Objective Vitals Vital Signs Date Temp Pulse Resp B/P (MAP) Pulse Ox O2 O2 Flow FiO2 Time Delivery Rate 08/29/18 97 19 136/92 100 Mechanical 13:00 (107) Ventilator 08/29/18 98.5 12:00 08/29/18 30 10:20 Intake and Output 08/28/18 08/28/18 08/29/18 1414:59 22:59 06:59 IntakeIntake Total 399 ml 390 ml 440 ml OutputOutput Total 20 ml 240 ml 60 ml BalanceBalance 379 ml 150 ml 380 ml Results Result Diagram: 08/29/187 08/29/18446 Medications Medications Current Medications Norepinephrine 250 ml @ 1.875 mls/ hr TITRATE IV Last administered on 08/27/18at 06:08; Admin Dose 3.75 MLS/HR; Start 08/04/18 at 23:15 Atorvastatin Calcium (Lipitor) 80 mg DAILY@21 PO Last administered on 08/28/18at 20:34; Admin Dose 80 MG; Start 08/05/18 at 21:00 Nitroglycerin/ Dextrose 250 ml @ 1.5 mls/hr TITRATE IV Last administered on 08/05/18at 14:22; Admin Dose 72 MLS/HR; Start 08/05/18 at 01:00 Miscellaneous Information 1 ea NOTE XX ; Start 08/05/18 at 09:00 Acetaminophen (Tylenol Liquid) 650 mg Q4H PRN PO ELEVATED TEMPERATURE Last administered on 08/29/18at 05:44; Admin Dose 650 MG; Start 08/05/18 at 11:00 Insulin Human Regular 100 unit/ Sodium Chloride 100 ml @ 0 mls/hr PER PROTOCOL IV ; Start 08/05/18 at 12:00 Miscellaneous Information (* Miscellaneous Pharmacy Order) Treatment of Hypoglycemia: 1.BG 51... Per protocol XX ; Start 08/05/18 at 12:00 Dextrose (D50w Syringe) 25 ml Q15M PRN IV .DECREASED GLUCOSE; Start 08/05/18 at 12:00 Dextrose (D50w Syringe) 50 ml Q15M PRN IV .DECREASED GLUCOSE; Start 08/05/18 at 12:00 Fentanyl 100 ml @ 2.5 mls/hr TITRATE IV Last administered on 08/28/18 05:04; Admin Dose 9 MLS/HR; Start 08/05/18 at 12:00 Aspirin (Aspirin) 81 mg DAILY NGT Last administered on 08/29/18 08:04; Admin Dose 81 MG; Start 08/06/18 at 09:00 Multivitamins (Multivitamin) 30 ml DAILY NGT Last administered on 08/29/18 08:03; Admin Dose 30 ML; Start 08/09/18 at 09:00 Zinc Sulfate (Zinc Sulfate) 220 mg DAILY NGT Last administered on 08/29/18 08:04; Admin Dose 220 MG; Start 08/09/18 at 09:00 Folic Acid (Folic Acid) 1 mg DAILY NGT Last administered on 08/29/18 08:04; Admin Dose 1 MG; Start 08/09/18 at 09:00 Ascorbic Acid (Vitamin C) 500 mg DAILY NGT Last administered on 08/29/18 08:04; Admin Dose 500 MG; Start 08/09/18 at 09:00 Albuterol (Ventolin Hfa) 4 puff Q6HWA RESP THERAPY INH Last administered on 08/29/18 13:20; Admin Dose 4 PUFF; Start 08/09/18 at 14:00 Ipratropium [place] (Atrovent Hfa) 4 puff Q6H RESP THERAPY INH Last administered on 08/29/18 13:20; Admin Dose 4 PUFF; Start 08/09/18 at 14:00 IV Flush (NS 10 ml) 10 ml PRN PRN IV IV PROTOCOL; Start 08/11/18 at 16:30 Heparin Sodium (Porcine) (Heparin (1000 Units/ml)) 3,000 unit PRN PRN CATHETER Dialysis Last administered on 08/29/18 12:47; Admin Dose 3,000 UNIT; Start 08/12/18 at 14:30 Labetalol HCl (Labetalol) 10 mg Q4H PRN IV ELEVATED SYSTOLIC BP > 180 Last administered on 08/20/18 16:54; Admin Dose 10 MG; Start 08/14/18 at 19:00 Midazolam HCl 50 ml @ 1 mls/hr TITRATE IV Last administered on 08/20/18 00:16; Admin Dose 5 MLS/HR; Start 08/15/18 at 11:00 Hydralazine HCl (Apresoline) 20 mg Q2 PRN IV ELEVATED SYSTOLIC BP Last administered on 08/22/18 16:18; Admin Dose 20 MG; Start 08/16/18 at 08:00 Carvedilol (Coreg) 12.5 mg Q6H PO Last administered on 08/29/18 12:42; Admin Dose 12.5 MG; Start 08/17/18 at 01:00 Docusate Sodium (Colace Liquid Cup) 100 mg BID GTB Last administered on 08/29/18 08:03; Admin Dose 100 MG; Start 08/18/18 at 09:00 Clopidogrel Bisulfate (plaVIX) 75 mg DAILY NGT Last administered on 08/29/18 08:04; Admin Dose 75 MG; Start 08/18/18 at 13:30 Rifaximin (Xifaxan) 200 mg TID PO Last administered on 08/29/18 12:42; Admin Dose 200 MG; Start 08/19/18 at 13:00 Sevelamer Carbonate (Renvela) 2.4 gm WITH MEALS GTB Last administered on 08/29/18 12:41; Admin Dose 2.4 GM; Start 08/23/18 at 11:30 Ondansetron HCl (Zofran Inj) 4 mg Q4H PRN IV NAUSEA AND/OR VOMITING Last administered on 08/26/18 18:27; Admin Dose 4 MG; Start 08/23/18 at 14:30 Lactobacillus Acidophilus/ Rhamnosus (Culturelle) 1 cap TID GTB Last administered on 08/29/18 12:41; Admin Dose 1 CAP; Start 08/24/18 at 13:00 Sodium Chloride 1,000 ml @ 0 mls/hr Q0M PRN IV TO KEEP SBP ABOVE 90; Start 08/26/18 at 11:38 Albumin Human 100 ml @ 100 mls/hr WITH DIALYSIS PRN IV SBP <90 DURING DIALYSIS; Start 08/26/18 at 12:00 Sodium Chloride (NS) -To prime the dialy... DIRECTED FOR HD PRN IV HD; Start 08/26/18 at 12:00 Nitroglycerin (Nitroglycerin 2% Oint) 0.5 inch Q6 PRN TD CHEST PAIN; Start 08/27/18 at 00:30 Lorazepam (Ativan) 1 mg Q4H PRN IV ANXIETY Last administered on 08/27/18at 04:14; Admin Dose 1 MG; Start 08/27/18 at 04:30 Phenylephrine HCl 250 ml @ 75 mls/hr TITRATE IV ; Start 08/27/18 at 06:30 Sodium Chloride 500 ml @ 0 mls/hr Q0M IV Last administered on 08/27/18at 06:51; Admin Dose 1,000 MLS/HR; Start 08/27/18 at 06:30 Vancomycin HCl (Vanco Iv Per Pharmacy) VANCOMYCIN PER PHARMACY PER PROTOCOL XX ; Start 08/27/18 at 10:00 Cefepime HCl 50 ml @ 100 mls/hr Q24H IVPB Last administered on 08/29/18at 12:41; Admin Dose 100 MLS/HR; Start 08/27/18 at 10:30 Eye Lubricant (Artificial Tears Oph) 2 drop Q2H PRN BOTH EYES dry eyes; Start 08/28/18 at 01:30 Vancomycin HCl 250 ml @ 125 mls/hr ONCE IVPB ; Start 08/29/18 at 17:00; Stop 08/29/18 at 18:59 Heparin Sodium (Porcine) (Heparin (5000 Units/1ml)) 5,000 unit Q8 SC ; Start 08/29/18 at 14:00 Epoetin Jarrell-epbx (RETACRIT(esrd)) 10,000 unit MoWeFr@1700 SC ; Start 08/29/18 at 17:00 Morphine Sulfate (morphine) 3 mg Q1H PRN GTB PAIN NOT RELIEVED BY OTHERS; Start 08/29/18 at 12:00 Lansoprazole (Prevacid) 30 mg DAILY@06 GTB ; Start 08/30/18 at 06:00 VTE Prophylaxis Risk score (from Nsg)>0 risk: 6 SCD applied (from Ns): Yes Lines/Catheters IV Catheter Type: Bajwa in Place: Yes Cont'd bajwa catheter reason: terminal illness/intractable pain Assessment/Plan Hospital Course Subjective Patient doing much better, back to previous baseline a few days ago, following command Objective Physical exam General: Patient is laying in bed with tracheostomy Mentation: Patient is arousable and following command Head: Normocephalic atraumatic Eyes: EOMI, pupils reactive to light Neck: Supple, nontender, midline Respiratory: Coarse to auscultation bilaterally Cardiovascular: regular rate, no obvious murmurs Gastrointestinal: non-tender to palpation, bowel sounds heard. Neurological: Able to follow commands and move all extremities although limited Skin: No new skin lesions Assessment/Plan 1. Acute hypoxic respiratory failure - Per Pulm, trach may be sitting on trach wall, doing much better now that patient's neck was repositioned - Patients mentation improved significantly after trach was adjusted, cardiothoracic surgeon was notified to possibly adjust trach, saw patient and stated no intervention needed. -Has PEG and trach 2. Acute toxic/metabolic encephalopathy-decompensated from hypercapnia, resolved -After decompensating hypoxic event earlier in the week, patient back to her pr evious baseline a few days ago of able to follow command and interact. - Neurology input appreciated and will reconsult if needed 3. Bilateral CVA - Found on MRI, likely thromboembolic secondary to cardiopulmonary arrest per neurology - Continue on aspirin/plavix and Lipitor 4. Anemia, blood loss and renal disease- stable - Hgb remains stable, transfuse as needed - PPI daily 5. Bilateral Pneumonia -Infectious disease on board, antibiotics per infectious disease 6. Septic shock secondary to PNA and bacteremia- resolved - Blood cultures and sputum culture results noted. - ID on board Hypotension, resolved -May be due secondary to respiratory events overnight -Pressors as needed Rhabdomyolysis -Nephrology on board, dialysis as needed, unsure if rhabdomyolysis is acute. 7. CAD s/p PCI x2 - Cardiology on board and appreciate recommendations. Stressed importance of continuing DAPT given recent stent placements and high risk of restenosis - s/p emergent Cath 08/05 with successful PTCA and stenting of proximal and mid LAD, PTCA of the large first diagonal and thrombectomy of the LAD - Repeat PCI on 08/07 performed with stenting to LCx - plans for stenting of RCA prior to discharge if possible 8. Renal failure on HD - Nephrology on board and appreciate recommendations. Continue HD - secondary to septic shock, ATN vs prerenal vs contrast induced nephropathy - will avoid nephrotoxic agents 9. Diabetes - A1c noted - ISS not needed 10. S/p V-fib cardiac arrest secondary to STEMI - Completed hypothermia protocol 11. Disposition -Continue monitoring for improvement, >35 minutes of critical care time spent with patient and father at bedside HARPAL PEDROZA Aug 29, 2018 13:28
--- NOTE | 2018-08-29 14:07 | CONS ---
Assessment/Plan Assessment/Plan Hospital Course (Demo Recall) Alert follows commands, looks comfortable, family at bedside. T-max 99.6. WBC 15 H&H 8.3 and 26.7 platelets 183 neutrophils 83 Chest x-ray this morning revealed similar appearance of the right basilar infiltrate Antimicrobials: Vancomycin cefepime Microbiology: Urine culture on admission grew E. coli and Proteus, blood cultures growing oxacillin sensitive staph aureus endotracheal aspirate also growing oxacillin sensitive staph aureus ear drainage preliminary growing staph aureus, repeat blood cultures 2 days ago negative Indwelling: Trach, PEG, right femoral Devan, right upper extremity PICC line Physical examination: Obese well-developed middle-aged woman who is intubated in no distress. Head atraumatic normocephalic neck is supple chest rise symmetrical breath sounds diminished bases. Heart: S1-S2. Abdomen distended. Bowel sounds hypoactive. Extremities cyanotic Assessment: 1. Sepsis, status post shock 2. Healthcare associated pneumonia 3. S/p Oxacillin sensitive staph aureus bacteremia 2 to #3 4. S/p polymicrobial UTI 5. ST elevation [place], status post stent 6. Status post V. fib arrest 7. Acute renal failure, started on hemodialysis 8. 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 Anemia and thrombocytopenia 10. Acute sinusitis and bilateral mastoiditis 11. Morbid obesity 12. Diarrhea, r/o C dif Plan: Remains stable, restarted on broad-spectrum antibiotics for pneumonia, continue vent management per pulmonary Consultation Date/Type/Reason Admit Date/Time Aug 04, 2018 at 23:10 Initial Consult Date 08/12/18 Type of Consult id Requesting Provider: HARPAL AGGARWAL MD Date/Time of Note DATE: 08/29/18 TIME: 14:07 Exam/Review of Systems Exam Vitals Vital Signs Date Temp Pulse Resp B/P (MAP) Pulse Ox O2 O2 Flow FiO2 Time Delivery Rate 08/29/18 97 19 136/92 100 Mechanical 13:00 (107) Ventilator 08/29/18 98.5 12:00 08/29/18 30 10:20 Intake and Output 08/28/18 08/28/18 08/29/18 1515:00 23:00 07:00 IntakeIntake Total 390 ml 390 ml 410 ml OutputOutput Total 20 ml 240 ml 60 ml BalanceBalance 370 ml 150 ml 350 ml Results Result Diagram: 08/29/18 0447 08/29/18 0447 Results 24hrs Laboratory Tests Test 08/29/18 04:47 08/29/18 09:56 White Blood Count 15.0 H Red Blood Count 2.86 L Hemoglobin 8.3 L Hematocrit 26.7 L Mean Corpuscular Volume 93.4 Mean Corpuscular Hemoglobin 29.0 Mean Corpuscular Hemoglobin Concent 31.1 L Red Cell Distribution Width 16.2 H Platelet Count 183 Mean Platelet Volume 13.8 H Immature Granulocytes % 5.200 H Neutrophils % Segmented Neutrophils % (Manual) 83 H Band Neutrophils % (Manual) 1 Lymphocytes % Lymphocytes % (Manual) 11 L Monocytes % Monocytes % (Manual) 1 Eosinophils % Eosinophils % (Manual) 3 Basophils % Basophils % (Manual) 1 Nucleated Red Blood Cells % 0.0 Immature Granulocytes # 0.780 H Neutrophils # Neutrophils # (Manual) 12.5 H Band Neutrophils # 0.1 Lymphocytes (Manual) 1.6 Lymphocytes # Monocytes # Monocytes # (Manual) 0.1 L Eosinophils # Basophils # Basophils # (Manual) 0.1 H Nucleated Red Blood Cells # Platelet Estimate NORMAL Polychromasia 1+ Hypochromasia 1+ Anisocytosis 1+ Macrocytosis 1+ Sodium Level 138 Potassium Level 3.9 Chloride Level 103 Carbon Dioxide Level 27 Anion Gap 8 Blood Urea Nitrogen 66 H Creatinine 2.92 H Est Glomerular Filtrat Rate mL/min 18 L Glucose Level 113 Calcium Level 9.0 Phosphorus Level 3.6 Magnesium Level 2.5 Random Vancomycin Level 13.6 Bedside Glucose 127 Medications Medication Current Medications Norepinephrine 250 ml @ 1.875 mls/ hr TITRATE IV Last administered on 08/27/18at 06:08; Admin Dose 3.75 MLS/HR; Start 08/04/18 at 23:15 Atorvastatin Calcium (Lipitor) 80 mg DAILY@21 PO Last administered on 08/28/18at 20:34; Admin Dose 80 MG; Start 08/05/18 at 21:00 Nitroglycerin/ Dextrose 250 ml @ 1.5 mls/hr TITRATE IV Last administered on at 14:22; Admin Dose 72 MLS/HR; Start 08/05/18 at 01:00 Miscellaneous Information 1 ea NOTE XX ; Start 08/05/18 at 09:00 Acetaminophen (Tylenol Liquid) 650 mg Q4H PRN PO ELEVATED TEMPERATURE Last administered on 08/29/18 05:44; Admin Dose 650 MG; Start 08/05/18 at 11:00 Insulin Human Regular 100 unit/ Sodium Chloride 100 ml @ 0 mls/hr PER PROTOCOL IV ; Start 08/05/18 at 12:00 Miscellaneous Information (* Miscellaneous Pharmacy Order) Treatment of Hypoglycemia: 1.BG 51... Per protocol XX ; Start 08/05/18 at 12:00 Dextrose (D50w Syringe) 25 ml Q15M PRN IV .DECREASED GLUCOSE; Start 08/05/18 at 12:00 Dextrose (D50w Syringe) 50 ml Q15M PRN IV .DECREASED GLUCOSE; Start 08/05/18 at 12:00 Fentanyl 100 ml @ 2.5 mls/hr TITRATE IV Last administered on 08/28/18 05:04; Admin Dose 9 MLS/HR; Start 08/05/18 at 12:00 Aspirin (Aspirin) 81 mg DAILY NGT Last administered on 08/29/18 08:04; Admin Dose 81 MG; Start 08/06/18 at 09:00 Multivitamins (Multivitamin) 30 ml DAILY NGT Last administered on 08/29/18 08:03; Admin Dose 30 ML; Start 08/09/18 at 09:00 Zinc Sulfate (Zinc Sulfate) 220 mg DAILY NGT Last administered on 08/29/18 08:04; Admin Dose 220 MG; Start 08/09/18 at 09:00 Folic Acid (Folic Acid) 1 mg DAILY NGT Last administered on 08/29/18 08:04; Admin Dose 1 MG; Start 08/09/18 at 09:00 Ascorbic Acid (Vitamin C) 500 mg DAILY NGT Last administered on 08/29/18 08:04; Admin Dose 500 MG; Start 08/09/18 at 09:00 Albuterol (Ventolin Hfa) 4 puff Q6HWA RESP THERAPY INH Last administered on 08/29/18 13:20; Admin Dose 4 PUFF; Start 08/09/18 at 14:00 Ipratropium [place] (Atrovent Hfa) 4 puff Q6H RESP THERAPY INH Last administered on 08/29/18 13:20; Admin Dose 4 PUFF; Start 08/09/18 at 14:00 IV Flush (NS 10 ml) 10 ml PRN PRN IV IV PROTOCOL; Start 08/11/18 at 16:30 Heparin Sodium (Porcine) (Heparin (1000 Units/ml)) 3,000 unit PRN PRN CATHETER Dialysis Last administered on 08/29/18 12:47; Admin Dose 3,000 UNIT; Start 08/12/18 at 14:30 Labetalol HCl (Labetalol) 10 mg Q4H PRN IV ELEVATED SYSTOLIC BP > 180 Last administered on 08/20/18 16:54; Admin Dose 10 MG; Start 08/14/18 at 19:00 Midazolam HCl 50 ml @ 1 mls/hr TITRATE IV Last administered on 08/20/18 00:16; Admin Dose 5 MLS/HR; Start 08/15/18 at 11:00 Hydralazine HCl (Apresoline) 20 mg Q2 PRN IV ELEVATED SYSTOLIC BP Last administered on 08/22/18 16:18; Admin Dose 20 MG; Start 08/16/18 at 08:00 Carvedilol (Coreg) 12.5 mg Q6H PO Last administered on 08/29/18 12:42; Admin Dose 12.5 MG; Start 08/17/18 at 01:00 Docusate Sodium (Colace Liquid Cup) 100 mg BID GTB Last administered on 08/29/18 08:03; Admin Dose 100 MG; Start 08/18/18 at 09:00 Clopidogrel Bisulfate (plaVIX) 75 mg DAILY NGT Last administered on 08/29/18 08:04; Admin Dose 75 MG; Start 08/18/18 at 13:30 Rifaximin (Xifaxan) 200 mg TID PO Last administered on 08/29/18 12:42; Admin Dose 200 MG; Start 08/19/18 at 13:00 Sevelamer Carbonate (Renvela) 2.4 gm WITH MEALS GTB Last administered on 08/29/18 12:41; Admin Dose 2.4 GM; Start 08/23/18 at 11:30 Ondansetron HCl (Zofran Inj) 4 mg Q4H PRN IV NAUSEA AND/OR VOMITING Last administered on 08/26/18 18:27; Admin Dose 4 MG; Start 08/23/18 at 14:30 Lactobacillus Acidophilus/ Rhamnosus (Culturelle) 1 cap TID GTB Last administered on 08/29/18at 12:41; Admin Dose 1 CAP; Start 08/24/18 at 13:00 Sodium Chloride 1,000 ml @ 0 mls/hr Q0M PRN IV TO KEEP SBP ABOVE 90; Start 08/26/18 at 11:38 Albumin Human 100 ml @ 100 mls/hr WITH DIALYSIS PRN IV SBP <90 DURING DIALYSIS; Start 08/26/18 at 12:00 Sodium Chloride (NS) -To prime the dialy... DIRECTED FOR HD PRN IV HD; Start 08/26/18 at 12:00 Nitroglycerin (Nitroglycerin 2% Oint) 0.5 inch Q6 PRN TD CHEST PAIN; Start 08/27/18 at 00:30 Lorazepam (Ativan) 1 mg Q4H PRN IV ANXIETY Last administered on 08/27/18at 04:14; Admin Dose 1 MG; Start 08/27/18 at 04:30 Phenylephrine HCl 250 ml @ 75 mls/hr TITRATE IV ; Start 08/27/18 at 06:30 Sodium Chloride 500 ml @ 0 mls/hr Q0M IV Last administered on 08/27/18at 06:51; Admin Dose 1,000 MLS/HR; Start 08/27/18 at 06:30 Vancomycin HCl (Vanco Iv Per Pharmacy) VANCOMYCIN PER PHARMACY PER PROTOCOL XX ; Start 08/27/18 at 10:00 Cefepime HCl 50 ml @ 100 mls/hr Q24H IVPB Last administered on 08/29/18at 12: 41; Admin Dose 100 MLS/HR; Start 08/27/18 at 10:30 Eye Lubricant (Artificial Tears Oph) 2 drop Q2H PRN BOTH EYES dry eyes; Start 08/28/18 at 01:30 Vancomycin HCl 250 ml @ 125 mls/hr ONCE IVPB ; Start 08/29/18 at 17:00; Stop 08/29/18 at 18:59 Heparin Sodium (Porcine) (Heparin (5000 Units/1ml)) 5,000 unit Q8 SC ; Start 08/29/18 at 14:00 Epoetin Jarrell-epbx (RETACRIT(esrd)) 10,000 unit MoWeFr@1700 SC ; Start 08/29/18 at 17:00 Morphine Sulfate (morphine) 3 mg Q1H PRN GTB PAIN NOT RELIEVED BY OTHERS; Start 08/29/18 at 12:00 Lansoprazole (Prevacid) 30 mg DAILY@06 GTB ; Start 08/30/18 at 06:00 WIN LUCIANO NP Aug 29, 2018 14:07
[2018-08-29] MEDS: HEPARIN 5,000 UNIT/1 ML VIAL SC SCH ×2 (14:29→21:44)
[2018-08-29] MEDS ORDERED: VANCOMYCIN 1 GM 250 ML IVPB SCH (17:00)
[2018-08-29] MEDS: EPOETIN ALFA-EPBX (ESRD) 10,000 UNIT/ML VIAL SC SCH (18:04)
[2018-08-29] MEDS: ATORVASTATIN 80 MG TAB PO SCH (21:13)
[2018-08-30] VITALS (33 sets, daily range): BP systolic 122–148; BP diastolic 78–95; PULSE 85–98; RESP 17–22
[2018-08-30] MEDS: IPRATROPIUM (HFA) 12.9 GM INHALER INH SCH ×5 (01:49→20:00)
[2018-08-30] MEDS: LANSOPRAZOLE 30 MG CAP GTB SCH (05:30)
[2018-08-30] MEDS: HEPARIN 5,000 UNIT/1 ML VIAL SC SCH ×3 (05:34→22:03)
[2018-08-30] MEDS: SEVELAMER CARBONATE 2.4 GM PKT GTB SCH ×3 (07:03→18:00)
--- NOTE | 2018-08-30 07:20 | CONS ---
Consult Date/Type/Reason Admit Date/Time Aug 04, 2018 at 23:10 Initial Consult Date 08/05/18 Type of Consultation: cv Requesting Provider: HARPAL AGGARWAL MD Date/Time of Note DATE: 08/30/18 TIME: 07:18 Subjective Interventional cardiology follow-up progress note/critical care Subjective: Events noted discussed with the staff and multiple physicians Patient remains on the vent s/p trach . TELE was reviewed. No V tachycardia or V fibrillation. BP is stable now pt with no more bleeding at PEG or trach sites. she denies any cp to me now pt had no more issues with trach last night and it was re-evaluated by Dr Wilson Patient complained of right foot pain. events noted s/p PCI 100% occluded LAD 08/04 S/P PCI LCX/ OM s/p trach 08/22/18 Objective: General: Obese female no acute distress HEENT: NC/AT. pupils are equal. round. NECK: . no stridor. s/p trach CV: RRR. systolic murmur; no gallop or rubs. PULM: no wheezing + diffuse rhonchi. GI: Obese SOFT, NT, ND, no rebound or guarding s/pPEG Extremity: +B/L LE edema. no clubbing. neuro: awake and follows commands Psych: Calm now rectal: deferred EKG August 06, 2018 was personally within normal sinus rhythm. T wave inversions anterior and inferior leads ECG 08/07: NSR ST T abn c/w ant/lat ischemia CXR 08/14: Nonspecific patchy bilateral pulmonary opacity, mildly improved on the right. No pneumothorax. Endotracheal tube, nasogastric tube, and right-sided PICC line rem ain in place. Stable mild cardiomegaly. The osseous structures are remarkable for degenerative enthesopathy of the spine. Chest x-ray done August 06 shows:No evidence for active cardiopulmonary disease. CXR 08/19: Diffuse bilateral reticular nodular infiltrates unchanged. Question bronchopneumonia versus failure. CXR 08/28/18: Allowing for support structures overlying the right base, no significant change. Left mid and bibasilar air space opacities/infiltrates are again present. Lines and tubes are stable ECHO personally reviewed Normal left ventricular cavity size. Normal left ventricular wall thickness. Ejection fraction is visually estimated at 55-65 %. Normal appearance of the mitral valve. Mitral valve is not well visualized. No mitral valve regurgitation is seen. Aortic valve not well visualized. No aortic regurgitation. Normal appearance of the tricuspid valve. Unable to obtain RVSP due to minimal presence of tricuspid regurgitation. No evidence of tricuspid regurgitation. Normal pericardium with no significant pericardial effusion. suboptimal study. Objective Vitals Vital Signs Date Temp Pulse Resp B/P (MAP) Pulse Ox O2 O2 Flow FiO2 Time Delivery Rate 08/30/18 142/87 98 Mechanical 06:00 (105) Ventilator 08/30/18 95 19 30 05:14 08/30/18 99.5 04:00 Intake and Output 08/29/18 08/29/18 08/30/18 1515:00 23:00 07:00 IntakeIntake Total 390 ml 180 ml 410 ml OutputOutput Total 2900 ml 165 ml BalanceBalance -2510 ml 180 ml 245 ml Results/Medications Result Diagram: 08/30/18 0500 08/30/18 0500 Results 24 hrs Laboratory Tests Test 08/29/18 09:56 08/30/18 05:00 Bedside Glucose 127 White Blood Count 14.7 H Red Blood Count 2.91 L Hemoglobin 8.5 L Hematocrit 27.0 L Mean Corpuscular Volume 92.8 Mean Corpuscular Hemoglobin 29.2 Mean Corpuscular Hemoglobin Concent 31.5 L Red Cell Distribution Width 16.4 H Platelet Count 179 Mean Platelet Volume 13.9 H Immature Granulocytes % 5.700 H Neutrophils % Lymphocytes % Monocytes % Eosinophils % Basophils % Nucleated Red Blood Cells % 0.0 Immature Granulocytes # 0.840 H Neutrophils # Lymphocytes # Monocytes # Eosinophils # Basophils # Nucleated Red Blood Cells # Sodium Level 136 Potassium Level 4.1 Chloride Level 102 Carbon Dioxide Level 28 Anion Gap 6 Blood Urea Nitrogen 47 H Creatinine 2.12 H Est Glomerular Filtrat Rate mL/min 26 L Glucose Level 113 Calcium Level 8.7 Phosphorus Level 3.5 Magnesium Level 2.2 Total Bilirubin 0.3 Direct Bilirubin 0.00 Indirect Bilirubin 0.3 Aspartate Amino Transf (AST/SGOT) 301 H Alanine Aminotransferase (ALT/SGPT) 102 H Alkaline Phosphatase 551 H Creatine Kinase Creatine Kinase Index Creatinine Kinase MB (Mass) 43.40 H Troponin I 3.580 *H Total Protein 6.2 Albumin 2.6 L Globulin 3.60 H Albumin/Globulin Ratio 0.72 Medications Current Medications Norepinephrine 250 ml @ 1.875 mls/ hr TITRATE IV Last administered on 08/27/18 06:08; Admin Dose 3.75 MLS/HR; Start 08/04/18 at 23:15 Atorvastatin Calcium (Lipitor) 80 mg DAILY@21 PO Last administered on 08/29/18at 21:13; Admin Dose 80 MG; Start 08/05/18 at 21:00 Nitroglycerin/ Dextrose 250 ml @ 1.5 mls/hr TITRATE IV Last administered on 08/05/18at 14:22; Admin Dose 72 MLS/HR; Start 08/05/18 at 01:00 Miscellaneous Information 1 ea NOTE XX ; Start 08/05/18 at 09:00 Acetaminophen (Tylenol Liquid) 650 mg Q4H PRN PO ELEVATED TEMPERATURE Last administered on 08/29/18at 05:44; Admin Dose 650 MG; Start 08/05/18 at 11:00 Insulin Human Regular 100 unit/ Sodium Chloride 100 ml @ 0 mls/hr PER PROTOCOL IV ; Start 08/05/18 at 12:00 Miscellaneous Information (* Miscellaneous Pharmacy Order) Treatment of Hypoglycemia: 1.BG 51... Per protocol XX ; Start 08/05/18 at 12:00 Dextrose (D50w Syringe) 25 ml Q15M PRN IV .DECREASED GLUCOSE; Start 08/05/18 at 12:00 Dextrose (D50w Syringe) 50 ml Q15M PRN IV .DECREASED GLUCOSE; Start 08/05/18 at 12:00 Fentanyl 100 ml @ 2.5 mls/hr TITRATE IV Last administered on 08/28/18at 05:04; Admin Dose 9 MLS/HR; Start 08/05/18 at 12:00 Aspirin (Aspirin) 81 mg DAILY NGT Last administered on 08/29/18 08:04; Admin Dose 81 MG; Start 08/06/18 at 09:00 Multivitamins (Multivitamin) 30 ml DAILY NGT Last administered on 08/29/18 08:03; Admin Dose 30 ML; Start 08/09/18 at 09:00 Zinc Sulfate (Zinc Sulfate) 220 mg DAILY NGT Last administered on 08/29/18at 08:04; Admin Dose 220 MG; Start 08/09/18 at 09:00 Folic Acid (Folic Acid) 1 mg DAILY NGT Last administered on 08/29/18 08:04; Admin Dose 1 MG; Start 08/09/18 at 09:00 Ascorbic Acid (Vitamin C) 500 mg DAILY NGT Last administered on 08/29/18 08:04; Admin Dose 500 MG; Start 08/09/18 at 09:00 Albuterol (Ventolin Hfa) 4 puff Q6HWA RESP THERAPY INH Last administered on 08/29/18 19:36; Admin Dose 4 PUFF; Start 08/09/18 at 14:00 Ipratropium [place] (Atrovent Hfa) 4 puff Q6H RESP THERAPY INH Last administered on 08/30/18 02:00; Admin Dose 4 PUFF; Start 08/09/18 at 14:00 IV Flush (NS 10 ml) 10 ml PRN PRN IV IV PROTOCOL; Start 08/11/18 at 16:30 Heparin Sodium (Porcine) (Heparin (1000 Units/ml)) 3,000 unit PRN PRN CATHETER Dialysis Last administered on 08/29/18 12:47; Admin Dose 3,000 UNIT; Start 08/12/18 at 14:30 Labetalol HCl (Labetalol) 10 mg Q4H PRN IV ELEVATED SYSTOLIC BP > 180 Last administered on 08/20/18 16:54; Admin Dose 10 MG; Start 08/14/18 at 19:00 Midazolam HCl 50 ml @ 1 mls/hr TITRATE IV Last administered on 08/20/18 00:16; Admin Dose 5 MLS/HR; Start 08/15/18 at 11:00 Hydralazine HCl (Apresoline) 20 mg Q2 PRN IV ELEVATED SYSTOLIC BP Last administered on 08/22/18 16:18; Admin Dose 20 MG; Start 08/16/18 at 08:00 Docusate Sodium (Colace Liquid Cup) 100 mg BID GTB Last administered on 08/29/18 21:13; Admin Dose 100 MG; Start 08/18/18 at 09:00 Clopidogrel Bisulfate (plaVIX) 75 mg DAILY NGT Last administered on 08/29/18 08:04; Admin Dose 75 MG; Start 08/18/18 at 13:30 Rifaximin (Xifaxan) 200 mg TID PO Last administered on 08/29/18 21:13; Admin Dose 200 MG; Start 08/19/18 at 13:00 Sevelamer Carbonate (Renvela) 2.4 gm WITH MEALS GTB Last administered on 08/30/18at 07:03; Admin Dose 2.4 GM; Start 08/23/18 at 11:30 Ondansetron HCl (Zofran Inj) 4 mg Q4H PRN IV NAUSEA AND/OR VOMITING Last administered on 08/26/18at 18:27; Admin Dose 4 MG; Start 08/23/18 at 14:30 Lactobacillus Acidophilus/ Rhamnosus (Culturelle) 1 cap TID GTB Last administered on 08/29/18at 21:13; Admin Dose 1 CAP; Start 08/24/18 at 13:00 Sodium Chloride 1,000 ml @ 0 mls/hr Q0M PRN IV TO KEEP SBP ABOVE 90; Start 08/26/18 at 11:38 Albumin Human 100 ml @ 100 mls/hr WITH DIALYSIS PRN IV SBP <90 DURING DIALYSIS; Start 08/26/18 at 12:00 Sodium Chloride (NS) -To prime the dialy... DIRECTED FOR HD PRN IV HD; Start 08/26/18 at 12:00 Nitroglycerin (Nitroglycerin 2% Oint) 0.5 inch Q6 PRN TD CHEST PAIN; Start 08/27/18 at 00:30 Lorazepam (Ativan) 1 mg Q4H PRN IV ANXIETY Last administered on 08/27/18at 04:14; Admin Dose 1 MG; Start 08/27/18 at 04:30 Phenylephrine HCl 250 ml @ 75 mls/hr TITRATE IV ; Start 08/27/18 at 06:30 Sodium Chloride 500 ml @ 0 mls/hr Q0M IV Last administered on 08/27/18at 06:51; Admin Dose 1,000 MLS/HR; Start 08/27/18 at 06:30 Vancomycin HCl (Vanco Iv Per Pharmacy) VANCOMYCIN PER PHARMACY PER PROTOCOL XX ; Start 08/27/18 at 10:00 Cefepime HCl 50 ml @ 100 mls/hr Q24H IVPB Last administered on 08/29/18at 12:41; Admin Dose 100 MLS/HR; Start 08/27/18 at 10:30 Eye Lubricant (Artificial Tears Oph) 2 drop Q2H PRN BOTH EYES dry eyes; Start 08/28/18 at 01:30 Heparin Sodium (Porcine) (Heparin (5000 Units/1ml)) 5,000 unit Q8 SC Last admi nistered on 08/30/18at 05:34; Admin Dose 5,000 UNIT; Start 08/29/18 at 14:00 Epoetin Jarrell-epbx (RETACRIT(esrd)) 10,000 unit MoWeFr@1700 SC Last administered on 08/29/18at 18:04; Admin Dose 10,000 UNIT; Start 08/29/18 at 17:00 Morphine Sulfate (morphine) 3 mg Q1H PRN GTB PAIN NOT RELIEVED BY OTHERS; Start 08/29/18 at 12:00 Lansoprazole (Prevacid) 30 mg DAILY@06 GTB Last administered on 08/30/18at 0 5:30; Admin Dose 30 MG; Start 08/30/18 at 06:00 Carvedilol (Coreg) 25 mg TID PO ; Start 08/30/18 at 09:00; Status UNV Assessment/Plan Hospital Course (Demo Recall) 1. s/p V. fib cardiac arrest 2. Acute myocardial infarction 3. Status post emergent PCI of the 100% occluded LAD as well as PTCA of the diagonal and PCI LCX/ OM 4. Diabetes 5. Respiratory failure status post intubation on the vent 6. Hypertension 7. Renal failure : acute on chronic 8. Likely history of congestive heart failure 9. Dyslipidemia 10. Encephalopathy: Clear anoxic brain injury on hypothermia protocol 11. Morbid obesity 12. Anemia 13. elevated LFT 14. fever, bacteremia pneumonia 15. Malnutrition, anasarca . 16. septic shock and staph aureus bacteremia 17. oropharyngeal bleeding 18. CVA Recommendations: Continue with aspirin plavix Antibiotic management as per ID recommendation. on Vanco HD as per renal Vent support respiratory care as per internal medicine and pulmonary consultants. s/p Trach now inc Coreg as tolerated/needed Monitor renal function. f/u renal consult rec regarding hemodialysis PPI . Transfusion prn given her severe anemia and NH/ VF pt still has a high grade 90% proximal RCA Stenosis. WILL PLAN for PCI RCA at a later time , probably early next week on Monday or monday once infection is resolved and trach issues have been resolved. hep SQ for DVT prophylaxis CODE STATUS full code More than 32 minutes of critical care time was for management treatment is critically patient excluding any procedures Thank you for his referral. We will continue to follow along with you as needed over the weekend. LOIS JOHNSON MD [facility] LOIS JOHNSON MD Aug 30, 2018 07:20
[2018-08-30] MEDS: ALBUTEROL HFA 8 GM INHALER INH SCH ×3 (08:02→20:00)
[2018-08-30] MEDS: LACTOBACILLUS RHAMNOSUS CAP GTB SCH ×3 (08:29→21:45)
[2018-08-30] MEDS: ZINC SULFATE 220 MG CAP NGT SCH (08:29)
[2018-08-30] MEDS: CLOPIDOGREL 75 MG TAB NGT SCH (08:30)
[2018-08-30] MEDS: ASCORBIC ACID 500 MG TAB NGT SCH (08:30)
[2018-08-30] MEDS: FOLIC ACID 1 MG TAB NGT SCH (08:30)
[2018-08-30] MEDS: ASPIRIN 81 MG TAB NGT SCH (08:30)
[2018-08-30] MEDS: RIFAXIMIN 200 MG TAB PO SCH ×3 (08:30→21:44)
[2018-08-30] MEDS: MULTIVITAMINS 30 ML CUP NGT SCH (08:30)
[2018-08-30] MEDS: DOCUSATE SODIUM 10 MG/ML (10ML CUP) GTB SCH ×2 (08:31→21:44)
--- NOTE | 2018-08-30 08:35 | PN ---
DATE: 08/30/2018 SUBJECTIVE: The patient had hemodialysis yesterday, tolerated it well. No other events noted. The patient is more alert. OBJECTIVE: VITAL SIGNS: Blood pressure is 142/87, respiration 19, pulse 95, temperature 98.5. HEENT: Head is normocephalic. NECK: Supple. HEART: Regular rate. LUNGS: Show diminished breath sounds at the base. ABDOMEN: Soft, nontender to palpation without rebound or guarding. EXTREMITIES: Negative for clubbing, cyanosis. Trace edema. DERMATOLOGIC: No rashes. MUSCULOSKELETAL: No joint effusion. NEUROLOGIC: No change in exam. MEDICATIONS: Reviewed. LABORATORY DATA: From 08/30/2018 was reviewed. Cultures were reviewed. IMAGING STUDIES: Reviewed. ASSESSMENT AND PLAN: 1. Anuric acute kidney injury with previously normal baseline creatinine. Etiology of acute kidney injury is secondary to acute tubular necrosis. The patient remains dialysis dependent. Plan is to c ontinue intermittent dialysis. Plan for dialysis tomorrow. We will also discuss with Dr. Wilson for placement of a Perm-A-Cath. 2. Volume overload, improved. Continue ultrafiltration dialysis. 3. Anemia. Continue to monitor hemoglobin and hematocrit levels. Continue Epogen. 4. Rhabdomyolysis, improving. CK levels have improved. Continue to monitor. Continue dialysis for solute clearance. 5. Mineral bone disorder, monitor calcium and phosphorus levels. 6. Ventilatory respiratory failure. Vent settings and ABG was reviewed. Continue to monitor, follo wup with pulmonary. 7. Coronary artery disease with ST elevated myocardial infarction. The patient is status post cardi ac catheterization with PCI. Continue medical management. 8. Sepsis secondary to shock. The patient is completing antibiotic course. 9. Acute encephalopathy, etiology is toxic metabolic. 10. Acute cerebrovascular accident. Continue current treatment plan. 11. Dysphagia. Continue tube feeding. 12. Morbid obesity. 13. Status post cardiac arrest. Dictated By: BHUMI REDDY DO NR/NTS Conf#: [id number] DID#: [id number] CC: DANIAL TUCKER MD;*EndCC*
--- NOTE | 2018-08-30 08:49 | CONS ---
Assessment/Plan Assessment/Plan Assessment/Plan (Daily) Ventilator setting; AC of 18, tidal volume 500, PEEP of 5, 30% FiO2. Assessment and recommendations; 1. Patient status post cardiac arrest status post emergent coronary angiography with stenting. 2. Failure to be weaned from ventilator, status post tracheostomy. 3. Bilateral pneumonia. Recurrent. 4. Mild anemia and thrombocytopenia. 5. Diabetes. 6. Hypertension. Continue current supportive care. Obtain follow-up chest x-ray in 24 hours. Consider transfer to rehab center. Consultation Date/Type/Reason Admit Date/Time Aug 04, 2018 at 23:10 Initial Consult Date 08/17/18 Type of Consult Pulmonary/critical care Requesting Provider: HARPAL AGGARWAL MD Date/Time of Note DATE: 08/30/18 TIME: 08:41 24 HR Interval Summary Free Text/Dictation Patient's condition is stable. Remains completely awake and alert. Has remained hemodynamically stable. General exam; young female, awake alert, currently no distress. On ventilator via tracheostomy. Exam/Review of Systems Exam Vitals Vital Signs Date Temp Pulse Resp B/P (MAP) Pulse Ox O2 O2 Flow FiO2 Time Delivery Rate 08/30/18 142/87 98 Mechanical 06:00 (105) Ventilator 08/30/18 95 19 30 05:14 08/30/18 99.5 04:00 Intake and Output 08/29/18 08/29/18 08/30/18 1515:00 23:00 07:00 IntakeIntake Total 390 ml 180 ml 410 ml OutputOutput Total 2900 ml 165 ml BalanceBalance -2510 ml 180 ml 245 ml Exam H EENT exam; supple neck, no JVD. No lymphadenopathy. Midline trachea. No thyromegaly. Patient has fair dentition. Tracheostomy in place. Insertion site is clean. Chest exam; diminished breath sounds bilaterally without any added sounds. S1- S2 audible, no murmurs. Regular rhythm. Abdomen exam; soft, no organomegaly. G-tube in place. Bowel sounds audible. Extremity exam; peripheral edema clubbing. HEAD WAITRESS exam; no focal deficit. Results Result Diagram: 08/30/18 0500 08/30/18 0500 Results 24hrs Laboratory Tests Test 08/29/18 09:56 08/30/18 05:00 Bedside Glucose 127 White Blood Count 14.7 H Red Blood Count 2.91 L Hemoglobin 8.5 L Hematocrit 27.0 L Mean Corpuscular Volume 92.8 Mean Corpuscular Hemoglobin 29.2 Mean Corpuscular Hemoglobin Concent 31.5 L Red Cell Distribution Width 16.4 H Platelet Count 179 Mean Platelet Volume 13.9 H Immature Granulocytes % 5.700 H Neutrophils % Segmented Neutrophils % (Manual) 79 H Lymphocytes % Lymphocytes % (Manual) 8 L Reactive Lymphocytes % (Manual) 1 H Monocytes % Monocytes % (Manual) 7 Eosinophils % Eosinophils % (Manual) 2 Basophils % Metamyelocytes % (manual) 2 H Myelocytes % (Manual) 1 H Nucleated Red Blood Cells % 0.0 Immature Granulocytes # 0.840 H Neutrophils # Lymphocytes (Manual) 1.1 Lymphocytes # Reactive Lymphocytes # 0.1 H Monocytes # Monocytes # (Manual) 1.0 H Eosinophils # Basophils # Metamyelocytes # 0.2 H Myelocytes # 0.1 H Nucleated Red Blood Cells # Platelet Estimate NORMAL Giant Platelets 2 H Polychromasia 3+ Anisocytosis 1+ Sodium Level 136 Potassium Level 4.1 Chloride Level 102 Carbon Dioxide Level 28 Anion Gap 6 Blood Urea Nitrogen 47 H Creatinine 2.12 H Est Glomerular Filtrat Rate mL/min 26 L Glucose Level 113 Calcium Level 8.7 Phosphorus Level 3.5 Magnesium Level 2.2 Total Bilirubin 0.3 Direct Bilirubin 0.00 Indirect Bilirubin 0.3 Aspartate Amino Transf (AST/SGOT) 301 H Alanine Aminotransferase (ALT/SGPT) 102 H Alkaline Phosphatase 551 H Creatine Kinase Creatine Kinase Index Creatinine Kinase MB (Mass) 43.40 H Troponin I 3.580 *H Total Protein 6.2 Albumin 2.6 L Globulin 3.60 H Albumin/Globulin Ratio 0.72 Medications Medication Current Medications Norepinephrine 250 ml @ 1.875 mls/ hr TITRATE IV Last administered on 08/27/18at 06:08; Admin Dose 3.75 MLS/HR; Start 08/04/18 at 23:15 Atorvastatin Calcium (Lipitor) 80 mg DAILY@21 PO Last administered on 08/29/18at 21:13; Admin Dose 80 MG; Start 08/05/18 at 21:00 Nitroglycerin/ Dextrose 250 ml @ 1.5 mls/hr TITRATE IV Last administered on 08/05/18at 14:22; Admin Dose 72 MLS/HR; Start 08/05/18 at 01:00 Miscellaneous Information 1 ea NOTE XX ; Start 08/05/18 at 09:00 Acetaminophen (Tylenol Liquid) 650 mg Q4H PRN PO ELEVATED TEMPERATURE Last administered on 08/29/18 05:44; Admin Dose 650 MG; Start 08/05/18 at 11:00 Insulin Human Regular 100 unit/ Sodium Chloride 100 ml @ 0 mls/hr PER PROTOCOL IV ; Start 08/05/18 at 12:00 Miscellaneous Information (* Miscellaneous Pharmacy Order) Treatment of Hypoglycemia: 1.BG 51... Per protocol XX ; Start 08/05/18 at 12:00 Dextrose (D50w Syringe) 25 ml Q15M PRN IV .DECREASED GLUCOSE; Start 08/05/18 at 12:00 Dextrose (D50w Syringe) 50 ml Q15M PRN IV .DECREASED GLUCOSE; Start 08/05/18 at 12:00 Fentanyl 100 ml @ 2.5 mls/hr TITRATE IV Last administered on 08/28/18 05:04; Admin Dose 9 MLS/HR; Start 08/05/18 at 12:00 Aspirin (Aspirin) 81 mg DAILY NGT Last administered on 08/30/18 08:30; Admin Dose 81 MG; Start 08/06/18 at 09:00 Multivitamins (Multivitamin) 30 ml DAILY NGT Last administered on 08/30/18 08:30; Admin Dose 30 ML; Start 08/09/18 at 09:00 Zinc Sulfate (Zinc Sulfate) 220 mg DAILY NGT Last administered on 08/30/18 08:29; Admin Dose 220 MG; Start 08/09/18 at 09:00 Folic Acid (Folic Acid) 1 mg DAILY NGT Last administered on 08/30/18 08:30; Admin Dose 1 MG; Start 08/09/18 at 09:00 Ascorbic Acid (Vitamin C) 500 mg DAILY NGT Last administered on 08/30/18 08:30; Admin Dose 500 MG; Start 08/09/18 at 09:00 Albuterol (Ventolin Hfa) 4 puff Q6HWA RESP THERAPY INH Last administered on 08/30/18 08:02; Admin Dose 4 PUFF; Start 08/09/18 at 14:00 Ipratropium [place] (Atrovent Hfa) 4 puff Q6H RESP THERAPY INH Last administered on 08/30/18 08:02; Admin Dose 4 PUFF; Start 08/09/18 at 14:00 IV Flush (NS 10 ml) 10 ml PRN PRN IV IV PROTOCOL; Start 08/11/18 at 16:30 Heparin Sodium (Porcine) (Heparin (1000 Units/ml)) 3,000 unit PRN PRN CATHETER Dialysis Last administered on 08/29/18 12:47; Admin Dose 3,000 UNIT; Start 08/12/18 at 14:30 Labetalol HCl (Labetalol) 10 mg Q4H PRN IV ELEVATED SYSTOLIC BP > 180 Last administered on 08/20/18 16:54; Admin Dose 10 MG; Start 08/14/18 at 19:00 Midazolam HCl 50 ml @ 1 mls/hr TITRATE IV Last administered on 08/20/18 00:16; Admin Dose 5 MLS/HR; Start 08/15/18 at 11:00 Hydralazine HCl (Apresoline) 20 mg Q2 PRN IV ELEVATED SYSTOLIC BP Last administered on 08/22/18 16:18; Admin Dose 20 MG; Start 08/16/18 at 08:00 Docusate Sodium (Colace Liquid Cup) 100 mg BID GTB Last administered on 08/29/18 21:13; Admin Dose 100 MG; Start 08/18/18 at 09:00 Clopidogrel Bisulfate (plaVIX) 75 mg DAILY NGT Last administered on 08/30/18 08:30; Admin Dose 75 MG; Start 08/18/18 at 13:30 Rifaximin (Xifaxan) 200 mg TID PO Last administered on 08/30/18 08:30; Admin Dose 200 MG; Start 08/19/18 at 13:00 Sevelamer Carbonate (Renvela) 2.4 gm WITH MEALS GTB Last administered on 08/30/18 07:03; Admin Dose 2.4 GM; Start 08/23/18 at 11:30 Ondansetron HCl (Zofran Inj) 4 mg Q4H PRN IV NAUSEA AND/OR VOMITING Last administered on 08/26/18 18:27; Admin Dose 4 MG; Start 08/23/18 at 14:30 Lactobacillus Acidophilus/ Rhamnosus (Culturelle) 1 cap TID GTB Last administered on 08/30/18 08:29; Admin Dose 1 CAP; Start 08/24/18 at 13:00 Sodium Chloride 1,000 ml @ 0 mls/hr Q0M PRN IV TO KEEP SBP ABOVE 90; Start 08/26/18 at 11:38 Albumin Human 100 ml @ 100 mls/hr WITH DIALYSIS PRN IV SBP <90 DURING DIALYSIS; Start 08/26/18 at 12:00 Sodium Chloride (NS) -To prime the dialy... DIRECTED FOR HD PRN IV HD; Start 08/26/18 at 12:00 Nitroglycerin (Nitroglycerin 2% Oint) 0.5 inch Q6 PRN TD CHEST PAIN; Start 08/27/18 at 00:30 Lorazepam (Ativan) 1 mg Q4H PRN IV ANXIETY Last administered on 08/27/18at 04:14; Admin Dose 1 MG; Start 08/27/18 at 04:30 Phenylephrine HCl 250 ml @ 75 mls/hr TITRATE IV ; Start 08/27/18 at 06:30 Sodium Chloride 500 ml @ 0 mls/hr Q0M IV Last administered on 08/27/18at 06:51; Admin Dose 1,000 MLS/HR; Start 08/27/18 at 06:30 Vancomycin HCl (Vanco Iv Per Pharmacy) VANCOMYCIN PER PHARMACY PER PROTOCOL XX ; Start 08/27/18 at 10:00 Cefepime HCl 50 ml @ 100 mls/hr Q24H IVPB Last administered on 08/29/18at 12:41; Admin Dose 100 MLS/HR; Start 08/27/18 at 10:30 Eye Lubricant (Artificial Tears Oph) 2 drop Q2H PRN BOTH EYES dry eyes; Start 08/28/18 at 01:30 Heparin Sodium (Porcine) (Heparin (5000 Units/1ml)) 5,000 unit Q8 SC Last administered on 08/30/18at 05:34; Admin Dose 5,000 UNIT; Start 08/29/18 at 14:00 Epoetin Jarrell-epbx (RETACRIT(esrd)) 10,000 unit MoWeFr@1700 SC Last administered on 08/29/18at 18:04; Admin Dose 10,000 UNIT; Start 08/29/18 at 17:00 Morphine Sulfate (morphine) 3 mg Q1H PRN GTB PAIN NOT RELIEVED BY OTHERS; Star t 08/29/18 at 12:00 Lansoprazole (Prevacid) 30 mg DAILY@06 GTB Last administered on 08/30/18at 05:30; Admin Dose 30 MG; Start 08/30/18 at 06:00 Carvedilol (Coreg) 25 mg TID PO Last administered on 08/30/18at 08:30; Admin Dose 25 MG; Start 08/30/18 at 09:00 MARIAA KINSEY Aug 30, 2018 08:49
--- NOTE | 2018-08-30 09:19 | CONS ---
Assessment/Plan Assessment/Plan Assessment/Plan (Daily) My prior note was incorrect please disregard, wrong patient Consultation Date/Type/Reason Admit Date/Time Aug 04, 2018 at 23:10 Initial Consult Date 08/15/18 Requesting Provider: HARPAL AGGARWAL MD Date/Time of Note DATE: 08/30/18 TIME: 09:18 Exam/Review of Systems Exam Vitals Vital Signs Date Temp Pulse Resp B/P (MAP) Pulse Ox O2 O2 Flow FiO2 Time Delivery Rate 08/30/18 96 08:00 08/30/18 30 08:00 08/30/18 98.5 22 146/87 100 08:00 (106) 08/30/18 Mechanical 07:00 Ventilator Intake and Output 08/29/18 08/29/18 08/30/18 1515:00 23:00 07:00 IntakeIntake Total 390 ml 180 ml 410 ml OutputOutput Total 2900 ml 165 ml BalanceBalance -2510 ml 180 ml 245 ml Results Result Diagram: 08/30/18 0500 08/30/18 0500 Results 24hrs Laboratory Tests Test 08/29/18 09:56 08/30/18 05:00 Bedside Glucose 127 White Blood Count 14.7 H Red Blood Count 2.91 L Hemoglobin 8.5 L Hematocrit 27.0 L Mean Corpuscular Volume 92.8 Mean Corpuscular Hemoglobin 29.2 Mean Corpuscular Hemoglobin Concent 31.5 L Red Cell Distribution Width 16.4 H Platelet Count 179 Mean Platelet Volume 13.9 H Immature Granulocytes % 5.700 H Neutrophils % Segmented Neutrophils % (Manual) 79 H Lymphocytes % Lymphocytes % (Manual) 8 L Reactive Lymphocytes % (Manual) 1 H Monocytes % Monocytes % (Manual) 7 Eosinophils % Eosinophils % (Manual) 2 Basophils % Metamyelocytes % (manual) 2 H Myelocytes % (Manual) 1 H Nucleated Red Blood Cells % 0.0 Immature Granulocytes # 0.840 H Neutrophils # Lymphocytes (Manual) 1.1 Lymphocytes # Reactive Lymphocytes # 0.1 H Monocytes # Monocytes # (Manual) 1.0 H Eosinophils # Basophils # Metamyelocytes # 0.2 H Myelocytes # 0.1 H Nucleated Red Blood Cells # Platelet Estimate NORMAL Giant Platelets 2 H Polychromasia 3+ Anisocytosis 1+ Sodium Level 136 Potassium Level 4.1 Chloride Level 102 Carbon Dioxide Level 28 Anion Gap 6 Blood Urea Nitrogen 47 H Creatinine 2.12 H Est Glomerular Filtrat Rate mL/min 26 L Glucose Level 113 Calcium Level 8.7 Phosphorus Level 3.5 Magnesium Level 2.2 Total Bilirubin 0.3 Direct Bilirubin 0.00 Indirect Bilirubin 0.3 Aspartate Amino Transf (AST/SGOT) 301 H Alanine Aminotransferase (ALT/SGPT) 102 H Alkaline Phosphatase 551 H Creatine Kinase Creatine Kinase Index Creatinine Kinase MB (Mass) 43.40 H Troponin I 3.580 *H Total Protein 6.2 Albumin 2.6 L Globulin 3.60 H Albumin/Globulin Ratio 0.72 Medications Medication Current Medications Norepinephrine 250 ml @ 1.875 mls/ hr TITRATE IV Last administered on 08/27/18at 06:08; Admin Dose 3.75 MLS/HR; Start 08/04/18 at 23:15 Atorvastatin Calcium (Lipitor) 80 mg DAILY@21 PO Last administered on 08/29/18at 21:13; Admin Dose 80 MG; Start 08/05/18 at 21:00 Nitroglycerin/ Dextrose 250 ml @ 1.5 mls/hr TITRATE IV Last administered on 08/05/18at 14:22; Admin Dose 72 MLS/HR; Start 08/05/18 at 01:00 Miscellaneous Information 1 ea NOTE XX ; Start 08/05/18 at 09:00 Acetaminophen (Tylenol Liquid) 650 mg Q4H PRN PO ELEVATED TEMPERATURE Last administered on 08/29/18at 05:44; Admin Dose 650 MG; Start 08/05/18 at 11:00 Insulin Human Regular 100 unit/ Sodium Chloride 100 ml @ 0 mls/hr PER PROTOCOL IV ; Start 08/05/18 at 12:00 Miscellaneous Information (* Miscellaneous Pharmacy Order) Treatment of Hypoglycemia: 1.BG 51... Per protocol XX ; Start 08/05/18 at 12:00 Dextrose (D50w Syringe) 25 ml Q15M PRN IV .DECREASED GLUCOSE; Start 08/05/18 at 12:00 Dextrose (D50w Syringe) 50 ml Q15M PRN IV .DECREASED GLUCOSE; Start 08/05/18 at 12:00 Fentanyl 100 ml @ 2.5 mls/hr TITRATE IV Last administered on 08/28/18at 05:04; Admin Dose 9 MLS/HR; Start 08/05/18 at 12:00 Aspirin (Aspirin) 81 mg DAILY NGT Last administered on 08/30/18 08:30; Admin Dose 81 MG; Start 08/06/18 at 09:00 Multivitamins (Multivitamin) 30 ml DAILY NGT Last administered on 08/30/18 08: 30; Admin Dose 30 ML; Start 08/09/18 at 09:00 Zinc Sulfate (Zinc Sulfate) 220 mg DAILY NGT Last administered on 08/30/18 08:29; Admin Dose 220 MG; Start 08/09/18 at 09:00 Folic Acid (Folic Acid) 1 mg DAILY NGT Last administered on 08/30/18 08:30; Admin Dose 1 MG; Start 08/09/18 at 09:00 Ascorbic Acid (Vitamin C) 500 mg DAILY NGT Last administered on 08/30/18 08:30; Admin Dose 500 MG; Start 08/09/18 at 09:00 Albuterol (Ventolin Hfa) 4 puff Q6HWA RESP THERAPY INH Last administered on 08/30/18 08:02; Admin Dose 4 PUFF; Start 08/09/18 at 14:00 Ipratropium [place] (Atrovent Hfa) 4 puff Q6H RESP THERAPY INH Last administered on 08/30/18 08:02; Admin Dose 4 PUFF; Start 08/09/18 at 14:00 IV Flush (NS 10 ml) 10 ml PRN PRN IV IV PROTOCOL; Start 08/11/18 at 16:30 Heparin Sodium (Porcine) (Heparin (1000 Units/ml)) 3,000 unit PRN PRN CATHETER Dialysis Last administered on 08/29/18 12:47; Admin Dose 3,000 UNIT; Start 08/12/18 at 14:30 Labetalol HCl (Labetalol) 10 mg Q4H PRN IV ELEVATED SYSTOLIC BP > 180 Last administered on 08/20/18 16:54; Admin Dose 10 MG; Start 08/14/18 at 19:00 Midazolam HCl 50 ml @ 1 mls/hr TITRATE IV Last administered on 08/20/18 00:16; Admin Dose 5 MLS/HR; Start 08/15/18 at 11:00 Hydralazine HCl (Apresoline) 20 mg Q2 PRN IV ELEVATED SYSTOLIC BP Last adm inistered on 08/22/18 16:18; Admin Dose 20 MG; Start 08/16/18 at 08:00 Docusate Sodium (Colace Liquid Cup) 100 mg BID GTB Last administered on 08/29/18at 21:13; Admin Dose 100 MG; Start 08/18/18 at 09:00 Clopidogrel Bisulfate (plaVIX) 75 mg DAILY NGT Last administered on 08/30/18at 08:30; Admin Dose 75 MG; Start 08/18/18 at 13:30 Rifaximin (Xifaxan) 200 mg TID PO Last administered on 08/30/18at 08:30; Admin Dose 200 MG; Start 08/19/18 at 13:00 Sevelamer Carbonate (Renvela) 2.4 gm WITH MEALS GTB Last administered on 08/30/18at 07:03; Admin Dose 2.4 GM; Start 08/23/18 at 11:30 Ondansetron HCl (Zofran Inj) 4 mg Q4H PRN IV NAUSEA AND/OR VOMITING Last administered on 08/26/18at 18:27; Admin Dose 4 MG; Start 08/23/18 at 14:30 Lactobacillus Acidophilus/ Rhamnosus (Culturelle) 1 cap TID GTB Last ad ministered on 08/30/18at 08:29; Admin Dose 1 CAP; Start 08/24/18 at 13:00 Sodium Chloride 1,000 ml @ 0 mls/hr Q0M PRN IV TO KEEP SBP ABOVE 90; Start 08/26/18 at 11:38 Albumin Human 100 ml @ 100 mls/hr WITH DIALYSIS PRN IV SBP <90 DURING DIALYSIS; Start 08/26/18 at 12:00 Sodium Chloride (NS) -To prime the dialy... DIRECTED FOR HD PRN IV HD; Start 08/26/18 at 12:00 Nitroglycerin (Nitroglycerin 2% Oint) 0.5 inch Q6 PRN TD CHEST PAIN; Start 08/27/18 at 00:30 Lorazepam (Ativan) 1 mg Q4H PRN IV ANXIETY Last administered on 08/27/18at 04:14; Admin Dose 1 MG; Start 08/27/18 at 04:30 Phenylephrine HCl 250 ml @ 75 mls/hr TITRATE IV ; Start 08/27/18 at 06:30 Sodium Chloride 500 ml @ 0 mls/hr Q0M IV Last administered on 08/27/18 06:51; Admin Dose 1,000 MLS/HR; Start 08/27/18 at 06:30 Vancomycin HCl (Vanco Iv Per Pharmacy) VANCOMYCIN PER PHARMACY PER PROTOCOL XX ; Start 08/27/18 at 10:00 Cefepime HCl 50 ml @ 100 mls/hr Q24H IVPB Last administered on 08/29/18at 12:41; Admin Dose 100 MLS/HR; Start 08/27/18 at 10:30 Eye Lubricant (Artificial Tears Oph) 2 drop Q2H PRN BOTH EYES dry eyes; Start 08/28/18 at 01:30 Heparin Sodium (Porcine) (Heparin (5000 Units/1ml)) 5,000 unit Q8 SC Last administered on 08/30/18 05:34; Admin Dose 5,000 UNIT; Start 08/29/18 at 14:00 Epoetin Jarrell-epbx (RETACRIT(esrd)) 10,000 unit MoWeFr@1700 SC Last administered on 08/29/18at 18:04; Admin Dose 10,000 UNIT; Start 08/29/18 at 17:00 Morphine Sulfate (morphine) 3 mg Q1H PRN GTB PAIN NOT RELIEVED BY OTHERS; Start 08/29/18 at 12:00 Lansoprazole (Prevacid) 30 mg DAILY@06 GTB Last administered on 08/30/18 05:30; Admin Dose 30 MG; Start 08/30/18 at 06:00 Carvedilol (Coreg) 25 mg TID PO Last administered on 08/30/18 08:30; Admin Dose 25 MG; Start 08/30/18 at 09:00 TIEN HENRY Aug 30, 2018 09:18
--- NOTE | 2018-08-30 09:20 | CONS ---
Consultation Date/Type/Reason Admit Date/Time Aug 04, 2018 at 23:10 Initial Consult Date 08/15/18 Requesting Provider: AHRPAL AGGARWAL MD Date/Time of Note DATE: 08/30/18 TIME: 09:20 24 HR Interval Summary Free Text/Dictation Patient continued to improve, she smiles she follows simple commands she is off pressors FiO2 down to 30% she is trached. Overall prognosis is improved Exam/Review of Systems Exam Vitals Vital Signs Date Temp Pulse Resp B/P (MAP) Pulse Ox O2 O2 Flow FiO2 Time Delivery Rate 08/30/18 96 08:00 08/30/18 30 08:00 08/30/18 98.5 22 146/87 100 08:00 (106) 08/30/18 Mechanical 07:00 Ventilator Intake and Output 08/29/18 08/29/18 08/30/18 1515:00 23:00 07:00 IntakeIntake Total 390 ml 180 ml 410 ml OutputOutput Total 2900 ml 165 ml BalanceBalance -2510 ml 180 ml 245 ml Constitutional: other (Follow simple commands tries to smile) Eyes: nl conjunctiva, EOMI, nl lids, nl sclera, PERRL ENMT: nl external ears & nose, nl lips & teeth, nl nasal mucosa & septum Neck: supple, non-tender Respiratory: clear to auscultation, normal air movement; No congested cough, No crackles/rales, No diminished breath sounds, No intercostal retraction, No labored breathing, No respirations, No tactile fremitus, No wheezing, No other Neurological: LOGISTICS 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 ENGINEER II-XII 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, nl mental status, lethargic Results Result Diagram: 08/30/18 0500 08/30/18 0500 Results 24hrs Laboratory Tests Test 08/29/18 09:56 08/30/18 05:00 Bedside Glucose 127 White Blood Count 14.7 H Red Blood Count 2.91 L Hemoglobin 8.5 L Hematocrit 27.0 L Mean Corpuscular Volume 92.8 Mean Corpuscular Hemoglobin 29.2 Mean Corpuscular Hemoglobin Concent 31.5 L Red Cell Distribution Width 16.4 H Platelet Count 179 Mean Platelet Volume 13.9 H Immature Granulocytes % 5.700 H Neutrophils % Segmented Neutrophils % (Manual) 79 H Lymphocytes % Lymphocytes % (Manual) 8 L Reactive Lymphocytes % (Manual) 1 H Monocytes % Monocytes % (Manual) 7 Eosinophils % Eosinophils % (Manual) 2 Basophils % Metamyelocytes % (manual) 2 H Myelocytes % (Manual) 1 H Nucleated Red Blood Cells % 0.0 Immature Granulocytes # 0.840 H Neutrophils # Lymphocytes (Manual) 1.1 Lymphocytes # Reactive Lymphocytes # 0.1 H Monocytes # Monocytes # (Manual) 1.0 H Eosinophils # Basophils # Metamyelocytes # 0.2 H Myelocytes # 0.1 H Nucleated Red Blood Cells # Platelet Estimate NORMAL Giant Platelets 2 H Polychromasia 3+ Anisocytosis 1+ Sodium Level 136 Potassium Level 4.1 Chloride Level 102 Carbon Dioxide Level 28 Anion Gap 6 Blood Urea Nitrogen 47 H Creatinine 2.12 H Est Glomerular Filtrat Rate mL/min 26 L Glucose Level 113 Calcium Level 8.7 Phosphorus Level 3.5 Magnesium Level 2.2 Total Bilirubin 0.3 Direct Bilirubin 0.00 Indirect Bilirubin 0.3 Aspartate Amino Transf (AST/SGOT) 301 H Alanine Aminotransferase (ALT/SGPT) 102 H Alkaline Phosphatase 551 H Creatine Kinase Creatine Kinase Index Creatinine Kinase MB (Mass) 43.40 H Troponin I 3.580 *H Total Protein 6.2 Albumin 2.6 L Globulin 3.60 H Albumin/Globulin Ratio 0.72 Medications Medication Current Medications Norepinephrine 250 ml @ 1.875 mls/ hr TITRATE IV Last administered on 08/27/18at 06:08; Admin Dose 3.75 MLS/HR; Start 08/04/18 at 23:15 Atorvastatin Calcium (Lipitor) 80 mg DAILY@21 PO Last administered on 08/29/18at 21:13; Admin Dose 80 MG; Start 08/05/18 at 21:00 Nitroglycerin/ Dextrose 250 ml @ 1.5 mls/hr TITRATE IV Last administered on 08/05/18at 14:22; Admin Dose 72 MLS/HR; Start 08/05/18 at 01:00 Miscellaneous Information 1 ea NOTE XX ; Start 08/05/18 at 09:00 Acetaminophen (Tylenol Liquid) 650 mg Q4H PRN PO ELEVATED TEMPERATURE Last administered on 08/29/18at 05:44; Admin Dose 650 MG; Start 08/05/18 at 11:00 Insulin Human Regular 100 unit/ Sodium Chloride 100 ml @ 0 mls/hr PER PROTOCOL IV ; Start 08/05/18 at 12:00 Miscellaneous Information (* Miscellaneous Pharmacy Order) Treatment of Hypoglycemia: 1.BG 51... Per protocol XX ; Start 08/05/18 at 12:00 Dextrose (D50w Syringe) 25 ml Q15M PRN IV .DECREASED GLUCOSE; Start 08/05/18 at 12:00 Dextrose (D50w Syringe) 50 ml Q15M PRN IV .DECREASED GLUCOSE; Start 08/05/18 at 12:00 Fentanyl 100 ml @ 2.5 mls/hr TITRATE IV Last administered on 08/28/18 05:04; Admin Dose 9 MLS/HR; Start 08/05/18 at 12:00 Aspirin (Aspirin) 81 mg DAILY NGT Last administered on 08/30/18 08:30; Admin Dose 81 MG; Start 08/06/18 at 09:00 Multivitamins (Multivitamin) 30 ml DAILY NGT Last administered on 08/30/18 08:30; Admin Dose 30 ML; Start 08/09/18 at 09:00 Zinc Sulfate (Zinc Sulfate) 220 mg DAILY NGT Last administered on 08/30/18 08:29; Admin Dose 220 MG; Start 08/09/18 at 09:00 Folic Acid (Folic Acid) 1 mg DAILY NGT Last administered on 08/30/18 08:30; Admin Dose 1 MG; Start 08/09/18 at 09:00 Ascorbic Acid (Vitamin C) 500 mg DAILY NGT Last administered on 08/30/18 08:30; Admin Dose 500 MG; Start 08/09/18 at 09:00 Albuterol (Ventolin Hfa) 4 puff Q6HWA RESP THERAPY INH Last administered on 08/30/18 08:02; Admin Dose 4 PUFF; Start 08/09/18 at 14:00 Ipratropium [place] (Atrovent Hfa) 4 puff Q6H RESP THERAPY INH Last administered on 08/30/18 08:02; Admin Dose 4 PUFF; Start 08/09/18 at 14:00 IV Flush (NS 10 ml) 10 ml PRN PRN IV IV PROTOCOL; Start 08/11/18 at 16:30 Heparin Sodium (Porcine) (Heparin (1000 Units/ml)) 3,000 unit PRN PRN CATHETER Dialysis Last administered on 08/29/18 12:47; Admin Dose 3,000 UNIT; Start 08/12/18 at 14:30 Labetalol HCl (Labetalol) 10 mg Q4H PRN IV ELEVATED SYSTOLIC BP > 180 Last administered on 08/20/18 16:54; Admin Dose 10 MG; Start 08/14/18 at 19:00 Midazolam HCl 50 ml @ 1 mls/hr TITRATE IV Last administered on 08/20/18 00:16; Admin Dose 5 MLS/HR; Start 08/15/18 at 11:00 Hydralazine HCl (Apresoline) 20 mg Q2 PRN IV ELEVATED SYSTOLIC BP Last administered on 08/22/18 16:18; Admin Dose 20 MG; Start 08/16/18 at 08:00 Docusate Sodium (Colace Liquid Cup) 100 mg BID GTB Last administered on 08/29/18 21:13; Admin Dose 100 MG; Start 08/18/18 at 09:00 Clopidogrel Bisulfate (plaVIX) 75 mg DAILY NGT Last administered on 08/30/18 08:30; Admin Dose 75 MG; Start 08/18/18 at 13:30 Rifaximin (Xifaxan) 200 mg TID PO Last administered on 08/30/18 08:30; Admin Dose 200 MG; Start 08/19/18 at 13:00 Sevelamer Carbonate (Renvela) 2.4 gm WITH MEALS GTB Last administered on 08/30/18 07:03; Admin Dose 2.4 GM; Start 08/23/18 at 11:30 Ondansetron HCl (Zofran Inj) 4 mg Q4H PRN IV NAUSEA AND/OR VOMITING Last administered on 08/26/18 18:27; Admin Dose 4 MG; Start 08/23/18 at 14:30 Lactobacillus Acidophilus/ Rhamnosus (Culturelle) 1 cap TID GTB Last administered on 08/30/18 08:29; Admin Dose 1 CAP; Start 08/24/18 at 13:00 Sodium Chloride 1,000 ml @ 0 mls/hr Q0M PRN IV TO KEEP SBP ABOVE 90; Start 08/26/18 at 11:38 Albumin Human 100 ml @ 100 mls/hr WITH DIALYSIS PRN IV SBP <90 DURING DIALYSIS; Start 08/26/18 at 12:00 Sodium Chloride (NS) -To prime the dialy... DIRECTED FOR HD PRN IV HD; Start 08/26/18 at 12:00 Nitroglycerin (Nitroglycerin 2% Oint) 0.5 inch Q6 PRN TD CHEST PAIN; Start 08/27/18 at 00:30 Lorazepam (Ativan) 1 mg Q4H PRN IV ANXIETY Last administered on 08/27/18at 04:14; Admin Dose 1 MG; Start 08/27/18 at 04:30 Phenylephrine HCl 250 ml @ 75 mls/hr TITRATE IV ; Start 08/27/18 at 06:30 Sodium Chloride 500 ml @ 0 mls/hr Q0M IV Last administered on 08/27/18at 06:51; Admin Dose 1,000 MLS/HR; Start 08/27/18 at 06:30 Vancomycin HCl (Vanco Iv Per Pharmacy) VANCOMYCIN PER PHARMACY PER PROTOCOL XX ; Start 08/27/18 at 10:00 Cefepime HCl 50 ml @ 100 mls/hr Q24H IVPB Last administered on 08/29/18at 12:41; Admin Dose 100 MLS/HR; Start 08/27/18 at 10:30 Eye Lubricant (Artificial Tears Oph) 2 drop Q2H PRN BOTH EYES dry eyes; Start 08/28/18 at 01:30 Heparin Sodium (Porcine) (Heparin (5000 Units/1ml)) 5,000 unit Q8 SC Last adm inistered on 08/30/18at 05:34; Admin Dose 5,000 UNIT; Start 08/29/18 at 14:00 Epoetin Jarrell-epbx (RETACRIT(esrd)) 10,000 unit MoWeFr@1700 SC Last administered on 08/29/18at 18:04; Admin Dose 10,000 UNIT; Start 08/29/18 at 17:00 Morphine Sulfate (morphine) 3 mg Q1H PRN GTB PAIN NOT RELIEVED BY OTHERS; Start 08/29/18 at 12:00 Lansoprazole (Prevacid) 30 mg DAILY@06 GTB Last administered on 08/30/18at 05:30; Admin Dose 30 MG; Start 08/30/18 at 06:00 Carvedilol (Coreg) 25 mg TID PO Last administered on 08/30/18at 08:30; Admin Dose 25 MG; Start 08/30/18 at 09:00 TIEN HENRY Aug 30, 2018 09:20
--- NOTE | 2018-08-30 09:24 | CONS ---
Assessment/Plan Assessment/Plan Assessment/Plan (Daily) Status post MO Acute myocardial infarction 100% occlusion of the LAD Status post PTCA Respiratory failure intubation Acute renal failure on hemodialysis Encephalopathy now cleared Bacteremia sepsis syndrome Overall prognosis has improved patient back to full code Consultation Date/Type/Reason Admit Date/Time Aug 04, 2018 at 23:10 Initial Consult Date 08/15/18 Requesting Provider: HARPAL AGGARWAL MD Date/Time of Note DATE: 08/30/18 TIME: 09:23 Exam/Review of Systems Exam Vitals Vital Signs Date Temp Pulse Resp B/P (MAP) Pulse Ox O2 O2 Flow FiO2 Time Delivery Rate 08/30/18 96 08:00 08/30/18 30 08:00 08/30/18 98.5 22 146/87 100 08:00 (106) 08/30/18 Mechanical 07:00 Ventilator Intake and Output 08/29/18 08/29/18 08/30/18 1515:00 23:00 07:00 IntakeIntake Total 390 ml 180 ml 410 ml OutputOutput Total 2900 ml 165 ml BalanceBalance -2510 ml 180 ml 245 ml Results Result Diagram: 08/30/18 0500 08/30/18 0500 Results 24hrs Laboratory Tests Test 08/29/18 09:56 08/30/18 05:00 Bedside Glucose 127 White Blood Count 14.7 H Red Blood Count 2.91 L Hemoglobin 8.5 L Hematocrit 27.0 L Mean Corpuscular Volume 92.8 Mean Corpuscular Hemoglobin 29.2 Mean Corpuscular Hemoglobin Concent 31.5 L Red Cell Distribution Width 16.4 H Platelet Count 179 Mean Platelet Volume 13.9 H Immature Granulocytes % 5.700 H Neutrophils % Segmented Neutrophils % (Manual) 79 H Lymphocytes % Lymphocytes % (Manual) 8 L Reactive Lymphocytes % (Manual) 1 H Monocytes % Monocytes % (Manual) 7 Eosinophils % Eosinophils % (Manual) 2 Basophils % Metamyelocytes % (manual) 2 H Myelocytes % (Manual) 1 H Nucleated Red Blood Cells % 0.0 Immature Granulocytes # 0.840 H Neutrophils # Lymphocytes (Manual) 1.1 Lymphocytes # Reactive Lymphocytes # 0.1 H Monocytes # Monocytes # (Manual) 1.0 H Eosinophils # Basophils # Metamyelocytes # 0.2 H Myelocytes # 0.1 H Nucleated Red Blood Cells # Platelet Estimate NORMAL Giant Platelets 2 H Polychromasia 3+ Anisocytosis 1+ Sodium Level 136 Potassium Level 4.1 Chloride Level 102 Carbon Dioxide Level 28 Anion Gap 6 Blood Urea Nitrogen 47 H Creatinine 2.12 H Est Glomerular Filtrat Rate mL/min 26 L Glucose Level 113 Calcium Level 8.7 Phosphorus Level 3.5 Magnesium Level 2.2 Total Bilirubin 0.3 Direct Bilirubin 0.00 Indirect Bilirubin 0.3 Aspartate Amino Transf (AST/SGOT) 301 H Alanine Aminotransferase (ALT/SGPT) 102 H Alkaline Phosphatase 551 H Creatine Kinase Creatine Kinase Index Creatinine Kinase MB (Mass) 43.40 H Troponin I 3.580 *H Total Protein 6.2 Albumin 2.6 L Globulin 3.60 H Albumin/Globulin Ratio 0.72 Medications Medication Current Medications Norepinephrine 250 ml @ 1.875 mls/ hr TITRATE IV Last administered on 08/27/18at 06:08; Admin Dose 3.75 MLS/HR; Start 08/04/18 at 23:15 Atorvastatin Calcium (Lipitor) 80 mg DAILY@21 PO Last administered on 08/29/18at 21:13; Admin Dose 80 MG; Start 08/05/18 at 21:00 Nitroglycerin/ Dextrose 250 ml @ 1.5 mls/hr TITRATE IV Last administered on 08/05/18at 14:22; Admin Dose 72 MLS/HR; Start 08/05/18 at 01:00 Miscellaneous Information 1 ea NOTE XX ; Start 08/05/18 at 09:00 Acetaminophen (Tylenol Liquid) 650 mg Q4H PRN PO ELEVATED TEMPERATURE Last administered on 08/29/18at 05:44; Admin Dose 650 MG; Start 08/05/18 at 11:00 Insulin Human Regular 100 unit/ Sodium Chloride 100 ml @ 0 mls/hr PER PROTOCOL IV ; Start 08/05/18 at 12:00 Miscellaneous Information (* Miscellaneous Pharmacy Order) Treatment of Hypoglycemia: 1.BG 51... Per protocol XX ; Start 08/05/18 at 12:00 Dextrose (D50w Syringe) 25 ml Q15M PRN IV .DECREASED GLUCOSE; Start 08/05/18 at 12:00 Dextrose (D50w Syringe) 50 ml Q15M PRN IV .DECREASED GLUCOSE; Start 08/05/18 at 12:00 Fentanyl 100 ml @ 2.5 mls/hr TITRATE IV Last administered on 08/28/18at 05:04; Admin Dose 9 MLS/HR; Start 08/05/18 at 12:00 Aspirin (Aspirin) 81 mg DAILY NGT Last administered on 08/30/18 08:30; Admin Dose 81 MG; Start 08/06/18 at 09:00 Multivitamins (Multivitamin) 30 ml DAILY NGT Last administered on 08/30/18 08:30; Admin Dose 30 ML; Start 08/09/18 at 09:00 Zinc Sulfate (Zinc Sulfate) 220 mg DAILY NGT Last administered on 08/30/18 08:29; Admin Dose 220 MG; Start 08/09/18 at 09:00 Folic Acid (Folic Acid) 1 mg DAILY NGT Last administered on 08/30/18 08:30; Admin Dose 1 MG; Start 08/09/18 at 09:00 Ascorbic Acid (Vitamin C) 500 mg DAILY NGT Last administered on 08/30/18 08:30; Admin Dose 500 MG; Start 08/09/18 at 09:00 Albuterol (Ventolin Hfa) 4 puff Q6HWA RESP THERAPY INH Last administered on 08/30/18 08:02; Admin Dose 4 PUFF; Start 08/09/18 at 14:00 Ipratropium [place] (Atrovent Hfa) 4 puff Q6H RESP THERAPY INH Last administered on 08/30/18 08:02; Admin Dose 4 PUFF; Start 08/09/18 at 14:00 IV Flush (NS 10 ml) 10 ml PRN PRN IV IV PROTOCOL; Start 08/11/18 at 16:30 Heparin Sodium (Porcine) (Heparin (1000 Units/ml)) 3,000 unit PRN PRN CATHETER Dialysis Last administered on 08/29/18 12:47; Admin Dose 3,000 UNIT; Start 08/12/18 at 14:30 Labetalol HCl (Labetalol) 10 mg Q4H PRN IV ELEVATED SYSTOLIC BP > 180 Last administered on 08/20/18 16:54; Admin Dose 10 MG; Start 08/14/18 at 19:00 Midazolam HCl 50 ml @ 1 mls/hr TITRATE IV Last administered on 08/20/18 00:16; Admin Dose 5 MLS/HR; Start 08/15/18 at 11:00 Hydralazine HCl (Apresoline) 20 mg Q2 PRN IV ELEVATED SYSTOLIC BP Last administered on 08/22/18 16:18; Admin Dose 20 MG; Start 08/16/18 at 08:00 Docusate Sodium (Colace Liquid Cup) 100 mg BID GTB Last administered on 08/29/18at 21:13; Admin Dose 100 MG; Start 08/18/18 at 09:00 Clopidogrel Bisulfate (plaVIX) 75 mg DAILY NGT Last administered on 08/30/18 08:30; Admin Dose 75 MG; Start 08/18/18 at 13:30 Rifaximin (Xifaxan) 200 mg TID PO Last administered on 08/30/18 08:30; Admin Dose 200 MG; Start 08/19/18 at 13:00 Sevelamer Carbonate (Renvela) 2.4 gm WITH MEALS GTB Last administered on 08/30/18 07:03; Admin Dose 2.4 GM; Start 08/23/18 at 11:30 Ondansetron HCl (Zofran Inj) 4 mg Q4H PRN IV NAUSEA AND/OR VOMITING Last administered on 08/26/18at 18:27; Admin Dose 4 MG; Start 08/23/18 at 14:30 Lactobacillus Acidophilus/ Rhamnosus (Culturelle) 1 cap TID GTB Last administered on 08/30/18 08:29; Admin Dose 1 CAP; Start 08/24/18 at 13:00 Sodium Chloride 1,000 ml @ 0 mls/hr Q0M PRN IV TO KEEP SBP ABOVE 90; Start 08/26/18 at 11:38 Albumin Human 100 ml @ 100 mls/hr WITH DIALYSIS PRN IV SBP <90 DURING DIALYSIS; Start 08/26/18 at 12:00 Sodium Chloride (NS) -To prime the dialy... DIRECTED FOR HD PRN IV HD; Start 08/26/18 at 12:00 Nitroglycerin (Nitroglycerin 2% Oint) 0.5 inch Q6 PRN TD CHEST PAIN; Start 08/27/18 at 00:30 Lorazepam (Ativan) 1 mg Q4H PRN IV ANXIETY Last administered on 08/27/18 04:14; Admin Dose 1 MG; Start 08/27/18 at 04:30 Phenylephrine HCl 250 ml @ 75 mls/hr TITRATE IV ; Start 08/27/18 at 06:30 Sodium Chloride 500 ml @ 0 mls/hr Q0M IV Last administered on 08/27/18at 06:51; Admin Dose 1,000 MLS/HR; Start 08/27/18 at 06:30 Vancomycin HCl (Vanco Iv Per Pharmacy) VANCOMYCIN PER PHARMACY PER PROTOCOL XX ; Start 08/27/18 at 10:00 Cefepime HCl 50 ml @ 100 mls/hr Q24H IVPB Last administered on 08/29/18at 12:41; Admin Dose 100 MLS/HR; Start 08/27/18 at 10:30 Eye Lubricant (Artificial Tears Oph) 2 drop Q2H PRN BOTH EYES dry eyes; Start 08/28/18 at 01:30 Heparin Sodium (Porcine) (Heparin (5000 Units/1ml)) 5,000 unit Q8 SC Last administered on 08/30/18at 05:34; Admin Dose 5,000 UNIT; Start 08/29/18 at 14:00 Epoetin Jarrell-epbx (RETACRIT(esrd)) 10,000 unit MoWeFr@1700 SC Last administered on 08/29/18at 18:04; Admin Dose 10,000 UNIT; Start 08/29/18 at 17:00 Morphine Sulfate (morphine) 3 mg Q1H PRN GTB PAIN NOT RELIEVED BY OTHERS; Star t 08/29/18 at 12:00 Lansoprazole (Prevacid) 30 mg DAILY@06 GTB Last administered on 08/30/18 05:30; Admin Dose 30 MG; Start 08/30/18 at 06:00 Carvedilol (Coreg) 25 mg TID PO Last administered on 08/30/18at 08:30; Admin Dose 25 MG; Start 08/30/18 at 09:00 TIEN HENRY Aug 30, 2018 09:24
[2018-08-30] MEDS: CEFEPIME 1GM/50 ML (PMX) 50 ML IVPB SCH (10:34)
--- NOTE | 2018-08-30 12:13 | CONS ---
Assessment/Plan Assessment/Plan Hospital Course (Demo Recall) Alert feels good, no fevers Antimicrobials: Vancomycin cefepime Microbiology: Urine culture on admission grew E. coli and Proteus, blood cultures growing oxacillin sensitive staph aureus endotracheal aspirate also growing oxacillin sensitive staph aureus ear drainage preliminary growing staph aureus, repeat blood cultures 2 days ago negative Indwelling: Trach, PEG, right femoral Devan, right upper extremity PICC line Physical examination: Obese well-developed middle-aged woman who is intubated in no distress. Head atraumatic normocephalic neck is supple chest rise symmetrical breath sounds diminished bases. Heart: S1-S2. Abdomen distended. Bowel sounds hypoactive. Extremities cyanotic Assessment: 1. Sepsis, status post shock 2. Healthcare associated pneumonia 3. S/p Oxacillin sensitive staph aureus bacteremia 2 to #3 4. S/p polymicrobial UTI 5. ST elevation ID, status post stent 6. Status post V. fib arrest 7. Acute renal failure, started on hemodialysis 8. 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 Anemia and thrombocytopenia 10. Acute sinusitis and bilateral mastoiditis 11. Morbid obesity 12. Diarrhea, r/o C dif Plan: Improving, restarted on broad-spectrum antibiotics for pneumonia, continue vent management per pulmonary, f/u cxr HD per renal Consultation Date/Type/Reason Admit Date/Time Aug 04, 2018 at 23:10 Initial Consult Date 08/12/18 Type of Consult id Requesting Provider: HARPAL AGGARWAL MD Date/Time of Note DATE: 08/30/18 TIME: 12:12 Exam/Review of Systems Exam Vitals Vital Signs Date Temp Pulse Resp B/P (MAP) Pulse Ox O2 O2 Flow FiO2 Time Delivery Rate 08/30/18 96 08:00 08/30/18 30 08:00 08/30/18 98.5 22 146/87 100 08:00 (106) 08/30/18 Mechanical 07:00 Ventilator Intake and Output 08/29/18 08/29/18 08/30/18 1515:00 23:00 07:00 IntakeIntake Total 390 ml 180 ml 410 ml OutputOutput Total 2900 ml 165 ml BalanceBalance -2510 ml 180 ml 245 ml Results Result Diagram: 08/30/18 0500 08/30/18 0500 Results 24hrs Laboratory Tests Test 08/30/18 05:00 White Blood Count 14.7 H Red Blood Count 2.91 L Hemoglobin 8.5 L Hematocrit 27.0 L Mean Corpuscular Volume 92.8 Mean Corpuscular Hemoglobin 29.2 Mean Corpuscular Hemoglobin Concent 31.5 L Red Cell Distribution Width 16.4 H Platelet Count 179 Mean Platelet Volume 13.9 H Immature Granulocytes % 5.700 H Neutrophils % Segmented Neutrophils % (Manual) 79 H Lymphocytes % Lymphocytes % (Manual) 8 L Reactive Lymphocytes % (Manual) 1 H Monocytes % Monocytes % (Manual) 7 Eosinophils % Eosinophils % (Manual) 2 Basophils % Metamyelocytes % (manual) 2 H Myelocytes % (Manual) 1 H Nucleated Red Blood Cells % 0.0 Immature Granulocytes # 0.840 H Neutrophils # Lymphocytes (Manual) 1.1 Lymphocytes # Reactive Lymphocytes # 0.1 H Monocytes # Monocytes # (Manual) 1.0 H Eosinophils # Basophils # Metamyelocytes # 0.2 H Myelocytes # 0.1 H Nucleated Red Blood Cells # Platelet Estimate NORMAL Giant Platelets 2 H Polychromasia 3+ Anisocytosis 1+ Sodium Level 136 Potassium Level 4.1 Chloride Level 102 Carbon Dioxide Level 28 Anion Gap 6 Blood Urea Nitrogen 47 H Creatinine 2.12 H Est Glomerular Filtrat Rate mL/min 26 L Glucose Level 113 Calcium Level 8.7 Phosphorus Level 3.5 Magnesium Level 2.2 Total Bilirubin 0.3 Direct Bilirubin 0.00 Indirect Bilirubin 0.3 Aspartate Amino Transf (AST/SGOT) 301 H Alanine Aminotransferase (ALT/SGPT) 102 H Alkaline Phosphatase 551 H Creatine Kinase Creatine Kinase Index Creatinine Kinase MB (Mass) 43.40 H Troponin I 3.580 *H Total Protein 6.2 Albumin 2.6 L Globulin 3.60 H Albumin/Globulin Ratio 0.72 Medications Medication Current Medications Norepinephrine 250 ml @ 1.875 mls/ hr TITRATE IV Last administered on 08/27/18at 06:08; Admin Dose 3.75 MLS/HR; Start 08/04/18 at 23:15 Atorvastatin Calcium (Lipitor) 80 mg DAILY@21 PO Last administered on 08/29/18at 21:13; Admin Dose 80 MG; Start 08/05/18 at 21:00 Nitroglycerin/ Dextrose 250 ml @ 1.5 mls/hr TITRATE IV Last administered on 08/05/18at 14:22; Admin Dose 72 MLS/HR; Start 08/05/18 at 01:00 Miscellaneous Information 1 ea NOTE XX ; Start 08/05/18 at 09:00 Acetaminophen (Tylenol Liquid) 650 mg Q4H PRN PO ELEVATED TEMPERATURE Last administered on 08/29/18 05:44; Admin Dose 650 MG; Start 08/05/18 at 11:00 Insulin Human Regular 100 unit/ Sodium Chloride 100 ml @ 0 mls/hr PER PROTOCOL IV ; Start 08/05/18 at 12:00 Miscellaneous Information (* Miscellaneous Pharmacy Order) Treatment of Hyp oglycemia: 1.BG 51... Per protocol XX ; Start 08/05/18 at 12:00 Dextrose (D50w Syringe) 25 ml Q15M PRN IV .DECREASED GLUCOSE; Start 08/05/18 at 12:00 Dextrose (D50w Syringe) 50 ml Q15M PRN IV .DECREASED GLUCOSE; Start 08/05/18 at 12:00 Fentanyl 100 ml @ 2.5 mls/hr TITRATE IV Last administered on 08/28/18 05:04; Admin Dose 9 MLS/HR; Start 08/05/18 at 12:00 Aspirin (Aspirin) 81 mg DAILY NGT Last administered on 08/30/18 08:30; Admin Dose 81 MG; Start 08/06/18 at 09:00 Multivitamins (Multivitamin) 30 ml DAILY NGT Last administered on 08/30/18 08:30; Admin Dose 30 ML; Start 08/09/18 at 09:00 Zinc Sulfate (Zinc Sulfate) 220 mg DAILY NGT Last administered on 08/30/18 08:29; Admin Dose 220 MG; Start 08/09/18 at 09:00 Folic Acid (Folic Acid) 1 mg DAILY NGT Last administered on 08/30/18 08:30; Admin Dose 1 MG; Start 08/09/18 at 09:00 Ascorbic Acid (Vitamin C) 500 mg DAILY NGT Last administered on 08/30/18 08:30; Admin Dose 500 MG; Start 08/09/18 at 09:00 Albuterol (Ventolin Hfa) 4 puff Q6HWA RESP THERAPY INH Last administered on 08/30/18 08:02; Admin Dose 4 PUFF; Start 08/09/18 at 14:00 Ipratropium [place] (Atrovent Hfa) 4 puff Q6H RESP THERAPY INH Last administered on 08/30/18 08:02; Admin Dose 4 PUFF; Start 08/09/18 at 14:00 IV Flush (NS 10 ml) 10 ml PRN PRN IV IV PROTOCOL; Start 08/11/18 at 16:30 Heparin Sodium (Porcine) (Heparin (1000 Units/ml)) 3,000 unit PRN PRN CATHETER Dialysis Last administered on 08/29/18 12:47; Admin Dose 3,000 UNIT; Start 08/12/18 at 14:30 Labetalol HCl (Labetalol) 10 mg Q4H PRN IV ELEVATED SYSTOLIC BP > 180 Last administered on 08/20/18 16:54; Admin Dose 10 MG; Start 08/14/18 at 19:00 Midazolam HCl 50 ml @ 1 mls/hr TITRATE IV Last administered on 08/20/18 00:16; Admin Dose 5 MLS/HR; Start 08/15/18 at 11:00 Hydralazine HCl (Apresoline) 20 mg Q2 PRN IV ELEVATED SYSTOLIC BP Last administered on 08/22/18 16:18; Admin Dose 20 MG; Start 08/16/18 at 08:00 Docusate Sodium (Colace Liquid Cup) 100 mg BID GTB Last administered on 08/29/18 21:13; Admin Dose 100 MG; Start 08/18/18 at 09:00 Clopidogrel Bisulfate (plaVIX) 75 mg DAILY NGT Last administered on 08/30/18 08:30; Admin Dose 75 MG; Start 08/18/18 at 13:30 Rifaximin (Xifaxan) 200 mg TID PO Last administered on 08/30/18 08:30; Admin Dose 200 MG; Start 08/19/18 at 13:00 Sevelamer Carbonate (Renvela) 2.4 gm WITH MEALS GTB Last administered on 08/30/18 10:34; Admin Dose 2.4 GM; Start 08/23/18 at 11:30 Ondansetron HCl (Zofran Inj) 4 mg Q4H PRN IV NAUSEA AND/OR VOMITING Last administered on 08/26/18 18:27; Admin Dose 4 MG; Start 08/23/18 at 14:30 Lactobacillus Acidophilus/ Rhamnosus (Culturelle) 1 cap TID GTB Last administered on 08/30/18at 08:29; Admin Dose 1 CAP; Start 08/24/18 at 13:00 Sodium Chloride 1,000 ml @ 0 mls/hr Q0M PRN IV TO KEEP SBP ABOVE 90; Start 08/26/18 at 11:38 Albumin Human 100 ml @ 100 mls/hr WITH DIALYSIS PRN IV SBP <90 DURING DIALYS IS; Start 08/26/18 at 12:00 Sodium Chloride (NS) -To prime the dialy... DIRECTED FOR HD PRN IV HD; Start 08/26/18 at 12:00 Nitroglycerin (Nitroglycerin 2% Oint) 0.5 inch Q6 PRN TD CHEST PAIN; Start 08/27/18 at 00:30 Lorazepam (Ativan) 1 mg Q4H PRN IV ANXIETY Last administered on 08/27/18at 04:14; Admin Dose 1 MG; Start 08/27/18 at 04:30 Phenylephrine HCl 250 ml @ 75 mls/hr TITRATE IV ; Start 08/27/18 at 06:30 Sodium Chloride 500 ml @ 0 mls/hr Q0M IV Last administered on 08/27/18at 06:51; Admin Dose 1,000 MLS/HR; Start 08/27/18 at 06:30 Vancomycin HCl (Vanco Iv Per Pharmacy) VANCOMYCIN PER PHARMACY PER PROTOCOL XX ; Start 08/27/18 at 10:00 Cefepime HCl 50 ml @ 100 mls/hr Q24H IVPB Last administered on 08/30/18at 10:34; Admin Dose 100 MLS/HR; Start 08/27/18 at 10:30 Eye Lubricant (Artificial Tears Oph) 2 drop Q2H PRN BOTH EYES dry eyes; Start 08/28/18 at 01:30 Heparin Sodium (Porcine) (Heparin (5000 Units/1ml)) 5,000 unit Q8 SC Last administered on 08/30/18at 05:34; Admin Dose 5,000 UNIT; Start 08/29/18 at 14:00 Epoetin Jarrell-epbx (RETACRIT(esrd)) 10,000 unit MoWeFr@1700 SC Last administered on 08/29/18at 18:04; Admin Dose 10,000 UNIT; Start 08/29/18 at 17:00 Morphine Sulfate (morphine) 3 mg Q1H PRN GTB PAIN NOT RELIEVED BY OTHERS; Start 08/29/18 at 12:00 Lansoprazole (Prevacid) 30 mg DAILY@06 GTB Last administered on 08/30/18at 05:30; Admin Dose 30 MG; Start 08/30/18 at 06:00 Carvedilol (Coreg) 25 mg TID PO Last administered on 08/30/18at 08:30; Admin Dose 25 MG; Start 08/30/18 at 09:00 WIN LUCIANO NP Aug 30, 2018 12:13
[2018-08-30] MEDS: morphine LIQ (10 MG/5 ML) CUP GTB PRN (13:12)
--- NOTE | 2018-08-30 15:49 | PN ---
Date/Time of Note Date/Time of Note DATE: 08/30/18 TIME: 15:47 Objective Vitals Vital Signs Date Temp Pulse Resp B/P (MAP) Pulse Ox O2 O2 Flow FiO2 Time Delivery Rate 08/30/18 94 20 133/82 14:00 (99) 08/30/18 100 Mechanical 13:00 Ventilator 08/30/18 98.7 12:00 08/30/18 30 11:20 Intake and Output 08/29/18 08/29/18 08/30/18 1515:00 23:00 07:00 IntakeIntake Total 390 ml 180 ml 440 ml OutputOutput Total 2900 ml 165 ml BalanceBalance -2510 ml 180 ml 275 ml Results Result Diagram: 08/30/18 0500 08/30/18 0500 Medications Medications Current Medications Atorvastatin Calcium (Lipitor) 80 mg DAILY@21 PO Last administered on 08/29/18at 21:13; Admin Dose 80 MG; Start 08/05/18 at 21:00 Miscellaneous Information 1 ea NOTE XX ; Start 08/05/18 at 09:00 Acetaminophen (Tylenol Liquid) 650 mg Q4H PRN PO ELEVATED TEMPERATURE Last administered on 08/29/18at 05:44; Admin Dose 650 MG; Start 08/05/18 at 11:00 Miscellaneous Information (* Miscellaneous Pharmacy Order) Treatment of Hypoglycemia: 1.BG 51... Per protocol XX ; Start 08/05/18 at 12:00 Dextrose (D50w Syringe) 25 ml Q15M PRN IV .DECREASED GLUCOSE; Start 08/05/18 at 12:00 Dextrose (D50w Syringe) 50 ml Q15M PRN IV .DECREASED GLUCOSE; Start 08/05/18 at 12:00 Aspirin (Aspirin) 81 mg DAILY NGT Last administered on 08/30/18at 08:30; Admin Dose 81 MG; Start 08/06/18 at 09:00 Multivitamins (Multivitamin) 30 ml DAILY NGT Last administered on 08/30/18at 08:30; Admin Dose 30 ML; Start 08/09/18 at 09:00 Zinc Sulfate (Zinc Sulfate) 220 mg DAILY NGT Last administered on 08/30/18at 08:29; Admin Dose 220 MG; Start 08/09/18 at 09:00 Folic Acid (Folic Acid) 1 mg DAILY NGT Last administered on 08/30/18 08:30; Admin Dose 1 MG; Start 08/09/18 at 09:00 Ascorbic Acid (Vitamin C) 500 mg DAILY NGT Last administered on 08/30/18 08:30; Admin Dose 500 MG; Start 08/09/18 at 09:00 Albuterol (Ventolin Hfa) 4 puff Q6HWA RESP THERAPY INH Last administered on 08/30/18 14:27; Admin Dose 4 PUFF; Start 08/09/18 at 14:00 Ipratropium [place] (Atrovent Hfa) 4 puff Q6H RESP THERAPY INH Last administered on 08/30/18 14:26; Admin Dose 4 PUFF; Start 08/09/18 at 14:00 IV Flush (NS 10 ml) 10 ml PRN PRN IV IV PROTOCOL; Start 08/11/18 at 16:30 Heparin Sodium (Porcine) (Heparin (1000 Units/ml)) 3,000 unit PRN PRN CATHETER Dialysis Last administered on 08/29/18 12:47; Admin Dose 3,000 UNIT; Start 08/12/18 at 14:30 Labetalol HCl (Labetalol) 10 mg Q4H PRN IV ELEVATED SYSTOLIC BP > 180 Last administered on 08/20/18 16:54; Admin Dose 10 MG; Start 08/14/18 at 19:00 Hydralazine HCl (Apresoline) 20 mg Q2 PRN IV ELEVATED SYSTOLIC BP Last adm inistered on 08/22/18 16:18; Admin Dose 20 MG; Start 08/16/18 at 08:00 Docusate Sodium (Colace Liquid Cup) 100 mg BID GTB Last administered on 08/29/18 21:13; Admin Dose 100 MG; Start 08/18/18 at 09:00 Clopidogrel Bisulfate (plaVIX) 75 mg DAILY NGT Last administered on 08/30/18 08:30; Admin Dose 75 MG; Start 08/18/18 at 13:30 Rifaximin (Xifaxan) 200 mg TID PO Last administered on 08/30/18 13:11; Admin Dose 200 MG; Start 08/19/18 at 13:00 Sevelamer Carbonate (Renvela) 2.4 gm WITH MEALS GTB Last administered on 08/30/18 10:34; Admin Dose 2.4 GM; Start 08/23/18 at 11:30 Ondansetron HCl (Zofran Inj) 4 mg Q4H PRN IV NAUSEA AND/OR VOMITING Last administered on 08/26/18 18:27; Admin Dose 4 MG; Start 08/23/18 at 14:30 Lactobacillus Acidophilus/ Rhamnosus (Culturelle) 1 cap TID GTB Last ad ministered on 08/30/18 13:10; Admin Dose 1 CAP; Start 08/24/18 at 13:00 Albumin Human 100 ml @ 100 mls/hr WITH DIALYSIS PRN IV SBP <90 DURING DIALYSIS; Start 08/26/18 at 12:00 Sodium Chloride (NS) -To prime the dialy... DIRECTED FOR HD PRN IV HD; Start 08/26/18 at 12:00 Nitroglycerin (Nitroglycerin 2% Oint) 0.5 inch Q6 PRN TD CHEST PAIN; Start 08/27/18 at 00:30 Lorazepam (Ativan) 1 mg Q4H PRN IV ANXIETY Last administered on 08/27/18 04:14; Admin Dose 1 MG; Start 08/27/18 at 04:30 Sodium Chloride 500 ml @ 0 mls/hr Q0M IV Last administered on 08/27/18 06:51; Admin Dose 1,000 MLS/HR; Start 08/27/18 at 06:30 Vancomycin HCl (Vanco Iv Per Pharmacy) VANCOMYCIN PER PHARMACY PER PROTOCOL XX ; Start 08/27/18 at 10:00 Cefepime HCl 50 ml @ 100 mls/hr Q24H IVPB Last administered on 08/30/18 10:34; Admin Dose 100 MLS/HR; Start 08/27/18 at 10:30 Eye Lubricant (Artificial Tears Oph) 2 drop Q2H PRN BOTH EYES dry eyes; Start 08/28/18 at 01:30 Heparin Sodium (Porcine) (Heparin (5000 Units/1ml)) 5,000 unit Q8 SC Last administered on 08/30/18 13:15; Admin Dose 5,000 UNIT; Start 08/29/18 at 14:00 Epoetin Jarrell-epbx (RETACRIT(esrd)) 10,000 unit MoWeFr@1700 SC Last administered on 08/29/18 18:04; Admin Dose 10,000 UNIT; Start 08/29/18 at 17:00 Morphine Sulfate (morphine) 3 mg Q1H PRN GTB PAIN NOT RELIEVED BY OTHERS Last administered on 08/30/18at 13:12; Admin Dose 3 MG; Start 08/29/18 at 12:00 Lansoprazole (Prevacid) 30 mg DAILY@06 GTB Last administered on 08/30/18at 05:30; Admin Dose 30 MG; Start 08/30/18 at 06:00 Carvedilol (Coreg) 25 mg TID PO Last administered on 08/30/18at 13:11; Admin Dose 25 MG; Start 08/30/18 at 09:00 VTE Prophylaxis Risk score (from Ns)>0 risk: 13 SCD applied (from [facility]): Yes SCD contraindication: other Lines/Catheters IV Catheter Type: Aguilar in Place: No Assessment/Plan Hospital Course Subjective Patient doing well, moves to command, able to communicate Objective Physical exam General: Patient is laying in bed with tracheostomy Mentation: Patient is alert and oriented Head: Normocephalic atraumatic Eyes: EOMI, pupils reactive to light Neck: Supple, nontender, midline Respiratory: Coarse to auscultation bilaterally Cardiovascular: regular rate, no obvious murmurs Gastrointestinal: non-tender to palpation, bowel sounds heard. Neurological: Able to follow commands and move all extremities, although limited Skin: No new skin lesions Assessment/Plan 1. Acute hypoxic respiratory failure - Per Pulm, trach may be sitting on trach wall, doing much better now that patient's neck was repositioned - Patients mentation improved significantly after trach was adjusted, cardiothoracic surgeon was notified to possibly adjust trach, saw patient and stated no intervention needed. -Has PEG and trach 2. Acute toxic/metabolic encephalopathy-decompensated from hypercapnia, resolved -After decompensating hypoxic event earlier in the week, patient back to her previous baseline a few days ago of able to follow command and interact. - Neurology input appreciated and will reconsult if needed 3. Bilateral CVA - Found on MRI, likely thromboembolic secondary to cardiopulmonary arrest per neurology - Continue on aspirin/plavix and Lipitor 4. Anemia, blood loss and renal disease- stable - Hgb remains stable, transfuse as needed - PPI daily 5. Bilateral Pneumonia -Infectious disease on board, antibiotics per infectious disease 6. Septic shock secondary to PNA and bacteremia- resolved - Blood cultures and sputum culture results noted. - ID on board Hypotension, resolved -May be due secondary to respiratory events overnight -Pressors as needed Rhabdomyolysis -Nephrology on board, dialysis as needed, unsure if rhabdomyolysis is acute. 7. CAD s/p PCI x2 - Cardiology on board and appreciate recommendations. Stressed importance of continuing DAPT given recent stent placements and high risk of restenosis - s/p emergent Cath 08/05 with successful PTCA and stenting of proximal and mid LAD, PTCA of the large first diagonal and thrombectomy of the LAD - Repeat PCI on 08/07 performed with stenting to LCx - plans for stenting of RCA prior to discharge if possible 8. Renal failure on HD - Nephrology on board and appreciate recommendations. Continue HD - secondary to septic shock, ATN vs prerenal vs contrast induced nephropathy - will avoid nephrotoxic agents 9. Diabetes - A1c noted - ISS not needed 10. S/p V-fib cardiac arrest secondary to STEMI - Completed hypothermia protocol 11. Disposition -Continue monitoring for improvement, -Okay to downgrade to telemetry >35 minutes of critical care time spent with patient and father at bedside HARPAL PEDROZA Aug 30, 2018 15:49
[2018-08-30] MEDS: ATORVASTATIN 80 MG TAB PO SCH (21:44)
[2018-08-31] VITALS (38 sets, daily range): BP systolic 103–141; BP diastolic 26–98; PULSE 72–101; RESP 17–23
[2018-08-31] MEDS: IPRATROPIUM (HFA) 12.9 GM INHALER INH SCH ×4 (01:19→19:18)
[2018-08-31] MEDS: LANSOPRAZOLE 30 MG CAP GTB SCH (06:34)
[2018-08-31] MEDS: HEPARIN 5,000 UNIT/1 ML VIAL SC SCH ×3 (06:42→22:14)
[2018-08-31] MEDS: ALBUTEROL HFA 8 GM INHALER INH SCH ×3 (07:51→19:18)
[2018-08-31] MEDS: SEVELAMER CARBONATE 2.4 GM PKT GTB SCH ×3 (08:00→17:48)
[2018-08-31] MEDS: LACTOBACILLUS RHAMNOSUS CAP GTB SCH ×3 (08:25→21:51)
[2018-08-31] MEDS: DOCUSATE SODIUM 10 MG/ML (10ML CUP) GTB SCH ×2 (08:25→21:00)
[2018-08-31] MEDS: RIFAXIMIN 200 MG TAB PO SCH ×3 (08:26→21:51)
--- NOTE | 2018-08-31 08:30 | PN ---
DATE: 08/31/2018 SUBJECTIVE: The patient was transferred from intensive care unit to telemetry. No other acute event s noted overnight. The patient is more alert. OBJECTIVE: VITAL SIGNS: Blood pressure is 129/77, pulse 91, respirations 21, temperature 98.2. HEENT: Head is normocephalic. NECK: Supple. HEART: Regular rate. LUNGS: Show diminished breath sounds at the base. ABDOMEN: Soft, nontender to palpation without rebound or guarding. EXTREMITIES: Negative for clubbing, cyanosis. Trace edema. DERMATOLOGIC: No rashes. MUSCULOSKELETAL: No joint effusions. NEUROLOGIC: No change in exam. MEDICATIONS: The patient's medications have been reviewed. LABORATORY DATA: Has been reviewed. ASSESSMENT AND PLAN: 1. Anuric acute kidney injury with previously normal baseline creatinine. Etiology of HUSEYIN is second mari to acute tubular necrosis. The patient remains dialysis dependent with no signs of recovery. An ticipate hemodialysis today. Patient will be scheduled for PermCath placement early next week by Dr. Wilson. 2. Volume overload, improved. Continue ultrafiltration dialysis. 3. Anemia. Monitor hemoglobin and hematocrit levels. Continue Epogen. 4. Rhabdomyolysis, improving. Continue dialysis. Monitor CK levels. 5. Mineral bone disorder, monitor calcium and phosphorus levels. 6. Ventilatory dependent respiratory failure. Vent settings and ABG was reviewed. Continue to [facility]. Follow up with pulmonary. 7. Coronary artery disease, status post cardiac catheterization with PCI. Continue medical manageme nt. 8. Sepsis, status post shock. The patient is completing an antibiotic course. 9. Acute encephalopathy, etiology is toxic metabolic, improving. 10. Acute cerebrovascular accident. Continue medical management. 11. Dysphagia. Continue tube feeding. 12. Morbid obesity. 13. Status post cardiac arrest. 14. Status post ST elevated myocardial infarction. Dictated By: BHUMI REDDY DO NR/NTS Conf#: [id number] DID#: [id number] CC: DANIAL TUCKER MD; HARPAL PEDROZA MD; LAUREN GREWAL MD;*EndCC*
--- NOTE | 2018-08-31 09:47 | CONS ---
Assessment/Plan Assessment/Plan Assessment/Plan (Daily) Ventilator setting; AC of 18, tidal volume 500, PEEP of 5, 30% FiO2. Chest x-ray was reviewed from today which is showing persistent mild patchy infiltrates. Assessment and recommendations; 1. Patient admitted with cardiac arrest status post tracheostomy because of failure to be weaned from ventilator. 2. CVA without any obvious neurological deficit. 3. Recurrent pneumonia, clinically and radiologically improving. On appropriate empirical antimicrobial coverage. 4. History of diabetes and hypertension. 5. Renal failure, patient on hemodialysis. Continue current supportive care. Consider discharge to rehab center. Hemodialysis per open source developer. Consultation Date/Type/Reason Admit Date/Time Aug 04, 2018 at 23:10 Initial Consult Date 08/17/18 Type of Consult Pulmonary/critical care Requesting Provider: HARPAL AGGARWAL MD Date/Time of Note DATE: 08/31/18 TIME: 09:45 24 HR Interval Summary Free Text/Dictation Patient's condition is stable. Has been transferred to telemetry from ICU. Patient has remained hemodynamically stable. General exam; young lady, awake alert, on ventilator via tracheostomy, currently in no distress. Exam/Review of Systems Exam Vitals Vital Signs Date Temp Pulse Resp B/P (MAP) Pulse Ox O2 O2 Flow FiO2 Time Delivery Rate 08/31/18 101 09:30 08/31/18 18 136/85 98 Mechanical 09:00 (102) Ventilator Trach Collar 08/31/18 30 07:45 08/31/18 98.2 07:11 Intake and Output 08/30/18 08/30/18 08/31/18 1515:00 23:00 07:00 IntakeIntake Total 360 ml 390 ml OutputOutput Total 50 ml BalanceBalance 360 ml 340 ml Exam HEENT exam; supple neck, no JVD. No lymphadenopathy. Midline trachea. No thyromegaly. Patient has fair dentition. Tracheostomy in place. Insertion site is clean. Chest exam; diminished but clear breath sounds. S1-S2 audible, no murmurs. Regular rhythm. Abdomen exam; soft, no organomegaly. G-tube in place. Bowel sounds audible. Extremity exam; no peripheral edema or clubbing. CUFFER exam; no focal deficit. Results Result Diagram: 08/31/1861708/31/1818 Results 24hrs Laboratory Tests Test 08/31/18 06:18 White Blood Count 12.2 H Red Blood Count 2.91 L Hemoglobin 8.5 L Hematocrit 27.1 L Mean Corpuscular Volume 93.1 Mean Corpuscular Hemoglobin 29.2 Mean Corpuscular Hemoglobin Concent 31.4 L Red Cell Distribution Width 16.4 H Platelet Count 170 Mean Platelet Volume 14.0 H Immature Granulocytes % 5.400 H Neutrophils % Segmented Neutrophils % (Manual) 69 Band Neutrophils % (Manual) 2 Lymphocytes % Lymphocytes % (Manual) 15 Monocytes % Monocytes % (Manual) 6 Eosinophils % Eosinophils % (Manual) 6 Basophils % Basophils % (Manual) 1 Metamyelocytes % (manual) 1 H Nucleated Red Blood Cells % 0.0 Immature Granulocytes # 0.660 H Neutrophils # Neutrophils # (Manual) 8.4 H Band Neutrophils # 0.2 Lymphocytes (Manual) 1.8 Lymphocytes # Monocytes # Monocytes # (Manual) 0.7 Eosinophils # Basophils # Basophils # (Manual) 0.1 H Metamyelocytes # 0.1 H Nucleated Red Blood Cells # Platelet Estimate NORMAL Giant Platelets 3 H Polychromasia 3+ Hypochromasia 1+ Poikilocytosis 1+ Anisocytosis 2+ Microcytosis 2+ Prothrombin Time 14.2 Prothrombin Time Ratio 1.1 INR International Normalized Ratio 1.09 Sodium Level 135 Potassium Level 3.9 Chloride Level 101 Carbon Dioxide Level 27 Anion Gap 7 Blood Urea Nitrogen 69 H Creatinine 3.24 #H Est Glomerular Filtrat Rate mL/min 16 L Glucose Level 111 Calcium Level 9.0 Phosphorus Level 4.7 Magnesium Level 2.4 Total Bilirubin 0.2 Direct Bilirubin 0.00 Indirect Bilirubin 0.2 Aspartate Amino Transf (AST/SGOT) 236 H Alanine Aminotransferase (ALT/SGPT) 123 H Alkaline Phosphatase 928 H Creatine Kinase 1451 #H Creatine Kinase Index 2.2 Creatinine Kinase MB (Mass) 31.50 H Troponin I 1.760 *H Total Protein 6.1 Albumin 2.5 L Globulin 3.60 H Albumin/Globulin Ratio 0.69 Medications Medication Current Medications Atorvastatin Calcium (Lipitor) 80 mg DAILY@21 PO Last administered on 08/30/18at 21:44; Admin Dose 80 MG; Start 08/05/18 at 21:00 Miscellaneous Information 1 ea NOTE XX ; Start 08/05/18 at 09:00 Acetaminophen (Tylenol Liquid) 650 mg Q4H PRN PO ELEVATED TEMPERATURE Last administered on 08/29/18 05:44; Admin Dose 650 MG; Start 08/05/18 at 11:00 Miscellaneous Information (* Miscellaneous Pharmacy Order) Treatment of Hypoglycemia: 1.BG 51... Per protocol XX ; Start 08/05/18 at 12:00 Dextrose (D50w Syringe) 25 ml Q15M PRN IV .DECREASED GLUCOSE; Start 08/05/18 at 12:00 Dextrose (D50w Syringe) 50 ml Q15M PRN IV .DECREASED GLUCOSE; Start 08/05/18 at 12:00 Aspirin (Aspirin) 81 mg DAILY NGT Last administered on 08/30/18 08:30; Admin Dose 81 MG; Start 08/06/18 at 09:00 Multivitamins (Multivitamin) 30 ml DAILY NGT Last administered on 08/30/18 08:30; Admin Dose 30 ML; Start 08/09/18 at 09:00 Zinc Sulfate (Zinc Sulfate) 220 mg DAILY NGT Last administered on 08/30/18 08:29; Admin Dose 220 MG; Start 08/09/18 at 09:00 Folic Acid (Folic Acid) 1 mg DAILY NGT Last administered on 08/30/18 08:30; Admin Dose 1 MG; Start 08/09/18 at 09:00 Ascorbic Acid (Vitamin C) 500 mg DAILY NGT Last administered on 08/30/18 08:30; Admin Dose 500 MG; Start 08/09/18 at 09:00 Albuterol (Ventolin Hfa) 4 puff Q6HWA RESP THERAPY INH Last administered on 08/31/18 07:51; Admin Dose 4 PUFF; Start 08/09/18 at 14:00 Ipratropium [place] (Atrovent Hfa) 4 puff Q6H RESP THERAPY INH Last administered on 08/31/18 07:50; Admin Dose 4 PUFF; Start 08/09/18 at 14:00 IV Flush (NS 10 ml) 10 ml PRN PRN IV IV PROTOCOL; Start 08/11/18 at 16:30 Heparin Sodium (Porcine) (Heparin (1000 Units/ml)) 3,000 unit PRN PRN CATHETER Dialysis Last administered on 08/29/18 12:47; Admin Dose 3,000 UNIT; Start 08/12/18 at 14:30 Labetalol HCl (Labetalol) 10 mg Q4H PRN IV ELEVATED SYSTOLIC BP > 180 Last administered on 08/20/18 16:54; Admin Dose 10 MG; Start 08/14/18 at 19:00 Hydralazine HCl (Apresoline) 20 mg Q2 PRN IV ELEVATED SYSTOLIC BP Last administered on 08/22/18 16:18; Admin Dose 20 MG; Start 08/16/18 at 08:00 Docusate Sodium (Colace Liquid Cup) 100 mg BID GTB Last administered on 21:44; Admin Dose 100 MG; Start 08/18/18 at 09:00 Clopidogrel Bisulfate (plaVIX) 75 mg DAILY NGT Last administered on 08/30/18 08:30; Admin Dose 75 MG; Start 08/18/18 at 13:30 Rifaximin (Xifaxan) 200 mg TID PO Last administered on 08/30/18 21:44; Admin Dose 200 MG; Start 08/19/18 at 13:00 Sevelamer Carbonate (Renvela) 2.4 gm WITH MEALS GTB Last administered on 08/30/18 10:34; Admin Dose 2.4 GM; Start 08/23/18 at 11:30 Ondansetron HCl (Zofran Inj) 4 mg Q4H PRN IV NAUSEA AND/OR VOMITING Last administered on 08/26/18 18:27; Admin Dose 4 MG; Start 08/23/18 at 14:30 Lactobacillus Acidophilus/ Rhamnosus (Culturelle) 1 cap TID GTB Last administered on 08/30/18 21:45; Admin Dose 1 CAP; Start 08/24/18 at 13:00 Albumin Human 100 ml @ 100 mls/hr WITH DIALYSIS PRN IV SBP <90 DURING DI ALYSIS; Start 08/26/18 at 12:00 Sodium Chloride (NS) -To prime the dialy... DIRECTED FOR HD PRN IV HD; Start 08/26/18 at 12:00 Nitroglycerin (Nitroglycerin 2% Oint) 0.5 inch Q6 PRN TD CHEST PAIN; Start 08/27/18 at 00:30 Lorazepam (Ativan) 1 mg Q4H PRN IV ANXIETY Last administered on 08/27/18 04:14; Admin Dose 1 MG; Start 08/27/18 at 04:30 Sodium Chloride 500 ml @ 0 mls/hr Q0M IV Last administered on 08/27/18 06:51; Admin Dose 1,000 MLS/HR; Start 08/27/18 at 06:30 Vancomycin HCl (Vanco Iv Per Pharmacy) VANCOMYCIN PER PHARMACY PER PROTOCOL XX ; Start 08/27/18 at 10:00 Cefepime HCl 50 ml @ 100 mls/hr Q24H IVPB Last administered on 08/30/18 10:34; Admin Dose 100 MLS/HR; Start 08/27/18 at 10:30 Eye Lubricant (Artificial Tears Oph) 2 drop Q2H PRN BOTH EYES dry eyes; Start 08/28/18 at 01:30 Heparin Sodium (Porcine) (Heparin (5000 Units/1ml)) 5,000 unit Q8 SC Last administered on 08/31/18 06:42; Admin Dose 5,000 UNIT; Start 08/29/18 at 14:00 Epoetin Jarrell-epbx (RETACRIT(esrd)) 10,000 unit MoWeFr@1700 SC Last administered on 08/29/18 18:04; Admin Dose 10,000 UNIT; Start 08/29/18 at 17:00 Morphine Sulfate (morphine) 3 mg Q1H PRN GTB PAIN NOT RELIEVED BY OTHERS Last administered on 08/30/18 13:12; Admin Dose 3 MG; Start 08/29/18 at 12:00 Lansoprazole (Prevacid) 30 mg DAILY@06 GTB Last administered on 08/31/18 06:34; Admin Dose 30 MG; Start 08/30/18 at 06:00 Carvedilol (Coreg) 25 mg TID PO Last administered on 08/30/18 21:45; Admin Dose 25 MG; Start 08/30/18 at 09:00 MARIAA KINSEY Aug 31, 2018 09:47
[2018-08-31] MEDS: HEPARIN 1000 UNITS/ML 10 ML INJ CATHETER PRN (12:16)
--- NOTE | 2018-08-31 12:34 | PN ---
Date/Time of Note Date/Time of Note DATE: 08/31/18 TIME: 12:33 Objective Vitals Vital Signs Date Temp Pulse Resp B/P (MAP) Pulse Ox O2 O2 Flow FiO2 Time Delivery Rate 08/31/18 92 21 134/95 99 Mechanical 12:07 (108) Ventilator Trach Collar 08/31/18 98.0 11:23 08/31/18 30 11:05 Intake and Output 08/30/18 08/30/18 08/31/18 1515:00 23:00 07:00 IntakeIntake Total 360 ml 390 ml OutputOutput Total 50 ml BalanceBalance 360 ml 340 ml Results Result Diagram: 08/31/1861708/31/18617 Medications Medications Current Medications Atorvastatin Calcium (Lipitor) 80 mg DAILY@21 PO Last administered on 08/30/18at 21:44; Admin Dose 80 MG; Start 08/05/18 at 21:00 Miscellaneous Information 1 ea NOTE XX ; Start 08/05/18 at 09:00 Acetaminophen (Tylenol Liquid) 650 mg Q4H PRN PO ELEVATED TEMPERATURE Last administered on 08/29/18at 05:44; Admin Dose 650 MG; Start 08/05/18 at 11:00 Miscellaneous Information (* Miscellaneous Pharmacy Order) Treatment of Hypoglycemia: 1.BG 51... Per protocol XX ; Start 08/05/18 at 12:00 Dextrose (D50w Syringe) 25 ml Q15M PRN IV .DECREASED GLUCOSE; Start 08/05/18 at 12:00 Dextrose (D50w Syringe) 50 ml Q15M PRN IV .DECREASED GLUCOSE; Start 08/05/18 at 12:00 Aspirin (Aspirin) 81 mg DAILY NGT Last administered on 08/30/18 08:30; Admin Dose 81 MG; Start 08/06/18 at 09:00 Multivitamins (Multivitamin) 30 ml DAILY NGT Last administered on 08/30/18 08 :30; Admin Dose 30 ML; Start 08/09/18 at 09:00 Zinc Sulfate (Zinc Sulfate) 220 mg DAILY NGT Last administered on 08/30/18 08:29; Admin Dose 220 MG; Start 08/09/18 at 09:00 Folic Acid (Folic Acid) 1 mg DAILY NGT Last administered on 08/30/18 08:30; Admin Dose 1 MG; Start 08/09/18 at 09:00 Ascorbic Acid (Vitamin C) 500 mg DAILY NGT Last administered on 08/30/18 08:30; Admin Dose 500 MG; Start 08/09/18 at 09:00 Albuterol (Ventolin Hfa) 4 puff Q6HWA RESP THERAPY INH Last administered on 08/31/18 07:51; Admin Dose 4 PUFF; Start 08/09/18 at 14:00 Ipratropium [place] (Atrovent Hfa) 4 puff Q6H RESP THERAPY INH Last administered on 08/31/18 07:50; Admin Dose 4 PUFF; Start 08/09/18 at 14:00 IV Flush (NS 10 ml) 10 ml PRN PRN IV IV PROTOCOL; Start 08/11/18 at 16:30 Heparin Sodium (Porcine) (Heparin (1000 Units/ml)) 3,000 unit PRN PRN CATHETER Dialysis Last administered on 08/31/18 12:16; Admin Dose 3,000 UNIT; Start 08/12/18 at 14:30 Labetalol HCl (Labetalol) 10 mg Q4H PRN IV ELEVATED SYSTOLIC BP > 180 Last administered on 08/20/18 16:54; Admin Dose 10 MG; Start 08/14/18 at 19:00 Hydralazine HCl (Apresoline) 20 mg Q2 PRN IV ELEVATED SYSTOLIC BP Last administered on 08/22/18 16:18; Admin Dose 20 MG; Start 08/16/18 at 08:00 Docusate Sodium (Colace Liquid Cup) 100 mg BID GTB Last administered on 08/30/18 21:44; Admin Dose 100 MG; Start 08/18/18 at 09:00 Clopidogrel Bisulfate (plaVIX) 75 mg DAILY NGT Last administered on 08/30/18 08:30; Admin Dose 75 MG; Start 08/18/18 at 13:30 Rifaximin (Xifaxan) 200 mg TID PO Last administered on 08/30/18 21:44; Admin Dose 200 MG; Start 08/19/18 at 13:00 Sevelamer Carbonate (Renvela) 2.4 gm WITH MEALS GTB Last administered on 10:34; Admin Dose 2.4 GM; Start 08/23/18 at 11:30 Ondansetron HCl (Zofran Inj) 4 mg Q4H PRN IV NAUSEA AND/OR VOMITING Last administered on 08/26/18 18:27; Admin Dose 4 MG; Start 08/23/18 at 14:30 Lactobacillus Acidophilus/ Rhamnosus (Culturelle) 1 cap TID GTB Last administered on 08/30/18 21:45; Admin Dose 1 CAP; Start 08/24/18 at 13:00 Albumin Human 100 ml @ 100 mls/hr WITH DIALYSIS PRN IV SBP <90 DURING DIALYSIS; Start 08/26/18 at 12:00 Sodium Chloride (NS) -To prime the dialy... DIRECTED FOR HD PRN IV HD; Start 08/26/18 at 12:00 Nitroglycerin (Nitroglycerin 2% Oint) 0.5 inch Q6 PRN TD CHEST PAIN; Start 08/27/18 at 00:30 Lorazepam (Ativan) 1 mg Q4H PRN IV ANXIETY Last administered on 08/27/18 04:14; Admin Dose 1 MG; Start 08/27/18 at 04:30 Sodium Chloride 500 ml @ 0 mls/hr Q0M IV Last administered on 08/27/18 06:51; Admin Dose 1,000 MLS/HR; Start 08/27/18 at 06:30 Vancomycin HCl (Vanco Iv Per Pharmacy) VANCOMYCIN PER PHARMACY PER PROTOCOL XX ; Start 08/27/18 at 10:00 Cefepime HCl 50 ml @ 100 mls/hr Q24H IVPB Last administered on 08/30/18at 10:34; Admin Dose 100 MLS/HR; Start 08/27/18 at 10:30 Eye Lubricant (Artificial Tears Oph) 2 drop Q2H PRN BOTH EYES dry eyes; Start 08/28/18 at 01:30 Heparin Sodium (Porcine) (Heparin (5000 Units/1ml)) 5,000 unit Q8 SC Last administered on 08/31/18 06:42; Admin Dose 5,000 UNIT; Start 08/29/18 at 14:00 Epoetin Jarrell-epbx (RETACRIT(esrd)) 10,000 unit MoWeFr@1700 SC Last administered on 08/29/18at 18:04; Admin Dose 10,000 UNIT; Start 08/29/18 at 17:00 Morphine Sulfate (morphine) 3 mg Q1H PRN GTB PAIN NOT RELIEVED BY OTHERS Last administered on 08/30/18at 13:12; Admin Dose 3 MG; Start 08/29/18 at 12:00 Lansoprazole (Prevacid) 30 mg DAILY@06 GTB Last administered on 08/31/18at 06:34; Admin Dose 30 MG; Start 08/30/18 at 06:00 Carvedilol (Coreg) 25 mg TID PO Last administered on 08/30/18at 21:45; Admin Dose 25 MG; Start 08/30/18 at 09:00 VTE Prophylaxis Risk score (from Ns)>0 risk: 7 SCD applied (from [facility]): Yes Lines/Catheters IV Catheter Type: Aguilar in Place: No Assessment/Plan Hospital Course Subjective Patient doing well, moves to command, able to communicate Objective Physical exam General: Patient is laying in bed with tracheostomy Mentation: Patient is alert and oriented Head: Normocephalic atraumatic Eyes: EOMI, pupils reactive to light Neck: Supple, nontender, midline Respiratory: Coarse to auscultation bilaterally Cardiovascular: regular rate, no obvious murmurs Gastrointestinal: non-tender to palpation, bowel sounds heard. Neurological: Able to follow commands and move all extremities, although limited Skin: No new skin lesions Assessment/Plan 1. Acute hypoxic respiratory failure - Per Pulm, trach may be sitting on trach wall, doing much better now that patient's neck was repositioned - Patients mentation improved significantly after trach was adjusted, cardiothoracic surgeon was notified to possibly adjust trach, saw patient and stated no intervention needed. -Has PEG and trach 2. Acute toxic/metabolic encephalopathy-decompensated from hypercapnia, resolved -After decompensating hypoxic event earlier in the week, patient back to her previous baseline a few days ago of able to follow command and interact. - Neurology input appreciated and will reconsult if needed 3. Bilateral CVA - Found on MRI, likely thromboembolic secondary to cardiopulmonary arrest per neurology - Continue on aspirin/plavix and Lipitor 4. Anemia, blood loss and renal disease- stable - Hgb remains stable, transfuse as needed - PPI daily 5. Bilateral Pneumonia -Infectious disease on board, antibiotics per infectious disease 6. Septic shock secondary to PNA and bacteremia- resolved - Blood cultures and sputum culture results noted. - ID on board Hypotension, resolved -May be due secondary to respiratory events overnight -Pressors as needed Rhabdomyolysis -Nephrology on board, dialysis as needed, unsure if rhabdomyolysis is acute. 7. CAD s/p PCI x2 - Cardiology on board and appreciate recommendations. Stressed importance of continuing DAPT given recent stent placements and high risk of restenosis - s/p emergent Cath 08/05 with successful PTCA and stenting of proximal and mid LAD, PTCA of the large first diagonal and thrombectomy of the LAD - Repeat PCI on 08/07 performed with stenting to LCx - plans for stenting of RCA prior to discharge if possible 8. Renal failure on HD - Nephrology on board and appreciate recommendations. Continue HD - secondary to septic shock, ATN vs prerenal vs contrast induced nephropathy - will avoid nephrotoxic agents 9. Diabetes - A1c noted - ISS not needed 10. S/p V-fib cardiac arrest secondary to STEMI - Completed hypothermia protocol 11. Disposition -Patient stable, cardiology plans for possible repeat cardiac cath sometime early next week. HARPAL PEDROZA Aug 31, 2018 12:34
--- NOTE | 2018-08-31 13:12 | CONS ---
Assessment/Plan Assessment/Plan Hospital Course (Demo Recall) No events looks comfortable, no fevers e Antimicrobials: Vancomycin cefepime Microbiology: Urine culture on admission grew E. coli and Proteus, blood cultures growing oxacillin sensitive staph aureus endotracheal aspirate also growing oxacillin sensitive staph aureus ear drainage preliminary growing staph aureus, repeat blood cultures 2 days ago negative Indwelling: Trach, PEG, right femoral Devan, right upper extremity PICC line Physical examination: Obese well-developed middle-aged woman who is intubated in no distress. Head atraumatic normocephalic neck is supple chest rise sym metrical breath sounds diminished bases. Heart: S1-S2. Abdomen distended. Bowel sounds hypoactive. Extremities cyanotic Assessment: 1. Sepsis, status post shock 2. Healthcare associated pneumonia 3. S/p Oxacillin sensitive staph aureus bacteremia 2 to #3 4. S/p polymicrobial UTI 5. ST elevation MA, status post stent 6. Status post V. fib arrest 7. Acute renal failure, started on hemodialysis 8. 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 Anemia and thrombocytopenia 10. Acute sinusitis and bilateral mastoiditis 11. Morbid obesity 12. Diarrhea, r/o C dif Plan: Doing better, restarted on broad-spectrum antibiotics for pneumonia, continue vent management per pulmonary, HD per renal Consultation Date/Type/Reason Admit Date/Time Aug 04, 2018 at 23:10 Initial Consult Date 08/12/18 Type of Consult id Requesting Provider: HARPAL AGGARWAL MD Date/Time of Note DATE: 08/31/18 TIME: 13:12 Exam/Review of Systems Exam Vitals Vital Signs Date Temp Pulse Resp B/P (MAP) Pulse Ox O2 O2 Flow FiO2 Time Delivery Rate 08/31/18 96 12:36 08/31/18 21 134/95 99 Mechanical 12:07 (108) Ventilator Trach Collar 08/31/18 98.0 11:23 08/31/18 30 11:05 Intake and Output 08/30/18 08/30/18 08/31/18 1515:00 23:00 07:00 IntakeIntake Total 360 ml 390 ml OutputOutput Total 50 ml BalanceBalance 360 ml 340 ml Results Result Diagram: 08/31/18 0618 08/31/18 0618 Results 24hrs Laboratory Tests Test 08/31/18 06:18 White Blood Count 12.2 H Red Blood Count 2.91 L Hemoglobin 8.5 L Hematocrit 27.1 L Mean Corpuscular Volume 93.1 Mean Corpuscular Hemoglobin 29.2 Mean Corpuscular Hemoglobin Concent 31.4 L Red Cell Distribution Width 16.4 H Platelet Count 170 Mean Platelet Volume 14.0 H Immature Granulocytes % 5.400 H Neutrophils % Segmented Neutrophils % (Manual) 69 Band Neutrophils % (Manual) 2 Lymphocytes % Lymphocytes % (Manual) 15 Monocytes % Monocytes % (Manual) 6 Eosinophils % Eosinophils % (Manual) 6 Basophils % Basophils % (Manual) 1 Metamyelocytes % (manual) 1 H Nucleated Red Blood Cells % 0.0 Immature Granulocytes # 0.660 H Neutrophils # Neutrophils # (Manual) 8.4 H Band Neutrophils # 0.2 Lymphocytes (Manual) 1.8 Lymphocytes # Monocytes # Monocytes # (Manual) 0.7 Eosinophils # Basophils # Basophils # (Manual) 0.1 H Metamyelocytes # 0.1 H Nucleated Red Blood Cells # Platelet Estimate NORMAL Giant Platelets 3 H Polychromasia 3+ Hypochromasia 1+ Poikilocytosis 1+ Anisocytosis 2+ Microcytosis 2+ Prothrombin Time 14.2 Prothrombin Time Ratio 1.1 INR International Normalized Ratio 1.09 Sodium Level 135 Potassium Level 3.9 Chloride Level 101 Carbon Dioxide Level 27 Anion Gap 7 Blood Urea Nitrogen 69 H Creatinine 3.24 #H Est Glomerular Filtrat Rate mL/min 16 L Glucose Level 111 Calcium Level 9.0 Phosphorus Level 4.7 Magnesium Level 2.4 Total Bilirubin 0.2 Direct Bilirubin 0.00 Indirect Bilirubin 0.2 Aspartate Amino Transf (AST/SGOT) 236 H Alanine Aminotransferase (ALT/SGPT) 123 H Alkaline Phosphatase 928 H Creatine Kinase 1451 #H Creatine Kinase Index 2.2 Creatinine Kinase MB (Mass) 31.50 H Troponin I 1.760 *H Total Protein 6.1 Albumin 2.5 L Globulin 3.60 H Albumin/Globulin Ratio 0.69 Medications Medication Current Medications Atorvastatin Calcium (Lipitor) 80 mg DAILY@21 PO Last administered on 08/30/18at 21:44; Admin Dose 80 MG; Start 08/05/18 at 21:00 Miscellaneous Information 1 ea NOTE XX ; Start 08/05/18 at 09:00 Acetaminophen (Tylenol Liquid) 650 mg Q4H PRN PO ELEVATED TEMPERATURE Last administered on 08/29/18 05:44; Admin Dose 650 MG; Start 08/05/18 at 11:00 Miscellaneous Information (* Miscellaneous Pharmacy Order) Treatment of Hypoglycemia: 1.BG 51... Per protocol XX ; Start 08/05/18 at 12:00 Dextrose (D50w Syringe) 25 ml Q15M PRN IV .DECREASED GLUCOSE; Start 08/05/18 at 12:00 Dextrose (D50w Syringe) 50 ml Q15M PRN IV .DECREASED GLUCOSE; Start 08/05/18 at 12:00 Aspirin (Aspirin) 81 mg DAILY NGT Last administered on 08/30/18 08:30; Admin Dose 81 MG; Start 08/06/18 at 09:00 Multivitamins (Multivitamin) 30 ml DAILY NGT Last administered on 08/30/18 08:30; Admin Dose 30 ML; Start 08/09/18 at 09:00 Zinc Sulfate (Zinc Sulfate) 220 mg DAILY NGT Last administered on 08/30/18 08:29; Admin Dose 220 MG; Start 08/09/18 at 09:00 Folic Acid (Folic Acid) 1 mg DAILY NGT Last administered on 08/30/18 08:30; Admin Dose 1 MG; Start 08/09/18 at 09:00 Ascorbic Acid (Vitamin C) 500 mg DAILY NGT Last administered on 08/30/18 08:30; Admin Dose 500 MG; Start 08/09/18 at 09:00 Albuterol (Ventolin Hfa) 4 puff Q6HWA RESP THERAPY INH Last administered on 08/31/18 13:10; Admin Dose 4 PUFF; Start 08/09/18 at 14:00 Ipratropium [place] (Atrovent Hfa) 4 puff Q6H RESP THERAPY INH Last administered on 08/31/18 07:50; Admin Dose 4 PUFF; Start 08/09/18 at 14:00 IV Flush (NS 10 ml) 10 ml PRN PRN IV IV PROTOCOL; Start 08/11/18 at 16:30 Heparin Sodium (Porcine) (Heparin (1000 Units/ml)) 3,000 unit PRN PRN CATHETER Dialysis Last administered on 08/31/18 12:16; Admin Dose 3,000 UNIT; Start 08/12/18 at 14:30 Labetalol HCl (Labetalol) 10 mg Q4H PRN IV ELEVATED SYSTOLIC BP > 180 Last administered on 08/20/18 16:54; Admin Dose 10 MG; Start 08/14/18 at 19:00 Hydralazine HCl (Apresoline) 20 mg Q2 PRN IV ELEVATED SYSTOLIC BP Last administered on 08/22/18 16:18; Admin Dose 20 MG; Start 08/16/18 at 08:00 Docusate Sodium (Colace Liquid Cup) 100 mg BID GTB Last administered on 08/30/18 21:44; Admin Dose 100 MG; Start 08/18/18 at 09:00 Clopidogrel Bisulfate (plaVIX) 75 mg DAILY NGT Last administered on 08/30/18 08:30; Admin Dose 75 MG; Start 08/18/18 at 13:30 Rifaximin (Xifaxan) 200 mg TID PO Last administered on 08/30/18 21:44; Admin Dose 200 MG; Start 08/19/18 at 13:00 Sevelamer Carbonate (Renvela) 2.4 gm WITH MEALS GTB Last administered on 08/30/18 10:34; Admin Dose 2.4 GM; Start 08/23/18 at 11:30 Ondansetron HCl (Zofran Inj) 4 mg Q4H PRN IV NAUSEA AND/OR VOMITING Last administered on 08/26/18 18:27; Admin Dose 4 MG; Start 08/23/18 at 14:30 Lactobacillus Acidophilus/ Rhamnosus (Culturelle) 1 cap TID GTB Last administered on 08/30/18 21:45; Admin Dose 1 CAP; Start 08/24/18 at 13:00 Albumin Human 100 ml @ 100 mls/hr WITH DIALYSIS PRN IV SBP <90 DURING DIALYSIS; Start 08/26/18 at 12:00 Sodium Chloride (NS) -To prime the dialy... DIRECTED FOR HD PRN IV HD; Start 08/26/18 at 12:00 Nitroglycerin (Nitroglycerin 2% Oint) 0.5 inch Q6 PRN TD CHEST PAIN; Start 08/27/18 at 00:30 Lorazepam (Ativan) 1 mg Q4H PRN IV ANXIETY Last administered on 08/27/18 04:14; Admin Dose 1 MG; Start 08/27/18 at 04:30 Sodium Chloride 500 ml @ 0 mls/hr Q0M IV Last administered on 08/27/18 06:51; Admin Dose 1,000 MLS/HR; Start 08/27/18 at 06:30 Vancomycin HCl (Vanco Iv Per Pharmacy) VANCOMYCIN PER PHARMACY PER PROTOCOL XX ; Start 08/27/18 at 10:00 Cefepime HCl 50 ml @ 100 mls/hr Q24H IVPB Last administered on 08/30/18 10:34; Admin Dose 100 MLS/HR; Start 08/27/18 at 10:30 Eye Lubricant (Artificial Tears Oph) 2 drop Q2H PRN BOTH EYES dry eyes; Start 08/28/18 at 01:30 Heparin Sodium (Porcine) (Heparin (5000 Units/1ml)) 5,000 unit Q8 SC Last administered on 08/31/18 06:42; Admin Dose 5,000 UNIT; Start 08/29/18 at 14:00 Epoetin Jarrell-epbx (RETACRIT(esrd)) 10,000 unit MoWeFr@1700 SC Last administered on 08/29/18 18:04; Admin Dose 10,000 UNIT; Start 08/29/18 at 17:00 Morphine Sulfate (morphine) 3 mg Q1H PRN GTB PAIN NOT RELIEVED BY OTHERS Last administered on 08/30/18 13:12; Admin Dose 3 MG; Start 08/29/18 at 12:00 Lansoprazole (Prevacid) 30 mg DAILY@06 GTB Last administered on 08/31/18 06:34; Admin Dose 30 MG; Start 08/30/18 at 06:00 Carvedilol (Coreg) 25 mg TID PO Last administered on 08/30/18at 21:45; Admin Dose 25 MG; Start 08/30/18 at 09:00 WIN LUCIANO NP Aug 31, 2018 13:12
[2018-08-31] MEDS: CEFEPIME 1GM/50 ML (PMX) 50 ML IVPB SCH (14:11)
[2018-08-31] MEDS: CLOPIDOGREL 75 MG TAB NGT SCH (14:39)
[2018-08-31] MEDS: MULTIVITAMINS 30 ML CUP NGT SCH (14:39)
[2018-08-31] MEDS: FOLIC ACID 1 MG TAB NGT SCH (14:40)
[2018-08-31] MEDS: ASPIRIN 81 MG TAB NGT SCH (14:40)
[2018-08-31] MEDS: ZINC SULFATE 220 MG CAP NGT SCH (14:40)
[2018-08-31] MEDS: ASCORBIC ACID 500 MG TAB NGT SCH (14:40)
[2018-08-31] MEDS: EPOETIN ALFA-EPBX (ESRD) 10,000 UNIT/ML VIAL SC SCH (17:51)
--- NOTE | 2018-08-31 18:22 | CONS ---
Consult Date/Type/Reason Admit Date/Time Aug 04, 2018 at 23:10 Initial Consult Date 08/05/18 Type of Consultation: cv Requesting Provider: HARPAL AGGARWAL MD Date/Time of Note DATE: 08/31/18 TIME: 18:19 Subjective Interventional cardiology follow-up progress note Subjective: Events noted discussed with the staff and sister and mothers Patient remains on the vent s/p trach . TELE was reviewed. No V tachycardia or V fibrillation. BP is stable now pt with no more bleeding at PEG or trach sites. she denies any cp to me now pt had no more issues with trach last night Patient complained of right foot pain. events noted s/p PCI 100% occluded LAD 08/04 S/P PCI LCX/ OM s/p trach 08/22/18 Objective: General: Obese female no acute distress HEENT: NC/AT. pupils are equal. round. NECK: . no stridor. s/p trach CV: RRR. systolic murmur; no gallop or rubs. PULM: no wheezing + diffuse rhonchi. GI: Obese SOFT, NT, ND, no rebound or guarding s/pPEG Extremity: +B/L LE edema. no clubbing. neuro: awake and follows commands Psych: Calm now rectal: deferred EKG August 06, 2018 was personally within normal sinus rhythm. T wave inversions anterior and inferior leads ECG 08/07: NSR ST T abn c/w ant/lat ischemia CXR 08/14: Nonspecific patchy bilateral pulmonary opacity, mildly improved on the right. No pneumothorax. Endotracheal tube, nasogastric tube, and right-sided PICC line remain in place. Stable mild cardiomegaly. The osseous structures are remarkable for degenerative enthesopathy of the spine. Chest x-ray done August 06 shows:No evidence for active cardiopulmonary disease. CXR 08/19: Diffuse bilateral reticular nodular infiltrates unchanged. Question bronchopneumonia versus failure. CXR 08/28/18: Allowing for support structures overlying the right base, no significant change. Left mid and bibasilar air space opacities/infiltrates are again present. Lines and tubes are stable ECHO personally reviewed Normal left ventricular cavity size. Normal left ventricular wall thickness. Ejection fraction is visually estimated at 55-65 %. Normal appearance of the mitral valve. Mitral valve is not well visualized. No mitral valve regurgitation is seen. Aortic valve not well visualized. No aortic regurgitation. Normal appearance of the tricuspid valve. Unable to obtain RVSP due to minimal presence of tricuspid regurgitation. No evidence of tricuspid regurgitation. Normal pericardium with no significant pericardial effusion. suboptimal study. Objective Vitals Vital Signs Date Temp Pulse Resp B/P (MAP) Pulse Ox O2 O2 Flow FiO2 Time Delivery Rate 08/31/18 87 18 99 30 17:17 08/31/18 98.6 134/85 Trach 15:34 (101) Collar Intake and Output 08/30/18 08/30/18 08/31/18 1414:59 22:59 06:59 IntakeIntake Total 390 ml BalanceBalance 390 ml Results/Medications Result Diagram: 08/31/1861708/31/1818 Results 24 hrs Laboratory Tests Test 08/31/18 06:18 White Blood Count 12.2 H Red Blood Count 2.91 L Hemoglobin 8.5 L Hematocrit 27.1 L Mean Corpuscular Volume 93.1 Mean Corpuscular Hemoglobin 29.2 Mean Corpuscular Hemoglobin Concent 31.4 L Red Cell Distribution Width 16.4 H Platelet Count 170 Mean Platelet Volume 14.0 H Immature Granulocytes % 5.400 H Neutrophils % Segmented Neutrophils % (Manual) 69 Band Neutrophils % (Manual) 2 Lymphocytes % Lymphocytes % (Manual) 15 Monocytes % Monocytes % (Manual) 6 Eosinophils % Eosinophils % (Manual) 6 Basophils % Basophils % (Manual) 1 Metamyelocytes % (manual) 1 H Nucleated Red Blood Cells % 0.0 Immature Granulocytes # 0.660 H Neutrophils # Neutrophils # (Manual) 8.4 H Band Neutrophils # 0.2 Lymphocytes (Manual) 1.8 Lymphocytes # Monocytes # Monocytes # (Manual) 0.7 Eosinophils # Basophils # Basophils # (Manual) 0.1 H Metamyelocytes # 0.1 H Nucleated Red Blood Cells # Platelet Estimate NORMAL Giant Platelets 3 H Polychromasia 3+ Hypochromasia 1+ Poikilocytosis 1+ Anisocytosis 2+ Microcytosis 2+ Prothrombin Time 14.2 Prothrombin Time Ratio 1.1 INR International Normalized Ratio 1.09 Sodium Level 135 Potassium Level 3.9 Chloride Level 101 Carbon Dioxide Level 27 Anion Gap 7 Blood Urea Nitrogen 69 H Creatinine 3.24 #H Est Glomerular Filtrat Rate mL/min 16 L Glucose Level 111 Calcium Level 9.0 Phosphorus Level 4.7 Magnesium Level 2.4 Total Bilirubin 0.2 Direct Bilirubin 0.00 Indirect Bilirubin 0.2 Aspartate Amino Transf (AST/SGOT) 236 H Alanine Aminotransferase (ALT/SGPT) 123 H Alkaline Phosphatase 928 H Creatine Kinase 1451 #H Creatine Kinase Index 2.2 Creatinine Kinase MB (Mass) 31.50 H Troponin I 1.760 *H Total Protein 6.1 Albumin 2.5 L Globulin 3.60 H Albumin/Globulin Ratio 0.69 Medications Current Medications Atorvastatin Calcium (Lipitor) 80 mg DAILY@21 PO Last administered on 08/30/18 21:44; Admin Dose 80 MG; Start 08/05/18 at 21:00 Miscellaneous Information 1 ea NOTE XX ; Start 08/05/18 at 09:00 Acetaminophen (Tylenol Liquid) 650 mg Q4H PRN PO ELEVATED TEMPERATURE Last administered on 08/29/18 05:44; Admin Dose 650 MG; Start 08/05/18 at 11:00 Miscellaneous Information (* Miscellaneous Pharmacy Order) Treatment of Hypoglycemia: 1.BG 51... Per protocol XX ; Start 08/05/18 at 12:00 Dextrose (D50w Syringe) 25 ml Q15M PRN IV .DECREASED GLUCOSE; Start 08/05/18 at 12:00 Dextrose (D50w Syringe) 50 ml Q15M PRN IV .DECREASED GLUCOSE; Start 08/05/18 at 12:00 Aspirin (Aspirin) 81 mg DAILY NGT Last administered on 08/31/18 14:40; Admin Dose 81 MG; Start 08/06/18 at 09:00 Multivitamins (Multivitamin) 30 ml DAILY NGT Last administered on 08/31/18 14:39; Admin Dose 30 ML; Start 08/09/18 at 09:00 Zinc Sulfate (Zinc Sulfate) 220 mg DAILY NGT Last administered on 08/31/18 14:40; Admin Dose 220 MG; Start 08/09/18 at 09:00 Folic Acid (Folic Acid) 1 mg DAILY NGT Last administered on 08/31/18 14:40; Admin Dose 1 MG; Start 08/09/18 at 09:00 Ascorbic Acid (Vitamin C) 500 mg DAILY NGT Last administered on 08/31/18 14:40; Admin Dose 500 MG; Start 08/09/18 at 09:00 Albuterol (Ventolin Hfa) 4 puff Q6HWA RESP THERAPY INH Last administered on 08/31/18 13:10; Admin Dose 4 PUFF; Start 08/09/18 at 14:00 Ipratropium [place] (Atrovent Hfa) 4 puff Q6H RESP THERAPY INH Last administered on 08/31/18 07:50; Admin Dose 4 PUFF; Start 08/09/18 at 14:00 IV Flush (NS 10 ml) 10 ml PRN PRN IV IV PROTOCOL; Start 08/11/18 at 16:30 Heparin Sodium (Porcine) (Heparin (1000 Units/ml)) 3,000 unit PRN PRN CATHETER Dialysis Last administered on 08/31/18 12:16; Admin Dose 3,000 UNIT; Start 08/12/18 at 14:30 Labetalol HCl (Labetalol) 10 mg Q4H PRN IV ELEVATED SYSTOLIC BP > 180 Last administered on 08/20/18 16:54; Admin Dose 10 MG; Start 08/14/18 at 19:00 Hydralazine HCl (Apresoline) 20 mg Q2 PRN IV ELEVATED SYSTOLIC BP Last adm inistered on 08/22/18 16:18; Admin Dose 20 MG; Start 08/16/18 at 08:00 Docusate Sodium (Colace Liquid Cup) 100 mg BID GTB Last administered on 08/30/18 21:44; Admin Dose 100 MG; Start 08/18/18 at 09:00 Clopidogrel Bisulfate (plaVIX) 75 mg DAILY NGT Last administered on 08/31/18 14:39; Admin Dose 75 MG; Start 08/18/18 at 13:30 Rifaximin (Xifaxan) 200 mg TID PO Last administered on 08/31/18 14:10; Admin Dose 200 MG; Start 08/19/18 at 13:00 Sevelamer Carbonate (Renvela) 2.4 gm WITH MEALS GTB Last administered on 08/31/18 17:48; Admin Dose 2.4 GM; Start 08/23/18 at 11:30 Ondansetron HCl (Zofran Inj) 4 mg Q4H PRN IV NAUSEA AND/OR VOMITING Last administered on 08/26/18 18:27; Admin Dose 4 MG; Start 08/23/18 at 14:30 Lactobacillus Acidophilus/ Rhamnosus (Culturelle) 1 cap TID GTB Last ad ministered on 08/31/18 14:10; Admin Dose 1 CAP; Start 08/24/18 at 13:00 Albumin Human 100 ml @ 100 mls/hr WITH DIALYSIS PRN IV SBP <90 DURING DIALYSIS; Start 08/26/18 at 12:00 Sodium Chloride (NS) -To prime the dialy... DIRECTED FOR HD PRN IV HD; Start 08/26/18 at 12:00 Nitroglycerin (Nitroglycerin 2% Oint) 0.5 inch Q6 PRN TD CHEST PAIN; Start 08/27/18 at 00:30 Lorazepam (Ativan) 1 mg Q4H PRN IV ANXIETY Last administered on 08/27/18 04:14; Admin Dose 1 MG; Start 08/27/18 at 04:30 Sodium Chloride 500 ml @ 0 mls/hr Q0M IV Last administered on 08/27/18 06:51; Admin Dose 1,000 MLS/HR; Start 08/27/18 at 06:30 Vancomycin HCl (Vanco Iv Per Pharmacy) VANCOMYCIN PER PHARMACY PER PROTOCOL XX ; Start 08/27/18 at 10:00 Cefepime HCl 50 ml @ 100 mls/hr Q24H IVPB Last administered on 08/31/18 14:11; Admin Dose 100 MLS/HR; Start 08/27/18 at 10:30 Eye Lubricant (Artificial Tears Oph) 2 drop Q2H PRN BOTH EYES dry eyes; Start 08/28/18 at 01:30 Heparin Sodium (Porcine) (Heparin (5000 Units/1ml)) 5,000 unit Q8 SC Last administered on 08/31/18 14:28; Admin Dose 5,000 UNIT; Start 08/29/18 at 14:00 Epoetin Jarrell-epbx (RETACRIT(esrd)) 10,000 unit MoWeFr@1700 SC Last administered on 08/31/18 17:51; Admin Dose 10,000 UNIT; Start 08/29/18 at 17:00 Morphine Sulfate (morphine) 3 mg Q1H PRN GTB PAIN NOT RELIEVED BY OTHERS Last administered on 08/30/18 13:12; Admin Dose 3 MG; Start 08/29/18 at 12:00 Lansoprazole (Prevacid) 30 mg DAILY@06 GTB Last administered on 08/31/18at 06:34; Admin Dose 30 MG; Start 08/30/18 at 06:00 Carvedilol (Coreg) 25 mg TID PO Last administered on 08/31/18at 14:11; Admin Dose 25 MG; Start 08/30/18 at 09:00 Assessment/Plan Hospital Course (Demo Recall) 1. s/p V. fib cardiac arrest 2. Acute myocardial infarction 3. Status post emergent PCI of the 100% occluded LAD as well as PTCA of the diagonal and PCI LCX/ OM 4. Diabetes 5. Respiratory failure status post intubation on the vent 6. Hypertension 7. Renal failure : acute on chronic 8. Likely history of congestive heart failure 9. Dyslipidemia 10. Encephalopathy: Clear anoxic brain injury on hypothermia protocol 11. Morbid obesity 12. Anemia 13. elevated LFT 14. fever, bacteremia pneumonia 15. Malnutrition, anasarca . 16. septic shock and staph aureus bacteremia 17. oropharyngeal bleeding 18. CVA Recommendations: Continue with aspirin plavix Antibiotic management as per ID recommendation. on Vanco HD as per renal Vent support respiratory care as per internal medicine and pulmonary consultants. s/p Trach now inc Coreg as tolerated/needed Monitor renal function. f/u renal consult rec regarding hemodialysis PPI . Transfusion prn given her severe anemia and MS/ VF pt still has a high grade 90% proximal RCA Stenosis. WILL PLAN for PCI RCA at a later time , probably monday once infection is resolved and trach issues have been resolved AND OK with renal . Risks benefits and alternatives of procedure discussed with the patient and her sister and her mother in detail. Risks including but not limited to risk of infection vascular claudication bleeding complication MS stroke arrhythmia renal failure etc. discussed. Consent has been obtained hep SQ for DVT prophylaxis CODE STATUS full code Thank you for his referral. We will continue to follow along with you as needed over the weekend. LOIS JOHNSON MD [facility] LOIS JOHNSON MD Aug 31, 2018 18:21
[2018-08-31] MEDS: ACETAMINOPHEN 650MG/20.3ML CUP PO PRN (18:38)
[2018-08-31] MEDS: ATORVASTATIN 80 MG TAB PO SCH (21:51)
[2018-09-01] VITALS (24 sets, daily range): BP systolic 123–147; BP diastolic 67–83; PULSE 82–92; RESP 17–23
[2018-09-01] MEDS: ACETAMINOPHEN 650MG/20.3ML CUP PO PRN (00:29)
[2018-09-01] MEDS: IPRATROPIUM (HFA) 12.9 GM INHALER INH SCH ×4 (01:47→19:51)
[2018-09-01] MEDS: ONDANSETRON 4 MG INJ IV PRN (03:18)
[2018-09-01] MEDS: LANSOPRAZOLE 30 MG CAP GTB SCH (06:00)
[2018-09-01] MEDS: HEPARIN 5,000 UNIT/1 ML VIAL SC SCH ×3 (06:04→22:18)
[2018-09-01] MEDS: ALBUTEROL HFA 8 GM INHALER INH SCH ×3 (08:34→19:50)
--- NOTE | 2018-09-01 08:39 | PN ---
DATE: 09/01/2018 SUBJECTIVE: The patient is stable, no events overnight. Patient had hemodialysis yesterday, tolerat ed it well. OBJECTIVE: VITAL SIGNS: Blood pressure is 137/75, pulse 88, respiration 18, temperature 99.0. HEENT: Head is normocephalic. NECK: Supple. HEART: Regular rate. LUNGS: Show diminished breath sounds at the base. ABDOMEN: Soft, nontender to palpation. No rebound or guarding. EXTREMITIES: Negative for clubbing, cyanosis, no edema. DERMATOLOGIC: No rashes. MUSCULOSKELETAL: No joint effusion. NEUROLOGIC: No change in exam. MEDICATIONS: The patient's medications have been reviewed. LABORATORY DATA: Has been reviewed. ASSESSMENT AND PLAN: 1. Anuric acute kidney injury with previously normal baseline creatinine. Etiology of acute kidney injury is secondary to acute tubular necrosis. Unfortunately, the patient has shown no signs of néstor l recovery. I spoke with Dr. Wilson about placement of PermCath possibly to be done early next we ek. We will therefore continue intermittent dialysis. Anticipate next dialysis on Monday. 2. Volume overload, improved. Continue ultrafiltration dialysis. 3. Anemia. Monitor hemoglobin and hematocrit levels. Continue Epogen. 4. Rhabdomyolysis, improved. Continue to monitor. 5. Mineral bone disorder, monitor calcium and phosphorus levels. 6. Ventilatory dependent respiratory failure. Vent settings and ABG was reviewed. Continue to . Follow up with pulmonary. 7. Coronary artery disease. The patient is status post cardiac catheterization with PCI. Continue medical management. 8. Sepsis, status post shock. The patient has completed antibiotic course. 9. Acute encephalopathy, etiology is toxic metabolic. Mental status improving. 10. Acute cerebrovascular accident. Continue medical management. 11. Dysphagia. Continue tube feeding. 12. Morbid obesity. 13. Status post cardiac arrest. 14. Status post ST elevated myocardial infarction. Continue medical management. Dictated By: BHUMI JOSEPH/NTS Conf#: [id number] DID#: [id number]
[2018-09-01] MEDS: ASPIRIN 81 MG TAB NGT SCH (08:44)
[2018-09-01] MEDS: FOLIC ACID 1 MG TAB NGT SCH (08:44)
[2018-09-01] MEDS: MULTIVITAMINS 30 ML CUP NGT SCH (08:44)
[2018-09-01] MEDS: RIFAXIMIN 200 MG TAB PO SCH ×3 (08:44→20:45)
[2018-09-01] MEDS: CLOPIDOGREL 75 MG TAB NGT SCH (08:44)
[2018-09-01] MEDS: ZINC SULFATE 220 MG CAP NGT SCH (08:44)
[2018-09-01] MEDS: SEVELAMER CARBONATE 2.4 GM PKT GTB SCH ×3 (08:44→17:31)
[2018-09-01] MEDS: ASCORBIC ACID 500 MG TAB NGT SCH (08:44)
[2018-09-01] MEDS: LACTOBACILLUS RHAMNOSUS CAP GTB SCH ×3 (08:44→20:46)
[2018-09-01] MEDS: DOCUSATE SODIUM 10 MG/ML (10ML CUP) GTB SCH ×2 (08:46→20:54)
[2018-09-01] MEDS: oxyCODONE 5 MG TAB PO PRN (10:09)
[2018-09-01] MEDS: CEFEPIME 1GM/50 ML (PMX) 50 ML IVPB SCH (10:10)
--- NOTE | 2018-09-01 10:45 | CONS ---
Consult Date/Type/Reason Admit Date/Time Aug 04, 2018 at 23:10 Initial Consult Date 08/05/18 Type of Consult Pulmonary Requesting Provider: HARPAL AGGARWAL MD Date/Time of Note DATE: 09/01/18 TIME: 10:44 Subjective complaining of neuropathic pain in her feet. Stable on mechanical ventilation awake alert and oriented. Objective Vital Signs Date Temp Pulse Resp B/P (MAP) Pulse Ox O2 O2 Flow FiO2 Time Delivery Rate 09/01/18 88 18 100 30 09:40 09/01/18 99.0 137/75 07:34 (95) 08/31/18 Trach 15:34 Collar Intake and Output 08/31/18 08/31/18 09/01/18 1515:00 23:00 07:00 IntakeIntake Total 580 ml 530 ml OutputOutput Total 2400 ml 50 ml 325 ml BalanceBalance -2400 ml 530 ml 205 ml Exam GENERAL: Pleasant young lady on mechanical ventilation via tracheostomy VITAL SIGNS: per chart NECK: Supple. No JVD or lymphadenopathy. CARDIAC EXAM: S1, S2. No added sounds or murmurs. CHEST: clear bilaterally, No added sounds, rales or wheezes ABDOMEN: Soft, nontender. No guarding or rebound. EXTREMITIES: No cyanosis, clubbing or edema. NEUROLOGIC: Generalized weakness. No focal deficits. Vent Setting Ventilator Support Mode: AC Fraction of Inspired Oxygen pe: 30 Positive End Expiratory Pressu: 5.0 Results/Medications Result Diagram: 09/01/18 0500 09/01/18 0500 Results 24 hrs Laboratory Tests Test 09/01/18 05:00 White Blood Count 13.0 H Red Blood Count 2.93 L Hemoglobin 8.6 L Hematocrit 28.4 L Mean Corpuscular Volume 96.9 Mean Corpuscular Hemoglobin 29.4 Mean Corpuscular Hemoglobin Concent 30.3 L Red Cell Distribution Width 20.3 #H Platelet Count 170 Mean Platelet Volume 14.1 H Immature Granulocytes % 5.200 H Neutrophils % Segmented Neutrophils % (Manual) 66 Band Neutrophils % (Manual) 2 Lymphocytes % Lymphocytes % (Manual) 15 Reactive Lymphocytes % (Manual) 4 H Monocytes % Monocytes % (Manual) 7 Eosinophils % Eosinophils % (Manual) 2 Basophils % Myelocytes % (Manual) 4 H Nucleated Red Blood Cells % 0.0 Immature Granulocytes # 0.680 H Neutrophils # Neutrophils # (Manual) 8.6 H Band Neutrophils # 0.2 Lymphocytes (Manual) 1.9 Lymphocytes # Reactive Lymphocytes # 0.5 H Monocytes # Monocytes # (Manual) 0.9 Eosinophils # Basophils # Myelocytes # 0.5 H Nucleated Red Blood Cells # Platelet Estimate NORMAL Giant Platelets 3 H Polychromasia 2+ Poikilocytosis 1+ Anisocytosis 1+ Microcytosis 1+ Stomatocytes 1+ Sodium Level 136 Potassium Level 3.6 Chloride Level 98 Carbon Dioxide Level 28 Anion Gap 10 Blood Urea Nitrogen 49 #H Creatinine 2.88 H Est Glomerular Filtrat Rate mL/min 18 L Glucose Level 104 Calcium Level 9.0 Total Bilirubin 0.1 L Direct Bilirubin 0.00 Indirect Bilirubin 0.1 Aspartate Amino Transf (AST/SGOT) 181 H Alanine Aminotransferase (ALT/SGPT) 107 H Alkaline Phosphatase 733 H Total Protein 6.9 Albumin 3.0 L Globulin 3.90 H Albumin/Globulin Ratio 0.76 Random Vancomycin Level 14.5 Medications Current Medications Atorvastatin Calcium (Lipitor) 80 mg DAILY@21 PO Last administered on 08/31/18at 21:51; Admin Dose 80 MG; Start 08/05/18 at 21:00 Miscellaneous Information 1 ea NOTE XX ; Start 08/05/18 at 09:00 Acetaminophen (Tylenol Liquid) 650 mg Q4H PRN PO ELEVATED TEMPERATURE Last administered on 09/01/18at 00:29; Admin Dose 650 MG; Start 08/05/18 at 11:00; Status Hold Miscellaneous Information (* Miscellaneous Pharmacy Order) Treatment of Hypoglycemia: 1.BG 51... Per protocol XX ; Start 08/05/18 at 12:00 Dextrose (D50w Syringe) 25 ml Q15M PRN IV .DECREASED GLUCOSE; Start 08/05/18 at 12:00 Dextrose (D50w Syringe) 50 ml Q15M PRN IV .DECREASED GLUCOSE; Start 08/05/18 at 12:00 Aspirin (Aspirin) 81 mg DAILY NGT Last administered on 09/01/18 08:44; Admin Dose 81 MG; Start 08/06/18 at 09:00 Multivitamins (Multivitamin) 30 ml DAILY NGT Last administered on 09/01/18 08:44; Admin Dose 30 ML; Start 08/09/18 at 09:00 Zinc Sulfate (Zinc Sulfate) 220 mg DAILY NGT Last administered on 09/01/18 08:44; Admin Dose 220 MG; Start 08/09/18 at 09:00 Folic Acid (Folic Acid) 1 mg DAILY NGT Last administered on 09/01/18 08:44; Admin Dose 1 MG; Start 08/09/18 at 09:00 Ascorbic Acid (Vitamin C) 500 mg DAILY NGT Last administered on 09/01/18 08:44; Admin Dose 500 MG; Start 08/09/18 at 09:00 Albuterol (Ventolin Hfa) 4 puff Q6HWA RESP THERAPY INH Last administered on 09/01/18 08:34; Admin Dose 4 PUFF; Start 08/09/18 at 14:00 Ipratropium [place] (Atrovent Hfa) 4 puff Q6H RESP THERAPY INH Last administered on 09/01/18 08:34; Admin Dose 4 PUFF; Start 08/09/18 at 14:00 IV Flush (NS 10 ml) 10 ml PRN PRN IV IV PROTOCOL; Start 08/11/18 at 16:30 Heparin Sodium (Porcine) (Heparin (1000 Units/ml)) 3,000 unit PRN PRN CATHETER Dialysis Last administered on 08/31/18 12:16; Admin Dose 3,000 UNIT; Start 08/12/18 at 14:30 Labetalol HCl (Labetalol) 10 mg Q4H PRN IV ELEVATED SYSTOLIC BP > 180 Last administered on 08/20/18 16:54; Admin Dose 10 MG; Start 08/14/18 at 19:00 Hydralazine HCl (Apresoline) 20 mg Q2 PRN IV ELEVATED SYSTOLIC BP Last administered on 08/22/18 16:18; Admin Dose 20 MG; Start 08/16/18 at 08:00 Docusate Sodium (Colace Liquid Cup) 100 mg BID GTB Last administered on 08/30/18 21:44; Admin Dose 100 MG; Start 08/18/18 at 09:00 Clopidogrel Bisulfate (plaVIX) 75 mg DAILY NGT Last administered on 09/01/18 08:44; Admin Dose 75 MG; Start 08/18/18 at 13:30 Rifaximin (Xifaxan) 200 mg TID PO Last administered on 09/01/18 08:44; Admin Dose 200 MG; Start 08/19/18 at 13:00 Sevelamer Carbonate (Renvela) 2.4 gm WITH MEALS GTB Last administered on 09/01/18 08:44; Admin Dose 2.4 GM; Start 08/23/18 at 11:30 Ondansetron HCl (Zofran Inj) 4 mg Q4H PRN IV NAUSEA AND/OR VOMITING Last administered on 09/01/18 03:18; Admin Dose 4 MG; Start 08/23/18 at 14:30 Lactobacillus Acidophilus/ Rhamnosus (Culturelle) 1 cap TID GTB Last administered on 09/01/18 08:44; Admin Dose 1 CAP; Start 08/24/18 at 13:00 Albumin Human 100 ml @ 100 mls/hr WITH DIALYSIS PRN IV SBP <90 DURING DIALYSIS; Start 08/26/18 at 12:00 Sodium Chloride (NS) -To prime the dialy... DIRECTED FOR HD PRN IV HD; Start 08/26/18 at 12:00 Nitroglycerin (Nitroglycerin 2% Oint) 0.5 inch Q6 PRN TD CHEST PAIN; Start 08/27/18 at 00:30 Lorazepam (Ativan) 1 mg Q4H PRN IV ANXIETY Last administered on 08/27/18 04:14; Admin Dose 1 MG; Start 08/27/18 at 04:30 Sodium Chloride 500 ml @ 0 mls/hr Q0M IV Last administered on 08/27/18at 06:51; Admin Dose 1,000 MLS/HR; Start 08/27/18 at 06:30 Vancomycin HCl (Vanco Iv Per Pharmacy) VANCOMYCIN PER PHARMACY PER PROTOCOL XX ; Start 08/27/18 at 10:00 Cefepime HCl 50 ml @ 100 mls/hr Q24H IVPB Last administered on 09/01/18at 10:10; Admin Dose 100 MLS/HR; Start 08/27/18 at 10:30 Eye Lubricant (Artificial Tears Oph) 2 drop Q2H PRN BOTH EYES dry eyes; Start 08/28/18 at 01:30 Heparin Sodium (Porcine) (Heparin (5000 Units/1ml)) 5,000 unit Q8 SC Last administered on 09/01/18 06:04; Admin Dose 5,000 UNIT; Start 08/29/18 at 14:00 Epoetin Jarrell-epbx (RETACRIT(esrd)) 10,000 unit MoWeFr@1700 SC Last administered on 08/31/18at 17:51; Admin Dose 10,000 UNIT; Start 08/29/18 at 17:00 Morphine Sulfate (morphine) 3 mg Q1H PRN GTB PAIN NOT RELIEVED BY OTHERS Last administered on 08/30/18at 13:12; Admin Dose 3 MG; Start 08/29/18 at 12:00 Lansoprazole (Prevacid) 30 mg DAILY@06 GTB Last administered on 09/01/18at 06:00; Admin Dose 30 MG; Start 08/30/18 at 06:00 Carvedilol (Coreg) 25 mg TID PO Last administered on 09/01/18at 08:46; Admin Dose 25 MG; Start 08/30/18 at 09:00 Vancomycin HCl 250 ml @ 125 mls/hr ONCE IVPB ; Start 09/01/18 at 18:00; Stop 09/01/18 at 18:01 Oxycodone HCl (Roxicodone) 5 mg Q4H PRN PO MODERATE PAIN LEVEL 4-6 Last administered on 09/01/18at 10:09; Admin Dose 5 MG; Start 09/01/18 at 10:00 Assessment/Plan Hospital Course (Demo Recall) IMP: 1. Ventricular Fibrillation Arrest--s/p ROSC 2/2 STEMI s/p PCI status post hypothermia protocol. Multivessel coronary artery disease status post stent placement x3 2. STEMI, Status post stent x3 placement. 3. CVA multiple infarcts noted. 4. Hypoxemic respiratory failure no status post tracheostomy placement 5. HUSEYIN--likely ATN continues hemodialysis 6. Ischemic hepatopathy--2/2 arrest 7. Resolving encephalopathy RECS: 1. Continue mechanical ventilation, continue pulmonary toilet tracheostomy care SIMV weaning, speech therapy evaluation and PMV trials 2. DC trach sutures 3. Continue tube feeding 4. PEG tube feeding 5. Continue Abx 6. Pulmonary toilet 7. Hemodialysis per nephrology 8. Physical therapy evaluation CHINO ANDERSON MD, [facility] Sep 01, 2018 10:45
--- NOTE | 2018-09-01 15:00 | PN ---
Date/Time of Note Date/Time of Note DATE: 09/01/18 TIME: 14:58 Objective Vitals Vital Signs Date Temp Pulse Resp B/P (MAP) Pulse Ox O2 O2 Flow FiO2 Time Delivery Rate 09/01/18 86 20 100 30 13:00 09/01/18 97.7 123/67 11:20 (85) 08/31/18 Trach 15:34 Collar Intake and Output 08/31/18 08/31/18 09/01/18 1515:00 23:00 07:00 IntakeIntake Total 580 ml 530 ml OutputOutput Total 2400 ml 50 ml 325 ml BalanceBalance -2400 ml 530 ml 205 ml Results Result Diagram: 09/01/18 0500 09/01/18 0500 Medications Medications Current Medications Atorvastatin Calcium (Lipitor) 80 mg DAILY@21 PO Last administered on 08/31/18at 21:51; Admin Dose 80 MG; Start 08/05/18 at 21:00 Miscellaneous Information 1 ea NOTE XX ; Start 08/05/18 at 09:00 Acetaminophen (Tylenol Liquid) 650 mg Q4H PRN PO ELEVATED TEMPERATURE Last administered on 09/01/18at 00:29; Admin Dose 650 MG; Start 08/05/18 at 11:00; Status Hold Miscellaneous Information (* Miscellaneous Pharmacy Order) Treatment of Hypoglycemia: 1.BG 51... Per protocol XX ; Start 08/05/18 at 12:00 Dextrose (D50w Syringe) 25 ml Q15M PRN IV .DECREASED GLUCOSE; Start 08/05/18 at 12:00 Dextrose (D50w Syringe) 50 ml Q15M PRN IV .DECREASED GLUCOSE; Start 08/05/18 at 12:00 Aspirin (Aspirin) 81 mg DAILY NGT Last administered on 09/01/18 08:44; Admin Dose 81 MG; Start 08/06/18 at 09:00 Multivitamins (Multivitamin) 30 ml DAILY NGT Last administered on 09/01/18 08:44; Admin Dose 30 ML; Start 08/09/18 at 09:00 Zinc Sulfate (Zinc Sulfate) 220 mg DAILY NGT Last administered on 09/01/18 08:44; Admin Dose 220 MG; Start 08/09/18 at 09:00 Folic Acid (Folic Acid) 1 mg DAILY NGT Last administered on 09/01/18 08:44; Admin Dose 1 MG; Start 08/09/18 at 09:00 Ascorbic Acid (Vitamin C) 500 mg DAILY NGT Last administered on 09/01/18 08:44; Admin Dose 500 MG; Start 08/09/18 at 09:00 Albuterol (Ventolin Hfa) 4 puff Q6HWA RESP THERAPY INH Last administered on 09/01/18 14:23; Admin Dose 4 PUFF; Start 08/09/18 at 14:00 Ipratropium [place] (Atrovent Hfa) 4 puff Q6H RESP THERAPY INH Last administered on 09/01/18 14:24; Admin Dose 4 PUFF; Start 08/09/18 at 14:00 IV Flush (NS 10 ml) 10 ml PRN PRN IV IV PROTOCOL; Start 08/11/18 at 16:30 Heparin Sodium (Porcine) (Heparin (1000 Units/ml)) 3,000 unit PRN PRN CATHETER Dialysis Last administered on 08/31/18 12:16; Admin Dose 3,000 UNIT; Start 08/12/18 at 14:30 Labetalol HCl (Labetalol) 10 mg Q4H PRN IV ELEVATED SYSTOLIC BP > 180 Last administered on 08/20/18 16:54; Admin Dose 10 MG; Start 08/14/18 at 19:00 Hydralazine HCl (Apresoline) 20 mg Q2 PRN IV ELEVATED SYSTOLIC BP Last administered on 08/22/18 16:18; Admin Dose 20 MG; Start 08/16/18 at 08:00 Docusate Sodium (Colace Liquid Cup) 100 mg BID GTB Last administered on 08/30/18 21:44; Admin Dose 100 MG; Start 08/18/18 at 09:00 Clopidogrel Bisulfate (plaVIX) 75 mg DAILY NGT Last administered on 09/01/18 08:44; Admin Dose 75 MG; Start 08/18/18 at 13:30 Rifaximin (Xifaxan) 200 mg TID PO Last administered on 09/01/18 12:23; Admin Dose 200 MG; Start 08/19/18 at 13:00 Sevelamer Carbonate (Renvela) 2.4 gm WITH MEALS GTB Last administered on 09/01/18 12:23; Admin Dose 2.4 GM; Start 08/23/18 at 11:30 Ondansetron HCl (Zofran Inj) 4 mg Q4H PRN IV NAUSEA AND/OR VOMITING Last administered on 09/01/18at 03:18; Admin Dose 4 MG; Start 08/23/18 at 14:30 Lactobacillus Acidophilus/ Rhamnosus (Culturelle) 1 cap TID GTB Last administered on 09/01/18at 12:23; Admin Dose 1 CAP; Start 08/24/18 at 13:00 Albumin Human 100 ml @ 100 mls/hr WITH DIALYSIS PRN IV SBP <90 DURING DIALYSIS; Start 08/26/18 at 12:00 Sodium Chloride (NS) -To prime the dialy... DIRECTED FOR HD PRN IV HD; Start 08/26/18 at 12:00 Nitroglycerin (Nitroglycerin 2% Oint) 0.5 inch Q6 PRN TD CHEST PAIN; Start 08/27/18 at 00:30 Lorazepam (Ativan) 1 mg Q4H PRN IV ANXIETY Last administered on 08/27/18at 04:14; Admin Dose 1 MG; Start 08/27/18 at 04:30 Sodium Chloride 500 ml @ 0 mls/hr Q0M IV Last administered on 08/27/18 06:51; Admin Dose 1,000 MLS/HR; Start 08/27/18 at 06:30 Vancomycin HCl (Vanco Iv Per Pharmacy) VANCOMYCIN PER PHARMACY PER PROTOCOL XX ; Start 08/27/18 at 10:00 Cefepime HCl 50 ml @ 100 mls/hr Q24H IVPB Last administered on 09/01/18at 10:10; Admin Dose 100 MLS/HR; Start 08/27/18 at 10:30 Eye Lubricant (Artificial Tears Oph) 2 drop Q2H PRN BOTH EYES dry eyes; Start 08/28/18 at 01:30 Heparin Sodium (Porcine) (Heparin (5000 Units/1ml)) 5,000 unit Q8 SC Last administered on 09/01/18at 14:32; Admin Dose 5,000 UNIT; Start 08/29/18 at 14:00 Epoetin Jarrell-epbx (RETACRIT(esrd)) 10,000 unit MoWeFr@1700 SC Last administered on 08/31/18at 17:51; Admin Dose 10,000 UNIT; Start 08/29/18 at 17:00 Morphine Sulfate (morphine) 3 mg Q1H PRN GTB PAIN NOT RELIEVED BY OTHERS Last administered on 08/30/18at 13:12; Admin Dose 3 MG; Start 08/29/18 at 12:00 Lansoprazole (Prevacid) 30 mg DAILY@06 GTB Last administered on 09/01/18at 06:00; Admin Dose 30 MG; Start 08/30/18 at 06:00 Carvedilol (Coreg) 25 mg TID PO Last administered on 09/01/18at 12:24; Admin Dose 25 MG; Start 08/30/18 at 09:00 Vancomycin HCl 250 ml @ 125 mls/hr ONCE IVPB ; Start 09/01/18 at 18:00; Stop 09/01/18 at 18:01 Oxycodone HCl (Roxicodone) 5 mg Q4H PRN PO MODERATE PAIN LEVEL 4-6 Last administered on 09/01/18at 10:09; Admin Dose 5 MG; Start 09/01/18 at 10:00 VTE Prophylaxis Risk score (from Ns)>0 risk: 13 SCD applied (from Ns): Yes Lines/Catheters IV Catheter Type: Bajwa in Place: Yes Cont'd bajwa catheter reason: terminal illness/intractable pain Assessment/Plan Hospital Course Subjective Patient doing well, moves to command, able to communicate Objective Physical exam General: Patient is laying in bed with tracheostomy Mentation: Patient is alert and oriented Head: Normocephalic atraumatic Eyes: EOMI, pupils reactive to light Neck: Supple, nontender, midline Respiratory: Coarse to auscultation bilaterally Cardiovascular: regular rate, no obvious murmurs Gastrointestinal: non-tender to palpation, bowel sounds heard. Neurological: Able to follow commands and move all extremities, although limited Skin: No new skin lesions Assessment/Plan 1. Acute hypoxic respiratory failure - Per Pulm, trach may be sitting on trach wall, doing much better now that patient's neck was repositioned - Patients mentation improved significantly after trach was adjusted, cardiothoracic surgeon was notified to possibly adjust trach, saw patient and stated no intervention needed. -Has PEG and trach 2. Acute toxic/metabolic encephalopathy-decompensated from hypercapnia, resolved -After decompensating hypoxic event earlier in the week, patient back to her previous baseline a few days ago of able to follow command and interact. - Neurology input appreciated and will reconsult if needed 3. Bilateral CVA - Found on MRI, likely thromboembolic secondary to cardiopulmonary arrest per neurology - Continue on aspirin/plavix and Lipitor 4. Anemia, blood loss and renal disease- stable - Hgb remains stable, transfuse as needed - PPI daily 5. Bilateral Pneumonia -Infectious disease on board, antibiotics per infectious disease 6. Septic shock secondary to PNA and bacteremia- resolved - Blood cultures and sputum culture results noted. - ID on board Hypotension, resolved -May be due secondary to respiratory events overnight -Pressors as needed Rhabdomyolysis -Nephrology on board, dialysis as needed, unsure if rhabdomyolysis is acute. Right leg pain -Ultrasound venous negative -Likely secondary to debility, pain medication as needed -If pain continues, will perform CT scan 7. CAD s/p PCI x2 - Cardiology on board and appreciate recommendations. Stressed importance of continuing DAPT given recent stent placements and high risk of restenosis - s/p emergent Cath 08/05 with successful PTCA and stenting of proximal and mid LAD, PTCA of the large first diagonal and thrombectomy of the LAD - Repeat PCI on 08/07 performed with stenting to LCx - plans for stenting of RCA prior to discharge if possible 8. Renal failure on HD - Nephrology on board and appreciate recommendations. Continue HD - secondary to septic shock, ATN vs prerenal vs contrast induced nephropathy - will avoid nephrotoxic agents 9. Diabetes - A1c noted - ISS not needed 10. S/p V-fib cardiac arrest secondary to STEMI - Completed hypothermia protocol 11. Disposition -Patient stable, cardiology plans for possible repeat cardiac cath sometime early next week. HARPAL PEDROZA Sep 01, 2018 14:59
--- NOTE | 2018-09-01 15:51 | CONS ---
Consultation Date/Type/Reason Admit Date/Time Aug 04, 2018 at 23:10 Initial Consult Date SUBJECTIVE: No acute events over night. No fevers. Looks comfortable VS: stable. T: 98.3 LABS reviewed. WBC- 13.0 CXR: 08/31/18: IMPRESSION: 1. Tracheostomy tube in situ. Unchanged right-sided PICC line. 2. Cardiomegaly. 3. Bibasilar infiltrates, unchanged since prior exam. Antimicrobials: Vancomycin and cefepime Microbiology: Urine culture on admission grew E. coli and Proteus, blood cultures growing oxacillin sensitive staph aureus endotracheal aspirate also growing oxacillin sensitive staph aureus ear drainage preliminary growing staph aureus, repeat blood cultures 2 days ago negative Indwelling: Trach, PEG, right femoral Devan, right upper extremity PICC line Physical examination: GEN: Obese well-developed, middle-aged woman who trach to Vent. HENT: Head atraumatic normocephalic, neck is supple PULM: chest rise symmetrical, breath sounds diminished bases. Heart: S1-S2. Abdomen distended. Bowel sounds hypoactive. Extremities: cyanotic Assessment: 1. Sepsis, status post shock 2. Healthcare associated pneumonia 3. S/p Oxacillin sensitive staph aureus bacteremia 2 to #3 4. S/p polymicrobial UTI 5. ST elevation NE, status post stent 6. Status post V. fib arrest 7. Acute renal failure, started on hemodialysis 8. 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 Anemia and thrombocytopenia 10. Acute sinusitis and bilateral mastoiditis 11. Morbid obesity 12. Diarrhea, r/o C dif Plan: Pt continuing to gradually improve. Continue current broad-spectrum antibiotics for pneumonia. Continue vent management per pulmonary. CXR noted. HD per renal. Requesting Provider: HARPAL AGGARWAL MD Date/Time of Note DATE: 09/01/18 TIME: 15:46 Exam/Review of Systems Exam Vitals Vital Signs Date Temp Pulse Resp B/P (MAP) Pulse Ox O2 O2 Flow FiO2 Time Delivery Rate 09/01/18 98.3 84 19 129/77 100 15:21 (94) 09/01/18 30 13:00 08/31/18 Trach 15:34 Collar Intake and Output 08/31/18 08/31/18 09/01/18 1515:00 23:00 07:00 IntakeIntake Total 580 ml 530 ml OutputOutput Total 2400 ml 50 ml 325 ml BalanceBalance -2400 ml 530 ml 205 ml Results Result Diagram: 09/01/18 0500 09/01/18 0500 Results 24hrs Laboratory Tests Test 09/01/18 05:00 White Blood Count 13.0 H Red Blood Count 2.93 L Hemoglobin 8.6 L Hematocrit 28.4 L Mean Corpuscular Volume 96.9 Mean Corpuscular Hemoglobin 29.4 Mean Corpuscular Hemoglobin Concent 30.3 L Red Cell Distribution Width 20.3 #H Platelet Count 170 Mean Platelet Volume 14.1 H Immature Granulocytes % 5.200 H Neutrophils % Segmented Neutrophils % (Manual) 66 Band Neutrophils % (Manual) 2 Lymphocytes % Lymphocytes % (Manual) 15 Reactive Lymphocytes % (Manual) 4 H Monocytes % Monocytes % (Manual) 7 Eosinophils % Eosinophils % (Manual) 2 Basophils % Myelocytes % (Manual) 4 H Nucleated Red Blood Cells % 0.0 Immature Granulocytes # 0.680 H Neutrophils # Neutrophils # (Manual) 8.6 H Band Neutrophils # 0.2 Lymphocytes (Manual) 1.9 Lymphocytes # Reactive Lymphocytes # 0.5 H Monocytes # Monocytes # (Manual) 0.9 Eosinophils # Basophils # Myelocytes # 0.5 H Nucleated Red Blood Cells # Platelet Estimate NORMAL Giant Platelets 3 H Polychromasia 2+ Poikilocytosis 1+ Anisocytosis 1+ Microcytosis 1+ Stomatocytes 1+ Sodium Level 136 Potassium Level 3.6 Chloride Level 98 Carbon Dioxide Level 28 Anion Gap 10 Blood Urea Nitrogen 49 #H Creatinine 2.88 H Est Glomerular Filtrat Rate mL/min 18 L Glucose Level 104 Calcium Level 9.0 Magnesium Level 2.3 Total Bilirubin 0.1 L Direct Bilirubin 0.00 Indirect Bilirubin 0.1 Aspartate Amino Transf (AST/SGOT) 181 H Alanine Aminotransferase (ALT/SGPT) 107 H Alkaline Phosphatase 733 H Total Protein 6.9 Albumin 3.0 L Globulin 3.90 H Albumin/Globulin Ratio 0.76 Random Vancomycin Level 14.5 Medications Medication Current Medications Atorvastatin Calcium (Lipitor) 80 mg DAILY@21 PO Last administered on 08/31/18at 21:51; Admin Dose 80 MG; Start 08/05/18 at 21:00 Miscellaneous Information 1 ea NOTE XX ; Start 08/05/18 at 09:00 Acetaminophen (Tylenol Liquid) 650 mg Q4H PRN PO ELEVATED TEMPERATURE Last administered on 09/01/18 00:29; Admin Dose 650 MG; Start 08/05/18 at 11:00; Status Hold Miscellaneous Information (* Miscellaneous Pharmacy Order) Treatment of Hypoglycemia: 1.BG 51... Per protocol XX ; Start 08/05/18 at 12:00 Dextrose (D50w Syringe) 25 ml Q15M PRN IV .DECREASED GLUCOSE; Start 08/05/18 at 12:00 Dextrose (D50w Syringe) 50 ml Q15M PRN IV .DECREASED GLUCOSE; Start 08/05/18 at 12:00 Aspirin (Aspirin) 81 mg DAILY NGT Last administered on 09/01/18 08:44; Admin Dose 81 MG; Start 08/06/18 at 09:00 Multivitamins (Multivitamin) 30 ml DAILY NGT Last administered on 09/01/18 08:44; Admin Dose 30 ML; Start 08/09/18 at 09:00 Zinc Sulfate (Zinc Sulfate) 220 mg DAILY NGT Last administered on 09/01/18 08:44; Admin Dose 220 MG; Start 08/09/18 at 09:00 Folic Acid (Folic Acid) 1 mg DAILY NGT Last administered on 09/01/18 08:44; Admin Dose 1 MG; Start 08/09/18 at 09:00 Ascorbic Acid (Vitamin C) 500 mg DAILY NGT Last administered on 09/01/18 08:44; Admin Dose 500 MG; Start 08/09/18 at 09:00 Albuterol (Ventolin Hfa) 4 puff Q6HWA RESP THERAPY INH Last administered on 09/01/18 14:23; Admin Dose 4 PUFF; Start 08/09/18 at 14:00 Ipratropium [place] (Atrovent Hfa) 4 puff Q6H RESP THERAPY INH Last adminis tered on 09/01/18 14:24; Admin Dose 4 PUFF; Start 08/09/18 at 14:00 IV Flush (NS 10 ml) 10 ml PRN PRN IV IV PROTOCOL; Start 08/11/18 at 16:30 Heparin Sodium (Porcine) (Heparin (1000 Units/ml)) 3,000 unit PRN PRN CATHETER Dialysis Last administered on 08/31/18 12:16; Admin Dose 3,000 UNIT; Start 08/12/18 at 14:30 Labetalol HCl (Labetalol) 10 mg Q4H PRN IV ELEVATED SYSTOLIC BP > 180 Last administered on 08/20/18 16:54; Admin Dose 10 MG; Start 08/14/18 at 19:00 Hydralazine HCl (Apresoline) 20 mg Q2 PRN IV ELEVATED SYSTOLIC BP Last administered on 08/22/18 16:18; Admin Dose 20 MG; Start 08/16/18 at 08:00 Docusate Sodium (Colace Liquid Cup) 100 mg BID GTB Last administered on 08/30/18 21:44; Admin Dose 100 MG; Start 08/18/18 at 09:00 Clopidogrel Bisulfate (plaVIX) 75 mg DAILY NGT Last administered on 09/01/18 08:44; Admin Dose 75 MG; Start 08/18/18 at 13:30 Rifaximin (Xifaxan) 200 mg TID PO Last administered on 09/01/18 12:23; Admin Dose 200 MG; Start 08/19/18 at 13:00 Sevelamer Carbonate (Renvela) 2.4 gm WITH MEALS GTB Last administered on 09/01/18 12:23; Admin Dose 2.4 GM; Start 08/23/18 at 11:30 Ondansetron HCl (Zofran Inj) 4 mg Q4H PRN IV NAUSEA AND/OR VOMITING Last a dministered on 09/01/18 03:18; Admin Dose 4 MG; Start 08/23/18 at 14:30 Lactobacillus Acidophilus/ Rhamnosus (Culturelle) 1 cap TID GTB Last administered on 09/01/18 12:23; Admin Dose 1 CAP; Start 08/24/18 at 13:00 Albumin Human 100 ml @ 100 mls/hr WITH DIALYSIS PRN IV SBP <90 DURING DIALYSIS; Start 08/26/18 at 12:00 Sodium Chloride (NS) -To prime the dialy... DIRECTED FOR HD PRN IV HD; Start 08/26/18 at 12:00 Nitroglycerin (Nitroglycerin 2% Oint) 0.5 inch Q6 PRN TD CHEST PAIN; Start 08/27/18 at 00:30 Lorazepam (Ativan) 1 mg Q4H PRN IV ANXIETY Last administered on 08/27/18 04:14; Admin Dose 1 MG; Start 08/27/18 at 04:30 Sodium Chloride 500 ml @ 0 mls/hr Q0M IV Last administered on 08/27/18 06:51; Admin Dose 1,000 MLS/HR; Start 08/27/18 at 06:30 Vancomycin HCl (Vanco Iv Per Pharmacy) VANCOMYCIN PER PHARMACY PER PROTOCOL XX ; Start 08/27/18 at 10:00 Cefepime HCl 50 ml @ 100 mls/hr Q24H IVPB Last administered on 09/01/18 10:10; Admin Dose 100 MLS/HR; Start 08/27/18 at 10:30 Eye Lubricant (Artificial Tears Oph) 2 drop Q2H PRN BOTH EYES dry eyes; Start 08/28/18 at 01:30 Heparin Sodium (Porcine) (Heparin (5000 Units/1ml)) 5,000 unit Q8 SC Last administered on 09/01/18 14:32; Admin Dose 5,000 UNIT; Start 08/29/18 at 14:00 Epoetin Jarrell-epbx (RETACRIT(esrd)) 10,000 unit MoWeFr@1700 SC Last administered on 08/31/18 17:51; Admin Dose 10,000 UNIT; Start 08/29/18 at 17:00 Morphine Sulfate (morphine) 3 mg Q1H PRN GTB PAIN NOT RELIEVED BY OTHERS Last administered on 08/30/18 13:12; Admin Dose 3 MG; Start 08/29/18 at 12:00 Lansoprazole (Prevacid) 30 mg DAILY@06 GTB Last administered on 09/01/18 06:00; Admin Dose 30 MG; Start 08/30/18 at 06:00 Carvedilol (Coreg) 25 mg TID PO Last administered on 09/01/18 12:24; Admin Dose 25 MG; Start 08/30/18 at 09:00 Vancomycin HCl 250 ml @ 125 mls/hr ONCE IVPB ; Start 09/01/18 at 18:00; Stop 09/01/18 at 18:01 Oxycodone HCl (Roxicodone) 5 mg Q4H PRN PO MODERATE PAIN LEVEL 4-6 Last administered on 09/01/18 10:09; Admin Dose 5 MG; Start 09/01/18 at 10:00 LATASHA DONALDSON Sep 01, 2018 15:51
[2018-09-01] MEDS ORDERED: VANCOMYCIN 1 GM 250 ML IVPB SCH (18:00)
[2018-09-01] MEDS: ATORVASTATIN 80 MG TAB PO SCH (20:45)
[2018-09-02] VITALS (36 sets, daily range): BP systolic 117–139; BP diastolic 76–100; PULSE 74–99; RESP 17–32
[2018-09-02] MEDS: IPRATROPIUM (HFA) 12.9 GM INHALER INH SCH ×4 (03:45→19:55)
[2018-09-02] MEDS: LANSOPRAZOLE 30 MG CAP GTB SCH (05:12)
[2018-09-02] MEDS: HEPARIN 5,000 UNIT/1 ML VIAL SC SCH ×3 (05:24→21:18)
[2018-09-02] MEDS: ALBUTEROL HFA 8 GM INHALER INH SCH ×3 (08:07→19:55)
--- NOTE | 2018-09-02 08:20 | PN ---
DATE: 09/02/2018 SUBJECTIVE: The patient is stable, no events overnight. No fevers, chills, nausea, or vomiting. OBJECTIVE: VITAL SIGNS: Blood pressure is 138/84, pulse 90, respirations 18, temperature 98.2. HEENT: Head is normocephalic. NECK: Supple. HEART: Regular rate. LUNGS: Show diminished breath sounds at the base. ABDOMEN: Soft, nontender to palpation without rebound or guarding. EXTREMITIES: Negative for clubbing, cyanosis. Trace edema. DERMATOLOGIC: No rashes. MUSCULOSKELETAL: No joint effusion. NEUROLOGIC: No change in exam. MEDICATIONS: Reviewed. LABORATORY DATA: Reviewed. ASSESSMENT AND PLAN: 1. Anuric acute kidney injury with previously normal baseline creatinine. Etiology is secondary to acute tubular necrosis. The patient remains dialysis dependent. Plan is for hemodialysis today. 2. Access. The patient is pending possible Perm-A-Cath placement early next week per Dr. Wilson. 3. Volume overload, improved. Continue ultrafiltration with dialysis. 4. Hyperkalemia. The patient will be dialyzed on a high potassium bath. 5. Anemia. Continue to monitor hemoglobin and hematocrit levels. Continue Epogen. 6. Mineral bone disorder, monitor calcium and phosphorus levels. 7. Ventilator-dependent respiratory failure. Vent settings and ABG was reviewed. Continue to monit or. 8. Coronary artery disease status post cardiac catheterization. Continue medical management. 9. Acute encephalopathy, improving. 10. Acute cerebrovascular accident. Continue medical management. 11. Dysphagia. Continue tube feeding. 12. Morbid obesity. 13. Status post septic shock. 14. Status post cardiac arrest. 15. Status post ST elevated myocardial infarction. Dictated By: BHUMI REDDY DO NR/NTS Conf#: [id number] DID#: [id number] CC: LAUREN GREWAL MD; HARPAL PEDROZA MD; DANIAL TUCKER MD;*EndCC*
[2018-09-02] MEDS ORDERED: POTASSIUM CHLORIDE 20 MEQ POWDER FOR ORAL SOLN GTB ONE (08:30)
[2018-09-02] MEDS: SEVELAMER CARBONATE 2.4 GM PKT GTB SCH ×3 (08:42→17:18)
[2018-09-02] MEDS: DOCUSATE SODIUM 10 MG/ML (10ML CUP) GTB SCH ×2 (08:42→21:03)
[2018-09-02] MEDS: ASPIRIN 81 MG TAB NGT SCH (08:43)
[2018-09-02] MEDS: ZINC SULFATE 220 MG CAP NGT SCH (08:43)
[2018-09-02] MEDS: CLOPIDOGREL 75 MG TAB NGT SCH (08:43)
[2018-09-02] MEDS: RIFAXIMIN 200 MG TAB PO SCH ×3 (09:00→21:03)
[2018-09-02] MEDS: LACTOBACILLUS RHAMNOSUS CAP GTB SCH ×3 (09:00→21:03)
[2018-09-02] MEDS ORDERED: ALTEPLASE (CATHFLO) 2 MG INJ CATHETER ONE (10:00)
--- NOTE | 2018-09-02 12:05 | CONS ---
Consult Date/Type/Reason Admit Date/Time Aug 04, 2018 at 23:10 Initial Consult Date 08/05/18 Type of Consult Pulmonary Requesting Provider: HARPAL AGGARWAL MD Date/Time of Note DATE: 09/02/18 TIME: 12:04 Subjective Patient comfortable this morning tolerating SIMV. Having hemodialysis. Objective Vital Signs Date Temp Pulse Resp B/P (MAP) Pulse Ox O2 O2 Flow FiO2 Time Delivery Rate 09/02/18 98.4 97 19 128/95 100 11:33 (106) 09/02/18 30 11:22 08/31/18 Trach 15:34 Collar Intake and Output 09/01/18 09/01/18 09/02/18 1515:00 23:00 07:00 IntakeIntake Total 50 ml 600 ml 560 ml OutputOutput Total 215 ml 20 ml BalanceBalance 50 ml 385 ml 540 ml Exam GENERAL: Pleasant young lady on mechanical ventilation via tracheostomy VITAL SIGNS: per chart NECK: Supple. No JVD or lymphadenopathy. CARDIAC EXAM: S1, S2. No added sounds or murmurs. CHEST: clear bilaterally, No added sounds, rales or wheezes ABDOMEN: Soft, nontender. No guarding or rebound. EXTREMITIES: No cyanosis, clubbing or edema. NEUROLOGIC: Generalized weakness. No focal deficits. Vent Setting Ventilator Support Mode: PS, SIMV Fraction of Inspired Oxygen pe: 30 Positive End Expiratory Pressu: 5.0 Results/Medications Result Diagram: 09/02/18 0509 09/02/18 0509 Results 24 hrs Laboratory Tests Test 09/02/18 05:09 White Blood Count 12.0 H Red Blood Count 2.77 L Hemoglobin 8.2 L Hematocrit 26.3 L Mean Corpuscular Volume 94.9 Mean Corpuscular Hemoglobin 29.6 Mean Corpuscular Hemoglobin Concent 31.2 L Red Cell Distribution Width 16.4 H Platelet Count 177 Mean Platelet Volume 14.1 H Immature Granulocytes % 4.700 H Neutrophils % 65.5 Lymphocytes % 16.9 Monocytes % 8.7 Eosinophils % 3.4 Basophils % 0.8 Nucleated Red Blood Cells % 0.0 Immature Granulocytes # 0.560 H Neutrophils # 7.9 H Lymphocytes # 2.0 Monocytes # 1.0 H Eosinophils # 0.4 Basophils # 0.1 Nucleated Red Blood Cells # 0.0 Sodium Level 137 Potassium Level 3.2 L Chloride Level 103 Carbon Dioxide Level 24 Anion Gap 10 Blood Urea Nitrogen 63 H Creatinine 3.53 H Est Glomerular Filtrat Rate mL/min 14 L Glucose Level 120 Calcium Level 9.3 Phosphorus Level 5.6 H Magnesium Level 2.4 Medications Current Medications Atorvastatin Calcium (Lipitor) 80 mg DAILY@21 PO Last administered on 09/01/18 20:45; Admin Dose 80 MG; Start 08/05/18 at 21:00 Miscellaneous Information 1 ea NOTE XX ; Start 08/05/18 at 09:00 Acetaminophen (Tylenol Liquid) 650 mg Q4H PRN PO ELEVATED TEMPERATURE Last administered on 09/01/18 00:29; Admin Dose 650 MG; Start 08/05/18 at 11:00; Status Hold Miscellaneous Information (* Miscellaneous Pharmacy Order) Treatment of Hypoglycemia: 1.BG 51... Per protocol XX ; Start 08/05/18 at 12:00 Dextrose (D50w Syringe) 25 ml Q15M PRN IV .DECREASED GLUCOSE; Start 08/05/18 at 12:00 Dextrose (D50w Syringe) 50 ml Q15M PRN IV .DECREASED GLUCOSE; Start 08/05/18 at 12:00 Aspirin (Aspirin) 81 mg DAILY NGT Last administered on 09/02/18 08:43; Admin Dose 81 MG; Start 08/06/18 at 09:00 Multivitamins (Multivitamin) 30 ml DAILY NGT Last administered on 09/01/18 08:44; Admin Dose 30 ML; Start 08/09/18 at 09:00 Zinc Sulfate (Zinc Sulfate) 220 mg DAILY NGT Last administered on 09/02/18 08:43; Admin Dose 220 MG; Start 08/09/18 at 09:00 Folic Acid (Folic Acid) 1 mg DAILY NGT Last administered on 09/01/18 08:44; Admin Dose 1 MG; Start 08/09/18 at 09:00 Ascorbic Acid (Vitamin C) 500 mg DAILY NGT Last administered on 09/01/18 08:44; Admin Dose 500 MG; Start 08/09/18 at 09:00 Albuterol (Ventolin Hfa) 4 puff Q6HWA RESP THERAPY INH Last administered on 09/02/18 08:07; Admin Dose 4 PUFF; Start 08/09/18 at 14:00 Ipratropium [place] (Atrovent Hfa) 4 puff Q6H RESP THERAPY INH Last administered on 09/02/18 08:07; Admin Dose 4 PUFF; Start 08/09/18 at 14:00 IV Flush (NS 10 ml) 10 ml PRN PRN IV IV PROTOCOL; Start 08/11/18 at 16:30 Heparin Sodium (Porcine) (Heparin (1000 Units/ml)) 3,000 unit PRN PRN CATHETER Dialysis Last administered on 08/31/18 12:16; Admin Dose 3,000 UNIT; Start 08/12/18 at 14:30 Labetalol HCl (Labetalol) 10 mg Q4H PRN IV ELEVATED SYSTOLIC BP > 180 Last administered on 08/20/18 16:54; Admin Dose 10 MG; Start 08/14/18 at 19:00 Hydralazine HCl (Apresoline) 20 mg Q2 PRN IV ELEVATED SYSTOLIC BP Last administered on 08/22/18 16:18; Admin Dose 20 MG; Start 08/16/18 at 08:00 Docusate Sodium (Colace Liquid Cup) 100 mg BID GTB Last administered on 09/02/18 08:42; Admin Dose 100 MG; Start 08/18/18 at 09:00 Clopidogrel Bisulfate (plaVIX) 75 mg DAILY NGT Last administered on 09/02/18 08:43; Admin Dose 75 MG; Start 08/18/18 at 13:30 Rifaximin (Xifaxan) 200 mg TID PO Last administered on 09/01/18 20:45; Admin Dose 200 MG; Start 08/19/18 at 13:00 Sevelamer Carbonate (Renvela) 2.4 gm WITH MEALS GTB Last administered on 09/02/18 08:42; Admin Dose 2.4 GM; Start 08/23/18 at 11:30 Ondansetron HCl (Zofran Inj) 4 mg Q4H PRN IV NAUSEA AND/OR VOMITING Last administered on 09/01/18 03:18; Admin Dose 4 MG; Start 08/23/18 at 14:30 Lactobacillus Acidophilus/ Rhamnosus (Culturelle) 1 cap TID GTB Last administered on 09/01/18 20:46; Admin Dose 1 CAP; Start 08/24/18 at 13:00 Albumin Human 100 ml @ 100 mls/hr WITH DIALYSIS PRN IV SBP <90 DURING DIALYSIS; Start 08/26/18 at 12:00 Sodium Chloride (NS) -To prime the dialy... DIRECTED FOR HD PRN IV HD; Start 08/26/18 at 12:00 Nitroglycerin (Nitroglycerin 2% Oint) 0.5 inch Q6 PRN TD CHEST PAIN; Start 08/27/18 at 00:30 Lorazepam (Ativan) 1 mg Q4H PRN IV ANXIETY Last administered on 08/27/18 04:14; Admin Dose 1 MG; Start 08/27/18 at 04:30 Sodium Chloride 500 ml @ 0 mls/hr Q0M IV Last administered on 08/27/18 06:51; Admin Dose 1,000 MLS/HR; Start 08/27/18 at 06:30 Vancomycin HCl (Vanco Iv Per Pharmacy) VANCOMYCIN PER PHARMACY PER PROTOCOL XX ; Start 08/27/18 at 10:00 Cefepime HCl 50 ml @ 100 mls/hr Q24H IVPB Last administered on 09/01/18 10:10; Admin Dose 100 MLS/HR; Start 08/27/18 at 10:30 Eye Lubricant (Artificial Tears Oph) 2 drop Q2H PRN BOTH EYES dry eyes; Start 08/28/18 at 01:30 Heparin Sodium (Porcine) (Heparin (5000 Units/1ml)) 5,000 unit Q8 SC Last administered on 09/02/18 05:24; Admin Dose 5,000 UNIT; Start 08/29/18 at 14:00 Epoetin Jarrell-epbx (RETACRIT(esrd)) 10,000 unit MoWeFr@1700 SC Last administered on 08/31/18 17:51; Admin Dose 10,000 UNIT; Start 08/29/18 at 17:00 Morphine Sulfate (morphine) 3 mg Q1H PRN GTB PAIN NOT RELIEVED BY OTHERS Last administered on 08/30/18 13:12; Admin Dose 3 MG; Start 08/29/18 at 12:00 Lansoprazole (Prevacid) 30 mg DAILY@06 GTB Last administered on 09/02/18 05:12; Admin Dose 30 MG; Start 08/30/18 at 06:00 Carvedilol (Coreg) 25 mg TID PO Last administered on 4/13/19at 20:46; Admin Dose 25 MG; Start 08/30/18 at 09:00 Oxycodone HCl (Roxicodone) 5 mg Q4H PRN PO MODERATE PAIN LEVEL 4-6 Last administered on 09/01/18at 10:09; Admin Dose 5 MG; Start 09/01/18 at 10:00 Assessment/Plan Hospital Course (Demo Recall) IMP: 1. Ventricular Fibrillation Arrest--s/p ROSC 2/2 STEMI s/p PCI status post hypothermia protocol. Multivessel coronary artery disease status post stent placement x3 2. STEMI, Status post stent x3 placement. 3. CVA multiple infarcts noted. 4. Hypoxemic respiratory failure no status post tracheostomy placement 5. HUSEYIN--likely ATN continues hemodialysis 6. Ischemic hepatopathy--2/2 arrest 7. Resolving encephalopathy RECS: 1. Continue mechanical ventilation, will continue SIMV weaning trial. 2. Trach site care. 3. Encourage out of bed. 4. PEG tube feeding 5. Continue Abx 6. Speech therapy evaluation consider de-escalation 7. Hemodialysis per nephrology 8. Physical therapy evaluation CHINO ANDERSON MD, [facility] Sep 02, 2018 12:05
--- NOTE | 2018-09-02 12:51 | CONS ---
Consultation Date/Type/Reason Admit Date/Time Aug 04, 2018 at 23:10 Initial Consult Date SUBJECTIVE: No acute events over night. No fevers. trach to vent. VS: stable. T: 98.4 LABS reviewed. WBC- 12.0 CXR: 08/31/18: IMPRESSION: 1. Tracheostomy tube in situ. Unchanged right-sided PICC line. 2. Cardiomegaly. 3. Bibasilar infiltrates, unchanged since prior exam. Antimicrobials: Vancomycin and cefepime Microbiology: Urine culture on admission grew E. coli and Proteus, blood cultures growing oxacillin sensitive staph aureus endotracheal aspirate also growing oxacillin sensitive staph aureus ear drainage preliminary growing staph aureus, repeat blood cultures 2 days ago negative Indwelling: Trach, PEG, right femoral Devan, right upper extremity PICC line Physical examination: GEN: Obese well-developed, middle-aged woman who trach to Vent. HENT: Head atraumatic normocephalic, neck is supple PULM: chest rise symmetrical, breath sounds diminished bases. Heart: S1-S2. Abdomen distended. Bowel sounds hypoactive. Extremities: cyanotic Assessment: 1. Sepsis, status post shock 2. Healthcare associated pneumonia 3. S/p Oxacillin sensitive staph aureus bacteremia 2 to #3 4. S/p polymicrobial UTI 5. ST elevation [place], status post stent 6. Status post V. fib arrest 7. Acute renal failure, started on hemodialysis 8. 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 Anemia and thrombocytopenia 10. Acute sinusitis and bilateral mastoiditis 11. Morbid obesity 12. Diarrhea, r/o C dif Plan: Pt is stable. Continue current broad-spectrum antibiotics for pneumonia. WBC is improving. No fevers. Continue vent management per pulmonary. HD per renal. Requesting Provider: HARPAL AGGARWAL MD Date/Time of Note DATE: 09/02/18 TIME: 12:50 Exam/Review of Systems Exam Vitals Vital Signs Date Temp Pulse Resp B/P (MAP) Pulse Ox O2 O2 Flow FiO2 Time Delivery Rate 09/02/18 98.4 97 19 128/95 100 11:33 (106) 09/02/18 30 11:22 08/31/18 Trach 15:34 Collar Intake and Output 09/01/18 09/01/18 09/02/18 1515:00 23:00 07:00 IntakeIntake Total 50 ml 600 ml 560 ml OutputOutput Total 215 ml 20 ml BalanceBalance 50 ml 385 ml 540 ml Results Result Diagram: 09/02/18 0509 09/02/18 0509 Results 24hrs Laboratory Tests Test 09/02/18 05:09 White Blood Count 12.0 H Red Blood Count 2.77 L Hemoglobin 8.2 L Hematocrit 26.3 L Mean Corpuscular Volume 94.9 Mean Corpuscular Hemoglobin 29.6 Mean Corpuscular Hemoglobin Concent 31.2 L Red Cell Distribution Width 16.4 H Platelet Count 177 Mean Platelet Volume 14.1 H Immature Granulocytes % 4.700 H Neutrophils % 65.5 Lymphocytes % 16.9 Monocytes % 8.7 Eosinophils % 3.4 Basophils % 0.8 Nucleated Red Blood Cells % 0.0 Immature Granulocytes # 0.560 H Neutrophils # 7.9 H Lymphocytes # 2.0 Monocytes # 1.0 H Eosinophils # 0.4 Basophils # 0.1 Nucleated Red Blood Cells # 0.0 Sodium Level 137 Potassium Level 3.2 L Chloride Level 103 Carbon Dioxide Level 24 Anion Gap 10 Blood Urea Nitrogen 63 H Creatinine 3.53 H Est Glomerular Filtrat Rate mL/min 14 L Glucose Level 120 Calcium Level 9.3 Phosphorus Level 5.6 H Magnesium Level 2.4 Medications Medication Current Medications Atorvastatin Calcium (Lipitor) 80 mg DAILY@21 PO Last administered on 09/01/18at 20:45; Admin Dose 80 MG; Start 08/05/18 at 21:00 Miscellaneous Information 1 ea NOTE XX ; Start 08/05/18 at 09:00 Acetaminophen (Tylenol Liquid) 650 mg Q4H PRN PO ELEVATED TEMPERATURE Last administered on 09/01/18at 00:29; Admin Dose 650 MG; Start 08/05/18 at 11:00; Status Hold Miscellaneous Information (* Miscellaneous Pharmacy Order) Treatment of Hypoglycemia: 1.BG 51... Per protocol XX ; Start 08/05/18 at 12:00 Dextrose (D50w Syringe) 25 ml Q15M PRN IV .DECREASED GLUCOSE; Start 08/05/18 at 12:00 Dextrose (D50w Syringe) 50 ml Q15M PRN IV .DECREASED GLUCOSE; Start 08/05/18 at 12:00 Aspirin (Aspirin) 81 mg DAILY NGT Last administered on 09/02/18at 08:43; Admin Dose 81 MG; Start 08/06/18 at 09:00 Multivitamins (Multivitamin) 30 ml DAILY NGT Last administered on 09/01/18 08:44; Admin Dose 30 ML; Start 08/09/18 at 09:00 Zinc Sulfate (Zinc Sulfate) 220 mg DAILY NGT Last administered on 09/02/18 08:43; Admin Dose 220 MG; Start 08/09/18 at 09:00 Folic Acid (Folic Acid) 1 mg DAILY NGT Last administered on 09/01/18 08:44; Admin Dose 1 MG; Start 08/09/18 at 09:00 Ascorbic Acid (Vitamin C) 500 mg DAILY NGT Last administered on 09/01/18 08:44; Admin Dose 500 MG; Start 08/09/18 at 09:00 Albuterol (Ventolin Hfa) 4 puff Q6HWA RESP THERAPY INH Last administered on 09/02/18 08:07; Admin Dose 4 PUFF; Start 08/09/18 at 14:00 Ipratropium [place] (Atrovent Hfa) 4 puff Q6H RESP THERAPY INH Last administered on 09/02/18 08:07; Admin Dose 4 PUFF; Start 08/09/18 at 14:00 IV Flush (NS 10 ml) 10 ml PRN PRN IV IV PROTOCOL; Start 08/11/18 at 16:30 Heparin Sodium (Porcine) (Heparin (1000 Units/ml)) 3,000 unit PRN PRN CATHETER Dialysis Last administered on 08/31/18 12:16; Admin Dose 3,000 UNIT; Start 08/12/18 at 14:30 Labetalol HCl (Labetalol) 10 mg Q4H PRN IV ELEVATED SYSTOLIC BP > 180 Last administered on 08/20/18 16:54; Admin Dose 10 MG; Start 08/14/18 at 19:00 Hydralazine HCl (Apresoline) 20 mg Q2 PRN IV ELEVATED SYSTOLIC BP Last administered on 08/22/18 16:18; Admin Dose 20 MG; Start 08/16/18 at 08:00 Docusate Sodium (Colace Liquid Cup) 100 mg BID GTB Last administered on 09/02/18 08:42; Admin Dose 100 MG; Start 08/18/18 at 09:00 Clopidogrel Bisulfate (plaVIX) 75 mg DAILY NGT Last administered on 09/02/18 08:43; Admin Dose 75 MG; Start 08/18/18 at 13:30 Rifaximin (Xifaxan) 200 mg TID PO Last administered on 09/01/18 20:45; Admin Dose 200 MG; Start 08/19/18 at 13:00 Sevelamer Carbonate (Renvela) 2.4 gm WITH MEALS GTB Last administered on 09/02/18 08:42; Admin Dose 2.4 GM; Start 08/23/18 at 11:30 Ondansetron HCl (Zofran Inj) 4 mg Q4H PRN IV NAUSEA AND/OR VOMITING Last administered on 09/01/18 03:18; Admin Dose 4 MG; Start 08/23/18 at 14:30 Lactobacillus Acidophilus/ Rhamnosus (Culturelle) 1 cap TID GTB Last administered on 09/01/18 20:46; Admin Dose 1 CAP; Start 08/24/18 at 13:00 Albumin Human 100 ml @ 100 mls/hr WITH DIALYSIS PRN IV SBP <90 DURING DIALYSIS; Start 08/26/18 at 12:00 Sodium Chloride (NS) -To prime the dialy... DIRECTED FOR HD PRN IV HD; Start 08/26/18 at 12:00 Nitroglycerin (Nitroglycerin 2% Oint) 0.5 inch Q6 PRN TD CHEST PAIN; Start 08/27/18 at 00:30 Lorazepam (Ativan) 1 mg Q4H PRN IV ANXIETY Last administered on 08/27/18 04:14; Admin Dose 1 MG; Start 08/27/18 at 04:30 Sodium Chloride 500 ml @ 0 mls/hr Q0M IV Last administered on 08/27/18 06:51; Admin Dose 1,000 MLS/HR; Start 08/27/18 at 06:30 Vancomycin HCl (Vanco Iv Per Pharmacy) VANCOMYCIN PER PHARMACY PER PROTOCOL XX ; Start 08/27/18 at 10:00 Cefepime HCl 50 ml @ 100 mls/hr Q24H IVPB Last administered on 09/01/18at 10:10; Admin Dose 100 MLS/HR; Start 08/27/18 at 10:30 Eye Lubricant (Artificial Tears Oph) 2 drop Q2H PRN BOTH EYES dry eyes; Start 08/28/18 at 01:30 Heparin Sodium (Porcine) (Heparin (5000 Units/1ml)) 5,000 unit Q8 SC Last administered on 09/02/18 05:24; Admin Dose 5,000 UNIT; Start 08/29/18 at 14:00 Epoetin Jarrell-epbx (RETACRIT(esrd)) 10,000 unit MoWeFr@1700 SC Last administered on 08/31/18at 17:51; Admin Dose 10,000 UNIT; Start 08/29/18 at 17:00 Morphine Sulfate (morphine) 3 mg Q1H PRN GTB PAIN NOT RELIEVED BY OTHERS Last administered on 08/30/18 13:12; Admin Dose 3 MG; Start 08/29/18 at 12:00 Lansoprazole (Prevacid) 30 mg DAILY@06 GTB Last administered on 09/02/18 05:12 ; Admin Dose 30 MG; Start 08/30/18 at 06:00 Carvedilol (Coreg) 25 mg TID PO Last administered on 09/01/18at 20:46; Admin Dose 25 MG; Start 08/30/18 at 09:00 Oxycodone HCl (Roxicodone) 5 mg Q4H PRN PO MODERATE PAIN LEVEL 4-6 Last administered on 09/01/18 10:09; Admin Dose 5 MG; Start 09/01/18 at 10:00 LATASHA DONALDSON Sep 02, 2018 12:51
[2018-09-02] MEDS: ASCORBIC ACID 500 MG TAB NGT SCH (12:57)
[2018-09-02] MEDS: ONDANSETRON 4 MG INJ IV PRN (12:57)
[2018-09-02] MEDS: MULTIVITAMINS 30 ML CUP NGT SCH (12:59)
[2018-09-02] MEDS: CEFEPIME 1GM/50 ML (PMX) 50 ML IVPB SCH (13:01)
[2018-09-02] MEDS: oxyCODONE 5 MG TAB PO PRN (13:01)
[2018-09-02] MEDS: FOLIC ACID 1 MG TAB NGT SCH (13:01)
--- NOTE | 2018-09-02 14:41 | PN ---
Date/Time of Note Date/Time of Note DATE: 09/02/18 TIME: 14:40 Objective Vitals Vital Signs Date Temp Pulse Resp B/P (MAP) Pulse Ox O2 O2 Flow FiO2 Time Delivery Rate 09/02/18 89 27 97 30 13:24 09/02/18 130/87 Mechanical 12:00 (101) Ventilator 09/02/18 98.4 11:33 Intake and Output 09/01/18 09/01/18 09/02/18 1515:00 23:00 07:00 IntakeIntake Total 50 ml 600 ml 560 ml OutputOutput Total 215 ml 20 ml BalanceBalance 50 ml 385 ml 540 ml Results Result Diagram: 09/02/18 0509 09/02/18 0509 Medications Medications Current Medications Atorvastatin Calcium (Lipitor) 80 mg DAILY@21 PO Last administered on 09/01/18at 20:45; Admin Dose 80 MG; Start 08/05/18 at 21:00 Miscellaneous Information 1 ea NOTE XX ; Start 08/05/18 at 09:00 Acetaminophen (Tylenol Liquid) 650 mg Q4H PRN PO ELEVATED TEMPERATURE Last administered on 09/01/18at 00:29; Admin Dose 650 MG; Start 08/05/18 at 11:00; Status Hold Miscellaneous Information (* Miscellaneous Pharmacy Order) Treatment of Hypoglycemia: 1.BG 51... Per protocol XX ; Start 08/05/18 at 12:00 Dextrose (D50w Syringe) 25 ml Q15M PRN IV .DECREASED GLUCOSE; Start 08/05/18 at 12:00 Dextrose (D50w Syringe) 50 ml Q15M PRN IV .DECREASED GLUCOSE; Start 08/05/18 at 12:00 Aspirin (Aspirin) 81 mg DAILY NGT Last administered on 09/02/18 08:43; Admin Dose 81 MG; Start 08/06/18 at 09:00 Multivitamins (Multivitamin) 30 ml DAILY NGT Last administered on 09/02/18at 12:59; Admin Dose 30 ML; Start 08/09/18 at 09:00 Zinc Sulfate (Zinc Sulfate) 220 mg DAILY NGT Last administered on 09/02/18 08:43; Admin Dose 220 MG; Start 08/09/18 at 09:00 Folic Acid (Folic Acid) 1 mg DAILY NGT Last administered on 09/02/18at 13:01; Admin Dose 1 MG; Start 08/09/18 at 09:00 Ascorbic Acid (Vitamin C) 500 mg DAILY NGT Last administered on 09/02/18 12:57; Admin Dose 500 MG; Start 08/09/18 at 09:00 Albuterol (Ventolin Hfa) 4 puff Q6HWA RESP THERAPY INH Last administered on 09/02/18 13:27; Admin Dose 4 PUFF; Start 08/09/18 at 14:00 Ipratropium [place] (Atrovent Hfa) 4 puff Q6H RESP THERAPY INH Last administered on 09/02/18 13:27; Admin Dose 4 PUFF; Start 08/09/18 at 14:00 IV Flush (NS 10 ml) 10 ml PRN PRN IV IV PROTOCOL; Start 08/11/18 at 16:30 Heparin Sodium (Porcine) (Heparin (1000 Units/ml)) 3,000 unit PRN PRN CATHETER Dialysis Last administered on 08/31/18 12:16; Admin Dose 3,000 UNIT; Start 08/12/18 at 14:30 Labetalol HCl (Labetalol) 10 mg Q4H PRN IV ELEVATED SYSTOLIC BP > 180 Last administered on 08/20/18 16:54; Admin Dose 10 MG; Start 08/14/18 at 19:00 Hydralazine HCl (Apresoline) 20 mg Q2 PRN IV ELEVATED SYSTOLIC BP Last administered on 08/22/18 16:18; Admin Dose 20 MG; Start 08/16/18 at 08:00 Docusate Sodium (Colace Liquid Cup) 100 mg BID GTB Last administered on 09/02/18 08:42; Admin Dose 100 MG; Start 08/18/18 at 09:00 Clopidogrel Bisulfate (plaVIX) 75 mg DAILY NGT Last administered on 09/02/18 08:43; Admin Dose 75 MG; Start 08/18/18 at 13:30 Rifaximin (Xifaxan) 200 mg TID PO Last administered on 09/02/18 13:10; Admin Dose 200 MG; Start 08/19/18 at 13:00 Sevelamer Carbonate (Renvela) 2.4 gm WITH MEALS GTB Last administered on 09/02/18 13:01; Admin Dose 2.4 GM; Start 08/23/18 at 11:30 Ondansetron HCl (Zofran Inj) 4 mg Q4H PRN IV NAUSEA AND/OR VOMITING Last administered on 09/02/18at 12:57; Admin Dose 4 MG; Start 08/23/18 at 14:30 Lactobacillus Acidophilus/ Rhamnosus (Culturelle) 1 cap TID GTB Last administered on 09/02/18at 13:10; Admin Dose 1 CAP; Start 08/24/18 at 13:00 Albumin Human 100 ml @ 100 mls/hr WITH DIALYSIS PRN IV SBP <90 DURING DIALYSIS; Start 08/26/18 at 12:00 Sodium Chloride (NS) -To prime the dialy... DIRECTED FOR HD PRN IV HD; Start 08/26/18 at 12:00 Nitroglycerin (Nitroglycerin 2% Oint) 0.5 inch Q6 PRN TD CHEST PAIN; Start 08/27/18 at 00:30 Lorazepam (Ativan) 1 mg Q4H PRN IV ANXIETY Last administered on 08/27/18at 04:14; Admin Dose 1 MG; Start 08/27/18 at 04:30 Sodium Chloride 500 ml @ 0 mls/hr Q0M IV Last administered on 08/27/18 06:51; Admin Dose 1,000 MLS/HR; Start 08/27/18 at 06:30 Vancomycin HCl (Vanco Iv Per Pharmacy) VANCOMYCIN PER PHARMACY PER PROTOCOL XX ; Start 08/27/18 at 10:00 Cefepime HCl 50 ml @ 100 mls/hr Q24H IVPB Last administered on 09/02/18at 13:01; Admin Dose 100 MLS/HR; Start 08/27/18 at 10:30 Eye Lubricant (Artificial Tears Oph) 2 drop Q2H PRN BOTH EYES dry eyes; Start 08/28/18 at 01:30 Heparin Sodium (Porcine) (Heparin (5000 Units/1ml)) 5,000 unit Q8 SC Last administered on 09/02/18at 05:24; Admin Dose 5,000 UNIT; Start 08/29/18 at 14:00 Epoetin Jarrell-epbx (RETACRIT(esrd)) 10,000 unit MoWeFr@1700 SC Last administered on 08/31/18 17:51; Admin Dose 10,000 UNIT; Start 08/29/18 at 17:00 Morphine Sulfate (morphine) 3 mg Q1H PRN GTB PAIN NOT RELIEVED BY OTHERS Last administered on 08/30/18at 13:12; Admin Dose 3 MG; Start 08/29/18 at 12:00 Lansoprazole (Prevacid) 30 mg DAILY@06 GTB Last administered on 09/02/18at 05:12; Admin Dose 30 MG; Start 08/30/18 at 06:00 Carvedilol (Coreg) 25 mg TID PO Last administered on 09/01/18at 20:46; Admin Dose 25 MG; Start 08/30/18 at 09:00 Oxycodone HCl (Roxicodone) 5 mg Q4H PRN PO MODERATE PAIN LEVEL 4-6 Last admi nistered on 09/02/18at 13:01; Admin Dose 5 MG; Start 09/01/18 at 10:00 VTE Prophylaxis Risk score (from Ns)>0 risk: 14 [place] applied [place] [facility] [place] Lines/Catheters IV Catheter Type: Aguilar in Place: No Assessment/Plan Hospital Course Subjective Patient doing well, moves to command, able to communicate Objective Physical exam General: Patient is laying in bed with tracheostomy Mentation: Patient is alert and oriented Head: Normocephalic atraumatic Eyes: EOMI, pupils reactive to light Neck: Supple, nontender, midline Respiratory: Coarse to auscultation bilaterally Cardiovascular: regular rate, no obvious murmurs Gastrointestinal: non-tender to palpation, bowel sounds heard. Neurological: Able to follow commands and move all extremities, although limited Skin: No new skin lesions Assessment/Plan 1. Acute hypoxic respiratory failure - Per Pulm, trach may be sitting on trach wall, doing much better now that patient's neck was repositioned - Patients mentation improved significantly after trach was adjusted, cardiothoracic surgeon was notified to possibly adjust trach, saw patient and stated no intervention needed. -Has PEG and trach 2. Acute toxic/metabolic encephalopathy-decompensated from hypercapnia, resolved -After decompensating hypoxic event earlier in the week, patient back to her previous baseline a few days ago of able to follow command and interact. - Neurology input appreciated and will reconsult if needed 3. Bilateral CVA - Found on MRI, likely thromboembolic secondary to cardiopulmonary arrest per neurology - Continue on aspirin/plavix and Lipitor 4. Anemia, blood loss and renal disease- stable - Hgb remains stable, transfuse as needed - PPI daily 5. Bilateral Pneumonia -Infectious disease on board, antibiotics per infectious disease 6. Septic shock secondary to PNA and bacteremia- resolved - Blood cultures and sputum culture results noted. - ID on board Hypotension, resolved -May be due secondary to respiratory events overnight -Pressors as needed Rhabdomyolysis -Nephrology on board, dialysis as needed, unsure if rhabdomyolysis is acute. Right leg pain, minimal -Ultrasound venous negative -Likely secondary to debility, pain medication as needed -If pain continues to get worse, will perform CT scan 7. CAD s/p PCI x2 - Cardiology on board and appreciate recommendations. Stressed importance of continuing DAPT given recent stent placements and high risk of restenosis - s/p emergent Cath 08/05 with successful PTCA and stenting of proximal and mid LAD, PTCA of the large first diagonal and thrombectomy of the LAD - Repeat PCI on 08/07 performed with stenting to LCx - plans for stenting of RCA prior to discharge if possible 8. Renal failure on HD - Nephrology on board and appreciate recommendations. Continue HD - secondary to septic shock, ATN vs prerenal vs contrast induced nephropathy - will avoid nephrotoxic agents 9. Diabetes - A1c noted - ISS not needed 10. S/p V-fib cardiac arrest secondary to STEMI - Completed hypothermia protocol 11. Disposition -Patient stable, cardiology plans for possible repeat cardiac cath sometime early next week. HARPAL PEDROZA Sep 02, 2018 14:41
[2018-09-02] MEDS: ATORVASTATIN 80 MG TAB PO SCH (21:03)
[2018-09-03] VITALS (24 sets, daily range): BP systolic 119–142; BP diastolic 69–87; PULSE 76–97; RESP 16–26
[2018-09-03] MEDS: IPRATROPIUM (HFA) 12.9 GM INHALER INH SCH ×4 (01:03→20:07)
[2018-09-03] MEDS: LANSOPRAZOLE 30 MG CAP GTB SCH (05:39)
[2018-09-03] MEDS: HEPARIN 5,000 UNIT/1 ML VIAL SC SCH ×3 (05:56→23:09)
[2018-09-03] MEDS: ALBUTEROL HFA 8 GM INHALER INH SCH ×3 (08:46→20:08)
--- NOTE | 2018-09-03 08:50 | PN ---
DATE: 09/03/2018 SUBJECTIVE: The patient is stable, no events overnight. No fevers, chills, nausea, or vomiting. OBJECTIVE: VITAL SIGNS: Blood pressure is 142/84, pulse 97, respirations 16, temperature 98.4. HEENT: Head is normocephalic. NECK: Supple. HEART: Regular rate. LUNGS: Show diminished breath sounds at the base. ABDOMEN: Soft, nontender to palpation without rebound or guarding. EXTREMITIES: Negative for clubbing, cyanosis, no edema. DERMATOLOGIC: No rashes. MUSCULOSKELETAL: No joint effusion. NEUROLOGIC: No change in exam. MEDICATIONS: Reviewed. LABORATORY DATA: Reviewed. ASSESSMENT AND PLAN: 1. Anuric acute kidney injury with previously normal baseline creatinine. Etiology is secondary to acute tubular necrosis. The patient is currently dialysis dependent. Plan is for hemodialysis tomor row. Monitor for signs of renal recovery. 2. Access. The patient is pending possible Perm-A-Cath placement with Dr. Wilson. 3. Volume overload, improved. Continue ultrafiltration with dialysis. 4. Hypokalemia. Continue dialysis on a low potassium bath. 5. Anemia. Continue to monitor hemoglobin and hematocrit levels. Continue Epogen. 6. Mineral bone disorder, monitor calcium and phosphorus levels. 7. Ventilator-dependent respiratory failure. Vent settings and ABG was reviewed. Continue to monit or. 8. Coronary artery disease status post PCI. 9. Acute encephalopathy. 10. Acute cerebrovascular accident. Continue medical management. 11. Dysphagia. Continue tube feeding. 12. Morbid obesity. 13. Status post septic shock. 14. Status post cardiac arrest. Dictated By: BHUMI REDDY DO NR/NTS Conf#: [id number] DID#: [id number] CC: HARPAL PEDROZA MD; LAUREN GREWAL MD; DANIAL TUCKER MD;*EndCC*
[2018-09-03] MEDS: DOCUSATE SODIUM 10 MG/ML (10ML CUP) GTB SCH ×2 (09:00→20:47)
[2018-09-03] MEDS: SEVELAMER CARBONATE 2.4 GM PKT GTB SCH ×3 (09:05→17:18)
[2018-09-03] MEDS: CLOPIDOGREL 75 MG TAB NGT SCH (09:06)
[2018-09-03] MEDS: MULTIVITAMINS 30 ML CUP NGT SCH (09:06)
[2018-09-03] MEDS: LACTOBACILLUS RHAMNOSUS CAP GTB SCH ×3 (09:06→20:47)
[2018-09-03] MEDS: ASCORBIC ACID 500 MG TAB NGT SCH (09:06)
[2018-09-03] MEDS: RIFAXIMIN 200 MG TAB PO SCH ×3 (09:06→20:47)
[2018-09-03] MEDS: ASPIRIN 81 MG TAB NGT SCH (09:06)
[2018-09-03] MEDS: FOLIC ACID 1 MG TAB NGT SCH (09:06)
[2018-09-03] MEDS: ZINC SULFATE 220 MG CAP NGT SCH (09:06)
--- NOTE | 2018-09-03 09:35 | CONS ---
Assessment/Plan Assessment/Plan Assessment/Plan (Daily) Ventilator settings; SIMV of 4, pressure support of 10, tidal volume 500, PEEP of 5, 30% FiO2. Assessment and recommendations; 1 patient admitted for V. fib with cardiac arrest status post coronary intervention for STEMI. 2. Status post tracheostomy because of failure to be weaned from ventilator despite multiple times. 3. Recurrent pneumonia. 4. Chronic renal failure, on hemodialysis. 5. Chronic anemia. 6. CVA without any obvious neurological deficit. Continue current supportive care. Consider transfer to rehab center. Continue to wean from ventilator as tolerated. Prognosis is fair. Consultation Date/Type/Reason Admit Date/Time Aug 04, 2018 at 23:10 Initial Consult Date 08/17/18 Type of Consult Pulmonary/critical care Requesting Provider: HARPAL AGGARWAL MD Date/Time of Note DATE: 09/03/18 TIME: 09:33 24 HR Interval Summary Free Text/Dictation Patient's condition is stable. Remains awake and alert. Has remained hemodyna mically stable. General exam; young female, on ventilator via tracheostomy, awake and alert. Currently in no distress. Exam/Review of Systems Exam Vitals Vital Signs Date Temp Pulse Resp B/P (MAP) Pulse Ox O2 O2 Flow FiO2 Time Delivery Rate 09/03/18 96 08:01 09/03/18 98.5 16 142/84 100 07:50 (103) 09/03/18 30 05:05 09/02/18 Mechanical 12:00 Ventilator Intake and Output 09/02/18 09/02/18 09/03/18 1515:00 23:00 07:00 IntakeIntake Total 560 ml 560 ml OutputOutput Total 2500 ml 215 ml 90 ml BalanceBalance -2500 ml 345 ml 470 ml Exam H EENT exam; supple neck, no JVD. No lymphadenopathy. Midline trachea. No thyromegaly. Tracheostomy in place. Insertion site is clean. Patient has fair dentition. Chest exam; clear to auscultation. S1-S2 audible, no murmurs. Regular rhythm. Abdomen exam; soft, nontender. No organomegaly. G-tube in place. Bowel sounds audible. Extremity exam; no peripheral edema clubbing. [employer] exam; no focal deficit. Results Result Diagram: 09/03/1852409/03/18524 Results 24hrs Laboratory Tests Test 4/15/19 05:25 White Blood Count 12.2 H Red Blood Count 2.86 L Hemoglobin 8.4 L Hematocrit 27.5 L Mean Corpuscular Volume 96.2 Mean Corpuscular Hemoglobin 29.4 Mean Corpuscular Hemoglobin Concent 30.5 L Red Cell Distribution Width 16.9 H Platelet Count 199 Mean Platelet Volume 13.7 H Immature Granulocytes % 4.800 H Neutrophils % 66.6 Lymphocytes % 16.5 Monocytes % 8.4 Eosinophils % 2.8 Basophils % 0.9 Nucleated Red Blood Cells % 0.0 Immature Granulocytes # 0.590 H Neutrophils # 8.1 H Lymphocytes # 2.0 Monocytes # 1.0 H Eosinophils # 0.3 Basophils # 0.1 Nucleated Red Blood Cells # 0.0 Sodium Level 136 Potassium Level 3.9 Chloride Level 100 Carbon Dioxide Level 27 Anion Gap 9 Blood Urea Nitrogen 45 #H Creatinine 2.87 H Est Glomerular Filtrat Rate mL/min 18 L Glucose Level 119 Calcium Level 9.2 Phosphorus Level 4.5 Magnesium Level 2.3 Total Bilirubin 0.2 Direct Bilirubin 0.00 Indirect Bilirubin 0.2 Aspartate Amino Transf (AST/SGOT) 78 H Alanine Aminotransferase (ALT/SGPT) 101 H Alkaline Phosphatase 563 H Total Protein 6.5 Albumin 2.8 L Medications Medication Current Medications Atorvastatin Calcium (Lipitor) 80 mg DAILY@21 PO Last administered on 09/02/18at 21:03; Admin Dose 80 MG; Start 08/05/18 at 21:00 Miscellaneous Information 1 ea NOTE XX ; Start 08/05/18 at 09:00 Acetaminophen (Tylenol Liquid) 650 mg Q4H PRN PO ELEVATED TEMPERATURE Last administered on 09/01/18at 00:29; Admin Dose 650 MG; Start 08/05/18 at 11:00; Status Hold Miscellaneous Information (* Miscellaneous Pharmacy Order) Treatment of Hypoglycemia: 1.BG 51... Per protocol XX ; Start 08/05/18 at 12:00 Dextrose (D50w Syringe) 25 ml Q15M PRN IV .DECREASED GLUCOSE; Start 08/05/18 at 12:00 Dextrose (D50w Syringe) 50 ml Q15M PRN IV .DECREASED GLUCOSE; Start 08/05/18 at 12:00 Aspirin (Aspirin) 81 mg DAILY NGT Last administered on 09/03/18at 09:06; Admin Dose 81 MG; Start 08/06/18 at 09:00 Multivitamins (Multivitamin) 30 ml DAILY NGT Last administered on 09/03/18 09:06; Admin Dose 30 ML; Start 08/09/18 at 09:00 Zinc Sulfate (Zinc Sulfate) 220 mg DAILY NGT Last administered on 09/03/18 09:06; Admin Dose 220 MG; Start 08/09/18 at 09:00 Folic Acid (Folic Acid) 1 mg DAILY NGT Last administered on 09/03/18 09:06; Admin Dose 1 MG; Start 08/09/18 at 09:00 Ascorbic Acid (Vitamin C) 500 mg DAILY NGT Last administered on 09/03/18 09:06; Admin Dose 500 MG; Start 08/09/18 at 09:00 Albuterol (Ventolin Hfa) 4 puff Q6HWA RESP THERAPY INH Last administered on 09/03/18 08:46; Admin Dose 4 PUFF; Start 08/09/18 at 14:00 Ipratropium [place] (Atrovent Hfa) 4 puff Q6H RESP THERAPY INH Last administered on 09/03/18 08:46; Admin Dose 4 PUFF; Start 08/09/18 at 14:00 IV Flush (NS 10 ml) 10 ml PRN PRN IV IV PROTOCOL; Start 08/11/18 at 16:30 Heparin Sodium (Porcine) (Heparin (1000 Units/ml)) 3,000 unit PRN PRN CATHETER Dialysis Last administered on 08/31/18 12:16; Admin Dose 3,000 UNIT; Start 08/12/18 at 14:30 Labetalol HCl (Labetalol) 10 mg Q4H PRN IV ELEVATED SYSTOLIC BP > 180 Last administered on 08/20/18 16:54; Admin Dose 10 MG; Start 08/14/18 at 19:00 Hydralazine HCl (Apresoline) 20 mg Q2 PRN IV ELEVATED SYSTOLIC BP Last admin istered on 08/22/18 16:18; Admin Dose 20 MG; Start 08/16/18 at 08:00 Docusate Sodium (Colace Liquid Cup) 100 mg BID GTB Last administered on 09/02/18 21:03; Admin Dose 100 MG; Start 08/18/18 at 09:00 Clopidogrel Bisulfate (plaVIX) 75 mg DAILY NGT Last administered on 09/03/18 09:06; Admin Dose 75 MG; Start 08/18/18 at 13:30 Rifaximin (Xifaxan) 200 mg TID PO Last administered on 09/03/18 09:06; Admin Dose 200 MG; Start 08/19/18 at 13:00 Sevelamer Carbonate (Renvela) 2.4 gm WITH MEALS GTB Last administered on 09/03/18 09:05; Admin Dose 2.4 GM; Start 08/23/18 at 11:30 Ondansetron HCl (Zofran Inj) 4 mg Q4H PRN IV NAUSEA AND/OR VOMITING Last administered on 09/02/18 12:57; Admin Dose 4 MG; Start 08/23/18 at 14:30 Lactobacillus Acidophilus/ Rhamnosus (Culturelle) 1 cap TID GTB Last adm inistered on 09/03/18 09:06; Admin Dose 1 CAP; Start 08/24/18 at 13:00 Albumin Human 100 ml @ 100 mls/hr WITH DIALYSIS PRN IV SBP <90 DURING DIALYSIS; Start 08/26/18 at 12:00 Sodium Chloride (NS) -To prime the dialy... DIRECTED FOR HD PRN IV HD; Start 08/26/18 at 12:00 Nitroglycerin (Nitroglycerin 2% Oint) 0.5 inch Q6 PRN TD CHEST PAIN; Start 08/27/18 at 00:30 Lorazepam (Ativan) 1 mg Q4H PRN IV ANXIETY Last administered on 08/27/18at 04:14; Admin Dose 1 MG; Start 08/27/18 at 04:30 Sodium Chloride 500 ml @ 0 mls/hr Q0M IV Last administered on 08/27/18 06:51; Admin Dose 1,000 MLS/HR; Start 08/27/18 at 06:30 Vancomycin HCl (Vanco Iv Per Pharmacy) VANCOMYCIN PER PHARMACY PER PROTOCOL XX ; Start 08/27/18 at 10:00 Cefepime HCl 50 ml @ 100 mls/hr Q24H IVPB Last administered on 09/02/18 13:01; Admin Dose 100 MLS/HR; Start 08/27/18 at 10:30 Eye Lubricant (Artificial Tears Oph) 2 drop Q2H PRN BOTH EYES dry eyes; Start 08/28/18 at 01:30 Heparin Sodium (Porcine) (Heparin (5000 Units/1ml)) 5,000 unit Q8 SC Last administered on 09/03/18 05:56; Admin Dose 5,000 UNIT; Start 08/29/18 at 14:00 Epoetin Jarrell-epbx (RETACRIT(esrd)) 10,000 unit MoWeFr@1700 SC Last administered on 08/31/18at 17:51; Admin Dose 10,000 UNIT; Start 08/29/18 at 17:00 Morphine Sulfate (morphine) 3 mg Q1H PRN GTB PAIN NOT RELIEVED BY OTHERS Last administered on 08/30/18 13:12; Admin Dose 3 MG; Start 08/29/18 at 12:00 Lansoprazole (Prevacid) 30 mg DAILY@06 GTB Last administered on 09/03/18 05:39; Admin Dose 30 MG; Start 08/30/18 at 06:00 Carvedilol (Coreg) 25 mg TID PO Last administered on 09/03/18 09:06; Admin Dose 25 MG; Start 08/30/18 at 09:00 Oxycodone HCl (Roxicodone) 5 mg Q4H PRN PO MODERATE PAIN LEVEL 4-6 Last administered on 09/02/18 13:01; Admin Dose 5 MG; Start 09/01/18 at 10:00 MARIAA KINSEY Sep 03, 2018 09:35
[2018-09-03] MEDS: CEFEPIME 1GM/50 ML (PMX) 50 ML IVPB SCH (10:39)
--- NOTE | 2018-09-03 11:38 | PN ---
Date/Time of Note Date/Time of Note DATE: 09/03/18 TIME: 11:36 Objective Vitals Vital Signs Date Temp Pulse Resp B/P (MAP) Pulse Ox O2 O2 Flow FiO2 Time Delivery Rate 09/03/18 98.6 93 16 131/84 97 11:21 (100) 09/03/18 30 10:21 09/02/18 Mechanical 12:00 Ventilator Intake and Output 09/02/18 09/02/18 09/03/18 1515:00 23:00 07:00 IntakeIntake Total 560 ml 560 ml OutputOutput Total 2500 ml 215 ml 90 ml BalanceBalance -2500 ml 345 ml 470 ml Results Result Diagram: 09/03/1852409/03/18524 Medications Medications Current Medications Atorvastatin Calcium (Lipitor) 80 mg DAILY@21 PO Last administered on 09/02/18at 21:03; Admin Dose 80 MG; Start 08/05/18 at 21:00 Miscellaneous Information 1 ea NOTE XX ; Start 08/05/18 at 09:00 Acetaminophen (Tylenol Liquid) 650 mg Q4H PRN PO ELEVATED TEMPERATURE Last administered on 09/01/18at 00:29; Admin Dose 650 MG; Start 08/05/18 at 11:00; Status Hold Miscellaneous Information (* Miscellaneous Pharmacy Order) Treatment of Hypoglycemia: 1.BG 51... Per protocol XX ; Start 08/05/18 at 12:00 Dextrose (D50w Syringe) 25 ml Q15M PRN IV .DECREASED GLUCOSE; Start 08/05/18 at 12:00 Dextrose (D50w Syringe) 50 ml Q15M PRN IV .DECREASED GLUCOSE; Start 08/05/18 at 12:00 Aspirin (Aspirin) 81 mg DAILY NGT Last administered on 09/03/18at 09:06; Admin Dose 81 MG; Start 08/06/18 at 09:00 Multivitamins (Multivitamin) 30 ml DAILY NGT Last administered on 09/03/18 09:06; Admin Dose 30 ML; Start 08/09/18 at 09:00 Zinc Sulfate (Zinc Sulfate) 220 mg DAILY NGT Last administered on 09/03/18 09:06; Admin Dose 220 MG; Start 08/09/18 at 09:00 Folic Acid (Folic Acid) 1 mg DAILY NGT Last administered on 09/03/18at 09:06; Admin Dose 1 MG; Start 08/09/18 at 09:00 Ascorbic Acid (Vitamin C) 500 mg DAILY NGT Last administered on 09/03/18 09:06; Admin Dose 500 MG; Start 08/09/18 at 09:00 Albuterol (Ventolin Hfa) 4 puff Q6HWA RESP THERAPY INH Last administered on 09/03/18 08:46; Admin Dose 4 PUFF; Start 08/09/18 at 14:00 Ipratropium [place] (Atrovent Hfa) 4 puff Q6H RESP THERAPY INH Last administered on 09/03/18 08:46; Admin Dose 4 PUFF; Start 08/09/18 at 14:00 IV Flush (NS 10 ml) 10 ml PRN PRN IV IV PROTOCOL; Start 08/11/18 at 16:30 Heparin Sodium (Porcine) (Heparin (1000 Units/ml)) 3,000 unit PRN PRN CATHETER Dialysis Last administered on 08/31/18 12:16; Admin Dose 3,000 UNIT; Start 08/12/18 at 14:30 Labetalol HCl (Labetalol) 10 mg Q4H PRN IV ELEVATED SYSTOLIC BP > 180 Last administered on 08/20/18 16:54; Admin Dose 10 MG; Start 08/14/18 at 19:00 Hydralazine HCl (Apresoline) 20 mg Q2 PRN IV ELEVATED SYSTOLIC BP Last administered on 08/22/18 16:18; Admin Dose 20 MG; Start 08/16/18 at 08:00 Docusate Sodium (Colace Liquid Cup) 100 mg BID GTB Last administered on 09/02/18 21:03; Admin Dose 100 MG; Start 08/18/18 at 09:00 Clopidogrel Bisulfate (plaVIX) 75 mg DAILY NGT Last administered on 09/03/18 09:06; Admin Dose 75 MG; Start 08/18/18 at 13:30 Rifaximin (Xifaxan) 200 mg TID PO Last administered on 09/03/18 09:06; Admin Dose 200 MG; Start 08/19/18 at 13:00 Sevelamer Carbonate (Renvela) 2.4 gm WITH MEALS GTB Last administered on 09/03/18 09:05; Admin Dose 2.4 GM; Start 08/23/18 at 11:30 Ondansetron HCl (Zofran Inj) 4 mg Q4H PRN IV NAUSEA AND/OR VOMITING Last administered on 09/02/18at 12:57; Admin Dose 4 MG; Start 08/23/18 at 14:30 Lactobacillus Acidophilus/ Rhamnosus (Culturelle) 1 cap TID GTB Last administered on 09/03/18 09:06; Admin Dose 1 CAP; Start 08/24/18 at 13:00 Albumin Human 100 ml @ 100 mls/hr WITH DIALYSIS PRN IV SBP <90 DURING DIALYSIS; Start 08/26/18 at 12:00 Sodium Chloride (NS) -To prime the dialy... DIRECTED FOR HD PRN IV HD; Start 08/26/18 at 12:00 Nitroglycerin (Nitroglycerin 2% Oint) 0.5 inch Q6 PRN TD CHEST PAIN; Start 08/27/18 at 00:30 Lorazepam (Ativan) 1 mg Q4H PRN IV ANXIETY Last administered on 08/27/18at 04:14; Admin Dose 1 MG; Start 08/27/18 at 04:30 Sodium Chloride 500 ml @ 0 mls/hr Q0M IV Last administered on 08/27/18 06:51; Admin Dose 1,000 MLS/HR; Start 08/27/18 at 06:30 Vancomycin HCl (Vanco Iv Per Pharmacy) VANCOMYCIN PER PHARMACY PER PROTOCOL XX ; Start 08/27/18 at 10:00 Cefepime HCl 50 ml @ 100 mls/hr Q24H IVPB Last administered on 09/03/18at 10:39; Admin Dose 100 MLS/HR; Start 08/27/18 at 10:30 Eye Lubricant (Artificial Tears Oph) 2 drop Q2H PRN BOTH EYES dry eyes; Start 08/28/18 at 01:30 Heparin Sodium (Porcine) (Heparin (5000 Units/1ml)) 5,000 unit Q8 SC Last administered on 09/03/18at 05:56; Admin Dose 5,000 UNIT; Start 08/29/18 at 14:00 Epoetin Jarrell-epbx (RETACRIT(esrd)) 10,000 unit MoWeFr@1700 SC Last administered on 08/31/18at 17:51; Admin Dose 10,000 UNIT; Start 08/29/18 at 17:00 Morphine Sulfate (morphine) 3 mg Q1H PRN GTB PAIN NOT RELIEVED BY OTHERS Last administered on 08/30/18at 13:12; Admin Dose 3 MG; Start 08/29/18 at 12:00 Lansoprazole (Prevacid) 30 mg DAILY@06 GTB Last administered on 09/03/18at 05:39; Admin Dose 30 MG; Start 08/30/18 at 06:00 Carvedilol (Coreg) 25 mg TID PO Last administered on 09/03/18at 09:06; Admin Dose 25 MG; Start 08/30/18 at 09:00 Oxycodone HCl (Roxicodone) 5 mg Q4H PRN PO MODERATE PAIN LEVEL 4-6 Last administered on 09/02/18at 13:01; Admin Dose 5 MG; Start 09/01/18 at 10:00 VTE Prophylaxis Risk score (from Ns)>0 risk: 7 SCD applied (from [facility] [place]): Yes Lines/Catheters IV Catheter Type: Aguilar in Place: No Assessment/Plan Hospital Course Subjective Patient doing well, moves to command, able to communicate Objective Physical exam General: Patient is laying in bed with tracheostomy Mentation: Patient is alert and oriented Head: Normocephalic atraumatic Eyes: EOMI, pupils reactive to light Neck: Supple, nontender, midline Respiratory: Coarse to auscultation bilaterally Cardiovascular: regular rate, no obvious murmurs Gastrointestinal: non-tender to palpation, bowel sounds heard. Neurological: Able to follow commands and move all extremities, although limited Skin: No new skin lesions Assessment/Plan 1. Acute hypoxic respiratory failure - Per Pulm, trach may be sitting on trach wall, doing much better now that patient's neck was repositioned - Patients mentation improved significantly after trach was adjusted, cardiothoracic surgeon was notified to possibly adjust trach, saw patient and stated no intervention needed. -Has PEG and trach 2. Acute toxic/metabolic encephalopathy-decompensated from hypercapnia, resolved -After decompensating hypoxic event earlier in the week, patient back to her previous baseline a few days ago of able to follow command and interact. - Neurology input appreciated and will reconsult if needed 3. Bilateral CVA - Found on MRI, likely thromboembolic secondary to cardiopulmonary arrest per neurology - Continue on aspirin/plavix and Lipitor 4. Anemia, blood loss and renal disease- stable - Hgb remains stable, transfuse as needed - PPI daily 5. Bilateral Pneumonia -Infectious disease on board, antibiotics per infectious disease 6. Septic shock secondary to PNA and bacteremia- resolved - Blood cultures and sputum culture results noted. - ID on board Hypotension, resolved -May be due secondary to respiratory events overnight -Pressors as needed Rhabdomyolysis -Nephrology on board, dialysis as needed, unsure if rhabdomyolysis is acute. Right leg pain, minimal to none -Ultrasound venous negative -Likely secondary to debility, pain medication as needed -If pain continues , will perform CT scan, (however no pain currently) 7. CAD s/p PCI x2 - Cardiology on board and appreciate recommendations. Stressed importance of continuing DAPT given recent stent placements and high risk of restenosis - s/p emergent Cath 08/05 with successful PTCA and stenting of proximal and mid LAD, PTCA of the large first diagonal and thrombectomy of the LAD - Repeat PCI on 08/07 performed with stenting to LCx - plans for stenting of RCA prior to discharge if possible 8. Renal failure on HD - Nephrology on board and appreciate recommendations. Continue HD - secondary to septic shock, ATN vs prerenal vs contrast induced nephropathy - will avoid nephrotoxic agents 9. Diabetes - A1c noted - ISS not needed 10. S/p V-fib cardiac arrest secondary to STEMI - Completed hypothermia protocol 11. Disposition -Patient stable, cardiology plans for possible repeat cardiac cath sometime early this week HARPAL PEDROZA Sep 03, 2018 11:38
--- NOTE | 2018-09-03 15:21 | CONS ---
Assessment/Plan Assessment/Plan Hospital Course (Demo Recall) Alert, feels good, no fevers, family at bedside Antimicrobials: Vancomycin cefepime Microbiology: Urine culture on admission grew E. coli and Proteus, blood cultures growing oxacillin sensitive staph aureus endotracheal aspirate also growing oxacillin sensitive staph aureus ear drainage preliminary growing staph aureus, repeat blood cultures 2 days ago negative Indwelling: Trach, PEG, right femoral Devan, right upper extremity PICC line Physical examination: Obese well-developed middle-aged woman who is intubated in no distress. Head atraumatic normocephalic neck is supple chest rise symmetrical breath sounds diminished bases. Heart: S1-S2. Abdomen distended. Bowel sounds hypoactive. Extremities cyanotic Assessment: 1. S/p sepsis 2. Healthcare associated pneumonia==> treated 3. S/p Oxacillin sensitive staph aureus bacteremia 2 to #3 4. S/p polymicrobial UTI 5. ST elevation GA, status post stent 6. Status post V. fib arrest 7. Acute renal failure, started on hemodialysis 8. 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 Anemia and thrombocytopenia 10. Acute sinusitis and bilateral mastoiditis 11. Morbid obesity 12. Diarrhea, r/o C dif Plan: Stable, cxr and pulmonary rec-s noted, will dc abx and observe Consultation Date/Type/Reason Admit Date/Time Aug 04, 2018 at 23:10 Initial Consult Date 08/12/18 Type of Consult id Requesting Provider: HARPAL AGGARWAL MD Date/Time of Note DATE: 09/03/18 TIME: 15:20 Exam/Review of Systems Exam Vitals Vital Signs Date Temp Pulse Resp B/P (MAP) Pulse Ox O2 O2 Flow FiO2 Time Delivery Rate 09/03/18 89 12:01 09/03/18 98.6 16 131/84 97 11:21 (100) 09/03/18 30 10:21 09/02/18 Mechanical 12:00 Ventilator Intake and Output 09/02/18 09/02/18 09/03/18 1515:00 23:00 07:00 IntakeIntake Total 560 ml 560 ml OutputOutput Total 2500 ml 215 ml 90 ml BalanceBalance -2500 ml 345 ml 470 ml Results Result Diagram: 09/03/18 0525 09/03/18 0525 Results 24hrs Laboratory Tests Test 09/03/18 05:25 White Blood Count 12.2 H Red Blood Count 2.86 L Hemoglobin 8.4 L Hematocrit 27.5 L Mean Corpuscular Volume 96.2 Mean Corpuscular Hemoglobin 29.4 Mean Corpuscular Hemoglobin Concent 30.5 L Red Cell Distribution Width 16.9 H Platelet Count 199 Mean Platelet Volume 13.7 H Immature Granulocytes % 4.800 H Neutrophils % 66.6 Lymphocytes % 16.5 Monocytes % 8.4 Eosinophils % 2.8 Basophils % 0.9 Nucleated Red Blood Cells % 0.0 Immature Granulocytes # 0.590 H Neutrophils # 8.1 H Lymphocytes # 2.0 Monocytes # 1.0 H Eosinophils # 0.3 Basophils # 0.1 Nucleated Red Blood Cells # 0.0 Sodium Level 136 Potassium Level 3.9 Chloride Level 100 Carbon Dioxide Level 27 Anion Gap 9 Blood Urea Nitrogen 45 #H Creatinine 2.87 H Est Glomerular Filtrat Rate mL/min 18 L Glucose Level 119 Calcium Level 9.2 Phosphorus Level 4.5 Magnesium Level 2.3 Total Bilirubin 0.2 Direct Bilirubin 0.00 Indirect Bilirubin 0.2 Aspartate Amino Transf (AST/SGOT) 78 H Alanine Aminotransferase (ALT/SGPT) 101 H Alkaline Phosphatase 563 H Total Protein 6.5 Albumin 2.8 L Medications Medication Current Medications Atorvastatin Calcium (Lipitor) 80 mg DAILY@21 PO Last administered on 09/02/18at 21:03; Admin Dose 80 MG; Start 08/05/18 at 21:00 Miscellaneous Information 1 ea NOTE XX ; Start 08/05/18 at 09:00 Acetaminophen (Tylenol Liquid) 650 mg Q4H PRN PO ELEVATED TEMPERATURE Last administered on 09/01/18at 00:29; Admin Dose 650 MG; Start 08/05/18 at 11:00; Status Hold Miscellaneous Information (* Miscellaneous Pharmacy Order) Treatment of Hypoglycemia: 1.BG 51... Per protocol XX ; Start 08/05/18 at 12:00 Dextrose (D50w Syringe) 25 ml Q15M PRN IV .DECREASED GLUCOSE; Start 08/05/18 at 12:00 Dextrose (D50w Syringe) 50 ml Q15M PRN IV .DECREASED GLUCOSE; Start 08/05/18 at 12:00 Aspirin (Aspirin) 81 mg DAILY NGT Last administered on 09/03/18at 09:06; Admin Dose 81 MG; Start 08/06/18 at 09:00 Multivitamins (Multivitamin) 30 ml DAILY NGT Last administered on 09/03/18 09:06; Admin Dose 30 ML; Start 08/09/18 at 09:00 Zinc Sulfate (Zinc Sulfate) 220 mg DAILY NGT Last administered on 09/03/18 09:06; Admin Dose 220 MG; Start 08/09/18 at 09:00 Folic Acid (Folic Acid) 1 mg DAILY NGT Last administered on 09/03/18 09:06; Admin Dose 1 MG; Start 08/09/18 at 09:00 Ascorbic Acid (Vitamin C) 500 mg DAILY NGT Last administered on 09/03/18 09:06; Admin Dose 500 MG; Start 08/09/18 at 09:00 Albuterol (Ventolin Hfa) 4 puff Q6HWA RESP THERAPY INH Last administered on 09/03/18 14:31; Admin Dose 4 PUFF; Start 08/09/18 at 14:00 Ipratropium [place] (Atrovent Hfa) 4 puff Q6H RESP THERAPY INH Last administered on 09/03/18 14:31; Admin Dose 4 PUFF; Start 08/09/18 at 14:00 IV Flush (NS 10 ml) 10 ml PRN PRN IV IV PROTOCOL; Start 08/11/18 at 16:30 Heparin Sodium (Porcine) (Heparin (1000 Units/ml)) 3,000 unit PRN PRN CATHETER Dialysis Last administered on 08/31/18 12:16; Admin Dose 3,000 UNIT; Start 08/12/18 at 14:30 Labetalol HCl (Labetalol) 10 mg Q4H PRN IV ELEVATED SYSTOLIC BP > 180 Last administered on 08/20/18 16:54; Admin Dose 10 MG; Start 08/14/18 at 19:00 Hydralazine HCl (Apresoline) 20 mg Q2 PRN IV ELEVATED SYSTOLIC BP Last ad ministered on 08/22/18 16:18; Admin Dose 20 MG; Start 08/16/18 at 08:00 Docusate Sodium (Colace Liquid Cup) 100 mg BID GTB Last administered on 09/02/18 21:03; Admin Dose 100 MG; Start 08/18/18 at 09:00 Clopidogrel Bisulfate (plaVIX) 75 mg DAILY NGT Last administered on 09/03/18 09:06; Admin Dose 75 MG; Start 08/18/18 at 13:30 Rifaximin (Xifaxan) 200 mg TID PO Last administered on 09/03/18 12:17; Admin Dose 200 MG; Start 08/19/18 at 13:00 Sevelamer Carbonate (Renvela) 2.4 gm WITH MEALS GTB Last administered on 09/03/18 12:16; Admin Dose 2.4 GM; Start 08/23/18 at 11:30 Ondansetron HCl (Zofran Inj) 4 mg Q4H PRN IV NAUSEA AND/OR VOMITING Last administered on 09/02/18 12:57; Admin Dose 4 MG; Start 08/23/18 at 14:30 Lactobacillus Acidophilus/ Rhamnosus (Culturelle) 1 cap TID GTB Last administered on 09/03/18 12:16; Admin Dose 1 CAP; Start 08/24/18 at 13:00 Albumin Human 100 ml @ 100 mls/hr WITH DIALYSIS PRN IV SBP <90 DURING DIALYSIS; Start 08/26/18 at 12:00 Sodium Chloride (NS) -To prime the dialy... DIRECTED FOR HD PRN IV HD; Start 08/26/18 at 12:00 Nitroglycerin (Nitroglycerin 2% Oint) 0.5 inch Q6 PRN TD CHEST PAIN; Start 08/27/18 at 00:30 Lorazepam (Ativan) 1 mg Q4H PRN IV ANXIETY Last administered on 08/27/18 04:14; Admin Dose 1 MG; Start 08/27/18 at 04:30 Sodium Chloride 500 ml @ 0 mls/hr Q0M IV Last administered on 08/27/18 06:51; Admin Dose 1,000 MLS/HR; Start 08/27/18 at 06:30 Vancomycin HCl (Vanco Iv Per Pharmacy) VANCOMYCIN PER PHARMACY PER PROTOCOL XX ; Start 08/27/18 at 10:00 Cefepime HCl 50 ml @ 100 mls/hr Q24H IVPB Last administered on 09/03/18 10:3 9; Admin Dose 100 MLS/HR; Start 08/27/18 at 10:30 Eye Lubricant (Artificial Tears Oph) 2 drop Q2H PRN BOTH EYES dry eyes; Start 08/28/18 at 01:30 Heparin Sodium (Porcine) (Heparin (5000 Units/1ml)) 5,000 unit Q8 SC Last administered on 09/03/18at 05:56; Admin Dose 5,000 UNIT; Start 08/29/18 at 14:00 Epoetin Jarrell-epbx (RETACRIT(esrd)) 10,000 unit MoWeFr@1700 SC Last administered on 08/31/18at 17:51; Admin Dose 10,000 UNIT; Start 08/29/18 at 17:00 Morphine Sulfate (morphine) 3 mg Q1H PRN GTB PAIN NOT RELIEVED BY OTHERS Last administered on 08/30/18at 13:12; Admin Dose 3 MG; Start 08/29/18 at 12:00 Lansoprazole (Prevacid) 30 mg DAILY@06 GTB Last administered on 09/03/18at 05:39; Admin Dose 30 MG; Start 08/30/18 at 06:00 Carvedilol (Coreg) 25 mg TID PO Last administered on 09/03/18at 12:17; Admin Dose 25 MG; Start 08/30/18 at 09:00 Oxycodone HCl (Roxicodone) 5 mg Q4H PRN PO MODERATE PAIN LEVEL 4-6 Last administered on 09/02/18at 13:01; Admin Dose 5 MG; Start 09/01/18 at 10:00 WIN LUCIANO NP Sep 03, 2018 15:21
--- NOTE | 2018-09-03 16:00 | CONS ---
Consult Date/Type/Reason Admit Date/Time Aug 04, 2018 at 23:10 Initial Consult Date 08/05/18 Type of Consultation: cv Requesting Provider: HARPAL AGGARWAL MD Date/Time of Note DATE: 09/03/18 TIME: 15:59 Subjective Interventional cardiology follow-up progress note Subjective: Events noted discussed with the staff and sister Patient remains on the vent s/p trach . TELE was reviewed. No V tachycardia or V fibrillation. BP is stable now pt with no more bleeding at PEG or trach sites. she denies any cp to me now pt had no more issues with trach last night Patient still has right foot pain. events noted s/p PCI 100% occluded LAD 08/04 S/P PCI LCX/ OM s/p trach 08/22/18 Objective: General: Obese female no acute distress HEENT: NC/AT. pupils are equal. round. NECK: . no stridor. s/p trach CV: RRR. systolic murmur; no gallop or rubs. PULM: no wheezing + diffuse rhonchi. GI: Obese SOFT, NT, ND, no rebound or guarding s/pPEG Extremity: +B/L LE edema. no clubbing. neuro: awake and follows commands Psych: Calm now rectal: deferred EKG August 06, 2018 was personally within normal sinus rhythm. T wave inversions anterior and inferior leads ECG 08/07: NSR ST T abn c/w ant/lat ischemia CXR 08/14: Nonspecific patchy bilateral pulmonary opacity, mildly improved on the right. No pneumothorax. Endotracheal tube, nasogastric tube, and right-sided PICC line remain in place. Stable mild cardiomegaly. The osseous structures are r emarkable for degenerative enthesopathy of the spine. Chest x-ray done August 06 shows:No evidence for active cardiopulmonary disease. CXR 08/19: Diffuse bilateral reticular nodular infiltrates unchanged. Question bronchopneumonia versus failure. CXR 08/28/18: Allowing for support structures overlying the right base, no significant change. Left mid and bibasilar air space opacities/infiltrates are again present. Lines and tubes are stable ECHO personally reviewed Normal left ventricular cavity size. Normal left ventricular wall thickness. Ejection fraction is visually estimated at 55-65 %. Normal appearance of the mitral valve. Mitral valve is not well visualized. No mitral valve regurgitation is seen. Aortic valve not well visualized. No aortic regurgitation. Normal appearance of the tricuspid valve. Unable to obtain RVSP due to minimal presence of tricuspid regurgitation. No evidence of tricuspid regurgitation. Normal pericardium with no significant pericardial effusion. suboptimal study. Objective Vitals Vital Signs Date Temp Pulse Resp B/P (MAP) Pulse Ox O2 O2 Flow FiO2 Time Delivery Rate 09/03/18 98.4 93 16 132/76 99 15:44 (94) 09/03/18 30 10:21 09/02/18 Mechanical 12:00 Ventilator Intake and Output 09/02/18 09/02/18 09/03/18 1414:59 22:59 06:59 IntakeIntake Total 560 ml 560 ml OutputOutput Total 2500 ml 215 ml 90 ml BalanceBalance -2500 ml 345 ml 470 ml Results/Medications Result Diagram: 09/03/18 0525 09/03/18 0525 Results 24 hrs Laboratory Tests Test 09/03/18 05:25 White Blood Count 12.2 H Red Blood Count 2.86 L Hemoglobin 8.4 L Hematocrit 27.5 L Mean Corpuscular Volume 96.2 Mean Corpuscular Hemoglobin 29.4 Mean Corpuscular Hemoglobin Concent 30.5 L Red Cell Distribution Width 16.9 H Platelet Count 199 Mean Platelet Volume 13.7 H Immature Granulocytes % 4.800 H Neutrophils % 66.6 Lymphocytes % 16.5 Monocytes % 8.4 Eosinophils % 2.8 Basophils % 0.9 Nucleated Red Blood Cells % 0.0 Immature Granulocytes # 0.590 H Neutrophils # 8.1 H Lymphocytes # 2.0 Monocytes # 1.0 H Eosinophils # 0.3 Basophils # 0.1 Nucleated Red Blood Cells # 0.0 Sodium Level 136 Potassium Level 3.9 Chloride Level 100 Carbon Dioxide Level 27 Anion Gap 9 Blood Urea Nitrogen 45 #H Creatinine 2.87 H Est Glomerular Filtrat Rate mL/min 18 L Glucose Level 119 Calcium Level 9.2 Phosphorus Level 4.5 Magnesium Level 2.3 Total Bilirubin 0.2 Direct Bilirubin 0.00 Indirect Bilirubin 0.2 Aspartate Amino Transf (AST/SGOT) 78 H Alanine Aminotransferase (ALT/SGPT) 101 H Alkaline Phosphatase 563 H Total Protein 6.5 Albumin 2.8 L Medications Current Medications Atorvastatin Calcium (Lipitor) 80 mg DAILY@21 PO Last administered on 09/02/18at 21:03; Admin Dose 80 MG; Start 08/05/18 at 21:00 Miscellaneous Information 1 ea NOTE XX ; Start 08/05/18 at 09:00 Acetaminophen (Tylenol Liquid) 650 mg Q4H PRN PO ELEVATED TEMPERATURE Last administered on 09/01/18 00:29; Admin Dose 650 MG; Start 08/05/18 at 11:00; Status Hold Miscellaneous Information (* Miscellaneous Pharmacy Order) Treatment of Hypoglycemia: 1.BG 51... Per protocol XX ; Start 08/05/18 at 12:00 Dextrose (D50w Syringe) 25 ml Q15M PRN IV .DECREASED GLUCOSE; Start 08/05/18 at 12:00 Dextrose (D50w Syringe) 50 ml Q15M PRN IV .DECREASED GLUCOSE; Start 08/05/18 at 12:00 Aspirin (Aspirin) 81 mg DAILY NGT Last administered on 09/03/18 09:06; Admin Dose 81 MG; Start 08/06/18 at 09:00 Multivitamins (Multivitamin) 30 ml DAILY NGT Last administered on 09/03/18 09:06; Admin Dose 30 ML; Start 08/09/18 at 09:00 Zinc Sulfate (Zinc Sulfate) 220 mg DAILY NGT Last administered on 09/03/18 09:06; Admin Dose 220 MG; Start 08/09/18 at 09:00 Folic Acid (Folic Acid) 1 mg DAILY NGT Last administered on 09/03/18 09:06; Admin Dose 1 MG; Start 08/09/18 at 09:00 Ascorbic Acid (Vitamin C) 500 mg DAILY NGT Last administered on 09/03/18 09:06; Admin Dose 500 MG; Start 08/09/18 at 09:00 Albuterol (Ventolin Hfa) 4 puff Q6HWA RESP THERAPY INH Last administered on 09/03/18 14:31; Admin Dose 4 PUFF; Start 08/09/18 at 14:00 Ipratropium [place] (Atrovent Hfa) 4 puff Q6H RESP THERAPY INH Last administered on 09/03/18 14:31; Admin Dose 4 PUFF; Start 08/09/18 at 14:00 IV Flush (NS 10 ml) 10 ml PRN PRN IV IV PROTOCOL; Start 08/11/18 at 16:30 Heparin Sodium (Porcine) (Heparin (1000 Units/ml)) 3,000 unit PRN PRN CATHETER Dialysis Last administered on 08/31/18 12:16; Admin Dose 3,000 UNIT; Start 08/12/18 at 14:30 Labetalol HCl (Labetalol) 10 mg Q4H PRN IV ELEVATED SYSTOLIC BP > 180 Last administered on 08/20/18 16:54; Admin Dose 10 MG; Start 08/14/18 at 19:00 Hydralazine HCl (Apresoline) 20 mg Q2 PRN IV ELEVATED SYSTOLIC BP Last ad ministered on 08/22/18 16:18; Admin Dose 20 MG; Start 08/16/18 at 08:00 Docusate Sodium (Colace Liquid Cup) 100 mg BID GTB Last administered on 09/02/18 21:03; Admin Dose 100 MG; Start 08/18/18 at 09:00 Clopidogrel Bisulfate (plaVIX) 75 mg DAILY NGT Last administered on 09/03/18 09:06; Admin Dose 75 MG; Start 08/18/18 at 13:30 Rifaximin (Xifaxan) 200 mg TID PO Last administered on 09/03/18 12:17; Admin Dose 200 MG; Start 08/19/18 at 13:00 Sevelamer Carbonate (Renvela) 2.4 gm WITH MEALS GTB Last administered on 09/03/18 12:16; Admin Dose 2.4 GM; Start 08/23/18 at 11:30 Ondansetron HCl (Zofran Inj) 4 mg Q4H PRN IV NAUSEA AND/OR VOMITING Last administered on 09/02/18 12:57; Admin Dose 4 MG; Start 08/23/18 at 14:30 Lactobacillus Acidophilus/ Rhamnosus (Culturelle) 1 cap TID GTB Last administered on 09/03/18 12:16; Admin Dose 1 CAP; Start 08/24/18 at 13:00 Albumin Human 100 ml @ 100 mls/hr WITH DIALYSIS PRN IV SBP <90 DURING DIALYSIS; Start 08/26/18 at 12:00 Sodium Chloride (NS) -To prime the dialy... DIRECTED FOR HD PRN IV HD; Start 08/26/18 at 12:00 Nitroglycerin (Nitroglycerin 2% Oint) 0.5 inch Q6 PRN TD CHEST PAIN; Start 08/27/18 at 00:30 Lorazepam (Ativan) 1 mg Q4H PRN IV ANXIETY Last administered on 08/27/18 04:14; Admin Dose 1 MG; Start 08/27/18 at 04:30 Sodium Chloride 500 ml @ 0 mls/hr Q0M IV Last administered on 08/27/18 06:51; Admin Dose 1,000 MLS/HR; Start 08/27/18 at 06:30 Vancomycin HCl (Vanco Iv Per Pharmacy) VANCOMYCIN PER PHARMACY PER PROTOCOL XX ; Start 08/27/18 at 10:00 Cefepime HCl 50 ml @ 100 mls/hr Q24H IVPB Last administered on 09/03/18 10:3 9; Admin Dose 100 MLS/HR; Start 08/27/18 at 10:30 Eye Lubricant (Artificial Tears Oph) 2 drop Q2H PRN BOTH EYES dry eyes; Start 08/28/18 at 01:30 Heparin Sodium (Porcine) (Heparin (5000 Units/1ml)) 5,000 unit Q8 SC Last administered on 09/03/18at 15:35; Admin Dose 5,000 UNIT; Start 08/29/18 at 14:00 Epoetin Jarrell-epbx (RETACRIT(esrd)) 10,000 unit MoWeFr@1700 SC Last administered on 08/31/18 17:51; Admin Dose 10,000 UNIT; Start 08/29/18 at 17:00 Morphine Sulfate (morphine) 3 mg Q1H PRN GTB PAIN NOT RELIEVED BY OTHERS Last administered on 08/30/18 13:12; Admin Dose 3 MG; Start 08/29/18 at 12:00 Lansoprazole (Prevacid) 30 mg DAILY@06 GTB Last administered on 09/03/18 05:39; Admin Dose 30 MG; Start 08/30/18 at 06:00 Carvedilol (Coreg) 25 mg TID PO Last administered on 09/03/18 12:17; Admin Dose 25 MG; Start 08/30/18 at 09:00 Oxycodone HCl (Roxicodone) 5 mg Q4H PRN PO MODERATE PAIN LEVEL 4-6 Last administered on 09/02/18at 13:01; Admin Dose 5 MG; Start 09/01/18 at 10:00 Assessment/Plan Hospital Course (Demo Recall) 1. s/p V. fib cardiac arrest 2. Acute myocardial infarction 3. Status post emergent PCI of the 100% occluded LAD as well as PTCA of the diagonal and PCI LCX/ OM 4. Diabetes 5. Respiratory failure status post intubation on the vent 6. Hypertension 7. Renal failure : acute on chronic 8. Likely history of congestive heart failure 9. Dyslipidemia 10. Encephalopathy: Clear anoxic brain injury on hypothermia protocol 11. Morbid obesity 12. Anemia 13. elevated LFT 14. fever, bacteremia pneumonia 15. Malnutrition, anasarca . 16. septic shock and staph aureus bacteremia 17. oropharyngeal bleeding 18. CVA Recommendations: Continue with aspirin plavix Antibiotic management as per ID recommendation. on Vanco HD as per renal Vent support respiratory care as per internal medicine and pulmonary consultants. s/p Trach now inc Coreg as tolerated/needed Monitor renal function. f/u renal consult rec regarding hemodialysis PPI . Transfusion prn given her severe anemia and SC/ VF pt still has a high grade 90% proximal RCA Stenosis. WILL PLAN for PCI RCA monday Risks benefits and alternatives of procedure discussed with the patient and her sister in detail. Risks including but not limited to risk of infection vascular claudication bleeding complication SC stroke arrhythmia renal failure etc. discussed. Consent has been obtained hep SQ for DVT prophylaxis CODE STATUS full code Thank you for his referral. We will continue to follow along with you as needed over the weekend. LOIS JOHNSON MD [facility] LOIS JOHNSON MD Sep 03, 2018 16:00
[2018-09-03] MEDS: EPOETIN ALFA-EPBX (ESRD) 10,000 UNIT/ML VIAL SC SCH (17:17)
[2018-09-03] MEDS: ATORVASTATIN 80 MG TAB PO SCH (20:47)
[2018-09-04] VITALS (39 sets, daily range): BP systolic 98–175; BP diastolic 69–109; PULSE 72–100; RESP 14–29
[2018-09-04] MEDS: IPRATROPIUM (HFA) 12.9 GM INHALER INH SCH ×4 (01:03→19:04)
[2018-09-04] MEDS: LANSOPRAZOLE 30 MG CAP GTB SCH (05:57)
[2018-09-04] MEDS: HEPARIN 5,000 UNIT/1 ML VIAL SC SCH ×3 (05:57→22:15)
[2018-09-04] MEDS: SEVELAMER CARBONATE 2.4 GM PKT GTB SCH ×2 (08:00→16:37)
[2018-09-04] MEDS: LACTOBACILLUS RHAMNOSUS CAP GTB SCH ×3 (08:07→21:06)
[2018-09-04] MEDS: CLOPIDOGREL 75 MG TAB NGT SCH (08:07)
[2018-09-04] MEDS: MULTIVITAMINS 30 ML CUP NGT SCH (08:07)
[2018-09-04] MEDS: FOLIC ACID 1 MG TAB NGT SCH (08:07)
[2018-09-04] MEDS: ALBUTEROL HFA 8 GM INHALER INH SCH ×3 (08:07→19:04)
[2018-09-04] MEDS: ASCORBIC ACID 500 MG TAB NGT SCH (08:07)
[2018-09-04] MEDS: ASPIRIN 81 MG TAB NGT SCH (08:07)
[2018-09-04] MEDS: DOCUSATE SODIUM 10 MG/ML (10ML CUP) GTB SCH ×2 (08:07→21:06)
[2018-09-04] MEDS: ZINC SULFATE 220 MG CAP NGT SCH (08:08)
[2018-09-04] MEDS: RIFAXIMIN 200 MG TAB PO SCH ×3 (08:08→21:06)
[2018-09-04] MEDS: hydrALAzine 20 MG INJ IV PRN (08:58)
[2018-09-04] MEDS ORDERED: FENTAnyl 50 MCG/ML VIAL ONE (09:50)
[2018-09-04] MEDS ORDERED: MIDAZOLAM 1 MG/ML 2 ML INJ ONE (09:50)
[2018-09-04] MEDS ORDERED: IODIXANOL LOCM 50 ML BTL ONE (09:50)
[2018-09-04] MEDS ORDERED: BIVALIRUDIN 250MG /NS 50 ML 50 ML IVPB ONE (09:50)
[2018-09-04] MEDS ORDERED: NITROGLYCERIN (IC) 100 MCG/ML INJ ONE (09:50)
[2018-09-04] MEDS ORDERED: LIDOCAINE 1% (MDV) 20 ML INJ ONE (09:50)
[2018-09-04] MEDS ORDERED: IOHEXOL 350MG/ML 50 ML BTL ONE (09:51)
[2018-09-04] MEDS ORDERED: ASPIRIN 81 MG TAB ONE (10:17)
[2018-09-04] MEDS ORDERED: CLOPIDOGREL 300 MG TAB ONE (10:17)
[2018-09-04] MEDS ORDERED: SOD CHLORIDE 0.9% 1,000 ML IV SCH (10:52)
--- NOTE | 2018-09-04 11:01 | OPR ---
Date/Time of Note Date/Time of Note DATE: 09/04/18 TIME: 10:55 Operative Report Procedure Date: Sep 04, 2018 Preoperative Diagnosis NSTEMI Postoperative Diagnosis NSTEMI Operation/Procedure Performed PCI RCA Surgeon see signature line Od Grinder Operator ORTEGA Anesthesia Type: moderate sedation Estimated Blood Loss: minimal Transfusion none Specimen none Grafts/Implants none Complications none Procedure Description Editor Magazine: Lois Rashid MD Indication: Non-ST elevation myocardial infarction. This is a 38-year-old female was presented a few weeks ago with V. fib cardiac arrest and ST elevation myocardial infarction. Patient has undergone successful PCI of her LAD and left circumflex artery previously. Was noted to have significant right coronary artery disease as well. Patient has has postinfarct angina and slight rise in her troponin consistent with non-ST elevation myocardial infarction. Was recommended to undergo PCI of this lesion Procure performed: #1 left heart catheterization and selective right and left coronary angiogram #2 Left femoral angiogram 3. Successful PTCA and stenting of proximal right coronary artery into the ostium using a 3 x 20 mm Synergy drug-eluting stent. Successful PTCA of distal right coronary artery and PDA and posterolateral artery using a 2.5 and 2.0 balloon 4. Moderate sedation for more than 60 minutes Findings: 1. Left main: is normal and birfurcates to LAD & LCX. 2. LAD: Previous stent is patent 3. Left circumflex artery: Previous stent is patent 4. RCA: is dominant. it has 70-80% ostial and 95% focal proximal stenosis. Af ter successful PCI of this lesion no significant residual stenosis left. Distal right coronary artery into the PDA and posterolateral artery also appears to have up to 70-80% stenosis. After successful angioplasty there was less than 10% residual stenosis left 5. LV EDP is 13 with no significant gradient across aortic valve Procedure in detail: Written informed consent with obtained after risks benefits and alternatives discussed with the patient in detail. risks including but not limited to risk of infection vascular complications, bleeding complications, [place] stroke arrhythmia renal failure at even were discussed with the patient and multiple family members in detail. Patient was brought into the cardiac biology laboratory assistant and placed in supine position. Right and left groin area was prepped and draped in regular sterile fashion and then he was in anesthetized using 1% lidocaine. femoral artery was cannulated and using modified seldinger technique a 6 German sheath was placed in the femoral artery. Femoral angiogram was performed JL4 guiding catheter was advanced to engage the left main coronary artery tiki ographic view was obtained. Then a JR4 guiding catheter was advanced to engage the left ventricle hemodynamics as recorded by pullback aortic pressure was measured. At this time we decided to perform PCI of the right coronary artery. A JR4 guiding catheter was advanced to engage the coronary artery. The MW wire was used and advanced across the lesion and placed distal to the lesion. I used a 2.5 x 12 mm balloon which was placed across the external and distal lesion and predilated the vessel. Then I used a 3 x 20 mm Synergy drug-eluting stent which was placed across the proximal/ostial lesion and deployed at 14 [place]. Stent ba piotron was used and postdilated the stent and up to 14 and 16 [place]. Then I used another BMW wire was advanced across into the posterior lateral artery. A 2.0 x 12 mm balloon was used and distal right coronary artery into the PDA LAD was dilated. Final angiographic view was obtained which showed KRISSY-3 flow no evidence of dissection and no significant residual stenosis at the site of the stent. Patient tolerated the procedure well with no complication. Patient was transferred to ICU in stable condition. contrast used: 60cc visipaque Conclusions: Successful PTCA stenting of the ostial/proximal right coronary artery from 95% stenosis to no significant residual stenosis using a 3 x 20 mm Synergy drug-eluting stent. Recommendations: Aggressive medical therapy. aspirin indefinitely dual antiplatlet therapy with aspirin and Plavix ICU care for now at least LOIS RASHID MD [facility] LOIS RASHID MD Sep 04, 2018 11:01
--- NOTE | 2018-09-04 13:03 | CONS ---
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 coli and Proteus, blood cultures growing oxacillin sensitive staph aureus endotracheal aspirate also growing oxacillin sensitive staph aureus ear drainage preliminary growing staph aureus, repeat blood cultures 2 days ago negative Indwelling: Trach, PEG, right femoral Devan, right upper extremity PICC line Physical examination: Obese well-developed middle-aged woman who is intubated in no distress. Head atraumatic normocephalic neck is supple chest rise symmet rical breath sounds diminished bases. Heart: S1-S2. Abdomen distended. Bowel sounds hypoactive. Extremities cyanotic Assessment: 1. S/p sepsis 2. Healthcare associated pneumonia==> treated 3. S/p Oxacillin sensitive staph aureus bacteremia 2 to #3 4. S/p polymicrobial UTI 5. ST elevation MA, status post stent 6. Status post V. fib arrest 7. Acute renal failure, started on hemodialysis 8. 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 Anemia and thrombocytopenia 10. Acute sinusitis and bilateral mastoiditis 11. Morbid obesity 12. Diarrhea, r/o C dif Plan: Remains stable, off abx, f/u cardiology rec-s Consultation Date/Type/Reason Admit Date/Time Aug 04, 2018 at 23:10 Initial Consult Date 08/12/18 Type of Consult id Requesting Provider: HARPAL AGGARWAL MD Date/Time of Note DATE: 09/04/18 TIME: 13:01 Exam/Review of Systems Exam Vitals Vital Signs Date Temp Pulse Resp B/P (MAP) Pulse Ox O2 O2 Flow FiO2 Time Delivery Rate 09/04/18 30 12:00 09/04/18 94 12:00 09/04/18 98.4 16 122/85 99 11:45 (97) 09/02/18 Mechanical 12:00 Ventilator Intake and Output 09/03/18 09/03/18 09/04/18 1515:00 23:00 07:00 IntakeIntake Total 550 ml 400 ml OutputOutput Total 225 ml 100 ml BalanceBalance 325 ml 300 ml Results Result Diagram: 09/04/18 0514 09/04/18 0514 Results 24hrs Laboratory Tests Test 09/04/18 05:14 09/04/18 09:43 White Blood Count 12.4 H Red Blood Count 2.73 L Hemoglobin 8.0 L Hematocrit 26.2 L Mean Corpuscular Volume 96.0 Mean Corpuscular Hemoglobin 29.3 Mean Corpuscular Hemoglobin Concent 30.5 L Red Cell Distribution Width 17.0 H Platelet Count 195 Mean Platelet Volume 13.3 H Immature Granulocytes % 4.800 H Neutrophils % 64.4 Lymphocytes % 19.5 Monocytes % 7.5 Eosinophils % 2.8 Basophils % 1.0 Nucleated Red Blood Cells % 0.0 Immature Granulocytes # 0.600 H Neutrophils # 8.0 H Lymphocytes # 2.4 Monocytes # 0.9 Eosinophils # 0.4 Basophils # 0.1 Nucleated Red Blood Cells # 0.0 Prothrombin Time 14.2 Prothrombin Time Ratio 1.1 INR International Normalized Ratio 1.09 Sodium Level 136 Potassium Level 4.5 Chloride Level 101 Carbon Dioxide Level 24 Anion Gap 11 Blood Urea Nitrogen 57 H Creatinine 3.49 H Est Glomerular Filtrat Rate mL/min 15 L Glucose Level 98 Calcium Level 9.5 Phosphorus Level 5.4 H Magnesium Level 2.4 Total Bilirubin 0.1 L Direct Bilirubin 0.00 Indirect Bilirubin 0.1 Aspartate Amino Transf (AST/SGOT) 67 H Alanine Aminotransferase (ALT/SGPT) 83 H Alkaline Phosphatase 464 H Creatine Kinase 53 Creatine Kinase Index 22.3 Creatinine Kinase MB (Mass) 11.80 H Troponin I 0.123 *H Total Protein 6.4 Albumin 2.7 L Globulin 3.70 H Albumin/Globulin Ratio 0.72 Lab Scanned Report REFERENCE LAB Medications Medication Current Medications Atorvastatin Calcium (Lipitor) 80 mg DAILY@21 PO Last administered on 09/03/18at 20:47; Admin Dose 80 MG; Start 08/05/18 at 21:00 Miscellaneous Information 1 ea NOTE XX ; Start 08/05/18 at 09:00 Acetaminophen (Tylenol Liquid) 650 mg Q4H PRN PO ELEVATED TEMPERATURE Last administered on 09/01/18at 00:29; Admin Dose 650 MG; Start 08/05/18 at 11:00; Status Hold Miscellaneous Information (* Miscellaneous Pharmacy Order) Treatment of Hypoglycemia: 1.BG 51... Per protocol XX ; Start 08/05/18 at 12:00 Dextrose (D50w Syringe) 25 ml Q15M PRN IV .DECREASED GLUCOSE; Start 08/05/18 at 12:00 Dextrose (D50w Syringe) 50 ml Q15M PRN IV .DECREASED GLUCOSE; Start 08/05/18 at 12:00 Aspirin (Aspirin) 81 mg DAILY NGT Last administered on 09/03/18 09:06; Admin Dose 81 MG; Start 08/06/18 at 09:00 Multivitamins (Multivitamin) 30 ml DAILY NGT Last administered on 09/03/18 09:06; Admin Dose 30 ML; Start 08/09/18 at 09:00 Zinc Sulfate (Zinc Sulfate) 220 mg DAILY NGT Last administered on 09/03/18 09:06; Admin Dose 220 MG; Start 08/09/18 at 09:00 Folic Acid (Folic Acid) 1 mg DAILY NGT Last administered on 09/03/18 09:06; Admin Dose 1 MG; Start 08/09/18 at 09:00 Ascorbic Acid (Vitamin C) 500 mg DAILY NGT Last administered on 09/03/18 09:06; Admin Dose 500 MG; Start 08/09/18 at 09:00 Albuterol (Ventolin Hfa) 4 puff Q6HWA RESP THERAPY INH Last administered on 09/04/18 08:07; Admin Dose 4 PUFF; Start 08/09/18 at 14:00 Ipratropium [place] (Atrovent Hfa) 4 puff Q6H RESP THERAPY INH Last administered on 09/04/18 08:06; Admin Dose 4 PUFF; Start 08/09/18 at 14:00 IV Flush (NS 10 ml) 10 ml PRN PRN IV IV PROTOCOL; Start 08/11/18 at 16:30 Heparin Sodium (Porcine) (Heparin (1000 Units/ml)) 3,000 unit PRN PRN CATHETER Dialysis Last administered on 08/31/18 12:16; Admin Dose 3,000 UNIT; Start 08/12/18 at 14:30 Labetalol HCl (Labetalol) 10 mg Q4H PRN IV ELEVATED SYSTOLIC BP > 180 Last administered on 08/20/18 16:54; Admin Dose 10 MG; Start 08/14/18 at 19:00 Hydralazine HCl (Apresoline) 20 mg Q2 PRN IV ELEVATED SYSTOLIC BP Last administered on 09/04/18 08:58; Admin Dose 20 MG; Start 08/16/18 at 08:00 Docusate Sodium (Colace Liquid Cup) 100 mg BID GTB Last administered on 09/03/18 20:47; Admin Dose 100 MG; Start 08/18/18 at 09:00 Clopidogrel Bisulfate (plaVIX) 75 mg DAILY NGT Last administered on 09/03/18 09:06; Admin Dose 75 MG; Start 08/18/18 at 13:30 Rifaximin (Xifaxan) 200 mg TID PO Last administered on 09/03/18 20:47; Admin Dose 200 MG; Start 08/19/18 at 13:00 Sevelamer Carbonate (Renvela) 2.4 gm WITH MEALS GTB Last administered on 09/03/18 17:18; Admin Dose 2.4 GM; Start 08/23/18 at 11:30 Ondansetron HCl (Zofran Inj) 4 mg Q4H PRN IV NAUSEA AND/OR VOMITING Last admini stered on 09/02/18 12:57; Admin Dose 4 MG; Start 08/23/18 at 14:30 Lactobacillus Acidophilus/ Rhamnosus (Culturelle) 1 cap TID GTB Last administered on 09/03/18 20:47; Admin Dose 1 CAP; Start 08/24/18 at 13:00 Albumin Human 100 ml @ 100 mls/hr WITH DIALYSIS PRN IV SBP <90 DURING DIALYSIS; Start 08/26/18 at 12:00 Sodium Chloride (NS) -To prime the dialy... DIRECTED FOR HD PRN IV HD; Start 08/26/18 at 12:00 Nitroglycerin (Nitroglycerin 2% Oint) 0.5 inch Q6 PRN TD CHEST PAIN; Start 08/27/18 at 00:30 Lorazepam (Ativan) 1 mg Q4H PRN IV ANXIETY Last administered on 08/27/18 04:14; Admin Dose 1 MG; Start 08/27/18 at 04:30 Eye Lubricant (Artificial Tears Oph) 2 drop Q2H PRN BOTH EYES dry eyes; Start 08/28/18 at 01:30 Heparin Sodium (Porcine) (Heparin (5000 Units/1ml)) 5,000 unit Q8 SC Last a dministered on 09/03/18 23:09; Admin Dose 5,000 UNIT; Start 08/29/18 at 14:00 Epoetin Jarrell-epbx (RETACRIT(esrd)) 10,000 unit MoWeFr@1700 SC Last administered on 09/03/18at 17:17; Admin Dose 10,000 UNIT; Start 08/29/18 at 17:00 Morphine Sulfate (morphine) 3 mg Q1H PRN GTB PAIN NOT RELIEVED BY OTHERS Last administered on 08/30/18at 13:12; Admin Dose 3 MG; Start 08/29/18 at 12:00 Lansoprazole (Prevacid) 30 mg DAILY@06 GTB Last administered on 09/04/18at 05:57; Admin Dose 30 MG; Start 08/30/18 at 06:00 Carvedilol (Coreg) 25 mg TID PO Last administered on 09/03/18at 20:48; Admin Dose 25 MG; Start 08/30/18 at 09:00 Oxycodone HCl (Roxicodone) 5 mg Q4H PRN PO MODERATE PAIN LEVEL 4-6 Last administered on 09/02/18at 13:01; Admin Dose 5 MG; Start 09/01/18 at 10:00 Sodium Chloride 1,000 ml @ 50 mls/hr Q20H IV ; Start 09/04/18 at 10:52; Stop 09/04/18 at 15:51 WIN LUCIANO NP Sep 04, 2018 13:03
--- NOTE | 2018-09-04 13:31 | PN ---
DATE: 09/04/2018 SUBJECTIVE: The patient is stable. No events noted. OBJECTIVE: VITAL SIGNS: Blood pressure is 175/100, respirations 16, pulse 88, temperature 98.3. HEENT: Head is normocephalic. NECK: Supple. HEART: Regular rate. LUNGS: Show diminished breath sounds at the base. ABDOMEN: Soft, nontender to palpation without rebound or guarding. EXTREMITIES: Negative for clubbing, cyanosis. No edema. DERMATOLOGIC: No rashes. MUSCULOSKELETAL: No joint effusion. NEUROLOGIC: No change in exam. MEDICATIONS: Have been reviewed. LABORATORY DATA: Have been reviewed. ASSESSMENT AND PLAN: 1. Anuric acute kidney injury with previously normal baseline creatinine. Etiology of acute kidney injury is secondary to acute tubular necrosis. The patient remains dialysis dependent. Plan for hem odialysis today. 2. Access. We will discuss with Dr. Wilson for possible PermCath placement. 3. Volume overload, improving. Continue ultrafiltration with dialysis. 4. Hypokalemia, resolved. 5. Anemia. Monitor hemoglobin and hematocrit levels. Continue Epogen. 6. Mineral bone disorder. Monitor calcium and phosphatase levels. 7. Ventilator dependent respiratory failure. Vent settings and ABG was reviewed. Continue to monit or. 8. Coronary artery disease. The patient is status post PCI. Anticipate cardiac catheterization tod ay by cardiology. Continue medical management. 9. Acute encephalopathy, improving. 10. Acute cerebrovascular accident. Continue current medical management. 11. Dysphagia. Continue tube feeding. 12. Morbid obesity. 13. Status post septic shock. 14. Status post cardiac arrest. Dictated By: BHUMI REDDY DO NR/NTS Conf#: [id number] DID#: [id number] CC: LAUREN GREWAL MD; HARPAL PEDROZA MD; DANIAL TUCKER MD;*EndCC*
[2018-09-04] MEDS ORDERED: ATROPINE 1 MG/10 ML SYRINGE ONE (13:36)
--- NOTE | 2018-09-04 14:44 | PN ---
Date/Time of Note Date/Time of Note DATE: 09/04/18 TIME: 14:34 Assessment/Plan VTE Prophylaxis Risk score (from Nsg)>0 risk: 12 SCD applied (from Nsg): Yes Pharmacological prophylaxis: other Lines/Catheters IV Catheter Type (from Nrsg): PICC Line Central line still needed: Yes Urinary Cath still in place: Yes Reason Cath still needed: terminal illness/intractable pain Assessment/Plan Assessment/Plan 1. CAD s/p PCI x3 - Cardiology on board and appreciate recommendations. Will need to continue aspirin for life and DAPT for 1 year - s/p emergent Cath 08/05 with successful PTCA and stenting of proximal and mid LAD, PTCA of the large first diagonal and thrombectomy of the LAD - Repeat PCI on 08/07 performed with stenting to LCx - Repeat PCI on 09/04 with stenting ostial/proximal right coronary artery 2. Acute hypoxic respiratory failure - Pulm on board and appreciate recommendations. Will continue trying to wean from vent. Pending placement for vent weaning and decannulation 3. Acute toxic/metabolic encephalopathy- resolved - Patient back to baseline and doing well. - Neurology input appreciated and will reconsult if needed 4. Bilateral CVA - PT/OT on board - Found on MRI, likely thromboembolic secondary to cardiopulmonary arrest per neurology - Continue on aspirin/Plavix and Lipitor 5. Anemia, blood loss and renal disease- stable - Hgb remains stable, transfuse as needed 6. Bilateral Pneumonia - ID on board and appreciate recommendations. Monitor off antibiotics 7. Septic shock secondary to PNA and bacteremia- resolved - Blood cultures and sputum culture results noted. - ID on board 8. Renal failure on HD - Nephrology on board and appreciate recommendations. Continue HD - secondary to septic shock, ATN vs prerenal vs contrast induced nephropathy - will avoid nephrotoxic agents 9. Diabetes - A1c noted - ISS not needed 10. S/p V-fib cardiac arrest secondary to STEMI - Completed hypothermia protocol 11. Disposition - Monitor in ICU today given post PCI. SNF on board for placement Result Diagram: 09/04/18 0514 09/04/18 0514 Results 24hrs Laboratory Tests Test 09/04/18 05:14 09/04/18 09:43 White Blood Count 12.4 H Red Blood Count 2.73 L Hemoglobin 8.0 L Hematocrit 26.2 L Mean Corpuscular Volume 96.0 Mean Corpuscular Hemoglobin 29.3 Mean Corpuscular Hemoglobin Concent 30.5 L Red Cell Distribution Width 17.0 H Platelet Count 195 Mean Platelet Volume 13.3 H Immature Granulocytes % 4.800 H Neutrophils % 64.4 Lymphocytes % 19.5 Monocytes % 7.5 Eosinophils % 2.8 Basophils % 1.0 Nucleated Red Blood Cells % 0.0 Immature Granulocytes # 0.600 H Neutrophils # 8.0 H Lymphocytes # 2.4 Monocytes # 0.9 Eosinophils # 0.4 Basophils # 0.1 Nucleated Red Blood Cells # 0.0 Prothrombin Time 14.2 Prothrombin Time Ratio 1.1 INR International Normalized Ratio 1.09 Sodium Level 136 Potassium Level 4.5 Chloride Level 101 Carbon Dioxide Level 24 Anion Gap 11 Blood Urea Nitrogen 57 H Creatinine 3.49 H Est Glomerular Filtrat Rate mL/min 15 L Glucose Level 98 Calcium Level 9.5 Phosphorus Level 5.4 H Magnesium Level 2.4 Total Bilirubin 0.1 L Direct Bilirubin 0.00 Indirect Bilirubin 0.1 Aspartate Amino Transf (AST/SGOT) 67 H Alanine Aminotransferase (ALT/SGPT) 83 H Alkaline Phosphatase 464 H Creatine Kinase 53 Creatine Kinase Index 22.3 Creatinine Kinase MB (Mass) 11.80 H Troponin I 0.123 *H Total Protein 6.4 Albumin 2.7 L Globulin 3.70 H Albumin/Globulin Ratio 0.72 Lab Scanned Report REFERENCE LAB Subjective 24 Hr Interval Summary Free Text/Dictation Patient went for cardiac cath this am and doing well. No current complaints. Daughter at bedside. Exam/Review of Systems Exam Vitals Vital Signs Date Temp Pulse Resp B/P (MAP) Pulse Ox O2 O2 Flow FiO2 Time Delivery Rate 09/04/18 30 12:00 09/04/18 94 12:00 09/04/18 98.4 16 122/85 99 11:45 (97) 09/02/18 Mechanical 12:00 Ventilator Intake and Output 09/03/18 09/03/18 09/04/18 1515:00 23:00 07:00 IntakeIntake Total 550 ml 400 ml OutputOutput Total 225 ml 100 ml BalanceBalance 325 ml 300 ml Exam General: Patient is laying in bed with tracheostomy. answering questions appropriately Eyes: EOMI, pupils reactive to light Neck: Supple, nontender, midline Respiratory: Coarse to auscultation bilaterally. no wheezing Cardiovascular: regular rate and rhythm, no obvious murmurs Gastrointestinal: soft, non-tender to palpation, bowel sounds heard. PEG in place Neurological: Able to follow commands and move all extremities Skin: No new skin lesions Results Results 24hrs Laboratory Tests Test 09/04/18 05:14 09/04/18 09:43 White Blood Count 12.4 H Red Blood Count 2.73 L Hemoglobin 8.0 L Hematocrit 26.2 L Mean Corpuscular Volume 96.0 Mean Corpuscular Hemoglobin 29.3 Mean Corpuscular Hemoglobin Concent 30.5 L Red Cell Distribution Width 17.0 H Platelet Count 195 Mean Platelet Volume 13.3 H Immature Granulocytes % 4.800 H Neutrophils % 64.4 Lymphocytes % 19.5 Monocytes % 7.5 Eosinophils % 2.8 Basophils % 1.0 Nucleated Red Blood Cells % 0.0 Immature Granulocytes # 0.600 H Neutrophils # 8.0 H Lymphocytes # 2.4 Monocytes # 0.9 Eosinophils # 0.4 Basophils # 0.1 Nucleated Red Blood Cells # 0.0 Prothrombin Time 14.2 Prothrombin Time Ratio 1.1 INR International Normalized Ratio 1.09 Sodium Level 136 Potassium Level 4.5 Chloride Level 101 Carbon Dioxide Level 24 Anion Gap 11 Blood Urea Nitrogen 57 H Creatinine 3.49 H Est Glomerular Filtrat Rate mL/min 15 L Glucose Level 98 Calcium Level 9.5 Phosphorus Level 5.4 H Magnesium Level 2.4 Total Bilirubin 0.1 L Direct Bilirubin 0.00 Indirect Bilirubin 0.1 Aspartate Amino Transf (AST/SGOT) 67 H Alanine Aminotransferase (ALT/SGPT) 83 H Alkaline Phosphatase 464 H Creatine Kinase 53 Creatine Kinase Index 22.3 Creatinine Kinase MB (Mass) 11.80 H Troponin I 0.123 *H Total Protein 6.4 Albumin 2.7 L Globulin 3.70 H Albumin/Globulin Ratio 0.72 Lab Scanned Report REFERENCE LAB Medications Medication Current Medications Atorvastatin Calcium (Lipitor) 80 mg DAILY@21 PO Last administered on 09/03/18at 20:47; Admin Dose 80 MG; Start 08/05/18 at 21:00 Miscellaneous Information 1 ea NOTE XX ; Start 08/05/18 at 09:00 Acetaminophen (Tylenol Liquid) 650 mg Q4H PRN PO ELEVATED TEMPERATURE Last administered on 09/01/18at 00:29; Admin Dose 650 MG; Start 08/05/18 at 11:00; Status Hold Miscellaneous Information (* Miscellaneous Pharmacy Order) Treatment of Hypoglycemia: 1.BG 51... Per protocol XX ; Start 08/05/18 at 12:00 Dextrose (D50w Syringe) 25 ml Q15M PRN IV .DECREASED GLUCOSE; Start 08/05/18 at 12:00 Dextrose (D50w Syringe) 50 ml Q15M PRN IV .DECREASED GLUCOSE; Start 08/05/18 at 12:00 Aspirin (Aspirin) 81 mg DAILY NGT Last administered on 09/03/18 09:06; Admin Dose 81 MG; Start 08/06/18 at 09:00 Multivitamins (Multivitamin) 30 ml DAILY NGT Last administered on 09/03/18 09: 06; Admin Dose 30 ML; Start 08/09/18 at 09:00 Zinc Sulfate (Zinc Sulfate) 220 mg DAILY NGT Last administered on 09/03/18 09:06; Admin Dose 220 MG; Start 08/09/18 at 09:00 Folic Acid (Folic Acid) 1 mg DAILY NGT Last administered on 09/03/18 09:06; Admin Dose 1 MG; Start 08/09/18 at 09:00 Ascorbic Acid (Vitamin C) 500 mg DAILY NGT Last administered on 09/03/18 09:06; Admin Dose 500 MG; Start 08/09/18 at 09:00 Albuterol (Ventolin Hfa) 4 puff Q6HWA RESP THERAPY INH Last administered on 09/04/18 14:02; Admin Dose 4 PUFF; Start 08/09/18 at 14:00 Ipratropium [place] (Atrovent Hfa) 4 puff Q6H RESP THERAPY INH Last administered on 09/04/18 14:23; Admin Dose 4 PUFF; Start 08/09/18 at 14:00 IV Flush (NS 10 ml) 10 ml PRN PRN IV IV PROTOCOL; Start 08/11/18 at 16:30 Heparin Sodium (Porcine) (Heparin (1000 Units/ml)) 3,000 unit PRN PRN CATHETER Dialysis Last administered on 08/31/18 12:16; Admin Dose 3,000 UNIT; Start 08/12/18 at 14:30 Labetalol HCl (Labetalol) 10 mg Q4H PRN IV ELEVATED SYSTOLIC BP > 180 Last administered on 08/20/18 16:54; Admin Dose 10 MG; Start 08/14/18 at 19:00 Hydralazine HCl (Apresoline) 20 mg Q2 PRN IV ELEVATED SYSTOLIC BP Last administered on 09/04/18 08:58; Admin Dose 20 MG; Start 08/16/18 at 08:00 Docusate Sodium (Colace Liquid Cup) 100 mg BID GTB Last administered on 09/03/18at 20:47; Admin Dose 100 MG; Start 08/18/18 at 09:00 Clopidogrel Bisulfate (plaVIX) 75 mg DAILY NGT Last administered on 09/03/18 09:06; Admin Dose 75 MG; Start 08/18/18 at 13:30 Rifaximin (Xifaxan) 200 mg TID PO Last administered on 09/04/18 13:22; Admin Dose 200 MG; Start 08/19/18 at 13:00 Sevelamer Carbonate (Renvela) 2.4 gm WITH MEALS GTB Last administered on 17:18; Admin Dose 2.4 GM; Start 08/23/18 at 11:30 Ondansetron HCl (Zofran Inj) 4 mg Q4H PRN IV NAUSEA AND/OR VOMITING Last administered on 09/02/18at 12:57; Admin Dose 4 MG; Start 08/23/18 at 14:30 Lactobacillus Acidophilus/ Rhamnosus (Culturelle) 1 cap TID GTB Last administered on 09/04/18at 13:22; Admin Dose 1 CAP; Start 08/24/18 at 13:00 Albumin Human 100 ml @ 100 mls/hr WITH DIALYSIS PRN IV SBP <90 DURING DIALYSIS; Start 08/26/18 at 12:00 Sodium Chloride (NS) -To prime the dialy... DIRECTED FOR HD PRN IV HD; Start 08/26/18 at 12:00 Nitroglycerin (Nitroglycerin 2% Oint) 0.5 inch Q6 PRN TD CHEST PAIN; Start 08/27/18 at 00:30 Lorazepam (Ativan) 1 mg Q4H PRN IV ANXIETY Last administered on 08/27/18at 04:14; Admin Dose 1 MG; Start 08/27/18 at 04:30 Eye Lubricant (Artificial Tears Oph) 2 drop Q2H PRN BOTH EYES dry eyes; Start 08/28/18 at 01:30 Heparin Sodium (Porcine) (Heparin (5000 Units/1ml)) 5,000 unit Q8 SC Last administered on 09/04/18at 13:52; Admin Dose 5,000 UNIT; Start 08/29/18 at 14:00 Epoetin Jarrell-epbx (RETACRIT(esrd)) 10,000 unit MoWeFr@1700 SC Last administered on 09/03/18at 17:17; Admin Dose 10,000 UNIT; Start 08/29/18 at 17:00 Morphine Sulfate (morphine) 3 mg Q1H PRN GTB PAIN NOT RELIEVED BY OTHERS Last administered on 08/30/18at 13:12; Admin Dose 3 MG; Start 08/29/18 at 12:00 Lansoprazole (Prevacid) 30 mg DAILY@06 GTB Last administered on 09/04/18at 05:57; Admin Dose 30 MG; Start 08/30/18 at 06:00 Carvedilol (Coreg) 25 mg TID PO Last administered on 09/04/18at 13:23; Admin Dose 25 MG; Start 08/30/18 at 09:00 Oxycodone HCl (Roxicodone) 5 mg Q4H PRN PO MODERATE PAIN LEVEL 4-6 Last administered on 09/02/18at 13:01; Admin Dose 5 MG; Start 09/01/18 at 10:00 Sodium Chloride 1,000 ml @ 50 mls/hr Q20H IV ; Start 09/04/18 at 10:52; Stop 09/04/18 at 15:51 THOMAS RILEY MD Sep 04, 2018 14:44
--- NOTE | 2018-09-04 17:32 | RADRPT ---
Vent Rate: 100 bpm RR Interval: 600 msec DC Interval: 130 msec QRS Duration: 97 msec QT Interval: 325 msec QTC Interval: 420 msec P-R-T Josephine: 55 - 30 - 155 degrees Sinus tachycardia...rate> 99 Abnormal T, consider ischemia, lateral leads...T <-0.20mV, I aVL V5 V6 Electronically Signed By: Mamadou Medrano
--- NOTE | 2018-09-04 17:42 | CONS ---
Consult Date/Type/Reason Admit Date/Time Aug 04, 2018 at 23:10 Initial Consult Date 08/05/18 Type of Consultation: cv Requesting Provider: HARPAL AGGARWAL MD Date/Time of Note DATE: 09/04/18 TIME: 17:38 Subjective Interventional cardiology follow-up progress note Subjective: Events noted discussed with the staff Patient remains on the vent s/p trach . TELE was reviewed. No V tachycardia or V fibrillation. BP is stable now pt with no more bleeding at PEG or trach sites. she denies any cp to me now pt had no more issues with trach last night NO Groin pain or bleeding events noted s/p PCI 100% occluded LAD 08/04 S/P PCI LCX/ OM s/p trach 08/22/18 PCI RCA 09/04/18 Objective: General: Obese female no acute distress HEENT: NC/AT. pupils are equal. round. NECK: . no stridor. s/p trach CV: RRR. systolic murmur; no gallop or rubs. PULM: no wheezing + diffuse rhonchi. GI: Obese SOFT, NT, ND, no rebound or guarding s/pPEG Extremity: +B/L LE edema. no clubbing. neuro: awake and follows commands Psych: Calm now rectal: deferred EKG August 06, 2018 was personally within normal sinus rhythm. T wave inversions anterior and inferior leads ECG 08/07: NSR ST T abn c/w ant/lat ischemia CXR 08/14: Nonspecific patchy bilateral pulmonary opacity, mildly improved on the right. No pneumothorax. Endotracheal tube, nasogastric tube, and right-sided PICC line remain in place. Stable mild cardiomegaly. The osseous structures are mihai rkable for degenerative enthesopathy of the spine. Chest x-ray done August 06 shows:No evidence for active cardiopulmonary disease. CXR 08/19: Diffuse bilateral reticular nodular infiltrates unchanged. Question bronchopneumonia versus failure. CXR 08/28/18: Allowing for support structures overlying the right base, no significant change. Left mid and bibasilar air space opacities/infiltrates are again present. Lines and tubes are stable ECHO personally reviewed Normal left ventricular cavity size. Normal left ventricular wall thickness. Ejection fraction is visually estimated at 55-65 %. Normal appearance of the mitral valve. Mitral valve is not well visualized. No mitral valve regurgitation is seen. Aortic valve not well visualized. No aortic regurgitation. Normal appearance of the tricuspid valve. Unable to obtain RVSP due to minimal presence of tricuspid regurgitation. No evidence of tricuspid regurgitation. Normal pericardium with no significant pericardial effusion. suboptimal study. Objective Vitals Vital Signs Date Temp Pulse Resp B/P (MAP) Pulse Ox O2 O2 Flow FiO2 Time Delivery Rate 09/04/18 79 16:00 09/04/18 97.6 23 98/72 (81) 99 Mechanical 16:00 Ventilator 09/04/18 30 12:00 Intake and Output 09/03/18 09/03/18 09/04/18 1515:00 23:00 07:00 IntakeIntake Total 550 ml 400 ml OutputOutput Total 225 ml 100 ml BalanceBalance 325 ml 300 ml Results/Medications Result Diagram: 09/04/18 0514 09/04/18 0514 Results 24 hrs Laboratory Tests Test 09/04/18 05:14 09/04/18 09:43 White Blood Count 12.4 H Red Blood Count 2.73 L Hemoglobin 8.0 L Hematocrit 26.2 L Mean Corpuscular Volume 96.0 Mean Corpuscular Hemoglobin 29.3 Mean Corpuscular Hemoglobin Concent 30.5 L Red Cell Distribution Width 17.0 H Platelet Count 195 Mean Platelet Volume 13.3 H Immature Granulocytes % 4.800 H Neutrophils % 64.4 Lymphocytes % 19.5 Monocytes % 7.5 Eosinophils % 2.8 Basophils % 1.0 Nucleated Red Blood Cells % 0.0 Immature Granulocytes # 0.600 H Neutrophils # 8.0 H Lymphocytes # 2.4 Monocytes # 0.9 Eosinophils # 0.4 Basophils # 0.1 Nucleated Red Blood Cells # 0.0 Prothrombin Time 14.2 Prothrombin Time Ratio 1.1 INR International Normalized Ratio 1.09 Sodium Level 136 Potassium Level 4.5 Chloride Level 101 Carbon Dioxide Level 24 Anion Gap 11 Blood Urea Nitrogen 57 H Creatinine 3.49 H Est Glomerular Filtrat Rate mL/min 15 L Glucose Level 98 Calcium Level 9.5 Phosphorus Level 5.4 H Magnesium Level 2.4 Total Bilirubin 0.1 L Direct Bilirubin 0.00 Indirect Bilirubin 0.1 Aspartate Amino Transf (AST/SGOT) 67 H Alanine Aminotransferase (ALT/SGPT) 83 H Alkaline Phosphatase 464 H Creatine Kinase 53 Creatine Kinase Index 22.3 Creatinine Kinase MB (Mass) 11.80 H Troponin I 0.123 *H Total Protein 6.4 Albumin 2.7 L Globulin 3.70 H Albumin/Globulin Ratio 0.72 Lab Scanned Report REFERENCE LAB Medications Current Medications Atorvastatin Calcium (Lipitor) 80 mg DAILY@21 PO Last administered on 09/03/18at 20:47; Admin Dose 80 MG; Start 08/05/18 at 21:00 Miscellaneous Information 1 ea NOTE XX ; Start 08/05/18 at 09:00 Acetaminophen (Tylenol Liquid) 650 mg Q4H PRN PO ELEVATED TEMPERATURE Last administered on 09/01/18 00:29; Admin Dose 650 MG; Start 08/05/18 at 11:00; Status Hold Miscellaneous Information (* Miscellaneous Pharmacy Order) Treatment of Hypoglycemia: 1.BG 51... Per protocol XX ; Start 08/05/18 at 12:00 Dextrose (D50w Syringe) 25 ml Q15M PRN IV .DECREASED GLUCOSE; Start 08/05/18 at 12:00 Dextrose (D50w Syringe) 50 ml Q15M PRN IV .DECREASED GLUCOSE; Start 08/05/18 at 12:00 Aspirin (Aspirin) 81 mg DAILY NGT Last administered on 09/03/18 09:06; Admin Dose 81 MG; Start 08/06/18 at 09:00 Multivitamins (Multivitamin) 30 ml DAILY NGT Last administered on 09/03/18 09:06; Admin Dose 30 ML; Start 08/09/18 at 09:00 Zinc Sulfate (Zinc Sulfate) 220 mg DAILY NGT Last administered on 09/03/18 09:06; Admin Dose 220 MG; Start 08/09/18 at 09:00 Folic Acid (Folic Acid) 1 mg DAILY NGT Last administered on 09/03/18 09:06; Admin Dose 1 MG; Start 08/09/18 at 09:00 Ascorbic Acid (Vitamin C) 500 mg DAILY NGT Last administered on 09/03/18 09:06; Admin Dose 500 MG; Start 08/09/18 at 09:00 Albuterol (Ventolin Hfa) 4 puff Q6HWA RESP THERAPY INH Last administered on 09/04/18 14:02; Admin Dose 4 PUFF; Start 08/09/18 at 14:00 Ipratropium [place] (Atrovent Hfa) 4 puff Q6H RESP THERAPY INH Last administered on 09/04/18 14:23; Admin Dose 4 PUFF; Start 08/09/18 at 14:00 IV Flush (NS 10 ml) 10 ml PRN PRN IV IV PROTOCOL; Start 08/11/18 at 16:30 Heparin Sodium (Porcine) (Heparin (1000 Units/ml)) 3,000 unit PRN PRN CATHETER Dialysis Last administered on 08/31/18 12:16; Admin Dose 3,000 UNIT; Start 08/12/18 at 14:30 Labetalol HCl (Labetalol) 10 mg Q4H PRN IV ELEVATED SYSTOLIC BP > 180 Last administered on 08/20/18 16:54; Admin Dose 10 MG; Start 08/14/18 at 19:00 Hydralazine HCl (Apresoline) 20 mg Q2 PRN IV ELEVATED SYSTOLIC BP Last administered on 09/04/18 08:58; Admin Dose 20 MG; Start 08/16/18 at 08:00 Docusate Sodium (Colace Liquid Cup) 100 mg BID GTB Last administered on 09/03/18 20:47; Admin Dose 100 MG; Start 08/18/18 at 09:00 Clopidogrel Bisulfate (plaVIX) 75 mg DAILY NGT Last administered on 09/03/18 09:06; Admin Dose 75 MG; Start 08/18/18 at 13:30 Rifaximin (Xifaxan) 200 mg TID PO Last administered on 09/04/18 13:22; Admin Dose 200 MG; Start 08/19/18 at 13:00 Sevelamer Carbonate (Renvela) 2.4 gm WITH MEALS GTB Last administered on 09/04/18 16:37; Admin Dose 2.4 GM; Start 08/23/18 at 11:30 Ondansetron HCl (Zofran Inj) 4 mg Q4H PRN IV NAUSEA AND/OR VOMITING Last administered on 09/02/18 12:57; Admin Dose 4 MG; Start 08/23/18 at 14:30 Lactobacillus Acidophilus/ Rhamnosus (Culturelle) 1 cap TID GTB Last administered on 09/04/18 13:22; Admin Dose 1 CAP; Start 08/24/18 at 13:00 Albumin Human 100 ml @ 100 mls/hr WITH DIALYSIS PRN IV SBP <90 DURING DIALYSIS; Start 08/26/18 at 12:00 Sodium Chloride (NS) -To prime the dialy... DIRECTED FOR HD PRN IV HD; Start 08/26/18 at 12:00 Nitroglycerin (Nitroglycerin 2% Oint) 0.5 inch Q6 PRN TD CHEST PAIN; Start 08/27/18 at 00:30 Lorazepam (Ativan) 1 mg Q4H PRN IV ANXIETY Last administered on 08/27/18at 04:14; Admin Dose 1 MG; Start 08/27/18 at 04:30 Eye Lubricant (Artificial Tears Oph) 2 drop Q2H PRN BOTH EYES dry eyes; Start 08/28/18 at 01:30 Heparin Sodium (Porcine) (Heparin (5000 Units/1ml)) 5,000 unit Q8 SC Last administered on 09/04/18at 13:52; Admin Dose 5,000 UNIT; Start 08/29/18 at 14:00 Epoetin Jarrell-epbx (RETACRIT(esrd)) 10,000 unit MoWeFr@1700 SC Last administered on 09/03/18at 17:17; Admin Dose 10,000 UNIT; Start 08/29/18 at 17:00 Morphine Sulfate (morphine) 3 mg Q1H PRN GTB PAIN NOT RELIEVED BY OTHERS Last administered on 08/30/18at 13:12; Admin Dose 3 MG; Start 08/29/18 at 12:00 Lansoprazole (Prevacid) 30 mg DAILY@06 GTB Last administered on 09/04/18at 05:57; Admin Dose 30 MG; Start 08/30/18 at 06:00 Carvedilol (Coreg) 25 mg TID PO Last administered on 09/04/18at 13:23; Admin Dose 25 MG; Start 08/30/18 at 09:00 Oxycodone HCl (Roxicodone) 5 mg Q4H PRN PO MODERATE PAIN LEVEL 4-6 Last administered on 09/02/18at 13:01; Admin Dose 5 MG; Start 09/01/18 at 10:00 Assessment/Plan Hospital Course (Demo Recall) 1. s/p V. fib cardiac arrest 2. Acute myocardial infarction 3. Status post emergent PCI of the 100% occluded LAD as well as PTCA of the diagonal and PCI LCX/ OM , sp PCI RCA 09/04 4. Diabetes 5. Respiratory failure status post intubation on the vent 6. Hypertension 7. Renal failure : acute on chronic 8. Likely history of congestive heart failure 9. Dyslipidemia 10. Encephalopathy: Clear anoxic brain injury on hypothermia protocol 11. Morbid obesity 12. Anemia 13. elevated LFT 14. fever, bacteremia pneumonia 15. Malnutrition, anasarca . 16. septic shock and staph aureus bacteremia 17. oropharyngeal bleeding 18. CVA Recommendations: Continue with aspirin plavix Antibiotic management as per ID recommendation. on Vanco HD as per renal Vent support respiratory care as per internal medicine and pulmonary co nsultants. s/p Trach now inc Coreg as tolerated/needed Monitor renal function. f/u renal consult rec regarding hemodialysis PPI . Transfusion prn given her severe anemia and LA/ VF ok to transfer to tele after 6 hours if no bleeding or vascular issues hep SQ for DVT prophylaxis CODE STATUS full code Thank you for his referral. We will continue to follow along with you LOIS JOHNSON MD [facility] LOIS JOHNSON MD Sep 04, 2018 17:42
[2018-09-04] MEDS ORDERED: ETOMIDATE 20 MG INJ ONE (20:06)
[2018-09-04] MEDS ORDERED: PHENYLephrine (100 MCG/ML) 10ML SYG ONE (20:09)
[2018-09-04] MEDS: ATORVASTATIN 80 MG TAB PO SCH (21:06)
[2018-09-04] MEDS ORDERED: ROCURONIUM 50 MG INJ ONE (21:07)
[2018-09-04] MEDS ORDERED: SUGAMMADEX SODIUM 200 MG/2 ML VIAL IV ONE (21:07)
[2018-09-05] VITALS (34 sets, daily range): BP systolic 116–146; BP diastolic 70–93; PULSE 89–104; RESP 16–28
[2018-09-05] MEDS: IPRATROPIUM (HFA) 12.9 GM INHALER INH SCH ×4 (01:25→19:11)
[2018-09-05] MEDS: LANSOPRAZOLE 30 MG CAP GTB SCH (05:56)
[2018-09-05] MEDS: HEPARIN 5,000 UNIT/1 ML VIAL SC SCH ×3 (06:06→23:18)
[2018-09-05] MEDS: ALBUTEROL HFA 8 GM INHALER INH SCH ×3 (07:58→19:11)
[2018-09-05] MEDS: CLOPIDOGREL 75 MG TAB NGT SCH (08:51)
[2018-09-05] MEDS: MULTIVITAMINS 30 ML CUP NGT SCH (08:51)
[2018-09-05] MEDS: SEVELAMER CARBONATE 2.4 GM PKT GTB SCH ×3 (08:51→17:14)
[2018-09-05] MEDS: DOCUSATE SODIUM 10 MG/ML (10ML CUP) GTB SCH ×2 (08:51→08:59)
[2018-09-05] MEDS: RIFAXIMIN 200 MG TAB PO SCH ×3 (08:51→20:28)
[2018-09-05] MEDS: FOLIC ACID 1 MG TAB NGT SCH (08:52)
[2018-09-05] MEDS: ASPIRIN 81 MG TAB NGT SCH (08:52)
[2018-09-05] MEDS: ZINC SULFATE 220 MG CAP NGT SCH (08:52)
[2018-09-05] MEDS: LACTOBACILLUS RHAMNOSUS CAP GTB SCH ×3 (08:52→20:28)
[2018-09-05] MEDS: ASCORBIC ACID 500 MG TAB NGT SCH (08:52)
--- NOTE | 2018-09-05 08:52 | CONS ---
Consult Date/Type/Reason Admit Date/Time Aug 04, 2018 at 23:10 Initial Consult Date 08/05/18 Type of Consultation: cv Requesting Provider: HARPAL AGGARWAL MD Date/Time of Note DATE: 09/05/18 TIME: 08:51 Subjective Interventional cardiology follow-up progress note Subjective: Events noted discussed with the staff and tele was reviewed. Patient remains on the vent s/p trach . TELE was reviewed. No V tachycardia or V fibrillation. BP is stable now pt with no more bleeding at PEG or trach sites. she denies any cp to me now pt had no more issues with trach last night NO Groin pain or bleeding events noted s/p PCI 100% occluded LAD 08/04 S/P PCI LCX/ OM s/p trach 08/22/18 PCI RCA 09/04/18 Objective: General: Obese female no acute distress HEENT: NC/AT. pupils are equal. round. NECK: . no stridor. s/p trach CV: RRR. systolic murmur; no gallop or rubs. PULM: no wheezing + diffuse rhonchi. GI: Obese SOFT, NT, ND, no rebound or guarding s/pPEG Extremity: +B/L LE edema. no clubbing. neuro: awake and follows commands Psych: Calm now rectal: deferred vascular L femoral no bleeding or hematoma EKG August 06, 2018 was personally within normal sinus rhythm. T wave inversions anterior and inferior leads ECG 08/07: NSR ST T abn c/w ant/lat ischemia CXR 08/14: Nonspecific patchy bilateral pulmonary opacity, mildly improved on the right. No pneumothorax. Endotracheal tube, nasogastric tube, and right-sided PICC line remain in place. Stable mild cardiomegaly. The osseous structures are remarkable for degenerative enthesopathy of the spine. Chest x-ray done August 06 shows:No evidence for active cardiopulmonary disease. CXR 08/19: Diffuse bilateral reticular nodular infiltrates unchanged. Question bronchopneumonia versus failure. CXR 08/28/18: Allowing for support structures overlying the right base, no significant change. Left mid and bibasilar air space opacities/infiltrates are again present. Lines and tubes are stable ECHO personally reviewed Normal left ventricular cavity size. Normal left ventricular wall thickness. Ejection fraction is visually estimated at 55-65 %. Normal appearance of the mitral valve. Mitral valve is not well visualized. No mitral valve regurgitation is seen. Aortic valve not well visualized. No aortic regurgitation. Normal appearance of the tricuspid valve. Unable to obtain RVSP due to minimal presence of tricuspid regurgitation. No evidence of tricuspid regurgitation. Normal pericardium with no significant pericardial effusion. suboptimal study. Objective Vitals Vital Signs Date Temp Pulse Resp B/P (MAP) Pulse Ox O2 O2 Flow FiO2 Time Delivery Rate 09/05/18 96 08:17 09/05/18 18 99 30 07:55 09/05/18 98.8 134/84 Trach 07:33 (101) Collar Intake and Output 09/04/18 09/04/18 09/05/18 1515:00 23:00 07:00 IntakeIntake Total 0 ml 0 ml 410 ml OutputOutput Total 310 ml 5 ml 200 ml BalanceBalance -310 ml -5 ml 210 ml Results/Medications Result Diagram: 09/05/18 0604 09/05/18 0604 Results 24 hrs Laboratory Tests Test 09/04/18 09:43 09/05/18 06:04 Lab Scanned Report REFERENCE LAB White Blood Count 12.0 H Red Blood Count 2.84 L Hemoglobin 8.3 L Hematocrit 27.2 L Mean Corpuscular Volume 95.8 Mean Corpuscular Hemoglobin 29.2 Mean Corpuscular Hemoglobin Concent 30.5 L Red Cell Distribution Width 17.3 H Platelet Count 203 Mean Platelet Volume 13.0 H Immature Granulocytes % 4.100 H Neutrophils % 67.0 Lymphocytes % 17.4 Monocytes % 8.5 Eosinophils % 2.1 Basophils % 0.9 Nucleated Red Blood Cells % 0.0 Immature Granulocytes # 0.490 H Neutrophils # 8.0 H Lymphocytes # 2.1 Monocytes # 1.0 H Eosinophils # 0.3 Basophils # 0.1 Nucleated Red Blood Cells # 0.0 Sodium Level 135 Potassium Level 4.0 Chloride Level 99 Carbon Dioxide Level 23 Anion Gap 13 Blood Urea Nitrogen 70 H Creatinine 4.49 #H Glucose Level 110 Calcium Level 10.0 Phosphorus Level 7.5 #H Magnesium Level 2.6 H Albumin 3.2 L Medications Current Medications Atorvastatin Calcium (Lipitor) 80 mg DAILY@21 PO Last administered on 09/04/18at 21:06; Admin Dose 80 MG; Start 08/05/18 at 21:00 Miscellaneous Information 1 ea NOTE XX ; Start 08/05/18 at 09:00 Acetaminophen (Tylenol Liquid) 650 mg Q4H PRN PO ELEVATED TEMPERATURE Last administered on 09/01/18 00:29; Admin Dose 650 MG; Start 08/05/18 at 11:00; Status Hold Miscellaneous Information (* Miscellaneous Pharmacy Order) Treatment of Hypoglycemia: 1.BG 51... Per protocol XX ; Start 08/05/18 at 12:00 Dextrose (D50w Syringe) 25 ml Q15M PRN IV .DECREASED GLUCOSE; Start 08/05/18 at 12:00 Dextrose (D50w Syringe) 50 ml Q15M PRN IV .DECREASED GLUCOSE; Start 08/05/18 at 12:00 Aspirin (Aspirin) 81 mg DAILY NGT Last administered on 09/03/18 09:06; Admin Dose 81 MG; Start 08/06/18 at 09:00 Multivitamins (Multivitamin) 30 ml DAILY NGT Last administered on 09/03/18 09:06; Admin Dose 30 ML; Start 08/09/18 at 09:00 Zinc Sulfate (Zinc Sulfate) 220 mg DAILY NGT Last administered on 09/03/18 09:06; Admin Dose 220 MG; Start 08/09/18 at 09:00 Folic Acid (Folic Acid) 1 mg DAILY NGT Last administered on 09/03/18 09:06; Admin Dose 1 MG; Start 08/09/18 at 09:00 Ascorbic Acid (Vitamin C) 500 mg DAILY NGT Last administered on 09/03/18 09:06; Admin Dose 500 MG; Start 08/09/18 at 09:00 Albuterol (Ventolin Hfa) 4 puff Q6HWA RESP THERAPY INH Last administered on 09/05/18 07:58; Admin Dose 4 PUFF; Start 08/09/18 at 14:00 Ipratropium [place] (Atrovent Hfa) 4 puff Q6H RESP THERAPY INH Last administered on 09/05/18 07:58; Admin Dose 4 PUFF; Start 08/09/18 at 14:00 IV Flush (NS 10 ml) 10 ml PRN PRN IV IV PROTOCOL; Start 08/11/18 at 16:30 Heparin Sodium (Porcine) (Heparin (1000 Units/ml)) 3,000 unit PRN PRN CATHETER Dialysis Last administered on 08/31/18 12:16; Admin Dose 3,000 UNIT; Start 08/12/18 at 14:30 Labetalol HCl (Labetalol) 10 mg Q4H PRN IV ELEVATED SYSTOLIC BP > 180 Last administered on 08/20/18 16:54; Admin Dose 10 MG; Start 08/14/18 at 19:00 Hydralazine HCl (Apresoline) 20 mg Q2 PRN IV ELEVATED SYSTOLIC BP Last administered on 09/04/18 08:58; Admin Dose 20 MG; Start 08/16/18 at 08:00 Docusate Sodium (Colace Liquid Cup) 100 mg BID GTB Last administered on 09/04/18 21:06; Admin Dose 100 MG; Start 08/18/18 at 09:00 Clopidogrel Bisulfate (plaVIX) 75 mg DAILY NGT Last administered on 09/03/18 09:06; Admin Dose 75 MG; Start 08/18/18 at 13:30 Rifaximin (Xifaxan) 200 mg TID PO Last administered on 09/04/18 21:06; Admin D ose 200 MG; Start 08/19/18 at 13:00 Sevelamer Carbonate (Renvela) 2.4 gm WITH MEALS GTB Last administered on 09/04/18 16:37; Admin Dose 2.4 GM; Start 08/23/18 at 11:30 Ondansetron HCl (Zofran Inj) 4 mg Q4H PRN IV NAUSEA AND/OR VOMITING Last administered on 09/02/18 12:57; Admin Dose 4 MG; Start 08/23/18 at 14:30 Lactobacillus Acidophilus/ Rhamnosus (Culturelle) 1 cap TID GTB Last administered on 09/04/18 21:06; Admin Dose 1 CAP; Start 08/24/18 at 13:00 Albumin Human 100 ml @ 100 mls/hr WITH DIALYSIS PRN IV SBP <90 DURING DIALYSIS; Start 08/26/18 at 12:00 Sodium Chloride (NS) -To prime the dialy... DIRECTED FOR HD PRN IV HD; Start 08/26/18 at 12:00 Nitroglycerin (Nitroglycerin 2% Oint) 0.5 inch Q6 PRN TD CHEST PAIN; Start 08/27/18 at 00:30 Lorazepam (Ativan) 1 mg Q4H PRN IV ANXIETY Last administered on 08/27/18at 04:14; Admin Dose 1 MG; Start 08/27/18 at 04:30 Eye Lubricant (Artificial Tears Oph) 2 drop Q2H PRN BOTH EYES dry eyes; Start 08/28/18 at 01:30 Heparin Sodium (Porcine) (Heparin (5000 Units/1ml)) 5,000 unit Q8 SC Last administered on 09/05/18at 06:06; Admin Dose 5,000 UNIT; Start 08/29/18 at 14:00 Epoetin Jarrell-epbx (RETACRIT(esrd)) 10,000 unit MoWeFr@1700 SC Last administered on 09/03/18at 17:17; Admin Dose 10,000 UNIT; Start 08/29/18 at 17:00 Morphine Sulfate (morphine) 3 mg Q1H PRN GTB PAIN NOT RELIEVED BY OTHERS Last administered on 08/30/18at 13:12; Admin Dose 3 MG; Start 08/29/18 at 12:00 Lansoprazole (Prevacid) 30 mg DAILY@06 GTB Last administered on 09/05/18at 05:56; Admin Dose 30 MG; Start 08/30/18 at 06:00 Carvedilol (Coreg) 25 mg TID PO Last administered on 09/04/18at 13:23; Admin Dose 25 MG; Start 08/30/18 at 09:00 Oxycodone HCl (Roxicodone) 5 mg Q4H PRN PO MODERATE PAIN LEVEL 4-6 Last administered on 09/02/18at 13:01; Admin Dose 5 MG; Start 09/01/18 at 10:00 Assessment/Plan Hospital Course (Demo Recall) 1. s/p V. fib cardiac arrest 2. Acute myocardial infarction 3. Status post emergent PCI of the 100% occluded LAD as well as PTCA of the diagonal and PCI LCX/ OM , sp PCI RCA 09/04 4. Diabetes 5. Respiratory failure status post intubation on the vent 6. Hypertension 7. Renal failure : acute on chronic 8. Likely history of congestive heart failure 9. Dyslipidemia 10. Encephalopathy: Clear anoxic brain injury on hypothermia protocol 11. Morbid obesity 12. Anemia 13. elevated LFT 14. fever, bacteremia pneumonia 15. Malnutrition, anasarca . 16. septic shock and staph aureus bacteremia 17. oropharyngeal bleeding 18. CVA Recommendations: Continue with aspirin/ plavix Antibiotic management as per ID recommendation HD as per renal Vent support respiratory care as per internal medicine and pulmonary consultants. s/p Trach now. weaning as tolerated. cont Coreg as tolerated/needed Transfusion prn given her severe anemia and CO/ VF tele monitoring DVT prophylaxis CODE STATUS full code Thank you for his referral. We will continue to follow along with you LOIS JOHNSON MD [facility] LOIS JOHNSON MD Sep 05, 2018 08:52
--- NOTE | 2018-09-05 09:02 | PN ---
DATE: 09/05/2018 SUBJECTIVE: The patient yesterday had a cardiac catheterization without any complications. No other events noted. OBJECTIVE: VITAL SIGNS: Blood pressure is 134/84, respirations 24, pulse 97, temperature 98.8. HEENT: Head is normocephalic. NECK: Supple. HEART: Regular rate. LUNGS: Show diminished breath sounds at the base. ABDOMEN: Soft, nontender to palpation without rebound or guarding. EXTREMITIES: Negative for clubbing, cyanosis, no edema. DERMATOLOGIC: No rashes. MUSCULOSKELETAL: No joint effusion. NEUROLOGIC: No change in exam. MEDICATIONS: Reviewed. LABORATORY DATA: From 09/05/2018, was reviewed. ASSESSMENT AND PLAN: 1. Anuric acute kidney injury with previously normal baseline creatinine. The patient is currently dialysis dependent, no signs of renal recovery. Anticipate hemodialysis today. 2. Access. I discussed the case with Dr. Wilson. The patient will need a Perm-A-Cath placement. We will follow up with Dr. Wilson. 3. Volume overload, improving. Continue ultrafiltration with dialysis. 4. Hypokalemia, resolved. 5. Anemia. Continue to monitor hemoglobin and hematocrit levels. Continue Epogen. 6. Mineral bone disorder. Continue to monitor calcium and phosphorus levels. 7. Ventilatory dependent respiratory failure. Vent settings and ABG was reviewed. Continue to [facility]. 8. Coronary artery disease, status post percutaneous coronary intervention to the drug-eluting stent to the right coronary artery. Continue medical management. Follow up with Cardiology. 9. Acute cerebrovascular accident. Continue current treatment plan. 10. Dysphagia. Continue tube feeding. 11. Acute encephalopathy, improving. 12. Morbid obesity. 13. Status post septic shock. 14. Status post cardiac arrest. Dictated By: BHUMI REDDY DO NR/NTS Conf#: [id number] DID#: [id number] CC: HARPAL PEDROZA MD; DANIAL TUCKER MD; LAUREN GREWAL MD;*End*
--- NOTE | 2018-09-05 13:49 | CONS ---
Assessment/Plan Assessment/Plan Hospital Course (Demo Recall) No events over night, looks comfortable, no fevers Antimicrobials: none Microbiology: Urine culture on admission grew E. coli and Proteus, blood cultures growing oxacillin sensitive staph aureus endotracheal aspirate also growing oxacillin sensitive staph aureus ear drainage preliminary growing staph aureus, repeat blood cultures 2 days ago negative Indwelling: Trach, PEG, right femoral Devan, right upper extremity PICC line Physical examination: Obese well-developed middle-aged woman who is intubated in no distress. Head atraumatic normocephalic neck is supple chest rise symmetri ellyn breath sounds diminished bases. Heart: S1-S2. Abdomen distended. Bowel sounds hypoactive. Extremities cyanotic Assessment: 1. S/p sepsis 2. Healthcare associated pneumonia==> treated 3. S/p Oxacillin sensitive staph aureus bacteremia 2 to #3 4. S/p polymicrobial UTI 5. ST elevation MS, status post stent 6. Status post V. fib arrest 7. Acute renal failure, started on hemodialysis 8. 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 Anemia and thrombocytopenia 10. Acute sinusitis and bilateral mastoiditis 11. Morbid obesity 12. Diarrhea, r/o C dif Plan: Remains stable, continue present care Consultation Date/Type/Reason Admit Date/Time Aug 04, 2018 at 23:10 Initial Consult Date 08/12/18 Type of Consult id Requesting Provider: HARPAL AGGARWAL MD Date/Time of Note DATE: 09/05/18 TIME: 13:48 Exam/Review of Systems Exam Vitals Vital Signs Date Temp Pulse Resp B/P (MAP) Pulse Ox O2 O2 Flow FiO2 Time Delivery Rate 09/05/18 100 13:30 09/05/18 27 99 30 13:25 09/05/18 98.3 138/83 Mechanical 12:15 (101) Ventilator Intake and Output 09/04/18 09/04/18 09/05/18 1515:00 23:00 07:00 IntakeIntake Total 0 ml 0 ml 410 ml OutputOutput Total 310 ml 5 ml 200 ml BalanceBalance -310 ml -5 ml 210 ml Results Result Diagram: 09/05/18 0604 09/05/18 0604 Results 24hrs Laboratory Tests Test 09/05/18 06:04 White Blood Count 12.0 H Red Blood Count 2.84 L Hemoglobin 8.3 L Hematocrit 27.2 L Mean Corpuscular Volume 95.8 Mean Corpuscular Hemoglobin 29.2 Mean Corpuscular Hemoglobin Concent 30.5 L Red Cell Distribution Width 17.3 H Platelet Count 203 Mean Platelet Volume 13.0 H Immature Granulocytes % 4.100 H Neutrophils % 67.0 Lymphocytes % 17.4 Monocytes % 8.5 Eosinophils % 2.1 Basophils % 0.9 Nucleated Red Blood Cells % 0.0 Immature Granulocytes # 0.490 H Neutrophils # 8.0 H Lymphocytes # 2.1 Monocytes # 1.0 H Eosinophils # 0.3 Basophils # 0.1 Nucleated Red Blood Cells # 0.0 Sodium Level 135 Potassium Level 4.0 Chloride Level 99 Carbon Dioxide Level 23 Anion Gap 13 Blood Urea Nitrogen 70 H Creatinine 4.49 #H Glucose Level 110 Calcium Level 10.0 Phosphorus Level 7.5 #H Magnesium Level 2.6 H Albumin 3.2 L Medications Medication Current Medications Atorvastatin Calcium (Lipitor) 80 mg DAILY@21 PO Last administered on 09/04/18at 21:06; Admin Dose 80 MG; Start 08/05/18 at 21:00 Miscellaneous Information 1 ea NOTE XX ; Start 08/05/18 at 09:00 Acetaminophen (Tylenol Liquid) 650 mg Q4H PRN PO ELEVATED TEMPERATURE Last administered on 09/01/18at 00:29; Admin Dose 650 MG; Start 08/05/18 at 11:00; Status Hold Miscellaneous Information (* Miscellaneous Pharmacy Order) Treatment of Hypoglycemia: 1.BG 51... Per protocol XX ; Start 08/05/18 at 12:00 Dextrose (D50w Syringe) 25 ml Q15M PRN IV .DECREASED GLUCOSE; Start 08/05/18 at 12:00 Dextrose (D50w Syringe) 50 ml Q15M PRN IV .DECREASED GLUCOSE; Start 08/05/18 at 12:00 Aspirin (Aspirin) 81 mg DAILY NGT Last administered on 09/05/18at 08:52; Admin Dose 81 MG; Start 08/06/18 at 09:00 Multivitamins (Multivitamin) 30 ml DAILY NGT Last administered on 09/05/18at 08:51; Admin Dose 30 ML; Start 08/09/18 at 09:00 Zinc Sulfate (Zinc Sulfate) 220 mg DAILY NGT Last administered on 09/05/18at 08:52; Admin Dose 220 MG; Start 08/09/18 at 09:00 Folic Acid (Folic Acid) 1 mg DAILY NGT Last administered on 09/05/18 08:52; Admin Dose 1 MG; Start 08/09/18 at 09:00 Ascorbic Acid (Vitamin C) 500 mg DAILY NGT Last administered on 09/05/18 08:52; Admin Dose 500 MG; Start 08/09/18 at 09:00 Albuterol (Ventolin Hfa) 4 puff Q6HWA RESP THERAPY INH Last administered on 09/05/18 13:28; Admin Dose 4 PUFF; Start 08/09/18 at 14:00 Ipratropium [place] (Atrovent Hfa) 4 puff Q6H RESP THERAPY INH Last administered on 09/05/18 13:28; Admin Dose 4 PUFF; Start 08/09/18 at 14:00 IV Flush (NS 10 ml) 10 ml PRN PRN IV IV PROTOCOL; Start 08/11/18 at 16:30 Heparin Sodium (Porcine) (Heparin (1000 Units/ml)) 3,000 unit PRN PRN CATHETER Dialysis Last administered on 08/31/18 12:16; Admin Dose 3,000 UNIT; Start 08/12/18 at 14:30 Labetalol HCl (Labetalol) 10 mg Q4H PRN IV ELEVATED SYSTOLIC BP > 180 Last administered on 08/20/18 16:54; Admin Dose 10 MG; Start 08/14/18 at 19:00 Hydralazine HCl (Apresoline) 20 mg Q2 PRN IV ELEVATED SYSTOLIC BP Last administered on 09/04/18 08:58; Admin Dose 20 MG; Start 08/16/18 at 08:00 Docusate Sodium (Colace Liquid Cup) 100 mg BID GTB Last administered on 09/04/18 21:06; Admin Dose 100 MG; Start 08/18/18 at 09:00 Clopidogrel Bisulfate (plaVIX) 75 mg DAILY NGT Last administered on 09/05/18 08:51; Admin Dose 75 MG; Start 08/18/18 at 13:30 Rifaximin (Xifaxan) 200 mg TID PO Last administered on 09/05/18 12:23; Admin Dose 200 MG; Start 08/19/18 at 13:00 Sevelamer Carbonate (Renvela) 2.4 gm WITH MEALS GTB Last administered on 09/05/18 12:23; Admin Dose 2.4 GM; Start 08/23/18 at 11:30 Ondansetron HCl (Zofran Inj) 4 mg Q4H PRN IV NAUSEA AND/OR VOMITING Last administered on 09/02/18 12:57; Admin Dose 4 MG; Start 08/23/18 at 14:30 Lactobacillus Acidophilus/ Rhamnosus (Culturelle) 1 cap TID GTB Last administered on 09/05/18 12:23; Admin Dose 1 CAP; Start 08/24/18 at 13:00 Albumin Human 100 ml @ 100 mls/hr WITH DIALYSIS PRN IV SBP <90 DURING DIALYSIS; Start 08/26/18 at 12:00 Sodium Chloride (NS) -To prime the dialy... DIRECTED FOR HD PRN IV HD; Start 08/26/18 at 12:00 Nitroglycerin (Nitroglycerin 2% Oint) 0.5 inch Q6 PRN TD CHEST PAIN; Start 08/27/18 at 00:30 Lorazepam (Ativan) 1 mg Q4H PRN IV ANXIETY Last administered on 08/27/18 04:14; Admin Dose 1 MG; Start 08/27/18 at 04:30 Eye Lubricant (Artificial Tears Oph) 2 drop Q2H PRN BOTH EYES dry eyes; Start 08/28/18 at 01:30 Heparin Sodium (Porcine) (Heparin (5000 Units/1ml)) 5,000 unit Q8 SC Last administered on 09/05/18 06:06; Admin Dose 5,000 UNIT; Start 08/29/18 at 14:00 Epoetin Jarrell-epbx (RETACRIT(esrd)) 10,000 unit MoWeFr@1700 SC Last administered on 09/03/18 17:17; Admin Dose 10,000 UNIT; Start 08/29/18 at 17:00 Morphine Sulfate (morphine) 3 mg Q1H PRN GTB PAIN NOT RELIEVED BY OTHERS Last administered on 08/30/18 13:12; Admin Dose 3 MG; Start 08/29/18 at 12:00 Lansoprazole (Prevacid) 30 mg DAILY@06 GTB Last administered on 09/05/18 05:56; Admin Dose 30 MG; Start 08/30/18 at 06:00 Carvedilol (Coreg) 25 mg TID PO Last administered on 09/05/18at 08:54; Admin Dose 25 MG; Start 08/30/18 at 09:00 Oxycodone HCl (Roxicodone) 5 mg Q4H PRN PO MODERATE PAIN LEVEL 4-6 Last administered on 09/02/18at 13:01; Admin Dose 5 MG; Start 09/01/18 at 10:00 Miscellaneous Information (* Miscellaneous Pharmacy Order) ASPIRIN ORDER WILL ... Q12 XX ; Start 09/05/18 at 10:00 WIN LUCIANO NP Sep 05, 2018 13:49
[2018-09-05] MEDS: HEPARIN 1000 UNITS/ML 10 ML INJ CATHETER PRN (15:28)
--- NOTE | 2018-09-05 15:28 | CONS ---
Consult Date/Type/Reason Admit Date/Time Aug 04, 2018 at 23:10 Initial Consult Date 08/05/18 Type of Consult Pulmonary Requesting Provider: HARPAL AGGARWAL MD Date/Time of Note DATE: 09/05/18 TIME: 15:28 Subjective Patient appears comfortable awake alert oriented no respiratory distress. Tolerating SIMV. Objective Vital Signs Date Temp Pulse Resp B/P (MAP) Pulse Ox O2 O2 Flow FiO2 Time Delivery Rate 09/05/18 99.6 96 25 140/93 100 Trach 14:57 (109) Collar 09/05/18 30 14:56 Intake and Output 09/04/18 09/04/18 09/05/18 1414:59 22:59 06:59 IntakeIntake Total 0 ml 0 ml 410 ml OutputOutput Total 290 ml 25 ml 200 ml BalanceBalance -290 ml -25 ml 210 ml Exam GENERAL: Pleasant young lady on mechanical ventilation via tracheostomy VITAL SIGNS: per chart NECK: Supple. No JVD or lymphadenopathy. CARDIAC EXAM: S1, S2. No added sounds or murmurs. CHEST: clear bilaterally, No added sounds, rales or wheezes ABDOMEN: Soft, nontender. No guarding or rebound. EXTREMITIES: No cyanosis, clubbing or edema. NEUROLOGIC: Generalized weakness. No focal deficits. Vent Setting Ventilator Support Mode: PS, SIMV Fraction of Inspired Oxygen pe: 30 Positive End Expiratory Pressu: 5.0 Results/Medications Result Diagram: 09/05/18 0604 09/05/18 0604 Results 24 hrs Laboratory Tests Test 09/05/18 06:04 White Blood Count 12.0 H Red Blood Count 2.84 L Hemoglobin 8.3 L Hematocrit 27.2 L Mean Corpuscular Volume 95.8 Mean Corpuscular Hemoglobin 29.2 Mean Corpuscular Hemoglobin Concent 30.5 L Red Cell Distribution Width 17.3 H Platelet Count 203 Mean Platelet Volume 13.0 H Immature Granulocytes % 4.100 H Neutrophils % 67.0 Lymphocytes % 17.4 Monocytes % 8.5 Eosinophils % 2.1 Basophils % 0.9 Nucleated Red Blood Cells % 0.0 Immature Granulocytes # 0.490 H Neutrophils # 8.0 H Lymphocytes # 2.1 Monocytes # 1.0 H Eosinophils # 0.3 Basophils # 0.1 Nucleated Red Blood Cells # 0.0 Sodium Level 135 Potassium Level 4.0 Chloride Level 99 Carbon Dioxide Level 23 Anion Gap 13 Blood Urea Nitrogen 70 H Creatinine 4.49 #H Glucose Level 110 Calcium Level 10.0 Phosphorus Level 7.5 #H Magnesium Level 2.6 H Albumin 3.2 L Medications Current Medications Atorvastatin Calcium (Lipitor) 80 mg DAILY@21 PO Last administered on 09/04/18at 21:06; Admin Dose 80 MG; Start 08/05/18 at 21:00 Miscellaneous Information 1 ea NOTE XX ; Start 08/05/18 at 09:00 Acetaminophen (Tylenol Liquid) 650 mg Q4H PRN PO ELEVATED TEMPERATURE Last administered on 09/01/18 00:29; Admin Dose 650 MG; Start 08/05/18 at 11:00; Status Hold Miscellaneous Information (* Miscellaneous Pharmacy Order) Treatment of Hypoglycemia: 1.BG 51... Per protocol XX ; Start 08/05/18 at 12:00 Dextrose (D50w Syringe) 25 ml Q15M PRN IV .DECREASED GLUCOSE; Start 08/05/18 at 12:00 Dextrose (D50w Syringe) 50 ml Q15M PRN IV .DECREASED GLUCOSE; Start 08/05/18 at 12:00 Aspirin (Aspirin) 81 mg DAILY NGT Last administered on 09/05/18 08:52; Admin Dose 81 MG; Start 08/06/18 at 09:00 Multivitamins (Multivitamin) 30 ml DAILY NGT Last administered on 09/05/18 08:51; Admin Dose 30 ML; Start 08/09/18 at 09:00 Zinc Sulfate (Zinc Sulfate) 220 mg DAILY NGT Last administered on 09/05/18 08:52; Admin Dose 220 MG; Start 08/09/18 at 09:00 Folic Acid (Folic Acid) 1 mg DAILY NGT Last administered on 09/05/18 08:52; Admin Dose 1 MG; Start 08/09/18 at 09:00 Ascorbic Acid (Vitamin C) 500 mg DAILY NGT Last administered on 09/05/18 08:52; Admin Dose 500 MG; Start 08/09/18 at 09:00 Albuterol (Ventolin Hfa) 4 puff Q6HWA RESP THERAPY INH Last administered on 09/05/18at 13:28; Admin Dose 4 PUFF; Start 08/09/18 at 14:00 Ipratropium [place] (Atrovent Hfa) 4 puff Q6H RESP THERAPY INH Last administered on 09/05/18 13:28; Admin Dose 4 PUFF; Start 08/09/18 at 14:00 IV Flush (NS 10 ml) 10 ml PRN PRN IV IV PROTOCOL; Start 08/11/18 at 16:30 Heparin Sodium (Porcine) (Heparin (1000 Units/ml)) 3,000 unit PRN PRN CATHETER Dialysis Last administered on 08/31/18 12:16; Admin Dose 3,000 UNIT; Start 07/21 09/07 at 14:30 Labetalol HCl (Labetalol) 10 mg Q4H PRN IV ELEVATED SYSTOLIC BP > 180 Last administered on 08/20/18 16:54; Admin Dose 10 MG; Start 08/14/18 at 19:00 Hydralazine HCl (Apresoline) 20 mg Q2 PRN IV ELEVATED SYSTOLIC BP Last administered on 09/04/18 08:58; Admin Dose 20 MG; Start 08/16/18 at 08:00 Clopidogrel Bisulfate (plaVIX) 75 mg DAILY NGT Last administered on 09/05/18 08:51; Admin Dose 75 MG; Start 08/18/18 at 13:30 Rifaximin (Xifaxan) 200 mg TID PO Last administered on 09/05/18 12:23; Admin Dose 200 MG; Start 08/19/18 at 13:00 Sevelamer Carbonate (Renvela) 2.4 gm WITH MEALS GTB Last administered on 09/05/18 12:23; Admin Dose 2.4 GM; Start 08/23/18 at 11:30 Ondansetron HCl (Zofran Inj) 4 mg Q4H PRN IV NAUSEA AND/OR VOMITING Last administered on 09/02/18 12:57; Admin Dose 4 MG; Start 08/23/18 at 14:30 Lactobacillus Acidophilus/ Rhamnosus (Culturelle) 1 cap TID GTB Last administered on 09/05/18 12:23; Admin Dose 1 CAP; Start 08/24/18 at 13:00 Albumin Human 100 ml @ 100 mls/hr WITH DIALYSIS PRN IV SBP <90 DURING DIALYSIS; Start 08/26/18 at 12:00 Sodium Chloride (NS) -To prime the dialy... DIRECTED FOR HD PRN IV HD; Start 08/26/18 at 12:00 Nitroglycerin (Nitroglycerin 2% Oint) 0.5 inch Q6 PRN TD CHEST PAIN; Start 08/27/18 at 00:30 Lorazepam (Ativan) 1 mg Q4H PRN IV ANXIETY Last administered on 08/27/18at 04:14; Admin Dose 1 MG; Start 08/27/18 at 04:30 Eye Lubricant (Artificial Tears Oph) 2 drop Q2H PRN BOTH EYES dry eyes; Start 08/28/18 at 01:30 Heparin Sodium (Porcine) (Heparin (5000 Units/1ml)) 5,000 unit Q8 SC Last administered on 09/05/18at 06:06; Admin Dose 5,000 UNIT; Start 08/29/18 at 14:00 Epoetin Jarrell-epbx (RETACRIT(esrd)) 10,000 unit MoWeFr@1700 SC Last administered on 09/03/18at 17:17; Admin Dose 10,000 UNIT; Start 08/29/18 at 17:00 Morphine Sulfate (morphine) 3 mg Q1H PRN GTB PAIN NOT RELIEVED BY OTHERS Last administered on 08/30/18at 13:12; Admin Dose 3 MG; Start 08/29/18 at 12:00 Lansoprazole (Prevacid) 30 mg DAILY@06 GTB Last administered on 09/05/18at 05:56; Admin Dose 30 MG; Start 08/30/18 at 06:00 Carvedilol (Coreg) 25 mg TID PO Last administered on 09/05/18at 08:54; Admin Dose 25 MG; Start 08/30/18 at 09:00 Oxycodone HCl (Roxicodone) 5 mg Q4H PRN PO MODERATE PAIN LEVEL 4-6 Last administered on 09/02/18at 13:01; Admin Dose 5 MG; Start 09/01/18 at 10:00 Miscellaneous Information (* Miscellaneous Pharmacy Order) ASPIRIN ORDER WILL ... Q12 XX ; Start 09/05/18 at 10:00 Assessment/Plan Hospital Course (Demo Recall) IMP: 1. Ventricular Fibrillation Arrest--s/p ROSC 2/2 STEMI s/p PCI status post hypothermia protocol. Multivessel coronary artery disease status post stent placement x3 2. STEMI, Status post stent x3 placement. 3. CVA multiple infarcts noted. 4. Hypoxemic respiratory failure no status post tracheostomy placement 5. HUSEYIN--likely ATN continues hemodialysis 6. Ischemic hepatopathy--2/2 arrest 7. Resolving encephalopathy RECS: 1. We will attempt cool aerosol during the day. SIMV at night. 2. Trach site care. 3. Encourage out of bed. 4. PEG tube feeding 5. Continue Abx 6. Speech therapy evaluation consider de-escalation 7. Hemodialysis per nephrology 8. Physical therapy evaluation [facility] ANDERSON [facility] Sep 05, 2018 15:28
--- NOTE | 2018-09-05 16:33 | PN ---
Date/Time of Note Date/Time of Note DATE: 09/05/18 TIME: 16:30 Assessment/Plan VTE Prophylaxis Risk score (from Nsg)>0 risk: 8 SCD applied (from Nsg): Yes Pharmacological prophylaxis: other Lines/Catheters IV Catheter Type (from Nrsg): PICC Line Central line still needed: Yes Urinary Cath still in place: Yes Reason Cath still needed: terminal illness/intractable pain Assessment/Plan Assessment/Plan 1. CAD s/p PCI x3 - Cardiology on board and appreciate recommendations. Will need to continue aspirin for life and DAPT for 1 year - s/p emergent Cath 08/05 with successful PTCA and stenting of proximal and mid LAD, PTCA of the large first diagonal and thrombectomy of the LAD - Repeat PCI on 08/07 performed with stenting to LCx - Repeat PCI on 09/04 with stenting ostial/proximal right coronary artery 2. Acute hypoxic respiratory failure- improving - patient doing well on SIMV and will try cool aerosol during the day and SIMV at night per Pulm recommendations - Pulm on board and appreciate recommendations. 3. Acute toxic/metabolic encephalopathy- resolved - Patient back to baseline and doing well. - Neurology input appreciated and will reconsult if needed 4. Bilateral CVA - PT/OT on board - Found on MRI, likely thromboembolic secondary to cardiopulmonary arrest per neurology - Continue on aspirin/Plavix and Lipitor 5. Anemia, blood loss and renal disease- stable - Hgb remains stable, transfuse as needed 6. Bilateral Pneumonia - ID on board and appreciate recommendations. Monitor off antibiotics 7. Septic shock secondary to PNA and bacteremia- resolved - Blood cultures and sputum culture results noted. - ID on board 8. Renal failure on HD - Nephrology on board and appreciate recommendations. Continue HD - secondary to septic shock, ATN vs prerenal vs contrast induced nephropathy 9. Diabetes - A1c noted - ISS not needed 10. S/p V-fib cardiac arrest secondary to STEMI - Completed hypothermia protocol 11. Disposition - on board for SNF placement. Patient remains medically stable Result Diagram: 09/05/18 0604 09/05/18 0604 Results 24hrs Laboratory Tests Test 09/05/18 06:04 White Blood Count 12.0 H Red Blood Count 2.84 L Hemoglobin 8.3 L Hematocrit 27.2 L Mean Corpuscular Volume 95.8 Mean Corpuscular Hemoglobin 29.2 Mean Corpuscular Hemoglobin Concent 30.5 L Red Cell Distribution Width 17.3 H Platelet Count 203 Mean Platelet Volume 13.0 H Immature Granulocytes % 4.100 H Neutrophils % 67.0 Lymphocytes % 17.4 Monocytes % 8.5 Eosinophils % 2.1 Basophils % 0.9 Nucleated Red Blood Cells % 0.0 Immature Granulocytes # 0.490 H Neutrophils # 8.0 H Lymphocytes # 2.1 Monocytes # 1.0 H Eosinophils # 0.3 Basophils # 0.1 Nucleated Red Blood Cells # 0.0 Sodium Level 135 Potassium Level 4.0 Chloride Level 99 Carbon Dioxide Level 23 Anion Gap 13 Blood Urea Nitrogen 70 H Creatinine 4.49 #H Glucose Level 110 Calcium Level 10.0 Phosphorus Level 7.5 #H Magnesium Level 2.6 H Albumin 3.2 L Subjective 24 Hr Interval Summary Free Text/Dictation Patient denies any acute issues. Tolerating SIMV mode this am. No acute distress noted. Exam/Review of Systems Exam Vitals Vital Signs Date Temp Pulse Resp B/P (MAP) Pulse Ox O2 O2 Flow FiO2 Time Delivery Rate 09/05/18 100 15:15 09/05/18 99.6 25 140/93 100 Trach 14:57 (109) Collar 09/05/18 30 14:56 Intake and Output 09/04/18 09/04/18 09/05/18 1515:00 23:00 07:00 IntakeIntake Total 0 ml 0 ml 410 ml OutputOutput Total 310 ml 5 ml 200 ml BalanceBalance -310 ml -5 ml 210 ml Exam General: Patient is laying in bed. no acute distress Neck: Supple, nontender, midline. trach Respiratory: Diminished breath sounds. no wheezing Cardiovascular: regular rate and rhythm, no obvious murmurs Gastrointestinal: soft, non-tender to palpation, bowel sounds heard. PEG in place Neurological: Able to follow commands and move all extremities Skin: No new skin lesions Results Results 24hrs Laboratory Tests Test 09/05/18 06:04 White Blood Count 12.0 H Red Blood Count 2.84 L Hemoglobin 8.3 L Hematocrit 27.2 L Mean Corpuscular Volume 95.8 Mean Corpuscular Hemoglobin 29.2 Mean Corpuscular Hemoglobin Concent 30.5 L Red Cell Distribution Width 17.3 H Platelet Count 203 Mean Platelet Volume 13.0 H Immature Granulocytes % 4.100 H Neutrophils % 67.0 Lymphocytes % 17.4 Monocytes % 8.5 Eosinophils % 2.1 Basophils % 0.9 Nucleated Red Blood Cells % 0.0 Immature Granulocytes # 0.490 H Neutrophils # 8.0 H Lymphocytes # 2.1 Monocytes # 1.0 H Eosinophils # 0.3 Basophils # 0.1 Nucleated Red Blood Cells # 0.0 Sodium Level 135 Potassium Level 4.0 Chloride Level 99 Carbon Dioxide Level 23 Anion Gap 13 Blood Urea Nitrogen 70 H Creatinine 4.49 #H Glucose Level 110 Calcium Level 10.0 Phosphorus Level 7.5 #H Magnesium Level 2.6 H Albumin 3.2 L Medications Medication Current Medications Atorvastatin Calcium (Lipitor) 80 mg DAILY@21 PO Last administered on 09/04/18at 21:06; Admin Dose 80 MG; Start 08/05/18 at 21:00 Miscellaneous Information 1 ea NOTE XX ; Start 08/05/18 at 09:00 Acetaminophen (Tylenol Liquid) 650 mg Q4H PRN PO ELEVATED TEMPERATURE Last administered on 09/01/18at 00:29; Admin Dose 650 MG; Start 08/05/18 at 11:00; Status Hold Miscellaneous Information (* Miscellaneous Pharmacy Order) Treatment of Hypoglycemia: 1.BG 51... Per protocol XX ; Start 08/05/18 at 12:00 Dextrose (D50w Syringe) 25 ml Q15M PRN IV .DECREASED GLUCOSE; Start 08/05/18 at 12:00 Dextrose (D50w Syringe) 50 ml Q15M PRN IV .DECREASED GLUCOSE; Start 08/05/18 at 12:00 Aspirin (Aspirin) 81 mg DAILY NGT Last administered on 09/05/18 08:52; Admin Dose 81 MG; Start 08/06/18 at 09:00 Multivitamins (Multivitamin) 30 ml DAILY NGT Last administered on 09/05/18at 08:51; Admin Dose 30 ML; Start 08/09/18 at 09:00 Zinc Sulfate (Zinc Sulfate) 220 mg DAILY NGT Last administered on 09/05/18 08:52; Admin Dose 220 MG; Start 08/09/18 at 09:00 Folic Acid (Folic Acid) 1 mg DAILY NGT Last administered on 09/05/18 08:52; Admin Dose 1 MG; Start 08/09/18 at 09:00 Ascorbic Acid (Vitamin C) 500 mg DAILY NGT Last administered on 09/05/18 08:52; Admin Dose 500 MG; Start 08/09/18 at 09:00 Albuterol (Ventolin Hfa) 4 puff Q6HWA RESP THERAPY INH Last administered on 09/05/18 13:28; Admin Dose 4 PUFF; Start 08/09/18 at 14:00 Ipratropium [place] (Atrovent Hfa) 4 puff Q6H RESP THERAPY INH Last administered on 09/05/18 13:28; Admin Dose 4 PUFF; Start 08/09/18 at 14:00 IV Flush (NS 10 ml) 10 ml PRN PRN IV IV PROTOCOL; Start 08/11/18 at 16:30 Heparin Sodium (Porcine) (Heparin (1000 Units/ml)) 3,000 unit PRN PRN CATHETER Dialysis Last administered on 09/05/18 15:28; Admin Dose 3,000 UNIT; Start 08/12/18 at 14:30 Labetalol HCl (Labetalol) 10 mg Q4H PRN IV ELEVATED SYSTOLIC BP > 180 Last administered on 08/20/18 16:54; Admin Dose 10 MG; Start 08/14/18 at 19:00 Hydralazine HCl (Apresoline) 20 mg Q2 PRN IV ELEVATED SYSTOLIC BP Last admin istered on 09/04/18 08:58; Admin Dose 20 MG; Start 08/16/18 at 08:00 Clopidogrel Bisulfate (plaVIX) 75 mg DAILY NGT Last administered on 09/05/18 08:51; Admin Dose 75 MG; Start 08/18/18 at 13:30 Rifaximin (Xifaxan) 200 mg TID PO Last administered on 09/05/18 12:23; Admin Dose 200 MG; Start 08/19/18 at 13:00 Sevelamer Carbonate (Renvela) 2.4 gm WITH MEALS GTB Last administered on 09/05/18 12:23; Admin Dose 2.4 GM; Start 08/23/18 at 11:30 Ondansetron HCl (Zofran Inj) 4 mg Q4H PRN IV NAUSEA AND/OR VOMITING Last administered on 09/02/18 12:57; Admin Dose 4 MG; Start 08/23/18 at 14:30 Lactobacillus Acidophilus/ Rhamnosus (Culturelle) 1 cap TID GTB Last administered on 4/17/19at 12:23; Admin Dose 1 CAP; Start 08/24/18 at 13:00 Albumin Human 100 ml @ 100 mls/hr WITH DIALYSIS PRN IV SBP <90 DURING DIALYSIS; Start 08/26/18 at 12:00 Sodium Chloride (NS) -To prime the dialy... DIRECTED FOR HD PRN IV HD; Start 08/26/18 at 12:00 Nitroglycerin (Nitroglycerin 2% Oint) 0.5 inch Q6 PRN TD CHEST PAIN; Start 08/27/18 at 00:30 Lorazepam (Ativan) 1 mg Q4H PRN IV ANXIETY Last administered on 08/27/18at 04:14; Admin Dose 1 MG; Start 08/27/18 at 04:30 Eye Lubricant (Artificial Tears Oph) 2 drop Q2H PRN BOTH EYES dry eyes; Start 08/28/18 at 01:30 Heparin Sodium (Porcine) (Heparin (5000 Units/1ml)) 5,000 unit Q8 SC Last administered on 09/05/18at 16:11; Admin Dose 5,000 UNIT; Start 08/29/18 at 14:00 Epoetin Jarrell-epbx (RETACRIT(esrd)) 10,000 unit MoWeFr@1700 SC Last administered on 09/03/18at 17:17; Admin Dose 10,000 UNIT; Start 08/29/18 at 17:00 Morphine Sulfate (morphine) 3 mg Q1H PRN GTB PAIN NOT RELIEVED BY OTHERS Last administered on 08/30/18at 13:12; Admin Dose 3 MG; Start 08/29/18 at 12:00 Lansoprazole (Prevacid) 30 mg DAILY@06 GTB Last administered on 09/05/18at 05:56; Admin Dose 30 MG; Start 08/30/18 at 06:00 Carvedilol (Coreg) 25 mg TID PO Last administered on 09/05/18 08:54; Admin Dose 25 MG; Start 08/30/18 at 09:00 Oxycodone HCl (Roxicodone) 5 mg Q4H PRN PO MODERATE PAIN LEVEL 4-6 Last administered on 09/02/18at 13:01; Admin Dose 5 MG; Start 09/01/18 at 10:00 Miscellaneous Information (* Miscellaneous Pharmacy Order) ASPIRIN ORDER WILL ... Q12 XX ; Start 09/05/18 at 10:00 THOMAS RILEY MD Sep 05, 2018 16:33
[2018-09-05] MEDS: EPOETIN ALFA-EPBX (ESRD) 10,000 UNIT/ML VIAL SC SCH (17:17)
[2018-09-05] MEDS: ATORVASTATIN 80 MG TAB PO SCH (20:28)
[2018-09-06] VITALS (15 sets, daily range): BP systolic 122–150; BP diastolic 77–88; PULSE 93–108; RESP 14–26
[2018-09-06] MEDS: IPRATROPIUM (HFA) 12.9 GM INHALER INH SCH ×4 (01:03→20:10)
[2018-09-06] MEDS ORDERED: LORAZEPAM 2 MG INJ IV ONE (02:30)
[2018-09-06] MEDS: LANSOPRAZOLE 30 MG CAP GTB SCH (05:48)
[2018-09-06] MEDS: HEPARIN 5,000 UNIT/1 ML VIAL SC SCH ×3 (05:51→23:46)
[2018-09-06] MEDS: ALBUTEROL HFA 8 GM INHALER INH SCH ×3 (08:17→20:10)
--- NOTE | 2018-09-06 08:45 | CONS ---
Consult Date/Type/Reason Admit Date/Time Aug 04, 2018 at 23:10 Initial Consult Date 08/05/18 Type of Consultation: cv Requesting Provider: HARPAL AGGARWAL MD Date/Time of Note DATE: 09/06/18 TIME: 08:44 Subjective Interventional cardiology follow-up progress note Subjective: Events noted discussed with the staff and tele was reviewed. no V tachycardia o r V fibrillation. BP is stable now pt with no more bleeding at PEG or trach sites. she denies any cp to me now pt had no more issues with trach last night NO Groin pain or bleeding events noted s/p PCI 100% occluded LAD 08/04 S/P PCI LCX/ OM s/p trach 08/22/18 PCI RCA 09/04/18 Objective: General: Obese female no acute distress HEENT: NC/AT. pupils are equal. round. NECK: . no stridor. s/p trach on oxygen CV: RRR. systolic murmur; no gallop or rubs. PULM: no wheezing mild rhonchi. GI: Obese SOFT, NT, ND, no rebound or guarding s/pPEG Extremity: +B/L LE edema. no clubbing. neuro: awake and follows commands Psych: Calm now rectal: deferred vascular L femoral no bleeding or hematoma EKG August 06, 2018 was personally within normal sinus rhythm. T wave inversions anterior and inferior leads ECG 08/07: NSR ST T abn c/w ant/lat ischemia CXR 08/14: Nonspecific patchy bilateral pulmonary opacity, mildly improved on the right. No pneumothorax. Endotracheal tube, nasogastric tube, and right-sided PICC line remain in place. Stable mild cardiomegaly. The osseous structures are remarkable for degenerative enthesopathy of the spine. Chest x-ray done August 06 shows:No evidence for active cardiopulmonary disease. CXR 08/19: Diffuse bilateral reticular nodular infiltrates unchanged. Question bronchopneumonia versus failure. CXR 08/28/18: Allowing for support structures overlying the right base, no significant change. Left mid and bibasilar air space opacities/infiltrates are again present. Lines and tubes are stable ECHO personally reviewed Normal left ventricular cavity size. Normal left ventricular wall thickness. Ejection fraction is visually estimated at 55-65 %. Normal appearance of the mitral valve. Mitral valve is not well visualized. No mitral valve regurgitation is seen. Aortic valve not well visualized. No aortic regurgitation. Normal appearance of the tricuspid valve. Unable to obtain RVSP due to minimal presence of tricuspid regurgitation. No evidence of tricuspid regurgitation. Normal pericardium with no significant pericardial effusion. suboptimal study. Objective Vitals Vital Signs Date Temp Pulse Resp B/P (MAP) Pulse Ox O2 O2 Flow FiO2 Time Delivery Rate 09/06/18 96 08:18 09/06/18 100 5.0 28 08:15 09/06/18 99.7 20 150/88 07:15 (108) 09/06/18 Trach 04:00 Collar Intake and Output 09/05/18 09/05/18 09/06/18 1515:00 23:00 07:00 IntakeIntake Total 500 ml 530 ml OutputOutput Total 1600 ml 300 ml 90 ml BalanceBalance -1600 ml 200 ml 440 ml Results/Medications Result Diagram: 09/06/18 0806 09/05/18 0604 Results 24 hrs Laboratory Tests Test 09/06/18 08:06 White Blood Count 11.9 H Red Blood Count 2.71 L Hemoglobin 8.0 L Hematocrit 26.2 L Mean Corpuscular Volume 96.7 Mean Corpuscular Hemoglobin 29.5 Mean Corpuscular Hemoglobin Concent 30.5 L Red Cell Distribution Width 18.2 H Platelet Count 212 Mean Platelet Volume 12.9 H Immature Granulocytes % 3.600 H Neutrophils % 65.3 Lymphocytes % 19.4 Monocytes % 8.8 Eosinophils % 2.1 Basophils % 0.8 Nucleated Red Blood Cells % 0.0 Immature Granulocytes # 0.430 H Neutrophils # 7.8 H Lymphocytes # 2.3 Monocytes # 1.1 H Eosinophils # 0.3 Basophils # 0.1 Nucleated Red Blood Cells # 0.0 Medications Current Medications Atorvastatin Calcium (Lipitor) 80 mg DAILY@21 PO Last administered on 09/05/18at 20:28; Admin Dose 80 MG; Start 08/05/18 at 21:00 Miscellaneous Information 1 ea NOTE XX ; Start 08/05/18 at 09:00 Acetaminophen (Tylenol Liquid) 650 mg Q4H PRN PO ELEVATED TEMPERATURE Last administered on 09/01/18at 00:29; Admin Dose 650 MG; Start 08/05/18 at 11:00; St atus Hold Miscellaneous Information (* Miscellaneous Pharmacy Order) Treatment of Hypoglycemia: 1.BG 51... Per protocol XX ; Start 08/05/18 at 12:00 Dextrose (D50w Syringe) 25 ml Q15M PRN IV .DECREASED GLUCOSE; Start 08/05/18 at 12:00 Dextrose (D50w Syringe) 50 ml Q15M PRN IV .DECREASED GLUCOSE; Start 08/05/18 at 12:00 Aspirin (Aspirin) 81 mg DAILY NGT Last administered on 09/05/18 08:52; Admin Dose 81 MG; Start 08/06/18 at 09:00 Multivitamins (Multivitamin) 30 ml DAILY NGT Last administered on 09/05/18 08:51; Admin Dose 30 ML; Start 08/09/18 at 09:00 Zinc Sulfate (Zinc Sulfate) 220 mg DAILY NGT Last administered on 09/05/18 08:52; Admin Dose 220 MG; Start 08/09/18 at 09:00 Folic Acid (Folic Acid) 1 mg DAILY NGT Last administered on 09/05/18 08:52; Admin Dose 1 MG; Start 08/09/18 at 09:00 Ascorbic Acid (Vitamin C) 500 mg DAILY NGT Last administered on 09/05/18 08:52; Admin Dose 500 MG; Start 08/09/18 at 09:00 Albuterol (Ventolin Hfa) 4 puff Q6HWA RESP THERAPY INH Last administered on 09/06/18 08:17; Admin Dose 4 PUFF; Start 08/09/18 at 14:00 Ipratropium Bulan (Atrovent Hfa) 4 puff Q6H RESP THERAPY INH Last administered on 09/06/18 08:17; Admin Dose 4 PUFF; Start 08/09/18 at 14:00 IV Flush (NS 10 ml) 10 ml PRN PRN IV IV PROTOCOL; Start 08/11/18 at 16:30 Heparin Sodium (Porcine) (Heparin (1000 Units/ml)) 3,000 unit PRN PRN CATHETER Dialysis Last administered on 09/05/18 15:28; Admin Dose 3,000 UNIT; Start 08/12/18 at 14:30 Labetalol HCl (Labetalol) 10 mg Q4H PRN IV ELEVATED SYSTOLIC BP > 180 Last administered on 08/20/18 16:54; Admin Dose 10 MG; Start 08/14/18 at 19:00 Hydralazine HCl (Apresoline) 20 mg Q2 PRN IV ELEVATED SYSTOLIC BP Last administered on 09/04/18at 08:58; Admin Dose 20 MG; Start 08/16/18 at 08:00 Clopidogrel Bisulfate (plaVIX) 75 mg DAILY NGT Last administered on 09/05/18 08:51; Admin Dose 75 MG; Start 08/18/18 at 13:30 Rifaximin (Xifaxan) 200 mg TID PO Last administered on 09/05/18 20:28; Admin Dose 200 MG; Start 08/19/18 at 13:00 Sevelamer Carbonate (Renvela) 2.4 gm WITH MEALS GTB Last administered on 09/05/18at 17:14; Admin Dose 2.4 GM; Start 08/23/18 at 11:30 Ondansetron HCl (Zofran Inj) 4 mg Q4H PRN IV NAUSEA AND/OR VOMITING Last administered on 09/02/18at 12:57; Admin Dose 4 MG; Start 08/23/18 at 14:30 Lactobacillus Acidophilus/ Rhamnosus (Culturelle) 1 cap TID GTB Last administered on 09/05/18 20:28; Admin Dose 1 CAP; Start 08/24/18 at 13:00 Albumin Human 100 ml @ 100 mls/hr WITH DIALYSIS PRN IV SBP <90 DURING DIALYSIS; Start 08/26/18 at 12:00 Sodium Chloride (NS) -To prime the dialy... DIRECTED FOR HD PRN IV HD; Start 08/26/18 at 12:00 Nitroglycerin (Nitroglycerin 2% Oint) 0.5 inch Q6 PRN TD CHEST PAIN; Start 08/27/18 at 00:30 Lorazepam (Ativan) 1 mg Q4H PRN IV ANXIETY Last administered on 08/27/18at 04:14; Admin Dose 1 MG; Start 08/27/18 at 04:30 Eye Lubricant (Artificial Tears Oph) 2 drop Q2H PRN BOTH EYES dry eyes; Start 08/28/18 at 01:30 Heparin Sodium (Porcine) (Heparin (5000 Units/1ml)) 5,000 unit Q8 SC Last administered on 09/06/18at 05:51; Admin Dose 5,000 UNIT; Start 08/29/18 at 14:00 Epoetin Jarrell-epbx (RETACRIT(esrd)) 10,000 unit MoWeFr@1700 SC Last administered on 09/05/18at 17:17; Admin Dose 10,000 UNIT; Start 08/29/18 at 17:00 Morphine Sulfate (morphine) 3 mg Q1H PRN GTB PAIN NOT RELIEVED BY OTHERS Last administered on 08/30/18at 13:12; Admin Dose 3 MG; Start 08/29/18 at 12:00 Lansoprazole (Prevacid) 30 mg DAILY@06 GTB Last administered on 09/06/18at 05:48; Admin Dose 30 MG; Start 08/30/18 at 06:00 Carvedilol (Coreg) 25 mg TID PO Last administered on 09/05/18at 20:28; Admin Dose 25 MG; Start 08/30/18 at 09:00 Oxycodone HCl (Roxicodone) 5 mg Q4H PRN PO MODERATE PAIN LEVEL 4-6 Last administered on 09/02/18at 13:01; Admin Dose 5 MG; Start 09/01/18 at 10:00 Miscellaneous Information (* Miscellaneous Pharmacy Order) ASPIRIN ORDER WILL ... Q12 XX ; Start 09/05/18 at 10:00 Assessment/Plan Hospital Course (Demo Recall) 1. s/p V. fib cardiac arrest 2. Acute myocardial infarction 3. Status post emergent PCI of the 100% occluded LAD as well as PTCA of the diagonal and PCI LCX/ OM , sp PCI RCA 09/04 4. Diabetes 5. Respiratory failure status post intubation on the vent 6. Hypertension 7. Renal failure : acute on chronic 8. Likely history of congestive heart failure 9. Dyslipidemia 10. Encephalopathy: Clear anoxic brain injury on hypothermia protocol 11. Morbid obesity 12. Anemia 13. elevated LFT 14. fever, bacteremia pneumonia 15. Malnutrition, anasarca . 16. septic shock and staph aureus bacteremia 17. oropharyngeal bleeding 18. CVA Recommendations: Continue with aspirin/ plavix Antibiotic management as per ID recommendation HD as per renal Vent support respiratory care as per internal medicine and pulmonary consultants. s/p Trach now. weaning as tolerated. cont Coreg as tolerated/needed Transfusion prn given her severe anemia and RI/ VF tele monitoring DVT prophylaxis CODE STATUS full code Thank you for his referral. We will continue to follow along with you LOIS JOHNSON MD [facility] LOIS JOHNSON MD Sep 06, 2018 08:45
--- NOTE | 2018-09-06 08:52 | PN ---
DATE: 09/06/2018 SUBJECTIVE: The patient had hemodialysis yesterday, tolerated well. No other events noted. OBJECTIVE: VITAL SIGNS: Blood pressure is 150/88, pulse 96, respirations 20, temperature 99.7. HEENT: Head is normocephalic. NECK: Supple. HEART: Regular rate. LUNGS: Show diminished breath sounds at the base. ABDOMEN: Soft, nontender to palpation without rebound or guarding. EXTREMITIES: Negative for clubbing, cyanosis. Trace edema. DERMATOLOGIC: No rashes. MUSCULOSKELETAL: No joint effusion. NEUROLOGIC: No change in exam. MEDICATIONS: The patient's medications have been reviewed. LABORATORY DATA: Reviewed. ASSESSMENT AND PLAN: 1. Anuric acute kidney injury with previously normal baseline creatinine. The patient is currently dialysis dependent, no signs of renal recovery. We will continue intermittent dialysis. I also spok e with Dr. Wilson about the need of Perm-A-Cath placement pending OR time per Dr. Wilson. 2. Volume overload, improving. Continue ultrafiltration with dialysis. 3. Anemia. Continue to monitor hemoglobin and hematocrit levels. Continue Epogen. 4. Mineral bone disorder, monitor calcium and phosphorus levels. 5. Ventilator-dependent respiratory failure. Vent settings and ABG was reviewed. 6. Coronary artery disease status post percutaneous coronary intervention. Continue medical managem ent. 7. Acute cerebrovascular accident. Continue current treatment plan. 8. Dysphagia. Continue tube feeding. 9. Encephalopathy, improving. 10. Status post shock. 11. Status post cardiac arrest. Dictated By: BHUMI REDDY DO NR/NTS Conf#: [id number] DID#: [id number] CC: HARPAL PEDROZA MD; DANIAL TUCKER MD; LAUREN GREWAL MD;*EndCC*
[2018-09-06] MEDS: LACTOBACILLUS RHAMNOSUS CAP GTB SCH ×3 (10:08→22:55)
[2018-09-06] MEDS: CLOPIDOGREL 75 MG TAB NGT SCH (10:08)
[2018-09-06] MEDS: FOLIC ACID 1 MG TAB NGT SCH (10:08)
[2018-09-06] MEDS: RIFAXIMIN 200 MG TAB PO SCH ×3 (10:08→23:03)
[2018-09-06] MEDS: ZINC SULFATE 220 MG CAP NGT SCH (10:08)
[2018-09-06] MEDS: ASCORBIC ACID 500 MG TAB NGT SCH (10:08)
[2018-09-06] MEDS: ASPIRIN 81 MG TAB NGT SCH (10:08)
[2018-09-06] MEDS: MULTIVITAMINS 30 ML CUP NGT SCH (10:08)
[2018-09-06] MEDS: SEVELAMER CARBONATE 2.4 GM PKT GTB SCH ×3 (10:09→18:34)
--- NOTE | 2018-09-06 13:59 | CONS ---
Assessment/Plan Assessment/Plan Hospital Course (Demo Recall) Alert, feels goods Antimicrobials: none Microbiology: Urine culture on admission grew E. coli and Proteus, blood cultures growing oxacillin sensitive staph aureus endotracheal aspirate also gr owing oxacillin sensitive staph aureus ear drainage preliminary growing staph aureus, repeat blood cultures 2 days ago negative Indwelling: Trach, PEG, right femoral Devan, right upper extremity PICC line Physical examination: Obese well-developed middle-aged woman who is intubated in no distress. Head atraumatic normocephalic neck is supple chest rise symmetrical breath sounds diminished bases. Heart: S1-S2. Abdomen distended. Bowel sounds hypoactive. Extremities cyanotic Assessment: 1. S/p sepsis 2. Healthcare associated pneumonia==> treated 3. S/p Oxacillin sensitive staph aureus bacteremia 2 to #3 4. S/p polymicrobial UTI 5. STEMI, status post stent 6. Status post V. fib arrest 7. Acute renal failure, started on hemodialysis 8. 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 Anemia and thrombocytopenia 10. Acute sinusitis and bilateral mastoiditis 11. Morbid obesity 12. Diarrhea, r/o C dif Plan: Remains stable, off abx, continue present care Consultation Date/Type/Reason Admit Date/Time Aug 04, 2018 at 23:10 Initial Consult Date 08/12/18 Type of Consult id Requesting Provider: HARPAL AGGARWAL MD Date/Time of Note DATE: 09/06/18 TIME: 13:58 Exam/Review of Systems Exam Vitals Vital Signs Date Temp Pulse Resp B/P (MAP) Pulse Ox O2 O2 Flow FiO2 Time Delivery Rate 09/06/18 108 13:46 09/06/18 98.6 19 130/82 98 12:16 (98) 09/06/18 Aerosol 5.0 28 11:00 Intake and Output 09/05/18 09/05/18 09/06/18 1515:00 23:00 07:00 IntakeIntake Total 500 ml 530 ml OutputOutput Total 1600 ml 300 ml 90 ml BalanceBalance -1600 ml 200 ml 440 ml Results Result Diagram: 09/06/18 0806 09/06/18 0806 Results 24hrs Laboratory Tests Test 09/06/18 08:06 White Blood Count 11.9 H Red Blood Count 2.71 L Hemoglobin 8.0 L Hematocrit 26.2 L Mean Corpuscular Volume 96.7 Mean Corpuscular Hemoglobin 29.5 Mean Corpuscular Hemoglobin Concent 30.5 L Red Cell Distribution Width 18.2 H Platelet Count 212 Mean Platelet Volume 12.9 H Immature Granulocytes % 3.600 H Neutrophils % 65.3 Lymphocytes % 19.4 Monocytes % 8.8 Eosinophils % 2.1 Basophils % 0.8 Nucleated Red Blood Cells % 0.0 Immature Granulocytes # 0.430 H Neutrophils # 7.8 H Lymphocytes # 2.3 Monocytes # 1.1 H Eosinophils # 0.3 Basophils # 0.1 Nucleated Red Blood Cells # 0.0 Sodium Level 136 Potassium Level 3.5 Chloride Level 98 Carbon Dioxide Level 28 Anion Gap 10 Blood Urea Nitrogen 37 #H Creatinine 2.92 #H Glucose Level 122 Calcium Level 9.9 Phosphorus Level 5.2 #H Magnesium Level 2.4 Albumin 3.2 L Medications Medication Current Medications Atorvastatin Calcium (Lipitor) 80 mg DAILY@21 PO Last administered on 09/05/18at 20:28; Admin Dose 80 MG; Start 08/05/18 at 21:00 Miscellaneous Information 1 ea NOTE XX ; Start 08/05/18 at 09:00 Acetaminophen (Tylenol Liquid) 650 mg Q4H PRN PO ELEVATED TEMPERATURE Last administered on 09/01/18 00:29; Admin Dose 650 MG; Start 08/05/18 at 11:00; Status Hold Aspirin (Aspirin) 81 mg DAILY NGT Last administered on 09/06/18 10:08; Admin Dose 81 MG; Start 08/06/18 at 09:00 Multivitamins (Multivitamin) 30 ml DAILY NGT Last administered on 09/06/18 10:08; Admin Dose 30 ML; Start 08/09/18 at 09:00 Zinc Sulfate (Zinc Sulfate) 220 mg DAILY NGT Last administered on 09/06/18 10:08; Admin Dose 220 MG; Start 08/09/18 at 09:00 Folic Acid (Folic Acid) 1 mg DAILY NGT Last administered on 09/06/18 10:08; Admin Dose 1 MG; Start 08/09/18 at 09:00 Ascorbic Acid (Vitamin C) 500 mg DAILY NGT Last administered on 09/06/18 10:08; Admin Dose 500 MG; Start 08/09/18 at 09:00 Albuterol (Ventolin Hfa) 4 puff Q6HWA RESP THERAPY INH Last administered on 09/06/18 08:17; Admin Dose 4 PUFF; Start 08/09/18 at 14:00 Ipratropium Greig (Atrovent Hfa) 4 puff Q6H RESP THERAPY INH Last administered on 09/06/18 08:17; Admin Dose 4 PUFF; Start 08/09/18 at 14:00 IV Flush (NS 10 ml) 10 ml PRN PRN IV IV PROTOCOL; Start 08/11/18 at 16:30 Heparin Sodium (Porcine) (Heparin (1000 Units/ml)) 3,000 unit PRN PRN CATHETER Dialysis Last administered on 09/05/18 15:28; Admin Dose 3,000 UNIT; Start 08/12/18 at 14:30 Labetalol HCl (Labetalol) 10 mg Q4H PRN IV ELEVATED SYSTOLIC BP > 180 Last administered on 08/20/18 16:54; Admin Dose 10 MG; Start 08/14/18 at 19:00 Hydralazine HCl (Apresoline) 20 mg Q2 PRN IV ELEVATED SYSTOLIC BP Last administered on 09/04/18 08:58; Admin Dose 20 MG; Start 08/16/18 at 08:00 Clopidogrel Bisulfate (plaVIX) 75 mg DAILY NGT Last administered on 09/06/18 10:08; Admin Dose 75 MG; Start 08/18/18 at 13:30 Rifaximin (Xifaxan) 200 mg TID PO Last administered on 09/06/18 13:25; Admin Dose 200 MG; Start 08/19/18 at 13:00 Sevelamer Carbonate (Renvela) 2.4 gm WITH MEALS GTB Last administered on 09/06/18 13:25; Admin Dose 2.4 GM; Start 08/23/18 at 11:30 Ondansetron HCl (Zofran Inj) 4 mg Q4H PRN IV NAUSEA AND/OR VOMITING Last administered on 09/02/18 12:57; Admin Dose 4 MG; Start 08/23/18 at 14:30 Lactobacillus Acidophilus/ Rhamnosus (Culturelle) 1 cap TID GTB Last administe red on 09/06/18 13:25; Admin Dose 1 CAP; Start 08/24/18 at 13:00 Albumin Human 100 ml @ 100 mls/hr WITH DIALYSIS PRN IV SBP <90 DURING DIALYSIS; Start 08/26/18 at 12:00 Sodium Chloride (NS) -To prime the dialy... DIRECTED FOR HD PRN IV HD; Start 08/26/18 at 12:00 Nitroglycerin (Nitroglycerin 2% Oint) 0.5 inch Q6 PRN TD CHEST PAIN; Start 08/27/18 at 00:30 Lorazepam (Ativan) 1 mg Q4H PRN IV ANXIETY Last administered on 08/27/18at 04:14; Admin Dose 1 MG; Start 08/27/18 at 04:30 Eye Lubricant (Artificial Tears Oph) 2 drop Q2H PRN BOTH EYES dry eyes; Start 08/28/18 at 01:30 Heparin Sodium (Porcine) (Heparin (5000 Units/1ml)) 5,000 unit Q8 SC Last administered on 09/06/18at 13:34; Admin Dose 5,000 UNIT; Start 08/29/18 at 14:00 Epoetin Jarrell-epbx (RETACRIT(esrd)) 10,000 unit MoWeFr@1700 SC Last administered on 09/05/18at 17:17; Admin Dose 10,000 UNIT; Start 08/29/18 at 17:00 Morphine Sulfate (morphine) 3 mg Q1H PRN GTB PAIN NOT RELIEVED BY OTHERS Last administered on 08/30/18at 13:12; Admin Dose 3 MG; Start 08/29/18 at 12:00 Lansoprazole (Prevacid) 30 mg DAILY@06 GTB Last administered on 09/06/18at 05:48; Admin Dose 30 MG; Start 08/30/18 at 06:00 Carvedilol (Coreg) 25 mg TID PO Last administered on 09/06/18at 13:26; Admin Dose 25 MG; Start 08/30/18 at 09:00 Oxycodone HCl (Roxicodone) 5 mg Q4H PRN PO MODERATE PAIN LEVEL 4-6 Last administered on 09/02/18at 13:01; Admin Dose 5 MG; Start 09/01/18 at 10:00 Miscellaneous Information (* Miscellaneous Pharmacy Order) ASPIRIN ORDER WILL ... Q12 XX ; Start 09/05/18 at 10:00 WIN LUCIANO NP Sep 06, 2018 13:59
--- NOTE | 2018-09-06 14:31 | PN ---
Date/Time of Note Date/Time of Note DATE: 09/06/18 TIME: 14:27 Assessment/Plan VTE Prophylaxis Risk score (from Nsg)>0 risk: 9 SCD applied (from Nsg): Yes Pharmacological prophylaxis: other Lines/Catheters IV Catheter Type (from Nrsg): PICC Line Central line still needed: Yes Urinary Cath still in place: Yes Reason Cath still needed: terminal illness/intractable pain Assessment/Plan Assessment/Plan 1. CAD s/p PCI x3 - Cardiology on board and appreciate recommendations. Will need to continue aspirin for life and DAPT for 1 year - s/p emergent Cath 08/05 with successful PTCA and stenting of proximal and mid LAD, PTCA of the large first diagonal and thrombectomy of the LAD - Repeat PCI on 08/07 performed with stenting to LCx - Repeat PCI on 09/04 with stenting ostial/proximal right coronary artery 2. Acute hypoxic respiratory failure- improving - Doing well on cool aerosol this am and looks like can be decannulated in the future - Pulm on board and appreciate recommendations. 3. Acute toxic/metabolic encephalopathy- resolved - Patient back to baseline and doing well. - Neurology input appreciated and will reconsult if needed 4. Bilateral CVA - PT/OT on board - Found on MRI, likely thromboembolic secondary to cardiopulmonary arrest per neurology - Continue on aspirin/Plavix and Lipitor 5. Anemia, blood loss and renal disease- stable - Hgb remains stable, transfuse as needed 6. Bilateral Pneumonia - ID on board and appreciate recommendations. Monitor off antibiotics 7. Septic shock secondary to PNA and bacteremia- resolved - Blood cultures and sputum culture results noted. - ID on board 8. Renal failure on HD - Nephrology on board and appreciate recommendations. Continue HD - secondary to septic shock, ATN vs prerenal vs contrast induced nephropathy 9. Diabetes - A1c noted - ISS not needed 10. S/p V-fib cardiac arrest secondary to STEMI - Completed hypothermia protocol 11. Disposition - CM on board for placement. Patient remains medically stable Result Diagram: 09/06/1880509/06/18 08 Results 24hrs Laboratory Tests Test 09/06/18 08:06 White Blood Count 11.9 H Red Blood Count 2.71 L Hemoglobin 8.0 L Hematocrit 26.2 L Mean Corpuscular Volume 96.7 Mean Corpuscular Hemoglobin 29.5 Mean Corpuscular Hemoglobin Concent 30.5 L Red Cell Distribution Width 18.2 H Platelet Count 212 Mean Platelet Volume 12.9 H Immature Granulocytes % 3.600 H Neutrophils % 65.3 Lymphocytes % 19.4 Monocytes % 8.8 Eosinophils % 2.1 Basophils % 0.8 Nucleated Red Blood Cells % 0.0 Immature Granulocytes # 0.430 H Neutrophils # 7.8 H Lymphocytes # 2.3 Monocytes # 1.1 H Eosinophils # 0.3 Basophils # 0.1 Nucleated Red Blood Cells # 0.0 Sodium Level 136 Potassium Level 3.5 Chloride Level 98 Carbon Dioxide Level 28 Anion Gap 10 Blood Urea Nitrogen 37 #H Creatinine 2.92 #H Glucose Level 122 Calcium Level 9.9 Phosphorus Level 5.2 #H Magnesium Level 2.4 Albumin 3.2 L Subjective 24 Hr Interval Summary Free Text/Dictation Patient is doing well and denies any acute issues. She is tolerating aerosol mist this am. No respiratory distress noted. Exam/Review of Systems Exam Vitals Vital Signs Date Temp Pulse Resp B/P (MAP) Pulse Ox O2 O2 Flow FiO2 Time Delivery Rate 09/06/18 108 13:46 09/06/18 98.6 19 130/82 98 12:16 (98) 09/06/18 Aerosol 5.0 28 11:00 Intake and Output 09/05/18 09/05/18 09/06/18 1515:00 23:00 07:00 IntakeIntake Total 500 ml 530 ml OutputOutput Total 1600 ml 300 ml 90 ml BalanceBalance -1600 ml 200 ml 440 ml Exam General: Patient is laying in bed. no acute distress Neck: Supple, nontender, midline. trach Respiratory: Diminished breath sounds. no wheezing Cardiovascular: regular rate and rhythm, no obvious murmurs Gastrointestinal: soft, non-tender to palpation, bowel sounds heard. PEG in place Neurological: Able to follow commands and move all extremities Skin: No new skin lesions Results Results 24hrs Laboratory Tests Test 09/06/18 08:06 White Blood Count 11.9 H Red Blood Count 2.71 L Hemoglobin 8.0 L Hematocrit 26.2 L Mean Corpuscular Volume 96.7 Mean Corpuscular Hemoglobin 29.5 Mean Corpuscular Hemoglobin Concent 30.5 L Red Cell Distribution Width 18.2 H Platelet Count 212 Mean Platelet Volume 12.9 H Immature Granulocytes % 3.600 H Neutrophils % 65.3 Lymphocytes % 19.4 Monocytes % 8.8 Eosinophils % 2.1 Basophils % 0.8 Nucleated Red Blood Cells % 0.0 Immature Granulocytes # 0.430 H Neutrophils # 7.8 H Lymphocytes # 2.3 Monocytes # 1.1 H Eosinophils # 0.3 Basophils # 0.1 Nucleated Red Blood Cells # 0.0 Sodium Level 136 Potassium Level 3.5 Chloride Level 98 Carbon Dioxide Level 28 Anion Gap 10 Blood Urea Nitrogen 37 #H Creatinine 2.92 #H Glucose Level 122 Calcium Level 9.9 Phosphorus Level 5.2 #H Magnesium Level 2.4 Albumin 3.2 L Medications Medication Current Medications Atorvastatin Calcium (Lipitor) 80 mg DAILY@21 PO Last administered on 09/05/18 20:28; Admin Dose 80 MG; Start 08/05/18 at 21:00 Miscellaneous Information 1 ea NOTE XX ; Start 08/05/18 at 09:00 Acetaminophen (Tylenol Liquid) 650 mg Q4H PRN PO ELEVATED TEMPERATURE Last administered on 09/01/18 00:29; Admin Dose 650 MG; Start 08/05/18 at 11:00; Status Hold Aspirin (Aspirin) 81 mg DAILY NGT Last administered on 09/06/18 10:08; Admin Dose 81 MG; Start 08/06/18 at 09:00 Multivitamins (Multivitamin) 30 ml DAILY NGT Last administered on 09/06/18 10:08; Admin Dose 30 ML; Start 08/09/18 at 09:00 Zinc Sulfate (Zinc Sulfate) 220 mg DAILY NGT Last administered on 09/06/18 10:08; Admin Dose 220 MG; Start 08/09/18 at 09:00 Folic Acid (Folic Acid) 1 mg DAILY NGT Last administered on 09/06/18 10:08; Admin Dose 1 MG; Start 08/09/18 at 09:00 Ascorbic Acid (Vitamin C) 500 mg DAILY NGT Last administered on 09/06/18 10:08; Admin Dose 500 MG; Start 08/09/18 at 09:00 Albuterol (Ventolin Hfa) 4 puff Q6HWA RESP THERAPY INH Last administered on 09/06/18 08:17; Admin Dose 4 PUFF; Start 08/09/18 at 14:00 Ipratropium [place] (Atrovent Hfa) 4 puff Q6H RESP THERAPY INH Last administered on 09/06/18 08:17; Admin Dose 4 PUFF; Start 08/09/18 at 14:00 IV Flush (NS 10 ml) 10 ml PRN PRN IV IV PROTOCOL; Start 08/11/18 at 16:30 Heparin Sodium (Porcine) (Heparin (1000 Units/ml)) 3,000 unit PRN PRN CATHETER Dialysis Last administered on 09/05/18 15:28; Admin Dose 3,000 UNIT; Start 08/12/18 at 14:30 Labetalol HCl (Labetalol) 10 mg Q4H PRN IV ELEVATED SYSTOLIC BP > 180 Last administered on 08/20/18at 16:54; Admin Dose 10 MG; Start 08/14/18 at 19:00 Hydralazine HCl (Apresoline) 20 mg Q2 PRN IV ELEVATED SYSTOLIC BP Last administered on 09/04/18 08:58; Admin Dose 20 MG; Start 08/16/18 at 08:00 Clopidogrel Bisulfate (plaVIX) 75 mg DAILY NGT Last administered on 09/06/18 10:08; Admin Dose 75 MG; Start 08/18/18 at 13:30 Rifaximin (Xifaxan) 200 mg TID PO Last administered on 09/06/18 13:25; Admin Dose 200 MG; Start 08/19/18 at 13:00 Sevelamer Carbonate (Renvela) 2.4 gm WITH MEALS GTB Last administered on 09/06/18 13:25; Admin Dose 2.4 GM; Start 08/23/18 at 11:30 Ondansetron HCl (Zofran Inj) 4 mg Q4H PRN IV NAUSEA AND/OR VOMITING Last administered on 09/02/18at 12:57; Admin Dose 4 MG; Start 08/23/18 at 14:30 Lactobacillus Acidophilus/ Rhamnosus (Culturelle) 1 cap TID GTB Last administered on 09/06/18 13:25; Admin Dose 1 CAP; Start 08/24/18 at 13:00 Albumin Human 100 ml @ 100 mls/hr WITH DIALYSIS PRN IV SBP <90 DURING D IALYSIS; Start 08/26/18 at 12:00 Sodium Chloride (NS) -To prime the dialy... DIRECTED FOR HD PRN IV HD; Start 08/26/18 at 12:00 Nitroglycerin (Nitroglycerin 2% Oint) 0.5 inch Q6 PRN TD CHEST PAIN; Start 08/27/18 at 00:30 Lorazepam (Ativan) 1 mg Q4H PRN IV ANXIETY Last administered on 08/27/18 04:14; Admin Dose 1 MG; Start 08/27/18 at 04:30 Eye Lubricant (Artificial Tears Oph) 2 drop Q2H PRN BOTH EYES dry eyes; Start 08/28/18 at 01:30 Heparin Sodium (Porcine) (Heparin (5000 Units/1ml)) 5,000 unit Q8 SC Last administered on 09/06/18 13:34; Admin Dose 5,000 UNIT; Start 08/29/18 at 14:00 Epoetin Jarrell-epbx (RETACRIT(esrd)) 10,000 unit MoWeFr@1700 SC Last administered on 09/05/18 17:17; Admin Dose 10,000 UNIT; Start 08/29/18 at 17:00 Morphine Sulfate (morphine) 3 mg Q1H PRN GTB PAIN NOT RELIEVED BY OTHERS Last administered on 08/30/18 13:12; Admin Dose 3 MG; Start 08/29/18 at 12:00 Lansoprazole (Prevacid) 30 mg DAILY@06 GTB Last administered on 09/06/18 05:48; Admin Dose 30 MG; Start 08/30/18 at 06:00 Carvedilol (Coreg) 25 mg TID PO Last administered on 09/06/18 13:26; Admin Do se 25 MG; Start 08/30/18 at 09:00 Oxycodone HCl (Roxicodone) 5 mg Q4H PRN PO MODERATE PAIN LEVEL 4-6 Last administered on 09/02/18 13:01; Admin Dose 5 MG; Start 09/01/18 at 10:00 Miscellaneous Information (* Miscellaneous Pharmacy Order) [facility] ORDER WILL ... Q12 XX ; Start 09/05/18 at 10:00 THOMAS RILEY MD Sep 06, 2018 14:31
[2018-09-06] MEDS: morphine LIQ (10 MG/5 ML) CUP GTB PRN (16:15)
[2018-09-06] MEDS: ATORVASTATIN 80 MG TAB PO SCH (23:06)
[2018-09-07] VITALS (28 sets, daily range): BP systolic 106–155; BP diastolic 57–94; PULSE 85–104; RESP 18–25
[2018-09-07] MEDS: IPRATROPIUM (HFA) 12.9 GM INHALER INH SCH ×3 (01:17→14:00)
[2018-09-07] MEDS: LANSOPRAZOLE 30 MG CAP GTB SCH (06:47)
[2018-09-07] MEDS: HEPARIN 5,000 UNIT/1 ML VIAL SC SCH ×4 (07:42→21:22)
[2018-09-07] MEDS: ALBUTEROL HFA 8 GM INHALER INH SCH ×2 (08:03→14:00)
[2018-09-07] MEDS: RIFAXIMIN 200 MG TAB PO SCH ×3 (09:00→21:10)
[2018-09-07] MEDS: ASPIRIN 81 MG TAB NGT SCH ×3 (09:00→13:21)
[2018-09-07] MEDS: CLOPIDOGREL 75 MG TAB NGT SCH ×2 (09:00→13:21)
[2018-09-07] MEDS: LACTOBACILLUS RHAMNOSUS CAP GTB SCH ×3 (09:00→21:11)
[2018-09-07] MEDS: SEVELAMER CARBONATE 2.4 GM PKT GTB SCH ×3 (09:05→17:26)
--- NOTE | 2018-09-07 09:10 | PN ---
DATE: 09/07/2018 SUBJECTIVE: The patient is stable, scheduled for hemodialysis today. No other events noted. OBJECTIVE: VITAL SIGNS: Blood pressure is 133/86, respirations 25, pulse 92, temperature 98.9. HEENT: Head is normocephalic. NECK: Supple. HEART: Regular rate. LUNGS: Show diminished breath sounds at the base. ABDOMEN: Soft, nontender to palpation. No rebound or guarding. EXTREMITIES: Negative for clubbing, cyanosis, no edema. DERMATOLOGIC: No rashes. MUSCULOSKELETAL: No joint effusion. NEUROLOGIC: No change in exam. MEDICATIONS: Reviewed. LABORATORY DATA: Reviewed. ASSESSMENT AND PLAN: 1. Anuric acute kidney injury with previously normal baseline creatinine. The patient is currently dialysis dependent, no signs of renal recovery. Plan is for hemodialysis today. 2. Access. The patient has a Devan catheter. We will place an order for tunnel catheter to be pe rformed by interventional radiology. 3. Anemia. Continue to monitor hemoglobin and hematocrit levels. Continue Epogen. 4. Mineral bone disorder. Monitor calcium and phosphorus levels. 5. Ventilatory-dependent respiratory failure. Vent settings and ABG was reviewed. Continue to ash tor. 6. Coronary artery disease status post percutaneous coronary intervention. Continue medical managem ent. 7. Acute cerebrovascular accident. Continue current treatment plan. 8. Dysphagia. Continue tube feeding. 9. Encephalopathy, improving. 10. Status post shock. 11. Status post cardiac arrest. DISPOSITION: The patient is pending placement, may consider [facility]. Dictated By: BHUMI JOSEPH/NTS Conf#: [id number] DID#: [id number] CC: DANIAL TUCKER MD; LAUREN GREWAL MD; HARPAL PEDROZA MD;*EndCC*
--- NOTE | 2018-09-07 12:11 | CONS ---
Consult Date/Type/Reason Admit Date/Time Aug 04, 2018 at 23:10 Initial Consult Date 08/05/18 Type of Consultation: cv Requesting Provider: HARPAL AGGARWAL MD Date/Time of Note DATE: 09/07/18 TIME: 12:10 Subjective Interventional cardiology follow-up progress note Subjective: Events noted discussed with the staff and tele was reviewed. no V tachycardia o r V fibrillation. d/w family and physicians pt with no more bleeding at PEG or trach sites. she denies any cp to me now pt had no more issues with trach last night NO Groin pain or bleeding events noted s/p PCI 100% occluded LAD 08/04 S/P PCI LCX/ OM s/p trach 08/22/18 PCI RCA 09/04/18 Objective: General: Obese female no acute distress HEENT: NC/AT. pupils are equal. round. NECK: . no stridor. s/p trach on oxygen CV: RRR. systolic murmur; no gallop or rubs. PULM: no wheezing mild rhonchi. GI: Obese SOFT, NT, ND, no rebound or guarding s/pPEG Extremity: +B/L LE edema. no clubbing. neuro: awake and follows commands Psych: Calm now rectal: deferred vascular L femoral no bleeding or hematoma EKG August 06, 2018 was personally within normal sinus rhythm. T wave inversions anterior and inferior leads ECG 08/07: NSR ST T abn c/w ant/lat ischemia CXR 08/14: Nonspecific patchy bilateral pulmonary opacity, mildly improved on the right. No pneumothorax. Endotracheal tube, nasogastric tube, and right-sided PICC line remain in place. Stable mild cardiomegaly. The osseous structures are remarkable for degenerative enthesopathy of the spine. Chest x-ray done August 06 shows:No evidence for active cardiopulmonary disease. CXR 08/19: Diffuse bilateral reticular nodular infiltrates unchanged. Question bronchopneumonia versus failure. CXR 08/28/18: Allowing for support structures overlying the right base, no significant change. Left mid and bibasilar air space opacities/infiltrates are again present. Lines and tubes are stable ECHO personally reviewed Normal left ventricular cavity size. Normal left ventricular wall thickness. Ejection fraction is visually estimated at 55-65 %. Normal appearance of the mitral valve. Mitral valve is not well visualized. No mitral valve regurgitation is seen. Aortic valve not well visualized. No aortic regurgitation. Normal appearance of the tricuspid valve. Unable to obtain RVSP due to minimal presence of tricuspid regurgitation. No evidence of tricuspid regurgitation. Normal pericardium with no significant pericardial effusion. suboptimal study. Objective Vitals Vital Signs Date Temp Pulse Resp B/P (MAP) Pulse Ox O2 O2 Flow FiO2 Time Delivery Rate 09/07/18 98.0 101 22 137/67 96 Mechanical 11:53 (90) Ventilator Trach Collar 09/07/18 30 11:25 09/06/18 5.0 20:09 Intake and Output 09/06/18 09/06/18 09/07/18 1515:00 23:00 07:00 IntakeIntake Total 560 ml 560 ml OutputOutput Total 250 ml 350 ml BalanceBalance 310 ml 210 ml Results/Medications Result Diagram: 09/07/18 0700 09/07/18 0700 Results 24 hrs Laboratory Tests Test 09/07/18 07:00 White Blood Count 10.2 Red Blood Count 2.92 L Hemoglobin 8.4 L Hematocrit 27.8 L Mean Corpuscular Volume 95.2 Mean Corpuscular Hemoglobin 28.8 L Mean Corpuscular Hemoglobin Concent 30.2 L Red Cell Distribution Width 17.7 H Platelet Count 229 Mean Platelet Volume 12.9 H Immature Granulocytes % 4.000 H Neutrophils % 81.2 H Lymphocytes % 12.1 L Monocytes % 2.2 Eosinophils % 0.0 Basophils % 0.5 Nucleated Red Blood Cells % 0.2 H Immature Granulocytes # 0.410 H Neutrophils # 8.3 H Lymphocytes # 1.2 Monocytes # 0.2 L Eosinophils # 0.0 Basophils # 0.1 Nucleated Red Blood Cells # 0.0 Sodium Level 133 L Potassium Level 4.9 Chloride Level 98 Carbon Dioxide Level 26 Anion Gap 9 Blood Urea Nitrogen 50 H Creatinine 3.40 H Glucose Level 140 Calcium Level 10.8 H Phosphorus Level 6.5 H Magnesium Level 2.5 Albumin 3.3 Medications Current Medications Atorvastatin Calcium (Lipitor) 80 mg DAILY@21 PO Last administered on 09/06/18at 23:06; Admin Dose 80 MG; Start 08/05/18 at 21:00 Miscellaneous Information 1 ea NOTE XX ; Start 08/05/18 at 09:00 Acetaminophen (Tylenol Liquid) 650 mg Q4H PRN PO ELEVATED TEMPERATURE Last ad ministered on 09/01/18 00:29; Admin Dose 650 MG; Start 08/05/18 at 11:00; Status Hold Aspirin (Aspirin) 81 mg DAILY NGT Last administered on 09/06/18 10:08; Admin Dose 81 MG; Start 08/06/18 at 09:00 Multivitamins (Multivitamin) 30 ml DAILY NGT Last administered on 09/06/18 10:08; Admin Dose 30 ML; Start 08/09/18 at 09:00 Zinc Sulfate (Zinc Sulfate) 220 mg DAILY NGT Last administered on 09/06/18 10:08; Admin Dose 220 MG; Start 08/09/18 at 09:00 Folic Acid (Folic Acid) 1 mg DAILY NGT Last administered on 09/06/18 10:08; Admin Dose 1 MG; Start 08/09/18 at 09:00 Ascorbic Acid (Vitamin C) 500 mg DAILY NGT Last administered on 09/06/18 10:08; Admin Dose 500 MG; Start 08/09/18 at 09:00 Albuterol (Ventolin Hfa) 4 puff Q6HWA RESP THERAPY INH Last administered on 09/07/18 08:03; Admin Dose 4 PUFF; Start 08/09/18 at 14:00 Ipratropium [place] (Atrovent Hfa) 4 puff Q6H RESP THERAPY INH Last administered on 09/07/18 08:03; Admin Dose 4 PUFF; Start 08/09/18 at 14:00 IV Flush (NS 10 ml) 10 ml PRN PRN IV IV PROTOCOL; Start 08/11/18 at 16:30 Heparin Sodium (Porcine) (Heparin (1000 Units/ml)) 3,000 unit PRN PRN CATHETER Dialysis Last administered on 09/05/18 15:28; Admin Dose 3,000 UNIT; Start 08/12/18 at 14:30 Labetalol HCl (Labetalol) 10 mg Q4H PRN IV ELEVATED SYSTOLIC BP > 180 Last administered on 08/20/18 16:54; Admin Dose 10 MG; Start 08/14/18 at 19:00 Hydralazine HCl (Apresoline) 20 mg Q2 PRN IV ELEVATED SYSTOLIC BP Last administered on 09/04/18 08:58; Admin Dose 20 MG; Start 08/16/18 at 08:00 Clopidogrel Bisulfate (plaVIX) 75 mg DAILY NGT Last administered on 09/06/18 10:08; Admin Dose 75 MG; Start 08/18/18 at 13:30 Rifaximin (Xifaxan) 200 mg TID PO Last administered on 09/06/18 23:03; Admin Dose 200 MG; Start 08/19/18 at 13:00 Sevelamer Carbonate (Renvela) 2.4 gm WITH MEALS GTB Last administered on 09/07/18 09:05; Admin Dose 2.4 GM; Start 08/23/18 at 11:30 Ondansetron HCl (Zofran Inj) 4 mg Q4H PRN IV NAUSEA AND/OR VOMITING Last administered on 09/02/18 12:57; Admin Dose 4 MG; Start 08/23/18 at 14:30 Lactobacillus Acidophilus/ Rhamnosus (Culturelle) 1 cap TID GTB Last administered on 09/06/18 22:55; Admin Dose 1 CAP; Start 08/24/18 at 13:00 Albumin Human 100 ml @ 100 mls/hr WITH DIALYSIS PRN IV SBP <90 DURING DIALYSIS; Start 08/26/18 at 12:00 Sodium Chloride (NS) -To prime the dialy... DIRECTED FOR HD PRN IV HD; Start 08/26/18 at 12:00 Nitroglycerin (Nitroglycerin 2% Oint) 0.5 inch Q6 PRN TD CHEST PAIN; Start 08/27/18 at 00:30 Lorazepam (Ativan) 1 mg Q4H PRN IV ANXIETY Last administered on 08/27/18at 04:14; Admin Dose 1 MG; Start 08/27/18 at 04:30 Eye Lubricant (Artificial Tears Oph) 2 drop Q2H PRN BOTH EYES dry eyes; Start 08/28/18 at 01:30 Heparin Sodium (Porcine) (Heparin (5000 Units/1ml)) 5,000 unit Q8 SC Last administered on 09/07/18at 07:42; Admin Dose 5,000 UNIT; Start 08/29/18 at 14:00 Epoetin Jarrell-epbx (RETACRIT(esrd)) 10,000 unit MoWeFr@1700 SC Last administered on 09/05/18at 17:17; Admin Dose 10,000 UNIT; Start 08/29/18 at 17:00 Morphine Sulfate (morphine) 3 mg Q1H PRN GTB PAIN NOT RELIEVED BY OTHERS Last administered on 09/06/18at 16:15; Admin Dose 3 MG; Start 08/29/18 at 12:00 Lansoprazole (Prevacid) 30 mg DAILY@06 GTB Last administered on 09/07/18at 06:47; Admin Dose 30 MG; Start 08/30/18 at 06:00 Carvedilol (Coreg) 25 mg TID PO Last administered on 09/06/18at 23:03; Admin Dose 25 MG; Start 08/30/18 at 09:00 Oxycodone HCl (Roxicodone) 5 mg Q4H PRN PO MODERATE PAIN LEVEL 4-6 Last administered on 09/02/18at 13:01; Admin Dose 5 MG; Start 09/01/18 at 10:00 Miscellaneous Information (* Miscellaneous Pharmacy Order) [facility] ORDER WILL ... Q12 XX ; Start 09/05/18 at 10:00 Assessment/Plan Hospital Course (Demo Recall) 1. s/p V. fib cardiac arrest 2. Acute myocardial infarction 3. Status post emergent PCI of the 100% occluded LAD as well as PTCA of the diagonal and PCI LCX/ OM , sp PCI RCA 09/04 4. Diabetes 5. Respiratory failure status post intubation on the vent 6. Hypertension 7. Renal failure : acute on chronic 8. Likely history of congestive heart failure 9. Dyslipidemia 10. Encephalopathy: Clear anoxic brain injury on hypothermia protocol 11. Morbid obesity 12. Anemia 13. elevated LFT 14. fever, bacteremia pneumonia 15. Malnutrition, anasarca . 16. septic shock and staph aureus bacteremia 17. oropharyngeal bleeding 18. CVA Recommendations: Continue with aspirin/ plavix Antibiotic management as per ID recommendation HD as per renal Vent support respiratory care as per internal medicine and pulmonary consultants. s/p Trach now. weaning as tolerated. cont Coreg as tolerated/needed Transfusion prn given her severe anemia and MS/ VF tele monitoring DVT prophylaxis CODE STATUS full code Thank you for his referral. We will continue to follow along with you as needed over the weekend LOIS JOHNSON MD [facility] LOIS JOHNSON MD Sep 07, 2018 12:11
[2018-09-07] MEDS: MULTIVITAMINS 30 ML CUP NGT SCH (13:16)
[2018-09-07] MEDS: ZINC SULFATE 220 MG CAP NGT SCH (13:16)
[2018-09-07] MEDS: FOLIC ACID 1 MG TAB NGT SCH (13:18)
[2018-09-07] MEDS: ASCORBIC ACID 500 MG TAB NGT SCH (13:18)
--- NOTE | 2018-09-07 13:50 | CONS ---
Consult Date/Type/Reason Admit Date/Time Aug 04, 2018 at 23:10 Initial Consult Date 08/05/18 Type of Consult Pulmonary Requesting Provider: HARPAL AGGARWAL MD Date/Time of Note DATE: 09/07/18 TIME: 13:49 Subjective All patient comfortable. Requesting to stay on mechanical ventilation during hemodialysis. Objective Vital Signs Date Temp Pulse Resp B/P (MAP) Pulse Ox O2 O2 Flow FiO2 Time Delivery Rate 09/07/18 100 12:38 09/07/18 24 98 Aerosol 5.0 28 12:34 Mask 09/07/18 98.0 137/67 11:53 (90) Intake and Output 09/06/18 09/06/18 09/07/18 1515:00 23:00 07:00 IntakeIntake Total 560 ml 560 ml OutputOutput Total 250 ml 350 ml BalanceBalance 310 ml 210 ml Exam GENERAL: Pleasant young lady on mechanical ventilation via tracheostomy VITAL SIGNS: per chart NECK: Supple. No JVD or lymphadenopathy. CARDIAC EXAM: S1, S2. No added sounds or murmurs. CHEST: clear bilaterally, No added sounds, rales or wheezes ABDOMEN: Soft, nontender. No guarding or rebound. EXTREMITIES: No cyanosis, clubbing or edema. NEUROLOGIC: Generalized weakness. No focal deficits. Vent Setting Ventilator Support Mode: SIMV Fraction of Inspired Oxygen pe: 28 Positive End Expiratory Pressu: 5.0 Results/Medications Result Diagram: 09/07/18 0700 09/07/18 0700 Results 24 hrs Laboratory Tests Test 09/07/18 07:00 White Blood Count 10.2 Red Blood Count 2.92 L Hemoglobin 8.4 L Hematocrit 27.8 L Mean Corpuscular Volume 95.2 Mean Corpuscular Hemoglobin 28.8 L Mean Corpuscular Hemoglobin Concent 30.2 L Red Cell Distribution Width 17.7 H Platelet Count 229 Mean Platelet Volume 12.9 H Immature Granulocytes % 4.000 H Neutrophils % 81.2 H Lymphocytes % 12.1 L Monocytes % 2.2 Eosinophils % 0.0 Basophils % 0.5 Nucleated Red Blood Cells % 0.2 H Immature Granulocytes # 0.410 H Neutrophils # 8.3 H Lymphocytes # 1.2 Monocytes # 0.2 L Eosinophils # 0.0 Basophils # 0.1 Nucleated Red Blood Cells # 0.0 Sodium Level 133 L Potassium Level 4.9 Chloride Level 98 Carbon Dioxide Level 26 Anion Gap 9 Blood Urea Nitrogen 50 H Creatinine 3.40 H Glucose Level 140 Calcium Level 10.8 H Phosphorus Level 6.5 H Magnesium Level 2.5 Albumin 3.3 Medications Current Medications Atorvastatin Calcium (Lipitor) 80 mg DAILY@21 PO Last administered on 09/06/18 23:06; Admin Dose 80 MG; Start 08/05/18 at 21:00 Miscellaneous Information 1 ea NOTE XX ; Start 08/05/18 at 09:00 Acetaminophen (Tylenol Liquid) 650 mg Q4H PRN PO ELEVATED TEMPERATURE Last administered on 09/01/18 00:29; Admin Dose 650 MG; Start 08/05/18 at 11:00; Status Hold Aspirin (Aspirin) 81 mg DAILY NGT Last administered on 09/07/18 13:21; Admin Dose 81 MG; Start 08/06/18 at 09:00 Multivitamins (Multivitamin) 30 ml DAILY NGT Last administered on 09/07/18 13:16; Admin Dose 30 ML; Start 08/09/18 at 09:00 Zinc Sulfate (Zinc Sulfate) 220 mg DAILY NGT Last administered on 09/07/18 13:16; Admin Dose 220 MG; Start 08/09/18 at 09:00 Folic Acid (Folic Acid) 1 mg DAILY NGT Last administered on 09/07/18 13:18; Admin Dose 1 MG; Start 08/09/18 at 09:00 Ascorbic Acid (Vitamin C) 500 mg DAILY NGT Last administered on 09/07/18 13:18; Admin Dose 500 MG; Start 08/09/18 at 09:00 Albuterol (Ventolin Hfa) 4 puff Q6HWA RESP THERAPY INH Last administered on 09/07/18 08:03; Admin Dose 4 PUFF; Start 08/09/18 at 14:00 Ipratropium [place] (Atrovent Hfa) 4 puff Q6H RESP THERAPY INH Last administered on 09/07/18 08:03; Admin Dose 4 PUFF; Start 08/09/18 at 14:00 IV Flush (NS 10 ml) 10 ml PRN PRN IV IV PROTOCOL; Start 08/11/18 at 16:30 Heparin Sodium (Porcine) (Heparin (1000 Units/ml)) 3,000 unit PRN PRN CATHETER Dialysis Last administered on 09/05/18 15:28; Admin Dose 3,000 UNIT; Start 08/12/18 at 14:30 Labetalol HCl (Labetalol) 10 mg Q4H PRN IV ELEVATED SYSTOLIC BP > 180 Last administered on 08/20/18 16:54; Admin Dose 10 MG; Start 08/14/18 at 19:00 Hydralazine HCl (Apresoline) 20 mg Q2 PRN IV ELEVATED SYSTOLIC BP Last administered on 09/04/18 08:58; Admin Dose 20 MG; Start 08/16/18 at 08:00 Clopidogrel Bisulfate (plaVIX) 75 mg DAILY NGT Last administered on 09/07/18 13:21; Admin Dose 75 MG; Start 08/18/18 at 13:30 Rifaximin (Xifaxan) 200 mg TID PO Last administered on 09/07/18 13:17; Admin Dose 200 MG; Start 08/19/18 at 13:00 Sevelamer Carbonate (Renvela) 2.4 gm WITH MEALS GTB Last administered on 09/07/18 13:18; Admin Dose 2.4 GM; Start 08/23/18 at 11:30 Ondansetron HCl (Zofran Inj) 4 mg Q4H PRN IV NAUSEA AND/OR VOMITING Last administered on 09/02/18 12:57; Admin Dose 4 MG; Start 08/23/18 at 14:30 Lactobacillus Acidophilus/ Rhamnosus (Culturelle) 1 cap TID GTB Last administered on 09/07/18 13:17; Admin Dose 1 CAP; Start 08/24/18 at 13:00 Albumin Human 100 ml @ 100 mls/hr WITH DIALYSIS PRN IV SBP <90 DURING DIALYSIS; Start 08/26/18 at 12:00 Sodium Chloride (NS) -To prime the dialy... DIRECTED FOR HD PRN IV HD; Start 08/26/18 at 12:00 Nitroglycerin (Nitroglycerin 2% Oint) 0.5 inch Q6 PRN TD CHEST PAIN; Start 08/27/18 at 00:30 Lorazepam (Ativan) 1 mg Q4H PRN IV ANXIETY Last administered on 08/27/18 04:14; Admin Dose 1 MG; Start 08/27/18 at 04:30 Eye Lubricant (Artificial Tears Oph) 2 drop Q2H PRN BOTH EYES dry eyes; Start 08/28/18 at 01:30 Heparin Sodium (Porcine) (Heparin (5000 Units/1ml)) 5,000 unit Q8 SC Last administered on 09/07/18at 07:42; Admin Dose 5,000 UNIT; Start 08/29/18 at 14:00 Epoetin Jarrell-epbx (RETACRIT(esrd)) 10,000 unit MoWeFr@1700 SC Last administered on 09/05/18at 17:17; Admin Dose 10,000 UNIT; Start 08/29/18 at 17:00 Morphine Sulfate (morphine) 3 mg Q1H PRN GTB PAIN NOT RELIEVED BY OTHERS Last administered on 09/06/18at 16:15; Admin Dose 3 MG; Start 08/29/18 at 12:00 Lansoprazole (Prevacid) 30 mg DAILY@06 GTB Last administered on 09/07/18at 06:47; Admin Dose 30 MG; Start 08/30/18 at 06:00 Carvedilol (Coreg) 25 mg TID PO Last administered on 09/07/18at 13:17; Admin Dose 25 MG; Start 08/30/18 at 09:00 Oxycodone HCl (Roxicodone) 5 mg Q4H PRN PO MODERATE PAIN LEVEL 4-6 Last administered on 09/02/18at 13:01; Admin Dose 5 MG; Start 09/01/18 at 10:00 Miscellaneous Information (* Miscellaneous Pharmacy Order) ASPIRIN ORDER WILL ... Q12 XX ; Start 09/05/18 at 10:00 Assessment/Plan Hospital Course (Demo Recall) IMP: 1. Ventricular Fibrillation Arrest--s/p ROSC 2/2 STEMI s/p PCI status post hypothermia protocol. Multivessel coronary artery disease status post stent placement x3 2. STEMI, Status post stent x3 placement. 3. CVA multiple infarcts noted. 4. Hypoxemic respiratory failure no status post tracheostomy placement 5. HUSEYIN--likely ATN continues hemodialysis 6. Ischemic hepatopathy--2/2 arrest 7. Resolving encephalopathy RECS: 1. DC mechanical ventilation continue trach collar as tolerated, speech therapy trials for PMV and advancing diet. 2. Trach site care. 3. Encourage out of bed. 4. PEG tube feeding 5. Hemodialysis as tolerated [facility]INO ANDERSON MD, [facility] Sep 07, 2018 13:50
--- NOTE | 2018-09-07 14:15 | CONS ---
Assessment/Plan Assessment/Plan Hospital Course (Demo Recall) Alert, feels goods, no fevers, family present Antimicrobials: none Microbiology: Urine culture on admission grew E. coli and Proteus, blood cultures growing oxacillin sensitive staph aureus endotracheal aspirate also growing oxacillin sensitive staph aureus ear drainage preliminary growing staph aureus, repeat blood cultures 2 days ago negative Indwelling: Trach, PEG, right femoral Devan, right upper extremity PICC line Physical examination: Obese well-developed middle-aged woman who is intubated in no distress. Head atraumatic normocephalic neck is supple chest rise symmetrical breath sounds diminished bases. Heart: S1-S2. Abdomen distended. Bowel sounds hypoactive. Extremities cyanotic Assessment: 1. S/p sepsis 2. Healthcare associated pneumonia==> treated 3. S/p Oxacillin sensitive staph aureus bacteremia 2 to #3 4. S/p polymicrobial UTI 5. STEMI, status post stent 6. Status post V. fib arrest 7. Acute renal failure, started on hemodialysis 8. 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 Anemia and thrombocytopenia 10. Acute sinusitis and bilateral mastoiditis 11. Morbid obesity 12. Diarrhea, r/o C dif Plan: Overall doing much better, continue observing off abx, card/pulmonary rec- s Consultation Date/Type/Reason Admit Date/Time Aug 04, 2018 at 23:10 Initial Consult Date 08/12/18 Type of Consult id Requesting Provider: HARPAL AGGARWAL MD Date/Time of Note DATE: 09/07/18 TIME: 14:14 Exam/Review of Systems Exam Vitals Vital Signs Date Temp Pulse Resp B/P (MAP) Pulse Ox O2 O2 Flow FiO2 Time Delivery Rate 09/07/18 100 12:38 09/07/18 24 98 Aerosol 5.0 28 12:34 Mask 09/07/18 98.0 137/67 11:53 (90) Intake and Output 09/06/18 09/06/18 09/07/18 1515:00 23:00 07:00 IntakeIntake Total 560 ml 560 ml OutputOutput Total 250 ml 350 ml BalanceBalance 310 ml 210 ml Results Result Diagram: 09/07/18 0700 09/07/18 0700 Results 24hrs Laboratory Tests Test 09/07/18 07:00 White Blood Count 10.2 Red Blood Count 2.92 L Hemoglobin 8.4 L Hematocrit 27.8 L Mean Corpuscular Volume 95.2 Mean Corpuscular Hemoglobin 28.8 L Mean Corpuscular Hemoglobin Concent 30.2 L Red Cell Distribution Width 17.7 H Platelet Count 229 Mean Platelet Volume 12.9 H Immature Granulocytes % 4.000 H Neutrophils % 81.2 H Lymphocytes % 12.1 L Monocytes % 2.2 Eosinophils % 0.0 Basophils % 0.5 Nucleated Red Blood Cells % 0.2 H Immature Granulocytes # 0.410 H Neutrophils # 8.3 H Lymphocytes # 1.2 Monocytes # 0.2 L Eosinophils # 0.0 Basophils # 0.1 Nucleated Red Blood Cells # 0.0 Sodium Level 133 L Potassium Level 4.9 Chloride Level 98 Carbon Dioxide Level 26 Anion Gap 9 Blood Urea Nitrogen 50 H Creatinine 3.40 H Glucose Level 140 Calcium Level 10.8 H Phosphorus Level 6.5 H Magnesium Level 2.5 Albumin 3.3 Medications Medication Current Medications Atorvastatin Calcium (Lipitor) 80 mg DAILY@21 PO Last administered on 09/06/18at 23:06; Admin Dose 80 MG; Start 08/05/18 at 21:00 Miscellaneous Information 1 ea NOTE XX ; Start 08/05/18 at 09:00 Acetaminophen (Tylenol Liquid) 650 mg Q4H PRN PO ELEVATED TEMPERATURE Last administered on 09/01/18 00:29; Admin Dose 650 MG; Start 08/05/18 at 11:00; Status Hold Aspirin (Aspirin) 81 mg DAILY NGT Last administered on 09/07/18 13:21; Admin Dose 81 MG; Start 08/06/18 at 09:00 Multivitamins (Multivitamin) 30 ml DAILY NGT Last administered on 09/07/18 13:16; Admin Dose 30 ML; Start 08/09/18 at 09:00 Zinc Sulfate (Zinc Sulfate) 220 mg DAILY NGT Last administered on 09/07/18 13:16; Admin Dose 220 MG; Start 08/09/18 at 09:00 Folic Acid (Folic Acid) 1 mg DAILY NGT Last administered on 09/07/18 13:18; Admin Dose 1 MG; Start 08/09/18 at 09:00 Ascorbic Acid (Vitamin C) 500 mg DAILY NGT Last administered on 09/07/18 13:18; Admin Dose 500 MG; Start 08/09/18 at 09:00 Albuterol (Ventolin Hfa) 4 puff Q6HWA RESP THERAPY INH Last administered on 09/07/18 08:03; Admin Dose 4 PUFF; Start 08/09/18 at 14:00 Ipratropium [place] (Atrovent Hfa) 4 puff Q6H RESP THERAPY INH Last administered on 09/07/18 08:03; Admin Dose 4 PUFF; Start 08/09/18 at 14:00 IV Flush (NS 10 ml) 10 ml PRN PRN IV IV PROTOCOL; Start 08/11/18 at 16:30 Heparin Sodium (Porcine) (Heparin (1000 Units/ml)) 3,000 unit PRN PRN CATHETER Dialysis Last administered on 09/05/18 15:28; Admin Dose 3,000 UNIT; Start 08/12/18 at 14:30 Labetalol HCl (Labetalol) 10 mg Q4H PRN IV ELEVATED SYSTOLIC BP > 180 Last administered on 08/20/18 16:54; Admin Dose 10 MG; Start 08/14/18 at 19:00 Hydralazine HCl (Apresoline) 20 mg Q2 PRN IV ELEVATED SYSTOLIC BP Last administered on 09/04/18 08:58; Admin Dose 20 MG; Start 08/16/18 at 08:00 Clopidogrel Bisulfate (plaVIX) 75 mg DAILY NGT Last administered on 09/07/18 13:21; Admin Dose 75 MG; Start 08/18/18 at 13:30 Rifaximin (Xifaxan) 200 mg TID PO Last administered on 09/07/18 13:17; Admin Dose 200 MG; Start 08/19/18 at 13:00 Sevelamer Carbonate (Renvela) 2.4 gm WITH MEALS GTB Last administered on 09/07/18 13:18; Admin Dose 2.4 GM; Start 08/23/18 at 11:30 Ondansetron HCl (Zofran Inj) 4 mg Q4H PRN IV NAUSEA AND/OR VOMITING Last admi nistered on 09/02/18 12:57; Admin Dose 4 MG; Start 08/23/18 at 14:30 Lactobacillus Acidophilus/ Rhamnosus (Culturelle) 1 cap TID GTB Last administered on 09/07/18 13:17; Admin Dose 1 CAP; Start 08/24/18 at 13:00 Albumin Human 100 ml @ 100 mls/hr WITH DIALYSIS PRN IV SBP <90 DURING DIALYSIS; Start 08/26/18 at 12:00 Sodium Chloride (NS) -To prime the dialy... DIRECTED FOR HD PRN IV HD; Start 08/26/18 at 12:00 Nitroglycerin (Nitroglycerin 2% Oint) 0.5 inch Q6 PRN TD CHEST PAIN; Start 08/27/18 at 00:30 Lorazepam (Ativan) 1 mg Q4H PRN IV ANXIETY Last administered on 08/27/18at 04:14; Admin Dose 1 MG; Start 08/27/18 at 04:30 Eye Lubricant (Artificial Tears Oph) 2 drop Q2H PRN BOTH EYES dry eyes; Start 08/28/18 at 01:30 Heparin Sodium (Porcine) (Heparin (5000 Units/1ml)) 5,000 unit Q8 SC Last administered on 09/07/18at 07:42; Admin Dose 5,000 UNIT; Start 08/29/18 at 14:00 Epoetin Jarrell-epbx (RETACRIT(esrd)) 10,000 unit MoWeFr@1700 SC Last administered on 09/05/18at 17:17; Admin Dose 10,000 UNIT; Start 08/29/18 at 17:00 Morphine Sulfate (morphine) 3 mg Q1H PRN GTB PAIN NOT RELIEVED BY OTHERS Last administered on 09/06/18at 16:15; Admin Dose 3 MG; Start 08/29/18 at 12:00 Lansoprazole (Prevacid) 30 mg DAILY@06 GTB Last administered on 09/07/18at 06:47; Admin Dose 30 MG; Start 08/30/18 at 06:00 Carvedilol (Coreg) 25 mg TID PO Last administered on 09/07/18 13:17; Admin Dose 25 MG; Start 08/30/18 at 09:00 Oxycodone HCl (Roxicodone) 5 mg Q4H PRN PO MODERATE PAIN LEVEL 4-6 Last adminis tered on 09/02/18at 13:01; Admin Dose 5 MG; Start 09/01/18 at 10:00 Miscellaneous Information (* Miscellaneous Pharmacy Order) ASPIRIN ORDER WILL ... Q12 XX ; Start 09/05/18 at 10:00 WIN LUCIANO NP Sep 07, 2018 14:15
--- NOTE | 2018-09-07 14:31 | PN ---
Date/Time of Note Date/Time of Note DATE: 09/07/18 TIME: 14:28 Assessment/Plan VTE Prophylaxis Risk score (from Ns)>0 risk: 6 SCD applied (from Ns): Yes Pharmacological prophylaxis: NA/contraindicated Pharm contraindication: anticoag not tolerated Lines/Catheters IV [facility] Type [facility]from [facility]): PICC Line Central line still needed: Yes Urinary Cath still in place: Yes Reason Cath still needed: urinary retention Assessment/Plan Assessment/Plan 1. CAD s/p PCI x3- stable - continue current care - Cardiology on board and appreciate recommendations. Will need to continue aspirin for life and DAPT for 1 year - s/p emergent Cath 08/05 with successful PTCA and stenting of proximal and mid LAD, PTCA of the large first diagonal and thrombectomy of the LAD - Repeat PCI on 08/07 performed with stenting to LCx - Repeat PCI on 09/04 with stenting ostial/proximal right coronary artery 2. Acute hypoxic respiratory failure- improving - Speech consulted for trials of PMV and advancing diet - will keep on cool mist as tolerated - Pulm on board and appreciate recommendations. 3. Acute toxic/metabolic encephalopathy- resolved - Patient back to baseline and doing well. - Neurology input appreciated and will reconsult if needed 4. Bilateral CVA - PT/OT on board - Found on MRI, likely thromboembolic secondary to cardiopulmonary arrest per neurology - Continue on aspirin/Plavix and Lipitor 5. Anemia, blood loss and renal disease- stable - Hgb remains stable, transfuse as needed 6. Bilateral Pneumonia- resolved - ID on board and appreciate recommendations. Monitor off antibiotics 7. Septic shock secondary to PNA and bacteremia- resolved - Blood cultures and sputum culture results noted. - ID on board 8. Renal failure on HD - Nephrology on board and appreciate recommendations. Continue HD - secondary to septic shock, ATN vs prerenal vs contrast induced nephropathy 9. Diabetes - A1c noted - ISS not needed 10. S/p V-fib cardiac arrest secondary to STEMI - Completed hypothermia protocol 11. Disposition - CM on board for placement. Speech on board for PMV and advancing diet. once off vent, will be easier to place Result Diagram: 09/07/18 0700 09/07/18 0700 Results 24hrs Laboratory Tests Test 09/07/18 07:00 White Blood Count 10.2 Red Blood Count 2.92 L Hemoglobin 8.4 L Hematocrit 27.8 L Mean Corpuscular Volume 95.2 Mean Corpuscular Hemoglobin 28.8 L Mean Corpuscular Hemoglobin Concent 30.2 L Red Cell Distribution Width 17.7 H Platelet Count 229 Mean Platelet Volume 12.9 H Immature Granulocytes % 4.000 H Neutrophils % 81.2 H Lymphocytes % 12.1 L Monocytes % 2.2 Eosinophils % 0.0 Basophils % 0.5 Nucleated Red Blood Cells % 0.2 H Immature Granulocytes # 0.410 H Neutrophils # 8.3 H Lymphocytes # 1.2 Monocytes # 0.2 L Eosinophils # 0.0 Basophils # 0.1 Nucleated Red Blood Cells # 0.0 Sodium Level 133 L Potassium Level 4.9 Chloride Level 98 Carbon Dioxide Level 26 Anion Gap 9 Blood Urea Nitrogen 50 H Creatinine 3.40 H Glucose Level 140 Calcium Level 10.8 H Phosphorus Level 6.5 H Magnesium Level 2.5 Albumin 3.3 Subjective 24 Hr Interval Summary Free Text/Dictation Patient doing well and denies any acute issues. Requesting to stay on vent while on HD. Discussed if can get off vent, placement would be easier. Exam/Review of Systems Exam Vitals Vital Signs Date Temp Pulse Resp B/P (MAP) Pulse Ox O2 O2 Flow FiO2 Time Delivery Rate 09/07/18 100 12:38 09/07/18 24 98 Aerosol 5.0 28 12:34 Mask 09/07/18 98.0 137/67 11:53 (90) Intake and Output 09/06/18 09/06/18 09/07/18 1515:00 23:00 07:00 IntakeIntake Total 560 ml 560 ml OutputOutput Total 250 ml 350 ml BalanceBalance 310 ml 210 ml Exam General: Patient is laying in bed. no acute distress Neck: Supple, trach Respiratory: Diminished breath sounds. no wheezing Cardiovascular: regular rate and rhythm, no obvious murmurs Gastrointestinal: soft, non-tender to palpation, bowel sounds heard. PEG in place Neurological: Able to follow commands and move all extremities Skin: No new skin lesions Results Results 24hrs Laboratory Tests Test 09/07/18 07:00 White Blood Count 10.2 Red Blood Count 2.92 L Hemoglobin 8.4 L Hematocrit 27.8 L Mean Corpuscular Volume 95.2 Mean Corpuscular Hemoglobin 28.8 L Mean Corpuscular Hemoglobin Concent 30.2 L Red Cell Distribution Width 17.7 H Platelet Count 229 Mean Platelet Volume 12.9 H Immature Granulocytes % 4.000 H Neutrophils % 81.2 H Lymphocytes % 12.1 L Monocytes % 2.2 Eosinophils % 0.0 Basophils % 0.5 Nucleated Red Blood Cells % 0.2 H Immature Granulocytes # 0.410 H Neutrophils # 8.3 H Lymphocytes # 1.2 Monocytes # 0.2 L Eosinophils # 0.0 Basophils # 0.1 Nucleated Red Blood Cells # 0.0 Sodium Level 133 L Potassium Level 4.9 Chloride Level 98 Carbon Dioxide Level 26 Anion Gap 9 Blood Urea Nitrogen 50 H Creatinine 3.40 H Glucose Level 140 Calcium Level 10.8 H Phosphorus Level 6.5 H Magnesium Level 2.5 Albumin 3.3 Medications Medication Current Medications Atorvastatin Calcium (Lipitor) 80 mg DAILY@21 PO Last administered on 09/06/18 23:06; Admin Dose 80 MG; Start 08/05/18 at 21:00 Miscellaneous Information 1 ea NOTE XX ; Start 08/05/18 at 09:00 Acetaminophen (Tylenol Liquid) 650 mg Q4H PRN PO ELEVATED TEMPERATURE Last administered on 09/01/18 00:29; Admin Dose 650 MG; Start 08/05/18 at 11:00; Status Hold Aspirin (Aspirin) 81 mg DAILY NGT Last administered on 09/07/18 13:21; Admin Dose 81 MG; Start 08/06/18 at 09:00 Multivitamins (Multivitamin) 30 ml DAILY NGT Last administered on 09/07/18 13:16; Admin Dose 30 ML; Start 08/09/18 at 09:00 Zinc Sulfate (Zinc Sulfate) 220 mg DAILY NGT Last administered on 09/07/18 1 3:16; Admin Dose 220 MG; Start 08/09/18 at 09:00 Folic Acid (Folic Acid) 1 mg DAILY NGT Last administered on 09/07/18 13:18; Admin Dose 1 MG; Start 08/09/18 at 09:00 Ascorbic Acid (Vitamin C) 500 mg DAILY NGT Last administered on 09/07/18 13:18; Admin Dose 500 MG; Start 08/09/18 at 09:00 Albuterol (Ventolin Hfa) 4 puff Q6HWA RESP THERAPY INH Last administered on 09/07/18 08:03; Admin Dose 4 PUFF; Start 08/09/18 at 14:00 Ipratropium [place] (Atrovent Hfa) 4 puff Q6H RESP THERAPY INH Last administered on 09/07/18 08:03; Admin Dose 4 PUFF; Start 08/09/18 at 14:00 IV Flush (NS 10 ml) 10 ml PRN PRN IV IV PROTOCOL; Start 08/11/18 at 16:30 Heparin Sodium (Porcine) (Heparin (1000 Units/ml)) 3,000 unit PRN PRN CATHETER Dialysis Last administered on 09/05/18 15:28; Admin Dose 3,000 UNIT; Start 08/12/18 at 14:30 Labetalol HCl (Labetalol) 10 mg Q4H PRN IV ELEVATED SYSTOLIC BP > 180 Last administered on 08/20/18 16:54; Admin Dose 10 MG; Start 08/14/18 at 19:00 Hydralazine HCl (Apresoline) 20 mg Q2 PRN IV ELEVATED SYSTOLIC BP Last administered on 09/04/18 08:58; Admin Dose 20 MG; Start 08/16/18 at 08:00 Clopidogrel Bisulfate (plaVIX) 75 mg DAILY NGT Last administered on 09/07/18 13:21; Admin Dose 75 MG; Start 08/18/18 at 13:30 Rifaximin (Xifaxan) 200 mg TID PO Last administered on 09/07/18 13:17; Admin Dose 200 MG; Start 08/19/18 at 13:00 Sevelamer Carbonate (Renvela) 2.4 gm WITH MEALS GTB Last administered on 09/07/18 13:18; Admin Dose 2.4 GM; Start 08/23/18 at 11:30 Ondansetron HCl (Zofran Inj) 4 mg Q4H PRN IV NAUSEA AND/OR VOMITING Last administered on 09/02/18 12:57; Admin Dose 4 MG; Start 08/23/18 at 14:30 Lactobacillus Acidophilus/ Rhamnosus (Culturelle) 1 cap TID GTB Last administered on 09/07/18 13:17; Admin Dose 1 CAP; Start 08/24/18 at 13:00 Albumin Human 100 ml @ 100 mls/hr WITH DIALYSIS PRN IV SBP <90 DURING DIALYSIS; Start 08/26/18 at 12:00 Sodium Chloride (NS) -To prime the dialy... DIRECTED FOR HD PRN IV HD; Start 08/26/18 at 12:00 Nitroglycerin (Nitroglycerin 2% Oint) 0.5 inch Q6 PRN TD CHEST PAIN; Start 08/27/18 at 00:30 Lorazepam (Ativan) 1 mg Q4H PRN IV ANXIETY Last administered on 08/27/18at 04:14; Admin Dose 1 MG; Start 08/27/18 at 04:30 Eye Lubricant (Artificial Tears Oph) 2 drop Q2H PRN BOTH EYES dry eyes; Start 08/28/18 at 01:30 Heparin Sodium (Porcine) (Heparin (5000 Units/1ml)) 5,000 unit Q8 SC Last administered on 09/07/18at 07:42; Admin Dose 5,000 UNIT; Start 08/29/18 at 14:00 Epoetin Jarrell-epbx (RETACRIT(esrd)) 10,000 unit MoWeFr@1700 SC Last administered on 09/05/18at 17:17; Admin Dose 10,000 UNIT; Start 08/29/18 at 17:00 Morphine Sulfate (morphine) 3 mg Q1H PRN GTB PAIN NOT RELIEVED BY OTHERS Last administered on 09/06/18at 16:15; Admin Dose 3 MG; Start 08/29/18 at 12:00 Lansoprazole (Prevacid) 30 mg DAILY@06 GTB Last administered on 09/07/18at 06:47; Admin Dose 30 MG; Start 08/30/18 at 06:00 Carvedilol (Coreg) 25 mg TID PO Last administered on 09/07/18at 13:17; Admin Dose 25 MG; Start 08/30/18 at 09:00 Oxycodone HCl (Roxicodone) 5 mg Q4H PRN PO MODERATE PAIN LEVEL 4-6 Last administered on 09/02/18at 13:01; Admin Dose 5 MG; Start 09/01/18 at 10:00 Miscellaneous Information (* Miscellaneous Pharmacy Order) ASPIRIN ORDER WILL ... Q12 XX ; Start 09/05/18 at 10:00 THOMAS RILEY MD Sep 07, 2018 14:31
[2018-09-07] MEDS: EPOETIN ALFA-EPBX (ESRD) 10,000 UNIT/ML VIAL SC SCH (17:28)
[2018-09-07] MEDS: ALBUTEROL 0.083% (NEB) 2.5 MG/3 ML AMP HHN SCH (20:18)
[2018-09-07] MEDS: IPRATROPIUM (NEB) 0.5 MG/2.5 ML AMP HHN SCH (20:18)
[2018-09-07] MEDS: ATORVASTATIN 80 MG TAB PO SCH (21:10)
[2018-09-08] VITALS (10 sets, daily range): BP systolic 140–165; BP diastolic 73–92; PULSE 90–98; RESP 16–20
[2018-09-08] MEDS: ALBUTEROL 0.083% (NEB) 2.5 MG/3 ML AMP HHN SCH ×4 (01:40→19:34)
[2018-09-08] MEDS: LANSOPRAZOLE 30 MG CAP GTB SCH (06:01)
[2018-09-08] MEDS: HEPARIN 5,000 UNIT/1 ML VIAL SC SCH ×3 (06:06→21:55)
[2018-09-08] MEDS: IPRATROPIUM (NEB) 0.5 MG/2.5 ML AMP HHN SCH ×3 (08:00→19:34)
[2018-09-08] MEDS ORDERED: POTASSIUM CHLORIDE 20 MEQ POWDER FOR ORAL SOLN GTB ONE (09:00)
--- NOTE | 2018-09-08 10:03 | CONS ---
Assessment/Plan Assessment/Plan Assessment/Plan (Daily) Assessment and recommendations; 1. Patient status post cardiac arrest, status post hypothermia protocol as well as coronary intervention with stenting. 2. Status post tracheostomy because of failure to be weaned off from invasive mechanical ventilation, patient however doing very well on T-piece. Still having significant secretions precluding tracheostomy capping trials. 3. Chronic renal failure, on hemodialysis. 4. Anemia. 5. Status post treatment for bilateral pneumonia. 6. Marked improvement in encephalopathy. 7. Multiple small CVAs. No obvious neurological deficit though. Continue current supportive care. Patient responding well to current treatment regimen. Consider transfer to rehab center. Prognosis is good. Consultation Date/Type/Reason Admit Date/Time Aug 04, 2018 at 23:10 Initial Consult Date 08/17/18 Type of Consult Pulmonary/critical care Requesting Provider: HARPAL AGGARWAL MD Date/Time of Note DATE: 09/08/18 TIME: 10:00 24 HR Interval Summary Free Text/Dictation Patient's condition is stable. Remains awake and alert. Has remained hemodynamically stable and also exhibiting stable pulmonary status on T-piece. General exam; young lady, awake alert, currently in no distress. Exam/Review of Systems Exam Vitals Vital Signs Date Temp Pulse Resp B/P (MAP) Pulse Ox O2 O2 Flow FiO2 Time Delivery Rate 09/08/18 100 5.0 28 08:12 09/08/18 95 20 Aerosol 08:10 T Tube 09/08/18 98.1 157/74 07:52 (101) Intake and Output 09/07/18 09/07/18 09/08/18 1515:00 23:00 07:00 IntakeIntake Total 560 ml 610 ml OutputOutput Total 2600 ml 100 ml 120 ml BalanceBalance -2600 ml 460 ml 490 ml Exam H EENT exam; supple neck, no JVD. No lymphadenopathy. Midline trachea. No thyromegaly. Tracheostomy in place. Patient has good dentition. No neck masses. Chest exam; clear to auscultation. S1-S2 audible, no murmurs. Regular rhythm. Abdomen exam; soft, no organomegaly. G-tube in place. Bowel sounds audible. Extremity exam; no peripheral edema or clubbing. RELATIONSHIP SPECIALIST exam; no focal deficit. Results Result Diagram: 09/08/18 0744 4/20/19 0744 Results 24hrs Laboratory Tests Test 09/08/18 07:44 White Blood Count 11.9 H Red Blood Count 2.92 L Hemoglobin 8.6 L Hematocrit 28.1 L Mean Corpuscular Volume 96.2 Mean Corpuscular Hemoglobin 29.5 Mean Corpuscular Hemoglobin Concent 30.6 L Red Cell Distribution Width 18.0 H Platelet Count 211 Mean Platelet Volume 12.2 H Immature Granulocytes % 2.000 H Neutrophils % 64.5 Lymphocytes % 23.0 Monocytes % 7.6 Eosinophils % 2.2 Basophils % 0.7 Nucleated Red Blood Cells % 0.0 Immature Granulocytes # 0.240 H Neutrophils # 7.7 H Lymphocytes # 2.7 Monocytes # 0.9 Eosinophils # 0.3 Basophils # 0.1 Nucleated Red Blood Cells # 0.0 Sodium Level 136 Potassium Level 3.3 L Chloride Level 98 Carbon Dioxide Level 28 Anion Gap 10 Blood Urea Nitrogen 40 H Creatinine 2.52 H Glucose Level 125 Calcium Level 10.5 H Phosphorus Level 5.9 H Magnesium Level 2.4 Albumin 3.3 Medications Medication Current Medications Atorvastatin Calcium (Lipitor) 80 mg DAILY@21 PO Last administered on 09/07/18at 21:10; Admin Dose 80 MG; Start 08/05/18 at 21:00 Miscellaneous Information 1 ea NOTE XX ; Start 08/05/18 at 09:00 Acetaminophen (Tylenol Liquid) 650 mg Q4H PRN PO ELEVATED TEMPERATURE Last administered on 09/01/18at 00:29; Admin Dose 650 MG; Start 08/05/18 at 11:00; Status Hold Aspirin (Aspirin) 81 mg DAILY NGT Last administered on 09/07/18 13:21; Admin Dose 81 MG; Start 08/06/18 at 09:00 Zinc Sulfate (Zinc Sulfate) 220 mg DAILY NGT Last administered on 09/07/18 13:16; Admin Dose 220 MG; Start 08/09/18 at 09:00 Folic Acid (Folic Acid) 1 mg DAILY NGT Last administered on 09/07/18 13:18; Admin Dose 1 MG; Start 08/09/18 at 09:00 Ascorbic Acid (Vitamin C) 500 mg DAILY NGT Last administered on 09/07/18 13:18; Admin Dose 500 MG; Start 08/09/18 at 09:00 IV Flush (NS 10 ml) 10 ml PRN PRN IV IV PROTOCOL; Start 08/11/18 at 16:30 Heparin Sodium (Porcine) (Heparin (1000 Units/ml)) 3,000 unit PRN PRN CATHETER Dialysis Last administered on 09/05/18at 15:28; Admin Dose 3,000 UNIT; Start 08/12/18 at 14:30 Labetalol HCl (Labetalol) 10 mg Q4H PRN IV ELEVATED SYSTOLIC BP > 180 Last administered on 08/20/18at 16:54; Admin Dose 10 MG; Start 08/14/18 at 19:00 Hydralazine HCl (Apresoline) 20 mg Q2 PRN IV ELEVATED SYSTOLIC BP Last administered on 09/04/18 08:58; Admin Dose 20 MG; Start 08/16/18 at 08:00 Clopidogrel Bisulfate (plaVIX) 75 mg DAILY NGT Last administered on 09/07/18 13:21; Admin Dose 75 MG; Start 08/18/18 at 13:30 Rifaximin (Xifaxan) 200 mg TID PO Last administered on 09/07/18 21:10; Admin Dose 200 MG; Start 08/19/18 at 13:00 Sevelamer Carbonate (Renvela) 2.4 gm WITH MEALS GTB Last administered on 09/07/18 17:26; Admin Dose 2.4 GM; Start 08/23/18 at 11:30 Ondansetron HCl (Zofran Inj) 4 mg Q4H PRN IV NAUSEA AND/OR VOMITING Last administered on 09/02/18at 12:57; Admin Dose 4 MG; Start 08/23/18 at 14:30 Lactobacillus Acidophilus/ Rhamnosus (Culturelle) 1 cap TID GTB Last adm inistered on 09/07/18at 21:11; Admin Dose 1 CAP; Start 08/24/18 at 13:00 Albumin Human 100 ml @ 100 mls/hr WITH DIALYSIS PRN IV SBP <90 DURING DIALYSIS; Start 08/26/18 at 12:00 Sodium Chloride (NS) -To prime the dialy... DIRECTED FOR HD PRN IV HD; Start 08/26/18 at 12:00 Nitroglycerin (Nitroglycerin 2% Oint) 0.5 inch Q6 PRN TD CHEST PAIN; Start 08/27/18 at 00:30 Lorazepam (Ativan) 1 mg Q4H PRN IV ANXIETY Last administered on 08/27/18 04:14; Admin Dose 1 MG; Start 08/27/18 at 04:30 Eye Lubricant (Artificial Tears Oph) 2 drop Q2H PRN BOTH EYES dry eyes; Start 08/28/18 at 01:30 Heparin Sodium (Porcine) (Heparin (5000 Units/1ml)) 5,000 unit Q8 SC Last administered on 09/08/18 06:06; Admin Dose 5,000 UNIT; Start 08/29/18 at 14:00 Epoetin Jarrell-epbx (RETACRIT(esrd)) 10,000 unit MoWeFr@1700 SC Last administered on 09/07/18 17:28; Admin Dose 10,000 UNIT; Start 08/29/18 at 17:00 Morphine Sulfate (morphine) 3 mg Q1H PRN GTB PAIN NOT RELIEVED BY OTHERS Last administered on 09/06/18 16:15; Admin Dose 3 MG; Start 08/29/18 at 12:00 Lansoprazole (Prevacid) 30 mg DAILY@06 GTB Last administered on 09/08/18 06:01; Admin Dose 30 MG; Start 08/30/18 at 06:00 Carvedilol (Coreg) 25 mg TID PO Last administered on 09/07/18 21:11; Admin Dose 25 MG; Start 08/30/18 at 09:00 Oxycodone HCl (Roxicodone) 5 mg Q4H PRN PO MODERATE PAIN LEVEL 4-6 Last administered on 09/02/18 13:01; Admin Dose 5 MG; Start 09/01/18 at 10:00 Miscellaneous Information (* Miscellaneous Pharmacy Order) ASPIRIN ORDER WILL ... Q12 XX ; Start 09/05/18 at 10:00 Ipratropium [place] (Atrovent 0.02% (Neb)) 0.5 mg Q6HWA RESP THERAPY HHN Last administered on 09/08/18 08:00; Admin Dose 0.5 MG; Start 09/07/18 at 20:00 Albuterol (Proventil 0.083% (Neb)) 2.5 mg Q6H RESP THERAPY HHN Last administered on 09/08/18 08:01; Admin Dose 2.5 MG; Start 09/07/18 at 20:00 Multivit/Ca Carb/ B Cmplx/FA/Prenat (Shalonda-Jaylen) 1 tab DAILY GTB ; Start 09/08/18 at 09:00 MARAIA KINSEY Sep 08, 2018 10:03
[2018-09-08] MEDS: ASPIRIN 81 MG TAB NGT SCH (10:28)
[2018-09-08] MEDS: ASCORBIC ACID 500 MG TAB NGT SCH (10:28)
[2018-09-08] MEDS: ZINC SULFATE 220 MG CAP NGT SCH (10:28)
[2018-09-08] MEDS: SEVELAMER CARBONATE 2.4 GM PKT GTB SCH ×3 (10:28→18:27)
[2018-09-08] MEDS: LACTOBACILLUS RHAMNOSUS CAP GTB SCH ×3 (10:28→21:47)
[2018-09-08] MEDS: CLOPIDOGREL 75 MG TAB NGT SCH (10:29)
[2018-09-08] MEDS: FOLIC ACID 1 MG TAB NGT SCH (10:29)
[2018-09-08] MEDS: MULTIVIT/CA CARB/B CMPLX/FA TAB GTB SCH (10:29)
[2018-09-08] MEDS: RIFAXIMIN 200 MG TAB PO SCH ×3 (10:29→21:47)
--- NOTE | 2018-09-08 11:10 | CONS ---
Assessment/Plan Assessment/Plan Assessment/Plan (Daily) 1. oliguric acute kidney injury with previously normal baseline creatinine. The patient is currently dialysis dependent, no signs of renal recovery. HD tomorrow. 2. Access. The patient has a Devan catheter. We will place an order for tunnel catheter to be performed by interventional radiology. 3. Anemia. Continue to monitor hemoglobin and hematocrit levels. Continue Epogen. 4. Mineral bone disorder. Monitor calcium and phosphorus levels. 5. Ventilatory-dependent respiratory failure. Vent settings and ABG was reviewed. Continue to monitor. 6. Coronary artery disease status post percutaneous coronary intervention. Continue medical management. 7. Acute cerebrovascular accident. Continue current treatment plan. 8. Dysphagia. Continue tube feeding. 9. Encephalopathy, improving. 10. Status post shock. 11. Status post cardiac arrest. Consultation Date/Type/Reason Admit Date/Time Aug 04, 2018 at 23:10 Initial Consult Date 08/17/18 Requesting Provider: HARPAL AGGARWAL MD Date/Time of Note DATE: 09/08/18 TIME: 11:08 24 HR Interval Summary Free Text/Dictation remains on vent review of output shows some urine output d/w rn gen nad cv rrr pulm coarse bs abd soft, nd, nt +bs ext: no edema Exam/Review of Systems Exam Vitals Vital Signs Date Temp Pulse Resp B/P (MAP) Pulse Ox O2 O2 Flow FiO2 Time Delivery Rate 09/08/18 100 5.0 28 08:12 09/08/18 95 20 Aerosol 08:10 T Tube 09/08/18 98.1 157/74 07:52 (101) Intake and Output 09/07/18 09/07/18 09/08/18 1414:59 22:59 06:59 IntakeIntake Total 560 ml 610 ml OutputOutput Total 2600 ml 100 ml 120 ml BalanceBalance -2600 ml 460 ml 490 ml Results Result Diagram: 09/08/18 0744 09/08/18 0744 Results 24hrs Laboratory Tests Test 09/08/18 07:44 White Blood Count 11.9 H Red Blood Count 2.92 L Hemoglobin 8.6 L Hematocrit 28.1 L Mean Corpuscular Volume 96.2 Mean Corpuscular Hemoglobin 29.5 Mean Corpuscular Hemoglobin Concent 30.6 L Red Cell Distribution Width 18.0 H Platelet Count 211 Mean Platelet Volume 12.2 H Immature Granulocytes % 2.000 H Neutrophils % 64.5 Lymphocytes % 23.0 Monocytes % 7.6 Eosinophils % 2.2 Basophils % 0.7 Nucleated Red Blood Cells % 0.0 Immature Granulocytes # 0.240 H Neutrophils # 7.7 H Lymphocytes # 2.7 Monocytes # 0.9 Eosinophils # 0.3 Basophils # 0.1 Nucleated Red Blood Cells # 0.0 Sodium Level 136 Potassium Level 3.3 L Chloride Level 98 Carbon Dioxide Level 28 Anion Gap 10 Blood Urea Nitrogen 40 H Creatinine 2.52 H Glucose Level 125 Calcium Level 10.5 H Phosphorus Level 5.9 H Magnesium Level 2.4 Albumin 3.3 Medications Medication Current Medications Atorvastatin Calcium (Lipitor) 80 mg DAILY@21 PO Last administered on 09/07/18at 21:10; Admin Dose 80 MG; Start 08/05/18 at 21:00 Miscellaneous Information 1 ea NOTE XX ; Start 08/05/18 at 09:00 Acetaminophen (Tylenol Liquid) 650 mg Q4H PRN PO ELEVATED TEMPERATURE Last administered on 09/01/18at 00:29; Admin Dose 650 MG; Start 08/05/18 at 11:00; Status Hold Aspirin (Aspirin) 81 mg DAILY NGT Last administered on 09/08/18 10:28; Admin Dose 81 MG; Start 08/06/18 at 09:00 Zinc Sulfate (Zinc Sulfate) 220 mg DAILY NGT Last administered on 09/08/18 10:28; Admin Dose 220 MG; Start 08/09/18 at 09:00 Folic Acid (Folic Acid) 1 mg DAILY NGT Last administered on 09/08/18 10:29; Admin Dose 1 MG; Start 08/09/18 at 09:00 Ascorbic Acid (Vitamin C) 500 mg DAILY NGT Last administered on 09/08/18 10:28; Admin Dose 500 MG; Start 08/09/18 at 09:00 IV Flush (NS 10 ml) 10 ml PRN PRN IV IV PROTOCOL; Start 08/11/18 at 16:30 Heparin Sodium (Porcine) (Heparin (1000 Units/ml)) 3,000 unit PRN PRN CATHETER Dialysis Last administered on 09/05/18at 15:28; Admin Dose 3,000 UNIT; Start 08/12/18 at 14:30 Labetalol HCl (Labetalol) 10 mg Q4H PRN IV ELEVATED SYSTOLIC BP > 180 Last administered on 08/20/18 16:54; Admin Dose 10 MG; Start 08/14/18 at 19:00 Hydralazine HCl (Apresoline) 20 mg Q2 PRN IV ELEVATED SYSTOLIC BP Last administered on 09/04/18 08:58; Admin Dose 20 MG; Start 08/16/18 at 08:00 Clopidogrel Bisulfate (plaVIX) 75 mg DAILY NGT Last administered on 09/08/18 10:29; Admin Dose 75 MG; Start 08/18/18 at 13:30 Rifaximin (Xifaxan) 200 mg TID PO Last administered on 09/08/18 10:29; Admin Dose 200 MG; Start 08/19/18 at 13:00 Sevelamer Carbonate (Renvela) 2.4 gm WITH MEALS GTB Last administered on 09/08/18 10:28; Admin Dose 2.4 GM; Start 08/23/18 at 11:30 Ondansetron HCl (Zofran Inj) 4 mg Q4H PRN IV NAUSEA AND/OR VOMITING Last administered on 09/02/18 12:57; Admin Dose 4 MG; Start 08/23/18 at 14:30 Lactobacillus Acidophilus/ Rhamnosus (Culturelle) 1 cap TID GTB Last administered on 09/08/18 10:28; Admin Dose 1 CAP; Start 08/24/18 at 13:00 Albumin Human 100 ml @ 100 mls/hr WITH DIALYSIS PRN IV SBP <90 DURING DIALYSIS; Start 08/26/18 at 12:00 Sodium Chloride (NS) -To prime the dialy... DIRECTED FOR HD PRN IV HD; Start 08/26/18 at 12:00 Nitroglycerin (Nitroglycerin 2% Oint) 0.5 inch Q6 PRN TD CHEST PAIN; Start 08/27/18 at 00:30 Lorazepam (Ativan) 1 mg Q4H PRN IV ANXIETY Last administered on 08/27/18 04:14; Admin Dose 1 MG; Start 08/27/18 at 04:30 Eye Lubricant (Artificial Tears Oph) 2 drop Q2H PRN BOTH EYES dry eyes; Start 08/28/18 at 01:30 Heparin Sodium (Porcine) (Heparin (5000 Units/1ml)) 5,000 unit Q8 SC Last administered on 09/08/18 06:06; Admin Dose 5,000 UNIT; Start 08/29/18 at 14:00 Epoetin Jarrell-epbx (RETACRIT(esrd)) 10,000 unit MoWeFr@1700 SC Last administered on 09/07/18 17:28; Admin Dose 10,000 UNIT; Start 08/29/18 at 17:00 Morphine Sulfate (morphine) 3 mg Q1H PRN GTB PAIN NOT RELIEVED BY OTHERS Last administered on 09/06/18 16:15; Admin Dose 3 MG; Start 08/29/18 at 12:00 Lansoprazole (Prevacid) 30 mg DAILY@06 GTB Last administered on 09/08/18 06:01; Admin Dose 30 MG; Start 08/30/18 at 06:00 Carvedilol (Coreg) 25 mg TID PO Last administered on 09/08/18 10:31; Admin Dose 25 MG; Start 08/30/18 at 09:00 Oxycodone HCl (Roxicodone) 5 mg Q4H PRN PO MODERATE PAIN LEVEL 4-6 Last administered on 09/02/18 13:01; Admin Dose 5 MG; Start 09/01/18 at 10:00 Miscellaneous Information (* Miscellaneous Pharmacy Order) ASPIRIN ORDER WILL ... Q12 XX ; Start 09/05/18 at 10:00 Ipratropium [place] (Atrovent 0.02% (Neb)) 0.5 mg Q6HWA RESP THERAPY HHN Last administered on 09/08/18 08:00; Admin Dose 0.5 MG; Start 09/07/18 at 20:00 Albuterol (Proventil 0.083% (Neb)) 2.5 mg Q6H RESP THERAPY HHN Last administered on 09/08/18 08:01; Admin Dose 2.5 MG; Start 09/07/18 at 20:00 Multivit/Ca Carb/ B Cmplx/FA/Prenat (Shalonda-Jaylen) 1 tab DAILY GTB Last administered on 09/08/18 10:29; Admin Dose 1 TAB; Start 09/08/18 at 09:00 JED PEDROZA MD Sep 08, 2018 11:10
--- NOTE | 2018-09-08 14:23 | PN ---
Date/Time of Note Date/Time of Note DATE: 09/08/18 TIME: 14:19 Assessment/Plan VTE Prophylaxis Risk score (from Nsg)>0 risk: 8 SCD applied (from Nsg): Yes Pharmacological prophylaxis: other Lines/Catheters IV Catheter Type (from Nrsg): PICC Line Central line still needed: Yes Urinary Cath still in place: Yes Reason Cath still needed: terminal illness/intractable pain Assessment/Plan Assessment/Plan 1. CAD s/p PCI x3- stable - Cardiology on board and appreciate recommendations. Will need to continue aspirin for life and DAPT for 1 year - s/p emergent Cath 08/05 with successful PTCA and stenting of proximal and mid LAD, PTCA of the large first diagonal and thrombectomy of the LAD - Repeat PCI on 08/07 performed with stenting to LCx - Repeat PCI on 09/04 with stenting ostial/proximal right coronary artery 2. Acute hypoxic respiratory failure- improving - Remains stable off vent. Per pulm with downsize trach tomorrow - Speech consulted for trials of PMV and advancing diet. - Pulm on board and appreciate recommendations. 3. Acute toxic/metabolic encephalopathy- resolved - Patient back to baseline and doing well. - Neurology input appreciated and will reconsult if needed 4. Bilateral CVA - PT/OT on board - Found on MRI, likely thromboembolic secondary to cardiopulmonary arrest per neurology - Continue on aspirin/Plavix and Lipitor 5. Anemia, blood loss and renal disease- stable - Hgb remains stable, transfuse as needed 6. Bilateral Pneumonia- resolved - ID on board and appreciate recommendations. Monitor off antibiotics 7. Septic shock secondary to PNA and bacteremia- resolved - Blood cultures and sputum culture results noted. - ID on board 8. Renal failure on HD - Nephrology on board and appreciate recommendations. Continue HD. Plans for permacath placement prior to discharge - secondary to septic shock, ATN vs prerenal vs contrast induced nephropathy 9. Diabetes - A1c noted - ISS not needed 10. S/p V-fib cardiac arrest secondary to STEMI - Completed hypothermia protocol 11. Disposition - Will downsize trach tomorrow per Pulm and trial of capping. CM on board for SNF placement Result Diagram: 09/08/18 0744 09/08/18 0744 Results 24hrs Laboratory Tests Test 09/08/18 07:44 White Blood Count 11.9 H Red Blood Count 2.92 L Hemoglobin 8.6 L Hematocrit 28.1 L Mean Corpuscular Volume 96.2 Mean Corpuscular Hemoglobin 29.5 Mean Corpuscular Hemoglobin Concent 30.6 L Red Cell Distribution Width 18.0 H Platelet Count 211 Mean Platelet Volume 12.2 H Immature Granulocytes % 2.000 H Neutrophils % 64.5 Lymphocytes % 23.0 Monocytes % 7.6 Eosinophils % 2.2 Basophils % 0.7 Nucleated Red Blood Cells % 0.0 Immature Granulocytes # 0.240 H Neutrophils # 7.7 H Lymphocytes # 2.7 Monocytes # 0.9 Eosinophils # 0.3 Basophils # 0.1 Nucleated Red Blood Cells # 0.0 Sodium Level 136 Potassium Level 3.3 L Chloride Level 98 Carbon Dioxide Level 28 Anion Gap 10 Blood Urea Nitrogen 40 H Creatinine 2.52 H Glucose Level 125 Calcium Level 10.5 H Phosphorus Level 5.9 H Magnesium Level 2.4 Albumin 3.3 Subjective 24 Hr Interval Summary Free Text/Dictation Patient doing well and stable off ventilator. Denies any acute issues and no distress noted. Exam/Review of Systems Exam Vitals Vital Signs Date Temp Pulse Resp B/P (MAP) Pulse Ox O2 O2 Flow FiO2 Time Delivery Rate 09/08/18 98 5.0 13:32 09/08/18 90 20 Aerosol 28 13:30 T Tube 09/08/18 99.0 165/92 11:43 (116) Intake and Output 09/07/18 09/07/18 09/08/18 1515:00 23:00 07:00 IntakeIntake Total 560 ml 610 ml OutputOutput Total 2600 ml 100 ml 120 ml BalanceBalance -2600 ml 460 ml 490 ml Exam General: Patient is laying in bed. no acute distress Neck: Supple, trach in place Respiratory: Diminished breath sounds. no wheezing or rhonchi Cardiovascular: regular rate and rhythm, no obvious murmurs Gastrointestinal: soft, non-tender to palpation, bowel sounds heard. PEG in place Neurological: Able to follow commands and move all extremities Skin: No new skin lesions Results Results 24hrs Laboratory Tests Test 09/08/18 07:44 White Blood Count 11.9 H Red Blood Count 2.92 L Hemoglobin 8.6 L Hematocrit 28.1 L Mean Corpuscular Volume 96.2 Mean Corpuscular Hemoglobin 29.5 Mean Corpuscular Hemoglobin Concent 30.6 L Red Cell Distribution Width 18.0 H Platelet Count 211 Mean Platelet Volume 12.2 H Immature Granulocytes % 2.000 H Neutrophils % 64.5 Lymphocytes % 23.0 Monocytes % 7.6 Eosinophils % 2.2 Basophils % 0.7 Nucleated Red Blood Cells % 0.0 Immature Granulocytes # 0.240 H Neutrophils # 7.7 H Lymphocytes # 2.7 Monocytes # 0.9 Eosinophils # 0.3 Basophils # 0.1 Nucleated Red Blood Cells # 0.0 Sodium Level 136 Potassium Level 3.3 L Chloride Level 98 Carbon Dioxide Level 28 Anion Gap 10 Blood Urea Nitrogen 40 H Creatinine 2.52 H Glucose Level 125 Calcium Level 10.5 H Phosphorus Level 5.9 H Magnesium Level 2.4 Albumin 3.3 Medications Medication Current Medications Atorvastatin Calcium (Lipitor) 80 mg DAILY@21 PO Last administered on 09/07/18at 21:10; Admin Dose 80 MG; Start 08/05/18 at 21:00 Miscellaneous Information 1 ea NOTE XX ; Start 08/05/18 at 09:00 Acetaminophen (Tylenol Liquid) 650 mg Q4H PRN PO ELEVATED TEMPERATURE Last administered on 09/01/18at 00:29; Admin Dose 650 MG; Start 08/05/18 at 11:00; Status Hold Aspirin (Aspirin) 81 mg DAILY NGT Last administered on 09/08/18 10:28; Admin Dose 81 MG; Start 08/06/18 at 09:00 Zinc Sulfate (Zinc Sulfate) 220 mg DAILY NGT Last administered on 09/08/18 10:28; Admin Dose 220 MG; Start 08/09/18 at 09:00 Folic Acid (Folic Acid) 1 mg DAILY NGT Last administered on 09/08/18 10:29; Admin Dose 1 MG; Start 08/09/18 at 09:00 Ascorbic Acid (Vitamin C) 500 mg DAILY NGT Last administered on 09/08/18 10:28; Admin Dose 500 MG; Start 08/09/18 at 09:00 IV Flush (NS 10 ml) 10 ml PRN PRN IV IV PROTOCOL; Start 08/11/18 at 16:30 Heparin Sodium (Porcine) (Heparin (1000 Units/ml)) 3,000 unit PRN PRN CATHETER Dialysis Last administered on 09/05/18at 15:28; Admin Dose 3,000 UNIT; Start 08/12/18 at 14:30 Labetalol HCl (Labetalol) 10 mg Q4H PRN IV ELEVATED SYSTOLIC BP > 180 Last administered on 08/20/18 16:54; Admin Dose 10 MG; Start 08/14/18 at 19:00 Hydralazine HCl (Apresoline) 20 mg Q2 PRN IV ELEVATED SYSTOLIC BP Last administ ered on 09/04/18 08:58; Admin Dose 20 MG; Start 08/16/18 at 08:00 Clopidogrel Bisulfate (plaVIX) 75 mg DAILY NGT Last administered on 09/08/18 10:29; Admin Dose 75 MG; Start 08/18/18 at 13:30 Rifaximin (Xifaxan) 200 mg TID PO Last administered on 09/08/18 10:29; Admin Dose 200 MG; Start 08/19/18 at 13:00 Sevelamer Carbonate (Renvela) 2.4 gm WITH MEALS GTB Last administered on 09/08/18 10:28; Admin Dose 2.4 GM; Start 08/23/18 at 11:30 Ondansetron HCl (Zofran Inj) 4 mg Q4H PRN IV NAUSEA AND/OR VOMITING Last administered on 09/02/18 12:57; Admin Dose 4 MG; Start 08/23/18 at 14:30 Lactobacillus Acidophilus/ Rhamnosus (Culturelle) 1 cap TID GTB Last administered on 09/08/18 10:28; Admin Dose 1 CAP; Start 08/24/18 at 13:00 Albumin Human 100 ml @ 100 mls/hr WITH DIALYSIS PRN IV SBP <90 DURING DIALYSIS; Start 08/26/18 at 12:00 Sodium Chloride (NS) -To prime the dialy... DIRECTED FOR HD PRN IV HD; Start 08/26/18 at 12:00 Nitroglycerin (Nitroglycerin 2% Oint) 0.5 inch Q6 PRN TD CHEST PAIN; Start 08/27/18 at 00:30 Lorazepam (Ativan) 1 mg Q4H PRN IV ANXIETY Last administered on 08/27/18 04:14; Admin Dose 1 MG; Start 08/27/18 at 04:30 Eye Lubricant (Artificial Tears Oph) 2 drop Q2H PRN BOTH EYES dry eyes; Start 08/28/18 at 01:30 Heparin Sodium (Porcine) (Heparin (5000 Units/1ml)) 5,000 unit Q8 SC Last administered on 09/08/18 06:06; Admin Dose 5,000 UNIT; Start 08/29/18 at 14:00 Epoetin Jarrell-epbx (RETACRIT(esrd)) 10,000 unit MoWeFr@1700 SC Last administered on 09/07/18 17:28; Admin Dose 10,000 UNIT; Start 08/29/18 at 17:00 Morphine Sulfate (morphine) 3 mg Q1H PRN GTB PAIN NOT RELIEVED BY OTHERS Last administered on 09/06/18 16:15; Admin Dose 3 MG; Start 08/29/18 at 12:00 Lansoprazole (Prevacid) 30 mg DAILY@06 GTB Last administered on 09/08/18 06:01; Admin Dose 30 MG; Start 08/30/18 at 06:00 Carvedilol (Coreg) 25 mg TID PO Last administered on 09/08/18 10:31; Admin Dose 25 MG; Start 08/30/18 at 09:00 Oxycodone HCl (Roxicodone) 5 mg Q4H PRN PO MODERATE PAIN LEVEL 4-6 Last administered on 09/02/18 13:01; Admin Dose 5 MG; Start 09/01/18 at 10:00 Miscellaneous Information (* Miscellaneous Pharmacy Order) ASPIRIN ORDER WILL ... Q12 XX ; Start 09/05/18 at 10:00 Ipratropium [place] (Atrovent 0.02% (Neb)) 0.5 mg Q6HWA RESP THERAPY HHN Last administered on 09/08/18 13:24; Admin Dose 0.5 MG; Start 09/07/18 at 20:00 Albuterol (Proventil 0.083% (Neb)) 2.5 mg Q6H RESP THERAPY HHN Last administered on 09/08/18 13:25; Admin Dose 2.5 MG; Start 09/07/18 at 20:00 Multivit/Ca Carb/ B Cmplx/FA/Prenat (Shalonda-Jaylen) 1 tab DAILY GTB Last administered on 09/08/18 10:29; Admin Dose 1 TAB; Start 09/08/18 at 09:00 THOMAS RILEY MD Sep 08, 2018 14:23
--- NOTE | 2018-09-08 17:19 | CONS ---
Consultation Date/Type/Reason Admit Date/Time Aug 04, 2018 at 23:10 Initial Consult Date SUBJECTIVE: No acute events over night. No fevers. trach to vent. VS: stable. T: 98.6 LABS reviewed. WBC- 11.9 CXR: 08/31/18: IMPRESSION: 1. Tracheostomy tube in situ. Unchanged right-sided PICC line. 2. Cardiomegaly. 3. Bibasilar infiltrates, unchanged since prior exam. Antimicrobials: Vancomycin and cefepime Microbiology: Urine culture on admission grew E. coli and Proteus, blood cultures growing oxacillin sensitive staph aureus endotracheal aspirate also growing oxacillin sensitive staph aureus ear drainage preliminary growing staph aureus, repeat blood cultures 2 days ago negative Indwelling: Trach, PEG, right femoral Devan, right upper extremity PICC line Physical examination: GEN: Obese well-developed, middle-aged woman who trach to Vent. HENT: Head atraumatic normocephalic, neck is supple PULM: chest rise symmetrical, breath sounds diminished bases. Heart: S1-S2. Abdomen distended. Bowel sounds hypoactive. Extremities: cyanotic Assessment: 1. Sepsis, status post shock 2. Healthcare associated pneumonia 3. S/p Oxacillin sensitive staph aureus bacteremia 2 to #3 4. S/p polymicrobial UTI 5. ST elevation PA, status post stent 6. Status post V. fib arrest 7. Acute renal failure, started on hemodialysis 8. 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 Anemia and thrombocytopenia 10. Acute sinusitis and bilateral mastoiditis 11. Morbid obesity 12. Diarrhea, r/o C dif Plan: Pt is stable. Continue to monitor off of antbx. D/C planning.. Requesting Provider: HARPAL AGGARWAL MD Date/Time of Note DATE: 09/08/18 TIME: 17:18 Exam/Review of Systems Exam Vitals Vital Signs Date Temp Pulse Resp B/P (MAP) Pulse Ox O2 O2 Flow FiO2 Time Delivery Rate 09/08/18 90 16:01 09/08/18 98.6 16 159/87 99 15:47 (111) 09/08/18 5.0 13:32 09/08/18 Aerosol 28 13:30 T Tube Intake and Output 09/07/18 09/07/18 09/08/18 1515:00 23:00 07:00 IntakeIntake Total 560 ml 610 ml OutputOutput Total 2600 ml 100 ml 120 ml BalanceBalance -2600 ml 460 ml 490 ml Results Result Diagram: 09/08/18 0744 09/08/18 0744 Results 24hrs Laboratory Tests Test 09/08/18 07:44 White Blood Count 11.9 H Red Blood Count 2.92 L Hemoglobin 8.6 L Hematocrit 28.1 L Mean Corpuscular Volume 96.2 Mean Corpuscular Hemoglobin 29.5 Mean Corpuscular Hemoglobin Concent 30.6 L Red Cell Distribution Width 18.0 H Platelet Count 211 Mean Platelet Volume 12.2 H Immature Granulocytes % 2.000 H Neutrophils % 64.5 Lymphocytes % 23.0 Monocytes % 7.6 Eosinophils % 2.2 Basophils % 0.7 Nucleated Red Blood Cells % 0.0 Immature Granulocytes # 0.240 H Neutrophils # 7.7 H Lymphocytes # 2.7 Monocytes # 0.9 Eosinophils # 0.3 Basophils # 0.1 Nucleated Red Blood Cells # 0.0 Sodium Level 136 Potassium Level 3.3 L Chloride Level 98 Carbon Dioxide Level 28 Anion Gap 10 Blood Urea Nitrogen 40 H Creatinine 2.52 H Glucose Level 125 Calcium Level 10.5 H Phosphorus Level 5.9 H Magnesium Level 2.4 Albumin 3.3 Medications Medication Current Medications Atorvastatin Calcium (Lipitor) 80 mg DAILY@21 PO Last administered on 09/07/18at 21:10; Admin Dose 80 MG; Start 08/05/18 at 21:00 Miscellaneous Information 1 ea NOTE XX ; Start 08/05/18 at 09:00 Acetaminophen (Tylenol Liquid) 650 mg Q4H PRN PO ELEVATED TEMPERATURE Last administered on 09/01/18at 00:29; Admin Dose 650 MG; Start 08/05/18 at 11:00 Aspirin (Aspirin) 81 mg DAILY NGT Last administered on 09/08/18 10:28; Admin Dose 81 MG; Start 08/06/18 at 09:00 Zinc Sulfate (Zinc Sulfate) 220 mg DAILY NGT Last administered on 09/08/18 10:28; Admin Dose 220 MG; Start 08/09/18 at 09:00 Folic Acid (Folic Acid) 1 mg DAILY NGT Last administered on 09/08/18at 10:29; Admin Dose 1 MG; Start 08/09/18 at 09:00 Ascorbic Acid (Vitamin C) 500 mg DAILY NGT Last administered on 09/08/18 10:28; Admin Dose 500 MG; Start 08/09/18 at 09:00 IV Flush (NS 10 ml) 10 ml PRN PRN IV IV PROTOCOL; Start 08/11/18 at 16:30 Heparin Sodium (Porcine) (Heparin (1000 Units/ml)) 3,000 unit PRN PRN CATHETER Dialysis Last administered on 09/05/18 15:28; Admin Dose 3,000 UNIT; Start 08/12/18 at 14:30 Labetalol HCl (Labetalol) 10 mg Q4H PRN IV ELEVATED SYSTOLIC BP > 170 Last administered on 08/20/18 16:54; Admin Dose 10 MG; Start 08/14/18 at 19:00 Hydralazine HCl (Apresoline) 20 mg Q2 PRN IV ELEVATED SYSTOLIC BP Last ad ministered on 09/04/18 08:58; Admin Dose 20 MG; Start 08/16/18 at 08:00 Clopidogrel Bisulfate (plaVIX) 75 mg DAILY NGT Last administered on 09/08/18 10:29; Admin Dose 75 MG; Start 08/18/18 at 13:30 Rifaximin (Xifaxan) 200 mg TID PO Last administered on 09/08/18 15:18; Admin Dose 200 MG; Start 08/19/18 at 13:00 Sevelamer Carbonate (Renvela) 2.4 gm WITH MEALS GTB Last administered on 09/08/18 15:18; Admin Dose 2.4 GM; Start 08/23/18 at 11:30 Ondansetron HCl (Zofran Inj) 4 mg Q4H PRN IV NAUSEA AND/OR VOMITING Last administered on 09/02/18 12:57; Admin Dose 4 MG; Start 08/23/18 at 14:30 Lactobacillus Acidophilus/ Rhamnosus (Culturelle) 1 cap TID GTB Last administered on 09/08/18 15:18; Admin Dose 1 CAP; Start 08/24/18 at 13:00 Albumin Human 100 ml @ 100 mls/hr WITH DIALYSIS PRN IV SBP <90 DURING DIALYSIS; Start 08/26/18 at 12:00 Sodium Chloride (NS) -To prime the dialy... DIRECTED FOR HD PRN IV HD; Start 08/26/18 at 12:00 Nitroglycerin (Nitroglycerin 2% Oint) 0.5 inch Q6 PRN TD CHEST PAIN; Start 08/27/18 at 00:30 Lorazepam (Ativan) 1 mg Q4H PRN IV ANXIETY Last administered on 08/27/18 04:14; Admin Dose 1 MG; Start 08/27/18 at 04:30 Eye Lubricant (Artificial Tears Oph) 2 drop Q2H PRN BOTH EYES dry eyes; Start 08/28/18 at 01:30 Epoetin Jarrell-epbx (RETACRIT(esrd)) 10,000 unit MoWeFr@1700 SC Last administered on 09/07/18 17:28; Admin Dose 10,000 UNIT; Start 08/29/18 at 17:00 Morphine Sulfate (morphine) 3 mg Q1H PRN GTB PAIN NOT RELIEVED BY OTHERS Last administered on 09/06/18 16:15; Admin Dose 3 MG; Start 08/29/18 at 12:00 Lansoprazole (Prevacid) 30 mg DAILY@06 GTB Last administered on 09/08/18 06:01; Admin Dose 30 MG; Start 08/30/18 at 06:00 Carvedilol (Coreg) 25 mg TID PO Last administered on 09/08/18 15:18; Admin Dose 25 MG; Start 08/30/18 at 09:00 Oxycodone HCl (Roxicodone) 5 mg Q4H PRN PO MODERATE PAIN LEVEL 4-6 Last administered on 09/02/18 13:01; Admin Dose 5 MG; Start 09/01/18 at 10:00 Miscellaneous Information (* Miscellaneous Pharmacy Order) ASPIRIN ORDER WILL ... Q12 XX ; Start 09/05/18 at 10:00 Ipratropium [place] (Atrovent 0.02% (Neb)) 0.5 mg Q6HWA RESP THERAPY HHN Last administered on 09/08/18 13:24; Admin Dose 0.5 MG; Start 09/07/18 at 20:00 Albuterol (Proventil 0.083% (Neb)) 2.5 mg Q6H RESP THERAPY HHN Last administered on 09/08/18 13:25; Admin Dose 2.5 MG; Start 09/07/18 at 20:00 Multivit/Ca Carb/ B Cmplx/FA/Prenat (Shalonda-Jaylen) 1 tab DAILY GTB Last administered on 09/08/18at 10:29; Admin Dose 1 TAB; Start 09/08/18 at 09:00 Heparin Sodium (Porcine) (Heparin (5000 Units/1ml)) 5,000 unit BID SC ; Start 09/08/18 at 21:00 LATASHA DONALDSON Sep 08, 2018 17:19
[2018-09-08] MEDS: ATORVASTATIN 80 MG TAB PO SCH (21:47)
[2018-09-09] VITALS (27 sets, daily range): BP systolic 112–162; BP diastolic 67–95; PULSE 72–102; RESP 18–20
[2018-09-09] MEDS: ALBUTEROL 0.083% (NEB) 2.5 MG/3 ML AMP HHN SCH ×4 (01:28→19:53)
[2018-09-09] MEDS: LANSOPRAZOLE 30 MG CAP GTB SCH (05:30)
[2018-09-09] MEDS: IPRATROPIUM (NEB) 0.5 MG/2.5 ML AMP HHN SCH ×3 (07:54→19:53)
--- NOTE | 2018-09-09 08:39 | CONS ---
Assessment/Plan Assessment/Plan Assessment/Plan (Daily) Assessment and recommendations; 1. Patient status post cardiac arrest status post hypothermia protocol as well as tracheostomy with significant overall clinical improvement in all parameters. 2. Status post PTCA. 3. Status post treatment for bilateral pneumonia. 4. CVA based upon MRI of the brain without any obvious focal neurological deficit. Current supportive care. Maintain T-piece for now. The patient still has significant secretions requiring frequent suctioning. Patient however is a good candidate for eventual decannulation of tracheostomy. Patient will need to have a swallow evaluation. Patient also has a good candidate for transfer to pulmonary rehab center. Consultation Date/Type/Reason Admit Date/Time Aug 04, 2018 at 23:10 Initial Consult Date 08/17/18 Type of Consult Pulmonary/critical care Requesting Provider: HARPAL AGGARWAL MD Date/Time of Note DATE: 09/09/18 TIME: 08:36 24 HR Interval Summary Free Text/Dictation Patient's condition is stable. Remains completely awake and alert. Denies any shortness of breath, chest pain, coughing, wheezing. General exam; young lady, awake alert, currently no distress. Exam/Review of Systems Exam Vitals Vital Signs Date Temp Pulse Resp B/P (MAP) Pulse Ox O2 O2 Flow FiO2 Time Delivery Rate 09/09/18 98.2 90 20 159/94 98 Room Air 08:01 (115) 09/09/18 5.0 28 04:40 Intake and Output 09/08/18 09/08/18 09/09/18 1515:00 23:00 07:00 IntakeIntake Total 610 ml OutputOutput Total 800 ml 240 ml BalanceBalance -800 ml 370 ml Exam H EENT exam; supple neck, no JVD. No lymphadenopathy. Midline trachea. No thyromegaly. Pharynx is clear. Patient has good dentition. Tracheostomy in place. Insertion site is clean. Attached to T piece. Chest exam; clear to auscultation. S1-S2 audible, no murmurs. Regular rhythm. Abdomen exam; soft, nontender. No organomegaly. G-tube in place. Bowel sounds audible. Extremity exam; no peripheral edema clubbing. Pulses 2+. [employer] exam; no focal motor deficit. Results Result Diagram: 09/09/18 0641 09/09/18 0641 Results 24hrs Laboratory Tests Test 09/09/18 06:41 White Blood Count 10.5 Red Blood Count 2.96 L Hemoglobin 8.6 L Hematocrit 27.9 L Mean Corpuscular Volume 94.3 Mean Corpuscular Hemoglobin 29.1 Mean Corpuscular Hemoglobin Concent 30.8 L Red Cell Distribution Width 17.7 H Platelet Count 202 Mean Platelet Volume 12.3 H Immature Granulocytes % 2.000 H Neutrophils % 62.2 Lymphocytes % 23.9 Monocytes % 8.5 Eosinophils % 2.7 Basophils % 0.7 Nucleated Red Blood Cells % 0.0 Immature Granulocytes # 0.210 H Neutrophils # 6.5 Lymphocytes # 2.5 Monocytes # 0.9 Eosinophils # 0.3 Basophils # 0.1 Nucleated Red Blood Cells # 0.0 Sodium Level 134 L Potassium Level 4.0 Chloride Level 98 Carbon Dioxide Level 27 Anion Gap 9 Blood Urea Nitrogen 50 H Creatinine 2.66 H Glucose Level 108 Calcium Level 10.6 H Phosphorus Level 6.5 H Magnesium Level 2.4 Albumin 3.1 L Medications Medication Current Medications Atorvastatin Calcium (Lipitor) 80 mg DAILY@21 PO Last administered on 09/08/18at 21:47; Admin Dose 80 MG; Start 08/05/18 at 21:00 Miscellaneous Information 1 ea NOTE XX ; Start 08/05/18 at 09:00 Acetaminophen (Tylenol Liquid) 650 mg Q4H PRN PO ELEVATED TEMPERATURE Last administered on 09/01/18at 00:29; Admin Dose 650 MG; Start 08/05/18 at 11:00 Aspirin (Aspirin) 81 mg DAILY NGT Last administered on 09/08/18at 10:28; Admin Dose 81 MG; Start 08/06/18 at 09:00 Zinc Sulfate (Zinc Sulfate) 220 mg DAILY NGT Last administered on 09/08/18 10:28; Admin Dose 220 MG; Start 08/09/18 at 09:00 Folic Acid (Folic Acid) 1 mg DAILY NGT Last administered on 09/08/18at 10:29; Admin Dose 1 MG; Start 08/09/18 at 09:00 Ascorbic Acid (Vitamin C) 500 mg DAILY NGT Last administered on 09/08/18at 10:28; Admin Dose 500 MG; Start 08/09/18 at 09:00 IV Flush (NS 10 ml) 10 ml PRN PRN IV IV PROTOCOL; Start 08/11/18 at 16:30 Heparin Sodium (Porcine) (Heparin (1000 Units/ml)) 3,000 unit PRN PRN CATHETER Dialysis Last administered on 09/05/18 15:28; Admin Dose 3,000 UNIT; Start 08/12/18 at 14:30 Labetalol HCl (Labetalol) 10 mg Q4H PRN IV ELEVATED SYSTOLIC BP > 170 Last administered on 08/20/18 16:54; Admin Dose 10 MG; Start 08/14/18 at 19:00 Hydralazine HCl (Apresoline) 20 mg Q2 PRN IV ELEVATED SYSTOLIC BP Last administered on 09/04/18 08:58; Admin Dose 20 MG; Start 08/16/18 at 08:00 Clopidogrel Bisulfate (plaVIX) 75 mg DAILY NGT Last administered on 09/08/18 10:29; Admin Dose 75 MG; Start 08/18/18 at 13:30 Rifaximin (Xifaxan) 200 mg TID PO Last administered on 09/08/18 21:47; Admin Dose 200 MG; Start 08/19/18 at 13:00 Sevelamer Carbonate (Renvela) 2.4 gm WITH MEALS GTB Last administered on 09/08/18 18:27; Admin Dose 2.4 GM; Start 08/23/18 at 11:30 Ondansetron HCl (Zofran Inj) 4 mg Q4H PRN IV NAUSEA AND/OR VOMITING Last administered on 09/02/18 12:57; Admin Dose 4 MG; Start 08/23/18 at 14:30 Lactobacillus Acidophilus/ Rhamnosus (Culturelle) 1 cap TID GTB Last administered on 09/08/18 21:47; Admin Dose 1 CAP; Start 08/24/18 at 13:00 Albumin Human 100 ml @ 100 mls/hr WITH DIALYSIS PRN IV SBP <90 DURING DIALYSIS; Start 08/26/18 at 12:00 Sodium Chloride (NS) -To prime the dialy... DIRECTED FOR HD PRN IV HD; Start 08/26/18 at 12:00 Nitroglycerin (Nitroglycerin 2% Oint) 0.5 inch Q6 PRN TD CHEST PAIN; Start 08/27/18 at 00:30 Lorazepam (Ativan) 1 mg Q4H PRN IV ANXIETY Last administered on 08/27/18 04:14; Admin Dose 1 MG; Start 08/27/18 at 04:30 Eye Lubricant (Artificial Tears Oph) 2 drop Q2H PRN BOTH EYES dry eyes; Start 08/28/18 at 01:30 Epoetin Jarrell-epbx (RETACRIT(esrd)) 10,000 unit MoWeFr@1700 SC Last administered on 09/07/18 17:28; Admin Dose 10,000 UNIT; Start 08/29/18 at 17:00 Morphine Sulfate (morphine) 3 mg Q1H PRN GTB PAIN NOT RELIEVED BY OTHERS Last administered on 09/06/18 16:15; Admin Dose 3 MG; Start 08/29/18 at 12:00 Lansoprazole (Prevacid) 30 mg DAILY@06 GTB Last administered on 09/09/18 05:30; Admin Dose 30 MG; Start 08/30/18 at 06:00 Carvedilol (Coreg) 25 mg TID PO Last administered on 09/08/18 21:47; Admin Dose 25 MG; Start 08/30/18 at 09:00 Oxycodone HCl (Roxicodone) 5 mg Q4H PRN PO MODERATE PAIN LEVEL 4-6 Last administered on 09/02/18 13:01; Admin Dose 5 MG; Start 09/01/18 at 10:00 Miscellaneous Information (* Miscellaneous Pharmacy Order) ASPIRIN ORDER WILL ... Q12 XX ; Start 09/05/18 at 10:00 Ipratropium [place] (Atrovent 0.02% (Neb)) 0.5 mg Q6HWA RESP THERAPY HHN Last administered on 09/09/18 07:54; Admin Dose 0.5 MG; Start 09/07/18 at 20:00 Albuterol (Proventil 0.083% (Neb)) 2.5 mg Q6H RESP THERAPY HHN Last administered on 09/09/18 07:55; Admin Dose 2.5 MG; Start 09/07/18 at 20:00 Multivit/Ca Carb/ B Cmplx/FA/Prenat (Shalonda-Jaylen) 1 tab DAILY GTB Last administer ed on 09/08/18 10:29; Admin Dose 1 TAB; Start 09/08/18 at 09:00 Heparin Sodium (Porcine) (Heparin (5000 Units/1ml)) 5,000 unit BID SC Last administered on 09/08/18at 21:55; Admin Dose 5,000 UNIT; Start 09/08/18 at 21:00 MARIAA KINSEY Sep 09, 2018 08:39
[2018-09-09] MEDS: RIFAXIMIN 200 MG TAB PO SCH ×3 (09:43→23:06)
[2018-09-09] MEDS: CLOPIDOGREL 75 MG TAB NGT SCH (09:43)
[2018-09-09] MEDS: ASCORBIC ACID 500 MG TAB NGT SCH (09:43)
[2018-09-09] MEDS: ASPIRIN 81 MG TAB NGT SCH (09:44)
[2018-09-09] MEDS: MULTIVIT/CA CARB/B CMPLX/FA TAB GTB SCH (09:44)
[2018-09-09] MEDS: LACTOBACILLUS RHAMNOSUS CAP GTB SCH ×3 (09:44→21:00)
[2018-09-09] MEDS: ZINC SULFATE 220 MG CAP NGT SCH (09:44)
[2018-09-09] MEDS: FOLIC ACID 1 MG TAB NGT SCH (09:44)
[2018-09-09] MEDS: SEVELAMER CARBONATE 2.4 GM PKT GTB SCH ×3 (09:44→17:33)
[2018-09-09] MEDS: morphine LIQ (10 MG/5 ML) CUP GTB PRN (09:45)
[2018-09-09] MEDS: HEPARIN 5,000 UNIT/1 ML VIAL SC SCH ×2 (09:53→23:07)
[2018-09-09] MEDS: ONDANSETRON 4 MG INJ IV PRN (11:21)
[2018-09-09] MEDS ORDERED: ALTEPLASE (CATHFLO) 2 MG INJ CATHETER ONE ×2 (12:00)
--- NOTE | 2018-09-09 12:08 | PN ---
Date/Time of Note Date/Time of Note DATE: 09/09/18 TIME: 12:06 Assessment/Plan VTE Prophylaxis Risk score (from Nsg)>0 risk: 12 SCD applied (from Nsg): Yes Pharmacological prophylaxis: other Lines/Catheters IV Catheter Type (from Nrsg): PICC Line Central line still needed: Yes Urinary Cath still in place: Yes Reason Cath still needed: pres ulcer contaminated by urine Assessment/Plan Assessment/Plan 1. CAD s/p PCI x3- stable - will continue monitoring for any concerning cardiac sx - Cardiology on board and appreciate recommendations. Will need to continue aspirin for life and DAPT for 1 year - s/p emergent Cath 08/05 with successful PTCA and stenting of proximal and mid LAD, PTCA of the large first diagonal and thrombectomy of the LAD - Repeat PCI on 08/07 performed with stenting to LCx - Repeat PCI on 09/04 with stenting ostial/proximal right coronary artery 2. Acute hypoxic respiratory failure- improving - Remains stable off vent. Per pulm with downsize trach once secretions minimize - Speech consulted for trials of PMV and advancing diet. - Pulm on board and appreciate recommendations. 3. Acute toxic/metabolic encephalopathy- resolved - Patient back to baseline and doing well. - Neurology input appreciated and will reconsult if needed 4. Bilateral CVA - PT/OT on board - Found on MRI, likely thromboembolic secondary to cardiopulmonary arrest per neurology - Continue on aspirin/Plavix and Lipitor 5. Anemia, blood loss and renal disease- stable - Hgb remains stable, transfuse as needed 6. Bilateral Pneumonia- resolved - ID on board and appreciate recommendations. Monitor off antibiotics 7. Septic shock secondary to PNA and bacteremia- resolved - Blood cultures and sputum culture results noted. - ID on board 8. Renal failure on HD - Nephrology on board and appreciate recommendations. Continue HD. Plans for permacath placement prior to discharge - secondary to septic shock, ATN vs prerenal vs contrast induced nephropathy 9. Diabetes - A1c noted - ISS not needed 10. S/p V-fib cardiac arrest secondary to STEMI - Completed hypothermia protocol 11. Disposition - Will continue current treatment and monitor for decrease in secretions prior to downsizing trach and capping trial. CM on board for SNF placement Result Diagram: 09/09/18 0641 09/09/18 0641 Results 24hrs Laboratory Tests Test 09/09/18 06:41 White Blood Count 10.5 Red Blood Count 2.96 L Hemoglobin 8.6 L Hematocrit 27.9 L Mean Corpuscular Volume 94.3 Mean Corpuscular Hemoglobin 29.1 Mean Corpuscular Hemoglobin Concent 30.8 L Red Cell Distribution Width 17.7 H Platelet Count 202 Mean Platelet Volume 12.3 H Immature Granulocytes % 2.000 H Neutrophils % 62.2 Lymphocytes % 23.9 Monocytes % 8.5 Eosinophils % 2.7 Basophils % 0.7 Nucleated Red Blood Cells % 0.0 Immature Granulocytes # 0.210 H Neutrophils # 6.5 Lymphocytes # 2.5 Monocytes # 0.9 Eosinophils # 0.3 Basophils # 0.1 Nucleated Red Blood Cells # 0.0 Sodium Level 134 L Potassium Level 4.0 Chloride Level 98 Carbon Dioxide Level 27 Anion Gap 9 Blood Urea Nitrogen 50 H Creatinine 2.66 H Glucose Level 108 Calcium Level 10.6 H Phosphorus Level 6.5 H Magnesium Level 2.4 Albumin 3.1 L Subjective 24 Hr Interval Summary Free Text/Dictation Patient is complaining of chest discomfort but denies any shortness of breath, nausea, vomiting, or radiation. No acute overnight events. Exam/Review of Systems Exam Vitals Vital Signs Date Temp Pulse Resp B/P (MAP) Pulse Ox O2 O2 Flow FiO2 Time Delivery Rate 09/09/18 90 20 162/94 99 Trach 10:55 (116) Collar 09/09/18 98.2 08:01 09/09/18 5.0 28 04:40 Intake and Output 09/08/18 09/08/18 09/09/18 1515:00 23:00 07:00 IntakeIntake Total 610 ml OutputOutput Total 800 ml 240 ml BalanceBalance -800 ml 370 ml Exam General: Patient is laying in bed. no acute distress Neck: Supple, trach in place Respiratory: Diminished breath sounds. no wheezing or rhonchi Cardiovascular: regular rate and rhythm, no obvious murmurs Gastrointestinal: soft, non-tender to palpation, bowel sounds heard. PEG in place Neurological: Able to follow commands and move all extremities Skin: No new skin lesions Results Results 24hrs Laboratory Tests Test 09/09/18 06:41 White Blood Count 10.5 Red Blood Count 2.96 L Hemoglobin 8.6 L Hematocrit 27.9 L Mean Corpuscular Volume 94.3 Mean Corpuscular Hemoglobin 29.1 Mean Corpuscular Hemoglobin Concent 30.8 L Red Cell Distribution Width 17.7 H Platelet Count 202 Mean Platelet Volume 12.3 H Immature Granulocytes % 2.000 H Neutrophils % 62.2 Lymphocytes % 23.9 Monocytes % 8.5 Eosinophils % 2.7 Basophils % 0.7 Nucleated Red Blood Cells % 0.0 Immature Granulocytes # 0.210 H Neutrophils # 6.5 Lymphocytes # 2.5 Monocytes # 0.9 Eosinophils # 0.3 Basophils # 0.1 Nucleated Red Blood Cells # 0.0 Sodium Level 134 L Potassium Level 4.0 Chloride Level 98 Carbon Dioxide Level 27 Anion Gap 9 Blood Urea Nitrogen 50 H Creatinine 2.66 H Glucose Level 108 Calcium Level 10.6 H Phosphorus Level 6.5 H Magnesium Level 2.4 Albumin 3.1 L Medications Medication Current Medications Atorvastatin Calcium (Lipitor) 80 mg DAILY@21 PO Last administered on 09/08/18at 21:47; Admin Dose 80 MG; Start 08/05/18 at 21:00 Miscellaneous Information 1 ea NOTE XX ; Start 08/05/18 at 09:00 Acetaminophen (Tylenol Liquid) 650 mg Q4H PRN PO ELEVATED TEMPERATURE Last administered on 09/01/18at 00:29; Admin Dose 650 MG; Start 08/05/18 at 11:00 Aspirin (Aspirin) 81 mg DAILY NGT Last administered on 09/09/18 09:44; Admin Dose 81 MG; Start 08/06/18 at 09:00 Zinc Sulfate (Zinc Sulfate) 220 mg DAILY NGT Last administered on 09/09/18 09:44; Admin Dose 220 MG; Start 08/09/18 at 09:00 Folic Acid (Folic Acid) 1 mg DAILY NGT Last administered on 09/09/18at 09:44; Admin Dose 1 MG; Start 08/09/18 at 09:00 Ascorbic Acid (Vitamin C) 500 mg DAILY NGT Last administered on 09/09/18at 09:4 3; Admin Dose 500 MG; Start 08/09/18 at 09:00 IV Flush (NS 10 ml) 10 ml PRN PRN IV IV PROTOCOL; Start 08/11/18 at 16:30 Heparin Sodium (Porcine) (Heparin (1000 Units/ml)) 3,000 unit PRN PRN CATHETER Dialysis Last administered on 09/05/18at 15:28; Admin Dose 3,000 UNIT; Start 08/12/18 at 14:30 Labetalol HCl (Labetalol) 10 mg Q4H PRN IV ELEVATED SYSTOLIC BP > 170 Last administered on 08/20/18 16:54; Admin Dose 10 MG; Start 08/14/18 at 19:00 Hydralazine HCl (Apresoline) 20 mg Q2 PRN IV ELEVATED SYSTOLIC BP Last administered on 09/04/18 08:58; Admin Dose 20 MG; Start 08/16/18 at 08:00 Clopidogrel Bisulfate (plaVIX) 75 mg DAILY NGT Last administered on 09/09/18 09:43; Admin Dose 75 MG; Start 08/18/18 at 13:30 Rifaximin (Xifaxan) 200 mg TID PO Last administered on 09/09/18 09:43; Admin D ose 200 MG; Start 08/19/18 at 13:00 Sevelamer Carbonate (Renvela) 2.4 gm WITH MEALS GTB Last administered on 09/09/18 11:21; Admin Dose 2.4 GM; Start 08/23/18 at 11:30 Ondansetron HCl (Zofran Inj) 4 mg Q4H PRN IV NAUSEA AND/OR VOMITING Last administered on 09/09/18 11:21; Admin Dose 4 MG; Start 08/23/18 at 14:30 Lactobacillus Acidophilus/ Rhamnosus (Culturelle) 1 cap TID GTB Last administered on 09/09/18at 09:44; Admin Dose 1 CAP; Start 08/24/18 at 13:00 Albumin Human 100 ml @ 100 mls/hr WITH DIALYSIS PRN IV SBP <90 DURING DIALYSIS; Start 08/26/18 at 12:00 Sodium Chloride (NS) -To prime the dialy... DIRECTED FOR HD PRN IV HD; Start 08/26/18 at 12:00 Nitroglycerin (Nitroglycerin 2% Oint) 0.5 inch Q6 PRN TD CHEST PAIN; Start 08/27/18 at 00:30 Lorazepam (Ativan) 1 mg Q4H PRN IV ANXIETY Last administered on 08/27/18at 04:14; Admin Dose 1 MG; Start 08/27/18 at 04:30 Eye Lubricant (Artificial Tears Oph) 2 drop Q2H PRN BOTH EYES dry eyes; Start 08/28/18 at 01:30 Epoetin Jarrell-epbx (RETACRIT(esrd)) 10,000 unit MoWeFr@1700 SC Last administered on 09/07/18 17:28; Admin Dose 10,000 UNIT; Start 08/29/18 at 17:00 Morphine Sulfate (morphine) 3 mg Q1H PRN GTB PAIN NOT RELIEVED BY OTHERS Last administered on 09/09/18 09:45; Admin Dose 3 MG; Start 08/29/18 at 12:00 Lansoprazole (Prevacid) 30 mg DAILY@06 GTB Last administered on 09/09/18 05:30; Admin Dose 30 MG; Start 08/30/18 at 06:00 Carvedilol (Coreg) 25 mg TID PO Last administered on 09/09/18 09:45; Admin Dose 25 MG; Start 08/30/18 at 09:00 Oxycodone HCl (Roxicodone) 5 mg Q4H PRN PO MODERATE PAIN LEVEL 4-6 Last administered on 09/02/18 13:01; Admin Dose 5 MG; Start 09/01/18 at 10:00 Miscellaneous Information (* Miscellaneous Pharmacy Order) ASPIRIN ORDER WILL ... Q12 XX ; Start 09/05/18 at 10:00 Ipratropium [place] (Atrovent 0.02% (Neb)) 0.5 mg Q6HWA RESP THERAPY HHN Last administered on 09/09/18 07:54; Admin Dose 0.5 MG; Start 09/07/18 at 20:00 Albuterol (Proventil 0.083% (Neb)) 2.5 mg Q6H RESP THERAPY HHN Last administered on 09/09/18 07:55; Admin Dose 2.5 MG; Start 09/07/18 at 20:00 Multivit/Ca Carb/ B Cmplx/FA/Prenat (Shalonda-Jaylen) 1 tab DAILY GTB Last administered on 09/09/18 09:44; Admin Dose 1 TAB; Start 09/08/18 at 09:00 Heparin Sodium (Porcine) (Heparin (5000 Units/1ml)) 5,000 unit BID SC Last administered on 09/09/18 09:53; Admin Dose 5,000 UNIT; Start 09/08/18 at 21:00 THOMAS RILEY MD Sep 09, 2018 12:08
--- NOTE | 2018-09-09 13:19 | CONS ---
Assessment/Plan Assessment/Plan Assessment/Plan (Daily) 1. non-oliguric acute kidney injury with previously normal baseline creatinine. The patient is currently dialysis dependent. increasing urine output may be an early sign of renal recovery, but pt will continue to need HD for solute clearance and volume balance. HD today 2. HD catheter malfunctioning. will give tPA and try HD again today 3. Anemia. Continue to monitor hemoglobin and hematocrit levels. Continue Epogen. 4. Mineral bone disorder. Monitor calcium and phosphorus levels. 5. Ventilatory-dependent respiratory failure. Vent settings and ABG was reviewed. Continue to monitor. 6. Coronary artery disease status post percutaneous coronary intervention. Continue medical management. 7. Acute cerebrovascular accident. Continue current treatment plan. 8. Dysphagia. Continue tube feeding. 9. Encephalopathy, improving. 10. Status post shock. 11. Status post cardiac arrest. Consultation Date/Type/Reason Admit Date/Time Aug 04, 2018 at 23:10 Initial Consult Date 08/17/18 Requesting Provider: HARPAL AGGARWAL MD Date/Time of Note DATE: 09/09/18 TIME: 13:17 24 HR Interval Summary Free Text/Dictation tried HD today but catheter wasnt functioning denies shortness of breath or n/v dw rn gen nad cv rrr pulm ctab abd soft nd, nt +bs ext: no edema Exam/Review of Systems Exam Vitals Vital Signs Date Temp Pulse Resp B/P (MAP) Pulse Ox O2 O2 Flow FiO2 Time Delivery Rate 09/09/18 98.1 94 141/80 94 Room Air 12:00 (100) 09/09/18 20 10:55 09/09/18 5.0 28 04:40 Intake and Output 09/08/18 09/08/18 09/09/18 1515:00 23:00 07:00 IntakeIntake Total 610 ml OutputOutput Total 800 ml 240 ml BalanceBalance -800 ml 370 ml Results Result Diagram: 09/09/18 0641 09/09/18 0641 Results 24hrs Laboratory Tests Test 09/09/18 06:41 White Blood Count 10.5 Red Blood Count 2.96 L Hemoglobin 8.6 L Hematocrit 27.9 L Mean Corpuscular Volume 94.3 Mean Corpuscular Hemoglobin 29.1 Mean Corpuscular Hemoglobin Concent 30.8 L Red Cell Distribution Width 17.7 H Platelet Count 202 Mean Platelet Volume 12.3 H Immature Granulocytes % 2.000 H Neutrophils % 62.2 Lymphocytes % 23.9 Monocytes % 8.5 Eosinophils % 2.7 Basophils % 0.7 Nucleated Red Blood Cells % 0.0 Immature Granulocytes # 0.210 H Neutrophils # 6.5 Lymphocytes # 2.5 Monocytes # 0.9 Eosinophils # 0.3 Basophils # 0.1 Nucleated Red Blood Cells # 0.0 Sodium Level 134 L Potassium Level 4.0 Chloride Level 98 Carbon Dioxide Level 27 Anion Gap 9 Blood Urea Nitrogen 50 H Creatinine 2.66 H Glucose Level 108 Calcium Level 10.6 H Phosphorus Level 6.5 H Magnesium Level 2.4 Albumin 3.1 L Medications Medication Current Medications Atorvastatin Calcium (Lipitor) 80 mg DAILY@21 PO Last administered on 09/08/18at 21:47; Admin Dose 80 MG; Start 08/05/18 at 21:00 Miscellaneous Information 1 ea NOTE XX ; Start 08/05/18 at 09:00 Acetaminophen (Tylenol Liquid) 650 mg Q4H PRN PO ELEVATED TEMPERATURE Last administered on 09/01/18at 00:29; Admin Dose 650 MG; Start 08/05/18 at 11:00 Aspirin (Aspirin) 81 mg DAILY NGT Last administered on 09/09/18at 09:44; Admin Dose 81 MG; Start 08/06/18 at 09:00 Zinc Sulfate (Zinc Sulfate) 220 mg DAILY NGT Last administered on 09/09/18 09:44; Admin Dose 220 MG; Start 08/09/18 at 09:00 Folic Acid (Folic Acid) 1 mg DAILY NGT Last administered on 09/09/18 09:44; Admin Dose 1 MG; Start 08/09/18 at 09:00 Ascorbic Acid (Vitamin C) 500 mg DAILY NGT Last administered on 09/09/18at 09:43; Admin Dose 500 MG; Start 08/09/18 at 09:00 IV Flush (NS 10 ml) 10 ml PRN PRN IV IV PROTOCOL; Start 08/11/18 at 16:30 Heparin Sodium (Porcine) (Heparin (1000 Units/ml)) 3,000 unit PRN PRN CATHETER Dialysis Last administered on 09/05/18at 15:28; Admin Dose 3,000 UNIT; Start 08/12/18 at 14:30 Labetalol HCl (Labetalol) 10 mg Q4H PRN IV ELEVATED SYSTOLIC BP > 170 Last administered on 08/20/18 16:54; Admin Dose 10 MG; Start 08/14/18 at 19:00 Hydralazine HCl (Apresoline) 20 mg Q2 PRN IV ELEVATED SYSTOLIC BP Last administ ered on 09/04/18 08:58; Admin Dose 20 MG; Start 08/16/18 at 08:00 Clopidogrel Bisulfate (plaVIX) 75 mg DAILY NGT Last administered on 09/09/18 09:43; Admin Dose 75 MG; Start 08/18/18 at 13:30 Rifaximin (Xifaxan) 200 mg TID PO Last administered on 09/09/18 12:33; Admin Dose 200 MG; Start 08/19/18 at 13:00 Sevelamer Carbonate (Renvela) 2.4 gm WITH MEALS GTB Last administered on 09/09/18 11:21; Admin Dose 2.4 GM; Start 08/23/18 at 11:30 Ondansetron HCl (Zofran Inj) 4 mg Q4H PRN IV NAUSEA AND/OR VOMITING Last administered on 09/09/18 11:21; Admin Dose 4 MG; Start 08/23/18 at 14:30 Lactobacillus Acidophilus/ Rhamnosus (Culturelle) 1 cap TID GTB Last administered on 09/09/18 12:33; Admin Dose 1 CAP; Start 08/24/18 at 13:00 Albumin Human 100 ml @ 100 mls/hr WITH DIALYSIS PRN IV SBP <90 DURING DIALYSIS; Start 08/26/18 at 12:00 Sodium Chloride (NS) -To prime the dialy... DIRECTED FOR HD PRN IV HD; Start 08/26/18 at 12:00 Nitroglycerin (Nitroglycerin 2% Oint) 0.5 inch Q6 PRN TD CHEST PAIN; Start 08/27/18 at 00:30 Lorazepam (Ativan) 1 mg Q4H PRN IV ANXIETY Last administered on 08/27/18 04:14; Admin Dose 1 MG; Start 08/27/18 at 04:30 Eye Lubricant (Artificial Tears Oph) 2 drop Q2H PRN BOTH EYES dry eyes; Start 08/28/18 at 01:30 Epoetin Jarrell-epbx (RETACRIT(esrd)) 10,000 unit MoWeFr@1700 SC Last administered on 09/07/18 17:28; Admin Dose 10,000 UNIT; Start 08/29/18 at 17:00 Morphine Sulfate (morphine) 3 mg Q1H PRN GTB PAIN NOT RELIEVED BY OTHERS Last administered on 09/09/18 09:45; Admin Dose 3 MG; Start 08/29/18 at 12:00 Lansoprazole (Prevacid) 30 mg DAILY@06 GTB Last administered on 09/09/18 05:30; Admin Dose 30 MG; Start 08/30/18 at 06:00 Carvedilol (Coreg) 25 mg TID PO Last administered on 09/09/18 12:33; Admin Dose 25 MG; Start 08/30/18 at 09:00 Oxycodone HCl (Roxicodone) 5 mg Q4H PRN PO MODERATE PAIN LEVEL 4-6 Last administered on 09/02/18 13:01; Admin Dose 5 MG; Start 09/01/18 at 10:00 Miscellaneous Information (* Miscellaneous Pharmacy Order) ASPIRIN ORDER WILL ... Q12 XX ; Start 09/05/18 at 10:00 Ipratropium [place] (Atrovent 0.02% (Neb)) 0.5 mg Q6HWA RESP THERAPY HHN Last administered on 09/09/18 07:54; Admin Dose 0.5 MG; Start 09/07/18 at 20:00 Albuterol (Proventil 0.083% (Neb)) 2.5 mg Q6H RESP THERAPY HHN Last administered on 09/09/18 07:55; Admin Dose 2.5 MG; Start 09/07/18 at 20:00 Multivit/Ca Carb/ B Cmplx/FA/Prenat (Shalonda-Jaylen) 1 tab DAILY GTB Last administered on 09/09/18 09:44; Admin Dose 1 TAB; Start 09/08/18 at 09:00 Heparin Sodium (Porcine) (Heparin (5000 Units/1ml)) 5,000 unit BID SC Last administered on 09/09/18 09:53; Admin Dose 5,000 UNIT; Start 09/08/18 at 21:00 JED PEDROZA MD Sep 09, 2018 13:19
--- NOTE | 2018-09-09 16:44 | CONS ---
Consultation Date/Type/Reason Admit Date/Time Aug 04, 2018 at 23:10 Initial Consult Date SUBJECTIVE: No acute events over night. No fevers. trach to vent. VS: stable. T: 98.4 LABS reviewed. WBC- 10.5 CXR: 08/31/18: IMPRESSION: 1. Tracheostomy tube in situ. Unchanged right-sided PICC line. 2. Cardiomegaly. 3. Bibasilar infiltrates, unchanged since prior exam. Antimicrobials: Vancomycin and cefepime Microbiology: Urine culture on admission grew E. coli and Proteus, blood cultures growing oxacillin sensitive staph aureus endotracheal aspirate also growing oxacillin sensitive staph aureus ear drainage preliminary growing staph aureus, repeat blood cultures 2 days ago negative Indwelling: Trach, PEG, right femoral Devan, right upper extremity PICC line Physical examination: GEN: Obese well-developed, middle-aged woman who trach to Vent. HENT: Head atraumatic normocephalic, neck is supple PULM: chest rise symmetrical, breath sounds diminished bases. Heart: S1-S2. Abdomen distended. Bowel sounds hypoactive. Extremities: cyanotic Assessment: 1. Sepsis, status post shock 2. Healthcare associated pneumonia 3. S/p Oxacillin sensitive staph aureus bacteremia 2 to #3 4. S/p polymicrobial UTI 5. ST elevation CA, status post stent 6. Status post V. fib arrest 7. Acute renal failure, started on hemodialysis 8. 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 Anemia and thrombocytopenia 10. Acute sinusitis and bilateral mastoiditis 11. Morbid obesity 12. Diarrhea, r/o C dif Plan: Pt is stable. Continue to monitor off of antbx. D/C planning.. Requesting Provider: HARPAL AGGARWAL MD Date/Time of Note DATE: 09/09/18 TIME: 16:43 Exam/Review of Systems Exam Vitals Vital Signs Date Temp Pulse Resp B/P (MAP) Pulse Ox O2 O2 Flow FiO2 Time Delivery Rate 09/09/18 98.4 92 20 146/80 98 Mechanical 16:16 (102) Ventilator Nasal Cannula 09/09/18 5.0 28 13:59 Intake and Output 09/08/18 09/08/18 09/09/18 1515:00 23:00 07:00 IntakeIntake Total 610 ml OutputOutput Total 800 ml 240 ml BalanceBalance -800 ml 370 ml Results Result Diagram: 09/09/18 0641 09/09/18 0641 Results 24hrs Laboratory Tests Test 09/09/18 06:41 White Blood Count 10.5 Red Blood Count 2.96 L Hemoglobin 8.6 L Hematocrit 27.9 L Mean Corpuscular Volume 94.3 Mean Corpuscular Hemoglobin 29.1 Mean Corpuscular Hemoglobin Concent 30.8 L Red Cell Distribution Width 17.7 H Platelet Count 202 Mean Platelet Volume 12.3 H Immature Granulocytes % 2.000 H Neutrophils % 62.2 Lymphocytes % 23.9 Monocytes % 8.5 Eosinophils % 2.7 Basophils % 0.7 Nucleated Red Blood Cells % 0.0 Immature Granulocytes # 0.210 H Neutrophils # 6.5 Lymphocytes # 2.5 Monocytes # 0.9 Eosinophils # 0.3 Basophils # 0.1 Nucleated Red Blood Cells # 0.0 Sodium Level 134 L Potassium Level 4.0 Chloride Level 98 Carbon Dioxide Level 27 Anion Gap 9 Blood Urea Nitrogen 50 H Creatinine 2.66 H Glucose Level 108 Calcium Level 10.6 H Phosphorus Level 6.5 H Magnesium Level 2.4 Albumin 3.1 L Medications Medication Current Medications Atorvastatin Calcium (Lipitor) 80 mg DAILY@21 PO Last administered on 09/08/18at 21:47; Admin Dose 80 MG; Start 08/05/18 at 21:00 Miscellaneous Information 1 ea NOTE XX ; Start 08/05/18 at 09:00 Acetaminophen (Tylenol Liquid) 650 mg Q4H PRN PO ELEVATED TEMPERATURE Last administered on 09/01/18at 00:29; Admin Dose 650 MG; Start 08/05/18 at 11:00 Aspirin (Aspirin) 81 mg DAILY NGT Last administered on 09/09/18at 09:44; Admin Dose 81 MG; Start 08/06/18 at 09:00 Zinc Sulfate (Zinc Sulfate) 220 mg DAILY NGT Last administered on 09/09/18 09:44; Admin Dose 220 MG; Start 08/09/18 at 09:00 Folic Acid (Folic Acid) 1 mg DAILY NGT Last administered on 09/09/18at 09:44; Admin Dose 1 MG; Start 08/09/18 at 09:00 Ascorbic Acid (Vitamin C) 500 mg DAILY NGT Last administered on 09/09/18at 09:43; Admin Dose 500 MG; Start 08/09/18 at 09:00 IV Flush (NS 10 ml) 10 ml PRN PRN IV IV PROTOCOL; Start 08/11/18 at 16:30 Heparin Sodium (Porcine) (Heparin (1000 Units/ml)) 3,000 unit PRN PRN CATHETER Dialysis Last administered on 09/05/18 15:28; Admin Dose 3,000 UNIT; Start 08/12/18 at 14:30 Labetalol HCl (Labetalol) 10 mg Q4H PRN IV ELEVATED SYSTOLIC BP > 170 Last administered on 08/20/18at 16:54; Admin Dose 10 MG; Start 08/14/18 at 19:00 Hydralazine HCl (Apresoline) 20 mg Q2 PRN IV ELEVATED SYSTOLIC BP Last administered on 09/04/18 08:58; Admin Dose 20 MG; Start 08/16/18 at 08:00 Clopidogrel Bisulfate (plaVIX) 75 mg DAILY NGT Last administered on 09/09/18 09:43; Admin Dose 75 MG; Start 08/18/18 at 13:30 Rifaximin (Xifaxan) 200 mg TID PO Last administered on 09/09/18 12:33; Admin Dose 200 MG; Start 08/19/18 at 13:00 Sevelamer Carbonate (Renvela) 2.4 gm WITH MEALS GTB Last administered on 09/09/18 11:21; Admin Dose 2.4 GM; Start 08/23/18 at 11:30 Ondansetron HCl (Zofran Inj) 4 mg Q4H PRN IV NAUSEA AND/OR VOMITING Last administered on 09/09/18 11:21; Admin Dose 4 MG; Start 08/23/18 at 14:30 Lactobacillus Acidophilus/ Rhamnosus (Culturelle) 1 cap TID GTB Last administered on 09/09/18 12:33; Admin Dose 1 CAP; Start 08/24/18 at 13:00 Albumin Human 100 ml @ 100 mls/hr WITH DIALYSIS PRN IV SBP <90 DURING DIALYSIS; Start 08/26/18 at 12:00 Sodium Chloride (NS) -To prime the dialy... DIRECTED FOR HD PRN IV HD; Start 08/26/18 at 12:00 Nitroglycerin (Nitroglycerin 2% Oint) 0.5 inch Q6 PRN TD CHEST PAIN; Start 08/27/18 at 00:30 Lorazepam (Ativan) 1 mg Q4H PRN IV ANXIETY Last administered on 08/27/18 04:14; Admin Dose 1 MG; Start 08/27/18 at 04:30 Eye Lubricant (Artificial Tears Oph) 2 drop Q2H PRN BOTH EYES dry eyes; Start 08/28/18 at 01:30 Epoetin Jarrell-epbx (RETACRIT(esrd)) 10,000 unit MoWeFr@1700 SC Last administered on 09/07/18 17:28; Admin Dose 10,000 UNIT; Start 08/29/18 at 17:00 Morphine Sulfate (morphine) 3 mg Q1H PRN GTB PAIN NOT RELIEVED BY OTHERS Last administered on 09/09/18 09:45; Admin Dose 3 MG; Start 08/29/18 at 12:00 Lansoprazole (Prevacid) 30 mg DAILY@06 GTB Last administered on 09/09/18 05:30; Admin Dose 30 MG; Start 08/30/18 at 06:00 Carvedilol (Coreg) 25 mg TID PO Last administered on 09/09/18 12:33; Admin Dose 25 MG; Start 08/30/18 at 09:00 Oxycodone HCl (Roxicodone) 5 mg Q4H PRN PO MODERATE PAIN LEVEL 4-6 Last administered on 09/02/18 13:01; Admin Dose 5 MG; Start 09/01/18 at 10:00 Miscellaneous Information (* Miscellaneous Pharmacy Order) ASPIRIN ORDER WILL ... Q12 XX ; Start 09/05/18 at 10:00 Ipratropium [place] (Atrovent 0.02% (Neb)) 0.5 mg Q6HWA RESP THERAPY HHN Last administered on 09/09/18 13:58; Admin Dose 0.5 MG; Start 09/07/18 at 20:00 Albuterol (Proventil 0.083% (Neb)) 2.5 mg Q6H RESP THERAPY HHN Last administered on 09/09/18 13:58; Admin Dose 2.5 MG; Start 09/07/18 at 20:00 Multivit/Ca Carb/ B Cmplx/FA/Prenat (Shalonda-Jaylen) 1 tab DAILY GTB Last administered on 4/21/19at 09:44; Admin Dose 1 TAB; Start 09/08/18 at 09:00 Heparin Sodium (Porcine) (Heparin (5000 Units/1ml)) 5,000 unit BID SC Last administered on 09/09/18at 09:53; Admin Dose 5,000 UNIT; Start 09/08/18 at 21:00 LATASHA DONALDSON Sep 09, 2018 16:44
[2018-09-09] MEDS: ATORVASTATIN 80 MG TAB PO SCH (21:00)
[2018-09-09] MEDS: HEPARIN 1000 UNITS/ML 10 ML INJ CATHETER PRN (22:35)
[2018-09-10] VITALS (11 sets, daily range): BP systolic 131–169; BP diastolic 76–87; PULSE 81–98; RESP 18–20
[2018-09-10] MEDS: oxyCODONE 5 MG TAB PO PRN (01:41)
[2018-09-10] MEDS: ALBUTEROL 0.083% (NEB) 2.5 MG/3 ML AMP HHN SCH ×4 (02:01→20:45)
[2018-09-10] MEDS: LANSOPRAZOLE 30 MG CAP GTB SCH (05:35)
[2018-09-10] MEDS: IPRATROPIUM (NEB) 0.5 MG/2.5 ML AMP HHN SCH ×3 (07:44→20:45)
[2018-09-10] MEDS: ZINC SULFATE 220 MG CAP NGT SCH (08:23)
[2018-09-10] MEDS: RIFAXIMIN 200 MG TAB PO SCH ×3 (08:23→21:53)
[2018-09-10] MEDS: MULTIVIT/CA CARB/B CMPLX/FA TAB GTB SCH (08:23)
[2018-09-10] MEDS: SEVELAMER CARBONATE 2.4 GM PKT GTB SCH ×3 (08:23→18:15)
[2018-09-10] MEDS: CLOPIDOGREL 75 MG TAB NGT SCH (08:23)
[2018-09-10] MEDS: ASCORBIC ACID 500 MG TAB NGT SCH (08:23)
[2018-09-10] MEDS: LACTOBACILLUS RHAMNOSUS CAP GTB SCH ×3 (08:23→21:53)
[2018-09-10] MEDS: FOLIC ACID 1 MG TAB NGT SCH (08:23)
[2018-09-10] MEDS: ASPIRIN 81 MG TAB NGT SCH (08:24)
[2018-09-10] MEDS: HEPARIN 5,000 UNIT/1 ML VIAL SC SCH ×2 (08:27→22:06)
--- NOTE | 2018-09-10 09:36 | PN ---
DATE: 09/10/2018 SUBJECTIVE: The patient is stable, no events overnight. No fevers, chills, nausea, or vomiting. OBJECTIVE: VITAL SIGNS: Blood pressure is 138/85, respirations 20, pulse 85, temperature 98.7. HEENT: Head is normocephalic. NECK: Supple. HEART: Regular rate. LUNGS: Show diminished breath sounds at the base. ABDOMEN: Soft, nontender to palpation without rebound or guarding. EXTREMITIES: Negative for clubbing, cyanosis, no edema. DERMATOLOGIC: No rashes. MUSCULOSKELETAL: No joint effusion. NEUROLOGIC: No change in exam. MEDICATIONS: Reviewed. LABORATORY DATA: Reviewed. ASSESSMENT AND PLAN: 1. Oliguric acute kidney injury with previously normal baseline creatinine. Etiology of acute kidne y injury is secondary to acute tubular necrosis. The patient is currently dialysis dependent. Urina ry output; however, has been increasing possibly signs of early recovery. Continue to monitor. The patient had hemodialysis yesterday. Monitor for further signs of renal recovery. 2. Access. The patient has a Devan catheter, status post cerebrovascular accident. Continue to m onitor. The patient may require Perm-A-Cath; however, if there are signs of renal recovery, we will defer Perm-A-Cath placement at this time. 3. Anemia. Continue to monitor hemoglobin and hematocrit levels. Continue Epogen. 4. Mineral bone disorder. Monitor calcium and phosphorus levels. 5. Ventilator-dependent respiratory failure. Vent settings and ABG was reviewed. Continue to monit or. 6. Coronary artery disease, status post percutaneous coronary intervention. Continue medical manage ment. 7. Acute cerebrovascular accident. Continue current treatment plan. 8. Dysphagia. Continue tube feeding. 9. Encephalopathy, improving. 10. Status post shock. 11. Status post cardiac arrest. Dictated By: BHUMI REDDY DO NR/NTS Conf#: [id number] DID#: [id number] CC: LAUREN GREWAL MD; DANIAL TUCKER MD; HARPAL PEDROZA MD;*EndCC*
--- NOTE | 2018-09-10 10:25 | PN ---
Date/Time of Note Date/Time of Note DATE: 09/10/18 TIME: 10:24 Objective Vitals Vital Signs Date Temp Pulse Resp B/P (MAP) Pulse Ox O2 O2 Flow FiO2 Time Delivery Rate 09/10/18 92 18 100 Aerosol 5.0 28 07:45 09/10/18 98.7 138/85 07:37 (102) Intake and Output 09/09/18 09/09/18 09/10/18 1414:59 22:59 06:59 IntakeIntake Total 610 ml 640 ml OutputOutput Total 550 ml 2850 ml 100 ml BalanceBalance -550 ml -2240 ml 540 ml Results Result Diagram: 09/10/18 0716 09/10/18 0716 Medications Medications Current Medications Atorvastatin Calcium (Lipitor) 80 mg DAILY@21 PO Last administered on 09/09/18at 21:00; Admin Dose 80 MG; Start 08/05/18 at 21:00 Miscellaneous Information 1 ea NOTE XX ; Start 08/05/18 at 09:00 Acetaminophen (Tylenol Liquid) 650 mg Q4H PRN PO ELEVATED TEMPERATURE Last administered on 09/01/18at 00:29; Admin Dose 650 MG; Start 08/05/18 at 11:00 Aspirin (Aspirin) 81 mg DAILY NGT Last administered on 09/10/18 08:24; Admin Dose 81 MG; Start 08/06/18 at 09:00 Zinc Sulfate (Zinc Sulfate) 220 mg DAILY NGT Last administered on 09/10/18 08:23; Admin Dose 220 MG; Start 08/09/18 at 09:00 Folic Acid (Folic Acid) 1 mg DAILY NGT Last administered on 09/10/18 08:23; Admin Dose 1 MG; Start 08/09/18 at 09:00 Ascorbic Acid (Vitamin C) 500 mg DAILY NGT Last administered on 09/10/18at 08:2 3; Admin Dose 500 MG; Start 08/09/18 at 09:00 IV Flush (NS 10 ml) 10 ml PRN PRN IV IV PROTOCOL; Start 08/11/18 at 16:30 Heparin Sodium (Porcine) (Heparin (1000 Units/ml)) 3,000 unit PRN PRN CATHETER Dialysis Last administered on 09/09/18at 22:35; Admin Dose 3,000 UNIT; Start 08/12/18 at 14:30 Labetalol HCl (Labetalol) 10 mg Q4H PRN IV ELEVATED SYSTOLIC BP > 170 Last administered on 08/20/18 16:54; Admin Dose 10 MG; Start 08/14/18 at 19:00 Hydralazine HCl (Apresoline) 20 mg Q2 PRN IV ELEVATED SYSTOLIC BP Last administered on 09/04/18 08:58; Admin Dose 20 MG; Start 08/16/18 at 08:00 Clopidogrel Bisulfate (plaVIX) 75 mg DAILY NGT Last administered on 09/10/18 08:23; Admin Dose 75 MG; Start 08/18/18 at 13:30 Rifaximin (Xifaxan) 200 mg TID PO Last administered on 09/10/18 08:23; Admin D ose 200 MG; Start 08/19/18 at 13:00 Sevelamer Carbonate (Renvela) 2.4 gm WITH MEALS GTB Last administered on 09/10/18 08:23; Admin Dose 2.4 GM; Start 08/23/18 at 11:30 Ondansetron HCl (Zofran Inj) 4 mg Q4H PRN IV NAUSEA AND/OR VOMITING Last administered on 09/09/18at 11:21; Admin Dose 4 MG; Start 08/23/18 at 14:30 Lactobacillus Acidophilus/ Rhamnosus (Culturelle) 1 cap TID GTB Last administered on 09/10/18 08:23; Admin Dose 1 CAP; Start 08/24/18 at 13:00 Albumin Human 100 ml @ 100 mls/hr WITH DIALYSIS PRN IV SBP <90 DURING DIALYSIS; Start 08/26/18 at 12:00 Sodium Chloride (NS) -To prime the dialy... DIRECTED FOR HD PRN IV HD; Start 08/26/18 at 12:00 Nitroglycerin (Nitroglycerin 2% Oint) 0.5 inch Q6 PRN TD CHEST PAIN; Start 08/27/18 at 00:30 Lorazepam (Ativan) 1 mg Q4H PRN IV ANXIETY Last administered on 08/27/18at 04:14; Admin Dose 1 MG; Start 08/27/18 at 04:30 Eye Lubricant (Artificial Tears Oph) 2 drop Q2H PRN BOTH EYES dry eyes; Start 08/28/18 at 01:30 Epoetin Jarrell-epbx (RETACRIT(esrd)) 10,000 unit MoWeFr@1700 SC Last administered on 09/07/18 17:28; Admin Dose 10,000 UNIT; Start 08/29/18 at 17:00 Morphine Sulfate (morphine) 3 mg Q1H PRN GTB PAIN NOT RELIEVED BY OTHERS Last administered on 09/09/18 09:45; Admin Dose 3 MG; Start 08/29/18 at 12:00 Lansoprazole (Prevacid) 30 mg DAILY@06 GTB Last administered on 09/10/18 05:35; Admin Dose 30 MG; Start 08/30/18 at 06:00 Carvedilol (Coreg) 25 mg TID PO Last administered on 09/10/18 08:24; Admin Dose 25 MG; Start 08/30/18 at 09:00 Oxycodone HCl (Roxicodone) 5 mg Q4H PRN PO MODERATE PAIN LEVEL 4-6 Last administered on 09/10/18 01:41; Admin Dose 5 MG; Start 09/01/18 at 10:00 Miscellaneous Information (* Miscellaneous Pharmacy Order) ASPIRIN ORDER WILL ... Q12 XX ; Start 09/05/18 at 10:00 Ipratropium [place] (Atrovent 0.02% (Neb)) 0.5 mg Q6HWA RESP THERAPY HHN Last administered on 09/10/18 07:44; Admin Dose 0.5 MG; Start 09/07/18 at 20:00 Albuterol (Proventil 0.083% (Neb)) 2.5 mg Q6H RESP THERAPY HHN Last administered on 09/10/18 07:44; Admin Dose 2.5 MG; Start 09/07/18 at 20:00 Multivit/Ca Carb/ B Cmplx/FA/Prenat (Shalonda-Jaylen) 1 tab DAILY GTB Last administered on 09/10/18 08:23; Admin Dose 1 TAB; Start 09/08/18 at 09:00 Heparin Sodium (Porcine) (Heparin (5000 Units/1ml)) 5,000 unit BID SC Last administered on 09/10/18 08:27; Admin Dose 5,000 UNIT; Start 09/08/18 at 21:00 VTE Prophylaxis Risk score (from Nsg)>0 risk: 11 SCD applied (from Nsg): No SCD contraindication: other Lines/Catheters IV Catheter Type: Aguilar in Place: No Assessment/Plan Hospital Course Subjective Patient in good spirits, no complaints of pain Objective Physical exam General: Patient is laying in bed and answers questions appropriately, has trach Mentation: Patient is alert and oriented 4, Head: Normocephalic atraumatic Eyes: EOMI, pupils reactive to light Neck: Supple, nontender, midline Respiratory: Clear to auscultation bilaterally Cardiovascular: regular rate, no obvious murmurs Gastrointestinal: non-tender to palpation, bowel sounds heard. Neurological: Moves all extremities spontaneously Skin: No new skin lesions Assessment/Plan 1. CAD s/p PCI x3- stable - will continue monitoring for any concerning cardiac sx - Cardiology on board and appreciate recommendations. Will need to continue aspirin for life and DAPT for 1 year - s/p emergent Cath 08/05 with successful PTCA and stenting of proximal and mid LAD, PTCA of the large first diagonal and thrombectomy of the LAD - Repeat PCI on 08/07 performed with stenting to LCx - Repeat PCI on 09/04 with stenting ostial/proximal right coronary artery 2. Acute hypoxic respiratory failure- improving - Remains stable off vent. Per pulm with downsize trach once secretions minimize - Speech consulted for trials of PMV and advancing diet. - Pulm on board and appreciate recommendations. 3. Acute toxic/metabolic encephalopathy- resolved - Patient back to baseline and doing well. - Neurology input appreciated and will reconsult if needed 4. Bilateral CVA - PT/OT on board - Found on MRI, likely thromboembolic secondary to cardiopulmonary arrest per neurology - Continue on aspirin/Plavix and Lipitor 5. Anemia, blood loss and renal disease- stable - Hgb remains stable, transfuse as needed 6. Bilateral Pneumonia- resolved - ID on board and appreciate recommendations. Monitor off antibiotics 7. Septic shock secondary to PNA and bacteremia- resolved - Blood cultures and sputum culture results noted. - ID on board 8. Renal failure on HD - Nephrology on board and appreciate recommendations. Continue HD. Plans for permacath placement prior to discharge - secondary to septic shock, ATN vs prerenal vs contrast induced nephropathy 9. Diabetes - A1c noted - ISS not needed 10. S/p V-fib cardiac arrest secondary to STEMI - Completed hypothermia protocol 11. Disposition - Will continue current treatment and monitor for decrease in secretions prior to downsizing trach and capping trial. CM on board for SNF placement HARPAL PEDROZA Sep 10, 2018 10:25
--- NOTE | 2018-09-10 14:07 | CONS ---
Assessment/Plan Assessment/Plan Hospital Course (Demo Recall) Alert, feels goods, no fevers, family at bedside Antimicrobials: none Microbiology: Urine culture on admission grew E. coli and Proteus, blood cultures growing oxacillin sensitive staph aureus endotracheal aspirate also growing oxacillin sensitive staph aureus ear drainage preliminary growing staph aureus, repeat blood cultures 2 days ago negative Indwelling: Trach, PEG, right femoral Devan, right upper extremity PICC line Physical examination: Obese well-developed middle-aged woman who is intubated in no distress. Head atraumatic normocephalic neck is supple chest rise symmetrica l breath sounds diminished bases. Heart: S1-S2. Abdomen distended. Bowel sounds hypoactive. Extremities cyanotic Assessment: 1. S/p sepsis 2. Healthcare associated pneumonia==> treated 3. S/p Oxacillin sensitive staph aureus bacteremia 2 to #3 4. S/p polymicrobial UTI 5. STEMI, status post stent 6. Status post V. fib arrest 7. Acute renal failure, started on hemodialysis 8. 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 Anemia and thrombocytopenia 10. Acute sinusitis and bilateral mastoiditis==> treated 11. Morbid obesity Plan: Overall doing much better, off vent, continue observing off abx Consultation Date/Type/Reason Admit Date/Time Aug 04, 2018 at 23:10 Initial Consult Date 08/12/18 Type of Consult id Requesting Provider: HARPAL AGGARWAL MD Date/Time of Note DATE: 09/10/18 TIME: 14:05 Exam/Review of Systems Exam Vitals Vital Signs Date Temp Pulse Resp B/P (MAP) Pulse Ox O2 O2 Flow FiO2 Time Delivery Rate 09/10/18 98.7 89 20 150/84 99 Mechanical 11:38 (106) Ventilator 09/10/18 5.0 28 07:45 Intake and Output 09/09/18 09/09/18 09/10/18 1515:00 23:00 07:00 IntakeIntake Total 610 ml 640 ml OutputOutput Total 550 ml 2850 ml 100 ml BalanceBalance -550 ml -2240 ml 540 ml Results Result Diagram: 09/10/18 0716 09/10/18 0716 Results 24hrs Laboratory Tests Test 09/10/18 07:16 White Blood Count 8.9 Red Blood Count 3.02 L Hemoglobin 9.0 L Hematocrit 29.5 L Mean Corpuscular Volume 97.7 Mean Corpuscular Hemoglobin 29.8 Mean Corpuscular Hemoglobin Concent 30.5 L Red Cell Distribution Width 18.4 H Platelet Count 182 Mean Platelet Volume 11.9 H Immature Granulocytes % 1.900 H Neutrophils % 60.3 Lymphocytes % 25.2 Monocytes % 8.8 Eosinophils % 2.9 Basophils % 0.9 Nucleated Red Blood Cells % 0.0 Immature Granulocytes # 0.170 H Neutrophils # 5.3 Lymphocytes # 2.2 Monocytes # 0.8 Eosinophils # 0.3 Basophils # 0.1 Nucleated Red Blood Cells # 0.0 Sodium Level 137 Potassium Level 4.2 Chloride Level 102 Carbon Dioxide Level 28 Anion Gap 7 Blood Urea Nitrogen 29 #H Creatinine 1.91 H Glucose Level 99 Calcium Level 10.2 Phosphorus Level 4.5 # Magnesium Level 2.2 Albumin 3.2 L Medications Medication Current Medications Atorvastatin Calcium (Lipitor) 80 mg DAILY@21 PO Last administered on 09/09/18at 21:00; Admin Dose 80 MG; Start 08/05/18 at 21:00 Miscellaneous Information 1 ea NOTE XX ; Start 08/05/18 at 09:00 Acetaminophen (Tylenol Liquid) 650 mg Q4H PRN PO ELEVATED TEMPERATURE Last administered on 09/01/18at 00:29; Admin Dose 650 MG; Start 08/05/18 at 11:00 Aspirin (Aspirin) 81 mg DAILY NGT Last administered on 09/10/18at 08:24; Admin Dose 81 MG; Start 08/06/18 at 09:00 Zinc Sulfate (Zinc Sulfate) 220 mg DAILY NGT Last administered on 09/10/18 08:23; Admin Dose 220 MG; Start 08/09/18 at 09:00 Folic Acid (Folic Acid) 1 mg DAILY NGT Last administered on 09/10/18at 08:23; Admin Dose 1 MG; Start 08/09/18 at 09:00 Ascorbic Acid (Vitamin C) 500 mg DAILY NGT Last administered on 09/10/18at 08:2 3; Admin Dose 500 MG; Start 08/09/18 at 09:00 IV Flush (NS 10 ml) 10 ml PRN PRN IV IV PROTOCOL; Start 08/11/18 at 16:30 Heparin Sodium (Porcine) (Heparin (1000 Units/ml)) 3,000 unit PRN PRN CATHETER Dialysis Last administered on 09/09/18 22:35; Admin Dose 3,000 UNIT; Start 08/12/18 at 14:30 Labetalol HCl (Labetalol) 10 mg Q4H PRN IV ELEVATED SYSTOLIC BP > 170 Last administered on 08/20/18 16:54; Admin Dose 10 MG; Start 08/14/18 at 19:00 Hydralazine HCl (Apresoline) 20 mg Q2 PRN IV ELEVATED SYSTOLIC BP Last administered on 09/04/18 08:58; Admin Dose 20 MG; Start 08/16/18 at 08:00 Clopidogrel Bisulfate (plaVIX) 75 mg DAILY NGT Last administered on 09/10/18 08:23; Admin Dose 75 MG; Start 08/18/18 at 13:30 Rifaximin (Xifaxan) 200 mg TID PO Last administered on 09/10/18 12:52; Admin D ose 200 MG; Start 08/19/18 at 13:00 Sevelamer Carbonate (Renvela) 2.4 gm WITH MEALS GTB Last administered on 09/10/18 12:18; Admin Dose 2.4 GM; Start 08/23/18 at 11:30 Ondansetron HCl (Zofran Inj) 4 mg Q4H PRN IV NAUSEA AND/OR VOMITING Last administered on 09/09/18 11:21; Admin Dose 4 MG; Start 08/23/18 at 14:30 Lactobacillus Acidophilus/ Rhamnosus (Culturelle) 1 cap TID GTB Last administered on 09/10/18 12:52; Admin Dose 1 CAP; Start 08/24/18 at 13:00 Albumin Human 100 ml @ 100 mls/hr WITH DIALYSIS PRN IV SBP <90 DURING DIALYSIS; Start 08/26/18 at 12:00 Sodium Chloride (NS) -To prime the dialy... DIRECTED FOR HD PRN IV HD; Start 08/26/18 at 12:00 Nitroglycerin (Nitroglycerin 2% Oint) 0.5 inch Q6 PRN TD CHEST PAIN; Start 08/27/18 at 00:30 Lorazepam (Ativan) 1 mg Q4H PRN IV ANXIETY Last administered on 08/27/18 04:14; Admin Dose 1 MG; Start 08/27/18 at 04:30 Eye Lubricant (Artificial Tears Oph) 2 drop Q2H PRN BOTH EYES dry eyes; Start 08/28/18 at 01:30 Epoetin Jarrell-epbx (RETACRIT(esrd)) 10,000 unit MoWeFr@1700 SC Last administered on 09/07/18 17:28; Admin Dose 10,000 UNIT; Start 08/29/18 at 17:00 Morphine Sulfate (morphine) 3 mg Q1H PRN GTB PAIN NOT RELIEVED BY OTHERS Last administered on 09/09/18 09:45; Admin Dose 3 MG; Start 08/29/18 at 12:00 Lansoprazole (Prevacid) 30 mg DAILY@06 GTB Last administered on 09/10/18 05:35; Admin Dose 30 MG; Start 08/30/18 at 06:00 Carvedilol (Coreg) 25 mg TID PO Last administered on 09/10/18 12:53; Admin Dose 25 MG; Start 08/30/18 at 09:00 Oxycodone HCl (Roxicodone) 5 mg Q4H PRN PO MODERATE PAIN LEVEL 4-6 Last administered on 09/10/18 01:41; Admin Dose 5 MG; Start 09/01/18 at 10:00 Miscellaneous Information (* Miscellaneous Pharmacy Order) ASPIRIN ORDER WILL ... Q12 XX ; Start 09/05/18 at 10:00 Ipratropium [place] (Atrovent 0.02% (Neb)) 0.5 mg Q6HWA RESP THERAPY HHN Last administered on 09/10/18 07:44; Admin Dose 0.5 MG; Start 09/07/18 at 20:00 Albuterol (Proventil 0.083% (Neb)) 2.5 mg Q6H RESP THERAPY HHN Last administered on 09/10/18 07:44; Admin Dose 2.5 MG; Start 09/07/18 at 20:00 Multivit/Ca Carb/ B Cmplx/FA/Prenat (Shalonda-Jaylen) 1 tab DAILY GTB Last administered on 09/10/18 08:23; Admin Dose 1 TAB; Start 09/08/18 at 09:00 Heparin Sodium (Porcine) (Heparin (5000 Units/1ml)) 5,000 unit BID SC Last administered on 4/22/19at 08:27; Admin Dose 5,000 UNIT; Start 09/08/18 at 21:00 WIN LUCIANO NP Sep 10, 2018 14:07
--- NOTE | 2018-09-10 14:30 | CONS ---
Consult Date/Type/Reason Admit Date/Time Aug 04, 2018 at 23:10 Initial Consult Date 08/05/18 Type of Consult Pulmonary Requesting Provider: HARPAL AGGARWAL MD Date/Time of Note DATE: 09/10/18 TIME: 14:28 Subjective Patient appears comfortable this morning no respiratory distress. Remains stable off mechanical ventilation. Objective Vital Signs Date Temp Pulse Resp B/P (MAP) Pulse Ox O2 O2 Flow FiO2 Time Delivery Rate 09/10/18 98.7 89 20 150/84 99 Mechanical 11:38 (106) Ventilator 09/10/18 5.0 28 07:45 Intake and Output 09/09/18 09/09/18 09/10/18 1414:59 22:59 06:59 IntakeIntake Total 610 ml 640 ml OutputOutput Total 550 ml 2850 ml 100 ml BalanceBalance -550 ml -2240 ml 540 ml Exam GENERAL: Pleasant young lady on cool aerosol. VITAL SIGNS: per chart NECK: Supple. No JVD or lymphadenopathy. CARDIAC EXAM: S1, S2. No added sounds or murmurs. CHEST: clear bilaterally, No added sounds, rales or wheezes ABDOMEN: Soft, nontender. No guarding or rebound. EXTREMITIES: No cyanosis, clubbing or edema. NEUROLOGIC: Generalized weakness. No focal deficits. Vent Setting Ventilator Support Mode: SIMV Fraction of Inspired Oxygen pe: 28 Positive End Expiratory Pressu: 5.0 Results/Medications Result Diagram: 09/10/18 0716 09/10/18 0716 Results 24 hrs Laboratory Tests Test 09/10/18 07:16 White Blood Count 8.9 Red Blood Count 3.02 L Hemoglobin 9.0 L Hematocrit 29.5 L Mean Corpuscular Volume 97.7 Mean Corpuscular Hemoglobin 29.8 Mean Corpuscular Hemoglobin Concent 30.5 L Red Cell Distribution Width 18.4 H Platelet Count 182 Mean Platelet Volume 11.9 H Immature Granulocytes % 1.900 H Neutrophils % 60.3 Lymphocytes % 25.2 Monocytes % 8.8 Eosinophils % 2.9 Basophils % 0.9 Nucleated Red Blood Cells % 0.0 Immature Granulocytes # 0.170 H Neutrophils # 5.3 Lymphocytes # 2.2 Monocytes # 0.8 Eosinophils # 0.3 Basophils # 0.1 Nucleated Red Blood Cells # 0.0 Sodium Level 137 Potassium Level 4.2 Chloride Level 102 Carbon Dioxide Level 28 Anion Gap 7 Blood Urea Nitrogen 29 #H Creatinine 1.91 H Glucose Level 99 Calcium Level 10.2 Phosphorus Level 4.5 # Magnesium Level 2.2 Albumin 3.2 L Medications Current Medications Atorvastatin Calcium (Lipitor) 80 mg DAILY@21 PO Last administered on 09/09/18 21:00; Admin Dose 80 MG; Start 08/05/18 at 21:00 Miscellaneous Information 1 ea NOTE XX ; Start 08/05/18 at 09:00 Acetaminophen (Tylenol Liquid) 650 mg Q4H PRN PO ELEVATED TEMPERATURE Last administered on 09/01/18 00:29; Admin Dose 650 MG; Start 08/05/18 at 11:00 Aspirin (Aspirin) 81 mg DAILY NGT Last administered on 09/10/18 08:24; Admin Dose 81 MG; Start 08/06/18 at 09:00 Zinc Sulfate (Zinc Sulfate) 220 mg DAILY NGT Last administered on 09/10/18 08:23; Admin Dose 220 MG; Start 08/09/18 at 09:00 Folic Acid (Folic Acid) 1 mg DAILY NGT Last administered on 09/10/18 08:23; Admin Dose 1 MG; Start 08/09/18 at 09:00 Ascorbic Acid (Vitamin C) 500 mg DAILY NGT Last administered on 09/10/18 08:23; Admin Dose 500 MG; Start 08/09/18 at 09:00 IV Flush (NS 10 ml) 10 ml PRN PRN IV IV PROTOCOL; Start 08/11/18 at 16:30 Heparin Sodium (Porcine) (Heparin (1000 Units/ml)) 3,000 unit PRN PRN CATHETER Dialysis Last administered on 09/09/18 22:35; Admin Dose 3,000 UNIT; Start 08/12/18 at 14:30 Labetalol HCl (Labetalol) 10 mg Q4H PRN IV ELEVATED SYSTOLIC BP > 170 Last administered on 08/20/18 16:54; Admin Dose 10 MG; Start 08/14/18 at 19:00 Hydralazine HCl (Apresoline) 20 mg Q2 PRN IV ELEVATED SYSTOLIC BP Last adminis tered on 09/04/18 08:58; Admin Dose 20 MG; Start 08/16/18 at 08:00 Clopidogrel Bisulfate (plaVIX) 75 mg DAILY NGT Last administered on 09/10/18 08:23; Admin Dose 75 MG; Start 08/18/18 at 13:30 Rifaximin (Xifaxan) 200 mg TID PO Last administered on 09/10/18 12:52; Admin Dose 200 MG; Start 08/19/18 at 13:00 Sevelamer Carbonate (Renvela) 2.4 gm WITH MEALS GTB Last administered on 09/10/18 12:18; Admin Dose 2.4 GM; Start 08/23/18 at 11:30 Ondansetron HCl (Zofran Inj) 4 mg Q4H PRN IV NAUSEA AND/OR VOMITING Last administered on 09/09/18 11:21; Admin Dose 4 MG; Start 08/23/18 at 14:30 Lactobacillus Acidophilus/ Rhamnosus (Culturelle) 1 cap TID GTB Last administered on 09/10/18 12:52; Admin Dose 1 CAP; Start 08/24/18 at 13:00 Albumin Human 100 ml @ 100 mls/hr WITH DIALYSIS PRN IV SBP <90 DURING DIALYSIS; Start 08/26/18 at 12:00 Sodium Chloride (NS) -To prime the dialy... DIRECTED FOR HD PRN IV HD; Start 08/26/18 at 12:00 Nitroglycerin (Nitroglycerin 2% Oint) 0.5 inch Q6 PRN TD CHEST PAIN; Start 08/27/18 at 00:30 Lorazepam (Ativan) 1 mg Q4H PRN IV ANXIETY Last administered on 08/27/18 04:14; Admin Dose 1 MG; Start 08/27/18 at 04:30 Eye Lubricant (Artificial Tears Oph) 2 drop Q2H PRN BOTH EYES dry eyes; Start 08/28/18 at 01:30 Epoetin Jarrell-epbx (RETACRIT(esrd)) 10,000 unit MoWeFr@1700 SC Last administered on 09/07/18 17:28; Admin Dose 10,000 UNIT; Start 08/29/18 at 17:00 Morphine Sulfate (morphine) 3 mg Q1H PRN GTB PAIN NOT RELIEVED BY OTHERS Last administered on 09/09/18 09:45; Admin Dose 3 MG; Start 08/29/18 at 12:00 Lansoprazole (Prevacid) 30 mg DAILY@06 GTB Last administered on 09/10/18 05:35; Admin Dose 30 MG; Start 08/30/18 at 06:00 Carvedilol (Coreg) 25 mg TID PO Last administered on 09/10/18 12:53; Admin Dose 25 MG; Start 08/30/18 at 09:00 Oxycodone HCl (Roxicodone) 5 mg Q4H PRN PO MODERATE PAIN LEVEL 4-6 Last administered on 09/10/18 01:41; Admin Dose 5 MG; Start 09/01/18 at 10:00 Miscellaneous Information (* Miscellaneous Pharmacy Order) ASPIRIN ORDER WILL ... Q12 XX ; Start 09/05/18 at 10:00 Ipratropium [place] (Atrovent 0.02% (Neb)) 0.5 mg Q6HWA RESP THERAPY HHN Last administered on 09/10/18 07:44; Admin Dose 0.5 MG; Start 09/07/18 at 20:00 Albuterol (Proventil 0.083% (Neb)) 2.5 mg Q6H RESP THERAPY HHN Last administered on 09/10/18 07:44; Admin Dose 2.5 MG; Start 09/07/18 at 20:00 Multivit/Ca Carb/ B Cmplx/FA/Prenat (Shalonda-Jaylen) 1 tab DAILY GTB Last administered on 09/10/18 08:23; Admin Dose 1 TAB; Start 09/08/18 at 09:00 Heparin Sodium (Porcine) (Heparin (5000 Units/1ml)) 5,000 unit BID SC Last administered on 09/10/18 08:27; Admin Dose 5,000 UNIT; Start 09/08/18 at 21:00 Assessment/Plan Hospital Course (Demo Recall) IMP: 1. Ventricular Fibrillation Arrest--s/p ROSC 2/2 STEMI s/p PCI status post hypothermia protocol. Multivessel coronary artery disease status post stent placement x3 2. STEMI, Status post stent x3 placement. 3. CVA multiple infarcts noted. 4. Hypoxemic respiratory failure no status post tracheostomy placement 5. HUSEYIN--likely ATN continues hemodialysis 6. Ischemic hepatopathy--2/2 arrest 7. Resolving encephalopathy RECS: 1. Remains stable off mechanical ventilation will downsize tracheostomy and then attempt capping trials. 2. Trach site care. 3. Encourage out of bed. 4. PEG tube feeding 5. Hemodialysis as tolerated Discussed with speech therapy. CHINO ANDERSON MD, [facility] Sep 10, 2018 14:30
--- NOTE | 2018-09-10 15:08 | CONS ---
Consult Date/Type/Reason Admit Date/Time Aug 04, 2018 at 23:10 Initial Consult Date 08/05/18 Type of Consultation: cv Requesting Provider: HARPAL AGGARWAL MD Date/Time of Note DATE: 09/10/18 TIME: 15:07 Subjective Interventional cardiology follow-up progress note Subjective: Events noted discussed with the staff and tele was reviewed. no V tachycardia o r V fibrillation. BP is stable she denies any cp to me now pt had no more issues with trach last night NO Groin pain or bleeding events noted s/p PCI 100% occluded LAD 08/04 S/P PCI LCX/ OM s/p trach 08/22/18 PCI RCA 09/04/18 Objective: General: Obese female no acute distress s/p trach on O2 HEENT: NC/AT. pupils are equal. round. NECK: . no stridor. s/p trach on oxygen CV: RRR. systolic murmur; no gallop or rubs. PULM: no wheezing mild rhonchi. GI: Obese SOFT, NT, ND, no rebound or guarding s/pPEG Extremity: +B/L LE edema. no clubbing. neuro: awake and follows commands Psych: Calm now rectal: deferred vascular L femoral no bleeding or hematoma EKG August 06, 2018 was personally within normal sinus rhythm. T wave inversions anterior and inferior leads ECG 08/07: NSR ST T abn c/w ant/lat ischemia CXR 08/14: Nonspecific patchy bilateral pulmonary opacity, mildly improved on the right. No pneumothorax. Endotracheal tube, nasogastric tube, and right-sided PICC line rem ain in place. Stable mild cardiomegaly. The osseous structures are remarkable for degenerative enthesopathy of the spine. Chest x-ray done August 06 shows:No evidence for active cardiopulmonary disease. CXR 08/19: Diffuse bilateral reticular nodular infiltrates unchanged. Question bronchopneumonia versus failure. CXR 08/28/18: Allowing for support structures overlying the right base, no significant change. Left mid and bibasilar air space opacities/infiltrates are again present. Lines and tubes are stable ECHO personally reviewed Normal left ventricular cavity size. Normal left ventricular wall thickness. Ejection fraction is visually estimated at 55-65 %. Normal appearance of the mitral valve. Mitral valve is not well visualized. No mitral valve regurgitation is seen. Aortic valve not well visualized. No aortic regurgitation. Normal appearance of the tricuspid valve. Unable to obtain RVSP due to minimal presence of tricuspid regurgitation. No evidence of tricuspid regurgitation. Normal pericardium with no significant pericardial effusion. suboptimal study. Objective Vitals Vital Signs Date Temp Pulse Resp B/P (MAP) Pulse Ox O2 O2 Flow FiO2 Time Delivery Rate 09/10/18 92 18 100 Aerosol 5.0 28 14:43 09/10/18 98.7 150/84 11:38 (106) Intake and Output 09/09/18 09/09/18 09/10/18 1515:00 23:00 07:00 IntakeIntake Total 610 ml 640 ml OutputOutput Total 550 ml 2850 ml 100 ml BalanceBalance -550 ml -2240 ml 540 ml Results/Medications Result Diagram: 09/10/1871509/10/1816 Results 24 hrs Laboratory Tests Test 09/10/18 07:16 White Blood Count 8.9 Red Blood Count 3.02 L Hemoglobin 9.0 L Hematocrit 29.5 L Mean Corpuscular Volume 97.7 Mean Corpuscular Hemoglobin 29.8 Mean Corpuscular Hemoglobin Concent 30.5 L Red Cell Distribution Width 18.4 H Platelet Count 182 Mean Platelet Volume 11.9 H Immature Granulocytes % 1.900 H Neutrophils % 60.3 Lymphocytes % 25.2 Monocytes % 8.8 Eosinophils % 2.9 Basophils % 0.9 Nucleated Red Blood Cells % 0.0 Immature Granulocytes # 0.170 H Neutrophils # 5.3 Lymphocytes # 2.2 Monocytes # 0.8 Eosinophils # 0.3 Basophils # 0.1 Nucleated Red Blood Cells # 0.0 Sodium Level 137 Potassium Level 4.2 Chloride Level 102 Carbon Dioxide Level 28 Anion Gap 7 Blood Urea Nitrogen 29 #H Creatinine 1.91 H Glucose Level 99 Calcium Level 10.2 Phosphorus Level 4.5 # Magnesium Level 2.2 Albumin 3.2 L Medications Current Medications Atorvastatin Calcium (Lipitor) 80 mg DAILY@21 PO Last administered on 09/09/18at 21:00; Admin Dose 80 MG; Start 08/05/18 at 21:00 Miscellaneous Information 1 ea NOTE XX ; Start 08/05/18 at 09:00 Acetaminophen (Tylenol Liquid) 650 mg Q4H PRN PO ELEVATED TEMPERATURE Last administered on 09/01/18at 00:29; Admin Dose 650 MG; Start 08/05/18 at 11:00 Aspirin (Aspirin) 81 mg DAILY NGT Last administered on 09/10/18 08:24; Admin Dose 81 MG; Start 08/06/18 at 09:00 Zinc Sulfate (Zinc Sulfate) 220 mg DAILY NGT Last administered on 09/10/18 08:23; Admin Dose 220 MG; Start 08/09/18 at 09:00 Folic Acid (Folic Acid) 1 mg DAILY NGT Last administered on 09/10/18 08:23; Ad min Dose 1 MG; Start 08/09/18 at 09:00 Ascorbic Acid (Vitamin C) 500 mg DAILY NGT Last administered on 09/10/18 08:23; Admin Dose 500 MG; Start 08/09/18 at 09:00 IV Flush (NS 10 ml) 10 ml PRN PRN IV IV PROTOCOL; Start 08/11/18 at 16:30 Heparin Sodium (Porcine) (Heparin (1000 Units/ml)) 3,000 unit PRN PRN CATHETER Dialysis Last administered on 09/09/18 22:35; Admin Dose 3,000 UNIT; Start 08/12/18 at 14:30 Labetalol HCl (Labetalol) 10 mg Q4H PRN IV ELEVATED SYSTOLIC BP > 170 Last administered on 08/20/18 16:54; Admin Dose 10 MG; Start 08/14/18 at 19:00 Hydralazine HCl (Apresoline) 20 mg Q2 PRN IV ELEVATED SYSTOLIC BP Last administered on 09/04/18 08:58; Admin Dose 20 MG; Start 08/16/18 at 08:00 Clopidogrel Bisulfate (plaVIX) 75 mg DAILY NGT Last administered on 09/10/18 08:23; Admin Dose 75 MG; Start 08/18/18 at 13:30 Rifaximin (Xifaxan) 200 mg TID PO Last administered on 09/10/18 12:52; Admin Dose 200 MG; Start 08/19/18 at 13:00 Sevelamer Carbonate (Renvela) 2.4 gm WITH MEALS GTB Last administered on 09/10/18 12:18; Admin Dose 2.4 GM; Start 08/23/18 at 11:30 Ondansetron HCl (Zofran Inj) 4 mg Q4H PRN IV NAUSEA AND/OR VOMITING Last administered on 09/09/18 11:21; Admin Dose 4 MG; Start 08/23/18 at 14:30 Lactobacillus Acidophilus/ Rhamnosus (Culturelle) 1 cap TID GTB Last administered on 09/10/18 12:52; Admin Dose 1 CAP; Start 08/24/18 at 13:00 Albumin Human 100 ml @ 100 mls/hr WITH DIALYSIS PRN IV SBP <90 DURING DIALYSIS; Start 08/26/18 at 12:00 Sodium Chloride (NS) -To prime the dialy... DIRECTED FOR HD PRN IV HD; Start 08/26/18 at 12:00 Nitroglycerin (Nitroglycerin 2% Oint) 0.5 inch Q6 PRN TD CHEST PAIN; Start 08/27/18 at 00:30 Lorazepam (Ativan) 1 mg Q4H PRN IV ANXIETY Last administered on 08/27/18 04:14; Admin Dose 1 MG; Start 08/27/18 at 04:30 Eye Lubricant (Artificial Tears Oph) 2 drop Q2H PRN BOTH EYES dry eyes; Start 08/28/18 at 01:30 Epoetin Jarrell-epbx (RETACRIT(esrd)) 10,000 unit MoWeFr@1700 SC Last administered on 09/07/18 17:28; Admin Dose 10,000 UNIT; Start 08/29/18 at 17:00 Morphine Sulfate (morphine) 3 mg Q1H PRN GTB PAIN NOT RELIEVED BY OTHERS Last administered on 09/09/18 09:45; Admin Dose 3 MG; Start 08/29/18 at 12:00 Lansoprazole (Prevacid) 30 mg DAILY@06 GTB Last administered on 09/10/18 05:35; Admin Dose 30 MG; Start 08/30/18 at 06:00 Carvedilol (Coreg) 25 mg TID PO Last administered on 09/10/18 12:53; Admin Dose 25 MG; Start 08/30/18 at 09:00 Oxycodone HCl (Roxicodone) 5 mg Q4H PRN PO MODERATE PAIN LEVEL 4-6 Last administered on 09/10/18 01:41; Admin Dose 5 MG; Start 09/01/18 at 10:00 Miscellaneous Information (* Miscellaneous Pharmacy Order) ASPIRIN ORDER WILL ... Q12 XX ; Start 09/05/18 at 10:00 Ipratropium [place] (Atrovent 0.02% (Neb)) 0.5 mg Q6HWA RESP THERAPY HHN Last administered on 09/10/18 14:42; Admin Dose 0.5 MG; Start 09/07/18 at 20:00 Albuterol (Proventil 0.083% (Neb)) 2.5 mg Q6H RESP THERAPY HHN Last administered on 09/10/18 14:43; Admin Dose 2.5 MG; Start 09/07/18 at 20:00 Multivit/Ca Carb/ B Cmplx/FA/Prenat (Shalonda-Jaylen) 1 tab DAILY GTB Last administered on 09/10/18 08:23; Admin Dose 1 TAB; Start 09/08/18 at 09:00 Heparin Sodium (Porcine) (Heparin (5000 Units/1ml)) 5,000 unit BID SC Last administered on 09/10/18 08:27; Admin Dose 5,000 UNIT; Start 09/08/18 at 21:00 Assessment/Plan Hospital Course (Demo Recall) 1. s/p V. fib cardiac arrest 2. Acute myocardial infarction 3. Status post emergent PCI of the 100% occluded LAD as well as PTCA of the diagonal and PCI LCX/ OM , sp PCI RCA 09/04 4. Diabetes 5. Respiratory failure status post intubation on the vent 6. Hypertension 7. Renal failure : acute on chronic 8. Likely history of congestive heart failure 9. Dyslipidemia 10. Encephalopathy: Clear anoxic brain injury on hypothermia protocol 11. Morbid obesity 12. Anemia 13. elevated LFT 14. fever, bacteremia pneumonia 15. Malnutrition, anasarca . 16. septic shock and staph aureus bacteremia 17. oropharyngeal bleeding 18. CVA Recommendations: Continue with aspirin/ plavix Antibiotic management as per ID recommendation HD as per renal Vent support respiratory care as per internal medicine and pulmonary consultants. s/p Trach now. weaning as tolerated. cont Coreg as tolerated/needed Transfusion prn given her severe anemia and MT/ VF tele monitoring DVT prophylaxis CODE STATUS full code Thank you for his referral. We will continue to follow along with you as needed over the weekend LOIS JOHNSON MD [facility] LOIS JOHNSON MD Sep 10, 2018 15:08
[2018-09-10] MEDS: EPOETIN ALFA-EPBX (ESRD) 10,000 UNIT/ML VIAL SC SCH (18:38)
[2018-09-10] MEDS: ATORVASTATIN 80 MG TAB PO SCH (21:53)
[2018-09-11] VITALS (10 sets, daily range): BP systolic 120–158; BP diastolic 71–85; PULSE 80–105; RESP 18–22
[2018-09-11] MEDS: ALBUTEROL 0.083% (NEB) 2.5 MG/3 ML AMP HHN SCH ×4 (02:18→19:35)
[2018-09-11] MEDS: LANSOPRAZOLE 30 MG CAP GTB SCH (05:26)
[2018-09-11] MEDS: IPRATROPIUM (NEB) 0.5 MG/2.5 ML AMP HHN SCH ×3 (08:00→19:36)
[2018-09-11] MEDS: ASPIRIN 81 MG TAB NGT SCH (08:50)
[2018-09-11] MEDS: RIFAXIMIN 200 MG TAB PO SCH ×3 (08:50→20:54)
[2018-09-11] MEDS: ASCORBIC ACID 500 MG TAB NGT SCH (08:50)
[2018-09-11] MEDS: LACTOBACILLUS RHAMNOSUS CAP GTB SCH ×3 (08:50→20:47)
[2018-09-11] MEDS: CLOPIDOGREL 75 MG TAB NGT SCH (08:51)
[2018-09-11] MEDS: MULTIVIT/CA CARB/B CMPLX/FA TAB GTB SCH (08:51)
[2018-09-11] MEDS: SEVELAMER CARBONATE 2.4 GM PKT GTB SCH ×3 (08:51→17:13)
[2018-09-11] MEDS: FOLIC ACID 1 MG TAB NGT SCH (08:51)
[2018-09-11] MEDS: ZINC SULFATE 220 MG CAP NGT SCH (08:51)
[2018-09-11] MEDS: HEPARIN 5,000 UNIT/1 ML VIAL SC SCH ×2 (08:58→21:16)
--- NOTE | 2018-09-11 09:53 | PN ---
DATE: 09/11/2018 SUBJECTIVE: The patient is noted to have an increase in urinary output. No other acute events noted . No hemoptysis, hematemesis, or hematochezia. OBJECTIVE: VITAL SIGNS: Blood pressure is 155/80, respirations 22, pulse 91, temperature 97.1. HEENT: Head is normocephalic. NECK: Supple. HEART: Regular rate. LUNGS: Show diminished breath sounds at the base. ABDOMEN: Soft, nontender to palpation without rebound or guarding. EXTREMITIES: Negative for clubbing, cyanosis. Trace edema. DERMATOLOGIC: No rashes. MUSCULOSKELETAL: No joint effusion. NEUROLOGIC: No change in exam. MEDICATIONS: Reviewed. LABORATORY DATA: From 09/11/2018 was reviewed. ASSESSMENT AND PLAN: 1. Nonoliguric acute kidney injury with previously normal baseline creatinine. Etiology of acute ki dney injury is secondary to acute tubular necrosis. The patient's renal function appears to be impro ving. Plan is to hold hemodialysis at this time to see if there are continued signs of renal recover y. We will continue to renally dose all medicines and avoid nephrotoxins. 2. Access. The patient has a Devan catheter. The patient may require Perm-A-Cath if the patient continues to need hemodialysis. We will continue to monitor. 4. Anemia. Continue to monitor hemoglobin and hematocrit levels. Continue Epogen as needed. 5. Mineral bone disorder, monitor calcium and phosphorus levels. 6. Ventilator-dependent respiratory failure. Vent settings and ABG was reviewed. Continue to monit or. 7. Coronary artery disease, status post percutaneous coronary intervention. Continue medical manage ment. 8. Acute cerebrovascular accident. Continue current treatment plan. 9. Dysphagia. Continue tube feeding. 10. Encephalopathy, improving. 11. Status post shock. 12. Status post cardiac arrest. Dictated By: BHUMI REDDY DO NR/NTS Conf#: [id number] DID#: [id number] CC: HARPAL PEDROZA MD; LAUREN GREWAL MD; DANIAL TUCKER MD;*EndCC*
--- NOTE | 2018-09-11 11:46 | CONS ---
Assessment/Plan Assessment/Plan Hospital Course (Demo Recall) No events over night Antimicrobials: none Microbiology: Urine culture on admission grew E. coli and Proteus, blood cultures growing oxacillin sensitive staph aureus endotracheal aspirate also growing oxacillin sensitive staph aureus ear drainage preliminary growing staph aureus, repeat blood cultures 2 days ago negative Indwelling: Trach, PEG, right femoral Devan, right upper extremity PICC line Physical examination: Obese well-developed middle-aged woman who is intubated in no distress. Head atraumatic normocephalic neck is supple chest rise symmetrical breath sounds diminished bases. Heart: S1-S2. Abdomen distended. Bowel sounds hypoactive. Extremities cyanotic Assessment: 1. S/p sepsis 2. Healthcare associated pneumonia==> treated 3. S/p Oxacillin sensitive staph aureus bacteremia 2 to #3 4. S/p polymicrobial UTI 5. STEMI, status post stent 6. Status post V. fib arrest 7. Acute renal failure, started on hemodialysis 8. 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 Anemia and thrombocytopenia 10. Acute sinusitis and bilateral mastoiditis==> treated 11. Morbid obesity Plan: Off abx Consultation Date/Type/Reason Admit Date/Time Aug 04, 2018 at 23:10 Initial Consult Date 08/12/18 Type of Consult id Requesting Provider: HARPAL AGGARWAL MD Date/Time of Note DATE: 09/11/18 TIME: 11:45 Exam/Review of Systems Exam Vitals Vital Signs Date Temp Pulse Resp B/P (MAP) Pulse Ox O2 O2 Flow FiO2 Time Delivery Rate 09/11/18 Vapotherm 09:14 09/11/18 97.8 91 22 155/80 08:16 (105) 09/11/18 99 5.0 28 08:03 Intake and Output 09/10/18 09/10/18 09/11/18 1515:00 23:00 07:00 IntakeIntake Total 160 ml 450 ml 640 ml OutputOutput Total 250 ml 250 ml BalanceBalance -90 ml 450 ml 390 ml Results Result Diagram: 09/11/18 0606 09/11/18 0606 Results 24hrs Laboratory Tests Test 09/11/18 06:06 White Blood Count 8.2 Red Blood Count 3.05 L Hemoglobin 9.0 L Hematocrit 29.5 L Mean Corpuscular Volume 96.7 Mean Corpuscular Hemoglobin 29.5 Mean Corpuscular Hemoglobin Concent 30.5 L Red Cell Distribution Width 17.8 H Platelet Count 168 Mean Platelet Volume 12.1 H Immature Granulocytes % 1.600 H Neutrophils % 58.8 Lymphocytes % 27.1 Monocytes % 8.9 Eosinophils % 2.9 Basophils % 0.7 Nucleated Red Blood Cells % 0.0 Immature Granulocytes # 0.130 H Neutrophils # 4.9 Lymphocytes # 2.2 Monocytes # 0.7 Eosinophils # 0.2 Basophils # 0.1 Nucleated Red Blood Cells # 0.0 Sodium Level 136 Potassium Level 4.0 Chloride Level 101 Carbon Dioxide Level 24 Anion Gap 11 Blood Urea Nitrogen 42 #H Creatinine 2.45 H Glucose Level 120 Calcium Level 10.5 H Phosphorus Level 5.4 H Magnesium Level 2.3 Albumin 3.3 Medications Medication Current Medications Atorvastatin Calcium (Lipitor) 80 mg DAILY@21 PO Last administered on 09/10/18 21:53; Admin Dose 80 MG; Start 08/05/18 at 21:00 Miscellaneous Information 1 ea NOTE XX ; Start 08/05/18 at 09:00 Acetaminophen (Tylenol Liquid) 650 mg Q4H PRN PO ELEVATED TEMPERATURE Last administered on 09/01/18 00:29; Admin Dose 650 MG; Start 08/05/18 at 11:00 Aspirin (Aspirin) 81 mg DAILY NGT Last administered on 09/11/18 08:50; Admin Dose 81 MG; Start 08/06/18 at 09:00 Zinc Sulfate (Zinc Sulfate) 220 mg DAILY NGT Last administered on 09/11/18 08:51; Admin Dose 220 MG; Start 08/09/18 at 09:00 Folic Acid (Folic Acid) 1 mg DAILY NGT Last administered on 09/11/18 08:51; Admin Dose 1 MG; Start 08/09/18 at 09:00 Ascorbic Acid (Vitamin C) 500 mg DAILY NGT Last administered on 09/11/18 08:50; Admin Dose 500 MG; Start 08/09/18 at 09:00 IV Flush (NS 10 ml) 10 ml PRN PRN IV IV PROTOCOL; Start 08/11/18 at 16:30 Heparin Sodium (Porcine) (Heparin (1000 Units/ml)) 3,000 unit PRN PRN CATHETER Dialysis Last administered on 09/09/18at 22:35; Admin Dose 3,000 UNIT; Start 08/12/18 at 14:30 Labetalol HCl (Labetalol) 10 mg Q4H PRN IV ELEVATED SYSTOLIC BP > 170 Last a dministered on 08/20/18at 16:54; Admin Dose 10 MG; Start 08/14/18 at 19:00 Hydralazine HCl (Apresoline) 20 mg Q2 PRN IV ELEVATED SYSTOLIC BP Last administered on 09/04/18 08:58; Admin Dose 20 MG; Start 08/16/18 at 08:00 Clopidogrel Bisulfate (plaVIX) 75 mg DAILY NGT Last administered on 09/11/18at 0 8:51; Admin Dose 75 MG; Start 08/18/18 at 13:30 Rifaximin (Xifaxan) 200 mg TID PO Last administered on 09/11/18 08:50; Admin Dose 200 MG; Start 08/19/18 at 13:00 Sevelamer Carbonate (Renvela) 2.4 gm WITH MEALS GTB Last administered on 09/11/18 08:51; Admin Dose 2.4 GM; Start 08/23/18 at 11:30 Ondansetron HCl (Zofran Inj) 4 mg Q4H PRN IV NAUSEA AND/OR VOMITING Last administered on 09/09/18 11:21; Admin Dose 4 MG; Start 08/23/18 at 14:30 Lactobacillus Acidophilus/ Rhamnosus (Culturelle) 1 cap TID GTB Last administered on 09/11/18 08:50; Admin Dose 1 CAP; Start 08/24/18 at 13:00 Albumin Human 100 ml @ 100 mls/hr WITH DIALYSIS PRN IV SBP <90 DURING DIALYSIS; Start 08/26/18 at 12:00 Sodium Chloride (NS) -To prime the dialy... DIRECTED FOR HD PRN IV HD; Start 08/26/18 at 12:00 Nitroglycerin (Nitroglycerin 2% Oint) 0.5 inch Q6 PRN TD CHEST PAIN; Start 08/27/18 at 00:30 Lorazepam (Ativan) 1 mg Q4H PRN IV ANXIETY Last administered on 08/27/18 04:14; Admin Dose 1 MG; Start 08/27/18 at 04:30 Eye Lubricant (Artificial Tears Oph) 2 drop Q2H PRN BOTH EYES dry eyes; Start 08/28/18 at 01:30 Epoetin Jarrell-epbx (RETACRIT(esrd)) 10,000 unit MoWeFr@1700 SC Last administered on 09/10/18 18:38; Admin Dose 10,000 UNIT; Start 08/29/18 at 17:00 Morphine Sulfate (morphine) 3 mg Q1H PRN GTB PAIN NOT RELIEVED BY OTHERS Last administered on 09/09/18 09:45; Admin Dose 3 MG; Start 08/29/18 at 12:00 Lansoprazole (Prevacid) 30 mg DAILY@06 GTB Last administered on 09/11/18 05:26; Admin Dose 30 MG; Start 08/30/18 at 06:00 Carvedilol (Coreg) 25 mg TID PO Last administered on 09/10/18 21:53; Admin Dose 25 MG; Start 08/30/18 at 09:00 Oxycodone HCl (Roxicodone) 5 mg Q4H PRN PO MODERATE PAIN LEVEL 4-6 Last administered on 09/10/18 01:41; Admin Dose 5 MG; Start 09/01/18 at 10:00 Miscellaneous Information (* Miscellaneous Pharmacy Order) ASPIRIN ORDER WILL ... Q12 XX ; Start 09/05/18 at 10:00 Ipratropium [place] (Atrovent 0.02% (Neb)) 0.5 mg Q6HWA RESP THERAPY HHN Last administered on 09/11/18 08:00; Admin Dose 0.5 MG; Start 09/07/18 at 20:00 Albuterol (Proventil 0.083% (Neb)) 2.5 mg Q6H RESP THERAPY HHN Last administered on 09/11/18 08:00; Admin Dose 2.5 MG; Start 09/07/18 at 20:00 Multivit/Ca Carb/ B Cmplx/FA/Prenat (Shalonda-Jaylen) 1 tab DAILY GTB Last administered on 09/11/18 08:51; Admin Dose 1 TAB; Start 09/08/18 at 09:00 Heparin Sodium (Porcine) (Heparin (5000 Units/1ml)) 5,000 unit BID SC Last administered on 09/11/18 08:58; Admin Dose 5,000 UNIT; Start 09/08/18 at 21:00 WIN LUCIANO NP Sep 11, 2018 11:46
--- NOTE | 2018-09-11 12:58 | PN ---
Date/Time of Note Date/Time of Note DATE: 09/11/18 TIME: 12:58 Objective Vitals Vital Signs Date Temp Pulse Resp B/P (MAP) Pulse Ox O2 O2 Flow FiO2 Time Delivery Rate 09/11/18 97 12:01 09/11/18 09:14 09/11/18 97.8 22 155/80 08:16 (105) 09/11/18 99 5.0 28 08:03 Intake and Output 09/10/18 09/10/18 09/11/18 1515:00 23:00 07:00 IntakeIntake Total 160 ml 450 ml 640 ml OutputOutput Total 250 ml 250 ml BalanceBalance -90 ml 450 ml 390 ml Results Result Diagram: 09/11/1860509/11/18 06 Medications Medications Current Medications Atorvastatin Calcium (Lipitor) 80 mg DAILY@21 PO Last administered on 09/10/18at 21:53; Admin Dose 80 MG; Start 08/05/18 at 21:00 Miscellaneous Information 1 ea NOTE XX ; Start 08/05/18 at 09:00 Acetaminophen (Tylenol Liquid) 650 mg Q4H PRN PO ELEVATED TEMPERATURE Last administered on 09/01/18at 00:29; Admin Dose 650 MG; Start 08/05/18 at 11:00 Aspirin (Aspirin) 81 mg DAILY NGT Last administered on 09/11/18 08:50; Admin Dose 81 MG; Start 08/06/18 at 09:00 Zinc Sulfate (Zinc Sulfate) 220 mg DAILY NGT Last administered on 09/11/18 08:51; Admin Dose 220 MG; Start 08/09/18 at 09:00 Folic Acid (Folic Acid) 1 mg DAILY NGT Last administered on 09/11/18at 08:51; Admin Dose 1 MG; Start 08/09/18 at 09:00 Ascorbic Acid (Vitamin C) 500 mg DAILY NGT Last administered on 09/11/18 08:50; Admin Dose 500 MG; Start 08/09/18 at 09:00 IV Flush (NS 10 ml) 10 ml PRN PRN IV IV PROTOCOL; Start 08/11/18 at 16:30 Heparin Sodium (Porcine) (Heparin (1000 Units/ml)) 3,000 unit PRN PRN CATHETER Dialysis Last administered on 09/09/18at 22:35; Admin Dose 3,000 UNIT; Start 08/12/18 at 14:30 Labetalol HCl (Labetalol) 10 mg Q4H PRN IV ELEVATED SYSTOLIC BP > 170 Last administered on 08/20/18at 16:54; Admin Dose 10 MG; Start 08/14/18 at 19:00 Hydralazine HCl (Apresoline) 20 mg Q2 PRN IV ELEVATED SYSTOLIC BP Last administered on 09/04/18at 08:58; Admin Dose 20 MG; Start 08/16/18 at 08:00 Clopidogrel Bisulfate (plaVIX) 75 mg DAILY NGT Last administered on 09/11/18 08:51; Admin Dose 75 MG; Start 08/18/18 at 13:30 Rifaximin (Xifaxan) 200 mg TID PO Last administered on 09/11/18 12:17; Admin Dose 200 MG; Start 08/19/18 at 13:00 Sevelamer Carbonate (Renvela) 2.4 gm WITH MEALS GTB Last administered on 09/11/18 12:17; Admin Dose 2.4 GM; Start 08/23/18 at 11:30 Ondansetron HCl (Zofran Inj) 4 mg Q4H PRN IV NAUSEA AND/OR VOMITING Last administered on 09/09/18 11:21; Admin Dose 4 MG; Start 08/23/18 at 14:30 Lactobacillus Acidophilus/ Rhamnosus (Culturelle) 1 cap TID GTB Last administered on 09/11/18 12:17; Admin Dose 1 CAP; Start 08/24/18 at 13:00 Albumin Human 100 ml @ 100 mls/hr WITH DIALYSIS PRN IV SBP <90 DURING DIALYSIS; Start 08/26/18 at 12:00 Sodium Chloride (NS) -To prime the dialy... DIRECTED FOR HD PRN IV HD; Start 08/26/18 at 12:00 Nitroglycerin (Nitroglycerin 2% Oint) 0.5 inch Q6 PRN TD CHEST PAIN; Start 08/27/18 at 00:30 Lorazepam (Ativan) 1 mg Q4H PRN IV ANXIETY Last administered on 08/27/18 04:14; Admin Dose 1 MG; Start 08/27/18 at 04:30 Eye Lubricant (Artificial Tears Oph) 2 drop Q2H PRN BOTH EYES dry eyes; Start 08/28/18 at 01:30 Epoetin Jarrell-epbx (RETACRIT(esrd)) 10,000 unit MoWeFr@1700 SC Last administered on 09/10/18 18:38; Admin Dose 10,000 UNIT; Start 08/29/18 at 17:00 Morphine Sulfate (morphine) 3 mg Q1H PRN GTB PAIN NOT RELIEVED BY OTHERS Last administered on 09/09/18 09:45; Admin Dose 3 MG; Start 08/29/18 at 12:00 Lansoprazole (Prevacid) 30 mg DAILY@06 GTB Last administered on 09/11/18 05:26; Admin Dose 30 MG; Start 08/30/18 at 06:00 Carvedilol (Coreg) 25 mg TID PO Last administered on 09/11/18 12:18; Admin Dose 25 MG; Start 08/30/18 at 09:00 Oxycodone HCl (Roxicodone) 5 mg Q4H PRN PO MODERATE PAIN LEVEL 4-6 Last administered on 09/10/18 01:41; Admin Dose 5 MG; Start 09/01/18 at 10:00 Miscellaneous Information (* Miscellaneous Pharmacy Order) ASPIRIN ORDER WILL ... Q12 XX ; Start 09/05/18 at 10:00 Ipratropium [place] (Atrovent 0.02% (Neb)) 0.5 mg Q6HWA RESP THERAPY HHN Last administered on 09/11/18 08:00; Admin Dose 0.5 MG; Start 09/07/18 at 20:00 Albuterol (Proventil 0.083% (Neb)) 2.5 mg Q6H RESP THERAPY HHN Last administered on 09/11/18 08:00; Admin Dose 2.5 MG; Start 09/07/18 at 20:00 Multivit/Ca Carb/ B Cmplx/FA/Prenat (Shalonda-Jaylen) 1 tab DAILY GTB Last administered on 09/11/18 08:51; Admin Dose 1 TAB; Start 09/08/18 at 09:00 Heparin Sodium (Porcine) (Heparin (5000 Units/1ml)) 5,000 unit BID SC Last administered on 09/11/18 08:58; Admin Dose 5,000 UNIT; Start 09/08/18 at 21:00 VTE Prophylaxis Risk score (from Nsg)>0 risk: 7 SCD applied (from Nsg): Yes Lines/Catheters IV Catheter Type: Aguilar in Place: No Assessment/Plan Hospital Course Subjective Patient in good spirits, no complaints of pain Objective Physical exam General: Patient is laying in bed and answers questions appropriately, has trach Mentation: Patient is alert and oriented 4, Head: Normocephalic atraumatic Eyes: EOMI, pupils reactive to light Neck: Supple, nontender, midline Respiratory: Clear to auscultation bilaterally Cardiovascular: regular rate, no obvious murmurs Gastrointestinal: non-tender to palpation, bowel sounds heard. Neurological: Moves all extremities spontaneously Skin: No new skin lesions Assessment/Plan 1. CAD s/p PCI x3- stable - will continue monitoring for any concerning cardiac sx - Cardiology on board and appreciate recommendations. Will need to continue aspirin for life and DAPT for 1 year - s/p emergent Cath 08/05 with successful PTCA and stenting of proximal and mid LAD, PTCA of the large first diagonal and thrombectomy of the LAD - Repeat PCI on 08/07 performed with stenting to LCx - Repeat PCI on 09/04 with stenting ostial/proximal right coronary artery 2. Acute hypoxic respiratory failure- improving - Remains stable off vent. Per pulm with downsize trach once secretions minimize - Speech consulted for trials of PMV and advancing diet. - Pulm on board and appreciate recommendations. 3. Acute toxic/metabolic encephalopathy- resolved - Patient back to baseline and doing well. - Neurology input appreciated and will reconsult if needed 4. Bilateral CVA - PT/OT on board - Found on MRI, likely thromboembolic secondary to cardiopulmonary arrest per neurology - Continue on aspirin/Plavix and Lipitor 5. Anemia, blood loss and renal disease- stable - Hgb remains stable, transfuse as needed 6. Bilateral Pneumonia- resolved - ID on board and appreciate recommendations. Monitor off antibiotics 7. Septic shock secondary to PNA and bacteremia- resolved - Blood cultures and sputum culture results noted. - ID on board 8. Renal failure on HD - Nephrology on board and appreciate recommendations. Continue HD. Plans for permacath placement prior to discharge - secondary to septic shock, ATN vs prerenal vs contrast induced nephropathy 9. Diabetes - A1c noted - ISS not needed 10. S/p V-fib cardiac arrest secondary to STEMI - Completed hypothermia protocol 11. Disposition - Will continue current treatment and monitor for decrease in secretions prior to downsizing trach and capping trial. CM on board for SNF placement HARPAL PEDROZA Sep 11, 2018 12:58
[2018-09-11] MEDS: oxyCODONE 5 MG TAB PO PRN (13:09)
--- NOTE | 2018-09-11 15:36 | CONS ---
Consult Date/Type/Reason Admit Date/Time Aug 04, 2018 at 23:10 Initial Consult Date 08/05/18 Type of Consult Pulmonary Requesting Provider: HARPAL AGGARWAL MD Date/Time of Note DATE: 09/11/18 TIME: 15:34 Subjective Patient stable no new events. Plan on downsizing tracheostomy today. Objective Vital Signs Date Temp Pulse Resp B/P (MAP) Pulse Ox O2 O2 Flow FiO2 Time Delivery Rate 09/11/18 5.0 28 14:49 09/11/18 92 18 Aerosol 14:49 09/11/18 97.8 158/84 12:00 (108) 09/11/18 99 08:03 Intake and Output 09/10/18 09/10/18 09/11/18 1515:00 23:00 07:00 IntakeIntake Total 160 ml 450 ml 640 ml OutputOutput Total 250 ml 250 ml BalanceBalance -90 ml 450 ml 390 ml Exam GENERAL: Pleasant young lady on cool aerosol. VITAL SIGNS: per chart NECK: Supple. No JVD or lymphadenopathy. CARDIAC EXAM: S1, S2. No added sounds or murmurs. CHEST: clear bilaterally, No added sounds, rales or wheezes ABDOMEN: Soft, nontender. No guarding or rebound. EXTREMITIES: No cyanosis, clubbing or edema. NEUROLOGIC: Generalized weakness. No focal deficits. Vent Setting Ventilator Support Mode: SIMV Fraction of Inspired Oxygen pe: 28 Positive End Expiratory Pressu: 5.0 Results/Medications Result Diagram: 09/11/18 0606 09/11/18 0606 Results 24 hrs Laboratory Tests Test 09/11/18 06:06 White Blood Count 8.2 Red Blood Count 3.05 L Hemoglobin 9.0 L Hematocrit 29.5 L Mean Corpuscular Volume 96.7 Mean Corpuscular Hemoglobin 29.5 Mean Corpuscular Hemoglobin Concent 30.5 L Red Cell Distribution Width 17.8 H Platelet Count 168 Mean Platelet Volume 12.1 H Immature Granulocytes % 1.600 H Neutrophils % 58.8 Lymphocytes % 27.1 Monocytes % 8.9 Eosinophils % 2.9 Basophils % 0.7 Nucleated Red Blood Cells % 0.0 Immature Granulocytes # 0.130 H Neutrophils # 4.9 Lymphocytes # 2.2 Monocytes # 0.7 Eosinophils # 0.2 Basophils # 0.1 Nucleated Red Blood Cells # 0.0 Sodium Level 136 Potassium Level 4.0 Chloride Level 101 Carbon Dioxide Level 24 Anion Gap 11 Blood Urea Nitrogen 42 #H Creatinine 2.45 H Glucose Level 120 Calcium Level 10.5 H Phosphorus Level 5.4 H Magnesium Level 2.3 Albumin 3.3 Medications Current Medications Atorvastatin Calcium (Lipitor) 80 mg DAILY@21 PO Last administered on 09/10/18 21:53; Admin Dose 80 MG; Start 08/05/18 at 21:00 Miscellaneous Information 1 ea NOTE XX ; Start 08/05/18 at 09:00 Acetaminophen (Tylenol Liquid) 650 mg Q4H PRN PO ELEVATED TEMPERATURE Last administered on 09/01/18 00:29; Admin Dose 650 MG; Start 08/05/18 at 11:00 Aspirin (Aspirin) 81 mg DAILY NGT Last administered on 09/11/18 08:50; Admin Dose 81 MG; Start 08/06/18 at 09:00 Zinc Sulfate (Zinc Sulfate) 220 mg DAILY NGT Last administered on 09/11/18 08:51; Admin Dose 220 MG; Start 08/09/18 at 09:00 Folic Acid (Folic Acid) 1 mg DAILY NGT Last administered on 09/11/18 08:51; Admin Dose 1 MG; Start 08/09/18 at 09:00 Ascorbic Acid (Vitamin C) 500 mg DAILY NGT Last administered on 09/11/18 08:50; Admin Dose 500 MG; Start 08/09/18 at 09:00 IV Flush (NS 10 ml) 10 ml PRN PRN IV IV PROTOCOL; Start 08/11/18 at 16:30 Heparin Sodium (Porcine) (Heparin (1000 Units/ml)) 3,000 unit PRN PRN CATHETER Dialysis Last administered on 09/09/18 22:35; Admin Dose 3,000 UNIT; Start 08/12/18 at 14:30 Labetalol HCl (Labetalol) 10 mg Q4H PRN IV ELEVATED SYSTOLIC BP > 170 Last administered on 08/20/18 16:54; Admin Dose 10 MG; Start 08/14/18 at 19:00 Hydralazine HCl (Apresoline) 20 mg Q2 PRN IV ELEVATED SYSTOLIC BP Last administered on 09/04/18 08:58; Admin Dose 20 MG; Start 08/16/18 at 08:00 Clopidogrel Bisulfate (plaVIX) 75 mg DAILY NGT Last administered on 09/11/18 08:51; Admin Dose 75 MG; Start 08/18/18 at 13:30 Rifaximin (Xifaxan) 200 mg TID PO Last administered on 09/11/18 12:17; Admin Dose 200 MG; Start 08/19/18 at 13:00 Sevelamer Carbonate (Renvela) 2.4 gm WITH MEALS GTB Last administered on 09/11/18 12:17; Admin Dose 2.4 GM; Start 08/23/18 at 11:30 Ondansetron HCl (Zofran Inj) 4 mg Q4H PRN IV NAUSEA AND/OR VOMITING Last administered on 09/09/18 11:21; Admin Dose 4 MG; Start 08/23/18 at 14:30 Lactobacillus Acidophilus/ Rhamnosus (Culturelle) 1 cap TID GTB Last administered on 09/11/18 12:17; Admin Dose 1 CAP; Start 08/24/18 at 13:00 Albumin Human 100 ml @ 100 mls/hr WITH DIALYSIS PRN IV SBP <90 DURING DIALYSIS; Start 08/26/18 at 12:00 Sodium Chloride (NS) -To prime the dialy... DIRECTED FOR HD PRN IV HD; Start 08/26/18 at 12:00 Nitroglycerin (Nitroglycerin 2% Oint) 0.5 inch Q6 PRN TD CHEST PAIN; Start 08/27/18 at 00:30 Lorazepam (Ativan) 1 mg Q4H PRN IV ANXIETY Last administered on 08/27/18 04:14; Admin Dose 1 MG; Start 08/27/18 at 04:30 Eye Lubricant (Artificial Tears Oph) 2 drop Q2H PRN BOTH EYES dry eyes; Start 08/28/18 at 01:30 Epoetin Jarrell-epbx (RETACRIT(esrd)) 10,000 unit MoWeFr@1700 SC Last administered on 09/10/18 18:38; Admin Dose 10,000 UNIT; Start 08/29/18 at 17:00 Morphine Sulfate (morphine) 3 mg Q1H PRN GTB PAIN NOT RELIEVED BY OTHERS Last administered on 09/09/18 09:45; Admin Dose 3 MG; Start 08/29/18 at 12:00 Lansoprazole (Prevacid) 30 mg DAILY@06 GTB Last administered on 09/11/18 05:26; Admin Dose 30 MG; Start 08/30/18 at 06:00 Carvedilol (Coreg) 25 mg TID PO Last administered on 09/11/18 12:18; Admin Dose 25 MG; Start 08/30/18 at 09:00 Oxycodone HCl (Roxicodone) 5 mg Q4H PRN PO MODERATE PAIN LEVEL 4-6 Last administered on 09/11/18 13:09; Admin Dose 5 MG; Start 09/01/18 at 10:00 Miscellaneous Information (* Miscellaneous Pharmacy Order) ASPIRIN ORDER WILL ... Q12 XX ; Start 09/05/18 at 10:00 Ipratropium [place] (Atrovent 0.02% (Neb)) 0.5 mg Q6HWA RESP THERAPY HHN Last administered on 09/11/18 14:49; Admin Dose 0.5 MG; Start 09/07/18 at 20:00 Albuterol (Proventil 0.083% (Neb)) 2.5 mg Q6H RESP THERAPY HHN Last administered on 09/11/18 14:49; Admin Dose 2.5 MG; Start 09/07/18 at 20:00 Multivit/Ca Carb/ B Cmplx/FA/Prenat (Shalonda-Jaylen) 1 tab DAILY GTB Last administered on 09/11/18 08:51; Admin Dose 1 TAB; Start 09/08/18 at 09:00 Heparin Sodium (Porcine) (Heparin (5000 Units/1ml)) 5,000 unit BID SC Last administered on 09/11/18 08:58; Admin Dose 5,000 UNIT; Start 09/08/18 at 21:00 Assessment/Plan Hospital Course (Demo Recall) IMP: 1. Ventricular Fibrillation Arrest--s/p ROSC 2/2 STEMI s/p PCI status post hypothermia protocol. Multivessel coronary artery disease status post stent placement x3 2. STEMI, Status post stent x3 placement. 3. CVA multiple infarcts noted. 4. Hypoxemic respiratory failure no status post tracheostomy placement 5. HUSEYIN--likely ATN continues hemodialysis 6. Ischemic hepatopathy--2/2 arrest 7. Resolving encephalopathy RECS: 1. Status post tracheostomy today and PMV trials. 2. Trach site care. 3. Encourage out of bed. 4. PEG tube feeding 5. Hemodialysis as tolerated Discussed with speech therapy. CHINO ANDERSON MD, [facility] Sep 11, 2018 15:36
--- NOTE | 2018-09-11 15:53 | CONS ---
Consult Date/Type/Reason Admit Date/Time Aug 04, 2018 at 23:10 Initial Consult Date 08/05/18 Type of Consultation: cv Requesting Provider: HARPAL AGGARWAL MD Date/Time of Note DATE: 09/11/18 TIME: 15:52 Subjective Interventional cardiology follow-up progress note Subjective: Events noted discussed with the staff and tele was reviewed. no V tachycardia o r V fibrillation. BP is stable she denies any cp to me now pt had no more issues with trach last night NO Groin pain or bleeding events noted s/p PCI 100% occluded LAD 08/04 S/P PCI LCX/ OM s/p trach 08/22/18 PCI RCA 09/04/18 Objective: General: Obese female no acute distress s/p trach on O2 HEENT: NC/AT. pupils are equal. round. NECK: . no stridor. s/p trach on oxygen CV: RRR. systolic murmur; no gallop or rubs. PULM: no wheezing mild rhonchi. GI: Obese SOFT, NT, ND, no rebound or guarding s/pPEG Extremity: +B/L LE edema. no clubbing. neuro: awake and follows commands Psych: Calm now rectal: deferred vascular L femoral no bleeding or hematoma EKG August 06, 2018 was personally within normal sinus rhythm. T wave inversions anterior and inferior leads ECG 08/07: NSR ST T abn c/w ant/lat ischemia CXR 08/14: Nonspecific patchy bilateral pulmonary opacity, mildly improved on the right. No pneumothorax. Endotracheal tube, nasogastric tube, and right-sided PICC line rem ain in place. Stable mild cardiomegaly. The osseous structures are remarkable for degenerative enthesopathy of the spine. Chest x-ray done August 06 shows:No evidence for active cardiopulmonary disease. CXR 08/19: Diffuse bilateral reticular nodular infiltrates unchanged. Question bronchopneumonia versus failure. CXR 08/28/18: Allowing for support structures overlying the right base, no significant change. Left mid and bibasilar air space opacities/infiltrates are again present. Lines and tubes are stable ECHO personally reviewed Normal left ventricular cavity size. Normal left ventricular wall thickness. Ejection fraction is visually estimated at 55-65 %. Normal appearance of the mitral valve. Mitral valve is not well visualized. No mitral valve regurgitation is seen. Aortic valve not well visualized. No aortic regurgitation. Normal appearance of the tricuspid valve. Unable to obtain RVSP due to minimal presence of tricuspid regurgitation. No evidence of tricuspid regurgitation. Normal pericardium with no significant pericardial effusion. suboptimal study. Objective Vitals Vital Signs Date Temp Pulse Resp B/P (MAP) Pulse Ox O2 O2 Flow FiO2 Time Delivery Rate 09/11/18 5.0 28 14:49 09/11/18 92 18 Aerosol 14:49 09/11/18 97.8 158/84 12:00 (108) 09/11/18 99 08:03 Intake and Output 09/10/18 09/10/18 09/11/18 1515:00 23:00 07:00 IntakeIntake Total 160 ml 450 ml 640 ml OutputOutput Total 250 ml 250 ml BalanceBalance -90 ml 450 ml 390 ml Results/Medications Result Diagram: 09/11/18 0606 09/11/18 0606 Results 24 hrs Laboratory Tests Test 09/11/18 06:06 White Blood Count 8.2 Red Blood Count 3.05 L Hemoglobin 9.0 L Hematocrit 29.5 L Mean Corpuscular Volume 96.7 Mean Corpuscular Hemoglobin 29.5 Mean Corpuscular Hemoglobin Concent 30.5 L Red Cell Distribution Width 17.8 H Platelet Count 168 Mean Platelet Volume 12.1 H Immature Granulocytes % 1.600 H Neutrophils % 58.8 Lymphocytes % 27.1 Monocytes % 8.9 Eosinophils % 2.9 Basophils % 0.7 Nucleated Red Blood Cells % 0.0 Immature Granulocytes # 0.130 H Neutrophils # 4.9 Lymphocytes # 2.2 Monocytes # 0.7 Eosinophils # 0.2 Basophils # 0.1 Nucleated Red Blood Cells # 0.0 Sodium Level 136 Potassium Level 4.0 Chloride Level 101 Carbon Dioxide Level 24 Anion Gap 11 Blood Urea Nitrogen 42 #H Creatinine 2.45 H Glucose Level 120 Calcium Level 10.5 H Phosphorus Level 5.4 H Magnesium Level 2.3 Albumin 3.3 Medications Current Medications Atorvastatin Calcium (Lipitor) 80 mg DAILY@21 PO Last administered on 09/10/18at 21:53; Admin Dose 80 MG; Start 08/05/18 at 21:00 Miscellaneous Information 1 ea NOTE XX ; Start 08/05/18 at 09:00 Acetaminophen (Tylenol Liquid) 650 mg Q4H PRN PO ELEVATED TEMPERATURE Last administered on 09/01/18 00:29; Admin Dose 650 MG; Start 08/05/18 at 11:00 Aspirin (Aspirin) 81 mg DAILY NGT Last administered on 09/11/18 08:50; Admin Dose 81 MG; Start 08/06/18 at 09:00 Zinc Sulfate (Zinc Sulfate) 220 mg DAILY NGT Last administered on 09/11/18 08:51; Admin Dose 220 MG; Start 08/09/18 at 09:00 Folic Acid (Folic Acid) 1 mg DAILY NGT Last administered on 09/11/18 08:51; Admin Dose 1 MG; Start 08/09/18 at 09:00 Ascorbic Acid (Vitamin C) 500 mg DAILY NGT Last administered on 09/11/18 08:50; Admin Dose 500 MG; Start 08/09/18 at 09:00 IV Flush (NS 10 ml) 10 ml PRN PRN IV IV PROTOCOL; Start 08/11/18 at 16:30 Heparin Sodium (Porcine) (Heparin (1000 Units/ml)) 3,000 unit PRN PRN CATHETER Dialysis Last administered on 09/09/18 22:35; Admin Dose 3,000 UNIT; Start 08/12/18 at 14:30 Labetalol HCl (Labetalol) 10 mg Q4H PRN IV ELEVATED SYSTOLIC BP > 170 Last administered on 08/20/18 16:54; Admin Dose 10 MG; Start 08/14/18 at 19:00 Hydralazine HCl (Apresoline) 20 mg Q2 PRN IV ELEVATED SYSTOLIC BP Last administered on 09/04/18 08:58; Admin Dose 20 MG; Start 08/16/18 at 08:00 Clopidogrel Bisulfate (plaVIX) 75 mg DAILY NGT Last administered on 09/11/18 08:51; Admin Dose 75 MG; Start 08/18/18 at 13:30 Rifaximin (Xifaxan) 200 mg TID PO Last administered on 09/11/18 12:17; Admin Dose 200 MG; Start 08/19/18 at 13:00 Sevelamer Carbonate (Renvela) 2.4 gm WITH MEALS GTB Last administered on 09/11/18 12:17; Admin Dose 2.4 GM; Start 08/23/18 at 11:30 Ondansetron HCl (Zofran Inj) 4 mg Q4H PRN IV NAUSEA AND/OR VOMITING Last administered on 09/09/18 11:21; Admin Dose 4 MG; Start 08/23/18 at 14:30 Lactobacillus Acidophilus/ Rhamnosus (Culturelle) 1 cap TID GTB Last administered on 09/11/18 12:17; Admin Dose 1 CAP; Start 08/24/18 at 13:00 Albumin Human 100 ml @ 100 mls/hr WITH DIALYSIS PRN IV SBP <90 DURING DIAL YSIS; Start 08/26/18 at 12:00 Sodium Chloride (NS) -To prime the dialy... DIRECTED FOR HD PRN IV HD; Start 08/26/18 at 12:00 Nitroglycerin (Nitroglycerin 2% Oint) 0.5 inch Q6 PRN TD CHEST PAIN; Start 08/27/18 at 00:30 Lorazepam (Ativan) 1 mg Q4H PRN IV ANXIETY Last administered on 08/27/18at 04:14; Admin Dose 1 MG; Start 08/27/18 at 04:30 Eye Lubricant (Artificial Tears Oph) 2 drop Q2H PRN BOTH EYES dry eyes; Start 08/28/18 at 01:30 Epoetin Jarrell-epbx (RETACRIT(esrd)) 10,000 unit MoWeFr@1700 SC Last administered on 09/10/18 18:38; Admin Dose 10,000 UNIT; Start 08/29/18 at 17:00 Morphine Sulfate (morphine) 3 mg Q1H PRN GTB PAIN NOT RELIEVED BY OTHERS Last administered on 09/09/18 09:45; Admin Dose 3 MG; Start 08/29/18 at 12:00 Lansoprazole (Prevacid) 30 mg DAILY@06 GTB Last administered on 09/11/18 05:26; Admin Dose 30 MG; Start 08/30/18 at 06:00 Carvedilol (Coreg) 25 mg TID PO Last administered on 09/11/18 12:18; Admin Dose 25 MG; Start 08/30/18 at 09:00 Oxycodone HCl (Roxicodone) 5 mg Q4H PRN PO MODERATE PAIN LEVEL 4-6 Last administered on 09/11/18 13:09; Admin Dose 5 MG; Start 09/01/18 at 10:00 Miscellaneous Information (* Miscellaneous Pharmacy Order) ASPIRIN ORDER WILL ... Q12 XX ; Start 09/05/18 at 10:00 Ipratropium [place] (Atrovent 0.02% (Neb)) 0.5 mg Q6HWA RESP THERAPY HHN Last administered on 09/11/18 14:49; Admin Dose 0.5 MG; Start 09/07/18 at 20:00 Albuterol (Proventil 0.083% (Neb)) 2.5 mg Q6H RESP THERAPY HHN Last administered on 09/11/18 14:49; Admin Dose 2.5 MG; Start 09/07/18 at 20:00 Multivit/Ca Carb/ B Cmplx/FA/Prenat (Shalonda-Jaylen) 1 tab DAILY GTB Last administered on 09/11/18 08:51; Admin Dose 1 TAB; Start 09/08/18 at 09:00 Heparin Sodium (Porcine) (Heparin (5000 Units/1ml)) 5,000 unit BID SC Last administered on 09/11/18 08:58; Admin Dose 5,000 UNIT; Start 09/08/18 at 21:00 Assessment/Plan Hospital Course (Demo Recall) 1. s/p V. fib cardiac arrest 2. Acute myocardial infarction 3. Status post emergent PCI of the 100% occluded LAD as well as PTCA of the diagonal and PCI LCX/ OM , sp PCI RCA 09/04 4. Diabetes 5. Respiratory failure status post intubation on the vent 6. Hypertension 7. Renal failure : acute on chronic 8. Likely history of congestive heart failure 9. Dyslipidemia 10. Encephalopathy: Clear anoxic brain injury on hypothermia protocol 11. Morbid obesity 12. Anemia 13. elevated LFT 14. fever, bacteremia pneumonia 15. Malnutrition, anasarca . 16. septic shock and staph aureus bacteremia 17. oropharyngeal bleeding 18. CVA Recommendations: Continue with aspirin/ plavix Antibiotic management as per ID recommendation HD as per renal rec. cont weaning as tolerated. cont Coreg as tolerated/needed Transfusion prn given her severe anemia and TN/ VF tele monitoring DVT prophylaxis CODE STATUS full code Thank you for his referral. We will continue to follow along with you LOIS JOHNSON MD [facility] LOIS JOHNSON MD Sep 11, 2018 15:53
[2018-09-11] MEDS: ATORVASTATIN 80 MG TAB PO SCH (20:48)
[2018-09-12] VITALS (11 sets, daily range): BP systolic 135–164; BP diastolic 62–92; PULSE 74–98; RESP 20
[2018-09-12] MEDS: ALBUTEROL 0.083% (NEB) 2.5 MG/3 ML AMP HHN SCH ×4 (02:02→19:47)
[2018-09-12] MEDS: LANSOPRAZOLE 30 MG CAP GTB SCH (05:52)
--- NOTE | 2018-09-12 07:59 | CONS ---
Consult Date/Type/Reason Admit Date/Time Aug 04, 2018 at 23:10 Initial Consult Date 08/05/18 Type of Consultation: cv Requesting Provider: HARPAL AGGARWAL MD Date/Time of Note DATE: 09/12/18 TIME: 07:58 Subjective Interventional cardiology follow-up progress note Subjective: Events noted discussed with the staff and tele was reviewed. no V tachycardia o r V fibrillation. BP is stable she denies any cp to me now pt had no more issues with trach last night NO Groin pain or bleeding events noted s/p PCI 100% occluded LAD 08/04 S/P PCI LCX/ OM s/p trach 08/22/18 PCI RCA 09/04/18 Objective: General: Obese female no acute distress s/p trach on O2 HEENT: NC/AT. pupils are equal. round. NECK: . no stridor. s/p trach on oxygen CV: RRR. systolic murmur; no gallop or rubs. PULM: no wheezing mild rhonchi. GI: Obese SOFT, NT, ND, no rebound or guarding s/pPEG Extremity: +B/L LE edema. no clubbing. neuro: awake and follows commands Psych: Calm now rectal: deferred vascular L femoral no bleeding or hematoma EKG August 06, 2018 was personally within normal sinus rhythm. T wave inversions anterior and inferior leads ECG 08/07: NSR ST T abn c/w ant/lat ischemia CXR 08/14: Nonspecific patchy bilateral pulmonary opacity, mildly improved on the right. No pneumothorax. Endotracheal tube, nasogastric tube, and right-sided PICC line rem ain in place. Stable mild cardiomegaly. The osseous structures are remarkable for degenerative enthesopathy of the spine. Chest x-ray done August 06 shows:No evidence for active cardiopulmonary disease. CXR 08/19: Diffuse bilateral reticular nodular infiltrates unchanged. Question bronchopneumonia versus failure. CXR 08/28/18: Allowing for support structures overlying the right base, no significant change. Left mid and bibasilar air space opacities/infiltrates are again present. Lines and tubes are stable ECHO personally reviewed Normal left ventricular cavity size. Normal left ventricular wall thickness. Ejection fraction is visually estimated at 55-65 %. Normal appearance of the mitral valve. Mitral valve is not well visualized. No mitral valve regurgitation is seen. Aortic valve not well visualized. No aortic regurgitation. Normal appearance of the tricuspid valve. Unable to obtain RVSP due to minimal presence of tricuspid regurgitation. No evidence of tricuspid regurgitation. Normal pericardium with no significant pericardial effusion. suboptimal study. Objective Vitals Vital Signs Date Temp Pulse Resp B/P (MAP) Pulse Ox O2 O2 Flow FiO2 Time Delivery Rate 09/12/18 98.6 88 20 150/89 97 Trach 07:43 (109) Collar 09/12/18 5.0 28 05:26 Intake and Output 09/11/18 09/11/18 09/12/18 1515:00 23:00 07:00 IntakeIntake Total 500 ml 560 ml BalanceBalance 500 ml 560 ml Results/Medications Result Diagram: 09/11/1860509/11/18 06 Medications Current Medications Atorvastatin Calcium (Lipitor) 80 mg DAILY@21 PO Last administered on 09/11/18at 20:48; Admin Dose 80 MG; Start 08/05/18 at 21:00 Miscellaneous Information 1 ea NOTE XX ; Start 08/05/18 at 09:00 Acetaminophen (Tylenol Liquid) 650 mg Q4H PRN PO ELEVATED TEMPERATURE Last administered on 09/01/18at 00:29; Admin Dose 650 MG; Start 08/05/18 at 11:00 Aspirin (Aspirin) 81 mg DAILY NGT Last administered on 09/11/18 08:50; Admin Dose 81 MG; Start 08/06/18 at 09:00 Zinc Sulfate (Zinc Sulfate) 220 mg DAILY NGT Last administered on 09/11/18 08 :51; Admin Dose 220 MG; Start 08/09/18 at 09:00 Folic Acid (Folic Acid) 1 mg DAILY NGT Last administered on 09/11/18 08:51; Admin Dose 1 MG; Start 08/09/18 at 09:00 Ascorbic Acid (Vitamin C) 500 mg DAILY NGT Last administered on 09/11/18 08:50; Admin Dose 500 MG; Start 08/09/18 at 09:00 IV Flush (NS 10 ml) 10 ml PRN PRN IV IV PROTOCOL; Start 08/11/18 at 16:30 Heparin Sodium (Porcine) (Heparin (1000 Units/ml)) 3,000 unit PRN PRN CATHETER Dialysis Last administered on 09/09/18at 22:35; Admin Dose 3,000 UNIT; Start 08/12/18 at 14:30 Labetalol HCl (Labetalol) 10 mg Q4H PRN IV ELEVATED SYSTOLIC BP > 170 Last administered on 08/20/18 16:54; Admin Dose 10 MG; Start 08/14/18 at 19:00 Hydralazine HCl (Apresoline) 20 mg Q2 PRN IV ELEVATED SYSTOLIC BP Last administered on 09/04/18 08:58; Admin Dose 20 MG; Start 08/16/18 at 08:00 Clopidogrel Bisulfate (plaVIX) 75 mg DAILY NGT Last administered on 09/11/18 08:51; Admin Dose 75 MG; Start 08/18/18 at 13:30 Rifaximin (Xifaxan) 200 mg TID PO Last administered on 09/11/18 20:54; Admin Dose 200 MG; Start 08/19/18 at 13:00 Sevelamer Carbonate (Renvela) 2.4 gm WITH MEALS GTB Last administered on 09/11/18 17:13; Admin Dose 2.4 GM; Start 08/23/18 at 11:30 Ondansetron HCl (Zofran Inj) 4 mg Q4H PRN IV NAUSEA AND/OR VOMITING Last administered on 09/09/18 11:21; Admin Dose 4 MG; Start 08/23/18 at 14:30 Lactobacillus Acidophilus/ Rhamnosus (Culturelle) 1 cap TID GTB Last administered on 09/11/18at 20:47; Admin Dose 1 CAP; Start 08/24/18 at 13:00 Albumin Human 100 ml @ 100 mls/hr WITH DIALYSIS PRN IV SBP <90 DURING DIALYSIS; Start 08/26/18 at 12:00 Sodium Chloride (NS) -To prime the dialy... DIRECTED FOR HD PRN IV HD; Start 08/26/18 at 12:00 Nitroglycerin (Nitroglycerin 2% Oint) 0.5 inch Q6 PRN TD CHEST PAIN; Start 08/27/18 at 00:30 Lorazepam (Ativan) 1 mg Q4H PRN IV ANXIETY Last administered on 08/27/18 04:14; Admin Dose 1 MG; Start 08/27/18 at 04:30 Eye Lubricant (Artificial Tears Oph) 2 drop Q2H PRN BOTH EYES dry eyes; Start 08/28/18 at 01:30 Epoetin Jarrell-epbx (RETACRIT(esrd)) 10,000 unit MoWeFr@1700 SC Last administered on 09/10/18 18:38; Admin Dose 10,000 UNIT; Start 08/29/18 at 17:00 Morphine Sulfate (morphine) 3 mg Q1H PRN GTB PAIN NOT RELIEVED BY OTHERS Last administered on 09/09/18 09:45; Admin Dose 3 MG; Start 08/29/18 at 12:00 Lansoprazole (Prevacid) 30 mg DAILY@06 GTB Last administered on 09/12/18 05:5 2; Admin Dose 30 MG; Start 08/30/18 at 06:00 Carvedilol (Coreg) 25 mg TID PO Last administered on 09/11/18 20:48; Admin Dose 25 MG; Start 08/30/18 at 09:00 Oxycodone HCl (Roxicodone) 5 mg Q4H PRN PO MODERATE PAIN LEVEL 4-6 Last administered on 09/11/18 13:09; Admin Dose 5 MG; Start 09/01/18 at 10:00 Miscellaneous Information (* Miscellaneous Pharmacy Order) ASPIRIN ORDER WILL ... Q12 XX ; Start 09/05/18 at 10:00 Ipratropium [place] (Atrovent 0.02% (Neb)) 0.5 mg Q6HWA RESP THERAPY HHN Last administered on 09/11/18 19:36; Admin Dose 0.5 MG; Start 09/07/18 at 20:00 Albuterol (Proventil 0.083% (Neb)) 2.5 mg Q6H RESP THERAPY HHN Last administered on 09/12/18 02:02; Admin Dose 2.5 MG; Start 09/07/18 at 20:00 Multivit/Ca Carb/ B Cmplx/FA/Prenat (Shalonda-Jaylen) 1 tab DAILY GTB Last ad ministered on 09/11/18 08:51; Admin Dose 1 TAB; Start 09/08/18 at 09:00 Heparin Sodium (Porcine) (Heparin (5000 Units/1ml)) 5,000 unit BID SC Last administered on 09/11/18 21:16; Admin Dose 5,000 UNIT; Start 09/08/18 at 21:00 Assessment/Plan Hospital Course (Demo Recall) 1. s/p V. fib cardiac arrest 2. Acute myocardial infarction 3. Status post emergent PCI of the 100% occluded LAD as well as PTCA of the diagonal and PCI LCX/ OM , sp PCI RCA 09/04 4. Diabetes 5. Respiratory failure status post intubation on the vent 6. Hypertension 7. Renal failure : acute on chronic 8. Likely history of congestive heart failure 9. Dyslipidemia 10. Encephalopathy: Clear anoxic brain injury on hypothermia protocol 11. Morbid obesity 12. Anemia 13. elevated LFT 14. fever, bacteremia pneumonia 15. Malnutrition, anasarca . 16. septic shock and staph aureus bacteremia 17. oropharyngeal bleeding 18. CVA Recommendations: Continue with aspirin/ plavix Antibiotic management as per ID recommendation HD as per renal rec. cont weaning as tolerated. cont Coreg as tolerated/needed Transfusion prn given her severe anemia and NM/ VF tele monitoring DVT prophylaxis Thank you for his referral. We will continue to follow along with you LOIS JOHNSON MD [facility] LOIS JOHNSON MD Sep 12, 2018 07:59
[2018-09-12] MEDS: IPRATROPIUM (NEB) 0.5 MG/2.5 ML AMP HHN SCH ×3 (08:28→19:47)
[2018-09-12] MEDS: SEVELAMER CARBONATE 2.4 GM PKT GTB SCH ×3 (08:50→18:02)
[2018-09-12] MEDS: ZINC SULFATE 220 MG CAP NGT SCH (08:51)
[2018-09-12] MEDS: RIFAXIMIN 200 MG TAB PO SCH ×3 (08:51→20:54)
[2018-09-12] MEDS: MULTIVIT/CA CARB/B CMPLX/FA TAB GTB SCH (08:51)
[2018-09-12] MEDS: LACTOBACILLUS RHAMNOSUS CAP GTB SCH ×3 (08:51→20:54)
[2018-09-12] MEDS: HEPARIN 5,000 UNIT/1 ML VIAL SC SCH ×2 (08:52→21:09)
[2018-09-12] MEDS: FOLIC ACID 1 MG TAB NGT SCH (08:53)
[2018-09-12] MEDS: ASCORBIC ACID 500 MG TAB NGT SCH (08:53)
[2018-09-12] MEDS: ASPIRIN 81 MG TAB NGT SCH (08:53)
[2018-09-12] MEDS: CLOPIDOGREL 75 MG TAB NGT SCH (08:54)
--- NOTE | 2018-09-12 09:29 | PN ---
DATE: 09/12/2018 SUBJECTIVE: The patient is stable, on trach mask. No other acute events noted. No hemoptysis, rolf temesis or hematochezia. OBJECTIVE: VITAL SIGNS: Blood pressure is 150/89, respirations 20, pulse 88, temperature 98.6. HEENT: Head is normocephalic. NECK: Supple. HEART: Regular rate. LUNGS: Show diminished breath sounds at the base. ABDOMEN: Soft, nontender to palpation without rebound or guarding. EXTREMITIES: Negative for clubbing, cyanosis. Trace edema. DERMATOLOGIC: No rashes. MUSCULOSKELETAL: No joint effusion. NEUROLOGIC: No change in exam. MEDICATIONS: The patient's medications have been reviewed. LABORATORY DATA: Currently pending. ASSESSMENT AND PLAN: 1. Nonoliguric acute kidney injury with previously normal baseline creatinine. Etiology of acute ki dney injury is secondary to acute tubular necrosis. The patient's renal function appears to be impro ving. Hemodialysis has been held. Last dialysis was 3 days ago. We will monitor for any signs of r enal recovery. Continue to renally dose all medicines and avoid nephrotoxins. 2. Access. The patient currently has a Devan catheter. If the patient requires long-term dialysi s we will convert to a Perm-A-Cath. We will continue to monitor. 3. Anemia. Continue to monitor hemoglobin and hematocrit levels. We will give Epogen as needed. 4. Mineral bone disorder, monitor calcium and phosphorus levels. 5. Ventilatory dependent respiratory failure. Vent settings and ABG was reviewed. Continue to ash tor. 6. Coronary artery disease, status post percutaneous coronary intervention. Continue medical manage ment. 7. Acute cerebrovascular accident. Continue current treatment plan. 8. Dysphagia. Continue tube feeding. 9. Encephalopathy, improving. 10. Status post shock. 11. Status post cardiac arrest. Dictated By: BHUMI REDDY DO NR/NTS Conf#: [id number] DID#: [id number] CC: LAUREN GREWAL MD; DANIAL TUCKER MD; HARPAL PEDROZA MD;*EndCC*
--- NOTE | 2018-09-12 10:37 | CONS ---
Assessment/Plan Assessment/Plan Assessment/Plan (Daily) Assessment and recommendations; 1. Patient status post cardiac arrest with V. fib, status post coronary intervention. 2. Status post tracheostomy, maintained on T-piece with excellent overall clini ellyn status. 3. Marked improvement in encephalopathy. 4. Status post treatment for bilateral pneumonia. 5. Renal failure, hemodialysis dependent. Continue current supportive care. Order speech evaluation for swallow evaluation as well as tracheostomy capping trials as tolerated. Consultation Date/Type/Reason Admit Date/Time Aug 04, 2018 at 23:10 Initial Consult Date 08/17/18 Type of Consult Pulmonary/critical care Requesting Provider: HARPAL AGGARWAL MD Date/Time of Note DATE: 09/12/18 TIME: 10:35 24 HR Interval Summary Free Text/Dictation Patient condition is stable. Doing very well on T-piece via tracheostomy. Patient has remained hemodynamically stable. General exam; young woman, awake alert, currently in no distress. Exam/Review of Systems Exam Vitals Vital Signs Date Temp Pulse Resp B/P (MAP) Pulse Ox O2 O2 Flow FiO2 Time Delivery Rate 09/12/18 95 08:49 09/12/18 96 5.0 28 08:33 09/12/18 20 Aerosol 08:32 T Tube 09/12/18 98.6 150/89 07:43 (109) Intake and Output 09/11/18 09/11/18 09/12/18 1414:59 22:59 06:59 IntakeIntake Total 500 ml 560 ml BalanceBalance 500 ml 560 ml Exam H EENT exam; supple neck, no JVD. No lymphadenopathy. Midline trachea. No thyromegaly. Patient has good dentition. Tracheostomy in place. Chest exam; diminished but clear breath sounds. S1-S2 audible, no murmurs. Regular rhythm. Abdomen exam; soft, no organomegaly. G-tube in place. Bowel sounds audible. Extremity exam; no peripheral edema clubbing. 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 Results Result Diagram: 09/12/18 0735 09/12/18 0735 Results 24hrs Laboratory Tests Test 09/12/18 07:35 White Blood Count 9.2 Red Blood Count 3.20 L Hemoglobin 9.3 L Hematocrit 30.7 L Mean Corpuscular Volume 95.9 Mean Corpuscular Hemoglobin 29.1 Mean Corpuscular Hemoglobin Concent 30.3 L Red Cell Distribution Width 17.2 H Platelet Count 178 Mean Platelet Volume 12.5 H Immature Granulocytes % 1.300 H Neutrophils % 56.7 Lymphocytes % 30.1 Monocytes % 8.0 Eosinophils % 3.0 Basophils % 0.9 Nucleated Red Blood Cells % 0.0 Immature Granulocytes # 0.120 H Neutrophils # 5.2 Lymphocytes # 2.8 Monocytes # 0.7 Eosinophils # 0.3 Basophils # 0.1 Nucleated Red Blood Cells # 0.0 Sodium Level 136 Potassium Level 4.1 Chloride Level 99 Carbon Dioxide Level 28 Anion Gap 9 Blood Urea Nitrogen 51 H Creatinine 2.35 H Est Glomerular Filtrat Rate mL/min 23 L Glucose Level 104 Calcium Level 10.3 H Phosphorus Level 5.8 H Magnesium Level 2.2 Medications Medication Current Medications Atorvastatin Calcium (Lipitor) 80 mg DAILY@21 PO Last administered on 09/11/18at 20:48; Admin Dose 80 MG; Start 08/05/18 at 21:00 Miscellaneous Information 1 ea NOTE XX ; Start 08/05/18 at 09:00 Acetaminophen (Tylenol Liquid) 650 mg Q4H PRN PO ELEVATED TEMPERATURE Last administered on 09/01/18 00:29; Admin Dose 650 MG; Start 08/05/18 at 11:00 Aspirin (Aspirin) 81 mg DAILY NGT Last administered on 09/12/18 08:53; Admin Dose 81 MG; Start 08/06/18 at 09:00 Zinc Sulfate (Zinc Sulfate) 220 mg DAILY NGT Last administered on 09/12/18 08:51; Admin Dose 220 MG; Start 08/09/18 at 09:00 Folic Acid (Folic Acid) 1 mg DAILY NGT Last administered on 09/12/18 08:53; Admin Dose 1 MG; Start 08/09/18 at 09:00 Ascorbic Acid (Vitamin C) 500 mg DAILY NGT Last administered on 09/12/18 08:53; Admin Dose 500 MG; Start 08/09/18 at 09:00 IV Flush (NS 10 ml) 10 ml PRN PRN IV IV PROTOCOL; Start 08/11/18 at 16:30 Heparin Sodium (Porcine) (Heparin (1000 Units/ml)) 3,000 unit PRN PRN CATHETER Dialysis Last administered on 09/09/18at 22:35; Admin Dose 3,000 UNIT; Start 08/12/18 at 14:30 Labetalol HCl (Labetalol) 10 mg Q4H PRN IV ELEVATED SYSTOLIC BP > 170 Last administered on 08/20/18 16:54; Admin Dose 10 MG; Start 08/14/18 at 19:00 Hydralazine HCl (Apresoline) 20 mg Q2 PRN IV ELEVATED SYSTOLIC BP Last administered on 09/04/18 08:58; Admin Dose 20 MG; Start 08/16/18 at 08:00 Clopidogrel Bisulfate (plaVIX) 75 mg DAILY NGT Last administered on 09/12/18 08:54; Admin Dose 75 MG; Start 08/18/18 at 13:30 Rifaximin (Xifaxan) 200 mg TID PO Last administered on 09/12/18 08:51; Admin Dose 200 MG; Start 08/19/18 at 13:00 Sevelamer Carbonate (Renvela) 2.4 gm WITH MEALS GTB Last administered on 09/12/18 08:50; Admin Dose 2.4 GM; Start 08/23/18 at 11:30 Ondansetron HCl (Zofran Inj) 4 mg Q4H PRN IV NAUSEA AND/OR VOMITING Last administered on 09/09/18 11:21; Admin Dose 4 MG; Start 08/23/18 at 14:30 Lactobacillus Acidophilus/ Rhamnosus (Culturelle) 1 cap TID GTB Last admini stered on 09/12/18 08:51; Admin Dose 1 CAP; Start 08/24/18 at 13:00 Albumin Human 100 ml @ 100 mls/hr WITH DIALYSIS PRN IV SBP <90 DURING DIALYSIS; Start 08/26/18 at 12:00 Sodium Chloride (NS) -To prime the dialy... DIRECTED FOR HD PRN IV HD; Start 08/26/18 at 12:00 Nitroglycerin (Nitroglycerin 2% Oint) 0.5 inch Q6 PRN TD CHEST PAIN; Start 08/27/18 at 00:30 Lorazepam (Ativan) 1 mg Q4H PRN IV ANXIETY Last administered on 08/27/18 04:14; Admin Dose 1 MG; Start 08/27/18 at 04:30 Eye Lubricant (Artificial Tears Oph) 2 drop Q2H PRN BOTH EYES dry eyes; Start 08/28/18 at 01:30 Epoetin Jarrell-epbx (RETACRIT(esrd)) 10,000 unit MoWeFr@1700 SC Last administered on 09/10/18 18:38; Admin Dose 10,000 UNIT; Start 08/29/18 at 17:00 Morphine Sulfate (morphine) 3 mg Q1H PRN GTB PAIN NOT RELIEVED BY OTHERS Last administered on 09/09/18 09:45; Admin Dose 3 MG; Start 08/29/18 at 12:00 Lansoprazole (Prevacid) 30 mg DAILY@06 GTB Last administered on 09/12/18 05:52; Admin Dose 30 MG; Start 08/30/18 at 06:00 Carvedilol (Coreg) 25 mg TID PO Last administered on 09/12/18 08:54; Admin Dose 25 MG; Start 08/30/18 at 09:00 Oxycodone HCl (Roxicodone) 5 mg Q4H PRN PO MODERATE PAIN LEVEL 4-6 Last administered on 09/11/18 13:09; Admin Dose 5 MG; Start 09/01/18 at 10:00 Miscellaneous Information (* Miscellaneous Pharmacy Order) ASPIRIN ORDER WILL ... Q12 XX ; Start 09/05/18 at 10:00 Ipratropium [place] (Atrovent 0.02% (Neb)) 0.5 mg Q6HWA RESP THERAPY HHN Last administered on 09/12/18 08:28; Admin Dose 0.5 MG; Start 09/07/18 at 20:00 Albuterol (Proventil 0.083% (Neb)) 2.5 mg Q6H RESP THERAPY HHN Last administered on 09/12/18 08:27; Admin Dose 2.5 MG; Start 09/07/18 at 20:00 Multivit/Ca Carb/ B Cmplx/FA/Prenat (Shalonda-Jaylen) 1 tab DAILY GTB Last administered on 09/12/18 08:51; Admin Dose 1 TAB; Start 09/08/18 at 09:00 Heparin Sodium (Porcine) (Heparin (5000 Units/1ml)) 5,000 unit BID SC Last administered on 09/12/18 08:52; Admin Dose 5,000 UNIT; Start 09/08/18 at 21:00 MARIAA KINSEY Sep 12, 2018 10:37
--- NOTE | 2018-09-12 15:40 | CONS ---
Assessment/Plan Assessment/Plan Hospital Course (Demo Recall) Alert, fells good, nad Antimicrobials: none Microbiology: Urine culture on admission grew E. coli and Proteus, blood cultures growing oxacillin sensitive staph aureus endotracheal aspirate also growing oxacillin sensitive staph aureus ear drainage preliminary growing staph aureus, repeat blood cultures 2 days ago negative Indwelling: Trach, PEG, right femoral Devan, right upper extremity PICC line Physical examination: Obese well-developed middle-aged woman who is intubated in no distress. Head atraumatic normocephalic neck is supple chest rise symmetrical breath sounds diminished bases. Heart: S1-S2. Abdomen distended. Bowel sounds hypoactive. Extremities cyanotic Assessment: 1. S/p sepsis 2. Healthcare associated pneumonia==> treated 3. S/p Oxacillin sensitive staph aureus bacteremia 2 to #3 4. S/p polymicrobial UTI 5. STEMI, status post stent 6. Status post V. fib arrest 7. Acute renal failure, started on hemodialysis 8. 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 Anemia and thrombocytopenia 10. Acute sinusitis and bilateral mastoiditis==> treated 11. Morbid obesity Plan: Off abx continues to improve Consultation Date/Type/Reason Admit Date/Time Aug 04, 2018 at 23:10 Initial Consult Date 08/12/18 Type of Consult id Requesting Provider: HARPAL AGGARWAL MD Date/Time of Note DATE: 09/12/18 TIME: 15:39 Exam/Review of Systems Exam Vitals Vital Signs Date Temp Pulse Resp B/P (MAP) Pulse Ox O2 O2 Flow FiO2 Time Delivery Rate 09/12/18 100 5.0 28 13:51 09/12/18 90 20 Aerosol 13:49 T Tube 09/12/18 98.2 157/92 10:54 (113) Intake and Output 09/11/18 09/11/18 09/12/18 1515:00 23:00 07:00 IntakeIntake Total 500 ml 560 ml BalanceBalance 500 ml 560 ml Results Result Diagram: 09/12/18 0735 09/12/18 0735 Results 24hrs Laboratory Tests Test 09/12/18 07:35 White Blood Count 9.2 Red Blood Count 3.20 L Hemoglobin 9.3 L Hematocrit 30.7 L Mean Corpuscular Volume 95.9 Mean Corpuscular Hemoglobin 29.1 Mean Corpuscular Hemoglobin Concent 30.3 L Red Cell Distribution Width 17.2 H Platelet Count 178 Mean Platelet Volume 12.5 H Immature Granulocytes % 1.300 H Neutrophils % 56.7 Lymphocytes % 30.1 Monocytes % 8.0 Eosinophils % 3.0 Basophils % 0.9 Nucleated Red Blood Cells % 0.0 Immature Granulocytes # 0.120 H Neutrophils # 5.2 Lymphocytes # 2.8 Monocytes # 0.7 Eosinophils # 0.3 Basophils # 0.1 Nucleated Red Blood Cells # 0.0 Sodium Level 136 Potassium Level 4.1 Chloride Level 99 Carbon Dioxide Level 28 Anion Gap 9 Blood Urea Nitrogen 51 H Creatinine 2.35 H Est Glomerular Filtrat Rate mL/min 23 L Glucose Level 104 Calcium Level 10.3 H Phosphorus Level 5.8 H Magnesium Level 2.2 Medications Medication Current Medications Atorvastatin Calcium (Lipitor) 80 mg DAILY@21 PO Last administered on 09/11/18 20:48; Admin Dose 80 MG; Start 08/05/18 at 21:00 Miscellaneous Information 1 ea NOTE XX ; Start 08/05/18 at 09:00 Acetaminophen (Tylenol Liquid) 650 mg Q4H PRN PO ELEVATED TEMPERATURE Last administered on 09/01/18 00:29; Admin Dose 650 MG; Start 08/05/18 at 11:00 Aspirin (Aspirin) 81 mg DAILY NGT Last administered on 09/12/18 08:53; Admin Dose 81 MG; Start 08/06/18 at 09:00 Zinc Sulfate (Zinc Sulfate) 220 mg DAILY NGT Last administered on 09/12/18 08:51; Admin Dose 220 MG; Start 08/09/18 at 09:00 Folic Acid (Folic Acid) 1 mg DAILY NGT Last administered on 09/12/18 08:53; Admin Dose 1 MG; Start 08/09/18 at 09:00 Ascorbic Acid (Vitamin C) 500 mg DAILY NGT Last administered on 09/12/18 08:53; Admin Dose 500 MG; Start 08/09/18 at 09:00 IV Flush (NS 10 ml) 10 ml PRN PRN IV IV PROTOCOL; Start 08/11/18 at 16:30 Heparin Sodium (Porcine) (Heparin (1000 Units/ml)) 3,000 unit PRN PRN CATHETER Dialysis Last administered on 09/09/18at 22:35; Admin Dose 3,000 UNIT; Start 08/12/18 at 14:30 Labetalol HCl (Labetalol) 10 mg Q4H PRN IV ELEVATED SYSTOLIC BP > 170 Last administered on 08/20/18 16:54; Admin Dose 10 MG; Start 08/14/18 at 19:00 Hydralazine HCl (Apresoline) 20 mg Q2 PRN IV ELEVATED SYSTOLIC BP Last administered on 09/04/18 08:58; Admin Dose 20 MG; Start 08/16/18 at 08:00 Clopidogrel Bisulfate (plaVIX) 75 mg DAILY NGT Last administered on 09/12/18 08:54; Admin Dose 75 MG; Start 08/18/18 at 13:30 Rifaximin (Xifaxan) 200 mg TID PO Last administered on 09/12/18 13:30; Admin Dose 200 MG; Start 08/19/18 at 13:00 Sevelamer Carbonate (Renvela) 2.4 gm WITH MEALS GTB Last administered on 09/12/18 13:30; Admin Dose 2.4 GM; Start 08/23/18 at 11:30 Ondansetron HCl (Zofran Inj) 4 mg Q4H PRN IV NAUSEA AND/OR VOMITING Last administered on 09/09/18 11:21; Admin Dose 4 MG; Start 08/23/18 at 14:30 Lactobacillus Acidophilus/ Rhamnosus (Culturelle) 1 cap TID GTB Last administered on 09/12/18 13:29; Admin Dose 1 CAP; Start 08/24/18 at 13:00 Albumin Human 100 ml @ 100 mls/hr WITH DIALYSIS PRN IV SBP <90 DURING DIALYSIS; Start 08/26/18 at 12:00 Sodium Chloride (NS) -To prime the dialy... DIRECTED FOR HD PRN IV HD; Start 08/26/18 at 12:00 Nitroglycerin (Nitroglycerin 2% Oint) 0.5 inch Q6 PRN TD CHEST PAIN; Start 08/27/18 at 00:30 Lorazepam (Ativan) 1 mg Q4H PRN IV ANXIETY Last administered on 08/27/18 04:14; Admin Dose 1 MG; Start 08/27/18 at 04:30 Eye Lubricant (Artificial Tears Oph) 2 drop Q2H PRN BOTH EYES dry eyes; Start 08/28/18 at 01:30 Epoetin Jarrell-epbx (RETACRIT(esrd)) 10,000 unit MoWeFr@1700 SC Last administered on 09/10/18 18:38; Admin Dose 10,000 UNIT; Start 08/29/18 at 17:00 Morphine Sulfate (morphine) 3 mg Q1H PRN GTB PAIN NOT RELIEVED BY OTHERS Last administered on 09/09/18 09:45; Admin Dose 3 MG; Start 08/29/18 at 12:00 Lansoprazole (Prevacid) 30 mg DAILY@06 GTB Last administered on 09/12/18 05 :52; Admin Dose 30 MG; Start 08/30/18 at 06:00 Carvedilol (Coreg) 25 mg TID PO Last administered on 09/12/18 13:29; Admin Dose 25 MG; Start 08/30/18 at 09:00 Oxycodone HCl (Roxicodone) 5 mg Q4H PRN PO MODERATE PAIN LEVEL 4-6 Last administered on 09/11/18 13:09; Admin Dose 5 MG; Start 09/01/18 at 10:00 Miscellaneous Information (* Miscellaneous Pharmacy Order) ASPIRIN ORDER WILL ... Q12 XX ; Start 09/05/18 at 10:00 Ipratropium [place] (Atrovent 0.02% (Neb)) 0.5 mg Q6HWA RESP THERAPY HHN Last administered on 09/12/18 13:42; Admin Dose 0.5 MG; Start 09/07/18 at 20:00 Albuterol (Proventil 0.083% (Neb)) 2.5 mg Q6H RESP THERAPY HHN Last administered on 09/12/18 13:42; Admin Dose 2.5 MG; Start 09/07/18 at 20:00 Multivit/Ca Carb/ B Cmplx/FA/Prenat (Shalonda-Jaylen) 1 tab DAILY GTB Last administered on 09/12/18 08:51; Admin Dose 1 TAB; Start 09/08/18 at 09:00 Heparin Sodium (Porcine) (Heparin (5000 Units/1ml)) 5,000 unit BID SC Last administered on 09/12/18 08:52; Admin Dose 5,000 UNIT; Start 4/20/19 at 21:00 WIN LUCIANO NP Sep 12, 2018 15:40
--- NOTE | 2018-09-12 16:04 | PN ---
Date/Time of Note Date/Time of Note DATE: 09/12/18 TIME: 16:04 Objective Vitals Vital Signs Date Temp Pulse Resp B/P (MAP) Pulse Ox O2 O2 Flow FiO2 Time Delivery Rate 09/12/18 98.6 96 20 159/86 99 Trach 15:59 (110) Collar 09/12/18 5.0 28 13:51 Intake and Output 09/11/18 09/11/18 09/12/18 1515:00 23:00 07:00 IntakeIntake Total 500 ml 560 ml BalanceBalance 500 ml 560 ml Results Result Diagram: 09/12/1835 09/12/1835 Medications Medications Current Medications Atorvastatin Calcium (Lipitor) 80 mg DAILY@21 PO Last administered on 09/11/18at 20:48; Admin Dose 80 MG; Start 08/05/18 at 21:00 Miscellaneous Information 1 ea NOTE XX ; Start 08/05/18 at 09:00 Acetaminophen (Tylenol Liquid) 650 mg Q4H PRN PO ELEVATED TEMPERATURE Last administered on 09/01/18at 00:29; Admin Dose 650 MG; Start 08/05/18 at 11:00 Aspirin (Aspirin) 81 mg DAILY NGT Last administered on 09/12/18 08:53; Admin Dose 81 MG; Start 08/06/18 at 09:00 Zinc Sulfate (Zinc Sulfate) 220 mg DAILY NGT Last administered on 09/12/18 08:51; Admin Dose 220 MG; Start 08/09/18 at 09:00 Folic Acid (Folic Acid) 1 mg DAILY NGT Last administered on 09/12/18 08:53; Admin Dose 1 MG; Start 08/09/18 at 09:00 Ascorbic Acid (Vitamin C) 500 mg DAILY NGT Last administered on 09/12/18 08:53; Admin Dose 500 MG; Start 08/09/18 at 09:00 IV Flush (NS 10 ml) 10 ml PRN PRN IV IV PROTOCOL; Start 08/11/18 at 16:30 Heparin Sodium (Porcine) (Heparin (1000 Units/ml)) 3,000 unit PRN PRN CATHETER Dialysis Last administered on 09/09/18at 22:35; Admin Dose 3,000 UNIT; Start 08/12/18 at 14:30 Labetalol HCl (Labetalol) 10 mg Q4H PRN IV ELEVATED SYSTOLIC BP > 170 Last administered on 08/20/18 16:54; Admin Dose 10 MG; Start 08/14/18 at 19:00 Hydralazine HCl (Apresoline) 20 mg Q2 PRN IV ELEVATED SYSTOLIC BP Last administered on 09/04/18 08:58; Admin Dose 20 MG; Start 08/16/18 at 08:00 Clopidogrel Bisulfate (plaVIX) 75 mg DAILY NGT Last administered on 09/12/18 08:54; Admin Dose 75 MG; Start 08/18/18 at 13:30 Rifaximin (Xifaxan) 200 mg TID PO Last administered on 09/12/18 13:30; Admin Dose 200 MG; Start 08/19/18 at 13:00 Sevelamer Carbonate (Renvela) 2.4 gm WITH MEALS GTB Last administered on 09/12/18 13:30; Admin Dose 2.4 GM; Start 08/23/18 at 11:30 Ondansetron HCl (Zofran Inj) 4 mg Q4H PRN IV NAUSEA AND/OR VOMITING Last administered on 09/09/18 11:21; Admin Dose 4 MG; Start 08/23/18 at 14:30 Lactobacillus Acidophilus/ Rhamnosus (Culturelle) 1 cap TID GTB Last administered on 09/12/18 13:29; Admin Dose 1 CAP; Start 08/24/18 at 13:00 Albumin Human 100 ml @ 100 mls/hr WITH DIALYSIS PRN IV SBP <90 DURING DIALYSIS; Start 08/26/18 at 12:00 Sodium Chloride (NS) -To prime the dialy... DIRECTED FOR HD PRN IV HD; Start 08/26/18 at 12:00 Nitroglycerin (Nitroglycerin 2% Oint) 0.5 inch Q6 PRN TD CHEST PAIN; Start 08/27/18 at 00:30 Lorazepam (Ativan) 1 mg Q4H PRN IV ANXIETY Last administered on 08/27/18 04:14; Admin Dose 1 MG; Start 08/27/18 at 04:30 Eye Lubricant (Artificial Tears Oph) 2 drop Q2H PRN BOTH EYES dry eyes; Start 08/28/18 at 01:30 Epoetin Jarrell-epbx (RETACRIT(esrd)) 10,000 unit MoWeFr@1700 SC Last administered on 09/10/18 18:38; Admin Dose 10,000 UNIT; Start 08/29/18 at 17:00 Morphine Sulfate (morphine) 3 mg Q1H PRN GTB PAIN NOT RELIEVED BY OTHERS Last administered on 09/09/18 09:45; Admin Dose 3 MG; Start 08/29/18 at 12:00 Lansoprazole (Prevacid) 30 mg DAILY@06 GTB Last administered on 09/12/18 05:52; Admin Dose 30 MG; Start 08/30/18 at 06:00 Carvedilol (Coreg) 25 mg TID PO Last administered on 09/12/18 13:29; Admin Dose 25 MG; Start 08/30/18 at 09:00 Oxycodone HCl (Roxicodone) 5 mg Q4H PRN PO MODERATE PAIN LEVEL 4-6 Last administered on 09/11/18 13:09; Admin Dose 5 MG; Start 09/01/18 at 10:00 Miscellaneous Information (* Miscellaneous Pharmacy Order) ASPIRIN ORDER WILL ... Q12 XX ; Start 09/05/18 at 10:00 Ipratropium [place] (Atrovent 0.02% (Neb)) 0.5 mg Q6HWA RESP THERAPY HHN Last administered on 09/12/18 13:42; Admin Dose 0.5 MG; Start 09/07/18 at 20:00 Albuterol (Proventil 0.083% (Neb)) 2.5 mg Q6H RESP THERAPY HHN Last administered on 09/12/18 13:42; Admin Dose 2.5 MG; Start 09/07/18 at 20:00 Multivit/Ca Carb/ B Cmplx/FA/Prenat (Shalonda-Jaylen) 1 tab DAILY GTB Last administered on 09/12/18 08:51; Admin Dose 1 TAB; Start 09/08/18 at 09:00 Heparin Sodium (Porcine) (Heparin (5000 Units/1ml)) 5,000 unit BID SC Last administered on 09/12/18 08:52; Admin Dose 5,000 UNIT; Start 09/08/18 at 21:00 VTE Prophylaxis Risk score (from Nsg)>0 risk: 7 SCD applied (from Nsg): Yes Lines/Catheters IV Catheter Type: Aguilar in Place: No Assessment/Plan Hospital Course Subjective Patient in good spirits, no complaints of pain Objective Physical exam General: Patient is laying in bed and answers questions appropriately, has trach Mentation: Patient is alert and oriented 4, Head: Normocephalic atraumatic Eyes: EOMI, pupils reactive to light Neck: Supple, nontender, midline Respiratory: Clear to auscultation bilaterally Cardiovascular: regular rate, no obvious murmurs Gastrointestinal: non-tender to palpation, bowel sounds heard. Neurological: Moves all extremities spontaneously Skin: No new skin lesions Assessment/Plan 1. CAD s/p PCI x3- stable - will continue monitoring for any concerning cardiac sx - Cardiology on board and appreciate recommendations. Will need to continue aspirin for life and DAPT for 1 year - s/p emergent Cath 08/05 with successful PTCA and stenting of proximal and mid LAD, PTCA of the large first diagonal and thrombectomy of the LAD - Repeat PCI on 08/07 performed with stenting to LCx - Repeat PCI on 09/04 with stenting ostial/proximal right coronary artery 2. Acute hypoxic respiratory failure- improving - Remains stable off vent. Per pulm with downsize trach once secretions minimize - Speech consulted for trials of PMV and advancing diet. - Pulm on board and appreciate recommendations. 3. Acute toxic/metabolic encephalopathy- resolved - Patient back to baseline and doing well. - Neurology input appreciated and will reconsult if needed 4. Bilateral CVA - PT/OT on board - Found on MRI, likely thromboembolic secondary to cardiopulmonary arrest per neurology - Continue on aspirin/Plavix and Lipitor 5. Anemia, blood loss and renal disease- stable - Hgb remains stable, transfuse as needed 6. Bilateral Pneumonia- resolved - ID on board and appreciate recommendations. Monitor off antibiotics 7. Septic shock secondary to PNA and bacteremia- resolved - Blood cultures and sputum culture results noted. - ID on board 8. Renal failure on HD - Nephrology on board and appreciate recommendations. Currently hemodialysis has been held for the past 3 days, possibility that the Devan cath removed and patient taken off dialysis completely. - secondary to septic shock, ATN vs prerenal vs contrast induced nephropathy 9. Diabetes - A1c noted - ISS not needed 10. S/p V-fib cardiac arrest secondary to STEMI - Completed hypothermia protocol 11. Disposition - Will continue current treatment and monitor for decrease in secretions prior to downsizing trach and capping trial. CM on board for SNF placement HARPAL PEDROZA Sep 12, 2018 16:04
[2018-09-12] MEDS ORDERED: hydrALAzine 20 MG INJ IV PRN (16:30)
[2018-09-12] MEDS: EPOETIN ALFA-EPBX (ESRD) 10,000 UNIT/ML VIAL SC SCH (18:05)
[2018-09-12] MEDS: ATORVASTATIN 80 MG TAB PO SCH (20:54)
[2018-09-12] MEDS: oxyCODONE 5 MG TAB PO PRN (23:19)
[2018-09-13] VITALS (11 sets, daily range): BP systolic 133–166; BP diastolic 75–92; PULSE 78–96; RESP 17–20
[2018-09-13] MEDS: ALBUTEROL 0.083% (NEB) 2.5 MG/3 ML AMP HHN SCH ×4 (01:08→20:07)
[2018-09-13] MEDS: LANSOPRAZOLE 30 MG CAP GTB SCH (05:51)
[2018-09-13] MEDS: IPRATROPIUM (NEB) 0.5 MG/2.5 ML AMP HHN SCH ×3 (07:34→20:07)
--- NOTE | 2018-09-13 07:52 | CONS ---
Consult Date/Type/Reason Admit Date/Time Aug 04, 2018 at 23:10 Initial Consult Date 08/05/18 Type of Consultation: cv Requesting Provider: HARPAL AGGARWAL MD Date/Time of Note DATE: 09/13/18 TIME: 07:52 Subjective Interventional cardiology follow-up progress note Subjective: Events noted discussed with the staff and tele was reviewed. no V tachycardia or V fibrillation. BP is stable she denies any cp to me now denies sob to me now events noted s/p PCI 100% occluded LAD 08/04 S/P PCI LCX/ OM s/p trach 08/22/18 PCI RCA 09/04/18 Objective: General: Obese female no acute distress s/p trach on O2 HEENT: NC/AT. pupils are equal. round. NECK: . no stridor. s/p trach on oxygen CV: RRR. systolic murmur; no gallop or rubs. PULM: no wheezing mild rhonchi. GI: Obese SOFT, NT, ND, no rebound or guarding s/pPEG Extremity: +B/L LE edema. no clubbing. neuro: awake and follows commands Psych: Calm now rectal: deferred vascular L femoral no bleeding or hematoma EKG August 06, 2018 was personally within normal sinus rhythm. T wave inversions anterior and inferior leads ECG 08/07: NSR ST T abn c/w ant/lat ischemia CXR 08/14: Nonspecific patchy bilateral pulmonary opacity, mildly improved on the right. No pneumothorax. Endotracheal tube, nasogastric tube, and right-sided PICC line remain in place. Stable mild cardiomegaly. The osseous structures are remarkable for degenerative enthesopathy of the spine. Chest x-ray done August 06 shows:No evidence for active cardiopulmonary disease. CXR 08/19: Diffuse bilateral reticular nodular infiltrates unchanged. Question bronchopneumonia versus failure. CXR 08/28/18: Allowing for support structures overlying the right base, no significant change. Left mid and bibasilar air space opacities/infiltrates are again present. Lines and tubes are stable ECHO personally reviewed Normal left ventricular cavity size. Normal left ventricular wall thickness. Ejection fraction is visually estimated at 55-65 %. Normal appearance of the mitral valve. Mitral valve is not well visualized. No mitral valve regurgitation is seen. Aortic valve not well visualized. No aortic regurgitation. Normal appearance of the tricuspid valve. Unable to obtain RVSP due to minimal presence of tricuspid regurgitation. No evidence of tricuspid regurgitation. Normal pericardium with no significant pericardial effusion. suboptimal study. Objective Vitals Vital Signs Date Temp Pulse Resp B/P (MAP) Pulse Ox O2 O2 Flow FiO2 Time Delivery Rate 09/13/18 97 5.0 28 07:43 09/13/18 90 20 Aerosol 07:41 T Tube 09/13/18 98.4 149/83 07:20 (105) Intake and Output 09/12/18 09/12/18 09/13/18 1414:59 22:59 06:59 IntakeIntake Total 460 ml 560 ml OutputOutput Total 80 ml BalanceBalance 380 ml 560 ml Results/Medications Result Diagram: 09/12/1873409/12/18734 Medications Current Medications Atorvastatin Calcium (Lipitor) 80 mg DAILY@21 PO Last administered on 09/12/18 20:54; Admin Dose 80 MG; Start 08/05/18 at 21:00 Miscellaneous Information 1 ea NOTE XX ; Start 08/05/18 at 09:00 Acetaminophen (Tylenol Liquid) 650 mg Q4H PRN PO ELEVATED TEMPERATURE Last administered on 09/01/18 00:29; Admin Dose 650 MG; Start 08/05/18 at 11:00 Aspirin (Aspirin) 81 mg DAILY NGT Last administered on 09/12/18 08:53; Admin Dose 81 MG; Start 08/06/18 at 09:00 Zinc Sulfate (Zinc Sulfate) 220 mg DAILY NGT Last administered on 09/12/18 08:51; Admin Dose 220 MG; Start 08/09/18 at 09:00 Folic Acid (Folic Acid) 1 mg DAILY NGT Last administered on 09/12/18 08:53; Admin Dose 1 MG; Start 08/09/18 at 09:00 Ascorbic Acid (Vitamin C) 500 mg DAILY NGT Last administered on 09/12/18 08:53; Admin Dose 500 MG; Start 08/09/18 at 09:00 IV Flush (NS 10 ml) 10 ml PRN PRN IV IV PROTOCOL; Start 08/11/18 at 16:30 Heparin Sodium (Porcine) (Heparin (1000 Units/ml)) 3,000 unit PRN PRN CATHETER Dialysis Last administered on 09/09/18at 22:35; Admin Dose 3,000 UNIT; Start 08/12/18 at 14:30 Labetalol HCl (Labetalol) 10 mg Q4H PRN IV ELEVATED SYSTOLIC BP > 170 Last administered on 08/20/18 16:54; Admin Dose 10 MG; Start 08/14/18 at 19:00 Clopidogrel Bisulfate (plaVIX) 75 mg DAILY NGT Last administered on 09/12/18 08:54; Admin Dose 75 MG; Start 08/18/18 at 13:30 Rifaximin (Xifaxan) 200 mg TID PO Last administered on 09/12/18 20:54; Admin Dose 200 MG; Start 08/19/18 at 13:00 Sevelamer Carbonate (Renvela) 2.4 gm WITH MEALS GTB Last administered on 09/12/18 18:02; Admin Dose 2.4 GM; Start 08/23/18 at 11:30 Ondansetron HCl (Zofran Inj) 4 mg Q4H PRN IV NAUSEA AND/OR VOMITING Last administered on 09/09/18 11:21; Admin Dose 4 MG; Start 08/23/18 at 14:30 Lactobacillus Acidophilus/ Rhamnosus (Culturelle) 1 cap TID GTB Last admi nistered on 09/12/18 20:54; Admin Dose 1 CAP; Start 08/24/18 at 13:00 Albumin Human 100 ml @ 100 mls/hr WITH DIALYSIS PRN IV SBP <90 DURING DIALYSIS; Start 08/26/18 at 12:00 Sodium Chloride (NS) -To prime the dialy... DIRECTED FOR HD PRN IV HD; Start 08/26/18 at 12:00 Nitroglycerin (Nitroglycerin 2% Oint) 0.5 inch Q6 PRN TD CHEST PAIN; Start 08/27/18 at 00:30 Lorazepam (Ativan) 1 mg Q4H PRN IV ANXIETY Last administered on 08/27/18 04:14; Admin Dose 1 MG; Start 08/27/18 at 04:30 Eye Lubricant (Artificial Tears Oph) 2 drop Q2H PRN BOTH EYES dry eyes; Start 08/28/18 at 01:30 Epoetin Jarrell-epbx (RETACRIT(esrd)) 10,000 unit MoWeFr@1700 SC Last administered on 09/12/18 18:05; Admin Dose 10,000 UNIT; Start 08/29/18 at 17:00 Morphine Sulfate (morphine) 3 mg Q1H PRN GTB PAIN NOT RELIEVED BY OTHERS Last administered on 09/09/18 09:45; Admin Dose 3 MG; Start 08/29/18 at 12:00 Lansoprazole (Prevacid) 30 mg DAILY@06 GTB Last administered on 09/13/18 05:51; Admin Dose 30 MG; Start 08/30/18 at 06:00 Carvedilol (Coreg) 25 mg TID PO Last administered on 09/12/18 20:54; Admin Dose 25 MG; Start 08/30/18 at 09:00 Oxycodone HCl (Roxicodone) 5 mg Q4H PRN PO MODERATE PAIN LEVEL 4-6 Last admini stered on 09/12/18 23:19; Admin Dose 5 MG; Start 09/01/18 at 10:00 Miscellaneous Information (* Miscellaneous Pharmacy Order) ASPIRIN ORDER WILL ... Q12 XX ; Start 09/05/18 at 10:00 Ipratropium [place] (Atrovent 0.02% (Neb)) 0.5 mg Q6HWA RESP THERAPY HHN Last administered on 09/13/18 07:34; Admin Dose 0.5 MG; Start 09/07/18 at 20:00 Albuterol (Proventil 0.083% (Neb)) 2.5 mg Q6H RESP THERAPY HHN Last administered on 09/13/18 07:34; Admin Dose 2.5 MG; Start 09/07/18 at 20:00 Multivit/Ca Carb/ B Cmplx/FA/Prenat (Shalonda-Jaylen) 1 tab DAILY GTB Last administered on 09/12/18 08:51; Admin Dose 1 TAB; Start 09/08/18 at 09:00 Heparin Sodium (Porcine) (Heparin (5000 Units/1ml)) 5,000 unit BID SC Last administered on 09/12/18 21:09; Admin Dose 5,000 UNIT; Start 09/08/18 at 21:00 Hydralazine HCl (Apresoline) 10 mg Q2 PRN IV ELEVATED SYSTOLIC BP; Start 09/12/18 at 16:30 Assessment/Plan Hospital Course (Demo Recall) 1. s/p V. fib cardiac arrest 2. Acute myocardial infarction 3. Status post emergent PCI of the 100% occluded LAD as well as PTCA of the diagonal and PCI LCX/ OM , sp PCI RCA 09/04 4. Diabetes 5. Respiratory failure status post intubation on the vent 6. Hypertension 7. Renal failure : acute on chronic 8. Likely history of congestive heart failure 9. Dyslipidemia 10. Encephalopathy: Clear anoxic brain injury on hypothermia protocol 11. Morbid obesity 12. Anemia 13. elevated LFT 14. fever, bacteremia pneumonia 15. Malnutrition, anasarca . 16. septic shock and staph aureus bacteremia 17. oropharyngeal bleeding 18. CVA Recommendations: Continue with aspirin/ plavix Antibiotic management as per ID recommendation HD as per renal rec. cont weaning as tolerated. cont Coreg as tolerated/needed Transfusion prn given her severe anemia and ND/ VF tele monitoring DVT prophylaxis Thank you for his referral. We will continue to follow along with you LOIS JOHNSON MD [facility] LOIS JOHNSON MD Sep 13, 2018 07:52
[2018-09-13] MEDS: SEVELAMER CARBONATE 2.4 GM PKT GTB SCH ×3 (08:50→17:49)
[2018-09-13] MEDS: ASCORBIC ACID 500 MG TAB NGT SCH (08:50)
[2018-09-13] MEDS: CLOPIDOGREL 75 MG TAB NGT SCH (08:50)
[2018-09-13] MEDS: MULTIVIT/CA CARB/B CMPLX/FA TAB GTB SCH (08:50)
[2018-09-13] MEDS: LACTOBACILLUS RHAMNOSUS CAP GTB SCH ×3 (08:51→21:57)
[2018-09-13] MEDS: RIFAXIMIN 200 MG TAB PO SCH ×3 (08:51→21:56)
[2018-09-13] MEDS: ZINC SULFATE 220 MG CAP NGT SCH (08:51)
[2018-09-13] MEDS: FOLIC ACID 1 MG TAB NGT SCH (08:52)
[2018-09-13] MEDS: ASPIRIN 81 MG TAB NGT SCH (08:52)
--- NOTE | 2018-09-13 08:54 | PN ---
DATE: 09/13/2018 SUBJECTIVE: The patient is stable. Urinary output has been increasing. No other events noted. OBJECTIVE: VITAL SIGNS: Blood pressure is 149/83, respiration is 20, pulse 90, temperature 98.4. HEENT: Head is normocephalic. NECK: Supple. HEART: Regular rate. LUNGS: Show diminished breath sounds at the base. ABDOMEN: Soft, nontender to palpation without rebound or guarding. EXTREMITIES: Negative for clubbing, cyanosis, no edema. DERMATOLOGIC: No rashes. MUSCULOSKELETAL: No joint effusion. NEUROLOGIC: No change in exam. MEDICATIONS: The patient's medications have been reviewed. LABORATORY DATA: From 09/12/2018 has been reviewed. Laboratory data from 09/13/2018 is pending. ASSESSMENT AND PLAN: 1. Nonoliguric acute kidney injury with previously normal baseline creatinine. Etiology of acute ki dney injury secondary to acute tubular necrosis. Patient's renal function continues to be improving as creatinine appears to be stabilizing around 2.3 to 2.5 mg/dL. Plan is to follow up renal panel to day. If creatinine remains stable, will discontinue Devan catheter. Continue to monitor. 2. Anemia. Monitor hemoglobin and hematocrit levels. Will give Epogen as needed. 3. Mineral bone disorder, monitor calcium and phosphorus levels. 4. Ventilatory dependent respiratory failure. Vent settings and ABG was reviewed. Continue to ash tor. 5. Coronary artery disease, status post percutaneous coronary intervention. Continue medical manage ment. 6. Acute cerebrovascular accident. Continue current treatment plan. 7. Dysphagia. Continue tube feeding. 8. Encephalopathy, improving. 9. Status post shock. 10. Status post cardiac arrest. Dictated By: BHUMI REDDY DO NR/NTS Conf#: [id number] DID#: [id number] CC: DANIAL TUCKER MD; HARPAL PEDROZA MD; LAUREN GREWAL MD;*End*
[2018-09-13] MEDS: HEPARIN 5,000 UNIT/1 ML VIAL SC SCH ×2 (10:09→22:57)
--- NOTE | 2018-09-13 10:55 | CONS ---
Assessment/Plan Assessment/Plan Assessment/Plan (Daily) Assessment and recommendations; 1. Patient had a post cardiac arrest, status post tracheostomy maintained on T- piece with excellent overall clinical status. 2. Encephalopathy with marked interval improvement as well. 3. Renal failure, on hemodialysis. 4. Status post treatment for bilateral pneumonia. 5. Status post tracheostomy and G-tube placement. Continue current supportive care. Patient to undergo tracheostomy capping trials. Patient likely can be decannulated. Consultation Date/Type/Reason Admit Date/Time Aug 04, 2018 at 23:10 Initial Consult Date 08/17/18 Type of Consult Pulmonary/critical care Requesting Provider: HARPAL AGGARWAL MD Date/Time of Note DATE: 09/13/18 TIME: 10:53 24 HR Interval Summary Free Text/Dictation Patient's condition is stable. Remains completely awake and alert. Has remained hemodynamically stable. Getting physical therapy at bedside. General exam; young lady, awake alert, currently no distress. On T-piece via tracheostomy. Exam/Review of Systems Exam Vitals Vital Signs Date Temp Pulse Resp B/P (MAP) Pulse Ox O2 O2 Flow FiO2 Time Delivery Rate 09/13/18 93 08:00 09/13/18 97 5.0 28 07:43 09/13/18 20 Aerosol 07:41 T Tube 09/13/18 98.4 149/83 07:20 (105) Intake and Output 09/12/18 09/12/18 09/13/18 1414:59 22:59 06:59 IntakeIntake Total 460 ml 560 ml OutputOutput Total 80 ml BalanceBalance 380 ml 560 ml Exam H ENT exam; supple neck, no JVD. No lymphadenopathy. Midline trachea. No thyromegaly. Patient has good dentition. Tracheostomy in place, attached to T- piece. Chest exam; clear to auscultation. S1-S2 audible, no murmurs. Regular rhythm. Abdomen exam; soft, nontender. No organomegaly. G-tube in place. Bowel sounds audible. Extremity exam; no peripheral edema clubbing. [employer] exam; no focal deficit. Results Result Diagram: 09/13/18 0739 09/13/18 0739 Results 24hrs Laboratory Tests Test 09/13/18 07:39 White Blood Count 8.3 Red Blood Count 3.15 L Hemoglobin 9.1 L Hematocrit 30.3 L Mean Corpuscular Volume 96.2 Mean Corpuscular Hemoglobin 28.9 L Mean Corpuscular Hemoglobin Concent 30.0 L Red Cell Distribution Width 17.1 H Platelet Count 160 Mean Platelet Volume 12.8 H Immature Granulocytes % 1.000 H Neutrophils % 53.5 Lymphocytes % 31.8 Monocytes % 9.7 Eosinophils % 3.3 Basophils % 0.7 Nucleated Red Blood Cells % 0.0 Immature Granulocytes # 0.080 H Neutrophils # 4.4 Lymphocytes # 2.6 Monocytes # 0.8 Eosinophils # 0.3 Basophils # 0.1 Nucleated Red Blood Cells # 0.0 Sodium Level 136 Potassium Level 3.7 Chloride Level 101 Carbon Dioxide Level 27 Anion Gap 8 Blood Urea Nitrogen 54 H Creatinine 2.03 H Est Glomerular Filtrat Rate mL/min 27 L Glucose Level 104 Calcium Level 10.6 H Phosphorus Level 6.2 H Magnesium Level 2.3 Medications Medication Current Medications Atorvastatin Calcium (Lipitor) 80 mg DAILY@21 PO Last administered on 09/12/18at 20:54; Admin Dose 80 MG; Start 08/05/18 at 21:00 Miscellaneous Information 1 ea NOTE XX ; Start 08/05/18 at 09:00 Acetaminophen (Tylenol Liquid) 650 mg Q4H PRN PO ELEVATED TEMPERATURE Last administered on 09/01/18 00:29; Admin Dose 650 MG; Start 08/05/18 at 11:00 Aspirin (Aspirin) 81 mg DAILY NGT Last administered on 09/13/18 08:52; Admin Dose 81 MG; Start 08/06/18 at 09:00 Zinc Sulfate (Zinc Sulfate) 220 mg DAILY NGT Last administered on 09/13/18 08:51; Admin Dose 220 MG; Start 08/09/18 at 09:00 Folic Acid (Folic Acid) 1 mg DAILY NGT Last administered on 09/13/18 08:52; Admin Dose 1 MG; Start 08/09/18 at 09:00 Ascorbic Acid (Vitamin C) 500 mg DAILY NGT Last administered on 09/13/18 08:50; Admin Dose 500 MG; Start 08/09/18 at 09:00 IV Flush (NS 10 ml) 10 ml PRN PRN IV IV PROTOCOL; Start 08/11/18 at 16:30 Heparin Sodium (Porcine) (Heparin (1000 Units/ml)) 3,000 unit PRN PRN CATHETER Dialysis Last administered on 09/09/18 22:35; Admin Dose 3,000 UNIT; Start 08/12/18 at 14:30 Labetalol HCl (Labetalol) 10 mg Q4H PRN IV ELEVATED SYSTOLIC BP > 170 Last administered on 08/20/18 16:54; Admin Dose 10 MG; Start 08/14/18 at 19:00 Clopidogrel Bisulfate (plaVIX) 75 mg DAILY NGT Last administered on 09/13/18 08:50; Admin Dose 75 MG; Start 08/18/18 at 13:30 Rifaximin (Xifaxan) 200 mg TID PO Last administered on 09/13/18 08:51; Admin Dose 200 MG; Start 08/19/18 at 13:00 Sevelamer Carbonate (Renvela) 2.4 gm WITH MEALS GTB Last administered on 09/13/18 08:50; Admin Dose 2.4 GM; Start 08/23/18 at 11:30 Ondansetron HCl (Zofran Inj) 4 mg Q4H PRN IV NAUSEA AND/OR VOMITING Last administered on 09/09/18 11:21; Admin Dose 4 MG; Start 08/23/18 at 14:30 Lactobacillus Acidophilus/ Rhamnosus (Culturelle) 1 cap TID GTB Last administered on 09/13/18 08:51; Admin Dose 1 CAP; Start 08/24/18 at 13:00 Albumin Human 100 ml @ 100 mls/hr WITH DIALYSIS PRN IV SBP <90 DURING DIALYSIS; Start 08/26/18 at 12:00 Sodium Chloride (NS) -To prime the dialy... DIRECTED FOR HD PRN IV HD; Start 08/26/18 at 12:00 Nitroglycerin (Nitroglycerin 2% Oint) 0.5 inch Q6 PRN TD CHEST PAIN; Start 08/27/18 at 00:30 Lorazepam (Ativan) 1 mg Q4H PRN IV ANXIETY Last administered on 08/27/18 04:14; Admin Dose 1 MG; Start 08/27/18 at 04:30 Eye Lubricant (Artificial Tears Oph) 2 drop Q2H PRN BOTH EYES dry eyes; Start 08/28/18 at 01:30 Epoetin Jarrell-epbx (RETACRIT(esrd)) 10,000 unit MoWeFr@1700 SC Last administered on 09/12/18 18:05; Admin Dose 10,000 UNIT; Start 08/29/18 at 17:00 Morphine Sulfate (morphine) 3 mg Q1H PRN GTB PAIN NOT RELIEVED BY OTHERS Last administered on 09/09/18 09:45; Admin Dose 3 MG; Start 08/29/18 at 12:00 Lansoprazole (Prevacid) 30 mg DAILY@06 GTB Last administered on 09/13/18 05 :51; Admin Dose 30 MG; Start 08/30/18 at 06:00 Carvedilol (Coreg) 25 mg TID PO Last administered on 09/13/18 08:51; Admin Dose 25 MG; Start 08/30/18 at 09:00 Oxycodone HCl (Roxicodone) 5 mg Q4H PRN PO MODERATE PAIN LEVEL 4-6 Last administered on 09/12/18 23:19; Admin Dose 5 MG; Start 09/01/18 at 10:00 Miscellaneous Information (* Miscellaneous Pharmacy Order) ASPIRIN ORDER WILL ... Q12 XX ; Start 09/05/18 at 10:00 Ipratropium [place] (Atrovent 0.02% (Neb)) 0.5 mg Q6HWA RESP THERAPY HHN Last administered on 09/13/18 07:34; Admin Dose 0.5 MG; Start 09/07/18 at 20:00 Albuterol (Proventil 0.083% (Neb)) 2.5 mg Q6H RESP THERAPY HHN Last administered on 09/13/18 07:34; Admin Dose 2.5 MG; Start 09/07/18 at 20:00 Multivit/Ca Carb/ B Cmplx/FA/Prenat (Shalonda-Jaylen) 1 tab DAILY GTB Last administered on 09/13/18 08:50; Admin Dose 1 TAB; Start 09/08/18 at 09:00 Heparin Sodium (Porcine) (Heparin (5000 Units/1ml)) 5,000 unit BID SC Last administered on 09/13/18 10:09; Admin Dose 5,000 UNIT; Start 09/08/18 at 21:00 Hydralazine HCl (Apresoline) 10 mg Q2 PRN IV ELEVATED SYSTOLIC BP; Start 09/12/18 at 16:30 QARNI,MARIAA Sep 13, 2018 10:55
--- NOTE | 2018-09-13 12:52 | PN ---
Date/Time of Note Date/Time of Note DATE: 09/13/18 TIME: 12:50 Objective Vitals Vital Signs Date Temp Pulse Resp B/P (MAP) Pulse Ox O2 O2 Flow FiO2 Time Delivery Rate 09/13/18 98.7 89 18 166/92 99 11:59 (116) 09/13/18 5.0 28 07:43 09/13/18 Aerosol 07:41 T Tube Intake and Output 09/12/18 09/12/18 09/13/18 1515:00 23:00 07:00 IntakeIntake Total 460 ml 560 ml OutputOutput Total 80 ml BalanceBalance 380 ml 560 ml Results Result Diagram: 09/13/1839 09/13/1839 Medications Medications Current Medications Atorvastatin Calcium (Lipitor) 80 mg DAILY@21 PO Last administered on 09/12/18at 20:54; Admin Dose 80 MG; Start 08/05/18 at 21:00 Miscellaneous Information 1 ea NOTE XX ; Start 08/05/18 at 09:00 Acetaminophen (Tylenol Liquid) 650 mg Q4H PRN PO ELEVATED TEMPERATURE Last administered on 09/01/18at 00:29; Admin Dose 650 MG; Start 08/05/18 at 11:00 Aspirin (Aspirin) 81 mg DAILY NGT Last administered on 09/13/18 08:52; Admin Dose 81 MG; Start 08/06/18 at 09:00 Zinc Sulfate (Zinc Sulfate) 220 mg DAILY NGT Last administered on 09/13/18 08:51; Admin Dose 220 MG; Start 08/09/18 at 09:00 Folic Acid (Folic Acid) 1 mg DAILY NGT Last administered on 09/13/18 08:52; Admin Dose 1 MG; Start 08/09/18 at 09:00 Ascorbic Acid (Vitamin C) 500 mg DAILY NGT Last administered on 09/13/18 08:50; Admin Dose 500 MG; Start 08/09/18 at 09:00 IV Flush (NS 10 ml) 10 ml PRN PRN IV IV PROTOCOL; Start 08/11/18 at 16:30 Heparin Sodium (Porcine) (Heparin (1000 Units/ml)) 3,000 unit PRN PRN CATHETER Dialysis Last administered on 09/09/18at 22:35; Admin Dose 3,000 UNIT; Start 08/12/18 at 14:30 Labetalol HCl (Labetalol) 10 mg Q4H PRN IV ELEVATED SYSTOLIC BP > 170 Last administered on 08/20/18 16:54; Admin Dose 10 MG; Start 08/14/18 at 19:00 Clopidogrel Bisulfate (plaVIX) 75 mg DAILY NGT Last administered on 09/13/18 08:50; Admin Dose 75 MG; Start 08/18/18 at 13:30 Rifaximin (Xifaxan) 200 mg TID PO Last administered on 09/13/18 12:32; Admin Dose 200 MG; Start 08/19/18 at 13:00 Sevelamer Carbonate (Renvela) 2.4 gm WITH MEALS GTB Last administered on 09/13/18 12:32; Admin Dose 2.4 GM; Start 08/23/18 at 11:30 Ondansetron HCl (Zofran Inj) 4 mg Q4H PRN IV NAUSEA AND/OR VOMITING Last administered on 09/09/18 11:21; Admin Dose 4 MG; Start 08/23/18 at 14:30 Lactobacillus Acidophilus/ Rhamnosus (Culturelle) 1 cap TID GTB Last administered on 09/13/18 12:32; Admin Dose 1 CAP; Start 08/24/18 at 13:00 Albumin Human 100 ml @ 100 mls/hr WITH DIALYSIS PRN IV SBP <90 DURING DIALYSIS; Start 08/26/18 at 12:00 Sodium Chloride (NS) -To prime the dialy... DIRECTED FOR HD PRN IV HD; Start 08/26/18 at 12:00 Nitroglycerin (Nitroglycerin 2% Oint) 0.5 inch Q6 PRN TD CHEST PAIN; Start 08/27/18 at 00:30 Lorazepam (Ativan) 1 mg Q4H PRN IV ANXIETY Last administered on 08/27/18 04:14; Admin Dose 1 MG; Start 08/27/18 at 04:30 Eye Lubricant (Artificial Tears Oph) 2 drop Q2H PRN BOTH EYES dry eyes; Start 08/28/18 at 01:30 Epoetin Jarrell-epbx (RETACRIT(esrd)) 10,000 unit MoWeFr@1700 SC Last administered on 09/12/18 18:05; Admin Dose 10,000 UNIT; Start 08/29/18 at 17:00 Morphine Sulfate (morphine) 3 mg Q1H PRN GTB PAIN NOT RELIEVED BY OTHERS Last administered on 09/09/18 09:45; Admin Dose 3 MG; Start 08/29/18 at 12:00 Lansoprazole (Prevacid) 30 mg DAILY@06 GTB Last administered on 09/13/18 05:51; Admin Dose 30 MG; Start 08/30/18 at 06:00 Carvedilol (Coreg) 25 mg TID PO Last administered on 09/13/18 12:34; Admin Dose 25 MG; Start 08/30/18 at 09:00 Oxycodone HCl (Roxicodone) 5 mg Q4H PRN PO MODERATE PAIN LEVEL 4-6 Last administered on 09/12/18 23:19; Admin Dose 5 MG; Start 09/01/18 at 10:00 Miscellaneous Information (* Miscellaneous Pharmacy Order) ASPIRIN ORDER WILL ... Q12 XX ; Start 09/05/18 at 10:00 Ipratropium [place] (Atrovent 0.02% (Neb)) 0.5 mg Q6HWA RESP THERAPY HHN Last administered on 09/13/18 07:34; Admin Dose 0.5 MG; Start 09/07/18 at 20:00 Albuterol (Proventil 0.083% (Neb)) 2.5 mg Q6H RESP THERAPY HHN Last administered on 09/13/18 07:34; Admin Dose 2.5 MG; Start 09/07/18 at 20:00 Multivit/Ca Carb/ B Cmplx/FA/Prenat (Shalonda-Jaylen) 1 tab DAILY GTB Last administered on 09/13/18 08:50; Admin Dose 1 TAB; Start 09/08/18 at 09:00 Heparin Sodium (Porcine) (Heparin (5000 Units/1ml)) 5,000 unit BID SC Last administered on 09/13/18 10:09; Admin Dose 5,000 UNIT; Start 09/08/18 at 21:00 Hydralazine HCl (Apresoline) 10 mg Q2 PRN IV ELEVATED SYSTOLIC BP; Start 09/12/18 at 16:30 VTE Prophylaxis Risk score (from Nsg)>0 risk: 7 SCD applied (from Nsg): Yes Lines/Catheters IV Catheter Type: Aguilar in Place: No Assessment/Plan Hospital Course Subjective Patient in good spirits, no complaints of pain Objective Physical exam General: Patient is laying in bed and answers questions appropriately, has trach Mentation: Patient is alert and oriented 4, Head: Normocephalic atraumatic Eyes: EOMI, pupils reactive to light Neck: Supple, nontender, midline Respiratory: Clear to auscultation bilaterally Cardiovascular: regular rate, no obvious murmurs Gastrointestinal: non-tender to palpation, bowel sounds heard. Neurological: Moves all extremities spontaneously Skin: No new skin lesions Assessment/Plan 1. CAD s/p PCI x3- stable - will continue monitoring for any concerning cardiac sx - Cardiology on board and appreciate recommendations. Will need to continue aspirin for life and DAPT for 1 year - s/p emergent Cath 08/05 with successful PTCA and stenting of proximal and mid LAD, PTCA of the large first diagonal and thrombectomy of the LAD - Repeat PCI on 08/07 performed with stenting to LCx - Repeat PCI on 09/04 with stenting ostial/proximal right coronary artery 2. Acute hypoxic respiratory failure- improving - Remains stable off vent. Per pulm with downsize trach once secretions minimize - Speech consulted for trials of PMV and advancing diet. - Pulm on board and appreciate recommendations. -ENT physician saw patient, however could not visualize airway fully, does not recommend removing tracheostomy at this time, will will need to follow-up outpatient for tracheostomy removal eventually. 3. Acute toxic/metabolic encephalopathy- resolved - Patient back to baseline and doing well. - Neurology input appreciated and will reconsult if needed 4. Bilateral CVA - PT/OT on board - Found on MRI, likely thromboembolic secondary to cardiopulmonary arrest per neurology - Continue on aspirin/Plavix and Lipitor 5. Anemia, blood loss and renal disease- stable - Hgb remains stable, transfuse as needed 6. Bilateral Pneumonia- resolved - ID on board and appreciate recommendations. Monitor off antibiotics 7. Septic shock secondary to PNA and bacteremia- resolved - Blood cultures and sputum culture results noted. - ID on board 8. Renal failure now off HD - Nephrology on board and appreciate recommendations. -Appears to be resolving, Devan catheter will be removed per nephrology and patient will be monitored off hemodialysis 9. Diabetes - A1c noted - ISS not needed 10. S/p V-fib cardiac arrest secondary to STEMI - Completed hypothermia protocol 11. Disposition - Will continue current treatment and monitor off HD. CM on board for SNF placement HARPAL PEDROZA Sep 13, 2018 12:52
--- NOTE | 2018-09-13 13:23 | CONS ---
DATE OF ADMISSION: 08/04/2018 DATE OF CONSULTATION: HISTORY OF PRESENT ILLNESS: Yuliet Nolasco is a 38-year-old female status post respiratory failure, status post tracheostomy, who is not tolerating PND. ENT was consulted to evaluate. PAST MEDICAL HISTORY: Ventricular fibrillation arrest, acute SC, diabetes, hypertension, chronic russell al failure, congestive heart failure, encephalopathy, stroke. PAST SURGICAL HISTORY: Tracheostomy, emergent stent placement. ALLERGIES: NO KNOWN DRUG ALLERGIES. MEDICATIONS: Reviewed. SOCIAL HISTORY: Negative for tobacco, alcohol or drug abuse. FAMILY HISTORY: Negative for any heart, lung, kidney, thyroid, liver disease. REVIEW OF SYSTEMS: A 12-point review of systems is otherwise noncontributory. PHYSICAL EXAMINATION: Today, the nose shows midline septum. Mucosa without erythema, edema. Oral c avity, oropharynx shows tongue, floor of mouth are normal. Oropharynx without lesion. Neck reveals no lymphadenopathy or thyromegaly. Her tracheostomy tube is stable. Endoscopy through the tube show s normal trachea down to the level of the marisabel. The endoscopy was then performed through the right nasal cavity. Nasopharynx is clear. Base of tongue is symmetric. Vallecula is open. Epiglottis n ormal. Vocal cords are moving well. There are no lesions. There may be some subglottic stenosis ho wever, but it is hard to ascertain given her gagging. At this point, the tracheostomy tube was remov ed and I was easily able to get scoped through the tracheostomy down to the level of the marisabel. How ever, when I was trying to retroflex to look up at the undersurface of the cords, I could not find th e proximal tracheal opening. The tracheostomy tube was easily placed without difficulty. IMPRESSION: 1. Respiratory failure. 2. Tracheostomy malfunction. PLAN: At this point, I see no significant opening in the trachea, approximately up towards the vocal cords. This may be a result of scarring from her procedure. With that being said, I am later surpr ised that she is not able to vocalize when occluding her tracheostomy tube. She may at some point be nefit from a laser procedure down the road when she is more stable. If there are any questions or co ncerns, please feel free to reconsult at any time. Dictated By: HARPAL ADAMS/ALLI Conf#: [id number] [facility]#: [id number] CC: LAUREN GREWAL MD; DANIAL TUCKER MD;*[facility]*
--- NOTE | 2018-09-13 15:18 | CONS ---
Assessment/Plan Assessment/Plan Hospital Course (Demo Recall) Alert, fells good, no fevers Antimicrobials: none Microbiology: Urine culture on admission grew E. coli and Proteus, blood cultures growing oxacillin sensitive staph aureus endotracheal aspirate also growing oxacillin sensitive staph aureus ear drainage preliminary growing staph aureus, repeat blood cultures 2 days ago negative Indwelling: Trach, PEG, right femoral Devan, right upper extremity PICC line Physical examination: Obese well-developed middle-aged woman who is intubated in no distress. Head atraumatic normocephalic neck is supple chest rise symmetrical breath sounds diminished bases. Heart: S1-S2. Abdomen distended. Bowel sounds hypoactive. Extremities cyanotic Assessment: 1. S/p sepsis 2. Healthcare associated pneumonia==> treated 3. S/p Oxacillin sensitive staph aureus bacteremia 2 to #3 4. S/p polymicrobial UTI 5. STEMI, status post stent 6. Status post V. fib arrest 7. Acute renal failure, started on hemodialysis 8. 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 Anemia and thrombocytopenia 10. Acute sinusitis and bilateral mastoiditis==> treated 11. Morbid obesity Plan: Off abx stable, ENT rec-s noted, continue present care Consultation Date/Type/Reason Admit Date/Time Aug 04, 2018 at 23:10 Initial Consult Date 08/12/18 Type of Consult id Requesting Provider: HARPAL AGGARWAL MD Date/Time of Note DATE: 09/13/18 TIME: 15:16 Exam/Review of Systems Exam Vitals Vital Signs Date Temp Pulse Resp B/P (MAP) Pulse Ox O2 O2 Flow FiO2 Time Delivery Rate 09/13/18 99 5.0 28 13:28 09/13/18 91 20 Aerosol 13:27 T Tube 09/13/18 98.7 166/92 11:59 (116) Intake and Output 09/12/18 09/12/18 09/13/18 1515:00 23:00 07:00 IntakeIntake Total 460 ml 560 ml OutputOutput Total 80 ml BalanceBalance 380 ml 560 ml Results Result Diagram: 09/13/18 0739 09/13/18 0739 Results 24hrs Laboratory Tests Test 09/13/18 07:39 White Blood Count 8.3 Red Blood Count 3.15 L Hemoglobin 9.1 L Hematocrit 30.3 L Mean Corpuscular Volume 96.2 Mean Corpuscular Hemoglobin 28.9 L Mean Corpuscular Hemoglobin Concent 30.0 L Red Cell Distribution Width 17.1 H Platelet Count 160 Mean Platelet Volume 12.8 H Immature Granulocytes % 1.000 H Neutrophils % 53.5 Lymphocytes % 31.8 Monocytes % 9.7 Eosinophils % 3.3 Basophils % 0.7 Nucleated Red Blood Cells % 0.0 Immature Granulocytes # 0.080 H Neutrophils # 4.4 Lymphocytes # 2.6 Monocytes # 0.8 Eosinophils # 0.3 Basophils # 0.1 Nucleated Red Blood Cells # 0.0 Sodium Level 136 Potassium Level 3.7 Chloride Level 101 Carbon Dioxide Level 27 Anion Gap 8 Blood Urea Nitrogen 54 H Creatinine 2.03 H Est Glomerular Filtrat Rate mL/min 27 L Glucose Level 104 Calcium Level 10.6 H Phosphorus Level 6.2 H Magnesium Level 2.3 Medications Medication Current Medications Atorvastatin Calcium (Lipitor) 80 mg DAILY@21 PO Last administered on 09/12/18 20:54; Admin Dose 80 MG; Start 08/05/18 at 21:00 Miscellaneous Information 1 ea NOTE XX ; Start 08/05/18 at 09:00 Acetaminophen (Tylenol Liquid) 650 mg Q4H PRN PO ELEVATED TEMPERATURE Last administered on 09/01/18 00:29; Admin Dose 650 MG; Start 08/05/18 at 11:00 Aspirin (Aspirin) 81 mg DAILY NGT Last administered on 09/13/18 08:52; Admin Dose 81 MG; Start 08/06/18 at 09:00 Zinc Sulfate (Zinc Sulfate) 220 mg DAILY NGT Last administered on 09/13/18 08:51; Admin Dose 220 MG; Start 08/09/18 at 09:00 Folic Acid (Folic Acid) 1 mg DAILY NGT Last administered on 09/13/18 08:52; Admin Dose 1 MG; Start 08/09/18 at 09:00 Ascorbic Acid (Vitamin C) 500 mg DAILY NGT Last administered on 09/13/18 08:50; Admin Dose 500 MG; Start 08/09/18 at 09:00 IV Flush (NS 10 ml) 10 ml PRN PRN IV IV PROTOCOL; Start 08/11/18 at 16:30 Heparin Sodium (Porcine) (Heparin (1000 Units/ml)) 3,000 unit PRN PRN CATHETER Dialysis Last administered on 09/09/18 22:35; Admin Dose 3,000 UNIT; Start 08/12/18 at 14:30 Labetalol HCl (Labetalol) 10 mg Q4H PRN IV ELEVATED SYSTOLIC BP > 170 Last administered on 08/20/18 16:54; Admin Dose 10 MG; Start 08/14/18 at 19:00 Clopidogrel Bisulfate (plaVIX) 75 mg DAILY NGT Last administered on 09/13/18 08:50; Admin Dose 75 MG; Start 08/18/18 at 13:30 Rifaximin (Xifaxan) 200 mg TID PO Last administered on 09/13/18 12:32; Admin Dose 200 MG; Start 08/19/18 at 13:00 Sevelamer Carbonate (Renvela) 2.4 gm WITH MEALS GTB Last administered on 09/13/18 12:32; Admin Dose 2.4 GM; Start 08/23/18 at 11:30 Ondansetron HCl (Zofran Inj) 4 mg Q4H PRN IV NAUSEA AND/OR VOMITING Last administered on 09/09/18 11:21; Admin Dose 4 MG; Start 08/23/18 at 14:30 Lactobacillus Acidophilus/ Rhamnosus (Culturelle) 1 cap TID GTB Last administered on 09/13/18 12:32; Admin Dose 1 CAP; Start 08/24/18 at 13:00 Albumin Human 100 ml @ 100 mls/hr WITH DIALYSIS PRN IV SBP <90 DURING DIALYSIS; Start 08/26/18 at 12:00 Sodium Chloride (NS) -To prime the dialy... DIRECTED FOR HD PRN IV HD; Start 08/26/18 at 12:00 Nitroglycerin (Nitroglycerin 2% Oint) 0.5 inch Q6 PRN TD CHEST PAIN; Start 08/27 at 00:30 Lorazepam (Ativan) 1 mg Q4H PRN IV ANXIETY Last administered on 08/27/18 04:14; Admin Dose 1 MG; Start 08/27/18 at 04:30 Eye Lubricant (Artificial Tears Oph) 2 drop Q2H PRN BOTH EYES dry eyes; Start 08/28/18 at 01:30 Epoetin Jarrell-epbx (RETACRIT(esrd)) 10,000 unit MoWeFr@1700 SC Last administered on 09/12/18 18:05; Admin Dose 10,000 UNIT; Start 08/29/18 at 17:00 Morphine Sulfate (morphine) 3 mg Q1H PRN GTB PAIN NOT RELIEVED BY OTHERS Last administered on 09/09/18 09:45; Admin Dose 3 MG; Start 08/29/18 at 12:00 Lansoprazole (Prevacid) 30 mg DAILY@06 GTB Last administered on 09/13/18 05:51; Admin Dose 30 MG; Start 08/30/18 at 06:00 Carvedilol (Coreg) 25 mg TID PO Last administered on 09/13/18 12:34; Admin Dose 25 MG; Start 08/30/18 at 09:00 Oxycodone HCl (Roxicodone) 5 mg Q4H PRN PO MODERATE PAIN LEVEL 4-6 Last administered on 09/12/18 23:19; Admin Dose 5 MG; Start 09/01/18 at 10:00 Miscellaneous Information (* Miscellaneous Pharmacy Order) ASPIRIN ORDER WILL ... Q12 XX ; Start 09/05/18 at 10:00 Ipratropium [place] (Atrovent 0.02% (Neb)) 0.5 mg Q6HWA RESP THERAPY HHN Last administered on 09/13/18 13:22; Admin Dose 0.5 MG; Start 09/07/18 at 20:00 Albuterol (Proventil 0.083% (Neb)) 2.5 mg Q6H RESP THERAPY HHN Last administered on 09/13/18 13:22; Admin Dose 2.5 MG; Start 09/07/18 at 20:00 Multivit/Ca Carb/ B Cmplx/FA/Prenat (Shalonda-Jaylen) 1 tab DAILY GTB Last administered on 09/13/18 08:50; Admin Dose 1 TAB; Start 09/08/18 at 09:00 Heparin Sodium (Porcine) (Heparin (5000 Units/1ml)) 5,000 unit BID SC Last administered on 09/13/18 10:09; Admin Dose 5,000 UNIT; Start 09/08/18 at 21:00 Hydralazine HCl (Apresoline) 10 mg Q2 PRN IV ELEVATED SYSTOLIC BP; Start 09/12/18 at 16:30 WIN LUCIANO NP Sep 13, 2018 15:18
[2018-09-13] MEDS: ATORVASTATIN 80 MG TAB PO SCH (21:56)
[2018-09-14] VITALS (12 sets, daily range): BP systolic 143–169; BP diastolic 73–97; PULSE 87–96; RESP 17–19
[2018-09-14] MEDS: ALBUTEROL 0.083% (NEB) 2.5 MG/3 ML AMP HHN SCH ×4 (01:44→19:53)
[2018-09-14] MEDS: LANSOPRAZOLE 30 MG CAP GTB SCH (05:39)
[2018-09-14] MEDS: IPRATROPIUM (NEB) 0.5 MG/2.5 ML AMP HHN SCH ×3 (07:56→19:53)
[2018-09-14] MEDS: SEVELAMER CARBONATE 2.4 GM PKT GTB SCH ×3 (08:22→17:35)
[2018-09-14] MEDS: CLOPIDOGREL 75 MG TAB NGT SCH (08:23)
[2018-09-14] MEDS: ASPIRIN 81 MG TAB NGT SCH (08:23)
[2018-09-14] MEDS: RIFAXIMIN 200 MG TAB PO SCH ×3 (08:23→21:44)
[2018-09-14] MEDS: FOLIC ACID 1 MG TAB NGT SCH (08:23)
[2018-09-14] MEDS: LACTOBACILLUS RHAMNOSUS CAP GTB SCH ×3 (08:23→21:44)
[2018-09-14] MEDS: MULTIVIT/CA CARB/B CMPLX/FA TAB GTB SCH (08:23)
[2018-09-14] MEDS: ZINC SULFATE 220 MG CAP NGT SCH (08:23)
[2018-09-14] MEDS: ASCORBIC ACID 500 MG TAB NGT SCH (08:23)
--- NOTE | 2018-09-14 10:16 | PN ---
DATE: 09/14/2018 SUBJECTIVE: The patient is stable, no events overnight. No fevers, chills, nausea, vomiting. OBJECTIVE: VITAL SIGNS: Blood pressure is 169/97, pulse 75, respirations 20, temperature 98.9. HEENT: Head is normocephalic. NECK: Supple. HEART: Regular rate. LUNGS: Show diminished breath sounds at base. ABDOMEN: Soft, nontender to palpation without rebound or guarding. EXTREMITIES: Negative for clubbing, cyanosis, no edema. DERMATOLOGIC: No rashes. MUSCULOSKELETAL: No joint effusion. NEUROLOGIC: No change in exam. MEDICATIONS: Have been reviewed. LABORATORY DATA: Has been reviewed. ASSESSMENT AND PLAN: 1. Nonoliguric acute kidney injury with previously normal baseline creatinine. Etiology of acute ki dney injury is secondary to acute tubular necrosis. Patient's renal function is improving, currently no longer dialysis dependent. Plan is to have Devan catheter removed. The expectation is that th is will happen today. Will continue to monitor renal function, continue supportive care, renally dos e all meds, avoid nephrotoxins. 2. Anemia. Continue to monitor hemoglobin and hematocrit levels. Will continue Epogen as needed. 3. Mineral bone disorder, monitor calcium and phosphorus levels. 4. Ventilator-dependent respiratory failure. Vent settings and ABG was reviewed. Continue to monit or. 5. Coronary artery disease status post percutaneous coronary intervention. Continue medical managem ent. 6. Acute cerebrovascular accident. Continue current treatment plan. 7. Dysphagia. Continue tube feeding. 8. Encephalopathy, improving. 9. Status post shock. 10. Status post cardiac arrest. Dictated By: BHUMI JOSEPH/ALLI Conf#: [id number] DID#: [id number] CC: DANIAL TUCKER MD;*EndCC*
[2018-09-14] MEDS: HEPARIN 5,000 UNIT/1 ML VIAL SC SCH ×2 (10:48→21:57)
--- NOTE | 2018-09-14 10:57 | CONS ---
Assessment/Plan Assessment/Plan Assessment/Plan (Daily) Assessment and recommendations; 1. Patient admitted with respiratory failure status post tracheostomy because of failure to be weaned from invasive mechanical ventilation. 2. Patient doing very well on T-piece. Undergoing PMV trials. 3. Renal failure, hemodialysis. 4. Status post coronary intervention. 5. Anemia. 6. Status post treatment for bilateral pneumonia. 7. CVA without any obvious neurological deficit. Continue current supportive care. Try PMV valve as tolerated. Patient even tually can be decannulated. Consider [facility]. Consultation Date/Type/Reason Admit Date/Time Aug 04, 2018 at 23:10 Initial Consult Date 08/17/18 Type of Consult Pulmonary/critical care Requesting Provider: HARPAL AGGARWAL MD Date/Time of Note DATE: 09/14/18 TIME: 10:54 24 HR Interval Summary Free Text/Dictation Patient's condition is stable. Remains completely awake and alert. General exam; young female, awake alert, currently in no distress. On T-piece via tracheostomy. Exam/Review of Systems Exam Vitals Vital Signs Date Temp Pulse Resp B/P (MAP) Pulse Ox O2 O2 Flow FiO2 Time Delivery Rate 09/14/18 95 08:16 09/14/18 98 5.0 28 08:02 09/14/18 20 Aerosol 08:00 T Tube 09/14/18 98.9 169/97 07:13 (121) Intake and Output 09/13/18 09/13/18 09/14/18 1515:00 23:00 07:00 IntakeIntake Total 460 ml 560 ml OutputOutput Total 90 ml 100 ml BalanceBalance 370 ml 460 ml Exam HE ENT exam; supple neck, no JVD. No lymphadenopathy. Midline trachea. No thyromegaly. Tracheostomy in place. Insertion site is clean. Patient has fair dentition. Chest exam; clear to auscultation. S1-S2 audible, no murmurs. Regular rhythm. Abdomen exam; soft, no organomegaly. G-tube in place. Bowel sounds audible. Extremity exam; no peripheral edema or clubbing. 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 Results Result Diagram: 09/14/18 0755 09/14/18 0755 Results 24hrs Laboratory Tests Test 09/14/18 07:55 White Blood Count 8.4 Red Blood Count 3.14 L Hemoglobin 9.3 L Hematocrit 30.3 L Mean Corpuscular Volume 96.5 Mean Corpuscular Hemoglobin 29.6 Mean Corpuscular Hemoglobin Concent 30.7 L Red Cell Distribution Width 17.1 H Platelet Count 169 Mean Platelet Volume 12.4 H Immature Granulocytes % 0.800 H Neutrophils % 51.9 Lymphocytes % 34.3 Monocytes % 8.8 Eosinophils % 3.5 Basophils % 0.7 Nucleated Red Blood Cells % 0.0 Immature Granulocytes # 0.070 H Neutrophils # 4.4 Lymphocytes # 2.9 Monocytes # 0.7 Eosinophils # 0.3 Basophils # 0.1 Nucleated Red Blood Cells # 0.0 Sodium Level 137 Potassium Level 4.1 Chloride Level 100 Carbon Dioxide Level 28 Anion Gap 9 Blood Urea Nitrogen 60 H Creatinine 1.69 H Est Glomerular Filtrat Rate mL/min 34 L Glucose Level 104 Calcium Level 10.2 Phosphorus Level 6.0 H Magnesium Level 2.2 Medications Medication Current Medications Atorvastatin Calcium (Lipitor) 80 mg DAILY@21 PO Last administered on 09/13/18at 21:56; Admin Dose 80 MG; Start 08/05/18 at 21:00 Miscellaneous Information 1 ea NOTE XX ; Start 08/05/18 at 09:00 Acetaminophen (Tylenol Liquid) 650 mg Q4H PRN PO ELEVATED TEMPERATURE Last administered on 09/01/18at 00:29; Admin Dose 650 MG; Start 08/05/18 at 11:00 Aspirin (Aspirin) 81 mg DAILY NGT Last administered on 09/14/18 08:23; Admin Dose 81 MG; Start 08/06/18 at 09:00 Zinc Sulfate (Zinc Sulfate) 220 mg DAILY NGT Last administered on 09/14/18 08:23; Admin Dose 220 MG; Start 08/09/18 at 09:00 Folic Acid (Folic Acid) 1 mg DAILY NGT Last administered on 09/14/18 08:23; Admin Dose 1 MG; Start 08/09/18 at 09:00 Ascorbic Acid (Vitamin C) 500 mg DAILY NGT Last administered on 09/14/18 08:23; Admin Dose 500 MG; Start 08/09/18 at 09:00 IV Flush (NS 10 ml) 10 ml PRN PRN IV IV PROTOCOL; Start 08/11/18 at 16:30 Heparin Sodium (Porcine) (Heparin (1000 Units/ml)) 3,000 unit PRN PRN CATHETER Dialysis Last administered on 09/09/18 22:35; Admin Dose 3,000 UNIT; Start 08/12/18 at 14:30 Labetalol HCl (Labetalol) 10 mg Q4H PRN IV ELEVATED SYSTOLIC BP > 170 Last administered on 08/20/18 16:54; Admin Dose 10 MG; Start 08/14/18 at 19:00 Clopidogrel Bisulfate (plaVIX) 75 mg DAILY NGT Last administered on 09/14/18 08:23; Admin Dose 75 MG; Start 08/18/18 at 13:30 Rifaximin (Xifaxan) 200 mg TID PO Last administered on 09/14/18 08:23; Admin Dose 200 MG; Start 08/19/18 at 13:00 Sevelamer Carbonate (Renvela) 2.4 gm WITH MEALS GTB Last administered on 09/14/18 08:22; Admin Dose 2.4 GM; Start 08/23/18 at 11:30 Ondansetron HCl (Zofran Inj) 4 mg Q4H PRN IV NAUSEA AND/OR VOMITING Last administered on 09/09/18 11:21; Admin Dose 4 MG; Start 08/23/18 at 14:30 Lactobacillus Acidophilus/ Rhamnosus (Culturelle) 1 cap TID GTB Last administered on 09/14/18 08:23; Admin Dose 1 CAP; Start 08/24/18 at 13:00 Albumin Human 100 ml @ 100 mls/hr WITH DIALYSIS PRN IV SBP <90 DURING DIALYSIS; Start 08/26/18 at 12:00 Sodium Chloride (NS) -To prime the dialy... DIRECTED FOR HD PRN IV HD; Start 08/26/18 at 12:00 Nitroglycerin (Nitroglycerin 2% Oint) 0.5 inch Q6 PRN TD CHEST PAIN; Start 08/27/18 at 00:30 Lorazepam (Ativan) 1 mg Q4H PRN IV ANXIETY Last administered on 08/27/18at 04:14; Admin Dose 1 MG; Start 08/27/18 at 04:30 Eye Lubricant (Artificial Tears Oph) 2 drop Q2H PRN BOTH EYES dry eyes; Start 08/28/18 at 01:30 Epoetin Jarrell-epbx (RETACRIT(esrd)) 10,000 unit MoWeFr@1700 SC Last administered on 09/12/18 18:05; Admin Dose 10,000 UNIT; Start 08/29/18 at 17:00 Morphine Sulfate (morphine) 3 mg Q1H PRN GTB PAIN NOT RELIEVED BY OTHERS Last administered on 09/09/18 09:45; Admin Dose 3 MG; Start 08/29/18 at 12:00 Lansoprazole (Prevacid) 30 mg DAILY@06 GTB Last administered on 09/14/18 05:39; Admin Dose 30 MG; Start 08/30/18 at 06:00 Carvedilol (Coreg) 25 mg TID PO Last administered on 09/14/18 08:23; Admin Dose 25 MG; Start 08/30/18 at 09:00 Oxycodone HCl (Roxicodone) 5 mg Q4H PRN PO MODERATE PAIN LEVEL 4-6 Last administered on 09/12/18 23:19; Admin Dose 5 MG; Start 09/01/18 at 10:00 Miscellaneous Information (* Miscellaneous Pharmacy Order) ASPIRIN ORDER WILL ... Q12 XX ; Start 09/05/18 at 10:00 Ipratropium [place] (Atrovent 0.02% (Neb)) 0.5 mg Q6HWA RESP THERAPY HHN Last administered on 09/14/18 07:56; Admin Dose 0.5 MG; Start 09/07/18 at 20:00 Albuterol (Proventil 0.083% (Neb)) 2.5 mg Q6H RESP THERAPY HHN Last administered on 09/14/18 07:56; Admin Dose 2.5 MG; Start 09/07/18 at 20:00 Multivit/Ca Carb/ B Cmplx/FA/Prenat (Shalonda-Jaylen) 1 tab DAILY GTB Last administered on 09/14/18 08:23; Admin Dose 1 TAB; Start 09/08/18 at 09:00 Heparin Sodium (Porcine) (Heparin (5000 Units/1ml)) 5,000 unit BID SC Last administered on 09/14/18 10:48; Admin Dose 5,000 UNIT; Start 09/08/18 at 21:00 Hydralazine HCl (Apresoline) 10 mg Q2 PRN IV ELEVATED SYSTOLIC BP; Start 09/12/18 at 16:30 MARIAA KINSEY Sep 14, 2018 10:57
--- NOTE | 2018-09-14 13:02 | PN ---
Date/Time of Note Date/Time of Note DATE: 09/14/18 TIME: 13:01 Objective Vitals Vital Signs Date Temp Pulse Resp B/P (MAP) Pulse Ox O2 O2 Flow FiO2 Time Delivery Rate 09/14/18 89 12:12 09/14/18 98.2 19 152/89 99 11:48 (110) 09/14/18 5.0 28 08:02 09/14/18 Aerosol 08:00 T Tube Intake and Output 09/13/18 09/13/18 09/14/18 1515:00 23:00 07:00 IntakeIntake Total 460 ml 560 ml OutputOutput Total 90 ml 100 ml BalanceBalance 370 ml 460 ml Results Result Diagram: 09/14/18 0755 09/14/18 0755 Medications Medications Current Medications Atorvastatin Calcium (Lipitor) 80 mg DAILY@21 PO Last administered on 09/13/18at 21:56; Admin Dose 80 MG; Start 08/05/18 at 21:00 Miscellaneous Information 1 ea NOTE XX ; Start 08/05/18 at 09:00 Acetaminophen (Tylenol Liquid) 650 mg Q4H PRN PO ELEVATED TEMPERATURE Last administered on 09/01/18at 00:29; Admin Dose 650 MG; Start 08/05/18 at 11:00 Aspirin (Aspirin) 81 mg DAILY NGT Last administered on 09/14/18 08:23; Admin Dose 81 MG; Start 08/06/18 at 09:00 Zinc Sulfate (Zinc Sulfate) 220 mg DAILY NGT Last administered on 09/14/18 08 :23; Admin Dose 220 MG; Start 08/09/18 at 09:00 Folic Acid (Folic Acid) 1 mg DAILY NGT Last administered on 09/14/18 08:23; Admin Dose 1 MG; Start 08/09/18 at 09:00 Ascorbic Acid (Vitamin C) 500 mg DAILY NGT Last administered on 09/14/18 08:23; Admin Dose 500 MG; Start 08/09/18 at 09:00 IV Flush (NS 10 ml) 10 ml PRN PRN IV IV PROTOCOL; Start 08/11/18 at 16:30 Heparin Sodium (Porcine) (Heparin (1000 Units/ml)) 3,000 unit PRN PRN CATHETER Dialysis Last administered on 09/09/18at 22:35; Admin Dose 3,000 UNIT; Start 08/12/18 at 14:30 Labetalol HCl (Labetalol) 10 mg Q4H PRN IV ELEVATED SYSTOLIC BP > 170 Last administered on 08/20/18at 16:54; Admin Dose 10 MG; Start 08/14/18 at 19:00 Clopidogrel Bisulfate (plaVIX) 75 mg DAILY NGT Last administered on 09/14/18 08:23; Admin Dose 75 MG; Start 08/18/18 at 13:30 Rifaximin (Xifaxan) 200 mg TID PO Last administered on 09/14/18 08:23; Admin Dose 200 MG; Start 08/19/18 at 13:00 Sevelamer Carbonate (Renvela) 2.4 gm WITH MEALS GTB Last administered on 09/14/18 08:22; Admin Dose 2.4 GM; Start 08/23/18 at 11:30 Ondansetron HCl (Zofran Inj) 4 mg Q4H PRN IV NAUSEA AND/OR VOMITING Last administered on 09/09/18at 11:21; Admin Dose 4 MG; Start 08/23/18 at 14:30 Lactobacillus Acidophilus/ Rhamnosus (Culturelle) 1 cap TID GTB Last administered on 09/14/18 08:23; Admin Dose 1 CAP; Start 08/24/18 at 13:00 Albumin Human 100 ml @ 100 mls/hr WITH DIALYSIS PRN IV SBP <90 DURING DIALYSIS; Start 08/26/18 at 12:00 Sodium Chloride (NS) -To prime the dialy... DIRECTED FOR HD PRN IV HD; Start 08/26/18 at 12:00 Nitroglycerin (Nitroglycerin 2% Oint) 0.5 inch Q6 PRN TD CHEST PAIN; Start 08/27/18 at 00:30 Lorazepam (Ativan) 1 mg Q4H PRN IV ANXIETY Last administered on 08/27/18 04:14; Admin Dose 1 MG; Start 08/27/18 at 04:30 Eye Lubricant (Artificial Tears Oph) 2 drop Q2H PRN BOTH EYES dry eyes; Start 08/28/18 at 01:30 Epoetin Jarrell-epbx (RETACRIT(esrd)) 10,000 unit MoWeFr@1700 SC Last administered on 09/12/18at 18:05; Admin Dose 10,000 UNIT; Start 08/29/18 at 17:00 Morphine Sulfate (morphine) 3 mg Q1H PRN GTB PAIN NOT RELIEVED BY OTHERS Last administered on 09/09/18 09:45; Admin Dose 3 MG; Start 08/29/18 at 12:00 Lansoprazole (Prevacid) 30 mg DAILY@06 GTB Last administered on 09/14/18 05:39; Admin Dose 30 MG; Start 08/30/18 at 06:00 Carvedilol (Coreg) 25 mg TID PO Last administered on 09/14/18 08:23; Admin Dose 25 MG; Start 08/30/18 at 09:00 Oxycodone HCl (Roxicodone) 5 mg Q4H PRN PO MODERATE PAIN LEVEL 4-6 Last administered on 09/12/18 23:19; Admin Dose 5 MG; Start 09/01/18 at 10:00 Miscellaneous Information (* Miscellaneous Pharmacy Order) ASPIRIN ORDER WILL ... Q12 XX ; Start 09/05/18 at 10:00 Ipratropium [place] (Atrovent 0.02% (Neb)) 0.5 mg Q6HWA RESP THERAPY HHN Last administered on 09/14/18 07:56; Admin Dose 0.5 MG; Start 09/07/18 at 20:00 Albuterol (Proventil 0.083% (Neb)) 2.5 mg Q6H RESP THERAPY HHN Last administered on 09/14/18 07:56; Admin Dose 2.5 MG; Start 09/07/18 at 20:00 Multivit/Ca Carb/ B Cmplx/FA/Prenat (Shalonda-Jaylen) 1 tab DAILY GTB Last administered on 09/14/18 08:23; Admin Dose 1 TAB; Start 09/08/18 at 09:00 Heparin Sodium (Porcine) (Heparin (5000 Units/1ml)) 5,000 unit BID SC Last administered on 09/14/18 10:48; Admin Dose 5,000 UNIT; Start 09/08/18 at 21:00 Hydralazine HCl (Apresoline) 10 mg Q2 PRN IV ELEVATED SYSTOLIC BP; Start 09/12/18 at 16:30 VTE Prophylaxis Risk score (from Nsg)>0 risk: 6 SCD applied (from Nsg): Yes Lines/Catheters IV Catheter Type: Aguilar in Place: No Assessment/Plan Hospital Course Subjective Patient in good spirits, no complaints of pain Objective Physical exam General: Patient is laying in bed and answers questions appropriately, has trach Mentation: Patient is alert and oriented 4, Head: Normocephalic atraumatic Eyes: EOMI, pupils reactive to light Neck: Supple, nontender, midline Respiratory: Clear to auscultation bilaterally Cardiovascular: regular rate, no obvious murmurs Gastrointestinal: non-tender to palpation, bowel sounds heard. Neurological: Moves all extremities spontaneously Skin: No new skin lesions Assessment/Plan 1. CAD s/p PCI x3- stable - will continue monitoring for any concerning cardiac sx - Cardiology on board and appreciate recommendations. Will need to continue aspirin for life and DAPT for 1 year - s/p emergent Cath 08/05 with successful PTCA and stenting of proximal and mid LAD, PTCA of the large first diagonal and thrombectomy of the LAD - Repeat PCI on 08/07 performed with stenting to LCx - Repeat PCI on 09/04 with stenting ostial/proximal right coronary artery 2. Acute hypoxic respiratory failure- improving - Remains stable off vent. Per pulm with downsize trach once secretions minimize - Speech consulted for trials of PMV and advancing diet. - Pulm on board and appreciate recommendations. -ENT physician saw patient, however could not visualize airway fully, does not recommend removing tracheostomy at this time, will will need to follow-up outpatient for tracheostomy removal eventually. 3. Acute toxic/metabolic encephalopathy- resolved - Patient back to baseline and doing well. - Neurology input appreciated and will reconsult if needed 4. Bilateral CVA - PT/OT on board - Found on MRI, likely thromboembolic secondary to cardiopulmonary arrest per neurology - Continue on aspirin/Plavix and Lipitor 5. Anemia, blood loss and renal disease- stable - Hgb remains stable, transfuse as needed 6. Bilateral Pneumonia- resolved - ID on board and appreciate recommendations. Monitor off antibiotics 7. Septic shock secondary to PNA and bacteremia- resolved - Blood cultures and sputum culture results noted. - ID on board 8. Renal failure now off HD - Nephrology on board and appreciate recommendations. -Appears to be resolving, Devan catheter will be removed per nephrology and patient will be monitored off hemodialysis 9. Diabetes - A1c noted - ISS not needed 10. S/p V-fib cardiac arrest secondary to STEMI - Completed hypothermia protocol 11. Disposition - Will continue current treatment and monitor off HD. CM on board for SNF placement HARPAL PEDROZA Sep 14, 2018 13:02
--- NOTE | 2018-09-14 16:41 | CONS ---
Consult Date/Type/Reason Admit Date/Time Aug 04, 2018 at 23:10 Initial Consult Date 08/05/18 Type of Consultation: cv Requesting Provider: HARPAL AGGARWAL MD Date/Time of Note DATE: 09/14/18 TIME: 16:40 Subjective Interventional cardiology follow-up progress note Subjective: Events noted discussed with the staff and tele was reviewed. no V tachycardia or V fibrillation. d/w family BP is stable she denies any cp to me now denies sob to me now events noted s/p PCI 100% occluded LAD 08/04 S/P PCI LCX/ OM s/p trach 08/22/18 PCI RCA 09/04/18 Objective: General: Obese female no acute distress s/p trach on O2 HEENT: NC/AT. pupils are equal. round. NECK: . no stridor. s/p trach on oxygen CV: RRR. systolic murmur; no gallop or rubs. PULM: no wheezing mild rhonchi. GI: Obese SOFT, NT, ND, no rebound or guarding s/pPEG Extremity: +B/L LE edema. no clubbing. neuro: awake and follows commands Psych: Calm now rectal: deferred vascular L femoral no bleeding or hematoma EKG August 06, 2018 was personally within normal sinus rhythm. T wave inversions anterior and inferior leads ECG 08/07: NSR ST T abn c/w ant/lat ischemia CXR 08/14: Nonspecific patchy bilateral pulmonary opacity, mildly improved on the right. No pneumothorax. Endotracheal tube, nasogastric tube, and right-sided PICC line remain in place. Stable mild cardiomegaly. The osseous structures are remarkable for degenerative enthesopathy of the spine. Chest x-ray done August 06 shows:No evidence for active cardiopulmonary disease. CXR 08/19: Diffuse bilateral reticular nodular infiltrates unchanged. Question bronchopneumonia versus failure. CXR 08/28/18: Allowing for support structures overlying the right base, no significant change. Left mid and bibasilar air space opacities/infiltrates are again present. Lines and tubes are stable ECHO personally reviewed Normal left ventricular cavity size. Normal left ventricular wall thickness. Ejection fraction is visually estimated at 55-65 %. Normal appearance of the mitral valve. Mitral valve is not well visualized. No mitral valve regurgitation is seen. Aortic valve not well visualized. No aortic regurgitation. Normal appearance of the tricuspid valve. Unable to obtain RVSP due to minimal presence of tricuspid regurgitation. No evidence of tricuspid regurgitation. Normal pericardium with no significant pericardial effusion. suboptimal study. Objective Vitals Vital Signs Date Temp Pulse Resp B/P (MAP) Pulse Ox O2 O2 Flow FiO2 Time Delivery Rate 09/14/18 93 16:17 09/14/18 98.2 19 161/90 97 15:52 (113) 09/14/18 5.0 28 14:43 09/14/18 Aerosol 14:41 Nasal Cannula T Tube Intake and Output 09/13/18 09/13/18 09/14/18 1515:00 23:00 07:00 IntakeIntake Total 460 ml 560 ml OutputOutput Total 90 ml 100 ml BalanceBalance 370 ml 460 ml Results/Medications Result Diagram: 09/14/18 0755 09/14/18 0755 Results 24 hrs Laboratory Tests Test 09/14/18 07:55 White Blood Count 8.4 Red Blood Count 3.14 L Hemoglobin 9.3 L Hematocrit 30.3 L Mean Corpuscular Volume 96.5 Mean Corpuscular Hemoglobin 29.6 Mean Corpuscular Hemoglobin Concent 30.7 L Red Cell Distribution Width 17.1 H Platelet Count 169 Mean Platelet Volume 12.4 H Immature Granulocytes % 0.800 H Neutrophils % 51.9 Lymphocytes % 34.3 Monocytes % 8.8 Eosinophils % 3.5 Basophils % 0.7 Nucleated Red Blood Cells % 0.0 Immature Granulocytes # 0.070 H Neutrophils # 4.4 Lymphocytes # 2.9 Monocytes # 0.7 Eosinophils # 0.3 Basophils # 0.1 Nucleated Red Blood Cells # 0.0 Sodium Level 137 Potassium Level 4.1 Chloride Level 100 Carbon Dioxide Level 28 Anion Gap 9 Blood Urea Nitrogen 60 H Creatinine 1.69 H Est Glomerular Filtrat Rate mL/min 34 L Glucose Level 104 Calcium Level 10.2 Phosphorus Level 6.0 H Magnesium Level 2.2 Medications Current Medications Atorvastatin Calcium (Lipitor) 80 mg DAILY@21 PO Last administered on 09/13/18at 21:56; Admin Dose 80 MG; Start 08/05/18 at 21:00 Miscellaneous Information 1 ea NOTE XX ; Start 08/05/18 at 09:00 Acetaminophen (Tylenol Liquid) 650 mg Q4H PRN PO ELEVATED TEMPERATURE Last administered on 09/01/18 00:29; Admin Dose 650 MG; Start 08/05/18 at 11:00 Aspirin (Aspirin) 81 mg DAILY NGT Last administered on 09/14/18 08:23; Admin Dose 81 MG; Start 08/06/18 at 09:00 Zinc Sulfate (Zinc Sulfate) 220 mg DAILY NGT Last administered on 09/14/18 08:23; Admin Dose 220 MG; Start 08/09/18 at 09:00 Folic Acid (Folic Acid) 1 mg DAILY NGT Last administered on 09/14/18 08:23; Admin Dose 1 MG; Start 08/09/18 at 09:00 Ascorbic Acid (Vitamin C) 500 mg DAILY NGT Last administered on 09/14/18 08:23; Admin Dose 500 MG; Start 08/09/18 at 09:00 IV Flush (NS 10 ml) 10 ml PRN PRN IV IV PROTOCOL; Start 08/11/18 at 16:30 Heparin Sodium (Porcine) (Heparin (1000 Units/ml)) 3,000 unit PRN PRN CATHETER Dialysis Last administered on 09/09/18 22:35; Admin Dose 3,000 UNIT; Start 08/12/18 at 14:30 Labetalol HCl (Labetalol) 10 mg Q4H PRN IV ELEVATED SYSTOLIC BP > 170 Last administered on 08/20/18 16:54; Admin Dose 10 MG; Start 08/14/18 at 19:00 Clopidogrel Bisulfate (plaVIX) 75 mg DAILY NGT Last administered on 09/14/18 08:23; Admin Dose 75 MG; Start 08/18/18 at 13:30 Rifaximin (Xifaxan) 200 mg TID PO Last administered on 09/14/18 13:01; Admin Dose 200 MG; Start 08/19/18 at 13:00 Sevelamer Carbonate (Renvela) 2.4 gm WITH MEALS GTB Last administered on 09/14/18 13:01; Admin Dose 2.4 GM; Start 08/23/18 at 11:30 Ondansetron HCl (Zofran Inj) 4 mg Q4H PRN IV NAUSEA AND/OR VOMITING Last administered on 09/09/18 11:21; Admin Dose 4 MG; Start 08/23/18 at 14:30 Lactobacillus Acidophilus/ Rhamnosus (Culturelle) 1 cap TID GTB Last administered on 09/14/18 13:01; Admin Dose 1 CAP; Start 08/24/18 at 13:00 Albumin Human 100 ml @ 100 mls/hr WITH DIALYSIS PRN IV SBP <90 DURING DIALYSIS; Start 08/26/18 at 12:00 Sodium Chloride (NS) -To prime the dialy... DIRECTED FOR HD PRN IV HD; Start 08/26/18 at 12:00 Nitroglycerin (Nitroglycerin 2% Oint) 0.5 inch Q6 PRN TD CHEST PAIN; Start 08/27/18 at 00:30 Lorazepam (Ativan) 1 mg Q4H PRN IV ANXIETY Last administered on 08/27/18 04:14; Admin Dose 1 MG; Start 08/27/18 at 04:30 Eye Lubricant (Artificial Tears Oph) 2 drop Q2H PRN BOTH EYES dry eyes; Start 08/28/18 at 01:30 Epoetin Jarrell-epbx (RETACRIT(esrd)) 10,000 unit MoWeFr@1700 SC Last administered on 09/12/18at 18:05; Admin Dose 10,000 UNIT; Start 08/29/18 at 17:00 Morphine Sulfate (morphine) 3 mg Q1H PRN GTB PAIN NOT RELIEVED BY OTHERS Last administered on 09/09/18 09:45; Admin Dose 3 MG; Start 08/29/18 at 12:00 Lansoprazole (Prevacid) 30 mg DAILY@06 GTB Last administered on 09/14/18at 05:39; Admin Dose 30 MG; Start 08/30/18 at 06:00 Oxycodone HCl (Roxicodone) 5 mg Q4H PRN PO MODERATE PAIN LEVEL 4-6 Last administered on 09/12/18 23:19; Admin Dose 5 MG; Start 09/01/18 at 10:00 Miscellaneous Information (* Miscellaneous Pharmacy Order) ASPIRIN ORDER WILL ... Q12 XX ; Start 09/05/18 at 10:00 Ipratropium [place] (Atrovent 0.02% (Neb)) 0.5 mg Q6HWA RESP THERAPY HHN Last administered on 09/14/18at 14:38; Admin Dose 0.5 MG; Start 09/07/18 at 20:00 Albuterol (Proventil 0.083% (Neb)) 2.5 mg Q6H RESP THERAPY HHN Last administered on 09/14/18at 14:39; Admin Dose 2.5 MG; Start 09/07/18 at 20:00 Multivit/Ca Carb/ B Cmplx/FA/Prenat (Shalonda-Jaylen) 1 tab DAILY GTB Last administered on 09/14/18at 08:23; Admin Dose 1 TAB; Start 09/08/18 at 09:00 Heparin Sodium (Porcine) (Heparin (5000 Units/1ml)) 5,000 unit BID SC Last administered on 09/14/18at 10:48; Admin Dose 5,000 UNIT; Start 09/08/18 at 21:00 Hydralazine HCl (Apresoline) 10 mg Q2 PRN IV ELEVATED SYSTOLIC BP; Start 09/12/18 at 16:30 Carvedilol (Coreg) 50 mg BID PO ; Start 09/14/18 at 21:00 Assessment/Plan Hospital Course (Demo Recall) 1. s/p V. fib cardiac arrest 2. Acute myocardial infarction 3. Status post emergent PCI of the 100% occluded LAD as well as PTCA of the diagonal and PCI LCX/ OM , sp PCI RCA 09/04 4. Diabetes 5. Respiratory failure status post intubation on the vent 6. Hypertension 7. Renal failure : acute on chronic 8. Likely history of congestive heart failure 9. Dyslipidemia 10. Encephalopathy: Clear anoxic brain injury on hypothermia protocol 11. Morbid obesity 12. Anemia 13. elevated LFT 14. fever, bacteremia pneumonia 15. Malnutrition, anasarca . 16. septic shock and staph aureus bacteremia 17. oropharyngeal bleeding 18. CVA Recommendations: Continue with aspirin/ plavix Antibiotic management as per ID recommendation HD as per renal rec. cont weaning as tolerated. inc coreg 50 bid Transfusion prn given her severe anemia and TX/ VF tele monitoring DVT prophylaxis Thank you for his referral. We will continue to follow along with you LOIS JOHNSON MD [facility] LOIS JOHNSON MD Sep 14, 2018 16:41
[2018-09-14] MEDS: EPOETIN ALFA-EPBX (ESRD) 10,000 UNIT/ML VIAL SC SCH (17:35)
[2018-09-14] MEDS: ATORVASTATIN 80 MG TAB PO SCH (21:44)
[2018-09-15] VITALS (12 sets, daily range): BP systolic 129–171; BP diastolic 73–97; PULSE 78–105; RESP 17–20
[2018-09-15] MEDS: ALBUTEROL 0.083% (NEB) 2.5 MG/3 ML AMP HHN SCH ×4 (02:14→19:53)
[2018-09-15] MEDS: LANSOPRAZOLE 30 MG CAP GTB SCH (05:53)
[2018-09-15] MEDS: oxyCODONE 5 MG TAB PO PRN (06:17)
[2018-09-15] MEDS: IPRATROPIUM (NEB) 0.5 MG/2.5 ML AMP HHN SCH ×3 (08:00→19:53)
[2018-09-15] MEDS: ASPIRIN 81 MG TAB NGT SCH (08:17)
[2018-09-15] MEDS: ZINC SULFATE 220 MG CAP NGT SCH (08:17)
[2018-09-15] MEDS: CLOPIDOGREL 75 MG TAB NGT SCH (08:17)
[2018-09-15] MEDS: RIFAXIMIN 200 MG TAB PO SCH ×3 (08:17→21:48)
[2018-09-15] MEDS: SEVELAMER CARBONATE 2.4 GM PKT GTB SCH ×3 (08:17→17:44)
[2018-09-15] MEDS: FOLIC ACID 1 MG TAB NGT SCH (08:17)
[2018-09-15] MEDS: ASCORBIC ACID 500 MG TAB NGT SCH (08:17)
[2018-09-15] MEDS: MULTIVIT/CA CARB/B CMPLX/FA TAB GTB SCH (08:17)
[2018-09-15] MEDS: LACTOBACILLUS RHAMNOSUS CAP GTB SCH ×3 (08:17→21:48)
[2018-09-15] MEDS: HEPARIN 5,000 UNIT/1 ML VIAL SC SCH ×2 (08:19→21:59)
--- NOTE | 2018-09-15 09:47 | PN ---
DATE: 09/15/2018 SUBJECTIVE: The patient is stable. No events overnight. OBJECTIVE: VITAL SIGNS: Blood pressure is 143/87, pulse 96, temperature 97.8. HEENT: Head is normocephalic. NECK: Supple. HEART: Regular rate. LUNGS: Show diminished breath sounds at the base. ABDOMEN: Soft, nontender to palpation. No rebound or guarding. EXTREMITIES: Negative for clubbing, cyanosis. No edema. DERMATOLOGIC: No rashes. MUSCULOSKELETAL: No joint effusion. NEUROLOGIC: No change in exam. MEDICATIONS: The patient's medications have been reviewed. LABORATORY DATA: Has been reviewed. Laboratory data from 09/15/2018 is pending. ASSESSMENT AND PLAN: 1. Nonoliguric acute kidney injury with previously normal baseline creatinine. Etiology of acute ki dney injury is secondary to acute tubular necrosis. The patient's renal function is improving. The patient is status post hemodialysis. Devan catheter was removed. Continue current treatment plan, supportive care, and renally dose all medications. 2. Anemia. Monitor hemoglobin and hematocrit levels. Continue Epogen. 3. Mineral bone disorder. Monitor calcium and phosphorus levels. 4. Ventilatory dependent respiratory failure. Ventilator settings and arterial blood gases were rev iewed. Continue to monitor. 5. Coronary artery disease. Continue current treatment plan. The patient is status post percutaneo us coronary intervention. 6. Acute cerebrovascular, clinically improving. Continue medical management. 7. Dysphagia. Continue tube feeding. 8. Encephalopathy, improved. 9. Status post shock. 10. Status post cardiac arrest. Dictated By: BHUMI JOSEPH/NTS Conf#: [id number] DID#: [id number] CC: DANIAL TUCKER MD;*EndCC*
[2018-09-15] MEDS ORDERED: BARIUM SULFATE 135 ML (E-Z HD) PO ONE (11:04)
--- NOTE | 2018-09-15 13:04 | PN ---
Date/Time of Note Date/Time of Note DATE: 09/15/18 TIME: 13:03 Objective Vitals Vital Signs Date Temp Pulse Resp B/P (MAP) Pulse Ox O2 O2 Flow FiO2 Time Delivery Rate 09/15/18 151/88 11:57 (109) 09/15/18 98.9 105 20 99 Trach 11:49 Collar 09/15/18 5.0 28 08:03 Intake and Output 09/14/18 09/14/18 09/15/18 1515:00 23:00 07:00 IntakeIntake Total 560 ml OutputOutput Total 10 ml BalanceBalance 550 ml Results Result Diagram: 09/15/18 0649 09/15/18 0649 Medications Medications Current Medications Atorvastatin Calcium (Lipitor) 80 mg DAILY@21 PO Last administered on 09/14/18at 21:44; Admin Dose 80 MG; Start 08/05/18 at 21:00 Miscellaneous Information 1 ea NOTE XX ; Start 08/05/18 at 09:00 Acetaminophen (Tylenol Liquid) 650 mg Q4H PRN PO ELEVATED TEMPERATURE Last administered on 09/01/18at 00:29; Admin Dose 650 MG; Start 08/05/18 at 11:00 Aspirin (Aspirin) 81 mg DAILY NGT Last administered on 09/15/18 08:17; Admin Dose 81 MG; Start 08/06/18 at 09:00 Zinc Sulfate (Zinc Sulfate) 220 mg DAILY NGT Last administered on 09/15/18 08:17; Admin Dose 220 MG; Start 08/09/18 at 09:00 Folic Acid (Folic Acid) 1 mg DAILY NGT Last administered on 09/15/18 08:17; Admin Dose 1 MG; Start 08/09/18 at 09:00 Ascorbic Acid (Vitamin C) 500 mg DAILY NGT Last administered on 09/15/18 08:17; Admin Dose 500 MG; Start 08/09/18 at 09:00 IV Flush (NS 10 ml) 10 ml PRN PRN IV IV PROTOCOL; Start 08/11/18 at 16:30 Heparin Sodium (Porcine) (Heparin (1000 Units/ml)) 3,000 unit PRN PRN CATHETER Dialysis Last administered on 09/09/18at 22:35; Admin Dose 3,000 UNIT; Start 08/12/18 at 14:30 Labetalol HCl (Labetalol) 10 mg Q4H PRN IV ELEVATED SYSTOLIC BP > 170 Last administered on 08/20/18 16:54; Admin Dose 10 MG; Start 08/14/18 at 19:00 Clopidogrel Bisulfate (plaVIX) 75 mg DAILY NGT Last administered on 09/15/18 08:17; Admin Dose 75 MG; Start 08/18/18 at 13:30 Rifaximin (Xifaxan) 200 mg TID PO Last administered on 09/15/18 12:48; Admin Dose 200 MG; Start 08/19/18 at 13:00 Sevelamer Carbonate (Renvela) 2.4 gm WITH MEALS GTB Last administered on 09/15/18 12:48; Admin Dose 2.4 GM; Start 08/23/18 at 11:30 Ondansetron HCl (Zofran Inj) 4 mg Q4H PRN IV NAUSEA AND/OR VOMITING Last administered on 09/09/18 11:21; Admin Dose 4 MG; Start 08/23/18 at 14:30 Lactobacillus Acidophilus/ Rhamnosus (Culturelle) 1 cap TID GTB Last administered on 09/15/18at 12:49; Admin Dose 1 CAP; Start 08/24/18 at 13:00 Albumin Human 100 ml @ 100 mls/hr WITH DIALYSIS PRN IV SBP <90 DURING DIALYSIS; Start 08/26/18 at 12:00 Sodium Chloride (NS) -To prime the dialy... DIRECTED FOR HD PRN IV HD; Start 08/26/18 at 12:00 Nitroglycerin (Nitroglycerin 2% Oint) 0.5 inch Q6 PRN TD CHEST PAIN; Start 08/27/18 at 00:30 Lorazepam (Ativan) 1 mg Q4H PRN IV ANXIETY Last administered on 08/27/18 04:14; Admin Dose 1 MG; Start 08/27/18 at 04:30 Eye Lubricant (Artificial Tears Oph) 2 drop Q2H PRN BOTH EYES dry eyes; Start 08/28/18 at 01:30 Epoetin Jarrell-epbx (RETACRIT(esrd)) 10,000 unit MoWeFr@1700 SC Last administered on 09/14/18at 17:35; Admin Dose 10,000 UNIT; Start 08/29/18 at 17:00 Morphine Sulfate (morphine) 3 mg Q1H PRN GTB PAIN NOT RELIEVED BY OTHERS Last administered on 09/09/18 09:45; Admin Dose 3 MG; Start 08/29/18 at 12:00 Lansoprazole (Prevacid) 30 mg DAILY@06 GTB Last administered on 09/15/18 05: 53; Admin Dose 30 MG; Start 08/30/18 at 06:00 Oxycodone HCl (Roxicodone) 5 mg Q4H PRN PO MODERATE PAIN LEVEL 4-6 Last administered on 09/15/18 06:17; Admin Dose 5 MG; Start 09/01/18 at 10:00 Miscellaneous Information (* Miscellaneous Pharmacy Order) ASPIRIN ORDER WILL ... Q12 XX ; Start 09/05/18 at 10:00 Ipratropium [place] (Atrovent 0.02% (Neb)) 0.5 mg Q6HWA RESP THERAPY HHN Last administered on 09/15/18 08:00; Admin Dose 0.5 MG; Start 09/07/18 at 20:00 Albuterol (Proventil 0.083% (Neb)) 2.5 mg Q6H RESP THERAPY HHN Last administered on 09/15/18 08:00; Admin Dose 2.5 MG; Start 09/07/18 at 20:00 Multivit/Ca Carb/ B Cmplx/FA/Prenat (Shalonda-Jaylen) 1 tab DAILY GTB Last administered on 09/15/18 08:17; Admin Dose 1 TAB; Start 09/08/18 at 09:00 Heparin Sodium (Porcine) (Heparin (5000 Units/1ml)) 5,000 unit BID SC Last administered on 09/15/18 08:19; Admin Dose 5,000 UNIT; Start 09/08/18 at 21:00 Hydralazine HCl (Apresoline) 10 mg Q2 PRN IV ELEVATED SYSTOLIC BP; Start 09/12/18 at 16:30 Carvedilol (Coreg) 50 mg BID PO Last administered on 09/15/18 08:18; Admin Dose 50 MG; Start 09/14/18 at 21:00 VTE Prophylaxis Risk score (from Nsg)>0 risk: 8 SCD applied (from Ns): Yes Lines/Catheters IV Catheter Type: Aguilar in Place: No Assessment/Plan Hospital Course Subjective Patient in good spirits, no complaints of pain Objective Physical exam General: Patient is laying in bed and answers questions appropriately, has trach Mentation: Patient is alert and oriented 4, Head: Normocephalic atraumatic Eyes: EOMI, pupils reactive to light Neck: Supple, nontender, midline Respiratory: Clear to auscultation bilaterally Cardiovascular: regular rate, no obvious murmurs Gastrointestinal: non-tender to palpation, bowel sounds heard. Neurological: Moves all extremities spontaneously Skin: No new skin lesions Assessment/Plan 1. CAD s/p PCI x3- stable - will continue monitoring for any concerning cardiac sx - Cardiology on board and appreciate recommendations. Will need to continue aspirin for life and DAPT for 1 year - s/p emergent Cath 08/05 with successful PTCA and stenting of proximal and mid LAD, PTCA of the large first diagonal and thrombectomy of the LAD - Repeat PCI on 08/07 performed with stenting to LCx - Repeat PCI on 09/04 with stenting ostial/proximal right coronary artery 2. Acute hypoxic respiratory failure- improving - Remains stable off vent. Per pulm with downsize trach once secretions minimize - Speech consulted for trials of PMV and advancing diet. - Pulm on board and appreciate recommendations. -ENT physician saw patient, however could not visualize airway fully, does not recommend removing tracheostomy at this time, will will need to follow-up outpatient for tracheostomy removal eventually. 3. Acute toxic/metabolic encephalopathy- resolved - Patient back to baseline and doing well. - Neurology input appreciated and will reconsult if needed 4. Bilateral CVA - PT/OT on board - Found on MRI, likely thromboembolic secondary to cardiopulmonary arrest per neurology - Continue on aspirin/Plavix and Lipitor 5. Anemia, blood loss and renal disease- stable - Hgb remains stable, transfuse as needed 6. Bilateral Pneumonia- resolved - ID on board and appreciate recommendations. Monitor off antibiotics 7. Septic shock secondary to PNA and bacteremia- resolved - Blood cultures and sputum culture results noted. - ID on board 8. Renal failure now off HD - Nephrology on board and appreciate recommendations. -Appears to be resolving, Devan catheter will be removed per nephrology and patient will be monitored off hemodialysis 9. Diabetes - A1c noted - ISS not needed 10. S/p V-fib cardiac arrest secondary to STEMI - Completed hypothermia protocol 11. Disposition - Will continue current treatment and monitor off HD. CM on board for SNF placement HARPAL PEDROZA Sep 15, 2018 13:04
--- NOTE | 2018-09-15 15:39 | CONS ---
Consult Date/Type/Reason Admit Date/Time Aug 04, 2018 at 23:10 Initial Consult Date 08/05/18 Type of Consultation: cv Requesting Provider: HARPAL AGGARWAL MD Date/Time of Note DATE: 09/15/18 TIME: 15:37 Subjective Interventional cardiology follow-up progress note Subjective: Events noted discussed with the staff and tele was reviewed. no V tachycardia or V fibrillation. d/w family /father BP is stable she denies any cp to me now She does complain of shortness of breath at this point events noted s/p PCI 100% occluded LAD 08/04 S/P PCI LCX/ OM s/p trach 08/22/18 PCI RCA 09/04/18 Objective: General: Obese female no acute distress s/p trach on O2 HEENT: NC/AT. pupils are equal. round. NECK: . no stridor. s/p trach on oxygen CV: RRR. systolic murmur; no gallop or rubs. PULM: no wheezing mild rhonchi. GI: Obese SOFT, NT, ND, no rebound or guarding s/pPEG Extremity: +B/L LE edema. no clubbing. neuro: awake and follows commands Psych: Calm now rectal: deferred vascular L femoral no bleeding or hematoma EKG August 06, 2018 was personally within normal sinus rhythm. T wave inversions anterior and inferior leads ECG 08/07: NSR ST T abn c/w ant/lat ischemia CXR 08/14: Nonspecific patchy bilateral pulmonary opacity, mildly improved on the right. No pneumothorax. Endotracheal tube, nasogastric tube, and right-sided PICC line remain in place. Stable mild cardiomegaly. The osseous structures are remarkable for degenerative enthesopathy of the spine. Chest x-ray done August 06 shows:No evidence for active cardiopulmonary disease. CXR 08/19: Diffuse bilateral reticular nodular infiltrates unchanged. Question bronchopneumonia versus failure. CXR 08/28/18: Allowing for support structures overlying the right base, no significant change. Left mid and bibasilar air space opacities/infiltrates are again present. Lines and tubes are stable ECHO personally reviewed Normal left ventricular cavity size. Normal left ventricular wall thickness. Ejection fraction is visually estimated at 55-65 %. Normal appearance of the mitral valve. Mitral valve is not well visualized. No mitral valve regurgitation is seen. Aortic valve not well visualized. No aortic regurgitation. Normal appearance of the tricuspid valve. Unable to obtain RVSP due to minimal presence of tricuspid regurgitation. No evidence of tricuspid regurgitation. Normal pericardium with no significant pericardial effusion. suboptimal study. Objective Vitals Vital Signs Date Temp Pulse Resp B/P (MAP) Pulse Ox O2 O2 Flow FiO2 Time Delivery Rate 09/15/18 99.5 94 20 152/85 100 Trach 15:20 (107) Collar 09/15/18 5.0 28 14:49 Intake and Output 09/14/18 09/14/18 09/15/18 1515:00 23:00 07:00 IntakeIntake Total 560 ml OutputOutput Total 10 ml BalanceBalance 550 ml Results/Medications Result Diagram: 09/15/18 0649 09/15/18 0649 Results 24 hrs Laboratory Tests Test 09/15/18 06:49 White Blood Count 8.1 Red Blood Count 3.34 L Hemoglobin 9.7 L Hematocrit 31.9 L Mean Corpuscular Volume 95.5 Mean Corpuscular Hemoglobin 29.0 Mean Corpuscular Hemoglobin Concent 30.4 L Red Cell Distribution Width 17.1 H Platelet Count 164 Mean Platelet Volume 12.4 H Immature Granulocytes % 0.600 H Neutrophils % 56.1 Lymphocytes % 31.4 Monocytes % 8.6 Eosinophils % 2.6 Basophils % 0.7 Nucleated Red Blood Cells % 0.0 Immature Granulocytes # 0.050 H Neutrophils # 4.5 Lymphocytes # 2.5 Monocytes # 0.7 Eosinophils # 0.2 Basophils # 0.1 Nucleated Red Blood Cells # 0.0 Sodium Level 138 Potassium Level 3.9 Chloride Level 100 Carbon Dioxide Level 28 Anion Gap 10 Blood Urea Nitrogen 58 H Creatinine 1.50 H Est Glomerular Filtrat Rate mL/min 39 L Glucose Level 107 Calcium Level 10.0 Phosphorus Level 5.9 H Magnesium Level 2.0 Medications Current Medications Atorvastatin Calcium (Lipitor) 80 mg DAILY@21 PO Last administered on 09/14/18at 21:44; Admin Dose 80 MG; Start 08/05/18 at 21:00 Miscellaneous Information 1 ea NOTE XX ; Start 08/05/18 at 09:00 Acetaminophen (Tylenol Liquid) 650 mg Q4H PRN PO ELEVATED TEMPERATURE Last administered on 09/01/18at 00:29; Admin Dose 650 MG; Start 08/05/18 at 11:00 Aspirin (Aspirin) 81 mg DAILY NGT Last administered on 09/15/18 08:17; Admin Dose 81 MG; Start 08/06/18 at 09:00 Zinc Sulfate (Zinc Sulfate) 220 mg DAILY NGT Last administered on 09/15/18 08:17; Admin Dose 220 MG; Start 08/09/18 at 09:00 Folic Acid (Folic Acid) 1 mg DAILY NGT Last administered on 09/15/18 08:17; Admin Dose 1 MG; Start 08/09/18 at 09:00 Ascorbic Acid (Vitamin C) 500 mg DAILY NGT Last administered on 09/15/18 08:17; Admin Dose 500 MG; Start 08/09/18 at 09:00 IV Flush (NS 10 ml) 10 ml PRN PRN IV IV PROTOCOL; Start 08/11/18 at 16:30 Heparin Sodium (Porcine) (Heparin (1000 Units/ml)) 3,000 unit PRN PRN CATHETER Dialysis Last administered on 09/09/18 22:35; Admin Dose 3,000 UNIT; Start at 14:30 Labetalol HCl (Labetalol) 10 mg Q4H PRN IV ELEVATED SYSTOLIC BP > 170 Last administered on 08/20/18 16:54; Admin Dose 10 MG; Start 08/14/18 at 19:00 Clopidogrel Bisulfate (plaVIX) 75 mg DAILY NGT Last administered on 09/15/18 08:17; Admin Dose 75 MG; Start 08/18/18 at 13:30 Rifaximin (Xifaxan) 200 mg TID PO Last administered on 09/15/18 12:48; Admin Dose 200 MG; Start 08/19/18 at 13:00 Sevelamer Carbonate (Renvela) 2.4 gm WITH MEALS GTB Last administered on 09/15/18 12:48; Admin Dose 2.4 GM; Start 08/23/18 at 11:30 Ondansetron HCl (Zofran Inj) 4 mg Q4H PRN IV NAUSEA AND/OR VOMITING Last administered on 09/09/18 11:21; Admin Dose 4 MG; Start 08/23/18 at 14:30 Lactobacillus Acidophilus/ Rhamnosus (Culturelle) 1 cap TID GTB Last administered on 4/27/19at 12:49; Admin Dose 1 CAP; Start 08/24/18 at 13:00 Albumin Human 100 ml @ 100 mls/hr WITH DIALYSIS PRN IV SBP <90 DURING DIALYSIS; Start 08/26/18 at 12:00 Sodium Chloride (NS) -To prime the dialy... DIRECTED FOR HD PRN IV HD; Start 08/26/18 at 12:00 Nitroglycerin (Nitroglycerin 2% Oint) 0.5 inch Q6 PRN TD CHEST PAIN; Start 08/27/18 at 00:30 Lorazepam (Ativan) 1 mg Q4H PRN IV ANXIETY Last administered on 08/27/18 04:14; Admin Dose 1 MG; Start 08/27/18 at 04:30 Eye Lubricant (Artificial Tears Oph) 2 drop Q2H PRN BOTH EYES dry eyes; Start 08/28/18 at 01:30 Epoetin Jarrell-epbx (RETACRIT(esrd)) 10,000 unit MoWeFr@1700 SC Last administered on 09/14/18at 17:35; Admin Dose 10,000 UNIT; Start 08/29/18 at 17:00 Morphine Sulfate (morphine) 3 mg Q1H PRN GTB PAIN NOT RELIEVED BY OTHERS Last administered on 09/09/18at 09:45; Admin Dose 3 MG; Start 08/29/18 at 12:00 Lansoprazole (Prevacid) 30 mg DAILY@06 GTB Last administered on 09/15/18at 05:53; Admin Dose 30 MG; Start 08/30/18 at 06:00 Oxycodone HCl (Roxicodone) 5 mg Q4H PRN PO MODERATE PAIN LEVEL 4-6 Last administered on 09/15/18at 06:17; Admin Dose 5 MG; Start 09/01/18 at 10:00 Miscellaneous Information (* Miscellaneous Pharmacy Order) ASPIRIN ORDER WILL ... Q12 XX ; Start 09/05/18 at 10:00 Ipratropium [place] (Atrovent 0.02% (Neb)) 0.5 mg Q6HWA RESP THERAPY HHN Last administered on 09/15/18at 14:49; Admin Dose 0.5 MG; Start 09/07/18 at 20:00 Albuterol (Proventil 0.083% (Neb)) 2.5 mg Q6H RESP THERAPY HHN Last administered on 09/15/18 14:49; Admin Dose 2.5 MG; Start 09/07/18 at 20:00 Multivit/Ca Carb/ B Cmplx/FA/Prenat (Shalonda-Jaylen) 1 tab DAILY GTB Last administered on 09/15/18 08:17; Admin Dose 1 TAB; Start 09/08/18 at 09:00 Heparin Sodium (Porcine) (Heparin (5000 Units/1ml)) 5,000 unit BID SC Last administered on 09/15/18 08:19; Admin Dose 5,000 UNIT; Start 09/08/18 at 21:00 Hydralazine HCl (Apresoline) 10 mg Q2 PRN IV ELEVATED SYSTOLIC BP; Start 09/12/18 at 16:30 Carvedilol (Coreg) 50 mg BID PO Last administered on 09/15/18 08:18; Admin Dose 50 MG; Start 09/14/18 at 21:00 Assessment/Plan Hospital Course (Demo Recall) 1. s/p V. fib cardiac arrest 2. Acute myocardial infarction 3. Status post emergent PCI of the 100% occluded LAD as well as PTCA of the diagonal and PCI LCX/ OM , sp PCI RCA 09/04 4. Diabetes 5. Respiratory failure status post intubation on the vent 6. Hypertension 7. Renal failure : acute on chronic 8. Likely history of congestive heart failure 9. Dyslipidemia 10. Encephalopathy: Clear anoxic brain injury on hypothermia protocol 11. Morbid obesity 12. Anemia 13. elevated LFT 14. fever, bacteremia pneumonia 15. Malnutrition, anasarca . 16. septic shock and staph aureus bacteremia 17. oropharyngeal bleeding 18. CVA Recommendations: Continue with aspirin/ plavix Antibiotic management as per ID recommendation HD as per renal rec. weaning as tolerated. We will defer to pulmonary team Continue with Coreg 50 bid Transfusion prn given her severe anemia and [place]/ VF tele monitoring DVT prophylaxis Thank you for his referral. We will continue to follow along with you LOIS JOHNSON MD [facility] LOIS JOHNSON MD Sep 15, 2018 15:39
[2018-09-15] MEDS: ATORVASTATIN 80 MG TAB PO SCH (21:48)
--- NOTE | 2018-09-15 22:24 | CONS ---
Consult Date/Type/Reason Admit Date/Time Aug 04, 2018 at 23:10 Initial Consult Date 08/05/18 Type of Consultation: Pulm Requesting Provider: HARPAL AGGARWAL MD Date/Time of Note DATE: 09/15/18 TIME: 22:20 Subjective No events; stable on trach collar. Objective Vitals Vital Signs Date Temp Pulse Resp B/P (MAP) Pulse Ox O2 O2 Flow FiO2 Time Delivery Rate 09/15/18 97.6 78 17 171/97 100 20:48 (121) 09/15/18 Aerosol 5.0 28 19:55 Intake and Output 09/14/18 09/14/18 09/15/18 1515:00 23:00 07:00 IntakeIntake Total 560 ml OutputOutput Total 10 ml BalanceBalance 550 ml Exam HEENT: Neck supple; no JVD; no LAD: + trach CVS: RRR, S1 and S2 CHEST: Coarse BS b/l ABD: Soft, NT, + BS EXT: No c/c/e Results/Medications Result Diagram: 09/15/18 0649 09/15/18 0649 Results 24 hrs Laboratory Tests Test 09/15/18 06:49 White Blood Count 8.1 Red Blood Count 3.34 L Hemoglobin 9.7 L Hematocrit 31.9 L Mean Corpuscular Volume 95.5 Mean Corpuscular Hemoglobin 29.0 Mean Corpuscular Hemoglobin Concent 30.4 L Red Cell Distribution Width 17.1 H Platelet Count 164 Mean Platelet Volume 12.4 H Immature Granulocytes % 0.600 H Neutrophils % 56.1 Lymphocytes % 31.4 Monocytes % 8.6 Eosinophils % 2.6 Basophils % 0.7 Nucleated Red Blood Cells % 0.0 Immature Granulocytes # 0.050 H Neutrophils # 4.5 Lymphocytes # 2.5 Monocytes # 0.7 Eosinophils # 0.2 Basophils # 0.1 Nucleated Red Blood Cells # 0.0 Sodium Level 138 Potassium Level 3.9 Chloride Level 100 Carbon Dioxide Level 28 Anion Gap 10 Blood Urea Nitrogen 58 H Creatinine 1.50 H Est Glomerular Filtrat Rate mL/min 39 L Glucose Level 107 Calcium Level 10.0 Phosphorus Level 5.9 H Magnesium Level 2.0 Medications Current Medications Atorvastatin Calcium (Lipitor) 80 mg DAILY@21 PO Last administered on 09/15/18at 21:48; Admin Dose 80 MG; Start 08/05/18 at 21:00 Miscellaneous Information 1 ea NOTE XX ; Start 08/05/18 at 09:00 Acetaminophen (Tylenol Liquid) 650 mg Q4H PRN PO ELEVATED TEMPERATURE Last administered on 09/01/18 00:29; Admin Dose 650 MG; Start 08/05/18 at 11:00 Aspirin (Aspirin) 81 mg DAILY NGT Last administered on 09/15/18 08:17; Admin Dose 81 MG; Start 08/06/18 at 09:00 Zinc Sulfate (Zinc Sulfate) 220 mg DAILY NGT Last administered on 09/15/18 08:17; Admin Dose 220 MG; Start 08/09/18 at 09:00 Folic Acid (Folic Acid) 1 mg DAILY NGT Last administered on 09/15/18 08:17; Admin Dose 1 MG; Start 08/09/18 at 09:00 Ascorbic Acid (Vitamin C) 500 mg DAILY NGT Last administered on 09/15/18 08:17; Admin Dose 500 MG; Start 08/09/18 at 09:00 IV Flush (NS 10 ml) 10 ml PRN PRN IV IV PROTOCOL; Start 08/11/18 at 16:30 Heparin Sodium (Porcine) (Heparin (1000 Units/ml)) 3,000 unit PRN PRN CATHETER Dialysis Last administered on 09/09/18 22:35; Admin Dose 3,000 UNIT; Start 08/12/18 at 14:30 Labetalol HCl (Labetalol) 10 mg Q4H PRN IV ELEVATED SYSTOLIC BP > 170 Last administered on 08/20/18at 16:54; Admin Dose 10 MG; Start 08/14/18 at 19:00 Clopidogrel Bisulfate (plaVIX) 75 mg DAILY NGT Last administered on 09/15/18 08:17; Admin Dose 75 MG; Start 08/18/18 at 13:30 Rifaximin (Xifaxan) 200 mg TID PO Last administered on 09/15/18 21:48; Admin Dose 200 MG; Start 08/19/18 at 13:00 Sevelamer Carbonate (Renvela) 2.4 gm WITH MEALS GTB Last administered on 09/15/18 17:44; Admin Dose 2.4 GM; Start 08/23/18 at 11:30 Ondansetron HCl (Zofran Inj) 4 mg Q4H PRN IV NAUSEA AND/OR VOMITING Last administered on 09/09/18at 11:21; Admin Dose 4 MG; Start 08/23/18 at 14:30 Lactobacillus Acidophilus/ Rhamnosus (Culturelle) 1 cap TID GTB Last administe red on 09/15/18at 21:48; Admin Dose 1 CAP; Start 08/24/18 at 13:00 Albumin Human 100 ml @ 100 mls/hr WITH DIALYSIS PRN IV SBP <90 DURING DIALYSIS; Start 08/26/18 at 12:00 Sodium Chloride (NS) -To prime the dialy... DIRECTED FOR HD PRN IV HD; Start 08/26/18 at 12:00 Nitroglycerin (Nitroglycerin 2% Oint) 0.5 inch Q6 PRN TD CHEST PAIN; Start 08/27/18 at 00:30 Lorazepam (Ativan) 1 mg Q4H PRN IV ANXIETY Last administered on 08/27/18at 04:14; Admin Dose 1 MG; Start 08/27/18 at 04:30 Eye Lubricant (Artificial Tears Oph) 2 drop Q2H PRN BOTH EYES dry eyes; Start 08/28/18 at 01:30 Epoetin Jarrell-epbx (RETACRIT(esrd)) 10,000 unit MoWeFr@1700 SC Last administered on 09/14/18at 17:35; Admin Dose 10,000 UNIT; Start 08/29/18 at 17:00 Morphine Sulfate (morphine) 3 mg Q1H PRN GTB PAIN NOT RELIEVED BY OTHERS Last administered on 09/09/18at 09:45; Admin Dose 3 MG; Start 08/29/18 at 12:00 Lansoprazole (Prevacid) 30 mg DAILY@06 GTB Last administered on 09/15/18at 05:53; Admin Dose 30 MG; Start 08/30/18 at 06:00 Oxycodone HCl (Roxicodone) 5 mg Q4H PRN PO MODERATE PAIN LEVEL 4-6 Last administered on 09/15/18at 06:17; Admin Dose 5 MG; Start 09/01/18 at 10:00 Miscellaneous Information (* Miscellaneous Pharmacy Order) ASPIRIN ORDER WILL ... Q12 XX ; Start 09/05/18 at 10:00 Ipratropium [place] (Atrovent 0.02% (Neb)) 0.5 mg Q6HWA RESP THERAPY HHN Last administered on 09/15/18 19:53; Admin Dose 0.5 MG; Start 09/07/18 at 20:00 Albuterol (Proventil 0.083% (Neb)) 2.5 mg Q6H RESP THERAPY HHN Last adm inistered on 09/15/18 19:53; Admin Dose 2.5 MG; Start 09/07/18 at 20:00 Multivit/Ca Carb/ B Cmplx/FA/Prenat (Shalonda-Jaylen) 1 tab DAILY GTB Last administered on 09/15/18 08:17; Admin Dose 1 TAB; Start 09/08/18 at 09:00 Heparin Sodium (Porcine) (Heparin (5000 Units/1ml)) 5,000 unit BID SC Last administered on 09/15/18 21:59; Admin Dose 5,000 UNIT; Start 09/08/18 at 21:00 Hydralazine HCl (Apresoline) 10 mg Q2 PRN IV ELEVATED SYSTOLIC BP; Start 09/12/18 at 16:30 Carvedilol (Coreg) 50 mg BID PO Last administered on 09/15/18 21:49; Admin Dose 50 MG; Start 09/14/18 at 21:00 Assessment/Plan Assessment/Plan (Daily) IMP: 1. s/p Cardiac arrest 2. s/p [place] 3. Chronic Resp Failure 4. Pneumonia 5. Anemia 6. Renal Failure 7. Anemia RECS: 1. Continue current supportive care. 2. PMV valve as tolerated. 3. TF/Free H20 LA PEARSON MD Sep 15, 2018 22:24
[2018-09-16] VITALS (13 sets, daily range): BP systolic 123–170; BP diastolic 71–93; PULSE 77–97; RESP 17–18
[2018-09-16] MEDS: ALBUTEROL 0.083% (NEB) 2.5 MG/3 ML AMP HHN SCH ×4 (01:21→19:57)
[2018-09-16] MEDS: LANSOPRAZOLE 30 MG CAP GTB SCH (06:06)
[2018-09-16] MEDS: IPRATROPIUM (NEB) 0.5 MG/2.5 ML AMP HHN SCH ×3 (07:54→19:57)
[2018-09-16] MEDS: CLOPIDOGREL 75 MG TAB NGT SCH (08:07)
[2018-09-16] MEDS: ASPIRIN 81 MG TAB NGT SCH (08:07)
[2018-09-16] MEDS: ASCORBIC ACID 500 MG TAB NGT SCH (08:07)
[2018-09-16] MEDS: RIFAXIMIN 200 MG TAB PO SCH ×3 (08:07→21:45)
[2018-09-16] MEDS: ZINC SULFATE 220 MG CAP NGT SCH (08:07)
[2018-09-16] MEDS: SEVELAMER CARBONATE 2.4 GM PKT GTB SCH ×3 (08:07→17:34)
[2018-09-16] MEDS: FOLIC ACID 1 MG TAB NGT SCH (08:07)
[2018-09-16] MEDS: LACTOBACILLUS RHAMNOSUS CAP GTB SCH ×3 (08:07→21:45)
[2018-09-16] MEDS: MULTIVIT/CA CARB/B CMPLX/FA TAB GTB SCH (08:07)
[2018-09-16] MEDS: HEPARIN 5,000 UNIT/1 ML VIAL SC SCH ×2 (08:10→21:50)
--- NOTE | 2018-09-16 08:38 | PN ---
DATE: 09/16/2018 SUBJECTIVE: The patient is stable, no events overnight. OBJECTIVE: VITAL SIGNS: Blood pressure is 152/89, pulse 92, respirations 18, temperature 98.4. HEENT: Head is normocephalic. NECK: Supple. HEART: Regular rate. LUNGS: Show diminished breath sounds at the base. ABDOMEN: Soft, nontender to palpation without rebound or guarding. EXTREMITIES: Negative for clubbing, cyanosis, no edema. DERMATOLOGIC: No rashes. MUSCULOSKELETAL: No joint effusion. NEUROLOGIC: No change in exam. MEDICATIONS: Reviewed. LABORATORY DATA: From 09/16/2018 was reviewed. ASSESSMENT AND PLAN: 1. Nonoliguric acute kidney injury with previously normal baseline creatinine. Etiology of acute ki dney injury is secondary to acute tubular necrosis. The patient's renal function has improved. The patient is status post hemodialysis. Continue to monitor. Continue current treatment plan, supporti ve care, renally dose all medications. 2. Anemia. Continue to monitor hemoglobin and hematocrit levels. Continue Epogen. 3. Mineral bone disorder, monitor calcium and phosphorus levels. 4. Ventilator dependent respiratory failure. Vent settings and ABG was reviewed. Continue to monit or. 5. Coronary artery disease. Continue current treatment plan. The patient is status post PCI. 6. Acute cerebrovascular accident, clinically improving. 7. Dysphagia. Continue tube feeding. 8. Encephalopathy, improved. 9. Status post shock. 10. Status post cardiac arrest. Dictated By: BHUMI REDDY DO NR/NTS Conf#: [id number] DID#: [id number] CC: HARPAL PEDROZA MD; LAUREN GREWAL MD; DANIAL TUCKER MD;*EndCC*
--- NOTE | 2018-09-16 11:12 | CONS ---
Consult Date/Type/Reason Admit Date/Time Aug 04, 2018 at 23:10 Initial Consult Date 08/05/18 Type of Consultation: cv Requesting Provider: HARPAL AGGARWAL MD Date/Time of Note DATE: 09/16/18 TIME: 11:11 Subjective Interventional cardiology follow-up progress note Subjective: Events noted discussed with the staff and tele was reviewed. no V tachycardia or V fibrillation. d/w family /father BP is stable she denies any cp to me now She has less shortness of breath at this point events noted s/p PCI 100% occluded LAD 08/04 S/P PCI LCX/ OM s/p trach 08/22/18 PCI RCA 09/04/18 Objective: General: Obese female no acute distress s/p trach on O2 HEENT: NC/AT. pupils are equal. round. NECK: . no stridor. s/p trach on oxygen CV: RRR. systolic murmur; no gallop or rubs. PULM: no wheezing mild rhonchi. GI: Obese SOFT, NT, ND, no rebound or guarding s/pPEG Extremity: +B/L LE edema. no clubbing. neuro: awake and follows commands Psych: Calm now rectal: deferred vascular L femoral no bleeding or hematoma EKG August 06, 2018 was personally within normal sinus rhythm. T wave inversions anterior and inferior leads ECG 08/07: NSR ST T abn c/w ant/lat ischemia CXR 08/14: Nonspecific patchy bilateral pulmonary opacity, mildly improved on the right. No pneumothorax. Endotracheal tube, nasogastric tube, and right-sided PICC line remain in place. Stable mild cardiomegaly. The osseous structures are remarkable for degenerative enthesopathy of the spine. Chest x-ray done August 06 shows:No evidence for active cardiopulmonary disease. CXR 08/19: Diffuse bilateral reticular nodular infiltrates unchanged. Question bronchopneumonia versus failure. CXR 08/28/18: Allowing for support structures overlying the right base, no significant change. Left mid and bibasilar air space opacities/infiltrates are again present. Lines and tubes are stable ECHO personally reviewed Normal left ventricular cavity size. Normal left ventricular wall thickness. Ejection fraction is visually estimated at 55-65 %. Normal appearance of the mitral valve. Mitral valve is not well visualized. No mitral valve regurgitation is seen. Aortic valve not well visualized. No aortic regurgitation. Normal appearance of the tricuspid valve. Unable to obtain RVSP due to minimal presence of tricuspid regurgitation. No evidence of tricuspid regurgitation. Normal pericardium with no significant pericardial effusion. suboptimal study. Objective Vitals Vital Signs Date Temp Pulse Resp B/P (MAP) Pulse Ox O2 O2 Flow FiO2 Time Delivery Rate 09/16/18 91 08:00 09/16/18 98 5.0 28 07:54 09/16/18 18 Aerosol 07:54 09/16/18 98.4 152/89 07:51 (110) Intake and Output 09/15/18 09/15/18 09/16/18 1515:00 23:00 07:00 IntakeIntake Total 560 ml 500 ml 452 ml OutputOutput Total 150 ml BalanceBalance 410 ml 500 ml 452 ml Results/Medications Result Diagram: 09/16/18 0558 09/16/18 0558 Results 24 hrs Laboratory Tests Test 09/16/18 05:58 White Blood Count 7.6 Red Blood Count 3.38 L Hemoglobin 9.8 L Hematocrit 32.5 L Mean Corpuscular Volume 96.2 Mean Corpuscular Hemoglobin 29.0 Mean Corpuscular Hemoglobin Concent 30.2 L Red Cell Distribution Width 17.1 H Platelet Count 179 Mean Platelet Volume 12.3 H Immature Granulocytes % 0.500 H Neutrophils % 48.2 Lymphocytes % 37.0 Monocytes % 9.8 Eosinophils % 3.7 Basophils % 0.8 Nucleated Red Blood Cells % 0.0 Immature Granulocytes # 0.040 H Neutrophils # 3.7 Lymphocytes # 2.8 Monocytes # 0.8 Eosinophils # 0.3 Basophils # 0.1 Nucleated Red Blood Cells # 0.0 Sodium Level 139 Potassium Level 3.8 Chloride Level 101 Carbon Dioxide Level 29 Anion Gap 9 Blood Urea Nitrogen 57 H Creatinine 1.41 H Est Glomerular Filtrat Rate mL/min 42 L Glucose Level 113 Calcium Level 10.1 Phosphorus Level 6.4 H Magnesium Level 2.0 Medications Current Medications Atorvastatin Calcium (Lipitor) 80 mg DAILY@21 PO Last administered on 09/15/18at 21:48; Admin Dose 80 MG; Start 08/05/18 at 21:00 Miscellaneous Information 1 ea NOTE XX ; Start 08/05/18 at 09:00 Acetaminophen (Tylenol Liquid) 650 mg Q4H PRN PO ELEVATED TEMPERATURE Last administered on 09/01/18 00:29; Admin Dose 650 MG; Start 08/05/18 at 11:00 Aspirin (Aspirin) 81 mg DAILY NGT Last administered on 09/16/18 08:07; Admin Dose 81 MG; Start 08/06/18 at 09:00 Zinc Sulfate (Zinc Sulfate) 220 mg DAILY NGT Last administered on 09/16/18 08:07; Admin Dose 220 MG; Start 08/09/18 at 09:00 Folic Acid (Folic Acid) 1 mg DAILY NGT Last administered on 09/16/18 08:07; Admin Dose 1 MG; Start 08/09/18 at 09:00 Ascorbic Acid (Vitamin C) 500 mg DAILY NGT Last administered on 09/16/18 08:07; Admin Dose 500 MG; Start 08/09/18 at 09:00 IV Flush (NS 10 ml) 10 ml PRN PRN IV IV PROTOCOL; Start 08/11/18 at 16:30 Heparin Sodium (Porcine) (Heparin (1000 Units/ml)) 3,000 unit PRN PRN CATHETER Dialysis Last administered on 09/09/18 22:35; Admin Dose 3,000 UNIT; Start 08/12/18 at 14:30 Labetalol HCl (Labetalol) 10 mg Q4H PRN IV ELEVATED SYSTOLIC BP > 170 Last administered on 08/20/18 16:54; Admin Dose 10 MG; Start 08/14/18 at 19:00 Clopidogrel Bisulfate (plaVIX) 75 mg DAILY NGT Last administered on 09/16/18 08:07; Admin Dose 75 MG; Start 08/18/18 at 13:30 Rifaximin (Xifaxan) 200 mg TID PO Last administered on 09/16/18 08:07; Admin Dose 200 MG; Start 08/19/18 at 13:00 Sevelamer Carbonate (Renvela) 2.4 gm WITH MEALS GTB Last administered on 09/16/18 08:07; Admin Dose 2.4 GM; Start 08/23/18 at 11:30 Ondansetron HCl (Zofran Inj) 4 mg Q4H PRN IV NAUSEA AND/OR VOMITING Last administered on 09/09/18 11:21; Admin Dose 4 MG; Start 08/23/18 at 14:30 Lactobacillus Acidophilus/ Rhamnosus (Culturelle) 1 cap TID GTB Last administered on 09/16/18 08:07; Admin Dose 1 CAP; Start 08/24/18 at 13:00 Albumin Human 100 ml @ 100 mls/hr WITH DIALYSIS PRN IV SBP <90 DURING DIALYSIS; Start 08/26/18 at 12:00 Sodium Chloride (NS) -To prime the dialy... DIRECTED FOR HD PRN IV HD; Start 08/26/18 at 12:00 Nitroglycerin (Nitroglycerin 2% Oint) 0.5 inch Q6 PRN TD CHEST PAIN; Start 08/27/18 at 00:30 Lorazepam (Ativan) 1 mg Q4H PRN IV ANXIETY Last administered on 08/27/18 04:14; Admin Dose 1 MG; Start 08/27/18 at 04:30 Eye Lubricant (Artificial Tears Oph) 2 drop Q2H PRN BOTH EYES dry eyes; Start 08/28/18 at 01:30 Epoetin Jarrell-epbx (RETACRIT(esrd)) 10,000 unit MoWeFr@1700 SC Last administered on 09/14/18at 17:35; Admin Dose 10,000 UNIT; Start 08/29/18 at 17:00 Morphine Sulfate (morphine) 3 mg Q1H PRN GTB PAIN NOT RELIEVED BY OTHERS Last administered on 09/09/18at 09:45; Admin Dose 3 MG; Start 08/29/18 at 12:00 Lansoprazole (Prevacid) 30 mg DAILY@06 GTB Last administered on 09/16/18at 06:06; Admin Dose 30 MG; Start 08/30/18 at 06:00 Oxycodone HCl (Roxicodone) 5 mg Q4H PRN PO MODERATE PAIN LEVEL 4-6 Last administered on 09/15/18 06:17; Admin Dose 5 MG; Start 09/01/18 at 10:00 Miscellaneous Information (* Miscellaneous Pharmacy Order) ASPIRIN ORDER WILL ... Q12 XX ; Start 09/05/18 at 10:00 Ipratropium [place] (Atrovent 0.02% (Neb)) 0.5 mg Q6HWA RESP THERAPY HHN Last administered on 09/16/18 07:54; Admin Dose 0.5 MG; Start 4/19/19 at 20:00 Albuterol (Proventil 0.083% (Neb)) 2.5 mg Q6H RESP THERAPY HHN Last administered on 09/16/18at 07:54; Admin Dose 2.5 MG; Start 09/07/18 at 20:00 Multivit/Ca Carb/ B Cmplx/FA/Prenat (Shalonda-Jaylen) 1 tab DAILY GTB Last administered on 09/16/18 08:07; Admin Dose 1 TAB; Start 09/08/18 at 09:00 Heparin Sodium (Porcine) (Heparin (5000 Units/1ml)) 5,000 unit BID SC Last administered on 09/16/18 08:10; Admin Dose 5,000 UNIT; Start 09/08/18 at 21:00 Hydralazine HCl (Apresoline) 10 mg Q2 PRN IV ELEVATED SYSTOLIC BP; Start 09/12/18 at 16:30 Carvedilol (Coreg) 50 mg BID PO Last administered on 09/16/18 08:08; Admin Dose 50 MG; Start 09/14/18 at 21:00 Assessment/Plan Hospital Course (Demo Recall) 1. s/p V. fib cardiac arrest 2. Acute myocardial infarction 3. Status post emergent PCI of the 100% occluded LAD as well as PTCA of the diagonal and PCI LCX/ OM , sp PCI RCA 09/04 4. Diabetes 5. Respiratory failure status post intubation on the vent 6. Hypertension 7. Renal failure : acute on chronic 8. Likely history of congestive heart failure 9. Dyslipidemia 10. Encephalopathy: Clear anoxic brain injury on hypothermia protocol 11. Morbid obesity 12. Anemia 13. elevated LFT 14. fever, bacteremia pneumonia 15. Malnutrition, anasarca . 16. septic shock and staph aureus bacteremia 17. oropharyngeal bleeding 18. CVA Recommendations: Continue with aspirin/ plavix Antibiotic management as per ID recommendation HD as per renal rec. currently renal fx is improving weaning as tolerated. We will defer to pulmonary team Continue with Coreg 50 bid Transfusion prn given her severe anemia and NM/ VF tele monitoring DVT prophylaxis Thank you for his referral. We will continue to follow along with you LOIS JOHNSON MD [facility] LIOS JOHNSON MD Sep 16, 2018 11:12
--- NOTE | 2018-09-16 12:14 | PN ---
Date/Time of Note Date/Time of Note DATE: 09/16/18 TIME: 12:12 Objective Vitals Vital Signs Date Temp Pulse Resp B/P (MAP) Pulse Ox O2 O2 Flow FiO2 Time Delivery Rate 09/16/18 98.8 93 18 153/93 99 11:20 (113) 09/16/18 5.0 28 07:54 09/16/18 Aerosol 07:54 Intake and Output 09/15/18 09/15/18 09/16/18 1515:00 23:00 07:00 IntakeIntake Total 560 ml 500 ml 452 ml OutputOutput Total 150 ml BalanceBalance 410 ml 500 ml 452 ml Results Result Diagram: 09/16/1858 09/16/1858 Medications Medications Current Medications Atorvastatin Calcium (Lipitor) 80 mg DAILY@21 PO Last administered on 09/15/18at 21:48; Admin Dose 80 MG; Start 08/05/18 at 21:00 Miscellaneous Information 1 ea NOTE XX ; Start 08/05/18 at 09:00 Acetaminophen (Tylenol Liquid) 650 mg Q4H PRN PO ELEVATED TEMPERATURE Last adm inistered on 09/01/18at 00:29; Admin Dose 650 MG; Start 08/05/18 at 11:00 Aspirin (Aspirin) 81 mg DAILY NGT Last administered on 09/16/18 08:07; Admin Dose 81 MG; Start 08/06/18 at 09:00 Zinc Sulfate (Zinc Sulfate) 220 mg DAILY NGT Last administered on 09/16/18 08:07; Admin Dose 220 MG; Start 08/09/18 at 09:00 Folic Acid (Folic Acid) 1 mg DAILY NGT Last administered on 09/16/18 08:07; Admin Dose 1 MG; Start 08/09/18 at 09:00 Ascorbic Acid (Vitamin C) 500 mg DAILY NGT Last administered on 09/16/18 08:07; Admin Dose 500 MG; Start 08/09/18 at 09:00 IV Flush (NS 10 ml) 10 ml PRN PRN IV IV PROTOCOL; Start 08/11/18 at 16:30 Heparin Sodium (Porcine) (Heparin (1000 Units/ml)) 3,000 unit PRN PRN CATHETER Dialysis Last administered on 09/09/18at 22:35; Admin Dose 3,000 UNIT; Start 08/12/18 at 14:30 Labetalol HCl (Labetalol) 10 mg Q4H PRN IV ELEVATED SYSTOLIC BP > 170 Last administered on 08/20/18at 16:54; Admin Dose 10 MG; Start 08/14/18 at 19:00 Clopidogrel Bisulfate (plaVIX) 75 mg DAILY NGT Last administered on 09/16/18 08:07; Admin Dose 75 MG; Start 08/18/18 at 13:30 Rifaximin (Xifaxan) 200 mg TID PO Last administered on 09/16/18 08:07; Admin Dose 200 MG; Start 08/19/18 at 13:00 Sevelamer Carbonate (Renvela) 2.4 gm WITH MEALS GTB Last administered on 09/16/18 08:07; Admin Dose 2.4 GM; Start 08/23/18 at 11:30 Ondansetron HCl (Zofran Inj) 4 mg Q4H PRN IV NAUSEA AND/OR VOMITING Last administered on 09/09/18 11:21; Admin Dose 4 MG; Start 08/23/18 at 14:30 Lactobacillus Acidophilus/ Rhamnosus (Culturelle) 1 cap TID GTB Last administered on 09/16/18 08:07; Admin Dose 1 CAP; Start 08/24/18 at 13:00 Albumin Human 100 ml @ 100 mls/hr WITH DIALYSIS PRN IV SBP <90 DURING D IALYSIS; Start 08/26/18 at 12:00 Sodium Chloride (NS) -To prime the dialy... DIRECTED FOR HD PRN IV HD; Start 08/26/18 at 12:00 Nitroglycerin (Nitroglycerin 2% Oint) 0.5 inch Q6 PRN TD CHEST PAIN; Start 08/27/18 at 00:30 Lorazepam (Ativan) 1 mg Q4H PRN IV ANXIETY Last administered on 08/27/18 04:14; Admin Dose 1 MG; Start 08/27/18 at 04:30 Eye Lubricant (Artificial Tears Oph) 2 drop Q2H PRN BOTH EYES dry eyes; Start 08/28/18 at 01:30 Epoetin Jarrell-epbx (RETACRIT(esrd)) 10,000 unit MoWeFr@1700 SC Last administered on 09/14/18at 17:35; Admin Dose 10,000 UNIT; Start 08/29/18 at 17:00 Morphine Sulfate (morphine) 3 mg Q1H PRN GTB PAIN NOT RELIEVED BY OTHERS Last administered on 09/09/18 09:45; Admin Dose 3 MG; Start 08/29/18 at 12:00 Lansoprazole (Prevacid) 30 mg DAILY@06 GTB Last administered on 09/16/18 06:06; Admin Dose 30 MG; Start 08/30/18 at 06:00 Oxycodone HCl (Roxicodone) 5 mg Q4H PRN PO MODERATE PAIN LEVEL 4-6 Last administered on 09/15/18 06:17; Admin Dose 5 MG; Start 09/01/18 at 10:00 Miscellaneous Information (* Miscellaneous Pharmacy Order) ASPIRIN ORDER WILL ... Q12 XX ; Start 09/05/18 at 10:00 Ipratropium [place] (Atrovent 0.02% (Neb)) 0.5 mg Q6HWA RESP THERAPY HHN Last administered on 09/16/18 07:54; Admin Dose 0.5 MG; Start 09/07/18 at 20:00 Albuterol (Proventil 0.083% (Neb)) 2.5 mg Q6H RESP THERAPY HHN Last administered on 09/16/18 07:54; Admin Dose 2.5 MG; Start 09/07/18 at 20:00 Multivit/Ca Carb/ B Cmplx/FA/Prenat (Shalonda-Jaylen) 1 tab DAILY GTB Last administered on 09/16/18 08:07; Admin Dose 1 TAB; Start 09/08/18 at 09:00 Heparin Sodium (Porcine) (Heparin (5000 Units/1ml)) 5,000 unit BID SC Last administered on 09/16/18 08:10; Admin Dose 5,000 UNIT; Start 09/08/18 at 21:00 Hydralazine HCl (Apresoline) 10 mg Q2 PRN IV ELEVATED SYSTOLIC BP; Start 09/12/18 at 16:30 Carvedilol (Coreg) 50 mg BID PO Last administered on 09/16/18 08:08; Admin Dose 50 MG; Start 09/14/18 at 21:00 VTE Prophylaxis Risk score (from Nsg)>0 risk: 7 SCD applied (from Nsg): Yes Lines/Catheters IV Catheter Type: Aguilar in Place: No Assessment/Plan Hospital Course Subjective Patient in good spirits, no complaints of pain Objective Physical exam General: Patient is laying in bed and answers questions appropriately, has trach Mentation: Patient is alert and oriented 4, Head: Normocephalic atraumatic Eyes: EOMI, pupils reactive to light Neck: Supple, nontender, midline Respiratory: Clear to auscultation bilaterally Cardiovascular: regular rate, no obvious murmurs Gastrointestinal: non-tender to palpation, bowel sounds heard. Neurological: Moves all extremities spontaneously Skin: No new skin lesions Assessment/Plan 1. CAD s/p PCI x3- stable - will continue monitoring for any concerning cardiac sx - Cardiology on board and appreciate recommendations. Will need to continue aspirin for life and DAPT for 1 year - s/p emergent Cath 08/05 with successful PTCA and stenting of proximal and mid LAD, PTCA of the large first diagonal and thrombectomy of the LAD - Repeat PCI on 08/07 performed with stenting to LCx - Repeat PCI on 09/04 with stenting ostial/proximal right coronary artery 2. Acute hypoxic respiratory failure- improving - Remains stable off vent. Per pulm with downsize trach once secretions minimize - Speech consulted for trials of PMV and advancing diet. - Pulm on board and appreciate recommendations. -ENT physician saw patient, however could not visualize airway fully, does not recommend removing tracheostomy at this time, will will need to follow-up outpatient for tracheostomy removal eventually. 3. Acute toxic/metabolic encephalopathy- resolved - Patient back to baseline and doing well. - Neurology input appreciated and will reconsult if needed 4. Bilateral CVA - PT/OT on board - Found on MRI, likely thromboembolic secondary to cardiopulmonary arrest per neurology - Continue on aspirin/Plavix and Lipitor 5. Anemia, blood loss and renal disease- stable - Hgb remains stable, transfuse as needed 6. Bilateral Pneumonia- resolved - ID on board and appreciate recommendations. Monitor off antibiotics 7. Septic shock secondary to PNA and bacteremia- resolved - Blood cultures and sputum culture results noted. - ID on board 8. Renal failure now off HD - Nephrology on board and appreciate recommendations. -Appears to be resolving, Devan catheter will be removed per nephrology and patient will be monitored off hemodialysis 9. Diabetes - A1c noted - ISS not needed 10. S/p V-fib cardiac arrest secondary to STEMI - Completed hypothermia protocol 11. Disposition - Will continue current treatment and monitor off HD. CM on board for SNF placement -Speech therapy set okay to start mechanical soft diet, will stop tube feeds. HARPAL PEDROZA Sep 16, 2018 12:14
--- NOTE | 2018-09-16 16:52 | CONS ---
Consult Date/Type/Reason Admit Date/Time Aug 04, 2018 at 23:10 Initial Consult Date 08/05/18 Type of Consultation: Pulm Requesting Provider: HARPAL AGGARWAL MD Date/Time of Note DATE: 09/16/18 TIME: 16:51 Subjective No events overnight Objective Vitals Vital Signs Date Temp Pulse Resp B/P (MAP) Pulse Ox O2 O2 Flow FiO2 Time Delivery Rate 09/16/18 152/81 16:31 (104) 09/16/18 98.0 77 18 100 15:13 09/16/18 5.0 28 14:00 09/16/18 Aerosol 14:00 Intake and Output 09/15/18 09/15/18 09/16/18 1515:00 23:00 07:00 IntakeIntake Total 560 ml 500 ml 452 ml OutputOutput Total 150 ml BalanceBalance 410 ml 500 ml 452 ml Exam HEENT: Neck supple; no JVD; no LAD: + trach CVS: RRR, S1 and S2 CHEST: Coarse BS b/l ABD: Soft, NT, + BS EXT: No c/c/e Results/Medications Result Diagram: 09/16/18 0558 09/16/18 0558 Results 24 hrs Laboratory Tests Test 09/16/18 05:58 White Blood Count 7.6 Red Blood Count 3.38 L Hemoglobin 9.8 L Hematocrit 32.5 L Mean Corpuscular Volume 96.2 Mean Corpuscular Hemoglobin 29.0 Mean Corpuscular Hemoglobin Concent 30.2 L Red Cell Distribution Width 17.1 H Platelet Count 179 Mean Platelet Volume 12.3 H Immature Granulocytes % 0.500 H Neutrophils % 48.2 Lymphocytes % 37.0 Monocytes % 9.8 Eosinophils % 3.7 Basophils % 0.8 Nucleated Red Blood Cells % 0.0 Immature Granulocytes # 0.040 H Neutrophils # 3.7 Lymphocytes # 2.8 Monocytes # 0.8 Eosinophils # 0.3 Basophils # 0.1 Nucleated Red Blood Cells # 0.0 Sodium Level 139 Potassium Level 3.8 Chloride Level 101 Carbon Dioxide Level 29 Anion Gap 9 Blood Urea Nitrogen 57 H Creatinine 1.41 H Est Glomerular Filtrat Rate mL/min 42 L Glucose Level 113 Calcium Level 10.1 Phosphorus Level 6.4 H Magnesium Level 2.0 Medications Current Medications Atorvastatin Calcium (Lipitor) 80 mg DAILY@21 PO Last administered on 09/15/18 21:48; Admin Dose 80 MG; Start 08/05/18 at 21:00 Miscellaneous Information 1 ea NOTE XX ; Start 08/05/18 at 09:00 Acetaminophen (Tylenol Liquid) 650 mg Q4H PRN PO ELEVATED TEMPERATURE Last administered on 09/01/18 00:29; Admin Dose 650 MG; Start 08/05/18 at 11:00 Aspirin (Aspirin) 81 mg DAILY NGT Last administered on 09/16/18 08:07; Admin Dose 81 MG; Start 08/06/18 at 09:00 Zinc Sulfate (Zinc Sulfate) 220 mg DAILY NGT Last administered on 09/16/18 08:07; Admin Dose 220 MG; Start 08/09/18 at 09:00 Folic Acid (Folic Acid) 1 mg DAILY NGT Last administered on 09/16/18 08:07; Admin Dose 1 MG; Start 08/09/18 at 09:00 Ascorbic Acid (Vitamin C) 500 mg DAILY NGT Last administered on 09/16/18 08:07; Admin Dose 500 MG; Start 08/09/18 at 09:00 IV Flush (NS 10 ml) 10 ml PRN PRN IV IV PROTOCOL; Start 08/11/18 at 16:30 Heparin Sodium (Porcine) (Heparin (1000 Units/ml)) 3,000 unit PRN PRN CATHETER Dialysis Last administered on 09/09/18 22:35; Admin Dose 3,000 UNIT; Start 08/12/18 at 14:30 Labetalol HCl (Labetalol) 10 mg Q4H PRN IV ELEVATED SYSTOLIC BP > 170 Last administered on 08/20/18 16:54; Admin Dose 10 MG; Start 08/14/18 at 19:00 Clopidogrel Bisulfate (plaVIX) 75 mg DAILY NGT Last administered on 09/16/18 08:07; Admin Dose 75 MG; Start 08/18/18 at 13:30 Rifaximin (Xifaxan) 200 mg TID PO Last administered on 09/16/18 12:12; Admin Dose 200 MG; Start 08/19/18 at 13:00 Sevelamer Carbonate (Renvela) 2.4 gm WITH MEALS GTB Last administered on 09/16/18 12:12; Admin Dose 2.4 GM; Start 08/23/18 at 11:30 Ondansetron HCl (Zofran Inj) 4 mg Q4H PRN IV NAUSEA AND/OR VOMITING Last administered on 09/09/18at 11:21; Admin Dose 4 MG; Start 08/23/18 at 14:30 Lactobacillus Acidophilus/ Rhamnosus (Culturelle) 1 cap TID GTB Last administered on 09/16/18at 12:12; Admin Dose 1 CAP; Start 08/24/18 at 13:00 Albumin Human 100 ml @ 100 mls/hr WITH DIALYSIS PRN IV SBP <90 DURING DIALYS IS; Start 08/26/18 at 12:00 Sodium Chloride (NS) -To prime the dialy... DIRECTED FOR HD PRN IV HD; Start 08/26/18 at 12:00 Nitroglycerin (Nitroglycerin 2% Oint) 0.5 inch Q6 PRN TD CHEST PAIN; Start 08/27/18 at 00:30 Lorazepam (Ativan) 1 mg Q4H PRN IV ANXIETY Last administered on 08/27/18at 04:14; Admin Dose 1 MG; Start 08/27/18 at 04:30 Eye Lubricant (Artificial Tears Oph) 2 drop Q2H PRN BOTH EYES dry eyes; Start 08/28/18 at 01:30 Epoetin Jarrell-epbx (RETACRIT(esrd)) 10,000 unit MoWeFr@1700 SC Last administered on 09/14/18at 17:35; Admin Dose 10,000 UNIT; Start 08/29/18 at 17:00 Morphine Sulfate (morphine) 3 mg Q1H PRN GTB PAIN NOT RELIEVED BY OTHERS Last administered on 09/09/18at 09:45; Admin Dose 3 MG; Start 08/29/18 at 12:00 Lansoprazole (Prevacid) 30 mg DAILY@06 GTB Last administered on 09/16/18at 06:06; Admin Dose 30 MG; Start 08/30/18 at 06:00 Oxycodone HCl (Roxicodone) 5 mg Q4H PRN PO MODERATE PAIN LEVEL 4-6 Last administered on 09/15/18at 06:17; Admin Dose 5 MG; Start 09/01/18 at 10:00 Miscellaneous Information (* Miscellaneous Pharmacy Order) ASPIRIN ORDER WILL ... Q12 XX ; Start 09/05/18 at 10:00 Ipratropium [place] (Atrovent 0.02% (Neb)) 0.5 mg Q6HWA RESP THERAPY HHN Last administered on 09/16/18 13:58; Admin Dose 0.5 MG; Start 09/07/18 at 20:00 Albuterol (Proventil 0.083% (Neb)) 2.5 mg Q6H RESP THERAPY HHN Last administered on 09/16/18 13:58; Admin Dose 2.5 MG; Start 09/07/18 at 20:00 Multivit/Ca Carb/ B Cmplx/FA/Prenat (Shalonda-Jaylen) 1 tab DAILY GTB Last administered on 09/16/18 08:07; Admin Dose 1 TAB; Start 09/08/18 at 09:00 Heparin Sodium (Porcine) (Heparin (5000 Units/1ml)) 5,000 unit BID SC Last administered on 09/16/18 08:10; Admin Dose 5,000 UNIT; Start 09/08/18 at 21:00 Hydralazine HCl (Apresoline) 10 mg Q2 PRN IV ELEVATED SYSTOLIC BP Last administered on 09/16/18 15:50; Admin Dose 10 MG; Start 09/12/18 at 16:30 Carvedilol (Coreg) 50 mg BID PO Last administered on 09/16/18 08:08; Admin Dose 50 MG; Start 09/14/18 at 21:00 Assessment/Plan Assessment/Plan (Daily) IMP: 1. s/p Cardiac arrest 2. s/p GA 3. Chronic Resp Failure 4. Pneumonia 5. Anemia 6. Renal Failure 7. Anemia RECS: 1. Continue current supportive care. 2. PMV valve as tolerated. 3. TF/Free H20 4. ST eval 5. PT/OT LA Judge MD Sep 16, 2018 16:52
[2018-09-16] MEDS: ATORVASTATIN 80 MG TAB PO SCH (21:46)
[2018-09-17] VITALS (11 sets, daily range): BP systolic 126–165; BP diastolic 77–101; PULSE 75–96; RESP 17–19
[2018-09-17] MEDS: ALBUTEROL 0.083% (NEB) 2.5 MG/3 ML AMP HHN SCH ×4 (01:13→21:49)
[2018-09-17] MEDS: LANSOPRAZOLE 30 MG CAP GTB SCH (06:09)
[2018-09-17] MEDS: CLOPIDOGREL 75 MG TAB NGT SCH (09:03)
[2018-09-17] MEDS: MULTIVIT/CA CARB/B CMPLX/FA TAB GTB SCH (09:03)
[2018-09-17] MEDS: ZINC SULFATE 220 MG CAP NGT SCH (09:03)
[2018-09-17] MEDS: ASCORBIC ACID 500 MG TAB NGT SCH (09:03)
[2018-09-17] MEDS: SEVELAMER CARBONATE 2.4 GM PKT GTB SCH ×3 (09:03→17:01)
[2018-09-17] MEDS: RIFAXIMIN 200 MG TAB PO SCH ×3 (09:03→21:21)
[2018-09-17] MEDS: LACTOBACILLUS RHAMNOSUS CAP GTB SCH ×3 (09:03→21:21)
[2018-09-17] MEDS: FOLIC ACID 1 MG TAB NGT SCH (09:03)
[2018-09-17] MEDS: ASPIRIN 81 MG TAB NGT SCH (09:03)
[2018-09-17] MEDS: HEPARIN 5,000 UNIT/1 ML VIAL SC SCH ×2 (09:06→22:11)
[2018-09-17] MEDS: IPRATROPIUM (NEB) 0.5 MG/2.5 ML AMP HHN SCH ×3 (09:32→21:49)
--- NOTE | 2018-09-17 09:37 | PN ---
DATE: 09/17/2018 SUBJECTIVE: The patient is stable, no events overnight. OBJECTIVE: VITAL SIGNS: Blood pressure is 151/90, pulse 95, respiration 18, temperature 98.1. HEENT: Head is normocephalic. NECK: Supple. HEART: Regular rate. LUNGS: Show diminished sounds at the base. ABDOMEN: Soft, nontender to palpation. No rebound or guarding. EXTREMITIES: Negative for clubbing, cyanosis. Trace edema. DERMATOLOGIC: No rashes. MUSCULOSKELETAL: No joint effusion. NEUROLOGIC: No change in exam. MEDICATIONS: Have been reviewed. LABORATORY DATA: Has been reviewed. ASSESSMENT AND PLAN: 1. Nonoliguric acute kidney injury previously normal baseline creatinine. Etiology of acute kidney injury is secondary to acute tubular necrosis. Renal function is improved. The patient is status po st hemodialysis. Continue to monitor. 2. Anemia. Continue to monitor hemoglobin and hematocrit levels. Will give Epogen as needed. 3. Mineral bone disorder. The patient remains hyperphosphatemic despite improvement of renal functi on. We will continue phosphate binders. Will discuss with dietary to possibly adjust tube feeding. 4. Chronic respiratory failure status post trach. The patient is currently stable on trach mask. C ontinue to monitor. 5. Coronary artery disease status post percutaneous coronary intervention. Continue medical managem ent. 6. Acute cardiovascular accident, improving. 7. Dysphagia. Continue tube feeding. 8. Encephalopathy, improved. 9. Status post shock. 10. Status post cardiac arrest. Dictated By: BHUMI REDDY DO NR/NTS Conf#: [id number] DID#: [id number] CC: DANIAL TUCKER MD;*EndCC*
--- NOTE | 2018-09-17 10:32 | CONS ---
Assessment/Plan Assessment/Plan Assessment/Plan (Daily) Assessment and recommendations; 1. Status post cardiac arrest, status post tracheostomy currently maintained on T-piece with excellent overall clinical status. 2. Status post treatment for pneumonia. 3. Chronic renal failure, on hemodialysis. 4. Status post coronary intervention. 5. CVA per MRI of the brain however patient not exhibiting any clinical neurological deficit. Continue current supportive care. PMV trials as tolerated. Consider transfer to rehab center. Consultation Date/Type/Reason Admit Date/Time Aug 04, 2018 at 23:10 Initial Consult Date 08/17/18 Type of Consult Pulmonary/critical care Requesting Provider: HARPAL AGGARWAL MD Date/Time of Note DATE: 09/17/18 TIME: 10:28 24 HR Interval Summary Free Text/Dictation Patient's condition is stable. Remains completely awake and alert. Patient still having difficulty handling Passy-Gunnar valve. General exam; young lady, awake alert, currently in no distress. On T-piece via tracheostomy. Exam/Review of Systems Exam Vitals Vital Signs Date Temp Pulse Resp B/P (MAP) Pulse Ox O2 O2 Flow FiO2 Time Delivery Rate 09/17/18 98 5.0 28 09:37 09/17/18 90 20 Aerosol 09:36 T Tube 09/17/18 98.1 151/90 07:50 (110) Intake and Output 09/16/18 09/16/18 09/17/18 1515:00 23:00 07:00 IntakeIntake Total 200 ml 450 ml OutputOutput Total 700 ml BalanceBalance 200 ml -250 ml Exam H ENT exam; supple neck, no JVD. No lymphadenopathy. Midline trachea. No thyromegaly. Tracheostomy in place. Attached to T-piece. Patient has good dentition. No neck masses. Chest exam; clear to auscultation. S1-S2 audible, no murmurs. Regular rhythm. Abdomen exam; soft, nontender. No organomegaly. G-tube in place. Bowel sounds audible. Extremity exam; no peripheral edema or clubbing. 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 Results Result Diagram: 09/17/18 0608 09/17/18 0608 Results 24hrs Laboratory Tests Test 09/17/18 06:08 White Blood Count 6.4 Red Blood Count 3.30 L Hemoglobin 9.6 L Hematocrit 31.8 L Mean Corpuscular Volume 96.4 Mean Corpuscular Hemoglobin 29.1 Mean Corpuscular Hemoglobin Concent 30.2 L Red Cell Distribution Width 17.2 H Platelet Count 178 Mean Platelet Volume 12.0 H Immature Granulocytes % 0.600 H Neutrophils % 44.6 Lymphocytes % 40.5 Monocytes % 8.9 Eosinophils % 4.3 Basophils % 1.1 Nucleated Red Blood Cells % 0.0 Immature Granulocytes # 0.040 H Neutrophils # 2.9 Lymphocytes # 2.6 Monocytes # 0.6 Eosinophils # 0.3 Basophils # 0.1 Nucleated Red Blood Cells # 0.0 Sodium Level 140 Potassium Level 3.7 Chloride Level 101 Carbon Dioxide Level 28 Anion Gap 11 Blood Urea Nitrogen 51 H Creatinine 1.28 H Est Glomerular Filtrat Rate mL/min 46 L Glucose Level 91 Calcium Level 9.9 Phosphorus Level 7.1 H Magnesium Level 1.8 Medications Medication Current Medications Atorvastatin Calcium (Lipitor) 80 mg DAILY@21 PO Last administered on 09/16/18 21:46; Admin Dose 80 MG; Start 08/05/18 at 21:00 Miscellaneous Information 1 ea NOTE XX ; Start 08/05/18 at 09:00 Acetaminophen (Tylenol Liquid) 650 mg Q4H PRN PO ELEVATED TEMPERATURE Last administered on 09/01/18 00:29; Admin Dose 650 MG; Start 08/05/18 at 11:00 Aspirin (Aspirin) 81 mg DAILY NGT Last administered on 09/17/18 09:03; Admin Dose 81 MG; Start 08/06/18 at 09:00 Zinc Sulfate (Zinc Sulfate) 220 mg DAILY NGT Last administered on 09/17/18 09:03; Admin Dose 220 MG; Start 08/09/18 at 09:00 Folic Acid (Folic Acid) 1 mg DAILY NGT Last administered on 09/17/18 09:03; Admin Dose 1 MG; Start 08/09/18 at 09:00 Ascorbic Acid (Vitamin C) 500 mg DAILY NGT Last administered on 09/17/18 09:03; Admin Dose 500 MG; Start 08/09/18 at 09:00 IV Flush (NS 10 ml) 10 ml PRN PRN IV IV PROTOCOL; Start 08/11/18 at 16:30 Heparin Sodium (Porcine) (Heparin (1000 Units/ml)) 3,000 unit PRN PRN CATHETER Dialysis Last administered on 09/09/18 22:35; Admin Dose 3,000 UNIT; Start 08/12/18 at 14:30 Labetalol HCl (Labetalol) 10 mg Q4H PRN IV ELEVATED SYSTOLIC BP > 170 Last administered on 08/20/18 16:54; Admin Dose 10 MG; Start 08/14/18 at 19:00 Clopidogrel Bisulfate (plaVIX) 75 mg DAILY NGT Last administered on 09/17/18 09:03; Admin Dose 75 MG; Start 08/18/18 at 13:30 Rifaximin (Xifaxan) 200 mg TID PO Last administered on 09/17/18 09:03; Admin Dose 200 MG; Start 08/19/18 at 13:00 Sevelamer Carbonate (Renvela) 2.4 gm WITH MEALS GTB Last administered on 09/17/18 09:03; Admin Dose 2.4 GM; Start 08/23/18 at 11:30 Ondansetron HCl (Zofran Inj) 4 mg Q4H PRN IV NAUSEA AND/OR VOMITING Last administered on 09/09/18 11:21; Admin Dose 4 MG; Start 08/23/18 at 14:30 Lactobacillus Acidophilus/ Rhamnosus (Culturelle) 1 cap TID GTB Last administered on 09/17/18 09:03; Admin Dose 1 CAP; Start 08/24/18 at 13:00 Albumin Human 100 ml @ 100 mls/hr WITH DIALYSIS PRN IV SBP <90 DURING DIALYSIS; Start 08/26/18 at 12:00 Sodium Chloride (NS) -To prime the dialy... DIRECTED FOR HD PRN IV HD; Start 08/26/18 at 12:00 Nitroglycerin (Nitroglycerin 2% Oint) 0.5 inch Q6 PRN TD CHEST PAIN; Start 08/27/18 at 00:30 Lorazepam (Ativan) 1 mg Q4H PRN IV ANXIETY Last administered on 08/27/18 04:14; Admin Dose 1 MG; Start 08/27/18 at 04:30 Eye Lubricant (Artificial Tears Oph) 2 drop Q2H PRN BOTH EYES dry eyes; Start 08/28/18 at 01:30 Epoetin Jarrell-epbx (RETACRIT(esrd)) 10,000 unit MoWeFr@1700 SC Last administered on 09/14/18 17:35; Admin Dose 10,000 UNIT; Start 08/29/18 at 17:00 Morphine Sulfate (morphine) 3 mg Q1H PRN GTB PAIN NOT RELIEVED BY OTHERS Last administered on 09/09/18 09:45; Admin Dose 3 MG; Start 08/29/18 at 12:00 Lansoprazole (Prevacid) 30 mg DAILY@06 GTB Last administered on 09/17/18 06:09; Admin Dose 30 MG; Start 08/30/18 at 06:00 Oxycodone HCl (Roxicodone) 5 mg Q4H PRN PO MODERATE PAIN LEVEL 4-6 Last administered on 09/15/18 06:17; Admin Dose 5 MG; Start 09/01/18 at 10:00 Miscellaneous Information (* Miscellaneous Pharmacy Order) ASPIRIN ORDER WILL ... Q12 XX ; Start 09/05/18 at 10:00 Ipratropium [place] (Atrovent 0.02% (Neb)) 0.5 mg Q6HWA RESP THERAPY HHN Last administered on 09/17/18 09:32; Admin Dose 0.5 MG; Start 09/07/18 at 20:00 Albuterol (Proventil 0.083% (Neb)) 2.5 mg Q6H RESP THERAPY HHN Last administered on 09/17/18 09:33; Admin Dose 2.5 MG; Start 09/07/18 at 20:00 Multivit/Ca Carb/ B Cmplx/FA/Prenat (Shalonda-Jaylen) 1 tab DAILY GTB Last administered on 09/17/18 09:03; Admin Dose 1 TAB; Start 09/08/18 at 09:00 Heparin Sodium (Porcine) (Heparin (5000 Units/1ml)) 5,000 unit BID SC Last administered on 09/17/18 09:06; Admin Dose 5,000 UNIT; Start 09/08/18 at 21:00 Hydralazine HCl (Apresoline) 10 mg Q2 PRN IV ELEVATED SYSTOLIC BP Last administered on 09/16/18 15:50; Admin Dose 10 MG; Start 09/12/18 at 16:30 Carvedilol (Coreg) 50 mg BID PO Last administered on 4/29/19at 09:04; Admin Dose 50 MG; Start 09/14/18 at 21:00 MARIAA KINSEY Sep 17, 2018 10:32
--- NOTE | 2018-09-17 10:55 | PN ---
Date/Time of Note Date/Time of Note DATE: 09/17/18 TIME: 10:55 Assessment/Plan VTE Prophylaxis Risk score (from Ns)>0 risk: 2 SCD applied (from Ns): Yes Pharmacological prophylaxis: other Lines/Catheters IV Catheter Type (from Nrs): PICC Line Central line still needed: Yes Urinary Cath still in place: No Assessment/Plan Assessment/Plan 1. CAD s/p PCI x3- stable - continue current care - Cardiology recommendations appreciated. Will need to continue aspirin for life and DAPT for 1 year - s/p emergent Cath 08/05 with successful PTCA and stenting of proximal and mid LAD, PTCA of the large first diagonal and thrombectomy of the LAD - Repeat PCI on 08/07 performed with stenting to LCx - Repeat PCI on 09/04 with stenting ostial/proximal right coronary artery 2. Acute hypoxic respiratory failure- improving - Remains stable off vent - Pulm on board and appreciate recommendations. - ENT physician saw patient, however could not visualize airway fully, does not recommend removing tracheostomy at this time, will will need to follow-up outpatient for tracheostomy removal eventually. 3. Acute toxic/metabolic encephalopathy- resolved - Patient back to baseline and doing well. - Neurology input appreciated and will reconsult if needed 4. Bilateral CVA - PT/OT on board - Found on MRI, likely thromboembolic secondary to cardiopulmonary arrest per neurology - Continue on aspirin/Plavix and Lipitor 5. Anemia, blood loss and renal disease- stable - Hgb remains stable, transfuse as needed 6. Bilateral Pneumonia- resolved - ID on board and appreciate recommendations. Monitor off antibiotics 7. Septic shock secondary to PNA and bacteremia- resolved - Blood cultures and sputum culture results noted. - ID on board 8. Renal failure now off HD - Nephrology on board and appreciate recommendations. Cr continues to improve off HD 9. Diabetes - A1c noted - ISS not needed 10. S/p V-fib cardiac arrest secondary to STEMI - Completed hypothermia protocol 11. Disposition - on board for SNF placement Result Diagram: 09/17/18 0608 09/17/18 0608 Results 24hrs Laboratory Tests Test 09/17/18 06:08 White Blood Count 6.4 Red Blood Count 3.30 L Hemoglobin 9.6 L Hematocrit 31.8 L Mean Corpuscular Volume 96.4 Mean Corpuscular Hemoglobin 29.1 Mean Corpuscular Hemoglobin Concent 30.2 L Red Cell Distribution Width 17.2 H Platelet Count 178 Mean Platelet Volume 12.0 H Immature Granulocytes % 0.600 H Neutrophils % 44.6 Lymphocytes % 40.5 Monocytes % 8.9 Eosinophils % 4.3 Basophils % 1.1 Nucleated Red Blood Cells % 0.0 Immature Granulocytes # 0.040 H Neutrophils # 2.9 Lymphocytes # 2.6 Monocytes # 0.6 Eosinophils # 0.3 Basophils # 0.1 Nucleated Red Blood Cells # 0.0 Sodium Level 140 Potassium Level 3.7 Chloride Level 101 Carbon Dioxide Level 28 Anion Gap 11 Blood Urea Nitrogen 51 H Creatinine 1.28 H Est Glomerular Filtrat Rate mL/min 46 L Glucose Level 91 Calcium Level 9.9 Phosphorus Level 7.1 H Magnesium Level 1.8 Subjective 24 Hr Interval Summary Free Text/Dictation Patient doing well and denies any acute issues. Tolerating current diet. Exam/Review of Systems Exam Vitals Vital Signs Date Temp Pulse Resp B/P (MAP) Pulse Ox O2 O2 Flow FiO2 Time Delivery Rate 09/17/18 98 5.0 28 09:37 09/17/18 90 20 Aerosol 09:36 T Tube 09/17/18 98.1 151/90 07:50 (110) Intake and Output 09/16/18 09/16/18 09/17/18 1515:00 23:00 07:00 IntakeIntake Total 200 ml 450 ml OutputOutput Total 700 ml BalanceBalance 200 ml -250 ml Exam General: Patient is laying in bed and answers questions appropriately Neck: Supple, nontender, midline, trach in place Respiratory: Clear to auscultation bilaterally. no wheezing Cardiovascular: regular rate and rhythm, no obvious murmurs Gastrointestinal: soft, non-tender to palpation, bowel sounds heard. Neurological: Moves all extremities spontaneously Skin: No new skin lesions Results Results 24hrs Laboratory Tests Test 09/17/18 06:08 White Blood Count 6.4 Red Blood Count 3.30 L Hemoglobin 9.6 L Hematocrit 31.8 L Mean Corpuscular Volume 96.4 Mean Corpuscular Hemoglobin 29.1 Mean Corpuscular Hemoglobin Concent 30.2 L Red Cell Distribution Width 17.2 H Platelet Count 178 Mean Platelet Volume 12.0 H Immature Granulocytes % 0.600 H Neutrophils % 44.6 Lymphocytes % 40.5 Monocytes % 8.9 Eosinophils % 4.3 Basophils % 1.1 Nucleated Red Blood Cells % 0.0 Immature Granulocytes # 0.040 H Neutrophils # 2.9 Lymphocytes # 2.6 Monocytes # 0.6 Eosinophils # 0.3 Basophils # 0.1 Nucleated Red Blood Cells # 0.0 Sodium Level 140 Potassium Level 3.7 Chloride Level 101 Carbon Dioxide Level 28 Anion Gap 11 Blood Urea Nitrogen 51 H Creatinine 1.28 H Est Glomerular Filtrat Rate mL/min 46 L Glucose Level 91 Calcium Level 9.9 Phosphorus Level 7.1 H Magnesium Level 1.8 Medications Medication Current Medications Atorvastatin Calcium (Lipitor) 80 mg DAILY@21 PO Last administered on 09/16/18 21:46; Admin Dose 80 MG; Start 08/05/18 at 21:00 Miscellaneous Information 1 ea NOTE XX ; Start 08/05/18 at 09:00 Acetaminophen (Tylenol Liquid) 650 mg Q4H PRN PO ELEVATED TEMPERATURE Last administered on 09/01/18 00:29; Admin Dose 650 MG; Start 08/05/18 at 11:00 Aspirin (Aspirin) 81 mg DAILY NGT Last administered on 09/17/18 09:03; Admin Dose 81 MG; Start 08/06/18 at 09:00 Zinc Sulfate (Zinc Sulfate) 220 mg DAILY NGT Last administered on 09/17/18 09:03; Admin Dose 220 MG; Start 08/09/18 at 09:00 Folic Acid (Folic Acid) 1 mg DAILY NGT Last administered on 09/17/18 09:03; Admin Dose 1 MG; Start 08/09/18 at 09:00 Ascorbic Acid (Vitamin C) 500 mg DAILY NGT Last administered on 09/17/18 09:03; Admin Dose 500 MG; Start 08/09/18 at 09:00 IV Flush (NS 10 ml) 10 ml PRN PRN IV IV PROTOCOL; Start 08/11/18 at 16:30 Heparin Sodium (Porcine) (Heparin (1000 Units/ml)) 3,000 unit PRN PRN CATHETER Dialysis Last administered on 09/09/18 22:35; Admin Dose 3,000 UNIT; Start 08/12/18 at 14:30 Labetalol HCl (Labetalol) 10 mg Q4H PRN IV ELEVATED SYSTOLIC BP > 170 Last a dministered on 08/20/18 16:54; Admin Dose 10 MG; Start 08/14/18 at 19:00 Clopidogrel Bisulfate (plaVIX) 75 mg DAILY NGT Last administered on 09/17/18 09:03; Admin Dose 75 MG; Start 08/18/18 at 13:30 Rifaximin (Xifaxan) 200 mg TID PO Last administered on 09/17/18 09:03; Admin Dose 200 MG; Start 08/19/18 at 13:00 Sevelamer Carbonate (Renvela) 2.4 gm WITH MEALS GTB Last administered on 09/17/18 09:03; Admin Dose 2.4 GM; Start 08/23/18 at 11:30 Ondansetron HCl (Zofran Inj) 4 mg Q4H PRN IV NAUSEA AND/OR VOMITING Last administered on 09/09/18 11:21; Admin Dose 4 MG; Start 08/23/18 at 14:30 Lactobacillus Acidophilus/ Rhamnosus (Culturelle) 1 cap TID GTB Last administered on 09/17/18 09:03; Admin Dose 1 CAP; Start 08/24/18 at 13:00 Albumin Human 100 ml @ 100 mls/hr WITH DIALYSIS PRN IV SBP <90 DURING DIALYSIS; Start 08/26/18 at 12:00 Sodium Chloride (NS) -To prime the dialy... DIRECTED FOR HD PRN IV HD; Start 08/26/18 at 12:00 Nitroglycerin (Nitroglycerin 2% Oint) 0.5 inch Q6 PRN TD CHEST PAIN; Start 08/27/18 at 00:30 Lorazepam (Ativan) 1 mg Q4H PRN IV ANXIETY Last administered on 08/27/18at 04:14; Admin Dose 1 MG; Start 08/27/18 at 04:30 Eye Lubricant (Artificial Tears Oph) 2 drop Q2H PRN BOTH EYES dry eyes; Start 08/28/18 at 01:30 Epoetin Jarrell-epbx (RETACRIT(esrd)) 10,000 unit MoWeFr@1700 SC Last administered on 09/14/18 17:35; Admin Dose 10,000 UNIT; Start 08/29/18 at 17:00 Morphine Sulfate (morphine) 3 mg Q1H PRN GTB PAIN NOT RELIEVED BY OTHERS Last administered on 09/09/18 09:45; Admin Dose 3 MG; Start 08/29/18 at 12:00 Lansoprazole (Prevacid) 30 mg DAILY@06 GTB Last administered on 09/17/18 06:09; Admin Dose 30 MG; Start 08/30/18 at 06:00 Oxycodone HCl (Roxicodone) 5 mg Q4H PRN PO MODERATE PAIN LEVEL 4-6 Last administered on 09/15/18 06:17; Admin Dose 5 MG; Start 09/01/18 at 10:00 Miscellaneous Information (* Miscellaneous Pharmacy Order) ASPIRIN ORDER WILL ... Q12 XX ; Start 09/05/18 at 10:00 Ipratropium [place] (Atrovent 0.02% (Neb)) 0.5 mg Q6HWA RESP THERAPY HHN Last administered on 09/17/18 09:32; Admin Dose 0.5 MG; Start 09/07/18 at 20:00 Albuterol (Proventil 0.083% (Neb)) 2.5 mg Q6H RESP THERAPY HHN Last administered on 09/17/18 09:33; Admin Dose 2.5 MG; Start 09/07/18 at 20:00 Multivit/Ca Carb/ B Cmplx/FA/Prenat (Shalonda-Jaylen) 1 tab DAILY GTB Last administered on 09/17/18 09:03; Admin Dose 1 TAB; Start 09/08/18 at 09:00 Heparin Sodium (Porcine) (Heparin (5000 Units/1ml)) 5,000 unit BID SC Last administered on 09/17/18 09:06; Admin Dose 5,000 UNIT; Start 09/08/18 at 21:00 Hydralazine HCl (Apresoline) 10 mg Q2 PRN IV ELEVATED SYSTOLIC BP Last administered on 09/16/18 15:50; Admin Dose 10 MG; Start 09/12/18 at 16:30 Carvedilol (Coreg) 50 mg BID PO Last administered on 09/17/18 09:04; Admin Dose 50 MG; Start 09/14/18 at 21:00 THOMAS RILEY MD Sep 17, 2018 10:55
[2018-09-17] MEDS: EPOETIN ALFA-EPBX (ESRD) 10,000 UNIT/ML VIAL SC SCH (17:03)
--- NOTE | 2018-09-17 17:45 | CONS ---
Consult Date/Type/Reason Admit Date/Time Aug 04, 2018 at 23:10 Initial Consult Date 08/05/18 Type of Consultation: cv Requesting Provider: HARPAL AGGARWAL MD Date/Time of Note DATE: 09/17/18 TIME: 17:43 Subjective Interventional cardiology follow-up progress note Subjective: Events noted discussed with the staff and tele was reviewed. no V tachycardia or V fibrillation. d/w family /father BP is stable she denies any cp to me now She has less shortness of breath at this point events noted s/p PCI 100% occluded LAD 08/04 S/P PCI LCX/ OM s/p trach 08/22/18 PCI RCA 09/04/18 Objective: General: Obese female no acute distress s/p trach on O2 HEENT: NC/AT. pupils are equal. round. NECK: . no stridor. s/p trach on oxygen CV: RRR. systolic murmur; no gallop or rubs. PULM: no wheezing mild rhonchi. GI: Obese SOFT, NT, ND, no rebound or guarding s/pPEG Extremity: trace B/L LE edema. no clubbing. neuro: awake and follows commands Psych: Calm now rectal: deferred EKG August 06, 2018 was personally within normal sinus rhythm. T wave inversions anterior and inferior leads ECG 08/07: NSR ST T abn c/w ant/lat ischemia CXR 08/14: Nonspecific patchy bilateral pulmonary opacity, mildly improved on the right. No pneumothorax. Endotracheal tube, nasogastric tube, and right-sided PICC line remain in place. Stable mild cardiomegaly. The osseous structures are remarkable for degenerative enthesopathy of the spine. Chest x-ray done August 06 shows:No evidence for active cardiopulmonary disease. CXR 08/19: Diffuse bilateral reticular nodular infiltrates unchanged. Question bronchopneumonia versus failure. CXR 08/28/18: Allowing for support structures overlying the right base, no significant change. Left mid and bibasilar air space opacities/infiltrates are again present. Lines and tubes are stable ECHO personally reviewed Normal left ventricular cavity size. Normal left ventricular wall thickness. Ejection fraction is visually estimated at 55-65 %. Normal appearance of the mitral valve. Mitral valve is not well visualized. No mitral valve regurgitation is seen. Aortic valve not well visualized. No aortic regurgitation. Normal appearance of the tricuspid valve. Unable to obtain RVSP due to minimal presence of tricuspid regurgitation. No evidence of tricuspid regurgitation. Normal pericardium with no significant pericardial effusion. suboptimal study. Objective Vitals Vital Signs Date Temp Pulse Resp B/P (MAP) Pulse Ox O2 O2 Flow FiO2 Time Delivery Rate 09/17/18 84 16:29 09/17/18 97.8 19 161/87 100 15:58 (111) 09/17/18 5.0 14:37 09/17/18 Aerosol 14:36 T Tube 09/17/18 28 09:37 Intake and Output 09/16/18 09/16/18 09/17/18 1515:00 23:00 07:00 IntakeIntake Total 200 ml 450 ml OutputOutput Total 700 ml BalanceBalance 200 ml -250 ml Results/Medications Result Diagram: 09/17/18 0608 09/17/18 0608 Results 24 hrs Laboratory Tests Test 09/17/18 06:08 White Blood Count 6.4 Red Blood Count 3.30 L Hemoglobin 9.6 L Hematocrit 31.8 L Mean Corpuscular Volume 96.4 Mean Corpuscular Hemoglobin 29.1 Mean Corpuscular Hemoglobin Concent 30.2 L Red Cell Distribution Width 17.2 H Platelet Count 178 Mean Platelet Volume 12.0 H Immature Granulocytes % 0.600 H Neutrophils % 44.6 Lymphocytes % 40.5 Monocytes % 8.9 Eosinophils % 4.3 Basophils % 1.1 Nucleated Red Blood Cells % 0.0 Immature Granulocytes # 0.040 H Neutrophils # 2.9 Lymphocytes # 2.6 Monocytes # 0.6 Eosinophils # 0.3 Basophils # 0.1 Nucleated Red Blood Cells # 0.0 Sodium Level 140 Potassium Level 3.7 Chloride Level 101 Carbon Dioxide Level 28 Anion Gap 11 Blood Urea Nitrogen 51 H Creatinine 1.28 H Est Glomerular Filtrat Rate mL/min 46 L Glucose Level 91 Calcium Level 9.9 Phosphorus Level 7.1 H Magnesium Level 1.8 Medications Current Medications Atorvastatin Calcium (Lipitor) 80 mg DAILY@21 PO Last administered on 09/16/18at 21:46; Admin Dose 80 MG; Start 08/05/18 at 21:00 Miscellaneous Information 1 ea NOTE XX ; Start 08/05/18 at 09:00 Acetaminophen (Tylenol Liquid) 650 mg Q4H PRN PO ELEVATED TEMPERATURE Last administered on 09/01/18 00:29; Admin Dose 650 MG; Start 08/05/18 at 11:00 Aspirin (Aspirin) 81 mg DAILY NGT Last administered on 09/17/18 09:03; Admin Dose 81 MG; Start 08/06/18 at 09:00 Zinc Sulfate (Zinc Sulfate) 220 mg DAILY NGT Last administered on 09/17/18 09:03; Admin Dose 220 MG; Start 08/09/18 at 09:00 Folic Acid (Folic Acid) 1 mg DAILY NGT Last administered on 09/17/18 09:03; Admin Dose 1 MG; Start 08/09/18 at 09:00 Ascorbic Acid (Vitamin C) 500 mg DAILY NGT Last administered on 09/17/18 09:03; Admin Dose 500 MG; Start 08/09/18 at 09:00 IV Flush (NS 10 ml) 10 ml PRN PRN IV IV PROTOCOL; Start 08/11/18 at 16:30 Heparin Sodium (Porcine) (Heparin (1000 Units/ml)) 3,000 unit PRN PRN CATHETER Dialysis Last administered on 09/09/18 22:35; Admin Dose 3,000 UNIT; Start 08/12/18 at 14:30 Labetalol HCl (Labetalol) 10 mg Q4H PRN IV ELEVATED SYSTOLIC BP > 170 Last administered on 08/20/18 16:54; Admin Dose 10 MG; Start 08/14/18 at 19:00 Clopidogrel Bisulfate (plaVIX) 75 mg DAILY NGT Last administered on 09/17/18 09:03; Admin Dose 75 MG; Start 08/18/18 at 13:30 Rifaximin (Xifaxan) 200 mg TID PO Last administered on 09/17/18 12:44; Admin Dose 200 MG; Start 08/19/18 at 13:00 Sevelamer Carbonate (Renvela) 2.4 gm WITH MEALS GTB Last administered on 09/17/18 17:01; Admin Dose 2.4 GM; Start 08/23/18 at 11:30 Ondansetron HCl (Zofran Inj) 4 mg Q4H PRN IV NAUSEA AND/OR VOMITING Last administered on 09/09/18 11:21; Admin Dose 4 MG; Start 08/23/18 at 14:30 Lactobacillus Acidophilus/ Rhamnosus (Culturelle) 1 cap TID GTB Last administered on 09/17/18 12:44; Admin Dose 1 CAP; Start 08/24/18 at 13:00 Albumin Human 100 ml @ 100 mls/hr WITH DIALYSIS PRN IV SBP <90 DURING DIALYSIS; Start 08/26/18 at 12:00 Sodium Chloride (NS) -To prime the dialy... DIRECTED FOR HD PRN IV HD; Start 08/26/18 at 12:00 Nitroglycerin (Nitroglycerin 2% Oint) 0.5 inch Q6 PRN TD CHEST PAIN; Start 08/27/18 at 00:30 Lorazepam (Ativan) 1 mg Q4H PRN IV ANXIETY Last administered on 08/27/18 04:14; Admin Dose 1 MG; Start 08/27/18 at 04:30 Eye Lubricant (Artificial Tears Oph) 2 drop Q2H PRN BOTH EYES dry eyes; Start 08/28/18 at 01:30 Epoetin Jarrell-epbx (RETACRIT(esrd)) 10,000 unit MoWeFr@1700 SC Last administered on 09/17/18 17:03; Admin Dose 10,000 UNIT; Start 08/29/18 at 17:00 Morphine Sulfate (morphine) 3 mg Q1H PRN GTB PAIN NOT RELIEVED BY OTHERS Last administered on 09/09/18 09:45; Admin Dose 3 MG; Start 08/29/18 at 12:00 Lansoprazole (Prevacid) 30 mg DAILY@06 GTB Last administered on 09/17/18 06:09; Admin Dose 30 MG; Start 08/30/18 at 06:00 Oxycodone HCl (Roxicodone) 5 mg Q4H PRN PO MODERATE PAIN LEVEL 4-6 Last adminis tered on 09/15/18 06:17; Admin Dose 5 MG; Start 09/01/18 at 10:00 Miscellaneous Information (* Miscellaneous Pharmacy Order) ASPIRIN ORDER WILL ... Q12 XX ; Start 09/05/18 at 10:00 Ipratropium [place] (Atrovent 0.02% (Neb)) 0.5 mg Q6HWA RESP THERAPY HHN Last administered on 09/17/18 14:34; Admin Dose 0.5 MG; Start 09/07/18 at 20:00 Albuterol (Proventil 0.083% (Neb)) 2.5 mg Q6H RESP THERAPY HHN Last administered on 09/17/18 14:34; Admin Dose 2.5 MG; Start 09/07/18 at 20:00 Multivit/Ca Carb/ B Cmplx/FA/Prenat (Shalonda-Jaylen) 1 tab DAILY GTB Last administered on 09/17/18 09:03; Admin Dose 1 TAB; Start 09/08/18 at 09:00 Heparin Sodium (Porcine) (Heparin (5000 Units/1ml)) 5,000 unit BID SC Last administered on 09/17/18 09:06; Admin Dose 5,000 UNIT; Start 09/08/18 at 21:00 Hydralazine HCl (Apresoline) 10 mg Q2 PRN IV ELEVATED SYSTOLIC BP Last administered on 09/16/18 15:50; Admin Dose 10 MG; Start 09/12/18 at 16:30 Carvedilol (Coreg) 50 mg BID PO Last administered on 09/17/18 09:04; Admin Dose 50 MG; Start 09/14/18 at 21:00 Assessment/Plan Hospital Course (Demo Recall) 1. s/p V. fib cardiac arrest 2. Acute myocardial infarction 3. Status post emergent PCI of the 100% occluded LAD as well as PTCA of the diagonal and PCI LCX/ OM , sp PCI RCA 09/04 4. Diabetes 5. Respiratory failure status post intubation on the vent 6. Hypertension 7. Renal failure : acute on chronic 8. Likely history of congestive heart failure 9. Dyslipidemia 10. Encephalopathy: Clear anoxic brain injury on hypothermia protocol 11. Morbid obesity 12. Anemia 13. elevated LFT 14. fever, bacteremia pneumonia 15. Malnutrition, anasarca . 16. septic shock and staph aureus bacteremia 17. oropharyngeal bleeding 18. CVA Recommendations: Continue with aspirin/ plavix Antibiotic management as per ID recommendation f/u renal fx. in has significantly improved now weaning as tolerated. We will defer to pulmonary team Continue with Coreg 50 bid Transfusion prn given her severe anemia and NM/ VF tele monitoring DVT prophylaxis Thank you for his referral. We will continue to follow along with you LOIS JOHNSON MD [facility] LOIS JOHNSON MD Sep 17, 2018 17:45
[2018-09-17] MEDS: ATORVASTATIN 80 MG TAB PO SCH (21:21)
[2018-09-18] VITALS (9 sets, daily range): BP systolic 129–167; BP diastolic 80–89; PULSE 82–97; RESP 18
[2018-09-18] MEDS: ALBUTEROL 0.083% (NEB) 2.5 MG/3 ML AMP HHN SCH ×4 (03:15→20:19)
[2018-09-18] MEDS: LANSOPRAZOLE 30 MG CAP GTB SCH (05:39)
[2018-09-18] MEDS: IPRATROPIUM (NEB) 0.5 MG/2.5 ML AMP HHN SCH ×3 (08:11→20:20)
[2018-09-18] MEDS: ZINC SULFATE 220 MG CAP NGT SCH (08:44)
[2018-09-18] MEDS: FOLIC ACID 1 MG TAB NGT SCH (08:44)
[2018-09-18] MEDS: SEVELAMER CARBONATE 2.4 GM PKT GTB SCH ×3 (08:44→17:53)
[2018-09-18] MEDS: CLOPIDOGREL 75 MG TAB NGT SCH (08:45)
[2018-09-18] MEDS: MULTIVIT/CA CARB/B CMPLX/FA TAB GTB SCH (08:45)
[2018-09-18] MEDS: RIFAXIMIN 200 MG TAB PO SCH ×3 (08:45→20:37)
[2018-09-18] MEDS: ASPIRIN 81 MG TAB NGT SCH (08:45)
[2018-09-18] MEDS: LACTOBACILLUS RHAMNOSUS CAP GTB SCH ×3 (08:45→20:37)
[2018-09-18] MEDS: ASCORBIC ACID 500 MG TAB NGT SCH (08:46)
[2018-09-18] MEDS: HEPARIN 5,000 UNIT/1 ML VIAL SC SCH ×2 (09:04→22:36)
--- NOTE | 2018-09-18 09:08 | PN ---
DATE: 09/18/2018 SUBJECTIVE: The patient is stable. No events overnight. OBJECTIVE: VITAL SIGNS: Blood pressure is 167/89, pulse 87, respirations 18, temperature 98.4. HEENT: Head is normocephalic. NECK: Supple. HEART: Regular rate. LUNGS: Show diminished breath sounds at the base. ABDOMEN: Soft, nontender to palpation without rebound or guarding. EXTREMITIES: Negative for clubbing, cyanosis, no edema. DERMATOLOGIC: No rashes. MUSCULOSKELETAL: No joint effusion. NEUROLOGIC: No change in exam. MEDICATIONS: Reviewed. LABORATORY DATA: Reviewed. ASSESSMENT AND PLAN: 1. Nonoliguric acute kidney injury with previously normal baseline creatinine. Etiology of acute ki dney injury is secondary to acute tubular necrosis. The patient's renal function has improved. The patient is status post hemodialysis, Devan catheter was removed. Continue to monitor, continue sup portive care, renally dose all medications. 2. Anemia. Continue to monitor hemoglobin and hematocrit levels. 3. Mineral bone disorder. The patient remains hyperphosphatemic despite improving renal function. We will continue phosphate binders. Continue to monitor. 4. Chronic respiratory failure, status post trach. Continue to monitor. 5. Coronary artery disease, status post percutaneous coronary intervention. Continue medical manage ment. 6. Dysphagia, continue tube feeding. 7. Encephalopathy, improving. 8. Status post shock. 9. Status post cardiac arrest. 10. Acute cerebrovascular accident. Continue medical management. Dictated By: BHUMI REDDY DO NR/NTS Conf#: [id number] DID#: [id number] CC: LAUREN GREWAL MD; THOMAS RILEY MD; DANIAL TUCKER MD;*EndCC*
--- NOTE | 2018-09-18 10:50 | PN ---
Date/Time of Note Date/Time of Note DATE: 09/18/18 TIME: 10:48 Assessment/Plan VTE Prophylaxis Risk score (from Ns)>0 risk: 9 SCD applied (from Ns): Yes Pharmacological prophylaxis: other Lines/Catheters IV Catheter Type (from Nrs): PICC Line Central line still needed: Yes Urinary Cath still in place: No Assessment/Plan Assessment/Plan 1. CAD s/p PCI x3- stable - Cardiology recommendations appreciated. Will need to continue aspirin for life and DAPT for 1 year - s/p emergent Cath 08/05 with successful PTCA and stenting of proximal and mid LAD, PTCA of the large first diagonal and thrombectomy of the LAD - Repeat PCI on 08/07 performed with stenting to LCx - Repeat PCI on 09/04 with stenting ostial/proximal right coronary artery 2. Acute hypoxic respiratory failure- resolving, off vent - Pulm on board and appreciate recommendations. - ENT physician saw patient, however could not visualize airway fully, does not recommend removing tracheostomy at this time, will will need to follow-up outpatient for tracheostomy removal eventually. 3. Acute toxic/metabolic encephalopathy- resolved - Patient back to baseline and doing well. - Neurology input appreciated and will reconsult if needed 4. Bilateral CVA - PT/OT on board - Found on MRI, likely thromboembolic secondary to cardiopulmonary arrest per neurology - Continue on aspirin/Plavix and Lipitor 5. Anemia, blood loss and renal disease- stable - Hgb remains stable, transfuse as needed 6. Bilateral Pneumonia- resolved - ID on board and appreciate recommendations. Monitor off antibiotics 7. Septic shock secondary to PNA and bacteremia- resolved - Blood cultures and sputum culture results noted. - ID on board 8. Renal failure now off HD - Nephrology on board and appreciate recommendations. Cr continues to improve daily 9. Diabetes - A1c noted - ISS not needed 10. S/p V-fib cardiac arrest secondary to STEMI - Completed hypothermia protocol 11. Disposition - Medically stable for discharge once SNF found Result Diagram: 09/18/18 0752 09/18/18 0752 Results 24hrs Laboratory Tests Test 09/18/18 07:52 White Blood Count 6.5 Red Blood Count 3.33 L Hemoglobin 9.6 L Hematocrit 32.0 L Mean Corpuscular Volume 96.1 Mean Corpuscular Hemoglobin 28.8 L Mean Corpuscular Hemoglobin Concent 30.0 L Red Cell Distribution Width 16.6 H Platelet Count 170 Mean Platelet Volume 11.9 H Immature Granulocytes % 0.500 H Neutrophils % 45.9 Lymphocytes % 39.1 Monocytes % 9.3 Eosinophils % 4.1 Basophils % 1.1 Nucleated Red Blood Cells % 0.0 Immature Granulocytes # 0.030 Neutrophils # 3.0 Lymphocytes # 2.6 Monocytes # 0.6 Eosinophils # 0.3 Basophils # 0.1 Nucleated Red Blood Cells # 0.0 Sodium Level 139 Potassium Level 3.9 Chloride Level 101 Carbon Dioxide Level 26 Anion Gap 12 Blood Urea Nitrogen 46 H Creatinine 1.22 H Glucose Level 83 Calcium Level 9.9 Phosphorus Level 7.6 H Magnesium Level 1.7 Albumin 3.6 Subjective 24 Hr Interval Summary Free Text/Dictation Patient doing well and denies any acute issues. No overnight events. Exam/Review of Systems Exam Vitals Vital Signs Date Temp Pulse Resp B/P (MAP) Pulse Ox O2 O2 Flow FiO2 Time Delivery Rate 09/18/18 87 18 97 Aerosol 5.0 28 08:21 09/18/18 98.4 167/89 07:11 (115) Intake and Output 09/17/18 09/17/18 09/18/18 1515:00 23:00 07:00 IntakeIntake Total 1000 ml 200 ml BalanceBalance 1000 ml 200 ml Exam General: Patient is laying in bed and answers questions appropriately Neck: Supple, nontender, midline, trach in place Respiratory: Clear to auscultation bilaterally. no wheezing Cardiovascular: regular rate and rhythm, no obvious murmurs Gastrointestinal: soft, non-tender to palpation, bowel sounds heard. Neurological: Moves all extremities spontaneously Skin: No new skin lesions Results Results 24hrs Laboratory Tests Test 09/18/18 07:52 White Blood Count 6.5 Red Blood Count 3.33 L Hemoglobin 9.6 L Hematocrit 32.0 L Mean Corpuscular Volume 96.1 Mean Corpuscular Hemoglobin 28.8 L Mean Corpuscular Hemoglobin Concent 30.0 L Red Cell Distribution Width 16.6 H Platelet Count 170 Mean Platelet Volume 11.9 H Immature Granulocytes % 0.500 H Neutrophils % 45.9 Lymphocytes % 39.1 Monocytes % 9.3 Eosinophils % 4.1 Basophils % 1.1 Nucleated Red Blood Cells % 0.0 Immature Granulocytes # 0.030 Neutrophils # 3.0 Lymphocytes # 2.6 Monocytes # 0.6 Eosinophils # 0.3 Basophils # 0.1 Nucleated Red Blood Cells # 0.0 Sodium Level 139 Potassium Level 3.9 Chloride Level 101 Carbon Dioxide Level 26 Anion Gap 12 Blood Urea Nitrogen 46 H Creatinine 1.22 H Glucose Level 83 Calcium Level 9.9 Phosphorus Level 7.6 H Magnesium Level 1.7 Albumin 3.6 Medications Medication Current Medications Atorvastatin Calcium (Lipitor) 80 mg DAILY@21 PO Last administered on 09/17/18 21:21; Admin Dose 80 MG; Start 08/05/18 at 21:00 Miscellaneous Information 1 ea NOTE XX ; Start 08/05/18 at 09:00 Acetaminophen (Tylenol Liquid) 650 mg Q4H PRN PO ELEVATED TEMPERATURE Last administered on 09/01/18 00:29; Admin Dose 650 MG; Start 08/05/18 at 11:00 Aspirin (Aspirin) 81 mg DAILY NGT Last administered on 09/18/18 08:45; Admin Dose 81 MG; Start 08/06/18 at 09:00 Zinc Sulfate (Zinc Sulfate) 220 mg DAILY NGT Last administered on 09/18/18 08:44; Admin Dose 220 MG; Start 08/09/18 at 09:00 Folic Acid (Folic Acid) 1 mg DAILY NGT Last administered on 09/18/18 08:44; Admin Dose 1 MG; Start 08/09/18 at 09:00 Ascorbic Acid (Vitamin C) 500 mg DAILY NGT Last administered on 09/18/18 08:46; Admin Dose 500 MG; Start 08/09/18 at 09:00 IV Flush (NS 10 ml) 10 ml PRN PRN IV IV PROTOCOL; Start 08/11/18 at 16:30 Heparin Sodium (Porcine) (Heparin (1000 Units/ml)) 3,000 unit PRN PRN CATHETER Dialysis Last administered on 09/09/18 22:35; Admin Dose 3,000 UNIT; Start 08/12/18 at 14:30 Labetalol HCl (Labetalol) 10 mg Q4H PRN IV ELEVATED SYSTOLIC BP > 170 Last administered on 08/20/18 16:54; Admin Dose 10 MG; Start 08/14/18 at 19:00 Clopidogrel Bisulfate (plaVIX) 75 mg DAILY NGT Last administered on 09/18/18 08:45; Admin Dose 75 MG; Start 08/18/18 at 13:30 Rifaximin (Xifaxan) 200 mg TID PO Last administered on 09/18/18 08:45; Admin Dose 200 MG; Start 08/19/18 at 13:00 Sevelamer Carbonate (Renvela) 2.4 gm WITH MEALS GTB Last administered on 09/18/18 08:44; Admin Dose 2.4 GM; Start 08/23/18 at 11:30 Ondansetron HCl (Zofran Inj) 4 mg Q4H PRN IV NAUSEA AND/OR VOMITING Last administered on 09/09/18 11:21; Admin Dose 4 MG; Start 08/23/18 at 14:30 Lactobacillus Acidophilus/ Rhamnosus (Culturelle) 1 cap TID GTB Last administered on 09/18/18 08:45; Admin Dose 1 CAP; Start 08/24/18 at 13:00 Albumin Human 100 ml @ 100 mls/hr WITH DIALYSIS PRN IV SBP <90 DURING DIALYSIS; Start 08/26/18 at 12:00 Sodium Chloride (NS) -To prime the dialy... DIRECTED FOR HD PRN IV HD; Start 08/26/18 at 12:00 Nitroglycerin (Nitroglycerin 2% Oint) 0.5 inch Q6 PRN TD CHEST PAIN; Start 08/27/18 at 00:30 Lorazepam (Ativan) 1 mg Q4H PRN IV ANXIETY Last administered on 08/27/18 04:14; Admin Dose 1 MG; Start 08/27/18 at 04:30 Eye Lubricant (Artificial Tears Oph) 2 drop Q2H PRN BOTH EYES dry eyes; Start 08/28/18 at 01:30 Epoetin Jarrell-epbx (RETACRIT(esrd)) 10,000 unit MoWeFr@1700 SC Last administered on 09/17/18 17:03; Admin Dose 10,000 UNIT; Start 08/29/18 at 17:00 Morphine Sulfate (morphine) 3 mg Q1H PRN GTB PAIN NOT RELIEVED BY OTHERS Last administered on 09/09/18 09:45; Admin Dose 3 MG; Start 08/29/18 at 12:00 Lansoprazole (Prevacid) 30 mg DAILY@06 GTB Last administered on 09/18/18 05:39; Admin Dose 30 MG; Start 08/30/18 at 06:00 Oxycodone HCl (Roxicodone) 5 mg Q4H PRN PO MODERATE PAIN LEVEL 4-6 Last administered on 09/15/18 06:17; Admin Dose 5 MG; Start 09/01/18 at 10:00 Miscellaneous Information (* Miscellaneous Pharmacy Order) ASPIRIN ORDER WILL ... Q12 XX ; Start 09/05/18 at 10:00 Ipratropium [place] (Atrovent 0.02% (Neb)) 0.5 mg Q6HWA RESP THERAPY HHN Last administered on 09/18/18 08:11; Admin Dose 0.5 MG; Start 09/07/18 at 20:00 Albuterol (Proventil 0.083% (Neb)) 2.5 mg Q6H RESP THERAPY HHN Last administered on 09/18/18 08:11; Admin Dose 2.5 MG; Start 09/07/18 at 20:00 Multivit/Ca Carb/ B Cmplx/FA/Prenat (Shalonda-Jaylen) 1 tab DAILY GTB Last administered on 09/18/18 08:45; Admin Dose 1 TAB; Start 09/08/18 at 09:00 Heparin Sodium (Porcine) (Heparin (5000 Units/1ml)) 5,000 unit BID SC Last administered on 09/18/18 09:04; Admin Dose 5,000 UNIT; Start 09/08/18 at 21:00 Hydralazine HCl (Apresoline) 10 mg Q2 PRN IV ELEVATED SYSTOLIC BP Last administered on 09/16/18 15:50; Admin Dose 10 MG; Start 09/12/18 at 16:30 Carvedilol (Coreg) 50 mg BID PO Last administered on 09/18/18 08:46; Admin Dose 50 MG; Start 09/14/18 at 21:00 THOMAS RILEY MD Sep 18, 2018 10:50
--- NOTE | 2018-09-18 11:02 | CONS ---
Assessment/Plan Assessment/Plan Assessment/Plan (Daily) Assessment and recommendations; 1. Patient admitted with cardiac arrest status post coronary intervention, status post tracheostomy because of failure to be weaned from ventilator. 2. Encephalopathy with marked interval resolution. 3. CVA per MRI of the brain, patient however not exhibiting any clinical neurological deficit. 4. Renal failure, with marked interval improvement as well. Followed by technical services analyst. 5. Anemia. 6. Status post treatment for pneumonia. Continue current supportive care. PMV trials as tolerated. Consider transfer to senior care/rehab center. Consultation Date/Type/Reason Admit Date/Time Aug 04, 2018 at 23:10 Initial Consult Date 08/17/18 Type of Consult Pulmonary/critical care Requesting Provider: HARPAL AGGARWAL MD Date/Time of Note DATE: 09/18/18 TIME: 11:00 24 HR Interval Summary Free Text/Dictation Patient's condition is stable. Remains awake and alert. General exam; young female, awake alert, on T-piece via tracheostomy. Currently in no distress. Exam/Review of Systems Exam Vitals Vital Signs Date Temp Pulse Resp B/P (MAP) Pulse Ox O2 O2 Flow FiO2 Time Delivery Rate 09/18/18 87 18 97 Aerosol 5.0 28 08:21 09/18/18 98.4 167/89 07:11 (115) Intake and Output 09/17/18 09/17/18 09/18/18 1515:00 23:00 07:00 IntakeIntake Total 1000 ml 200 ml BalanceBalance 1000 ml 200 ml Exam H ENT exam; supple neck, no JVD. No lymphadenopathy. Midline trachea. No thyromegaly. Tracheostomy in place.T-piece. Patient has fair dentition. Chest exam; diminished but clear breath sounds. S1-S2 audible, no murmurs. Regular rhythm. Abdomen exam; soft, nontender. No organomegaly. G-tube in place. Bowel sounds audible. Extremity exam; no peripheral edema clubbing. DISTRICT RANGER exam; no focal deficit. Results Result Diagram: 09/18/18 0752 09/18/18 0752 Results 24hrs Laboratory Tests Test 09/18/18 07:52 White Blood Count 6.5 Red Blood Count 3.33 L Hemoglobin 9.6 L Hematocrit 32.0 L Mean Corpuscular Volume 96.1 Mean Corpuscular Hemoglobin 28.8 L Mean Corpuscular Hemoglobin Concent 30.0 L Red Cell Distribution Width 16.6 H Platelet Count 170 Mean Platelet Volume 11.9 H Immature Granulocytes % 0.500 H Neutrophils % 45.9 Lymphocytes % 39.1 Monocytes % 9.3 Eosinophils % 4.1 Basophils % 1.1 Nucleated Red Blood Cells % 0.0 Immature Granulocytes # 0.030 Neutrophils # 3.0 Lymphocytes # 2.6 Monocytes # 0.6 Eosinophils # 0.3 Basophils # 0.1 Nucleated Red Blood Cells # 0.0 Sodium Level 139 Potassium Level 3.9 Chloride Level 101 Carbon Dioxide Level 26 Anion Gap 12 Blood Urea Nitrogen 46 H Creatinine 1.22 H Glucose Level 83 Calcium Level 9.9 Phosphorus Level 7.6 H Magnesium Level 1.7 Albumin 3.6 Medications Medication Current Medications Atorvastatin Calcium (Lipitor) 80 mg DAILY@21 PO Last administered on 09/17/18 21:21; Admin Dose 80 MG; Start 08/05/18 at 21:00 Miscellaneous Information 1 ea NOTE XX ; Start 08/05/18 at 09:00 Acetaminophen (Tylenol Liquid) 650 mg Q4H PRN PO ELEVATED TEMPERATURE Last administered on 09/01/18 00:29; Admin Dose 650 MG; Start 08/05/18 at 11:00 Aspirin (Aspirin) 81 mg DAILY NGT Last administered on 09/18/18 08:45; Admin Dose 81 MG; Start 08/06/18 at 09:00 Zinc Sulfate (Zinc Sulfate) 220 mg DAILY NGT Last administered on 09/18/18 08:44; Admin Dose 220 MG; Start 08/09/18 at 09:00 Folic Acid (Folic Acid) 1 mg DAILY NGT Last administered on 09/18/18 08:44; Admin Dose 1 MG; Start 08/09/18 at 09:00 Ascorbic Acid (Vitamin C) 500 mg DAILY NGT Last administered on 09/18/18 08: 46; Admin Dose 500 MG; Start 08/09/18 at 09:00 IV Flush (NS 10 ml) 10 ml PRN PRN IV IV PROTOCOL; Start 08/11/18 at 16:30 Heparin Sodium (Porcine) (Heparin (1000 Units/ml)) 3,000 unit PRN PRN CATHETER Dialysis Last administered on 09/09/18at 22:35; Admin Dose 3,000 UNIT; Start 08/12/18 at 14:30 Labetalol HCl (Labetalol) 10 mg Q4H PRN IV ELEVATED SYSTOLIC BP > 170 Last administered on 08/20/18 16:54; Admin Dose 10 MG; Start 08/14/18 at 19:00 Clopidogrel Bisulfate (plaVIX) 75 mg DAILY NGT Last administered on 09/18/18 08:45; Admin Dose 75 MG; Start 08/18/18 at 13:30 Rifaximin (Xifaxan) 200 mg TID PO Last administered on 09/18/18 08:45; Admin Dose 200 MG; Start 08/19/18 at 13:00 Sevelamer Carbonate (Renvela) 2.4 gm WITH MEALS GTB Last administered on 09/18/18 08:44; Admin Dose 2.4 GM; Start 08/23/18 at 11:30 Ondansetron HCl (Zofran Inj) 4 mg Q4H PRN IV NAUSEA AND/OR VOMITING Last ad ministered on 09/09/18 11:21; Admin Dose 4 MG; Start 08/23/18 at 14:30 Lactobacillus Acidophilus/ Rhamnosus (Culturelle) 1 cap TID GTB Last administered on 09/18/18 08:45; Admin Dose 1 CAP; Start 08/24/18 at 13:00 Albumin Human 100 ml @ 100 mls/hr WITH DIALYSIS PRN IV SBP <90 DURING DIALYSIS; Start 08/26/18 at 12:00 Sodium Chloride (NS) -To prime the dialy... DIRECTED FOR HD PRN IV HD; Start 08/26/18 at 12:00 Nitroglycerin (Nitroglycerin 2% Oint) 0.5 inch Q6 PRN TD CHEST PAIN; Start 08/27/18 at 00:30 Lorazepam (Ativan) 1 mg Q4H PRN IV ANXIETY Last administered on 08/27/18 04:14; Admin Dose 1 MG; Start 08/27/18 at 04:30 Eye Lubricant (Artificial Tears Oph) 2 drop Q2H PRN BOTH EYES dry eyes; Start 08/28/18 at 01:30 Epoetin Jarrell-epbx (RETACRIT(esrd)) 10,000 unit MoWeFr@1700 SC Last administered on 09/17/18 17:03; Admin Dose 10,000 UNIT; Start 08/29/18 at 17:00 Morphine Sulfate (morphine) 3 mg Q1H PRN GTB PAIN NOT RELIEVED BY OTHERS Last administered on 09/09/18 09:45; Admin Dose 3 MG; Start 08/29/18 at 12:00 Lansoprazole (Prevacid) 30 mg DAILY@06 GTB Last administered on 09/18/18 05:39; Admin Dose 30 MG; Start 08/30/18 at 06:00 Oxycodone HCl (Roxicodone) 5 mg Q4H PRN PO MODERATE PAIN LEVEL 4-6 Last administered on 09/15/18 06:17; Admin Dose 5 MG; Start 09/01/18 at 10:00 Miscellaneous Information (* Miscellaneous Pharmacy Order) ASPIRIN ORDER WILL ... Q12 XX ; Start 09/05/18 at 10:00 Ipratropium [place] (Atrovent 0.02% (Neb)) 0.5 mg Q6HWA RESP THERAPY HHN Last administered on 09/18/18 08:11; Admin Dose 0.5 MG; Start 09/07/18 at 20:00 Albuterol (Proventil 0.083% (Neb)) 2.5 mg Q6H RESP THERAPY HHN Last administered on 09/18/18 08:11; Admin Dose 2.5 MG; Start 09/07/18 at 20:00 Multivit/Ca Carb/ B Cmplx/FA/Prenat (Shalonda-Jaylen) 1 tab DAILY GTB Last adminis tered on 09/18/18 08:45; Admin Dose 1 TAB; Start 09/08/18 at 09:00 Heparin Sodium (Porcine) (Heparin (5000 Units/1ml)) 5,000 unit BID SC Last administered on 09/18/18 09:04; Admin Dose 5,000 UNIT; Start 09/08/18 at 21:00 Hydralazine HCl (Apresoline) 10 mg Q2 PRN IV ELEVATED SYSTOLIC BP Last adm inistered on 09/16/18 15:50; Admin Dose 10 MG; Start 09/12/18 at 16:30 Carvedilol (Coreg) 50 mg BID PO Last administered on 09/18/18 08:46; Admin Dose 50 MG; Start 09/14/18 at 21:00 MARIAA KINSEY Sep 18, 2018 11:02
--- NOTE | 2018-09-18 19:47 | CONS ---
Consult Date/Type/Reason Admit Date/Time Aug 04, 2018 at 23:10 Initial Consult Date 08/05/18 Type of Consultation: cv Requesting Provider: HARPAL AGGARWAL MD Date/Time of Note DATE: 09/18/18 TIME: 19:47 Subjective Interventional cardiology follow-up progress note Subjective: Events noted discussed with the staff and tele was reviewed. no V tachycardia or V fibrillation. d/w family /father BP is stable she denies any cp to me now She has less shortness of breath at this point events noted s/p PCI 100% occluded LAD 08/04 S/P PCI LCX/ OM s/p trach 08/22/18 PCI RCA 09/04/18 Objective: General: Obese female no acute distress s/p trach on O2 HEENT: NC/AT. pupils are equal. round. NECK: . no stridor. s/p trach on oxygen CV: RRR. systolic murmur; no gallop or rubs. PULM: no wheezing mild rhonchi. GI: Obese SOFT, NT, ND, no rebound or guarding s/pPEG Extremity: trace B/L LE edema. no clubbing. neuro: awake and follows commands Psych: Calm now rectal: deferred EKG August 06, 2018 was personally within normal sinus rhythm. T wave inversions anterior and inferior leads ECG 08/07: NSR ST T abn c/w ant/lat ischemia CXR 08/14: Nonspecific patchy bilateral pulmonary opacity, mildly improved on the right. No pneumothorax. Endotracheal tube, nasogastric tube, and right-sided PICC line remain in place. Stable mild cardiomegaly. The osseous structures are remarkable for degenerative enthesopathy of the spine. Chest x-ray done August 06 shows:No evidence for active cardiopulmonary disease. CXR 08/19: Diffuse bilateral reticular nodular infiltrates unchanged. Question bronchopneumonia versus failure. CXR 08/28/18: Allowing for support structures overlying the right base, no significant change. Left mid and bibasilar air space opacities/infiltrates are again present. Lines and tubes are stable ECHO personally reviewed Normal left ventricular cavity size. Normal left ventricular wall thickness. Ejection fraction is visually estimated at 55-65 %. Normal appearance of the mitral valve. Mitral valve is not well visualized. No mitral valve regurgitation is seen. Aortic valve not well visualized. No aortic regurgitation. Normal appearance of the tricuspid valve. Unable to obtain RVSP due to minimal presence of tricuspid regurgitation. No evidence of tricuspid regurgitation. Normal pericardium with no significant pericardial effusion. suboptimal study. Objective Vitals Vital Signs Date Temp Pulse Resp B/P (MAP) Pulse Ox O2 O2 Flow FiO2 Time Delivery Rate 09/18/18 83 18 95 Aerosol 5.0 28 17:34 09/18/18 98.2 162/80 15:32 (107) Intake and Output 09/17/18 09/17/18 09/18/18 1515:00 23:00 07:00 IntakeIntake Total 1000 ml 200 ml BalanceBalance 1000 ml 200 ml Results/Medications Result Diagram: 09/18/18 0752 09/18/18 0752 Results 24 hrs Laboratory Tests Test 09/18/18 07:52 White Blood Count 6.5 Red Blood Count 3.33 L Hemoglobin 9.6 L Hematocrit 32.0 L Mean Corpuscular Volume 96.1 Mean Corpuscular Hemoglobin 28.8 L Mean Corpuscular Hemoglobin Concent 30.0 L Red Cell Distribution Width 16.6 H Platelet Count 170 Mean Platelet Volume 11.9 H Immature Granulocytes % 0.500 H Neutrophils % 45.9 Lymphocytes % 39.1 Monocytes % 9.3 Eosinophils % 4.1 Basophils % 1.1 Nucleated Red Blood Cells % 0.0 Immature Granulocytes # 0.030 Neutrophils # 3.0 Lymphocytes # 2.6 Monocytes # 0.6 Eosinophils # 0.3 Basophils # 0.1 Nucleated Red Blood Cells # 0.0 Sodium Level 139 Potassium Level 3.9 Chloride Level 101 Carbon Dioxide Level 26 Anion Gap 12 Blood Urea Nitrogen 46 H Creatinine 1.22 H Glucose Level 83 Calcium Level 9.9 Phosphorus Level 7.6 H Magnesium Level 1.7 Albumin 3.6 Medications Current Medications Atorvastatin Calcium (Lipitor) 80 mg DAILY@21 PO Last administered on 09/17/18at 21:21; Admin Dose 80 MG; Start 08/05/18 at 21:00 Miscellaneous Information 1 ea NOTE XX ; Start 08/05/18 at 09:00 Acetaminophen (Tylenol Liquid) 650 mg Q4H PRN PO ELEVATED TEMPERATURE Last administered on 09/01/18at 00:29; Admin Dose 650 MG; Start 08/05/18 at 11:00 Aspirin (Aspirin) 81 mg DAILY NGT Last administered on 09/18/18 08:45; Admin Dose 81 MG; Start 08/06/18 at 09:00 Zinc Sulfate (Zinc Sulfate) 220 mg DAILY NGT Last administered on 09/18/18 08:44; Admin Dose 220 MG; Start 08/09/18 at 09:00 Folic Acid (Folic Acid) 1 mg DAILY NGT Last administered on 09/18/18 08:44; Admin Dose 1 MG; Start 08/09/18 at 09:00 Ascorbic Acid (Vitamin C) 500 mg DAILY NGT Last administered on 09/18/18 08:46; Admin Dose 500 MG; Start 08/09/18 at 09:00 IV Flush (NS 10 ml) 10 ml PRN PRN IV IV PROTOCOL; Start 08/11/18 at 16:30 Heparin Sodium (Porcine) (Heparin (1000 Units/ml)) 3,000 unit PRN PRN CATHETER Dialysis Last administered on 09/09/18 22:35; Admin Dose 3,000 UNIT; Start 08/12/18 at 14:30 Labetalol HCl (Labetalol) 10 mg Q4H PRN IV ELEVATED SYSTOLIC BP > 170 Last a dministered on 08/20/18 16:54; Admin Dose 10 MG; Start 08/14/18 at 19:00 Clopidogrel Bisulfate (plaVIX) 75 mg DAILY NGT Last administered on 09/18/18 08:45; Admin Dose 75 MG; Start 08/18/18 at 13:30 Rifaximin (Xifaxan) 200 mg TID PO Last administered on 09/18/18 12:36; Admin Dose 200 MG; Start 08/19/18 at 13:00 Sevelamer Carbonate (Renvela) 2.4 gm WITH MEALS GTB Last administered on 09/18/18 17:53; Admin Dose 2.4 GM; Start 08/23/18 at 11:30 Ondansetron HCl (Zofran Inj) 4 mg Q4H PRN IV NAUSEA AND/OR VOMITING Last administered on 09/09/18 11:21; Admin Dose 4 MG; Start 08/23/18 at 14:30 Lactobacillus Acidophilus/ Rhamnosus (Culturelle) 1 cap TID GTB Last administered on 09/18/18 12:36; Admin Dose 1 CAP; Start 08/24/18 at 13:00 Albumin Human 100 ml @ 100 mls/hr WITH DIALYSIS PRN IV SBP <90 DURING DIALYSIS; Start 08/26/18 at 12:00 Sodium Chloride (NS) -To prime the dialy... DIRECTED FOR HD PRN IV HD; Start 08/26/18 at 12:00 Nitroglycerin (Nitroglycerin 2% Oint) 0.5 inch Q6 PRN TD CHEST PAIN; Start 08/27/18 at 00:30 Lorazepam (Ativan) 1 mg Q4H PRN IV ANXIETY Last administered on 08/27/18 04:14; Admin Dose 1 MG; Start 08/27/18 at 04:30 Eye Lubricant (Artificial Tears Oph) 2 drop Q2H PRN BOTH EYES dry eyes; Start 08/28/18 at 01:30 Epoetin Jarrell-epbx (RETACRIT(esrd)) 10,000 unit MoWeFr@1700 SC Last administered on 09/17/18 17:03; Admin Dose 10,000 UNIT; Start 08/29/18 at 17:00 Morphine Sulfate (morphine) 3 mg Q1H PRN GTB PAIN NOT RELIEVED BY OTHERS Last administered on 09/09/18 09:45; Admin Dose 3 MG; Start 08/29/18 at 12:00 Lansoprazole (Prevacid) 30 mg DAILY@06 GTB Last administered on 09/18/18 05:39; Admin Dose 30 MG; Start 08/30/18 at 06:00 Oxycodone HCl (Roxicodone) 5 mg Q4H PRN PO MODERATE PAIN LEVEL 4-6 Last administered on 09/15/18 06:17; Admin Dose 5 MG; Start 09/01/18 at 10:00 Miscellaneous Information (* Miscellaneous Pharmacy Order) ASPIRIN ORDER WILL ... Q12 XX ; Start 09/05/18 at 10:00 Ipratropium [place] (Atrovent 0.02% (Neb)) 0.5 mg Q6HWA RESP THERAPY HHN Last administered on 09/18/18 14:15; Admin Dose 0.5 MG; Start 09/07/18 at 20:00 Albuterol (Proventil 0.083% (Neb)) 2.5 mg Q6H RESP THERAPY HHN Last administered on 4/30/19at 14:15; Admin Dose 2.5 MG; Start 09/07/18 at 20:00 Multivit/Ca Carb/ B Cmplx/FA/Prenat (Shalonda-Jaylen) 1 tab DAILY GTB Last administered on 09/18/18 08:45; Admin Dose 1 TAB; Start 09/08/18 at 09:00 Heparin Sodium (Porcine) (Heparin (5000 Units/1ml)) 5,000 unit BID SC Last administered on 09/18/18 09:04; Admin Dose 5,000 UNIT; Start 09/08/18 at 21:00 Hydralazine HCl (Apresoline) 10 mg Q2 PRN IV ELEVATED SYSTOLIC BP Last administered on 09/16/18 15:50; Admin Dose 10 MG; Start 09/12/18 at 16:30 Carvedilol (Coreg) 50 mg BID PO Last administered on 09/18/18 08:46; Admin Dose 50 MG; Start 09/14/18 at 21:00 Assessment/Plan Hospital Course (Demo Recall) 1. s/p V. fib cardiac arrest 2. Acute myocardial infarction 3. Status post emergent PCI of the 100% occluded LAD as well as PTCA of the diagonal and PCI LCX/ OM , sp PCI RCA 09/04 4. Diabetes 5. Respiratory failure status post intubation on the vent 6. Hypertension 7. Renal failure : acute on chronic 8. Likely history of congestive heart failure 9. Dyslipidemia 10. Encephalopathy: Clear anoxic brain injury on hypothermia protocol 11. Morbid obesity 12. Anemia 13. elevated LFT 14. fever, bacteremia pneumonia 15. Malnutrition, anasarca . 16. septic shock and staph aureus bacteremia 17. oropharyngeal bleeding 18. CVA Recommendations: Continue with aspirin/ plavix Antibiotic management as per ID recommendation f/u renal fx. in has significantly improved now weaning as tolerated. We will defer to pulmonary team Continue with Coreg 50 bid Transfusion prn given her severe anemia and AL/ VF tele monitoring DVT prophylaxis Thank you for his referral. We will continue to follow along with you LOIS JOHNSON MD [facility] LOIS JOHNSON MD Sep 18, 2018 19:47
[2018-09-18] MEDS: ATORVASTATIN 80 MG TAB PO SCH (20:37)
[2018-09-19] VITALS (10 sets, daily range): BP systolic 148–171; BP diastolic 80–97; PULSE 87–100; RESP 16–20
[2018-09-19] MEDS: ALBUTEROL 0.083% (NEB) 2.5 MG/3 ML AMP HHN SCH ×4 (02:21→20:10)
[2018-09-19] MEDS: LANSOPRAZOLE 30 MG CAP GTB SCH (05:47)
--- NOTE | 2018-09-19 08:49 | PN ---
DATE: 09/19/2018 SUBJECTIVE: The patient is stable, no events overnight. OBJECTIVE: VITAL SIGNS: Blood pressure is 163/85, pulse 91, respirations 18, temperature 98.5. HEENT: Head is normocephalic. NECK: Supple. HEART: Regular rate. LUNGS: Show diminished breath sounds at the base. ABDOMEN: Soft, nontender to palpation without rebound or guarding. EXTREMITIES: Negative for clubbing, cyanosis, no edema. DERMATOLOGIC: No rashes. MUSCULOSKELETAL: No joint effusion. NEUROLOGIC: No change in exam. MEDICATIONS: Reviewed. LABORATORY DATA: Reviewed. ASSESSMENT AND PLAN: 1. Nonoliguric acute kidney injury with previously normal baseline creatinine. Etiology of acute ki dney injury is secondary to acute tubular necrosis. The patient is showing excellent renal recovery. Continue to monitor. 2. Anemia. Monitor hemoglobin and hematocrit levels. 3. Mineral bone disorder. Continue to monitor calcium and phosphorus levels. Continue phosphate bi nders at this time. 4. Chronic respiratory failure, status post tracheostomy, currently stable. 5. Coronary artery disease, status post percutaneous coronary intervention. Continue medical manage ment. 6. Encephalopathy, improved. 7. Dysphagia, improved. The patient is tolerating n.p.o. 8. Status post shock. 9. Status post cardiac arrest. 10. Acute cerebrovascular accident. Continue medical management. Dictated By: BHUMI REDDY DO NR/NTS Conf#: [id number] DID#: [id number] CC: THOMAS RILEY MD; DANIAL TUCKER MD; LAUREN GREWAL MD;*End*
[2018-09-19] MEDS: ASPIRIN 81 MG TAB NGT SCH (09:04)
[2018-09-19] MEDS: ASCORBIC ACID 500 MG TAB NGT SCH (09:04)
[2018-09-19] MEDS: RIFAXIMIN 200 MG TAB PO SCH ×3 (09:05→20:31)
[2018-09-19] MEDS: ZINC SULFATE 220 MG CAP NGT SCH (09:05)
[2018-09-19] MEDS: MULTIVIT/CA CARB/B CMPLX/FA TAB GTB SCH (09:05)
[2018-09-19] MEDS: FOLIC ACID 1 MG TAB NGT SCH (09:06)
[2018-09-19] MEDS: LACTOBACILLUS RHAMNOSUS CAP GTB SCH ×3 (09:06→20:31)
[2018-09-19] MEDS: CLOPIDOGREL 75 MG TAB NGT SCH (09:06)
[2018-09-19] MEDS: SEVELAMER CARBONATE 2.4 GM PKT GTB SCH ×3 (09:07→17:22)
[2018-09-19] MEDS: IPRATROPIUM (NEB) 0.5 MG/2.5 ML AMP HHN SCH ×3 (09:15→20:10)
[2018-09-19] MEDS: HEPARIN 5,000 UNIT/1 ML VIAL SC SCH ×2 (09:24→21:41)
--- NOTE | 2018-09-19 09:26 | CONS ---
Consult Date/Type/Reason Admit Date/Time Aug 04, 2018 at 23:10 Initial Consult Date 08/05/18 Type of Consultation: cv Requesting Provider: HARPAL AGGARWAL MD Date/Time of Note DATE: 09/19/18 TIME: 09:23 Subjective Interventional cardiology follow-up progress note Subjective: Events noted discussed with the staff and tele was reviewed. no V tachycardia or V fibrillation. BP is stable ./high she denies any cp to me now She has less shortness of breath at this point tolerating weaning so far events noted s/p PCI 100% occluded LAD 08/04 S/P PCI LCX/ OM s/p trach 08/22/18 PCI RCA 09/04/18 Objective: General: Obese female no acute distress s/p trach on O2 HEENT: NC/AT. pupils are equal. round. NECK: . no stridor. s/p trach on oxygen CV: RRR. systolic murmur; no gallop or rubs. PULM: no wheezing mild rhonchi. GI: Obese SOFT, NT, ND, no rebound or guarding s/pPEG Extremity: trace B/L LE edema. no clubbing. neuro: awake and follows commands Psych: Calm now rectal: deferred EKG August 06, 2018 was personally within normal sinus rhythm. T wave inversions anterior and inferior leads ECG 08/07: NSR ST T abn c/w ant/lat ischemia CXR 08/14: Nonspecific patchy bilateral pulmonary opacity, mildly improved on the right. No pneumothorax. Endotracheal tube, nasogastric tube, and right-sided PICC line remain in place. Stable mild cardiomegaly. The osseous structures are remarkable for degenerative enthesopathy of the spine. Chest x-ray done August 06 shows:No evidence for active cardiopulmonary disease. CXR 08/19: Diffuse bilateral reticular nodular infiltrates unchanged. Question bronchopneumonia versus failure. CXR 08/28/18: Allowing for support structures overlying the right base, no significant change. Left mid and bibasilar air space opacities/infiltrates are again present. Lines and tubes are stable ECHO personally reviewed Normal left ventricular cavity size. Normal left ventricular wall thickness. Ejection fraction is visually estimated at 55-65 %. Normal appearance of the mitral valve. Mitral valve is not well visualized. No mitral valve regurgitation is seen. Aortic valve not well visualized. No aortic regurgitation. Normal appearance of the tricuspid valve. Unable to obtain RVSP due to minimal presence of tricuspid regurgitation. No evidence of tricuspid regurgitation. Normal pericardium with no significant pericardial effusion. suboptimal study. Objective Vitals Vital Signs Date Temp Pulse Resp B/P (MAP) Pulse Ox O2 O2 Flow FiO2 Time Delivery Rate 09/19/18 69 20 96 Aerosol 5.0 28 09:16 09/19/18 98.5 163/85 07:28 (111) Intake and Output 09/18/18 09/18/18 09/19/18 1515:00 23:00 07:00 IntakeIntake Total 250 ml BalanceBalance 250 ml Results/Medications Result Diagram: 09/18/18 0752 09/18/18 075 Medications Current Medications Atorvastatin Calcium (Lipitor) 80 mg DAILY@21 PO Last administered on 09/18/18at 20:37; Admin Dose 80 MG; Start 08/05/18 at 21:00 Miscellaneous Information 1 ea NOTE XX ; Start 08/05/18 at 09:00 Acetaminophen (Tylenol Liquid) 650 mg Q4H PRN PO ELEVATED TEMPERATURE Last administered on 09/01/18 00:29; Admin Dose 650 MG; Start 08/05/18 at 11:00 Aspirin (Aspirin) 81 mg DAILY NGT Last administered on 09/18/18 08:45; Admin Dose 81 MG; Start 08/06/18 at 09:00 Zinc Sulfate (Zinc Sulfate) 220 mg DAILY NGT Last administered on 09/18/18 08:44; Admin Dose 220 MG; Start 08/09/18 at 09:00 Folic Acid (Folic Acid) 1 mg DAILY NGT Last administered on 09/18/18 08:44; Admin Dose 1 MG; Start 08/09/18 at 09:00 Ascorbic Acid (Vitamin C) 500 mg DAILY NGT Last administered on 09/18/18 08:46; Admin Dose 500 MG; Start 08/09/18 at 09:00 IV Flush (NS 10 ml) 10 ml PRN PRN IV IV PROTOCOL; Start 08/11/18 at 16:30 Heparin Sodium (Porcine) (Heparin (1000 Units/ml)) 3,000 unit PRN PRN CATHETER Dialysis Last administered on 09/09/18at 22:35; Admin Dose 3,000 UNIT; Start 08/12/18 at 14:30 Labetalol HCl (Labetalol) 10 mg Q4H PRN IV ELEVATED SYSTOLIC BP > 170 Last administered on 08/20/18 16:54; Admin Dose 10 MG; Start 08/14/18 at 19:00 Clopidogrel Bisulfate (plaVIX) 75 mg DAILY NGT Last administered on 09/18/18 08:45; Admin Dose 75 MG; Start 08/18/18 at 13:30 Rifaximin (Xifaxan) 200 mg TID PO Last administered on 09/18/18 20:37; Admin Dose 200 MG; Start 08/19/18 at 13:00 Sevelamer Carbonate (Renvela) 2.4 gm WITH MEALS GTB Last administered on 09/18/18 17:53; Admin Dose 2.4 GM; Start 08/23/18 at 11:30 Ondansetron HCl (Zofran Inj) 4 mg Q4H PRN IV NAUSEA AND/OR VOMITING Last administered on 09/09/18 11:21; Admin Dose 4 MG; Start 08/23/18 at 14:30 Lactobacillus Acidophilus/ Rhamnosus (Culturelle) 1 cap TID GTB Last administered on 09/18/18 20:37; Admin Dose 1 CAP; Start 08/24/18 at 13:00 Albumin Human 100 ml @ 100 mls/hr WITH DIALYSIS PRN IV SBP <90 DURING DIALYSIS; Start 08/26/18 at 12:00 Sodium Chloride (NS) -To prime the dialy... DIRECTED FOR HD PRN IV HD; Start 08/26/18 at 12:00 Nitroglycerin (Nitroglycerin 2% Oint) 0.5 inch Q6 PRN TD CHEST PAIN; Start 08/27/18 at 00:30 Lorazepam (Ativan) 1 mg Q4H PRN IV ANXIETY Last administered on 08/27/18 04:14; Admin Dose 1 MG; Start 08/27/18 at 04:30 Eye Lubricant (Artificial Tears Oph) 2 drop Q2H PRN BOTH EYES dry eyes; Start 08/28/18 at 01:30 Epoetin Jarrell-epbx (RETACRIT(esrd)) 10,000 unit MoWeFr@1700 SC Last administered on 09/17/18 17:03; Admin Dose 10,000 UNIT; Start 08/29/18 at 17:00 Morphine Sulfate (morphine) 3 mg Q1H PRN GTB PAIN NOT RELIEVED BY OTHERS Last administered on 09/09/18 09:45; Admin Dose 3 MG; Start 08/29/18 at 12:00 Lansoprazole (Prevacid) 30 mg DAILY@06 GTB Last administered on 09/19/18 05:47; Admin Dose 30 MG; Start 08/30/18 at 06:00 Oxycodone HCl (Roxicodone) 5 mg Q4H PRN PO MODERATE PAIN LEVEL 4-6 Last administered on 09/15/18 06:17; Admin Dose 5 MG; Start 09/01/18 at 10:00 Miscellaneous Information (* Miscellaneous Pharmacy Order) ASPIRIN ORDER WILL ... Q12 XX ; Start 09/05/18 at 10:00 Ipratropium [place] (Atrovent 0.02% (Neb)) 0.5 mg Q6HWA RESP THERAPY HHN Last administered on 09/19/18 09:15; Admin Dose 0.5 MG; Start 09/07/18 at 20:00 Albuterol (Proventil 0.083% (Neb)) 2.5 mg Q6H RESP THERAPY HHN Last administered on 09/19/18 09:16; Admin Dose 2.5 MG; Start 09/07/18 at 20:00 Multivit/Ca Carb/ B Cmplx/FA/Prenat (Shalonda-Jaylen) 1 tab DAILY GTB Last administered on 09/18/18 08:45; Admin Dose 1 TAB; Start 09/08/18 at 09:00 Heparin Sodium (Porcine) (Heparin (5000 Units/1ml)) 5,000 unit BID SC Last administered on 09/18/18 22:36; Admin Dose 5,000 UNIT; Start 09/08/18 at 21:00 Hydralazine HCl (Apresoline) 10 mg Q2 PRN IV ELEVATED SYSTOLIC BP Last administered on 09/16/18 15:50; Admin Dose 10 MG; Start 09/12/18 at 16:30 Carvedilol (Coreg) 50 mg BID PO Last administered on 09/18/18 20:38; Admin Dose 50 MG; Start 09/14/18 at 21:00 Assessment/Plan Hospital Course (Demo Recall) 1. s/p V. fib cardiac arrest 2. Acute myocardial infarction 3. Status post emergent PCI of the 100% occluded LAD as well as PTCA of the diagonal and PCI LCX/ OM , sp PCI RCA 09/04 4. Diabetes 5. Respiratory failure status post trach: on weanign 6. Hypertension 7. Renal failure : acute on chronic: resolved now 8. Likely history of congestive heart failure 9. Dyslipidemia 10. Encephalopathy: improved now 11. Morbid obesity 12. Anemia 13. elevated LFT 14. fever, bacteremia pneumonia 15. Malnutrition, anasarca . 16. septic shock and staph aureus bacteremia 17. oropharyngeal bleeding 18. CVA Recommendations: Continue with aspirin/ plavix Antibiotic management as per ID recommendation f/u renal fx. in has significantly improved now weaning as tolerated. We will defer to pulmonary team Continue with Coreg 50 bid . WILL ADD NORVASC Transfusion prn given her severe anemia and [place]/ VF tele monitoring DVT prophylaxis Thank you for his referral. We will continue to follow along with you LOIS JOHNSON MD [facility] LOIS JOHNSON MD September 19, 2018 09:26
--- NOTE | 2018-09-19 09:42 | CONS ---
Assessment/Plan Assessment/Plan Assessment/Plan (Daily) Assessment and recommendations; 1. Patient status post respiratory failure doing very well on T-piece now. 2. Complete interval resolution of encephalopathy. 3. Status post treatment for bilateral pneumonia. 4. Renal failure, on hemodialysis. 5. Anemia. 6. Dysphagia, status post G-tube placement. 7. CVA per MRI of the brain however patient not exhibiting any clinical neurological deficit. 8. Status post acute coronary intervention with stenting. Continue with supportive care. PMV trials as tolerated. Consider transfer to rehab center. Consultation Date/Type/Reason Admit Date/Time Aug 04, 2018 at 23:10 Initial Consult Date 08/17/18 Type of Consult Pulmonary/critical care Requesting Provider: HARPAL AGGARWAL MD Date/Time of Note DATE: 09/19/18 TIME: 09:40 24 HR Interval Summary Free Text/Dictation Patient's condition is stable. Remains awake and alert. Has remained hemodynamically stable. Denies any shortness of breath. General exam; young lady, awake and alert. On T-piece via tracheostomy. Currently in no distress. Exam/Review of Systems Exam Vitals Vital Signs Date Temp Pulse Resp B/P (MAP) Pulse Ox O2 O2 Flow FiO2 Time Delivery Rate 09/19/18 69 20 96 Aerosol 5.0 28 09:16 09/19/18 98.5 163/85 07:28 (111) Intake and Output 09/18/18 09/18/18 09/19/18 1515:00 23:00 07:00 IntakeIntake Total 250 ml BalanceBalance 250 ml Exam H ENT exam; supple neck, no JVD. No lymphadenopathy. Midline trachea. No thyromegaly. Tracheostomy in place. Attached to T-piece. Patient has good dentition. No neck masses. Chest exam; clear to auscultation. S1-S2 audible, no murmurs. Regular rhythm. Abdomen exam; soft, nontender. Mildly protuberant. G-tube in place. Bowel sounds audible. Extremity exam; no peripheral edema or clubbing. Pulses 1+. [employer]IFT exam; no focal deficit. Results Result Diagram: 09/18/18 0752 09/18/18 0752 Medications Medication Current Medications Atorvastatin Calcium (Lipitor) 80 mg DAILY@21 PO Last administered on 09/18/18at 20:37; Admin Dose 80 MG; Start 08/05/18 at 21:00 Miscellaneous Information 1 ea NOTE XX ; Start 08/05/18 at 09:00 Acetaminophen (Tylenol Liquid) 650 mg Q4H PRN PO ELEVATED TEMPERATURE Last administered on 09/01/18 00:29; Admin Dose 650 MG; Start 08/05/18 at 11:00 Aspirin (Aspirin) 81 mg DAILY NGT Last administered on 09/19/18 09:04; Admin Dose 81 MG; Start 08/06/18 at 09:00 Zinc Sulfate (Zinc Sulfate) 220 mg DAILY NGT Last administered on 09/19/18 09:05; Admin Dose 220 MG; Start 08/09/18 at 09:00 Folic Acid (Folic Acid) 1 mg DAILY NGT Last administered on 09/19/18 09:06; Admin Dose 1 MG; Start 08/09/18 at 09:00 Ascorbic Acid (Vitamin C) 500 mg DAILY NGT Last administered on 09/19/18 09:04; Admin Dose 500 MG; Start 08/09/18 at 09:00 IV Flush (NS 10 ml) 10 ml PRN PRN IV IV PROTOCOL; Start 08/11/18 at 16:30 Heparin Sodium (Porcine) (Heparin (1000 Units/ml)) 3,000 unit PRN PRN CATHETER Dialysis Last administered on 09/09/18 22:35; Admin Dose 3,000 UNIT; Start 08/12/18 at 14:30 Labetalol HCl (Labetalol) 10 mg Q4H PRN IV ELEVATED SYSTOLIC BP > 170 Last administered on 08/20/18 16:54; Admin Dose 10 MG; Start 08/14/18 at 19:00 Clopidogrel Bisulfate (plaVIX) 75 mg DAILY NGT Last administered on 09/19/18 09:06; Admin Dose 75 MG; Start 08/18/18 at 13:30 Rifaximin (Xifaxan) 200 mg TID PO Last administered on 09/19/18 09:05; Admin Dose 200 MG; Start 08/19/18 at 13:00 Sevelamer Carbonate (Renvela) 2.4 gm WITH MEALS GTB Last administered on 09/19/18 09:07; Admin Dose 2.4 GM; Start 08/23/18 at 11:30 Ondansetron HCl (Zofran Inj) 4 mg Q4H PRN IV NAUSEA AND/OR VOMITING Last administered on 09/09/18at 11:21; Admin Dose 4 MG; Start 08/23/18 at 14:30 Lactobacillus Acidophilus/ Rhamnosus (Culturelle) 1 cap TID GTB Last administered on 09/19/18at 09:06; Admin Dose 1 CAP; Start 08/24/18 at 13:00 Albumin Human 100 ml @ 100 mls/hr WITH DIALYSIS PRN IV SBP <90 DURING DIALYSIS; Start 08/26/18 at 12:00 Sodium Chloride (NS) -To prime the dialy... DIRECTED FOR HD PRN IV HD; Start 08/26/18 at 12:00 Nitroglycerin (Nitroglycerin 2% Oint) 0.5 inch Q6 PRN TD CHEST PAIN; Start 08/27/18 at 00:30 Lorazepam (Ativan) 1 mg Q4H PRN IV ANXIETY Last administered on 08/27/18at 04:14; Admin Dose 1 MG; Start 08/27/18 at 04:30 Eye Lubricant (Artificial Tears Oph) 2 drop Q2H PRN BOTH EYES dry eyes; Start 08/28/18 at 01:30 Epoetin Jarrell-epbx (RETACRIT(esrd)) 10,000 unit MoWeFr@1700 SC Last administered on 09/17/18at 17:03; Admin Dose 10,000 UNIT; Start 08/29/18 at 17:00 Morphine Sulfate (morphine) 3 mg Q1H PRN GTB PAIN NOT RELIEVED BY OTHERS Last administered on 09/09/18at 09:45; Admin Dose 3 MG; Start 08/29/18 at 12:00 Lansoprazole (Prevacid) 30 mg DAILY@06 GTB Last administered on 09/19/18at 05:47; Admin Dose 30 MG; Start 08/30/18 at 06:00 Oxycodone HCl (Roxicodone) 5 mg Q4H PRN PO MODERATE PAIN LEVEL 4-6 Last administered on 09/15/18at 06:17; Admin Dose 5 MG; Start 09/01/18 at 10:00 Miscellaneous Information (* Miscellaneous Pharmacy Order) ASPIRIN ORDER WILL ... Q12 XX ; Start 09/05/18 at 10:00 Ipratropium [place] (Atrovent 0.02% (Neb)) 0.5 mg Q6HWA RESP THERAPY HHN Last administered on 09/19/18 09:15; Admin Dose 0.5 MG; Start 09/07/18 at 20:00 Albuterol (Proventil 0.083% (Neb)) 2.5 mg Q6H RESP THERAPY HHN Last administered on 09/19/18 09:16; Admin Dose 2.5 MG; Start 09/07/18 at 20:00 Multivit/Ca Carb/ B Cmplx/FA/Prenat (Shalonda-Jaylen) 1 tab DAILY GTB Last administered on 09/19/18 09:05; Admin Dose 1 TAB; Start 09/08/18 at 09:00 Heparin Sodium (Porcine) (Heparin (5000 Units/1ml)) 5,000 unit BID SC Last administered on 09/19/18 09:24; Admin Dose 5,000 UNIT; Start 09/08/18 at 21:00 Hydralazine HCl (Apresoline) 10 mg Q2 PRN IV ELEVATED SYSTOLIC BP Last administered on 09/16/18 15:50; Admin Dose 10 MG; Start 09/12/18 at 16:30 Carvedilol (Coreg) 50 mg BID PO Last administered on 09/19/18 09:08; Admin Dose 50 MG; Start 09/14/18 at 21:00 Amlodipine Besylate (Norvasc) 2.5 mg DAILY GTB ; Start 09/19/18 at 09:30 MARIAA KINSEY September 19, 2018 09:42
[2018-09-19] MEDS: AMLODIPINE 2.5 MG TAB GTB SCH (11:48)
--- NOTE | 2018-09-19 12:39 | PN ---
Date/Time of Note Date/Time of Note DATE: 09/19/18 TIME: 12:39 Assessment/Plan VTE Prophylaxis Risk score (from Ns)>0 risk: 9 SCD applied (from Ns): Yes Pharmacological prophylaxis: other Lines/Catheters IV Catheter Type (from Nrsg): PICC Line Central line still needed: Yes Urinary Cath still in place: No Assessment/Plan Assessment/Plan 1. CAD s/p PCI x3- stable - Cardiology recommendations appreciated. Will need to continue aspirin for life and DAPT for 1 year - s/p emergent Cath 08/05 with successful PTCA and stenting of proximal and mid LAD, PTCA of the large first diagonal and thrombectomy of the LAD - Repeat PCI on 08/07 performed with stenting to LCx - Repeat PCI on 09/04 with stenting ostial/proximal right coronary artery 2. Acute hypoxic respiratory failure- resolving, off vent - Pulm on board and appreciate recommendations. - ENT physician saw patient, however could not visualize airway fully, does not recommend removing tracheostomy at this time. Will need laser procedure due to presents of stricture/adhesions as outpatient 3. Acute toxic/metabolic encephalopathy- resolved - Patient back to baseline and doing well. - Neurology input appreciated and will reconsult if needed 4. Bilateral CVA - PT/OT on board - Found on MRI, likely thromboembolic secondary to cardiopulmonary arrest per neurology - Continue on aspirin/Plavix and Lipitor 5. Anemia, blood loss and renal disease- stable - Hgb remains stable, transfuse as needed 6. Bilateral Pneumonia- resolved - ID on board and appreciate recommendations. Monitor off antibiotics 7. Septic shock secondary to PNA and bacteremia- resolved - Blood cultures and sputum culture results noted. - ID on board 8. Renal failure now off HD - Nephrology on board and appreciate recommendations. Cr continues to improve daily 9. Diabetes - A1c noted - ISS not needed 10. S/p V-fib cardiac arrest secondary to STEMI - Completed hypothermia protocol 11. Disposition - Medically stable for discharge once accepted to [facility] Result Diagram: 09/18/18 0752 09/18/18 0752 Subjective 24 Hr Interval Summary Free Text/Dictation Patient sitting in chair at bedside in no acute distress. Exam/Review of Systems Exam Vitals Vital Signs Date Temp Pulse Resp B/P (MAP) Pulse Ox O2 O2 Flow FiO2 Time Delivery Rate 09/19/18 98.0 93 18 171/97 100 11:41 (121) 09/19/18 Aerosol 5.0 28 09:16 Intake and Output 09/18/18 09/18/18 09/19/18 1515:00 23:00 07:00 IntakeIntake Total 250 ml BalanceBalance 250 ml Exam General: Patient is laying in bed and answers questions appropriately Neck: Supple, nontender, midline, trach in place Respiratory: Clear to auscultation bilaterally. no wheezing Cardiovascular: regular rate and rhythm, no obvious murmurs Gastrointestinal: soft, non-tender to palpation, bowel sounds heard. Neurological: Moves all extremities spontaneously Skin: No new skin lesions Medications Medication Current Medications Atorvastatin Calcium (Lipitor) 80 mg DAILY@21 PO Last administered on 09/18/18 20:37; Admin Dose 80 MG; Start 08/05/18 at 21:00 Miscellaneous Information 1 ea NOTE XX ; Start 08/05/18 at 09:00 Acetaminophen (Tylenol Liquid) 650 mg Q4H PRN PO ELEVATED TEMPERATURE Last administered on 09/01/18 00:29; Admin Dose 650 MG; Start 08/05/18 at 11:00 Aspirin (Aspirin) 81 mg DAILY NGT Last administered on 09/19/18 09:04; Admin Dose 81 MG; Start 08/06/18 at 09:00 Zinc Sulfate (Zinc Sulfate) 220 mg DAILY NGT Last administered on 09/19/18 09:05; Admin Dose 220 MG; Start 08/09/18 at 09:00 Folic Acid (Folic Acid) 1 mg DAILY NGT Last administered on 09/19/18 09:06; Admin Dose 1 MG; Start 08/09/18 at 09:00 Ascorbic Acid (Vitamin C) 500 mg DAILY NGT Last administered on 09/19/18 09:04; Admin Dose 500 MG; Start 08/09/18 at 09:00 IV Flush (NS 10 ml) 10 ml PRN PRN IV IV PROTOCOL; Start 08/11/18 at 16:30 Heparin Sodium (Porcine) (Heparin (1000 Units/ml)) 3,000 unit PRN PRN CATHETER Dialysis Last administered on 09/09/18 22:35; Admin Dose 3,000 UNIT; Start 08/12/18 at 14:30 Labetalol HCl (Labetalol) 10 mg Q4H PRN IV ELEVATED SYSTOLIC BP > 170 Last administered on 4/1/19at 16:54; Admin Dose 10 MG; Start 08/14/18 at 19:00 Clopidogrel Bisulfate (plaVIX) 75 mg DAILY NGT Last administered on 09/19/18 09:06; Admin Dose 75 MG; Start 08/18/18 at 13:30 Rifaximin (Xifaxan) 200 mg TID PO Last administered on 09/19/18 09:05; Admin Dose 200 MG; Start 08/19/18 at 13:00 Sevelamer Carbonate (Renvela) 2.4 gm WITH MEALS GTB Last administered on 09/19/18 11:48; Admin Dose 2.4 GM; Start 08/23/18 at 11:30 Ondansetron HCl (Zofran Inj) 4 mg Q4H PRN IV NAUSEA AND/OR VOMITING Last administered on 09/09/18 11:21; Admin Dose 4 MG; Start 08/23/18 at 14:30 Lactobacillus Acidophilus/ Rhamnosus (Culturelle) 1 cap TID GTB Last administered on 09/19/18 09:06; Admin Dose 1 CAP; Start 08/24/18 at 13:00 Albumin Human 100 ml @ 100 mls/hr WITH DIALYSIS PRN IV SBP <90 DURING DIALYSIS; Start 08/26/18 at 12:00 Sodium Chloride (NS) -To prime the dialy... DIRECTED FOR HD PRN IV HD; Start 08/26/18 at 12:00 Nitroglycerin (Nitroglycerin 2% Oint) 0.5 inch Q6 PRN TD CHEST PAIN; Start 08/27/18 at 00:30 Lorazepam (Ativan) 1 mg Q4H PRN IV ANXIETY Last administered on 08/27/18 04:14; Admin Dose 1 MG; Start 08/27/18 at 04:30 Eye Lubricant (Artificial Tears Oph) 2 drop Q2H PRN BOTH EYES dry eyes; Start 08/28/18 at 01:30 Epoetin Jarrell-epbx (RETACRIT(esrd)) 10,000 unit MoWeFr@1700 SC Last administered on 09/17/18 17:03; Admin Dose 10,000 UNIT; Start 08/29/18 at 17:00 Morphine Sulfate (morphine) 3 mg Q1H PRN GTB PAIN NOT RELIEVED BY OTHERS Last administered on 09/09/18 09:45; Admin Dose 3 MG; Start 08/29/18 at 12:00 Lansoprazole (Prevacid) 30 mg DAILY@06 GTB Last administered on 09/19/18 05:47; Admin Dose 30 MG; Start 08/30/18 at 06:00 Oxycodone HCl (Roxicodone) 5 mg Q4H PRN PO MODERATE PAIN LEVEL 4-6 Last administered on 09/15/18 06:17; Admin Dose 5 MG; Start 09/01/18 at 10:00 Miscellaneous Information (* Miscellaneous Pharmacy Order) ASPIRIN ORDER WILL ... Q12 XX ; Start 09/05/18 at 10:00 Ipratropium [place] (Atrovent 0.02% (Neb)) 0.5 mg Q6HWA RESP THERAPY HHN Last administered on 09/19/18 09:15; Admin Dose 0.5 MG; Start 09/07/18 at 20:00 Albuterol (Proventil 0.083% (Neb)) 2.5 mg Q6H RESP THERAPY HHN Last administered on 09/19/18 09:16; Admin Dose 2.5 MG; Start 09/07/18 at 20:00 Multivit/Ca Carb/ B Cmplx/FA/Prenat (Shalonda-Jaylen) 1 tab DAILY GTB Last administered on 09/19/18 09:05; Admin Dose 1 TAB; Start 09/08/18 at 09:00 Heparin Sodium (Porcine) (Heparin (5000 Units/1ml)) 5,000 unit BID SC Last administered on 09/19/18 09:24; Admin Dose 5,000 UNIT; Start 09/08/18 at 21:00 Hydralazine HCl (Apresoline) 10 mg Q2 PRN IV ELEVATED SYSTOLIC BP Last administered on 09/16/18 15:50; Admin Dose 10 MG; Start 09/12/18 at 16:30 Carvedilol (Coreg) 50 mg BID PO Last administered on 09/19/18 09:08; Admin Dose 50 MG; Start 09/14/18 at 21:00 Amlodipine Besylate (Norvasc) 2.5 mg DAILY GTB Last administered on 09/19/18 11:48; Admin Dose 2.5 MG; Start 09/19/18 at 09:30 THOMAS RILEY MD September 19, 2018 12:39
[2018-09-19] MEDS: oxyCODONE 5 MG TAB PO PRN (13:00)
[2018-09-19] MEDS: EPOETIN ALFA-EPBX (ESRD) 10,000 UNIT/ML VIAL SC SCH (17:22)
[2018-09-19] MEDS: ATORVASTATIN 80 MG TAB PO SCH (20:41)
[2018-09-20] VITALS (13 sets, daily range): BP systolic 96–167; BP diastolic 65–97; PULSE 79–96; RESP 16–19
[2018-09-20] MEDS: ALBUTEROL 0.083% (NEB) 2.5 MG/3 ML AMP HHN SCH ×4 (01:06→19:49)
[2018-09-20] MEDS: LANSOPRAZOLE 30 MG CAP GTB SCH (06:04)
[2018-09-20] MEDS: IPRATROPIUM (NEB) 0.5 MG/2.5 ML AMP HHN SCH ×3 (07:53→19:49)
--- NOTE | 2018-09-20 08:18 | CONS ---
Consult Date/Type/Reason Admit Date/Time Aug 04, 2018 at 23:10 Initial Consult Date 08/05/18 Type of Consultation: cv Requesting Provider: HARPAL AGGARWAL MD Date/Time of Note DATE: 09/20/18 TIME: 08:17 Subjective Interventional cardiology follow-up progress note Subjective: Events noted discussed with the staff and tele was reviewed. no V tachycardia or V fibrillation. BP is stable /high she denies any cp to me now She has less shortness of breath at this point tolerating weaning so far events noted s/p PCI 100% occluded LAD 08/04 S/P PCI LCX/ OM s/p trach 08/22/18 PCI RCA 09/04/18 Objective: General: Obese female no acute distress s/p trach on O2 HEENT: NC/AT. pupils are equal. round. NECK: . no stridor. s/p trach on oxygen CV: RRR. systolic murmur; no gallop or rubs. PULM: no wheezing mild rhonchi. GI: Obese SOFT, NT, ND, no rebound or guarding s/pPEG Extremity: trace B/L LE edema. no clubbing. neuro: awake and follows commands Psych: Calm now rectal: deferred EKG August 06, 2018 was personally within normal sinus rhythm. T wave inversions anterior and inferior leads ECG 08/07: NSR ST T abn c/w ant/lat ischemia CXR 08/14: Nonspecific patchy bilateral pulmonary opacity, mildly improved on the right. No pneumothorax. Endotracheal tube, nasogastric tube, and right-sided PICC line remain in place. Stable mild cardiomegaly. The osseous structures are remarkable for degenerative enthesopathy of the spine. Chest x-ray done August 06 shows:No evidence for active cardiopulmonary disease. CXR 08/19: Diffuse bilateral reticular nodular infiltrates unchanged. Question bronchopneumonia versus failure. CXR 08/28/18: Allowing for support structures overlying the right base, no significant change. Left mid and bibasilar air space opacities/infiltrates are again present. Lines and tubes are stable ECHO personally reviewed Normal left ventricular cavity size. Normal left ventricular wall thickness. Ejection fraction is visually estimated at 55-65 %. Normal appearance of the mitral valve. Mitral valve is not well visualized. No mitral valve regurgitation is seen. Aortic valve not well visualized. No aortic regurgitation. Normal appearance of the tricuspid valve. Unable to obtain RVSP due to minimal presence of tricuspid regurgitation. No evidence of tricuspid regurgitation. Normal pericardium with no significant pericardial effusion. suboptimal study. Objective Vitals Vital Signs Date Temp Pulse Resp B/P (MAP) Pulse Ox O2 O2 Flow FiO2 Time Delivery Rate 09/20/18 98.5 90 18 158/89 99 08:14 (112) 09/20/18 Aerosol 5.0 28 07:55 Intake and Output 09/19/18 09/19/18 09/20/18 1414:59 22:59 06:59 IntakeIntake Total 900 ml 400 ml BalanceBalance 900 ml 400 ml Results/Medications Result Diagram: 09/20/18 0555 09/20/1855 Results 24 hrs Laboratory Tests Test 09/20/18 05:55 White Blood Count 7.6 Red Blood Count 3.52 L Hemoglobin 10.1 L Hematocrit 33.5 L Mean Corpuscular Volume 95.2 Mean Corpuscular Hemoglobin 28.7 L Mean Corpuscular Hemoglobin Concent 30.1 L Red Cell Distribution Width 16.2 H Platelet Count 146 Mean Platelet Volume 11.8 H Immature Granulocytes % 0.400 Neutrophils % 47.0 Lymphocytes % 39.3 Monocytes % 8.3 Eosinophils % 4.5 Basophils % 0.5 Nucleated Red Blood Cells % 0.0 Immature Granulocytes # 0.030 Neutrophils # 3.6 Lymphocytes # 3.0 H Monocytes # 0.6 Eosinophils # 0.3 Basophils # 0.0 Nucleated Red Blood Cells # 0.0 Sodium Level 139 Potassium Level 3.8 Chloride Level 104 Carbon Dioxide Level 24 Anion Gap 11 Blood Urea Nitrogen 32 #H Creatinine 1.32 H Glucose Level 85 Calcium Level 10.0 Phosphorus Level 6.8 H Magnesium Level 1.4 L Albumin 3.4 Medications Current Medications Atorvastatin Calcium (Lipitor) 80 mg DAILY@21 PO Last administered on 09/19/18at 20:41; Admin Dose 80 MG; Start 08/05/18 at 21:00 Miscellaneous Information 1 ea NOTE XX ; Start 08/05/18 at 09:00 Acetaminophen (Tylenol Liquid) 650 mg Q4H PRN PO ELEVATED TEMPERATURE Last administered on 09/01/18at 00:29; Admin Dose 650 MG; Start 08/05/18 at 11:00 Aspirin (Aspirin) 81 mg DAILY NGT Last administered on 09/19/18 09:04; Admin Dose 81 MG; Start 08/06/18 at 09:00 Zinc Sulfate (Zinc Sulfate) 220 mg DAILY NGT Last administered on 09/19/18 09:05; Admin Dose 220 MG; Start 08/09/18 at 09:00 Folic Acid (Folic Acid) 1 mg DAILY NGT Last administered on 09/19/18 09:06; Admin Dose 1 MG; Start 08/09/18 at 09:00 Ascorbic Acid (Vitamin C) 500 mg DAILY NGT Last administered on 09/19/18 09:04; Admin Dose 500 MG; Start 08/09/18 at 09:00 IV Flush (NS 10 ml) 10 ml PRN PRN IV IV PROTOCOL; Start 08/11/18 at 16:30 Heparin Sodium (Porcine) (Heparin (1000 Units/ml)) 3,000 unit PRN PRN CATHETER Dialysis Last administered on 09/09/18 22:35; Admin Dose 3,000 UNIT; Start 08/12/18 at 14:30 Labetalol HCl (Labetalol) 10 mg Q4H PRN IV ELEVATED SYSTOLIC BP > 170 Last a dministered on 08/20/18 16:54; Admin Dose 10 MG; Start 08/14/18 at 19:00 Clopidogrel Bisulfate (plaVIX) 75 mg DAILY NGT Last administered on 09/19/18 09:06; Admin Dose 75 MG; Start 08/18/18 at 13:30 Rifaximin (Xifaxan) 200 mg TID PO Last administered on 09/19/18 20:31; Admin Dose 200 MG; Start 08/19/18 at 13:00 Sevelamer Carbonate (Renvela) 2.4 gm WITH MEALS GTB Last administered on 09/19/18 17:22; Admin Dose 2.4 GM; Start 08/23/18 at 11:30 Ondansetron HCl (Zofran Inj) 4 mg Q4H PRN IV NAUSEA AND/OR VOMITING Last administered on 09/09/18 11:21; Admin Dose 4 MG; Start 08/23/18 at 14:30 Lactobacillus Acidophilus/ Rhamnosus (Culturelle) 1 cap TID GTB Last administered on 09/19/18 20:31; Admin Dose 1 CAP; Start 08/24/18 at 13:00 Albumin Human 100 ml @ 100 mls/hr WITH DIALYSIS PRN IV SBP <90 DURING DIALYSIS; Start 08/26/18 at 12:00 Sodium Chloride (NS) -To prime the dialy... DIRECTED FOR HD PRN IV HD; Start 08/26/18 at 12:00 Nitroglycerin (Nitroglycerin 2% Oint) 0.5 inch Q6 PRN TD CHEST PAIN; Start 08/27/18 at 00:30 Lorazepam (Ativan) 1 mg Q4H PRN IV ANXIETY Last administered on 08/27/18at 04:14; Admin Dose 1 MG; Start 08/27/18 at 04:30 Eye Lubricant (Artificial Tears Oph) 2 drop Q2H PRN BOTH EYES dry eyes; Start 08/28/18 at 01:30 Epoetin Jarrell-epbx (RETACRIT(esrd)) 10,000 unit MoWeFr@1700 SC Last administered on 09/19/18at 17:22; Admin Dose 10,000 UNIT; Start 08/29/18 at 17:00 Morphine Sulfate (morphine) 3 mg Q1H PRN GTB PAIN NOT RELIEVED BY OTHERS Last administered on 09/09/18at 09:45; Admin Dose 3 MG; Start 08/29/18 at 12:00 Lansoprazole (Prevacid) 30 mg DAILY@06 GTB Last administered on 09/20/18at 06:04; Admin Dose 30 MG; Start 08/30/18 at 06:00 Oxycodone HCl (Roxicodone) 5 mg Q4H PRN PO MODERATE PAIN LEVEL 4-6 Last administered on 09/19/18at 13:00; Admin Dose 5 MG; Start 09/01/18 at 10:00 Miscellaneous Information (* Miscellaneous Pharmacy Order) ASPIRIN ORDER WILL EX PIRE... Q12 XX ; Start 09/05/18 at 10:00 Ipratropium [place] (Atrovent 0.02% (Neb)) 0.5 mg Q6HWA RESP THERAPY HHN Last administered on 09/20/18 07:53; Admin Dose 0.5 MG; Start 09/07/18 at 20:00 Albuterol (Proventil 0.083% (Neb)) 2.5 mg Q6H RESP THERAPY HHN Last administered on 09/20/18 07:53; Admin Dose 2.5 MG; Start 09/07/18 at 20:00 Multivit/Ca Carb/ B Cmplx/FA/Prenat (Shalonda-Jaylen) 1 tab DAILY GTB Last administered on 09/19/18 09:05; Admin Dose 1 TAB; Start 09/08/18 at 09:00 Heparin Sodium (Porcine) (Heparin (5000 Units/1ml)) 5,000 unit BID SC Last administered on 09/19/18 21:41; Admin Dose 5,000 UNIT; Start 09/08/18 at 21:00 Hydralazine HCl (Apresoline) 10 mg Q2 PRN IV ELEVATED SYSTOLIC BP Last administered on 09/16/18 15:50; Admin Dose 10 MG; Start 09/12/18 at 16:30 Carvedilol (Coreg) 50 mg BID PO Last administered on 09/19/18 20:32; Admin Dose 50 MG; Start 09/14/18 at 21:00 Amlodipine Besylate (Norvasc) 2.5 mg DAILY GTB Last administered on 09/19/18 11:48; Admin Dose 2.5 MG; Start 09/19/18 at 09:30 Assessment/Plan Hospital Course (Demo Recall) 1. s/p V. fib cardiac arrest 2. Acute myocardial infarction 3. Status post emergent PCI of the 100% occluded LAD as well as PTCA of the diagonal and PCI LCX/ OM , sp PCI RCA 09/04 4. Diabetes 5. Respiratory failure status post trach: on weanign 6. Hypertension 7. Renal failure : acute on chronic: resolved now 8. Likely history of congestive heart failure 9. Dyslipidemia 10. Encephalopathy: improved now 11. Morbid obesity 12. Anemia 13. elevated LFT 14. fever, bacteremia pneumonia 15. Malnutrition, anasarca . 16. septic shock and staph aureus bacteremia 17. oropharyngeal bleeding 18. CVA Recommendations: Continue with aspirin/ plavix Antibiotic management as per ID recommendation f/u renal fx. it has significantly improved now weaning as tolerated. We will defer to pulmonary team Continue with Coreg 50 bid . cont NORVASC Transfusion prn given her severe anemia and CA/ VF tele monitoring DVT prophylaxis Thank you for his referral. We will continue to follow along with you LOIS JOHNSON MD [facility] LOIS JOHNSON MD September 20, 2018 08:18
[2018-09-20] MEDS: ZINC SULFATE 220 MG CAP NGT SCH (08:29)
[2018-09-20] MEDS: FOLIC ACID 1 MG TAB NGT SCH (08:29)
[2018-09-20] MEDS: MULTIVIT/CA CARB/B CMPLX/FA TAB GTB SCH (08:29)
[2018-09-20] MEDS: AMLODIPINE 2.5 MG TAB GTB SCH (08:30)
[2018-09-20] MEDS: SEVELAMER CARBONATE 2.4 GM PKT GTB SCH ×3 (08:30→17:55)
[2018-09-20] MEDS: RIFAXIMIN 200 MG TAB PO SCH ×3 (08:30→21:00)
[2018-09-20] MEDS: LACTOBACILLUS RHAMNOSUS CAP GTB SCH ×3 (08:30→20:56)
[2018-09-20] MEDS: CLOPIDOGREL 75 MG TAB NGT SCH (08:30)
[2018-09-20] MEDS: ASCORBIC ACID 500 MG TAB NGT SCH (08:30)
[2018-09-20] MEDS: ASPIRIN 81 MG TAB NGT SCH (08:34)
[2018-09-20] MEDS: HEPARIN 5,000 UNIT/1 ML VIAL SC SCH ×2 (08:45→21:07)
[2018-09-20] MEDS ORDERED: MAGNESIUM SULFATE 2 GM/50 ML 50 ML IVPB ONE (09:00)
--- NOTE | 2018-09-20 10:15 | PN ---
DATE: 09/20/2018 SUBJECTIVE: The patient is stable, no events overnight. OBJECTIVE: VITAL SIGNS: Blood pressure is 158/89, pulse 90, respirations 18, temperature 98.5. HEENT: Head is normocephalic. NECK: Supple. HEART: Regular rate. LUNGS: Show diminished breath sounds at the base. ABDOMEN: Soft, nontender to palpation without rebound or guarding. EXTREMITIES: Negative for clubbing, cyanosis, no edema. DERMATOLOGIC: No rashes. MUSCULOSKELETAL: No joint effusion. NEUROLOGIC: No change in exam. MEDICATIONS: Reviewed. LABORATORY DATA: Reviewed. ASSESSMENT AND PLAN: 1. Nonoliguric acute kidney injury with previously normal baseline creatinine. Etiology of acute ki dney injury is secondary to acute tubular necrosis. Renal function is recovering. Continue to monit or. 2. Anemia. Monitor hemoglobin and hematocrit levels. 3. Mineral bone disorder. Monitor calcium and phosphorus levels. Continue phosphate binders. 4. Hypomagnesemia. Continue to monitor and replete. 5. Chronic respiratory failure, status post tracheostomy, currently stable. 6. Coronary artery disease status post percutaneous coronary intervention. Continue medical managem ent. 7. Encephalopathy, improved. 8. Dysphagia, improved. Continue advancing oral diet. 9. Status post shock. 10. Status post cardiac arrest. 11. Acute cerebrovascular accident. Continue medical management. Dictated By: BHUMI REDDY DO NR/NTS Conf#: [id number] DID#: [id number] CC: LAUREN GREWAL MD; THOMAS RILEY MD; DANIAL TUCKER MD;*EndCC*
--- NOTE | 2018-09-20 10:41 | PN ---
Date/Time of Note Date/Time of Note DATE: 09/20/18 TIME: 10:41 Assessment/Plan VTE Prophylaxis Risk score (from Nsg)>0 risk: 4 SCD applied (from Ns): Yes Pharmacological prophylaxis: other Lines/Catheters IV Catheter Type (from Nrsg): PICC Line Central line still needed: Yes Urinary Cath still in place: No Assessment/Plan Assessment/Plan 1. CAD s/p PCI x3- stable - Cardiology recommendations appreciated. Will need to continue aspirin for life and DAPT for 1 year - s/p emergent Cath 08/05 with successful PTCA and stenting of proximal and mid LAD, PTCA of the large first diagonal and thrombectomy of the LAD - Repeat PCI on 08/07 performed with stenting to LCx - Repeat PCI on 09/04 with stenting ostial/proximal right coronary artery 2. Acute hypoxic respiratory failure- resolving, off vent - Pulm on board and appreciate recommendations. - CM on board for assistance with arranging ENT follow up for laser procedure due to presents of stricture/adhesions as outpatient 3. Acute toxic/metabolic encephalopathy- resolved - Patient back to baseline and doing well. - Neurology input appreciated and will reconsult if needed 4. Bilateral CVA - PT/OT on board - Found on MRI, likely thromboembolic secondary to cardiopulmonary arrest per neurology - Continue on aspirin/Plavix and Lipitor 5. Anemia, blood loss and renal disease- stable - Hgb remains stable, transfuse as needed 6. Bilateral Pneumonia- resolved - ID on board and appreciate recommendations. Monitor off antibiotics 7. Septic shock secondary to PNA and bacteremia- resolved - Blood cultures and sputum culture results noted. - ID on board 8. Renal failure now off HD - Nephrology on board and appreciate recommendations. Cr recovering nicely 9. S/p V-fib cardiac arrest secondary to STEMI - Completed hypothermia protocol 10. Disposition - Medically stable for discharge once accepted to [facility] Result Diagram: 09/20/18 0555 09/20/18 0555 Results 24hrs Laboratory Tests Test 09/20/18 05:55 White Blood Count 7.6 Red Blood Count 3.52 L Hemoglobin 10.1 L Hematocrit 33.5 L Mean Corpuscular Volume 95.2 Mean Corpuscular Hemoglobin 28.7 L Mean Corpuscular Hemoglobin Concent 30.1 L Red Cell Distribution Width 16.2 H Platelet Count 146 Mean Platelet Volume 11.8 H Immature Granulocytes % 0.400 Neutrophils % 47.0 Lymphocytes % 39.3 Monocytes % 8.3 Eosinophils % 4.5 Basophils % 0.5 Nucleated Red Blood Cells % 0.0 Immature Granulocytes # 0.030 Neutrophils # 3.6 Lymphocytes # 3.0 H Monocytes # 0.6 Eosinophils # 0.3 Basophils # 0.0 Nucleated Red Blood Cells # 0.0 Sodium Level 139 Potassium Level 3.8 Chloride Level 104 Carbon Dioxide Level 24 Anion Gap 11 Blood Urea Nitrogen 32 #H Creatinine 1.32 H Glucose Level 85 Calcium Level 10.0 Phosphorus Level 6.8 H Magnesium Level 1.4 L Albumin 3.4 Subjective 24 Hr Interval Summary Free Text/Dictation Patient doing well and denies any acute issues. Requesting assistance with getting referral to ENT as outpatient and discussed CM on board for assistance. Exam/Review of Systems Exam Vitals Vital Signs Date Temp Pulse Resp B/P (MAP) Pulse Ox O2 O2 Flow FiO2 Time Delivery Rate 09/20/18 98.5 90 18 158/89 99 08:14 (112) 09/20/18 Aerosol 5.0 28 07:55 Intake and Output 09/19/18 09/19/18 09/20/18 1515:00 23:00 07:00 IntakeIntake Total 900 ml 400 ml BalanceBalance 900 ml 400 ml Exam General: Patient is laying in bed and answers questions appropriately Neck: Supple, nontender, midline, trach in place Respiratory: Clear to auscultation bilaterally. no wheezing Cardiovascular: regular rate and rhythm, no obvious murmurs Gastrointestinal: soft, non-tender to palpation, bowel sounds heard. Skin: No new skin lesions Results Results 24hrs Laboratory Tests Test 09/20/18 05:55 White Blood Count 7.6 Red Blood Count 3.52 L Hemoglobin 10.1 L Hematocrit 33.5 L Mean Corpuscular Volume 95.2 Mean Corpuscular Hemoglobin 28.7 L Mean Corpuscular Hemoglobin Concent 30.1 L Red Cell Distribution Width 16.2 H Platelet Count 146 Mean Platelet Volume 11.8 H Immature Granulocytes % 0.400 Neutrophils % 47.0 Lymphocytes % 39.3 Monocytes % 8.3 Eosinophils % 4.5 Basophils % 0.5 Nucleated Red Blood Cells % 0.0 Immature Granulocytes # 0.030 Neutrophils # 3.6 Lymphocytes # 3.0 H Monocytes # 0.6 Eosinophils # 0.3 Basophils # 0.0 Nucleated Red Blood Cells # 0.0 Sodium Level 139 Potassium Level 3.8 Chloride Level 104 Carbon Dioxide Level 24 Anion Gap 11 Blood Urea Nitrogen 32 #H Creatinine 1.32 H Glucose Level 85 Calcium Level 10.0 Phosphorus Level 6.8 H Magnesium Level 1.4 L Albumin 3.4 Medications Medication Current Medications Atorvastatin Calcium (Lipitor) 80 mg DAILY@21 PO Last administered on 09/19/18 20:41; Admin Dose 80 MG; Start 08/05/18 at 21:00 Miscellaneous Information 1 ea NOTE XX ; Start 08/05/18 at 09:00 Acetaminophen (Tylenol Liquid) 650 mg Q4H PRN PO ELEVATED TEMPERATURE Last administered on 09/01/18 00:29; Admin Dose 650 MG; Start 08/05/18 at 11:00 Aspirin (Aspirin) 81 mg DAILY NGT Last administered on 09/20/18 08:34; Admin Dose 81 MG; Start 08/06/18 at 09:00 Zinc Sulfate (Zinc Sulfate) 220 mg DAILY NGT Last administered on 09/20/18 08:29; Admin Dose 220 MG; Start 08/09/18 at 09:00 Folic Acid (Folic Acid) 1 mg DAILY NGT Last administered on 09/20/18 08:29; Admin Dose 1 MG; Start 08/09/18 at 09:00 Ascorbic Acid (Vitamin C) 500 mg DAILY NGT Last administered on 09/20/18 08:30; Admin Dose 500 MG; Start 08/09/18 at 09:00 IV Flush (NS 10 ml) 10 ml PRN PRN IV IV PROTOCOL; Start 08/11/18 at 16:30 Heparin Sodium (Porcine) (Heparin (1000 Units/ml)) 3,000 unit PRN PRN CATHETER Dialysis Last administered on 09/09/18 22:35; Admin Dose 3,000 UNIT; Start 08/12/18 at 14:30 Labetalol HCl (Labetalol) 10 mg Q4H PRN IV ELEVATED SYSTOLIC BP > 170 Last administered on 08/20/18 16:54; Admin Dose 10 MG; Start 08/14/18 at 19:00 Clopidogrel Bisulfate (plaVIX) 75 mg DAILY NGT Last administered on 09/20/18 08:30; Admin Dose 75 MG; Start 08/18/18 at 13:30 Rifaximin (Xifaxan) 200 mg TID PO Last administered on 09/20/18 08:30; Admin Dose 200 MG; Start 08/19/18 at 13:00 Sevelamer Carbonate (Renvela) 2.4 gm WITH MEALS GTB Last administered on 09/20/18 08:30; Admin Dose 2.4 GM; Start 08/23/18 at 11:30 Ondansetron HCl (Zofran Inj) 4 mg Q4H PRN IV NAUSEA AND/OR VOMITING Last administered on 09/09/18 11:21; Admin Dose 4 MG; Start 08/23/18 at 14:30 Lactobacillus Acidophilus/ Rhamnosus (Culturelle) 1 cap TID GTB Last administered on 09/20/18 08:30; Admin Dose 1 CAP; Start 08/24/18 at 13:00 Albumin Human 100 ml @ 100 mls/hr WITH DIALYSIS PRN IV SBP <90 DURING DIALYSIS; Start 08/26/18 at 12:00 Sodium Chloride (NS) -To prime the dialy... DIRECTED FOR HD PRN IV HD; Start 08/26/18 at 12:00 Nitroglycerin (Nitroglycerin 2% Oint) 0.5 inch Q6 PRN TD CHEST PAIN; Start 08/27/18 at 00:30 Lorazepam (Ativan) 1 mg Q4H PRN IV ANXIETY Last administered on 08/27/18 04:14; Admin Dose 1 MG; Start 08/27/18 at 04:30 Eye Lubricant (Artificial Tears Oph) 2 drop Q2H PRN BOTH EYES dry eyes; Start 08/28/18 at 01:30 Epoetin Jarrell-epbx (RETACRIT(esrd)) 10,000 unit MoWeFr@1700 SC Last administered on 09/19/18 17:22; Admin Dose 10,000 UNIT; Start 08/29/18 at 17:00 Morphine Sulfate (morphine) 3 mg Q1H PRN GTB PAIN NOT RELIEVED BY OTHERS Last administered on 09/09/18at 09:45; Admin Dose 3 MG; Start 08/29/18 at 12:00 Lansoprazole (Prevacid) 30 mg DAILY@06 GTB Last administered on 09/20/18 06:04; Admin Dose 30 MG; Start 08/30/18 at 06:00 Oxycodone HCl (Roxicodone) 5 mg Q4H PRN PO MODERATE PAIN LEVEL 4-6 Last administered on 09/19/18 13:00; Admin Dose 5 MG; Start 09/01/18 at 10:00 Miscellaneous Information (* Miscellaneous Pharmacy Order) ASPIRIN ORDER WILL ... Q12 XX ; Start 09/05/18 at 10:00 Ipratropium [place] (Atrovent 0.02% (Neb)) 0.5 mg Q6HWA RESP THERAPY HHN Last administered on 09/20/18 07:53; Admin Dose 0.5 MG; Start 09/07/18 at 20:00 Albuterol (Proventil 0.083% (Neb)) 2.5 mg Q6H RESP THERAPY HHN Last administered on 09/20/18 07:53; Admin Dose 2.5 MG; Start 09/07/18 at 20:00 Multivit/Ca Carb/ B Cmplx/FA/Prenat (Shalonda-Jaylen) 1 tab DAILY GTB Last administered on 09/20/18 08:29; Admin Dose 1 TAB; Start 09/08/18 at 09:00 Heparin Sodium (Porcine) (Heparin (5000 Units/1ml)) 5,000 unit BID SC Last administered on 09/20/18 08:45; Admin Dose 5,000 UNIT; Start 09/08/18 at 21:00 Hydralazine HCl (Apresoline) 10 mg Q2 PRN IV ELEVATED SYSTOLIC BP Last administered on 09/16/18 15:50; Admin Dose 10 MG; Start 09/12/18 at 16:30 Carvedilol (Coreg) 50 mg BID PO Last administered on 09/20/18 08:30; Admin Dose 50 MG; Start 09/14/18 at 21:00 Amlodipine Besylate (Norvasc) 2.5 mg DAILY GTB Last administered on 09/20/18 08:30; Admin Dose 2.5 MG; Start 09/19/18 at 09:30 Magnesium Sulfate 50 ml @ 25 mls/hr ONCE ONCE IVPB ; Start 09/20/18 at 09:00; Stop 09/20/18 at 10:59 THOMAS RILEY MD September 20, 2018 10:41
--- NOTE | 2018-09-20 11:21 | CONS ---
Assessment/Plan Assessment/Plan Assessment/Plan (Daily) Assessment and recommendations; 1. Patient status post CPR with cardiac arrest status post tracheostomy. Doing very well on T-piece. 2. Status post coronary intervention. 3. Renal failure, on hemodialysis. 4. Status post treatment for bilateral pneumonia. 5. Status post tracheostomy and G-tube placement. Continue current supportive care. PMV as tolerated. Consider discharge to correction/rehab center. Consultation Date/Type/Reason Admit Date/Time Aug 04, 2018 at 23:10 Initial Consult Date 08/17/18 Type of Consult Pulmonary/critical care Requesting Provider: HARPAL AGGARWAL MD Date/Time of Note DATE: 09/20/18 TIME: 11:19 24 HR Interval Summary Free Text/Dictation Patient's condition is stable. Remains awake and alert. Doing very well on T- piece. General exam; young female, awake alert, currently in no distress. Exam/Review of Systems Exam Vitals Vital Signs Date Temp Pulse Resp B/P (MAP) Pulse Ox O2 O2 Flow FiO2 Time Delivery Rate 09/20/18 98.5 90 18 158/89 99 08:14 (112) 09/20/18 Aerosol 5.0 28 07:55 Intake and Output 09/19/18 09/19/18 09/20/18 1515:00 23:00 07:00 IntakeIntake Total 900 ml 400 ml BalanceBalance 900 ml 400 ml Exam H EENT exam; supple neck, no JVD. No lymphadenopathy. Midline trachea. No thyromegaly. Tracheostomy in place. Patient has fair dentition. Chest exam; clear to auscultation. S1-S2 audible, no murmurs. Abdomen exam; soft, nontender. G-tube in place. Bowel sounds audible. Extremity exam; no peripheral edema clubbing. [employer] M[employer]ER exam; no focal deficit. Results Result Diagram: 09/20/18 0555 09/20/18 0555 Results 24hrs Laboratory Tests Test 09/20/18 05:55 White Blood Count 7.6 Red Blood Count 3.52 L Hemoglobin 10.1 L Hematocrit 33.5 L Mean Corpuscular Volume 95.2 Mean Corpuscular Hemoglobin 28.7 L Mean Corpuscular Hemoglobin Concent 30.1 L Red Cell Distribution Width 16.2 H Platelet Count 146 Mean Platelet Volume 11.8 H Immature Granulocytes % 0.400 Neutrophils % 47.0 Lymphocytes % 39.3 Monocytes % 8.3 Eosinophils % 4.5 Basophils % 0.5 Nucleated Red Blood Cells % 0.0 Immature Granulocytes # 0.030 Neutrophils # 3.6 Lymphocytes # 3.0 H Monocytes # 0.6 Eosinophils # 0.3 Basophils # 0.0 Nucleated Red Blood Cells # 0.0 Sodium Level 139 Potassium Level 3.8 Chloride Level 104 Carbon Dioxide Level 24 Anion Gap 11 Blood Urea Nitrogen 32 #H Creatinine 1.32 H Glucose Level 85 Calcium Level 10.0 Phosphorus Level 6.8 H Magnesium Level 1.4 L Albumin 3.4 Medications Medication Current Medications Atorvastatin Calcium (Lipitor) 80 mg DAILY@21 PO Last administered on 09/19/18 20:41; Admin Dose 80 MG; Start 08/05/18 at 21:00 Miscellaneous Information 1 ea NOTE XX ; Start 08/05/18 at 09:00 Acetaminophen (Tylenol Liquid) 650 mg Q4H PRN PO ELEVATED TEMPERATURE Last administered on 09/01/18 00:29; Admin Dose 650 MG; Start 08/05/18 at 11:00 Aspirin (Aspirin) 81 mg DAILY NGT Last administered on 09/20/18 08:34; Admin Dose 81 MG; Start 08/06/18 at 09:00 Zinc Sulfate (Zinc Sulfate) 220 mg DAILY NGT Last administered on 09/20/18 08:29; Admin Dose 220 MG; Start 08/09/18 at 09:00 Folic Acid (Folic Acid) 1 mg DAILY NGT Last administered on 09/20/18 08:29; Admin Dose 1 MG; Start 08/09/18 at 09:00 Ascorbic Acid (Vitamin C) 500 mg DAILY NGT Last administered on 09/20/18 08:30; Admin Dose 500 MG; Start 08/09/18 at 09:00 IV Flush (NS 10 ml) 10 ml PRN PRN IV IV PROTOCOL; Start 08/11/18 at 16:30 Heparin Sodium (Porcine) (Heparin (1000 Units/ml)) 3,000 unit PRN PRN CATHETER Dialysis Last administered on 09/09/18 22:35; Admin Dose 3,000 UNIT; Start 08/12/18 at 14:30 Labetalol HCl (Labetalol) 10 mg Q4H PRN IV ELEVATED SYSTOLIC BP > 170 Last administered on 08/20/18 16:54; Admin Dose 10 MG; Start 08/14/18 at 19:00 Clopidogrel Bisulfate (plaVIX) 75 mg DAILY NGT Last administered on 09/20/18 08:30; Admin Dose 75 MG; Start 08/18/18 at 13:30 Rifaximin (Xifaxan) 200 mg TID PO Last administered on 09/20/18 08:30; Admin Dose 200 MG; Start 08/19/18 at 13:00 Sevelamer Carbonate (Renvela) 2.4 gm WITH MEALS GTB Last administered on 09/20/18 08:30; Admin Dose 2.4 GM; Start 08/23/18 at 11:30 Ondansetron HCl (Zofran Inj) 4 mg Q4H PRN IV NAUSEA AND/OR VOMITING Last administered on 09/09/18 11:21; Admin Dose 4 MG; Start 08/23/18 at 14:30 Lactobacillus Acidophilus/ Rhamnosus (Culturelle) 1 cap TID GTB Last administered on 09/20/18 08:30; Admin Dose 1 CAP; Start 08/24/18 at 13:00 Albumin Human 100 ml @ 100 mls/hr WITH DIALYSIS PRN IV SBP <90 DURING DIALYSIS; Start 08/26/18 at 12:00 Sodium Chloride (NS) -To prime the dialy... DIRECTED FOR HD PRN IV HD; Start 08/26/18 at 12:00 Nitroglycerin (Nitroglycerin 2% Oint) 0.5 inch Q6 PRN TD CHEST PAIN; Start 08/27/18 at 00:30 Lorazepam (Ativan) 1 mg Q4H PRN IV ANXIETY Last administered on 08/27/18 04:14; Admin Dose 1 MG; Start 08/27/18 at 04:30 Eye Lubricant (Artificial Tears Oph) 2 drop Q2H PRN BOTH EYES dry eyes; Start 08/28/18 at 01:30 Epoetin Jarrell-epbx (RETACRIT(esrd)) 10,000 unit MoWeFr@1700 SC Last administered on 09/19/18 17:22; Admin Dose 10,000 UNIT; Start 08/29/18 at 17:00 Morphine Sulfate (morphine) 3 mg Q1H PRN GTB PAIN NOT RELIEVED BY OTHERS Last administered on 09/09/18 09:45; Admin Dose 3 MG; Start 08/29/18 at 12:00 Lansoprazole (Prevacid) 30 mg DAILY@06 GTB Last administered on 09/20/18 06:04; Admin Dose 30 MG; Start 08/30/18 at 06:00 Oxycodone HCl (Roxicodone) 5 mg Q4H PRN PO MODERATE PAIN LEVEL 4-6 Last administered on 09/19/18 13:00; Admin Dose 5 MG; Start 09/01/18 at 10:00 Miscellaneous Information (* Miscellaneous Pharmacy Order) ASPIRIN ORDER WILL ... Q12 XX ; Start 09/05/18 at 10:00 Ipratropium [place] (Atrovent 0.02% (Neb)) 0.5 mg Q6HWA RESP THERAPY HHN Last administered on 09/20/18 07:53; Admin Dose 0.5 MG; Start 09/07/18 at 20:00 Albuterol (Proventil 0.083% (Neb)) 2.5 mg Q6H RESP THERAPY HHN Last administered on 09/20/18 07:53; Admin Dose 2.5 MG; Start 09/07/18 at 20:00 Multivit/Ca Carb/ B Cmplx/FA/Prenat (Shalonda-Jaylen) 1 tab DAILY GTB Last administered on 09/20/18 08:29; Admin Dose 1 TAB; Start 09/08/18 at 09:00 Heparin Sodium (Porcine) (Heparin (5000 Units/1ml)) 5,000 unit BID SC Last administered on 09/20/18 08:45; Admin Dose 5,000 UNIT; Start 09/08/18 at 21:00 Hydralazine HCl (Apresoline) 10 mg Q2 PRN IV ELEVATED SYSTOLIC BP Last administered on 09/16/18 15:50; Admin Dose 10 MG; Start 09/12/18 at 16:30 Carvedilol (Coreg) 50 mg BID PO Last administered on 09/20/18 08:30; Admin Dose 50 MG; Start 09/14/18 at 21:00 Amlodipine Besylate (Norvasc) 2.5 mg DAILY GTB Last administered on 09/20/18 08:30; Admin Dose 2.5 MG; Start 09/19/18 at 09:30 QARNI,MARIAA September 20, 2018 11:21
[2018-09-20] MEDS: ATORVASTATIN 80 MG TAB PO SCH (20:56)
[2018-09-21] VITALS (12 sets, daily range): BP systolic 134–155; BP diastolic 66–88; PULSE 87–100; RESP 16–18
[2018-09-21] MEDS: ALBUTEROL 0.083% (NEB) 2.5 MG/3 ML AMP HHN SCH ×4 (01:07→20:10)
[2018-09-21] MEDS: LANSOPRAZOLE 30 MG CAP GTB SCH (05:56)
[2018-09-21] MEDS: LACTOBACILLUS RHAMNOSUS CAP GTB SCH ×3 (08:18→21:09)
[2018-09-21] MEDS: ASPIRIN 81 MG TAB NGT SCH (08:18)
[2018-09-21] MEDS: CLOPIDOGREL 75 MG TAB NGT SCH (08:18)
[2018-09-21] MEDS: SEVELAMER CARBONATE 2.4 GM PKT GTB SCH ×3 (08:18→16:39)
[2018-09-21] MEDS: RIFAXIMIN 200 MG TAB PO SCH ×3 (08:18→21:09)
[2018-09-21] MEDS: FOLIC ACID 1 MG TAB NGT SCH (08:18)
[2018-09-21] MEDS: AMLODIPINE 2.5 MG TAB GTB SCH (08:18)
[2018-09-21] MEDS: ZINC SULFATE 220 MG CAP NGT SCH (08:18)
[2018-09-21] MEDS: MULTIVIT/CA CARB/B CMPLX/FA TAB GTB SCH (08:18)
[2018-09-21] MEDS: ASCORBIC ACID 500 MG TAB NGT SCH (08:18)
[2018-09-21] MEDS: ARTIFICIAL TEARS 15 ML OPH BOTH EYES PRN (08:20)
[2018-09-21] MEDS: HEPARIN 5,000 UNIT/1 ML VIAL SC SCH ×2 (09:05→21:23)
--- NOTE | 2018-09-21 09:11 | PN ---
DATE: 09/21/2018 SUBJECTIVE: The patient is stable, no events overnight. OBJECTIVE: VITAL SIGNS: Blood pressure is 155/88, pulse 90, respirations 18, temperature 98.2. HEENT: Head is normocephalic. NECK: Supple. HEART: Regular rate. LUNGS: Show diminished breath sounds at the base. ABDOMEN: Soft, nontender to palpation without rebound or guarding. EXTREMITIES: Negative for clubbing, cyanosis, no edema. DERMATOLOGIC: No rashes. MUSCULOSKELETAL: No joint effusion. NEUROLOGIC: No change in exam. MEDICATIONS: Reviewed. LABORATORY DATA: Reviewed. ASSESSMENT AND PLAN: 1. Nonoliguric acute kidney injury with previously normal baseline creatinine. Etiology of acute ki dney injury is secondary to acute tubular necrosis. The patient is status post hemodialysis, has jona wn excellent recovery. Continue to monitor. Continue current treatment plan, supportive care, renal ly dose all medicines. 2. Anemia. Monitor hemoglobin and hematocrit levels, no need for Epogen at this time. 4. Mineral bone disorder. The patient remains on phosphate binders. We will continue to monitor ca lcium, phosphorus levels. We will deescalate phosphate binders as warranted. 5. Hypomagnesemia. Continue to monitor and replete. 6. Chronic respiratory failure, status post tracheostomy, stable. 7. Coronary artery disease, status post percutaneous coronary intervention. Continue medical manage ment. 8. Encephalopathy, improved. 9. Dysphagia. Continue oral diet. 10. Status post shock. 11. Status post cardiac arrest. 12. Acute cerebrovascular accident. Continue medical management. Dictated By: BHUMI REDDY DO NR/NTS Conf#: [id number] DID#: [id number] CC: DANIAL TUCKER MD; THOMAS RILEY MD; LAUREN GREWAL MD;*EndCC*
[2018-09-21] MEDS: IPRATROPIUM (NEB) 0.5 MG/2.5 ML AMP HHN SCH ×3 (09:34→20:10)
--- NOTE | 2018-09-21 09:47 | CONS ---
Assessment/Plan Assessment/Plan Assessment/Plan (Daily) Assessment and recommendations; 1. Patient admitted for cardiac arrest status post hypothermia protocol with marked overall clinical improvement. 2. Status post tracheostomy, doing very well on T-piece. 3. Status post coronary intervention. 4. Renal failure. 5. Status post treatment for pneumonia. 6. CVA per MRI of the brain, patient however not exhibiting any clinical neurological deficit. Continue current supportive care. PMV as tolerated. Transfer to rehab center. Consultation Date/Type/Reason Admit Date/Time Aug 04, 2018 at 23:10 Initial Consult Date 08/17/18 Type of Consult Pulmonary/critical care Requesting Provider: HARPAL AGGARWAL MD Date/Time of Note DATE: 09/21/18 TIME: 09:45 24 HR Interval Summary Free Text/Dictation Patient's condition is stable. Remains awake and alert. General exam; young lady, awake alert, on T-piece via tracheostomy, currently in no distress. Exam/Review of Systems Exam Vitals Vital Signs Date Temp Pulse Resp B/P (MAP) Pulse Ox O2 O2 Flow FiO2 Time Delivery Rate 09/21/18 71 16 100 Aerosol 8.0 28 09:37 09/21/18 98.2 155/88 07:42 (110) Intake and Output 09/20/18 09/20/18 09/21/18 1515:00 23:00 07:00 IntakeIntake Total 300 ml BalanceBalance 300 ml Exam HEENT exam; supple neck, no JVD. No lymphadenopathy. Midline trachea. No thyromegaly. Tracheostomy place. Attached to T-piece. Chest exam; clear to auscultation. S1-S2 audible, no murmurs. Regular rhythm. Abdomen exam; soft, nontender. No organomegaly. G-tube in place. Bowel sounds audible. Extremity exam; no peripheral edema. [employer] SU[employer] exam; no focal deficit. Results Result Diagram: 09/21/18 0606 09/21/18 0606 Results 24hrs Laboratory Tests Test 09/21/18 06:06 White Blood Count 6.4 Red Blood Count 3.45 L Hemoglobin 9.9 L Hematocrit 32.9 L Mean Corpuscular Volume 95.4 Mean Corpuscular Hemoglobin 28.7 L Mean Corpuscular Hemoglobin Concent 30.1 L Red Cell Distribution Width 16.0 H Platelet Count 162 Mean Platelet Volume 11.9 H Immature Granulocytes % 0.500 H Neutrophils % 44.5 Lymphocytes % 41.8 Monocytes % 8.0 Eosinophils % 4.4 Basophils % 0.8 Nucleated Red Blood Cells % 0.0 Immature Granulocytes # 0.030 Neutrophils # 2.8 Lymphocytes # 2.7 Monocytes # 0.5 Eosinophils # 0.3 Basophils # 0.1 Nucleated Red Blood Cells # 0.0 Sodium Level 140 Potassium Level 3.8 Chloride Level 105 Carbon Dioxide Level 23 Anion Gap 12 Blood Urea Nitrogen 28 H Creatinine 1.22 H Glucose Level 84 Calcium Level 9.9 Phosphorus Level 6.3 H Magnesium Level 1.7 Albumin 3.4 Medications Medication Current Medications Atorvastatin Calcium (Lipitor) 80 mg DAILY@21 PO Last administered on 09/20/18 20:56; Admin Dose 80 MG; Start 08/05/18 at 21:00 Miscellaneous Information 1 ea NOTE XX ; Start 08/05/18 at 09:00 Acetaminophen (Tylenol Liquid) 650 mg Q4H PRN PO ELEVATED TEMPERATURE Last administered on 09/01/18 00:29; Admin Dose 650 MG; Start 08/05/18 at 11:00 Aspirin (Aspirin) 81 mg DAILY NGT Last administered on 09/21/18 08:18; Admin Dose 81 MG; Start 08/06/18 at 09:00 Zinc Sulfate (Zinc Sulfate) 220 mg DAILY NGT Last administered on 09/21/18 08:18; Admin Dose 220 MG; Start 08/09/18 at 09:00 Folic Acid (Folic Acid) 1 mg DAILY NGT Last administered on 09/21/18 08:18; Admin Dose 1 MG; Start 08/09/18 at 09:00 Ascorbic Acid (Vitamin C) 500 mg DAILY NGT Last administered on 09/21/18 08:18; Admin Dose 500 MG; Start 08/09/18 at 09:00 IV Flush (NS 10 ml) 10 ml PRN PRN IV IV PROTOCOL; Start 08/11/18 at 16:30 Heparin Sodium (Porcine) (Heparin (1000 Units/ml)) 3,000 unit PRN PRN CATHETER Dialysis Last administered on 09/09/18at 22:35; Admin Dose 3,000 UNIT; Start 08/12/18 at 14:30 Labetalol HCl (Labetalol) 10 mg Q4H PRN IV ELEVATED SYSTOLIC BP > 170 Last administered on 08/20/18 16:54; Admin Dose 10 MG; Start 08/14/18 at 19:00 Clopidogrel Bisulfate (plaVIX) 75 mg DAILY NGT Last administered on 09/21/18 08:18; Admin Dose 75 MG; Start 08/18/18 at 13:30 Rifaximin (Xifaxan) 200 mg TID PO Last administered on 09/21/18 08:18; Admin Dose 200 MG; Start 08/19/18 at 13:00 Sevelamer Carbonate (Renvela) 2.4 gm WITH MEALS GTB Last administered on 09/21/18 08:18; Admin Dose 2.4 GM; Start 08/23/18 at 11:30 Ondansetron HCl (Zofran Inj) 4 mg Q4H PRN IV NAUSEA AND/OR VOMITING Last administered on 09/09/18 11:21; Admin Dose 4 MG; Start 08/23/18 at 14:30 Lactobacillus Acidophilus/ Rhamnosus (Culturelle) 1 cap TID GTB Last administered on 09/21/18 08:18; Admin Dose 1 CAP; Start 08/24/18 at 13:00 Albumin Human 100 ml @ 100 mls/hr WITH DIALYSIS PRN IV SBP <90 DURING DIALYSIS; Start 08/26/18 at 12:00 Sodium Chloride (NS) -To prime the dialy... DIRECTED FOR HD PRN IV HD; Start 08/26/18 at 12:00 Nitroglycerin (Nitroglycerin 2% Oint) 0.5 inch Q6 PRN TD CHEST PAIN; Start 08/27/18 at 00:30 Lorazepam (Ativan) 1 mg Q4H PRN IV ANXIETY Last administered on 08/27/18 04:14; Admin Dose 1 MG; Start 08/27/18 at 04:30 Eye Lubricant (Artificial Tears Oph) 2 drop Q2H PRN BOTH EYES dry eyes Last administered on 09/21/18 08:20; Admin Dose 2 DROP; Start 08/28/18 at 01:30 Morphine Sulfate (morphine) 3 mg Q1H PRN GTB PAIN NOT RELIEVED BY OTHERS Last administered on 09/09/18 09:45; Admin Dose 3 MG; Start 08/29/18 at 12:00 Lansoprazole (Prevacid) 30 mg DAILY@06 GTB Last administered on 09/21/18 05:56; Admin Dose 30 MG; Start 08/30/18 at 06:00 Oxycodone HCl (Roxicodone) 5 mg Q4H PRN PO MODERATE PAIN LEVEL 4-6 Last administered on 09/19/18 13:00; Admin Dose 5 MG; Start 09/01/18 at 10:00 Miscellaneous Information (* Miscellaneous Pharmacy Order) ASPIRIN ORDER WILL ... Q12 XX ; Start 09/05/18 at 10:00 Ipratropium [place] (Atrovent 0.02% (Neb)) 0.5 mg Q6HWA RESP THERAPY HHN Last administered on 09/21/18 09:34; Admin Dose 0.5 MG; Start 09/07/18 at 20:00 Albuterol (Proventil 0.083% (Neb)) 2.5 mg Q6H RESP THERAPY HHN Last administered on 09/21/18 09:35; Admin Dose 2.5 MG; Start 09/07/18 at 20:00 Multivit/Ca Carb/ B Cmplx/FA/Prenat (Shalonda-Jaylen) 1 tab DAILY GTB Last administered on 09/21/18 08:18; Admin Dose 1 TAB; Start 09/08/18 at 09:00 Heparin Sodium (Porcine) (Heparin (5000 Units/1ml)) 5,000 unit BID SC Last administered on 09/21/18 09:05; Admin Dose 5,000 UNIT; Start 09/08/18 at 21:00 Hydralazine HCl (Apresoline) 10 mg Q2 PRN IV ELEVATED SYSTOLIC BP Last administered on 09/16/18 15:50; Admin Dose 10 MG; Start 09/12/18 at 16:30 Carvedilol (Coreg) 50 mg BID PO Last administered on 09/21/18 08:18; Admin Dose 50 MG; Start 09/14/18 at 21:00 Amlodipine Besylate (Norvasc) 2.5 mg DAILY GTB Last administered on 09/21/18 08:18; Admin Dose 2.5 MG; Start 09/19/18 at 09:30 MARIAA KINSEY September 21, 2018 09:47
--- NOTE | 2018-09-21 10:55 | PN ---
Date/Time of Note Date/Time of Note DATE: 09/21/18 TIME: 10:55 Assessment/Plan VTE Prophylaxis Risk score (from Nsg)>0 risk: 3 SCD applied (from Nsg): Yes Pharmacological prophylaxis: other Lines/Catheters IV Catheter Type (from Nrsg): PICC Line Central line still needed: Yes Urinary Cath still in place: No Assessment/Plan Assessment/Plan 1. Acute hypoxic respiratory failure- resolved - Pulm on board and appreciate recommendations. - CM on board for assistance with arranging ENT follow up as outpatient for laser procedure due to presents of stricture/adhesions 2. CAD s/p PCI x3- stable - Cardiology recommendations appreciated. Will need to continue aspirin for life and DAPT for 1 year - s/p emergent Cath 08/05 with successful PTCA and stenting of proximal and mid LAD, PTCA of the large first diagonal and thrombectomy of the LAD - Repeat PCI on 08/07 performed with stenting to LCx - Repeat PCI on 09/04 with stenting ostial/proximal right coronary artery 3. Acute toxic/metabolic encephalopathy- resolved - Patient back to baseline and doing well. - Neurology input appreciated and will reconsult if needed 4. Bilateral CVA - PT/OT on board - Found on MRI, likely thromboembolic secondary to cardiopulmonary arrest per neurology - Continue on aspirin/Plavix and Lipitor 5. Anemia, blood loss and renal disease- stable - Hgb remains stable, transfuse as needed 6. Bilateral Pneumonia- resolved - ID on board and appreciate recommendations. Monitor off antibiotics 7. Septic shock secondary to PNA and bacteremia- resolved - Blood cultures and sputum culture results noted. - ID on board 8. Renal failure now off HD - Nephrology on board and appreciate recommendations. Cr continues to show signs of recovery 9. S/p V-fib cardiac arrest secondary to STEMI - Completed hypothermia protocol 10. Disposition - Remains medically stable for discharge once accepted to SNF. CM on board for discharge planning Result Diagram: 09/21/18 0606 09/21/18 0606 Results 24hrs Laboratory Tests Test 09/21/18 06:06 White Blood Count 6.4 Red Blood Count 3.45 L Hemoglobin 9.9 L Hematocrit 32.9 L Mean Corpuscular Volume 95.4 Mean Corpuscular Hemoglobin 28.7 L Mean Corpuscular Hemoglobin Concent 30.1 L Red Cell Distribution Width 16.0 H Platelet Count 162 Mean Platelet Volume 11.9 H Immature Granulocytes % 0.500 H Neutrophils % 44.5 Lymphocytes % 41.8 Monocytes % 8.0 Eosinophils % 4.4 Basophils % 0.8 Nucleated Red Blood Cells % 0.0 Immature Granulocytes # 0.030 Neutrophils # 2.8 Lymphocytes # 2.7 Monocytes # 0.5 Eosinophils # 0.3 Basophils # 0.1 Nucleated Red Blood Cells # 0.0 Sodium Level 140 Potassium Level 3.8 Chloride Level 105 Carbon Dioxide Level 23 Anion Gap 12 Blood Urea Nitrogen 28 H Creatinine 1.22 H Glucose Level 84 Calcium Level 9.9 Phosphorus Level 6.3 H Magnesium Level 1.7 Albumin 3.4 Subjective 24 Hr Interval Summary Free Text/Dictation Patient denies any acute issues. Ambulated in the nicole today and tolerated well. Exam/Review of Systems Exam Vitals Vital Signs Date Temp Pulse Resp B/P (MAP) Pulse Ox O2 O2 Flow FiO2 Time Delivery Rate 09/21/18 71 16 100 Aerosol 8.0 28 09:37 09/21/18 98.2 155/88 07:42 (110) Intake and Output 09/20/18 09/20/18 09/21/18 1515:00 23:00 07:00 IntakeIntake Total 300 ml BalanceBalance 300 ml Exam General: Patient is laying in bed and answers questions appropriately Neck: Supple, nontender, midline, trach in place Respiratory: Clear to auscultation bilaterally. no wheezing Cardiovascular: regular rate and rhythm, no obvious murmurs Gastrointestinal: soft, non-tender to palpation, bowel sounds heard. Skin: No new skin lesions Results Results 24hrs Laboratory Tests Test 09/21/18 06:06 White Blood Count 6.4 Red Blood Count 3.45 L Hemoglobin 9.9 L Hematocrit 32.9 L Mean Corpuscular Volume 95.4 Mean Corpuscular Hemoglobin 28.7 L Mean Corpuscular Hemoglobin Concent 30.1 L Red Cell Distribution Width 16.0 H Platelet Count 162 Mean Platelet Volume 11.9 H Immature Granulocytes % 0.500 H Neutrophils % 44.5 Lymphocytes % 41.8 Monocytes % 8.0 Eosinophils % 4.4 Basophils % 0.8 Nucleated Red Blood Cells % 0.0 Immature Granulocytes # 0.030 Neutrophils # 2.8 Lymphocytes # 2.7 Monocytes # 0.5 Eosinophils # 0.3 Basophils # 0.1 Nucleated Red Blood Cells # 0.0 Sodium Level 140 Potassium Level 3.8 Chloride Level 105 Carbon Dioxide Level 23 Anion Gap 12 Blood Urea Nitrogen 28 H Creatinine 1.22 H Glucose Level 84 Calcium Level 9.9 Phosphorus Level 6.3 H Magnesium Level 1.7 Albumin 3.4 Medications Medication Current Medications Atorvastatin Calcium (Lipitor) 80 mg DAILY@21 PO Last administered on 09/20/18 20:56; Admin Dose 80 MG; Start 08/05/18 at 21:00 Miscellaneous Information 1 ea NOTE XX ; Start 08/05/18 at 09:00 Acetaminophen (Tylenol Liquid) 650 mg Q4H PRN PO ELEVATED TEMPERATURE Last administered on 09/01/18 00:29; Admin Dose 650 MG; Start 08/05/18 at 11:00 Aspirin (Aspirin) 81 mg DAILY NGT Last administered on 09/21/18 08:18; Admin Dose 81 MG; Start 08/06/18 at 09:00 Zinc Sulfate (Zinc Sulfate) 220 mg DAILY NGT Last administered on 09/21/18 08:18; Admin Dose 220 MG; Start 08/09/18 at 09:00 Folic Acid (Folic Acid) 1 mg DAILY NGT Last administered on 09/21/18 08:18; Admin Dose 1 MG; Start 08/09/18 at 09:00 Ascorbic Acid (Vitamin C) 500 mg DAILY NGT Last administered on 09/21/18 08:18; Admin Dose 500 MG; Start 08/09/18 at 09:00 IV Flush (NS 10 ml) 10 ml PRN PRN IV IV PROTOCOL; Start 08/11/18 at 16:30 Heparin Sodium (Porcine) (Heparin (1000 Units/ml)) 3,000 unit PRN PRN CATHETER Dialysis Last administered on 09/09/18 22:35; Admin Dose 3,000 UNIT; Start 08/12/18 at 14:30 Labetalol HCl (Labetalol) 10 mg Q4H PRN IV ELEVATED SYSTOLIC BP > 170 Last administered on 08/20/18 16:54; Admin Dose 10 MG; Start 08/14/18 at 19:00 Clopidogrel Bisulfate (plaVIX) 75 mg DAILY NGT Last administered on 09/21/18 08:18; Admin Dose 75 MG; Start 08/18/18 at 13:30 Rifaximin (Xifaxan) 200 mg TID PO Last administered on 09/21/18 08:18; Admin Dose 200 MG; Start 08/19/18 at 13:00 Sevelamer Carbonate (Renvela) 2.4 gm WITH MEALS GTB Last administered on 09/21/18 08:18; Admin Dose 2.4 GM; Start 08/23/18 at 11:30 Ondansetron HCl (Zofran Inj) 4 mg Q4H PRN IV NAUSEA AND/OR VOMITING Last administered on 09/09/18 11:21; Admin Dose 4 MG; Start 08/23/18 at 14:30 Lactobacillus Acidophilus/ Rhamnosus (Culturelle) 1 cap TID GTB Last administered on 09/21/18 08:18; Admin Dose 1 CAP; Start 08/24/18 at 13:00 Albumin Human 100 ml @ 100 mls/hr WITH DIALYSIS PRN IV SBP <90 DURING DIALYSIS; Start 08/26/18 at 12:00 Sodium Chloride (NS) -To prime the dialy... DIRECTED FOR HD PRN IV HD; Start 08/26/18 at 12:00 Nitroglycerin (Nitroglycerin 2% Oint) 0.5 inch Q6 PRN TD CHEST PAIN; Start 08/27/18 at 00:30 Lorazepam (Ativan) 1 mg Q4H PRN IV ANXIETY Last administered on 08/27/18 04:14; Admin Dose 1 MG; Start 08/27/18 at 04:30 Eye Lubricant (Artificial Tears Oph) 2 drop Q2H PRN BOTH EYES dry eyes Last administered on 09/21/18 08:20; Admin Dose 2 DROP; Start 08/28/18 at 01:30 Morphine Sulfate (morphine) 3 mg Q1H PRN GTB PAIN NOT RELIEVED BY OTHERS Last administered on 09/09/18 09:45; Admin Dose 3 MG; Start 08/29/18 at 12:00 Lansoprazole (Prevacid) 30 mg DAILY@06 GTB Last administered on 09/21/18 05:56; Admin Dose 30 MG; Start 08/30/18 at 06:00 Oxycodone HCl (Roxicodone) 5 mg Q4H PRN PO MODERATE PAIN LEVEL 4-6 Last administered on 09/19/18 13:00; Admin Dose 5 MG; Start 09/01/18 at 10:00 Miscellaneous Information (* Miscellaneous Pharmacy Order) ASPIRIN ORDER WILL ... Q12 XX ; Start 09/05/18 at 10:00 Ipratropium [place] (Atrovent 0.02% (Neb)) 0.5 mg Q6HWA RESP THERAPY HHN Last administered on 09/21/18 09:34; Admin Dose 0.5 MG; Start 09/07/18 at 20:00 Albuterol (Proventil 0.083% (Neb)) 2.5 mg Q6H RESP THERAPY HHN Last administ ered on 09/21/18 09:35; Admin Dose 2.5 MG; Start 09/07/18 at 20:00 Multivit/Ca Carb/ B Cmplx/FA/Prenat (Shalonda-Jaylen) 1 tab DAILY GTB Last administered on 09/21/18 08:18; Admin Dose 1 TAB; Start 09/08/18 at 09:00 Heparin Sodium (Porcine) (Heparin (5000 Units/1ml)) 5,000 unit BID SC Last administered on 09/21/18 09:05; Admin Dose 5,000 UNIT; Start 09/08/18 at 21:00 Hydralazine HCl (Apresoline) 10 mg Q2 PRN IV ELEVATED SYSTOLIC BP Last administered on 09/16/18 15:50; Admin Dose 10 MG; Start 09/12/18 at 16:30 Carvedilol (Coreg) 50 mg BID PO Last administered on 09/21/18 08:18; Admin Dose 50 MG; Start 09/14/18 at 21:00 Amlodipine Besylate (Norvasc) 2.5 mg DAILY GTB Last administered on 09/21/18 08:18; Admin Dose 2.5 MG; Start 09/19/18 at 09:30 THOMAS RILEY MD September 21, 2018 10:55
--- NOTE | 2018-09-21 15:33 | CONS ---
Consult Date/Type/Reason Admit Date/Time Aug 04, 2018 at 23:10 Initial Consult Date 08/05/18 Type of Consultation: cv Requesting Provider: HARPAL AGGARWAL MD Date/Time of Note DATE: 09/21/18 TIME: 15:32 Subjective Interventional cardiology follow-up progress note Subjective: Events noted discussed with the staff and tele was reviewed. no V tachycardia or V fibrillation. BP is stable now she denies any cp to me now She has less shortness of breath at this point tolerating weaning so far events noted s/p PCI 100% occluded LAD 08/04 S/P PCI LCX/ OM s/p trach 08/22/18 PCI RCA 09/04/18 Objective: General: Obese female no acute distress s/p trach on O2 HEENT: NC/AT. pupils are equal. round. NECK: . no stridor. s/p trach on oxygen CV: RRR. systolic murmur; no gallop or rubs. PULM: no wheezing mild rhonchi. GI: Obese SOFT, NT, ND, no rebound or guarding s/pPEG Extremity: trace B/L LE edema. no clubbing. neuro: awake and follows commands Psych: Calm now rectal: deferred EKG August 06, 2018 was personally within normal sinus rhythm. T wave inversions anterior and inferior leads ECG 08/07: NSR ST T abn c/w ant/lat ischemia CXR 08/14: Nonspecific patchy bilateral pulmonary opacity, mildly improved on the right. No pneumothorax. Endotracheal tube, nasogastric tube, and right-sided PICC line remain in place. Stable mild cardiomegaly. The osseous structures are remarkable for degenerative enthesopathy of the spine. Chest x-ray done August 06 shows:No evidence for active cardiopulmonary disease. CXR 08/19: Diffuse bilateral reticular nodular infiltrates unchanged. Question bronchopneumonia versus failure. CXR 08/28/18: Allowing for support structures overlying the right base, no significant change. Left mid and bibasilar air space opacities/infiltrates are again present. Lines and tubes are stable ECHO personally reviewed Normal left ventricular cavity size. Normal left ventricular wall thickness. Eje ction fraction is visually estimated at 55-65 %. Normal appearance of the mitral valve. Mitral valve is not well visualized. No mitral valve regurgitation is seen. Aortic valve not well visualized. No aortic regurgitation. Normal appearance of the tricuspid valve. Unable to obtain RVSP due to minimal presence of tricuspid regurgitation. No evidence of tricuspid regurgitation. Normal pericardium with no significant pericardial effusion. suboptimal study. Objective Vitals Vital Signs Date Temp Pulse Resp B/P (MAP) Pulse Ox O2 O2 Flow FiO2 Time Delivery Rate 09/21/18 5.0 28 15:01 09/21/18 80 16 100 Aerosol 14:44 T Tube 09/21/18 98.3 134/77 11:06 (96) Intake and Output 09/20/18 09/20/18 09/21/18 1515:00 23:00 07:00 IntakeIntake Total 300 ml BalanceBalance 300 ml Results/Medications Result Diagram: 09/21/1860509/21/18605 Results 24 hrs Laboratory Tests Test 09/21/18 06:06 White Blood Count 6.4 Red Blood Count 3.45 L Hemoglobin 9.9 L Hematocrit 32.9 L Mean Corpuscular Volume 95.4 Mean Corpuscular Hemoglobin 28.7 L Mean Corpuscular Hemoglobin Concent 30.1 L Red Cell Distribution Width 16.0 H Platelet Count 162 Mean Platelet Volume 11.9 H Immature Granulocytes % 0.500 H Neutrophils % 44.5 Lymphocytes % 41.8 Monocytes % 8.0 Eosinophils % 4.4 Basophils % 0.8 Nucleated Red Blood Cells % 0.0 Immature Granulocytes # 0.030 Neutrophils # 2.8 Lymphocytes # 2.7 Monocytes # 0.5 Eosinophils # 0.3 Basophils # 0.1 Nucleated Red Blood Cells # 0.0 Sodium Level 140 Potassium Level 3.8 Chloride Level 105 Carbon Dioxide Level 23 Anion Gap 12 Blood Urea Nitrogen 28 H Creatinine 1.22 H Glucose Level 84 Calcium Level 9.9 Phosphorus Level 6.3 H Magnesium Level 1.7 Albumin 3.4 Medications Current Medications Atorvastatin Calcium (Lipitor) 80 mg DAILY@21 PO Last administered on 09/20/18at 20:56; Admin Dose 80 MG; Start 08/05/18 at 21:00 Miscellaneous Information 1 ea NOTE XX ; Start 08/05/18 at 09:00 Acetaminophen (Tylenol Liquid) 650 mg Q4H PRN PO ELEVATED TEMPERATURE Last administered on 09/01/18at 00:29; Admin Dose 650 MG; Start 08/05/18 at 11:00 Aspirin (Aspirin) 81 mg DAILY NGT Last administered on 09/21/18 08:18; Admin Dose 81 MG; Start 08/06/18 at 09:00 Zinc Sulfate (Zinc Sulfate) 220 mg DAILY NGT Last administered on 09/21/18 08:18; Admin Dose 220 MG; Start 08/09/18 at 09:00 Folic Acid (Folic Acid) 1 mg DAILY NGT Last administered on 09/21/18 08:18; Admin Dose 1 MG; Start 08/09/18 at 09:00 Ascorbic Acid (Vitamin C) 500 mg DAILY NGT Last administered on 09/21/18 08:18; Admin Dose 500 MG; Start 08/09/18 at 09:00 IV Flush (NS 10 ml) 10 ml PRN PRN IV IV PROTOCOL; Start 08/11/18 at 16:30 Heparin Sodium (Porcine) (Heparin (1000 Units/ml)) 3,000 unit PRN PRN CATHETER Dialysis Last administered on 09/09/18 22:35; Admin Dose 3,000 UNIT; Start 08/12/18 at 14:30 Labetalol HCl (Labetalol) 10 mg Q4H PRN IV ELEVATED SYSTOLIC BP > 170 Last administered on 08/20/18 16:54; Admin Dose 10 MG; Start 08/14/18 at 19:00 Clopidogrel Bisulfate (plaVIX) 75 mg DAILY NGT Last administered on 09/21/18 08:18; Admin Dose 75 MG; Start 08/18/18 at 13:30 Rifaximin (Xifaxan) 200 mg TID PO Last administered on 09/21/18 12:13; Admin Do se 200 MG; Start 08/19/18 at 13:00 Sevelamer Carbonate (Renvela) 2.4 gm WITH MEALS GTB Last administered on 09/21/18 12:13; Admin Dose 2.4 GM; Start 08/23/18 at 11:30 Ondansetron HCl (Zofran Inj) 4 mg Q4H PRN IV NAUSEA AND/OR VOMITING Last administered on 09/09/18 11:21; Admin Dose 4 MG; Start 08/23/18 at 14:30 Lactobacillus Acidophilus/ Rhamnosus (Culturelle) 1 cap TID GTB Last administered on 09/21/18 12:13; Admin Dose 1 CAP; Start 08/24/18 at 13:00 Albumin Human 100 ml @ 100 mls/hr WITH DIALYSIS PRN IV SBP <90 DURING DIALYSIS; Start 08/26/18 at 12:00 Sodium Chloride (NS) -To prime the dialy... DIRECTED FOR HD PRN IV HD; Start 08/26/18 at 12:00 Nitroglycerin (Nitroglycerin 2% Oint) 0.5 inch Q6 PRN TD CHEST PAIN; Start 08/27/18 at 00:30 Lorazepam (Ativan) 1 mg Q4H PRN IV ANXIETY Last administered on 08/27/18 04:14; Admin Dose 1 MG; Start 08/27/18 at 04:30 Eye Lubricant (Artificial Tears Oph) 2 drop Q2H PRN BOTH EYES dry eyes Last administered on 09/21/18 08:20; Admin Dose 2 DROP; Start 08/28/18 at 01:30 Morphine Sulfate (morphine) 3 mg Q1H PRN GTB PAIN NOT RELIEVED BY OTHERS Last administered on 09/09/18 09:45; Admin Dose 3 MG; Start 08/29/18 at 12:00 Lansoprazole (Prevacid) 30 mg DAILY@06 GTB Last administered on 09/21/18 05:56; Admin Dose 30 MG; Start 08/30/18 at 06:00 Oxycodone HCl (Roxicodone) 5 mg Q4H PRN PO MODERATE PAIN LEVEL 4-6 Last administered on 09/19/18 13:00; Admin Dose 5 MG; Start 09/01/18 at 10:00 Miscellaneous Information (* Miscellaneous Pharmacy Order) ASPIRIN ORDER WILL ... Q12 XX ; Start 09/05/18 at 10:00 Ipratropium [place] (Atrovent 0.02% (Neb)) 0.5 mg Q6HWA RESP THERAPY HHN Last administered on 09/21/18 14:41; Admin Dose 0.5 MG; Start 09/07/18 at 20:00 Albuterol (Proventil 0.083% (Neb)) 2.5 mg Q6H RESP THERAPY HHN Last adminis tered on 09/21/18 14:41; Admin Dose 2.5 MG; Start 09/07/18 at 20:00 Multivit/Ca Carb/ B Cmplx/FA/Prenat (Shalonda-Jaylen) 1 tab DAILY GTB Last administered on 09/21/18 08:18; Admin Dose 1 TAB; Start 09/08/18 at 09:00 Heparin Sodium (Porcine) (Heparin (5000 Units/1ml)) 5,000 unit BID SC Last administered on 09/21/18 09:05; Admin Dose 5,000 UNIT; Start 09/08/18 at 21:00 Hydralazine HCl (Apresoline) 10 mg Q2 PRN IV ELEVATED SYSTOLIC BP Last administered on 09/16/18 15:50; Admin Dose 10 MG; Start 09/12/18 at 16:30 Carvedilol (Coreg) 50 mg BID PO Last administered on 09/21/18 08:18; Admin Dose 50 MG; Start 09/14/18 at 21:00 Amlodipine Besylate (Norvasc) 2.5 mg DAILY GTB Last administered on 09/21/18 08:18; Admin Dose 2.5 MG; Start 09/19/18 at 09:30 Assessment/Plan Hospital Course (Demo Recall) 1. s/p V. fib cardiac arrest 2. Acute myocardial infarction 3. Status post emergent PCI of the 100% occluded LAD as well as PTCA of the diagonal and PCI LCX/ OM , sp PCI RCA 09/04 4. Diabetes 5. Respiratory failure status post trach: on weanign 6. Hypertension 7. Renal failure : acute on chronic: resolved now 8. Likely history of congestive heart failure 9. Dyslipidemia 10. Encephalopathy: improved now 11. Morbid obesity 12. Anemia 13. elevated LFT 14. fever, bacteremia pneumonia 15. Malnutrition, anasarca . 16. septic shock and staph aureus bacteremia 17. oropharyngeal bleeding 18. CVA Recommendations: Continue with aspirin/ plavix Antibiotic management as per ID recommendation f/u renal fx. it has significantly improved now weaning as tolerated. We will defer to pulmonary team Continue with Coreg 50 bid . cont NORVASC Transfusion prn given her severe anemia and NV/ VF tele monitoring DVT prophylaxis replace Mg PT as tolerated Thank you for his referral. We will continue to follow along with you LOIS JOHNSON MD [facility] LOIS JOHNSON MD September 21, 2018 15:33
[2018-09-21] MEDS ORDERED: MAGNESIUM SULFATE 2 GM/50 ML 50 ML IVPB ONE (16:00)
[2018-09-21] MEDS: ATORVASTATIN 80 MG TAB PO SCH (21:09)
[2018-09-22] VITALS (11 sets, daily range): BP systolic 137–170; BP diastolic 81–96; PULSE 76–97; RESP 18–19
[2018-09-22] MEDS ORDERED: morphine 4 MG/ML VIAL IV STA (01:06)
[2018-09-22] MEDS: ALBUTEROL 0.083% (NEB) 2.5 MG/3 ML AMP HHN SCH ×4 (01:29→20:07)
[2018-09-22] MEDS: LANSOPRAZOLE 30 MG CAP GTB SCH (05:24)
[2018-09-22] MEDS: SEVELAMER CARBONATE 2.4 GM PKT GTB SCH ×3 (08:43→18:21)
[2018-09-22] MEDS: ZINC SULFATE 220 MG CAP NGT SCH (08:44)
[2018-09-22] MEDS: ASPIRIN 81 MG TAB NGT SCH (08:44)
[2018-09-22] MEDS: RIFAXIMIN 200 MG TAB PO SCH ×3 (08:44→20:48)
[2018-09-22] MEDS: AMLODIPINE 2.5 MG TAB GTB SCH (08:45)
[2018-09-22] MEDS: CLOPIDOGREL 75 MG TAB NGT SCH (08:45)
[2018-09-22] MEDS: LACTOBACILLUS RHAMNOSUS CAP GTB SCH ×2 (08:45→12:37)
[2018-09-22] MEDS: MULTIVIT/CA CARB/B CMPLX/FA TAB GTB SCH (08:45)
[2018-09-22] MEDS: FOLIC ACID 1 MG TAB NGT SCH (08:46)
[2018-09-22] MEDS: ASCORBIC ACID 500 MG TAB NGT SCH (08:46)
[2018-09-22] MEDS: IPRATROPIUM (NEB) 0.5 MG/2.5 ML AMP HHN SCH ×3 (09:06→20:07)
[2018-09-22] MEDS: HEPARIN 5,000 UNIT/1 ML VIAL SC SCH ×2 (09:32→20:56)
--- NOTE | 2018-09-22 11:29 | CONS ---
Assessment/Plan Assessment/Plan Hospital Course (Demo Recall) 1. Nonoliguric acute kidney injury with previously normal baseline creatinine. Etiology of acute kidney injury is secondary to acute tubular necrosis. The patient is status post hemodialysis, has shown excellent recovery. Continue to monitor. Continue current treatment plan, supportive care, renally dose all medicines. 2. Anemia. Monitor hemoglobin and hematocrit levels, no need for Epogen at this time. 4. Mineral bone disorder. The patient remains on phosphate binders, will stop soon. We will continue to monitor calcium, phosphorus levels. 5. Hypomagnesemia. replaced 6. Chronic respiratory failure, status post tracheostomy, stable. 7. Coronary artery disease, status post percutaneous coronary intervention. Continue medical management. 8. Encephalopathy, improved. 9. Dysphagia. Continue oral diet. 10. Status post shock. 11. Status post cardiac arrest. 12. Acute cerebrovascular accident. Continue medical management. Consultation Date/Type/Reason Admit Date/Time Aug 04, 2018 at 23:10 Initial Consult Date 08/17/18 Requesting Provider: HARPAL AGGARWAL MD Date/Time of Note DATE: 09/22/18 TIME: 11:28 24 HR Interval Summary Free Text/Dictation denies shortness of breath trach collar to aerosol adequate urine output d/w rn gen nad cv rrr pulm ctab abd soft, nd, nt +bs ext: no edema Exam/Review of Systems Exam Vitals Vital Signs Date Temp Pulse Resp B/P (MAP) Pulse Ox O2 O2 Flow FiO2 Time Delivery Rate 09/22/18 5.0 28 09:06 09/22/18 92 18 92 Aerosol 09:06 Aerosol Mask 09/22/18 98.1 153/96 08:21 (115) Intake and Output 09/21/18 09/21/18 09/22/18 1515:00 23:00 07:00 IntakeIntake Total 200 ml BalanceBalance 200 ml Results Result Diagram: 09/22/18 0615 09/22/18 0615 Results 24hrs Laboratory Tests Test 09/22/18 06:15 White Blood Count 6.2 Red Blood Count 3.50 L Hemoglobin 10.1 L Hematocrit 33.5 L Mean Corpuscular Volume 95.7 Mean Corpuscular Hemoglobin 28.9 L Mean Corpuscular Hemoglobin Concent 30.1 L Red Cell Distribution Width 15.7 H Platelet Count 170 Mean Platelet Volume 11.4 H Immature Granulocytes % 0.300 Neutrophils % 43.4 Lymphocytes % 43.2 Monocytes % 7.8 Eosinophils % 4.5 Basophils % 0.8 Nucleated Red Blood Cells % 0.0 Immature Granulocytes # 0.020 Neutrophils # 2.7 Lymphocytes # 2.7 Monocytes # 0.5 Eosinophils # 0.3 Basophils # 0.1 Nucleated Red Blood Cells # 0.0 Sodium Level 139 Potassium Level 3.9 Chloride Level 105 Carbon Dioxide Level 24 Anion Gap 10 Blood Urea Nitrogen 25 H Creatinine 1.22 H Glucose Level 92 Calcium Level 9.9 Phosphorus Level 6.0 H Magnesium Level 2.0 Albumin 3.4 Medications Medication Current Medications Atorvastatin Calcium (Lipitor) 80 mg DAILY@21 PO Last administered on 09/21/18 21:09; Admin Dose 80 MG; Start 08/05/18 at 21:00 Miscellaneous Information 1 ea NOTE XX ; Start 08/05/18 at 09:00 Acetaminophen (Tylenol Liquid) 650 mg Q4H PRN PO ELEVATED TEMPERATURE Last administered on 09/01/18at 00:29; Admin Dose 650 MG; Start 08/05/18 at 11:00 Aspirin (Aspirin) 81 mg DAILY NGT Last administered on 09/22/18 08:44; Admin Dose 81 MG; Start 08/06/18 at 09:00 Zinc Sulfate (Zinc Sulfate) 220 mg DAILY NGT Last administered on 09/22/18 08:44; Admin Dose 220 MG; Start 08/09/18 at 09:00 Folic Acid (Folic Acid) 1 mg DAILY NGT Last administered on 09/22/18 08:46; Admin Dose 1 MG; Start 08/09/18 at 09:00 Ascorbic Acid (Vitamin C) 500 mg DAILY NGT Last administered on 09/22/18 08:46; Admin Dose 500 MG; Start 08/09/18 at 09:00 IV Flush (NS 10 ml) 10 ml PRN PRN IV IV PROTOCOL; Start 08/11/18 at 16:30 Heparin Sodium (Porcine) (Heparin (1000 Units/ml)) 3,000 unit PRN PRN CATHETER Dialysis Last administered on 09/09/18at 22:35; Admin Dose 3,000 UNIT; Start 08/12/18 at 14:30 Labetalol HCl (Labetalol) 10 mg Q4H PRN IV ELEVATED SYSTOLIC BP > 170 Last administered on 08/20/18 16:54; Admin Dose 10 MG; Start 08/14/18 at 19:00 Clopidogrel Bisulfate (plaVIX) 75 mg DAILY NGT Last administered on 09/22/18 08:45; Admin Dose 75 MG; Start 08/18/18 at 13:30 Rifaximin (Xifaxan) 200 mg TID PO Last administered on 09/22/18 08:44; Admin Dose 200 MG; Start 08/19/18 at 13:00 Sevelamer Carbonate (Renvela) 2.4 gm WITH MEALS GTB Last administered on 09/22/18 08:43; Admin Dose 2.4 GM; Start 08/23/18 at 11:30 Ondansetron HCl (Zofran Inj) 4 mg Q4H PRN IV NAUSEA AND/OR VOMITING Last administered on 09/09/18 11:21; Admin Dose 4 MG; Start 08/23/18 at 14:30 Lactobacillus Acidophilus/ Rhamnosus (Culturelle) 1 cap TID GTB Last administered on 09/22/18 08:45; Admin Dose 1 CAP; Start 08/24/18 at 13:00 Albumin Human 100 ml @ 100 mls/hr WITH DIALYSIS PRN IV SBP <90 DURING DIALYSIS; Start 08/26/18 at 12:00 Sodium Chloride (NS) -To prime the dialy... DIRECTED FOR HD PRN IV HD; Start 08/26/18 at 12:00 Nitroglycerin (Nitroglycerin 2% Oint) 0.5 inch Q6 PRN TD CHEST PAIN; Start 08/27/18 at 00:30 Lorazepam (Ativan) 1 mg Q4H PRN IV ANXIETY Last administered on 08/27/18 04:14; Admin Dose 1 MG; Start 08/27/18 at 04:30 Eye Lubricant (Artificial Tears Oph) 2 drop Q2H PRN BOTH EYES dry eyes Last administered on 09/21/18 08:20; Admin Dose 2 DROP; Start 08/28/18 at 01:30 Morphine Sulfate (morphine) 3 mg Q1H PRN GTB PAIN NOT RELIEVED BY OTHERS Last administered on 09/09/18 09:45; Admin Dose 3 MG; Start 08/29/18 at 12:00 Lansoprazole (Prevacid) 30 mg DAILY@06 GTB Last administered on 09/22/18 05:24; Admin Dose 30 MG; Start 08/30/18 at 06:00 Oxycodone HCl (Roxicodone) 5 mg Q4H PRN PO MODERATE PAIN LEVEL 4-6 Last administered on 09/19/18 13:00; Admin Dose 5 MG; Start 09/01/18 at 10:00 Miscellaneous Information (* Miscellaneous Pharmacy Order) ASPIRIN ORDER WILL ... Q12 XX ; Start 09/05/18 at 10:00 Ipratropium [place] (Atrovent 0.02% (Neb)) 0.5 mg Q6HWA RESP THERAPY HHN Last administered on 09/22/18 09:06; Admin Dose 0.5 MG; Start 09/07/18 at 20:00 Albuterol (Proventil 0.083% (Neb)) 2.5 mg Q6H RESP THERAPY HHN Last administered on 09/22/18 09:06; Admin Dose 2.5 MG; Start 09/07/18 at 20:00 Multivit/Ca Carb/ B Cmplx/FA/Prenat (Shalonda-Jaylen) 1 tab DAILY GTB Last administered on 09/22/18 08:45; Admin Dose 1 TAB; Start 09/08/18 at 09:00 Heparin Sodium (Porcine) (Heparin (5000 Units/1ml)) 5,000 unit BID SC Last administered on 09/22/18 09:32; Admin Dose 5,000 UNIT; Start 09/08/18 at 21:00 Hydralazine HCl (Apresoline) 10 mg Q2 PRN IV ELEVATED SYSTOLIC BP Last administered on 09/16/18 15:50; Admin Dose 10 MG; Start 09/12/18 at 16:30 Carvedilol (Coreg) 50 mg BID PO Last administered on 09/22/18 08:45; Admin Dose 50 MG; Start 09/14/18 at 21:00 Amlodipine Besylate (Norvasc) 2.5 mg DAILY GTB Last administered on 09/22/18 08:45; Admin Dose 2.5 MG; Start 09/19/18 at 09:30 JED PEDROZA MD September 22, 2018 11:29
--- NOTE | 2018-09-22 13:07 | PN ---
Date/Time of Note Date/Time of Note DATE: 09/22/18 TIME: 12:58 Assessment/Plan VTE Prophylaxis Risk score (from Nsg)>0 risk: 3 SCD applied (from Nsg): Yes Pharmacological prophylaxis: other Lines/Catheters IV Catheter Type (from Nrsg): PICC Line Central line still needed: Yes Urinary Cath still in place: No Assessment/Plan Assessment/Plan 1. Acute hypoxic respiratory failure- resolving - Patient doing well on trach collar but requiring 5L O2. - Pulm on board and appreciate recommendations. Will touch base based regarding thoughts on sending patient home given still with high O2 requirement - CM on board for assistance with arranging ENT follow up as outpatient for laser procedure due to presents of stricture/adhesions 2. CAD s/p PCI x3- stable - Cardiology recommendations appreciated. Will need to continue aspirin for life and DAPT for 1 year - s/p emergent Cath 08/05 with successful PTCA and stenting of proximal and mid LAD, PTCA of the large first diagonal and thrombectomy of the LAD - Repeat PCI on 08/07 performed with stenting to LCx - Repeat PCI on 09/04 with stenting ostial/proximal right coronary artery 3. Acute toxic/metabolic encephalopathy- resolved - Patient back to baseline and doing well. - Neurology input appreciated and will reconsult if needed 4. Bilateral CVA - PT/OT on board - Found on MRI, likely thromboembolic secondary to cardiopulmonary arrest per neurology - Continue on aspirin/Plavix and Lipitor 5. Anemia, blood loss and renal disease- stable - Hgb remains stable, transfuse as needed 6. Bilateral Pneumonia- resolved - ID on board and appreciate recommendations. Monitor off antibiotics 7. Septic shock secondary to PNA and bacteremia- resolved - Blood cultures and sputum culture results noted. - ID on board 8. Renal failure now off HD - Nephrology on board and appreciate recommendations. Cr continues to show signs of recovery 9. S/p V-fib cardiac arrest secondary to STEMI - Completed hypothermia protocol 10. Disposition - Discussed with patient discharge planning and requesting to go home. Will touch base with Pulm on thought for when safe for home d/c given still on 5L O2. Will continue optimizing patient prior to discharge home Result Diagram: 09/22/18 0615 09/22/18 0615 Results 24hrs Laboratory Tests Test 09/22/18 06:15 White Blood Count 6.2 Red Blood Count 3.50 L Hemoglobin 10.1 L Hematocrit 33.5 L Mean Corpuscular Volume 95.7 Mean Corpuscular Hemoglobin 28.9 L Mean Corpuscular Hemoglobin Concent 30.1 L Red Cell Distribution Width 15.7 H Platelet Count 170 Mean Platelet Volume 11.4 H Immature Granulocytes % 0.300 Neutrophils % 43.4 Lymphocytes % 43.2 Monocytes % 7.8 Eosinophils % 4.5 Basophils % 0.8 Nucleated Red Blood Cells % 0.0 Immature Granulocytes # 0.020 Neutrophils # 2.7 Lymphocytes # 2.7 Monocytes # 0.5 Eosinophils # 0.3 Basophils # 0.1 Nucleated Red Blood Cells # 0.0 Sodium Level 139 Potassium Level 3.9 Chloride Level 105 Carbon Dioxide Level 24 Anion Gap 10 Blood Urea Nitrogen 25 H Creatinine 1.22 H Glucose Level 92 Calcium Level 9.9 Phosphorus Level 6.0 H Magnesium Level 2.0 Albumin 3.4 Subjective 24 Hr Interval Summary Free Text/Dictation Patient denies any acute issues. Discussed if she progresses well with physical therapy and no further acute issues, will arrange for home discharge. Exam/Review of Systems Exam Vitals Vital Signs Date Temp Pulse Resp B/P (MAP) Pulse Ox O2 O2 Flow FiO2 Time Delivery Rate 09/22/18 83 12:12 09/22/18 97.7 18 137/85 98 Trach 11:49 (102) Collar 09/22/18 5.0 28 09:06 Intake and Output 09/21/18 09/21/18 09/22/18 1515:00 23:00 07:00 IntakeIntake Total 200 ml BalanceBalance 200 ml Exam General: Patient is laying in bed and answers questions appropriately Neck: Supple, nontender, midline, trach in place Respiratory: Clear to auscultation bilaterally. no wheezing Cardiovascular: regular rate and rhythm, no obvious murmurs Gastrointestinal: soft, non-tender to palpation, bowel sounds heard. Skin: No new skin lesions Results Results 24hrs Laboratory Tests Test 09/22/18 06:15 White Blood Count 6.2 Red Blood Count 3.50 L Hemoglobin 10.1 L Hematocrit 33.5 L Mean Corpuscular Volume 95.7 Mean Corpuscular Hemoglobin 28.9 L Mean Corpuscular Hemoglobin Concent 30.1 L Red Cell Distribution Width 15.7 H Platelet Count 170 Mean Platelet Volume 11.4 H Immature Granulocytes % 0.300 Neutrophils % 43.4 Lymphocytes % 43.2 Monocytes % 7.8 Eosinophils % 4.5 Basophils % 0.8 Nucleated Red Blood Cells % 0.0 Immature Granulocytes # 0.020 Neutrophils # 2.7 Lymphocytes # 2.7 Monocytes # 0.5 Eosinophils # 0.3 Basophils # 0.1 Nucleated Red Blood Cells # 0.0 Sodium Level 139 Potassium Level 3.9 Chloride Level 105 Carbon Dioxide Level 24 Anion Gap 10 Blood Urea Nitrogen 25 H Creatinine 1.22 H Glucose Level 92 Calcium Level 9.9 Phosphorus Level 6.0 H Magnesium Level 2.0 Albumin 3.4 Medications Medication Current Medications Atorvastatin Calcium (Lipitor) 80 mg DAILY@21 PO Last administered on 09/21/18 21:09; Admin Dose 80 MG; Start 08/05/18 at 21:00 Miscellaneous Information 1 ea NOTE XX ; Start 08/05/18 at 09:00 Acetaminophen (Tylenol Liquid) 650 mg Q4H PRN PO ELEVATED TEMPERATURE Last administered on 09/01/18 00:29; Admin Dose 650 MG; Start 08/05/18 at 11:00 Aspirin (Aspirin) 81 mg DAILY NGT Last administered on 09/22/18 08:44; Admin Dose 81 MG; Start 08/06/18 at 09:00 Zinc Sulfate (Zinc Sulfate) 220 mg DAILY NGT Last administered on 09/22/18 08:44; Admin Dose 220 MG; Start 08/09/18 at 09:00 Folic Acid (Folic Acid) 1 mg DAILY NGT Last administered on 09/22/18 08:46; Admin Dose 1 MG; Start 08/09/18 at 09:00 Ascorbic Acid (Vitamin C) 500 mg DAILY NGT Last administered on 09/22/18 08:46; Admin Dose 500 MG; Start 08/09/18 at 09:00 IV Flush (NS 10 ml) 10 ml PRN PRN IV IV PROTOCOL; Start 08/11/18 at 16:30 Heparin Sodium (Porcine) (Heparin (1000 Units/ml)) 3,000 unit PRN PRN CATHETER Dialysis Last administered on 09/09/18 22:35; Admin Dose 3,000 UNIT; Start 08/12/18 at 14:30 Labetalol HCl (Labetalol) 10 mg Q4H PRN IV ELEVATED SYSTOLIC BP > 170 Last administered on 08/20/18 16:54; Admin Dose 10 MG; Start 08/14/18 at 19:00 Clopidogrel Bisulfate (plaVIX) 75 mg DAILY NGT Last administered on 09/22/18 08:45; Admin Dose 75 MG; Start 08/18/18 at 13:30 Rifaximin (Xifaxan) 200 mg TID PO Last administered on 09/22/18 12:36; Admin Dose 200 MG; Start 08/19/18 at 13:00 Sevelamer Carbonate (Renvela) 2.4 gm WITH MEALS GTB Last administered on 09/22/18 12:36; Admin Dose 2.4 GM; Start 08/23/18 at 11:30 Ondansetron HCl (Zofran Inj) 4 mg Q4H PRN IV NAUSEA AND/OR VOMITING Last administered on 09/09/18 11:21; Admin Dose 4 MG; Start 08/23/18 at 14:30 Lactobacillus Acidophilus/ Rhamnosus (Culturelle) 1 cap TID GTB Last administered on 09/22/18 12:37; Admin Dose 1 CAP; Start 08/24/18 at 13:00 Albumin Human 100 ml @ 100 mls/hr WITH DIALYSIS PRN IV SBP <90 DURING DIALYSIS; Start 08/26/18 at 12:00 Sodium Chloride (NS) -To prime the dialy... DIRECTED FOR HD PRN IV HD; Start 08/26/18 at 12:00 Nitroglycerin (Nitroglycerin 2% Oint) 0.5 inch Q6 PRN TD CHEST PAIN; Start 08/27/18 at 00:30 Lorazepam (Ativan) 1 mg Q4H PRN IV ANXIETY Last administered on 08/27/18 04:14; Admin Dose 1 MG; Start 08/27/18 at 04:30 Eye Lubricant (Artificial Tears Oph) 2 drop Q2H PRN BOTH EYES dry eyes Last administered on 09/21/18 08:20; Admin Dose 2 DROP; Start 08/28/18 at 01:30 Morphine Sulfate (morphine) 3 mg Q1H PRN GTB PAIN NOT RELIEVED BY OTHERS Last administered on 09/09/18 09:45; Admin Dose 3 MG; Start 08/29/18 at 12:00 Lansoprazole (Prevacid) 30 mg DAILY@06 GTB Last administered on 09/22/18 05:24; Admin Dose 30 MG; Start 08/30/18 at 06:00 Oxycodone HCl (Roxicodone) 5 mg Q4H PRN PO MODERATE PAIN LEVEL 4-6 Last administered on 09/19/18 13:00; Admin Dose 5 MG; Start 09/01/18 at 10:00 Miscellaneous Information (* Miscellaneous Pharmacy Order) ASPIRIN ORDER WILL ... Q12 XX ; Start 09/05/18 at 10:00 Ipratropium [place] (Atrovent 0.02% (Neb)) 0.5 mg Q6HWA RESP THERAPY HHN Last administered on 09/22/18 09:06; Admin Dose 0.5 MG; Start 09/07/18 at 20:00 Albuterol (Proventil 0.083% (Neb)) 2.5 mg Q6H RESP THERAPY HHN Last administered on 09/22/18 09:06; Admin Dose 2.5 MG; Start 09/07/18 at 20:00 Multivit/Ca Carb/ B Cmplx/FA/Prenat (Shalonda-Jaylen) 1 tab DAILY GTB Last administered on 09/22/18 08:45; Admin Dose 1 TAB; Start 09/08/18 at 09:00 Heparin Sodium (Porcine) (Heparin (5000 Units/1ml)) 5,000 unit BID SC Last administered on 09/22/18 09:32; Admin Dose 5,000 UNIT; Start 09/08/18 at 21:00 Hydralazine HCl (Apresoline) 10 mg Q2 PRN IV ELEVATED SYSTOLIC BP Last administered on 09/16/18 15:50; Admin Dose 10 MG; Start 09/12/18 at 16:30 Carvedilol (Coreg) 50 mg BID PO Last administered on 09/22/18 08:45; Admin Dose 50 MG; Start 09/14/18 at 21:00 Amlodipine Besylate (Norvasc) 2.5 mg DAILY GTB Last administered on 09/22/18 08:45; Admin Dose 2.5 MG; Start 09/19/18 at 09:30 THOMAS RILEY MD September 22, 2018 13:07
--- NOTE | 2018-09-22 17:43 | CONS ---
Consult Date/Type/Reason Admit Date/Time Aug 04, 2018 at 23:10 Initial Consult Date 08/05/18 Type of Consultation: Pulm Requesting Provider: HARPAL AGGARWAL MD Date/Time of Note DATE: 09/22/18 TIME: 17:42 Subjective No events. Remains on 5 L via TC. Objective Vitals Vital Signs Date Temp Pulse Resp B/P (MAP) Pulse Ox O2 O2 Flow FiO2 Time Delivery Rate 09/22/18 89 16:30 09/22/18 98.5 19 159/92 99 Trach 15:58 (114) Collar 09/22/18 5.0 28 13:33 Intake and Output 09/21/18 09/21/18 09/22/18 1515:00 23:00 07:00 IntakeIntake Total 200 ml BalanceBalance 200 ml Exam HEENT: Neck supple; no JVD; no LAD: + trach CVS: RRR, S1 and S2 CHEST: Coarse BS b/l ABD: Soft, NT, + BS EXT: No c/c/e Results/Medications Result Diagram: 09/22/18 0615 09/22/18 0615 Results 24 hrs Laboratory Tests Test 09/22/18 06:15 White Blood Count 6.2 Red Blood Count 3.50 L Hemoglobin 10.1 L Hematocrit 33.5 L Mean Corpuscular Volume 95.7 Mean Corpuscular Hemoglobin 28.9 L Mean Corpuscular Hemoglobin Concent 30.1 L Red Cell Distribution Width 15.7 H Platelet Count 170 Mean Platelet Volume 11.4 H Immature Granulocytes % 0.300 Neutrophils % 43.4 Lymphocytes % 43.2 Monocytes % 7.8 Eosinophils % 4.5 Basophils % 0.8 Nucleated Red Blood Cells % 0.0 Immature Granulocytes # 0.020 Neutrophils # 2.7 Lymphocytes # 2.7 Monocytes # 0.5 Eosinophils # 0.3 Basophils # 0.1 Nucleated Red Blood Cells # 0.0 Sodium Level 139 Potassium Level 3.9 Chloride Level 105 Carbon Dioxide Level 24 Anion Gap 10 Blood Urea Nitrogen 25 H Creatinine 1.22 H Glucose Level 92 Calcium Level 9.9 Phosphorus Level 6.0 H Magnesium Level 2.0 Albumin 3.4 Medications Current Medications Atorvastatin Calcium (Lipitor) 80 mg DAILY@21 PO Last administered on 09/21/18at 21:09; Admin Dose 80 MG; Start 08/05/18 at 21:00 Miscellaneous Information 1 ea NOTE XX ; Start 08/05/18 at 09:00 Acetaminophen (Tylenol Liquid) 650 mg Q4H PRN PO ELEVATED TEMPERATURE Last ad ministered on 09/01/18at 00:29; Admin Dose 650 MG; Start 08/05/18 at 11:00 Folic Acid (Folic Acid) 1 mg DAILY NGT Last administered on 09/22/18 08:46; Admin Dose 1 MG; Start 08/09/18 at 09:00 IV Flush (NS 10 ml) 10 ml PRN PRN IV IV PROTOCOL; Start 08/11/18 at 16:30 Labetalol HCl (Labetalol) 10 mg Q4H PRN IV ELEVATED SYSTOLIC BP > 170 Last administered on 08/20/18 16:54; Admin Dose 10 MG; Start 08/14/18 at 19:00 Rifaximin (Xifaxan) 200 mg TID PO Last administered on 09/22/18 12:36; Admin Dose 200 MG; Start 08/19/18 at 13:00 Sevelamer Carbonate (Renvela) 2.4 gm WITH MEALS GTB Last administered on 09/22/18 12:36; Admin Dose 2.4 GM; Start 08/23/18 at 11:30 Ondansetron HCl (Zofran Inj) 4 mg Q4H PRN IV NAUSEA AND/OR VOMITING Last administered on 09/09/18 11:21; Admin Dose 4 MG; Start 08/23/18 at 14:30 Sodium Chloride (NS) -To prime the dialy... DIRECTED FOR HD PRN IV HD; Start 08/26/18 at 12:00 Nitroglycerin (Nitroglycerin 2% Oint) 0.5 inch Q6 PRN TD CHEST PAIN; Start 08/27/18 at 00:30 Lorazepam (Ativan) 1 mg Q4H PRN IV ANXIETY Last administered on 08/27/18 04:14; Admin Dose 1 MG; Start 08/27/18 at 04:30 Eye Lubricant (Artificial Tears Oph) 2 drop Q2H PRN BOTH EYES dry eyes Last administered on 09/21/18 08:20; Admin Dose 2 DROP; Start 08/28/18 at 01:30 Morphine Sulfate (morphine) 3 mg Q1H PRN GTB PAIN NOT RELIEVED BY OTHERS Last administered on 09/09/18 09:45; Admin Dose 3 MG; Start 08/29/18 at 12:00 Oxycodone HCl (Roxicodone) 5 mg Q4H PRN PO MODERATE PAIN LEVEL 4-6 Last administered on 09/19/18 13:00; Admin Dose 5 MG; Start 09/01/18 at 10:00 Miscellaneous Information (* Miscellaneous Pharmacy Order) ASPIRIN ORDER WILL ... Q12 XX ; Start 09/05/18 at 10:00 Ipratropium [place] (Atrovent 0.02% (Neb)) 0.5 mg Q6HWA RESP THERAPY HHN Last administered on 09/22/18 13:31; Admin Dose 0.5 MG; Start 09/07/18 at 20:00 Albuterol (Proventil 0.083% (Neb)) 2.5 mg Q6H RESP THERAPY HHN Last administered on 09/22/18 13:31; Admin Dose 2.5 MG; Start 09/07/18 at 20:00 Heparin Sodium (Porcine) (Heparin (5000 Units/1ml)) 5,000 unit BID SC Last administered on 09/22/18 09:32; Admin Dose 5,000 UNIT; Start 09/08/18 at 21:00 Hydralazine HCl (Apresoline) 10 mg Q2 PRN IV ELEVATED SYSTOLIC BP Last administered on 09/16/18 15:50; Admin Dose 10 MG; Start 09/12/18 at 16:30 Carvedilol (Coreg) 50 mg BID PO Last administered on 09/22/18 08:45; Admin Dose 50 MG; Start 09/14/18 at 21:00 Amlodipine Besylate (Norvasc) 2.5 mg DAILY PO ; Start 09/23/18 at 09:00 Aspirin (Aspirin) 81 mg DAILY PO ; Start 09/23/18 at 09:00 Clopidogrel Bisulfate (plaVIX) 75 mg DAILY PO ; Start 09/23/18 at 09:00 Lansoprazole (Prevacid) 30 mg DAILY@06 PO ; Start 09/23/18 at 06:00 Multivit/Ca Carb/ B Cmplx/FA/Prenat (Shalodna-Jaylen) 1 tab DAILY PO ; Start 09/23/18 at 09:00 Assessment/Plan Assessment/Plan (Daily) IMP: 1. s/p Cardiac arrest 2. s/p [place] 3. Chronic Resp Failure with moderate oxygen requirements 4. Pneumonia 5. Anemia 6. Renal Failure 7. Anemia RECS: 1. Continue current supportive care. 2. Obtaini CXR/BNP. Would consider diuresis. 3. TF/Free H20 LA PEARSON MD September 22, 2018 17:43
[2018-09-22] MEDS: ATORVASTATIN 80 MG TAB PO SCH (20:48)
[2018-09-22] MEDS: ARTIFICIAL TEARS 15 ML OPH BOTH EYES PRN (22:31)
[2018-09-23] VITALS (11 sets, daily range): BP systolic 125–151; BP diastolic 75–89; PULSE 83–93; RESP 18–20
[2018-09-23] MEDS: ALBUTEROL 0.083% (NEB) 2.5 MG/3 ML AMP HHN SCH ×4 (01:25→19:43)
[2018-09-23] MEDS: LANSOPRAZOLE 30 MG CAP PO SCH (06:07)
[2018-09-23] MEDS: IPRATROPIUM (NEB) 0.5 MG/2.5 ML AMP HHN SCH ×3 (07:43→19:43)
[2018-09-23] MEDS: SEVELAMER CARBONATE 2.4 GM PKT GTB SCH ×3 (08:27→18:29)
[2018-09-23] MEDS: CLOPIDOGREL 75 MG TAB PO SCH (08:28)
[2018-09-23] MEDS: MULTIVIT/CA CARB/B CMPLX/FA TAB PO SCH (08:28)
[2018-09-23] MEDS: FOLIC ACID 1 MG TAB NGT SCH (08:28)
[2018-09-23] MEDS: AMLODIPINE 2.5 MG TAB PO SCH (08:29)
[2018-09-23] MEDS: RIFAXIMIN 200 MG TAB PO SCH ×3 (08:30→20:51)
[2018-09-23] MEDS: ASPIRIN 81 MG TAB PO SCH (08:30)
[2018-09-23] MEDS: HEPARIN 5,000 UNIT/1 ML VIAL SC SCH ×2 (09:38→20:57)
--- NOTE | 2018-09-23 10:17 | PN ---
Date/Time of Note Date/Time of Note DATE: 09/23/18 TIME: 10:17 Assessment/Plan VTE Prophylaxis Risk score (from Nsg)>0 risk: 3 SCD applied (from Nsg): Yes Pharmacological prophylaxis: other Lines/Catheters IV Catheter Type (from Nrsg): PICC Line Central line still needed: Yes Urinary Cath still in place: No Assessment/Plan Assessment/Plan 1. Acute hypoxic respiratory failure- resolving - Patient doing well on trach collar and on 5L O2. Will try to taper down O2 requirement as tolerated prior to discharge home - Pulm on board and appreciate recommendations. - CM on board for assistance with arranging ENT follow up as outpatient for laser procedure due to presents of stricture/adhesions 2. CAD s/p PCI x3- stable - Cardiology recommendations appreciated. Will need to continue aspirin for life and DAPT for 1 year - s/p emergent Cath 08/05 with successful PTCA and stenting of proximal and mid LAD, PTCA of the large first diagonal and thrombectomy of the LAD - Repeat PCI on 08/07 performed with stenting to LCx - Repeat PCI on 09/04 with stenting ostial/proximal right coronary artery 3. Acute toxic/metabolic encephalopathy- resolved - Patient back to baseline 4. Bilateral CVA- no residual defect - PT/OT on board - Found on MRI, likely thromboembolic secondary to cardiopulmonary arrest per neurology - Continue on aspirin/Plavix and Lipitor 5. Anemia, blood loss and renal disease- stable - Hgb remains stable, transfuse as needed 6. Bilateral Pneumonia- resolved - ID on board and appreciate recommendations. Monitor off antibiotics 7. Septic shock secondary to PNA and bacteremia- resolved - Blood cultures and sputum culture results noted. - ID on board 8. Renal failure now off HD - Nephrology on board and appreciate recommendations. Cr continues to show signs of recovery 9. S/p V-fib cardiac arrest secondary to STEMI - Completed hypothermia protocol 10. Disposition - Patient requesting to be discharge home with HHPT. Will monitor for improvement with PT and wean down O2 requirement as tolerated prior to d/c home Result Diagram: 09/23/18 0603 09/23/18 0603 Results 24hrs Laboratory Tests Test 09/22/18 18:08 09/23/18 05:00 09/23/18 06:03 B-Type Natriuretic Peptide 1890 H Blood Gas Specimen Source Blood arterial Arterial Blood Date Drawn 09/23/2018 5:15:26 AM Arterial Blood pH 7.462 H (Temp corrected) Arterial Blood pCO2 30.9 L (Temp correct) Arterial Blood pO2 110.9 H (Temp corrected) Arterial Blood HCO3 21.6 L Arterial Blood Base Excess -1.5 Arterial Blood 98.4 H Oxygen Saturation Dajuan Test ACCEPTAB Arterial Blood Gas Left Radial Puncture Site Arterial 0.7 Blood Carboxyhemoglobin Arterial Blood Methemoglobin 0.3 Blood Gas A-a O2 Differential 52.3 H Oxyhemoglobin Percent 97.4 Blood Gas Temperature 37.0 Blood Gas Actual 20 Respiration Rate Blood Gas Modality TRACH COLLAR FiO2 28.0 Blood Gas Notified Whom MA Blood Gas Notified Time 09/23/2018 5:26:09 AM White Blood Count 5.9 Red Blood Count 3.51 L Hemoglobin 10.2 L Hematocrit 33.4 L Mean Corpuscular Volume 95.2 Mean Corpuscular Hemoglobin 29.1 Mean Corpuscular 30.5 L Hemoglobin Concent Red Cell Distribution Width 15.3 H Platelet Count 184 Mean Platelet Volume 12.1 H Immature Granulocytes % 0.300 Neutrophils % 40.8 Lymphocytes % 45.1 Monocytes % 8.0 Eosinophils % 5.3 Basophils % 0.5 Nucleated Red Blood Cells % 0.0 Immature Granulocytes # 0.020 Neutrophils # 2.4 Lymphocytes # 2.7 Monocytes # 0.5 Eosinophils # 0.3 Basophils # 0.0 Nucleated Red Blood Cells # 0.0 Sodium Level 140 Potassium Level 3.8 Chloride Level 105 Carbon Dioxide Level 24 Anion Gap 11 Blood Urea Nitrogen 22 H Creatinine 1.18 H Glucose Level 92 Calcium Level 9.8 Phosphorus Level 6.9 H Magnesium Level 1.8 Albumin 3.3 Subjective 24 Hr Interval Summary Free Text/Dictation Patient denies any current issues. Still requiring 5L O2 via trach. Exam/Review of Systems Exam Vitals Vital Signs Date Temp Pulse Resp B/P (MAP) Pulse Ox O2 O2 Flow FiO2 Time Delivery Rate 09/23/18 83 08:15 09/23/18 16 100 Aerosol 5.0 28 07:50 Aerosol Mask 09/23/18 97.6 150/86 07:19 (107) Intake and Output 09/22/18 09/22/18 09/23/18 1515:00 23:00 07:00 IntakeIntake Total 750 ml 450 ml BalanceBalance 750 ml 450 ml Exam General: Patient is laying in bed and answers questions appropriately Neck: Supple, trach in place Respiratory: Clear to auscultation bilaterally. no wheezing Cardiovascular: regular rate and rhythm, no obvious murmurs Gastrointestinal: soft, non-tender to palpation, bowel sounds heard. Skin: No new skin lesions Results Results 24hrs Laboratory Tests Test 09/22/18 18:08 09/23/18 05:00 09/23/18 06:03 B-Type Natriuretic Peptide 1890 H Blood Gas Specimen Source Blood arterial Arterial Blood Date Drawn 09/23/2018 5:15:26 AM Arterial Blood pH 7.462 H (Temp corrected) Arterial Blood pCO2 30.9 L (Temp correct) Arterial Blood pO2 110.9 H (Temp corrected) Arterial Blood HCO3 21.6 L Arterial Blood Base Excess -1.5 Arterial Blood 98.4 H Oxygen Saturation Dajuan Test ACCEPTAB Arterial Blood Gas Left Radial Puncture Site Arterial 0.7 Blood Carboxyhemoglobin Arterial Blood Methemoglobin 0.3 Blood Gas A-a O2 Differential 52.3 H Oxyhemoglobin Percent 97.4 Blood Gas Temperature 37.0 Blood Gas Actual 20 Respiration Rate Blood Gas Modality TRACH COLLAR FiO2 28.0 Blood Gas Notified Whom MA Blood Gas Notified Time 09/23/2018 5:26:09 AM White Blood Count 5.9 Red Blood Count 3.51 L Hemoglobin 10.2 L Hematocrit 33.4 L Mean Corpuscular Volume 95.2 Mean Corpuscular Hemoglobin 29.1 Mean Corpuscular 30.5 L Hemoglobin Concent Red Cell Distribution Width 15.3 H Platelet Count 184 Mean Platelet Volume 12.1 H Immature Granulocytes % 0.300 Neutrophils % 40.8 Lymphocytes % 45.1 Monocytes % 8.0 Eosinophils % 5.3 Basophils % 0.5 Nucleated Red Blood Cells % 0.0 Immature Granulocytes # 0.020 Neutrophils # 2.4 Lymphocytes # 2.7 Monocytes # 0.5 Eosinophils # 0.3 Basophils # 0.0 Nucleated Red Blood Cells # 0.0 Sodium Level 140 Potassium Level 3.8 Chloride Level 105 Carbon Dioxide Level 24 Anion Gap 11 Blood Urea Nitrogen 22 H Creatinine 1.18 H Glucose Level 92 Calcium Level 9.8 Phosphorus Level 6.9 H Magnesium Level 1.8 Albumin 3.3 Medications Medication Current Medications Atorvastatin Calcium (Lipitor) 80 mg DAILY@21 PO Last administered on 09/22/18at 20:48; Admin Dose 80 MG; Start 08/05/18 at 21:00 Miscellaneous Information 1 ea NOTE XX ; Start 08/05/18 at 09:00 Acetaminophen (Tylenol Liquid) 650 mg Q4H PRN PO ELEVATED TEMPERATURE Last administered on 09/01/18 00:29; Admin Dose 650 MG; Start 08/05/18 at 11:00 Folic Acid (Folic Acid) 1 mg DAILY NGT Last administered on 09/23/18 08:28; Admin Dose 1 MG; Start 08/09/18 at 09:00 IV Flush (NS 10 ml) 10 ml PRN PRN IV IV PROTOCOL; Start 08/11/18 at 16:30 Labetalol HCl (Labetalol) 10 mg Q4H PRN IV ELEVATED SYSTOLIC BP > 170 Last administered on 08/20/18 16:54; Admin Dose 10 MG; Start 08/14/18 at 19:00 Rifaximin (Xifaxan) 200 mg TID PO Last administered on 09/23/18 08:30; Admin Dose 200 MG; Start 08/19/18 at 13:00 Sevelamer Carbonate (Renvela) 2.4 gm WITH MEALS GTB Last administered on 09/23/18 08:27; Admin Dose 2.4 GM; Start 08/23/18 at 11:30 Ondansetron HCl (Zofran Inj) 4 mg Q4H PRN IV NAUSEA AND/OR VOMITING Last administered on 09/09/18 11:21; Admin Dose 4 MG; Start 08/23/18 at 14:30 Sodium Chloride (NS) -To prime the dialy... DIRECTED FOR HD PRN IV HD; Start 08/26/18 at 12:00 Nitroglycerin (Nitroglycerin 2% Oint) 0.5 inch Q6 PRN TD CHEST PAIN; Start 08/27/18 at 00:30 Lorazepam (Ativan) 1 mg Q4H PRN IV ANXIETY Last administered on 08/27/18 04:14; Admin Dose 1 MG; Start 08/27/18 at 04:30 Eye Lubricant (Artificial Tears Oph) 2 drop Q2H PRN BOTH EYES dry eyes Last administered on 09/22/18 22:31; Admin Dose 2 DROP; Start 08/28/18 at 01:30 Morphine Sulfate (morphine) 3 mg Q1H PRN GTB PAIN NOT RELIEVED BY OTHERS Last administered on 09/09/18 09:45; Admin Dose 3 MG; Start 08/29/18 at 12:00 Oxycodone HCl (Roxicodone) 5 mg Q4H PRN PO MODERATE PAIN LEVEL 4-6 Last administered on 09/19/18 13:00; Admin Dose 5 MG; Start 09/01/18 at 10:00 Miscellaneous Information (* Miscellaneous Pharmacy Order) ASPIRIN ORDER WILL ... Q12 XX Last administered on 09/22/18 21:00; Admin Dose 1 EA; Start 09/05/18 at 10:00 Ipratropium [place] (Atrovent 0.02% (Neb)) 0.5 mg Q6HWA RESP THERAPY HHN Last administered on 09/23/18 07:43; Admin Dose 0.5 MG; Start 09/07/18 at 20:00 Albuterol (Proventil 0.083% (Neb)) 2.5 mg Q6H RESP THERAPY HHN Last admi nistered on 09/23/18 07:43; Admin Dose 2.5 MG; Start 09/07/18 at 20:00 Heparin Sodium (Porcine) (Heparin (5000 Units/1ml)) 5,000 unit BID SC Last administered on 09/23/18 09:38; Admin Dose 5,000 UNIT; Start 09/08/18 at 21:00 Hydralazine HCl (Apresoline) 10 mg Q2 PRN IV ELEVATED SYSTOLIC BP Last a dministered on 09/16/18 15:50; Admin Dose 10 MG; Start 09/12/18 at 16:30 Carvedilol (Coreg) 50 mg BID PO Last administered on 09/23/18 08:29; Admin Dose 50 MG; Start 09/14/18 at 21:00 Amlodipine Besylate (Norvasc) 2.5 mg DAILY PO Last administered on 09/23/18 08:29; Admin Dose 2.5 MG; Start 09/23/18 at 09:00 Aspirin (Aspirin) 81 mg DAILY PO Last administered on 09/23/18 08:30; Admin Dose 81 MG; Start 09/23/18 at 09:00 Clopidogrel Bisulfate (plaVIX) 75 mg DAILY PO Last administered on 09/23/18 08:28; Admin Dose 75 MG; Start 09/23/18 at 09:00 Lansoprazole (Prevacid) 30 mg DAILY@06 PO Last administered on 09/23/18at 06:07; Admin Dose 30 MG; Start 09/23/18 at 06:00 Multivit/Ca Carb/ B Cmplx/FA/Prenat (Shalonda-Jaylen) 1 tab DAILY PO Last administered on 09/23/18at 08:28; Admin Dose 1 TAB; Start 09/23/18 at 09:00 THOMAS RILEY MD September 23, 2018 10:17
--- NOTE | 2018-09-23 11:34 | CONS ---
Assessment/Plan Assessment/Plan Hospital Course (Demo Recall) 1. Nonoliguric acute kidney injury with previously normal baseline creatinine. Etiology of acute kidney injury is secondary to acute tubular necrosis. The patient is status post hemodialysis, has shown excellent recovery. Continue to monitor. Continue current treatment plan, supportive care, renally dose all medicines. 2. Anemia. Monitor hemoglobin and hematocrit levels, no need for Epogen at this time. 4. Mineral bone disorder. The patient remains on phosphate binders. We will co ntinue to monitor calcium, phosphorus levels. 5. Hypomagnesemia. replaced 6. Chronic respiratory failure, status post tracheostomy, stable. 7. Coronary artery disease, status post percutaneous coronary intervention. Continue medical management. 8. Encephalopathy, improved. 9. Dysphagia. Continue oral diet. 10. Status post shock. 11. Status post cardiac arrest. 12. Acute cerebrovascular accident. Continue medical management. Consultation Date/Type/Reason Admit Date/Time Aug 04, 2018 at 23:10 Initial Consult Date 08/17/18 Requesting Provider: HARPAL AGGARWAL MD Date/Time of Note DATE: 09/23/18 TIME: 11:33 24 HR Interval Summary Free Text/Dictation denies shortness of breath, n/v or urinary issues d/w rn gen nad cv rrr pulm ctab abd soft, nd, nt +bs ext: no edema Exam/Review of Systems Exam Vitals Vital Signs Date Temp Pulse Resp B/P (MAP) Pulse Ox O2 O2 Flow FiO2 Time Delivery Rate 09/23/18 83 08:15 09/23/18 16 100 Aerosol 5.0 28 07:50 Aerosol Mask 09/23/18 97.6 150/86 07:19 (107) Intake and Output 09/22/18 09/22/18 09/23/18 1515:00 23:00 07:00 IntakeIntake Total 750 ml 450 ml BalanceBalance 750 ml 450 ml Results Result Diagram: 09/23/18 0603 09/23/18 0603 Results 24hrs Laboratory Tests Test 09/22/18 18:08 09/23/18 05:00 09/23/18 06:03 B-Type Natriuretic Peptide 1890 H Blood Gas Specimen Source Blood arterial Arterial Blood Date Drawn 09/23/2018 5:15:26 AM Arterial Blood pH 7.462 H (Temp corrected) Arterial Blood pCO2 30.9 L (Temp correct) Arterial Blood pO2 110.9 H (Temp corrected) Arterial Blood HCO3 21.6 L Arterial Blood Base Excess -1.5 Arterial Blood 98.4 H Oxygen Saturation Dajuan Test ACCEPTAB Arterial Blood Gas Left Radial Puncture Site Arterial 0.7 Blood Carboxyhemoglobin Arterial Blood Methemoglobin 0.3 Blood Gas A-a O2 Differential 52.3 H Oxyhemoglobin Percent 97.4 Blood Gas Temperature 37.0 Blood Gas Actual 20 Respiration Rate Blood Gas Modality TRACH COLLAR FiO2 28.0 Blood Gas Notified Whom MA Blood Gas Notified Time 09/23/2018 5:26:09 AM White Blood Count 5.9 Red Blood Count 3.51 L Hemoglobin 10.2 L Hematocrit 33.4 L Mean Corpuscular Volume 95.2 Mean Corpuscular Hemoglobin 29.1 Mean Corpuscular 30.5 L Hemoglobin Concent Red Cell Distribution Width 15.3 H Platelet Count 184 Mean Platelet Volume 12.1 H Immature Granulocytes % 0.300 Neutrophils % 40.8 Lymphocytes % 45.1 Monocytes % 8.0 Eosinophils % 5.3 Basophils % 0.5 Nucleated Red Blood Cells % 0.0 Immature Granulocytes # 0.020 Neutrophils # 2.4 Lymphocytes # 2.7 Monocytes # 0.5 Eosinophils # 0.3 Basophils # 0.0 Nucleated Red Blood Cells # 0.0 Sodium Level 140 Potassium Level 3.8 Chloride Level 105 Carbon Dioxide Level 24 Anion Gap 11 Blood Urea Nitrogen 22 H Creatinine 1.18 H Glucose Level 92 Calcium Level 9.8 Phosphorus Level 6.9 H Magnesium Level 1.8 Albumin 3.3 Medications Medication Current Medications Atorvastatin Calcium (Lipitor) 80 mg DAILY@21 PO Last administered on 09/22/18at 20:48; Admin Dose 80 MG; Start 08/05/18 at 21:00 Miscellaneous Information 1 ea NOTE XX ; Start 08/05/18 at 09:00 Acetaminophen (Tylenol Liquid) 650 mg Q4H PRN PO ELEVATED TEMPERATURE Last administered on 09/01/18at 00:29; Admin Dose 650 MG; Start 08/05/18 at 11:00 Folic Acid (Folic Acid) 1 mg DAILY NGT Last administered on 09/23/18at 08:28; Admin Dose 1 MG; Start 08/09/18 at 09:00 IV Flush (NS 10 ml) 10 ml PRN PRN IV IV PROTOCOL; Start 08/11/18 at 16:30 Labetalol HCl (Labetalol) 10 mg Q4H PRN IV ELEVATED SYSTOLIC BP > 170 Last administered on 08/20/18 16:54; Admin Dose 10 MG; Start 08/14/18 at 19:00 Rifaximin (Xifaxan) 200 mg TID PO Last administered on 09/23/18 08:30; Admin Dose 200 MG; Start 08/19/18 at 13:00 Sevelamer Carbonate (Renvela) 2.4 gm WITH MEALS GTB Last administered on 09/23/18 08:27; Admin Dose 2.4 GM; Start 08/23/18 at 11:30 Ondansetron HCl (Zofran Inj) 4 mg Q4H PRN IV NAUSEA AND/OR VOMITING Last administered on 09/09/18 11:21; Admin Dose 4 MG; Start 08/23/18 at 14:30 Sodium Chloride (NS) -To prime the dialy... DIRECTED FOR HD PRN IV HD; Start 08/26/18 at 12:00 Nitroglycerin (Nitroglycerin 2% Oint) 0.5 inch Q6 PRN TD CHEST PAIN; Start 08/27/18 at 00:30 Lorazepam (Ativan) 1 mg Q4H PRN IV ANXIETY Last administered on 08/27/18 04:14; Admin Dose 1 MG; Start 08/27/18 at 04:30 Eye Lubricant (Artificial Tears Oph) 2 drop Q2H PRN BOTH EYES dry eyes Last administered on 09/22/18 22:31; Admin Dose 2 DROP; Start 08/28/18 at 01:30 Morphine Sulfate (morphine) 3 mg Q1H PRN GTB PAIN NOT RELIEVED BY OTHERS Last administered on 09/09/18 09:45; Admin Dose 3 MG; Start 08/29/18 at 12:00 Oxycodone HCl (Roxicodone) 5 mg Q4H PRN PO MODERATE PAIN LEVEL 4-6 Last administered on 09/19/18 13:00; Admin Dose 5 MG; Start 09/01/18 at 10:00 Miscellaneous Information (* Miscellaneous Pharmacy Order) ASPIRIN ORDER WILL ... Q12 XX Last administered on 09/22/18 21:00; Admin Dose 1 EA; Start 09/05/18 at 10:00 Ipratropium [place] (Atrovent 0.02% (Neb)) 0.5 mg Q6HWA RESP THERAPY HHN Last administered on 09/23/18 07:43; Admin Dose 0.5 MG; Start 09/07/18 at 20:00 Albuterol (Proventil 0.083% (Neb)) 2.5 mg Q6H RESP THERAPY HHN Last adminis tered on 09/23/18 07:43; Admin Dose 2.5 MG; Start 09/07/18 at 20:00 Heparin Sodium (Porcine) (Heparin (5000 Units/1ml)) 5,000 unit BID SC Last administered on 09/23/18 09:38; Admin Dose 5,000 UNIT; Start 09/08/18 at 21:00 Hydralazine HCl (Apresoline) 10 mg Q2 PRN IV ELEVATED SYSTOLIC BP Last admi nistered on 09/16/18 15:50; Admin Dose 10 MG; Start 09/12/18 at 16:30 Carvedilol (Coreg) 50 mg BID PO Last administered on 09/23/18 08:29; Admin Dose 50 MG; Start 09/14/18 at 21:00 Amlodipine Besylate (Norvasc) 2.5 mg DAILY PO Last administered on 09/23/18 08:29; Admin Dose 2.5 MG; Start 09/23/18 at 09:00 Aspirin (Aspirin) 81 mg DAILY PO Last administered on 09/23/18 08:30; Admin Dose 81 MG; Start 09/23/18 at 09:00 Clopidogrel Bisulfate (plaVIX) 75 mg DAILY PO Last administered on 09/23/18 08 :28; Admin Dose 75 MG; Start 09/23/18 at 09:00 Lansoprazole (Prevacid) 30 mg DAILY@06 PO Last administered on 09/23/18 06:07; Admin Dose 30 MG; Start 09/23/18 at 06:00 Multivit/Ca Carb/ B Cmplx/FA/Prenat (Shalonda-Jaylen) 1 tab DAILY PO Last administered on 09/23/18 08:28; Admin Dose 1 TAB; Start 09/23/18 at 09:00 JED PEDROZA MD September 23, 2018 11:34
--- NOTE | 2018-09-23 14:45 | CONS ---
Consult Date/Type/Reason Admit Date/Time Aug 04, 2018 at 23:10 Initial Consult Date 08/05/18 Type of Consultation: Pulm Requesting Provider: HARPAL AGGARWAL MD Date/Time of Note DATE: 09/23/18 TIME: 14:43 Subjective Doing well on trach collar. Objective Vitals Vital Signs Date Temp Pulse Resp B/P (MAP) Pulse Ox O2 O2 Flow FiO2 Time Delivery Rate 09/23/18 93 16 100 Aerosol 5.0 14:20 T Tube 09/23/18 28 14:20 09/23/18 98.1 125/89 11:35 (101) Intake and Output 09/22/18 09/22/18 09/23/18 1414:59 22:59 06:59 IntakeIntake Total 750 ml 450 ml BalanceBalance 750 ml 450 ml Exam HEENT: Neck supple; no JVD; no LAD: + trach CVS: RRR, S1 and S2 CHEST: Coarse BS b/l ABD: Soft, NT, + BS EXT: No c/c; + edema Results/Medications Result Diagram: 09/23/18 0603 09/23/18 0603 Results 24 hrs Laboratory Tests Test 09/22/18 18:08 09/23/18 05:00 09/23/18 06:03 B-Type Natriuretic Peptide 1890 H Blood Gas Specimen Source Blood arterial Arterial Blood Date Drawn 09/23/2018 5:15:26 AM Arterial Blood pH 7.462 H (Temp corrected) Arterial Blood pCO2 30.9 L (Temp correct) Arterial Blood pO2 110.9 H (Temp corrected) Arterial Blood HCO3 21.6 L Arterial Blood Base Excess -1.5 Arterial Blood 98.4 H Oxygen Saturation Dajuan Test ACCEPTAB Arterial Blood Gas Left Radial Puncture Site Arterial 0.7 Blood Carboxyhemoglobin Arterial Blood Methemoglobin 0.3 Blood Gas A-a O2 Differential 52.3 H Oxyhemoglobin Percent 97.4 Blood Gas Temperature 37.0 Blood Gas Actual 20 Respiration Rate Blood Gas Modality TRACH COLLAR FiO2 28.0 Blood Gas Notified Whom MA Blood Gas Notified Time 09/23/2018 5:26:09 AM White Blood Count 5.9 Red Blood Count 3.51 L Hemoglobin 10.2 L Hematocrit 33.4 L Mean Corpuscular Volume 95.2 Mean Corpuscular Hemoglobin 29.1 Mean Corpuscular 30.5 L Hemoglobin Concent Red Cell Distribution Width 15.3 H Platelet Count 184 Mean Platelet Volume 12.1 H Immature Granulocytes % 0.300 Neutrophils % 40.8 Lymphocytes % 45.1 Monocytes % 8.0 Eosinophils % 5.3 Basophils % 0.5 Nucleated Red Blood Cells % 0.0 Immature Granulocytes # 0.020 Neutrophils # 2.4 Lymphocytes # 2.7 Monocytes # 0.5 Eosinophils # 0.3 Basophils # 0.0 Nucleated Red Blood Cells # 0.0 Sodium Level 140 Potassium Level 3.8 Chloride Level 105 Carbon Dioxide Level 24 Anion Gap 11 Blood Urea Nitrogen 22 H Creatinine 1.18 H Glucose Level 92 Calcium Level 9.8 Phosphorus Level 6.9 H Magnesium Level 1.8 Albumin 3.3 Medications Current Medications Atorvastatin Calcium (Lipitor) 80 mg DAILY@21 PO Last administered on 09/22/18 20:48; Admin Dose 80 MG; Start 08/05/18 at 21:00 Miscellaneous Information 1 ea NOTE XX ; Start 08/05/18 at 09:00 Acetaminophen (Tylenol Liquid) 650 mg Q4H PRN PO ELEVATED TEMPERATURE Last administered on 09/01/18 00:29; Admin Dose 650 MG; Start 08/05/18 at 11:00 Folic Acid (Folic Acid) 1 mg DAILY NGT Last administered on 09/23/18 08:28; Admin Dose 1 MG; Start 08/09/18 at 09:00 IV Flush (NS 10 ml) 10 ml PRN PRN IV IV PROTOCOL; Start 08/11/18 at 16:30 Labetalol HCl (Labetalol) 10 mg Q4H PRN IV ELEVATED SYSTOLIC BP > 170 Last administered on 08/20/18 16:54; Admin Dose 10 MG; Start 08/14/18 at 19:00 Rifaximin (Xifaxan) 200 mg TID PO Last administered on 09/23/18 12:33; Admin Dose 200 MG; Start 08/19/18 at 13:00 Sevelamer Carbonate (Renvela) 2.4 gm WITH MEALS GTB Last administered on 09/23/18 12:33; Admin Dose 2.4 GM; Start 08/23/18 at 11:30 Ondansetron HCl (Zofran Inj) 4 mg Q4H PRN IV NAUSEA AND/OR VOMITING Last administered on 09/09/18 11:21; Admin Dose 4 MG; Start 08/23/18 at 14:30 Sodium Chloride (NS) -To prime the dialy... DIRECTED FOR HD PRN IV HD; Start 08/26/18 at 12:00 Nitroglycerin (Nitroglycerin 2% Oint) 0.5 inch Q6 PRN TD CHEST PAIN; Start 08/27/18 at 00:30 Lorazepam (Ativan) 1 mg Q4H PRN IV ANXIETY Last administered on 08/27/18 04:14; Admin Dose 1 MG; Start 08/27/18 at 04:30 Eye Lubricant (Artificial Tears Oph) 2 drop Q2H PRN BOTH EYES dry eyes Last administered on 09/22/18 22:31; Admin Dose 2 DROP; Start 08/28/18 at 01:30 Morphine Sulfate (morphine) 3 mg Q1H PRN GTB PAIN NOT RELIEVED BY OTHERS Last administered on 09/09/18 09:45; Admin Dose 3 MG; Start 08/29/18 at 12:00 Oxycodone HCl (Roxicodone) 5 mg Q4H PRN PO MODERATE PAIN LEVEL 4-6 Last adminis tered on 09/19/18 13:00; Admin Dose 5 MG; Start 09/01/18 at 10:00 Miscellaneous Information (* Miscellaneous Pharmacy Order) ASPIRIN ORDER WILL ... Q12 XX Last administered on 09/22/18 21:00; Admin Dose 1 EA; Start 09/05/18 at 10:00 Ipratropium [place] (Atrovent 0.02% (Neb)) 0.5 mg Q6HWA RESP THERAPY HHN Last administered on 09/23/18 14:19; Admin Dose 0.5 MG; Start 09/07/18 at 20:00 Albuterol (Proventil 0.083% (Neb)) 2.5 mg Q6H RESP THERAPY HHN Last administered on 09/23/18 14:19; Admin Dose 2.5 MG; Start 09/07/18 at 20:00 Heparin Sodium (Porcine) (Heparin (5000 Units/1ml)) 5,000 unit BID SC Last administered on 09/23/18 09:38; Admin Dose 5,000 UNIT; Start 09/08/18 at 21:00 Hydralazine HCl (Apresoline) 10 mg Q2 PRN IV ELEVATED SYSTOLIC BP Last administered on 09/16/18 15:50; Admin Dose 10 MG; Start 09/12/18 at 16:30 Carvedilol (Coreg) 50 mg BID PO Last administered on 09/23/18 08:29; Admin Dose 50 MG; Start 09/14/18 at 21:00 Amlodipine Besylate (Norvasc) 2.5 mg DAILY PO Last administered on 09/23/18 08:29; Admin Dose 2.5 MG; Start 09/23/18 at 09:00 Aspirin (Aspirin) 81 mg DAILY PO Last administered on 09/23/18 08:30; Admin Dose 81 MG; Start 09/23/18 at 09:00 Clopidogrel Bisulfate (plaVIX) 75 mg DAILY PO Last administered on 09/23/18 08:28; Admin Dose 75 MG; Start 09/23/18 at 09:00 Lansoprazole (Prevacid) 30 mg DAILY@06 PO Last administered on 09/23/18 06:07; Admin Dose 30 MG; Start 09/23/18 at 06:00 Multivit/Ca Carb/ B Cmplx/FA/Prenat (Shalonda-Jaylen) 1 tab DAILY PO Last administered on 09/23/18 08:28; Admin Dose 1 TAB; Start 09/23/18 at 09:00 Assessment/Plan Assessment/Plan (Daily) IMP: 1. s/p Cardiac arrest 2. s/p HI 3. Chronic Resp Failure with moderate oxygen requirements 4. Pneumonia 5. Anemia 6. Renal Failure 7. Anemia RECS: 1. Continue current supportive care 2. Start lasix 20 mg IV daily; follow renal function 3. TF/Free H20 LA PEARSON MD September 23, 2018 14:45
[2018-09-23] MEDS: FUROSEMIDE 20 MG INJ IV SCH (15:41)
[2018-09-23] MEDS: ATORVASTATIN 80 MG TAB PO SCH (20:51)
[2018-09-24] VITALS (9 sets, daily range): BP systolic 138–159; BP diastolic 84–95; PULSE 80–94; RESP 18–19
[2018-09-24] MEDS: ALBUTEROL 0.083% (NEB) 2.5 MG/3 ML AMP HHN SCH ×4 (01:53→19:56)
[2018-09-24] MEDS: LANSOPRAZOLE 30 MG CAP PO SCH (05:38)
[2018-09-24] MEDS: SEVELAMER CARBONATE 2.4 GM PKT GTB SCH ×3 (08:06→17:30)
[2018-09-24] MEDS: FOLIC ACID 1 MG TAB NGT SCH (08:09)
[2018-09-24] MEDS: MULTIVIT/CA CARB/B CMPLX/FA TAB PO SCH (08:09)
[2018-09-24] MEDS: CLOPIDOGREL 75 MG TAB PO SCH (08:09)
[2018-09-24] MEDS: RIFAXIMIN 200 MG TAB PO SCH ×3 (08:09→21:40)
[2018-09-24] MEDS: ASPIRIN 81 MG TAB PO SCH (08:09)
[2018-09-24] MEDS: FUROSEMIDE 20 MG INJ IV SCH (08:11)
[2018-09-24] MEDS: AMLODIPINE 2.5 MG TAB PO SCH (08:11)
[2018-09-24] MEDS: HEPARIN 5,000 UNIT/1 ML VIAL SC SCH ×2 (08:29→21:57)
[2018-09-24] MEDS ORDERED: MAGNESIUM SULFATE 2 GM/50 ML 50 ML IVPB ONE (08:30)
--- NOTE | 2018-09-24 08:57 | PN ---
DATE: 09/24/2018 SUBJECTIVE: The patient is stable, no events overnight. No fevers, chills, nausea, or vomiting. OBJECTIVE: VITAL SIGNS: Blood pressure is 138/85, respirations 18, pulse 94, temperature 98.5. HEENT: Head is normocephalic. NECK: Supple. HEART: Regular rate. LUNGS: Show diminished breath sounds at the base. ABDOMEN: Soft, nontender to palpation without rebound or guarding. EXTREMITIES: Negative for clubbing, cyanosis. Trace edema. DERMATOLOGIC: No rashes. MUSCULOSKELETAL: No joint effusion. NEUROLOGIC: No change in exam. MEDICATIONS: Reviewed. LABORATORY DATA: Reviewed. IMAGING STUDIES: Reviewed. MICROBIOLOGY: Cultures have been reviewed. ASSESSMENT AND PLAN: 1. Nonoliguric acute kidney injury with previously normal baseline creatinine. Etiology of acute ki dney injury is secondary to acute tubular necrosis. The patient is status post hemodialysis. The kika ray's renal function has improved. Continue current treatment plans, supportive care, renally dose all medications. 2. Anemia. Monitor hemoglobin and hematocrit. No need for Epogen at this time. 3. Mineral bone disorder, monitor calcium and phosphorus levels. Continue phosphate binders. 4. Hypomagnesemia. Continue to monitor and replete as needed. 5. Chronic respiratory failure, status post trach, currently stable. 6. Coronary artery disease, status post percutaneous coronary intervention. Continue medical manage ment. 7. Encephalopathy, improved. 8. Dysphagia. The patient is tolerating oral diet. We will continue. 9. Acute cerebrovascular accident. Continue medical management. 10. Status post shock. 11. Status post cardiac arrest. Dictated By: BHUMI REDDY DO NR/NTS Conf#: [id number] DID#: [id number] CC: LAUREN GREWAL MD; THOMAS RILEY MD; DANIAL TUCKER MD;*EndCC*
[2018-09-24] MEDS: IPRATROPIUM (NEB) 0.5 MG/2.5 ML AMP HHN SCH ×3 (09:45→19:56)
--- NOTE | 2018-09-24 13:44 | PN ---
Date/Time of Note Date/Time of Note DATE: 09/24/18 TIME: 13:43 Objective Vitals Vital Signs Date Temp Pulse Resp B/P (MAP) Pulse Ox O2 O2 Flow FiO2 Time Delivery Rate 09/24/18 84 12:00 09/24/18 97.7 19 155/91 100 Trach 11:55 (112) Collar 09/24/18 5.0 28 09:11 Intake and Output 09/23/18 09/23/18 09/24/18 1515:00 23:00 07:00 IntakeIntake Total 960 ml 500 ml BalanceBalance 960 ml 500 ml Results Result Diagram: 09/24/18 0700 09/24/18 0700 Medications Medications Current Medications Atorvastatin Calcium (Lipitor) 80 mg DAILY@21 PO Last administered on 09/23/18 20:51; Admin Dose 80 MG; Start 08/05/18 at 21:00 Miscellaneous Information 1 ea NOTE XX ; Start 08/05/18 at 09:00 Acetaminophen (Tylenol Liquid) 650 mg Q4H PRN PO ELEVATED TEMPERATURE Last administered on 09/01/18 00:29; Admin Dose 650 MG; Start 08/05/18 at 11:00 Folic Acid (Folic Acid) 1 mg DAILY NGT Last administered on 09/24/18 08:09; Admin Dose 1 MG; Start 08/09/18 at 09:00 IV Flush (NS 10 ml) 10 ml PRN PRN IV IV PROTOCOL; Start 08/11/18 at 16:30 Labetalol HCl (Labetalol) 10 mg Q4H PRN IV ELEVATED SYSTOLIC BP > 170 Last administered on 08/20/18 16:54; Admin Dose 10 MG; Start 08/14/18 at 19:00 Rifaximin (Xifaxan) 200 mg TID PO Last administered on 09/24/18 12:09; Admin Dose 200 MG; Start 08/19/18 at 13:00 Sevelamer Carbonate (Renvela) 2.4 gm WITH MEALS GTB Last administered on 09/24/18 11:32; Admin Dose 2.4 GM; Start 08/23/18 at 11:30 Ondansetron HCl (Zofran Inj) 4 mg Q4H PRN IV NAUSEA AND/OR VOMITING Last ad ministered on 09/09/18 11:21; Admin Dose 4 MG; Start 08/23/18 at 14:30 Sodium Chloride (NS) -To prime the dialy... DIRECTED FOR HD PRN IV HD; Start 08/26/18 at 12:00 Nitroglycerin (Nitroglycerin 2% Oint) 0.5 inch Q6 PRN TD CHEST PAIN; Start 08/27/18 at 00:30 Lorazepam (Ativan) 1 mg Q4H PRN IV ANXIETY Last administered on 08/27/18 04:14; Admin Dose 1 MG; Start 08/27/18 at 04:30 Eye Lubricant (Artificial Tears Oph) 2 drop Q2H PRN BOTH EYES dry eyes Last administered on 09/22/18 22:31; Admin Dose 2 DROP; Start 08/28/18 at 01:30 Morphine Sulfate (morphine) 3 mg Q1H PRN GTB PAIN NOT RELIEVED BY OTHERS Last administered on 09/09/18 09:45; Admin Dose 3 MG; Start 08/29/18 at 12:00 Oxycodone HCl (Roxicodone) 5 mg Q4H PRN PO MODERATE PAIN LEVEL 4-6 Last administered on 09/19/18 13:00; Admin Dose 5 MG; Start 09/01/18 at 10:00 Miscellaneous Information (* Miscellaneous Pharmacy Order) ASPIRIN ORDER WILL ... Q12 XX Last administered on 09/22/18 21:00; Admin Dose 1 EA; Start 09/05/18 at 10:00 Ipratropium [place] (Atrovent 0.02% (Neb)) 0.5 mg Q6HWA RESP THERAPY HHN Last administered on 09/24/18 09:45; Admin Dose 0.5 MG; Start 09/07/18 at 20:00 Albuterol (Proventil 0.083% (Neb)) 2.5 mg Q6H RESP THERAPY HHN Last administered on 09/24/18 09:45; Admin Dose 2.5 MG; Start 09/07/18 at 20:00 Heparin Sodium (Porcine) (Heparin (5000 Units/1ml)) 5,000 unit BID SC Last administered on 09/24/18 08:29; Admin Dose 5,000 UNIT; Start 09/08/18 at 21:00 Hydralazine HCl (Apresoline) 10 mg Q2 PRN IV ELEVATED SYSTOLIC BP Last administered on 09/16/18 15:50; Admin Dose 10 MG; Start 09/12/18 at 16:30 Carvedilol (Coreg) 50 mg BID PO Last administered on 09/24/18 08:11; Admin Dose 50 MG; Start 09/14/18 at 21:00 Amlodipine Besylate (Norvasc) 2.5 mg DAILY PO Last administered on 09/24/18 08 :11; Admin Dose 2.5 MG; Start 09/23/18 at 09:00 Aspirin (Aspirin) 81 mg DAILY PO Last administered on 09/24/18 08:09; Admin Dose 81 MG; Start 09/23/18 at 09:00 Clopidogrel Bisulfate (plaVIX) 75 mg DAILY PO Last administered on 09/24/18 08:09; Admin Dose 75 MG; Start 09/23/18 at 09:00 Lansoprazole (Prevacid) 30 mg DAILY@06 PO Last administered on 09/24/18 05:38; Admin Dose 30 MG; Start 09/23/18 at 06:00 Multivit/Ca Carb/ B Cmplx/FA/Prenat (Shalonda-Jaylen) 1 tab DAILY PO Last administered on 09/24/18 08:09; Admin Dose 1 TAB; Start 09/23/18 at 09:00 Furosemide (Lasix) 20 mg DAILY IV Last administered on 09/24/18 08:11; Admin Dose 20 MG; Start 09/23/18 at 15:00 VTE Prophylaxis Risk score (from Ns)>0 risk: 3 SCD applied (from Ns): Yes Lines/Catheters IV Catheter Type: Aguilar in Place: No Assessment/Plan Hospital Course Subjective Patient doing well Objective Physical exam General: Patient is laying in bed and answers questions appropriately, has trach Mentation: Patient is alert and oriented 4, Head: Normocephalic atraumatic Eyes: EOMI, pupils reactive to light Neck: Supple, nontender, midline Respiratory: Clear to auscultation bilaterally Cardiovascular: regular rate, no obvious murmurs Gastrointestinal: non-tender to palpation, bowel sounds heard. Neurological: Moves all extremities spontaneously Skin: No new skin lesions Assessment/Plan 1. Acute hypoxic respiratory failure- resolving - Patient doing well on trach collar and on 5L O2. Will try to taper down O2 requirement as tolerated prior to discharge home - Pulm on board and appreciate recommendations. - CM on board for assistance with arranging ENT follow up as outpatient for laser procedure due to presents of stricture/adhesions 2. CAD s/p PCI x3- stable - Cardiology recommendations appreciated. Will need to continue aspirin for life and DAPT for 1 year - s/p emergent Cath 08/05 with successful PTCA and stenting of proximal and mid LAD, PTCA of the large first diagonal and thrombectomy of the LAD - Repeat PCI on 08/07 performed with stenting to LCx - Repeat PCI on 09/04 with stenting ostial/proximal right coronary artery 3. Acute toxic/metabolic encephalopathy- resolved - Patient back to baseline 4. Bilateral CVA- no residual defect - PT/OT on board - Found on MRI, likely thromboembolic secondary to cardiopulmonary arrest per neurology - Continue on aspirin/Plavix and Lipitor 5. Anemia, blood loss and renal disease- stable - Hgb remains stable, transfuse as needed 6. Bilateral Pneumonia- resolved - ID on board and appreciate recommendations. Monitor off antibiotics 7. Septic shock secondary to PNA and bacteremia- resolved - Blood cultures and sputum culture results noted. - ID on board 8. Renal failure now off HD - Nephrology on board and appreciate recommendations. Cr continues to show signs of recovery 9. S/p V-fib cardiac arrest secondary to STEMI - Completed hypothermia protocol 10. Disposition - arranging HHPT and finalized equipment for HHPT discharge soon. social sciences chair and CM to assist. HARPAL PEDROZA September 24, 2018 13:44
--- NOTE | 2018-09-24 14:45 | CONS ---
Consult Date/Type/Reason Admit Date/Time Aug 04, 2018 at 23:10 Initial Consult Date 08/05/18 Type of Consult Pulmonary Requesting Provider: HARPAL AGGARWAL MD Date/Time of Note DATE: 09/24/18 TIME: 14:44 Subjective Patient comfortable this morning. Objective Vital Signs Date Temp Pulse Resp B/P (MAP) Pulse Ox O2 O2 Flow FiO2 Time Delivery Rate 09/24/18 98 5.0 28 13:15 09/24/18 84 12:00 09/24/18 97.7 19 155/91 Trach 11:55 (112) Collar Intake and Output 09/23/18 09/23/18 09/24/18 1515:00 23:00 07:00 IntakeIntake Total 960 ml 500 ml BalanceBalance 960 ml 500 ml Exam GENERAL: VITAL SIGNS: per chart NECK: Supple. No JVD or lymphadenopathy. Trach site clean and intact CARDIAC EXAM: S1, S2. No added sounds or murmurs. CHEST: clear bilaterally, No added sounds, rales or wheezes ABDOMEN: Soft, nontender. No guarding or rebound. EXTREMITIES: No cyanosis, clubbing or edema. NEUROLOGIC: Generalized weakness. Vent Setting Ventilator Support Mode: SIMV Fraction of Inspired Oxygen pe: 28 Positive End Expiratory Pressu: 5.0 Results/Medications Result Diagram: 09/24/18 0700 09/24/18 0700 Results 24 hrs Laboratory Tests Test 09/24/18 07:00 White Blood Count 5.7 Red Blood Count 3.50 L Hemoglobin 10.1 L Hematocrit 33.3 L Mean Corpuscular Volume 95.1 Mean Corpuscular Hemoglobin 28.9 L Mean Corpuscular Hemoglobin Concent 30.3 L Red Cell Distribution Width 15.2 H Platelet Count 163 Mean Platelet Volume 11.7 H Immature Granulocytes % 0.300 Neutrophils % 36.0 L Lymphocytes % 51.0 Monocytes % 7.5 Eosinophils % 4.5 Basophils % 0.7 Nucleated Red Blood Cells % 0.0 Immature Granulocytes # 0.020 Neutrophils # 2.1 Lymphocytes # 2.9 Monocytes # 0.4 Eosinophils # 0.3 Basophils # 0.0 Nucleated Red Blood Cells # 0.0 Sodium Level 139 Potassium Level 3.8 Chloride Level 105 Carbon Dioxide Level 24 Anion Gap 10 Blood Urea Nitrogen 20 Creatinine 1.25 H Glucose Level 88 Calcium Level 9.8 Phosphorus Level 6.7 H Magnesium Level 1.5 L Albumin 3.3 Medications Current Medications Atorvastatin Calcium (Lipitor) 80 mg DAILY@21 PO Last administered on 09/23/18 20:51; Admin Dose 80 MG; Start 08/05/18 at 21:00 Miscellaneous Information 1 ea NOTE XX ; Start 08/05/18 at 09:00 Acetaminophen (Tylenol Liquid) 650 mg Q4H PRN PO ELEVATED TEMPERATURE Last administered on 09/01/18 00:29; Admin Dose 650 MG; Start 08/05/18 at 11:00 Folic Acid (Folic Acid) 1 mg DAILY NGT Last administered on 09/24/18 08:09; Admin Dose 1 MG; Start 08/09/18 at 09:00 IV Flush (NS 10 ml) 10 ml PRN PRN IV IV PROTOCOL; Start 08/11/18 at 16:30 Labetalol HCl (Labetalol) 10 mg Q4H PRN IV ELEVATED SYSTOLIC BP > 170 Last administered on 08/20/18 16:54; Admin Dose 10 MG; Start 08/14/18 at 19:00 Rifaximin (Xifaxan) 200 mg TID PO Last administered on 09/24/18 12:09; Admin Dose 200 MG; Start 08/19/18 at 13:00 Sevelamer Carbonate (Renvela) 2.4 gm WITH MEALS GTB Last administered on 09/24/18 11:32; Admin Dose 2.4 GM; Start 08/23/18 at 11:30 Ondansetron HCl (Zofran Inj) 4 mg Q4H PRN IV NAUSEA AND/OR VOMITING Last administered on 09/09/18 11:21; Admin Dose 4 MG; Start 08/23/18 at 14:30 Sodium Chloride (NS) -To prime the dialy... DIRECTED FOR HD PRN IV HD; Start 08/26/18 at 12:00 Nitroglycerin (Nitroglycerin 2% Oint) 0.5 inch Q6 PRN TD CHEST PAIN; Start 08/27/18 at 00:30 Lorazepam (Ativan) 1 mg Q4H PRN IV ANXIETY Last administered on 08/27/18 04:14; Admin Dose 1 MG; Start 08/27/18 at 04:30 Eye Lubricant (Artificial Tears Oph) 2 drop Q2H PRN BOTH EYES dry eyes Last administered on 09/22/18 22:31; Admin Dose 2 DROP; Start 08/28/18 at 01:30 Morphine Sulfate (morphine) 3 mg Q1H PRN GTB PAIN NOT RELIEVED BY OTHERS Last administered on 09/09/18 09:45; Admin Dose 3 MG; Start 08/29/18 at 12:00 Oxycodone HCl (Roxicodone) 5 mg Q4H PRN PO MODERATE PAIN LEVEL 4-6 Last administered on 09/19/18 13:00; Admin Dose 5 MG; Start 09/01/18 at 10:00 Miscellaneous Information (* Miscellaneous Pharmacy Order) ASPIRIN ORDER WILL ... Q12 XX Last administered on 09/22/18 21:00; Admin Dose 1 EA; Start 09/05/18 at 10:00 Ipratropium [place] (Atrovent 0.02% (Neb)) 0.5 mg Q6HWA RESP THERAPY HHN Last administered on 09/24/18 09:45; Admin Dose 0.5 MG; Start 09/07/18 at 20:00 Albuterol (Proventil 0.083% (Neb)) 2.5 mg Q6H RESP THERAPY HHN Last administered on 09/24/18 09:45; Admin Dose 2.5 MG; Start 09/07/18 at 20:00 Heparin Sodium (Porcine) (Heparin (5000 Units/1ml)) 5,000 unit BID SC Last administered on 09/24/18 08:29; Admin Dose 5,000 UNIT; Start 09/08/18 at 21:00 Hydralazine HCl (Apresoline) 10 mg Q2 PRN IV ELEVATED SYSTOLIC BP Last administ ered on 09/16/18 15:50; Admin Dose 10 MG; Start 09/12/18 at 16:30 Carvedilol (Coreg) 50 mg BID PO Last administered on 09/24/18 08:11; Admin Dose 50 MG; Start 09/14/18 at 21:00 Amlodipine Besylate (Norvasc) 2.5 mg DAILY PO Last administered on 09/24/18 08:11; Admin Dose 2.5 MG; Start 09/23/18 at 09:00 Aspirin (Aspirin) 81 mg DAILY PO Last administered on 09/24/18 08:09; Admin Dose 81 MG; Start 09/23/18 at 09:00 Clopidogrel Bisulfate (plaVIX) 75 mg DAILY PO Last administered on 09/24/18 08:09; Admin Dose 75 MG; Start 09/23/18 at 09:00 Lansoprazole (Prevacid) 30 mg DAILY@06 PO Last administered on 09/24/18 05:38; Admin Dose 30 MG; Start 09/23/18 at 06:00 Multivit/Ca Carb/ B Cmplx/FA/Prenat (Shalonda-Jaylen) 1 tab DAILY PO Last administered on 09/24/18 08:09; Admin Dose 1 TAB; Start 09/23/18 at 09:00 Furosemide (Lasix) 20 mg DAILY IV Last administered on 09/24/18 08:11; Admin Dose 20 MG; Start 09/23/18 at 15:00 Assessment/Plan Hospital Course (Demo Recall) IMP: 1. s/p Cardiac arrest 2. s/p [place] 3. Chronic Resp Failure with moderate oxygen requirements 4. Pneumonia 5. Anemia 6. Renal Failure 7. Anemia RECS: 1. Continue current supportive care 2. Start lasix 20 mg IV daily; follow renal function 3. TF/Free H20 DC planning. tracheostomy site care. CHINO ANDERSON MD, [facility] September 24, 2018 14:45
--- NOTE | 2018-09-24 17:14 | CONS ---
Consult Date/Type/Reason Admit Date/Time Aug 04, 2018 at 23:10 Initial Consult Date 08/05/18 Type of Consultation: cv Requesting Provider: HARPAL AGGARWAL MD Date/Time of Note DATE: 09/24/18 TIME: 17:13 Subjective Interventional cardiology follow-up progress note Subjective: Events noted discussed with the staff and tele was reviewed. no V tachycardia or V fibrillation. d/w multiple family she denies any cp to me now She has less shortness of breath at this point tolerating weaning so far events noted s/p PCI 100% occluded LAD 08/04 S/P PCI LCX/ OM s/p trach 08/22/18 PCI RCA 09/04/18 Objective: General: Obese female no acute distress s/p trach on O2 HEENT: NC/AT. pupils are equal. round. NECK: . no stridor. s/p trach on oxygen CV: RRR. systolic murmur; no gallop or rubs. PULM: no wheezing mild rhonchi. GI: Obese SOFT, NT, ND, no rebound or guarding s/pPEG Extremity: trace B/L LE edema. no clubbing. neuro: awake and follows commands Psych: Calm now rectal: deferred EKG August 06, 2018 was personally within normal sinus rhythm. T wave inversions anterior and inferior leads ECG 08/07: NSR ST T abn c/w ant/lat ischemia CXR 08/14: Nonspecific patchy bilateral pulmonary opacity, mildly improved on the right. No pneumothorax. Endotracheal tube, nasogastric tube, and right-sided PICC line remain in place. Stable mild cardiomegaly. The osseous structures are remarkable for degenerative enthesopathy of the spine. Chest x-ray done August 06 shows:No evidence for active cardiopulmonary disease. CXR 08/19: Diffuse bilateral reticular nodular infiltrates unchanged. Question bronchopneumonia versus failure. CXR 08/28/18: Allowing for support structures overlying the right base, no significant change. Left mid and bibasilar air space opacities/infiltrates are again present. Lines and tubes are stable ECHO personally reviewed Normal left ventricular cavity size. Normal left ventricular wall thickness. Ejection fraction is visually estimated at 55-65 %. Normal appearance of the mitral valve. Mitral valve is not well visualized. No mitral valve regurgitation is seen. Aortic valve not well visualized. No aortic regurgitation. Normal appearance of the tricuspid valve. Unable to obtain RVSP due to minimal presence of tricuspid regurgitation. No evidence of tricuspid regurgitation. Normal pericardium with no significant pericardial effusion. suboptimal study. Objective Vitals Vital Signs Date Temp Pulse Resp B/P (MAP) Pulse Ox O2 O2 Flow FiO2 Time Delivery Rate 09/24/18 98.2 90 19 138/84 100 Trach 16:17 (102) Collar 09/24/18 5.0 28 15:02 Intake and Output 09/23/18 09/23/18 09/24/18 1515:00 23:00 07:00 IntakeIntake Total 960 ml 500 ml BalanceBalance 960 ml 500 ml Results/Medications Result Diagram: 09/24/18 0700 09/24/18 0700 Results 24 hrs Laboratory Tests Test 09/24/18 07:00 White Blood Count 5.7 Red Blood Count 3.50 L Hemoglobin 10.1 L Hematocrit 33.3 L Mean Corpuscular Volume 95.1 Mean Corpuscular Hemoglobin 28.9 L Mean Corpuscular Hemoglobin Concent 30.3 L Red Cell Distribution Width 15.2 H Platelet Count 163 Mean Platelet Volume 11.7 H Immature Granulocytes % 0.300 Neutrophils % 36.0 L Lymphocytes % 51.0 Monocytes % 7.5 Eosinophils % 4.5 Basophils % 0.7 Nucleated Red Blood Cells % 0.0 Immature Granulocytes # 0.020 Neutrophils # 2.1 Lymphocytes # 2.9 Monocytes # 0.4 Eosinophils # 0.3 Basophils # 0.0 Nucleated Red Blood Cells # 0.0 Sodium Level 139 Potassium Level 3.8 Chloride Level 105 Carbon Dioxide Level 24 Anion Gap 10 Blood Urea Nitrogen 20 Creatinine 1.25 H Glucose Level 88 Calcium Level 9.8 Phosphorus Level 6.7 H Magnesium Level 1.5 L Albumin 3.3 Medications Current Medications Atorvastatin Calcium (Lipitor) 80 mg DAILY@21 PO Last administered on 09/23/18at 20:51; Admin Dose 80 MG; Start 08/05/18 at 21:00 Miscellaneous Information 1 ea NOTE XX ; Start 08/05/18 at 09:00 Acetaminophen (Tylenol Liquid) 650 mg Q4H PRN PO ELEVATED TEMPERATURE Last administered on 09/01/18at 00:29; Admin Dose 650 MG; Start 08/05/18 at 11:00 Folic Acid (Folic Acid) 1 mg DAILY NGT Last administered on 09/24/18 08:09; Admin Dose 1 MG; Start 08/09/18 at 09:00 IV Flush (NS 10 ml) 10 ml PRN PRN IV IV PROTOCOL; Start 08/11/18 at 16:30 Labetalol HCl (Labetalol) 10 mg Q4H PRN IV ELEVATED SYSTOLIC BP > 170 Last administered on 08/20/18 16:54; Admin Dose 10 MG; Start 08/14/18 at 19:00 Rifaximin (Xifaxan) 200 mg TID PO Last administered on 09/24/18 12:09; Admin Dose 200 MG; Start 08/19/18 at 13:00 Sevelamer Carbonate (Renvela) 2.4 gm WITH MEALS GTB Last administered on 09/24/18 11:32; Admin Dose 2.4 GM; Start 08/23/18 at 11:30 Ondansetron HCl (Zofran Inj) 4 mg Q4H PRN IV NAUSEA AND/OR VOMITING Last administered on 09/09/18 11:21; Admin Dose 4 MG; Start 08/23/18 at 14:30 Sodium Chloride (NS) -To prime the dialy... DIRECTED FOR HD PRN IV HD; Start 08/26/18 at 12:00 Nitroglycerin (Nitroglycerin 2% Oint) 0.5 inch Q6 PRN TD CHEST PAIN; Start 08/27/18 at 00:30 Lorazepam (Ativan) 1 mg Q4H PRN IV ANXIETY Last administered on 08/27/18 04:14; Admin Dose 1 MG; Start 08/27/18 at 04:30 Eye Lubricant (Artificial Tears Oph) 2 drop Q2H PRN BOTH EYES dry eyes Last administered on 09/22/18 22:31; Admin Dose 2 DROP; Start 08/28/18 at 01:30 Morphine Sulfate (morphine) 3 mg Q1H PRN GTB PAIN NOT RELIEVED BY OTHERS Last administered on 09/09/18 09:45; Admin Dose 3 MG; Start 08/29/18 at 12:00 Oxycodone HCl (Roxicodone) 5 mg Q4H PRN PO MODERATE PAIN LEVEL 4-6 Last administered on 09/19/18 13:00; Admin Dose 5 MG; Start 09/01/18 at 10:00 Miscellaneous Information (* Miscellaneous Pharmacy Order) ASPIRIN ORDER WILL ... Q12 XX Last administered on 09/22/18 21:00; Admin Dose 1 EA; Start 09/05/18 at 10:00 Ipratropium [place] (Atrovent 0.02% (Neb)) 0.5 mg Q6HWA RESP THERAPY HHN Last administered on 09/24/18 15:01; Admin Dose 0.5 MG; Start 09/07/18 at 20:00 Albuterol (Proventil 0.083% (Neb)) 2.5 mg Q6H RESP THERAPY HHN Last admini stered on 09/24/18 15:01; Admin Dose 2.5 MG; Start 09/07/18 at 20:00 Heparin Sodium (Porcine) (Heparin (5000 Units/1ml)) 5,000 unit BID SC Last administered on 09/24/18 08:29; Admin Dose 5,000 UNIT; Start 09/08/18 at 21:00 Hydralazine HCl (Apresoline) 10 mg Q2 PRN IV ELEVATED SYSTOLIC BP Last adm inistered on 09/16/18 15:50; Admin Dose 10 MG; Start 09/12/18 at 16:30 Carvedilol (Coreg) 50 mg BID PO Last administered on 09/24/18 08:11; Admin Dose 50 MG; Start 09/14/18 at 21:00 Amlodipine Besylate (Norvasc) 2.5 mg DAILY PO Last administered on 09/24/18 08:11; Admin Dose 2.5 MG; Start 09/23/18 at 09:00 Aspirin (Aspirin) 81 mg DAILY PO Last administered on 09/24/18 08:09; Admin Dose 81 MG; Start 09/23/18 at 09:00 Clopidogrel Bisulfate (plaVIX) 75 mg DAILY PO Last administered on 09/24/18 0 8:09; Admin Dose 75 MG; Start 09/23/18 at 09:00 Lansoprazole (Prevacid) 30 mg DAILY@06 PO Last administered on 09/24/18 05:38; Admin Dose 30 MG; Start 09/23/18 at 06:00 Multivit/Ca Carb/ B Cmplx/FA/Prenat (Shalonda-Jaylen) 1 tab DAILY PO Last administered on 09/24/18at 08:09; Admin Dose 1 TAB; Start 09/23/18 at 09:00 Furosemide (Lasix) 20 mg DAILY IV Last administered on 09/24/18at 08:11; Admin Dose 20 MG; Start 09/23/18 at 15:00 Assessment/Plan Hospital Course (Demo Recall) 1. s/p V. fib cardiac arrest 2. Acute myocardial infarction 3. Status post emergent PCI of the 100% occluded LAD as well as PTCA of the diagonal and PCI LCX/ OM , sp PCI RCA 09/04 4. Diabetes 5. Respiratory failure status post trach: on weanign 6. Hypertension 7. Renal failure : acute on chronic: resolved now 8. Likely history of congestive heart failure 9. Dyslipidemia 10. Encephalopathy: improved now 11. Morbid obesity 12. Anemia 13. elevated LFT 14. fever, bacteremia pneumonia 15. Malnutrition, anasarca . 16. septic shock and staph aureus bacteremia 17. oropharyngeal bleeding 18. CVA Recommendations: Continue with aspirin/ plavix Antibiotic management as per ID recommendation f/u renal fx. it has significantly improved now weaning as tolerated. We will defer to pulmonary team Continue with Coreg 50 bid . cont NORVASC Transfusion prn given her severe anemia and TN/ VF tele monitoring DVT prophylaxis replace Mg and k prn PT as tolerated Thank you for his referral. We will continue to follow along with you LOIS JOHNSON MD [facility] LOIS JOHNSON MD September 24, 2018 17:14
[2018-09-24] MEDS: ATORVASTATIN 80 MG TAB PO SCH (21:40)
[2018-09-25] VITALS (9 sets, daily range): BP systolic 121–146; BP diastolic 63–85; PULSE 81–94; RESP 17–18
[2018-09-25] MEDS: ALBUTEROL 0.083% (NEB) 2.5 MG/3 ML AMP HHN SCH ×4 (01:34→21:00)
[2018-09-25] MEDS: LANSOPRAZOLE 30 MG CAP PO SCH (06:03)
[2018-09-25] MEDS: IPRATROPIUM (NEB) 0.5 MG/2.5 ML AMP HHN SCH ×3 (08:34→21:00)
--- NOTE | 2018-09-25 08:41 | PN ---
DATE: 09/25/2018 SUBJECTIVE: The patient is stable. No events overnight. OBJECTIVE: VITAL SIGNS: Blood pressure is 136/77, respirations 17, pulse 85, temperature 98.3. HEENT: Head is normocephalic. NECK: Supple. HEART: Regular rate. LUNGS: Show diminished breath sounds at the base. ABDOMEN: Soft, nontender to palpation without rebound or guarding. EXTREMITIES: Negative for clubbing, cyanosis, no edema. DERMATOLOGIC: No rashes. MUSCULOSKELETAL: No joint effusion. NEUROLOGIC: No change in exam. MEDICATIONS: Reviewed. LABORATORY DATA: Reviewed. ASSESSMENT AND PLAN: 1. Nonoliguric acute kidney injury with previously normal baseline creatinine. Etiology of acute ki dney injury is secondary to acute tubular necrosis. The patient's renal function is improved. The p atient is status post hemodialysis. Continue current treatment plans, supportive care, renally dose of all medicines. 2. Anemia. Continue to monitor hemoglobin and hematocrit levels, no need for Epogen. 3. Mineral bone disorder, monitor calcium and phosphorus levels. 4. Hypomagnesemia. Continue to monitor and replete as needed. 5. Chronic respiratory failure, status post tracheostomy, currently stable. Continue to monitor. 6. Coronary artery disease, status post percutaneous coronary intervention. Continue medical manage ment. 7. Encephalopathy, improved. 8. Dysphagia. Continue modified diet. 9. Acute cerebrovascular accident. 10. Status post shock. 11. Status post cardiac arrest. Dictated By: BHUMI REDDY DO NR/NTS Conf#: [id number] DID#: [id number] CC: LAUREN GREWAL MD; DANIAL TUCKER MD; HARPAL PEDROZA MD;*EndCC*
[2018-09-25] MEDS: FOLIC ACID 1 MG TAB NGT SCH (09:52)
[2018-09-25] MEDS: MULTIVIT/CA CARB/B CMPLX/FA TAB PO SCH (09:53)
[2018-09-25] MEDS: RIFAXIMIN 200 MG TAB PO SCH ×3 (09:53→20:42)
[2018-09-25] MEDS: FUROSEMIDE 20 MG INJ IV SCH (09:53)
[2018-09-25] MEDS: AMLODIPINE 2.5 MG TAB PO SCH (09:53)
[2018-09-25] MEDS: ASPIRIN 81 MG TAB PO SCH (09:53)
[2018-09-25] MEDS: SEVELAMER CARBONATE 2.4 GM PKT GTB SCH ×3 (09:53→17:55)
[2018-09-25] MEDS: CLOPIDOGREL 75 MG TAB PO SCH (09:53)
[2018-09-25] MEDS: HEPARIN 5,000 UNIT/1 ML VIAL SC SCH ×2 (09:59→21:51)
--- NOTE | 2018-09-25 10:29 | CONS ---
Consult Date/Type/Reason Admit Date/Time Aug 04, 2018 at 23:10 Initial Consult Date 08/05/18 Type of Consultation: cv Requesting Provider: HARPAL AGGARWAL MD Date/Time of Note DATE: 09/25/18 TIME: 10:28 Subjective Interventional cardiology follow-up progress note Subjective: Events noted discussed with the staff and tele was reviewed. no V tachycardia or V fibrillation. she denies any cp to me now She denies shortness of breath at this point tolerating weaning so far events noted s/p PCI 100% occluded LAD 08/04 S/P PCI LCX/ OM s/p trach 08/22/18 PCI RCA 09/04/18 Objective: General: Obese female no acute distress s/p trach on O2 HEENT: NC/AT. pupils are equal. round. NECK: . no stridor. s/p trach on oxygen CV: RRR. systolic murmur; no gallop or rubs. PULM: no wheezing mild rhonchi. GI: Obese SOFT, NT, ND, no rebound or guarding s/pPEG Extremity: trace B/L LE edema. no clubbing. neuro: awake and follows commands Psych: Calm now rectal: deferred EKG August 06, 2018 was personally within normal sinus rhythm. T wave inversions anterior and inferior leads ECG 08/07: NSR ST T abn c/w ant/lat ischemia CXR 08/14: Nonspecific patchy bilateral pulmonary opacity, mildly improved on the right. No pneumothorax. Endotracheal tube, nasogastric tube, and right-sided PICC line remain in place. Stable mild cardiomegaly. The osseous structures are remarkable for degenerative enthesopathy of the spine. Chest x-ray done August 06 shows:No evidence for active cardiopulmonary disease. CXR 08/19: Diffuse bilateral reticular nodular infiltrates unchanged. Question bronchopneumonia versus failure. CXR 08/28/18: Allowing for support structures overlying the right base, no significant change. Left mid and bibasilar air space opacities/infiltrates are again present. Lines and tubes are stable ECHO personally reviewed Normal left ventricular cavity size. Normal left ventricular wall thickness. Ejection fraction is visually estimated at 55-65 %. Normal appearance of the mitral valve. Mitral valve is not well visualized. No mitral valve regurgitation is seen. Aortic valve not well visualized. No aortic regurgitation. Normal appearance of the tricuspid valve. Unable to obtain RVSP due to minimal presence of tricuspid regurgitation. No evidence of tricuspid regurgitation. Normal pericardium with no significant pericardial effusion. suboptimal study. Objective Vitals Vital Signs Date Temp Pulse Resp B/P (MAP) Pulse Ox O2 O2 Flow FiO2 Time Delivery Rate 09/25/18 98 5.0 28 08:40 09/25/18 84 18 Aerosol 08:40 09/25/18 98.3 136/77 07:56 (96) Intake and Output 09/24/18 09/24/18 09/25/18 1515:00 23:00 07:00 IntakeIntake Total 1200 ml 1050 ml BalanceBalance 1200 ml 1050 ml Results/Medications Result Diagram: 09/25/18 0757 09/25/18 0757 Results 24 hrs Laboratory Tests Test 09/25/18 07:57 White Blood Count 6.5 Red Blood Count 3.75 L Hemoglobin 10.7 L Hematocrit 35.2 L Mean Corpuscular Volume 93.9 Mean Corpuscular Hemoglobin 28.5 L Mean Corpuscular Hemoglobin Concent 30.4 L Red Cell Distribution Width 15.0 H Platelet Count 208 # Mean Platelet Volume 11.9 H Immature Granulocytes % 0.300 Neutrophils % 35.6 L Lymphocytes % 52.3 H Monocytes % 7.1 Eosinophils % 3.9 Basophils % 0.8 Nucleated Red Blood Cells % 0.0 Immature Granulocytes # 0.020 Neutrophils # 2.3 Lymphocytes # 3.4 H Monocytes # 0.5 Eosinophils # 0.3 Basophils # 0.1 Nucleated Red Blood Cells # 0.0 Sodium Level 139 Potassium Level 4.2 Chloride Level 104 Carbon Dioxide Level 26 Anion Gap 9 Blood Urea Nitrogen 19 Creatinine 1.33 H Glucose Level 95 Calcium Level 9.8 Phosphorus Level 6.5 H Magnesium Level 1.7 Albumin 3.5 Medications Current Medications Atorvastatin Calcium (Lipitor) 80 mg DAILY@21 PO Last administered on 09/24/18at 21:40; Admin Dose 80 MG; Start 08/05/18 at 21:00 Miscellaneous Information 1 ea NOTE XX ; Start 08/05/18 at 09:00 Acetaminophen (Tylenol Liquid) 650 mg Q4H PRN PO ELEVATED TEMPERATURE Last administered on 09/01/18at 00:29; Admin Dose 650 MG; Start 08/05/18 at 11:00 Folic Acid (Folic Acid) 1 mg DAILY NGT Last administered on 09/25/18 09:52; Admin Dose 1 MG; Start 08/09/18 at 09:00 IV Flush (NS 10 ml) 10 ml PRN PRN IV IV PROTOCOL; Start 08/11/18 at 16:30 Labetalol HCl (Labetalol) 10 mg Q4H PRN IV ELEVATED SYSTOLIC BP > 170 Last administered on 08/20/18 16:54; Admin Dose 10 MG; Start 08/14/18 at 19:00 Rifaximin (Xifaxan) 200 mg TID PO Last administered on 09/25/18 09:53; Admin Dose 200 MG; Start 08/19/18 at 13:00 Sevelamer Carbonate (Renvela) 2.4 gm WITH MEALS GTB Last administered on 09/25/18 09:53; Admin Dose 2.4 GM; Start 08/23/18 at 11:30 Ondansetron HCl (Zofran Inj) 4 mg Q4H PRN IV NAUSEA AND/OR VOMITING Last administered on 09/09/18 11:21; Admin Dose 4 MG; Start 08/23/18 at 14:30 Sodium Chloride (NS) -To prime the dialy... DIRECTED FOR HD PRN IV HD; Start 08/26/18 at 12:00 Nitroglycerin (Nitroglycerin 2% Oint) 0.5 inch Q6 PRN TD CHEST PAIN; Start 08/27/18 at 00:30 Lorazepam (Ativan) 1 mg Q4H PRN IV ANXIETY Last administered on 08/27/18 04:14; Admin Dose 1 MG; Start 08/27/18 at 04:30 Eye Lubricant (Artificial Tears Oph) 2 drop Q2H PRN BOTH EYES dry eyes Last administered on 09/22/18 22:31; Admin Dose 2 DROP; Start 08/28/18 at 01:30 Morphine Sulfate (morphine) 3 mg Q1H PRN GTB PAIN NOT RELIEVED BY OTHERS Last administered on 09/09/18 09:45; Admin Dose 3 MG; Start 08/29/18 at 12:00 Oxycodone HCl (Roxicodone) 5 mg Q4H PRN PO MODERATE PAIN LEVEL 4-6 Last administered on 09/19/18 13:00; Admin Dose 5 MG; Start 09/01/18 at 10:00 Miscellaneous Information (* Miscellaneous Pharmacy Order) ASPIRIN ORDER WILL ... Q12 XX Last administered on 09/22/18 21:00; Admin Dose 1 EA; Start 09/05/18 at 10:00 Ipratropium [place] (Atrovent 0.02% (Neb)) 0.5 mg Q6HWA RESP THERAPY HHN Last administered on 09/25/18 08:34; Admin Dose 0.5 MG; Start 09/07/18 at 20:00 Albuterol (Proventil 0.083% (Neb)) 2.5 mg Q6H RESP THERAPY HHN Last administ ered on 09/25/18 08:34; Admin Dose 2.5 MG; Start 09/07/18 at 20:00 Heparin Sodium (Porcine) (Heparin (5000 Units/1ml)) 5,000 unit BID SC Last administered on 09/25/18 09:59; Admin Dose 5,000 UNIT; Start 09/08/18 at 21:00 Hydralazine HCl (Apresoline) 10 mg Q2 PRN IV ELEVATED SYSTOLIC BP Last admin istered on 09/16/18 15:50; Admin Dose 10 MG; Start 09/12/18 at 16:30 Carvedilol (Coreg) 50 mg BID PO Last administered on 09/25/18 09:52; Admin Dose 50 MG; Start 09/14/18 at 21:00 Amlodipine Besylate (Norvasc) 2.5 mg DAILY PO Last administered on 09/25/18 09:53; Admin Dose 2.5 MG; Start 09/23/18 at 09:00 Aspirin (Aspirin) 81 mg DAILY PO Last administered on 09/25/18 09:53; Admin Dose 81 MG; Start 09/23/18 at 09:00 Clopidogrel Bisulfate (plaVIX) 75 mg DAILY PO Last administered on 09/25/18 09: 53; Admin Dose 75 MG; Start 09/23/18 at 09:00 Lansoprazole (Prevacid) 30 mg DAILY@06 PO Last administered on 09/25/18 06:03; Admin Dose 30 MG; Start 09/23/18 at 06:00 Multivit/Ca Carb/ B Cmplx/FA/Prenat (Shalonda-Jaylen) 1 tab DAILY PO Last administered on 09/25/18at 09:53; Admin Dose 1 TAB; Start 09/23/18 at 09:00 Furosemide (Lasix) 20 mg DAILY IV Last administered on 09/25/18at 09:53; Admin Dose 20 MG; Start 09/23/18 at 15:00 Assessment/Plan Hospital Course (Demo Recall) 1. s/p V. fib cardiac arrest 2. Acute myocardial infarction 3. Status post emergent PCI of the 100% occluded LAD as well as PTCA of the diagonal and PCI LCX/ OM , sp PCI RCA 09/04 4. Diabetes 5. Respiratory failure status post trach: on weanign 6. Hypertension 7. Renal failure : acute on chronic: resolved now 8. Likely history of congestive heart failure 9. Dyslipidemia 10. Encephalopathy: improved now 11. Morbid obesity 12. Anemia 13. elevated LFT 14. fever, bacteremia pneumonia 15. Malnutrition, anasarca . 16. septic shock and staph aureus bacteremia 17. oropharyngeal bleeding 18. CVA Recommendations: Continue with aspirin/ plavix Antibiotic management as per ID recommendation f/u renal fx. it has significantly improved now weaning as tolerated. We will defer to pulmonary team Continue with Coreg 50 bid . cont NORVASC Transfusion prn given her severe anemia and NE/ VF tele monitoring DVT prophylaxis replace Mg and k prn PT as tolerated Thank you for his referral. We will continue to follow along with you LOIS JOHNSON MD [facility] LOIS JOHNSON MD September 25, 2018 10:29
[2018-09-25] MEDS ORDERED: MAGNESIUM SULFATE 3 GM in DEXTROSE 5% 100 ML IVPB ONE (12:00)
--- NOTE | 2018-09-25 14:01 | PN ---
Date/Time of Note Date/Time of Note DATE: 09/25/18 TIME: 14:01 Objective Vitals Vital Signs Date Temp Pulse Resp B/P (MAP) Pulse Ox O2 O2 Flow FiO2 Time Delivery Rate 09/25/18 98 5.0 28 08:40 09/25/18 84 18 Aerosol 08:40 09/25/18 98.3 136/77 07:56 (96) Intake and Output 09/24/18 09/24/18 09/25/18 1515:00 23:00 07:00 IntakeIntake Total 1200 ml 1050 ml BalanceBalance 1200 ml 1050 ml Results Result Diagram: 09/25/18 0757 09/25/18 0757 Medications Medications Current Medications Atorvastatin Calcium (Lipitor) 80 mg DAILY@21 PO Last administered on 09/24/18 21:40; Admin Dose 80 MG; Start 08/05/18 at 21:00 Miscellaneous Information 1 ea NOTE XX ; Start 08/05/18 at 09:00 Acetaminophen (Tylenol Liquid) 650 mg Q4H PRN PO ELEVATED TEMPERATURE Last administered on 09/01/18 00:29; Admin Dose 650 MG; Start 08/05/18 at 11:00 Folic Acid (Folic Acid) 1 mg DAILY NGT Last administered on 09/25/18 09:52; Admin Dose 1 MG; Start 08/09/18 at 09:00 IV Flush (NS 10 ml) 10 ml PRN PRN IV IV PROTOCOL; Start 08/11/18 at 16:30 Labetalol HCl (Labetalol) 10 mg Q4H PRN IV ELEVATED SYSTOLIC BP > 170 Last a dministered on 08/20/18 16:54; Admin Dose 10 MG; Start 08/14/18 at 19:00 Rifaximin (Xifaxan) 200 mg TID PO Last administered on 09/25/18 12:41; Admin Dose 200 MG; Start 08/19/18 at 13:00 Sevelamer Carbonate (Renvela) 2.4 gm WITH MEALS GTB Last administered on 09/25/18 12:41; Admin Dose 2.4 GM; Start 08/23/18 at 11:30 Ondansetron HCl (Zofran Inj) 4 mg Q4H PRN IV NAUSEA AND/OR VOMITING Last admin istered on 09/09/18 11:21; Admin Dose 4 MG; Start 08/23/18 at 14:30 Sodium Chloride (NS) -To prime the dialy... DIRECTED FOR HD PRN IV HD; Start 08/26/18 at 12:00 Nitroglycerin (Nitroglycerin 2% Oint) 0.5 inch Q6 PRN TD CHEST PAIN; Start 08/27/18 at 00:30 Lorazepam (Ativan) 1 mg Q4H PRN IV ANXIETY Last administered on 08/27/18 04:14; Admin Dose 1 MG; Start 08/27/18 at 04:30 Eye Lubricant (Artificial Tears Oph) 2 drop Q2H PRN BOTH EYES dry eyes Last administered on 09/22/18 22:31; Admin Dose 2 DROP; Start 08/28/18 at 01:30 Morphine Sulfate (morphine) 3 mg Q1H PRN GTB PAIN NOT RELIEVED BY OTHERS Last administered on 09/09/18 09:45; Admin Dose 3 MG; Start 08/29/18 at 12:00 Oxycodone HCl (Roxicodone) 5 mg Q4H PRN PO MODERATE PAIN LEVEL 4-6 Last administered on 09/19/18 13:00; Admin Dose 5 MG; Start 09/01/18 at 10:00 Miscellaneous Information (* Miscellaneous Pharmacy Order) ASPIRIN ORDER WILL ... Q12 XX Last administered on 09/22/18 21:00; Admin Dose 1 EA; Start 09/05/18 at 10:00 Ipratropium [place] (Atrovent 0.02% (Neb)) 0.5 mg Q6HWA RESP THERAPY HHN Last administered on 09/25/18 08:34; Admin Dose 0.5 MG; Start 09/07/18 at 20:00 Albuterol (Proventil 0.083% (Neb)) 2.5 mg Q6H RESP THERAPY HHN Last administered on 09/25/18 08:34; Admin Dose 2.5 MG; Start 09/07/18 at 20:00 Heparin Sodium (Porcine) (Heparin (5000 Units/1ml)) 5,000 unit BID SC Last administered on 09/25/18 09:59; Admin Dose 5,000 UNIT; Start 09/08/18 at 21:00 Hydralazine HCl (Apresoline) 10 mg Q2 PRN IV ELEVATED SYSTOLIC BP Last administered on 09/16/18 15:50; Admin Dose 10 MG; Start 09/12/18 at 16:30 Carvedilol (Coreg) 50 mg BID PO Last administered on 09/25/18 09:52; Admin Dose 50 MG; Start 09/14/18 at 21:00 Amlodipine Besylate (Norvasc) 2.5 mg DAILY PO Last administered on 09/25/18 09:53; Admin Dose 2.5 MG; Start 09/23/18 at 09:00 Aspirin (Aspirin) 81 mg DAILY PO Last administered on 09/25/18 09:53; Admin Dose 81 MG; Start 09/23/18 at 09:00 Clopidogrel Bisulfate (plaVIX) 75 mg DAILY PO Last administered on 09/25/18 09:53; Admin Dose 75 MG; Start 09/23/18 at 09:00 Lansoprazole (Prevacid) 30 mg DAILY@06 PO Last administered on 09/25/18 06:03; Admin Dose 30 MG; Start 09/23/18 at 06:00 Multivit/Ca Carb/ B Cmplx/FA/Prenat (Shalonda-Jaylen) 1 tab DAILY PO Last administered on 09/25/18 09:53; Admin Dose 1 TAB; Start 09/23/18 at 09:00 Furosemide (Lasix) 20 mg DAILY IV Last administered on 09/25/18 09:53; Admin Dose 20 MG; Start 09/23/18 at 15:00 Magnesium Sulfate 3 gm/Dextrose 106 ml @ 35.333 mls/ hr ONCE ONCE IVPB Last administered on 09/25/18 12:35; Admin Dose 35.333 MLS/HR; Start 09/25/18 at 12:00; Stop 09/25/18 at 14:59 VTE Prophylaxis Risk score (from Nsg)>0 risk: 5 SCD applied (from Nsg): Yes Lines/Catheters IV Catheter Type: Aguilar in Place: No Assessment/Plan Hospital Course Subjective Patient doing well Objective Physical exam General: Patient is laying in bed and answers questions appropriately, has trach Mentation: Patient is alert and oriented 4, Head: Normocephalic atraumatic Eyes: EOMI, pupils reactive to light Neck: Supple, nontender, midline Respiratory: Clear to auscultation bilaterally Cardiovascular: regular rate, no obvious murmurs Gastrointestinal: non-tender to palpation, bowel sounds heard. Neurological: Moves all extremities spontaneously Skin: No new skin lesions Assessment/Plan 1. Acute hypoxic respiratory failure- resolving - Patient doing well on trach collar and on 5L O2. Will try to taper down O2 requirement as tolerated prior to discharge home - Pulm on board and appreciate recommendations. - CM on board for assistance with arranging ENT follow up as outpatient for laser procedure due to presents of stricture/adhesions 2. CAD s/p PCI x3- stable - Cardiology recommendations appreciated. Will need to continue aspirin for life and DAPT for 1 year - s/p emergent Cath 08/05 with successful PTCA and stenting of proximal and mid LAD, PTCA of the large first diagonal and thrombectomy of the LAD - Repeat PCI on 08/07 performed with stenting to LCx - Repeat PCI on 09/04 with stenting ostial/proximal right coronary artery 3. Acute toxic/metabolic encephalopathy- resolved - Patient back to baseline 4. Bilateral CVA- no residual defect - PT/OT on board - Found on MRI, likely thromboembolic secondary to cardiopulmonary arrest per neurology - Continue on aspirin/Plavix and Lipitor 5. Anemia, blood loss and renal disease- stable - Hgb remains stable, transfuse as needed 6. Bilateral Pneumonia- resolved - ID on board and appreciate recommendations. Monitor off antibiotics 7. Septic shock secondary to PNA and bacteremia- resolved - Blood cultures and sputum culture results noted. - ID on board 8. Renal failure now off HD - Nephrology on board and appreciate recommendations. Cr continues to show signs of recovery 9. S/p V-fib cardiac arrest secondary to STEMI - Completed hypothermia protocol 10. Disposition - arranging HHPT and finalized equipment for HHPT discharge soon. nursing home social worker and CM to assist. HARPAL PEDROZA September 25, 2018 14:01
--- NOTE | 2018-09-25 14:41 | CONS ---
Consult Date/Type/Reason Admit Date/Time Aug 04, 2018 at 23:10 Initial Consult Date 08/05/18 Type of Consult Pulmonary Requesting Provider: HARPAL AGGARWAL MD Date/Time of Note DATE: 09/25/18 TIME: 14:38 Subjective Patient remains comfortable on cool aerosol. Objective Vital Signs Date Temp Pulse Resp B/P (MAP) Pulse Ox O2 O2 Flow FiO2 Time Delivery Rate 09/25/18 98 5.0 28 14:06 09/25/18 82 12:00 09/25/18 18 Aerosol 08:40 09/25/18 98.3 136/77 07:56 (96) Intake and Output 09/24/18 09/24/18 09/25/18 1515:00 23:00 07:00 IntakeIntake Total 1200 ml 1050 ml BalanceBalance 1200 ml 1050 ml Exam GENERAL: VITAL SIGNS: per chart NECK: Supple. No JVD or lymphadenopathy. Trach site clean and intact CARDIAC EXAM: S1, S2. No added sounds or murmurs. CHEST: clear bilaterally, No added sounds, rales or wheezes ABDOMEN: Soft, nontender. No guarding or rebound. EXTREMITIES: No cyanosis, clubbing or edema. NEUROLOGIC: Generalized weakness. Vent Setting Ventilator Support Mode: SIMV Fraction of Inspired Oxygen pe: 28 Positive End Expiratory Pressu: 5.0 Results/Medications Result Diagram: 09/25/18 0757 09/25/18 0757 Results 24 hrs Laboratory Tests Test 09/25/18 07:57 White Blood Count 6.5 Red Blood Count 3.75 L Hemoglobin 10.7 L Hematocrit 35.2 L Mean Corpuscular Volume 93.9 Mean Corpuscular Hemoglobin 28.5 L Mean Corpuscular Hemoglobin Concent 30.4 L Red Cell Distribution Width 15.0 H Platelet Count 208 # Mean Platelet Volume 11.9 H Immature Granulocytes % 0.300 Neutrophils % 35.6 L Lymphocytes % 52.3 H Monocytes % 7.1 Eosinophils % 3.9 Basophils % 0.8 Nucleated Red Blood Cells % 0.0 Immature Granulocytes # 0.020 Neutrophils # 2.3 Lymphocytes # 3.4 H Monocytes # 0.5 Eosinophils # 0.3 Basophils # 0.1 Nucleated Red Blood Cells # 0.0 Sodium Level 139 Potassium Level 4.2 Chloride Level 104 Carbon Dioxide Level 26 Anion Gap 9 Blood Urea Nitrogen 19 Creatinine 1.33 H Glucose Level 95 Calcium Level 9.8 Phosphorus Level 6.5 H Magnesium Level 1.7 Albumin 3.5 Medications Current Medications Atorvastatin Calcium (Lipitor) 80 mg DAILY@21 PO Last administered on 09/24/18 21:40; Admin Dose 80 MG; Start 08/05/18 at 21:00 Miscellaneous Information 1 ea NOTE XX ; Start 08/05/18 at 09:00 Acetaminophen (Tylenol Liquid) 650 mg Q4H PRN PO ELEVATED TEMPERATURE Last administered on 09/01/18 00:29; Admin Dose 650 MG; Start 08/05/18 at 11:00 Folic Acid (Folic Acid) 1 mg DAILY NGT Last administered on 09/25/18 09:52; Admin Dose 1 MG; Start 08/09/18 at 09:00 IV Flush (NS 10 ml) 10 ml PRN PRN IV IV PROTOCOL; Start 08/11/18 at 16:30 Labetalol HCl (Labetalol) 10 mg Q4H PRN IV ELEVATED SYSTOLIC BP > 170 Last administered on 08/20/18 16:54; Admin Dose 10 MG; Start 08/14/18 at 19:00 Rifaximin (Xifaxan) 200 mg TID PO Last administered on 09/25/18 12:41; Admin Dose 200 MG; Start 08/19/18 at 13:00 Sevelamer Carbonate (Renvela) 2.4 gm WITH MEALS GTB Last administered on 09/25/18 12:41; Admin Dose 2.4 GM; Start 08/23/18 at 11:30 Ondansetron HCl (Zofran Inj) 4 mg Q4H PRN IV NAUSEA AND/OR VOMITING Last administered on 09/09/18at 11:21; Admin Dose 4 MG; Start 08/23/18 at 14:30 Sodium Chloride (NS) -To prime the dialy... DIRECTED FOR HD PRN IV HD; Start 08/26/18 at 12:00 Nitroglycerin (Nitroglycerin 2% Oint) 0.5 inch Q6 PRN TD CHEST PAIN; Start 08/27/18 at 00:30 Lorazepam (Ativan) 1 mg Q4H PRN IV ANXIETY Last administered on 08/27/18 04:14; Admin Dose 1 MG; Start 08/27/18 at 04:30 Eye Lubricant (Artificial Tears Oph) 2 drop Q2H PRN BOTH EYES dry eyes Last administered on 09/22/18 22:31; Admin Dose 2 DROP; Start 08/28/18 at 01:30 Morphine Sulfate (morphine) 3 mg Q1H PRN GTB PAIN NOT RELIEVED BY OTHERS Last administered on 09/09/18 09:45; Admin Dose 3 MG; Start 08/29/18 at 12:00 Oxycodone HCl (Roxicodone) 5 mg Q4H PRN PO MODERATE PAIN LEVEL 4-6 Last administered on 09/19/18 13:00; Admin Dose 5 MG; Start 09/01/18 at 10:00 Miscellaneous Information (* Miscellaneous Pharmacy Order) ASPIRIN ORDER WILL ... Q12 XX Last administered on 09/22/18 21:00; Admin Dose 1 EA; Start 09/05/18 at 10:00 Ipratropium [place] (Atrovent 0.02% (Neb)) 0.5 mg Q6HWA RESP THERAPY HHN Last administered on 09/25/18 14:06; Admin Dose 0.5 MG; Start 09/07/18 at 20:00 Albuterol (Proventil 0.083% (Neb)) 2.5 mg Q6H RESP THERAPY HHN Last administered on 09/25/18 14:06; Admin Dose 2.5 MG; Start 09/07/18 at 20:00 Heparin Sodium (Porcine) (Heparin (5000 Units/1ml)) 5,000 unit BID SC Last administered on 09/25/18 09:59; Admin Dose 5,000 UNIT; Start 09/08/18 at 21:00 Hydralazine HCl (Apresoline) 10 mg Q2 PRN IV ELEVATED SYSTOLIC BP Last administered on 09/16/18 15:50; Admin Dose 10 MG; Start 09/12/18 at 16:30 Carvedilol (Coreg) 50 mg BID PO Last administered on 09/25/18 09:52; Admin Dose 50 MG; Start 09/14/18 at 21:00 Amlodipine Besylate (Norvasc) 2.5 mg DAILY PO Last administered on 09/25/18 09:53; Admin Dose 2.5 MG; Start 09/23/18 at 09:00 Aspirin (Aspirin) 81 mg DAILY PO Last administered on 09/25/18 09:53; Admin Dose 81 MG; Start 09/23/18 at 09:00 Clopidogrel Bisulfate (plaVIX) 75 mg DAILY PO Last administered on 09/25/18 09:53; Admin Dose 75 MG; Start 09/23/18 at 09:00 Lansoprazole (Prevacid) 30 mg DAILY@06 PO Last administered on 09/25/18 06:03; Admin Dose 30 MG; Start 09/23/18 at 06:00 Multivit/Ca Carb/ B Cmplx/FA/Prenat (Shalonda-Jaylen) 1 tab DAILY PO Last administered on 09/25/18 09:53; Admin Dose 1 TAB; Start 09/23/18 at 09:00 Furosemide (Lasix) 20 mg DAILY IV Last administered on 09/25/18 09:53; Admin Dose 20 MG; Start 09/23/18 at 15:00 Magnesium Sulfate 3 gm/Dextrose 106 ml @ 35.333 mls/ hr ONCE ONCE IVPB Last administered on 09/25/18 12:35; Admin Dose 35.333 MLS/HR; Start 09/25/18 at 12:00; Stop 09/25/18 at 14:59 Assessment/Plan Hospital Course (Demo Recall) IMP: 1. s/p Cardiac arrest 2. s/p AK 3. Chronic Resp Failure with moderate oxygen requirements 4. Pneumonia 5. Anemia 6. Renal Failure 7. Anemia RECS: 1. Continue current supportive care 2. lasix as tolerated. 3. TF/Free H20 DC planning. tracheostomy site care. CHINO ANDERSON MD, [facility] September 25, 2018 14:41
[2018-09-25] MEDS: ATORVASTATIN 80 MG TAB PO SCH (20:42)
[2018-09-26] VITALS (13 sets, daily range): BP systolic 118–147; BP diastolic 68–84; PULSE 61–95; RESP 19–22
[2018-09-26] MEDS: ALBUTEROL 0.083% (NEB) 2.5 MG/3 ML AMP HHN SCH ×2 (01:59→08:06)
[2018-09-26] MEDS: LANSOPRAZOLE 30 MG CAP PO SCH (05:42)
[2018-09-26] MEDS: ARTIFICIAL TEARS 15 ML OPH BOTH EYES PRN (06:03)
[2018-09-26] MEDS: IPRATROPIUM (NEB) 0.5 MG/2.5 ML AMP HHN SCH (08:06)
--- NOTE | 2018-09-26 08:23 | PN ---
DATE: 09/26/2018 SUBJECTIVE: The patient remains stable. No events overnight. OBJECTIVE: VITAL SIGNS: Blood pressure 142/85, pulse 91, respirations 20, temperature 98.8. HEENT: Head is normocephalic. NECK: Supple. HEART: Regular rate. LUNGS: Show diminished breath sounds at the base. ABDOMEN: Soft, nontender to palpation without rebound or guarding. EXTREMITIES: Negative for clubbing, cyanosis, no edema. DERMATOLOGIC: No rashes. MUSCULOSKELETAL: No joint effusion. NEUROLOGIC: No change in exam. MEDICATIONS: Reviewed. LABORATORY DATA: Reviewed. ASSESSMENT AND PLAN: 1. Nonoliguric acute kidney injury with previously normal baseline creatinine. Etiology of acute ki dney injury is secondary to acute tubular necrosis. Renal function is improved. The patient is stat us post hemodialysis. Continue current treatment plan, continue supportive care and renally dose all medications and avoid nephrotoxins. 2. Anemia. Continue to monitor hemoglobin and hematocrit levels, no need for Epogen. 3. Mineral bone disorder. Monitor calcium and phosphorus levels. 4. Hypomagnesemia. Continue to monitor and replete as needed. 5. Chronic respiratory failure, status post trach. Currently stable. Continue to monitor. 6. Coronary artery disease, status post percutaneous coronary intervention. Continue medical manage ment. 7. Encephalopathy, improved. 8. Dysphagia. Continue modified diet. 9. Acute cerebrovascular accident. 10. Status post shock. 11. Status post cardiac arrest. Dictated By: BHUMI REDDY DO NR/NTS Conf#: [id number] DID#: [id number] CC: DANIAL TUCKER MD; LAUREN GREWAL MD; HARPAL PEDROZA MD;*EndCC*
[2018-09-26] MEDS: CLOPIDOGREL 75 MG TAB PO SCH (08:58)
[2018-09-26] MEDS: SEVELAMER CARBONATE 2.4 GM PKT GTB SCH ×3 (08:58→18:26)
[2018-09-26] MEDS: FOLIC ACID 1 MG TAB NGT SCH (08:58)
[2018-09-26] MEDS: AMLODIPINE 2.5 MG TAB PO SCH (08:58)
[2018-09-26] MEDS: MULTIVIT/CA CARB/B CMPLX/FA TAB PO SCH (08:58)
[2018-09-26] MEDS: ASPIRIN 81 MG TAB PO SCH (08:59)
--- NOTE | 2018-09-26 09:27 | CONS ---
Consult Date/Type/Reason Admit Date/Time Aug 04, 2018 at 23:10 Initial Consult Date 08/05/18 Type of Consultation: cv Requesting Provider: HARPAL AGGARWAL MD Date/Time of Note DATE: 09/26/18 TIME: 09:24 Subjective Interventional cardiology follow-up progress note Subjective: Events noted discussed with the staff and tele was reviewed. no V tachycardia or V fibrillation. she denies any cp to me now She denies shortness of breath at this point tolerating weaning so far is able to to more PT now events noted s/p PCI 100% occluded LAD 08/04 S/P PCI LCX/ OM s/p trach 08/22/18 PCI RCA 09/04/18 Objective: General: Obese female no acute distress s/p trach on O2 HEENT: NC/AT. pupils are equal. round. NECK: . no stridor. s/p trach on oxygen CV: RRR. systolic murmur; no gallop or rubs. PULM: no wheezing mild rhonchi. GI: Obese SOFT, NT, ND, no rebound or guarding s/pPEG Extremity: trace B/L LE edema. no clubbing. neuro: awake and follows commands Psych: Calm now rectal: deferred EKG August 06, 2018 was personally within normal sinus rhythm. T wave inversions anterior and inferior leads ECG 08/07: NSR ST T abn c/w ant/lat ischemia CXR 08/14: Nonspecific patchy bilateral pulmonary opacity, mildly improved on the right. No pneumothorax. Endotracheal tube, nasogastric tube, and right-sided PICC line remain in place. Stable mild cardiomegaly. The osseous structures are remarkable for degenerative enthesopathy of the spine. Chest x-ray done August 06 shows:No evidence for active cardiopulmonary disease. CXR 08/19: Diffuse bilateral reticular nodular infiltrates unchanged. Question bronchopneumonia versus failure. CXR 08/28/18: Allowing for support structures overlying the right base, no significant change. Left mid and bibasilar air space opacities/infiltrates are again present. Lines and tubes are stable ECHO personally reviewed Normal left ventricular cavity size. Normal left ventricular wall thickness. Ejection fraction is visually estimated at 55-65 %. Normal appearance of the mitral valve. Mitral valve is not well visualized. No mitral valve regurgitation is seen. Aortic valve not well visualized. No aortic regurgitation. Normal appearance of the tricuspid valve. Unable to obtain RVSP due to minimal presence of tricuspid regurgitation. No evidence of tricuspid regurgitation. Normal pericardium with no significant pericardial effusion. suboptimal study. Objective Vitals Vital Signs Date Temp Pulse Resp B/P (MAP) Pulse Ox O2 O2 Flow FiO2 Time Delivery Rate 09/26/18 83 18 98 Aerosol 5.0 28 08:16 09/26/18 96.8 138/79 08:00 (98) Intake and Output 09/25/18 09/25/18 09/26/18 1515:00 23:00 07:00 IntakeIntake Total 1000 ml 480 ml OutputOutput Total 750 ml BalanceBalance 250 ml 480 ml Results/Medications Result Diagram: 09/25/18 0757 09/25/18 0757 Medications Current Medications Atorvastatin Calcium (Lipitor) 80 mg DAILY@21 PO Last administered on 09/25/18 20:42; Admin Dose 80 MG; Start 08/05/18 at 21:00 Miscellaneous Information 1 ea NOTE XX ; Start 08/05/18 at 09:00 Acetaminophen (Tylenol Liquid) 650 mg Q4H PRN PO ELEVATED TEMPERATURE Last administered on 09/01/18 00:29; Admin Dose 650 MG; Start 08/05/18 at 11:00 Folic Acid (Folic Acid) 1 mg DAILY NGT Last administered on 09/25/18 09:52; Admin Dose 1 MG; Start 08/09/18 at 09:00 IV Flush (NS 10 ml) 10 ml PRN PRN IV IV PROTOCOL; Start 08/11/18 at 16:30 Labetalol HCl (Labetalol) 10 mg Q4H PRN IV ELEVATED SYSTOLIC BP > 170 Last administered on 08/20/18 16:54; Admin Dose 10 MG; Start 08/14/18 at 19:00 Sevelamer Carbonate (Renvela) 2.4 gm WITH MEALS GTB Last administered on 09/25/18 17:55; Admin Dose 2.4 GM; Start 08/23/18 at 11:30 Ondansetron HCl (Zofran Inj) 4 mg Q4H PRN IV NAUSEA AND/OR VOMITING Last administered on 09/09/18 11:21; Admin Dose 4 MG; Start 08/23/18 at 14:30 Sodium Chloride (NS) -To prime the dialy... DIRECTED FOR HD PRN IV HD; Start 08/26/18 at 12:00 Nitroglycerin (Nitroglycerin 2% Oint) 0.5 inch Q6 PRN TD CHEST PAIN; Start 08/27/18 at 00:30 Lorazepam (Ativan) 1 mg Q4H PRN IV ANXIETY Last administered on 08/27/18 04:14; Admin Dose 1 MG; Start 08/27/18 at 04:30 Eye Lubricant (Artificial Tears Oph) 2 drop Q2H PRN BOTH EYES dry eyes Last a dministered on 09/26/18 06:03; Admin Dose 2 DROP; Start 08/28/18 at 01:30 Morphine Sulfate (morphine) 3 mg Q1H PRN GTB PAIN NOT RELIEVED BY OTHERS Last administered on 09/09/18 09:45; Admin Dose 3 MG; Start 08/29/18 at 12:00 Oxycodone HCl (Roxicodone) 5 mg Q4H PRN PO MODERATE PAIN LEVEL 4-6 Last a dministered on 09/19/18 13:00; Admin Dose 5 MG; Start 09/01/18 at 10:00 Miscellaneous Information (* Miscellaneous Pharmacy Order) ASPIRIN ORDER WILL ... Q12 XX Last administered on 09/22/18 21:00; Admin Dose 1 EA; Start 09/05/18 at 10:00 Heparin Sodium (Porcine) (Heparin (5000 Units/1ml)) 5,000 unit BID SC Last administered on 09/25/18 21:51; Admin Dose 5,000 UNIT; Start 09/08/18 at 21:00 Hydralazine HCl (Apresoline) 10 mg Q2 PRN IV ELEVATED SYSTOLIC BP Last administered on 09/16/18 15:50; Admin Dose 10 MG; Start 09/12/18 at 16:30 Carvedilol (Coreg) 50 mg BID PO Last administered on 09/25/18 20:43; Admin Dose 50 MG; Start 09/14/18 at 21:00 Amlodipine Besylate (Norvasc) 2.5 mg DAILY PO Last administered on 09/25/18 09:53; Admin Dose 2.5 MG; Start 09/23/18 at 09:00 Aspirin (Aspirin) 81 mg DAILY PO Last administered on 09/25/18 09:53; Admin Dose 81 MG; Start 09/23/18 at 09:00 Clopidogrel Bisulfate (plaVIX) 75 mg DAILY PO Last administered on 09/25/18 09:53; Admin Dose 75 MG; Start 09/23/18 at 09:00 Lansoprazole (Prevacid) 30 mg DAILY@06 PO Last administered on 09/26/18at 05:42; Admin Dose 30 MG; Start 09/23/18 at 06:00 Multivit/Ca Carb/ B Cmplx/FA/Prenat (Shalonda-Jaylen) 1 tab DAILY PO Last administered on 09/25/18 09:53; Admin Dose 1 TAB; Start 09/23/18 at 09:00 Furosemide (Lasix) 20 mg DAILY PO ; Start 09/26/18 at 09:30 Tiotropium [place] (Spiriva) 1 inh DAILY INH ; Start 09/26/18 at 11:30 Fluticasone/ Vilanterol (Breo Ellipta 100-25 Mcg Inh) 1 inh DAILY INH ; Start 09/26/18 at 10:30 Assessment/Plan Hospital Course (Demo Recall) 1. s/p V. fib cardiac arrest 2. Acute myocardial infarction 3. Status post emergent PCI of the 100% occluded LAD as well as PTCA of the diagonal and PCI LCX/ OM , sp PCI RCA 09/04 4. Diabetes 5. Respiratory failure status post trach: on weanign 6. Hypertension 7. Renal failure : acute on chronic: resolved now 8. Likely history of congestive heart failure 9. Dyslipidemia 10. Encephalopathy: improved now 11. Morbid obesity 12. Anemia 13. elevated LFT 14. fever, bacteremia pneumonia 15. Malnutrition, anasarca . 16. septic shock and staph aureus bacteremia 17. oropharyngeal bleeding 18. CVA Recommendations: Continue with aspirin/ plavix Antibiotic management as per ID recommendation f/u renal fx. it has significantly improved now weaning as tolerated. We will defer to pulmonary team Continue with Coreg 50 bid . cont NORVASC Transfusion prn given her severe anemia and PR/ VF tele monitoring DVT prophylaxis replace Mg and k prn PT as tolerated Thank you for his referral. We will continue to follow along with you LOIS JOHNSON MD [facility] LOIS JOHNSON MD September 26, 2018 09:27
[2018-09-26] MEDS: HEPARIN 5,000 UNIT/1 ML VIAL SC SCH ×2 (09:40→20:16)
[2018-09-26] MEDS ORDERED: ATOR-2 PO (10:33)
[2018-09-26] MEDS ORDERED: CLOP75TA28 PO (10:33)
[2018-09-26] MEDS ORDERED: AMLO2.5T78 PO (10:33)
[2018-09-26] MEDS ORDERED: ADV10050 INHALATION (10:33)
[2018-09-26] MEDS ORDERED: ASPI-831 PO (10:33)
[2018-09-26] MEDS ORDERED: FOLI-49 PO (10:33)
[2018-09-26] MEDS ORDERED: TIOT18CA INH (10:33)
[2018-09-26] MEDS ORDERED: NEPH PO (10:33)
[2018-09-26] MEDS ORDERED: LAS20 PO (10:33)
[2018-09-26] MEDS ORDERED: CARV25TA79 PO (10:33)
[2018-09-26] MEDS ORDERED: SEVE2.4P3 PO (10:35)
--- NOTE | 2018-09-26 10:42 | PDOCDIS ---
Discharge Instructions CONDITION [id number] Patient Condition: [id number] Stable ACTIVITY: [id number] Activity Restrictions: [id number] Slowly Increase Activity FOLLOW UP/APPOINTMENTS Follow-up Plan 1. Please follow-up with cartridge gauger, Dr. Braeden Rashid, for further management of your coronary artery disease and recent cardiac catheterization with stent placement. You will need to be on aspirin and Plavix for 1 year. 2. Please follow-up with Dr. Margaret Montana, neurologist. For further management of your bilateral strokes. 3. Please follow-up with zumba instructor, Dr. Dontrell Leos, for further management of your renal failure that has now improved. 4. Please follow-up with Dr. Padgett, Ear/Nose/Throat doctor for further management of your tracheostomy. 5. Please follow-up with Dr. Tyrone Cox, for further management of your lung issues 6. Please take all medications prescribed at discharge, please obtain refills from your primary care doctor that you will see within 2 weeks. HARPAL PEDROZA September 26, 2018 10:42
--- NOTE | 2018-09-26 10:55 | DS ---
Date/Time of Note Date/Time of Note DATE: 09/26/18 TIME: 10:55 Discharge Summary Admission/Discharge Info Admit Date/Time Aug 04, 2018 at 23:10 Discharge Date/Time Patient Condition: Stable Hospital Course Patient is a female who presented to [facility] with cardiopulmonary arrest and ST elevation NE. Patient underwent emergent cardiac catheterization and hypothermia protocol. Patient subsequently had an extensive stay spanning nearly 2 months here at [facility] [place] for multiple issues including further coronary artery disease and further cardiac catheterization, renal failure which required dialysis, acute encephalopathy with bilateral strokes, as well as tracheostomy due to respiratory failure. Patient was also treated for multiple infections during this time. At the time of discharge patient's pneumonia and bacteremia and other infectious etiologies were treated. Patient's renal failure had reversed and is now off dialysis. Patient's coronary artery disease status is stable but will need further work-up in the outpatient setting including initiation of an ACEi or arb that was not started during this hospitalization due to recent renal failure. Patient's acute encephalopathy completely reversed and patient is now alert and oriented x4 and is now able to walk with a walker somewhat. Patient's tracheostomy is still in place due to possible stenosis however ENT also saw the patient and recommended that she follow-up outpatient for possible elective procedure for tracheostomy removal, patient will also see pulmonology in conjunction with his tracheostomy care. Patient at this time does not want to go to a residential facility and would like to return home. Home health physical therapy, oxygen, trach car e, instructions to family were given. Patient will be provided with all necessary prescriptions, and strict instructions on how to follow-up. Patient already has an appointment with her primary care provider in less than 2 weeks. Patient will be discharged once all final logistical arrangements are arranged. Discharge diagnosis Acute hypoxic respiratory failure, resolving Coronary artery disease status post PCI x3, stable Acute metabolic encephalopathy, resolved Bilateral CVA, no residual deficit, stable Anemia, stable Acute renal failure, now off hemodialysis, stable Bilateral pneumonia, resolved Septic shock, resolved Bacteremia, resolved V. fib cardiac arrest, resolving ST elevation NE, resolved Home Meds Active Scripts Sevelamer Carbonate* (Renvela*) 2.4 Gm Powd.pack, 2.4 GM PO WITH MEALS for 30 Days, 1 Refill Prov:HARPAL PEDROZA 09/26/18 Folic Acid* (Folic Acid*) 1 Mg Tablet, 1 MG PO DAILY for 30 Days, #30 TAB 1 Refill Prov:HARPAL PEDROZA 09/26/18 Multivit/Ca Carb/B Cmplx/Fa* (Shalonda-Jaylen*) 1 Tab Tab, 1 TAB PO DAILY for 30 Days, #30 TAB 1 Refill Prov:HARPAL PEDROZA 09/26/18 Salmeterol Xinaf-Fluticasone* (Advair*) 100/50 Diskus Inhaler, 1 INH INHALATION BID, #1 INHALER 1 Refill Alternative: Breo ellipta 100/25mcg #1 inhaler, 30 day supply, 1 puff inhaled daily. Refill #1 Prov:HARPAL PEDROZA 09/26/18 Furosemide (Lasix) 20 Mg Tab, 20 MG PO DAILY for 30 Days, #30 TAB 1 Refill Prov:HARPAL PEDROZA 09/26/18 Clopidogrel Bisulfate (Clopidogrel) 75 Mg Tablet, 75 MG PO DAILY for 30 Days, #30 TAB 5 Refills Prov:HARPAL PEDROZA 09/26/18 Aspirin (Aspirin) 81 Mg Chew, 81 MG PO DAILY for 30 Days, #30 TAB 5 Refills Prov:HARPAL PEDROZA 09/26/18 Carvedilol* (Carvedilol*) 25 Mg Tablet, 50 MG PO BID for 30 Days, #120 TAB 1 Refill Prov:HARPAL PEDROZA 09/26/18 Atorvastatin* (Atorvastatin*) 80 Mg Tablet, 80 MG PO DAILY@21 for 30 Days, #30 TAB 1 Refill Prov:HARPAL PEDROZA 09/26/18 Amlodipine Besylate* (Amlodipine Besylate*) 2.5 Mg Tablet, 2.5 MG PO DAILY for 30 Days, #30 TAB 1 Refill Prov:HARPAL PEDROZA 09/26/18 Tiotropium [place]* (Spiriva*) 18 Mcg Cap.w.dev, 1 INH INH DAILY for 30 Days, #1 INHALER 1 Refill Prov:HARPAL PEDROZA 09/26/18 Follow-up Plan 1. Please follow-up with civil engineering draftsperson, Dr. Braeden Rashid, for further management of your coronary artery disease and recent cardiac catheterization with stent placement. You will need to be on aspirin and Plavix for 1 year. 2. Please follow-up with Dr. Margaret Montana, neurologist. For further management of your bilateral strokes. 3. Please follow-up with holistic health practitioner, Dr. Dontrell Leos, for further management of your renal failure that has now improved. 4. Please follow-up with Dr. Padgett, Ear/Nose/Throat doctor for further adriana gement of your tracheostomy. 5. Please follow-up with Dr. Tyrone Cox, for further management of your lung issues 6. Please take all medications prescribed at discharge, please obtain refills from your primary care doctor that you will see within 2 weeks. Primary Care Provider [facility] Time spent on discharge: > 30 minutes Pending Labs Laboratory Tests Test 09/26/18 09:50 White Blood Count 6.2 10^3/ul (4.8-10.8) Red Blood Count 3.79 10^6/ul (4.20-5.40) Hemoglobin 10.8 g/dl (12.0-16.0) Hematocrit 35.8 % (37.0-47.0) Mean Corpuscular Volume 94.5 fl (82.0-101.0) Mean Corpuscular Hemoglobin 28.5 pg (29.0-33.0) Mean Corpuscular Hemoglobin Concent 30.2 g/dl (32.0-37.0) Red Cell Distribution Width 14.8 % (11.5-14.5) Platelet Count 182 10^3/UL (140-415) Mean Platelet Volume 11.5 fl (7.4-10.4) Immature Granulocytes % 0.300 % (0.001-0.429) Neutrophils % 39.4 % (39.0-77.0) Lymphocytes % 47.2 % (15.0-51.0) Monocytes % 8.7 % (0.0-11.0) Eosinophils % 3.4 % (0.0-7.0) Basophils % 1.0 % (0.0-2.0) Nucleated Red Blood Cells % 0.0 /100WBC (0.0-0.0) Immature Granulocytes # 0.020 10^3/ul (0.0-0.031) Neutrophils # 2.4 10^3/ul (1.6-7.5) Lymphocytes # 2.9 10^3/ul (0.8-2.9) Monocytes # 0.5 10^3/ul (0.3-0.9) Eosinophils # 0.2 10^3/ul (0.0-0.5) Basophils # 0.1 10^3/ul (0.0-0.1) Nucleated Red Blood Cells # 0.0 10^3/ul (0.0-0.0) Sodium Level 139 mmol/L (135-144) Potassium Level 4.1 mmol/L (3.5-5.1) Chloride Level 106 mmol/L (97-110) Carbon Dioxide Level 24 mmol/L (21-31) Anion Gap 9 (5-13) Blood Urea Nitrogen 18 mg/dl (7-20) Creatinine 1.37 mg/dl (0.44-1.00) Est Glomerular Filtrat Rate mL/min 43 mL/min (>60) Glucose Level 116 mg/dl (70-220) Calcium Level 9.7 mg/dl (8.4-10.2) Total Bilirubin 0.5 mg/dl (0.2-1.3) Direct Bilirubin 0.00 mg/dl (0.00-0.20) Indirect Bilirubin 0.5 mg/dl (0-1.1) Aspartate Amino Transf (AST/SGOT) 37 IU/L (15-46) Alanine Aminotransferase (ALT/SGPT) 35 IU/L (13-69) Alkaline Phosphatase 140 IU/L (42-121) Total Protein 7.4 g/dl (6.1-8.1) Albumin 3.4 g/dl (3.3-4.9) Globulin 4.00 g/dl (1.3-3.2) Albumin/Globulin Ratio 0.85 HARPAL PEDROZA September 26, 2018 10:55
[2018-09-26] MEDS: FLUTICASONE/VILANTEROL 100-25 INH SCH (12:22)
[2018-09-26] MEDS: FUROSEMIDE 20 MG TAB PO SCH (12:22)
[2018-09-26] MEDS: TIOTROPIUM 18 MCG CAPSULE INHA DEV INH SCH (12:22)
[2018-09-26] MEDS: ATORVASTATIN 80 MG TAB PO SCH (20:09)
[2018-09-27 00:19] VITALS: PULSE 90
[2018-09-27 04:09] VITALS: PULSE 85
[2018-09-27 04:43] VITALS: BP 148/88; PULSE 89; RESP 19
[2018-09-27] MEDS: LANSOPRAZOLE 30 MG CAP PO SCH (05:07)
[2018-09-27 07:21] VITALS: BP 153/77; PULSE 84; RESP 16
[2018-09-27 08:32] VITALS: PULSE 87
--- NOTE | 2018-09-27 08:41 | PN ---
DATE: 09/27/2018 SUBJECTIVE: The patient is stable. No events overnight. OBJECTIVE: VITAL SIGNS: Blood pressure is 153/76, pulse 84, respirations 16, temperature 98.0. HEENT: Head is normocephalic. NECK: Supple. HEART: Regular rate. LUNGS: Show diminished breath sounds at base. ABDOMEN: Soft, nontender to palpation without rebound or guarding. EXTREMITIES: No clubbing, cyanosis, no edema. DERMATOLOGIC: No rashes. MUSCULOSKELETAL: No joint effusion. NEUROLOGIC: No change in exam. MEDICATIONS: Reviewed. LABORATORY DATA: Reviewed. ASSESSMENT AND PLAN: 1. Nonoliguric acute kidney injury with previously normal baseline creatinine. Etiology of acute ki dney injury is secondary to acute tubular necrosis. Renal function is improved. The patient is stat us post hemodialysis. Continue current treatment plan, supportive care, and renally dose all medicat ions. 2. Anemia. Continue to monitor hemoglobin and hematocrit levels. 3. Mineral bone disorder. Monitor calcium and phosphorus levels. Continue phosphate binders. 4. Hypomagnesemia. Continue to monitor and replete. 5. Chronic respiratory failure, status post tracheostomy, currently stable. Continue to monitor. 6. Coronary artery disease. Continue medical management. 7. Encephalopathy, improved. 8. Acute cerebrovascular accident. Continue medical management. 9. Status post shock. Dictated By: BHUMI REDDY DO NR/NTS Conf#: [id number] DID#: [id number] CC: HARPAL PEDROZA MD; DANIAL TUCKER MD; LAUREN GREWAL MD;*EndCC*
--- NOTE | 2018-09-27 08:46 | CONS ---
Consult Date/Type/Reason Admit Date/Time Aug 04, 2018 at 23:10 Initial Consult Date 08/05/18 Type of Consultation: cv Requesting Provider: HARPAL AGGARWAL MD Date/Time of Note DATE: 09/27/18 TIME: 08:43 Subjective Interventional cardiology follow-up progress note Subjective: Events noted discussed with the staff and tele was reviewed. no V tachycardia or V fibrillation. she denies any cp to me now She denies shortness of breath at this point tolerating weaning so far and is currently off O2 is able to to more PT now events noted s/p PCI 100% occluded LAD 08/04 S/P PCI LCX/ OM s/p trach 08/22/18 PCI RCA 09/04/18 Objective: General: Obese female no acute distress s/p trach off O2 HEENT: NC/AT. pupils are equal. round. NECK: . no stridor. s/p trach on oxygen CV: RRR. systolic murmur; no gallop or rubs. PULM: no wheezing mild rhonchi. GI: Obese SOFT, NT, ND, no rebound or guarding Extremity: trace B/L LE edema. no clubbing. neuro: awake and follows commands Psych: Calm now rectal: deferred EKG August 06, 2018 was personally within normal sinus rhythm. T wave inversions anterior and inferior leads ECG 08/07: NSR ST T abn c/w ant/lat ischemia CXR 08/14: Nonspecific patchy bilateral pulmonary opacity, mildly improved on the right. No pneumothorax. Endotracheal tube, nasogastric tube, and right-sided PICC line remain in place. Stable mild cardiomegaly. The osseous structures are remarkable for degenerative enthesopathy of the spine. Chest x-ray done August 06 shows:No evidence for active cardiopulmonary disease. CXR 08/19: Diffuse bilateral reticular nodular infiltrates unchanged. Question bronchopneumonia versus failure. CXR 08/28/18: Allowing for support structures overlying the right base, no significant change. Left mid and bibasilar air space opacities/infiltrates are again present. Lines and tubes are stable ECHO personally reviewed Normal left ventricular cavity size. Normal left ventricular wall thickness. Ejection fraction is visually estimated at 55-65 %. Normal appearance of the mitral valve. Mitral valve is not well visualized. No mitral valve regurgitation is seen. Aortic valve not well visualized. No aortic regurgitation. Normal appearance of the tricuspid valve. Unable to obtain RVSP due to minimal presence of tricuspid regurgitation. No evidence of tricuspid regurgitation. Normal pericardium with no significant pericardial effusion. suboptimal study. Objective Vitals Vital Signs Date Temp Pulse Resp B/P (MAP) Pulse Ox O2 O2 Flow FiO2 Time Delivery Rate 09/27/18 87 08:32 09/27/18 98.0 16 153/77 97 Room Air 07:21 (102) 09/26/18 21 20:50 09/26/18 5.0 16:33 Intake and Output 09/26/18 09/26/18 09/27/18 1414:59 22:59 06:59 IntakeIntake Total 400 ml BalanceBalance 400 ml Results/Medications Result Diagram: 09/27/1872909/27/18729 Results 24 hrs Laboratory Tests Test 09/26/18 09:50 09/27/18 07:30 White Blood Count 6.2 6.4 Red Blood Count 3.79 L 3.62 L Hemoglobin 10.8 L 10.5 L Hematocrit 35.8 L 34.3 L Mean Corpuscular Volume 94.5 94.8 Mean Corpuscular Hemoglobin 28.5 L 29.0 Mean Corpuscular Hemoglobin Concent 30.2 L 30.6 L Red Cell Distribution Width 14.8 H 14.6 H Platelet Count 182 181 Mean Platelet Volume 11.5 H 11.3 H Immature Granulocytes % 0.300 0.200 Neutrophils % 39.4 36.2 L Lymphocytes % 47.2 52.1 H Monocytes % 8.7 7.6 Eosinophils % 3.4 3.1 Basophils % 1.0 0.8 Nucleated Red Blood Cells % 0.0 0.0 Immature Granulocytes # 0.020 0.010 Neutrophils # 2.4 2.3 Lymphocytes # 2.9 3.3 H Monocytes # 0.5 0.5 Eosinophils # 0.2 0.2 Basophils # 0.1 0.1 Nucleated Red Blood Cells # 0.0 0.0 Sodium Level 139 140 Potassium Level 4.1 4.1 Chloride Level 106 106 Carbon Dioxide Level 24 24 Anion Gap 9 10 Blood Urea Nitrogen 18 19 Creatinine 1.37 H 1.27 H Est Glomerular Filtrat Rate mL/min 43 L 47 L Glucose Level 116 90 Calcium Level 9.7 9.9 Total Bilirubin 0.5 Direct Bilirubin 0.00 Indirect Bilirubin 0.5 Aspartate Amino Transf (AST/SGOT) 37 Alanine Aminotransferase (ALT/SGPT) 35 Alkaline Phosphatase 140 H Total Protein 7.4 Albumin 3.4 Globulin 4.00 H Albumin/Globulin Ratio 0.85 Phosphorus Level 6.2 H Magnesium Level 2.0 Home Meds Active Scripts Sevelamer Carbonate* (Renvela*) 2.4 Gm Powd.pack, 2.4 GM PO WITH MEALS for 30 Days, 1 Refill Prov:HARPAL PEDROZA 09/26/18 Folic Acid* (Folic Acid*) 1 Mg Tablet, 1 MG PO DAILY for 30 Days, #30 TAB 1 Refill Prov:HARPAL PEDROZA 09/26/18 Multivit/Ca Carb/B Cmplx/Fa* (Shalonda-Jaylen*) 1 Tab Tab, 1 TAB PO DAILY for 30 Days, #30 TAB 1 Refill Prov:HAPRAL PEDROZA 09/26/18 Salmeterol Xinaf-Fluticasone* (Advair*) 100/50 Diskus Inhaler, 1 INH INHALATION BID, #1 INHALER 1 Refill Alternative: Breo ellipta 100/25mcg #1 inhaler, 30 day supply, 1 puff inhaled daily. Refill #1 Prov:HARPAL PEDROZA 09/26/18 Furosemide (Lasix) 20 Mg Tab, 20 MG PO DAILY for 30 Days, #30 TAB 1 Refill Prov:HARPAL PEDROZA 09/26/18 Clopidogrel Bisulfate (Clopidogrel) 75 Mg Tablet, 75 MG PO DAILY for 30 Days, #30 TAB 5 Refills Prov:HARPAL PEDROZA 09/26/18 Aspirin (Aspirin) 81 Mg Chew, 81 MG PO DAILY for 30 Days, #30 TAB 5 Refills Prov:HARPAL PEDROZA 09/26/18 Carvedilol* (Carvedilol*) 25 Mg Tablet, 50 MG PO BID for 30 Days, #120 TAB 1 Refill Prov:HARPAL PEDROZA 09/26/18 Atorvastatin* (Atorvastatin*) 80 Mg Tablet, 80 MG PO DAILY@21 for 30 Days, #30 TAB 1 Refill Prov:HARPAL PEDROZA 09/26/18 Amlodipine Besylate* (Amlodipine Besylate*) 2.5 Mg Tablet, 2.5 MG PO DAILY for 30 Days, #30 TAB 1 Refill Prov:HARPAL PEDROZA 09/26/18 Tiotropium [place]* (Spiriva*) 18 Mcg Cap.w.dev, 1 INH INH DAILY for 30 Days, #1 INHALER 1 Refill Prov:HARPAL PEDROZA 09/26/18 Medications Current Medications Atorvastatin Calcium (Lipitor) 80 mg DAILY@21 PO Last administered on 09/26/18 20:09; Admin Dose 80 MG; Start 08/05/18 at 21:00 Miscellaneous Information 1 ea NOTE XX ; Start 08/05/18 at 09:00 Acetaminophen (Tylenol Liquid) 650 mg Q4H PRN PO ELEVATED TEMPERATURE Last administered on 09/01/18 00:29; Admin Dose 650 MG; Start 08/05/18 at 11:00 Folic Acid (Folic Acid) 1 mg DAILY NGT Last administered on 09/26/18 08:58; Admin Dose 1 MG; Start 08/09/18 at 09:00 IV Flush (NS 10 ml) 10 ml PRN PRN IV IV PROTOCOL; Start 08/11/18 at 16:30 Labetalol HCl (Labetalol) 10 mg Q4H PRN IV ELEVATED SYSTOLIC BP > 170 Last administered on 08/20/18 16:54; Admin Dose 10 MG; Start 08/14/18 at 19:00 Sevelamer Carbonate (Renvela) 2.4 gm WITH MEALS GTB Last administered on 09/26/18 18:26; Admin Dose 2.4 GM; Start 08/23/18 at 11:30 Ondansetron HCl (Zofran Inj) 4 mg Q4H PRN IV NAUSEA AND/OR VOMITING Last administered on 09/09/18at 11:21; Admin Dose 4 MG; Start 08/23/18 at 14:30 Sodium Chloride (NS) -To prime the dialy... DIRECTED FOR HD PRN IV HD; Start 08/26/18 at 12:00 Nitroglycerin (Nitroglycerin 2% Oint) 0.5 inch Q6 PRN TD CHEST PAIN; Start 08/27/18 at 00:30 Lorazepam (Ativan) 1 mg Q4H PRN IV ANXIETY Last administered on 08/27/18 04:14; Admin Dose 1 MG; Start 08/27/18 at 04:30 Eye Lubricant (Artificial Tears Oph) 2 drop Q2H PRN BOTH EYES dry eyes Last administered on 09/26/18 06:03; Admin Dose 2 DROP; Start 08/28/18 at 01:30 Morphine Sulfate (morphine) 3 mg Q1H PRN GTB PAIN NOT RELIEVED BY OTHERS Last administered on 09/09/18 09:45; Admin Dose 3 MG; Start 08/29/18 at 12:00 Oxycodone HCl (Roxicodone) 5 mg Q4H PRN PO MODERATE PAIN LEVEL 4-6 Last administered on 09/19/18 13:00; Admin Dose 5 MG; Start 09/01/18 at 10:00 Miscellaneous Information (* Miscellaneous Pharmacy Order) ASPIRIN ORDER WILL ... Q12 XX Last administered on 09/22/18 21:00; Admin Dose 1 EA; Start 09/05/18 at 10:00 Heparin Sodium (Porcine) (Heparin (5000 Units/1ml)) 5,000 unit BID SC Last ad ministered on 09/26/18 20:16; Admin Dose 5,000 UNIT; Start 09/08/18 at 21:00 Hydralazine HCl (Apresoline) 10 mg Q2 PRN IV ELEVATED SYSTOLIC BP Last administered on 09/16/18 15:50; Admin Dose 10 MG; Start 09/12/18 at 16:30 Carvedilol (Coreg) 50 mg BID PO Last administered on 09/26/18 20:10; Admin Dose 50 MG; Start 09/14/18 at 21:00 Amlodipine Besylate (Norvasc) 2.5 mg DAILY PO Last administered on 09/26/18 08:58; Admin Dose 2.5 MG; Start 09/23/18 at 09:00 Aspirin (Aspirin) 81 mg DAILY PO Last administered on 09/26/18 08:59; Admin Dose 81 MG; Start 09/23/18 at 09:00 Clopidogrel Bisulfate (plaVIX) 75 mg DAILY PO Last administered on 09/26/18 08:58; Admin Dose 75 MG; Start 09/23/18 at 09:00 Lansoprazole (Prevacid) 30 mg DAILY@06 PO Last administered on 09/27/18 05:07; Admin Dose 30 MG; Start 09/23/18 at 06:00 Multivit/Ca Carb/ B Cmplx/FA/Prenat (Shalonda-Jaylen) 1 tab DAILY PO Last administere d on 09/26/18 08:58; Admin Dose 1 TAB; Start 09/23/18 at 09:00 Furosemide (Lasix) 20 mg DAILY PO Last administered on 09/26/18 12:22; Admin Dose 20 MG; Start 09/26/18 at 09:30 Tiotropium [place] (Spiriva) 1 inh DAILY INH Last administered on 09/26/18 12:22; Admin Dose 1 INH; Start 09/26/18 at 11:30 Fluticasone/ Vilanterol (Breo Ellipta 100-25 Mcg Inh) 1 inh DAILY INH Last administered on 09/26/18 12:22; Admin Dose 1 INH; Start 09/26/18 at 10:30 Assessment/Plan Hospital Course (Demo Recall) 1. s/p V. fib cardiac arrest 2. Acute myocardial infarction 3. Status post emergent PCI of the 100% occluded LAD as well as PTCA of the diagonal and PCI LCX/ OM , sp PCI RCA 09/04 4. Diabetes 5. Respiratory failure status post trach: on weanign 6. Hypertension 7. Renal failure : acute on chronic: resolved now 8. Likely history of congestive heart failure 9. Dyslipidemia 10. Encephalopathy: improved now 11. Morbid obesity 12. Anemia 13. elevated LFT 14. fever, bacteremia pneumonia 15. Malnutrition, anasarca . 16. septic shock and staph aureus bacteremia 17. oropharyngeal bleeding 18. CVA Recommendations: Continue with aspirin/ plavix Antibiotic management as per ID recommendation f/u renal fx. it has significantly improved now weaning as tolerated. We will defer to pulmonary team Continue with Coreg 50 bid . cont NORVASC Transfusion prn given her severe anemia and CT/ VF tele monitoring DVT prophylaxis replace Mg and k prn PT as tolerated Thank you for his referral. We will continue to follow along with you LOIS JOHNSON MD [facility] LOIS JOHNSON MD September 27, 2018 08:46
[2018-09-27] MEDS ORDERED: MAGNESIUM SULFATE 2 GM/50 ML 50 ML IVPB ONE (09:00)
[2018-09-27] MEDS: ASPIRIN 81 MG TAB PO SCH (09:28)
[2018-09-27] MEDS: FOLIC ACID 1 MG TAB NGT SCH (09:28)
[2018-09-27] MEDS: CLOPIDOGREL 75 MG TAB PO SCH (09:29)
[2018-09-27] MEDS: MULTIVIT/CA CARB/B CMPLX/FA TAB PO SCH (09:29)
[2018-09-27] MEDS: AMLODIPINE 2.5 MG TAB PO SCH (09:30)
[2018-09-27] MEDS: SEVELAMER CARBONATE 2.4 GM PKT GTB SCH ×2 (09:30→11:36)
[2018-09-27] MEDS: FUROSEMIDE 20 MG TAB PO SCH (09:30)
[2018-09-27] MEDS: HEPARIN 5,000 UNIT/1 ML VIAL SC SCH (09:31)
[2018-09-27] MEDS: FLUTICASONE/VILANTEROL 100-25 INH SCH (09:33)
[2018-09-27] MEDS: TIOTROPIUM 18 MCG CAPSULE INHA DEV INH SCH (09:38)
--- NOTE | 2018-09-27 11:02 | DS ---
Date/Time of Note Date/Time of Note DATE: 09/27/18 TIME: 11:01 Discharge Summary Admission/Discharge Info Admit Date/Time Aug 04, 2018 at 23:10 Discharge Date/Time Patient Condition: Stable Hospital Course UPdate 09/27/18 Patient's discharge was held as we were confirming supplies to be sent to her house, patient's creatinine also mildly elevated, now it is trending downwards, patient stable for discharge. All supplies confirmed to be delivered will be provided at discharge. Patient understands to follow-up and will be given instructions and phone numbers to all her providers. Patient is a female who presented to [facility] with cardiopulmonary arrest and ST elevation [place]. Patient underwent emergent cardiac catheterization and hypothermia protocol. Patient subsequently had an extensive stay spanning nearly 2 months here at [facility] for multiple issues including further coronary artery disease and further cardiac catheterization, renal failure which required dialysis, acute encephalopathy with bilateral strokes, as well as tracheostomy due to respiratory failure. Patient was also treated for multiple infections during this time. At the time of discharge patient's pneumonia and bacteremia and other infectious etiologies were treated. Patient's renal failure had reversed and is now off dialysis. Patient's coronary artery disease status is stable but will need further work-up in the outpatient setting including initiation of an ACEi or arb that was not started during this hospitalization due to recent renal failure. Patient's acute encephalopathy completely reversed and patient is now alert and oriented x4 and is now able to walk with a walker somewhat. Patient's tracheostomy is still in place due to possible stenosis however ENT also saw the patient and recommended that she follow-up outpatient for possible elective procedure for tracheostomy removal, patient will also see pulmonology in conjunction with his tracheostomy care. Patient at this time does not want to go to a fpc facility and would like to return home. Home health physical therapy, oxygen, trach care, instructions to family were given. Patient will be provided with all necessary prescriptions, and strict instructions on how to follow-up. Patient already has an appointment with her primary care provider in less than 2 weeks. Patient will be discharged once all final logistical arrangements are arranged. Discharge diagnosis Acute hypoxic respiratory failure, resolving Coronary artery disease status post PCI x3, stable Acute metabolic encephalopathy, resolved Bilateral CVA, no residual deficit, stable Anemia, stable Acute renal failure, now off hemodialysis, stable Bilateral pneumonia, resolved Septic shock, resolved Bacteremia, resolved V. fib cardiac arrest, resolving ST elevation [place], resolved Home Meds Active Scripts Sevelamer Carbonate* (Renvela*) 2.4 Gm Powd.pack, 2.4 GM PO WITH MEALS for 30 Days, 1 Refill Prov:HARPAL PEDROZA 09/26/18 Folic Acid* (Folic Acid*) 1 Mg Tablet, 1 MG PO DAILY for 30 Days, #30 TAB 1 Refill Prov:HARPAL PEDROZA 09/26/18 Multivit/Ca Carb/B Cmplx/Fa* (Shalonda-Jaylen*) 1 Tab Tab, 1 TAB PO DAILY for 30 Days, #30 TAB 1 Refill Prov:HARPAL PEDROZA 09/26/18 Salmeterol Xinaf-Fluticasone* (Advair*) 100/50 Diskus Inhaler, 1 INH INHALATION BID, #1 INHALER 1 Refill Alternative: Breo ellipta 100/25mcg #1 inhaler, 30 day supply, 1 puff inhaled daily. Refill #1 Prov:HARPAL PEDROZA 09/26/18 Furosemide (Lasix) 20 Mg Tab, 20 MG PO DAILY for 30 Days, #30 TAB 1 Refill Prov:HARPAL PEDROZA 09/26/18 Clopidogrel Bisulfate (Clopidogrel) 75 Mg Tablet, 75 MG PO DAILY for 30 Days, #30 TAB 5 Refills Prov:HARPAL PEDROZA 09/26/18 Aspirin (Aspirin) 81 Mg Chew, 81 MG PO DAILY for 30 Days, #30 TAB 5 Refills Prov:HARPAL PEDROZA 09/26/18 Carvedilol* (Carvedilol*) 25 Mg Tablet, 50 MG PO BID for 30 Days, #120 TAB 1 Refill Prov:HARPAL PEDROZA 09/26/18 Atorvastatin* (Atorvastatin*) 80 Mg Tablet, 80 MG PO DAILY@21 for 30 Days, #30 TAB 1 Refill Prov:HARPAL PEDROZA 09/26/18 Amlodipine Besylate* (Amlodipine Besylate*) 2.5 Mg Tablet, 2.5 MG PO DAILY for 30 Days, #30 TAB 1 Refill Prov:HARPAL PEDROZA 09/26/18 Tiotropium [place]* (Spiriva*) 18 Mcg Cap.w.dev, 1 INH INH DAILY for 30 Days, #1 INHALER 1 Refill Prov:HARPAL PEDROZA 09/26/18 Follow-up Plan 1. Please follow-up with assembler tractor, Dr. Braeden Rashid, for further management of your coronary artery disease and recent cardiac catheterization with stent placement. You will need to be on aspirin and Plavix for 1 year. 2. Please follow-up with Dr. Margaret Montana, neurologist. For further management of your bilateral strokes. 3. Please follow-up with entry level civil engineer, Dr. Dontrell Leos, for further management of your renal failure that has now improved. 4. Please follow-up with Dr. Padgett, Ear/Nose/Throat doctor for further management of your tracheostomy. 5. Please follow-up with Dr. Tyrone Cox, for further management of your lung issues 6. Please take all medications prescribed at discharge, please obtain refills from your primary care doctor that you will see within 2 weeks. Primary Care Provider [facility] Time spent on discharge: > 30 minutes Pending Labs Laboratory Tests Test 09/27/18 07:30 White Blood Count 6.4 10^3/ul (4.8-10.8) Red Blood Count 3.62 10^6/ul (4.20-5.40) Hemoglobin 10.5 g/dl (12.0-16.0) Hematocrit 34.3 % (37.0-47.0) Mean Corpuscular Volume 94.8 fl (82.0-101.0) Mean Corpuscular Hemoglobin 29.0 pg (29.0-33.0) Mean Corpuscular Hemoglobin Concent 30.6 g/dl (32.0-37.0) Red Cell Distribution Width 14.6 % (11.5-14.5) Platelet Count 181 10^3/UL (140-415) Mean Platelet Volume 11.3 fl (7.4-10.4) Immature Granulocytes % 0.200 % (0.001-0.429) Neutrophils % 36.2 % (39.0-77.0) Lymphocytes % 52.1 % (15.0-51.0) Monocytes % 7.6 % (0.0-11.0) Eosinophils % 3.1 % (0.0-7.0) Basophils % 0.8 % (0.0-2.0) Nucleated Red Blood Cells % 0.0 /100WBC (0.0-0.0) Immature Granulocytes # 0.010 10^3/ul (0.0-0.031) Neutrophils # 2.3 10^3/ul (1.6-7.5) Lymphocytes # 3.3 10^3/ul (0.8-2.9) Monocytes # 0.5 10^3/ul (0.3-0.9) Eosinophils # 0.2 10^3/ul (0.0-0.5) Basophils # 0.1 10^3/ul (0.0-0.1) Nucleated Red Blood Cells # 0.0 10^3/ul (0.0-0.0) Sodium Level 140 mmol/L (135-144) Potassium Level 4.1 mmol/L (3.5-5.1) Chloride Level 106 mmol/L (97-110) Carbon Dioxide Level 24 mmol/L (21-31) Anion Gap 10 (5-13) Blood Urea Nitrogen 19 mg/dl (7-20) Creatinine 1.27 mg/dl (0.44-1.00) Est Glomerular Filtrat Rate mL/min 47 mL/min (>60) Glucose Level 90 mg/dl (70-220) Calcium Level 9.9 mg/dl (8.4-10.2) Phosphorus Level 6.2 mg/dl (2.5-4.9) Magnesium Level 2.0 mg/dl (1.7-2.5) HARPAL PEDROZA September 27, 2018 11:02
--- NOTE | 2018-09-27 11:03 | PN ---
Date/Time of Note Date/Time of Note DATE: 09/27/18 TIME: 11:03 Objective Vitals Vital Signs Date Temp Pulse Resp B/P (MAP) Pulse Ox O2 O2 Flow FiO2 Time Delivery Rate 09/27/18 79 18 97 21 08:54 09/27/18 98.0 153/77 Room Air 07:21 (102) 09/26/18 5.0 16:33 Intake and Output 09/26/18 09/26/18 09/27/18 1515:00 23:00 07:00 IntakeIntake Total 400 ml BalanceBalance 400 ml Results Result Diagram: 09/27/1872909/27/18729 Medications Medications Current Medications Atorvastatin Calcium (Lipitor) 80 mg DAILY@21 PO Last administered on 09/26/18at 20:09; Admin Dose 80 MG; Start 08/05/18 at 21:00 Miscellaneous Information 1 ea NOTE XX ; Start 08/05/18 at 09:00 Acetaminophen (Tylenol Liquid) 650 mg Q4H PRN PO ELEVATED TEMPERATURE Last administered on 09/01/18at 00:29; Admin Dose 650 MG; Start 08/05/18 at 11:00 Folic Acid (Folic Acid) 1 mg DAILY NGT Last administered on 09/27/18at 09:28; Admin Dose 1 MG; Start 08/09/18 at 09:00 IV Flush (NS 10 ml) 10 ml PRN PRN IV IV PROTOCOL; Start 08/11/18 at 16:30 Labetalol HCl (Labetalol) 10 mg Q4H PRN IV ELEVATED SYSTOLIC BP > 170 Last administered on 08/20/18at 16:54; Admin Dose 10 MG; Start 08/14/18 at 19:00 Sevelamer Carbonate (Renvela) 2.4 gm WITH MEALS GTB Last administered on 09/27/18 09:30; Admin Dose 2.4 GM; Start 08/23/18 at 11:30 Ondansetron HCl (Zofran Inj) 4 mg Q4H PRN IV NAUSEA AND/OR VOMITING Last administered on 09/09/18at 11:21; Admin Dose 4 MG; Start 08/23/18 at 14:30 Sodium Chloride (NS) -To prime the dialy... DIRECTED FOR HD PRN IV HD; Start 08/26/18 at 12:00 Nitroglycerin (Nitroglycerin 2% Oint) 0.5 inch Q6 PRN TD CHEST PAIN; Start 08/27/18 at 00:30 Lorazepam (Ativan) 1 mg Q4H PRN IV ANXIETY Last administered on 08/27/18 04:14; Admin Dose 1 MG; Start 08/27/18 at 04:30 Eye Lubricant (Artificial Tears Oph) 2 drop Q2H PRN BOTH EYES dry eyes Last administered on 09/26/18 06:03; Admin Dose 2 DROP; Start 08/28/18 at 01:30 Morphine Sulfate (morphine) 3 mg Q1H PRN GTB PAIN NOT RELIEVED BY OTHERS Last administered on 09/09/18 09:45; Admin Dose 3 MG; Start 08/29/18 at 12:00 Oxycodone HCl (Roxicodone) 5 mg Q4H PRN PO MODERATE PAIN LEVEL 4-6 Last administered on 09/19/18 13:00; Admin Dose 5 MG; Start 09/01/18 at 10:00 Miscellaneous Information (* Miscellaneous Pharmacy Order) ASPIRIN ORDER WILL ... Q12 XX Last administered on 09/22/18 21:00; Admin Dose 1 EA; Start 09/05/18 at 10:00 Heparin Sodium (Porcine) (Heparin (5000 Units/1ml)) 5,000 unit BID SC Last administered on 09/27/18 09:31; Admin Dose 5,000 UNIT; Start 09/08/18 at 21:00 Hydralazine HCl (Apresoline) 10 mg Q2 PRN IV ELEVATED SYSTOLIC BP Last administered on 09/16/18 15:50; Admin Dose 10 MG; Start 09/12/18 at 16:30 Carvedilol (Coreg) 50 mg BID PO Last administered on 09/27/18 09:29; Admin Dose 50 MG; Start 09/14/18 at 21:00 Amlodipine Besylate (Norvasc) 2.5 mg DAILY PO Last administered on 09/27/18 09:30; Admin Dose 2.5 MG; Start 09/23/18 at 09:00 Aspirin (Aspirin) 81 mg DAILY PO Last administered on 09/27/18 09:28; Admin Dose 81 MG; Start 09/23/18 at 09:00 Clopidogrel Bisulfate (plaVIX) 75 mg DAILY PO Last administered on 09/27/18 09:29; Admin Dose 75 MG; Start 09/23/18 at 09:00 Lansoprazole (Prevacid) 30 mg DAILY@06 PO Last administered on 09/27/18 05:07; Admin Dose 30 MG; Start 09/23/18 at 06:00 Multivit/Ca Carb/ B Cmplx/FA/Prenat (Shalonda-Jaylen) 1 tab DAILY PO Last administered on 09/27/18 09:29; Admin Dose 1 TAB; Start 09/23/18 at 09:00 Furosemide (Lasix) 20 mg DAILY PO Last administered on 09/27/18 09:30; Admin Dose 20 MG; Start 09/26/18 at 09:30 Tiotropium [place] (Spiriva) 1 inh DAILY INH Last administered on 09/27/18 09:38; Admin Dose 1 INH; Start 09/26/18 at 11:30 Fluticasone/ Vilanterol (Breo Ellipta 100-25 Mcg Inh) 1 inh DAILY INH Last administered on 09/27/18 09:33; Admin Dose 1 INH; Start 09/26/18 at 10:30 VTE Prophylaxis Risk score (from Ns)>0 risk: 3 SCD applied (from [facility] [place]): Yes Lines/Catheters IV Catheter Type: Aguilar in Place: No Assessment/Plan Hospital Course Subjective Patient doing well Objective Physical exam General: Patient is laying in bed and answers questions appropriately, has trach Mentation: Patient is alert and oriented 4, Head: Normocephalic atraumatic Eyes: EOMI, pupils reactive to light Neck: Supple, nontender, midline Respiratory: Clear to auscultation bilaterally Cardiovascular: regular rate, no obvious murmurs Gastrointestinal: non-tender to palpation, bowel sounds heard. Neurological: Moves all extremities spontaneously Skin: No new skin lesions Assessment/Plan 1. Acute hypoxic respiratory failure- resolving - Patient doing well on trach collar on 3 Lo2 - Pulm on board and appreciate recommendations. - CM on board for assistance with arranging ENT follow up as outpatient for laser procedure due to presents of stricture/adhesions 2. CAD s/p PCI x3- stable - Cardiology recommendations appreciated. Will need to continue aspirin for life and DAPT for 1 year - s/p emergent Cath 08/05 with successful PTCA and stenting of proximal and mid LAD, PTCA of the large first diagonal and thrombectomy of the LAD - Repeat PCI on 08/07 performed with stenting to LCx - Repeat PCI on 09/04 with stenting ostial/proximal right coronary artery 3. Acute toxic/metabolic encephalopathy- resolved - Patient back to baseline 4. Bilateral CVA- no residual defect - PT/OT on board - Found on MRI, likely thromboembolic secondary to cardiopulmonary arrest per neurology - Continue on aspirin/Plavix and Lipitor 5. Anemia, blood loss and renal disease- stable - Hgb remains stable, transfuse as needed 6. Bilateral Pneumonia- resolved - ID on board and appreciate recommendations. Monitor off antibiotics 7. Septic shock secondary to PNA and bacteremia- resolved - Blood cultures and sputum culture results noted. - ID on board 8. Renal failure now off HD - Nephrology on board and appreciate recommendations. Cr continues to show signs of recovery 9. S/p V-fib cardiac arrest secondary to STEMI - Completed hypothermia protocol 10. Disposition - HHPT/materials/o2 all ready. DC today. HARPAL PEDROZA September 27, 2018 11:03
[2018-09-27 12:32] VITALS: PULSE 91
--- NOTE | 2018-09-27 12:40 | CONS ---
Consult Date/Type/Reason Admit Date/Time Aug 04, 2018 at 23:10 Initial Consult Date 08/05/18 Type of Consult Pulmonary Requesting Provider: HARPAL AGGARWAL MD Date/Time of Note DATE: 09/27/18 TIME: 12:39 Subjective Continues to improve. Less shortness of breath. Objective Vital Signs Date Temp Pulse Resp B/P (MAP) Pulse Ox O2 O2 Flow FiO2 Time Delivery Rate 09/27/18 91 12:32 09/27/18 100 5.0 28 12:31 09/27/18 18 Aerosol 12:31 T Tube 09/27/18 98.0 153/77 07:21 (102) Intake and Output 09/26/18 09/26/18 09/27/18 1515:00 23:00 07:00 IntakeIntake Total 400 ml BalanceBalance 400 ml Exam GENERAL: VITAL SIGNS: per chart NECK: Supple. No JVD or lymphadenopathy. Trach site clean and intact CARDIAC EXAM: S1, S2. No added sounds or murmurs. CHEST: clear bilaterally, No added sounds, rales or wheezes ABDOMEN: Soft, nontender. No guarding or rebound. EXTREMITIES: No cyanosis, clubbing or edema. NEUROLOGIC: Generalized weakness. Vent Setting Ventilator Support Mode: SIMV Fraction of Inspired Oxygen pe: 28 Positive End Expiratory Pressu: 5.0 Results/Medications Result Diagram: 09/27/18 0730 09/27/18 0730 Results 24 hrs Laboratory Tests Test 09/27/18 07:30 White Blood Count 6.4 Red Blood Count 3.62 L Hemoglobin 10.5 L Hematocrit 34.3 L Mean Corpuscular Volume 94.8 Mean Corpuscular Hemoglobin 29.0 Mean Corpuscular Hemoglobin Concent 30.6 L Red Cell Distribution Width 14.6 H Platelet Count 181 Mean Platelet Volume 11.3 H Immature Granulocytes % 0.200 Neutrophils % 36.2 L Lymphocytes % 52.1 H Monocytes % 7.6 Eosinophils % 3.1 Basophils % 0.8 Nucleated Red Blood Cells % 0.0 Immature Granulocytes # 0.010 Neutrophils # 2.3 Lymphocytes # 3.3 H Monocytes # 0.5 Eosinophils # 0.2 Basophils # 0.1 Nucleated Red Blood Cells # 0.0 Sodium Level 140 Potassium Level 4.1 Chloride Level 106 Carbon Dioxide Level 24 Anion Gap 10 Blood Urea Nitrogen 19 Creatinine 1.27 H Est Glomerular Filtrat Rate mL/min 47 L Glucose Level 90 Calcium Level 9.9 Phosphorus Level 6.2 H Magnesium Level 2.0 Medications Current Medications Atorvastatin Calcium (Lipitor) 80 mg DAILY@21 PO Last administered on 09/26/18 20:09; Admin Dose 80 MG; Start 08/05/18 at 21:00 Miscellaneous Information 1 ea NOTE XX ; Start 08/05/18 at 09:00 Acetaminophen (Tylenol Liquid) 650 mg Q4H PRN PO ELEVATED TEMPERATURE Last administered on 09/01/18 00:29; Admin Dose 650 MG; Start 08/05/18 at 11:00 Folic Acid (Folic Acid) 1 mg DAILY NGT Last administered on 09/27/18 09:28; Admin Dose 1 MG; Start 08/09/18 at 09:00 IV Flush (NS 10 ml) 10 ml PRN PRN IV IV PROTOCOL; Start 08/11/18 at 16:30 Labetalol HCl (Labetalol) 10 mg Q4H PRN IV ELEVATED SYSTOLIC BP > 170 Last administered on 08/20/18 16:54; Admin Dose 10 MG; Start 08/14/18 at 19:00 Sevelamer Carbonate (Renvela) 2.4 gm WITH MEALS GTB Last administered on 09/27/18 11:36; Admin Dose 2.4 GM; Start 08/23/18 at 11:30 Ondansetron HCl (Zofran Inj) 4 mg Q4H PRN IV NAUSEA AND/OR VOMITING Last administered on 09/09/18 11:21; Admin Dose 4 MG; Start 08/23/18 at 14:30 Sodium Chloride (NS) -To prime the dialy... DIRECTED FOR HD PRN IV HD; Start 08/26/18 at 12:00 Nitroglycerin (Nitroglycerin 2% Oint) 0.5 inch Q6 PRN TD CHEST PAIN; Start 08/27/18 at 00:30 Lorazepam (Ativan) 1 mg Q4H PRN IV ANXIETY Last administered on 08/27/18 04:14; Admin Dose 1 MG; Start 08/27/18 at 04:30 Eye Lubricant (Artificial Tears Oph) 2 drop Q2H PRN BOTH EYES dry eyes Last administered on 09/26/18 06:03; Admin Dose 2 DROP; Start 08/28/18 at 01:30 Morphine Sulfate (morphine) 3 mg Q1H PRN GTB PAIN NOT RELIEVED BY OTHERS Last administered on 09/09/18 09:45; Admin Dose 3 MG; Start 08/29/18 at 12:00 Oxycodone HCl (Roxicodone) 5 mg Q4H PRN PO MODERATE PAIN LEVEL 4-6 Last administered on 09/19/18 13:00; Admin Dose 5 MG; Start 09/01/18 at 10:00 Miscellaneous Information (* Miscellaneous Pharmacy Order) ASPIRIN ORDER WILL ... Q12 XX Last administered on 09/22/18 21:00; Admin Dose 1 EA; Start 09/05/18 at 10:00 Heparin Sodium (Porcine) (Heparin (5000 Units/1ml)) 5,000 unit BID SC Last administered on 09/27/18 09:31; Admin Dose 5,000 UNIT; Start 09/08/18 at 21:00 Hydralazine HCl (Apresoline) 10 mg Q2 PRN IV ELEVATED SYSTOLIC BP Last administered on 09/16/18 15:50; Admin Dose 10 MG; Start 09/12/18 at 16:30 Carvedilol (Coreg) 50 mg BID PO Last administered on 09/27/18 09:29; Admin Dose 50 MG; Start 09/14/18 at 21:00 Amlodipine Besylate (Norvasc) 2.5 mg DAILY PO Last administered on 09/27/18 09:30; Admin Dose 2.5 MG; Start 09/23/18 at 09:00 Aspirin (Aspirin) 81 mg DAILY PO Last administered on 09/27/18 09:28; Admin Dose 81 MG; Start 09/23/18 at 09:00 Clopidogrel Bisulfate (plaVIX) 75 mg DAILY PO Last administered on 09/27/18 09:29; Admin Dose 75 MG; Start 09/23/18 at 09:00 Lansoprazole (Prevacid) 30 mg DAILY@06 PO Last administered on 09/27/18 05:07; Admin Dose 30 MG; Start 09/23/18 at 06:00 Multivit/Ca Carb/ B Cmplx/FA/Prenat (Shalonda-Jaylen) 1 tab DAILY PO Last administered on 09/27/18 09:29; Admin Dose 1 TAB; Start 09/23/18 at 09:00 Furosemide (Lasix) 20 mg DAILY PO Last administered on 09/27/18at 09:30; Admin Dose 20 MG; Start 09/26/18 at 09:30 Tiotropium Lacon (Spiriva) 1 inh DAILY INH Last administered on 09/27/18at 09:38; Admin Dose 1 INH; Start 09/26/18 at 11:30 Fluticasone/ Vilanterol (Breo Ellipta 100-25 Mcg Inh) 1 inh DAILY INH Last administered on 09/27/18at 09:33; Admin Dose 1 INH; Start 09/26/18 at 10:30 Assessment/Plan Hospital Course (Demo Recall) IMP: 1. s/p Cardiac arrest 2. s/p CA 3. Chronic Resp Failure with moderate oxygen requirements 4. Pneumonia 5. Anemia 6. Renal Failure 7. Anemia RECS: 1. Continue current supportive care 2. lasix as tolerated. 3. TF/Free H20 DC planning. Patient will have PEG tube removed as an outpatient. CHINO ANDERSON MD, [facility] September 27, 2018 12:40
== END 2018-09-27 13:45 | disposition home health service (06) | DRG 3 ==
LOC: E/R 22:12 → ICU 23:10 → 6WM 08-30 17:07 → ICU 09-04 11:25 → TEL 09-04 23:42
PROVIDERS: ADMIT Internal Medicine; ATTEND Internal Medicine
PROC: 02703ZZ Dilation of Coronary Artery, One Artery, Percutaneous Approach (ICD-10-PCS; 2018-08-04)
PROC: 02C03ZZ Extirpation of Matter from Coronary Artery, One Artery, Percutaneous Approach (ICD-10-PCS; 2018-08-04)
PROC: 0BH18EZ Insertion of Endotracheal Airway into Trachea, Via Natural or Artificial Opening Endoscopic (ICD-10-PCS; 2018-08-04)
PROC: 4A023N7 Measurement of Cardiac Sampling and Pressure, Left Heart, Percutaneous Approach (ICD-10-PCS; 2018-08-04)
PROC: B211YZZ Fluoroscopy of Multiple Coronary Arteries using Other Contrast (ICD-10-PCS; 2018-08-04)
PROC: 027034Z Dilation of Coronary Artery, One Artery with Drug-eluting Intraluminal Device, Percutaneous Approach (ICD-10-PCS; principal; 2018-08-04 22:30)
PROC: 5A1955Z Respiratory Ventilation, Greater than 96 Consecutive Hours (ICD-10-PCS; 2018-08-04 22:30)
PROC: 02HV33Z Insertion of Infusion Device into Superior Vena Cava, Percutaneous Approach (ICD-10-PCS; 2018-08-05)
PROC: 027035Z Dilation of Coronary Artery, One Artery with Two Drug-eluting Intraluminal Devices, Percutaneous Approach (ICD-10-PCS; 2018-08-07)
PROC: B211YZZ Fluoroscopy of Multiple Coronary Arteries using Other Contrast (ICD-10-PCS; 2018-08-07)
PROC: 30233N1 Transfusion of Nonautologous Red Blood Cells into Peripheral Vein, Percutaneous Approach (ICD-10-PCS; 2018-08-09)
PROC: 02HV33Z Insertion of Infusion Device into Superior Vena Cava, Percutaneous Approach (ICD-10-PCS; 2018-08-11)
PROC: 5A1D70Z Performance of Urinary Filtration, Intermittent, Less than 6 Hours Per Day (ICD-10-PCS; 2018-08-12)
PROC: 06HY33Z Insertion of Infusion Device into Lower Vein, Percutaneous Approach (ICD-10-PCS; 2018-08-12)
PROC: 0B21XEZ Change Endotracheal Airway in Trachea, External Approach (ICD-10-PCS; 2018-08-17)
PROC: 0DH63UZ Insertion of Feeding Device into Stomach, Percutaneous Approach (ICD-10-PCS; 2018-08-21)
PROC: 0B110F4 Bypass Trachea to Cutaneous with Tracheostomy Device, Open Approach (ICD-10-PCS; 2018-08-22)
PROC: 027034Z Dilation of Coronary Artery, One Artery with Drug-eluting Intraluminal Device, Percutaneous Approach (ICD-10-PCS; 2018-09-04)
PROC: 02713ZZ Dilation of Coronary Artery, Two Arteries, Percutaneous Approach (ICD-10-PCS; 2018-09-04)
PROC: 4A023N7 Measurement of Cardiac Sampling and Pressure, Left Heart, Percutaneous Approach (ICD-10-PCS; 2018-09-04)
PROC: B211YZZ Fluoroscopy of Multiple Coronary Arteries using Other Contrast (ICD-10-PCS; 2018-09-04)
PROC: 0BJ18ZZ Inspection of Trachea, Via Natural or Artificial Opening Endoscopic (ICD-10-PCS; 2018-09-19)
DX: I21.02 ST elevation (STEMI) myocardial infarction involving left anterior descending coronary artery (principal); I46.2 Cardiac arrest due to underlying cardiac condition; I49.01 Ventricular fibrillation; N17.0 Acute kidney failure with tubular necrosis; J96.01 Acute respiratory failure with hypoxia; R65.21 Severe sepsis with septic shock; I63.9 Cerebral infarction, unspecified; G93.41 Metabolic encephalopathy; J15.211 Pneumonia due to Methicillin susceptible Staphylococcus aureus; A41.01 Sepsis due to Methicillin susceptible Staphylococcus aureus; E87.2 Acidosis; E87.4 Mixed disorder of acid-base balance; E46 Unspecified protein-calorie malnutrition; D62 Acute posthemorrhagic anemia; N39.0 Urinary tract infection, site not specified; M62.82 Rhabdomyolysis; I23.7 Postinfarction angina; J95.03 Malfunction of tracheostomy stoma; I25.10 Atherosclerotic heart disease of native coronary artery without angina pectoris; E66.01 Morbid (severe) obesity due to excess calories; Z68.39 Body mass index [BMI] 39.0-39.9, adult; E78.5 Hyperlipidemia, unspecified; E87.6 Hypokalemia; D64.9 Anemia, unspecified; K76.89 Other specified diseases of liver; D69.6 Thrombocytopenia, unspecified; H92.22 Otorrhagia, left ear; E87.70 Fluid overload, unspecified; J01.90 Acute sinusitis, unspecified; H70.93 Unspecified mastoiditis, bilateral; R04.0 Epistaxis; N14.1 Nephropathy induced by other drugs, medicaments and biological substances; T50.8X5A Adverse effect of diagnostic agents, initial encounter; I10 Essential (primary) hypertension; R19.7 Diarrhea, unspecified; R04.1 Hemorrhage from throat; E11.9 Type 2 diabetes mellitus without complications; E87.5 Hyperkalemia; B96.20 Unspecified Escherichia coli [E. coli] as the cause of diseases classified elsewhere; B96.4 Proteus (mirabilis) (morganii) as the cause of diseases classified elsewhere; I22.2 Subsequent non-ST elevation (NSTEMI) myocardial infarction; E83.42 Hypomagnesemia
CPT/HCPCS: 31500; 36430; 36569; 36600; 70450; 70551; 71045; 73600; 74018; 74230; 76705; 76937; 80048; 80053; 80061; 80069; 80076; 80202; 81001; 81240; 82140; 82150; 82550; 82553; 82803; 82962; 83036; 83090; 83605; 83690; 83735; 83880; 83890; 84100; 84439; 84443; 84484; 84703; 85014; 85018; 85025; 85049; 85300; 85302; 85305; 85378; 85384; 85610; 85613; 85651; 85670; 85730; 86038; 86146; 86147; 86592; 86704; 86709; 86803; 86850; 86900; 86901; 86920; 87070; 87075; 87081; 87086; 87340; 89220; 90935; 92526; 92610; 92611; 92928; 92929; 93005; 93306; 93458; 93880; 93971; 94002; 94003; 94640; 94664; 94770; 95819; 96374; 97110; 97116; 97163; 97164; 97167; 97168; 97530; 97535; C1725; C1752; C1757; C1874; C1887; C1894; C9113; C9606; J0360; J0461; J0583; J0690; J0692; J1327; J1644; J1815; J1940; J1956; J2060; J2175; J2250; J2270; J2370; J2405; J2543; J2597; J2765; J2997; J3010; J3370; J3475; J3480; J7030; J7040; J7042; J7050; J7120; L3675; P9016; P9047; Q5105; Q9967

== ENCOUNTER 2018-12-05 21:53 | Emergency (ER) | payer OTHER ==
[~2018-12-05] VITALS: Wt 84.7 kg
[~2018-12-05 21:53] MED LIST: ADV10050 INHALATION; AMLO2.5T78 PO; ASPI-831 PO; ATOR-2 PO; CARV25TA79 PO; CLOP75TA28 PO; FOLI-49 PO; LAS20 PO; NEPH PO; SEVE2.4P3 PO; TIOT18CA INH
--- NOTE | 2018-12-06 01:54 | ERD ---
ER Documentation Chief Complaint Chief Complaint states can't put back tracheostomy inner cannula(norma). no sob HPI This is a 38 female with tracheostomy comes that she can put her in her tracheostomy cannula back in. She denies shortness of breath. Denies any other current complaints. ROS All systems reviewed and are negative except as per history of present illness. Medications Home Meds Active Scripts Sevelamer Carbonate* (Renvela*) 2.4 Gm Powd.pack, 2.4 GM PO WITH MEALS for 30 Days, 1 Refill Prov:HARPAL PEDROZA 09/26/18 Folic Acid* (Folic Acid*) 1 Mg Tablet, 1 MG PO DAILY for 30 Days, #30 TAB 1 Refill Prov:HARPAL PEDROZA 09/26/18 Multivit/Ca Carb/B Cmplx/Fa* (Shalonda-Jaylen*) 1 Tab Tab, 1 TAB PO DAILY for 30 Days, #30 TAB 1 Refill Prov:HARPAL PEDROZA 09/26/18 Salmeterol Xinaf-Fluticasone* (Advair*) 100/50 Diskus Inhaler, 1 INH INHALATION BID, #1 INHALER 1 Refill Alternative: Breo ellipta 100/25mcg #1 inhaler, 30 day supply, 1 puff inhaled daily. Refill #1 Prov:HARPAL PEDROZA 09/26/18 Furosemide (Lasix) 20 Mg Tab, 20 MG PO DAILY for 30 Days, #30 TAB 1 Refill Prov:HARPAL PEDROZA 09/26/18 Clopidogrel Bisulfate (Clopidogrel) 75 Mg Tablet, 75 MG PO DAILY for 30 Days, #30 TAB 5 Refills Prov:HARPAL PEDROZA 09/26/18 Aspirin (Aspirin) 81 Mg Chew, 81 MG PO DAILY for 30 Days, #30 TAB 5 Refills Prov:HARPAL PEDROZA 09/26/18 Carvedilol* (Carvedilol*) 25 Mg Tablet, 50 MG PO BID for 30 Days, #120 TAB 1 Refill Prov:HARPAL PEDROZA 09/26/18 Atorvastatin* (Atorvastatin*) 80 Mg Tablet, 80 MG PO DAILY@21 for 30 Days, #30 TAB 1 Refill Prov:HARPAL PEDROZA 09/26/18 Amlodipine Besylate* (Amlodipine Besylate*) 2.5 Mg Tablet, 2.5 MG PO DAILY for 30 Days, #30 TAB 1 Refill Prov:HARPAL PEDROZA 09/26/18 Tiotropium Bladen* (Spiriva*) 18 Mcg Cap.w.dev, 1 INH INH DAILY for 30 Days, #1 INHALER 1 Refill Prov:HARPAL PEDROZA 09/26/18 Allergies Allergies: Coded Allergies: pineapple (Verified Allergy, Severe, 09/24/18) RASHES Uncoded Allergies: WATERMELLON (Allergy, Severe, 09/24/18) RASHES PMhx/Soc Medical and Surgical Hx: pt denies Surgical Hx History of Surgery: Yes (STENT PLACEMENT ) Anesthesia Reaction: No Hx Neurological Disorder: Yes Hx Respiratory Disorders: No Hx Cardiac Disorders: Yes Hx Psychiatric Problems: No Hx Miscellaneous Medical Probl: Yes (CHEST PAIN , S/P V-FIB CARDIAC ARREST AND STEMI , CAD ) Hx Alcohol Use: No Hx Substance Use: No Hx Tobacco Use: No Smoking Status: Never smoker Physical Exam Vitals Vital Signs Date Temp Pulse Resp B/P (MAP) Pulse Ox O2 O2 Flow FiO2 Time Delivery Rate 12/06/18 94 16 151/82 100 Room Air 01:17 (105) Trach Collar 12/05/18 99.1 94 18 173/94 100 22:00 (120) Physical Exam Const: No acute distress Head: Atraumatic Eyes: Normal Conjunctiva ENT: Normal External Ears, Nose and Mouth. Neck: Full range of motion. No meningismus. Tracheostomy site is clean dry and intact Resp: Clear to auscultation bilaterally Cardio: Regular rate and rhythm, no murmurs Abd: Soft, non tender, non distended. Normal bowel sounds Skin: No petechiae or rashes Back: No midline or flank tenderness Ext: No cyanosis, or edema Neur: Awake and alert Psych: Normal Mood and Affect Procedures/MDM Medical decision makin-year-old female with tracheostomy complication that since been resolved. Clinically stable. Satting well. No complaints of dyspnea. Patient will be discharged home. Departure Diagnosis: Primary Impression: Tracheostomy complication Tracheostomy complication: unspecified Qualified Codes: J95.00 - Unspe cified tracheostomy complication Additional Impression: Tracheostomy care Condition: Stable Patient Instructions: Tracheostomy Care DANIAL MOON Dec 06, 2018 01:54
[2018-12-06 01:55] VITALS: BP 138/84; PULSE 81; RESP 16
== END 2018-12-06 02:15 | disposition home or self-care (01) ==
LOC: E/R 21:53
DX: J95.00 Unspecified tracheostomy complication (principal); I25.10 Atherosclerotic heart disease of native coronary artery without angina pectoris; E11.9 Type 2 diabetes mellitus without complications; Z79.02 Long term (current) use of antithrombotics/antiplatelets; Z79.82 Long term (current) use of aspirin
CPT/HCPCS: 99282